=== PATIENT | female | born 1985 | race Caucasian/White ===

== ENCOUNTER 2016-09-22 20:07 | Emergency (ER) | payer MEDICAID ==
[2016-09-22] MEDS ORDERED: SODIUM CHLORIDE 0.9% 1,000 ML IV ONE (21:51)
[2016-09-22] MEDS ORDERED: cefTRIAXone 1 GM in SODIUM CHLORIDE 0.9% MINIBAG 100 ML IV STA (21:52)
[2016-09-22] MEDS ORDERED: KETOROLAC 60 MG/2 ML VIAL IVP STA (21:52)
[2016-09-22] MEDS ORDERED: ONDANSETRON 4 MG/2 ML VIAL IVP STA (21:52)
[2016-09-22] MEDS ORDERED: ONDANSETRON 4 MG/2 ML VIAL ONE (22:01)
[2016-09-22] MEDS ORDERED: cefTRIAXone 1 GM VIAL ONE (22:01)
[2016-09-22] MEDS ORDERED: KETOROLAC 30 MG/ML VIAL ONE (22:01)
[2016-09-22] MEDS ORDERED: HYDROcod/ACET 5/325 Prepack 6 PO STA (23:14)
[2016-09-22] MEDS ORDERED: HYDROcod/ACET 5/325 Prepack 6 PO ONE (23:30)
== END 2016-09-22 23:40 | disposition home or self-care (01) ==
DX: N30.01 Acute cystitis with hematuria (principal); R11.2 Nausea with vomiting, unspecified

== ENCOUNTER 2017-10-02 11:35 | Emergency (ER) | payer MEDICAID ==
[2017-10-02 12:06] LABS: BILIRUBIN,URINE MODERATE (NEGATIVE); GLUCOSE, URINE (UA) NEGATIVE (NEGATIVE); KETONES,URINE (UA) 15 mg/dL (NEGATIVE); LEUKOCYTE ESTERASE, URINE MODERATE (NEGATIVE); NITRITE,URINE NEGATIVE (NEGATIVE); OCCULT BLOOD,URINE LARGE (NEGATIVE); PH,URINE 5.5 PH (5.0-7.5); PROTEIN,URINE >=300 mg/dL (NEGATIVE); UROBILINOGEN,URINE 0.2 (NORMAL) E.U./dL (NORMAL)
[2017-10-02 12:13] LABS: CLARITY,URINE CLOUDY (CLEAR)
[2017-10-02 12:21] LABS: BACTERIA,URINE Moderate /HPF (None Seen); SQUAMOUS EPITHELIAL CELL,UR FEW Squamous (<= Few)
--- NOTE | 2017-10-02 12:31 | ED Physician Documentation ---
PD HPI ABD PAIN - Stated complaint Stated Complaint: R SIDE PX - Chief complaint Chief Complaint: Abd Pain - History obtained from History obtained from: Patient - History of Present Illness Timing - onset: Last night, Yesterday Timing - details: Gradual onset, Still present, Waxing and waning Quality: Cramping, Aching, Pain Location: RLQ, Suprapubic Radiation: Right flank Improved by: No: Eating Worsened by: Palpation. No: Eating Associated symptoms: Dysuria, Vaginal dc. No: Diarrhea, Constipation, Hematuria , Chest pain Similar symptoms before: Has not had sx before (she thought it was a UTI initially and drinking cranberry juice, but has gotten worse with pain to flank as well.) Recently seen: Not recently seen Review of Systems Constitutional: reports: Myalgias. denies: Fever, Chills Nose: denies: Rhinorrhea / runny nose, Congestion Throat: denies: Sore throat Cardiac: denies: Chest pain / pressure, Palpitations Respiratory: denies: Dyspnea, Cough GI: reports: Abdominal Pain, Nausea. denies: Vomiting, Constipation, Diarrhea : reports: Dysuria, Frequency, Discharge. denies: Vaginal bleeding Skin: denies: Rash Neurologic: reports: Generalized weakness. denies: Focal weakness, Numbness, Altered mental status, Headache PD PAST MEDICAL HISTORY - Past Medical History Cardiovascular: None Respiratory: None Neuro: None Endocrine/Autoimmune: None GI: None : Kidney stones - Past Surgical History Past Surgical History: Yes HEENT: Tonsil/Adenoidectomy - Present Medications Home Medications: Ambulatory Orders Medication Instructions Recorded Confirmed HYDROcod/ACETAM 5/325 [[place] 5/325] 1 - 2 ea PO Q6H PRN #10 tablet 09/22/16 Promethazine [Phenergan] 25 - 50 mg PO Q6H PRN #10 tab 09/22/16 cephALEXin [Cephalexin] 500 mg PO TID #15 tablet 09/22/16 Cephalexin [Keflex] 500 mg PO TID #21 capsule 10/02/17 HYDROcod/ACETAM 5/325 [[place] 5/325] 1 tab PO Q6H PRN #15 tablet 10/02/17 Metronidazole [Flagyl] 500 mg PO BID #14 tablet 10/02/17 Ondansetron HCl [Zofran] 4 mg PO Q6H PRN #20 tablet 10/02/17 - Allergies Allergies/Adverse Reactions: Allergies Allergy/AdvReac Type Severity Reaction Status Date / Time No Known Drug Allergies Allergy Verified 09/22/16 20:16 - Social History Does the pt smoke?: No Smoking Status: Never smoker Does the pt drink ETOH?: No Does the pt have substance abuse?: No - Immunizations Immunizations are current?: Yes - POLST Patient has POLST: No PD ED PE NORMAL - Vitals Vital signs reviewed: Yes - General General: Alert and oriented X 3, Well developed/nourished, Other (appears in pain. ) - HEENT HEENT: Pharynx benign - Neck Neck: Supple, no meningeal sign, No adenopathy - Cardiac Cardiac: RRR, No murmur - Respiratory Respiratory: Clear bilaterally - Abdomen Abdomen: Normal bowel sounds, Soft, Non distended, No organomegaly, Other ( tender lower abd and RLQ area with guarding but no percussion tenderness. Mild left lower tender as well. No referred tenderness from upper abd. ) - Female Female : Other (odorous milky white discharge, without cervicitis nor endocervical discharge. ) - Rectal Rectal: Deferred - Back Back: No CVA TTP - Derm Derm: Normal color, Warm and dry Results - Vitals Vitals: Vital Signs - 24 hr 10/02/17 10/02/17 10/02/17 11:39 14:18 15:56 Temperature 36.6 C 35.6 C L Heart Rate 103 H 72 91 Respiratory 18 12 17 Rate Blood Pressure 121/70 112/76 132/82 H O2 Saturation 97 98 96 Oxygen O2 Source Room air - Labs Labs: Microbiology 10/02/17 15:15 Wet Prep - Final Genital - Cervix Laboratory Tests 10/02/17 10/02/17 10/02/17 11:59 11:59 12:00 WBC 8.5 RBC 4.32 Hgb 14.7 Hct 42.5 MCV 98.2 MCH 33.9 H MCHC 34.5 RDW 13.9 Plt Count 177 MPV 10.5 Neut # 5.8 Lymph # 1.9 [place] # 0.7 Eos # 0.1 Baso # 0.0 Absolute Nucleated RBC 0.00 Nucleated RBC % 0.0 Manual Slide Review Indicated Platelet Estimate NORMAL (130-450,000) Platelet Morphology 1+ GIANT PLATELETS RBC Morph Micro Appear 1+ STOMATOCYTES Sodium Potassium Chloride Carbon Dioxide Anion Gap BUN Creatinine Estimated GFR (MDRD) Glucose Calcium Total Bilirubin AST ALT Alkaline Phosphatase Total Protein Albumin Globulin Albumin/Globulin Ratio Lipase Urine Color DARK YELLOW Urine Clarity CLOUDY Urine pH 5.5 Ur Specific [place] >=1.030 H >=1.030 H Urine Protein >=300 H Urine Glucose (UA) NEGATIVE Urine Ketones 15 H Urine Occult Blood LARGE H Urine Nitrite NEGATIVE Urine Bilirubin MODERATE H Urine Urobilinogen 0.2 (NORMAL) Ur Leukocyte Esterase MODERATE H Urine RBC 11-25 H Urine WBC >25 H Ur Squamous Epith Cells FEW Squamous Urine Bacteria Moderate H Ur Microscopic Review INDICATED Urine HCG, Qual NEGATIVE 10/02/17 12:00 WBC RBC Hgb Hct MCV MCH MCHC RDW Plt Count MPV Neut # Lymph # [place] # Eos # Baso # Absolute Nucleated RBC Nucleated RBC % Manual Slide Review Platelet Estimate Platelet Morphology RBC Morph Micro Appear Sodium 135 Potassium 2.8 L Chloride 101 Carbon Dioxide 26 Anion Gap 8.0 BUN 12 Creatinine 0.7 Estimated GFR (MDRD) 98 Glucose 111 H Calcium 9.0 Total Bilirubin 0.9 AST 37 ALT 33 Alkaline Phosphatase 85 Total Protein 7.3 Albumin 4.0 Globulin 3.3 Albumin/Globulin Ratio 1.2 Lipase 20 L Urine Color Urine Clarity Urine pH Ur Specific [place] Urine Protein Urine Glucose (UA) Urine Ketones Urine Occult Blood Urine Nitrite Urine Bilirubin Urine Urobilinogen Ur Leukocyte Esterase Urine RBC Urine WBC Ur Squamous Epith Cells Urine Bacteria Ur Microscopic Review Urine HCG, Qual - Rads (name of study) abd CT Radiology: Prelim report reviewed (similar/stable appearance right staghorn calculus without hydronephrosis. No acute findings. ) PD MEDICAL DECISION MAKING - ED course Complexity details: reviewed results, considered differential (does have UTI but with history of stones and pain is more to right, so concern for infected stone. Got CT. Also with vaginal discharge by ROS, so will check that as well. ) , d/w patient Departure - Departure Disposition: 01 Home, Self Care Clinical Impression: Abdominal pain Qualifiers: Abdominal location: right lower quadrant Qualified Code(s): R10.31 - Right lower quadrant pain UTI (urinary tract infection) Qualifiers: Urinary tract infection type: acute pyelonephritis Qualified Code(s): N10 - Acute pyelonephritis Vaginitis Qualifiers: Chronicity: acute Qualified Code(s): N76.0 - Acute vaginitis Condition: Stable Record reviewed to determine appropriate education?: Yes Instructions: Abdominal Pain, ED Kidney Infec Female Follow-Up: Celine Munguia ARNP [Primary Care Provider] - Prescriptions: Cephalexin [Keflex] 500 mg PO TID #21 capsule HYDROcod/ACETAM 5/325 [[place] 5/325] 1 tab PO Q6H PRN #15 tablet PRN Reason: Pain Metronidazole [Flagyl] 500 mg PO BID #14 tablet Ondansetron HCl [Zofran] 4 mg PO Q6H PRN #20 tablet PRN Reason: Nausea / Vomiting Comments: The CT scan did not show an obvious cause of the pain. Your urine does show signs of infection significantly enough that it is likely the bladder and kidney and that is what is causing the pain. He has some mild vaginitis but I do not think that is enough to be causing your discomfort. Drink lots of fluids. Use Tylenol or ibuprofen if needed for pains. Add ondansetron if needed for nausea and hydrocodone if needed for worse pain. Use the Keflex for the bladder and kidney infection. We will also start you on metronidazole for the vaginitis. Recheck if not improving over the next couple of days. Cultures for the UTI and vaginal swabs will result in 2-3 days. Discharge Date/Time: 10/02/17 16:01
[2017-10-02] MEDS ORDERED: ONDANSETRON 4 MG/2 ML VIAL IVP STA (12:45)
[2017-10-02] MEDS ORDERED: SODIUM CHLORIDE 0.9% 1,000 ML IV ONE (12:45)
[2017-10-02] MEDS ORDERED: HYDROmorphone 1 MG/ML CARPUJECT IVP STA ×3 (12:46→15:23)
[2017-10-02] MEDS ORDERED: ACETAMINOPHEN 1,000 MG/100 ML 100 ML IV STA (12:49)
[2017-10-02 12:56] LABS: BASOPHILS % (AUTO) 0.4 %; EOSINOPHILS # (AUTO) 0.1 10^3/uL (0.0-0.7); EOSINOPHILS % (AUTO) 0.6 %; HGB - HEMOGLOBIN 14.7 g/dL (12.0-16.0); LYMPHOCYTES # (AUTO) 1.9 10^3/uL (1.5-3.5); LYMPHOCYTES % (AUTO) 22.1 %; MEAN CORPUSCULAR HEMOGLOBIN 33.9 pg (27.0-31.0); MEAN CORPUSCULAR HGB CONC 34.5 g/dL (32.0-36.0); MEAN CORPUSCULAR VOLUME 98.2 fL (81.0-99.0); MEAN PLATELET VOLUME 10.5 fL (7.9-10.8); MONOCYTES # (AUTO) 0.7 10^3/uL (0.0-1.0); MONOCYTES % (AUTO) 7.9 %; NEUTROPHILS # (AUTO) 5.8 10^3/uL (1.5-6.6); PLT - PLATELET COUNT 177 10^3/uL (130-450); RED BLOOD COUNT 4.32 10^6/uL (4.20-5.40); RED CELL DISTRIBUTION WIDTH 13.9 % (12.0-15.0); WHITE BLOOD COUNT 8.5 x10^3/uL (4.8-10.8)
[2017-10-02 13:04] LABS: ALBUMIN/GLOBULIN RATIO 1.2 (1.0-2.2); BILIRUBIN,TOTAL 0.9 mg/dL (0.2-1.0); CREATININE 0.7 mg/dL (0.4-1.0); TOTAL PROTEIN 7.3 g/dL (6.7-8.2)
[2017-10-02 13:07] LABS: HCG UR QUAL NEGATIVE
[2017-10-02 13:13] LABS: PLATELET MORPHOLOGY 1+ GIANT PLATELETS (NORMAL)
[2017-10-02 13:14] LABS: PLATELET ESTIMATE, MANUAL NORMAL (130-450,000) (NORMAL); RBC MORPHOLOGY (MULTIPLE) 1+ STOMATOCYTES (NORMAL)
[2017-10-02] MEDS ORDERED: cefTRIAXone 1 GM VIAL IVP STA (13:30)
--- NOTE | 2017-10-02 13:55 | CT Report ---
EXAM: CT ABDOMEN AND PELVIS (CT KUB) EXAM DATE: 10/02/2017 01:28 PM. CLINICAL HISTORY: Right abd/flank pain onset yesterday; has UTI on UA. COMPARISONS: 05/12/2016. TECHNIQUE: Routine axial helical CT imaging was performed through the abdomen and pelvis without IV c ontrast. Reconstructions: Coronal and sagittal. In accordance with CT protocol optimization, one or more of the following dose reduction techniques w ere utilized for this exam: automated exposure control, adjustment of mA and/or KV based on patient s ize, or use of iterative reconstructive technique. FINDINGS: Lung Bases: 6 mm nodule along the left major fissure is stable, most compatible with a lymph node. No acute abnormalities. Right Kidney/Ureter: Large central, pelvic calcification with mild staghorn configuration has increas ed, maximum coronal dimension 2.4 cm, previously 2 cm. There are 3 separate nonobstructing calculi wi thin the lower pole, mildly increased. Focal area of decreased density within the central upper kidne y measures up to approximately 2.6 cm and is without gross change and suggests parapelvic cysts versu s upper pole caliectasis. Otherwise, there is no aniya hydronephrosis. The proximal ureter is slightl y prominent with minimal periureteral and peripelvic stranding but the pattern is without significant change. Diffuse ureteral dilatation is not confirmed. Subtle 1-2 mm calcification in the region of t he distalmost right ureter and UVJ is demonstrated on the axial series, image 21, coronal image 48 an d sagittal image 69. This is not definitely present previously. This could represent a distal uretera l calculus. A right-sided calculus projecting below that level is unchanged and consistent with a phl ebolith. A calculus projecting more superiorly (axial image 113) was present previously and likely re presents a phlebolith. Left Kidney/Ureter: 1-2 mm nonobstructing mid renal calculus, not definite present previously. No hyd ronephrosis, hydroureter or perinephric stranding. Other Solid Organs: Prominent right hepatic lobe again demonstrated, length 22.5 cm. This likely repr esents a Olivia's lobe (normal variant). Otherwise, noncontrast images of the solid organs are grossl y unremarkable. Gallbladder/Bile Ducts: Subtle layering slight increased density within the gallbladder suggest hussein lithiasis, versus sludge. No surrounding inflammation, gallbladder dilatation or aniya biliary ductal dilatation. Peritoneal Cavity: No free fluid, free air or aniya adenopathy. Bowel is grossly unremarkable. Pelvic Organs: No bladder stones or wall thickening. Noncontrast images of the visualized pelvic orga ns are unremarkable apart from an IUD within the uterus. Vasculature: Unremarkable. Other: None. IMPRESSION: 1. Right nephrolithiasis including a 2.3 cm staghorn type calculus, mildly increased. 2. Central right renal upper pole hypodensity appears similar and may represent parapelvic cysts, subha jasper upper pole caliectasis. Otherwise, no definite hydronephrosis although there is a stable pattern of very mild proximal ureteral prominence and minimal periureteral and peripelvic stranding. 3. 1-2 mm calculus in the region of the distal right ureter and UVJ could represent a distal calculus although substantial diffuse right hydroureteronephrosis is not confirmed. 4. If further evaluation of these findings were indicated, CT urography could be performed. 5. Single tiny nonobstructing left intrarenal calculus. 6. IUD within the uterus. [facility] Referring Provider Line: [phone] SITE ID: [id number]
[2017-10-02] MEDS ORDERED: KETOROLAC 60 MG/2 ML VIAL IVP STA (14:26)
[2017-10-02] MEDS ORDERED: POTASSIUM BICARB 25 MEQ TABLET PO STA (14:26)
[2017-10-02] MEDS: metroNIDAZOLE 250 MG TABLET PO STA ×2 (15:32→15:34)
[2017-10-02 15:57] VITALS: BP 132/82
== END 2017-10-02 16:01 | disposition home or self-care (01) ==
LOC: ED 11:35
DX: N10 Acute pyelonephritis (principal); N76.0 Acute vaginitis; Z87.442 Personal history of urinary calculi
CPT/HCPCS: 36415; 74176; 80053; 81001; 81025; 83690; 85025; 87210; 87491; 87591; 96365; 96375; 96376; 99284; A9270; J0131; J1170; 81003

== ENCOUNTER 2017-10-18 19:36 | Emergency (ER) | payer MEDICAID ==
--- NOTE | 2017-10-18 20:31 | ED Physician Documentation ---
PD HPI ABD PAIN - Stated complaint Stated Complaint: RT SIDE PX - Chief complaint Chief Complaint: Abd Pain - History obtained from History obtained from: Patient - History of Present Illness Timing - onset: Enter time (12:00 (noon)), Today Timing - duration: Hours Timing - details: Abrupt onset, Waxing and waning Pain level now: 10 Quality: Pain Location: RUQ, RLQ Radiation: Right flank Improved by: Laying still Worsened by: Moving Associated symptoms: No: Fever, Nausea, Vomiting Similar symptoms before: Diagnosis (vaginitis, UTI/pyelonephritis) Recently seen: Emergency Dept (T+R last month for similar symptoms, although these are worse) - Additional information Additional information: c/o right-sided abd. pain radiating to right flank since noon today, worse with movement and palpation. She completed courses of flagyl and keflex after T+R last month from this ED for similar, although less intense, symptoms. Review of Systems Constitutional: denies: Fever, Chills, Sweats Cardiac: reports: Reviewed and negative Respiratory: reports: Reviewed and negative GI: reports: Abdominal Pain, Nausea. denies: Vomiting, Constipation, Diarrhea : denies: Dysuria, Frequency, Hematuria Musculoskeletal: denies: Back pain PD PAST MEDICAL HISTORY - Past Medical History Cardiovascular: None Respiratory: None Neuro: None Endocrine/Autoimmune: None GI: None : Kidney stones - Past Surgical History Past Surgical History: Yes HEENT: Tonsil/Adenoidectomy - Present Medications Home Medications: Ambulatory Orders Medication Instructions Recorded Confirmed HYDROcod/ACETAM 5/325 [[place] 5/325] 1 - 2 ea PO Q6H PRN #10 tablet 09/22/16 Promethazine [Phenergan] 25 - 50 mg PO Q6H PRN #10 tab 09/22/16 cephALEXin [Cephalexin] 500 mg PO TID #15 tablet 09/22/16 Cephalexin [Keflex] 500 mg PO TID #21 capsule 10/02/17 HYDROcod/ACETAM 5/325 [[place] 5/325] 1 tab PO Q6H PRN #15 tablet 10/02/17 Metronidazole [Flagyl] 500 mg PO BID #14 tablet 10/02/17 Ondansetron HCl [Zofran] 4 mg PO Q6H PRN #20 tablet 10/02/17 Ciprofloxacin HCl [Cipro] 500 mg PO BID #9 tablet 10/18/17 Hydrocodone/Acetaminophen 1 - 2 each PO Q6HR PRN #14 tablet 10/18/17 [Hydrocodon-Acetaminophen 5-325] - Allergies Allergies/Adverse Reactions: Allergies Allergy/AdvReac Type Severity Reaction Status Date / Time No Known Drug Allergies Allergy Verified 10/18/17 19:48 - Social History Does the pt smoke?: No Smoking Status: Never smoker Does the pt drink ETOH?: No Does the pt have substance abuse?: No - Immunizations Immunizations are current?: Yes - POLST Patient has POLST: No PD ED PE NORMAL - Vitals Vital signs reviewed: Yes - General General: Alert and oriented X 3, Well developed/nourished, Other (appears to be in mild-moderate painful distress) - HEENT HEENT: Moist mucous membranes - Neck Neck: Supple, no meningeal sign - Cardiac Cardiac: RRR, No murmur - Respiratory Respiratory: No respiratory distress, Clear bilaterally - Abdomen Abdomen: Soft, Non tender, Non distended - Back Back: Other (mild right CVA tenderness) - Derm Derm: Normal color, No rash Results - Vitals Vitals: Vital Signs - 24 hr 10/18/17 10/18/17 10/18/17 19:44 21:05 21:51 Temperature 36.3 C L 37.1 C Heart Rate 105 H 82 93 Respiratory 18 18 16 Rate Blood Pressure 128/91 H 130/97 H 122/73 O2 Saturation 100 98 100 10/18/17 10/18/17 22:30 23:31 Temperature Heart Rate 96 74 Respiratory 16 18 Rate Blood Pressure 115/81 H 120/65 O2 Saturation 99 99 Oxygen O2 Source Room air - Labs Labs: Laboratory Tests 10/18/17 10/18/17 10/18/17 20:43 20:43 20:43 WBC 12.5 H RBC 4.64 Hgb 15.0 Hct 45.2 MCV 97.4 MCH 32.3 H MCHC 33.1 RDW 13.3 Plt Count 229 MPV 10.2 Neut # 10.5 H Lymph # 1.2 L [place] # 0.7 Eos # 0.0 Baso # 0.0 Absolute Nucleated RBC 0.00 Nucleated RBC % 0.0 Manual Slide Review Indicated WBC Morphology NORMAL APPEARANCE Platelet Estimate NORMAL (130-450,000) Platelet Morphology 1+ LARGE PLATELETS RBC Morph Micro Appear NORMAL APPEARANCE Sodium 135 Potassium 3.7 Chloride 101 Carbon Dioxide 24 Anion Gap 10.0 BUN 16 Creatinine 0.9 Estimated GFR (MDRD) 74 L Glucose 114 H Calcium 9.5 Total Bilirubin 0.3 AST 22 ALT 21 Alkaline Phosphatase 85 Total Protein 8.0 Albumin 4.8 Globulin 3.2 Albumin/Globulin Ratio 1.5 Lipase 18 L Urine Color DARK YELLOW Urine Clarity HAZY Urine pH 6.0 Ur Specific [place] >=1.030 H Urine Protein 100 H Urine Glucose (UA) NEGATIVE Urine Ketones 15 H Urine Occult Blood LARGE H Urine Nitrite NEGATIVE Urine Bilirubin SMALL H Urine Urobilinogen 0.2 (NORMAL) Ur Leukocyte Esterase TRACE H Urine RBC TNTC H Urine WBC >25 H Ur Squamous Epith Cells FEW Squamous Urine Bacteria Few Urine Mucus Marked Strands Ur Microscopic Review INDICATED Urine Culture Comments INDICATED Urine HCG, Qual NEGATIVE - Rads (name of study) CT A/P Radiology: Prelim report reviewed, See rad report PD MEDICAL DECISION MAKING - ED course Complexity details: reviewed old records, reviewed results, re-evaluated patient , considered differential, d/w patient ED course: On reevaluation, patient appeared comfortable and reported good improvement of her pain, although still with some residual discomfort. Departure - Departure Disposition: 01 Home, Self Care Clinical Impression: Urinary tract infection Condition: Good Instructions: ED UTI Cystitis Female Follow-Up: Celine Munguia ARNP [Primary Care Provider] - Within 3 Days Prescriptions: Hydrocodone/Acetaminophen [Hydrocodon-Acetaminophen 5-325] 1 - 2 each PO Q6HR PRN #14 tablet PRN Reason: Pain Ciprofloxacin HCl [Cipro] 500 mg PO BID #9 tablet Discharge Date/Time: 10/18/17 23:32
[2017-10-18 20:49] LABS: BASOPHILS % (AUTO) 0.3 %; EOSINOPHILS % (AUTO) 0.2 %; LYMPHOCYTES # (AUTO) 1.2 10^3/uL (1.5-3.5); LYMPHOCYTES % (AUTO) 9.7 %; MEAN CORPUSCULAR HEMOGLOBIN 32.3 pg (27.0-31.0); MEAN CORPUSCULAR HGB CONC 33.1 g/dL (32.0-36.0); MEAN CORPUSCULAR VOLUME 97.4 fL (81.0-99.0); MEAN PLATELET VOLUME 10.2 fL (7.9-10.8); MONOCYTES # (AUTO) 0.7 10^3/uL (0.0-1.0); MONOCYTES % (AUTO) 5.4 %; NEUTROPHILS # (AUTO) 10.5 10^3/uL (1.5-6.6); NEUTROPHILS % (AUTO) 84.4 %; PLT - PLATELET COUNT 229 10^3/uL (130-450); RED BLOOD COUNT 4.64 10^6/uL (4.20-5.40); RED CELL DISTRIBUTION WIDTH 13.3 % (12.0-15.0); WHITE BLOOD COUNT 12.5 x10^3/uL (4.8-10.8)
[2017-10-18] MEDS ORDERED: SODIUM CHLORIDE 0.9% 1,000 ML IV STA (20:55)
[2017-10-18] MEDS ORDERED: KETOROLAC 60 MG/2 ML VIAL IVP STA (20:55)
[2017-10-18 20:56] LABS: GLUCOSE, URINE (UA) NEGATIVE (NEGATIVE); KETONES,URINE (UA) 15 mg/dL (NEGATIVE); LEUKOCYTE ESTERASE, URINE TRACE (NEGATIVE); NITRITE,URINE NEGATIVE (NEGATIVE); OCCULT BLOOD,URINE LARGE (NEGATIVE); PROTEIN,URINE 100 mg/dL (NEGATIVE); UROBILINOGEN,URINE 0.2 (NORMAL) E.U./dL (NORMAL)
[2017-10-18 21:00] LABS: ALBUMIN 4.8 g/dL (3.2-5.5); ALBUMIN/GLOBULIN RATIO 1.5 (1.0-2.2); BILIRUBIN,TOTAL 0.3 mg/dL (0.2-1.0); CALCIUM 9.5 mg/dL (8.5-10.3); CREATININE 0.9 mg/dL (0.4-1.0)
[2017-10-18 21:03] LABS: BILIRUBIN,URINE SMALL (NEGATIVE); CLARITY,URINE HAZY (CLEAR); HCG UR QUAL NEGATIVE; ICTOTEST,URINE POSITIVE
[2017-10-18] MEDS ORDERED: IOPAMIDOL-300 100 ML VIAL ONE (21:10)
[2017-10-18 21:15] LABS: BACTERIA,URINE Few /HPF (None Seen); MUCUS,URINE Marked Strands; RBC,URINE TNTC /HPF (0-5); SQUAMOUS EPITHELIAL CELL,UR FEW Squamous (<= Few)
[2017-10-18] MEDS ORDERED: IOPAMIDOL-300 100 ML VIAL IVP ONE (21:28)
[2017-10-18 21:29] LABS: PLATELET ESTIMATE, MANUAL NORMAL (130-450,000) (NORMAL); RBC MORPHOLOGY (MULTIPLE) NORMAL APPEARANCE (NORMAL)
--- NOTE | 2017-10-18 22:14 | CT Report ---
EXAM: CT ABDOMEN AND PELVIS EXAM DATE: 10/18/2017 09:42 PM. CLINICAL HISTORY: Right-sided abdomen pain. COMPARISONS: 10/02/2017. TECHNIQUE: Routine helical CT imaging was performed through the abdomen and pelvis. IV contrast: 100 cc of Isovue-300 . Enteric contrast: No. Reconstructions: Coronal and sagittal. In accordance with CT protocol optimization, one or more of the following dose reduction techniques w ere utilized for this exam: automated exposure control, adjustment of mA and/or KV based on patient s ize, or use of iterative reconstructive technique. FINDINGS: Lung Bases: Unremarkable. Liver: Normal. No masses. Gallbladder/Bile Ducts: Unremarkable. Spleen: Normal. Pancreas: Normal. Adrenal Glands: Normal. Kidneys: Unremarkable left kidney. Stable right staghorn calculus with prominent right renal pelvis a nd calyces and mildly dilated upper ureter. No ureteral stones on either side. Peritoneal Cavity/Bowel: Normal. No free fluid, free air or adenopathy. No masses or acute inflammato ry process. The appendix is well visualized and normal. Pelvic Organs: IUD noted, otherwise unremarkable reproductive organs and bladder. Pelvic phleboliths. Vasculature: No aneurysms or other significant abnormality. Bones: No significant abnormality. Other: Small fat-containing umbilical hernia noted. IMPRESSION: 1. No ureteral stones. 2. Stable right staghorn calculus and lower pole calyceal stones, with prominent right renal pelvis, calyces, and upper ureter. [facility] Referring Provider Line: [phone] SITE ID: [id number]
[2017-10-18] MEDS ORDERED: CIPROFLOXACIN 250 MG TABLET PO STA (23:19)
[2017-10-18] MEDS ORDERED: HYDROcod/ACET 5/325 Prepack 4 PO STA (23:19)
[2017-10-18 23:32] VITALS: BP 120/65
== END 2017-10-18 23:32 | disposition home or self-care (01) ==
LOC: ED 19:36
DX: N39.0 Urinary tract infection, site not specified (principal)
CPT/HCPCS: 36415; 74177; 80053; 81001; 81025; 83690; 85025; 87086; 96361; 96374; 99283; 99284; A9270; Q9967; 81003

== ENCOUNTER 2017-11-27 16:04 | Emergency (ER) | payer MEDICAID ==
[2017-11-27 16:38] LABS: BILIRUBIN,URINE NEGATIVE (NEGATIVE); GLUCOSE, URINE (UA) NEGATIVE (NEGATIVE); KETONES,URINE (UA) 15 mg/dL (NEGATIVE); LEUKOCYTE ESTERASE, URINE NEGATIVE (NEGATIVE); NITRITE,URINE NEGATIVE (NEGATIVE); OCCULT BLOOD,URINE LARGE (NEGATIVE); PH,URINE 5.5 PH (5.0-7.5); PROTEIN,URINE 100 mg/dL (NEGATIVE); UROBILINOGEN,URINE 0.2 (NORMAL) E.U./dL (NORMAL)
[2017-11-27 16:44] LABS: CLARITY,URINE CLOUDY (CLEAR); HCG UR QUAL NEGATIVE
[2017-11-27 16:45] LABS: ALBUMIN 4.2 g/dL (3.2-5.5); ALBUMIN/GLOBULIN RATIO 1.3 (1.0-2.2); CREATININE 0.7 mg/dL (0.4-1.0); TOTAL PROTEIN 7.4 g/dL (6.7-8.2)
[2017-11-27 16:54] LABS: BASOPHILS % (AUTO) 0.6 %; EOSINOPHILS % (AUTO) 0.2 %; HGB - HEMOGLOBIN 13.7 g/dL (12.0-16.0); LYMPHOCYTES # (AUTO) 1.2 10^3/uL (1.5-3.5); LYMPHOCYTES % (AUTO) 14.9 %; MEAN CORPUSCULAR HEMOGLOBIN 33.7 pg (27.0-31.0); MEAN CORPUSCULAR HGB CONC 33.7 g/dL (32.0-36.0); MEAN CORPUSCULAR VOLUME 99.9 fL (81.0-99.0); MEAN PLATELET VOLUME 9.7 fL (7.9-10.8); MONOCYTES # (AUTO) 0.4 10^3/uL (0.0-1.0); MONOCYTES % (AUTO) 4.5 %; NEUTROPHILS # (AUTO) 6.3 10^3/uL (1.5-6.6); NEUTROPHILS % (AUTO) 79.8 %; PLT - PLATELET COUNT 196 10^3/uL (130-450); RED BLOOD COUNT 4.08 10^6/uL (4.20-5.40); RED CELL DISTRIBUTION WIDTH 12.8 % (12.0-15.0); WHITE BLOOD COUNT 7.9 x10^3/uL (4.8-10.8)
[2017-11-27 16:57] LABS: RBC,URINE TNTC /HPF (0-5); SQUAMOUS EPITHELIAL CELL,UR FEW Squamous (<= Few)
[2017-11-27 16:58] LABS: BACTERIA,URINE Many /HPF (None Seen); YEAST,URINE PRESENT
[2017-11-27 17:01] LABS: PLATELET ESTIMATE, MANUAL NORMAL (130-450,000) (NORMAL); RBC MORPHOLOGY (MULTIPLE) NORMAL APPEARANCE (NORMAL)
[2017-11-27] MEDS ORDERED: ONDANSETRON 4 MG/2 ML VIAL IVP STA (17:27)
[2017-11-27] MEDS ORDERED: KETOROLAC 60 MG/2 ML VIAL IVP STA (17:27)
[2017-11-27] MEDS ORDERED: SODIUM CHLORIDE 0.9% 1,000 ML IV ONE (17:27)
[2017-11-27] MEDS ORDERED: HYDROmorphone 2 MG/ML VIAL IVP STA ×2 (17:27→18:30)
[2017-11-27] MEDS ORDERED: cefTRIAXone 1 GM in SODIUM CHLORIDE 0.9% MINIBAG 100 ML IV STA (17:28)
--- NOTE | 2017-11-27 17:29 | ED Physician Documentation ---
PD HPI ABD PAIN - Stated complaint Stated Complaint: R ABD PX - Chief complaint Chief Complaint: Abd Pain - History obtained from History obtained from: Patient - History of Present Illness Timing - onset: Today (31-year-old woman with history of renal colic, diagnosed with staghorn calculus about a month and a half ago. Has not seen a urologist yet. Was doing fine after last course of antibiotics until today and now she has severe sharp right-sided abdominal pain without fevers. She is nauseous.) Review of Systems Constitutional: denies: Fever, Chills GI: reports: Abdominal Pain, Nausea. denies: Vomiting, Constipation, Diarrhea, Hematemesis, Bloody / black stool : reports: Dysuria, Frequency PD PAST MEDICAL HISTORY - Past Medical History Cardiovascular: None Respiratory: None Endocrine/Autoimmune: None GI: None : Kidney stones - Past Surgical History Past Surgical History: Yes HEENT: Tonsil/Adenoidectomy - Present Medications Home Medications: Ambulatory Orders Medication Instructions Recorded Confirmed Ondansetron HCl [Zofran] 4 mg PO Q6H PRN #20 tablet 10/02/17 Ciprofloxacin HCl [Cipro] 500 mg PO BID #14 tablet 11/27/17 Ondansetron HCl [Zofran] 4 mg PO Q6H PRN #10 tablet 11/27/17 Oxycodone HCl/Acetaminophen 1 - 2 tab PO Q4H PRN #15 tablet 11/27/17 [Percocet 5-325 mg Tablet] - Allergies Allergies/Adverse Reactions: Allergies Allergy/AdvReac Type Severity Reaction Status Date / Time No Known Drug Allergies Allergy Verified 11/27/17 16:16 - Social History Does the pt smoke?: No Smoking Status: Never smoker Does the pt drink ETOH?: No Does the pt have substance abuse?: No - Immunizations Immunizations are current?: Yes - POLST Patient has POLST: No PD ED PE NORMAL - Vitals Vital signs reviewed: Yes - General General: Alert and oriented X 3, Other (Appears uncomfortable) - Abdomen Abdomen: Normal bowel sounds, Soft, Non tender - Back Back: No CVA TTP, No spinal TTP - Neuro Neuro: Alert and oriented X 3, Normal speech Results - Vitals Vitals: Vital Signs - 24 hr 11/27/17 11/27/17 16:13 18:55 Temperature 36.5 C Heart Rate 96 90 Respiratory 18 16 Rate Blood Pressure 134/83 H 118/78 O2 Saturation 100 98 Oxygen O2 Source Room air - Labs Labs: Laboratory Tests 11/27/17 11/27/17 11/27/17 16:29 16:29 16:33 WBC 7.9 RBC 4.08 L Hgb 13.7 Hct 40.7 MCV 99.9 H MCH 33.7 H MCHC 33.7 RDW 12.8 Plt Count 196 MPV 9.7 Neut # (Auto) 6.3 Lymph # (Auto) 1.2 L [place] # (Auto) 0.4 Eos # (Auto) 0.0 Baso # (Auto) 0.0 Absolute Nucleated RBC 0.00 Nucleated RBC % 0.0 Manual Slide Review Indicated Platelet Estimate NORMAL (130-450,000) Platelet Morphology RARE GIANT PLATELETS RBC Morph Micro Appear NORMAL APPEARANCE Sodium 139 Potassium 3.4 L Chloride 103 Carbon Dioxide 25 Anion Gap 11.0 BUN 15 Creatinine 0.7 Estimated GFR (MDRD) 98 Glucose 102 H Calcium 9.0 Total Bilirubin 1.0 AST 19 ALT 19 Alkaline Phosphatase 51 Total Protein 7.4 Albumin 4.2 Globulin 3.2 Albumin/Globulin Ratio 1.3 Lipase 23 Urine Color YELLOW Urine Clarity CLOUDY Urine pH 5.5 Ur Specific [place] >=1.030 H Urine Protein 100 H Urine Glucose (UA) NEGATIVE Urine Ketones 15 H Urine Occult Blood LARGE H Urine Nitrite NEGATIVE Urine Bilirubin NEGATIVE Urine Urobilinogen 0.2 (NORMAL) Ur Leukocyte Esterase NEGATIVE Urine RBC TNTC H Urine WBC >25 H Ur Squamous Epith Cells FEW Squamous Urine Bacteria Many H Urine Yeast PRESENT Ur Microscopic Review INDICATED Urine Culture Comments INDICATED Urine HCG, Qual NEGATIVE PD MEDICAL DECISION MAKING - ED course ED course: 31-year-old woman with known staghorn calculus of the right kidney with acute onset pain today. The urinalysis is positive but given the sudden onset of pain , and previous cultures have been negative, this would suggest that the results are from pyuria from the stone itself as opposed to actual pyelonephritis related to the kidney stone. This is corroborated by lack of fever and white count. She was feeling much better after IV meds she was given a copy of the prior CAT scan on CD to aid in follow-up. - Sepsis Event Vital Signs: Vital Signs - 24 hr 11/27/17 11/27/17 16:13 18:55 Temperature 36.5 C Heart Rate 96 90 Respiratory 18 16 Rate Blood Pressure 134/83 H 118/78 O2 Saturation 100 98 Oxygen O2 Source Room air Departure - Departure Disposition: 01 Home, Self Care Clinical Impression: Staghorn renal calculus Condition: Good Record reviewed to determine appropriate education?: Yes Instructions: ED Stone Renal W Colic Prescriptions: Ciprofloxacin HCl [Cipro] 500 mg PO BID #14 tablet Ondansetron HCl [Zofran] 4 mg PO Q6H PRN #10 tablet PRN Reason: Nausea / Vomiting Oxycodone HCl/Acetaminophen [Percocet 5-325 mg Tablet] 1 - 2 tab PO Q4H PRN #15 tablet PRN Reason: Pain Comments: FOLLOWUP WITH UROLOGY DISCUSSED, TAKE COPY OF PRIOR CT ON CD WITH YOU WE WILL CULTURE YOUR URINE. PREVIOUS CULTURES WERE NEGATIVE SO INFECTION IS IN QUESTION, BUT TODAY'S URINAYLSIS IS AGIN POSITIVE, BUT THAT CAN JUST BE FROM INFLAMMATION FROM THE STONE ITSELF. YOUR BLOOD WORK WAS NORMAL WITH NORMAL WHITE COUNT SO IF INFECTION IS PRESENT NOT TOO SEVERE ANYWAY. Forms: Activity restrictions
[2017-11-27 19:23] VITALS: BP 117/85
== END 2017-11-27 19:29 | disposition home or self-care (01) ==
LOC: ED 16:04
DX: N20.0 Calculus of kidney (principal); Z87.442 Personal history of urinary calculi
CPT/HCPCS: 36415; 80053; 81001; 81025; 83690; 85025; 87086; 96365; 96375; 96376; 99283; 99284; J1170; 81003

== ENCOUNTER 2017-12-17 17:42 | Emergency (ER) | payer MEDICAID ==
[2017-12-17 18:17] LABS: GLUCOSE, URINE (UA) NEGATIVE (NEGATIVE); KETONES,URINE (UA) >=80 mg/dL (NEGATIVE); LEUKOCYTE ESTERASE, URINE SMALL (NEGATIVE); NITRITE,URINE NEGATIVE (NEGATIVE); OCCULT BLOOD,URINE MODERATE (NEGATIVE); PROTEIN,URINE 100 mg/dL (NEGATIVE); UROBILINOGEN,URINE 0.2 (NORMAL) E.U./dL (NORMAL)
[2017-12-17 18:30] LABS: CLARITY,URINE CLEAR (CLEAR)
[2017-12-17 18:31] LABS: BILIRUBIN,URINE NEGATIVE (NEGATIVE); HCG UR QUAL NEGATIVE; ICTOTEST,URINE NEGATIVE
[2017-12-17 18:43] LABS: BACTERIA,URINE Few /HPF (None Seen); SQUAMOUS EPITHELIAL CELL,UR FEW Squamous (<= Few)
[2017-12-17 18:44] LABS: BASOPHILS % (AUTO) 0.6 %; EOSINOPHILS % (AUTO) 0.2 %; HGB - HEMOGLOBIN 13.6 g/dL (12.0-16.0); LYMPHOCYTES # (AUTO) 1.3 10^3/uL (1.5-3.5); LYMPHOCYTES % (AUTO) 16.4 %; MEAN CORPUSCULAR HEMOGLOBIN 33.9 pg (27.0-31.0); MEAN CORPUSCULAR HGB CONC 33.9 g/dL (32.0-36.0); MEAN CORPUSCULAR VOLUME 100.3 fL (81.0-99.0); MEAN PLATELET VOLUME 10.2 fL (7.9-10.8); MONOCYTES # (AUTO) 0.4 10^3/uL (0.0-1.0); NEUTROPHILS # (AUTO) 6.1 10^3/uL (1.5-6.6); NEUTROPHILS % (AUTO) 77.8 %; PLT - PLATELET COUNT 155 10^3/uL (130-450); RED BLOOD COUNT 4.01 10^6/uL (4.20-5.40); RED CELL DISTRIBUTION WIDTH 13.2 % (12.0-15.0); WHITE BLOOD COUNT 7.8 x10^3/uL (4.8-10.8)
[2017-12-17 18:51] LABS: CALCIUM 9.4 mg/dL (8.5-10.3); CREATININE 0.7 mg/dL (0.4-1.0)
[2017-12-17 18:52] LABS: ALBUMIN 4.5 g/dL (3.2-5.5); ALBUMIN/GLOBULIN RATIO 1.6 (1.0-2.2); TOTAL PROTEIN 7.3 g/dL (6.7-8.2)
[2017-12-17 18:59] LABS: PLATELET ESTIMATE, MANUAL NORMAL (130-450,000) (NORMAL); PLATELET MORPHOLOGY NORMAL APPEARANCE (NORMAL); RBC MORPHOLOGY (MULTIPLE) 1+ MACROCYTOSIS (NORMAL)
--- NOTE | 2017-12-17 19:04 | ED Physician Documentation ---
PD HPI ABD PAIN - Stated complaint Stated Complaint: SIDE PX - Chief complaint Chief Complaint: Abd Pain - History obtained from History obtained from: Patient - History of Present Illness Timing - onset: Today Timing - duration: Hours Timing - details: Abrupt onset, Still present Quality: Aching, Sharp, Pain Location: RLQ Radiation: Right flank Improved by: No: Eating, Laying still Worsened by: No: Eating, Position Associated symptoms: Nausea, Dysuria, Hematuria, Vaginal dc. No: Fever, Hematemesis, Vaginal bleeding Similar symptoms before: Diagnosis (staghorn calculus right kidney. Has been awaiting appt with Urology (referral then appt time has been long, but has appt next Friday, December 23).) Recently seen: Emergency Dept (similar pain and treated with pain meds and had UA showing possible UTI (but culturew was negative).) Review of Systems Constitutional: denies: Fever, Chills, Myalgias Nose: denies: Rhinorrhea / runny nose, Congestion Throat: denies: Sore throat Cardiac: denies: Chest pain / pressure, Palpitations Respiratory: denies: Dyspnea, Cough GI: reports: Abdominal Pain, Nausea. denies: Abdominal Swelling, Constipation, Diarrhea : reports: Dysuria, Discharge (watery to mucous, has had intermittently in the past.). denies: Vaginal bleeding Musculoskeletal: reports: Back pain. denies: Neck pain Neurologic: denies: Generalized weakness, Focal weakness, Numbness, Near syncope Endocrine: denies: Weight loss PD PAST MEDICAL HISTORY - Past Medical History Cardiovascular: None Respiratory: None Endocrine/Autoimmune: None GI: None : Kidney stones - Past Surgical History Past Surgical History: Yes HEENT: Tonsil/Adenoidectomy - Present Medications Home Medications: Ambulatory Orders Medication Instructions Recorded Confirmed Doxycycline Monohydrate 100 mg PO BID #14 tablet 12/17/17 Naproxen 375 mg PO BID #20 tablet 12/17/17 Oxycodone HCl/Acetaminophen 1 each PO Q6H PRN #20 tablet 12/17/17 [Percocet 5-325 mg Tablet] - Allergies Allergies/Adverse Reactions: Allergies Allergy/AdvReac Type Severity Reaction Status Date / Time No Known Drug Allergies Allergy Verified 11/27/17 16:16 - Social History Does the pt smoke?: No Smoking Status: Never smoker Does the pt drink ETOH?: No Does the pt have substance abuse?: No - Immunizations Immunizations are current?: Yes - POLST Patient has POLST: No PD ED PE NORMAL - Vitals Vital signs reviewed: Yes - General General: Alert and oriented X 3, Well developed/nourished, Other (in marked pain right low abd and flank. ) - HEENT HEENT: Pharynx benign - Neck Neck: Supple, no meningeal sign, No adenopathy - Cardiac Cardiac: RRR, No murmur - Respiratory Respiratory: Clear bilaterally - Abdomen Abdomen: Normal bowel sounds, Soft, Non distended, No organomegaly, Other ( tender right abdomen and flank, without guarding nor percussion tenderness. ) - Female Female : Deferred - Rectal Rectal: Deferred - Derm Derm: Normal color, Warm and dry, No rash - Extremities Extremities: No tenderness to palpate, Normal ROM s pain - Neuro Neuro: Alert and oriented X 3, No motor deficit, Normal speech Results - Vitals Vitals: Vital Signs - 24 hr 12/17/17 12/17/17 12/17/17 17:52 19:26 20:09 Temperature 36.5 C Heart Rate 104 H 100 99 Respiratory 18 22 18 Rate Blood Pressure 132/85 H 131/90 H 124/87 H O2 Saturation 98 98 99 12/17/17 12/17/17 20:48 21:17 Temperature 36.5 C Heart Rate 92 88 Respiratory 16 16 Rate Blood Pressure 123/81 H 126/92 H O2 Saturation 98 100 Oxygen O2 Source Room air - Labs Labs: Microbiology 12/17/17 18:03 Urine Culture - Preliminary Urine,Clean Catch CULTURE IN PROGRESS. RESULTS TO FOLLOW. Laboratory Tests 12/17/17 12/17/17 12/17/17 18:03 18:30 18:30 WBC 7.8 RBC 4.01 L Hgb 13.6 Hct 40.2 MCV 100.3 H MCH 33.9 H MCHC 33.9 RDW 13.2 Plt Count 155 MPV 10.2 Neut # (Auto) 6.1 Lymph # (Auto) 1.3 L [place] # (Auto) 0.4 Eos # (Auto) 0.0 Baso # (Auto) 0.0 Absolute Nucleated RBC 0.00 Nucleated RBC % 0.0 Manual Slide Review Indicated WBC Morphology NORMAL APPEARANCE Platelet Estimate NORMAL (130-450,000) Platelet Morphology NORMAL APPEARANCE RBC Morph Micro Appear 1+ MACROCYTOSIS Sodium 137 Potassium 3.5 Chloride 105 Carbon Dioxide 23 Anion Gap 9.0 BUN 12 Creatinine 0.7 Estimated GFR (MDRD) 98 Glucose 99 Calcium 9.4 Total Bilirubin 1.0 AST 19 ALT 14 Alkaline Phosphatase 50 Total Protein 7.3 Albumin 4.5 Globulin 2.8 Albumin/Globulin Ratio 1.6 Lipase 25 Urine Color YELLOW Urine Clarity CLEAR Urine pH 6.0 Ur Specific [place] >=1.030 H Urine Protein 100 H Urine Glucose (UA) NEGATIVE Urine Ketones >=80 H Urine Occult Blood MODERATE H Urine Nitrite NEGATIVE Urine Bilirubin NEGATIVE Urine Urobilinogen 0.2 (NORMAL) Ur Leukocyte Esterase SMALL H Urine RBC 6-10 H Urine WBC >25 H Ur Squamous Epith Cells FEW Squamous Urine Bacteria Few Ur Microscopic Review INDICATED Urine Culture Comments INDICATED Urine HCG, Qual NEGATIVE PD MEDICAL DECISION MAKING - ED course Complexity details: reviewed old records (keying off prior charts with CT showing staghorn calculus and similar pains from it, I did not do any imaging. ) , reviewed results (She does have UA showing likely UTI, though she says she has had vaginal clear discharge similar to the past, and prior records show she had clue cells/BV in September. Deferred pelvic, but would treat with Doxy and await urine culture (the past 2 recent urine cultures have been negative with similar symptoms). ), re-evaluated patient, considered differential, d/w patient - Sepsis Event Vital Signs: Vital Signs - 24 hr 12/17/17 12/17/17 12/17/17 17:52 19:26 20:09 Temperature 36.5 C Heart Rate 104 H 100 99 Respiratory 18 22 18 Rate Blood Pressure 132/85 H 131/90 H 124/87 H O2 Saturation 98 98 99 12/17/17 12/17/17 20:48 21:17 Temperature 36.5 C Heart Rate 92 88 Respiratory 16 16 Rate Blood Pressure 123/81 H 126/92 H O2 Saturation 98 100 Oxygen O2 Source Room air Departure - Departure Disposition: 01 Home, Self Care Clinical Impression: Right sided abdominal pain, Staghorn renal calculus Urinary tract infection Qualifiers: Urinary tract infection type: acute cystitis Hematuria presence: with hematuria Qualified Code(s): N30.01 - Acute cystitis with hematuria Condition: Stable Record reviewed to determine appropriate education?: Yes Instructions: ED UTI Cystitis Female, ED Stone Renal W Colic Follow-Up: Celine Munguia, ADRIAN [Primary Care Provider] - Prescriptions: Doxycycline Monohydrate 100 mg PO BID #14 tablet Naproxen 375 mg PO BID #20 tablet Oxycodone HCl/Acetaminophen [Percocet 5-325 mg Tablet] 1 each PO Q6H PRN #20 tablet PRN Reason: Pain Comments: Drink lots of fluids. Naproxen twice daily for inflammation and pain. Doxycycline twice daily for infection. Use Tylenol or Percocet if needed for pain. Follow up with urology next Friday as planned. Return sooner if worse. Discharge Date/Time: 12/17/17 21:22
[2017-12-17] MEDS ORDERED: KETOROLAC 60 MG/2 ML VIAL IVP STA (19:12)
[2017-12-17] MEDS ORDERED: ONDANSETRON 4 MG/2 ML VIAL IVP STA (19:12)
[2017-12-17] MEDS ORDERED: SODIUM CHLORIDE 0.9% 1,000 ML IV ONE ×2 (19:12→19:13)
[2017-12-17] MEDS ORDERED: DOXYCYCLINE 100 MG TABLET PO STA (19:13)
[2017-12-17] MEDS ORDERED: MORPHINE 10 MG/ML VIAL IVP STA ×2 (19:13→20:24)
[2017-12-17] MEDS ORDERED: DEXAMETHASONE 10 MG/ML VIAL IVP STA (19:13)
[2017-12-17] MEDS ORDERED: LIDOCAINE-MPF 2% 6 ML in SODIUM CHLORIDE 0.9% 50 ML IV STA (20:24)
[2017-12-17] MEDS ORDERED: oxyCODONE/ACET 5/325 Prepack 4 PO STA (20:24)
[2017-12-17 21:18] VITALS: BP 126/92
== END 2017-12-17 21:22 | disposition home or self-care (01) ==
LOC: ED 17:42
DX: N20.0 Calculus of kidney (principal); N30.01 Acute cystitis with hematuria
CPT/HCPCS: 80053; 81001; 81025; 83690; 85025; 87086; 96361; 96374; 96375; 96376; 99284; A9270; J7040; 81003

== ENCOUNTER 2017-12-26 17:58 | Emergency (ER) | payer MEDICAID ==
[2017-12-26] MEDS ORDERED: MORPHINE 10 MG/ML VIAL IVP STA ×2 (18:28→20:36)
[2017-12-26] MEDS ORDERED: SODIUM CHLORIDE 0.9% 1,000 ML IV ONE (18:28)
[2017-12-26] MEDS ORDERED: LIDOCAINE-MPF 2% 6 ML in SODIUM CHLORIDE 0.9% 50 ML IV STA ×2 (18:28→18:42)
[2017-12-26] MEDS ORDERED: DEXAMETHASONE 10 MG/ML VIAL IVP STA (18:28)
[2017-12-26 18:32] LABS: GLUCOSE, URINE (UA) NEGATIVE (NEGATIVE); KETONES,URINE (UA) 40 mg/dL (NEGATIVE); LEUKOCYTE ESTERASE, URINE TRACE (NEGATIVE); NITRITE,URINE NEGATIVE (NEGATIVE); OCCULT BLOOD,URINE LARGE (NEGATIVE); PH,URINE 5.5 PH (5.0-7.5); PROTEIN,URINE 100 mg/dL (NEGATIVE); UROBILINOGEN,URINE 0.2 (NORMAL) E.U./dL (NORMAL)
--- NOTE | 2017-12-26 18:32 | ED Physician Documentation ---
PD HPI ABD PAIN - Stated complaint Stated Complaint: SIDE PX - Chief complaint Chief Complaint: Abd Pain - History obtained from History obtained from: Patient - History of Present Illness Timing - onset: Other (She has a known staghorn calculus of the right kidney, it has been giving her intermittent pain. She is now scheduled for surgery on January 12 but the pain is really been ramping up over the last day.) Review of Systems Constitutional: reports: Reviewed and negative Cardiac: reports: Reviewed and negative Respiratory: reports: Reviewed and negative GI: reports: Reviewed and negative PD PAST MEDICAL HISTORY - Past Medical History Past Medical History: Yes Cardiovascular: None Respiratory: None Endocrine/Autoimmune: None GI: None : Kidney stones - Past Surgical History Past Surgical History: Yes HEENT: Tonsil/Adenoidectomy - Present Medications Home Medications: Ambulatory Orders Medication Instructions Recorded Confirmed Doxycycline Monohydrate 100 mg PO BID #14 tablet 12/17/17 Naproxen 375 mg PO BID #20 tablet 12/17/17 Oxycodone HCl/Acetaminophen 1 each PO Q6H PRN #20 tablet 12/17/17 [Percocet 5-325 mg Tablet] oxyCODONE [Roxicodone] 10 mg PO Q4H PRN #20 tablet 12/26/17 - Allergies Allergies/Adverse Reactions: Allergies Allergy/AdvReac Type Severity Reaction Status Date / Time No Known Drug Allergies Allergy Verified 12/26/17 18:10 - Social History Does the pt smoke?: No Smoking Status: Never smoker Does the pt drink ETOH?: No Does the pt have substance abuse?: No - Immunizations Immunizations are current?: Yes - POLST Patient has POLST: No PD ED PE NORMAL - Vitals Vital signs reviewed: Yes - General General: Alert and oriented X 3, Other (Definitely appears uncomfortable.) - Abdomen Abdomen: Normal bowel sounds, Soft, Non tender - Extremities Extremities: No edema, No calf tenderness / cord - Neuro Neuro: Alert and oriented X 3, Normal speech Results - Vitals Vitals: Vital Signs - 24 hr 12/26/17 12/26/17 12/26/17 18:05 18:54 19:09 Temperature 36.3 C L Heart Rate 102 H 80 82 Respiratory 20 14 15 Rate Blood Pressure 141/84 H 131/99 H 123/89 H O2 Saturation 100 100 100 12/26/17 20:06 Temperature Heart Rate 84 Respiratory 13 Rate Blood Pressure 116/79 O2 Saturation 99 Oxygen O2 Source Room air - Labs Labs: Laboratory Tests 12/26/17 18:25 Urine Color YELLOW Urine Clarity CLOUDY Urine pH 5.5 Ur Specific [place] >=1.030 H Urine Protein 100 H Urine Glucose (UA) NEGATIVE Urine Ketones 40 H Urine Occult Blood LARGE H Urine Nitrite NEGATIVE Urine Bilirubin NEGATIVE Urine Urobilinogen 0.2 (NORMAL) Ur Leukocyte Esterase TRACE H Urine RBC TNTC H Urine WBC >25 H Ur Squamous Epith Cells FEW Squamous Urine Bacteria Many H Urine Mucus Moderate Strands Urine Yeast PRESENT Ur Microscopic Review INDICATED Urine Culture Comments INDICATED Urine HCG, Qual NEGATIVE PD MEDICAL DECISION MAKING - ED course ED course: She has a known staghorn calculus in the right kidney that has been intermittently very painful for her. Note made of the urinalysis, but every urinalysis in this illness so far has had a negative culture, so this is probably an inflammatory reaction. She was given divided doses of medication including lidocaine, Toradol, takes methadone, and divided doses narcotics with significant improvement in her pain. - Sepsis Event Vital Signs: Vital Signs - 24 hr 12/26/17 12/26/17 12/26/17 18:05 18:54 19:09 Temperature 36.3 C L Heart Rate 102 H 80 82 Respiratory 20 14 15 Rate Blood Pressure 141/84 H 131/99 H 123/89 H O2 Saturation 100 100 100 12/26/17 20:06 Temperature Heart Rate 84 Respiratory 13 Rate Blood Pressure 116/79 O2 Saturation 99 Oxygen O2 Source Room air Departure - Departure Disposition: 01 Home, Self Care Clinical Impression: Staghorn renal calculus, Right sided abdominal pain Condition: Good Record reviewed to determine appropriate education?: Yes Instructions: ED Stone Renal W Colic Prescriptions: oxyCODONE [Roxicodone] 10 mg PO Q4H PRN #20 tablet PRN Reason: Pain Comments: FOLLOWUP WITH THE UROLOGIST SCHEDULED. RETURN IF WORSE
[2017-12-26 18:38] LABS: BILIRUBIN,URINE NEGATIVE (NEGATIVE); ICTOTEST,URINE NEGATIVE
[2017-12-26 18:39] LABS: CLARITY,URINE CLOUDY (CLEAR); HCG UR QUAL NEGATIVE
[2017-12-26 18:53] LABS: BACTERIA,URINE Many /HPF (None Seen); MUCUS,URINE Moderate Strands; RBC,URINE TNTC /HPF (0-5); SQUAMOUS EPITHELIAL CELL,UR FEW Squamous (<= Few); YEAST,URINE PRESENT
[2017-12-26] MEDS ORDERED: HYDROmorphone 2 MG/ML VIAL IVP STA (19:21)
[2017-12-26] MEDS ORDERED: KETOROLAC 60 MG/2 ML VIAL IVP STA (19:48)
[2017-12-26 21:11] VITALS: BP 125/89
== END 2017-12-26 21:16 | disposition home or self-care (01) ==
LOC: ED 17:58
DX: N20.0 Calculus of kidney (principal); R10.9 Unspecified abdominal pain
CPT/HCPCS: 81001; 81025; 87086; 96361; 96365; 96375; 96376; 99284; J1170; J7040; 81003

== ENCOUNTER 2019-10-31 14:00 | Emergency (ER) | payer MEDICAID ==
[2019-10-31] MEDS ORDERED: oxyCODONE 5 MG TABLET PO STA (14:15)
[2019-10-31] MEDS ORDERED: IBUPROFEN 800 MG TABLET PO STA (14:15)
[2019-10-31] MEDS ORDERED: PENICILLIN VK 250 MG TABLET PO STA (14:16)
--- NOTE | 2019-10-31 14:17 | ED Physician Documentation ---
PD HPI HEENT - Stated complaint Stated Complaint: MOUTH PX - Chief complaint Chief Complaint: Heent - History obtained from History obtained from: Patient (33-year-old woman has had severe right upper dental pain for the last couple of days. No fevers.) Review of Systems Constitutional: reports: Reviewed and negative Eyes: reports: Reviewed and negative Ears: reports: Reviewed and negative Nose: reports: Reviewed and negative PD PAST MEDICAL HISTORY - Past Medical History Cardiovascular: None Respiratory: None Endocrine/Autoimmune: None GI: None : Kidney stones - Past Surgical History Past Surgical History: Yes HEENT: Tonsil/Adenoidectomy - Present Medications Home Medications: Ambulatory Orders Medication Instructions Recorded Confirmed Doxycycline Monohydrate 100 mg PO BID #14 tablet 12/17/17 Naproxen 375 mg PO BID #20 tablet 12/17/17 Oxycodone HCl/Acetaminophen 1 each PO Q6H PRN #20 tablet 12/17/17 [Percocet 5-325 mg Tablet] oxyCODONE [Roxicodone] 10 mg PO Q4H PRN #20 tablet 12/26/17 Ibuprofen [Motrin] 800 mg PO Q8H PRN #30 tablet 10/31/19 Oxycodone HCl/Acetaminophen 1 - 2 each PO Q6H PRN #14 tablet 10/31/19 [Percocet 5-325 mg Tablet] Penicillin V Potassium 500 mg PO Q6HR #40 tablet 10/31/19 - Allergies Allergies/Adverse Reactions: Allergies Allergy/AdvReac Type Severity Reaction Status Date / Time No Known Drug Allergies Allergy Verified 12/26/17 18:10 - Social History Does the pt smoke?: No Smoking Status: Never smoker Does the pt drink ETOH?: No Does the pt have substance abuse?: No - Immunizations Immunizations are current?: Yes - POLST Patient has POLST: No PD ED PE NORMAL - Vitals Vital signs reviewed: Yes - General General: Alert and oriented X 3, No acute distress - HEENT HEENT: Other (Generally poor dentition with a very tender tooth to the right maxillary premolar. No drainable abscess. No trismus. No facial swelling.) - Neck Neck: Supple, no meningeal sign, No bony TTP Results - Vitals Vitals: Vital Signs - 24 hr 10/31/19 14:07 Temperature 36.7 C Heart Rate 98 Respiratory 16 Rate Blood Pressure 128/85 H O2 Saturation 99 Oxygen O2 Source Room air Departure - Departure Disposition: 01 Home, Self Care Clinical Impression: Pain due to dental caries Condition: Good Record reviewed to determine appropriate education?: Yes Instructions: ED Tooth Pain Prescriptions: Penicillin V Potassium 500 mg PO Q6HR #40 tablet Ibuprofen [Motrin] 800 mg PO Q8H PRN #30 tablet PRN Reason: PAIN &/OR FEVER Oxycodone HCl/Acetaminophen [Percocet 5-325 mg Tablet] 1 - 2 each PO Q6H PRN #14 tablet PRN Reason: pain Comments: It is very important that you follow-up with a dentist. When it comes to dental problems like yours, the emergency department can only offer a short-term solution to your long-term problem. A couple of low cost options for dental care include: [facility] in [place], calls [phone] for an appointment Or [facility] in [place], call [phone] for an appointment. Do not drink or drive while taking narcotic pain medication. Note that many narcotic pain relievers also contain Tylenol/acetaminophen. Please ensure that your total dose of acetaminophen from all sources does not exceed 3 g (3000 mg) per day. You may get constipated while on this medication. Take a stool softener such as Colace twice a day while you are on it. Also add an [id number] laxative such as senna or MiraLAX on any day that you do not have a bowel movement. If you received a narcotic pain medication or sedative while in the emergency department, do not drive for the next 24 hours.
[2019-10-31 14:37] VITALS: BP 122/78
== END 2019-10-31 14:37 | disposition home or self-care (01) ==
LOC: ED 14:00
DX: K02.9 Dental caries, unspecified (principal)
CPT/HCPCS: 99283; A9270

== ENCOUNTER 2020-07-23 18:22 | Emergency (ER) | payer MEDICAID ==
[2020-07-23 18:58] LABS: MUDS CUTOFF CONCENTRATIONS CUTOFF CONC BELOW:
[2020-07-23] MEDS ORDERED: MAG HYDROX/AL HYDROX/SIMETH 30 ML UDC PO STA (18:59)
[2020-07-23] MEDS ORDERED: LIDOCAINE VISCOUS 2% 15 ML UDC MM STA (18:59)
--- NOTE | 2020-07-23 19:00 | ED Physician Documentation ---
PD HPI ABD PAIN - Stated complaint Stated Complaint: N/V - Chief complaint Chief Complaint: Abd Pain - History obtained from History obtained from: Patient - Additional information Additional information: She developed severe central and left-sided abdominal pain today associated with vomiting and diarrhea. No fevers. She claims no possibility of . She has a history of renal colic with removal of the stone but this is not similar. No other abdominal surgeries. No sick contacts. No fevers. She does use marijuana but not more than once a week she says. Review of Systems Ten Systems: 10 systems reviewed and negative Constitutional: reports: Reviewed and negative Eyes: reports: Reviewed and negative Ears: reports: Reviewed and negative Cardiac: reports: Reviewed and negative Respiratory: reports: Reviewed and negative PD PAST MEDICAL HISTORY - Past Medical History Past Medical History: No Cardiovascular: None Respiratory: None Endocrine/Autoimmune: None GI: None : Kidney stones - Past Surgical History Past Surgical History: Yes HEENT: Tonsil/Adenoidectomy - Present Medications Home Medications: Ambulatory Orders Medication Instructions Recorded Confirmed Doxycycline Monohydrate 100 mg PO BID #14 tablet 12/17/17 Naproxen 375 mg PO BID #20 tablet 12/17/17 Oxycodone HCl/Acetaminophen 1 each PO Q6H PRN #20 tablet 12/17/17 [Percocet 5-325 mg Tablet] oxyCODONE [Roxicodone] 10 mg PO Q4H PRN #20 tablet 12/26/17 Ibuprofen [Motrin] 800 mg PO Q8H PRN #30 tablet 10/31/19 Oxycodone HCl/Acetaminophen 1 - 2 each PO Q6H PRN #14 tablet 10/31/19 [Percocet 5-325 mg Tablet] Penicillin V Potassium 500 mg PO Q6HR #40 tablet 10/31/19 HYDROcod/ACETAM 5/325 [[place] 5/325] 1 - 2 tab PO Q6H PRN #10 tab 07/23/20 Omeprazole 40 mg PO DAILY #30 cap 07/23/20 Ondansetron Odt [Zofran] 4 mg TL Q6H PRN #10 tab 07/23/20 - Allergies Allergies/Adverse Reactions: Allergies Allergy/AdvReac Type Severity Reaction Status Date / Time No Known Drug Allergies Allergy Verified 07/23/20 18:39 - Social History Does the pt smoke?: No Smoking Status: Never smoker Does the pt drink ETOH?: No Does the pt have substance abuse?: No - Immunizations Immunizations are current?: Yes - POLST Patient has POLST: No PD ED PE NORMAL - Vitals Vital signs reviewed: Yes - General General: Alert and oriented X 3, Other (She appears uncomfortable) - HEENT HEENT: PERRL, EOMI - Neck Neck: Supple, no meningeal sign, No bony TTP - Cardiac Cardiac: RRR, No murmur - Respiratory Respiratory: No respiratory distress, Clear bilaterally - Abdomen Abdomen: Other (Mild left-sided abdominal tenderness without surgical signs, normal bowel tones.) - Back Back: No CVA TTP, No spinal TTP - Derm Derm: Normal color, Warm and dry - Extremities Extremities: No edema, No calf tenderness / cord - Neuro Neuro: Alert and oriented X 3, Normal speech Results - Vitals Vitals: Vital Signs - 24 hr 07/23/20 07/23/20 07/23/20 18:39 18:43 20:06 Temperature 37.4 C 37.4 C Heart Rate 100 100 96 Respiratory 16 16 18 Rate Blood Pressure 126/88 H 126/88 H 124/105 H O2 Saturation 100 100 100 Oxygen O2 Source Room air - Labs Labs: Laboratory Tests 07/23/20 07/23/20 07/23/20 18:37 19:10 19:10 WBC 6.5 RBC 3.40 L Hgb 12.8 Hct 37.9 MCV 111.5 H MCH 37.6 H MCHC 33.8 RDW 16.3 H Plt Count 150 MPV 10.5 Sodium 133 L Potassium 3.1 L Chloride 98 L Carbon Dioxide 23 Anion Gap 12.0 BUN 7 Creatinine 0.6 Estimated GFR (MDRD) 115 Glucose 109 H Calcium 8.4 L Total Bilirubin 1.4 H AST 318 H ALT 106 H Alkaline Phosphatase 193 H Total Protein 6.7 Albumin 3.7 Globulin 3.0 Albumin/Globulin Ratio 1.2 Lipase 122 H Urine Color DARK YELLOW Urine Clarity HAZY Urine pH 6.0 Ur Specific [place] >=1.030 H Urine Protein TRACE Urine Glucose (UA) NEGATIVE Urine Ketones 15 H Urine Occult Blood NEGATIVE Urine Nitrite NEGATIVE Urine Bilirubin MODERATE H Urine Urobilinogen 1 (NORMAL) Ur Leukocyte Esterase NEGATIVE Urine RBC 0-5 Urine WBC 11-25 H Ur Squamous Epith Cells MANY Squamous H Urine Bacteria Few Urine Mucus Moderate Strands Ur Microscopic Review INDICATED Urine Culture Comments NOT INDICATED Urine HCG, Qual NEGATIVE Urine Opiates Screen NEGATIVE Ur Oxycodone Screen NEGATIVE Urine Methadone Screen NEGATIVE Ur Propoxyphene Screen NEGATIVE Ur Barbiturates Screen NEGATIVE Ur Tricyclics Screen NEGATIVE Ur Phencyclidine Scrn NEGATIVE Ur Amphetamine Screen NEGATIVE U Methamphetamines Scrn NEGATIVE U Benzodiazepines Scrn NEGATIVE Urine Cocaine Screen NEGATIVE U Cannabinoids Screen POSITIVE H Ethyl Alcohol 07/23/20 19:10 WBC RBC Hgb Hct MCV MCH MCHC RDW Plt Count MPV Sodium Potassium Chloride Carbon Dioxide Anion Gap BUN Creatinine Estimated GFR (MDRD) Glucose Calcium Total Bilirubin AST ALT Alkaline Phosphatase Total Protein Albumin Globulin Albumin/Globulin Ratio Lipase Urine Color Urine Clarity Urine pH Ur Specific [place] Urine Protein Urine Glucose (UA) Urine Ketones Urine Occult Blood Urine Nitrite Urine Bilirubin Urine Urobilinogen Ur Leukocyte Esterase Urine RBC Urine WBC Ur Squamous Epith Cells Urine Bacteria Urine Mucus Ur Microscopic Review Urine Culture Comments Urine HCG, Qual Urine Opiates Screen Ur Oxycodone Screen Urine Methadone Screen Ur Propoxyphene Screen Ur Barbiturates Screen Ur Tricyclics Screen Ur Phencyclidine Scrn Ur Amphetamine Screen U Methamphetamines Scrn U Benzodiazepines Scrn Urine Cocaine Screen U Cannabinoids Screen Ethyl Alcohol < 5.0 - Rads (name of study) CT A/P Radiology: EMP read contemporaneously (Hepatomegaly and prominent fatty infiltration throughout the liver. No splenomegaly or varices. Small amount of ascites.) PD MEDICAL DECISION MAKING - ED course ED course: 34-year-old woman with upper abdominal pain radiating down to both sides associated with vomiting and diarrhea. Differential diagnosis includes colitis, diverticulitis, gastritis, gastroenteritis. Cannabinoid hyperemesis is also considered but says she only uses about once a week. After a GI cocktail she had some relief but incomplete. 34-year-old woman presents with upper abdominal pain radiating to both sides. Fairly benign exam, it is associated with vomiting and diarrhea. She did drink heavily 2 nights ago and looking at the constellation of labs and findings I suspect she has some significant problems with alcoholism noting transaminitis with AST higher than ALT, fatty liver which looks severe on CT, mild pancreatitis. Discussed with her that she needs to immediately and completely cease using alcohol. She is understanding and prescribed medications for the symptoms for now. Departure - Departure Disposition: 01 Home, Self Care Clinical Impression: Alcoholic liver damage Alcoholic gastritis Qualifiers: Chronicity: acute Gastritis bleeding: without bleeding Qualified Code(s): K29.20 - Alcoholic gastritis without bleeding Abdominal pain Qualifiers: Abdominal location: epigastric Qualified Code(s): R10.13 - Epigastric pain Condition: Good Record reviewed to determine appropriate education?: Yes Instructions: ED Cirrhosis Liver, ED Gastritis Prescriptions: HYDROcod/ACETAM 5/325 [[place] 5/325] 1 - 2 tab PO Q6H PRN #10 tab PRN Reason: Pain Omeprazole 40 mg PO DAILY #30 cap Ondansetron Odt [Zofran] 4 mg TL Q6H PRN #10 tab PRN Reason: Nausea / Vomiting Comments: As discussed, looking at the results seems likely that your abdominal pain is a combination of gastritis, alcoholic hepatitis and pancreatitis. I think all of this is probably from alcohol use looking at the constellation of labs and findings. You need to immediately and completely cease using alcohol. Return for new or worsening symptoms. For the next day I would recommend a clear liquid diet only, then on Friday you can slowly start to eat bland foods again. Follow-up with your primary care physician, next available appointment.
[2020-07-23 19:07] LABS: BILIRUBIN,URINE MODERATE (NEGATIVE); GLUCOSE, URINE (UA) NEGATIVE (NEGATIVE); KETONES,URINE (UA) 15 mg/dL (NEGATIVE); LEUKOCYTE ESTERASE, URINE NEGATIVE (NEGATIVE); NITRITE,URINE NEGATIVE (NEGATIVE); OCCULT BLOOD,URINE NEGATIVE (NEGATIVE); PROTEIN,URINE TRACE mg/dL (NEGATIVE); UROBILINOGEN,URINE 1 (NORMAL) E.U./dL (NORMAL)
[2020-07-23 19:12] LABS: CLARITY,URINE HAZY (CLEAR)
[2020-07-23 19:13] LABS: HCG UR QUAL NEGATIVE
[2020-07-23 19:15] LABS: BASOPHILS % (AUTO) 0.3 %; HGB - HEMOGLOBIN 12.8 g/dL (12.0-16.0); LYMPHOCYTES % (AUTO) 9.6 %; MEAN CORPUSCULAR HEMOGLOBIN 37.6 pg (27.0-31.0); MEAN CORPUSCULAR HGB CONC 33.8 g/dL (32.0-36.0); MEAN CORPUSCULAR VOLUME 111.5 fL (81.0-99.0); MEAN PLATELET VOLUME 10.5 fL (7.9-10.8); MONOCYTES % (AUTO) 8.5 %; NEUTROPHILS % (AUTO) 79.3 %; PLT - PLATELET COUNT 150 10^3/uL (130-450); RED CELL DISTRIBUTION WIDTH 16.3 % (12.0-15.0); WHITE BLOOD COUNT 6.5 x10^3/uL (4.8-10.8)
[2020-07-23 19:26] LABS: ALBUMIN 3.7 g/dL (3.2-5.5); ALBUMIN/GLOBULIN RATIO 1.2 (1.0-2.2); BILIRUBIN,TOTAL 1.4 mg/dL (0.2-1.0); CALCIUM 8.4 mg/dL (8.5-10.3); CREATININE 0.6 mg/dL (0.4-1.0); TOTAL PROTEIN 6.7 g/dL (6.7-8.2)
[2020-07-23 19:27] LABS: ABNORMAL LYMPHS % (MANUAL) 0 %; BAND NEUTROPHILS % (MANUAL) 0 %
[2020-07-23 19:27] LABS: BACTERIA,URINE Few /HPF (None Seen); MUCUS,URINE Moderate Strands; RBC,URINE 0-5 /HPF (0-5); SQUAMOUS EPITHELIAL CELL,UR MANY Squamous (<= Few)
[2020-07-23 19:28] LABS: AMPHETAMINE SCREEN,URINE NEGATIVE (NEGATIVE); BENZODIAZEPINES SCREEN, URINE NEGATIVE (NEGATIVE); COCAINE SCREEN URINE NEGATIVE (NEGATIVE); METHADONE SCREEN, URINE NEGATIVE (NEGATIVE); METHAMPHETAMINES SCREEN, URINE NEGATIVE (NEGATIVE); OPIATE SCREEN, URINE NEGATIVE (NEGATIVE); OXYCODONE SCREEN, URINE NEGATIVE (NEGATIVE); PROPOXYPHENE SCREEN, URINE NEGATIVE (NEGATIVE); TRICYCLIC ANTIDEPRESSANT,URINE NEGATIVE (NEGATIVE)
[2020-07-23] MEDS ORDERED: IOVERSOL 320 100 ML VIAL IVP ONE ×2 (19:48→20:08)
[2020-07-23 20:07] VITALS: BP 124/105
[2020-07-23] MEDS ORDERED: ONDANSETRON 4 MG/2 ML VIAL IVP STA (20:08)
--- NOTE | 2020-07-23 20:25 | CT Report ---
PROCEDURE: Abdomen/Pelvis W INDICATIONS: abd pain iv only CONTRAST: IV CONTRAST: Optiray 320 ml: 100 PO CONTRAST: *NO PO CONTRAST TECHNIQUE: After the administration of contrast, 5 mm thick sections acquired from the diaphragms to the sym physis. 5 mm thick coronal and sagittal reformats were acquired. For radiation dose reduction, the following was used: automated exposure control, adjustment of mA and/or kV according to patient size . COMPARISON: None. FINDINGS: Image quality: Excellent. ABDOMEN: Lung bases: Lung bases are clear. Heart size is normal. Solid organs: Liver is enlarged in size at 25.3 cm craniocaudad, and the spleen is normal in length. There is normal enhancement of the liver and spleen, but there is superimposed severe fatty infiltra tion throughout the liver. Gallbladder contains no visualized gallstones but the bile radiodensity w ithin is elevated at 34 Hounsfield units and this may indicate presence of sludge. Biliary system is non dilated. Pancreas enhances normally. No adrenal nodules. Kidneys demonstrate normal size and enhancement, without hydronephrosis. Peritoneum and bowel: Bowel loops demonstrate normal wall thickness and caliber. No free air. Ther e is a small amount of ascites within the hepatorenal space at the right upper quadrant. No abscess i s suspected. Nodes and vessels: No retroperitoneal or mesenteric adenopathy by size criteria. Aorta and inferior vena cava are normal in size. Miscellaneous: No ventral hernias. PELVIS: Genitourinary: Bladder wall thickness is normal. Miscellaneous: No inguinal hernias or adenopathy. Scans ascites can be seen deep within the pelvis. The uterus is anteverted and contains a centrally positioned IUD. Bones: No suspicious bony lesions. No vertebral body compression fractures. IMPRESSION: Hepatomegaly and prominent fatty infiltration throughout the liver. The spleen, however, is not enlarged. Varices are not found, a hepatic mass or evidence of infection is not seen. A slight amount of ascites is present within the hepatorenal space at the right upper quadrant. No si gn of pancreatitis. Anteverted uterus with centrally positioned IUD. Slight ascites present within th e peritoneal space of the deep pelvis. Note is made of relatively high radiodensity of the bile, 34 Hounsfield units, which can indicate pre sence of sludge. No calcified gallstones found. Reviewed by: Hamilton Cobos MD on 07/23/2020 8:24 PM PST Approved by: Hamilton Cobos MD on 07/23/2020 8:24 PM PST Station ID: [id number]
[2020-07-23] MEDS ORDERED: PANTOPRAZOLE 40 MG TABLET PO STA (20:32)
[2020-07-23] MEDS ORDERED: ONDANSETRON ODT 4 MG Prepack 2 TL STA (20:32)
[2020-07-23] MEDS ORDERED: HYDROcod/ACET 5/325 Prepack 4 PO STA (20:32)
[2020-07-23] MEDS ORDERED: POTASSIUM CHLORIDE 20 MEQ TABLET PO STA (20:36)
[2020-07-23 20:50] LABS: BASOPHILS # (MANUAL) 0.1 10^3/uL (0-0.1); BASOPHILS % (MANUAL) 1 %; LYMPHOCYTES # (MANUAL) 1.1 10^3/uL (1.5-3.5); LYMPHOCYTES % (MANUAL) 17 %; MONOCYTES # (MANUAL) 0.7 10^3/uL (0.0-1.0)
[2020-07-23 20:51] LABS: PLATELET ESTIMATE, MANUAL NORMAL (130-450,000) (NORMAL); PLATELET MORPHOLOGY NORMAL APPEARANCE (NORMAL)
[2020-07-23 20:52] LABS: DIFFERENTIAL COMMENT MANUAL DIFFERENTIAL
== END 2020-07-23 20:46 | disposition home or self-care (01) ==
LOC: ED 18:22
DX: K29.20 Alcoholic gastritis without bleeding (principal); K70.0 Alcoholic fatty liver; K85.90 Acute pancreatitis without necrosis or infection, unspecified; F10.20 Alcohol dependence, uncomplicated
CPT/HCPCS: 36415; 74177; 80053; 80306; 80320; 81001; 81025; 83690; 85025; 96374; 99283; 99284; A9270; Q9967; 81003; 87086

== ENCOUNTER 2020-12-02 14:01 | Inpatient (IN) | payer MEDICAID ==
[2020-12-02] MEDS ORDERED: SODIUM CHLORIDE 0.9% 1,000 ML IV STA (14:35)
[2020-12-02] MEDS ORDERED: KETOROLAC 30 MG/ML VIAL IVP STA (14:35)
[2020-12-02] MEDS ORDERED: ONDANSETRON 4 MG/2 ML VIAL IVP STA (14:35)
[2020-12-02] MEDS ORDERED: HYDROmorphone 1 MG/ML CARPUJECT IVP STA ×3 (14:40→16:19)
[2020-12-02 14:43] LABS: BASOPHILS % (AUTO) 0.3 %; EOSINOPHILS % (AUTO) 2.1 %; HCT - HEMATOCRIT 43.9 % (37.0-47.0); LYMPHOCYTES % (AUTO) 3.6 %; MEAN CORPUSCULAR HEMOGLOBIN 36.7 pg (27.0-31.0); MEAN CORPUSCULAR HGB CONC 34.2 g/dL (32.0-36.0); MEAN CORPUSCULAR VOLUME 107.3 fL (81.0-99.0); MEAN PLATELET VOLUME 10.9 fL (7.9-10.8); MONOCYTES % (AUTO) 5.3 %; NEUTROPHILS % (AUTO) 88.5 %; PLT - PLATELET COUNT 137 10^3/uL (130-450); RED BLOOD COUNT 4.09 10^6/uL (4.20-5.40); WHITE BLOOD COUNT 13.3 x10^3/uL (4.8-10.8)
[2020-12-02 14:46] LABS: ABNORMAL LYMPHS % (MANUAL) 0 %
[2020-12-02] MEDS ORDERED: IOVERSOL 320 100 ML VIAL IVP ONE ×2 (14:47→16:02)
--- NOTE | 2020-12-02 14:48 | ED Physician Documentation ---
PD HPI ABD PAIN - Stated complaint Stated Complaint: ABD/LT SIDE PX - Chief complaint Chief Complaint: Abd Pain - History obtained from History obtained from: Patient - History of Present Illness Timing - onset: Today Timing - duration: Hours (3) Timing - details: Abrupt onset Pain level max: 10 Pain level now: 10 Quality: Aching, Pain Location: All over / everywhere Radiation: No: Chest, , Lower back, Left flank, Left shoulder, Right flank, Right shoulder, Upper back Improved by: Other (nothing) Worsened by: Other (nothing) Associated symptoms: Diarrhea (today). No: Fever, Nausea, Vomiting, Hematemesis, Constipation, Melena, Hematochezia, Dysuria, Hematuria Similar symptoms before: Has not had sx before Recently seen: Not recently seen - Additional information Additional information: Patient is a 34-year-old female who presents to the emergency department with generalized abdominal pain today. She states that it hurts everywhere. Unable to describe the pain any further. She states it feels different than her prior history of kidney stones. She does have a history of GERD as well but states this feels different as well. Nothing makes it better. Nothing makes it worse. Patient is tearful. Denies any possibility of . Has not taken anything for the pain. Patient states that she used to drink alcohol heavily, but has quit over the past several months. She states she occasionally has a drink now. Review of Systems Ten Systems: 10 systems reviewed and negative Constitutional: denies: Fever, Chills Ears: denies: Ear pain Nose: denies: Rhinorrhea / runny nose, Congestion Throat: denies: Sore throat Respiratory: denies: Dyspnea, Cough GI: reports: Abdominal Pain, Diarrhea. denies: Nausea, Vomiting, Hematemesis, Bloody / black stool : denies: Dysuria, Frequency, Hesitancy, Discharge, Now EGA Skin: denies: Rash Musculoskeletal: denies: Neck pain, Back pain Neurologic: denies: Headache PD PAST MEDICAL HISTORY - Past Medical History Past Medical History: Yes Cardiovascular: None Respiratory: None Neuro: None Endocrine/Autoimmune: None GI: Other [employer] W[employer]ER: None : Kidney stones HEENT: None Psych: None Musculoskeletal: None Derm: None - Past Surgical History Past Surgical History: Yes HEENT: Tonsil/Adenoidectomy - Present Medications Home Medications: Ambulatory Orders Medication Instructions Recorded Confirmed Omeprazole 40 mg PO DAILY #30 cap 07/23/20 12/02/20 - Allergies Allergies/Adverse Reactions: Allergies Allergy/AdvReac Type Severity Reaction Status Date / Time No Known Drug Allergies Allergy Verified 12/02/20 14:25 - Social History Does the pt smoke?: Yes Smoking Status: Current every day smoker Does the pt drink ETOH?: No Does the pt have substance abuse?: Yes - Immunizations Immunizations are current?: Yes - POLST Patient has POLST: No PD ED PE NORMAL - Vitals Vital signs reviewed: Yes - General General: Alert and oriented X 3, Well developed/nourished, Other (tearful) - HEENT HEENT: PERRL, Moist mucous membranes - Neck Neck: Supple, no meningeal sign - Cardiac Cardiac: RRR, Strong equal pulses - Respiratory Respiratory: No respiratory distress, Clear bilaterally - Abdomen Abdomen: Soft, Non distended, Other (Diffusely tender to palpation. No peritoneal signs) - Back Back: No CVA TTP, No spinal TTP - Derm Derm: Warm and dry - Extremities Extremities: No edema, No calf tenderness / cord - Neuro Neuro: Alert and oriented X 3 - Psych Psych: Normal mood, Normal affect Results - Vitals Vitals: Vital Signs - 24 hr 12/02/20 12/02/20 12/02/20 14:22 14:44 15:43 Temperature 36.9 C 36.5 C Heart Rate 91 108 H 91 Respiratory 22 22 20 Rate Blood Pressure 142/93 H 146/109 H 130/99 H O2 Saturation 97 99 98 12/02/20 17:01 Temperature 36.7 C Heart Rate 93 Respiratory 16 Rate Blood Pressure 133/88 H O2 Saturation 97 Oxygen O2 Source Room air - Labs Labs: Laboratory Tests 12/02/20 12/02/20 12/02/20 14:30 14:30 14:30 WBC 13.3 H RBC 4.09 L Hgb 15.0 Hct 43.9 MCV 107.3 H MCH 36.7 H MCHC 34.2 RDW 13.0 Plt Count 137 MPV 10.9 H Neut # (Auto) Not Reportable Lymph # (Auto) Not Reportable Early # (Auto) Not Reportable Eos # (Auto) Not Reportable Baso # (Auto) Not Reportable Absolute Nucleated RBC Not Reportable Total Counted 100 Band Neuts % (Manual) 2 Abnorm Lymph % (Manual) 0 Nucleated RBC % Not Reportable Neutrophils # (Manual) 12.0 H Lymphocytes # (Manual) 0.8 L Monocytes # (Manual) 0.5 Eosinophils # (Manual) 0.0 Basophils # (Manual) 0.0 Differential Comment MANUAL DIFFERENTIAL WBC Morphology 1+ TOXIC GRANULATION Platelet Estimate NORMAL (130-450,000) Platelet Morphology NORMAL APPEARANCE RBC Morph Micro Appear 2+ MACROCYTOSIS PT INR Sodium 137 Potassium 3.1 L Chloride 98 L Carbon Dioxide 24 Anion Gap 15.0 H BUN 9 Creatinine 0.7 Estimated GFR (MDRD) 96 Glucose 136 H Calcium 9.0 Total Bilirubin 1.2 H AST 61 H ALT 28 Alkaline Phosphatase 95 Total Protein 7.7 Albumin 4.9 Globulin 2.8 Albumin/Globulin Ratio 1.8 Triglycerides 55 Cholesterol 203 H LDL Cholesterol, Calc 93 VLDL Cholesterol 11 HDL Cholesterol 99 LDL/HDL Ratio 0.9 Cholesterol/HDL Ratio 2.1 Lipase 178 H Ethyl Alcohol 12/02/20 12/02/20 14:58 14:58 WBC RBC Hgb Hct MCV MCH MCHC RDW Plt Count MPV Neut # (Auto) Lymph # (Auto) Early # (Auto) Eos # (Auto) Baso # (Auto) Absolute Nucleated RBC Total Counted Band Neuts % (Manual) Abnorm Lymph % (Manual) Nucleated RBC % Neutrophils # (Manual) Lymphocytes # (Manual) Monocytes # (Manual) Eosinophils # (Manual) Basophils # (Manual) Differential Comment WBC Morphology Platelet Estimate Platelet Morphology RBC Morph Micro Appear PT 12.7 H INR 1.1 Sodium Potassium Chloride Carbon Dioxide Anion Gap BUN Creatinine Estimated GFR (MDRD) Glucose Calcium Total Bilirubin AST ALT Alkaline Phosphatase Total Protein Albumin Globulin Albumin/Globulin Ratio Triglycerides Cholesterol LDL Cholesterol, Calc VLDL Cholesterol HDL Cholesterol LDL/HDL Ratio Cholesterol/HDL Ratio Lipase Ethyl Alcohol < 5.0 - Rads (name of study) ct abd/pelvis Radiology: Prelim report reviewed, EMP read contemporaneously, See rad report (1. Acute pancreatitis. 2. Hepatomegaly, hepatic steatosis. ) Right upper quadrant ultrasound Radiology: Prelim report reviewed, EMP read contemporaneously, See rad report (No evidence of gallbladder disease. Hepatomegaly, hepatic steatosis) PD MEDICAL DECISION MAKING - ED course Complexity details: reviewed old records, reviewed results, re-evaluated patient, considered differential, d/w patient, d/w senior solutions consultant ED course: Patient is a 34-year-old female with acute pancreatitis. Received several doses of pain medication and nausea medication. Pain is poorly controlled and nausea is poorly controlled. Given IV fluids and a banana bag. She will need bowel rest, IV fluids and continued pain management. Discussed the case with Dr. Ortiz, hospitalist who accepts This document was made in part using voice recognition software. While efforts are made to proofread this document, sound alike and grammatical errors may occur. Departure - Departure Disposition: 67 [facility] DC/Xfer Clinical Impression: Pancreatitis Qualifiers: Chronicity: acute Pancreatitis type: unspecified pancreatitis type Acute pancreatitis complication: unspecified Qualified Code(s): K85.90 - Acute pancreatitis without necrosis or infection, unspecified Vomiting Qualifiers: Vomiting type: unspecified Vomiting Intractability: intractable Nausea presence: with nausea Qualified Code(s): R11.2 - Nausea with vomiting, unspecified Abdominal pain Qualifiers: Abdominal location: epigastric Qualified Code(s): R10.13 - Epigastric pain Condition: Stable
[2020-12-02 14:55] LABS: ALBUMIN 4.9 g/dL (3.2-5.5); ALBUMIN/GLOBULIN RATIO 1.8 (1.0-2.2); BILIRUBIN,TOTAL 1.2 mg/dL (0.2-1.0); CREATININE 0.7 mg/dL (0.4-1.0); POTASSIUM 3.1 mmol/L (3.5-5.0); TOTAL PROTEIN 7.7 g/dL (6.7-8.2)
[2020-12-02 15:10] LABS: INR 1.1 (0.8-1.2); PT - PROTHROMBIN TIME 12.7 secs (9.9-12.6)
[2020-12-02 15:22] LABS: BAND NEUTROPHILS % (MANUAL) 2 %; LYMPHOCYTES # (MANUAL) 0.8 10^3/uL (1.5-3.5); LYMPHOCYTES % (MANUAL) 6 %; MONOCYTES # (MANUAL) 0.5 10^3/uL (0.0-1.0)
[2020-12-02 15:25] LABS: DIFFERENTIAL COMMENT MANUAL DIFFERENTIAL; PLATELET ESTIMATE, MANUAL NORMAL (130-450,000) (NORMAL); PLATELET MORPHOLOGY NORMAL APPEARANCE (NORMAL); WBC MORPHOLOGY (MULTIPLE) 1+ TOXIC GRANULATION (NORMAL)
[2020-12-02] MEDS ORDERED: PANTOPRAZOLE 40 MG VIAL IVP STA (15:29)
[2020-12-02] MEDS ORDERED: FOLIC ACID INJ 1 MG, THIAMINE INJ 100 MG, MAGNESIUM SULFATE 2 GM, MULTIVITAMIN 10 ML in... IV STA ×5 (15:32)
--- NOTE | 2020-12-02 15:44 | CT Report ---
PROCEDURE: Abdomen/Pelvis W INDICATIONS: diffuse abd pain, sudden onset CONTRAST: IV CONTRAST: Optiray 320 ml: 100 PO CONTRAST: *NO PO CONTRAST TECHNIQUE: After the administration of intravenous contrast, 5 mm thick sections acquired from the diaphragms to the symphysis. 5 mm thick coronal and sagittal reformats were acquired. For radiation dose reducti on, the following was used: automated exposure control, adjustment of mA and/or kV according to angelica ent size. COMPARISON: 07/23/2020 FINDINGS: Image quality: Excellent. ABDOMEN: Lung bases: Lung bases are clear. Heart size is normal. Solid organs: Liver is again noted to be enlarged. The craniocaudal dimension is approximately 24.6 c m. Spleen is normal in size. Mild diffuse hepatic steatosis. Gallbladder is unremarkable. Biliary sy stem is non dilated. Diffuse pancreatic edema with peripancreatic inflammatory change in the adjacent fat. No free air or abscess or pancreatic necrosis identified. No adrenal nodules. Kidneys demonstr ate normal size and enhancement, without hydronephrosis. Peritoneum and bowel: Bowel loops demonstrate normal wall thickness and caliber. No free fluid or a ir. Nodes and vessels: No retroperitoneal or mesenteric adenopathy by size criteria. Aorta and inferior vena cava are normal in size. Miscellaneous: No ventral hernias. PELVIS: Genitourinary: Bladder wall thickness is normal. Miscellaneous: No inguinal hernias or adenopathy. IUD in satisfactory position. Bones: No suspicious bony lesions. No vertebral body compression fractures. IMPRESSION: 1. Acute pancreatitis. 2. Hepatomegaly, hepatic steatosis. Reviewed by: Humble Barrios MD on 12/02/2020 2:42 PM WIN Approved by: Humble Barrios MD on 12/02/2020 2:42 PM WIN Station ID: [id number]
[2020-12-02 15:46] LABS: CHOL/HDL RATIO 2.1 (<4.4); CHOLESTEROL 203 mg/dL; HDL CHOLESTEROL 99 mg/dL; LDL CHOLESTEROL,CALCULATED 93 mg/dL; LDL/HDL RATIO 0.9 (<4.4); TRIGLYCERIDES 55 mg/dL; VLDL CHOLESTEROL 11 mg/dL
[2020-12-02] MEDS ORDERED: PROCHLORPERAZINE 10 MG/2 ML VIAL IVP PRN (16:27)
[2020-12-02] MEDS ORDERED: MORPHINE 2 MG/ML CARPUJECT IVP PRN (16:27)
--- NOTE | 2020-12-02 17:00 | Ultrasound Report ---
PROCEDURE: Abdomen Limited INDICATIONS: elevated LFT, pancreatitis TECHNIQUE: Real-time focused scanning was performed of the abdomen, with image documentation. COMPARISON: CT abdomen and pelvis from the same date FINDINGS: No gallstones or gallbladder wall thickening or fluid around the gallbladder. No sonograph ic Justice sign. No dilated ducts. Common duct measures 3 mm. The liver is enlarged, with increased echogenicity consistent with hepatic steatosis. IMPRESSION: 1. No evidence of gallstone disease. 2. Hepatomegaly, hepatic steatosis. Reviewed by: Humble Barrios MD on 12/02/2020 3:58 PM WIN Approved by: Humble Barrios MD on 12/02/2020 3:58 PM WIN Station ID: [id number]
[2020-12-02 17:14] LABS: MUDS CUTOFF CONCENTRATIONS CUTOFF CONC BELOW:
[2020-12-02 17:17] LABS: BILIRUBIN,URINE NEGATIVE (NEGATIVE); GLUCOSE, URINE (UA) NEGATIVE (NEGATIVE); KETONES,URINE (UA) 40 mg/dL (NEGATIVE); LEUKOCYTE ESTERASE, URINE NEGATIVE (NEGATIVE); NITRITE,URINE NEGATIVE (NEGATIVE); OCCULT BLOOD,URINE NEGATIVE (NEGATIVE); PROTEIN,URINE NEGATIVE (NEGATIVE); UROBILINOGEN,URINE 0.2 (NORMAL) E.U./dL (NORMAL)
[2020-12-02 17:20] LABS: CLARITY,URINE CLEAR (CLEAR)
[2020-12-02 17:26] LABS: AMPHETAMINE SCREEN,URINE NEGATIVE (NEGATIVE); BARBITURATE SCREEN,UR NEGATIVE (NEGATIVE); BENZODIAZEPINES SCREEN, URINE NEGATIVE (NEGATIVE); COCAINE SCREEN URINE NEGATIVE (NEGATIVE); METHADONE SCREEN, URINE NEGATIVE (NEGATIVE); METHAMPHETAMINES SCREEN, URINE NEGATIVE (NEGATIVE); OPIATE SCREEN, URINE POSITIVE (NEGATIVE); OXYCODONE SCREEN, URINE NEGATIVE (NEGATIVE); PROPOXYPHENE SCREEN, URINE NEGATIVE (NEGATIVE); THC CANNABINOID SCREEN, URINE POSITIVE (NEGATIVE); TRICYCLIC ANTIDEPRESSANT,URINE NEGATIVE (NEGATIVE)
[2020-12-02] MEDS: HYDROmorphone 0.5 MG/0.5 ML SYRINGE IVP PRN ×2 (17:49→21:47)
[2020-12-02] MEDS: ONDANSETRON 4 MG/2 ML VIAL IVP PRN (17:50)
[2020-12-02] MEDS: SODIUM CHLORIDE FLUSH 0.9% 10 ML SYRINGE IVP SCH ×2 (17:53→23:45)
[2020-12-02] MEDS: LORazepam 2 MG/ML VIAL IVP PRN (18:19)
[2020-12-02] MEDS: NICOTINE 14 MG PATCH TOP SCH (18:20)
[2020-12-02 18:47] LABS: B. PARAPERTUSSIS- RESP PCR PAN NOT DETECTED; B. PERTUSSIS- RESP PCR PANEL NOT DETECTED; C. PNEUMONIAE- RESP PCR PANEL NOT DETECTED; CORONAVIRUS 229E-RESP PCR NOT DETECTED; CORONAVIRUS HKU1-RESP PCR NOT DETECTED; CORONAVIRUS NL63-RESP PCR NOT DETECTED; CORONAVIRUS OC43-RESP PCR NOT DETECTED; HUMAN METAPNEUMOVIRUS NOT DETECTED; INFLUENZA A- RESP PCR PANEL NOT DETECTED; INFLUENZA B - RESP PCR PANEL NOT DETECTED; M. PNEUMONIAE- RESP PCR PANEL NOT DETECTED; PARAINFLUENZA VIRUS 1 NOT DETECTED; PARAINFLUENZA VIRUS 2 NOT DETECTED; PARAINFLUENZA VIRUS 3 NOT DETECTED; PARAINFLUENZA VIRUS 4 NOT DETECTED; RHINOVIRUS/ENTEROVIRUS NOT DETECTED; RSV- RESP PCR PANEL NOT DETECTED; SARS-CoV-2 -RESP PCR PANEL NOT DETECTED
[2020-12-02] MEDS: POTASSIUM CHLOR 10 MEQ/100 ML 10 MEQ/100 ML BAG IV SCH ×4 (19:12→23:40)
--- NOTE | 2020-12-02 21:42 | HISTORY & PHYSICAL EXAMINATION ---
Chief Complaint - Chief Complaint Chief Complaint: abdominal pain, nausea and vomiting History of Present Illness - Admitted From Admitted From:: [facility] ED - History Obtained From Records Reviewed: yes History obtained from: patient - History of Present Illness HPI Comment/Other: Patient is a 34-year-old female with medical history significant for peptic ulcer, GERD, renal calculi, alcohol abuse who presented to the ED with complaint of severe epigastric, left upper quadrant abdominal pain, nausea and vomiting. Symptoms started today around 11 AM when she woke up from sleep. She last drank alcohol yesterday. She reports having about 4 drinks. In the ED work-up included a CT of the abdomen pelvis which showed diffuse pancreatic edema with peripancreatic inflammatory changes in the adjacent fat. It also showed an enlarged liver. She is being admitted for further management of pancreatitis. At bedside she is very somnolent. She falls asleep midsentence. She currently rates her abdominal pain 5 out of 10. She denies chest pain, dyspnea, fever or chills. She was nauseous and last vomited in the ED. 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 Social History Notes: She resides at home with her children and boyfriend. She drinks 2-4 drinks unspecified daily. She smokes about 1/4 pack of cigarettes daily and has been smoking for 15 years. She uses marijuana. - POLST Patient has POLST: No POLST Status: Full Code Meds/Allgy - Home Medications Home Medications: Ambulatory Orders Medication Instructions Recorded Confirmed Omeprazole 40 mg PO DAILY #30 cap 07/23/20 12/02/20 - Allergies Allergies/Adverse Reactions: Allergies Allergy/AdvReac Type Severity Reaction Status Date / Time No Known Drug Allergies Allergy Verified 12/02/20 14:25 Review of Systems - Constitutional Constitutional: reports: Fatigue. denies: Fever, Chills - Eyes Eyes: denies: Pain, Dipolpia - Ears, Nose & Throat Ears, Nose & Throat: denies: Ear pain, Sore throat - Cardiovascular Cariovascular: denies: Edema, Lightheadedness, Syncope, Exertional dyspnea - Respiratory Respiratory: denies: Cough, Wheezing, SOB at rest, SOB with exertion - Gastrointestinal Gastrointestinal: reports: Abdominal pain, Nausea, Vomiting, Reflux/heartburn. denies: Abdominal distention - Genitourinary Genitourinary: denies: Dysuria, Frequency, Urgency, Hematuria - Musculoskeletal Musculoskeletal: denies: Muscle pain, Back pain, Muscle aches - Integumentary Integumentary: denies: Rash, Pruritis, Lesions - Neurological Neurological: denies: General weakness, Focal weakness, Headache - Psychiatric Psychiatric: denies: Depression, Anxiety - Endocrine Endocrine: denies: Polyuria, Polydypsia - Hematologic/Lymphatic Hematologic/Lymphatic: denies: Anemia, Bruising, Petechiae Prior Level of Functionality: She is independent of activities of daily living Exam - Vital Signs Vital Signs: Vital Signs x48h Temp Pulse Pulse Resp BP BP Pulse Ox 12/02/20 19:37 36.5 C 95 20 126/98 H 99 12/02/20 17:21 36.6 C 94 22 134/84 H 100 12/02/20 17:01 36.7 C 93 16 133/88 H 97 12/02/20 15:43 36.5 C 91 20 130/99 H 98 12/02/20 14:44 108 H 22 146/109 H 99 12/02/20 14:22 36.9 C 91 22 142/93 H 97 - Physical Exam General Appearance: positive: Moderate distress, Other (Somnolent but readily arousable to tactile and verbal stimuli) Eyes Bilateral: positive: PERRL, EOMI ENT: positive: No signs of dehydration Neck: positive: No JVD, Trachea midline Respiratory: positive: Chest non-tender, Breath sounds nml. negative: Wheezes, Rales, Rhonchi Cardiovascular: positive: Regular rate & rhythm, No murmur Abdomen: positive: Nml bowel sounds, No distention, Tenderness. negative: Guarding, Rebound Back: positive: Nml inspection Skin: positive: Color nml, No rash, Warm, Dry Extremities: positive: Non-tender, Full ROM, Nml appearance, No pedal edema Neurologic/Psychiatric: positive: Oriented x3, Mood/affect nml Conclusion/Plan - Problem List (1) Pancreatitis Conclusion/Plan: Likely secondary to alcohol abuse. CT scan of the abdomen pelvis showed pancreatic edema and peripancreatic inflammatory changes consistent with pancreatitis. Patient made n.p.o. IV hydration with normal saline. Pain management as needed. Qualifiers: Chronicity: acute Pancreatitis type: unspecified pancreatitis type Acute pancreatitis complication: unspecified Qualified Code(s): K85.90 - Acute pancreatitis without necrosis or infection, unspecified (2) Alcohol abuse Conclusion/Plan: CIWA protocol initiated (3) GERD (gastroesophageal reflux disease) Conclusion/Plan: Protonix 40 mg p.o. daily (4) Tobacco abuse Conclusion/Plan: Nicotine patch 14 mg daily ordered. - Lab Results Fish Bones: 12/02/20 14:30 12/02/20 14:30 Core Measures - Anticipated LOS I expect patient to be DC'd or transferred within 96 hours.: Yes - DVT/VTE - Prophylaxis VTE/DVT Device ordered at admit?: Yes
[2020-12-03] MEDS: SODIUM CHLORIDE FLUSH 0.9% 10 ML SYRINGE IVP PRN ×7 (00:02→14:39)
[2020-12-03] MEDS: ONDANSETRON 4 MG/2 ML VIAL IVP PRN ×2 (00:02→08:14)
[2020-12-03] MEDS: HYDROmorphone 0.5 MG/0.5 ML SYRINGE IVP PRN ×7 (00:02→18:15)
[2020-12-03] MEDS: LORazepam 2 MG/ML VIAL IVP PRN ×2 (04:15→18:15)
[2020-12-03 05:59] LABS: BASOPHILS % (AUTO) 0.3 %; EOSINOPHILS % (AUTO) 0.3 %; HCT - HEMATOCRIT 40.7 % (37.0-47.0); HGB - HEMOGLOBIN 13.7 g/dL (12.0-16.0); LYMPHOCYTES # (AUTO) 0.7 10^3/uL (1.5-3.5); LYMPHOCYTES % (AUTO) 7.8 %; MEAN CORPUSCULAR HEMOGLOBIN 36.7 pg (27.0-31.0); MEAN CORPUSCULAR HGB CONC 33.7 g/dL (32.0-36.0); MEAN CORPUSCULAR VOLUME 109.1 fL (81.0-99.0); MONOCYTES # (AUTO) 0.8 10^3/uL (0.0-1.0); MONOCYTES % (AUTO) 8.3 %; NEUTROPHILS # (AUTO) 7.8 10^3/uL (1.5-6.6); PLT - PLATELET COUNT 105 10^3/uL (130-450); RED BLOOD COUNT 3.73 10^6/uL (4.20-5.40); WHITE BLOOD COUNT 9.4 x10^3/uL (4.8-10.8)
[2020-12-03 06:16] LABS: ALBUMIN 3.8 g/dL (3.2-5.5); ALBUMIN/GLOBULIN RATIO 1.5 (1.0-2.2); BILIRUBIN,TOTAL 1.8 mg/dL (0.2-1.0); CALCIUM 8.3 mg/dL (8.5-10.3); CREATININE 0.5 mg/dL (0.4-1.0); POTASSIUM 3.4 mmol/L (3.5-5.0); TOTAL PROTEIN 6.4 g/dL (6.7-8.2)
[2020-12-03] MEDS: SODIUM CHLORIDE FLUSH 0.9% 10 ML SYRINGE IVP SCH ×2 (08:14→17:30)
[2020-12-03] MEDS: NICOTINE 14 MG PATCH TOP SCH (08:17)
[2020-12-03] MEDS: PANTOPRAZOLE 40 MG TABLET PO SCH (08:17)
[2020-12-03] MEDS ORDERED: MULTIVITAMIN 10 ML, FOLIC ACID INJ 1 MG, THIAMINE INJ 100 MG, MAGNESIUM SULFATE 2 GM in... IV SCH ×5 (09:00)
--- NOTE | 2020-12-03 20:20 | PROVIDER PROGRESS NOTE ---
Assessment/Plan - Problem List (1) Pancreatitis Qualifiers: Chronicity: acute Pancreatitis type: unspecified pancreatitis type Acute pancreatitis complication: unspecified Qualified Code(s): K85.90 - Acute pancreatitis without necrosis or infection, unspecified Assessment/Plan: Continue IV hydration. Continue pain management. Advance diet to full liquid in the morning. (2) Alcohol abuse Assessment/Plan: On CIWA protocol (3) GERD (gastroesophageal reflux disease) Assessment/Plan: Protonix 40 mg p.o. daily (4) Tobacco abuse Assessment/Plan: Nicotine patch 14 mg daily. - Current Meds Current Meds: Current Medications Generic Name Dose Route Start Last Admin Trade Name Freq PRN Reason Stop Dose Admin Hydromorphone HCl 0.5 mg 12/02/20 16:27 12/03/20 18:15 Hydromorphone 0.5 Mg/0.5 Ml Syringe IVP 0.5 mg Q2H PRN Administration Pain 8 to 10 Multivitamins 10 ml/ Folic 1,015.2 mls @ 100 mls/hr 12/03/20 09:00 12/03/20 19:11 Acid 1 mg/ Thiamine HCl 100 mg IV Infused / Magnesium Sulfate 2 gm/ DAILY LUCY Infusion Sodium Chloride Lorazepam 2 mg 12/02/20 18:03 12/03/20 18:15 Lorazepam 2 Mg/Ml Vial IVP 2 mg Q30M PRN Administration CIWA >8 Protocol Nicotine 1 patch 12/02/20 18:05 12/03/20 08:17 Nicotine 14 Mg Patch TOP 1 patch DAILY LUCY Administration Ondansetron HCl 4 mg 12/02/20 16:27 12/03/20 08:14 Ondansetron 4 Mg/2 Ml Vial IVP 4 mg Q6HR PRN Administration Nausea / Vomiting Pantoprazole Sodium 40 mg 12/03/20 09:00 12/03/20 08:17 Pantoprazole 40 Mg Tablet PO 40 mg DAILY LUCY Administration Sodium Chloride 10 ml 12/02/20 16:27 12/03/20 14:39 Sodium Chloride Flush 0.9% 10 Ml Syringe IVP 10 ml PRN PRN Administration NEEDED PER PROVIDER ORDERS Sodium Chloride 10 ml 12/02/20 17:00 12/03/20 17:30 Sodium Chloride Flush 0.9% 10 Ml Syringe IVP Not Given 0100,0900,1700 LUCY - Lab Result Fish Bone Diagrams: 12/03/20 05:50 12/03/20 05:50 - Additional Planning My Orders: My Active Orders 12/03/20 09:00 Pantoprazole [Protonix] 40 mg PO DAILY Subjective - Subjective Patient Reports: Other (Resting comfortably in bed. Sonolent by readily arousable to verbal stimuli. Reports 6/10 abd pain. Mildly tremulous. Denies any other complains.) Objective Vital Signs: Vital Signs - 24 hr 12/02/20 12/03/20 12/03/20 23:50 04:26 08:05 Temperature 36.4 C L 36.7 C 37.1 C Heart Rate [ 99 100 107 H Brachial] Respiratory 18 20 18 Rate Blood Pressure 136/86 H 132/89 H 136/78 H [Right Brachial artery] O2 Saturation 98 97 99 12/03/20 12/03/20 14:29 15:52 Temperature 98.7 C H 37.1 C Heart Rate [ 97 98 Brachial] Respiratory 17 20 Rate Blood Pressure 139/84 H 125/87 H [Right Brachial artery] O2 Saturation 98 100 Oxygen O2 Source Room air I&O (Last 24 Hrs): Intake and Output Totals x24h 12/01/20 12/02/20 12/03/20 23:59 23:59 23:59 Intake Total 2358.533 1115.2 Output Total 550 Balance 2358.533 565.2 General: Alert, Oriented x3, Mild distress, Moderate distress HEENT: PERRLA, EOMI Neck: Supple, No JVD Neuro: Alert, Non Focal, Oriented Times 3 Cardiovascular: Regular rate, No murmurs Respiratory: Chest non-tender, No respiratory distress, Breath sounds nml Abdomen: Normal bowel sounds, Soft, Other (moderate tenderness) Extremities: No clubbing, No edema, No tenderness/swelling Skin: No rashes, No breakdown - Results Results: Laboratory Results WBC 9.4 x10^3/uL (4.8-10.8) 12/03/20 05:50 RBC 3.73 10^6/uL (4.20-5.40) L 12/03/20 05:50 Hgb 13.7 g/dL (12.0-16.0) 12/03/20 05:50 Hct 40.7 % (37.0-47.0) 12/03/20 05:50 MCV 109.1 fL (81.0-99.0) H 12/03/20 05:50 MCH 36.7 pg (27.0-31.0) H 12/03/20 05:50 MCHC 33.7 g/dL (32.0-36.0) 12/03/20 05:50 RDW 13.0 % (12.0-15.0) 12/03/20 05:50 Plt Count 105 10^3/uL (130-450) L 12/03/20 05:50 MPV 11.0 fL (7.9-10.8) H 12/03/20 05:50 Neut # (Auto) 7.8 10^3/uL (1.5-6.6) H 12/03/20 05:50 Lymph # (Auto) 0.7 10^3/uL (1.5-3.5) L 12/03/20 05:50 [place] # (Auto) 0.8 10^3/uL (0.0-1.0) 12/03/20 05:50 Eos # (Auto) 0.0 10^3/uL (0.0-0.7) 12/03/20 05:50 Baso # (Auto) 0.0 10^3/uL (0.0-0.1) 12/03/20 05:50 Absolute Nucleated RBC 0.00 x10^3/uL 12/03/20 05:50 Total Counted 100 12/02/20 14:30 Band Neuts % (Manual) 2 % (0-10) 12/02/20 14:30 Abnorm Lymph % (Manual) 0 % 12/02/20 14:30 Nucleated RBC % 0.0 /100WBC 12/03/20 05:50 Neutrophils # (Manual) 12.0 10^3/uL (1.5-6.6) H 12/02/20 14:30 Lymphocytes # (Manual) 0.8 10^3/uL (1.5-3.5) L 12/02/20 14:30 Monocytes # (Manual) 0.5 10^3/uL (0.0-1.0) 12/02/20 14:30 Eosinophils # (Manual) 0.0 10^3/uL (0-0.7) 12/02/20 14:30 Basophils # (Manual) 0.0 10^3/uL (0-0.1) 12/02/20 14:30 Differential Comment MANUAL DIFFERENTIAL 12/02/20 14:30 WBC Morphology 1+ TOXIC GRANULATION (NORMAL) 12/02/20 14:30 Platelet Estimate NORMAL (130-450,000) (NORMAL) 12/02/20 14:30 Platelet Morphology NORMAL APPEARANCE (NORMAL) 12/02/20 14:30 RBC Morph Micro Appear 1+ ANISOCYTOSIS (NORMAL) 2+ MACROCYTOSIS (NORMAL) 12/02/20 14:30 RBC Morph Micro Appear 1+ ANISOCYTOSIS (NORMAL) 2+ MACROCYTOSIS (NORMAL) 12/02/20 14:30 PT 12.7 secs (9.9-12.6) H 12/02/20 14:58 INR 1.1 (0.8-1.2) 12/02/20 14:58 Sodium 138 mmol/L (135-145) 12/03/20 05:50 Potassium 3.4 mmol/L (3.5-5.0) L 12/03/20 05:50 Chloride 105 mmol/L (101-111) 12/03/20 05:50 Carbon Dioxide 22 mmol/L (21-32) 12/03/20 05:50 Anion Gap 11.0 (6-13) 12/03/20 05:50 BUN 7 mg/dL (6-20) 12/03/20 05:50 Creatinine 0.5 mg/dL (0.4-1.0) 12/03/20 05:50 Estimated GFR (MDRD) 142 (>89) 12/03/20 05:50 Glucose 101 mg/dL (70-100) H 12/03/20 05:50 Calcium 8.3 mg/dL (8.5-10.3) L 12/03/20 05:50 Total Bilirubin 1.8 mg/dL (0.2-1.0) H 12/03/20 05:50 AST 32 IU/L (10-42) 12/03/20 05:50 ALT 18 IU/L (10-60) 12/03/20 05:50 Alkaline Phosphatase 78 IU/L (42-121) 12/03/20 05:50 Total Protein 6.4 g/dL (6.7-8.2) L 12/03/20 05:50 Albumin 3.8 g/dL (3.2-5.5) 12/03/20 05:50 Globulin 2.6 g/dL (2.1-4.2) 12/03/20 05:50 Albumin/Globulin Ratio 1.5 (1.0-2.2) 12/03/20 05:50 Triglycerides 55 mg/dL (-149) 12/02/20 14:30 Cholesterol 203 mg/dL (-199) H 12/02/20 14:30 LDL Cholesterol, Calc 93 mg/dL (-129) 12/02/20 14:30 VLDL Cholesterol 11 mg/dL 12/02/20 14:30 HDL Cholesterol 99 mg/dL (60-) 12/02/20 14:30 LDL/HDL Ratio 0.9 (<4.4) 12/02/20 14:30 Cholesterol/HDL Ratio 2.1 (<4.4) 12/02/20 14:30 Lipase 123 U/L (22-51) H 12/03/20 05:50 Urine Color YELLOW 12/02/20 17:13 Urine Clarity CLEAR (CLEAR) 12/02/20 17:13 Urine pH 7.0 PH (5.0-7.5) 12/02/20 17:13 Ur Specific [place] 1.010 (1.002-1.030) 12/02/20 17:13 Urine Protein NEGATIVE mg/dL (NEGATIVE) 12/02/20 17:13 Urine Glucose (UA) NEGATIVE mg/dL (NEGATIVE) 12/02/20 17:13 Urine Ketones 40 mg/dL (NEGATIVE) H 12/02/20 17:13 Urine Occult Blood NEGATIVE (NEGATIVE) 12/02/20 17:13 Urine Nitrite NEGATIVE (NEGATIVE) 12/02/20 17:13 Urine Bilirubin NEGATIVE (NEGATIVE) 12/02/20 17:13 Urine Urobilinogen 0.2 (NORMAL) E.U./dL (NORMAL) 12/02/20 17:13 Ur Leukocyte Esterase NEGATIVE (NEGATIVE) 12/02/20 17:13 Ur Microscopic Review NOT INDICATED 12/02/20 17:13 Urine Culture Comments NOT INDICATED 12/02/20 17:13 Nasal Adenovirus (PCR) NOT DETECTED 12/02/20 16:05 Nasal B. parapertussis DNA (PCR) NOT DETECTED 12/02/20 16:05 Nasal Coronavir 229E PCR NOT DETECTED 12/02/20 16:05 Nasal Coronavir HKU1 PCR NOT DETECTED 12/02/20 16:05 Nasal Coronavir NL63 PCR NOT DETECTED 12/02/20 16:05 Nasal Coronavir OC43 PCR NOT DETECTED 12/02/20 16:05 Nasal Enterovir/Rhinovir PCR NOT DETECTED 12/02/20 16:05 Nasal Influenza B PCR NOT DETECTED 12/02/20 16:05 Nasal Influenza A PCR NOT DETECTED 12/02/20 16:05 Nasal Parainfluen 1 PCR NOT DETECTED 12/02/20 16:05 Nasal Parainfluen 2 PCR NOT DETECTED 12/02/20 16:05 Nasal Parainfluen 3 PCR NOT DETECTED 12/02/20 16:05 Nasal Parainfluen 4 PCR NOT DETECTED 12/02/20 16:05 Nasal RSV (PCR) NOT DETECTED 12/02/20 16:05 Nasal B.pertussis DNA PCR NOT DETECTED 12/02/20 16:05 Nasal C.pneumoniae (PCR) NOT DETECTED 12/02/20 16:05 [place] Human Metapneumo PCR NOT DETECTED 12/02/20 16:05 Nasal M.pneumoniae (PCR) NOT DETECTED 12/02/20 16:05 Nasal SARS-CoV-2 (PCR) NOT DETECTED 12/02/20 16:05 Urine Opiates Screen POSITIVE (NEGATIVE) H 12/02/20 17:13 Ur Oxycodone Screen NEGATIVE (NEGATIVE) 12/02/20 17:13 Urine Methadone Screen NEGATIVE (NEGATIVE) 12/02/20 17:13 Ur Propoxyphene Screen NEGATIVE (NEGATIVE) 12/02/20 17:13 Ur Barbiturates Screen NEGATIVE (NEGATIVE) 12/02/20 17:13 Ur Tricyclics Screen NEGATIVE (NEGATIVE) 12/02/20 17:13 Ur Phencyclidine Scrn NEGATIVE (NEGATIVE) 12/02/20 17:13 Ur Amphetamine Screen NEGATIVE (NEGATIVE) 12/02/20 17:13 U Methamphetamines Scrn NEGATIVE (NEGATIVE) 12/02/20 17:13 U Benzodiazepines Scrn NEGATIVE (NEGATIVE) 12/02/20 17:13 Urine Cocaine Screen NEGATIVE (NEGATIVE) 12/02/20 17:13 U Cannabinoids Screen POSITIVE (NEGATIVE) H 12/02/20 17:13 Ethyl Alcohol < 5.0 mg/dL 06/19/21 14:58 - Procedures Procedures: Procedures MANUAL ASSIST DELIV NEC (11/14/14) ABX Reporting Has patient been on IV antibiotics over the past 48 hours?: No
[2020-12-04] MEDS: LORazepam 2 MG/ML VIAL IVP PRN ×4 (00:09→21:29)
[2020-12-04] MEDS: SODIUM CHLORIDE FLUSH 0.9% 10 ML SYRINGE IVP SCH ×3 (00:10→17:06)
[2020-12-04] MEDS: HYDROmorphone 0.5 MG/0.5 ML SYRINGE IVP PRN ×6 (00:10→22:43)
[2020-12-04 05:53] LABS: BASOPHILS % (AUTO) 0.5 %; EOSINOPHILS # (AUTO) 0.1 10^3/uL (0.0-0.7); EOSINOPHILS % (AUTO) 1.5 %; HCT - HEMATOCRIT 38.8 % (37.0-47.0); HGB - HEMOGLOBIN 13.1 g/dL (12.0-16.0); LYMPHOCYTES # (AUTO) 1.1 10^3/uL (1.5-3.5); LYMPHOCYTES % (AUTO) 16.7 %; MEAN CORPUSCULAR HEMOGLOBIN 37.1 pg (27.0-31.0); MEAN CORPUSCULAR HGB CONC 33.8 g/dL (32.0-36.0); MEAN CORPUSCULAR VOLUME 109.9 fL (81.0-99.0); MEAN PLATELET VOLUME 11.1 fL (7.9-10.8); MONOCYTES # (AUTO) 0.5 10^3/uL (0.0-1.0); MONOCYTES % (AUTO) 7.8 %; NEUTROPHILS # (AUTO) 4.8 10^3/uL (1.5-6.6); NEUTROPHILS % (AUTO) 72.9 %; PLT - PLATELET COUNT 104 10^3/uL (130-450); RED BLOOD COUNT 3.53 10^6/uL (4.20-5.40); RED CELL DISTRIBUTION WIDTH 12.6 % (12.0-15.0); WHITE BLOOD COUNT 6.6 x10^3/uL (4.8-10.8)
[2020-12-04 06:03] LABS: ALBUMIN 3.3 g/dL (3.2-5.5); ALBUMIN/GLOBULIN RATIO 1.1 (1.0-2.2); BILIRUBIN,TOTAL 1.4 mg/dL (0.2-1.0); CALCIUM 8.1 mg/dL (8.5-10.3); CREATININE 0.5 mg/dL (0.4-1.0); POTASSIUM 3.6 mmol/L (3.5-5.0); TOTAL PROTEIN 6.2 g/dL (6.7-8.2)
[2020-12-04] MEDS: ONDANSETRON 4 MG/2 ML VIAL IVP PRN ×2 (06:26→15:11)
[2020-12-04] MEDS: SODIUM CHLORIDE FLUSH 0.9% 10 ML SYRINGE IVP PRN ×3 (06:26→12:45)
[2020-12-04] MEDS: PANTOPRAZOLE 40 MG TABLET PO SCH (08:33)
[2020-12-04] MEDS: polyethylene glycoL 3350 17 GM PACKET PO SCH (08:33)
[2020-12-04] MEDS: NICOTINE 14 MG PATCH TOP SCH (08:34)
[2020-12-04] MEDS: SODIUM CHLORIDE 0.9% 1,000 ML IV SCH ×2 (10:07→21:29)
--- NOTE | 2020-12-04 19:19 | PROVIDER PROGRESS NOTE ---
Assessment/Plan - Problem List (1) Pancreatitis Qualifiers: Chronicity: acute Pancreatitis type: unspecified pancreatitis type Acute pancreatitis complication: unspecified Qualified Code(s): K85.90 - Acute pancreatitis without necrosis or infection, unspecified Assessment/Plan: Continue IV hydration. Continue pain management. Advance diet to regular diet in the morning. (2) Alcohol abuse Assessment/Plan: On CIWA protocol (3) GERD (gastroesophageal reflux disease) Assessment/Plan: Protonix 40 mg p.o. daily (4) Tobacco abuse Assessment/Plan: Nicotine patch 14 mg daily. - Current Meds Current Meds: Current Medications Generic Name Dose Route Start Last Admin Trade Name Freq PRN Reason Stop Dose Admin Hydromorphone HCl 0.5 mg 12/02/20 16:27 12/04/20 18:28 Hydromorphone 0.5 Mg/0.5 Ml Syringe IVP 0.5 mg Q2H PRN Administration Pain 8 to 10 Sodium Chloride 1,000 mls @ 83.333 mls/hr 12/04/20 09:00 12/04/20 10:07 Normal Saline 0.9% IV 83.333 mls/hr .Q12H LUCY Administration Lorazepam 2 mg 12/02/20 18:03 12/04/20 15:10 Lorazepam 2 Mg/Ml Vial IVP 2 mg Q30M PRN Administration CIWA >8 Protocol Nicotine 1 patch 12/02/20 18:05 12/04/20 08:34 Nicotine 14 Mg Patch TOP 1 patch DAILY LUCY Administration Ondansetron HCl 4 mg 12/02/20 16:27 12/04/20 15:11 Ondansetron 4 Mg/2 Ml Vial IVP 4 mg Q6HR PRN Administration Nausea / Vomiting Pantoprazole Sodium 40 mg 12/03/20 09:00 12/04/20 08:33 Pantoprazole 40 Mg Tablet PO 40 mg DAILY LUCY Administration Polyethylene Glycol 17 gm 12/04/20 09:00 12/04/20 08:33 Polyethylene Glycol 3350 17 Gm Packet PO 17 gm DAILY LUCY Administration Sodium Chloride 10 ml 12/02/20 16:27 12/04/20 12:45 Sodium Chloride Flush 0.9% 10 Ml Syringe IVP 10 ml PRN PRN Administration NEEDED PER PROVIDER ORDERS Sodium Chloride 10 ml 12/02/20 17:00 12/04/20 17:06 Sodium Chloride Flush 0.9% 10 Ml Syringe IVP Not Given 0100,0900,1700 LUCY - Lab Result Fish Bone Diagrams: 12/04/20 05:30 12/04/20 05:30 Subjective - Subjective Patient Reports: Other (Patient reported worsening pain this afternoon to the point of tear. However it seems to have currently subsided. She was sleepy at time of exam. Tolerated full liquid diet well.) Objective Vital Signs: Vital Signs - 24 hr 12/03/20 12/04/20 12/04/20 20:28 00:55 05:40 Temperature 37.3 C 36.8 C 37.1 C Heart Rate [ 97 98 96 Brachial] Respiratory 20 18 16 Rate Blood Pressure 123/88 H 138/90 H 132/89 H [Right Brachial artery] O2 Saturation 100 98 97 12/04/20 12/04/20 12/04/20 07:53 15:03 16:21 Temperature 37.1 C 37 C 36.8 C Heart Rate [ 102 H 104 H 101 H Brachial] Respiratory 17 20 20 Rate Blood Pressure 128/83 H 131/81 H 123/80 [Right Brachial artery] O2 Saturation 97 96 97 Oxygen O2 Source Room air I&O (Last 24 Hrs): Intake and Output Totals x24h 12/02/20 12/03/20 12/04/20 23:59 23:59 23:59 Intake Total 2358.533 1115.2 620 Output Total 850 1000 Balance 2358.533 265.2 -380 General: Alert, Oriented x3, Moderate distress HEENT: PERRLA, EOMI Neck: Supple, No JVD Cardiovascular: Regular rate, No murmurs Respiratory: Chest non-tender, No respiratory distress, Breath sounds nml Abdomen: Normal bowel sounds, Soft, Other (moderate tenderness) Extremities: No clubbing, No edema Skin: No rashes, No breakdown - Results Results: Laboratory Results WBC 6.6 x10^3/uL (4.8-10.8) 12/04/20 05:30 RBC 3.53 10^6/uL (4.20-5.40) L 12/04/20 05:30 Hgb 13.1 g/dL (12.0-16.0) 12/04/20 05:30 Hct 38.8 % (37.0-47.0) 12/04/20 05:30 MCV 109.9 fL (81.0-99.0) H 12/04/20 05:30 MCH 37.1 pg (27.0-31.0) H 12/04/20 05:30 MCHC 33.8 g/dL (32.0-36.0) 12/04/20 05:30 RDW 12.6 % (12.0-15.0) 12/04/20 05:30 Plt Count 104 10^3/uL (130-450) L 12/04/20 05:30 MPV 11.1 fL (7.9-10.8) H 12/04/20 05:30 Neut # (Auto) 4.8 10^3/uL (1.5-6.6) 12/04/20 05:30 Lymph # (Auto) 1.1 10^3/uL (1.5-3.5) L 12/04/20 05:30 [place] # (Auto) 0.5 10^3/uL (0.0-1.0) 12/04/20 05:30 Eos # (Auto) 0.1 10^3/uL (0.0-0.7) 12/04/20 05:30 Baso # (Auto) 0.0 10^3/uL (0.0-0.1) 12/04/20 05:30 Absolute Nucleated RBC 0.00 x10^3/uL 12/04/20 05:30 Total Counted 100 12/02/20 14:30 Band Neuts % (Manual) 2 % (0-10) 12/02/20 14:30 Abnorm Lymph % (Manual) 0 % 12/02/20 14:30 Nucleated RBC % 0.0 /100WBC 12/04/20 05:30 Neutrophils # (Manual) 12.0 10^3/uL (1.5-6.6) H 12/02/20 14:30 Lymphocytes # (Manual) 0.8 10^3/uL (1.5-3.5) L 12/02/20 14:30 Monocytes # (Manual) 0.5 10^3/uL (0.0-1.0) 12/02/20 14:30 Eosinophils # (Manual) 0.0 10^3/uL (0-0.7) 12/02/20 14:30 Basophils # (Manual) 0.0 10^3/uL (0-0.1) 12/02/20 14:30 Differential Comment MANUAL DIFFERENTIAL 12/02/20 14:30 WBC Morphology 1+ TOXIC GRANULATION (NORMAL) 12/02/20 14:30 Platelet Estimate NORMAL (130-450,000) (NORMAL) 12/02/20 14:30 Platelet Morphology NORMAL APPEARANCE (NORMAL) 12/02/20 14:30 RBC Morph Micro Appear 1+ ANISOCYTOSIS (NORMAL) 2+ MACROCYTOSIS (NORMAL) 12/02/20 14:30 RBC Morph Micro Appear 1+ ANISOCYTOSIS (NORMAL) 2+ MACROCYTOSIS (NORMAL) 12/02/20 14:30 PT 12.7 secs (9.9-12.6) H 12/02/20 14:58 INR 1.1 (0.8-1.2) 12/02/20 14:58 Sodium 131 mmol/L (135-145) L 12/04/20 05:30 Potassium 3.6 mmol/L (3.5-5.0) 12/04/20 05:30 Chloride 99 mmol/L (101-111) L 12/04/20 05:30 Carbon Dioxide 24 mmol/L (21-32) 12/04/20 05:30 Anion Gap 8.0 (6-13) 12/04/20 05:30 BUN 7 mg/dL (6-20) 12/04/20 05:30 Creatinine 0.5 mg/dL (0.4-1.0) 12/04/20 05:30 Estimated GFR (MDRD) 142 (>89) 12/04/20 05:30 Glucose 87 mg/dL (70-100) 12/04/20 05:30 Calcium 8.1 mg/dL (8.5-10.3) L 12/04/20 05:30 Total Bilirubin 1.4 mg/dL (0.2-1.0) H 12/04/20 05:30 AST 18 IU/L (10-42) 12/04/20 05:30 ALT 14 IU/L (10-60) 12/04/20 05:30 Alkaline Phosphatase 82 IU/L (42-121) 12/04/20 05:30 Total Protein 6.2 g/dL (6.7-8.2) L 12/04/20 05:30 Albumin 3.3 g/dL (3.2-5.5) 12/04/20 05:30 Globulin 2.9 g/dL (2.1-4.2) 12/04/20 05:30 Albumin/Globulin Ratio 1.1 (1.0-2.2) 12/04/20 05:30 Triglycerides 55 mg/dL (-149) 12/02/20 14:30 Cholesterol 203 mg/dL (-199) H 12/02/20 14:30 LDL Cholesterol, Calc 93 mg/dL (-129) 12/02/20 14:30 VLDL Cholesterol 11 mg/dL 12/02/20 14:30 HDL Cholesterol 99 mg/dL (60-) 12/02/20 14:30 LDL/HDL Ratio 0.9 (<4.4) 12/02/20 14:30 Cholesterol/HDL Ratio 2.1 (<4.4) 12/02/20 14:30 Lipase 70 U/L (22-51) H 12/04/20 05:30 Urine Color YELLOW 12/02/20 17:13 Urine Clarity CLEAR (CLEAR) 12/02/20 17:13 Urine pH 7.0 PH (5.0-7.5) 12/02/20 17:13 Ur Specific [place] 1.010 (1.002-1.030) 12/02/20 17:13 Urine Protein NEGATIVE mg/dL (NEGATIVE) 12/02/20 17:13 Urine Glucose (UA) NEGATIVE mg/dL (NEGATIVE) 12/02/20 17:13 Urine Ketones 40 mg/dL (NEGATIVE) H 12/02/20 17:13 Urine Occult Blood NEGATIVE (NEGATIVE) 12/02/20 17:13 Urine Nitrite NEGATIVE (NEGATIVE) 12/02/20 17:13 Urine Bilirubin NEGATIVE (NEGATIVE) 12/02/20 17:13 Urine Urobilinogen 0.2 (NORMAL) E.U./dL (NORMAL) 12/02/20 17:13 Ur Leukocyte Esterase NEGATIVE (NEGATIVE) 12/02/20 17:13 Ur Microscopic Review NOT INDICATED 12/02/20 17:13 Urine Culture Comments NOT INDICATED 12/02/20 17:13 Nasal Adenovirus (PCR) NOT DETECTED 12/02/20 16:05 Nasal B. parapertussis DNA (PCR) NOT DETECTED 12/02/20 16:05 Nasal Coronavir 229E PCR NOT DETECTED 12/02/20 16:05 Nasal Coronavir HKU1 PCR NOT DETECTED 12/02/20 16:05 Nasal Coronavir NL63 PCR NOT DETECTED 12/02/20 16:05 Nasal Coronavir OC43 PCR NOT DETECTED 12/02/20 16:05 Nasal Enterovir/Rhinovir PCR NOT DETECTED 12/02/20 16:05 Nasal Influenza B PCR NOT DETECTED 12/02/20 16:05 Nasal Influenza A PCR NOT DETECTED 12/02/20 16:05 Nasal Parainfluen 1 PCR NOT DETECTED 12/02/20 16:05 Nasal Parainfluen 2 PCR NOT DETECTED 12/02/20 16:05 Nasal Parainfluen 3 PCR NOT DETECTED 12/02/20 16:05 Nasal Parainfluen 4 PCR NOT DETECTED 12/02/20 16:05 Nasal RSV (PCR) NOT DETECTED 12/02/20 16:05 Nasal B.pertussis DNA PCR NOT DETECTED 12/02/20 16:05 Nasal C.pneumoniae (PCR) NOT DETECTED 12/02/20 16:05 [place] Human Metapneumo PCR NOT DETECTED 12/02/20 16:05 Nasal M.pneumoniae (PCR) NOT DETECTED 12/02/20 16:05 Nasal SARS-CoV-2 (PCR) NOT DETECTED 12/02/20 16:05 Urine Opiates Screen POSITIVE (NEGATIVE) H 12/02/20 17:13 Ur Oxycodone Screen NEGATIVE (NEGATIVE) 12/02/20 17:13 Urine Methadone Screen NEGATIVE (NEGATIVE) 12/02/20 17:13 Ur Propoxyphene Screen NEGATIVE (NEGATIVE) 12/02/20 17:13 Ur Barbiturates Screen NEGATIVE (NEGATIVE) 12/02/20 17:13 Ur Tricyclics Screen NEGATIVE (NEGATIVE) 12/02/20 17:13 Ur Phencyclidine Scrn NEGATIVE (NEGATIVE) 12/02/20 17:13 Ur Amphetamine Screen NEGATIVE (NEGATIVE) 12/02/20 17:13 U Methamphetamines Scrn NEGATIVE (NEGATIVE) 12/02/20 17:13 U Benzodiazepines Scrn NEGATIVE (NEGATIVE) 12/02/20 17:13 Urine Cocaine Screen NEGATIVE (NEGATIVE) 12/02/20 17:13 U Cannabinoids Screen POSITIVE (NEGATIVE) H 12/02/20 17:13 Ethyl Alcohol < 5.0 mg/dL 12/02/20 14:58 - Procedures Procedures: Procedures MANUAL ASSIST DELIV NEC (11/14/14) ABX Reporting Has patient been on IV antibiotics over the past 48 hours?: No
[2020-12-05] MEDS: SODIUM CHLORIDE FLUSH 0.9% 10 ML SYRINGE IVP SCH ×2 (00:35→06:15)
[2020-12-05 05:39] LABS: BASOPHILS % (AUTO) 0.4 %; EOSINOPHILS # (AUTO) 0.2 10^3/uL (0.0-0.7); EOSINOPHILS % (AUTO) 3.7 %; HCT - HEMATOCRIT 37.1 % (37.0-47.0); HGB - HEMOGLOBIN 12.5 g/dL (12.0-16.0); LYMPHOCYTES # (AUTO) 1.2 10^3/uL (1.5-3.5); LYMPHOCYTES % (AUTO) 25.9 %; MEAN CORPUSCULAR HEMOGLOBIN 37.1 pg (27.0-31.0); MEAN CORPUSCULAR HGB CONC 33.7 g/dL (32.0-36.0); MEAN CORPUSCULAR VOLUME 110.1 fL (81.0-99.0); MEAN PLATELET VOLUME 11.3 fL (7.9-10.8); MONOCYTES # (AUTO) 0.5 10^3/uL (0.0-1.0); NEUTROPHILS # (AUTO) 2.7 10^3/uL (1.5-6.6); NEUTROPHILS % (AUTO) 59.6 %; PLT - PLATELET COUNT 115 10^3/uL (130-450); RED BLOOD COUNT 3.37 10^6/uL (4.20-5.40); RED CELL DISTRIBUTION WIDTH 12.3 % (12.0-15.0); WHITE BLOOD COUNT 4.6 x10^3/uL (4.8-10.8)
[2020-12-05 05:45] LABS: SLIDE REVIEW? Indicated
[2020-12-05 05:53] LABS: ALBUMIN/GLOBULIN RATIO 1.3 (1.0-2.2); CALCIUM 8.1 mg/dL (8.5-10.3); CREATININE 0.5 mg/dL (0.4-1.0); POTASSIUM 3.2 mmol/L (3.5-5.0); TOTAL PROTEIN 5.3 g/dL (6.7-8.2)
[2020-12-05 06:10] LABS: PLATELET ESTIMATE, MANUAL DECREASED (<130,000) (NORMAL); PLATELET MORPHOLOGY NORMAL APPEARANCE (NORMAL); RBC MORPHOLOGY (MULTIPLE) 1+ MACROCYTOSIS (NORMAL); WBC MORPHOLOGY (MULTIPLE) NORMAL APPEARANCE (NORMAL)
[2020-12-05] MEDS: HYDROmorphone 0.5 MG/0.5 ML SYRINGE IVP PRN (06:15)
[2020-12-05] MEDS: LORazepam 2 MG/ML VIAL IVP PRN (07:39)
[2020-12-05] MEDS ORDERED: POTASSIUM CHLORIDE 20 MEQ TABLET PO ONE (07:47)
[2020-12-05] MEDS ORDERED: MULTIVITAMIN W/MINERALS TABLET PO SCH (08:00)
[2020-12-05] MEDS: NICOTINE 14 MG PATCH TOP SCH (08:25)
[2020-12-05] MEDS: polyethylene glycoL 3350 17 GM PACKET PO SCH (08:26)
[2020-12-05] MEDS: PANTOPRAZOLE 40 MG TABLET PO SCH (08:26)
[2020-12-05] MEDS: SODIUM CHLORIDE 0.9% 1,000 ML IV SCH (08:32)
[2020-12-05] MEDS ORDERED: THIAMINE 100 MG TABLET PO SCH (09:00)
[2020-12-05 10:10] VITALS: BP 139/97
--- NOTE | 2020-12-05 10:55 | Discharge Plan ---
Discharge Plan Problem Reviewed?: Yes Disposition: Home, Self Care Condition: Stable Prescriptions: oxyCODONE [Roxicodone] 5 mg PO Q4-6H PRN #20 tablet PRN Reason: Pain Multivitamin W/Minerals [Theragran M] 1 tab PO DAILYWM #30 tablet Thiamine [Vitamin B-1] 100 mg PO DAILY #30 tablet Diet: Regular Activity Restrictions: Activity as Tolerated Shower Restrictions: No (fall precaution) Instruction Topics: Pancreatitis, Alcoholism Get Help, Addiction Alcohol Health Concerns: alcoholic pancreatitis Plan of Treatment: You tolerate regular diet. we strongly advise pt quit alcohol as you agree to do, also advise you quit cigarette smoking as well. Care Goals: stabilization of your medical conditions, quit of alcohol and cigarette smoking. Assessment: discussed the care plan with you, answered your questions, you agreed. Additional Instructions or Follow Up instructions: You may followup with your PCP in 1-2 weeks. Should your symptoms return or worsen, you may present ER or call 911 for help. No Smoking: If you smoke, Please STOP! Call for help.
--- NOTE | 2020-12-05 11:02 | DISCHARGE SUMMARY ---
Discharge Summary Admit Date: 12/03/20 Discharge Date: 12/05/20 Discharging Provider: Daljit Smith Condition at Discharge: Stable Discharge Disposition: 01 Home, Self Care Discharge Facility Name: home - DIAGNOSES Discharge Diagnoses with Status of Each Condition: (1) Pancreatitis resolved. Patient tolerated regular diet without nausea or vomiting or abdominal pain. Lipase is down to 69. (2) Alcohol abuse Strongly advised patient quitted alcohol, social work also help patient for quitted alcohol. Patient verbally stated she will quit alcohol drinking (3) GERD (gastroesophageal reflux disease) stable (4) Tobacco abuse Advised patient quit cigarette smoking as well. (5)chronic pain pt is prescribed oxycodone PRN for short term and advise pt followup with her PCP for management. - HPI History of Present Illness: [facility] Patient is a 34-year-old female with medical history significant for peptic ulcer, GERD, renal calculi, alcohol abuse who presented to the ED with complaint of severe epigastric, left upper quadrant abdominal pain, nausea and vomiting. Symptoms started today around 11 AM when she woke up from sleep. She last drank alcohol yesterday. She reports having about 4 drinks. In the ED work-up included a CT of the abdomen pelvis which showed diffuse pancreatic edema with peripancreatic inflammatory changes in the adjacent fat. It also showed an enlarged liver. She is being admitted for further management of pancreatitis. At bedside she is very somnolent. She falls asleep midsentence. She currently rates her abdominal pain 5 out of 10. She denies chest pain, dyspnea, fever or chills. She was nauseous and last vomited in the ED. - HOSPITAL COURSE Hospital Course: Patient was admitted for nausea, vomiting, abdominal pain. Patient had elevated lipase, CT of the abdomen show patient had acute pancreatitis. After the patient had bowel rest, intravenous IV fluids, pain control, Patient's lipase is down to 69, patient's nausea, vomiting and abdominal pain was controlled. patient tolerated regular diet without nausea, vomiting, abdominal pain. - ALLERGIES Allergies/Adverse Reactions: Allergies Allergy/AdvReac Type Severity Reaction Status Date / Time No Known Drug Allergies Allergy Verified 12/02/20 14:25 - MEDICATIONS Home Medications: Ambulatory Orders Medication Instructions Recorded Confirmed Omeprazole 40 mg PO DAILY #30 cap 07/23/20 12/02/20 Multivitamin W/Minerals [Theragran 1 tab PO DAILYWM #30 tablet 12/05/20 M] Thiamine [Vitamin B-1] 100 mg PO DAILY #30 tablet 12/05/20 oxyCODONE [Roxicodone] 5 mg PO Q4-6H PRN #20 tablet 12/05/20 - PHYSICAL EXAM AT DISCHARGE General Appearance: positive: No acute distress, Alert. negative: Lethargic Eyes Bilateral: positive: Normal inspection, PERRL, No lid inflammation ENT: positive: ENT inspection nml, No signs of dehydration. negative: Purulent nasal drainage Neck: positive: Nml inspection, Trachea midline. negative: Thyromegaly, Tracheal deviation Respiratory: positive: Chest non-tender, No respiratory distress. negative: Wheezes Cardiovascular: positive: Regular rate & rhythm, No murmur. negative: Tachycardia, Bradycardia, Systolic murmur, Diastolic murmur Peripheral Pulses: positive: 2+ Abdomen: positive: Non-tender, Nml bowel sounds, No distention. negative: Tenderness Back: positive: Nml inspection Skin: positive: Color nml, Warm, Dry. negative: Cyanosis, Diaphoresis Extremities: positive: Non-tender, Full ROM, Nml appearance. negative: No pedal edema, Calf tenderness Neurologic/Psychiatric: positive: Oriented x3, Motor nml, Sensation nml, Mood/affect nml. negative: Weakness, Sensory loss, Facial droop, Slurred/abnml speech, Depressed mood/affect - LABS Result Diagrams: 12/05/20 05:10 12/05/20 05:10 - FOLLOW UP Follow Up: You tolerate regular diet. we strongly advise pt quit alcohol as you agree to do , also advise you quit cigarette smoking as well. You may followup with your PCP in 1-2 weeks. Should your symptoms return or worsen, you may present ER or call 911 for help. - TIME SPENT Time Spent in Discharge (Minutes): 30
== END 2020-12-05 11:50 | disposition home or self-care (01) | DRG 440 ==
LOC: ED 14:01 → MS2 16:27
PROVIDERS: ADMIT Internal Medicine; ATTEND Nurse Practitioner Gerontology
DX: K85.90 Acute pancreatitis without necrosis or infection, unspecified (principal); K21.9 Gastro-esophageal reflux disease without esophagitis; F10.10 Alcohol abuse, uncomplicated; F17.210 Nicotine dependence, cigarettes, uncomplicated; G89.29 Other chronic pain; Z79.899 Other long term (current) drug therapy; Z20.822 Contact with and (suspected) exposure to COVID-19
CPT/HCPCS: 0202U; 36415; 74177; 76705; 80053; 80061; 80306; 80320; 81003; 83690; 85025; 85610; 96365; 96375; 96376; 99285; A9270; J1170; J2060; J3411; Q9967; 81001; 83721; 87086

== ENCOUNTER 2020-12-26 08:18 | Outpatient (CLI) | payer MEDICAID ==
--- NOTE | 2020-12-26 09:10 | XRAY Report ---
PROCEDURE: Tib/Fib LT INDICATIONS: LEG PAIN LEFT TECHNIQUE: 2 views of the tibia and fibula were acquired. COMPARISON: Concurrent study of the left ankle. FINDINGS: Bones: No fractures or dislocations. No suspicious bony lesions. Soft tissues: No suspicious soft tissue calcifications or masses. IMPRESSION: 1. No fracture or dislocation. Reviewed by: Gordo Wills MD on 12/26/2020 9:09 AM PDT Approved by: Gordo Wills MD on 12/26/2020 9:09 AM PDT Station ID: [id number]
--- NOTE | 2020-12-26 09:26 | XRAY Report ---
PROCEDURE: Ankle 3 View LT INDICATIONS: PAIN IN LEFT ANKLE TECHNIQUE: 3 views of the ankle were acquired. COMPARISON: Concurrent study of the left foot and left tibia and fibula. FINDINGS: Bones: No fractures or dislocations. Ankle mortise is normally aligned. No suspicious bony lesions . Soft tissues: No tibiotalar joint effusion. Achilles tendon appears normal. IMPRESSION: 1. No fracture or dislocation. Reviewed by: Gordo Wills MD on 12/26/2020 9:25 AM PDT Approved by: Gordo Wills MD on 12/26/2020 9:25 AM PDT Station ID: [id number]
--- NOTE | 2020-12-26 10:05 | XRAY Report ---
PROCEDURE: Foot 3 View LT INDICATIONS: PAIN IN LEFT FOOT AND ANKLE TECHNIQUE: 3 views of the foot were acquired. COMPARISON: None FINDINGS: Bones: No fractures or dislocations. No suspicious bony lesions. Soft tissues: No tibiotalar joint effusion. Achilles tendon appears normal. IMPRESSION: Unremarkable radiographic examination of left foot. Reviewed by: Flo Olsen MD on 12/26/2020 10:04 AM PDT Approved by: Flo Olsen MD on 12/26/2020 10:04 AM PDT Station ID: [id number]
== END 2020-12-26 08:19 | disposition home or self-care (01) ==
LOC: DI.S 08:18
PROVIDERS: ATTEND Physician Assistant
DX: M79.605 Pain in left leg (principal); M79.672 Pain in left foot

== ENCOUNTER 2021-01-25 17:34 | Outpatient (CLI) | payer MEDICAID, OTHER | END 2021-01-25 17:35 | disposition critical access hospital (66) | LOC: EMS 17:34 | DX: M54.2 Cervicalgia (principal) | CPT/HCPCS: A0425; A0429; A0999 ==

== ENCOUNTER 2021-01-25 17:56 | Emergency (ER) | payer OTHER, MEDICAID ==
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
[2021-01-25] MEDS ORDERED: KETOROLAC 60 MG/2 ML VIAL IM STA (18:28)
[2021-01-25] MEDS ORDERED: HYDROmorphone 1 MG/ML CARPUJECT IM STA (18:28)
--- NOTE | 2021-01-25 19:17 | CT Report ---
PROCEDURE: CERVICAL SPINE WO INDICATIONS: neck/back inj TECHNIQUE: Noncontrast 3 mm thick sections acquired from the skull base to the T4 level. Sagittal and coronal r eformats were then constructed. For radiation dose reduction, the following was used: automated exp osure control, adjustment of mA and/or kV according to patient size. COMPARISON: None. FINDINGS: Image quality: Excellent. Bones: No fractures or dislocations. Visualized superior ribs are intact. Soft tissues: Right maxillary sinus mucosal thickening or mucous retention cyst. Minimal mucosal thi ckening in the left maxillary sinus. Prevertebral soft tissues are normal in thickness. No paraverte bral hematomas. No apical pneumothoraces. IMPRESSION: No acute osseous abnormality. Reviewed by: Sami Dee MD on 01/25/2021 7:15 PM PDT Approved by: Sami Dee MD on 01/25/2021 7:15 PM PDT Station ID: [id number]
--- NOTE | 2021-01-25 19:28 | XRAY Report ---
PROCEDURE: Ribs w/PA Chest LT INDICATIONS: neck/back inj TECHNIQUE: 4 views of the left ribs were acquired, along with a single view chest. COMPARISON: Lung bases on CT abdomen and pelvis 12/02/2020. FINDINGS: Surgical changes and devices: None. Bones and chest wall: No fractures or dislocations. No suspicious bony lesions. Overlying soft tis sues appear unremarkable. Lungs and pleura: No pleural effusions or pneumothorax. Lungs appear clear. Mediastinum: Mediastinal contours appear normal. Heart size is normal. IMPRESSION: No displaced left-sided rib fracture. Reviewed by: Sami Dee MD on 01/25/2021 7:27 PM PDT Approved by: Sami Dee MD on 01/25/2021 7:27 PM PDT Station ID: [id number]
[2021-01-25 19:49] VITALS: BP 143/87
== END 2021-01-25 20:00 | disposition home or self-care (01) ==
LOC: EDUNIT# → ED 17:56 → SUPCPDRO 17:56 → ED 20:00
DX: S20.212A Contusion of left front wall of thorax, initial encounter (principal); S19.9XXA Unspecified injury of neck, initial encounter; Z79.899 Other long term (current) drug therapy; S20.219A Contusion of unspecified front wall of thorax, initial encounter; Y04.8XXA Assault by other bodily force, initial encounter
CPT/HCPCS: 71101; 72125; 96372; 99283; 99284; J1170

== ENCOUNTER 2021-08-06 05:46 | Inpatient (IN) | payer MEDICAID, OTHER ==
[2021-08-06 06:07] LABS: BASOPHILS % (AUTO) 0.3 %; EOSINOPHILS % (AUTO) 0.7 %; HGB - HEMOGLOBIN 13.8 g/dL (12.0-16.0); LYMPHOCYTES % (AUTO) 15.3 %; MEAN CORPUSCULAR HEMOGLOBIN 35.2 pg (27.0-31.0); MEAN CORPUSCULAR HGB CONC 33.7 g/dL (32.0-36.0); MEAN CORPUSCULAR VOLUME 104.6 fL (81.0-99.0); MEAN PLATELET VOLUME 10.7 fL (7.9-10.8); MONOCYTES % (AUTO) 7.6 %; NEUTROPHILS % (AUTO) 75.8 %; PLT - PLATELET COUNT 234 10^3/uL (130-450); RED BLOOD COUNT 3.92 10^6/uL (4.20-5.40); RED CELL DISTRIBUTION WIDTH 13.1 % (12.0-15.0); WHITE BLOOD COUNT 9.2 x10^3/uL (4.8-10.8)
[2021-08-06 06:09] LABS: ABNORMAL LYMPHS % (MANUAL) 0 %; BAND NEUTROPHILS % (MANUAL) 0 %; HCG UR QUAL NEGATIVE
[2021-08-06 06:10] LABS: BILIRUBIN,URINE NEGATIVE (NEGATIVE); CLARITY,URINE CLEAR (CLEAR); GLUCOSE, URINE (UA) 500 mg/dL (NEGATIVE); KETONES,URINE (UA) 15 mg/dL (NEGATIVE); LEUKOCYTE ESTERASE, URINE TRACE (NEGATIVE); NITRITE,URINE NEGATIVE (NEGATIVE); OCCULT BLOOD,URINE NEGATIVE (NEGATIVE); PH,URINE 5.5 PH (5.0-7.5); PROTEIN,URINE NEGATIVE (NEGATIVE); UROBILINOGEN,URINE 0.2 (NORMAL) E.U./dL (NORMAL)
[2021-08-06] MEDS ORDERED: SODIUM CHLORIDE 0.9% 1,000 ML IV STA (06:10)
[2021-08-06] MEDS ORDERED: ONDANSETRON 4 MG/2 ML VIAL IVP STA (06:10)
[2021-08-06] MEDS ORDERED: FAMOTIDINE 20 MG/2 ML VIAL IVP STA (06:10)
[2021-08-06] MEDS ORDERED: MORPHINE 2 MG/ML CARPUJECT IVP STA (06:10)
[2021-08-06 06:14] LABS: BACTERIA,URINE Rare /HPF (None Seen); RBC,URINE None Seen /HPF (0-5); SQUAMOUS EPITHELIAL CELL,UR MOD Squamous (<= Few); WBC,URINE 0-3 /HPF (0-5)
[2021-08-06 06:28] LABS: DIFFERENTIAL COMMENT MANUAL DIFFERENTIAL; LYMPHOCYTES # (MANUAL) 1.2 10^3/uL (1.5-3.5); LYMPHOCYTES % (MANUAL) 13 %; MONOCYTES # (MANUAL) 0.5 10^3/uL (0.0-1.0); NEUTROPHILS # (MANUAL) 7.5 10^3/uL (1.5-6.6); PLATELET ESTIMATE, MANUAL NORMAL (130-450,000) (NORMAL); PLATELET MORPHOLOGY NORMAL APPEARANCE (NORMAL); RBC MORPHOLOGY (MULTIPLE) NORMAL APPEARANCE (NORMAL); WBC MORPHOLOGY (MULTIPLE) NORMAL APPEARANCE (NORMAL)
[2021-08-06] MEDS ORDERED: KETOROLAC 15 MG/ML VIAL IVP STA (06:36)
[2021-08-06 06:39] LABS: ALBUMIN 3.6 g/dL (3.2-5.5); ALBUMIN/GLOBULIN RATIO 1.2 (1.0-2.2); BILIRUBIN,TOTAL 1.3 mg/dL (0.2-1.0); CALCIUM 8.3 mg/dL (8.5-10.3); CREATININE 0.7 mg/dL (0.4-1.0); TOTAL PROTEIN 6.6 g/dL (6.7-8.2)
[2021-08-06] MEDS ORDERED: POTASSIUM CHLOR 10 MEQ/100 ML 10 MEQ/100 ML BAG IV ONE (06:39)
--- NOTE | 2021-08-06 06:40 | ED Physician Documentation ---
History of Present Illness - Stated complaint Stated Complaint: BACK/ABD PX - Chief complaint Chief Complaint: Abd Pain - History obtained from History obtained from: Patient - Additonal information Additional information: 35yF with pmh etoh pancreatitis and kidney stones p/w epigastric pain sudden onset waking her from sleep at 2am radiating to the back a/w 6 episodes nbnb n/v and 2 loose dark brown stools. severe 10/10 pain, aching, constant, worse with pressing on the area. denies fever or urinary sx. No history of abdominal surgeries. 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 : Kidney stones HEENT: None Psych: None Musculoskeletal: None Derm: None - Past Surgical History Past Surgical History: Yes /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: Other HEENT: Tonsil/Adenoidectomy - Present Medications Home Medications: Ambulatory Orders Medication Instructions Recorded Confirmed Omeprazole 40 mg PO DAILY #30 cap 07/23/20 12/02/20 Multivitamin W/Minerals [Theragran 1 tab PO DAILYWM #30 tablet 12/05/20 M] Thiamine [Vitamin B-1] 100 mg PO DAILY #30 tablet 12/05/20 oxyCODONE [Roxicodone] 5 mg PO Q4-6H PRN #20 tablet 12/05/20 HYDROcod/ACETAM 5/325 [[place] 5/325] 1 - 2 tab PO Q6H PRN #15 tablet 01/25/21 - Allergies Allergies/Adverse Reactions: Allergies Allergy/AdvReac Type Severity Reaction Status Date / Time No Known Drug Allergies Allergy Verified 08/06/21 05:59 - Social History Does the pt smoke?: Yes Smoking Status: Current every day smoker Does the pt drink ETOH?: No Does the pt have substance abuse?: Yes - Immunizations Immunizations are current?: Yes - POLST Patient has POLST: No POLST Status: Full Code PD ED PE NORMAL - Vitals Vital signs reviewed: Yes - General General: Alert and oriented X 3, Well developed/nourished, Other (moderate distress) - HEENT HEENT: Atraumatic, PERRL, EOMI, Moist mucous membranes, Pharynx benign - Neck Neck: Supple, no meningeal sign - Cardiac Cardiac: RRR - Respiratory Respiratory: No respiratory distress, Clear bilaterally - Abdomen Abdomen: Other (epigastrium ttp) - Back Back: No CVA TTP - Derm Derm: Normal color, Warm and dry - Extremities Extremities: No deformity - Neuro Neuro: Alert and oriented X 3, No motor deficit, No sensory deficit - Psych Psych: Normal mood, Normal affect Results - Vitals Vitals: Vital Signs - 24 hr 08/06/21 05:50 Temperature 36.0 C L Heart Rate 85 Respiratory 20 Rate Blood Pressure 129/83 H O2 Saturation 100 Oxygen O2 Source Room air - Labs Labs: Laboratory Tests 08/06/21 08/06/21 08/06/21 06:00 06:00 06:00 WBC 9.2 RBC 3.92 L Hgb 13.8 Hct 41.0 MCV 104.6 H MCH 35.2 H MCHC 33.7 RDW 13.1 Plt Count 234 MPV 10.7 Neut # (Auto) Not Reportable Lymph # (Auto) Not Reportable Lane # (Auto) Not Reportable Eos # (Auto) Not Reportable Baso # (Auto) Not Reportable Absolute Nucleated RBC Not Reportable Total Counted 100 Band Neuts % (Manual) 0 Abnorm Lymph % (Manual) 0 Nucleated RBC % Not Reportable Neutrophils # (Manual) 7.5 H Lymphocytes # (Manual) 1.2 L Monocytes # (Manual) 0.5 Eosinophils # (Manual) 0.0 Basophils # (Manual) 0.0 Differential Comment MANUAL DIFFERENTIAL WBC Morphology NORMAL APPEARANCE Platelet Estimate NORMAL (130-450,000) Platelet Morphology NORMAL APPEARANCE RBC Morph Micro Appear NORMAL APPEARANCE Sodium 133 L Potassium 2.4 L* Chloride 99 L Carbon Dioxide 20 L Anion Gap 14.0 H BUN 8 Creatinine 0.7 Estimated GFR (MDRD) 96 Glucose 264 H Calcium 8.3 L Total Bilirubin 1.3 H AST 113 H ALT 34 Alkaline Phosphatase 90 Total Protein 6.6 L Albumin 3.6 Globulin 3.0 Albumin/Globulin Ratio 1.2 Lipase 1490 H Urine Color YELLOW Urine Clarity CLEAR Urine pH 5.5 Ur Specific [place] 1.025 Urine Protein NEGATIVE Urine Glucose (UA) 500 H Urine Ketones 15 H Urine Occult Blood NEGATIVE Urine Nitrite NEGATIVE Urine Bilirubin NEGATIVE Urine Urobilinogen 0.2 (NORMAL) Ur Leukocyte Esterase TRACE H Urine RBC None Seen Urine WBC 0-3 Ur Squamous Epith Cells MOD Squamous H Urine Bacteria Rare Ur Microscopic Review INDICATED Urine Culture Comments NOT INDICATED Urine HCG, Qual 08/06/21 06:00 WBC RBC Hgb Hct MCV MCH MCHC RDW Plt Count MPV Neut # (Auto) Lymph # (Auto) Lane # (Auto) Eos # (Auto) Baso # (Auto) Absolute Nucleated RBC Total Counted Band Neuts % (Manual) Abnorm Lymph % (Manual) Nucleated RBC % Neutrophils # (Manual) Lymphocytes # (Manual) Monocytes # (Manual) Eosinophils # (Manual) Basophils # (Manual) Differential Comment WBC Morphology Platelet Estimate Platelet Morphology RBC Morph Micro Appear Sodium Potassium Chloride Carbon Dioxide Anion Gap BUN Creatinine Estimated GFR (MDRD) Glucose Calcium Total Bilirubin AST ALT Alkaline Phosphatase Total Protein Albumin Globulin Albumin/Globulin Ratio Lipase Urine Color Urine Clarity Urine pH Ur Specific [place] Urine Protein Urine Glucose (UA) Urine Ketones Urine Occult Blood Urine Nitrite Urine Bilirubin Urine Urobilinogen Ur Leukocyte Esterase Urine RBC Urine WBC Ur Squamous Epith Cells Urine Bacteria Ur Microscopic Review Urine Culture Comments Urine HCG, Qual NEGATIVE PD MEDICAL DECISION MAKING - ED course ED course: 35yF p/w pancreatitis flare. symptomatic treatment provided. d/w Dr. Castañeda for admission Departure - Departure Disposition: 66 [facility] DC/Xfer Clinical Impression: Hypokalemia, Abdominal pain, Nausea and vomiting, Diarrhea, Pancreatitis Condition: Stable
[2021-08-06 06:43] LABS: POTASSIUM 2.4 mmol/L (3.5-5.0)
[2021-08-06] MEDS ORDERED: IOVERSOL 320 100 ML VIAL IVP ONE ×2 (06:55→08:01)
[2021-08-06] MEDS ORDERED: HYDROmorphone 1 MG/ML CARPUJECT IVP STA ×2 (07:19→08:10)
[2021-08-06] MEDS ORDERED: LACTATED RINGERS 1,000 ML IV ONE (07:26)
--- NOTE | 2021-08-06 07:34 | HISTORY & PHYSICAL EXAMINATION ---
Chief Complaint - Chief Complaint Chief Complaint: Abdominal pain. History of Present Illness - Admitted From Admitted From:: Home - History Obtained From Records Reviewed: [facility] History obtained from: Patient, ER Physician, EMR - History of Present Illness HPI Comment/Other: This is a 35-year-old female with a history of depression and pancreatitis last year who presents complaining of abdominal pain that began early this morning. She states she woke up at 2 AM complaining of severe epigastric pain that was a 10 out of 10. It radiated her whole abdomen. She had multiple episodes of emesis associated with nausea. She had 2 episodes of loose stools overnight. She reports no fever but has had chills. She states her last alcoholic beverage was 3 days ago and that she no longer drinks consistently due to the episode of pancreatitis last year. She states she will have an occasional beverage once or twice a week now. She states she was diagnosed with Covid last month. She reports occasional dyspnea but this began after her abdominal pain. No cough or chest pain. 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 Living arrangement: At home Living Situation: With family Social History Notes: She previously drank alcohol on a consistent basis but now reports 1-2 beverages a week. She smokes a couple cigarettes a day and has been doing so for the past 16 years. - POLST Patient has POLST: No POLST Status: Full Code Meds/Allgy - Home Medications Home Medications: Ambulatory Orders Medication Instructions Recorded Confirmed Omeprazole 40 mg PO DAILY #30 cap 07/23/20 12/02/20 Multivitamin W/Minerals [Theragran 1 tab PO DAILYWM #30 tablet 12/05/20 M] Thiamine [Vitamin B-1] 100 mg PO DAILY #30 tablet 12/05/20 oxyCODONE [Roxicodone] 5 mg PO Q4-6H PRN #20 tablet 12/05/20 HYDROcod/ACETAM 5/325 [[place] 5/325] 1 - 2 tab PO Q6H PRN #15 tablet 01/25/21 - Allergies Allergies/Adverse Reactions: Allergies Allergy/AdvReac Type Severity Reaction Status Date / Time No Known Drug Allergies Allergy Verified 08/06/21 05:59 Review of Systems - Constitutional Constitutional: reports: Chills, Poor appetite. denies: Fever - Cardiovascular Cariovascular: denies: Chest pain, Lightheadedness, Exertional dyspnea, Decr. exercise tolerance - Respiratory Respiratory: reports: SOB at rest. denies: Cough, Sputum production - Gastrointestinal Gastrointestinal: reports: Abdominal pain, Diarrhea, Nausea, Vomiting, Poor appetite - Integumentary Integumentary: denies: Rash - Neurological Neurological: denies: General weakness, Focal weakness, Dizziness - Psychiatric Psychiatric: reports: Depression - Hematologic/Lymphatic Hematologic/Lymphatic: denies: Bleeding tendencies - All Other Systems All Other Systems: reports: Reviewed and negative Prior Level of Functionality: She is independent with her ADL's. Exam - Vital Signs Reviewed Vital Signs: Yes Vital Signs: Vital Signs x48h Temp Pulse Resp BP Pulse Ox 08/06/21 05:50 36.0 C L 85 20 129/83 H 100 - Physical Exam General Appearance: positive: Alert, Moderate distress Eyes Bilateral: positive: Normal inspection, Conjunctivae nml ENT: positive: ENT inspection nml Neck: positive: Nml inspection Respiratory: positive: No respiratory distress. negative: Wheezes, Rales Cardiovascular: positive: Regular rate & rhythm, No murmur. negative: Tachycardia Abdomen: positive: No distention, Tenderness (Epigastric and diffuse.). negative: Guarding, Rebound Skin: positive: Warm, Dry Extremities: positive: No pedal edema Neurologic/Psychiatric: negative: Disoriented to person, Disoriented to place Conclusion/Plan - Problem List (1) Pancreatitis Conclusion/Plan: It is unclear this is related to alcohol use although she is adamant that her last drink was a few days ago and she does not drink consistently anymore. She had a prior admission last year and there was no evidence of gallstones or elevated triglycerides. Her LFTs were only mildly elevated today. Given her significant hypokalemia, we will admit her to the ICU today. We will make her n.p.o. and start her on 200 mL of lactated Ringer's an hour. We will give another bolus of lactated Ringer's. Pain control with Dilaudid as needed. Zofran and Compazine for nausea. I ordered for the right upper quadrant ultrasound to ensure there is no evidence of gallstones. We will also check triglycerides again. Trend lipase. Check amylase in the morning. Qualifiers: Chronicity: acute Pancreatitis type: unspecified pancreatitis type (2) Hypokalemia Conclusion/Plan: This is secondary to GI losses. Her potassium is significantly decreased at 2.4. She received 10 equivalents of IV potassium in the ER. We will give another 40 mEq and check a magnesium as well to ensure there is no concomitant hypomagnesemia. (3) Alcohol abuse Conclusion/Plan: She reports rare alcohol use now but we will place her on thiamine IV and monitor her for evidence of alcohol withdrawal. (4) Hyperglycemia Conclusion/Plan: Her blood glucose is greater than 200 which is likely related to her pancreatitis. We will make her n.p.o. and place her on sliding scale. We will check an A1c. (5) COVID-19 Conclusion/Plan: She tested positive for COVID-19 on the admission PCR but she reports infection last month. She not appear to be symptomatic. CT the abdomen pelvis showed no lung pathology. We will discuss with infection control but I suspect she does not need to be on contact precautions. - Lab Results Lab results reviewed: Yes Fish Bones: 08/06/21 06:00 08/06/21 14:33 - Diagnostic Imaging Results Diagnostic Imaging Results: positive: Final report reviewed Core Measures - Anticipated LOS I expect patient to be DC'd or transferred within 96 hours.: Yes - Issues Hospital Issues and Management Plan: 35-year-old female with history of alcohol abuse presents with pancreatitis. She permitted for IV fluids, pain control and further work-up. - DVT/VTE - Prophylaxis VTE/DVT Device ordered at admit?: Yes VTE/DVT Prophylaxis med ordered at admit?: Yes
[2021-08-06 07:50] LABS: CHOL/HDL RATIO 1.8 (<4.4); CHOLESTEROL 207 mg/dL; HDL CHOLESTEROL 118 mg/dL; LDL CHOLESTEROL,CALCULATED 76 mg/dL; LDL/HDL RATIO 0.6 (<4.4); TRIGLYCERIDES 67 mg/dL; VLDL CHOLESTEROL 13 mg/dL
[2021-08-06 08:37] LABS: B. PARAPERTUSSIS- RESP PCR PAN NOT DETECTED; B. PERTUSSIS- RESP PCR PANEL NOT DETECTED; C. PNEUMONIAE- RESP PCR PANEL NOT DETECTED; CORONAVIRUS 229E-RESP PCR NOT DETECTED; CORONAVIRUS HKU1-RESP PCR NOT DETECTED; CORONAVIRUS NL63-RESP PCR NOT DETECTED; CORONAVIRUS OC43-RESP PCR NOT DETECTED; HUMAN METAPNEUMOVIRUS NOT DETECTED; INFLUENZA A- RESP PCR PANEL NOT DETECTED; INFLUENZA B - RESP PCR PANEL NOT DETECTED; M. PNEUMONIAE- RESP PCR PANEL NOT DETECTED; PARAINFLUENZA VIRUS 1 NOT DETECTED; PARAINFLUENZA VIRUS 2 NOT DETECTED; PARAINFLUENZA VIRUS 3 NOT DETECTED; PARAINFLUENZA VIRUS 4 NOT DETECTED; RHINOVIRUS/ENTEROVIRUS NOT DETECTED; RSV- RESP PCR PANEL NOT DETECTED
[2021-08-06 08:40] LABS: SARS-CoV-2 -RESP PCR PANEL DETECTED
--- NOTE | 2021-08-06 08:41 | CT Report ---
PROCEDURE: ABDOMEN/PELVIS W INDICATIONS: epigastric pain radiating to midabdomen and back Priors: 12-02-20 TECHNIQUE: After the administration of intravenous contrast, 5 mm thick sections acquired from the diaphragms to the symphysis. 5 mm thick coronal and sagittal reformats were acquired. For radiation dose reducti on, the following was used: automated exposure control, adjustment of mA and/or kV according to angelica ent size. COMPARISON: CT abdomen and pelvis with contrast, 12/02/2020. FINDINGS: Image quality: Excellent. ABDOMEN: Lung bases: Lung bases are clear. Heart size is normal. There is a small hiatal hernia. Solid organs: Liver is moderately enlarged. There is mild hepatic steatosis. Spleen is normal in siz e and enhancement. Gallbladder is normal Biliary system is non dilated. Stranding around the pancreatic head and body consistent with pancreatitis. There are a couple of hyp oenhancing areas in the pancreatic head measuring 1.1 cm and 1.5 cm. No pancreatic duct dilation panc reatic calcification. There is a small amount of peripancreatic fluid. No adrenal nodules. Kidneys demonstrate normal size and enhancement, without hydronephrosis. Peritoneum and bowel: Bowel loops demonstrate normal wall thickness and caliber. No free air. There is a small amount of fluid collection in the lesser sac and in the gravity dependent peritoneal cavi ty. Nodes and vessels: No retroperitoneal or mesenteric adenopathy by size criteria. Aorta and inferior vena cava are normal in size. Miscellaneous: No ventral hernias. PELVIS: Genitourinary: There is an IUD. Ovaries are grossly normal. A small amount of free fluid in the cul- de-sac. Bladder wall thickness is normal. Miscellaneous: No inguinal hernias or adenopathy. Bones: No suspicious bony lesions. No vertebral body compression fractures. IMPRESSION: 1. Acute pancreatitis. Two small hypoenhancing areas in the pancreatic head could represent early linares creatic necrosis or small pseudocysts. 2. Hepatomegaly and hepatic steatosis. 3. A small amount of peritoneal fluid in the lesser sac and dependent peritoneal cavity. Reviewed by: Quique Otoole MD on 08/06/2021 8:40 AM PST Approved by: Quique Otoole MD on 08/06/2021 8:40 AM PST Station ID: [id number]
[2021-08-06] MEDS: ONDANSETRON 4 MG/2 ML VIAL IVP PRN ×2 (09:15→19:29)
[2021-08-06] MEDS: THIAMINE INJ 100 MG in SODIUM CHLORIDE 0.9% 50 ML IV SCH (09:15)
[2021-08-06] MEDS: POTASSIUM CHLOR 10 MEQ/100 ML 10 MEQ/100 ML BAG IV SCH ×4 (09:16→12:10)
[2021-08-06] MEDS: ENOXAPARIN 40 MG/0.4 ML SYRINGE SUBQ SCH (09:16)
[2021-08-06] MEDS: SODIUM CHLORIDE FLUSH 0.9% 10 ML SYRINGE IVP SCH ×2 (09:17→17:41)
[2021-08-06] MEDS: LACTATED RINGERS 1,000 ML IV SCH ×3 (09:18→18:32)
[2021-08-06 09:55] LABS: ESTIMATED AVERAGE GLUCOSE 103 mg/dL (70-100); HEMOGLOBIN A1c% 5.2 % (4.27-6.07)
[2021-08-06] MEDS ORDERED: MAGNESIUM SULFATE 2 GRAM 2 GM/50 ML BAG IV ONE (10:17)
[2021-08-06] MEDS: HYDROmorphone 1 MG/ML CARPUJECT IVP PRN ×7 (10:22→22:35)
[2021-08-06] MEDS: INSULIN REGULAR HUMAN 300 UNIT/3 ML VIAL SUBQ SCH ×2 (12:12→18:01)
[2021-08-06 14:49] LABS: CALCIUM 7.6 mg/dL (8.5-10.3); CREATININE 0.5 mg/dL (0.4-1.0); POTASSIUM 3.8 mmol/L (3.5-5.0)
--- NOTE | 2021-08-06 15:14 | Ultrasound Report ---
PROCEDURE: Abdomen Limited INDICATIONS: Pancreaitits. Elevated LFT's. TECHNIQUE: Real-time scanning was performed of the abdominal and retroperitoneal organs, with image documentatio n. COMPARISON: None. FINDINGS: Liver: Liver is enlarged measuring 21 cm and increased in echotexture. Gallbladder: No stones. Gallbladder wall thickness is within normal measuring 1.7mm. Biliary ducts: Intrahepatic bile ducts are non-dilated. Extrahepatic bile duct caliber measures 1.7 mm. Normal is 6-7 mm or less in diameter, or 10 mm or less post-cholecystectomy. Pancreas: Visualized portions of the pancreas are sonographically normal. However, it is incomplete ly visualized. Kidneys: Right kidney measures 11.2 cm long. No nephrolithiasis. Minimal prominence of the renal pe lvis. No solid masses. Miscellaneous: No free abdominal fluid. IMPRESSION: Minimal prominence of the right renal pelvis. Hepatomegaly with steatosis. Pancreas is normal, although incompletely visualized. Reviewed by: Rocio Perry MD on 08/06/2021 3:13 PM PST Approved by: Rocio Perry MD on 08/06/2021 3:13 PM PST Station ID: [id number]
[2021-08-06] MEDS: KETOROLAC 30 MG/ML VIAL IVP PRN (19:23)
[2021-08-06] MEDS: SODIUM CHLORIDE FLUSH 0.9% 10 ML SYRINGE IVP PRN (19:29)
[2021-08-06] MEDS: NICOTINE 7 MG PATCH TOP SCH (22:35)
[2021-08-07] MEDS: INSULIN REGULAR HUMAN 300 UNIT/3 ML VIAL SUBQ SCH ×3 (00:06→11:25)
[2021-08-07] MEDS: LACTATED RINGERS 1,000 ML IV SCH ×5 (00:08→19:45)
[2021-08-07] MEDS: SODIUM CHLORIDE FLUSH 0.9% 10 ML SYRINGE IVP SCH ×4 (01:49→23:23)
[2021-08-07] MEDS: HYDROmorphone 1 MG/ML CARPUJECT IVP PRN ×7 (03:00→23:40)
[2021-08-07] MEDS: KETOROLAC 30 MG/ML VIAL IVP PRN ×4 (03:00→19:45)
[2021-08-07 05:03] LABS: BASOPHILS % (AUTO) 0.1 %; EOSINOPHILS % (AUTO) 0.1 %; HCT - HEMATOCRIT 37.8 % (37.0-47.0); HGB - HEMOGLOBIN 12.7 g/dL (12.0-16.0); LYMPHOCYTES % (AUTO) 6.8 %; MEAN CORPUSCULAR HGB CONC 33.6 g/dL (32.0-36.0); MEAN CORPUSCULAR VOLUME 104.1 fL (81.0-99.0); MEAN PLATELET VOLUME 11.1 fL (7.9-10.8); MONOCYTES % (AUTO) 6.7 %; NEUTROPHILS % (AUTO) 85.9 %; PLT - PLATELET COUNT 149 10^3/uL (130-450); RED BLOOD COUNT 3.63 10^6/uL (4.20-5.40); RED CELL DISTRIBUTION WIDTH 13.2 % (12.0-15.0); WHITE BLOOD COUNT 9.1 x10^3/uL (4.8-10.8)
[2021-08-07 05:11] LABS: ABNORMAL LYMPHS % (MANUAL) 0 %
[2021-08-07 05:25] LABS: ALBUMIN 2.8 g/dL (3.2-5.5); BAND NEUTROPHILS % (MANUAL) 1 %; BILIRUBIN,DIRECT 0.3 mg/dL (0.1-0.5); BILIRUBIN,TOTAL 1.2 mg/dL (0.2-1.0); CALCIUM 7.4 mg/dL (8.5-10.3); CREATININE 0.5 mg/dL (0.4-1.0); DIFFERENTIAL COMMENT MANUAL DIFFERENTIAL; LYMPHOCYTES # (MANUAL) 0.6 10^3/uL (1.5-3.5); LYMPHOCYTES % (MANUAL) 7 %; MAGNESIUM 1.8 mg/dL (1.7-2.8); MONOCYTES # (MANUAL) 0.5 10^3/uL (0.0-1.0); NEUTROPHILS # (MANUAL) 7.9 10^3/uL (1.5-6.6); PLATELET ESTIMATE, MANUAL NORMAL (130-450,000) (NORMAL); PLATELET MORPHOLOGY NORMAL APPEARANCE (NORMAL); POTASSIUM 3.4 mmol/L (3.5-5.0); RBC MORPHOLOGY (MULTIPLE) NORMAL APPEARANCE (NORMAL); WBC MORPHOLOGY (MULTIPLE) NORMAL APPEARANCE (NORMAL)
[2021-08-07 05:48] LABS: FOLATE 8.31 ng/mL (5.90 - >24.8)
[2021-08-07] MEDS ORDERED: POTASSIUM CHLORIDE 20 MEQ TABLET PO ONE (07:47)
[2021-08-07] MEDS: ONDANSETRON 4 MG/2 ML VIAL IVP PRN (07:54)
[2021-08-07] MEDS: ENOXAPARIN 40 MG/0.4 ML SYRINGE SUBQ SCH (08:23)
[2021-08-07] MEDS: NEUTRA-PHOS 250 MG TABLET PO SCH ×3 (08:23→17:08)
[2021-08-07] MEDS: PRENATAL VITAMIN TABLET PO SCH (08:23)
[2021-08-07] MEDS: NICOTINE 7 MG PATCH TOP SCH (08:29)
[2021-08-07] MEDS: THIAMINE INJ 100 MG in SODIUM CHLORIDE 0.9% 50 ML IV SCH (09:21)
--- NOTE | 2021-08-07 10:16 | PHARMACY PROGRESS NOTE ---
- Best Possible Medication History Admit Date and Time: 08/06/21722 Processed by: Pharmacy Medication History completed: Yes Secondary Source(s): Written medication list As the person ultimately responsible for medication therapy, providers are able to order a medication from an existing home medication list in [facility] via the "Reconcile Routine" prior to Confirmation of that medication by medical support specialist. Such practice is discouraged except when the physician, in their clinical judgment, deems that a medical need exists for a medication without regard to previous use.
--- NOTE | 2021-08-07 11:28 | PROVIDER PROGRESS NOTE ---
Assessment/Plan - Problem List (1) Pancreatitis Qualifiers: Chronicity: acute Pancreatitis type: unspecified pancreatitis type Assessment/Plan: pt recognize it is her alcohol caused her acute pancreatitis as her hx. Also pt had elevated AST comparing ALT. CT of abdomen reveal acute pancreatitis. his lipase is reduced after treated overnight. but pt still report she had significant abdominal pain. right upper quadrant ultrasound reveals there is no evidence of gallstones. triglycerides is normal arrange. we will continue bowel rest, IVF, continue lab monitor, pain control, Antiemesis as needed. Up-to-date of pt's medical conditions to patient's mother, answered her questions and concerns. (2) Hypokalemia resolved (3) Alcohol abuse Conclusion/Plan: pt do not present alcohol withdrawal symptoms now. It is likely the cause to have her acute pancreatitis. we will continue vitamin B1, add . pt clearly state she will quit alcohol (4) Hyperglycemia resolved. A1C is 5.2 (5) COVID-19 Conclusion/Plan: stable, pt is asymptomatic. She tested positive for COVID-19 on the admission PCR but she reports infection last month. CT the abdomen pelvis showed no lung pathology. - Current Meds Current Meds: Current Medications Generic Name Dose Route Start Last Admin Trade Name Freq PRN Reason Stop Dose Admin Enoxaparin Sodium 40 mg 08/06/21 09:00 08/07/21 08:23 Enoxaparin 40 Mg/0.4 Ml Syringe SUBQ 40 mg DAILY LUCY Administration Hydromorphone HCl 1 mg 08/06/21 07:52 08/07/21 11:25 Hydromorphone 1 Mg/Ml Carpuject IVP 1 mg Q2H PRN Administration Pain 8 to 10 Lactated Ringer's 1,000 mls @ 200 mls/hr 08/06/21 08:00 08/07/21 09:26 Lr IV 200 mls/hr .Q5H LUCY Administration Insulin Human Regular 1 - 9 unit 08/06/21 12:00 08/07/21 11:25 Insulin Regular Human 300 Unit/3 Ml Vial SUBQ Not Given Q6HR LUCY Protocol Ketorolac Tromethamine 30 mg 08/06/21 19:02 08/07/21 09:20 Ketorolac 30 Mg/Ml Vial IVP 08/11/21 19:01 30 mg Q6HR PRN Administration PAIN Nicotine 1 patch 08/06/21 22:12 08/07/21 08:29 Nicotine 7 Mg Patch TOP 1 patch DAILY LUCY Administration Ondansetron HCl 4 mg 08/06/21 07:23 08/07/21 07:54 Ondansetron 4 Mg/2 Ml Vial IVP 4 mg Q6HR PRN Administration Nausea / Vomiting Multivit/Folic Acid/Iron 1 tab 08/07/21 08:00 08/07/21 08:23 Vitamin Tablet PO 1 tab DAILYWM LUCY Administration Sodium Chloride 10 ml 08/06/21 09:00 08/07/21 07:54 Sodium Chloride Flush 0.9% 10 Ml Syringe IVP 10 ml 0100,0900,1700 LUCY Administration Sodium Chloride 10 ml 08/06/21 07:23 08/06/21 19:29 Sodium Chloride Flush 0.9% 10 Ml Syringe IVP 10 ml PRN PRN Administration NEEDED PER PROVIDER ORDERS Sodium Phosphate 250 mg 08/07/21 08:00 08/07/21 11:24 Neutra-Phos 250 Mg Tablet PO 250 mg TIDWM LUCY Administration - Lab Result Fish Bone Diagrams: 08/07/21 04:48 08/07/21 04:48 - Additional Planning My Orders: My Active Orders 08/07/21 08:00 Neutra-Phos [K-Phos Neutral] 250 mg PO TIDWM Vitamin [Trinatal Rx 1] 1 tab PO DAILYWM 08/08/21 09:00 Thiamine [Vitamin B-1] 100 mg PO DAILY Subjective - Subjective Patient Reports: Resting Comfortably Objective Vital Signs: Vital Signs - 24 hr 08/06/21 08/06/21 08/06/21 11:29 11:30 11:31 Temperature Heart Rate 87 79 86 Heart Rate [ Brachial] Heart Rate [ Monitoring electrodes] Respiratory 20 13 17 Rate Blood Pressure 124/95 H Blood Pressure [Left Brachial artery] O2 Saturation 08/06/21 08/06/21 08/06/21 11:35 11:40 11:45 Temperature Heart Rate 78 79 77 Heart Rate [ Brachial] Heart Rate [ Monitoring electrodes] Respiratory 12 20 17 Rate Blood Pressure Blood Pressure [Left Brachial artery] O2 Saturation 08/06/21 08/06/21 08/06/21 11:50 11:55 11:59 Temperature Heart Rate 85 78 80 Heart Rate [ Brachial] Heart Rate [ Monitoring electrodes] Respiratory 17 21 19 Rate Blood Pressure Blood Pressure [Left Brachial artery] O2 Saturation 08/06/21 08/06/21 08/06/21 12:00 12:01 12:07 Temperature 36.4 C L Heart Rate 79 79 84 Heart Rate [ Brachial] Heart Rate [ 80 Monitoring electrodes] Respiratory 18 18 18 Rate Blood Pressure 136/98 H Blood Pressure 124/94 H [Left Brachial artery] O2 Saturation 100 08/06/21 08/06/21 08/06/21 12:10 12:15 12:20 Temperature Heart Rate 81 88 82 Heart Rate [ Brachial] Heart Rate [ Monitoring electrodes] Respiratory 18 13 14 Rate Blood Pressure Blood Pressure [Left Brachial artery] O2 Saturation 08/06/21 08/06/21 08/06/21 12:25 12:29 12:30 Temperature Heart Rate 77 80 81 Heart Rate [ Brachial] Heart Rate [ Monitoring electrodes] Respiratory 16 14 17 Rate Blood Pressure 142/106 H Blood Pressure [Left Brachial artery] O2 Saturation 08/06/21 08/06/21 08/06/21 12:31 12:35 12:40 Temperature Heart Rate 82 82 80 Heart Rate [ Brachial] Heart Rate [ Monitoring electrodes] Respiratory 18 16 18 Rate Blood Pressure Blood Pressure [Left Brachial artery] O2 Saturation 08/06/21 08/06/21 08/06/21 12:45 12:50 12:55 Temperature Heart Rate 81 82 82 Heart Rate [ Brachial] Heart Rate [ Monitoring electrodes] Respiratory 18 18 16 Rate Blood Pressure Blood Pressure [Left Brachial artery] O2 Saturation 08/06/21 08/06/21 08/06/21 12:59 13:00 13:01 Temperature Heart Rate 82 79 84 Heart Rate [ Brachial] Heart Rate [ Monitoring electrodes] Respiratory 16 15 17 Rate Blood Pressure 144/99 H Blood Pressure [Left Brachial artery] O2 Saturation 08/06/21 08/06/21 08/06/21 13:05 13:10 13:15 Temperature Heart Rate 82 82 80 Heart Rate [ Brachial] Heart Rate [ Monitoring electrodes] Respiratory 15 18 16 Rate Blood Pressure Blood Pressure [Left Brachial artery] O2 Saturation 08/06/21 08/06/21 08/06/21 15:00 16:04 16:19 Temperature 36.2 C L Heart Rate Heart Rate [ Brachial] Heart Rate [ 89 84 Monitoring electrodes] Respiratory 22 19 Rate Blood Pressure Blood Pressure 145/103 H 133/96 H [Left Brachial artery] O2 Saturation 100 99 08/06/21 08/07/21 23:47 08:22 Temperature 36.5 C 36.6 C Heart Rate Heart Rate [ 99 103 H Brachial] Heart Rate [ Monitoring electrodes] Respiratory 18 16 Rate Blood Pressure Blood Pressure 122/86 H 120/84 H [Left Brachial artery] O2 Saturation 97 100 Oxygen O2 Source Room air I&O (Last 24 Hrs): Intake and Output Totals x24h 08/05/21 08/06/21 08/07/21 23:59 23:59 23:59 Intake Total 5272.667 1871 Output Total 1550 175 Balance 3722.667 1696 General: Alert, Oriented x3, Cooperative, Mild distress HEENT: Atraumatic Neck: Supple Lymphatic: no adenopathy Neuro: Alert, Non Focal, Oriented Times 3 Cardiovascular: Regular rate, Normal S1, Normal S2 Respiratory: Chest non-tender, No respiratory distress Abdomen: Normal bowel sounds, Soft Extremities: Normal pulses - Results Results: Laboratory Results WBC 9.1 x10^3/uL (4.8-10.8) 08/07/21 04:48 RBC 3.63 10^6/uL (4.20-5.40) L 08/07/21 04:48 Hgb 12.7 g/dL (12.0-16.0) 08/07/21 04:48 Hct 37.8 % (37.0-47.0) 08/07/21 04:48 MCV 104.1 fL (81.0-99.0) H 08/07/21 04:48 MCH 35.0 pg (27.0-31.0) H 08/07/21 04:48 MCHC 33.6 g/dL (32.0-36.0) 08/07/21 04:48 RDW 13.2 % (12.0-15.0) 08/07/21 04:48 Plt Count 149 10^3/uL (130-450) 08/07/21 04:48 MPV 11.1 fL (7.9-10.8) H 08/07/21 04:48 Neut # (Auto) Not Reportable 08/07/21 04:48 Lymph # (Auto) Not Reportable 08/07/21 04:48 [place] # (Auto) Not Reportable 08/07/21 04:48 Eos # (Auto) Not Reportable 08/07/21 04:48 Baso # (Auto) Not Reportable 08/07/21 04:48 Absolute Nucleated RBC Not Reportable 08/07/21 04:48 Total Counted 100 08/07/21 04:48 Band Neuts % (Manual) 1 % (0-10) 08/07/21 04:48 Abnorm Lymph % (Manual) 0 % 08/07/21 04:48 Nucleated RBC % Not Reportable 08/07/21 04:48 Neutrophils # (Manual) 7.9 10^3/uL (1.5-6.6) H 08/07/21 04:48 Lymphocytes # (Manual) 0.6 10^3/uL (1.5-3.5) L 08/07/21 04:48 Monocytes # (Manual) 0.5 10^3/uL (0.0-1.0) 08/07/21 04:48 Eosinophils # (Manual) 0.0 10^3/uL (0-0.7) 08/07/21 04:48 Basophils # (Manual) 0.0 10^3/uL (0-0.1) 08/07/21 04:48 Differential Comment MANUAL DIFFERENTIAL 08/07/21 04:48 WBC Morphology NORMAL APPEARANCE (NORMAL) 08/07/21 04:48 Platelet Estimate NORMAL (130-450,000) (NORMAL) 08/07/21 04:48 Platelet Morphology NORMAL APPEARANCE (NORMAL) 08/07/21 04:48 RBC Morph Micro Appear NORMAL APPEARANCE (NORMAL) 08/07/21 04:48 Sodium 132 mmol/L (135-145) L 08/07/21 04:48 Potassium 3.4 mmol/L (3.5-5.0) L 08/07/21 04:48 Chloride 99 mmol/L (101-111) L 08/07/21 04:48 Carbon Dioxide 23 mmol/L (21-32) 08/07/21 04:48 Anion Gap 10.0 (6-13) 08/07/21 04:48 BUN 5 mg/dL (6-20) L 08/07/21 04:48 Creatinine 0.5 mg/dL (0.4-1.0) 08/07/21 04:48 Estimated GFR (MDRD) 141 (>89) 08/07/21 04:48 Glucose 101 mg/dL (70-100) H 08/07/21 04:48 POC Whole Bld Glucose 105 mg/dL (70 - 100) H 08/07/21 11:22 Estimat Average Glucose 103 mg/dL (70-100) H 08/06/21 06:00 Hemoglobin A1c % 5.2 % (4.27-6.07) 08/06/21 06:00 Calcium 7.4 mg/dL (8.5-10.3) L 08/07/21 04:48 Phosphorus 2.0 mg/dL (2.5-4.6) L 08/07/21 04:48 Magnesium 1.8 mg/dL (1.7-2.8) 08/07/21 04:48 Total Bilirubin 1.2 mg/dL (0.2-1.0) H 08/07/21 04:48 Direct Bilirubin 0.3 mg/dL (0.1-0.5) 08/07/21 04:48 AST 33 IU/L (10-42) 08/07/21 04:48 ALT 21 IU/L (10-60) 08/07/21 04:48 Alkaline Phosphatase 60 IU/L (42-121) 08/07/21 04:48 Total Protein 5.0 g/dL (6.7-8.2) L 08/07/21 04:48 Albumin 2.8 g/dL (3.2-5.5) L 08/07/21 04:48 Globulin 2.2 g/dL (2.1-4.2) 08/07/21 04:48 Albumin/Globulin Ratio 1.2 (1.0-2.2) 08/06/21 06:00 Triglycerides 67 mg/dL (-149) 08/06/21 06:00 Cholesterol 207 mg/dL (-199) H 08/06/21 06:00 LDL Cholesterol, Calc 76 mg/dL (-129) 08/06/21 06:00 VLDL Cholesterol 13 mg/dL 08/06/21 06:00 HDL Cholesterol 118 mg/dL (60-) 08/06/21 06:00 LDL/HDL Ratio 0.6 (<4.4) 08/06/21 06:00 Cholesterol/HDL Ratio 1.8 (<4.4) 08/06/21 06:00 Amylase 455 U/L (28-100) H* 08/07/21 04:48 Lipase 770 U/L (22-51) H 08/07/21 04:48 Vitamin B12 391 pg/mL (180-914) 08/07/21 04:48 Folate 8.31 ng/mL (5.90 - >24.8) 08/07/21 04:48 Urine Color YELLOW 08/06/21 06:00 Urine Clarity CLEAR (CLEAR) 08/06/21 06:00 Urine pH 5.5 PH (5.0-7.5) 08/06/21 06:00 Ur Specific [place] 1.025 (1.002-1.030) 08/06/21 06:00 Urine Protein NEGATIVE mg/dL (NEGATIVE) 08/06/21 06:00 Urine Glucose (UA) 500 mg/dL (NEGATIVE) H 08/06/21 06:00 Urine Ketones 15 mg/dL (NEGATIVE) H 08/06/21 06:00 Urine Occult Blood NEGATIVE (NEGATIVE) 08/06/21 06:00 Urine Nitrite NEGATIVE (NEGATIVE) 08/06/21 06:00 Urine Bilirubin NEGATIVE (NEGATIVE) 08/06/21 06:00 Urine Urobilinogen 0.2 (NORMAL) E.U./dL (NORMAL) 08/06/21 06:00 Ur Leukocyte Esterase TRACE (NEGATIVE) H 08/06/21 06:00 Urine RBC None Seen /HPF (0-5) 08/06/21 06:00 Urine WBC 0-3 /HPF (0-5) 08/06/21 06:00 Ur Squamous Epith Cells MOD Squamous (<= Few) H 08/06/21 06:00 Urine Bacteria Rare /HPF (None Seen) 08/06/21 06:00 Ur Microscopic Review INDICATED 08/06/21 06:00 Urine Culture Comments NOT INDICATED 08/06/21 06:00 Urine HCG, Qual NEGATIVE 08/06/21 06:00 Nasal Adenovirus (PCR) NOT DETECTED 08/06/21 07:30 Nasal B. parapertussis DNA (PCR) NOT DETECTED 08/06/21 07:30 Nasal Coronavir 229E PCR NOT DETECTED 08/06/21 07:30 Nasal Coronavir HKU1 PCR NOT DETECTED 08/06/21 07:30 Nasal Coronavir NL63 PCR NOT DETECTED 08/06/21 07:30 Nasal Coronavir OC43 PCR NOT DETECTED 08/06/21 07:30 Nasal Enterovir/Rhinovir PCR NOT DETECTED 08/06/21 07:30 Nasal Influenza B PCR NOT DETECTED 08/06/21 07:30 Nasal Influenza A PCR NOT DETECTED 08/06/21 07:30 Nasal Parainfluen 1 PCR NOT DETECTED 08/06/21 07:30 Nasal Parainfluen 2 PCR NOT DETECTED 08/06/21 07:30 Nasal Parainfluen 3 PCR NOT DETECTED 08/06/21 07:30 Nasal Parainfluen 4 PCR NOT DETECTED 08/06/21 07:30 Nasal RSV (PCR) NOT DETECTED 08/06/21 07:30 Nasal Screen MRSA (PCR) NEGATIVE (NEGATIVE) 08/06/21 09:00 Nasal B.pertussis DNA PCR NOT DETECTED 08/06/21 07:30 Nasal C.pneumoniae (PCR) NOT DETECTED 08/06/21 07:30 [place] Human Metapneumo PCR NOT DETECTED 08/06/21 07:30 Nasal M.pneumoniae (PCR) NOT DETECTED 08/06/21 07:30 Nasal SARS-CoV-2 (PCR) DETECTED A 08/06/21 07:30 - Procedures Procedures: Procedures MANUAL ASSIST DELIV NEC (11/14/14) ABX Reporting Has patient been on IV antibiotics over the past 48 hours?: No Current Medications - Current Medications Current Medications: Active Medications Acetaminophen (Acetaminophen 325 Mg Tablet) 650 mg PO Q4HR PRN PRN Reason: Pain 1 to 4 Enoxaparin Sodium (Enoxaparin 40 Mg/0.4 Ml Syringe) 40 mg SUBQ DAILY [facility] Last Admin: 08/07/21 08:23 Dose: 40 mg Hydromorphone HCl (Hydromorphone 1 Mg/Ml Carpuject) 1 mg IVP Q2H PRN PRN Reason: Pain 8 to 10 Last Admin: 08/07/21 11:25 Dose: 1 mg Lactated Ringer's (Lr) 1,000 mls @ 200 mls/hr IV .Q5H LUCY Last Admin: 08/07/21 09:26 Dose: 200 mls/hr Insulin Human Regular (Insulin Regular Human 300 Unit/3 Ml Vial) 1 - 9 unit SUBQ Q6HR LUCY; Protocol Last Admin: 08/07/21 11:25 Dose: Not Given Ketorolac Tromethamine (Ketorolac 30 Mg/Ml Vial) 30 mg IVP Q6HR PRN PRN Reason: PAIN Stop: 08/11/21 19:01 Last Admin: 08/07/21 09:20 Dose: 30 mg Nicotine (Nicotine 7 Mg Patch) 1 patch TOP DAILY [facility] Last Admin: 08/07/21 08:29 Dose: 1 patch Ondansetron HCl (Ondansetron 4 Mg/2 Ml Vial) 4 mg IVP Q6HR PRN PRN Reason: Nausea / Vomiting Last Admin: 08/07/21 07:54 Dose: 4 mg Multivit/Folic Acid/Iron ( Vitamin Tablet) 1 tab PO DAILYWM [facility] Last Admin: 08/07/21 08:23 Dose: 1 tab Prochlorperazine Edisylate (Prochlorperazine 10 Mg/2 Ml Vial) 10 mg IVP Q6HR PRN PRN Reason: Nausea / Vomiting Sodium Chloride (Sodium Chloride Flush 0.9% 10 Ml Syringe) 10 ml IVP 0100,0900,1700 [facility] Last Admin: 08/07/21 07:54 Dose: 10 ml Sodium Chloride (Sodium Chloride Flush 0.9% 10 Ml Syringe) 10 ml IVP PRN PRN PRN Reason: NEEDED PER PROVIDER ORDERS Last Admin: 08/06/21 19:29 Dose: 10 ml Sodium Phosphate (Neutra-Phos 250 Mg Tablet) 250 mg PO TIDWM [facility] Last Admin: 08/07/21 11:24 Dose: 250 mg Thiamine HCl (Thiamine 100 Mg Tablet) 100 mg PO DAILY [facility] Acetaminophen [Tylenol] 650 mg PO Q6H PRN 08/07/21
[2021-08-07] MEDS: PROCHLORPERAZINE 10 MG/2 ML VIAL IVP PRN (16:28)
[2021-08-07] MEDS: INSULIN ASPART 300 UNIT/3 ML PEN SUBQ SCH (20:49)
[2021-08-08] MEDS: LACTATED RINGERS 1,000 ML IV SCH ×4 (00:54→15:54)
[2021-08-08] MEDS: KETOROLAC 30 MG/ML VIAL IVP PRN ×3 (02:01→18:23)
[2021-08-08] MEDS: HYDROmorphone 1 MG/ML CARPUJECT IVP PRN ×8 (04:22→22:32)
[2021-08-08] MEDS: PROCHLORPERAZINE 10 MG/2 ML VIAL IVP PRN ×2 (04:54→21:50)
[2021-08-08 05:15] LABS: BASOPHILS % (AUTO) 0.2 %; EOSINOPHILS # (AUTO) 0.1 10^3/uL (0.0-0.7); EOSINOPHILS % (AUTO) 0.5 %; HCT - HEMATOCRIT 36.3 % (37.0-47.0); HGB - HEMOGLOBIN 12.1 g/dL (12.0-16.0); LYMPHOCYTES # (AUTO) 0.9 10^3/uL (1.5-3.5); LYMPHOCYTES % (AUTO) 8.3 %; MEAN CORPUSCULAR HEMOGLOBIN 34.9 pg (27.0-31.0); MEAN CORPUSCULAR HGB CONC 33.3 g/dL (32.0-36.0); MEAN CORPUSCULAR VOLUME 104.6 fL (81.0-99.0); MONOCYTES # (AUTO) 0.8 10^3/uL (0.0-1.0); MONOCYTES % (AUTO) 7.6 %; NEUTROPHILS % (AUTO) 82.9 %; RED BLOOD COUNT 3.47 10^6/uL (4.20-5.40); RED CELL DISTRIBUTION WIDTH 13.9 % (12.0-15.0); WHITE BLOOD COUNT 10.8 x10^3/uL (4.8-10.8)
[2021-08-08 05:28] LABS: ALBUMIN 2.3 g/dL (3.2-5.5); BILIRUBIN,DIRECT 0.2 mg/dL (0.1-0.5); BILIRUBIN,TOTAL 0.9 mg/dL (0.2-1.0); CALCIUM 7.4 mg/dL (8.5-10.3); CREATININE 0.5 mg/dL (0.4-1.0); MAGNESIUM 1.5 mg/dL (1.7-2.8); MEAN PLATELET VOLUME 11.6 fL (7.9-10.8); PHOSPHORUS 1.8 mg/dL (2.5-4.6); PLT - PLATELET COUNT 147 10^3/uL (130-450); POTASSIUM 3.1 mmol/L (3.5-5.0); TOTAL PROTEIN 4.7 g/dL (6.7-8.2)
[2021-08-08] MEDS ORDERED: POTASSIUM CHLORIDE 20 MEQ TABLET PO ONE (07:27)
[2021-08-08] MEDS ORDERED: MAGNESIUM SULFATE 2 GRAM 2 GM/50 ML BAG IV ONE (07:27)
[2021-08-08] MEDS ORDERED: LACTATED RINGERS 1,000 ML IV SCH ×3 (07:28→18:13)
[2021-08-08] MEDS: INSULIN ASPART 300 UNIT/3 ML PEN SUBQ SCH ×4 (07:33→20:57)
[2021-08-08] MEDS: NICOTINE 7 MG PATCH TOP SCH (07:42)
[2021-08-08] MEDS: ENOXAPARIN 40 MG/0.4 ML SYRINGE SUBQ SCH (07:43)
[2021-08-08] MEDS: NEUTRA-PHOS 250 MG TABLET PO SCH ×3 (08:04→17:33)
[2021-08-08] MEDS: THIAMINE 100 MG TABLET PO SCH (08:04)
[2021-08-08] MEDS: PRENATAL VITAMIN TABLET PO SCH (08:04)
[2021-08-08] MEDS: SODIUM CHLORIDE FLUSH 0.9% 10 ML SYRINGE IVP SCH ×2 (08:05→17:38)
[2021-08-08] MEDS ORDERED: IOPAMIDOL-300 50 ML VIAL ONE (10:35)
[2021-08-08] MEDS ORDERED: IOVERSOL 320 100 ML VIAL IVP ONE ×2 (10:35→11:01)
--- NOTE | 2021-08-08 11:06 | CT Report ---
PROCEDURE: Abdomen/Pelvis W INDICATIONS: worsening abdominal pain, pancreatic necrosis? CONTRAST: IV CONTRAST: Optiray 320 ml: 100 PO CONTRAST: *NO PO CONTRAST TECHNIQUE: After the administration of intravenous contrast, 5 mm thick sections acquired from the diaphragms to the symphysis. 5 mm thick coronal and sagittal reformats were acquired. For radiation dose reducti on, the following was used: automated exposure control, adjustment of mA and/or kV according to angelica ent size. COMPARISON: August 06, 2021. FINDINGS: Inferior chest: Small to moderate bilateral pleural effusions with adjacent atelectasis. No cardiome landon or pericardial effusion. Gallbladder: The gallbladder is distended with a smooth thin wall. Biliary tree: No intra-or extrahepatic biliary ductal dilatation. Liver: Normal enhancement and contour. Enlarged, measuring 23 cm in length. Spleen: Normal enhancement, size and morphology is seen. Pancreas: No contour deforming mass. Edematous appearance of the pancreas with surrounding infiltrati ve change and fluid, compatible with acute pancreatitis. Persistent 2 subcentimeter, hypoattenuating areas are seen in the uncinate process, which may reflect developing pseudocysts or necrosis. Adrenals: Normal size without masses. Kidneys/ureters: Normal size and morphology. No solid masses or hydronephrosis. Vasculature: No evidence of aneurysm or other significant vascular pathology. Lymphatic system: No pathologic enlargement by size criteria. GI/mesentery: No evidence of intestinal obstruction. Mild wall thickening of the duodenum, compatible with reactive duodenitis. Normal appearance of the appendix. Peritoneum/Retroperitoneum: Small to moderate volume ascites. No free intraperitoneal gas. Urinary bladder: Not well distended but grossly unremarkable. Pelvic organs: An intrauterine device is seen in situ. Bones/soft tissues: Small fat-containing periumbilical hernia. Anasarca. No significant osseous abnormality. IMPRESSION: 1.Interval development of small to moderate bilateral pleural effusions with adjacent atelectasis. 2.Hepatomegaly. 3.Increased intra-abdominal ascites. 4.Persistent hypoenhancing areas in the uncinate process, which may reflect developing pseudocysts or necrosis. 5.Mild reactive duodenitis. 6.Anasarca. Reviewed by: Lanre Retana MD on 08/08/2021 11:05 AM PST Approved by: Lanre Retana MD on 08/08/2021 11:05 AM PST Station ID: [id number]
--- NOTE | 2021-08-08 11:41 | PROVIDER PROGRESS NOTE ---
Subjective - Prog Note Date Prog Note Date: 08/08/21 - Subjective Pt reports feeling: No change Subjective: pt report she feel her abdominal pain sometime is controlled but sometime her abdominal pain still keep severe. she report her pain is diffused at upper bilateral quadrant and radiate to left back as well. She denies chest pain and fever. pt also report she has dark urine. Current Medications - Current Medications Current Medications: Active Medications Acetaminophen (Acetaminophen 325 Mg Tablet) 650 mg PO Q4HR PRN PRN Reason: Pain 1 to 4 Enoxaparin Sodium (Enoxaparin 40 Mg/0.4 Ml Syringe) 40 mg SUBQ DAILY [facility] Last Admin: 08/08/21 07:43 Dose: 40 mg Hydromorphone HCl (Hydromorphone 1 Mg/Ml Carpuject) 1 mg IVP Q2H PRN PRN Reason: Pain 8 to 10 Last Admin: 08/08/21 10:39 Dose: 1 mg Lactated Ringer's (Lr) 1,000 mls @ 100 mls/hr IV .Q10H [facility] Last Infusion: 08/08/21 11:42 Dose: 100 mls/hr Cefepime HCl 1 gm/ Sodium (Chloride) 100 mls @ 200 mls/hr IV TID LUCY Metronidazole (Flagyl 500 Mg/100 Ml) 500 mg in 100 mls @ 100 mls/hr IV Q8H [facility] Insulin Aspart (Insulin Aspart 300 Unit/3 Ml Pen) 1 - 9 unit SUBQ 0800,1200,1700,2100 [facility]; Protocol Last Admin: 08/08/21 11:41 Dose: Not Given Ketorolac Tromethamine (Ketorolac 30 Mg/Ml Vial) 30 mg IVP Q6HR PRN PRN Reason: PAIN Stop: 08/11/21 19:01 Last Admin: 08/08/21 02:01 Dose: 30 mg Nicotine (Nicotine 7 Mg Patch) 1 patch TOP DAILY [facility] Last Admin: 08/08/21 07:42 Dose: 1 patch Ondansetron HCl (Ondansetron 4 Mg/2 Ml Vial) 4 mg IVP Q6HR PRN PRN Reason: Nausea / Vomiting Last Admin: 08/07/21 07:54 Dose: 4 mg Multivit/Folic Acid/Iron ( Vitamin Tablet) 1 tab PO DAILYWM [facility] Last Admin: 08/08/21 08:04 Dose: 1 tab Prochlorperazine Edisylate (Prochlorperazine 10 Mg/2 Ml Vial) 10 mg IVP Q6HR PRN PRN Reason: Nausea / Vomiting Last Admin: 08/08/21 04:54 Dose: 10 mg Sodium Chloride (Sodium Chloride Flush 0.9% 10 Ml Syringe) 10 ml IVP 0100 ,0900,1700 [facility] Last Admin: 08/08/21 08:05 Dose: 10 ml Sodium Chloride (Sodium Chloride Flush 0.9% 10 Ml Syringe) 10 ml IVP PRN PRN PRN Reason: NEEDED PER PROVIDER ORDERS Last Admin: 08/06/21 19:29 Dose: 10 ml Sodium Phosphate (Neutra-Phos 250 Mg Tablet) 250 mg PO TIDWM [facility] Last Admin: 08/08/21 08:04 Dose: 250 mg Thiamine HCl (Thiamine 100 Mg Tablet) 100 mg PO DAILY [facility] Last Admin: 08/08/21 08:04 Dose: 100 mg Acetaminophen [Tylenol] 650 mg PO Q6H PRN 08/07/21 Objective - Vital Signs/Intake & Output Vital Signs: Vital Signs x48h Temp Pulse Resp BP Pulse Ox 08/08/21 07:29 36.8 C 107 H 18 110/66 95 08/08/21 04:50 36.6 C 100 16 105/67 94 Intake & Output: Intake & Output 08/05/21 08/06/21 08/07/21 08/08/21 23:59 23:59 23:59 23:59 Intake Total 5272.667 5041 3482.000 Output Total 1550 375 Balance 3722.667 4666 3482.000 - Objective General Appearance: positive: Alert, Mild distress. negative: Lethargic Eyes Bilateral: positive: Normal inspection, No lid inflammation ENT: positive: ENT inspection nml, No signs of dehydration. negative: Purulent nasal drainage Neck: positive: Nml inspection, Trachea midline. negative: Tracheal deviation Respiratory: positive: Chest non-tender, No respiratory distress. negative: Wheezes Cardiovascular: positive: Regular rate & rhythm, Tachycardia. negative: Bradycardia, Systolic murmur Peripheral Pulses: 2+ Radial (R), 2+ Radial (L) Abdomen: positive: Non-tender, Nml bowel sounds, No distention, Other (abdomen is soft and have good bowel sound). negative: Tenderness Back: positive: Nml inspection Skin: positive: Color nml, Warm, Dry. negative: Cyanosis Extremities: positive: Non-tender, Full ROM, Nml appearance Neurologic/Psychiatric: positive: Oriented x3, Motor nml, Sensation nml. negative: Weakness, Sensory loss, Facial droop, Slurred/abnml speech, Depressed mood/affect - Lab Results Fish Bones: 08/08/21 04:53 08/08/21 04:53 Other Labs: Lab Results x24hrs 08/08/21 08/08/21 08/08/21 Range/Units 11:29 08:28 08:28 WBC (4.8-10.8) x10^3/uL RBC (4.20-5.40) 10^6/uL Hgb (12.0-16.0) g/dL Hct (37.0-47.0) % MCV (81.0-99.0) fL MCH (27.0-31.0) pg MCHC (32.0-36.0) g/dL RDW (12.0-15.0) % Plt Count (130-450) 10^3/uL MPV (7.9-10.8) fL Neut # (Auto) (1.5-6.6) 10^3/uL Lymph # (Auto) (1.5-3.5) 10^3/uL [place] # (Auto) (0.0-1.0) 10^3/uL Eos # (Auto) (0.0-0.7) 10^3/uL Baso # (Auto) (0.0-0.1) 10^3/uL Absolute Nucleated RBC x10^3/uL Nucleated RBC % /100WBC ESR 8 (0-20) mm/Hr Sodium (135-145) mmol/L Potassium (3.5-5.0) mmol/L Chloride (101-111) mmol/L Carbon Dioxide (21-32) mmol/L Anion Gap (6-13) BUN (6-20) mg/dL Creatinine (0.4-1.0) mg/dL Estimated GFR (MDRD) (>89) Glucose (70-100) mg/dL POC Whole Bld Glucose 109 H (70 - 100) mg/dL Calcium (8.5-10.3) mg/dL Phosphorus (2.5-4.6) mg/dL Magnesium (1.7-2.8) mg/dL Total Bilirubin (0.2-1.0) mg/dL Direct Bilirubin (0.1-0.5) mg/dL AST (10-42) IU/L ALT (10-60) IU/L Alkaline Phosphatase (42-121) IU/L C-Reactive Protein 20.8 H (0-1.0) mg/dL Total Protein (6.7-8.2) g/dL Albumin (3.2-5.5) g/dL Globulin (2.1-4.2) g/dL Amylase (28-100) U/L Lipase (22-51) U/L 08/08/21 08/08/21 08/08/21 Range/Units 07:23 04:53 04:53 WBC 10.8 (4.8-10.8) x10^3/uL RBC 3.47 L (4.20-5.40) 10^6/uL Hgb 12.1 (12.0-16.0) g/dL Hct 36.3 L (37.0-47.0) % MCV 104.6 H (81.0-99.0) fL MCH 34.9 H (27.0-31.0) pg MCHC 33.3 (32.0-36.0) g/dL RDW 13.9 (12.0-15.0) % Plt Count 147 (130-450) 10^3/uL MPV 11.6 H (7.9-10.8) fL Neut # (Auto) 9.0 H (1.5-6.6) 10^3/uL Lymph # (Auto) 0.9 L (1.5-3.5) 10^3/uL Montgomery # (Auto) 0.8 (0.0-1.0) 10^3/uL Eos # (Auto) 0.1 (0.0-0.7) 10^3/uL Baso # (Auto) 0.0 (0.0-0.1) 10^3/uL Absolute Nucleated RBC 0.00 x10^3/uL Nucleated RBC % 0.0 /100WBC ESR (0-20) mm/Hr Sodium 130 L (135-145) mmol/L Potassium 3.1 L (3.5-5.0) mmol/L Chloride 96 L (101-111) mmol/L Carbon Dioxide 27 (21-32) mmol/L Anion Gap 7.0 (6-13) BUN 6 (6-20) mg/dL Creatinine 0.5 (0.4-1.0) mg/dL Estimated GFR (MDRD) 141 (>89) Glucose 102 H (70-100) mg/dL POC Whole Bld Glucose 94 (70 - 100) mg/dL Calcium 7.4 L (8.5-10.3) mg/dL Phosphorus 1.8 L (2.5-4.6) mg/dL Magnesium 1.5 L (1.7-2.8) mg/dL Total Bilirubin 0.9 (0.2-1.0) mg/dL Direct Bilirubin 0.2 (0.1-0.5) mg/dL AST 20 (10-42) IU/L ALT 16 (10-60) IU/L Alkaline Phosphatase 69 (42-121) IU/L C-Reactive Protein (0-1.0) mg/dL Total Protein 4.7 L (6.7-8.2) g/dL Albumin 2.3 L (3.2-5.5) g/dL Globulin 2.4 (2.1-4.2) g/dL Amylase 205 H (28-100) U/L Lipase 264 H (22-51) U/L 08/07/21 08/07/21 Range/Units 20:42 16:52 WBC (4.8-10.8) x10^3/uL RBC (4.20-5.40) 10^6/uL Hgb (12.0-16.0) g/dL Hct (37.0-47.0) % MCV (81.0-99.0) fL MCH (27.0-31.0) pg MCHC (32.0-36.0) g/dL RDW (12.0-15.0) % Plt Count (130-450) 10^3/uL MPV (7.9-10.8) fL Neut # (Auto) (1.5-6.6) 10^3/uL Lymph # (Auto) (1.5-3.5) 10^3/uL Montgomery # (Auto) (0.0-1.0) 10^3/uL Eos # (Auto) (0.0-0.7) 10^3/uL Baso # (Auto) (0.0-0.1) 10^3/uL Absolute Nucleated RBC x10^3/uL Nucleated RBC % /100WBC ESR (0-20) mm/Hr Sodium (135-145) mmol/L Potassium (3.5-5.0) mmol/L Chloride (101-111) mmol/L Carbon Dioxide (21-32) mmol/L Anion Gap (6-13) BUN (6-20) mg/dL Creatinine (0.4-1.0) mg/dL Estimated GFR (MDRD) (>89) Glucose (70-100) mg/dL POC Whole Bld Glucose 108 H 110 H (70 - 100) mg/dL Calcium (8.5-10.3) mg/dL Phosphorus (2.5-4.6) mg/dL Magnesium (1.7-2.8) mg/dL Total Bilirubin (0.2-1.0) mg/dL Direct Bilirubin (0.1-0.5) mg/dL AST (10-42) IU/L ALT (10-60) IU/L Alkaline Phosphatase (42-121) IU/L C-Reactive Protein (0-1.0) mg/dL Total Protein (6.7-8.2) g/dL Albumin (3.2-5.5) g/dL Globulin (2.1-4.2) g/dL Amylase (28-100) U/L Lipase (22-51) U/L ABX Reporting Has patient been on IV antibiotics over the past 48 hours?: Yes Assessment/Plan - Problem List (1) Pancreatitis Impression: 08/08 pt report she persistent abdominal pain, and she has dark urine, Although pt's lipase is down to 200 range from 1400 at admission. order CRP and it elevated to 21. Repeat CT show persistent hypoenhancing areas in the uncinate process which reflect developing pseudocysts or necrosis. consult with surgeon, she recommend we start with antibiotics because pt's WBC left shift to prevention of infection of pancreatic necrosis. we will continue closely vital monitor to Q4H, lab monitor, pain control, slight reduce IVF dosage because pt develop pleural effusion, continue with clear diet 08/07 pt recognize it is her alcohol caused her acute pancreatitis as her hx. Also pt had elevated AST comparing ALT. CT of abdomen reveal acute pancreatitis. his lipase is reduced after treated overnight. but pt still report she had si gnificant abdominal pain. right upper quadrant ultrasound reveals there is no evidence of gallstones. triglycerides is normal arrange. we will continue bowel rest, IVF, continue lab monitor, pain control, Antiemesis as needed. Up-to-date of pt's medical conditions to patient's mother, answered her questions and concerns. (2) Hypokalemia 08/08 K is 3.1, replace and lab monitor resolved (3) Alcohol abuse Conclusion/Plan: pt do not present alcohol withdrawal symptoms now. It is likely the cause to have her acute pancreatitis. we will continue vitamin B1, add . pt clearly state she will quit alcohol (4) Hyperglycemia resolved. A1C is 5.2 (5) COVID-19 Conclusion/Plan: stable, pt is asymptomatic. She tested positive for COVID-19 on the admission PCR but she reports infection last month. CT the abdomen pelvis showed no lung pathology. (6)pleural effusion CT show pt develop small to moderate bilateral Pleural effusion. Patient has no respiratory distress, Patient had 95% on room air. We will reduce IV fluids, advise pt out of bed, vital monitor closely Qualifiers: Chronicity: acute Pancreatitis type: unspecified pancreatitis type
[2021-08-08] MEDS: metroNIDAZOLE 500 MG/100 ML 500 MG/100 ML BAG IV SCH ×2 (12:26→20:24)
[2021-08-08] MEDS: ACETAMINOPHEN 325 MG TABLET PO PRN (12:49)
[2021-08-08] MEDS: CEFEPIME 1 GM in SODIUM CHLORIDE 0.9% MINIBAG 100 ML IV SCH ×2 (14:26→21:22)
--- NOTE | 2021-08-08 19:10 | CONSULTATION NOTE ---
Referring Provider Name of Referring Provider:: Obed Smith Consult Date: 08/08/21 Chief Complaint - Chief Complaint Chief Complaint: Abdominal pain History of Present Illness - Admitted From Admitted From:: ED - History Obtained From Records Reviewed: Other providers notes and prior admissions History obtained from: Patient Exam Limitations: Patient discomfort - History of Present Illness HPI Comment/Other: Tyron is a very pleasant 35-year-old lady who was admitted to the medicine service on 06 August complaining of abdominal pain. She says that she woke up at 2 AM and had severe epigastric pain, worse than she is ever experienced in her life. She says it radiated over her entire abdomen. She had no fever or chills but she had 2 loose stools and then presented to the emergency room. She has had a prior admission for pancreatitis. She tells me that life has been stressful and for a while she was using alcohol to cope. She is no longer drinking regularly but she did have about 3 beers last week.Additionally, she was diagnosed with Covid last month. She said she is feeling much better from that and she did not really think that it was related.She was seen and evaluated in the emergency room and diagnosed with acute pancreatitis both by lab studies as well as CT findings. She was admitted to the hospitalist service. I have been consulted today by ADRIAN Smith because her pain is not really improving. She tells me that it is actually worse today than it was yesterday. Hospitalist Service repeated the CT scan which showed worsening ascites and low-density areas in the head of the pancreas that were concerning for either necrosis or pseudocyst formation. The pancreas itself is essentially unchanged from appearance at admissions. Tyron has been afebrile since her admission here. History - Past Medical History Cardiovascular: reports: None Respiratory: reports: None Neuro: reports: None Endocrine/Autoimmune: reports: None GI: reports: GERD, Ulcers, Pancreatitis SURFACE ROOM [employer]: reports: None : reports: Kidney stones HEENT: reports: None Psych: reports: Depression Musculoskeletal: reports: None Derm: reports: None MRSA Hx?: No - Past Surgical History /SUR[employer]: reports: Other (Intervention for staghorn calculi) HEENT: reports: Tonsil/Adenoidectomy - Family & Social History Family History Comment/Other: Her mother has history of thyroid disease. Living arrangement: At home Living Situation: With family Social History Notes: She previously ank alcohol on a consistent basis but now reports 1-2 beverages a week. She smokes a couple cigarettes a day and has been doing so for the past 16 years. - POLST Patient has POLST: No POLST Status: Full Code Meds/Allgy - Home Medications Home Medications: Ambulatory Orders Medication Instructions Recorded Confirmed Acetaminophen [Tylenol] 650 mg PO Q6H PRN 08/07/21 08/07/21 - Allergies Allergies/Adverse Reactions: Allergies Allergy/AdvReac Type Severity Reaction Status Date / Time No Known Drug Allergies Allergy Verified 08/06/21 05:59 Review of Systems - Constitutional Constitutional: reports: Fatigue - Gastrointestinal Gastrointestinal: reports: Abdominal pain, Diarrhea, Nausea - Integumentary Integumentary: denies: Rash, Pigment changes - Psychiatric Psychiatric: reports: Depression - All Other Systems All Other Systems: reports: Reviewed and negative Exam - Vital Signs Reviewed Vital Signs: Yes Vital Signs: Vital Signs x48h Temp Pulse Pulse Resp BP Pulse Ox 08/08/21 16:12 36.4 C L 112 H 20 124/79 96 08/08/21 13:00 37 C 109 H 17 106/70 - Physical Exam General Appearance: positive: No acute distress, Alert Eyes Bilateral: positive: Normal inspection, PERRL, EOMI ENT: positive: ENT inspection nml Neck: positive: Nml inspection, Thyroid nml, No JVD Respiratory: positive: Chest non-tender, No respiratory distress Cardiovascular: positive: Regular rate & rhythm Peripheral Pulses: positive: 1+ Abdomen: positive: Tenderness, Guarding, Other (Hypoactive bowel tones but present) Skin: positive: Color nml Neurologic/Psychiatric: positive: Oriented x3 Conclusion and Plan - Lab Results Laboratory Results 08/08/21 16:32: POC Whole Bld Glucose 91 08/08/21 11:29: POC Whole Bld Glucose 109 H 08/08/21 08:28: ESR 8 08/08/21 08:28: C-Reactive Protein 20.8 H 08/08/21 07:23: POC Whole Bld Glucose 94 08/08/21 04:53: Sodium 130 L, Potassium 3.1 L, Chloride 96 L, Carbon Dioxide 27, Anion Gap 7.0, BUN 6, Creatinine 0.5, Estimated GFR (MDRD) 141, Glucose 102 H, Calcium 7.4 L, Phosphorus 1.8 L, Magnesium 1.5 L, Total Bilirubin 0.9, Direct Bilirubin 0.2, AST 20, ALT 16, Alkaline Phosphatase 69, Total Protein 4.7 L, Albumin 2.3 L, Globulin 2.4, Amylase 205 H, Lipase 264 H 08/08/21 04:53: WBC 10.8, RBC 3.47 L, Hgb 12.1, Hct 36.3 L, MCV 104.6 H, MCH 34.9 H, MCHC 33.3, RDW 13.9, Plt Count 147, MPV 11.6 H, Neut # (Auto) 9.0 H, Lymph # (Auto) 0.9 L, [place] # (Auto) 0.8, Eos # (Auto) 0.1, Baso # (Auto) 0.0, Absolute Nucleated RBC 0.00, Nucleated RBC % 0.0 08/07/21 20:42: POC Whole Bld Glucose 108 H 08/07/21 16:52: POC Whole Bld Glucose 110 H 08/07/21 11:22: POC Whole Bld Glucose 105 H 08/07/21 05:48: POC Whole Bld Glucose 103 H 08/07/21 04:48: Vitamin B12 391, Folate 8.31 08/07/21 04:48: Sodium 132 L, Potassium 3.4 L, Chloride 99 L, Carbon Dioxide 23, Anion Gap 10.0, BUN 5 L, Creatinine 0.5, Estimated GFR (MDRD) 141, Glucose 101 H, Calcium 7.4 L, Phosphorus 2.0 L, Magnesium 1.8, Total Bilirubin 1.2 H, Direct Bilirubin 0.3, AST 33, ALT 21, Alkaline Phosphatase 60, Total Protein 5.0 L, Albumin 2.8 L, Globulin 2.2, Amylase 455 H*, Lipase 770 H 08/07/21 04:48: WBC 9.1, RBC 3.63 L, Hgb 12.7, Hct 37.8, MCV 104.1 H, MCH 35.0 H, MCHC 33.6, RDW 13.2, Plt Count 149, MPV 11.1 H, Neut # (Auto) Not Reportable, Lymph # (Auto) Not Reportable, [place] # (Auto) Not Reportable, Eos # (Auto) Not Reportable, Baso # (Auto) Not Reportable, Absolute Nucleated RBC Not Reportable, Total Counted 100, Band Neuts % (Manual) 1, Abnorm Lymph % (Manual) 0, Nucleated RBC % Not Reportable, Neutrophils # (Manual) 7.9 H, Lymphocytes # (Manual) 0.6 L, Monocytes # (Manual) 0.5, Eosinophils # (Manual) 0.0, Basophils # (Manual) 0.0, Differential Comment MANUAL DIFFERENTIAL, WBC Morphology NORMAL APPEARANCE, Platelet Estimate NORMAL (130-450,000), Platelet Morphology NORMAL APPEARANCE, RBC Morph Micro Appear NORMAL APPEARANCE 08/06/21 23:23: POC Whole Bld Glucose 114 H - Diagnostic Imaging Results Diagnostic Imaging Results: positive: Final report reviewed Diagnostic Imaging Results Comments: Final Report PT NAME: TYRON WESTBROOK MR#: [id number] ADM IN/MS2 AGE: 35 CI DT/TM: 08/08/21 PCP: : 1985 ATT: Edward Castañeda MD SEX: F ORD: Pretty EXAM: [id number] CT/ABPEW ([id number]) PROCEDURE: Abdomen/Pelvis W INDICATIONS: worsening abdominal pain, pancreatic necrosis? CONTRAST: IV CONTRAST: Optiray 320 ml: 100 PO CONTRAST: *NO PO CONTRAST TECHNIQUE: After the administration of intravenous contrast, 5 mm thick sections acquired from the diaphragms to the symphysis. 5 mm thick coronal and sagittal reformats were acquired. For radiation dose re duction, the following was used: automated exposure control, adjustment of mA and/or kV according to patient size. COMPARISON: August 06, 2021. FINDINGS: Inferior chest: Small to moderate bilateral pleural effusions with adjacent atelectasis. No cardiomegaly or pericardial effusion. Gallbladder: The gallbladder is distended with a smooth thin wall. Biliary tree: No intra-or extrahepatic biliary ductal dilatation. Liver: Normal enhancement and contour. Enlarged, measuring 23 cm in length. Spleen: Normal enhancement, size and morphology is seen. Pancreas: No contour deforming mass. Edematous appearance of the pancreas with surrounding infiltrative change and fluid, compatible with acute pancreatitis. Persistent 2 subcentimeter, hypoattenuating areas are seen in the uncinate process, which may reflect developing pseudocysts or necrosis. Adrenals: Normal size without masses. Kidneys/ureters: Normal size and morphology. No solid masses or hydronephrosis. Vasculature: No evidence of aneurysm or other significant vascular pathology. Lymphatic system: No pathologic enlargement by size criteria. GI/mesentery: No evidence of intestinal obstruction. Mild wall thickening of the duodenum, compatible with reactive duodenitis. Normal appearance of the appendix. Peritoneum/Retroperitoneum: Small to moderate volume ascites. No free intraperitoneal gas. Urinary bladder: Not well distended but grossly unremarkable. Pelvic organs: An intrauterine device is seen in situ. Bones/soft tissues: Small fat-containing periumbilical hernia. Anasarca. No significant osseous abnormality. IMPRESSION: 1.Interval development of small to moderate bilateral pleural effusions with adjacent atelectasis. 2.Hepatomegaly. 3.Increased intra-abdominal ascites. 4.Persistent hypoenhancing areas in the uncinate process, which may reflect developing pseudocysts or necrosis. 5.Mild reactive duodenitis. 6.Anasarca. Reviewed by: Lanre Retana MD on 08/08/2021 11:05 AM PST Approved by: Lanre Retana MD on 08/08/2021 11:05 AM PST - EKG Results EKG Interpreted Independently: No - Diagnosis Diagnosis: Acute on chronic pancreatitis with likely pseudocyst formation and ascites. - Consultation Note Consultation Note: Very stressed out 35-year-old single mom with a second episode of pancreatitis more severe than her first by report. I am concerned that she may have an element of spontaneous bacterial peritonitis as her white count is essentially stable but she does have a bandemia on today's differential. As her pain is not improving, I would start empiric antibiotic therapy. There is no intervention to proceed with at this time. She is getting adequate hydration, pain control, and with IV antibiotic therapy as well as close monitoring, we can hope to see her improve over the next several days.If she does not improve, we may need to consider MRCP or ERCP or referral to a pancreaticobiliary center. At this point, That is necessary or in her best interest.If she does not begin to improve, that opinion could change. - Plan Plan: Agree with empiric antibiotic therapy. We will continue pain control and close monitoring. N.p.o. with nutritional support. We will follow along with you.
[2021-08-09] MEDS: KETOROLAC 30 MG/ML VIAL IVP PRN ×4 (00:10→19:24)
[2021-08-09] MEDS: SODIUM CHLORIDE FLUSH 0.9% 10 ML SYRINGE IVP SCH ×3 (00:11→16:44)
[2021-08-09] MEDS: HYDROmorphone 1 MG/ML CARPUJECT IVP PRN ×9 (03:10→22:30)
[2021-08-09] MEDS: metroNIDAZOLE 500 MG/100 ML 500 MG/100 ML BAG IV SCH ×3 (03:47→20:34)
[2021-08-09] MEDS: SODIUM CHLORIDE FLUSH 0.9% 10 ML SYRINGE IVP PRN ×2 (03:47→19:24)
[2021-08-09 05:14] LABS: BASOPHILS % (AUTO) 0.2 %; EOSINOPHILS % (AUTO) 0.4 %; HCT - HEMATOCRIT 36.9 % (37.0-47.0); HGB - HEMOGLOBIN 12.3 g/dL (12.0-16.0); LYMPHOCYTES # (AUTO) 0.6 10^3/uL (1.5-3.5); LYMPHOCYTES % (AUTO) 5.3 %; MEAN CORPUSCULAR HEMOGLOBIN 35.4 pg (27.0-31.0); MEAN CORPUSCULAR HGB CONC 33.3 g/dL (32.0-36.0); MEAN CORPUSCULAR VOLUME 106.3 fL (81.0-99.0); MEAN PLATELET VOLUME 11.1 fL (7.9-10.8); MONOCYTES # (AUTO) 1.2 10^3/uL (0.0-1.0); PLT - PLATELET COUNT 147 10^3/uL (130-450); RED BLOOD COUNT 3.47 10^6/uL (4.20-5.40); WHITE BLOOD COUNT 10.9 x10^3/uL (4.8-10.8)
[2021-08-09 05:40] LABS: ALBUMIN 2.2 g/dL (3.2-5.5); BILIRUBIN,DIRECT 0.3 mg/dL (0.1-0.5); BILIRUBIN,TOTAL 0.8 mg/dL (0.2-1.0); CALCIUM 7.5 mg/dL (8.5-10.3); CREATININE 0.6 mg/dL (0.4-1.0); CRP - C-REACTIVE PROTEIN 28.3 mg/dL (0-1.0); MAGNESIUM 1.9 mg/dL (1.7-2.8); PHOSPHORUS 2.4 mg/dL (2.5-4.6); TOTAL PROTEIN 5.1 g/dL (6.7-8.2)
[2021-08-09] MEDS: CEFEPIME 1 GM in SODIUM CHLORIDE 0.9% MINIBAG 100 ML IV SCH ×3 (06:03→22:34)
[2021-08-09] MEDS ORDERED: POTASSIUM CHLORIDE 20 MEQ TABLET PO ONE (06:53)
[2021-08-09] MEDS ORDERED: POTASSIUM CHLOR 10 MEQ/100 ML 10 MEQ/100 ML BAG IV SCH (08:00)
[2021-08-09] MEDS: INSULIN ASPART 300 UNIT/3 ML PEN SUBQ SCH ×2 (09:04→11:44)
[2021-08-09] MEDS: ONDANSETRON 4 MG/2 ML VIAL IVP PRN ×3 (09:05→22:30)
[2021-08-09] MEDS: NEUTRA-PHOS 250 MG TABLET PO SCH ×3 (09:25→16:45)
[2021-08-09] MEDS: PRENATAL VITAMIN TABLET PO SCH (09:25)
[2021-08-09] MEDS: THIAMINE 100 MG TABLET PO SCH (09:25)
[2021-08-09] MEDS: ENOXAPARIN 40 MG/0.4 ML SYRINGE SUBQ SCH (09:26)
[2021-08-09] MEDS: polyethylene glycoL 3350 17 GM PACKET PO SCH (09:26)
[2021-08-09] MEDS: NICOTINE 7 MG PATCH TOP SCH (09:26)
[2021-08-09] MEDS: POTASSIUM CHLOR 10 MEQ/100 ML 10 MEQ/100 ML BAG IV SCH ×2 (09:39→10:40)
[2021-08-09] MEDS: SODIUM CHLORIDE 0.9% 1,000 ML IV SCH ×2 (10:01→22:33)
--- NOTE | 2021-08-09 11:28 | PROVIDER PROGRESS NOTE ---
Assessment/Plan - Problem List (1) Pancreatitis Qualifiers: Chronicity: acute Pancreatitis type: unspecified pancreatitis type Assessment/Plan: 08/09 pt report her abdominal pain is slight reduced and better controlled. she feel better. pt had slight elevated WBC, still elevated CRP but she had no fever. Lipase is down to 97 close to normal on today. we will continue antibiotics, continue pain control, gently IVF, antiemesis PRN surgeon was consulted for pt, Thank surgeon. 08/08 pt report she persistent abdominal pain, and she has dark urine, Although pt's lipase is down to 200 range from 1400 at admission. order CRP and it elevated to 21. Repeat CT show persistent hypoenhancing areas in the uncinate process which reflect developing pseudocysts or necrosis. consult with surgeon, she recommend we start with antibiotics because pt's WBC left shift to prevention of infection of pancreatic necrosis. we will continue closely vital monitor to Q4H, lab monitor, pain control, slight reduce IVF dosage because pt develop pleural effusion, continue with clear diet 08/07 pt recognize it is her alcohol caused her acute pancreatitis as her hx. Also pt had elevated AST comparing ALT. CT of abdomen reveal acute pancreatitis. his lipase is reduced after treated overnight. but pt still report she had significant abdominal pain. right upper quadrant ultrasound reveals there is no evidence of gallstones. triglycerides is normal arrange. we will continue bowel rest, IVF, continue lab monitor, pain control, Antiemesis as needed. Up-to-date of pt's medical conditions to patient's mother, answered her questions and concerns. (2) Hypokalemia 08/09 potassium is still low, will replace. pt has hx of hypokalemia, continue lab monitor 08/08 K is 3.1, replace and lab monitor resolved (3) Alcohol abuse Conclusion/Plan: pt do not present alcohol withdrawal symptoms now. It is likely the cause to have her acute pancreatitis. we will continue vitamin B1, add . pt clearly state she will quit alcohol (4) Hyperglycemia resolved. A1C is 5.2 (5) COVID-19 Conclusion/Plan: stable, pt is asymptomatic. She tested positive for COVID-19 on the admission PCR but she reports infection last month. CT the abdomen pelvis showed no lung pathology. (6)pleural effusion CT show pt develop small to moderate bilateral Pleural effusion. Patient has no respiratory distress, Patient had 95% on room air. We will reduce IV fluids, advise pt out of bed, vital monitor closely - Current Meds Current Meds: Current Medications Generic Name Dose Route Start Last Admin Trade Name Freq PRN Reason Stop Dose Admin Acetaminophen 650 mg 08/06/21 07:23 08/08/21 12:49 Acetaminophen 325 Mg Tablet PO 650 mg Q4HR PRN Administration Pain 1 to 4 Enoxaparin Sodium 40 mg 08/06/21 09:00 08/09/21 09:26 Enoxaparin 40 Mg/0.4 Ml Syringe SUBQ 40 mg DAILY LUC[facility] Administration Hydromorphone HCl 1 mg 08/06/21 07:52 08/09/21 09:05 Hydromorphone 1 Mg/Ml Carpuject IVP 1 mg Q2H PRN Administration Pain 8 to 10 Cefepime HCl 1 gm/ Sodium 100 mls @ 200 mls/hr 08/08/21 14:00 08/09/21 06:39 Chloride IV Infused TID LUCY Infusion Metronidazole 500 mg in 100 mls @ 100 mls/hr 08/08/21 12:00 08/09/21 05:18 Flagyl 500 Mg/100 Ml IV Infused Q8H LUCY Infusion Sodium Chloride 1,000 mls @ 83.333 mls/hr 08/09/21 10:00 08/09/21 10:01 Normal Saline 0.9% IV 83.333 mls/hr .Q12H L[facility] Administration Insulin Aspart 1 - 9 unit 08/07/21 21:00 08/09/21 09:04 Insulin Aspart 300 Unit/3 Ml Pen SUBQ Not Given 0800,1200,1700,2100 [facility] Protocol Ketorolac Tromethamine 30 mg 08/06/21 19:02 08/09/21 06:03 Ketorolac 30 Mg/Ml Vial IVP 08/11/21 19:01 30 mg Q6HR PRN Administration PAIN Nicotine 1 patch 08/06/21 22:12 08/09/21 09:26 Nicotine 7 Mg Patch TOP 1 patch DAILY [facility] Administration Ondansetron HCl 4 mg 08/06/21 07:23 08/09/21 09:05 Ondansetron 4 Mg/2 Ml Vial IVP 4 mg Q6HR PRN Administration Nausea / Vomiting Polyethylene Glycol 17 gm 08/09/21 09:00 08/09/21 09:26 Polyethylene Glycol 3350 17 Gm Packet PO 17 gm DAILY LUC[facility] Administration Multivit/Folic Acid/Iron 1 tab 08/07/21 08:00 08/09/21 09:25 Vitamin Tablet PO 1 tab DAILYWM [facility] Administration Prochlorperazine Edisylate 10 mg 08/06/21 07:23 08/08/21 21:50 Prochlorperazine 10 Mg/2 Ml Vial IVP 10 mg Q6HR PRN Administration Nausea / Vomiting Sodium Chloride 10 ml 08/06/21 09:00 08/09/21 09:26 Sodium Chloride Flush 0.9% 10 Ml Syringe IVP 10 ml 0100,0900,1700 [facility] Administration Sodium Chloride 10 ml 08/06/21 07:23 08/09/21 03:47 Sodium Chloride Flush 0.9% 10 Ml Syringe IVP 10 ml PRN PRN Administration NEEDED PER PROVIDER ORDERS Sodium Phosphate 250 mg 08/07/21 08:00 08/09/21 09:25 Neutra-Phos 250 Mg Tablet PO 250 mg TIDWM [facility] Administration Thiamine HCl 100 mg 08/08/21 09:00 08/09/21 09:25 Thiamine 100 Mg Tablet PO 100 mg DAILY LUCY Administration - Lab Result Fish Bone Diagrams: 08/09/21 04:50 08/09/21 04:50 - Additional Planning My Orders: My Active Orders 08/08/21 11:13 Out of bed 3+ hours today [RC] TID 08/08/21 12:00 metroNIDAZOLE 500 MG/100 ML [Flagyl 500 mg/100 ml] 500 mg in 100 ml IV Q8H 08/08/21 14:00 Cefepime [Maxipime] 1 gm Sodium Chloride 0.9% Minibag [Normal Saline 0.9% Minibag] 100 ml IV TID 08/08/21 18:14 Telemetry- [RC] Q4HR 08/09/21 10:00 Sodium Chloride 0.9% [Normal Saline 0.9%] 1,000 ml IV 83.333 mls/hr 08/10/21 05:00 CRP - C-REACTIVE PROTEIN [CHEM] DAILYLAB 08/11/21 05:00 CRP - C-REACTIVE PROTEIN [CHEM] DAILYLAB 08/12/21 05:00 CRP - C-REACTIVE PROTEIN [CHEM] DAILYLAB 08/13/21 05:00 CRP - C-REACTIVE PROTEIN [CHEM] DAILYLAB Subjective - Subjective Patient Reports: Feeling Better, Resting Comfortably Objective Vital Signs: Vital Signs - 24 hr 08/08/21 08/08/21 08/08/21 13:00 16:12 21:00 Temperature 37 C 36.4 C L 36.5 C Heart Rate [ 109 H Brachial] Heart Rate [ 112 H 108 H Monitoring electrodes] Respiratory 17 20 20 Rate Blood Pressure 106/70 124/79 117/69 [Left Brachial artery] O2 Saturation 96 96 08/08/21 08/09/21 08/09/21 23:34 05:27 08:10 Temperature 37.1 C 37.1 C 37.1 C Heart Rate [ 109 H 94 110 H Brachial] Heart Rate [ Monitoring electrodes] Respiratory 16 18 16 Rate Blood Pressure 113/68 152/81 H 119/69 [Left Brachial artery] O2 Saturation 94 100 96 Oxygen O2 Source Room air I&O (Last 24 Hrs): Intake and Output Totals x24h 08/07/21 08/08/21 08/09/21 23:59 23:59 23:59 Intake Total 5041 5985.333 550 Output Total 375 550 Balance 4666 5435.333 550 General: Alert, Oriented x3, Cooperative, No acute distress HEENT: Atraumatic Neck: Supple Lymphatic: no adenopathy Neuro: Alert, Non Focal, Oriented Times 3 Cardiovascular: Regular rate, Normal S1, Normal S2 Respiratory: Chest non-tender, No respiratory distress Abdomen: Normal bowel sounds, Soft Extremities: Normal pulses - Results Results: Laboratory Results WBC 10.9 x10^3/uL (4.8-10.8) H 08/09/21 04:50 RBC 3.47 10^6/uL (4.20-5.40) L 08/09/21 04:50 Hgb 12.3 g/dL (12.0-16.0) 08/09/21 04:50 Hct 36.9 % (37.0-47.0) L 08/09/21 04:50 MCV 106.3 fL (81.0-99.0) H 08/09/21 04:50 MCH 35.4 pg (27.0-31.0) H 08/09/21 04:50 MCHC 33.3 g/dL (32.0-36.0) 08/09/21 04:50 RDW 14.0 % (12.0-15.0) 08/09/21 04:50 Plt Count 147 10^3/uL (130-450) 08/09/21 04:50 MPV 11.1 fL (7.9-10.8) H 08/09/21 04:50 Neut # (Auto) 9.0 10^3/uL (1.5-6.6) H 08/09/21 04:50 Lymph # (Auto) 0.6 10^3/uL (1.5-3.5) L 08/09/21 04:50 [place] # (Auto) 1.2 10^3/uL (0.0-1.0) H 08/09/21 04:50 Eos # (Auto) 0.0 10^3/uL (0.0-0.7) 08/09/21 04:50 Baso # (Auto) 0.0 10^3/uL (0.0-0.1) 08/09/21 04:50 Absolute Nucleated RBC 0.00 x10^3/uL 08/09/21 04:50 Total Counted 100 08/07/21 04:48 Band Neuts % (Manual) 1 % (0-10) 08/07/21 04:48 Abnorm Lymph % (Manual) 0 % 08/07/21 04:48 Nucleated RBC % 0.0 /100WBC 08/09/21 04:50 Neutrophils # (Manual) 7.9 10^3/uL (1.5-6.6) H 08/07/21 04:48 Lymphocytes # (Manual) 0.6 10^3/uL (1.5-3.5) L 08/07/21 04:48 Monocytes # (Manual) 0.5 10^3/uL (0.0-1.0) 08/07/21 04:48 Eosinophils # (Manual) 0.0 10^3/uL (0-0.7) 08/07/21 04:48 Basophils # (Manual) 0.0 10^3/uL (0-0.1) 08/07/21 04:48 Differential Comment MANUAL DIFFERENTIAL 08/07/21 04:48 WBC Morphology NORMAL APPEARANCE (NORMAL) 08/07/21 04:48 Platelet Estimate NORMAL (130-450,000) (NORMAL) 08/07/21 04:48 Platelet Morphology NORMAL APPEARANCE (NORMAL) 08/07/21 04:48 RBC Morph Micro Appear NORMAL APPEARANCE (NORMAL) 08/07/21 04:48 ESR 8 mm/Hr (0-20) 08/08/21 08:28 Sodium 130 mmol/L (135-145) L 08/09/21 04:50 Potassium 3.0 mmol/L (3.5-5.0) L 08/09/21 04:50 Chloride 96 mmol/L (101-111) L 08/09/21 04:50 Carbon Dioxide 27 mmol/L (21-32) 08/09/21 04:50 Anion Gap 7.0 (6-13) 08/09/21 04:50 BUN 8 mg/dL (6-20) 08/09/21 04:50 Creatinine 0.6 mg/dL (0.4-1.0) 08/09/21 04:50 Estimated GFR (MDRD) 114 (>89) 08/09/21 04:50 Glucose 116 mg/dL (70-100) H 08/09/21 04:50 POC Whole Bld Glucose 103 mg/dL (70 - 100) H 08/09/21 07:41 Estimat Average Glucose 103 mg/dL (70-100) H 08/06/21 06:00 Hemoglobin A1c % 5.2 % (4.27-6.07) 08/06/21 06:00 Calcium 7.5 mg/dL (8.5-10.3) L 08/09/21 04:50 Phosphorus 2.4 mg/dL (2.5-4.6) L 08/09/21 04:50 Magnesium 1.9 mg/dL (1.7-2.8) 08/09/21 04:50 Total Bilirubin 0.8 mg/dL (0.2-1.0) 08/09/21 04:50 Direct Bilirubin 0.3 mg/dL (0.1-0.5) 08/09/21 04:50 AST 20 IU/L (10-42) 08/09/21 04:50 ALT 14 IU/L (10-60) 08/09/21 04:50 Alkaline Phosphatase 86 IU/L (42-121) 08/09/21 04:50 C-Reactive Protein 28.3 mg/dL (0-1.0) H 08/09/21 04:50 Total Protein 5.1 g/dL (6.7-8.2) L 08/09/21 04:50 Albumin 2.2 g/dL (3.2-5.5) L 08/09/21 04:50 Globulin 2.9 g/dL (2.1-4.2) 08/09/21 04:50 Albumin/Globulin Ratio 1.2 (1.0-2.2) 08/06/21 06:00 Triglycerides 67 mg/dL (-149) 08/06/21 06:00 Cholesterol 207 mg/dL (-199) H 08/06/21 06:00 LDL Cholesterol, Calc 76 mg/dL (-129) 08/06/21 06:00 VLDL Cholesterol 13 mg/dL 08/06/21 06:00 HDL Cholesterol 118 mg/dL (60-) 08/06/21 06:00 LDL/HDL Ratio 0.6 (<4.4) 08/06/21 06:00 Cholesterol/HDL Ratio 1.8 (<4.4) 08/06/21 06:00 Amylase 99 U/L (28-100) 08/09/21 04:50 Lipase 97 U/L (22-51) H 08/09/21 04:50 Vitamin B12 391 pg/mL (180-914) 08/07/21 04:48 Folate 8.31 ng/mL (5.90 - >24.8) 08/07/21 04:48 Urine Color YELLOW 08/06/21 06:00 Urine Clarity CLEAR (CLEAR) 08/06/21 06:00 Urine pH 5.5 PH (5.0-7.5) 08/06/21 06:00 Ur Specific [place] 1.025 (1.002-1.030) 08/06/21 06:00 Urine Protein NEGATIVE mg/dL (NEGATIVE) 08/06/21 06:00 Urine Glucose (UA) 500 mg/dL (NEGATIVE) H 08/06/21 06:00 Urine Ketones 15 mg/dL (NEGATIVE) H 08/06/21 06:00 Urine Occult Blood NEGATIVE (NEGATIVE) 08/06/21 06:00 Urine Nitrite NEGATIVE (NEGATIVE) 08/06/21 06:00 Urine Bilirubin NEGATIVE (NEGATIVE) 08/06/21 06:00 Urine Urobilinogen 0.2 (NORMAL) E.U./dL (NORMAL) 08/06/21 06:00 Ur Leukocyte Esterase TRACE (NEGATIVE) H 08/06/21 06:00 Urine RBC None Seen /HPF (0-5) 08/06/21 06:00 Urine WBC 0-3 /HPF (0-5) 08/06/21 06:00 Ur Squamous Epith Cells MOD Squamous (<= Few) H 08/06/21 06:00 Urine Bacteria Rare /HPF (None Seen) 08/06/21 06:00 Ur Microscopic Review INDICATED 08/06/21 06:00 Urine Culture Comments NOT INDICATED 08/06/21 06:00 Urine HCG, Qual NEGATIVE 08/06/21 06:00 Nasal Adenovirus (PCR) NOT DETECTED 08/06/21 07:30 Nasal B. parapertussis DNA (PCR) NOT DETECTED 08/06/21 07:30 Nasal Coronavir 229E PCR NOT DETECTED 08/06/21 07:30 Nasal Coronavir HKU1 PCR NOT DETECTED 08/06/21 07:30 Nasal Coronavir NL63 PCR NOT DETECTED 08/06/21 07:30 Nasal Coronavir OC43 PCR NOT DETECTED 08/06/21 07:30 Nasal Enterovir/Rhinovir PCR NOT DETECTED 08/06/21 07:30 Nasal Influenza B PCR NOT DETECTED 08/06/21 07:30 Nasal Influenza A PCR NOT DETECTED 08/06/21 07:30 Nasal Parainfluen 1 PCR NOT DETECTED 08/06/21 07:30 Nasal Parainfluen 2 PCR NOT DETECTED 08/06/21 07:30 Nasal Parainfluen 3 PCR NOT DETECTED 08/06/21 07:30 Nasal Parainfluen 4 PCR NOT DETECTED 08/06/21 07:30 Nasal RSV (PCR) NOT DETECTED 08/06/21 07:30 Nasal Screen MRSA (PCR) NEGATIVE (NEGATIVE) 08/06/21 09:00 Nasal B.pertussis DNA PCR NOT DETECTED 08/06/21 07:30 Nasal C.pneumoniae (PCR) NOT DETECTED 08/06/21 07:30 [place] Human Metapneumo PCR NOT DETECTED 08/06/21 07:30 Nasal M.pneumoniae (PCR) NOT DETECTED 08/06/21 07:30 Nasal SARS-CoV-2 (PCR) DETECTED A 08/06/21 07:30 - Procedures Procedures: Procedures MANUAL ASSIST DELIV NEC (11/14/14) ABX Reporting Has patient been on IV antibiotics over the past 48 hours?: Yes Current Medications - Current Medications Current Medications: Active Medications Acetaminophen (Acetaminophen 325 Mg Tablet) 650 mg PO Q4HR PRN PRN Reason: Pain 1 to 4 Last Admin: 08/08/21 12:49 Dose: 650 mg Enoxaparin Sodium (Enoxaparin 40 Mg/0.4 Ml Syringe) 40 mg SUBQ DAILY [facility] Last Admin: 08/09/21 09:26 Dose: 40 mg Hydromorphone HCl (Hydromorphone 1 Mg/Ml Carpuject) 1 mg IVP Q2H PRN PRN Reason: Pain 8 to 10 Last Admin: 08/09/21 09:05 Dose: 1 mg Cefepime HCl 1 gm/ Sodium (Chloride) 100 mls @ 200 mls/hr IV TID [facility] Last Infusion: 08/09/21 06:39 Dose: Infused Metronidazole (Flagyl 500 Mg/100 Ml) 500 mg in 100 mls @ 100 mls/hr IV Q8H [facility] Last Infusion: 08/09/21 05:18 Dose: Infused Sodium Chloride (Normal Saline 0.9%) 1,000 mls @ 83.333 mls/hr IV .Q12H [facility] Last Admin: 08/09/21 10:01 Dose: 83.333 mls/hr Insulin Aspart (Insulin Aspart 300 Unit/3 Ml Pen) 1 - 9 unit SUBQ 0800,1200,1700,2100 [facility]; Protocol Last Admin: 08/09/21 09:04 Dose: Not Given Ketorolac Tromethamine (Ketorolac 30 Mg/Ml Vial) 30 mg IVP Q6HR PRN PRN Reason: PAIN Stop: 08/11/21 19:01 Last Admin: 08/09/21 06:03 Dose: 30 mg Nicotine (Nicotine 7 Mg Patch) 1 patch TOP DAILY [facility] Last Admin: 08/09/21 09:26 Dose: 1 patch Ondansetron HCl (Ondansetron 4 Mg/2 Ml Vial) 4 mg IVP Q6HR PRN PRN Reason: Nausea / Vomiting Last Admin: 08/09/21 09:05 Dose: 4 mg Polyethylene Glycol (Polyethylene Glycol 3350 17 Gm Packet) 17 gm PO DAILY [facility] Last Admin: 08/09/21 09:26 Dose: 17 gm Multivit/Folic Acid/Iron ( Vitamin Tablet) 1 tab PO DAILYWM [facility] Last Admin: 08/09/21 09:25 Dose: 1 tab Prochlorperazine Edisylate (Prochlorperazine 10 Mg/2 Ml Vial) 10 mg IVP Q6HR PRN PRN Reason: Nausea / Vomiting Last Admin: 08/08/21 21:50 Dose: 10 mg Sodium Chloride (Sodium Chloride Flush 0.9% 10 Ml Syringe) 10 ml IVP 0100,0900,1700 [facility] Last Admin: 08/09/21 09:26 Dose: 10 ml Sodium Chloride (Sodium Chloride Flush 0.9% 10 Ml Syringe) 10 ml IVP PRN PRN PRN Reason: NEEDED PER PROVIDER ORDERS Last Admin: 08/09/21 03:47 Dose: 10 ml Sodium Phosphate (Neutra-Phos 250 Mg Tablet) 250 mg PO TIDWM [facility] Last Admin: 08/09/21 09:25 Dose: 250 mg Thiamine HCl (Thiamine 100 Mg Tablet) 100 mg PO DAILY [facility] Last Admin: 08/09/21 09:25 Dose: 100 mg Acetaminophen [Tylenol] 650 mg PO Q6H PRN 08/07/21
--- NOTE | 2021-08-09 13:12 | PROVIDER PROGRESS NOTE ---
Subjective - General Admit Date: 08/06/21 - Review of Systems All Other Systems: positive: Reviewed and negative - Other Other Information/Narrative: Nancy reports she is feeling a little better today. "I am getting there". She is talking with her mom on the phone and is much brighter in her affect. She reports her abdomen is label fuser tender but significantly improved.She denies any nausea. Objective - Patient Data Reviewed Vital Signs: Yes Vital Signs: Vital Signs x48h Temp Pulse Resp BP Pulse Ox 08/09/21 08:10 37.1 C 110 H 16 119/69 96 08/09/21 05:27 37.1 C 94 18 152/81 H 100 Weight: Weight 08/07/21 08/08/21 08/09/21 23:59 23:59 23:59 Weight (kg) 77.5 kg 79 kg 79 kg Intake & Output: Intake and Output Totals x24h 08/07/21 08/08/21 08/09/21 23:59 23:59 23:59 Intake Total 5041 5985.333 841.666 Output Total 375 550 Balance 4666 5435.333 841.666 - Lab Results Lab Results: 08/09/21 04:50 08/09/21 04:50 Other Lab Results: Lab Results x24hrs 08/09/21 08/09/21 08/09/21 Range/Units 11:34 07:41 04:50 WBC (4.8-10.8) x10^3/uL RBC (4.20-5.40) 10^6/uL Hgb (12.0-16.0) g/dL Hct (37.0-47.0) % MCV (81.0-99.0) fL MCH (27.0-31.0) pg MCHC (32.0-36.0) g/dL RDW (12.0-15.0) % Plt Count (130-450) 10^3/uL MPV (7.9-10.8) fL Neut # (Auto) (1.5-6.6) 10^3/uL Lymph # (Auto) (1.5-3.5) 10^3/uL [place] # (Auto) (0.0-1.0) 10^3/uL Eos # (Auto) (0.0-0.7) 10^3/uL Baso # (Auto) (0.0-0.1) 10^3/uL Absolute Nucleated RBC x10^3/uL Nucleated RBC % /100WBC Sodium 130 L (135-145) mmol/L Potassium 3.0 L (3.5-5.0) mmol/L Chloride 96 L (101-111) mmol/L Carbon Dioxide 27 (21-32) mmol/L Anion Gap 7.0 (6-13) BUN 8 (6-20) mg/dL Creatinine 0.6 (0.4-1.0) mg/dL Estimated GFR (MDRD) 114 (>89) Glucose 116 H (70-100) mg/dL POC Whole Bld Glucose 101 H 103 H (70 - 100) mg/dL Calcium 7.5 L (8.5-10.3) mg/dL Phosphorus 2.4 L (2.5-4.6) mg/dL Magnesium 1.9 (1.7-2.8) mg/dL Total Bilirubin 0.8 (0.2-1.0) mg/dL Direct Bilirubin 0.3 (0.1-0.5) mg/dL AST 20 (10-42) IU/L ALT 14 (10-60) IU/L Alkaline Phosphatase 86 (42-121) IU/L C-Reactive Protein 28.3 H (0-1.0) mg/dL Total Protein 5.1 L (6.7-8.2) g/dL Albumin 2.2 L (3.2-5.5) g/dL Globulin 2.9 (2.1-4.2) g/dL Amylase 99 (28-100) U/L Lipase 97 H (22-51) U/L 08/09/21 08/08/21 08/08/21 Range/Units 04:50 20:29 16:32 WBC 10.9 H (4.8-10.8) x10^3/uL RBC 3.47 L (4.20-5.40) 10^6/uL Hgb 12.3 (12.0-16.0) g/dL Hct 36.9 L (37.0-47.0) % MCV 106.3 H (81.0-99.0) fL MCH 35.4 H (27.0-31.0) pg MCHC 33.3 (32.0-36.0) g/dL RDW 14.0 (12.0-15.0) % Plt Count 147 (130-450) 10^3/uL MPV 11.1 H (7.9-10.8) fL Neut # (Auto) 9.0 H (1.5-6.6) 10^3/uL Lymph # (Auto) 0.6 L (1.5-3.5) 10^3/uL [place] # (Auto) 1.2 H (0.0-1.0) 10^3/uL Eos # (Auto) 0.0 (0.0-0.7) 10^3/uL Baso # (Auto) 0.0 (0.0-0.1) 10^3/uL Absolute Nucleated RBC 0.00 x10^3/uL Nucleated RBC % 0.0 /100WBC Sodium (135-145) mmol/L Potassium (3.5-5.0) mmol/L Chloride (101-111) mmol/L Carbon Dioxide (21-32) mmol/L Anion Gap (6-13) BUN (6-20) mg/dL Creatinine (0.4-1.0) mg/dL Estimated GFR (MDRD) (>89) Glucose (70-100) mg/dL POC Whole Bld Glucose 106 H 91 (70 - 100) mg/dL Calcium (8.5-10.3) mg/dL Phosphorus (2.5-4.6) mg/dL Magnesium (1.7-2.8) mg/dL Total Bilirubin (0.2-1.0) mg/dL Direct Bilirubin (0.1-0.5) mg/dL AST (10-42) IU/L ALT (10-60) IU/L Alkaline Phosphatase (42-121) IU/L C-Reactive Protein (0-1.0) mg/dL Total Protein (6.7-8.2) g/dL Albumin (3.2-5.5) g/dL Globulin (2.1-4.2) g/dL Amylase (28-100) U/L Lipase (22-51) U/L - Current Medications Current Medications: Current Medications Generic Name Dose Route Start Last Admin Trade Name Freq PRN Reason Stop Dose Admin Acetaminophen 650 mg 08/06/21 07:23 08/08/21 12:49 Acetaminophen 325 Mg Tablet PO 650 mg Q4HR PRN Administration Pain 1 to 4 Enoxaparin Sodium 40 mg 08/06/21 09:00 08/09/21 09:26 Enoxaparin 40 Mg/0.4 Ml Syringe SUBQ 40 mg DAILY [facility] Administration Hydromorphone HCl 1 mg 08/06/21 07:52 08/09/21 11:37 Hydromorphone 1 Mg/Ml Carpuject IVP 1 mg Q2H PRN Administration Pain 8 to 10 Cefepime HCl 1 gm/ Sodium 100 mls @ 200 mls/hr 08/08/21 14:00 08/09/21 06:39 Chloride IV Infused TID [facility] Infusion Metronidazole 500 mg in 100 mls @ 100 mls/hr 08/08/21 12:00 08/09/21 12:19 Flagyl 500 Mg/100 Ml IV 100 mls/hr Q8H [facility] Administration Sodium Chloride 1,000 mls @ 83.333 mls/hr 08/09/21 10:00 08/09/21 12:19 Normal Saline 0.9% IV 0 mls/hr .Q12H [facility] Infusion Ketorolac Tromethamine 30 mg 08/06/21 19:02 08/09/21 12:26 Ketorolac 30 Mg/Ml Vial IVP 08/11/21 19:01 30 mg Q6HR PRN Administration PAIN Nicotine 1 patch 08/06/21 22:12 08/09/21 09:26 Nicotine 7 Mg Patch TOP 1 patch DAILY [facility] Administration Ondansetron HCl 4 mg 08/06/21 07:23 08/09/21 09:05 Ondansetron 4 Mg/2 Ml Vial IVP 4 mg Q6HR PRN Administration Nausea / Vomiting Polyethylene Glycol 17 gm 08/09/21 09:00 08/09/21 09:26 Polyethylene Glycol 3350 17 Gm Packet PO 17 gm DAILY [facility] Administration Multivit/Folic Acid/Iron 1 tab 08/07/21 08:00 08/09/21 09:25 Vitamin Tablet PO 1 tab DAILYWM [facility] Administration Prochlorperazine Edisylate 10 mg 08/06/21 07:23 08/08/21 21:50 Prochlorperazine 10 Mg/2 Ml Vial IVP 10 mg Q6HR PRN Administration Nausea / Vomiting Sodium Chloride 10 ml 08/06/21 09:00 08/09/21 09:26 Sodium Chloride Flush 0.9% 10 Ml Syringe IVP 10 ml 0100,0900,1700 [facility] Administration Sodium Chloride 10 ml 08/06/21 07:23 08/09/21 03:47 Sodium Chloride Flush 0.9% 10 Ml Syringe IVP 10 ml PRN PRN Administration NEEDED PER PROVIDER ORDERS Sodium Phosphate 250 mg 08/07/21 08:00 08/09/21 12:19 Neutra-Phos 250 Mg Tablet PO 250 mg TIDWM [facility] Administration Thiamine HCl 100 mg 08/08/21 09:00 08/09/21 09:25 Thiamine 100 Mg Tablet PO 100 mg DAILY [facility] Administration - Physical Exam General Appearance: positive: No acute distress, Alert Neck: positive: Nml inspection Respiratory: positive: No respiratory distress Abdomen: positive: Nml bowel sounds, Tenderness Neurologic/Psychiatric: positive: Oriented x3 ABX Reporting Has patient been on IV antibiotics over the past 48 hours?: Yes Impression/Plan - Problem List Problem List: Significantly improved at least clinically from yesterday. Review of her labs shows that her white count is essentially stable and there is been no increase in the bandemia it is holding at 9. I agree with all excellent care by the ospitalist service. Continue pain control, n.p.o., antibiotics, and watchful waiting.
[2021-08-10] MEDS: SODIUM CHLORIDE FLUSH 0.9% 10 ML SYRINGE IVP SCH ×4 (00:53→23:55)
[2021-08-10] MEDS: HYDROmorphone 1 MG/ML CARPUJECT IVP PRN ×8 (00:53→22:16)
[2021-08-10] MEDS: SODIUM CHLORIDE FLUSH 0.9% 10 ML SYRINGE IVP PRN ×6 (03:18→22:15)
[2021-08-10] MEDS: KETOROLAC 30 MG/ML VIAL IVP PRN ×4 (03:18→22:15)
[2021-08-10] MEDS: metroNIDAZOLE 500 MG/100 ML 500 MG/100 ML BAG IV SCH ×3 (03:23→21:07)
[2021-08-10 05:25] LABS: BASOPHILS % (AUTO) 0.4 %; EOSINOPHILS # (AUTO) 0.1 10^3/uL (0.0-0.7); EOSINOPHILS % (AUTO) 1.4 %; HCT - HEMATOCRIT 33.2 % (37.0-47.0); HGB - HEMOGLOBIN 10.9 g/dL (12.0-16.0); LYMPHOCYTES # (AUTO) 0.7 10^3/uL (1.5-3.5); LYMPHOCYTES % (AUTO) 9.1 %; MEAN CORPUSCULAR HEMOGLOBIN 34.6 pg (27.0-31.0); MEAN CORPUSCULAR HGB CONC 32.8 g/dL (32.0-36.0); MEAN CORPUSCULAR VOLUME 105.4 fL (81.0-99.0); MEAN PLATELET VOLUME 10.6 fL (7.9-10.8); MONOCYTES # (AUTO) 1.3 10^3/uL (0.0-1.0); MONOCYTES % (AUTO) 16.5 %; NEUTROPHILS # (AUTO) 5.7 10^3/uL (1.5-6.6); NEUTROPHILS % (AUTO) 72.1 %; PLT - PLATELET COUNT 170 10^3/uL (130-450); RED BLOOD COUNT 3.15 10^6/uL (4.20-5.40); RED CELL DISTRIBUTION WIDTH 14.1 % (12.0-15.0); WHITE BLOOD COUNT 7.9 x10^3/uL (4.8-10.8)
[2021-08-10] MEDS: CEFEPIME 1 GM in SODIUM CHLORIDE 0.9% MINIBAG 100 ML IV SCH ×3 (05:36→22:15)
[2021-08-10 05:52] LABS: BILIRUBIN,DIRECT 0.3 mg/dL (0.1-0.5); BILIRUBIN,TOTAL 0.8 mg/dL (0.2-1.0); CALCIUM 7.4 mg/dL (8.5-10.3); CREATININE 0.6 mg/dL (0.4-1.0); CRP - C-REACTIVE PROTEIN 28.9 mg/dL (0-1.0); MAGNESIUM 1.8 mg/dL (1.7-2.8); PHOSPHORUS 2.6 mg/dL (2.5-4.6); POTASSIUM 3.4 mmol/L (3.5-5.0); TOTAL PROTEIN 4.8 g/dL (6.7-8.2)
[2021-08-10] MEDS ORDERED: POTASSIUM CHLORIDE 20 MEQ TABLET PO ONE (07:13)
[2021-08-10] MEDS ORDERED: ALBUMIN 25% 12.5 GM/50 ML VIAL IV STA (07:20)
[2021-08-10 07:41] LABS: ABSOLUTE RETICS # AUTO 0.08 10^6/uL (0.020-0.110); RED BLOOD COUNT 3.15 10^6/uL (4.20-5.40); RETICULOCYTE COUNT % (AUTO) 2.55 % (0.5-2.3)
[2021-08-10] MEDS: PANTOPRAZOLE 40 MG TABLET PO SCH (07:50)
[2021-08-10] MEDS: PRENATAL VITAMIN TABLET PO SCH (07:50)
[2021-08-10] MEDS: THIAMINE 100 MG TABLET PO SCH (07:50)
[2021-08-10] MEDS: ENOXAPARIN 40 MG/0.4 ML SYRINGE SUBQ SCH (07:50)
[2021-08-10] MEDS: NEUTRA-PHOS 250 MG TABLET PO SCH ×3 (07:50→16:36)
[2021-08-10] MEDS: polyethylene glycoL 3350 17 GM PACKET PO SCH (07:51)
[2021-08-10] MEDS: NICOTINE 7 MG PATCH TOP SCH (07:51)
[2021-08-10] MEDS: ONDANSETRON 4 MG/2 ML VIAL IVP PRN ×3 (07:57→21:06)
[2021-08-10 08:19] LABS: % IRON SATURATION 8 % (20-50); IRON 9 ug/dL (28-170); TOTAL IRON BINDING CAPACITY 112 ug/dL (250-450); TRANSFERRIN 80 mg/dL (192-382)
--- NOTE | 2021-08-10 08:22 | PROVIDER PROGRESS NOTE ---
Subjective - General Admit Date: 08/06/21 - Review of Systems All Other Systems: positive: Reviewed and negative - Other Other Information/Narrative: 35F with acute pancreatitis Feeling slowly improved. Pain is now a 9-10 compared to a 15 before. Tolerating jello and juices. Had a BM this AM, incontinent in bed. Ambulating. Objective - Patient Data Reviewed Vital Signs: Yes Vital Signs: Vital Signs x48h Temp Pulse Resp BP Pulse Ox 08/10/21 07:45 36.7 C 100 18 115/76 98 08/10/21 03:41 37.1 C 110 H 16 107/71 98 08/10/21 01:00 36.8 C 110 H 20 112/83 H 96 Weight: Weight 08/08/21 08/09/21 08/10/21 23:59 23:59 23:59 Weight (kg) 79 kg 79 kg 87.7 kg Intake & Output: Intake and Output Totals x24h 08/08/21 08/09/21 08/10/21 23:59 23:59 23:59 Intake Total 5985.333 3506.052 925 Output Total 550 475 150 Balance 5435.333 3031.052 775 - Lab Results Lab Results: 08/10/21 05:06 08/10/21 05:06 Other Lab Results: Lab Results x24hrs 08/10/21 08/10/21 08/10/21 Range/Units 05:08 05:08 05:06 WBC (4.8-10.8) x10^3/uL RBC 3.15 L (4.20-5.40) 10^6/uL Hgb (12.0-16.0) g/dL Hct (37.0-47.0) % MCV (81.0-99.0) fL MCH (27.0-31.0) pg MCHC (32.0-36.0) g/dL RDW (12.0-15.0) % Plt Count (130-450) 10^3/uL MPV (7.9-10.8) fL Reticulocyte % (Auto) 2.55 H (0.5-2.3) % Neut # (Auto) (1.5-6.6) 10^3/uL Lymph # (Auto) (1.5-3.5) 10^3/uL [place] # (Auto) (0.0-1.0) 10^3/uL Eos # (Auto) (0.0-0.7) 10^3/uL Baso # (Auto) (0.0-0.1) 10^3/uL Absolute Nucleated RBC x10^3/uL Nucleated RBC % /100WBC Absolute Retic 0.080 (0.020-0.110) 10^6/uL Sodium (135-145) mmol/L Potassium (3.5-5.0) mmol/L Chloride (101-111) mmol/L Carbon Dioxide (21-32) mmol/L Anion Gap (6-13) BUN (6-20) mg/dL Creatinine (0.4-1.0) mg/dL Estimated GFR (MDRD) (>89) Glucose (70-100) mg/dL POC Whole Bld Glucose (70 - 100) mg/dL Calcium (8.5-10.3) mg/dL Phosphorus (2.5-4.6) mg/dL Magnesium (1.7-2.8) mg/dL Iron 9 L (28-170) ug/dL TIBC 112 L (250-450) ug/dL % Saturation 8 L (20-50) % Transferrin 80 L (192-382) mg/dL Total Bilirubin (0.2-1.0) mg/dL Direct Bilirubin (0.1-0.5) mg/dL AST (10-42) IU/L ALT (10-60) IU/L Alkaline Phosphatase (42-121) IU/L C-Reactive Protein (0-1.0) mg/dL Total Protein (6.7-8.2) g/dL Albumin (3.2-5.5) g/dL Globulin (2.1-4.2) g/dL Lipase 54 H (22-51) U/L 08/10/21 08/10/21 08/09/21 Range/Units 05:06 05:06 11:34 WBC 7.9 (4.8-10.8) x10^3/uL RBC 3.15 L (4.20-5.40) 10^6/uL Hgb 10.9 L (12.0-16.0) g/dL Hct 33.2 L (37.0-47.0) % MCV 105.4 H (81.0-99.0) fL MCH 34.6 H (27.0-31.0) pg MCHC 32.8 (32.0-36.0) g/dL RDW 14.1 (12.0-15.0) % Plt Count 170 (130-450) 10^3/uL MPV 10.6 (7.9-10.8) fL Reticulocyte % (Auto) (0.5-2.3) % Neut # (Auto) 5.7 (1.5-6.6) 10^3/uL Lymph # (Auto) 0.7 L (1.5-3.5) 10^3/uL [place] # (Auto) 1.3 H (0.0-1.0) 10^3/uL Eos # (Auto) 0.1 (0.0-0.7) 10^3/uL Baso # (Auto) 0.0 (0.0-0.1) 10^3/uL Absolute Nucleated RBC 0.00 x10^3/uL Nucleated RBC % 0.0 /100WBC Absolute Retic (0.020-0.110) 10^6/uL Sodium 130 L (135-145) mmol/L Potassium 3.4 L (3.5-5.0) mmol/L Chloride 98 L (101-111) mmol/L Carbon Dioxide 26 (21-32) mmol/L Anion Gap 6.0 (6-13) BUN 8 (6-20) mg/dL Creatinine 0.6 (0.4-1.0) mg/dL Estimated GFR (MDRD) 114 (>89) Glucose 100 (70-100) mg/dL POC Whole Bld Glucose 101 H (70 - 100) mg/dL Calcium 7.4 L (8.5-10.3) mg/dL Phosphorus 2.6 (2.5-4.6) mg/dL Magnesium 1.8 (1.7-2.8) mg/dL Iron (28-170) ug/dL TIBC (250-450) ug/dL % Saturation (20-50) % Transferrin (192-382) mg/dL Total Bilirubin 0.8 (0.2-1.0) mg/dL Direct Bilirubin 0.3 (0.1-0.5) mg/dL AST 16 (10-42) IU/L ALT 12 (10-60) IU/L Alkaline Phosphatase 99 (42-121) IU/L C-Reactive Protein 28.9 H (0-1.0) mg/dL Total Protein 4.8 L (6.7-8.2) g/dL Albumin 2.0 L (3.2-5.5) g/dL Globulin 2.9 (2.1-4.2) g/dL Lipase (22-51) U/L - Current Medications Current Medications: Current Medications Generic Name Dose Route Start Last Admin Trade Name Freq PRN Reason Stop Dose Admin Acetaminophen 650 mg 08/06/21 07:23 08/08/21 12:49 Acetaminophen 325 Mg Tablet PO 650 mg Q4HR PRN Administration Pain 1 to 4 Enoxaparin Sodium 40 mg 08/06/21 09:00 08/10/21 07:50 Enoxaparin 40 Mg/0.4 Ml Syringe SUBQ 40 mg DAILY LUCY Administration Hydromorphone HCl 1 mg 08/06/21 07:52 08/10/21 07:47 Hydromorphone 1 Mg/Ml Carpuject IVP 1 mg Q2H PRN Administration Pain 8 to 10 Cefepime HCl 1 gm/ Sodium 100 mls @ 200 mls/hr 08/08/21 14:00 08/10/21 06:06 Chloride IV Infused TID LUCY Infusion Metronidazole 500 mg in 100 mls @ 100 mls/hr 08/08/21 12:00 08/10/21 05:37 Flagyl 500 Mg/100 Ml IV Infused Q8H LUCY Infusion Ketorolac Tromethamine 30 mg 08/06/21 19:02 08/10/21 03:18 Ketorolac 30 Mg/Ml Vial IVP 08/11/21 19:01 30 mg Q6HR PRN Administration PAIN Nicotine 1 patch 08/06/21 22:12 08/10/21 07:51 Nicotine 7 Mg Patch TOP 1 patch DAILY LUCY Administration Ondansetron HCl 4 mg 08/06/21 07:23 08/10/21 07:57 Ondansetron 4 Mg/2 Ml Vial IVP 4 mg Q6HR PRN Administration Nausea / Vomiting Pantoprazole Sodium 40 mg 08/10/21 08:00 08/10/21 07:50 Pantoprazole 40 Mg Tablet PO 40 mg QDAC LUCY Administration Polyethylene Glycol 17 gm 08/09/21 09:00 08/10/21 07:51 Polyethylene Glycol 3350 17 Gm Packet PO Not Given DAILY LUCY Multivit/Folic Acid/Iron 1 tab 08/07/21 08:00 08/10/21 07:50 Vitamin Tablet PO 1 tab DAILYWM LUCY Administration Prochlorperazine Edisylate 10 mg 08/06/21 07:23 08/08/21 21:50 Prochlorperazine 10 Mg/2 Ml Vial IVP 10 mg Q6HR PRN Administration Nausea / Vomiting Sodium Chloride 10 ml 08/06/21 09:00 08/10/21 05:36 Sodium Chloride Flush 0.9% 10 Ml Syringe IVP 10 ml 0100,0900,1700 LUCY Administration Sodium Chloride 10 ml 08/06/21 07:23 08/10/21 03:18 Sodium Chloride Flush 0.9% 10 Ml Syringe IVP 10 ml PRN PRN Administration NEEDED PER PROVIDER ORDERS Sodium Phosphate 250 mg 08/07/21 08:00 08/10/21 07:50 Neutra-Phos 250 Mg Tablet PO 250 mg TIDWM LUCY Administration Thiamine HCl 100 mg 08/08/21 09:00 08/10/21 07:50 Thiamine 100 Mg Tablet PO 100 mg DAILY LUCY Administration - Physical Exam General Appearance: positive: No acute distress ENT: positive: ENT inspection nml Respiratory: positive: No respiratory distress Cardiovascular: positive: Regular rate & rhythm Abdomen: positive: Other (Soft, distended, moderate tenderness to palpation on left greater than right, no rebound or guarding, no scars) Extremities: positive: Other (Anasarca) Impression/Plan - Problem List Problem List: Acute pancreatitis: Pain slowly improving. Continue pain control, and needs i mproved nutrition. Since tolerating jello and liquids would add protein shakes and advance slowly as tolerated. Encourage ambulation, add IS. Please check coag labs. Course of antibiotics for empiric tx of SBP (can switch to PO prior to DC). Consider a dose of lasix for anasarca and pleural effusions. Patient will need referral to GI as outpatient for her recurrent pancreatitis. Franko Collazo MD
[2021-08-10 08:44] LABS: FERRITIN 476.8 ng/mL (11.0-306.8)
[2021-08-10] MEDS: FERROUS GLUCONATE 324 MG TABLET PO SCH (09:14)
--- NOTE | 2021-08-10 10:48 | PROVIDER PROGRESS NOTE ---
Assessment/Plan - Problem List (1) Pancreatitis Qualifiers: Chronicity: acute Pancreatitis type: unspecified pancreatitis type Assessment/Plan: 08/09 improved. Lipase is down to 54. WBS is down to normal arrange. CRP is stable but still elevated. pt report her abdominal pain is slight reduced but still has significant pain. pt feel hungry. will advance her diet as tolerated, consult with pedigree researcher, continue pain control, encourage pt ambulation safely. continue antibiotics prevention of SBP, continue lab monitor Thank Surgeon's consult 08/09 pt report her abdominal pain is slight reduced and better controlled. she feel better. pt had slight elevated WBC, still elevated CRP but she had no fever. Lipase is down to 97 close to normal on today. we will continue antibiotics, continue pain control, gently IVF, antiemesis PRN surgeon was consulted for pt, Thank surgeon. 08/08 pt report she persistent abdominal pain, and she has dark urine, Although pt's lipase is down to 200 range from 1400 at admission. order CRP and it elevated to 21. Repeat CT show persistent hypoenhancing areas in the uncinate process which reflect developing pseudocysts or necrosis. consult with surgeon, she recommend we start with antibiotics because pt's WBC left shift to prevention of infection of pancreatic necrosis. we will continue closely vital monitor to Q4H, lab monitor, pain control, slight reduce IVF dosage because pt develop pleural effusion, continue with clear diet 08/07 pt recognize it is her alcohol caused her acute pancreatitis as her hx. Also pt had elevated AST comparing ALT. CT of abdomen reveal acute pancreatitis. his lipase is reduced after treated overnight. but pt still report she had significant abdominal pain. right upper quadrant ultrasound reveals there is no evidence of gallstones. triglycerides is normal arrange. we will continue bowel rest, IVF, continue lab monitor, pain control, Antiemesis as needed. Up-to-date of pt's medical conditions to patient's mother, answered her questions and concerns. (2) Hypokalemia 08/09 potassium is still low, will replace. pt has hx of hypokalemia, continue lab monitor 08/08 K is 3.1, replace and lab monitor resolved (3) Alcohol abuse Conclusion/Plan: 08/10 we will check PT/INR. pt clearly state she will quit alcohol. clinic pt still does not show alcohol withdrawal symptoms as far. pt do not present alcohol withdrawal symptoms now. It is likely the cause to have her acute pancreatitis. we will continue vitamin B1, add . pt clearly state she will quit alcohol (4) Hyperglycemia resolved. A1C is 5.2 (5) COVID-19 Conclusion/Plan: stable, pt is asymptomatic. She tested positive for COVID-19 on the admission PCR but she reports infection last month. CT the abdomen pelvis showed no lung pathology. (6)pleural effusion 08/10 pt does not present clinically respiratory distress, she had 98% O2 sat on room air. CT show pt develop small to moderate bilateral Pleural effusion. Patient has no respiratory distress, Patient had 95% on room air. We will reduce IV fluids, advise pt out of bed, vital monitor closely (7)ascites pt present mild abdominal distension, CT of abdomen show increased intro- abdominal ascites. pt feel fullness of her abdomen. pt has hx of Alcoholic abuse . Albumin is 2.0. We will check coagulation study with PT and INR, We will give dosage of albumin, once Lasix. - Current Meds Current Meds: Current Medications Generic Name Dose Route Start Last Admin Trade Name Freq PRN Reason Stop Dose Admin Acetaminophen 650 mg 08/06/21 07:23 08/08/21 12:49 Acetaminophen 325 Mg Tablet PO 650 mg Q4HR PRN Administration Pain 1 to 4 Enoxaparin Sodium 40 mg 08/06/21 09:00 08/10/21 07:50 Enoxaparin 40 Mg/0.4 Ml Syringe SUBQ 40 mg DAILY LUCY Administration Ferrous Gluconate 324 mg 08/10/21 09:00 08/10/21 09:14 Ferrous Gluconate 324 Mg Tablet PO 324 mg DAILYWM LUCY Administration Hydromorphone HCl 1 mg 08/06/21 07:52 08/10/21 07:47 Hydromorphone 1 Mg/Ml Carpuject IVP 1 mg Q2H PRN Administration Pain 8 to 10 Cefepime HCl 1 gm/ Sodium 100 mls @ 200 mls/hr 08/08/21 14:00 08/10/21 06:06 Chloride IV Infused TID LUCY Infusion Metronidazole 500 mg in 100 mls @ 100 mls/hr 08/08/21 12:00 08/10/21 05:37 Flagyl 500 Mg/100 Ml IV Infused Q8H LUCY Infusion Ketorolac Tromethamine 30 mg 08/06/21 19:02 08/10/21 10:05 Ketorolac 30 Mg/Ml Vial IVP 08/11/21 19:01 30 mg Q6HR PRN Administration PAIN Nicotine 1 patch 08/06/21 22:12 08/10/21 07:51 Nicotine 7 Mg Patch TOP 1 patch DAILY LUCY Administration Ondansetron HCl 4 mg 08/06/21 07:23 08/10/21 07:57 Ondansetron 4 Mg/2 Ml Vial IVP 4 mg Q6HR PRN Administration Nausea / Vomiting Pantoprazole Sodium 40 mg 08/10/21 08:00 08/10/21 07:50 Pantoprazole 40 Mg Tablet PO 40 mg QDAC LUCY Administration Polyethylene Glycol 17 gm 08/09/21 09:00 08/10/21 07:51 Polyethylene Glycol 3350 17 Gm Packet PO Not Given DAILY LUCY Multivit/Folic Acid/Iron 1 tab 08/07/21 08:00 08/10/21 07:50 Vitamin Tablet PO 1 tab DAILYWM LUCY Administration Prochlorperazine Edisylate 10 mg 08/06/21 07:23 08/08/21 21:50 Prochlorperazine 10 Mg/2 Ml Vial IVP 10 mg Q6HR PRN Administration Nausea / Vomiting Sodium Chloride 10 ml 08/06/21 09:00 08/10/21 05:36 Sodium Chloride Flush 0.9% 10 Ml Syringe IVP 10 ml 0100,0900,1700 LUCY Administration Sodium Chloride 10 ml 08/06/21 07:23 08/10/21 10:05 Sodium Chloride Flush 0.9% 10 Ml Syringe IVP 10 ml PRN PRN Administration NEEDED PER PROVIDER ORDERS Sodium Phosphate 250 mg 08/07/21 08:00 08/10/21 07:50 Neutra-Phos 250 Mg Tablet PO 250 mg TIDWM LUCY Administration Thiamine HCl 100 mg 08/08/21 09:00 08/10/21 07:50 Thiamine 100 Mg Tablet PO 100 mg DAILY LUCY Administration - Lab Result Fish Bone Diagrams: 08/10/21 05:06 08/10/21 05:06 - Additional Planning My Orders: My Active Orders 08/09/21 17:50 Blood Culture [CULTURE, BLOOD #1] [RM] Urgent 08/09/21 18:03 Blood Culture [CULTURE, BLOOD #2] [RM] Urgent 08/10/21 FECAL OCCULT BLOOD (FIT) Urgent 08/10/21 08:00 Pantoprazole [Protonix] 40 mg PO QDAC 08/10/21 09:00 Ferrous Gluconate [Fergon] 324 mg PO DAILYWM 08/10/21 09:57 Incentive Spirometry - RT [RC] TID 08/10/21 10:41 PT WITH INR [COAG] Urgent 08/10/21 10:46 Nutrition Consult [CONS] Routine 08/10/21 11:00 FUROSEMIDE INJ 20mg VIAL [LASIX INJ 20mg VIAL] 20 mg IVP ONCE 08/10/21 Lunch Full Liquid Diet [DIET] 08/11/21 05:00 CRP - C-REACTIVE PROTEIN [CHEM] DAILYLAB LIPASE [CHEM] DAILYLAB 08/12/21 05:00 CRP - C-REACTIVE PROTEIN [CHEM] DAILYLAB 08/13/21 05:00 CRP - C-REACTIVE PROTEIN [CHEM] DAILYLAB Subjective - Subjective Patient Reports: Resting Comfortably Objective Vital Signs: Vital Signs - 24 hr 08/09/21 08/09/21 08/09/21 13:00 13:20 15:32 Temperature 38.2 C H 37.5 C 36.8 C Heart Rate [ 114 H 102 H Brachial] Respiratory 18 20 Rate Blood Pressure 112/65 113/69 [Left Brachial artery] O2 Saturation 95 96 08/09/21 08/10/21 08/10/21 20:19 01:00 03:41 Temperature 37.8 C 36.8 C 37.1 C Heart Rate [ 111 H 110 H 110 H Brachial] Respiratory 20 20 16 Rate Blood Pressure 108/54 L 112/83 H 107/71 [Left Brachial artery] O2 Saturation 93 96 98 08/10/21 07:45 Temperature 36.7 C Heart Rate [ 100 Brachial] Respiratory 18 Rate Blood Pressure 115/76 [Left Brachial artery] O2 Saturation 98 Oxygen O2 Source Room air I&O (Last 24 Hrs): Intake and Output Totals x24h 08/08/21 08/09/21 08/10/21 23:59 23:59 23:59 Intake Total 5985.333 3506.052 1215 Output Total 550 475 225 Balance 5435.333 3031.052 990 General: Alert, Oriented x3, Cooperative, No acute distress HEENT: Atraumatic Neck: Supple Lymphatic: no adenopathy Neuro: Alert, Non Focal, Oriented Times 3 Cardiovascular: Regular rate, Normal S1, Normal S2 Respiratory: Chest non-tender, No respiratory distress Abdomen: Normal bowel sounds, Soft, No tenderness Extremities: Normal pulses - Results Results: Laboratory Results WBC 7.9 x10^3/uL (4.8-10.8) 08/10/21 05:06 RBC 3.15 10^6/uL (4.20-5.40) L 08/10/21 05:08 Hgb 10.9 g/dL (12.0-16.0) L 08/10/21 05:06 Hct 33.2 % (37.0-47.0) L 08/10/21 05:06 MCV 105.4 fL (81.0-99.0) H 08/10/21 05:06 MCH 34.6 pg (27.0-31.0) H 08/10/21 05:06 MCHC 32.8 g/dL (32.0-36.0) 08/10/21 05:06 RDW 14.1 % (12.0-15.0) 08/10/21 05:06 Plt Count 170 10^3/uL (130-450) 08/10/21 05:06 MPV 10.6 fL (7.9-10.8) 08/10/21 05:06 Reticulocyte % (Auto) 2.55 % (0.5-2.3) H 08/10/21 05:08 Neut # (Auto) 5.7 10^3/uL (1.5-6.6) 08/10/21 05:06 Lymph # (Auto) 0.7 10^3/uL (1.5-3.5) L 08/10/21 05:06 [place] # (Auto) 1.3 10^3/uL (0.0-1.0) H 08/10/21 05:06 Eos # (Auto) 0.1 10^3/uL (0.0-0.7) 08/10/21 05:06 Baso # (Auto) 0.0 10^3/uL (0.0-0.1) 08/10/21 05:06 Absolute Nucleated RBC 0.00 x10^3/uL 08/10/21 05:06 Total Counted 100 08/07/21 04:48 Band Neuts % (Manual) 1 % (0-10) 08/07/21 04:48 Abnorm Lymph % (Manual) 0 % 08/07/21 04:48 Nucleated RBC % 0.0 /100WBC 08/10/21 05:06 Neutrophils # (Manual) 7.9 10^3/uL (1.5-6.6) H 08/07/21 04:48 Lymphocytes # (Manual) 0.6 10^3/uL (1.5-3.5) L 08/07/21 04:48 Monocytes # (Manual) 0.5 10^3/uL (0.0-1.0) 08/07/21 04:48 Eosinophils # (Manual) 0.0 10^3/uL (0-0.7) 08/07/21 04:48 Basophils # (Manual) 0.0 10^3/uL (0-0.1) 08/07/21 04:48 Differential Comment MANUAL DIFFERENTIAL 08/07/21 04:48 WBC Morphology NORMAL APPEARANCE (NORMAL) 08/07/21 04:48 Platelet Estimate NORMAL (130-450,000) (NORMAL) 08/07/21 04:48 Platelet Morphology NORMAL APPEARANCE (NORMAL) 08/07/21 04:48 RBC Morph Micro Appear NORMAL APPEARANCE (NORMAL) 08/07/21 04:48 ESR 8 mm/Hr (0-20) 08/08/21 08:28 Absolute Retic 0.080 10^6/uL (0.020-0.110) 08/10/21 05:08 Sodium 130 mmol/L (135-145) L 08/10/21 05:06 Potassium 3.4 mmol/L (3.5-5.0) L 08/10/21 05:06 Chloride 98 mmol/L (101-111) L 08/10/21 05:06 Carbon Dioxide 26 mmol/L (21-32) 08/10/21 05:06 Anion Gap 6.0 (6-13) 08/10/21 05:06 BUN 8 mg/dL (6-20) 08/10/21 05:06 Creatinine 0.6 mg/dL (0.4-1.0) 08/10/21 05:06 Estimated GFR (MDRD) 114 (>89) 08/10/21 05:06 Glucose 100 mg/dL (70-100) 08/10/21 05:06 POC Whole Bld Glucose 101 mg/dL (70 - 100) H 08/09/21 11:34 Estimat Average Glucose 103 mg/dL (70-100) H 08/06/21 06:00 Hemoglobin A1c % 5.2 % (4.27-6.07) 08/06/21 06:00 Calcium 7.4 mg/dL (8.5-10.3) L 08/10/21 05:06 Phosphorus 2.6 mg/dL (2.5-4.6) 08/10/21 05:06 Magnesium 1.8 mg/dL (1.7-2.8) 08/10/21 05:06 Iron 9 ug/dL (28-170) L 08/10/21 05:08 TIBC 112 ug/dL (250-450) L 08/10/21 05:08 % Saturation 8 % (20-50) L 08/10/21 05:08 Transferrin 80 mg/dL (192-382) L 08/10/21 05:08 Ferritin 476.8 ng/mL (11.0-306.8) H 08/10/21 05:08 Total Bilirubin 0.8 mg/dL (0.2-1.0) 08/10/21 05:06 Direct Bilirubin 0.3 mg/dL (0.1-0.5) 08/10/21 05:06 AST 16 IU/L (10-42) 08/10/21 05:06 ALT 12 IU/L (10-60) 08/10/21 05:06 Alkaline Phosphatase 99 IU/L (42-121) 08/10/21 05:06 Lactate Dehydrogenase 159 IU/L (91-225) 08/10/21 05:08 C-Reactive Protein 28.9 mg/dL (0-1.0) H 08/10/21 05:06 Total Protein 4.8 g/dL (6.7-8.2) L 08/10/21 05:06 Albumin 2.0 g/dL (3.2-5.5) L 08/10/21 05:06 Globulin 2.9 g/dL (2.1-4.2) 08/10/21 05:06 Albumin/Globulin Ratio 1.2 (1.0-2.2) 08/06/21 06:00 Triglycerides 67 mg/dL (-149) 08/06/21 06:00 Cholesterol 207 mg/dL (-199) H 08/06/21 06:00 LDL Cholesterol, Calc 76 mg/dL (-129) 08/06/21 06:00 VLDL Cholesterol 13 mg/dL 08/06/21 06:00 HDL Cholesterol 118 mg/dL (60-) 08/06/21 06:00 LDL/HDL Ratio 0.6 (<4.4) 08/06/21 06:00 Cholesterol/HDL Ratio 1.8 (<4.4) 08/06/21 06:00 Amylase 99 U/L (28-100) 08/09/21 04:50 Lipase 54 U/L (22-51) H 08/10/21 05:06 Vitamin B12 1149 pg/mL (180-914) H 08/10/21 05:08 Folate 8.31 ng/mL (5.90 - >24.8) 08/07/21 04:48 Urine Color YELLOW 08/06/21 06:00 Urine Clarity CLEAR (CLEAR) 08/06/21 06:00 Urine pH 5.5 PH (5.0-7.5) 08/06/21 06:00 Ur Specific [place] 1.025 (1.002-1.030) 08/06/21 06:00 Urine Protein NEGATIVE mg/dL (NEGATIVE) 08/06/21 06:00 Urine Glucose (UA) 500 mg/dL (NEGATIVE) H 08/06/21 06:00 Urine Ketones 15 mg/dL (NEGATIVE) H 08/06/21 06:00 Urine Occult Blood NEGATIVE (NEGATIVE) 08/06/21 06:00 Urine Nitrite NEGATIVE (NEGATIVE) 08/06/21 06:00 Urine Bilirubin NEGATIVE (NEGATIVE) 08/06/21 06:00 Urine Urobilinogen 0.2 (NORMAL) E.U./dL (NORMAL) 08/06/21 06:00 Ur Leukocyte Esterase TRACE (NEGATIVE) H 08/06/21 06:00 Urine RBC None Seen /HPF (0-5) 08/06/21 06:00 Urine WBC 0-3 /HPF (0-5) 08/06/21 06:00 Ur Squamous Epith Cells MOD Squamous (<= Few) H 08/06/21 06:00 Urine Bacteria Rare /HPF (None Seen) 08/06/21 06:00 Ur Microscopic Review INDICATED 08/06/21 06:00 Urine Culture Comments NOT INDICATED 08/06/21 06:00 Urine HCG, Qual NEGATIVE 08/06/21 06:00 Nasal Adenovirus (PCR) NOT DETECTED 08/06/21 07:30 Nasal B. parapertussis DNA (PCR) NOT DETECTED 08/06/21 07:30 Nasal Coronavir 229E PCR NOT DETECTED 08/06/21 07:30 Nasal Coronavir HKU1 PCR NOT DETECTED 08/06/21 07:30 Nasal Coronavir NL63 PCR NOT DETECTED 08/06/21 07:30 Nasal Coronavir OC43 PCR NOT DETECTED 08/06/21 07:30 Nasal Enterovir/Rhinovir PCR NOT DETECTED 08/06/21 07:30 Nasal Influenza B PCR NOT DETECTED 08/06/21 07:30 Nasal Influenza A PCR NOT DETECTED 08/06/21 07:30 Nasal Parainfluen 1 PCR NOT DETECTED 08/06/21 07:30 Nasal Parainfluen 2 PCR NOT DETECTED 08/06/21 07:30 Nasal Parainfluen 3 PCR NOT DETECTED 08/06/21 07:30 Nasal Parainfluen 4 PCR NOT DETECTED 08/06/21 07:30 Nasal RSV (PCR) NOT DETECTED 08/06/21 07:30 Nasal Screen MRSA (PCR) NEGATIVE (NEGATIVE) 08/06/21 09:00 Nasal B.pertussis DNA PCR NOT DETECTED 08/06/21 07:30 Nasal C.pneumoniae (PCR) NOT DETECTED 08/06/21 07:30 [place] Human Metapneumo PCR NOT DETECTED 08/06/21 07:30 Nasal M.pneumoniae (PCR) NOT DETECTED 08/06/21 07:30 Nasal SARS-CoV-2 (PCR) DETECTED A 08/06/21 07:30 - Procedures Procedures: Procedures MANUAL ASSIST DELIV NEC (11/14/14) ABX Reporting Has patient been on IV antibiotics over the past 48 hours?: Yes Current Medications - Current Medications Current Medications: Active Medications Acetaminophen (Acetaminophen 325 Mg Tablet) 650 mg PO Q4HR PRN PRN Reason: Pain 1 to 4 Last Admin: 08/08/21 12:49 Dose: 650 mg Enoxaparin Sodium (Enoxaparin 40 Mg/0.4 Ml Syringe) 40 mg SUBQ DAILY LUCY Last Admin: 08/10/21 07:50 Dose: 40 mg Ferrous Gluconate (Ferrous Gluconate 324 Mg Tablet) 324 mg PO DAILYWM [facility] Last Admin: 08/10/21 09:14 Dose: 324 mg Hydromorphone HCl (Hydromorphone 1 Mg/Ml Carpuject) 1 mg IVP Q2H PRN PRN Reason: Pain 8 to 10 Last Admin: 08/10/21 07:47 Dose: 1 mg Cefepime HCl 1 gm/ Sodium (Chloride) 100 mls @ 200 mls/hr IV TID [facility] Last Infusion: 08/10/21 06:06 Dose: Infused Metronidazole (Flagyl 500 Mg/100 Ml) 500 mg in 100 mls @ 100 mls/hr IV Q8H [facility] Last Infusion: 08/10/21 05:37 Dose: Infused Ketorolac Tromethamine (Ketorolac 30 Mg/Ml Vial) 30 mg IVP Q6HR PRN PRN Reason: PAIN Stop: 08/11/21 19:01 Last Admin: 08/10/21 10:05 Dose: 30 mg Nicotine (Nicotine 7 Mg Patch) 1 patch TOP DAILY [facility] Last Admin: 08/10/21 07:51 Dose: 1 patch Ondansetron HCl (Ondansetron 4 Mg/2 Ml Vial) 4 mg IVP Q6HR PRN PRN Reason: Nausea / Vomiting Last Admin: 08/10/21 07:57 Dose: 4 mg Pantoprazole Sodium (Pantoprazole 40 Mg Tablet) 40 mg PO QDAC [facility] Last Admin: 08/10/21 07:50 Dose: 40 mg Polyethylene Glycol (Polyethylene Glycol 3350 17 Gm Packet) 17 gm PO DAILY [facility] Last Admin: 08/10/21 07:51 Dose: Not Given Multivit/Folic Acid/Iron ( Vitamin Tablet) 1 tab PO DAILYWM [facility] Last Admin: 08/10/21 07:50 Dose: 1 tab Prochlorperazine Edisylate (Prochlorperazine 10 Mg/2 Ml Vial) 10 mg IVP Q6HR PRN PRN Reason: Nausea / Vomiting Last Admin: 08/08/21 21:50 Dose: 10 mg Sodium Chloride (Sodium Chloride Flush 0.9% 10 Ml Syringe) 10 ml IVP 0100,0900,1700 [facility] Last Admin: 08/10/21 05:36 Dose: 10 ml Sodium Chloride (Sodium Chloride Flush 0.9% 10 Ml Syringe) 10 ml IVP PRN PRN PRN Reason: NEEDED PER PROVIDER ORDERS Last Admin: 08/10/21 10:05 Dose: 10 ml Sodium Phosphate (Neutra-Phos 250 Mg Tablet) 250 mg PO TIDWM [facility] Last Admin: 08/10/21 07:50 Dose: 250 mg Thiamine HCl (Thiamine 100 Mg Tablet) 100 mg PO DAILY [facility] Last Admin: 08/10/21 07:50 Dose: 100 mg Acetaminophen [Tylenol] 650 mg PO Q6H PRN 08/07/21
[2021-08-10] MEDS ORDERED: FUROSEMIDE 20 MG/2 ML VIAL IVP ONE (11:00)
[2021-08-10 11:17] LABS: INR 1.3 (0.8-1.2); PT - PROTHROMBIN TIME 14.5 secs (9.9-12.6)
[2021-08-10 11:19] LABS: FECAL OCCULT BLOOD (FIT) NEGATIVE (NEGATIVE)
[2021-08-11] MEDS: HYDROmorphone 1 MG/ML CARPUJECT IVP PRN ×4 (01:16→23:38)
[2021-08-11] MEDS: metroNIDAZOLE 500 MG/100 ML 500 MG/100 ML BAG IV SCH ×3 (04:29→19:25)
[2021-08-11] MEDS: KETOROLAC 30 MG/ML VIAL IVP PRN ×3 (05:45→17:52)
[2021-08-11] MEDS: CEFEPIME 1 GM in SODIUM CHLORIDE 0.9% MINIBAG 100 ML IV SCH ×3 (05:48→20:23)
[2021-08-11] MEDS: PANTOPRAZOLE 40 MG TABLET PO SCH (06:10)
[2021-08-11 06:20] LABS: BASOPHILS % (AUTO) 0.4 %; EOSINOPHILS # (AUTO) 0.2 10^3/uL (0.0-0.7); EOSINOPHILS % (AUTO) 3.1 %; HCT - HEMATOCRIT 32.5 % (37.0-47.0); HGB - HEMOGLOBIN 10.8 g/dL (12.0-16.0); LYMPHOCYTES # (AUTO) 0.9 10^3/uL (1.5-3.5); LYMPHOCYTES % (AUTO) 13.1 %; MEAN CORPUSCULAR HEMOGLOBIN 34.5 pg (27.0-31.0); MEAN CORPUSCULAR HGB CONC 33.2 g/dL (32.0-36.0); MEAN CORPUSCULAR VOLUME 103.8 fL (81.0-99.0); MEAN PLATELET VOLUME 9.7 fL (7.9-10.8); MONOCYTES # (AUTO) 1.3 10^3/uL (0.0-1.0); MONOCYTES % (AUTO) 19.4 %; NEUTROPHILS # (AUTO) 4.3 10^3/uL (1.5-6.6); NEUTROPHILS % (AUTO) 63.7 %; PLT - PLATELET COUNT 233 10^3/uL (130-450); RED BLOOD COUNT 3.13 10^6/uL (4.20-5.40); WHITE BLOOD COUNT 6.8 x10^3/uL (4.8-10.8)
[2021-08-11 06:52] LABS: ALBUMIN 2.1 g/dL (3.2-5.5); BILIRUBIN,DIRECT 0.2 mg/dL (0.1-0.5); BILIRUBIN,TOTAL 0.8 mg/dL (0.2-1.0); CALCIUM 7.9 mg/dL (8.5-10.3); CREATININE 0.6 mg/dL (0.4-1.0); CRP - C-REACTIVE PROTEIN 18.9 mg/dL (0-1.0); MAGNESIUM 1.8 mg/dL (1.7-2.8); PHOSPHORUS 3.2 mg/dL (2.5-4.6); POTASSIUM 3.4 mmol/L (3.5-5.0)
[2021-08-11] MEDS: PRENATAL VITAMIN TABLET PO SCH (08:35)
[2021-08-11] MEDS: NEUTRA-PHOS 250 MG TABLET PO SCH ×2 (08:35→16:47)
[2021-08-11] MEDS: FERROUS GLUCONATE 324 MG TABLET PO SCH (08:35)
[2021-08-11] MEDS: THIAMINE 100 MG TABLET PO SCH (08:35)
[2021-08-11] MEDS: ENOXAPARIN 40 MG/0.4 ML SYRINGE SUBQ SCH (08:36)
[2021-08-11] MEDS: NICOTINE 7 MG PATCH TOP SCH (08:36)
[2021-08-11] MEDS: polyethylene glycoL 3350 17 GM PACKET PO SCH (08:36)
[2021-08-11] MEDS: SODIUM CHLORIDE FLUSH 0.9% 10 ML SYRINGE IVP SCH ×3 (08:36→23:39)
--- NOTE | 2021-08-11 09:12 | PROVIDER PROGRESS NOTE ---
Subjective - General Admit Date: 08/06/21 - Review of Systems All Other Systems: positive: Reviewed and negative - Other Other Information/Narrative: No acute events, pain continues at 02/23. Tolerating protein shakes without increase in pain. Ambulating. Received lasix and feels swelling improving. Objective - Patient Data Reviewed Vital Signs: Yes Vital Signs: Vital Signs x48h Temp Pulse Resp BP Pulse Ox 08/11/21 07:29 36.4 C L 97 18 130/93 H 92 08/11/21 04:27 36.8 C 94 18 125/81 H 94 Weight: Weight 08/09/21 08/10/21 08/11/21 23:59 23:59 23:59 Weight (kg) 79 kg 87.7 kg 85 kg Intake & Output: Intake and Output Totals x24h 08/09/21 08/10/21 08/11/21 23:59 23:59 23:59 Intake Total 3506.052 2175 300 Output Total 475 1225 400 Balance 3031.052 950 -100 - Lab Results Lab Results: 08/11/21 05:58 08/11/21 05:58 Other Lab Results: Lab Results x24hrs 08/11/21 08/11/21 08/10/21 Range/Units 05:58 05:58 10:58 WBC 6.8 (4.8-10.8) x10^3/uL RBC 3.13 L (4.20-5.40) 10^6/uL Hgb 10.8 L (12.0-16.0) g/dL Hct 32.5 L (37.0-47.0) % MCV 103.8 H (81.0-99.0) fL MCH 34.5 H (27.0-31.0) pg MCHC 33.2 (32.0-36.0) g/dL RDW 14.0 (12.0-15.0) % Plt Count 233 (130-450) 10^3/uL MPV 9.7 (7.9-10.8) fL Neut # (Auto) 4.3 (1.5-6.6) 10^3/uL Lymph # (Auto) 0.9 L (1.5-3.5) 10^3/uL [place]ender # (Auto) 1.3 H (0.0-1.0) 10^3/uL Eos # (Auto) 0.2 (0.0-0.7) 10^3/uL Baso # (Auto) 0.0 (0.0-0.1) 10^3/uL Absolute Nucleated RBC 0.00 x10^3/uL Nucleated RBC % 0.0 /100WBC PT 14.5 H (9.9-12.6) secs INR 1.3 H (0.8-1.2) Sodium 133 L (135-145) mmol/L Potassium 3.4 L (3.5-5.0) mmol/L Chloride 99 L (101-111) mmol/L Carbon Dioxide 26 (21-32) mmol/L Anion Gap 8.0 (6-13) BUN 8 (6-20) mg/dL Creatinine 0.6 (0.4-1.0) mg/dL Estimated GFR (MDRD) 114 (>89) Glucose 106 H (70-100) mg/dL Calcium 7.9 L (8.5-10.3) mg/dL Phosphorus 3.2 (2.5-4.6) mg/dL Magnesium 1.8 (1.7-2.8) mg/dL Total Bilirubin 0.8 (0.2-1.0) mg/dL Direct Bilirubin 0.2 (0.1-0.5) mg/dL AST 14 (10-42) IU/L ALT 10 (10-60) IU/L Alkaline Phosphatase 96 (42-121) IU/L C-Reactive Protein 18.9 H (0-1.0) mg/dL Total Protein 5.0 L (6.7-8.2) g/dL Albumin 2.1 L (3.2-5.5) g/dL Globulin 2.9 (2.1-4.2) g/dL Lipase 49 (22-51) U/L Stl Occult Blood (IFOB) (NEGATIVE) 08/10/21 Range/Units 10:43 WBC (4.8-10.8) x10^3/uL RBC (4.20-5.40) 10^6/uL Hgb (12.0-16.0) g/dL Hct (37.0-47.0) % MCV (81.0-99.0) fL MCH (27.0-31.0) pg MCHC (32.0-36.0) g/dL RDW (12.0-15.0) % Plt Count (130-450) 10^3/uL MPV (7.9-10.8) fL Neut # (Auto) (1.5-6.6) 10^3/uL Lymph # (Auto) (1.5-3.5) 10^3/uL [place] # (Auto) (0.0-1.0) 10^3/uL Eos # (Auto) (0.0-0.7) 10^3/uL Baso # (Auto) (0.0-0.1) 10^3/uL Absolute Nucleated RBC x10^3/uL Nucleated RBC % /100WBC PT (9.9-12.6) secs INR (0.8-1.2) Sodium (135-145) mmol/L Potassium (3.5-5.0) mmol/L Chloride (101-111) mmol/L Carbon Dioxide (21-32) mmol/L Anion Gap (6-13) BUN (6-20) mg/dL Creatinine (0.4-1.0) mg/dL Estimated GFR (MDRD) (>89) Glucose (70-100) mg/dL Calcium (8.5-10.3) mg/dL Phosphorus (2.5-4.6) mg/dL Magnesium (1.7-2.8) mg/dL Total Bilirubin (0.2-1.0) mg/dL Direct Bilirubin (0.1-0.5) mg/dL AST (10-42) IU/L ALT (10-60) IU/L Alkaline Phosphatase (42-121) IU/L C-Reactive Protein (0-1.0) mg/dL Total Protein (6.7-8.2) g/dL Albumin (3.2-5.5) g/dL Globulin (2.1-4.2) g/dL Lipase (22-51) U/L Stl Occult Blood (IFOB) NEGATIVE (NEGATIVE) - Current Medications Current Medications: Current Medications Generic Name Dose Route Start Last Admin Trade Name Freq PRN Reason Stop Dose Admin Acetaminophen 650 mg 08/06/21 07:23 08/08/21 12:49 Acetaminophen 325 Mg Tablet PO 650 mg Q4HR PRN Administration Pain 1 to 4 Enoxaparin Sodium 40 mg 08/06/21 09:00 08/11/21 08:36 Enoxaparin 40 Mg/0.4 Ml Syringe SUBQ 40 mg DAILY LUCY Administration Ferrous Gluconate 324 mg 08/10/21 09:00 08/11/21 08:35 Ferrous Gluconate 324 Mg Tablet PO 324 mg DAILYWM LUCY Administration Hydromorphone HCl 1 mg 08/10/21 18:48 08/11/21 08:42 Hydromorphone 1 Mg/Ml Carpuject IVP 1 mg Q3H PRN Administration Pain 8 to 10 Cefepime HCl 1 gm/ Sodium 100 mls @ 200 mls/hr 08/08/21 14:00 08/11/21 06:26 Chloride IV Infused TID LUCY Infusion Metronidazole 500 mg in 100 mls @ 100 mls/hr 08/08/21 12:00 08/11/21 05:44 Flagyl 500 Mg/100 Ml IV Infused Q8H LUCY Infusion Ketorolac Tromethamine 30 mg 08/06/21 19:02 08/11/21 05:45 Ketorolac 30 Mg/Ml Vial IVP 08/11/21 19:01 30 mg Q6HR PRN Administration PAIN Nicotine 1 patch 08/06/21 22:12 08/11/21 08:36 Nicotine 7 Mg Patch TOP 1 patch DAILY LUCY Administration Ondansetron HCl 4 mg 08/06/21 07:23 08/10/21 21:06 Ondansetron 4 Mg/2 Ml Vial IVP 4 mg Q6HR PRN Administration Nausea / Vomiting Pantoprazole Sodium 40 mg 08/10/21 08:00 08/11/21 06:10 Pantoprazole 40 Mg Tablet PO 40 mg QDAC LUCY Administration Polyethylene Glycol 17 gm 08/09/21 09:00 08/11/21 08:36 Polyethylene Glycol 3350 17 Gm Packet PO Not Given DAILY [facility] Multivit/Folic Acid/Iron 1 tab 08/07/21 08:00 08/11/21 08:35 Vitamin Tablet PO 1 tab DAILYWM LUCY Administration Prochlorperazine Edisylate 10 mg 08/06/21 07:23 08/08/21 21:50 Prochlorperazine 10 Mg/2 Ml Vial IVP 10 mg Q6HR PRN Administration Nausea / Vomiting Sodium Chloride 10 ml 08/06/21 09:00 08/11/21 08:36 Sodium Chloride Flush 0.9% 10 Ml Syringe IVP 10 ml 0100,0900,1700 LUCY Administration Sodium Chloride 10 ml 08/06/21 07:23 08/10/21 22:15 Sodium Chloride Flush 0.9% 10 Ml Syringe IVP 10 ml PRN PRN Administration NEEDED PER PROVIDER ORDERS Sodium Phosphate 250 mg 08/07/21 08:00 08/11/21 08:35 Neutra-Phos 250 Mg Tablet PO 250 mg TIDWM LUCY Administration Thiamine HCl 100 mg 08/08/21 09:00 08/11/21 08:35 Thiamine 100 Mg Tablet PO 100 mg DAILY LUCY Administration - Physical Exam General Appearance: positive: No acute distress Respiratory: positive: No respiratory distress Cardiovascular: positive: Regular rate & rhythm Abdomen: positive: Other (Soft, edematous, milder tender in left and througout.) Extremities: positive: Nml appearance Neurologic/Psychiatric: positive: Oriented x3 Impression/Plan - Problem List Problem List: Acute pancreatitis: Advance diet as tolerated, recommend trying high protein foods and checking nutrition labs 2x weekly Pain control and lasix per primary Pain is better indicator of whether pancreatitis is improving (no need to trend lipase). If worsening symptoms, could re-scan. However seems to be improving at this time. Outpatient GI referral on discharge Franko Collazo MD
[2021-08-11] MEDS: POTASSIUM CHLORIDE 20 MEQ TABLET PO SCH (09:16)
[2021-08-11] MEDS ORDERED: FERROUS SULFATE 300 MG/5 ML UDC PO SCH (10:00)
[2021-08-11] MEDS: SODIUM CHLORIDE FLUSH 0.9% 10 ML SYRINGE IVP PRN ×4 (11:14→14:45)
[2021-08-11] MEDS: ONDANSETRON 4 MG/2 ML VIAL IVP PRN (11:14)
--- NOTE | 2021-08-11 12:35 | PROVIDER PROGRESS NOTE ---
Assessment/Plan - Problem List (1) Pancreatitis Qualifiers: Chronicity: acute Pancreatitis type: unspecified pancreatitis type Assessment/Plan: Patient was admitted on 08/06/21 with abdominal pain. Her admission Lipase was 1490, AST 43, and ALT 34. 08/06/[address] showed "stranding around the pancreatic head and body consitent with pancreatitis. Hypoenhancing areas in the pancreatic head measuring 1.1cm and 1.5cm that could represent early necrosis or psuedocysts. Hepatomegaly and hepatic steatosis". She was started on Cefapime and Flagly on 08/08/21 due to persistent abdominal pain and persistent hypoenchanicng areas on pancreatic head on repeat abdominal CT along with left shift of WBCs. Today she reports feeling better and denies abdominal pain but reports abdominal pressure secondary to edema. She denies nausea, vomiting, and reports improved appetite. Her WBCs are 6.9, Lipase 49, AST 14, and ALT is 10. The surgeon, Dr. Collazo recommends advancing diet as tolerated with high protein foods. Lipase treading is no longer needed and pain should be used for evaluation. If symptoms worsen, consider rescanning. An outpatient GI referral is also recommended. Plan: Continue antibiotics Cefapime and Flagyl and change to PO upon discharge. Continue to provide pain relief with prn Toradol and Dilaudid. Will decrease frequency of Dilaudid. Advance diet to soft as tolerated. Encourage ambulation to aid in edema/ pressure feeling in abdomen. (2) Anasarca Assessment/Plan: Patient presented to the hospital on with severe abdominal pain and found to have acute pancreatitis most likely secondary to alcohol abuse. On 08/08/21 she continued to have severe pain and repeat abdominal CT showed "interval development of small to moderate bilateral pleural effusions with adjacent atelectasis. Increased intra-abdominal ascites. and soft tissue anasarca". IV fluids were stopped on 08/08/21. She received Lasix 20mg IVP x1 and Albumin 12.5g x1 on 08/10/21. Today she reports slight improvement in swelling but reports persistent abdominal pressure that is a 2/10 in pain. Abdomen appears distended. No edema to extremities. No signs of respiratory distress with clear breath sounds bilaterally and bedside oxygen saturation 96% on room air. Patient denies dyspnea. Plan: Give lasix 20mg IVP x1 today. Continue to encourage use of SCDs and ambulation. (3) Hypokalemia Assessment/Plan: Patient was hypokalemic on admission at 2.4. She has received replacement daily. Today her serum potassium is 3.4. Plan: Start Potassium chloride 20mEQ PO daily. Continue to monitor with BMP daily. (4) Alcohol abuse Assessment/Plan: Patient has a history of alcohol abuse and is likely the cause of her pancreatitis. No alcohol withdraw symptoms during admission with CIWA scores 0- 2. Patient verbalized to previous provider desire to stop alcohol use. Ct of abdomen on 08/08/21 showed "hepatomegaly", most likely secondary to alcohol abuse versus high fat diet. PT is 14.5 and INR is 1.3 today which is mostly secondary to poor liver synthesis from alcohol abuse. The B12 is 1149 today. Plan: Continue with Thiamine daily. Encourage alcohol cessation to continue upon discharge (5) COVID-19 Assessment/Plan: Patient had COVID-19 one month prior. Upon admission her PCR was positive for COVID-19. She is asymptomatic and stable. Her Breath sounds are clear bilaterally, no cough, chest pain, or dyspnea reported. Plan: Resolved COVID-19 infection Monitor for possible post COVID-19 complications as needed. (6) Hyperglycemia Assessment/Plan: Patient does NOT have a history of diabetes. Upon admission to the hospital her glucose was elevated at 264. She was on insulin sliding scale for 2 days. Her A1c was 5.2. Today her glucose is 106. Plan: Resolved Hyperglycemia. Monitor glucose with BMP. - Current Meds Current Meds: Current Medications Generic Name Dose Route Start Last Admin Trade Name Adrian PRN Reason Stop Dose Admin Acetaminophen 650 mg 08/06/21 07:23 08/08/21 12:49 Acetaminophen 325 Mg Tablet PO 650 mg Q4HR PRN Administration Pain 1 to 4 Ferrous Gluconate 324 mg 08/10/21 09:00 08/11/21 08:35 Ferrous Gluconate 324 Mg Tablet PO 324 mg DAILYWM LUCY Administration Cefepime HCl 1 gm/ Sodium 100 mls @ 200 mls/hr 08/08/21 14:00 08/11/21 06:26 Chloride IV Infused TID LUCY Infusion Metronidazole 500 mg in 100 mls @ 100 mls/hr 08/08/21 12:00 08/11/21 11:43 Flagyl 500 Mg/100 Ml IV 100 mls/hr Q8H LUCY Administration Ketorolac Tromethamine 30 mg 08/06/21 19:02 08/11/21 11:43 Ketorolac 30 Mg/Ml Vial IVP 08/11/21 19:01 30 mg Q6HR PRN Administration PAIN Nicotine 1 patch 08/06/21 22:12 08/11/21 08:36 Nicotine 7 Mg Patch TOP 1 patch DAILY LUCY Administration Ondansetron HCl 4 mg 08/06/21 07:23 08/11/21 11:14 Ondansetron 4 Mg/2 Ml Vial IVP 4 mg Q6HR PRN Administration Nausea / Vomiting Pantoprazole Sodium 40 mg 08/10/21 08:00 08/11/21 06:10 Pantoprazole 40 Mg Tablet PO 40 mg QDAC LUCY Administration Polyethylene Glycol 17 gm 08/09/21 09:00 08/11/21 08:36 Polyethylene Glycol 3350 17 Gm Packet PO Not Given DAILY LUCY Potassium Chloride 20 meq 08/11/21 10:00 08/11/21 09:16 Potassium Chloride 20 Meq Tablet PO 20 meq DAILYWM LUCY Administration Multivit/Folic Acid/Iron 1 tab 08/07/21 08:00 08/11/21 08:35 Vitamin Tablet PO 1 tab DAILYWM LUCY Administration Prochlorperazine Edisylate 10 mg 08/06/21 07:23 08/08/21 21:50 Prochlorperazine 10 Mg/2 Ml Vial IVP 10 mg Q6HR PRN Administration Nausea / Vomiting Sodium Chloride 10 ml 08/06/21 09:00 08/11/21 08:36 Sodium Chloride Flush 0.9% 10 Ml Syringe IVP 10 ml 0100,0900,1700 LUCY Administration Sodium Chloride 10 ml 08/06/21 07:23 08/11/21 11:39 Sodium Chloride Flush 0.9% 10 Ml Syringe IVP 10 ml PRN PRN Administration NEEDED PER PROVIDER ORDERS Thiamine HCl 100 mg 08/08/21 09:00 08/11/21 08:35 Thiamine 100 Mg Tablet PO 100 mg DAILY LUCY Administration - Lab Result Fish Bone Diagrams: 08/11/21 05:58 08/11/21 05:58 - Additional Planning Condition/Complexity: Stable Consult/Specialty: Surgery (Dr. Collazo rounded and recommends advancing diet as tolerated) Plan Discussed with:: Patient Subjective - Subjective Patient Reports: Feeling Better, Resting Comfortably, Other (Patient is sitting in bed eating breakfast. Denies abdominal pain, nausea, or vomiting. Reports persistant abdominal "pressure" that is associated with "swelling".) Nursing Reports: No Complaints Objective Vital Signs: Vital Signs - 24 hr 08/10/21 08/10/21 08/10/21 16:10 21:00 23:49 Temperature 37.7 C 36.7 C 36.5 C Heart Rate [ 108 H 108 H Brachial] Heart Rate [ 97 Monitoring electrodes] Respiratory 18 20 20 Rate Blood Pressure 123/81 H 127/81 H 116/82 H [Left Brachial artery] Blood Pressure [Right Brachial artery] O2 Saturation 96 96 96 08/11/21 08/11/21 08/11/21 04:27 07:29 11:12 Temperature 36.8 C 36.4 C L 36.4 C L Heart Rate [ Brachial] Heart Rate [ 94 97 112 H Monitoring electrodes] Respiratory 18 18 18 Rate Blood Pressure 125/81 H 130/93 H [Left Brachial artery] Blood Pressure 119/75 [Right Brachial artery] O2 Saturation 94 92 96 Oxygen O2 Source Room air I&O (Last 24 Hrs): Intake and Output Totals x24h 08/09/21 08/10/21 08/11/21 23:59 23:59 23:59 Intake Total 3506.052 2175 660 Output Total 475 1225 400 Balance 3031.052 950 260 General: Alert, Oriented x3, Cooperative, No acute distress Neuro: Alert, Oriented Times 3 Cardiovascular: Regular rate, No murmurs Respiratory: Chest non-tender, No respiratory distress, Breath sounds nml Abdomen: Normal bowel sounds, Soft, No tenderness, Other (Distended) Extremities: No clubbing, No edema, Normal pulses, No tenderness/swelling Skin: No rashes - Results Results: Laboratory Results WBC 6.8 x10^3/uL (4.8-10.8) 08/11/21 05:58 RBC 3.13 10^6/uL (4.20-5.40) L 08/11/21 05:58 Hgb 10.8 g/dL (12.0-16.0) L 08/11/21 05:58 Hct 32.5 % (37.0-47.0) L 08/11/21 05:58 MCV 103.8 fL (81.0-99.0) H 08/11/21 05:58 MCH 34.5 pg (27.0-31.0) H 08/11/21 05:58 MCHC 33.2 g/dL (32.0-36.0) 08/11/21 05:58 RDW 14.0 % (12.0-15.0) 08/11/21 05:58 Plt Count 233 10^3/uL (130-450) 08/11/21 05:58 MPV 9.7 fL (7.9-10.8) 08/11/21 05:58 Reticulocyte % (Auto) 2.55 % (0.5-2.3) H 08/10/21 05:08 Neut # (Auto) 4.3 10^3/uL (1.5-6.6) 08/11/21 05:58 Lymph # (Auto) 0.9 10^3/uL (1.5-3.5) L 08/11/21 05:58 [place] # (Auto) 1.3 10^3/uL (0.0-1.0) H 08/11/21 05:58 Eos # (Auto) 0.2 10^3/uL (0.0-0.7) 08/11/21 05:58 Baso # (Auto) 0.0 10^3/uL (0.0-0.1) 08/11/21 05:58 Absolute Nucleated RBC 0.00 x10^3/uL 08/11/21 05:58 Total Counted 100 08/07/21 04:48 Band Neuts % (Manual) 1 % (0-10) 08/07/21 04:48 Abnorm Lymph % (Manual) 0 % 08/07/21 04:48 Nucleated RBC % 0.0 /100WBC 08/11/21 05:58 Neutrophils # (Manual) 7.9 10^3/uL (1.5-6.6) H 08/07/21 04:48 Lymphocytes # (Manual) 0.6 10^3/uL (1.5-3.5) L 08/07/21 04:48 Monocytes # (Manual) 0.5 10^3/uL (0.0-1.0) 08/07/21 04:48 Eosinophils # (Manual) 0.0 10^3/uL (0-0.7) 08/07/21 04:48 Basophils # (Manual) 0.0 10^3/uL (0-0.1) 08/07/21 04:48 Differential Comment MANUAL DIFFERENTIAL 08/07/21 04:48 WBC Morphology NORMAL APPEARANCE (NORMAL) 08/07/21 04:48 Platelet Estimate NORMAL (130-450,000) (NORMAL) 08/07/21 04:48 Platelet Morphology NORMAL APPEARANCE (NORMAL) 08/07/21 04:48 RBC Morph Micro Appear NORMAL APPEARANCE (NORMAL) 08/07/21 04:48 ESR 8 mm/Hr (0-20) 08/08/21 08:28 Absolute Retic 0.080 10^6/uL (0.020-0.110) 08/10/21 05:08 PT 14.5 secs (9.9-12.6) H 08/10/21 10:58 INR 1.3 (0.8-1.2) H 08/10/21 10:58 Sodium 133 mmol/L (135-145) L 08/11/21 05:58 Potassium 3.4 mmol/L (3.5-5.0) L 08/11/21 05:58 Chloride 99 mmol/L (101-111) L 08/11/21 05:58 Carbon Dioxide 26 mmol/L (21-32) 08/11/21 05:58 Anion Gap 8.0 (6-13) 08/11/21 05:58 BUN 8 mg/dL (6-20) 08/11/21 05:58 Creatinine 0.6 mg/dL (0.4-1.0) 08/11/21 05:58 Estimated GFR (MDRD) 114 (>89) 08/11/21 05:58 Glucose 106 mg/dL (70-100) H 08/11/21 05:58 POC Whole Bld Glucose 101 mg/dL (70 - 100) H 08/09/21 11:34 Estimat Average Glucose 103 mg/dL (70-100) H 08/06/21 06:00 Hemoglobin A1c % 5.2 % (4.27-6.07) 08/06/21 06:00 Calcium 7.9 mg/dL (8.5-10.3) L 08/11/21 05:58 Phosphorus 3.2 mg/dL (2.5-4.6) 08/11/21 05:58 Magnesium 1.8 mg/dL (1.7-2.8) 08/11/21 05:58 Iron 9 ug/dL (28-170) L 08/10/21 05:08 TIBC 112 ug/dL (250-450) L 08/10/21 05:08 % Saturation 8 % (20-50) L 08/10/21 05:08 Transferrin 80 mg/dL (192-382) L 08/10/21 05:08 Ferritin 476.8 ng/mL (11.0-306.8) H 08/10/21 05:08 Total Bilirubin 0.8 mg/dL (0.2-1.0) 08/11/21 05:58 Direct Bilirubin 0.2 mg/dL (0.1-0.5) 08/11/21 05:58 AST 14 IU/L (10-42) 08/11/21 05:58 ALT 10 IU/L (10-60) 08/11/21 05:58 Alkaline Phosphatase 96 IU/L (42-121) 08/11/21 05:58 Lactate Dehydrogenase 159 IU/L (91-225) 08/10/21 05:08 C-Reactive Protein 18.9 mg/dL (0-1.0) H 08/11/21 05:58 Total Protein 5.0 g/dL (6.7-8.2) L 08/11/21 05:58 Albumin 2.1 g/dL (3.2-5.5) L 08/11/21 05:58 Globulin 2.9 g/dL (2.1-4.2) 08/11/21 05:58 Albumin/Globulin Ratio 1.2 (1.0-2.2) 08/06/21 06:00 Triglycerides 67 mg/dL (-149) 08/06/21 06:00 Cholesterol 207 mg/dL (-199) H 08/06/21 06:00 LDL Cholesterol, Calc 76 mg/dL (-129) 08/06/21 06:00 VLDL Cholesterol 13 mg/dL 08/06/21 06:00 HDL Cholesterol 118 mg/dL (60-) 08/06/21 06:00 LDL/HDL Ratio 0.6 (<4.4) 08/06/21 06:00 Cholesterol/HDL Ratio 1.8 (<4.4) 08/06/21 06:00 Amylase 99 U/L (28-100) 08/09/21 04:50 Lipase 49 U/L (22-51) 08/11/21 05:58 Vitamin B12 1149 pg/mL (180-914) H 08/10/21 05:08 Folate 8.31 ng/mL (5.90 - >24.8) 08/07/21 04:48 Urine Color YELLOW 08/06/21 06:00 Urine Clarity CLEAR (CLEAR) 08/06/21 06:00 Urine pH 5.5 PH (5.0-7.5) 08/06/21 06:00 Ur Specific [place] 1.025 (1.002-1.030) 08/06/21 06:00 Urine Protein NEGATIVE mg/dL (NEGATIVE) 08/06/21 06:00 Urine Glucose (UA) 500 mg/dL (NEGATIVE) H 08/06/21 06:00 Urine Ketones 15 mg/dL (NEGATIVE) H 08/06/21 06:00 Urine Occult Blood NEGATIVE (NEGATIVE) 08/06/21 06:00 Urine Nitrite NEGATIVE (NEGATIVE) 08/06/21 06:00 Urine Bilirubin NEGATIVE (NEGATIVE) 08/06/21 06:00 Urine Urobilinogen 0.2 (NORMAL) E.U./dL (NORMAL) 08/06/21 06:00 Ur Leukocyte Esterase TRACE (NEGATIVE) H 08/06/21 06:00 Urine RBC None Seen /HPF (0-5) 08/06/21 06:00 Urine WBC 0-3 /HPF (0-5) 08/06/21 06:00 Ur Squamous Epith Cells MOD Squamous (<= Few) H 08/06/21 06:00 Urine Bacteria Rare /HPF (None Seen) 08/06/21 06:00 Ur Microscopic Review INDICATED 08/06/21 06:00 Urine Culture Comments NOT INDICATED 08/06/21 06:00 Urine HCG, Qual NEGATIVE 08/06/21 06:00 Nasal Adenovirus (PCR) NOT DETECTED 08/06/21 07:30 Nasal B. parapertussis DNA (PCR) NOT DETECTED 08/06/21 07:30 Nasal Coronavir 229E PCR NOT DETECTED 08/06/21 07:30 Nasal Coronavir HKU1 PCR NOT DETECTED 08/06/21 07:30 Nasal Coronavir NL63 PCR NOT DETECTED 08/06/21 07:30 Nasal Coronavir OC43 PCR NOT DETECTED 08/06/21 07:30 Nasal Enterovir/Rhinovir PCR NOT DETECTED 08/06/21 07:30 Nasal Influenza B PCR NOT DETECTED 08/06/21 07:30 Nasal Influenza A PCR NOT DETECTED 08/06/21 07:30 Nasal Parainfluen 1 PCR NOT DETECTED 08/06/21 07:30 Nasal Parainfluen 2 PCR NOT DETECTED 08/06/21 07:30 Nasal Parainfluen 3 PCR NOT DETECTED 08/06/21 07:30 Nasal Parainfluen 4 PCR NOT DETECTED 08/06/21 07:30 Nasal RSV (PCR) NOT DETECTED 08/06/21 07:30 Nasal Screen MRSA (PCR) NEGATIVE (NEGATIVE) 08/06/21 09:00 Nasal B.pertussis DNA PCR NOT DETECTED 08/06/21 07:30 Nasal C.pneumoniae (PCR) NOT DETECTED 08/06/21 07:30 [place] Human Metapneumo PCR NOT DETECTED 08/06/21 07:30 Nasal M.pneumoniae (PCR) NOT DETECTED 08/06/21 07:30 Nasal SARS-CoV-2 (PCR) DETECTED A 08/06/21 07:30 Stl Occult Blood (IFOB) NEGATIVE (NEGATIVE) 08/10/21 10:43 - Procedures Procedures: Procedures MANUAL ASSIST DELIV NEC (11/14/14) ABX Reporting Has patient been on IV antibiotics over the past 48 hours?: Yes
[2021-08-11] MEDS ORDERED: FUROSEMIDE 20 MG/2 ML VIAL IVP STA (13:49)
[2021-08-11] MEDS: ACETAMINOPHEN 325 MG TABLET PO PRN (15:58)
[2021-08-11] MEDS: PROCHLORPERAZINE 10 MG/2 ML VIAL IVP PRN (19:25)
[2021-08-12] MEDS: metroNIDAZOLE 500 MG/100 ML 500 MG/100 ML BAG IV SCH ×2 (04:21→11:54)
[2021-08-12] MEDS: ACETAMINOPHEN 325 MG TABLET PO PRN ×2 (04:54→11:49)
[2021-08-12] MEDS: CEFEPIME 1 GM in SODIUM CHLORIDE 0.9% MINIBAG 100 ML IV SCH ×2 (05:58→14:17)
[2021-08-12] MEDS: PANTOPRAZOLE 40 MG TABLET PO SCH (06:03)
[2021-08-12 06:08] LABS: BASOPHILS % (AUTO) 0.5 %; HCT - HEMATOCRIT 30.6 % (37.0-47.0); HGB - HEMOGLOBIN 10.6 g/dL (12.0-16.0); LYMPHOCYTES % (AUTO) 12.5 %; MEAN CORPUSCULAR HGB CONC 34.6 g/dL (32.0-36.0); MEAN PLATELET VOLUME 9.5 fL (7.9-10.8); MONOCYTES % (AUTO) 16.9 %; NEUTROPHILS % (AUTO) 67.6 %; PLT - PLATELET COUNT 332 10^3/uL (130-450); RED BLOOD COUNT 3.03 10^6/uL (4.20-5.40); RED CELL DISTRIBUTION WIDTH 14.1 % (12.0-15.0); WHITE BLOOD COUNT 9.4 x10^3/uL (4.8-10.8)
[2021-08-12 06:11] LABS: ABNORMAL LYMPHS % (MANUAL) 0 %; BAND NEUTROPHILS % (MANUAL) 0 %
[2021-08-12 06:31] LABS: ALBUMIN 2.1 g/dL (3.2-5.5); BILIRUBIN,DIRECT 0.2 mg/dL (0.1-0.5); BILIRUBIN,TOTAL 0.6 mg/dL (0.2-1.0); CALCIUM 7.8 mg/dL (8.5-10.3); CREATININE 0.6 mg/dL (0.4-1.0); CRP - C-REACTIVE PROTEIN 9.4 mg/dL (0-1.0); DIFFERENTIAL COMMENT MANUAL DIFFERENTIAL; EOSINOPHILS # (MANUAL) 0.3 10^3/uL (0-0.7); LYMPHOCYTES # (MANUAL) 1.3 10^3/uL (1.5-3.5); LYMPHOCYTES % (MANUAL) 14 %; MAGNESIUM 1.6 mg/dL (1.7-2.8); MONOCYTES # (MANUAL) 1.6 10^3/uL (0.0-1.0); NEUTROPHILS # (MANUAL) 6.2 10^3/uL (1.5-6.6); PHOSPHORUS 3.5 mg/dL (2.5-4.6); PLATELET ESTIMATE, MANUAL NORMAL (130-450,000) (NORMAL); PLATELET MORPHOLOGY NORMAL APPEARANCE (NORMAL); POTASSIUM 3.2 mmol/L (3.5-5.0); RBC MORPHOLOGY (MULTIPLE) NORMAL APPEARANCE (NORMAL); TOTAL PROTEIN 5.2 g/dL (6.7-8.2); WBC MORPHOLOGY (MULTIPLE) NORMAL APPEARANCE (NORMAL)
--- NOTE | 2021-08-12 08:15 | Discharge Plan ---
Discharge Plan Problem Reviewed?: Yes Diet: Soft (Soft low fiber diet high in protein. No Alcohol) Activity Restrictions: No Restrictions Shower Restrictions: No Driving Restrictions: No No Smoking: If you smoke, Please STOP! Call for help. Disposition: 01 Home, Self Care Condition: Stable Prescriptions: Escitalopram Oxalate 20 mg PO DAILY #30 tablet Potassium Chloride [K-Dur] 20 meq PO DAILY #3 tablet Furosemide [Lasix] 20 mg PO DAILY #3 tablet levoFLOXacin [Levaquin] 750 mg PO ONCE #3 tablet Thiamine [Vitamin B-1] 100 mg PO DAILY #30 tablet Instruction Topics: Depression Help Tips, Alcoholism Get Help, Pancreatitis Acute Dc Health Concerns: You were hospitalized to manage pancreatitis with bowel rest, IV fluids, and pain medications. During your stay your pain and blood levels showed a possible infection so you were started on antibiotics to keep it form getting worse. The surgeon who consulted on you recommends 5 days of antibiotics to prevent an infection with your abdominal fluids. You will need to take ONE more day of antibiotics at home. The CT scan of your abdomen showed that you have an enlarged and fatty liver with a possible cyst. You will need to follow up with your provider in the future to evaluate the possible pancreas cyst. To help your liver to heal you need to stop drinking alcohol and limit fatty foods. Please remain on a soft, low fiber diet until your abdominal pain has resolved. You may then resume a regular diet low in fat. For breakthrough pain, take an over the counter NSAID like Motrin/ Ibuprofen as directed on the bottle instruction. Also, take the water pill for 3 days more to help eliminate the retained fluid in the abdomen. Information was provided to you on local Alcoholics Anonymous meetings to help you to be successful in stopping alcohol use. Please resume your antidepressant medication. It has been refilled for you. Seek care form a Psychiatrist or Psychologist if you need. All new prescriptions were electronically sent to your [facility] in [place]. If you experience the severe abdominal pain, nausea, vomiting, and/or fever, return to the emergency room. Plan of Treatment: As above Care Goals: Improvement in symptoms and stabilization are the goals Assessment: The patient understands and is agreeable with the goals. Additional Instructions or Follow Up instructions: Please see your primary care provider in 1- 2 weeks for a hospital follow-up visit. Follow-up with: Sylwia Leblanc ARNP [Credentialed Staff Provider] -
[2021-08-12] MEDS: PRENATAL VITAMIN TABLET PO SCH (09:10)
[2021-08-12] MEDS: FERROUS GLUCONATE 324 MG TABLET PO SCH (09:10)
[2021-08-12] MEDS: THIAMINE 100 MG TABLET PO SCH (09:10)
[2021-08-12] MEDS: POTASSIUM CHLORIDE 20 MEQ TABLET PO SCH (09:10)
[2021-08-12] MEDS: polyethylene glycoL 3350 17 GM PACKET PO SCH (09:11)
[2021-08-12] MEDS: NICOTINE 7 MG PATCH TOP SCH (09:11)
[2021-08-12] MEDS: NEUTRA-PHOS 250 MG TABLET PO SCH (09:11)
[2021-08-12] MEDS: SODIUM CHLORIDE FLUSH 0.9% 10 ML SYRINGE IVP SCH (09:11)
[2021-08-12] MEDS: ONDANSETRON 4 MG/2 ML VIAL IVP PRN (09:16)
[2021-08-12] MEDS: HYDROmorphone 1 MG/ML CARPUJECT IVP PRN (09:16)
--- NOTE | 2021-08-12 09:43 | PROVIDER PROGRESS NOTE ---
Subjective - General Admit Date: 08/06/21 - Review of Systems All Other Systems: positive: Reviewed and negative - Other Other Information/Narrative: NAEO. Pain 10/10 per pt. Ambulating. Tolerating PO. Objective - Patient Data Reviewed Vital Signs: Yes Weight: Weight 08/10/21 08/11/21 08/12/21 23:59 23:59 23:59 Weight (kg) 87.7 kg 85 kg 85 kg Intake & Output: Intake and Output Totals x24h 08/10/21 08/11/21 08/12/21 23:59 23:59 23:59 Intake Total 2175 1500.000 500 Output Total 1225 1700 900 Balance 950 -200.000 -400 - Lab Results Lab Results: 08/12/21 05:56 08/12/21 05:56 Other Lab Results: Lab Results x24hrs 08/12/21 08/12/21 Range/Units 05:56 05:56 WBC 9.4 (4.8-10.8) x10^3/uL RBC 3.03 L (4.20-5.40) 10^6/uL Hgb 10.6 L (12.0-16.0) g/dL Hct 30.6 L (37.0-47.0) % MCV 101.0 H (81.0-99.0) fL MCH 35.0 H (27.0-31.0) pg MCHC 34.6 (32.0-36.0) g/dL RDW 14.1 (12.0-15.0) % Plt Count 332 (130-450) 10^3/uL MPV 9.5 (7.9-10.8) fL Neut # (Auto) Not Reportable Lymph # (Auto) Not Reportable [place] # (Auto) Not Reportable Eos # (Auto) Not Reportable Baso # (Auto) Not Reportable Absolute Nucleated RBC Not Reportable Total Counted 100 Band Neuts % (Manual) 0 (0 - 10) % Abnorm Lymph % (Manual) 0 % Nucleated RBC % Not Reportable Neutrophils # (Manual) 6.2 (1.5-6.6) 10^3/uL Lymphocytes # (Manual) 1.3 L (1.5-3.5) 10^3/uL Monocytes # (Manual) 1.6 H (0.0-1.0) 10^3/uL Eosinophils # (Manual) 0.3 (0-0.7) 10^3/uL Basophils # (Manual) 0.0 (0-0.1) 10^3/uL Differential Comment MANUAL DIFFERENTIAL WBC Morphology NORMAL APPEARANCE (NORMAL) Platelet Estimate NORMAL (130-450,000) (NORMAL) Platelet Morphology NORMAL APPEARANCE (NORMAL) RBC Morph Micro Appear NORMAL APPEARANCE (NORMAL) Sodium 131 L (135-145) mmol/L Potassium 3.2 L (3.5-5.0) mmol/L Chloride 97 L (101-111) mmol/L Carbon Dioxide 25 (21-32) mmol/L Anion Gap 9.0 (6-13) BUN 7 (6-20) mg/dL Creatinine 0.6 (0.4-1.0) mg/dL Estimated GFR (MDRD) 114 (>89) Glucose 115 H (70-100) mg/dL Calcium 7.8 L (8.5-10.3) mg/dL Phosphorus 3.5 (2.5-4.6) mg/dL Magnesium 1.6 L (1.7-2.8) mg/dL Total Bilirubin 0.6 (0.2-1.0) mg/dL Direct Bilirubin 0.2 (0.1-0.5) mg/dL AST 18 (10-42) IU/L ALT 11 (10-60) IU/L Alkaline Phosphatase 97 (42-121) IU/L C-Reactive Protein 9.4 H (0-1.0) mg/dL Total Protein 5.2 L (6.7-8.2) g/dL Albumin 2.1 L (3.2-5.5) g/dL Globulin 3.1 (2.1-4.2) g/dL - Current Medications Current Medications: Current Medications Generic Name Dose Route Start Last Admin Trade Name Freq PRN Reason Stop Dose Admin Acetaminophen 650 mg 08/06/21 07:23 08/12/21 04:54 Acetaminophen 325 Mg Tablet PO 650 mg Q4HR PRN Administration Pain 1 to 4 Ferrous Gluconate 324 mg 08/10/21 09:00 08/12/21 09:10 Ferrous Gluconate 324 Mg Tablet PO 324 mg DAILYWM LUCY Administration Hydromorphone HCl 1 mg 08/11/21 09:08 08/12/21 09:16 Hydromorphone 1 Mg/Ml Carpuject IVP 1 mg Q6H PRN Administration Pain 8 to 10 Cefepime HCl 1 gm/ Sodium 100 mls @ 200 mls/hr 08/08/21 14:00 08/12/21 06:50 Chloride IV Infused TID LUCY Infusion Metronidazole 500 mg in 100 mls @ 100 mls/hr 08/08/21 12:00 08/12/21 05:26 Flagyl 500 Mg/100 Ml IV Infused Q8H LUCY Infusion Nicotine 1 patch 08/06/21 22:12 08/12/21 09:11 Nicotine 7 Mg Patch TOP 1 patch DAILY LUCY Administration Ondansetron HCl 4 mg 08/06/21 07:23 08/12/21 09:16 Ondansetron 4 Mg/2 Ml Vial IVP 4 mg Q6HR PRN Administration Nausea / Vomiting Pantoprazole Sodium 40 mg 08/10/21 08:00 08/12/21 06:03 Pantoprazole 40 Mg Tablet PO 40 mg QDAC LUCY Administration Polyethylene Glycol 17 gm 08/09/21 09:00 08/12/21 09:11 Polyethylene Glycol 3350 17 Gm Packet PO Not Given DAILY LUCY Potassium Chloride 20 meq 08/11/21 10:00 08/12/21 09:10 Potassium Chloride 20 Meq Tablet PO 20 meq DAILYWM LUCY Administration Multivit/Folic Acid/Iron 1 tab 08/07/21 08:00 08/12/21 09:10 Vitamin Tablet PO 1 tab DAILYWM LUCY Administration Prochlorperazine Edisylate 10 mg 08/06/21 07:23 08/11/21 19:25 Prochlorperazine 10 Mg/2 Ml Vial IVP 10 mg Q6HR PRN Administration Nausea / Vomiting Sodium Chloride 10 ml 08/06/21 09:00 08/12/21 09:11 Sodium Chloride Flush 0.9% 10 Ml Syringe IVP 10 ml 0100,0900,1700 LUCY Administration Sodium Chloride 10 ml 08/06/21 07:23 08/11/21 14:45 Sodium Chloride Flush 0.9% 10 Ml Syringe IVP 10 ml PRN PRN Administration NEEDED PER PROVIDER ORDERS Sodium Phosphate 250 mg 08/11/21 17:00 08/12/21 09:11 Neutra-Phos 250 Mg Tablet PO 250 mg BIDWM LUCY Administration Thiamine HCl 100 mg 08/08/21 09:00 08/12/21 09:10 Thiamine 100 Mg Tablet PO 100 mg DAILY LUCY Administration - Physical Exam General Appearance: positive: No acute distress Abdomen: positive: Non-tender, No distention. negative: Guarding, Rebound Skin: positive: Warm, Dry Neurologic/Psychiatric: positive: Oriented x3, Mood/affect nml Impression/Plan - Problem List Problem List: Acute pancreatitis: Advance diet as tolerated, recommend trying high protein foods and checking nutrition labs 2x weekly while inpatient Pain control and lasix per primary Pain is better indicator of whether pancreatitis is improving (no need to trend lipase). If worsening symptoms, could re-scan. However seems to be improving at this time. Outpatient GI referral on discharge No further needs from gen surg perspective; please call with any questions Jacob Ace MD General Surgery
[2021-08-12] MEDS: SODIUM CHLORIDE FLUSH 0.9% 10 ML SYRINGE IVP PRN ×2 (11:49→14:15)
--- NOTE | 2021-08-12 11:51 | DISCHARGE SUMMARY ---
<Marivel Gastelum - Last Filed: 08/13/21 13:50> Discharge Summary Admit Date: 08/06/21 Discharge Date: 08/12/21 Discharging Provider: Dr. Ortiz Code Status: Attempt Resuscitation Condition at Discharge: Stable Discharge Disposition: 01 Home, Self Care - DIAGNOSES Admission Diagnoses: 1. Pancreatitis 2. Hypokalemia 3. Alcohol abuse 4. Hyperglycemia 5. Covid-19 - HPI History of Present Illness: Per Dr. Castañeda admitting note: This is a 35-year-old female with a history of depression and pancreatitis last year who presents complaining of abdominal pain that began early this morning. She states she woke up at 2 AM complaining of severe epigastric pain that was a 10 out of 10. It radiated her whole abdomen. She had multiple episodes of emesis associated with nausea. She had 2 episodes of loose stools overnight. She reports no fever but has had chills. She states her last alcoholic beverage was 3 days ago and that she no longer drinks consistently due to the episode of pancreatitis last year. She states she will have an occasional beverage once or twice a week now. She states she was diagnosed with Covid last month. She reports occasional dyspnea but this began after her abdominal pain. No cough or chest pain. - CONSULTS | PROCEDURES Consultations: Dr. Ace with General Surgery - HOSPITAL COURSE Hospital Course: (1) Pancreatitis Patient was admitted with Pancreatitis with an admission Lipase 1490, AST 43, and ALT 34. She was put on bowel rest with NPO status, then advanced to clear liquids. Abd Ct showed " Hypoenhancing areas in the pancreatic head measuring 1.1cm and 1.5cm that could represent early necrosis or psuedocysts along with hepatomegaly and hepatic steatosis". She was started on Cefapime and Flagly for 5 days due to persistent abdominal pain and a new left shift of WBCs. She was treated with IV fluids, pain medication, and antibiotics. her lipase slowly improved and her diet was advanced. She complained of 9/10 abdominal pian and requested IV narcotics. These were then weaned down. Her WBCs are 9.4, Lipase 49, AST 18, and ALT is 11 on the day of discharge. She will have one day of levofloxacin at home. She was advised to establish care with a primary care provider and get referral to a hearing therapy teacher for possible pancreatic psuedocysts. (2) Anasarca Patient was treated for pancreatitis with IV fluids. On day 2 she had continued severe abdominal pain and abd CT showed " Increased intra-abdominal ascites. and soft tissue anasarca". IV fluids were stopped and she received Lasix 20mg IVP for two days and Albumin 12.5g x1. Her anasarca improved and no edema was observed to extremities. Her albumin is 2.1 and protein is 5.2 on day of discharge. She was discharged to take 3 more days of oral Lasix with Potassium. (3) Alcohol abuse Patient has a history of alcohol abuse and is likely the cause of her pancreatitis. No alcohol withdrawal symptoms were noted during admission with CIWA scores 0-2. She was seen by social sciences research scientist who also noted she was depressed. Patient verbalized desire to stop alcohol use and information on Alcoholics Anonymous was given. She has a plan for a close friend who has been sober for 10 year to be her sponsor. She was discharged with daily thiamine prescribed and her Lexapro 20mg daily was restarted. (4) Hypokalemia Patient was hypokalemic on admission at 2.4. She has received replacement with potassium chloride 20mEq daily. On the day of discharge her serum potassium is 3.2. She was discharged with Potassium daily while on Lasix. (5) COVID-19 Patient had COVID-19 one month prior. Upon admission her PCR was positive for COVID-19. She was asymptomatic and stable. Her Breath sounds are clear bilaterally, no cough, chest pain, or dyspnea reported. (6) Hyperglycemia Patient does NOT have a history of diabetes. Upon admission to the hospital her glucose was elevated at 264. It was felt to be related to her acute pancreatitis and possibly the infection. She was on insulin sliding scale for 2 days. Her A1c was 5.2. Her glucose on discharge was 115. - ALLERGIES Allergies/Adverse Reactions: Allergies Allergy/AdvReac Type Severity Reaction Status Date / Time No Known Drug Allergies Allergy Verified 08/06/21 05:59 - MEDICATIONS Home Medications: Ambulatory Orders Medication Instructions Recorded Confirmed Escitalopram Oxalate 20 mg PO DAILY #30 tablet 08/12/21 Furosemide [Lasix] 20 mg PO DAILY #3 tablet 08/12/21 Potassium Chloride [K-Dur] 20 meq PO DAILY #3 tablet 08/12/21 Thiamine [Vitamin B-1] 100 mg PO DAILY #30 tablet 08/12/21 levoFLOXacin [Levaquin] 750 mg PO ONCE #3 tablet 08/12/21 - PHYSICAL EXAM AT DISCHARGE General Appearance: positive: No acute distress, Alert Eyes Bilateral: positive: Normal inspection, EOMI Respiratory: positive: Chest non-tender, No respiratory distress, Breath sounds nml Cardiovascular: positive: Regular rate & rhythm, No murmur Peripheral Pulses: positive: 2+ Abdomen: positive: Non-tender, Nml bowel sounds, Other (Distention) Skin: positive: Color nml, No rash, Warm, Dry Extremities: positive: Non-tender, Full ROM, Nml appearance Neurologic/Psychiatric: positive: Oriented x3 - LABS Result Diagrams: 08/12/21 05:56 08/12/21 05:56 - DIAGNOSTIC IMAGING Diagnostic Imaging Results: Final report reviewed <Deborah Ortiz - Last Filed: 08/13/21 13:56> Discharge Summary Primary Care Provider: None - LABS Result Diagrams: 08/12/21 05:56 08/12/21 05:56
[2021-08-12 15:23] VITALS: BP 134/95
== END 2021-08-12 16:00 | disposition home or self-care (01) | DRG 438 ==
LOC: ED 05:46 → ICU 07:23 → MS2 19:01
PROVIDERS: ADMIT Internal Medicine; ATTEND Internal Medicine
DX: K85.20 Alcohol induced acute pancreatitis without necrosis or infection (principal); U07.1 COVID-19; R18.8 Other ascites; J90 Pleural effusion, not elsewhere classified; K86.0 Alcohol-induced chronic pancreatitis; E87.6 Hypokalemia; F10.10 Alcohol abuse, uncomplicated; K21.9 Gastro-esophageal reflux disease without esophagitis; F32.A Depression, unspecified; F17.210 Nicotine dependence, cigarettes, uncomplicated; R32 Unspecified urinary incontinence; R73.9 Hyperglycemia, unspecified; Z87.442 Personal history of urinary calculi
CPT/HCPCS: 0202U; 36415; 74177; 76705; 80048; 80053; 80061; 80076; 81001; 81025; 82150; 82274; 82607; 82728; 82746; 83036; 83540; 83615; 83690; 83735; 84100; 84466; 85025; 85045; 85610; 85651; 86140; 87040; 87150; 93005; 96361; 96365; 96375; 99285; A9270; J1170; J1650; J3411; J7040; J7120; P9047; Q9967; 81003; 83721; 87086

== ENCOUNTER 2021-08-18 03:42 | Outpatient (CLI) | payer MEDICAID | END 2021-08-18 03:43 | disposition critical access hospital (66) | LOC: EMS 03:42 | DX: R10.84 Generalized abdominal pain (principal) | CPT/HCPCS: A0425; A0429; A0999 ==

== ENCOUNTER 2021-08-18 04:05 | Inpatient (IN) | payer MEDICAID ==
--- NOTE | 2021-08-18 04:09 | ED Physician Documentation ---
PD HPI ABD PAIN - Stated complaint Stated Complaint: ABD PX - History obtained from History obtained from: Patient, EMS - History of Present Illness Timing - onset: Enter time (01:00), Today Timing - details: Abrupt onset Pain level max: 10 Pain level now: 10 Quality: Pain Location: All over / everywhere (predominantly right-sided) Radiation: Right flank Improved by: Laying still Worsened by: Moving, Breathing, Palpation Associated symptoms: Nausea, Vomiting. No: Fever, Diarrhea, Constipation Recently seen: Admitted (admitted 08/06/21 for pancreatitis, discharged 08/12) - Additional information Additional information: BIBA. Patient c/o sudden onset abdominal pain,predominantly right-sided, waking her from sleep at approximately 1 AM this morning. She has had nausea and emesis x 1. Denies fever but has chills and diaphoresis. She was recently admitted for pancreatitis. She says she has not had any alcohol for approximately 2 weeks (has not drank any alcohol since d/c from the hospital). Review of Systems Constitutional: reports: Chills, Sweats. denies: Fever Eyes: reports: Reviewed and negative Ears: reports: Reviewed and negative Nose: reports: Reviewed and negative Throat: reports: Reviewed and negative Cardiac: reports: Reviewed and negative Respiratory: reports: Reviewed and negative GI: reports: Abdominal Pain, Nausea, Vomiting. 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 : Kidney stones HEENT: None Psych: Depression Musculoskeletal: None Derm: None - Past Surgical History Past Surgical History: Yes /FORGE OPERATOR HELPER: Other (Intervention for staghorn calculi) HEENT: Tonsil/Adenoidectomy - Present Medications Home Medications: Ambulatory Orders Medication Instructions Recorded Confirmed Escitalopram Oxalate 20 mg PO DAILY #30 tablet 08/12/21 08/18/21 Thiamine [Vitamin B-1] 100 mg PO DAILY #30 tablet 08/12/21 08/18/21 - Allergies Allergies/Adverse Reactions: Allergies Allergy/AdvReac Type Severity Reaction Status Date / Time No Known Drug Allergies Allergy Verified 08/18/21 04:18 - Social History Does the pt smoke?: Yes Smoking Status: Current every day smoker Does the pt drink ETOH?: No Does the pt have substance abuse?: Yes - Immunizations Immunizations are current?: Yes - POLST Patient has POLST: No POLST Status: Full Code PD ED PE NORMAL - Vitals Vital signs reviewed: Yes - General General: Alert and oriented X 3, Well developed/nourished, Other (appears to be in moderate painful distress) - HEENT HEENT: Moist mucous membranes - Neck Neck: Supple, no meningeal sign - Cardiac Cardiac: No murmur - Respiratory Respiratory: No respiratory distress, Clear bilaterally - Abdomen Abdomen: Normal bowel sounds, Soft, Non distended PD ED PE EXPANDED - Cardiac Cardiac: Tachy, Regular Rhythm - Abdomen Abdomen: Tender to palpation (diffuse TTP, most pronounced right side (RUQ about the same as RLQ), as well as periumbilical). No: Rebound Results - Vitals Vitals: Oxygen O2 Source Room air - Labs Labs: Laboratory Tests 08/18/21 08/18/21 08/18/21 04:10 04:10 04:10 WBC 18.7 H RBC 3.51 L Hgb 12.0 Hct 37.1 MCV 105.7 H MCH 34.2 H MCHC 32.3 RDW 14.4 Plt Count 1059 H* MPV 9.1 Neut # (Auto) 15.9 H Lymph # (Auto) 1.5 [place] # (Auto) 0.8 Eos # (Auto) 0.2 Baso # (Auto) 0.1 Absolute Nucleated RBC 0.00 Nucleated RBC % 0.0 Manual Slide Review Indicated WBC Morphology NORMAL APPEARANCE Platelet Estimate INCREASED (>450,000) Platelet Morphology NORMAL APPEARANCE RBC Morph Micro Appear NORMAL APPEARANCE Sodium 137 Potassium 3.6 Chloride 102 Carbon Dioxide 25 Anion Gap 10.0 BUN 5 L Creatinine 0.7 Estimated GFR (MDRD) 96 Glucose 150 H Lactic Acid Calcium 8.8 Total Bilirubin 0.4 AST 20 ALT 10 Alkaline Phosphatase 100 Total Protein 6.8 Albumin 3.0 L Globulin 3.8 Albumin/Globulin Ratio 0.8 L Lipase 169 H Urine Color Urine Clarity Urine pH Ur Specific [place] Urine Protein Urine Glucose (UA) Urine Ketones Urine Occult Blood Urine Nitrite Urine Bilirubin Urine Urobilinogen Ur Leukocyte Esterase Ur Microscopic Review Urine Culture Comments Urine HCG, Qual Ethyl Alcohol < 5.0 SARS-CoV-2 (PCR) 08/18/21 08/18/21 08/18/21 05:37 06:45 06:45 WBC RBC Hgb Hct MCV MCH MCHC RDW Plt Count MPV Neut # (Auto) Lymph # (Auto) [place] # (Auto) Eos # (Auto) Baso # (Auto) Absolute Nucleated RBC Nucleated RBC % Manual Slide Review WBC Morphology Platelet Estimate Platelet Morphology RBC Morph Micro Appear Sodium Potassium Chloride Carbon Dioxide Anion Gap BUN Creatinine Estimated GFR (MDRD) Glucose Lactic Acid 0.7 Calcium Total Bilirubin AST ALT Alkaline Phosphatase Total Protein Albumin Globulin Albumin/Globulin Ratio Lipase Urine Color YELLOW Urine Clarity CLEAR Urine pH 6.0 Ur Specific [place] <=1.005 Urine Protein NEGATIVE Urine Glucose (UA) NEGATIVE Urine Ketones NEGATIVE Urine Occult Blood NEGATIVE Urine Nitrite NEGATIVE Urine Bilirubin NEGATIVE Urine Urobilinogen 0.2 (NORMAL) Ur Leukocyte Esterase NEGATIVE Ur Microscopic Review NOT INDICATED Urine Culture Comments NOT INDICATED Urine HCG, Qual NEGATIVE Ethyl Alcohol SARS-CoV-2 (PCR) 08/18/21 07:25 WBC RBC Hgb Hct MCV MCH MCHC RDW Plt Count MPV Neut # (Auto) Lymph # (Auto) [place] # (Auto) Eos # (Auto) Baso # (Auto) Absolute Nucleated RBC Nucleated RBC % Manual Slide Review WBC Morphology Platelet Estimate Platelet Morphology RBC Morph Micro Appear Sodium Potassium Chloride Carbon Dioxide Anion Gap BUN Creatinine Estimated GFR (MDRD) Glucose Lactic Acid Calcium Total Bilirubin AST ALT Alkaline Phosphatase Total Protein Albumin Globulin Albumin/Globulin Ratio Lipase Urine Color Urine Clarity Urine pH Ur Specific [place] Urine Protein Urine Glucose (UA) Urine Ketones Urine Occult Blood Urine Nitrite Urine Bilirubin Urine Urobilinogen Ur Leukocyte Esterase Ur Microscopic Review Urine Culture Comments Urine HCG, Qual Ethyl Alcohol SARS-CoV-2 (PCR) NOT DETECTED - Rads (name of study) CT A/P with IV contrast Radiology: Prelim report reviewed, See rad report PD MEDICAL DECISION MAKING - ED course Complexity details: reviewed old records, reviewed results, re-evaluated patient, considered differential, d/w patient ED course: presents with severe acute abdominal pain, mildly elevated lipase but significant leukocytosis and thrombocytosis. requires repeated doses of dilaudid and zofran for symptom control in ED. CT suspicious for pseudocyst. D/W Dr. Castañeda, asks for GI consult to ascertain whether patient would be appropriate for transfer to higher level of care than [facility]. Call placed to GI at [facility], but call return pending at end of my shift and thus care of patient turned over to Dr. Durán Departure - Departure Disposition: 66 [facility] DC/Xfer Clinical Impression: Pancreatitis, Nausea and vomiting, Intractable abdominal pain, Pancreatic pseudocyst Condition: Stable Discharge Date/Time: 08/18/21 11:53
[2021-08-18] MEDS ORDERED: SODIUM CHLORIDE 0.9% 1,000 ML IV STA (04:26)
[2021-08-18] MEDS ORDERED: HYDROmorphone 1 MG/ML CARPUJECT IVP STA ×4 (04:26→09:52)
[2021-08-18] MEDS ORDERED: ONDANSETRON 4 MG/2 ML VIAL IVP STA (04:26)
[2021-08-18 04:32] LABS: BASOPHILS # (AUTO) 0.1 10^3/uL (0.0-0.1); BASOPHILS % (AUTO) 0.6 %; EOSINOPHILS # (AUTO) 0.2 10^3/uL (0.0-0.7); EOSINOPHILS % (AUTO) 0.8 %; HCT - HEMATOCRIT 37.1 % (37.0-47.0); LYMPHOCYTES # (AUTO) 1.5 10^3/uL (1.5-3.5); LYMPHOCYTES % (AUTO) 8.2 %; MEAN CORPUSCULAR HEMOGLOBIN 34.2 pg (27.0-31.0); MEAN CORPUSCULAR HGB CONC 32.3 g/dL (32.0-36.0); MEAN CORPUSCULAR VOLUME 105.7 fL (81.0-99.0); MEAN PLATELET VOLUME 9.1 fL (7.9-10.8); MONOCYTES # (AUTO) 0.8 10^3/uL (0.0-1.0); MONOCYTES % (AUTO) 4.3 %; NEUTROPHILS # (AUTO) 15.9 10^3/uL (1.5-6.6); RED BLOOD COUNT 3.51 10^6/uL (4.20-5.40); RED CELL DISTRIBUTION WIDTH 14.4 % (12.0-15.0); WHITE BLOOD COUNT 18.7 x10^3/uL (4.8-10.8)
[2021-08-18 04:45] LABS: ALBUMIN/GLOBULIN RATIO 0.8 (1.0-2.2); BILIRUBIN,TOTAL 0.4 mg/dL (0.2-1.0); CALCIUM 8.8 mg/dL (8.5-10.3); CREATININE 0.7 mg/dL (0.4-1.0); POTASSIUM 3.6 mmol/L (3.5-5.0); TOTAL PROTEIN 6.8 g/dL (6.7-8.2)
[2021-08-18 04:48] LABS: PLT - PLATELET COUNT 1059 10^3/uL (130-450); SLIDE REVIEW? Indicated
[2021-08-18 04:49] LABS: PLATELET ESTIMATE, MANUAL INCREASED (>450,000) (NORMAL); PLATELET MORPHOLOGY NORMAL APPEARANCE (NORMAL); RBC MORPHOLOGY (MULTIPLE) NORMAL APPEARANCE (NORMAL); WBC MORPHOLOGY (MULTIPLE) NORMAL APPEARANCE (NORMAL)
[2021-08-18] MEDS ORDERED: IOVERSOL 320 100 ML VIAL IVP ONE ×2 (05:05→05:34)
[2021-08-18 06:51] LABS: BILIRUBIN,URINE NEGATIVE (NEGATIVE); CLARITY,URINE CLEAR (CLEAR); GLUCOSE, URINE (UA) NEGATIVE (NEGATIVE); KETONES,URINE (UA) NEGATIVE (NEGATIVE); LEUKOCYTE ESTERASE, URINE NEGATIVE (NEGATIVE); NITRITE,URINE NEGATIVE (NEGATIVE); OCCULT BLOOD,URINE NEGATIVE (NEGATIVE); PROTEIN,URINE NEGATIVE (NEGATIVE); UROBILINOGEN,URINE 0.2 (NORMAL) E.U./dL (NORMAL)
[2021-08-18 06:53] LABS: HCG UR QUAL NEGATIVE
[2021-08-18] MEDS ORDERED: LACTATED RINGERS 1,000 ML IV STA (07:32)
--- NOTE | 2021-08-18 08:02 | CT Report ---
PROCEDURE: Abdomen/Pelvis W INDICATIONS: abdominal pain CONTRAST: IV CONTRAST: Optiray 320 ml: 100 PO CONTRAST: *NO PO CONTRAST TECHNIQUE: After the administration of intravenous contrast, 5 mm thick sections acquired from the diaphragms to the symphysis. 5 mm thick coronal and sagittal reformats were acquired. For radiation dose reducti on, the following was used: automated exposure control, adjustment of mA and/or kV according to angelica ent size. COMPARISON: 08/08/2021. FINDINGS: Image quality: Excellent. ABDOMEN: Lung bases: Trace pleural effusions, left greater than right, improved compared to the previous ashly dy. Minimal bibasilar atelectasis. Heart size is normal. Solid organs: Liver and spleen are normal in size and enhancement. Gallbladder is unremarkable Romeo iary system is non dilated. Pancreatic edema. No pancreatic necrosis. Small probable pseudocyst, head of pancreas. Previous fluid posterior to the gastric body is now loculated, forming a more mature ps eudocyst, measuring approximately 8.0 x 4.8 cm. There is also fluid tracking along the left paracolic gutter with formation of a probable pseudocyst in the left paracolic gutter measuring approximately 4.9 x 4.2 cm. This collection appears to communicate with the peripancreatic tail fluid. It extends a pproximately 11.6 cm in craniocaudal dimension.. No adrenal nodules. Kidneys demonstrate normal siz e and enhancement, without hydronephrosis. Peritoneum and bowel: Bowel loops demonstrate normal wall thickness and caliber. Improved ascites. N o free air. Nodes and vessels: No retroperitoneal or mesenteric adenopathy by size criteria. Aorta and inferior vena cava are normal in size. Miscellaneous: No ventral hernias. PELVIS: Genitourinary: Bladder wall thickness is normal. Miscellaneous: No inguinal hernias or adenopathy. IUD Bones: No suspicious bony lesions. No vertebral body compression fractures. IMPRESSION: 1. Interval development of a loculated pseudocysts along the posterior gastric body and extending fro m the region of the pancreatic tail inferiorly along the left paracolic gutter. The pseudocyst conditioning coach ior to the gastric body measures 8.0 x 4.8 cm. A pseudocyst in the left paracolic gutter communicates with the fluid extending from the tail of the pancreas. It measures 4.9 x 4.2 cm. 2. Trace pleural effusions, improved. Improved basilar atelectasis. 3. Improved ascites. Findings are concordant with preliminary interpretation provided by [facility]. Reviewed by: Humble Barrios MD on 08/18/2021 7:00 AM [facility] Approved by: Humble Barrios MD on 08/18/2021 7:00 AM [facility] Station ID: [id number]
[2021-08-18] MEDS ORDERED: MAG HYDROX/AL HYDROX/SIMETH 30 ML UDC PO STA (08:56)
[2021-08-18] MEDS ORDERED: LIDOCAINE VISCOUS 2% 15 ML UDC MM STA (08:56)
[2021-08-18] MEDS ORDERED: FAMOTIDINE 20 MG/2 ML VIAL IVP STA (09:52)
[2021-08-18] MEDS ORDERED: DROPERIDOL 5 MG/2 ML VIAL IVP STA (09:52)
--- NOTE | 2021-08-18 09:59 | ED Physician Documentation ---
ED Addendum - Addendum Addendum: 08/18/21 09:56I talked with Dr. Luu on-call gastroenterology at [facility] who did have the images in front of him for review and I discussed the patient's labs and recent course. He states he would not do any drainage of the pseudocyst acutely. He did not feel they were infected as the patient would be extremely sicker if that were the case. He felt the white count and platelets were acute phase reactants from inflammation response. Subsequently the cyst can be evaluated in the next few months if they maintain their size and wall off, than they might be indicated for interventional radiology drainage. At this point they are not drained at all. Dr. Luu said if he had the patient there that he would just be treating for pain medicine hydration and calorie intake as typical pancreatitis and he did not see the need for transfer per se. I reevaluated the patient and she is still having nausea with occasional dry heaving and pain level is increasing again. I will give some more antiemetic and pain medicine and recontact our hospitalist.
[2021-08-18] MEDS ORDERED: ONDANSETRON ODT 4 MG TABLET TL PRN (10:57)
[2021-08-18] MEDS: SODIUM CHLORIDE FLUSH 0.9% 10 ML SYRINGE IVP PRN ×2 (12:25→20:44)
[2021-08-18] MEDS: LACTATED RINGERS 1,000 ML IV SCH ×2 (12:25→22:32)
[2021-08-18] MEDS: PANTOPRAZOLE 40 MG VIAL IVP SCH (12:25)
--- NOTE | 2021-08-18 14:28 | PROVIDER PROGRESS NOTE ---
Subjective - Prog Note Date Prog Note Date: 08/18/21 Prog Note Time: 14:26 - Subjective Pt reports feeling: Improved Subjective: HPI: Ms. Arauz is a 35-year-old with a history of pancreatitis who presented early this morning to the ED via ambulance for extreme, stabbing pain, nausea, and chills, that awoke her from sleep. She vomited once. She notes that this episode is similar to her last admission on 08/06/21 except the pain is currently radiating to the R side, when it was previously focused on the left. She denies drinking alcohol since her discharge on 08/12 and she has not begun taking new medications other than those prescribed, nor has she done any recreational drugs. Her last bowel movement was at 5pm yesterday, it was runny and yellow, which is consistent with her twice daily bowel movements since her discharge. She is currently feeling "groggy", which is common for her after taking zofran. Her pain is currently 4/10 and she describes it as "stabbing". Moving and deep inspiration make it worse. She is also feeling weak. She has had nothing to eat today, but her appetite and intake were normal yesterday and over the last week. Objective - Vital Signs/Intake & Output Vital Signs: Vital Signs x48h Temp Pulse Pulse Resp BP BP Pulse Ox 08/18/21 11:52 36.5 C 79 20 104/79 96 08/18/21 10:00 36.7 C 82 16 112/81 H 95 08/18/21 08:00 81 18 103/68 95 Intake & Output: Intake & Output 08/15/21 08/16/21 08/17/21 08/18/21 23:59 23:59 23:59 23:59 Intake Total 1999 Balance 1999 - Objective General Appearance: positive: No acute distress, Other (Somnolent) Eyes Bilateral: positive: Normal inspection, PERRL, Conjunctivae nml, No scleral icterus ENT: positive: Dry mucous membranes. negative: Purulent nasal drainage, Pharyngeal erythema, Oral lesions Neck: positive: Nml inspection. negative: Lymphadenopathy (R), Lymphadenopathy (L), Stiff neck Respiratory: positive: No respiratory distress, Breath sounds nml. negative: Wheezes, Rales, Rhonchi Cardiovascular: positive: Regular rate & rhythm, No murmur, No gallop Peripheral Pulses: 2+ Radial (R), 2+ Radial (L), 2+ Dorsalis pedis (R), 2+ Dorsalis pedis (L) Abdomen: positive: Nml bowel sounds, Tenderness (Tender to light palpation throughout. Mildly distended and firm, without guarding.). negative: Guarding, Mass Back: positive: Nml inspection Skin: positive: Color nml, Warm, Dry, Other (Bruising on L distal dorsolateral forearm and L AC consistent with failed IV start.) Extremities: positive: Full ROM, No pedal edema Neurologic/Psychiatric: positive: Oriented x3 (Alert to voice. Occasionally nodding off.), CN's nml (2-12). negative: Facial droop, Slurred/abnml speech - Lab Results Fish Bones: 08/18/21 04:10 08/18/21 04:10 Other Labs: Lab Results x24hrs 08/18/21 08/18/21 08/18/21 Range/Units 11:30 07:25 06:45 WBC (4.8-10.8) x10^3/uL RBC (4.20-5.40) 10^6/uL Hgb (12.0-16.0) g/dL Hct (37.0-47.0) % MCV (81.0-99.0) fL MCH (27.0-31.0) pg MCHC (32.0-36.0) g/dL RDW (12.0-15.0) % Plt Count (130-450) 10^3/uL MPV (7.9-10.8) fL Neut # (Auto) (1.5-6.6) 10^3/uL Lymph # (Auto) (1.5-3.5) 10^3/uL Floyd # (Auto) (0.0-1.0) 10^3/uL Eos # (Auto) (0.0-0.7) 10^3/uL Baso # (Auto) (0.0-0.1) 10^3/uL Absolute Nucleated RBC x10^3/uL Nucleated RBC % /100WBC Manual Slide Review WBC Morphology (NORMAL) Platelet Estimate (NORMAL) Platelet Morphology (NORMAL) RBC Morph Micro Appear (NORMAL) Sodium (135-145) mmol/L Potassium (3.5-5.0) mmol/L Chloride (101-111) mmol/L Carbon Dioxide (21-32) mmol/L Anion Gap (6-13) BUN (6-20) mg/dL Creatinine (0.4-1.0) mg/dL Estimated GFR (MDRD) (>89) Glucose (70-100) mg/dL Lactic Acid (0.5-2.2) mmol/L Calcium (8.5-10.3) mg/dL Total Bilirubin (0.2-1.0) mg/dL AST (10-42) IU/L ALT (10-60) IU/L Alkaline Phosphatase (42-121) IU/L Troponin I High Sens 2.6 (2.3-14.8) ng/L Total Protein (6.7-8.2) g/dL Albumin (3.2-5.5) g/dL Globulin (2.1-4.2) g/dL Albumin/Globulin Ratio (1.0-2.2) Lipase (22-51) U/L Urine Color Urine Clarity (CLEAR) Urine pH (5.0-7.5) PH Ur Specific Ethel (1.002-1.030) Urine Protein (NEGATIVE) mg/dL Urine Glucose (UA) (NEGATIVE) mg/dL Urine Ketones (NEGATIVE) mg/dL Urine Occult Blood (NEGATIVE) Urine Nitrite (NEGATIVE) Urine Bilirubin (NEGATIVE) Urine Urobilinogen (NORMAL) E.U./dL Ur Leukocyte Esterase (NEGATIVE) Ur Microscopic Review Urine Culture Comments Urine HCG, Qual NEGATIVE Ethyl Alcohol mg/dL SARS-CoV-2 (PCR) NOT DETECTED 08/18/21 08/18/21 08/18/21 Range/Units 06:45 05:37 04:10 WBC (4.8-10.8) x10^3/uL RBC (4.20-5.40) 10^6/uL Hgb (12.0-16.0) g/dL Hct (37.0-47.0) % MCV (81.0-99.0) fL MCH (27.0-31.0) pg MCHC (32.0-36.0) g/dL RDW (12.0-15.0) % Plt Count (130-450) 10^3/uL MPV (7.9-10.8) fL Neut # (Auto) (1.5-6.6) 10^3/uL Lymph # (Auto) (1.5-3.5) 10^3/uL Floyd # (Auto) (0.0-1.0) 10^3/uL Eos # (Auto) (0.0-0.7) 10^3/uL Baso # (Auto) (0.0-0.1) 10^3/uL Absolute Nucleated RBC x10^3/uL Nucleated RBC % /100WBC Manual Slide Review WBC Morphology (NORMAL) Platelet Estimate (NORMAL) Platelet Morphology (NORMAL) RBC Morph Micro Appear (NORMAL) Sodium (135-145) mmol/L Potassium (3.5-5.0) mmol/L Chloride (101-111) mmol/L Carbon Dioxide (21-32) mmol/L Anion Gap (6-13) BUN (6-20) mg/dL Creatinine (0.4-1.0) mg/dL Estimated GFR (MDRD) (>89) Glucose (70-100) mg/dL Lactic Acid 0.7 (0.5-2.2) mmol/L Calcium (8.5-10.3) mg/dL Total Bilirubin (0.2-1.0) mg/dL AST (10-42) IU/L ALT (10-60) IU/L Alkaline Phosphatase (42-121) IU/L Troponin I High Sens (2.3-14.8) ng/L Total Protein (6.7-8.2) g/dL Albumin (3.2-5.5) g/dL Globulin (2.1-4.2) g/dL Albumin/Globulin Ratio (1.0-2.2) Lipase (22-51) U/L Urine Color YELLOW Urine Clarity CLEAR (CLEAR) Urine pH 6.0 (5.0-7.5) PH Ur Specific E[place] <=1.005 (1.002-1.030) Urine Protein NEGATIVE (NEGATIVE) mg/dL Urine Glucose (UA) NEGATIVE (NEGATIVE) mg/dL Urine Ketones NEGATIVE (NEGATIVE) mg/dL Urine Occult Blood NEGATIVE (NEGATIVE) Urine Nitrite NEGATIVE (NEGATIVE) Urine Bilirubin NEGATIVE (NEGATIVE) Urine Urobilinogen 0.2 (NORMAL) (NORMAL) E.U./dL Ur Leukocyte Esterase NEGATIVE (NEGATIVE) Ur Microscopic Review NOT INDICATED Urine Culture Comments NOT INDICATED Urine HCG, Qual Ethyl Alcohol < 5.0 mg/dL SARS-CoV-2 (PCR) 08/18/21 08/18/21 Range/Units 04:10 04:10 WBC 18.7 H (4.8-10.8) x10^3/uL RBC 3.51 L (4.20-5.40) 10^6/uL Hgb 12.0 (12.0-16.0) g/dL Hct 37.1 (37.0-47.0) % MCV 105.7 H (81.0-99.0) fL MCH 34.2 H (27.0-31.0) pg MCHC 32.3 (32.0-36.0) g/dL RDW 14.4 (12.0-15.0) % Plt Count 1059 H* (130-450) 10^3/uL MPV 9.1 (7.9-10.8) fL Neut # (Auto) 15.9 H (1.5-6.6) 10^3/uL Lymph # (Auto) 1.5 (1.5-3.5) 10^3/uL Floyd # (Auto) 0.8 (0.0-1.0) 10^3/uL Eos # (Auto) 0.2 (0.0-0.7) 10^3/uL Baso # (Auto) 0.1 (0.0-0.1) 10^3/uL Absolute Nucleated RBC 0.00 x10^3/uL Nucleated RBC % 0.0 /100WBC Manual Slide Review Indicated WBC Morphology NORMAL APPEARANCE (NORMAL) Platelet Estimate INCREASED (>450,000) (NORMAL) Platelet Morphology NORMAL APPEARANCE (NORMAL) RBC Morph Micro Appear NORMAL APPEARANCE (NORMAL) Sodium 137 (135-145) mmol/L Potassium 3.6 (3.5-5.0) mmol/L Chloride 102 (101-111) mmol/L Carbon Dioxide 25 (21-32) mmol/L Anion Gap 10.0 (6-13) BUN 5 L (6-20) mg/dL Creatinine 0.7 (0.4-1.0) mg/dL Estimated GFR (MDRD) 96 (>89) Glucose 150 H (70-100) mg/dL Lactic Acid (0.5-2.2) mmol/L Calcium 8.8 (8.5-10.3) mg/dL Total Bilirubin 0.4 (0.2-1.0) mg/dL AST 20 (10-42) IU/L ALT 10 (10-60) IU/L Alkaline Phosphatase 100 (42-121) IU/L Troponin I High Sens (2.3-14.8) ng/L Total Protein 6.8 (6.7-8.2) g/dL Albumin 3.0 L (3.2-5.5) g/dL Globulin 3.8 (2.1-4.2) g/dL Albumin/Globulin Ratio 0.8 L (1.0-2.2) Lipase 169 H (22-51) U/L Urine Color Urine Clarity (CLEAR) Urine pH (5.0-7.5) PH Ur Specific Ethel (1.002-1.030) Urine Protein (NEGATIVE) mg/dL Urine Glucose (UA) (NEGATIVE) mg/dL Urine Ketones (NEGATIVE) mg/dL Urine Occult Blood (NEGATIVE) Urine Nitrite (NEGATIVE) Urine Bilirubin (NEGATIVE) Urine Urobilinogen (NORMAL) E.U./dL Ur Leukocyte Esterase (NEGATIVE) Ur Microscopic Review Urine Culture Comments Urine HCG, Qual Ethyl Alcohol mg/dL SARS-CoV-2 (PCR) Assessment/Plan - Problem List (1) Intractable abdominal pain Impression: Due to pancreatitis and pseudocysts. Presented with 10/10, stabbing pain limiting movement and deep inspiration. Pain well controlled (now 4/10) with 1mg hydromorphone IVP q2 hr and acetaminophen 650 mg q 4 hr. Will continue to monitor. (2) Pancreatitis Impression: This is her 3rd hospitalization for pancreatitis flare. Initial lipase 169. CT read notes 3 pseudocysts. Per GI consult, leukocytosis and thrombocytosis are consistent with non-infectious, necrotic pathology. Started bowel rest and 100 mL LR per hr maintenance fluids. Will continue to monitor for signs of infection. Qualifiers: Chronicity: acute Pancreatitis type: unspecified pancreatitis type Acute pancreatitis complication: uninfected necrosis Qualified Code(s): K85.91 - Acute pancreatitis with uninfected necrosis, unspecified (3) Pancreatic pseudocyst Impression: As above. Per surgical consult, pseudocyst non-operable at this time. (5) Nausea and vomiting Impression: Vomited once prior to arrival in ED. Bilious, per pt. Nausea well controlled on Zofran. Qualifiers: Vomiting type: bilious vomiting Qualified Code(s): R11.14 - Bilious vomiting
--- NOTE | 2021-08-18 16:10 | HISTORY & PHYSICAL EXAMINATION ---
Chief Complaint - Chief Complaint Chief Complaint: RUQ abd pain History of Present Illness - Admitted From Admitted From:: home - History Obtained From Records Reviewed: [facility] History obtained from: Dr. Durán and patient Exam Limitations: none - History of Present Illness HPI Comment/Other: Ms. Arauz is a 35-year-old with a history of pancreatitis who presented early this morning to the ED via ambulance for extreme, stabbing pain, nausea, and chills, that awoke her from sleep at 1 am. She vomited once. She notes that this episode is similar to her last admission on 08/06/21 for pancreatitis except the pain is currently radiating to the R side, when it was previously focused on the left. She denies drinking alcohol since her discharge on 08/12 and she has not begun taking new medications other than those prescribed, nor has she done any recreational drugs. Her last bowel movement was at 5pm yesterday, it was runny and yellow, which is consistent with her twice daily bowel movements since her discharge. She is currently feeling "groggy", which is common for her after taking zofran. Her pain is currently 4/10 and she describes it as "stabbing". Moving and deep inspiration make it worse. She is also feeling weak. She has had nothing to eat today, but her appetite and intake were normal yesterday and over the last week. No fever, cp, sob, cough. 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 father is ~58 and she doesn't know him. 2 sisters healthy without thyroid, cancer, CAD, HTN, mental illness. 2 children healthy Living arrangement: At home Living Situation: With family Social History Notes: She previously drank alcohol on a consistent basis but now reports 1-2 beverages a week. Her last drink was 08/06/21. She smokes a couple cigarettes a day and has been doing so for the past 16 years. 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 No hx of cocaine, heroin, LSD, speed. She has a new SO for the last year. - Substance History Use: Uses substance without health or social issues: Tobacco Abuse: Recurrent use of substance despite neg consequences: Alcohol Dependence: Experiences withdrawal or developed tolerances: NONE - POLST Patient has POLST: No POLST Status: Full Code Meds/Allgy - Home Medications Home Medications: Ambulatory Orders Medication Instructions Recorded Confirmed Escitalopram Oxalate 20 mg PO DAILY #30 tablet 08/12/21 08/18/21 Thiamine [Vitamin B-1] 100 mg PO DAILY #30 tablet 08/12/21 08/18/21 - Allergies Allergies/Adverse Reactions: Allergies Allergy/AdvReac Type Severity Reaction Status Date / Time No Known Drug Allergies Allergy Verified 08/18/21 04:18 Review of Systems - Constitutional Constitutional: reports: Fatigue, Chills (At onset of pain. Not current.), Weakness. denies: Fever - Eyes Eyes: denies: Vision loss - Ears, Nose & Throat Ears, Nose & Throat: denies: Vertigo, Nasal discharge, Nasal congestion, Postnasal drainage, Sore throat - Cardiovascular Cariovascular: denies: Chest pain, Lightheadedness, Syncope - Respiratory Respiratory: denies: Cough, SOB at rest - Gastrointestinal Gastrointestinal: reports: Abdominal pain, Abdominal distention, Nausea, Vomiting. denies: Constipation, Change in bowel habits, Black stools, Bloody stools - Genitourinary Genitourinary: denies: Dysuria, Frequency, Urgency, Flank pain - Integumentary Integumentary: denies: Rash - Neurological Neurological: reports: General weakness. denies: Headache, Dizziness, Numbness - Hematologic/Lymphatic Hematologic/Lymphatic: reports: Bruising (On left arm due to IV start attempts) Prior Level of Functionality: She works full-time. Has a 9 and 7-year-old at home. She and daughters live with mom/stepdad. No durable medical equipment. Pays her own bills, cleans, cooks, drives Exam - Vital Signs Reviewed Vital Signs: Yes Vital Signs: Vital Signs x48h Temp Pulse Pulse Pulse Resp BP BP 08/18/21 15:45 37.1 C 91 16 128/85 H 08/18/21 11:52 36.5 C 79 20 104/79 08/18/21 10:00 36.7 C 82 16 112/81 H Pulse Ox 08/18/21 15:45 96 08/18/21 11:52 96 08/18/21 10:00 95 - Physical Exam General Appearance: positive: No acute distress, Other (Somnolent. Alert to voice but occasionally nodding off.) Eyes Bilateral: positive: Normal inspection, PERRL, EOMI, Conjunctivae nml, No scleral icterus ENT: positive: ENT inspection nml Neck: positive: No JVD, Trachea midline. negative: Lymphadenopathy (R), Lymphadenopathy (L), Stiff neck Respiratory: positive: Chest non-tender, Breath sounds nml. negative: Wheezes, Rales, Rhonchi Cardiovascular: positive: Regular rate & rhythm, No murmur, No gallop Peripheral Pulses: positive: 2+ Abdomen: positive: Nml bowel sounds, Tenderness (Throughout.), Other (Slightly distended. Firm but not rigid.). negative: Guarding, Mass Back: positive: Nml inspection Skin: positive: Color nml, Warm, Dry, Other (Healing bruises on L wrist and AC. Striae on abdomen. Vertical scar on R mid/low back.) Extremities: positive: Full ROM, No pedal edema Neurologic/Psychiatric: positive: Oriented x3, CN's nml (2-12) (Grossly). negative: Facial droop, Slurred/abnml speech Conclusion/Plan - Problem List (1) Intractable abdominal pain Conclusion/Plan: Due to pancreatitis and pseudocysts. Presented with 10/10, stabbing pain limiting movement and deep inspiration. Pain well controlled (now 4/10) with 1mg hydromorphone IVP q2 hr and acetaminophen 650 mg q 4 hr. Will continue to monitor. (2) Pancreatitis Conclusion/Plan: This is her 3rd hospitalization for pancreatitis flare. Initial lipase 169. CT read notes 3 pseudocysts. Per GI consult, leukocytosis and thrombocytosis are consistent with non-infectious, necrotic pathology. Started bowel rest and 100 mL LR per hr maintenance fluids. Will continue to monitor for signs of infection. At this time we are not instituting antibiotics. Qualifiers: Chronicity: acute Pancreatitis type: unspecified pancreatitis type Acute pancreatitis complication: uninfected necrosis Qualified Code(s): K85.91 - Acute pancreatitis with uninfected necrosis, unspecified (3) Pancreatic pseudocyst Conclusion/Plan: As above. Per surgical consult, pseudocyst non-operable at this time. The waiting period is up to 6 weeks as we wait for the pseudocyst to "develop a shell". Interventional radiology should then be consulted. (4) Leukocytosis Conclusion/Plan: Per GI consult, etiology is likely non-infectious. Will continue to monitor for signs of infection. (5) Nausea and vomiting Conclusion/Plan: Due to pancreatitis and pseudocysts. Presented with 10/10, stabbing pain limiting movement and deep inspiration. Pain well controlled (now 4/10) with 1mg hy Vomited once prior to arrival in ED. Bilious, per pt. Nausea well controlled on Zofran. Qualifiers: Vomiting type: bilious vomiting Qualified Code(s): R11.14 - Bilious vomiting - Lab Results Lab results reviewed: Yes Reynaldo Bones: 08/18/21 04:10 08/18/21 04:10 - Diagnostic Imaging Results Diagnostic Imaging Results: positive: Final report reviewed Core Measures - Anticipated LOS I expect patient to be DC'd or transferred within 96 hours.: Yes - DVT/VTE - Prophylaxis VTE/DVT Device ordered at admit?: Yes
[2021-08-18] MEDS: SODIUM CHLORIDE FLUSH 0.9% 10 ML SYRINGE IVP SCH (16:31)
[2021-08-18] MEDS: HYDROmorphone 1 MG/ML CARPUJECT IVP PRN ×3 (16:31→20:43)
--- NOTE | 2021-08-18 18:12 | CONSULTATION NOTE ---
Referring Provider Name of Referring Provider:: Mamie Reese MD Consult Date: 08/18/21 Chief Complaint - Chief Complaint Chief Complaint: abdominal pain, n/v History of Present Illness - History of Present Illness HPI Comment/Other: Pt is a 35 yo F with recent hx acute pancreatitis who presents with worsening abdominal pain and n/v. Pain was 10/10 on presentation, now well-controlled a round 410. N/V also subsided. CT scan obtained showing multiple new peripancreatic fluid collections c/w pseudocysts for which general surgery was consulted. No necrosis on CT, no free air, no gas in fluid collections. Currently HDS, afebrile. Labs notable for WBC 18.7, Plts 1059; lactate 0.7, Cr 0.7. 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 Living Situation: With family Social History Notes: She previously drank alcohol on a consistent basis but now reports 1-2 beverages a week. She smokes a couple cigarettes a day and has been doing so for the past 16 years. - POLST Patient has POLST: No POLST Status: Full Code Meds/Allgy - Home Medications Home Medications: Ambulatory Orders Medication Instructions Recorded Confirmed Escitalopram Oxalate 20 mg PO DAILY #30 tablet 08/12/21 08/18/21 Thiamine [Vitamin B-1] 100 mg PO DAILY #30 tablet 08/12/21 08/18/21 - Allergies Allergies/Adverse Reactions: Allergies Allergy/AdvReac Type Severity Reaction Status Date / Time No Known Drug Allergies Allergy Verified 08/18/21 04:18 Review of Systems - Constitutional Constitutional: reports: Malaise - Gastrointestinal Gastrointestinal: reports: Abdominal pain, Nausea, Vomiting - All Other Systems All Other Systems: reports: Reviewed and negative Exam - Vital Signs Reviewed Vital Signs: Yes Vital Signs: Vital Signs x48h Temp Pulse Pulse Resp BP Pulse Ox 08/18/21 15:45 37.1 C 91 16 128/85 H 96 08/18/21 11:52 36.5 C 79 20 104/79 96 - Physical Exam General Appearance: positive: No acute distress, Other (sleeping comfortably) Eyes Bilateral: positive: EOMI Respiratory: positive: No respiratory distress Cardiovascular: positive: Regular rate & rhythm Abdomen: positive: Other (soft, non-distended, mildly TTP in epigastrium and RUQ; rest of abdomen non-tender, no rebound or guarding) Skin: positive: Warm, Dry Extremities: positive: No pedal edema Neurologic/Psychiatric: positive: Oriented x3, Mood/affect nml Conclusion and Plan - Lab Results Laboratory Results 08/18/21 12:34: Nasal Screen MRSA (PCR) NEGATIVE 08/18/21 11:30: Troponin I High Sens 2.6 08/18/21 07:25: SARS-CoV-2 (PCR) NOT DETECTED 08/18/21 06:45: Urine HCG, Qual NEGATIVE 08/18/21 06:45: Urine Color YELLOW, Urine Clarity CLEAR, Urine pH 6.0, Ur Specific [place] <=1.005, Urine Protein NEGATIVE, Urine Glucose (UA) NEGATIVE, Urine Ketones NEGATIVE, Urine Occult Blood NEGATIVE, Urine Nitrite NEGATIVE, Urine Bilirubin NEGATIVE, Urine Urobilinogen 0.2 (NORMAL), Ur Leukocyte Esterase NEGATIVE, Ur Microscopic Review NOT INDICATED, Urine Culture Comments NOT INDICATED 08/18/21 05:37: Lactic Acid 0.7 08/18/21 04:10: Ethyl Alcohol < 5.0 08/18/21 04:10: Sodium 137, Potassium 3.6, Chloride 102, Carbon Dioxide 25, Anion Gap 10.0, BUN 5 L, Creatinine 0.7, Estimated GFR (MDRD) 96, Glucose 150 H, Calcium 8.8, Total Bilirubin 0.4, AST 20, ALT 10, Alkaline Phosphatase 100, Total Protein 6.8, Albumin 3.0 L, Globulin 3.8, Albumin/Globulin Ratio 0.8 L, Lipase 169 H 08/18/21 04:10: WBC 18.7 H, RBC 3.51 L, Hgb 12.0, Hct 37.1, MCV 105.7 H, MCH 34.2 H, MCHC 32.3, RDW 14.4, Plt Count 1059 H*, MPV 9.1, Neut # (Auto) 15.9 H, Lymph # (Auto) 1.5, [place] # (Auto) 0.8, Eos # (Auto) 0.2, Baso # (Auto) 0.1, Absolute Nucleated RBC 0.00, Nucleated RBC % 0.0, Manual Slide Review Indicated, WBC Morphology NORMAL APPEARANCE, Platelet Estimate INCREASED (>450,000), Platelet Morphology NORMAL APPEARANCE, RBC Morph Micro Appear NORMAL APPEARANCE - Diagnostic Imaging Results Diagnostic Imaging Results: positive: See rad report (fluid sondra'ns in head of panc, posterior to stomach, and in L paracolic gutter c/w early panc pseudocysts; no gas in collections, no panc necrosis) - Plan Plan: 35 yo F with recent acute pancreatitis, now found to have pancreatic pseudocysts ; p/w n/v and abd pain. - agree with GI, elevated WBC and plts likely acute phase reactants as pt is not clinically septic in appearance and no gas in collections on CT - if pt becomes septic, please notify surgeon contact center representative immediately as this may warrant IR drainage of collections - possible that fluid collections are contributing to n/v, especially the collection posterior to the stomach - would wait 6 wks prior to considering any surgical/endoscopic intervention to allow the pseudocyst wall to mature; also many collections resolve without intervention as well - if symptoms persist would re-image at that point prior to intervention (likely endoscopic or surgical cyst-gastrostomy) Jacob Ace MD General Surgery
[2021-08-18] MEDS: ONDANSETRON 4 MG/2 ML VIAL IVP PRN (18:35)
[2021-08-18 18:59] LABS: MUDS CUTOFF CONCENTRATIONS CUTOFF CONC BELOW:
[2021-08-18 19:17] LABS: AMPHETAMINE SCREEN,URINE NEGATIVE (NEGATIVE); BARBITURATE SCREEN,UR NEGATIVE (NEGATIVE); BENZODIAZEPINES SCREEN, URINE NEGATIVE (NEGATIVE); COCAINE SCREEN URINE NEGATIVE (NEGATIVE); METHADONE SCREEN, URINE NEGATIVE (NEGATIVE); METHAMPHETAMINES SCREEN, URINE NEGATIVE (NEGATIVE); OPIATE SCREEN, URINE POSITIVE (NEGATIVE); OXYCODONE SCREEN, URINE NEGATIVE (NEGATIVE); PROPOXYPHENE SCREEN, URINE NEGATIVE (NEGATIVE); THC CANNABINOID SCREEN, URINE POSITIVE (NEGATIVE); TRICYCLIC ANTIDEPRESSANT,URINE NN (NEGATIVE)
[2021-08-18] MEDS: oxyCODONE 5 MG TABLET PO PRN (22:32)
[2021-08-18] MEDS: ACETAMINOPHEN 325 MG TABLET PO PRN (22:33)
[2021-08-19] MEDS: HYDROmorphone 1 MG/ML CARPUJECT IVP PRN ×3 (00:13→10:43)
[2021-08-19] MEDS: SODIUM CHLORIDE FLUSH 0.9% 10 ML SYRINGE IVP SCH ×3 (01:38→20:06)
[2021-08-19] MEDS: ACETAMINOPHEN 325 MG TABLET PO PRN ×3 (05:05→20:05)
[2021-08-19] MEDS: oxyCODONE 5 MG TABLET PO PRN (05:05)
[2021-08-19 05:14] LABS: BASOPHILS # (AUTO) 0.1 10^3/uL (0.0-0.1); BASOPHILS % (AUTO) 1.2 %; EOSINOPHILS # (AUTO) 0.3 10^3/uL (0.0-0.7); EOSINOPHILS % (AUTO) 3.5 %; HCT - HEMATOCRIT 34.3 % (37.0-47.0); HGB - HEMOGLOBIN 10.8 g/dL (12.0-16.0); LYMPHOCYTES # (AUTO) 2.2 10^3/uL (1.5-3.5); LYMPHOCYTES % (AUTO) 29.1 %; MEAN CORPUSCULAR HEMOGLOBIN 33.2 pg (27.0-31.0); MEAN CORPUSCULAR HGB CONC 31.5 g/dL (32.0-36.0); MEAN CORPUSCULAR VOLUME 105.5 fL (81.0-99.0); MEAN PLATELET VOLUME 9.4 fL (7.9-10.8); MONOCYTES # (AUTO) 0.7 10^3/uL (0.0-1.0); MONOCYTES % (AUTO) 9.1 %; NEUTROPHILS # (AUTO) 4.1 10^3/uL (1.5-6.6); NEUTROPHILS % (AUTO) 55.9 %; PLT - PLATELET COUNT 759 10^3/uL (130-450); RED BLOOD COUNT 3.25 10^6/uL (4.20-5.40); RED CELL DISTRIBUTION WIDTH 14.6 % (12.0-15.0); WHITE BLOOD COUNT 7.4 x10^3/uL (4.8-10.8)
[2021-08-19] MEDS: ONDANSETRON 4 MG/2 ML VIAL IVP PRN ×2 (05:20→15:12)
[2021-08-19 05:29] LABS: ALBUMIN 2.5 g/dL (3.2-5.5); ALBUMIN/GLOBULIN RATIO 0.8 (1.0-2.2); BILIRUBIN,TOTAL 0.4 mg/dL (0.2-1.0); CALCIUM 8.4 mg/dL (8.5-10.3); CREATININE 0.6 mg/dL (0.4-1.0); POTASSIUM 3.8 mmol/L (3.5-5.0); TOTAL PROTEIN 5.5 g/dL (6.7-8.2)
[2021-08-19] MEDS: SODIUM CHLORIDE FLUSH 0.9% 10 ML SYRINGE IVP PRN (07:07)
[2021-08-19] MEDS: LACTATED RINGERS 1,000 ML IV SCH ×2 (07:07→18:50)
[2021-08-19] MEDS: PANTOPRAZOLE 40 MG VIAL IVP SCH (07:07)
--- NOTE | 2021-08-19 08:16 | PHARMACY PROGRESS NOTE ---
- Best Possible Medication History Admit Date and Time: 08/18/21 1036 Processed by: Pharmacy Medication History completed: Yes Secondary Source(s): Previous admit records As the person ultimately responsible for medication therapy, providers are able to order a medication from an existing home medication list in [facility] via the "Reconcile Routine" prior to Confirmation of that medication by technical support internship. Such practice is discouraged except when the physician, in their clinical judgment, deems that a medical need exists for a medication without regard to previous use.
--- NOTE | 2021-08-19 13:02 | PROVIDER PROGRESS NOTE ---
Subjective - Prog Note Date Prog Note Date: 08/19/21 Prog Note Time: 12:58 - Subjective Pt reports feeling: Improved Subjective: Ms. rAauz is a 35-year-old with a history of pancreatitis who presented early yesterday morning to the ED via ambulance for extreme, stabbing pain, nausea, and chills, that awoke her from sleep at 1 am. She was admitted for intractable pain secondary to pancreatitis/pancreatic pseudocysts. She is currently feeling "much better". Her pain is focused on the right side of her abdomen and she describes it as crampy with an intensity of 4/10. Deep inspiration and palpation make it worse. She has been able to get out of bed and walk through the halls without assistance. She was nauseated around 5 am, received zofran and felt better. Since then, she drank coffee and juice and has been regularly sipping water without any nausea. She is urinating regularly, and describes the urine as clear and light yellow. She denies urinary urgency, and dysuria. She has not had a bowel movement since arriving at the hospital. She denies fever, cp, sob, cough. Current Medications - Current Medications Current Medications: Active Medications Acetaminophen (Acetaminophen 325 Mg Tablet) 650 mg PO Q4HR PRN PRN Reason: Pain 1 to 4 Last Admin: 08/19/21 05:05 Dose: 650 mg Hydromorphone HCl (Hydromorphone 2 Mg Tablet) 2 mg PO Q6HR PRN PRN Reason: Severe Pain Lactated Ringer's (Lr) 1,000 mls @ 100 mls/hr IV .Q10H LUCY Last Admin: 08/19/21 07:07 Dose: 100 mls/hr Ondansetron HCl (Ondansetron Odt 4 Mg Tablet) 4 mg TL Q6HR PRN PRN Reason: Nausea / Vomiting Ondansetron HCl (Ondansetron 4 Mg/2 Ml Vial) 4 mg IVP Q6HR PRN PRN Reason: Nausea / Vomiting Last Admin: 08/19/21 05:20 Dose: 4 mg Pantoprazole Sodium (Pantoprazole 40 Mg Tablet) 40 mg PO QDAC LUCY Sodium Chloride (Sodium Chloride Flush 0.9% 10 Ml Syringe) 10 ml IVP 0100,0900,1700 [facility] Last Admin: 08/19/21 09:33 Dose: Not Given Sodium Chloride (Sodium Chloride Flush 0.9% 10 Ml Syringe) 10 ml IVP PRN PRN PRN Reason: NEEDED PER PROVIDER ORDERS Last Admin: 08/19/21 07:07 Dose: 10 ml Objective - Vital Signs/Intake & Output Reviewed Vital Signs: Yes Vital Signs: Vital Signs x48h Temp Pulse Resp BP Pulse Ox 08/19/21 10:00 36.8 C 99 18 131/87 H 95 Intake & Output: Intake & Output 08/16/21 08/17/21 08/18/21 08/19/21 23:59 23:59 23:59 23:59 Intake Total 3100 908.333 Output Total 350 250 Balance 2750 658.333 - Objective General Appearance: positive: No acute distress, Alert Eyes Bilateral: positive: Normal inspection, PERRL, EOMI ENT: positive: ENT inspection nml, No signs of dehydration Neck: positive: Nml inspection Respiratory: positive: No respiratory distress, Breath sounds nml. negative: Wheezes, Rales, Rhonchi Cardiovascular: positive: Regular rate & rhythm, No murmur, No gallop Abdomen: positive: Nml bowel sounds, Tenderness. negative: Guarding, Mass Back: positive: Nml inspection Skin: positive: Color nml, No rash, Warm, Dry Extremities: positive: Full ROM, No pedal edema Neurologic/Psychiatric: positive: Oriented x3, Motor nml, Mood/affect nml - Lab Results Fish Bones: 08/19/21 04:52 08/19/21 04:52 Other Labs: Lab Results x24hrs 08/19/21 08/19/21 08/19/21 Range/Units 04:52 04:52 04:52 WBC 7.4 (4.8-10.8) x10^3/uL RBC 3.25 L (4.20-5.40) 10^6/uL Hgb 10.8 L (12.0-16.0) g/dL Hct 34.3 L (37.0-47.0) % MCV 105.5 H (81.0-99.0) fL MCH 33.2 H (27.0-31.0) pg MCHC 31.5 L (32.0-36.0) g/dL RDW 14.6 (12.0-15.0) % Plt Count 759 H (130-450) 10^3/uL MPV 9.4 (7.9-10.8) fL Neut # (Auto) 4.1 (1.5-6.6) 10^3/uL Lymph # (Auto) 2.2 (1.5-3.5) 10^3/uL [place] # (Auto) 0.7 (0.0-1.0) 10^3/uL Eos # (Auto) 0.3 (0.0-0.7) 10^3/uL Baso # (Auto) 0.1 (0.0-0.1) 10^3/uL Absolute Nucleated RBC 0.00 x10^3/uL Nucleated RBC % 0.0 /100WBC D-Dimer > 1050.0 H (200.0-255.0) ng/mL Sodium 137 (135-145) mmol/L Potassium 3.8 (3.5-5.0) mmol/L Chloride 102 (101-111) mmol/L Carbon Dioxide 27 (21-32) mmol/L Anion Gap 8.0 (6-13) BUN 6 (6-20) mg/dL Creatinine 0.6 (0.4-1.0) mg/dL Estimated GFR (MDRD) 114 (>89) Glucose 100 (70-100) mg/dL Calcium 8.4 L (8.5-10.3) mg/dL Magnesium 2.0 (1.7-2.8) mg/dL Total Bilirubin 0.4 (0.2-1.0) mg/dL AST 18 (10-42) IU/L ALT 10 (10-60) IU/L Alkaline Phosphatase 83 (42-121) IU/L Total Protein 5.5 L (6.7-8.2) g/dL Albumin 2.5 L (3.2-5.5) g/dL Globulin 3.0 (2.1-4.2) g/dL Albumin/Globulin Ratio 0.8 L (1.0-2.2) Nasal Screen MRSA (PCR) (NEGATIVE) Urine Opiates Screen (NEGATIVE) Ur Oxycodone Screen (NEGATIVE) Urine Methadone Screen (NEGATIVE) Ur Propoxyphene Screen (NEGATIVE) Ur Barbiturates Screen (NEGATIVE) Ur Tricyclics Screen (NEGATIVE) Ur Phencyclidine Scrn (NEGATIVE) Ur Amphetamine Screen (NEGATIVE) U Methamphetamines Scrn (NEGATIVE) U Benzodiazepines Scrn (NEGATIVE) Urine Cocaine Screen (NEGATIVE) U Cannabinoids Screen (NEGATIVE) 08/18/21 08/18/21 Range/Units 18:45 12:34 WBC (4.8-10.8) x10^3/uL RBC (4.20-5.40) 10^6/uL Hgb (12.0-16.0) g/dL Hct (37.0-47.0) % MCV (81.0-99.0) fL MCH (27.0-31.0) pg MCHC (32.0-36.0) g/dL RDW (12.0-15.0) % Plt Count (130-450) 10^3/uL MPV (7.9-10.8) fL Neut # (Auto) (1.5-6.6) 10^3/uL Lymph # (Auto) (1.5-3.5) 10^3/uL [place] # (Auto) (0.0-1.0) 10^3/uL Eos # (Auto) (0.0-0.7) 10^3/uL Baso # (Auto) (0.0-0.1) 10^3/uL Absolute Nucleated RBC x10^3/uL Nucleated RBC % /100WBC D-Dimer (200.0-255.0) ng/mL Sodium (135-145) mmol/L Potassium (3.5-5.0) mmol/L Chloride (101-111) mmol/L Carbon Dioxide (21-32) mmol/L Anion Gap (6-13) BUN (6-20) mg/dL Creatinine (0.4-1.0) mg/dL Estimated GFR (MDRD) (>89) Glucose (70-100) mg/dL Calcium (8.5-10.3) mg/dL Magnesium (1.7-2.8) mg/dL Total Bilirubin (0.2-1.0) mg/dL AST (10-42) IU/L ALT (10-60) IU/L Alkaline Phosphatase (42-121) IU/L Total Protein (6.7-8.2) g/dL Albumin (3.2-5.5) g/dL Globulin (2.1-4.2) g/dL Albumin/Globulin Ratio (1.0-2.2) Nasal Screen MRSA (PCR) NEGATIVE (NEGATIVE) Urine Opiates Screen POSITIVE H (NEGATIVE) Ur Oxycodone Screen NEGATIVE (NEGATIVE) Urine Methadone Screen NEGATIVE (NEGATIVE) Ur Propoxyphene Screen NEGATIVE (NEGATIVE) Ur Barbiturates Screen NEGATIVE (NEGATIVE) Ur Tricyclics Screen NN (NEGATIVE) Ur Phencyclidine Scrn NEGATIVE (NEGATIVE) Ur Amphetamine Screen NEGATIVE (NEGATIVE) U Methamphetamines Scrn NEGATIVE (NEGATIVE) U Benzodiazepines Scrn NEGATIVE (NEGATIVE) Urine Cocaine Screen NEGATIVE (NEGATIVE) U Cannabinoids Screen POSITIVE H (NEGATIVE) Assessment/Plan - Problem List (1) Intractable abdominal pain Impression: Pain much improved. Has been no higher than 6/10 today. As low as 4/10. Discontinued IV pain medication and put on oral hydromorphone and acetaminophen. Able to get up unassisted and walk upright, while yesterday had to hunch over due to pain. SOB and nausea improved. Discharge tomorrow if pain still well managed and diet advancement tolerated. (2) Pancreatitis Impression: Pain improving. Tolerating oral hydromorphone. Advancing diet to low-fat, well tolerated on full liquids so far. Ambulating unassisted. Likely discharging in the morning if pain still well controlled on orals. Qualifiers: Chronicity: acute Pancreatitis type: unspecified pancreatitis type Acute pancreatitis complication: uninfected necrosis Qualified Code(s): K85.91 - Acute pancreatitis with uninfected necrosis, unspecified (3) Pancreatic pseudocyst Impression: With nausea controlled and WBC normalizing, infection unlikely. Will continue to monitor. Otherwise, continue plan to follow-up with GI in 6 weeks. (4) Nausea and vomiting Impression: Last dose of zofran 5 am this morning. No nausea since. Full liquids well tolerated. Advanced diet to low-fat. Will continue to monitor. Qualifiers: Vomiting type: bilious vomiting Qualified Code(s): R11.14 - Bilious vomiting (5) Leukocytosis Impression: Resolved. WBC 7.4, down from 18+
[2021-08-19] MEDS: HYDROmorphone 2 MG TABLET PO PRN ×2 (14:24→20:32)
[2021-08-19] MEDS ORDERED: CALAMINE/ZINC OXIDE 177 ML BOTTLE TOP PRN (16:08)
[2021-08-20] MEDS: SODIUM CHLORIDE FLUSH 0.9% 10 ML SYRINGE IVP SCH ×2 (03:16→09:01)
[2021-08-20] MEDS: LACTATED RINGERS 1,000 ML IV SCH (03:16)
[2021-08-20] MEDS: HYDROmorphone 2 MG TABLET PO PRN ×2 (03:16→09:24)
[2021-08-20 05:15] LABS: BASOPHILS % (AUTO) 1.2 %; EOSINOPHILS % (AUTO) 3.5 %; HCT - HEMATOCRIT 34.7 % (37.0-47.0); HGB - HEMOGLOBIN 11.3 g/dL (12.0-16.0); LYMPHOCYTES % (AUTO) 25.9 %; MEAN CORPUSCULAR HEMOGLOBIN 33.5 pg (27.0-31.0); MEAN CORPUSCULAR HGB CONC 32.6 g/dL (32.0-36.0); MEAN PLATELET VOLUME 9.5 fL (7.9-10.8); MONOCYTES % (AUTO) 8.1 %; PLT - PLATELET COUNT 762 10^3/uL (130-450); RED BLOOD COUNT 3.37 10^6/uL (4.20-5.40); RED CELL DISTRIBUTION WIDTH 14.1 % (12.0-15.0); WHITE BLOOD COUNT 6.9 x10^3/uL (4.8-10.8)
[2021-08-20 05:19] LABS: ABNORMAL LYMPHS % (MANUAL) 0 %; BAND NEUTROPHILS % (MANUAL) 0 %
[2021-08-20 05:33] LABS: ALBUMIN 2.7 g/dL (3.2-5.5); ALBUMIN/GLOBULIN RATIO 0.9 (1.0-2.2); ALKALINE PHOSPHATASE 89 IU/L (42-121); ALT ALANINE AMINOTRANSFERASE 12 IU/L (10-60); AST ASPARTATE AMINOTRANSFERASE 19 IU/L (10-42); BILIRUBIN,TOTAL 0.4 mg/dL (0.2-1.0); BUN - BLOOD UREA NITROGEN < 5 mg/dL (6-20); CALCIUM 8.5 mg/dL (8.5-10.3); CARBON DIOXIDE - CO2 27 mmol/L (21-32); CHLORIDE 99 mmol/L (101-111); CREATININE 0.7 mg/dL (0.4-1.0); GFR - MDRD 96 (>89); GLUCOSE 105 mg/dL (70-100); MAGNESIUM 1.9 mg/dL (1.7-2.8); POTASSIUM 3.8 mmol/L (3.5-5.0); SODIUM 135 mmol/L (135-145); TOTAL PROTEIN 5.8 g/dL (6.7-8.2)
[2021-08-20 05:47] LABS: BASOPHILS # (MANUAL) 0.1 10^3/uL (0-0.1); BASOPHILS % (MANUAL) 2 %; DIFFERENTIAL COMMENT MANUAL DIFFERENTIAL; EOSINOPHILS # (MANUAL) 0.3 10^3/uL (0-0.7); LYMPHOCYTES # (MANUAL) 1.7 10^3/uL (1.5-3.5); LYMPHOCYTES % (MANUAL) 25 %; MONOCYTES # (MANUAL) 0.6 10^3/uL (0.0-1.0); NEUTROPHILS # (MANUAL) 4.1 10^3/uL (1.5-6.6); PLATELET ESTIMATE, MANUAL INCREASED (>450,000) (NORMAL); PLATELET MORPHOLOGY NORMAL APPEARANCE (NORMAL); RBC MORPHOLOGY (MULTIPLE) NORMAL APPEARANCE (NORMAL); WBC MORPHOLOGY (MULTIPLE) NORMAL APPEARANCE (NORMAL)
[2021-08-20] MEDS ORDERED: PANTOPRAZOLE 40 MG TABLET PO SCH (07:00)
--- NOTE | 2021-08-20 10:27 | Discharge Plan ---
Discharge Plan Problem Reviewed?: Yes Disposition: Home, Self Care Condition: Fair Prescriptions: HYDROmorphone [Dilaudid] 2 mg PO Q6HR PRN #20 tablet PRN Reason: Severe Pain Prochlorperazine [Compazine] 5 mg PO Q6H #30 tablet Pantoprazole [Protonix] 40 mg PO QDAC #30 tablet Diet: Regular (small low fat 4x/day) Activity Restrictions: Activity as Tolerated (avoid heavy lifting >10 lbs) Shower Restrictions: No Driving Restrictions: No Health Concerns: You had been admitted to the hospital before for pancreatitis due to alcohol abuse. You recovered and had gone home but abdominal pain returned. It was getting worse on your right side. In the emergency room we found you to have cyst that had developed from the inflammation of your previous pancreatitis. You needed to have pain control achieved. We took away any solid food for a day and then gradually reintroduced it. Your pain is adequately controlled right now. Is not completely gone but it is okay. You are able to tolerate regular food and are now ready for discharge. Plan of Treatment: 1. Please see your primary care provider office which is the [facility] in the next 1 to 2 weeks. 2. Your primary care provider needs to refer you for interventional radiology in about 5 to 6 weeks to get the pancreatic cyst range. 3. Make sure that you eat a low-fat diet. Diet needs to be small frequent meals. 4. We are sending you home with Dilaudid, 1 tablet every 6 hours as needed. About 5 days worth. If you need more than that you will need to ask your primary care provider for that. Make sure you do not get constipated and take a stool softener every day or eat plenty of fruits and vegetables or things like prunes. Drink plenty of water every day. 5. We are sending you home temporarily on a stomach acid restorer paper and prints medicine. Again this is strictly to try and reduce the amount of work your stomach and your pancreas have to do when a digest food. Care Goals: To be able to return to normal work duties. To recover completely from the pancreatic pseudocyst and the pancreatitis. Assessment: Patient understands care goals, and promises to follow through. No Smoking: If you smoke, Please STOP! Call for help. Follow-up with: Sylwia Leblanc ARNP [Credentialed Staff Provider] -
--- NOTE | 2021-08-20 10:36 | DISCHARGE SUMMARY ---
Discharge Summary Admit Date: 08/18/21 Discharge Date: 08/20/21 Discharging Provider: Mamie Reese MD Primary Care Provider: DINAH Vidales ([facility]) Code Status: Attempt Resuscitation Condition at Discharge: Fair Discharge Disposition: 01 Home, Self Care - DIAGNOSES Discharge Diagnoses with Status of Each Condition: 1. Intractable abdominal pain 2. Pancreatitis 3. Pancreatic pseudocyst, multiple 4. Nausea and vomiting 5. Leukocytosis, resolved - HPI History of Present Illness: Ms. Arauz is a 35-year-old with a history of pancreatitis who presented early this morning to the ED via ambulance for extreme, stabbing pain, nausea, and chills, that awoke her from sleep at 1 am. She vomited once. She notes that this episode is similar to her last admission on 08/06/21 for pancreatitis except the pain is currently radiating to the R side, when it was previously focused on the left. She denies drinking alcohol since her discharge on 08/12 and she has not begun taking new medications other than those prescribed, nor has she done any recreational drugs. Her last bowel movement was at 5pm yesterday, it was runny and yellow, which is consistent with her twice daily bowel movements since her discharge. She is currently feeling "groggy", which is common for her after taking zofran. Her pain is currently 4/10 and she describes it as "stabbing". Moving and deep inspiration make it worse. She is also feeling weak. She has had nothing to eat today, but her appetite and intake were normal yesterday and over the last week. No fever, cp, sob, cough. 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 The pseudocyst posterior to the gastric body measures 8 x 4.8 cm. A pseudocyst in the left paracolic gutter communicates with the fluid extending from the tail of the pancreas and it measures 4.9 x 4.2 cm. There are trace pleural effusions that have improved from the last time she was in the hospital. Improved ascites. - HOSPITAL COURSE Hospital Course: The patient's main reason for admission was that he intractable nausea and abdominal pain. She received IV fluids for hydration. Antiemetics. Was initially on intravenous opiates and she was gradually transition to p.o. opiates. She was initially n.p.o. and then advance to clear liquids, full liquids and then a regular low-fat diet. By the time of discharge she is tolerating it well. Pain is still approximately a 4 out of 10 but much more controllable. No episodes of nausea or vomiting. Every once while she has sharp stabbing pain in her left upper quadrant. What is been interesting is that her pain is in the right upper quadrant and right mid axillary line not where her pseudocyst are. We are postulated that she may have some enzymatic leakage to the right paracolic gutter causing her pain. There is no evidence of gallstones or sludge in the gallbladder. At discharge she is an awake, alert oriented white female who looks her stated age. Anxious to leave the hospital and is actually asking if she can go back to work. Temperature is 36.8. Pulse is 78. Blood pressure 126/82. Respirations 18. 96% on room air. She is 5 foot 7 inches tall and weighs 74 kg. Neck is supple no JVD. Lungs are clear to auscultation and percussion and she has no increased respiratory effort with speaking, laughing, or walking in the room. She has a regular rate and rhythm. Abdomen is soft. She had some firmness and slight bloating and distention yesterday and that is resolved. Left upper quadrant is mildly achy. Most of her pain in her right upper quadrant and right midabdomen has resolved. Slightly hypoactive bowel sounds. Last bowel movement was August 17. I have asked her to make sure she follows up with her primary care provider [facility] [place] James is to be sent home with her for pain management. She will be picking it up at the [facility]. I have asked her to make sure she watches her diet with regards to low-fat and to avoid constipation from the Dilaudid. In approximately 6 weeks she will need interventional radiology appointment for drainage of the pseudocyst. She should follow up with either general surgery or gastroenterology in the next 2 to 3 weeks to follow-up on the interventional ra diology. - ALLERGIES Allergies/Adverse Reactions: Allergies Allergy/AdvReac Type Severity Reaction Status Date / Time No Known Drug Allergies Allergy Verified 08/18/21 04:18 - MEDICATIONS Home Medications: Ambulatory Orders Medication Instructions Recorded Confirmed Escitalopram Oxalate 20 mg PO DAILY #30 tablet 08/12/21 08/18/21 Thiamine [Vitamin B-1] 100 mg PO DAILY #30 tablet 08/12/21 08/18/21 HYDROmorphone [Dilaudid] 2 mg PO Q6HR PRN #20 tablet 08/20/21 Pantoprazole [Protonix] 40 mg PO QDAC #30 tablet 08/20/21 Prochlorperazine [Compazine] 5 mg PO Q6H #30 tablet 08/20/21 - LABS Result Diagrams: 08/20/21 04:57 08/20/21 04:57
[2021-08-20 11:19] VITALS: BP 128/87
[2021-08-22 12:06] LABS: PATHOLOGIST SLIDE COMMENTS SEE SEPARATE REPORT
== END 2021-08-20 12:05 | disposition home or self-care (01) | DRG 439 ==
LOC: ED 04:05 → MS2 10:36
PROVIDERS: ADMIT Specialist; ATTEND Specialist
DX: K85.91 Acute pancreatitis with uninfected necrosis, unspecified (principal); K86.3 Pseudocyst of pancreas; D72.829 Elevated white blood cell count, unspecified; Z20.822 Contact with and (suspected) exposure to COVID-19; K21.9 Gastro-esophageal reflux disease without esophagitis; F32.A Depression, unspecified; F17.210 Nicotine dependence, cigarettes, uncomplicated
CPT/HCPCS: 36415; 74177; 80053; 80306; 80320; 81003; 81025; 83605; 83690; 83735; 84484; 85025; 85379; 87150; 87635; 96361; 96374; 96375; 96376; 99284; 99285; A9270; J1170; J7120; Q9967; 81001; 87086

== ENCOUNTER 2021-10-05 20:57 | Emergency (ER) | payer MEDICAID ==
--- NOTE | 2021-10-05 21:17 | ED Physician Documentation ---
History of Present Illness - Stated complaint Stated Complaint: ETOH - Chief complaint Chief Complaint: General - Additonal information Additional information: Patient is 35-year-old female presenting to the emergency department with chief complaint of alcohol use. Comes to the emergency department accompanied by her sponsor from [employer]. Reports that she fell off the wagon and had 1 drink earlier this evening. Also states that immediately after arrival to the emergency department she began to experience severe abdominal pain. Reports a history of chronic pancreatitis and pancreatic pseudocyst. Review of Systems Ten Systems: 10 systems reviewed and negative Constitutional: denies: Fever Eyes: denies: Loss of vision Ears: denies: Loss of hearing Nose: denies: Rhinorrhea / runny nose Throat: denies: Dental pain / toothache Cardiac: denies: Chest pain / pressure Respiratory: denies: Dyspnea GI: reports: Abdominal Pain : denies: Dysuria PD PAST MEDICAL HISTORY - Past Medical History Cardiovascular: None Respiratory: None Neuro: None Endocrine/Autoimmune: None GI: GERD, Ulcers, Pancreatitis EPIC APPLICATION COORDINATOR: None : Kidney stones HEENT: None Psych: Depression Musculoskeletal: None Derm: None - Past Surgical History Past Surgical History: Yes /EPIC APPLICATION COORDINATOR: Other (Intervention for staghorn calculi) HEENT: Tonsil/Adenoidectomy - Present Medications Home Medications: Ambulatory Orders Medication Instructions Recorded Confirmed Escitalopram Oxalate 20 mg PO DAILY #30 tablet 08/12/21 08/18/21 Thiamine [Vitamin B-1] 100 mg PO DAILY #30 tablet 08/12/21 08/18/21 HYDROmorphone [Dilaudid] 2 mg PO Q6HR PRN #20 tablet 08/20/21 Pantoprazole [Protonix] 40 mg PO QDAC #30 tablet 08/20/21 Prochlorperazine [Compazine] 5 mg PO Q6H #30 tablet 08/20/21 - Allergies Allergies/Adverse Reactions: Allergies Allergy/AdvReac Type Severity Reaction Status Date / Time No Known Drug Allergies Allergy Verified 10/05/21 21:09 - Social History Does the pt smoke?: Yes Smoking Status: Current every day smoker Does the pt drink ETOH?: No Does the pt have substance abuse?: Yes - Immunizations Immunizations are current?: Yes - POLST Patient has POLST: No POLST Status: Full Code PD ED PE NORMAL - Vitals Vital signs reviewed: Yes - General General: Alert and oriented X 3, Other (Patient smells strongly of alcohol) - HEENT HEENT: Atraumatic - Neck Neck: Supple, no meningeal sign, No bony TTP, No JVD, No bruit - Cardiac Cardiac: RRR, No murmur, No gallop, No rub, Strong equal pulses - Respiratory Respiratory: No respiratory distress, Clear bilaterally - Abdomen Abdomen: Normal bowel sounds, Non tender - Female Female : Deferred - Rectal Rectal: Deferred - Back Back: No CVA TTP, No spinal TTP - Derm Derm: Normal color - Extremities Extremities: No deformity, No edema - Neuro Neuro: Alert and oriented X 3, rn resource nurse 2-12 intact, No motor deficit, No sensory deficit, Normal speech, Other - Psych Psych: Normal mood Results - Vitals Vitals: Vital Signs - 24 hr 10/05/21 10/06/21 10/06/21 21:06 01:00 05:46 Temperature 36.8 C Heart Rate 112 H 88 91 Respiratory 18 16 17 Rate Blood Pressure 119/81 H 121/56 L 100/70 O2 Saturation 98 99 97 Oxygen O2 Source Room air - EKG (time done) 2235 Rate: Rate (enter#) (93) Rhythm: NSR [place]: Normal Intervals: Normal HI, Prolonged QT, QRS normal QRS: Normal Ischemia: Normal ST segments, Non specific changes. No: Hyperacute T waves, T wave inversion Other comments: Other comments (Significant motion artifact) - Labs Labs: Laboratory Tests 10/05/21 10/05/21 10/05/21 21:55 21:55 21:55 WBC 7.2 RBC 4.11 L Hgb 13.8 Hct 40.6 MCV 98.8 MCH 33.6 H MCHC 34.0 RDW 14.0 Plt Count 277 MPV 9.7 Neut # (Auto) 3.5 Lymph # (Auto) 3.3 [place] # (Auto) 0.2 Eos # (Auto) 0.2 Baso # (Auto) 0.0 Absolute Nucleated RBC 0.00 Nucleated RBC % 0.0 Sodium 140 Potassium 4.4 Chloride 105 Carbon Dioxide 22 Anion Gap 13.0 BUN 13 Creatinine 0.7 Estimated GFR (MDRD) 96 Glucose 92 Lactic Acid 2.0 Calcium 9.0 Total Bilirubin 0.5 AST 28 ALT 16 Alkaline Phosphatase 92 Total Protein 7.7 Albumin 4.1 Globulin 3.6 Albumin/Globulin Ratio 1.1 Lipase 66 H Urine HCG, Qual Urine Opiates Screen Ur Oxycodone Screen Urine Methadone Screen Ur Propoxyphene Screen Ur Barbiturates Screen Ur Tricyclics Screen Ur Phencyclidine Scrn Ur Amphetamine Screen U Methamphetamines Scrn U Benzodiazepines Scrn Urine Cocaine Screen U Cannabinoids Screen Ethyl Alcohol 344.6 SARS-CoV-2 (PCR) 10/05/21 10/06/21 22:59 01:24 WBC RBC Hgb Hct MCV MCH MCHC RDW Plt Count MPV Neut # (Auto) Lymph # (Auto) [place] # (Auto) Eos # (Auto) Baso # (Auto) Absolute Nucleated RBC Nucleated RBC % Sodium Potassium Chloride Carbon Dioxide Anion Gap BUN Creatinine Estimated GFR (MDRD) Glucose Lactic Acid Calcium Total Bilirubin AST ALT Alkaline Phosphatase Total Protein Albumin Globulin Albumin/Globulin Ratio Lipase Urine HCG, Qual NEGATIVE Urine Opiates Screen POSITIVE H Ur Oxycodone Screen NEGATIVE Urine Methadone Screen NEGATIVE Ur Propoxyphene Screen NEGATIVE Ur Barbiturates Screen NEGATIVE Ur Tricyclics Screen NEGATIVE Ur Phencyclidine Scrn NEGATIVE Ur Amphetamine Screen NEGATIVE U Methamphetamines Scrn NEGATIVE U Benzodiazepines Scrn NEGATIVE Urine Cocaine Screen NEGATIVE U Cannabinoids Screen POSITIVE H Ethyl Alcohol SARS-CoV-2 (PCR) NOT DETECTED PD MEDICAL DECISION MAKING - ED course Complexity details: reviewed results, d/w patient ED course: Patient is 35-year-old female presenting to the emergency department today initially with chief complaint of alcohol use who subsequently developed abdominal pain upon arrival. She endorsed for past medical history significant for chronic pancreatitis and pancreatic pseudocysts. Initially reported that she "fell off the wagon" and h ad 1 drink earlier today. She smelled strongly of alcohol and demonstrated slurred speech and other findings consistent with acute alcohol intoxication. I did order for comprehensive labs which are within normal limits are nonactionable. Of note her blood ethanol of 344 is inconsistent with her reported history of "[address] drink[address] of the abdomen and pelvis was obtained which demonstrated multiple pancreatic pseudocysts consistent with her history without any other acute surgical or life-threatening intra-abdominal emergency.On reevaluationShe requested evaluation for detox. She denied suicidal or homicidal ideation. She also informed me that she had no ride and no one would be available to bring her home from the emergency department. She was monitored throughout the entirety of my shift and was noted to be resting comfortably. I have placed social work consult on her behalf. At this time I will be signing her out to the oncoming physician, please see their documentation for further detail. Clinical impression, acute alcohol intoxication, alcohol abuse, chronic pancreatitis, pancreatic pseudocyst. Departure - Departure Clinical Impression: Alcohol abuse, Pancreatic pseudocyst, Chronic pancreatitis Instructions: ED Drug Abuse General
[2021-10-05 22:05] LABS: BASOPHILS % (AUTO) 0.6 %; EOSINOPHILS # (AUTO) 0.2 10^3/uL (0.0-0.7); EOSINOPHILS % (AUTO) 2.2 %; HCT - HEMATOCRIT 40.6 % (37.0-47.0); HGB - HEMOGLOBIN 13.8 g/dL (12.0-16.0); LYMPHOCYTES # (AUTO) 3.3 10^3/uL (1.5-3.5); LYMPHOCYTES % (AUTO) 45.6 %; MEAN CORPUSCULAR HEMOGLOBIN 33.6 pg (27.0-31.0); MEAN CORPUSCULAR VOLUME 98.8 fL (81.0-99.0); MEAN PLATELET VOLUME 9.7 fL (7.9-10.8); MONOCYTES # (AUTO) 0.2 10^3/uL (0.0-1.0); MONOCYTES % (AUTO) 2.9 %; NEUTROPHILS # (AUTO) 3.5 10^3/uL (1.5-6.6); NEUTROPHILS % (AUTO) 48.4 %; PLT - PLATELET COUNT 277 10^3/uL (130-450); RED BLOOD COUNT 4.11 10^6/uL (4.20-5.40); WHITE BLOOD COUNT 7.2 x10^3/uL (4.8-10.8)
[2021-10-05] MEDS: HYDROmorphone 1 MG/ML CARPUJECT IVP STA (22:05)
[2021-10-05] MEDS: ONDANSETRON 4 MG/2 ML VIAL IVP STA (22:05)
[2021-10-05] MEDS: SODIUM CHLORIDE 0.9% 1,000 ML IV STA (22:05)
[2021-10-05 22:25] LABS: ALBUMIN 4.1 g/dL (3.2-5.5); ALBUMIN/GLOBULIN RATIO 1.1 (1.0-2.2); BILIRUBIN,TOTAL 0.5 mg/dL (0.2-1.0); CREATININE 0.7 mg/dL (0.4-1.0); ETOH - ETHANOL 344.6 mg/dL; POTASSIUM 4.4 mmol/L (3.5-5.0); TOTAL PROTEIN 7.7 g/dL (6.7-8.2)
[2021-10-05] MEDS ORDERED: IOVERSOL 320 50 ML VIAL ONE (22:55)
[2021-10-05 23:05] LABS: MUDS CUTOFF CONCENTRATIONS CUTOFF CONC BELOW:
[2021-10-05 23:09] LABS: HCG UR QUAL NEGATIVE
[2021-10-05 23:16] LABS: THC CANNABINOID SCREEN, URINE POSITIVE (NEGATIVE)
[2021-10-05 23:17] LABS: AMPHETAMINE SCREEN,URINE NEGATIVE (NEGATIVE); BARBITURATE SCREEN,UR NEGATIVE (NEGATIVE); BENZODIAZEPINES SCREEN, URINE NEGATIVE (NEGATIVE); COCAINE SCREEN URINE NEGATIVE (NEGATIVE); METHADONE SCREEN, URINE NEGATIVE (NEGATIVE); METHAMPHETAMINES SCREEN, URINE NEGATIVE (NEGATIVE); OPIATE SCREEN, URINE POSITIVE (NEGATIVE); OXYCODONE SCREEN, URINE NEGATIVE (NEGATIVE); PROPOXYPHENE SCREEN, URINE NEGATIVE (NEGATIVE); TRICYCLIC ANTIDEPRESSANT,URINE NEGATIVE (NEGATIVE)
[2021-10-05] MEDS: IOVERSOL 320 50 ML VIAL IVP ONE (23:26)
--- NOTE | 2021-10-05 23:54 | CT Report ---
PROCEDURE: Abdomen/Pelvis W INDICATIONS: abd pain, h/o chr pancreatitis, w/ pseudocyst CONTRAST: IV CONTRAST: Optiray 320 ml: 100 PO CONTRAST: *NO PO CONTRAST TECHNIQUE: After the administration of intravenous contrast, 5 mm thick sections acquired from the diaphragms to the symphysis. 5 mm thick coronal and sagittal reformats were acquired. For radiation dose reducti on, the following was used: automated exposure control, adjustment of mA and/or kV according to angelica ent size. COMPARISON: CT abdomen and pelvis 08/18/2021 FINDINGS: Image quality: Excellent. ABDOMEN: Lung bases: Lung bases are clear. Heart size is normal. Solid organs: There is prominent in size. No focal lesion. Gallbladder is unremarkable. Biliary syst em is non dilated. No pancreatic necrosis identified. No pancreatic calcifications. No definite pancreatic ductal dilata tion. Multiple pancreatic fluid collections. -Pancreatic head 2.4 x 2.4 cm, (3/33), previously 1.3 x 1 cm. -Pancreatic neck 2 cm, (3/30), previously 1.4 cm. -Pancreatic body 1.9 cm, (3/29), previously 7.4 x 3.9 cm. -Pancreatic tail 2.3 cm, (3/24), previously 3.6 cm. -Left paracolic gutter 3.5 cm, (3/49), previously 4 cm. No splenomegaly. No adrenal nodules. Kidneys demonstrate normal size and enhancement, without hydron ephrosis. Peritoneum and bowel: Bowel loops demonstrate normal wall thickness and caliber. No free fluid or a ir. Nodes and vessels: No retroperitoneal or mesenteric adenopathy by size criteria. Aorta and inferior vena cava are normal in size. Portal vein and SMV are patent. Miscellaneous: Tiny fat-containing umbilical hernia. PELVIS: Genitourinary: Bladder wall thickness is normal. IUD centered in the uterus. Probable small left cor pus luteum. Miscellaneous: No inguinal hernias or adenopathy. Bones: No suspicious bony lesions. No vertebral body compression fractures. IMPRESSION: 1. Multiple (5) pancreatic pseudocysts. Some increasing and some decreasing in size. 2. No pancreatic necrosis is identified. Reviewed by: Sami Dee MD on 10/05/2021 11:56 PM PDT Approved by: Sami Dee MD on 10/05/2021 11:56 PM PDT Station ID: [id number]
[2021-10-06] MEDS: MAG HYDROX/AL HYDROX/SIMETH 30 ML UDC PO STA (08:15)
[2021-10-06] MEDS: HYDROmorphone 1 MG/ML CARPUJECT IVP STA ×2 (08:17→09:34)
[2021-10-06 08:18] LABS: CALCIUM 8.3 mg/dL (8.5-10.3); CREATININE 0.7 mg/dL (0.4-1.0); ETOH - ETHANOL 100.5 mg/dL; POTASSIUM 3.9 mmol/L (3.5-5.0)
[2021-10-06] MEDS: FAMOTIDINE 20 MG/2 ML VIAL IVP STA (08:22)
--- NOTE | 2021-10-06 09:08 | ED Physician Documentation ---
ED Addendum - Addendum Addendum: I am prescribing a short course of short acting opioid pain medicine for this patient. I reviewed the patient's CAPACITY MANAGER and no concerning findings were noted. I have discussed that the opioids are for short-term therapy only, and will not be refilled from the ED. 10/06/21 09:04 Social work talked with the patient who prefers going home with medication rather than directly to [facility] at this time due to having to make arrangements taking care of her kids at home and some other aspects at home. She was given the phone numbers to call for [facility] as well as a [address] and [place] to have intake interviews when she or if she feels ready for a detox. The patient is complaining of the upper abdominal pain that she feels is pancreatic. She states history of chronic pancreatitis. This certainly could be flaring up right now and I told her we could prescribe some pain medicine for her as well as antiemetics. She does get withdrawal symptoms in the past but no DTs or seizures. I offered medication to help with the withdrawal and she was accepting of that. I discussed with her different options and I opted on phenobarbital regimen over the next 6 days. These medications will get prescribed to [facility] in [place] at the patient's request. She is given doses of pain medicine and initial dose of phenobarb here in the ER to help with symptoms prior to discharge. Disposition: The patient is discharged in stable condition from the ER. Diagnoses: 1. Chronic alcoholism 2. Acute alcohol intoxication 3. Chronic pancreatitis with acute flare exacerbation 4. upper abdominal pain 10/06/21 09:16
[2021-10-06] MEDS: ONDANSETRON 4 MG/2 ML VIAL IVP STA (09:34)
[2021-10-06] MEDS: PHENobarbital 65 MG/ML VIAL IV STA (09:34)
[2021-10-06 09:57] VITALS: BP 124/82
== END 2021-10-06 09:55 | disposition home or self-care (01) ==
LOC: ED 20:57
DX: K86.0 Alcohol-induced chronic pancreatitis (principal); F10.129 Alcohol abuse with intoxication, unspecified; Y90.8 Blood alcohol level of 240 mg/100 ml or more; F17.200 Nicotine dependence, unspecified, uncomplicated
CPT/HCPCS: 36415; 74177; 80048; 80053; 80306; 80320; 81025; 83605; 83690; 85025; 87635; 93005; 96374; 96375; 96376; 99283; 99284; A9270; J1170

== ENCOUNTER 2021-12-03 08:31 | Outpatient (CLI) | payer MEDICAID | END 2021-12-03 08:32 | disposition critical access hospital (66) | LOC: EMS 08:31 | DX: R10.84 Generalized abdominal pain (principal); R07.9 Chest pain, unspecified; R11.2 Nausea with vomiting, unspecified | CPT/HCPCS: A0425; A0427; A0999 ==

== ENCOUNTER 2021-12-03 09:11 | Inpatient (IN) | payer MEDICAID ==
--- NOTE | 2021-12-03 09:34 | ED Physician Documentation ---
PD HPI ABD PAIN - Stated complaint Stated Complaint: ABD PX - Chief complaint Chief Complaint: Abd Pain - History obtained from History obtained from: Patient - History of Present Illness Timing - onset: Yesterday - Additional information Additional information: 35-year-old female with history of alcoholic pancreatitis with pseudocyst formation presents by EMS from home for 1 day of severe generalized, sharp abdominal pain with nausea and vomiting. Symptoms began abruptly yesterday and have been constant since onset. Patient states she try to take her home Phenergan however she continued to vomit, she then tried to take a sublingual tablet of 8 mg Zofran, however she continued to vomit. EMS administered 4 of Zofran and 6 mg of IV morphine in route. Arrival patient states this feels similar to her previous episodes of pancreatitis. She states that she is trying to follow with a composition weatherboard applier for management of her pseudocyst, however she states that her composition weatherboard applier recently left and she does not have a GI doctor at this time. Last alcohol use 2 weeks ago (glass of champagne per pt) Review of Systems Constitutional: denies: Fever, Chills, Myalgias, Fatigue, Weight Loss, Sweats, Reviewed and negative, Other Eyes: denies: Loss of vision, Decreased vision, Photophobia, Discharge, Irritation, Reviewed and negative, Other Ears: denies: Loss of hearing, Ear pain, Drainage/discharge, Tinnitus/ringing, Foreign body, Reviewed and negative, Other Nose: denies: Rhinorrhea / runny nose, Congestion, Epistaxis, Sinus pressure / pain, Foreign Body, Reviewed and negative, Other Throat: denies: Dental pain / toothache, Oral lesions / sores, Sore throat, Swollen tonsils, Swallowed foreign body, Reviewed and negative, Other Cardiac: denies: Chest pain / pressure, Palpitations, Pedal edema, Calf pain, Reviewed and negative, Other Respiratory: denies: Dyspnea, Cough, Hemoptysis, Wheezing, Reviewed and negative, Other GI: reports: Abdominal Pain, Nausea, Vomiting. denies: Constipation, Diarrhea, Hematemesis : denies: Dysuria, Frequency, Hesitancy, Unable to Void, Incontinent, Hematuria, Discharge, LMP, Vaginal bleeding, Irregular menses, Missed period, Now EGA, Control, Hysterectomy, Testicular pain, Testicular mass, Mark Problem, Reviewed and negative, Other Skin: denies: Rash, Lesions, Abrasion (s), Laceration (s), Bite / sting, Reviewed and negative, Other Musculoskeletal: denies: Neck pain, Back pain, Extremity pain, Joint pain, Extremity swelling, Joint swelling, Pain with weight bearing, Reviewed and negative, Other Neurologic: denies: Generalized weakness, Focal weakness, Numbness, Difficulty speaking, Near syncope, Syncope, Seizure, Confused, Altered mental status, Unresponsive, Headache, Head injury, LOC, Reviewed and negative, Other Psychiatric: denies: Depressed, Suicidal, Homicidal, Hallucinations, Delusions, Anxiety, Insomnia, Reviewed and negative, Other PD PAST MEDICAL HISTORY - Past Medical History Past Medical History: Yes Cardiovascular: None Respiratory: None Neuro: None Endocrine/Autoimmune: None GI: GERD, Ulcers, Pancreatitis 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 : Kidney stones HEENT: None Psych: Depression Musculoskeletal: None Derm: None - Past Surgical History Past Surgical History: Yes /INDUSTRIAL TRUCK OPERATOR: Other HEENT: Tonsil/Adenoidectomy - Present Medications Home Medications: Ambulatory Orders Medication Instructions Recorded Confirmed Pantoprazole [Protonix] 40 mg PO QDAC #30 tablet 08/20/21 12/03/21 Prochlorperazine [Compazine] 5 mg PO Q6H #30 tablet 08/20/21 12/03/21 Ondansetron Odt [Zofran] 4 mg TL Q6H PRN #10 tablet 10/06/21 12/03/21 PHENobarbitaL [Phenobarbital] 30 mg PO BID 6 Days #9 tablet 10/06/21 12/03/21 - Allergies Allergies/Adverse Reactions: Allergies Allergy/AdvReac Type Severity Reaction Status Date / Time No Known Drug Allergies Allergy Verified 12/03/21 09:20 - Social History Does the pt smoke?: Yes Smoking Status: Current every day smoker Does the pt drink ETOH?: No Does the pt have substance abuse?: Yes - Immunizations Immunizations are current?: Yes - POLST Patient has POLST: No POLST Status: Full Code PD ED PE NORMAL - Vitals Vital signs reviewed: Yes - General General: Alert and oriented X 3, Well developed/nourished, Other (IN PAIN) - HEENT HEENT: Atraumatic, PERRL, Pharynx benign, Other (DRY MUCOUS MEMBRANES) - Cardiac Cardiac: No murmur, No gallop, No rub, Other (TACHYCARDIA) - Respiratory Respiratory: No respiratory distress, Clear bilaterally - Abdomen Abdomen: Normal bowel sounds, Soft, Non distended, No organomegaly, Other (DIFFUSELY TENDER TO PALPATION WITHOUT REBOUND OR GUARDING) - Female Female : Deferred - Rectal Rectal: Deferred - Back Back: No CVA TTP, No spinal TTP - Derm Derm: Normal color, No rash - Extremities Extremities: No deformity, No tenderness to palpate, Normal ROM s pain - Neuro Neuro: Alert and oriented X 3, fiscal analyst 2-12 intact, No motor deficit, No sensory deficit, Normal speech - Psych Psych: Normal mood, Normal affect Results - Vitals Vitals: Vital Signs - 24 hr 12/03/21 09:17 Temperature 36.5 C Heart Rate 104 H Respiratory 24 Rate Blood Pressure 115/98 H O2 Saturation 99 Oxygen O2 Source Room air - Labs Labs: Laboratory Tests 12/03/21 12/03/21 12/03/21 10:05 10:12 10:12 WBC 6.4 RBC 4.05 L Hgb 13.9 Hct 41.9 MCV 103.5 H MCH 34.3 H MCHC 33.2 RDW 14.8 Plt Count 143 MPV 10.6 Neut # (Auto) 4.7 Lymph # (Auto) 1.2 L [place] # (Auto) 0.5 Eos # (Auto) 0.0 Baso # (Auto) 0.0 Absolute Nucleated RBC 0.00 Nucleated RBC % 0.0 Sodium 136 Potassium 3.5 Chloride 104 Carbon Dioxide 23 Anion Gap 9.0 BUN 7 Creatinine 0.6 Estimated GFR (MDRD) 114 Glucose 118 H Calcium 9.0 Total Bilirubin 1.1 H AST 17 ALT 12 Alkaline Phosphatase 72 Total Protein 7.1 Albumin 3.9 Globulin 3.2 Albumin/Globulin Ratio 1.2 Lipase 33 Urine Color LIGHT YELLOW Urine Clarity CLEAR Urine pH 6.0 Ur Specific [place] <=1.005 Urine Protein NEGATIVE Urine Glucose (UA) NEGATIVE Urine Ketones NEGATIVE Urine Occult Blood NEGATIVE Urine Nitrite NEGATIVE Urine Bilirubin NEGATIVE Urine Urobilinogen 0.2 (NORMAL) Ur Leukocyte Esterase NEGATIVE Urine RBC 0-5 Urine WBC 0-3 Ur Squamous Epith Cells FEW Squamous Urine Bacteria Rare Urine Culture Comments NOT INDICATED PD MEDICAL DECISION MAKING - ED course Complexity details: reviewed old records, re-evaluated patient ED course: Abdominal pain with known history of pancreatitis and pseudocyst. Denies any recent alcohol use. Abdomen is soft, however diffusely tender to palpation. Given the patient's complex abdominal history will repeat CT at this time. CT shows enlarging of the patient's previously seen pseudocyst. Other laboratory work is within normal limits. Patient states that her pain is poorly controlled and she does not feel like she would be able to eat or drink anything. Patient has had to be admitted for intractable nausea and vomiting in the past. Patient requiring additional pain medications. Will admit for further treatment. Departure - Departure Disposition: [address] [facility] DC/Xfer Clinical Impression: Pancreatic pseudocyst/cyst, Intractable abdominal pain Abdominal pain Qualifiers: Abdominal location: generalized Qualified Code(s): R10.84 - Generalized abdominal pain Vomiting Qualifiers: Vomiting type: unspecified Nausea presence: with nausea Qualified Code(s): R11.2 - Nausea with vomiting, unspecified Pancreatitis Qualifiers: Chronicity: acute Pancreatitis type: alcohol induced Acute pancreatitis complication: no infection or necrosis Qualified Code(s): K85.20 - Alcohol induced acute pancreatitis without necrosis or infection Condition: Stable Discharge Date/Time: 12/03/21 12:59
[2021-12-03 10:10] LABS: BILIRUBIN,URINE NEGATIVE (NEGATIVE); GLUCOSE, URINE (UA) NEGATIVE (NEGATIVE); KETONES,URINE (UA) NEGATIVE (NEGATIVE); LEUKOCYTE ESTERASE, URINE NEGATIVE (NEGATIVE); NITRITE,URINE NEGATIVE (NEGATIVE); OCCULT BLOOD,URINE NEGATIVE (NEGATIVE); PROTEIN,URINE NEGATIVE (NEGATIVE); UROBILINOGEN,URINE 0.2 (NORMAL) E.U./dL (NORMAL)
[2021-12-03 10:17] LABS: BASOPHILS % (AUTO) 0.5 %; EOSINOPHILS % (AUTO) 0.6 %; HCT - HEMATOCRIT 41.9 % (37.0-47.0); HGB - HEMOGLOBIN 13.9 g/dL (12.0-16.0); LYMPHOCYTES # (AUTO) 1.2 10^3/uL (1.5-3.5); LYMPHOCYTES % (AUTO) 18.1 %; MEAN CORPUSCULAR HEMOGLOBIN 34.3 pg (27.0-31.0); MEAN CORPUSCULAR HGB CONC 33.2 g/dL (32.0-36.0); MEAN CORPUSCULAR VOLUME 103.5 fL (81.0-99.0); MEAN PLATELET VOLUME 10.6 fL (7.9-10.8); MONOCYTES # (AUTO) 0.5 10^3/uL (0.0-1.0); MONOCYTES % (AUTO) 7.7 %; NEUTROPHILS # (AUTO) 4.7 10^3/uL (1.5-6.6); NEUTROPHILS % (AUTO) 72.9 %; PLT - PLATELET COUNT 143 10^3/uL (130-450); RED BLOOD COUNT 4.05 10^6/uL (4.20-5.40); RED CELL DISTRIBUTION WIDTH 14.8 % (12.0-15.0); WHITE BLOOD COUNT 6.4 x10^3/uL (4.8-10.8)
[2021-12-03 10:20] LABS: CLARITY,URINE CLEAR (CLEAR)
[2021-12-03 10:21] LABS: BACTERIA,URINE Rare /HPF (None Seen); RBC,URINE 0-5 /HPF (0-5); SQUAMOUS EPITHELIAL CELL,UR FEW Squamous (<= Few); WBC,URINE 0-3 /HPF (0-5)
[2021-12-03] MEDS ORDERED: MORPHINE 2 MG/ML CARPUJECT IVP STA ×2 (10:30→12:07)
[2021-12-03 10:34] LABS: ALBUMIN 3.9 g/dL (3.2-5.5); ALBUMIN/GLOBULIN RATIO 1.2 (1.0-2.2); BILIRUBIN,TOTAL 1.1 mg/dL (0.2-1.0); CREATININE 0.6 mg/dL (0.4-1.0); POTASSIUM 3.5 mmol/L (3.5-5.0); TOTAL PROTEIN 7.1 g/dL (6.7-8.2)
--- NOTE | 2021-12-03 10:35 | CT Report ---
PROCEDURE: Abdomen/Pelvis WO INDICATIONS: MIDEPIGASTRIC ABD PAIN, HX PANCREATITIS TECHNIQUE: Noncontrast 5 mm thick sections acquired from the diaphragms to the symphysis. 5 mm coronal and sagi ttal reformats were then performed. For radiation dose reduction, the following was used: automated exposure control, adjustment of mA and/or kV according to patient size. COMPARISON: CT abdomen pelvis 12/13/2021 FINDINGS: Image quality: Excellent. ABDOMEN: Lung bases: Lung bases are clear. Heart size is normal. Solid organs: Liver and spleen are normal in size. Gallbladder is unremarkable there is a focus of low attenuation within the uncinate process measuring 5.6 x 4.7 cm compared to 4.2 x 4.2 cm. There is no ductal dilation. Previous low-attenuation foci within the pancreas are not as well seen on curren t exam and felt left resolved No adrenal nodules. Kidneys are normal in size, without hydronephrosis or nephrolithiasis. Peritoneum and bowel: Unenhanced bowel loops demonstrate normal wall thickness and caliber. No free fluid or air. Nodes and vessels: No retroperitoneal or mesenteric adenopathy by size criteria. Aorta and inferior vena cava are normal in caliber. Miscellaneous: Fat-containing ventral hernia is present. PELVIS: Genitourinary: Bladder wall thickness is normal. IUD is present. Miscellaneous: No inguinal hernias or adenopathy. Bones: No suspicious bony lesions. No vertebral body compression fractures. IMPRESSION: 1. Low-attenuation focus within the uncinate process which has increased compared to prior exam there is persistent appearance of mild surrounding inflammatory change. Overall appearance is suggestive o f pseudocyst. 2. Previous areas of low-attenuation, suggestive of additional pseudocysts, within the pancreas are n ot visualized on current exam. Reviewed by: Rocio Perry MD on 12/03/2021 10:34 AM PDT Approved by: Rocio Perry MD on 12/03/2021 10:34 AM PDT Station ID: [id number]
[2021-12-03] MEDS: LACTATED RINGERS 1,000 ML IV SCH ×2 (11:56→13:27)
[2021-12-03] MEDS: SODIUM CHLORIDE FLUSH 0.9% 10 ML SYRINGE IVP PRN ×2 (13:22→20:52)
[2021-12-03] MEDS: HYDROmorphone 0.5 MG/0.5 ML SYRINGE IVP PRN ×4 (13:22→20:51)
--- NOTE | 2021-12-03 14:54 | PHARMACY PROGRESS NOTE ---
- Best Possible Medication History Admit Date and Time: 12/03/21 1143 Processed by: Nursing Medication History completed: Yes As the person ultimately responsible for medication therapy, providers are able to order a medication from an existing home medication list in [facility] via the "Reconcile Routine" prior to Confirmation of that medication by pharmacy retail support specialist. Such practice is discouraged except when the physician, in their clinical judgment, deems that a medical need exists for a medication without regard to previous use.
[2021-12-03] MEDS: ONDANSETRON 4 MG/2 ML VIAL IVP PRN (15:14)
[2021-12-03] MEDS: NICOTINE 14 MG PATCH TOP SCH (16:05)
[2021-12-03] MEDS: SODIUM CHLORIDE FLUSH 0.9% 10 ML SYRINGE IVP SCH (16:06)
[2021-12-03] MEDS: PROCHLORPERAZINE 10 MG/2 ML VIAL IVP PRN (18:30)
--- NOTE | 2021-12-03 19:05 | HISTORY & PHYSICAL EXAMINATION ---
Chief Complaint - Chief Complaint Chief Complaint: Abd pain, back pain and N/V History of Present Illness - Admitted From Admitted From:: ED - History Obtained From History obtained from: ED provider and the patient - History of Present Illness HPI Comment/Other: This is a 35-year-old white female who is well-known to our service with prior admissions for ankle alcoholic pancreatitis. Patient was last here about 3 months ago, before that 2 months previous. She states that since her last visit she has seen a human resources project coordinator and the plan for managing her pseudocyst is to drain them percutaneously with stents. She has stopped taking in alcohol entirely except she had 1 drink of campaign 2 weeks ago. She got a letter from the human resources project coordinator that he is leaving and handing over his care and she needs to find a new specialist. The patient developed mid back pain yesterday and thought it was muscular. Then after having a light dinner, she started having nausea and vomiting. She tried taking just liquids and crackers and she would vomit everything up. Also her abdominal pain got worse and with these sx she came to the emergency room. She was given antiemetics, iv pain medications and IV fluids. A diet was re- attempted and she vomited it up. A CT of the abdomen and pelvis was done that shows a larger pancreatic pseudocyst than she had 2 months ago. Her lipase level is normal. The ED provider reached out to the Hospitalist team to further manage her intractable nausea and vomiting and abdominal pain related to her pancreatic psedocyst and pancreatitis. History - Past Medical History Cardiovascular: reports: None Respiratory: reports: None Neuro: reports: None Endocrine/Autoimmune: reports: None GI: reports: GERD, Ulcers, Pancreatitis PIPE STRAIGHTENER: reports: None : reports: Kidney stones HEENT: reports: None Psych: reports: Depression Musculoskeletal: reports: None Derm: reports: None MRSA Hx?: No - Past Surgical History /PIPE STRAIGHTENER: reports: Other HEENT: reports: Tonsil/Adenoidectomy - Family & Social History Family History: Mother: Alive and Well Family History Comment/Other: Her mother has history of thyroid disease. Living arrangement: At home Living Situation: With family Social History Notes: She previously drank alcohol on a consistent basis but now barely has any. She smokes a couple cigarettes a day and has been doing so for the past 16 years. She lives with her daughter and with her mother. She works full-time. - Substance History Use: Uses substance without health or social issues: Tobacco - POLST Patient has POLST: No POLST Status: Full Code Meds/Allgy - Home Medications Home Medications: Ambulatory Orders Medication Instructions Recorded Confirmed Pantoprazole [Protonix] 40 mg PO QDAC #30 tablet 08/20/21 12/03/21 Prochlorperazine [Compazine] 5 mg PO Q6H #30 tablet 08/20/21 12/03/21 Ondansetron Odt [Zofran] 4 mg TL Q6H PRN #10 tablet 10/06/21 12/03/21 PHENobarbitaL [Phenobarbital] 30 mg PO BID 6 Days #9 tablet 10/06/21 12/03/21 - Allergies Allergies/Adverse Reactions: Allergies Allergy/AdvReac Type Severity Reaction Status Date / Time No Known Drug Allergies Allergy Verified 12/03/21 09:20 Review of Systems - Gastrointestinal Gastrointestinal: reports: Abdominal pain, Nausea, Vomiting - Musculoskeletal Musculoskeletal: reports: Back pain (She got this with prior pancreatitis attacks also) - All Other Systems All Other Systems: reports: Reviewed and negative Exam - Vital Signs Vital Signs: Vital Signs x48h Temp Pulse Pulse Resp BP BP Pulse Ox 12/03/21 15:20 36.6 C 76 18 118/63 97 12/03/21 13:00 36.7 C 73 16 121/82 H 97 12/03/21 11:45 37.2 C 85 15 109/81 H 97 - Physical Exam General Appearance: positive: Mild distress (From pain and nausea) Eyes Bilateral: positive: Normal inspection, EOMI ENT: positive: ENT inspection nml, No signs of dehydration Neck: positive: Nml inspection, No JVD Respiratory: positive: No respiratory distress, Breath sounds nml Cardiovascular: positive: Regular rate & rhythm, No murmur Abdomen: positive: Nml bowel sounds, No distention, Other (She is mildly tender to mild palpation in all 4 quadrants, there is no guarding or rebound) Skin: positive: Warm, Dry Extremities: positive: Non-tender, No pedal edema Neurologic/Psychiatric: positive: Oriented x3 (Non-focal) Conclusion/Plan - Problem List (1) Intractable nausea and vomiting Conclusion/Plan: Related to her larger pseudocyst and possible pancreatitis. The severity of her pancreatitis may not be correlating with her serum lipase level. Will start bowel rest by ordering only sips and chips to take orally, swallowing medicines will also be allowed. Begin IV hydration with LR. Give antiemetics as needed. If the patient's symptoms do not improve in 24 hours, she will need to be changed from observation status to full inpatient status for further management (2) Abdominal pain Conclusion/Plan: Related to her pancreatitis and larger pseudocyst. Will treat with IV narcotics and bowel rest Qualifiers: Abdominal location: generalized Qualified Code(s): R10.84 - Generalized abdominal pain (3) Pancreatic pseudocyst/cyst Conclusion/Plan: The pseudocyst is larger by CT imaging. It is likely causing compression, may be causing an ileus. No intervention is usually done during an acute pancreatitis attack and she knows that she needs a new human resources project coordinator and interventional radiologist after discharge. Will treat with IV pain meds, bowel rest, IV hydration and antiemetics. Watch for fevers, elevation of white count or evidence of sepsis like elevated lactic acid, which may indicate that she is getting intra-abdominal hypertension and then would need drainage more urgently. (4) History of alcohol abuse Conclusion/Plan: She has quit approx 2 mos ago. - Lab Results Fish Bones: 12/03/21 10:12 12/03/21 10:12 - Diagnostic Imaging Results Diagnostic Imaging Results: positive: Final report reviewed
[2021-12-04] MEDS: LACTATED RINGERS 1,000 ML IV SCH ×2 (00:21→12:08)
[2021-12-04] MEDS: HYDROmorphone 0.5 MG/0.5 ML SYRINGE IVP PRN ×4 (00:21→15:48)
[2021-12-04] MEDS: SODIUM CHLORIDE FLUSH 0.9% 10 ML SYRINGE IVP SCH ×3 (00:21→15:48)
[2021-12-04] MEDS: SODIUM CHLORIDE FLUSH 0.9% 10 ML SYRINGE IVP PRN (05:02)
[2021-12-04 05:15] LABS: BASOPHILS % (AUTO) 0.8 %; EOSINOPHILS # (AUTO) 0.2 10^3/uL (0.0-0.7); EOSINOPHILS % (AUTO) 4.3 %; HCT - HEMATOCRIT 37.6 % (37.0-47.0); HGB - HEMOGLOBIN 12.3 g/dL (12.0-16.0); LYMPHOCYTES # (AUTO) 1.5 10^3/uL (1.5-3.5); LYMPHOCYTES % (AUTO) 37.8 %; MEAN CORPUSCULAR HEMOGLOBIN 35.1 pg (27.0-31.0); MEAN CORPUSCULAR HGB CONC 32.7 g/dL (32.0-36.0); MEAN CORPUSCULAR VOLUME 107.4 fL (81.0-99.0); MEAN PLATELET VOLUME 11.1 fL (7.9-10.8); MONOCYTES # (AUTO) 0.3 10^3/uL (0.0-1.0); MONOCYTES % (AUTO) 7.5 %; NEUTROPHILS % (AUTO) 49.6 %; PLT - PLATELET COUNT 129 10^3/uL (130-450)
[2021-12-04 05:22] LABS: CALCIUM 8.5 mg/dL (8.5-10.3); CREATININE 0.7 mg/dL (0.4-1.0); POTASSIUM 3.7 mmol/L (3.5-5.0)
[2021-12-04] MEDS: PROCHLORPERAZINE 10 MG/2 ML VIAL IVP PRN (08:23)
[2021-12-04] MEDS: NICOTINE 14 MG PATCH TOP SCH (08:24)
[2021-12-04 09:44] LABS: BILIRUBIN,DIRECT 0.1 mg/dL (0.1-0.5); BILIRUBIN,INDIRECT 0.6 mg/dL; BILIRUBIN,TOTAL 0.7 mg/dL (0.2-1.0)
[2021-12-04] MEDS: PROCHLORPERAZINE 5 MG TABLET PO SCH ×2 (12:05→17:48)
[2021-12-04] MEDS: oxyCODONE 5 MG TABLET PO PRN ×3 (12:07→21:53)
[2021-12-04] MEDS: PANTOPRAZOLE 40 MG TABLET PO SCH (12:07)
[2021-12-04] MEDS: ACETAMINOPHEN 325 MG TABLET PO PRN ×3 (12:08→21:53)
--- NOTE | 2021-12-04 15:58 | PROVIDER PROGRESS NOTE ---
Progress Note HPI: This is a 35-year-old white female who is well-known to our service with prior admissions for alcoholic pancreatitis. Patient was last here about 3 months ago, before that 2 months previous. She states that since her last visit she has seen a field representatives director and the plan for managing her pseudocyst is to drain them percutaneously with stents. She has stopped taking in alcohol entirely except she had 1 drink of campaign 2 weeks ago. She got a letter from the field representatives director that he is leaving and handing over his care and she needs to find a new specialist. The patient developed mid back pain yesterday and thought it was muscular. Then after having a light dinner, she started having nausea and vomiting. She tried taking just liquids and crackers and she would vomit everything up. Also her abdominal pain got worse and with these sx she came to the emergency room. She was given antiemetics, iv pain medications and IV fluids. A diet was re- attempted and she vomited it up. A CT of the abdomen and pelvis was done that shows a larger pancreatic pseudocyst than she had 2 months ago. Her lipase level is normal. The ED provider reached out to the Hospitalist team to further manage her intractable nausea and vomiting and abdominal pain related to her pancreatic psedocyst and pancreatitis. Seen at bedside today with improvement to her abdominal pain and with resolution to her nausea and vomiting. Patient denies fevers, chest pain, shortness of breath, SODA TESTER rash, GI or symptoms, joint tenderness or other symptomatology. She is tolerating sips of broth and her pain has been controlled with IV Dilaudid. O/E: VSS, afebrile General: cooperative and pleasant and in no acute respiratory distress x-ray of HEENT: Moist mucous membranes no buccal lesions Neck: No JVD CV/lungs: RRR. CTA BL Abdomen: Soft tender to the epigastrium with no rebound tenderness, positive bowel sounds all quadrants, no HSM. Extremity/skin: 2+ pulses dorsalis pedis bilaterally, no edema, clubbing or cyanosis. Neuro: Grossly intact Labs: Reviewed Imaging studies: Reviewed Assessment/plan: (1) Complex pancreatic pseudocyst/cyst Conclusion/Plan: The pseudocyst is larger by CT imaging. Unlikely causing an ileus or biliary obstruction as T bilirubin was initially slightly elevated but now has normalized with no elevation of LFTs and gallbladder does not appear to have stones. She will need evaluation by field representatives director and or interventional radiologist after discharge. No evidence of infection, fevers, sepsis physiology or elevated lactic acid however in the setting of enlarging pseudocyst risk of rupture will need [facility] radiologist to weigh in. This was a 5.6 cmx 4.7 cm. with re-comparison 5 x 4.[address] [facility] radiologist. pushing up on the duodenum. Usually transgastric EUS but complex access to this pseudocyst likely. Due to the chronicity and the enlargement of her pseudocyst with risk of possible rupture and/or further compression or infection may need higher level of care at [facility] as recommended by radiologist. (2) Intractable nausea and vomiting---Improved Conclusion/Plan: Related to her larger pseudocyst and possible pancreatitis. The severity of her pancreatitis may not be correlating with her serum lipase level. Initially started with sips and chips, tolerating broth, currently on bowel rest but with good bowel tones and with no underlying ileus, patient with no biliary ductal dilatation, with gallbladder showing no evidence of infection or stones on CT abdomen pelvis. Patient does have a large pseudocyst with other pseudocyst present on CT abdomen/pelvis. We will have radiologist estimate the size of pseudocyst as above 3 cm would indicate high risk for possible endoscopic intervention with drainage plus or minus stent placement if obstruction is seen however T bilirubin has gone back to normal and no elevation of LFTs noted. (2) Abdominal pain--Improved Conclusion/Plan: Related to her pancreatitis and larger pseudocyst. She is tolerating sips of broth and chips and sips and will advance to a clear liquid diet. No evidence of ileus as she has flatus and positive bowel sounds on exam. Continues with IV narcotics Dilaudid will be spaced out to every 6, will place on oxycodone 5-10 mg p.o. every 4 as needed. IV fluids, bowel rest and medical management as per above. Qualifiers: Abdominal location: generalized Qualified Code(s): R10.84 - Generalized abdominal pain (3) Leukopenia/thrombocytopenia This is related likely to patient's ongoing alcohol abuse with chronic consumption and likely bone marrow suppression without underlying infection, bleeding or viral illnesses. CBC monitoring. (4) History of alcohol abuse Conclusion/Plan: She has quit approx 2 mos ago. She should be encouraged to stop drinking alcohol.
[2021-12-04] MEDS: DOCUSATE SODIUM 250 MG CAPSULE PO SCH (21:53)
[2021-12-04] MEDS: SENNA 8.6 MG TABLET PO SCH (21:54)
[2021-12-05] MEDS: PROCHLORPERAZINE 5 MG TABLET PO SCH ×5 (00:32→23:47)
[2021-12-05] MEDS: LACTATED RINGERS 1,000 ML IV SCH ×3 (00:33→23:47)
[2021-12-05] MEDS: HYDROmorphone 0.5 MG/0.5 ML SYRINGE IVP PRN ×2 (00:35→15:39)
[2021-12-05] MEDS: SODIUM CHLORIDE FLUSH 0.9% 10 ML SYRINGE IVP SCH ×4 (00:36→23:47)
[2021-12-05] MEDS: oxyCODONE 5 MG TABLET PO PRN ×4 (05:00→23:48)
[2021-12-05 05:20] LABS: BASOPHILS % (AUTO) 0.6 %; EOSINOPHILS # (AUTO) 0.3 10^3/uL (0.0-0.7); EOSINOPHILS % (AUTO) 5.2 %; HCT - HEMATOCRIT 36.3 % (37.0-47.0); HGB - HEMOGLOBIN 12.1 g/dL (12.0-16.0); LYMPHOCYTES # (AUTO) 1.4 10^3/uL (1.5-3.5); LYMPHOCYTES % (AUTO) 28.7 %; MEAN CORPUSCULAR HEMOGLOBIN 35.4 pg (27.0-31.0); MEAN CORPUSCULAR HGB CONC 33.3 g/dL (32.0-36.0); MEAN CORPUSCULAR VOLUME 106.1 fL (81.0-99.0); MEAN PLATELET VOLUME 10.3 fL (7.9-10.8); MONOCYTES # (AUTO) 0.4 10^3/uL (0.0-1.0); MONOCYTES % (AUTO) 9.1 %; NEUTROPHILS # (AUTO) 2.7 10^3/uL (1.5-6.6); NEUTROPHILS % (AUTO) 56.4 %; PLT - PLATELET COUNT 133 10^3/uL (130-450); RED BLOOD COUNT 3.42 10^6/uL (4.20-5.40); RED CELL DISTRIBUTION WIDTH 14.9 % (12.0-15.0); WHITE BLOOD COUNT 4.9 x10^3/uL (4.8-10.8)
[2021-12-05 05:32] LABS: ALBUMIN 2.7 g/dL (3.2-5.5); ALBUMIN/GLOBULIN RATIO 1.1 (1.0-2.2); BILIRUBIN,TOTAL 0.7 mg/dL (0.2-1.0); CALCIUM 8.2 mg/dL (8.5-10.3); CREATININE 0.6 mg/dL (0.4-1.0); POTASSIUM 3.4 mmol/L (3.5-5.0); TOTAL PROTEIN 5.2 g/dL (6.7-8.2)
[2021-12-05] MEDS: PANTOPRAZOLE 40 MG TABLET PO SCH (05:57)
[2021-12-05] MEDS ORDERED: HYDROmorphone 1 MG/ML CARPUJECT IVP SCH (09:00)
[2021-12-05] MEDS: ESCITALOPRAM 10 MG TABLET PO SCH (09:09)
[2021-12-05] MEDS: POTASSIUM CHLORIDE 20 MEQ/15 ML UDC PO SCH ×2 (09:09→16:58)
[2021-12-05] MEDS: DOCUSATE SODIUM 250 MG CAPSULE PO SCH (09:09)
[2021-12-05] MEDS: SENNA 8.6 MG TABLET PO SCH (09:10)
[2021-12-05] MEDS: NICOTINE 14 MG PATCH TOP SCH (09:10)
--- NOTE | 2021-12-05 10:33 | PROVIDER PROGRESS NOTE ---
Progress Note HPI: This is a 35-year-old white female who is well-known to our service with prior admissions for alcoholic pancreatitis. Patient was last here about 3 months ago, before that 2 months previous. She states that since her last visit she has seen a special officer automat and the plan for managing her pseudocyst is to drain them percutaneously with stents. She has stopped taking in alcohol entirely except she had 1 drink of campaign 2 weeks ago. She got a letter from the special officer automat that he is leaving and handing over his care and she needs to find a new specialist. The patient developed mid back pain and thought it was muscular. Then after having a light dinner, she started having nausea and vomiting. She tried taking just liquids and crackers and she would vomit everything up. Also her abdominal pain got worse and with these sx she came to the emergency room. She was given antiemetics, iv pain medications and IV fluids. A diet was re-attempted and she vomited it up. A CT of the abdomen and pelvis was done that shows a larger pancreatic pseudocyst than she had 2 months ago. Her lipase level is normal. The ED provider reached out to the Hospitalist team to further manage her intractable nausea and vomiting and abdominal pain related to her pancreatic psedocyst and pancreatitis. Patient seen at bedside today. Relates 8 out of 10 epigastric pain which seems to have been exacerbated today although she did tolerate clears yesterday. She denies fevers, some mild nausea with no emesis, denying flank pain, diarrhea although she had a loose bowel movement yesterday without blood or black-colored stools.Patient is requiring 1 mg of IV Dilaudid due to her increased abdominal pain. She is passing flatus.General surgery did request patient be transferred to high-level care. O/E: VSS, afebrile General: cooperative and pleasant and in no acute respiratory distress x-ray of HEENT: Moist mucous membranes no buccal lesions Neck: No JVD CV/lungs: RRR. CTA BL Abdomen: Soft increased tenderness to the epigastrium with no rebound tenderness, positive bowel sounds all quadrants, no HSM. Extremity/skin: 2+ pulses dorsalis pedis bilaterally, no edema, clubbing or cyanosis. Neuro: Grossly intact Labs: Reviewed Imaging studies: Reviewed Assessment/plan: (1) Complex pancreatic pseudocyst/cyst Conclusion/Plan: The pseudocyst is larger by CT imaging. Unlikely causing an ileus or biliary obstruction as T bilirubin was initially slightly elevated but now has normalized with no elevation of LFTs and gallbladder does not appear to have stones. No evidence of infection, fevers, sepsis physiology or elevated lactic acid however in the setting of enlarging pseudocyst risk of rupture will need [facility] radiologist to weigh in. This was a 5.6 cmx 4.7 cm. with re-comparison 5 x 4.5 cm as per [facility] radiologist pushing up on the duodenum. As per general surgery, higher level care requested and she will need evaluation by special officer automat and or interventional radiologist. Usually transgastric EUS but complex access to this pseudocyst likely. Due to the chronicity and the enlargement of her pseudocyst with risk of possible rupture and/or further compression or infection may need higher level of care at [facility] or [facility]. (2) Intractable nausea and vomiting---Improved Conclusion/Plan: Related to her larger pseudocyst and possible pancreatitis. The severity of her pancreatitis may not be correlating with her serum lipase level. Initially started with sips and chips, tolerating broth, currently on bowel rest but with good bowel tones and with no underlying ileus, patient with no biliary ductal dilatation, with gallbladder showing no evidence of infection or stones on CT abdomen pelvis. Patient does have a large pseudocyst with other pseudocyst present on CT abdomen/pelvis. We will have radiologist estimate the size of pseudocyst as above 3 cm would indicate high risk for possible endoscopic intervention with drainage plus or minus stent placement if obstruction is seen however T bilirubin has gone back to normal and no elevation of LFTs noted. (3) Hypokalemia Conclusion/Plan: Likely due to insensible GI losses in the setting of her prior emesis. She is not on diuretics. Will replace with p.o. KCl and I have unable to tolerate IV KCl repletion therapy. (4) Abdominal pain Conclusion/Plan: Related to her pancreatitis and larger pseudocyst w/ duodenum compression. Patient is currently tolerating clear liquids and was advanced to a full liquid diet. No evidence of ileus as she has flatus and positive bowel sounds on exam. General surgery was concerned on compression of the duodenum and may be at risk for gastric outlet obstruction. We will give 1 dose of Dilaudid at 1 mg IV x1 and on oxycodone 5-10 mg p.o. every 4 as needed. IV fluids, bowel rest and medical management as per above. Qualifiers: Abdominal location: generalized Qualified Code(s): R10.84 - Generalized abdominal pain (5) Leukopenia/thrombocytopenia---resolved This is related likely to patient's ongoing alcohol abuse with chronic consumption and likely bone marrow suppression without underlying infection, bleeding or viral illnesses. CBC monitoring. (6) History of alcohol abuse Conclusion/Plan: She has quit approx 2 mos ago. She should be encouraged to stop drinking alcohol.
[2021-12-05 11:49] LABS: INFLUENZA A- RESP PCR PANEL NOT DETECTED; INFLUENZA B - RESP PCR PANEL NOT DETECTED; RSV- RESP PCR PANEL NOT DETECTED; SARS-CoV-2 -RESP PCR PANEL NOT DETECTED
[2021-12-05] MEDS: ACETAMINOPHEN 325 MG TABLET PO PRN ×2 (18:50→23:47)
[2021-12-06] MEDS: PROCHLORPERAZINE 5 MG TABLET PO SCH ×4 (04:07→23:30)
[2021-12-06] MEDS: oxyCODONE 5 MG TABLET PO PRN (04:08)
[2021-12-06] MEDS: ACETAMINOPHEN 325 MG TABLET PO PRN ×3 (04:08→23:28)
[2021-12-06] MEDS: PANTOPRAZOLE 40 MG TABLET PO SCH (05:32)
[2021-12-06 05:43] LABS: BASOPHILS % (AUTO) 0.7 %; EOSINOPHILS # (AUTO) 0.2 10^3/uL (0.0-0.7); HCT - HEMATOCRIT 37.1 % (37.0-47.0); HGB - HEMOGLOBIN 12.2 g/dL (12.0-16.0); LYMPHOCYTES # (AUTO) 1.5 10^3/uL (1.5-3.5); LYMPHOCYTES % (AUTO) 35.6 %; MEAN CORPUSCULAR HEMOGLOBIN 34.6 pg (27.0-31.0); MEAN CORPUSCULAR HGB CONC 32.9 g/dL (32.0-36.0); MEAN CORPUSCULAR VOLUME 105.1 fL (81.0-99.0); MEAN PLATELET VOLUME 11.2 fL (7.9-10.8); MONOCYTES # (AUTO) 0.5 10^3/uL (0.0-1.0); MONOCYTES % (AUTO) 11.5 %; PLT - PLATELET COUNT 132 10^3/uL (130-450); RED BLOOD COUNT 3.53 10^6/uL (4.20-5.40); RED CELL DISTRIBUTION WIDTH 14.9 % (12.0-15.0); WHITE BLOOD COUNT 4.2 x10^3/uL (4.8-10.8)
[2021-12-06 05:56] LABS: ALBUMIN 2.8 g/dL (3.2-5.5); ALKALINE PHOSPHATASE 68 IU/L (42-121); ALT ALANINE AMINOTRANSFERASE 11 IU/L (10-60); AST ASPARTATE AMINOTRANSFERASE 20 IU/L (10-42); BILIRUBIN,TOTAL 0.6 mg/dL (0.2-1.0); BUN - BLOOD UREA NITROGEN < 5 mg/dL (6-20); CALCIUM 8.7 mg/dL (8.5-10.3); CARBON DIOXIDE - CO2 26 mmol/L (21-32); CHLORIDE 105 mmol/L (101-111); CREATININE 0.6 mg/dL (0.4-1.0); GFR - MDRD 114 (>89); GLUCOSE 105 mg/dL (70-100); LIPASE 27 U/L (22-51); POTASSIUM 3.9 mmol/L (3.5-5.0); SODIUM 137 mmol/L (135-145); TOTAL PROTEIN 5.5 g/dL (6.7-8.2)
[2021-12-06] MEDS ORDERED: HYDROmorphone 1 MG/ML CARPUJECT IVP ONE (08:41)
[2021-12-06] MEDS ORDERED: HYDROmorphone 1 MG/ML CARPUJECT IVP PRN (08:45)
[2021-12-06] MEDS ORDERED: oxyCODONE ER 10 MG TABLET PO SCH (09:00)
[2021-12-06] MEDS: POTASSIUM CHLORIDE 20 MEQ/15 ML UDC PO SCH ×2 (09:24→16:01)
[2021-12-06] MEDS: DOCUSATE SODIUM 250 MG CAPSULE PO SCH (09:24)
[2021-12-06] MEDS: ESCITALOPRAM 10 MG TABLET PO SCH (09:24)
[2021-12-06] MEDS: NICOTINE 14 MG PATCH TOP SCH (09:24)
[2021-12-06] MEDS: SENNA 8.6 MG TABLET PO SCH (09:25)
[2021-12-06] MEDS: SODIUM CHLORIDE FLUSH 0.9% 10 ML SYRINGE IVP SCH ×2 (09:25→16:02)
--- NOTE | 2021-12-06 10:39 | PROVIDER PROGRESS NOTE ---
Progress Note HPI: This is a 35-year-old white female who is well-known to our service with prior admissions for alcoholic pancreatitis. Patient was last here about 3 months ago, before that 2 months previous. She states that since her last visit she has seen a turning lathe tender and the plan for managing her pseudocyst is to drain them percutaneously with stents. She has stopped taking in alcohol entirely except she had 1 drink of campaign 2 weeks ago. She got a letter from the turning lathe tender that he is leaving and handing over his care and she needs to find a new specialist. The patient developed mid back pain and thought it was muscular. Then after having a light dinner, she started having nausea and vomiting. She tried taking just liquids and crackers and she would vomit everything up. Also her abdominal pain got worse and with these sx she came to the emergency room. She was given antiemetics, iv pain medications and IV fluids. A diet was re-attempted and she vomited it up. A CT of the abdomen and pelvis was done that shows a larger pancreatic pseudocyst than she had 2 months ago. Her lipase level is normal. The ED provider reached out to the Hospitalist team to further manage her intractable nausea and vomiting and abdominal pain related to her pancreatic psedocyst and pancreatitis. Patient still have significant abdominal pain rating 8/10 epigastric and lower quadrants and unclear if this is exacerbated by her full liquid diet however she did have a loose bowel movement on 12/04 with no bloody consistencies or mucoid appearance. Patient is requiring increased doses of Dilaudid and states that the oxycodone does not work well for her. She is passing flatus. General surgery has made recommendations on transferring to higher level of care. She denies fevers, nausea, emesis, flank pain, MP rash or joint tenderness. O/E: VSS, afebrile General: cooperative and pleasant and in no acute respiratory distress x-ray of HEENT: Moist mucous membranes no buccal lesions Neck: No JVD CV/lungs: RRR. CTA BL Abdomen: Soft increased tenderness to the epigastrium with no rebound tenderness, positive bowel sounds all quadrants, no HSM. Extremity/skin: 2+ pulses dorsalis pedis bilaterally, no edema, clubbing or cyanosis. Neuro: Grossly intact Labs: Reviewed Imaging studies: Reviewed Assessment/plan: (1) Complex pancreatic pseudocyst/cyst Conclusion/Plan: The pseudocyst is larger by CT imaging. Unlikely causing an ileus or biliary obstruction as T bilirubin was initially slightly elevated but now has normalized with no elevation of LFTs and gallbladder does not appear to have stones. No evidence of infection, fevers, sepsis physiology or elevated lactic acid iqbal subha in the setting of enlarging pseudocyst risk of rupture will need [facility] radiologist to weigh in. This was a 5.6 cmx 4.7 cm. with re-comparison 5 x 4.5 cm as per [facility] radiologist pushing up on the duodenum. As per general surgery, higher level care requested and she will need evaluation by turning lathe tender and or interventional radiologist. Usually transgastric EUS but complex access to this pseudocyst likely. Due to the chronicity and the enlargement of her pseudocyst with risk of possible rupture and/or further compression or infection and recommendation to transfer to [facility]. Transfer center was contacted for [facility] with turning lathe tender Dr. Blevins recommended reviewing CT abdomen pelvis and forming a plan of care either as an outpatient or as an inpatient service to address patient's pseudocyst. (2) Intractable nausea and vomiting---Resolved Conclusion/Plan: Related to her larger pseudocyst and possible pancreatitis. The severity of her pancreatitis may not be correlating with her serum lipase level. Initially started with sips and chips, tolerating broth, currently on bowel rest but with good bowel tones and with no underlying ileus, patient with no biliary ductal dilatation, with gallbladder showing no evidence of infection or stones on CT abdomen pelvis. Patient does have a large pseudocyst with other pseudocyst present on CT abdomen/pelvis. We will have radiologist estimate the size of pseudocyst as above 3 cm would indicate high risk for possible endoscopic intervention with drainage plus or minus stent placement if obstruction is seen however T bilirubin has gone back to normal and no elevation of LFTs noted. (3) Hypokalemia---Resolved Conclusion/Plan: Likely due to insensible GI losses in the setting of her prior emesis. She is not on diuretics. Potassium seems to be normal now after KCl repletion treatment. (4) Abdominal pain Conclusion/Plan: Related to her pancreatitis and larger pseudocyst w/ duodenum compression. Patient is currently tolerating clear liquids and was advanced to a full liquid diet. No evidence of ileus as she has flatus and positive bowel sounds on exam. General surgery was concerned on compression of the duodenum and may be at risk for gastric outlet obstruction. Due to patient's increased abdominal pain we will place on Dilaudid at 1 mg every 4 hours as needed and oxycodone ER 10 mg scheduled twice daily with holding parameters. IV fluids, bowel rest and medical management as per above. (5) Leukopenia/thrombocytopenia---Mild Unclear of etiology however it appears that this is related likely to patient's ongoing alcohol abuse with chronic consumption and likely bone marrow suppression without underlying infection, bleeding or viral illnesses. CBC monitoring. (6) History of alcohol abuse Conclusion/Plan: She has quit approx 2 mos ago. She should be encouraged to stop drinking alcohol.
[2021-12-06] MEDS: LACTATED RINGERS 1,000 ML IV SCH ×2 (11:22→23:28)
[2021-12-06] MEDS ORDERED: DIPHENOX/ATROPINE 2.5/0.025 MG TABLET PO PRN (11:22)
[2021-12-06] MEDS: LACTOBACILLUS RHAMNOSUS GG CAPSULE PO SCH (11:55)
[2021-12-06] MEDS ORDERED: fentaNYL 100 MCG/2 ML VIAL IVP PRN (16:40)
--- NOTE | 2021-12-06 18:25 | Discharge Plan ---
Discharge Plan Problem Reviewed?: Yes Disposition: Home, Self Care Condition: Good Prescriptions: Prochlorperazine [Compazine] 10 mg PO Q6H #60 tablet HYDROmorphone [Dilaudid] 4 mg PO Q4H PRN #42 tablet PRN Reason: severe abdominal pain Nicotine 14 mg Patch [Nicoderm] 1 patch TOP DAILY #14 patch Diet: Soft (Continue with pureed diet as outpatient, low-fat, low residual) Shower Restrictions: No Driving Restrictions: No Instruction Topics: Abdominal Pain, Pancreatitis Chronic Dc Plan of Treatment: We will continue with a pured diet meanwhile being controlled on Dilaudid for your acute on chronic pancreatitis with associated large pseudocyst that is obstructing your duodenum. This condition will be addressed by Dr. Jose who is a collection systems administrator that we will see you as an outpatient and he will call for you to get an appointment. In addition you will also be provided his information so you may confirm your appointment. I would strongly advise you to not touch alcohol at all costs as this would exacerbate your abdominal pain, pseudocyst as well as possible liver damage. Care Goals: Your goals of care will be centered around conservative pain control with narcotics, bowel rest with ongoing pured diet and to maintain your hydration status during the time you wait for your appointment to see collection systems administrator Dr. Jose. No Smoking: If you smoke, Please STOP! Call for help. Follow-up with: RUBEN JOSE MD [Physician No Access] - (Patient to have appointment set up by collection systems administrator Dr. Jose as outpatient. Will provide contact information.)
[2021-12-06] MEDS: HYDROmorphone 2 MG TABLET PO PRN ×2 (19:00→22:24)
[2021-12-07] MEDS: SODIUM CHLORIDE FLUSH 0.9% 10 ML SYRINGE IVP SCH ×2 (00:17→08:58)
[2021-12-07] MEDS: HYDROmorphone 2 MG TABLET PO PRN ×4 (03:08→14:50)
[2021-12-07 05:27] LABS: BASOPHILS % (AUTO) 0.5 %; EOSINOPHILS # (AUTO) 0.2 10^3/uL (0.0-0.7); EOSINOPHILS % (AUTO) 5.5 %; HCT - HEMATOCRIT 35.4 % (37.0-47.0); HGB - HEMOGLOBIN 11.6 g/dL (12.0-16.0); LYMPHOCYTES # (AUTO) 1.4 10^3/uL (1.5-3.5); LYMPHOCYTES % (AUTO) 36.2 %; MEAN CORPUSCULAR HEMOGLOBIN 34.6 pg (27.0-31.0); MEAN CORPUSCULAR HGB CONC 32.8 g/dL (32.0-36.0); MEAN CORPUSCULAR VOLUME 105.7 fL (81.0-99.0); MEAN PLATELET VOLUME 10.5 fL (7.9-10.8); MONOCYTES # (AUTO) 0.5 10^3/uL (0.0-1.0); MONOCYTES % (AUTO) 12.6 %; NEUTROPHILS # (AUTO) 1.7 10^3/uL (1.5-6.6); NEUTROPHILS % (AUTO) 44.9 %; PLT - PLATELET COUNT 147 10^3/uL (130-450); RED BLOOD COUNT 3.35 10^6/uL (4.20-5.40); RED CELL DISTRIBUTION WIDTH 14.8 % (12.0-15.0); WHITE BLOOD COUNT 3.8 x10^3/uL (4.8-10.8)
--- NOTE | 2021-12-07 06:24 | DISCHARGE SUMMARY ---
"Discharge Summary Admit Date: 12/03/21 Discharge Date: 12/07/21 Discharging Provider: Dr. Driver Primary Care Provider: No PCP Code Status: Attempt Resuscitation Condition at Discharge: Good Discharge Disposition: 01 Home, Self Care Discharge Facility Name: [facility] - DIAGNOSES Admission Diagnoses: (1) Intractable nausea and vomiting (2) Abdominal pain (3) Pancreatic pseudocyst/cyst (4) History of alcohol abuse Discharge Diagnoses with Status of Each Condition: (1) Large pancreatic pseudocyst---Stable (2) Acute on chronic pancreatitis---Resolving (3) Intractable nausea and vomiting---Resolved (4) Hypokalemia---Resolved (5) Abdominal pain (6) Leukopenia/thrombocytopenia (Mild)---Stable (7) History of alcohol abuse - HPI History of Present Illness: This is a 35-year-old white female who is well-known to our service with prior admissions for ankle alcoholic pancreatitis. Patient was last here about 3 months ago, before that 2 months previous. She states that since her last visit she has seen a rabble furnace tender and the plan for managing her pseudocyst is to drain them percutaneously with stents. She has stopped taking in alcohol entirely except she had 1 drink of campaign 2 weeks ago. She got a letter from the rabble furnace tender that he is leaving and handing over his care and she needs to find a new specialist. The patient developed mid back pain yesterday and thought it was muscular. Then after having a light dinner, she started having nausea and vomiting. She tried taking just liquids and crackers and she would vomit everything up. Also her abdominal pain got worse and with these sx she came to the emergency room. She was given antiemetics, iv pain medications and IV fluids. A diet was re- attempted and she vomited it up. A CT of the abdomen and pelvis was done that shows a larger pancreatic pseudocyst than she had 2 months ago. Her lipase level is normal. The ED provider reached out to the Hospitalist team to further manage her intractable nausea and vomiting and abdominal pain related to her pa ncreatic psedocyst and pancreatitis. - CONSULTS | PROCEDURES Consultations: General Surgery-Dr. Hernan Mcdaniel Procedures: None - HOSPITAL COURSE Hospital Course: Patient was admitted for enlarged symptomatic pancreatic pseudocyst seen on CT imaging causing duodenal obstruction and likely precipitating intractable nausea and vomiting which was managed with bowel rest, IV fluids and aggressive antiemetics and narcotic use. Patient had underlying electrolyte disturbances/hypokalemia which was addressed with KCl repletion. Patient did not have evidence of ileus and was not provided antibiotics however did have loose stools controlled with Lomotil, without fevers or other signs and symptoms or infection. Her LFTs were unremarkable and initially had elevated T bilirubin 1.1 but then down trended to 0.6 and lipase was essentially normal throughout hospitalization. However, patient had a CT abdomen and pelvis on this admission that showed peripancreatic inflammation to suggest an acute on chronic pancreatitis. Her abdominal pain waxed and waned in conjunction with slow advancement of her diet for which she tolerated initially sips of water and chips and graduated to a pured diet upon discharge with pain control achieved. Patient developed leukopenia and mild thrombocytopenia which was attributable to ongoing alcohol consumption without evidence of bleeding, infection or viral i llness. Due to her ongoing alcohol abuse and tobacco use disorder patient was given education and counseling on cessation. Patient was managed conservatively and consultation to gastroenterology from [facility] was requested with Dr. Blevins who in evaluating patient's prior CT imaging with CT abdomen pelvis on this admission recommended pain control with conservative management and no acute or urgent intervention. Review of the CT imaging from August [address] abdomen pelvis on this admission and said that the large pseudocyst essentially has not enlarged to the point of requiring urgent intervention. However, he did recommend that she may warrant a EUS with possible drainage of pseudocyst and stent placement given that the pseudocyst is compressing the duodenum. Patient will be referred to [facility] for which Dr. Blevins will call and make an appointment however will provide information for patient to have on hand. - ALLERGIES Allergies/Adverse Reactions: Allergies Allergy/AdvReac Type Severity Reaction Status Date / Time No Known Drug Allergies Allergy Verified 12/03/21 09:20 - MEDICATIONS Home Medications: Ambulatory Orders Medication Instructions Recorded Confirmed Pantoprazole [Protonix] 40 mg PO QDAC #30 tablet 08/20/21 12/03/21 Ondansetron Odt [Zofran Odt] 4 mg TL Q6H PRN #10 tablet 10/06/21 12/03/21 Diphenoxylate/Atropine [Lomotil] 1 tab PO QID PRN #42 tablet 06/23/22 Escitalopram [Lexapro] 10 mg PO DAILY #30 tablet 12/06/21 Nicotine 14 mg Patch [Nicoderm] 1 patch TOP DAILY #14 patch 12/06/21 Prochlorperazine [Compazine] 10 mg PO Q6H #60 tablet 12/06/21 - PHYSICAL EXAM AT DISCHARGE General Appearance: positive: No acute distress, Alert, Mild distress Eyes Bilateral: positive: Normal inspection, PERRL, EOMI ENT: positive: Pharynx nml, No signs of dehydration Neck: positive: Thyroid nml, No JVD, Trachea midline Respiratory: positive: Chest non-tender, No respiratory distress, Breath sounds nml Cardiovascular: positive: Regular rate & rhythm, No murmur, No gallop Peripheral Pulses: positive: 2+ Abdomen: positive: Nml bowel sounds, No distention, Tenderness (mild to moderate tenderness to epigastrium). negative: Guarding, Rebound Back: positive: Nml inspection Skin: positive: Color nml, No rash Extremities: positive: Non-tender, Full ROM, Nml appearance Neurologic/Psychiatric: positive: Oriented x3, CN's nml (2-12) - LABS Result Diagrams: 12/07/21 04:33 12/06/21 04:25 - DIAGNOSTIC IMAGING Diagnostic Imaging Results: Final report reviewed - FOLLOW UP Follow Up: Patient to follow-up with Dr. Caleb Blevins from gastroenterology, [facility] for evaluation of EUS with drainage of pseudocyst and stent placement and may contact them at [phone]. In addition she needs to follow-up with a new PCP in 1 or 2 weeks to reevaluate the need for her ongoing Dilaudid use. - TIME SPENT Time Spent in Discharge (Minutes): 40"
[2021-12-07] MEDS: PANTOPRAZOLE 40 MG TABLET PO SCH (06:29)
[2021-12-07] MEDS: PROCHLORPERAZINE 5 MG TABLET PO SCH ×2 (06:29→11:29)
[2021-12-07] MEDS: POTASSIUM CHLORIDE 20 MEQ/15 ML UDC PO SCH (08:47)
[2021-12-07] MEDS: NICOTINE 14 MG PATCH TOP SCH (08:47)
[2021-12-07] MEDS: ESCITALOPRAM 10 MG TABLET PO SCH (08:48)
[2021-12-07] MEDS: LACTOBACILLUS RHAMNOSUS GG CAPSULE PO SCH (08:48)
[2021-12-07] MEDS: DOCUSATE SODIUM 250 MG CAPSULE PO SCH (08:48)
[2021-12-07] MEDS: ONDANSETRON 4 MG/2 ML VIAL IVP PRN (08:53)
[2021-12-07] MEDS: LACTATED RINGERS 1,000 ML IV SCH (12:24)
[2021-12-07 13:38] VITALS: BP 129/89
== END 2021-12-07 15:34 | disposition home or self-care (01) | DRG 438 ==
LOC: EDUNIT# → ED 09:11 → MS2 11:43 → OBSVTOIN 12-06 10:33
PROVIDERS: ADMIT Internal Medicine; ATTEND Family Medicine
DX: K86.3 Pseudocyst of pancreas (principal); K85.20 Alcohol induced acute pancreatitis without necrosis or infection; K31.5 Obstruction of duodenum; E87.6 Hypokalemia; D72.819 Decreased white blood cell count, unspecified; D69.6 Thrombocytopenia, unspecified; F10.10 Alcohol abuse, uncomplicated; F17.210 Nicotine dependence, cigarettes, uncomplicated; Z20.822 Contact with and (suspected) exposure to COVID-19; F32.A Depression, unspecified
CPT/HCPCS: 36415; 74176; 80048; 80053; 81001; 82247; 82248; 83690; 85025; 87637; 96374; 96375; 96376; 99285; 99406; A9270; G0378; J1170; J7120; 87086

== ENCOUNTER 2022-01-08 14:36 | Outpatient (CLI) | payer MEDICAID | END 2022-01-08 14:37 | disposition critical access hospital (66) | LOC: EMS 14:36 | DX: R10.13 Epigastric pain (principal); R11.2 Nausea with vomiting, unspecified | CPT/HCPCS: A0425; A0427; A0999 ==

== ENCOUNTER 2022-01-08 15:00 | Emergency (ER) | payer MEDICAID ==
--- NOTE | 2022-01-08 15:15 | ED Physician Documentation ---
PD HPI ABD PAIN - Stated complaint Stated Complaint: ABD PX - Chief complaint Chief Complaint: Abd Pain - Additional information Additional information: Patient is 36-year-old female presenting to the emergency department with epigastric abdominal pain. History of chronic pancreatitis. Reports had a few alcoholic beverages 2 days ago. Also stated that she may have accidentally consumed alcohol today when she drank her mother's grape juice. Denies fever, chills, chest pain, shortness of breath, diarrhea, constipation, new rash. 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 HEENT: Tonsil/Adenoidectomy - Present Medications Home Medications: Ambulatory Orders Medication Instructions Recorded Confirmed Pantoprazole [Protonix] 40 mg PO QDAC #30 tablet 08/20/21 12/03/21 Ondansetron Odt [Zofran Odt] 4 mg TL Q6H PRN #10 tablet 10/06/21 01/08/22 Escitalopram [Lexapro] 10 mg PO DAILY #30 tablet 12/06/21 01/08/22 Nicotine 14 mg Patch [Nicoderm] 1 patch TOP DAILY #14 patch 12/06/21 Prochlorperazine [Compazine] 10 mg PO Q6H #60 tablet 12/06/21 01/08/22 HYDROmorphone [Dilaudid] 4 mg PO Q4H PRN #42 tablet 12/07/21 HYDROcod/ACETAM 5/325 [[place] 5/325] 1 - 2 ea PO Q6H PRN #14 tablet 01/08/22 Lipase/Protease/Amylase [Creon Dr 1 each PO TIDWM 01/08/22 01/08/22 24,000 Unit Capsule] - Allergies Allergies/Adverse Reactions: Allergies Allergy/AdvReac Type Severity Reaction Status Date / Time No Known Drug Allergies Allergy Verified 01/08/22 15:08 - Social History Does the pt smoke?: Yes Smoking Status: Current every day smoker Does the pt drink ETOH?: No Does the pt have substance abuse?: Yes - Immunizations Immunizations are current?: Yes - POLST Patient has POLST: No POLST Status: Full Code PD ED PE NORMAL - General General: Alert and oriented X 3 - HEENT HEENT: Atraumatic - Neck Neck: Supple, no meningeal sign - Cardiac Cardiac: RRR - Abdomen Abdomen: Normal bowel sounds, Other (Epigastric abdominal tenderness). No: Non tender Results - Vitals Vitals: Vital Signs - 24 hr 01/08/22 01/08/22 01/08/22 15:08 15:11 17:11 Temperature 37.3 C 37.3 C Heart Rate 103 H 103 H 90 Respiratory 24 24 17 Rate Blood Pressure 131/95 H 131/95 H 134/92 H O2 Saturation 97 97 94 Oxygen O2 Source Room air - EKG (time done) 1536 Rate: Rate (enter#) (101) Rhythm: NSR [place]: Normal Intervals: Normal ND, Prolonged QT QRS: Normal Ischemia: Normal ST segments Computer interpretation: Agree with computer - Labs Labs: Laboratory Tests 01/08/22 01/08/22 01/08/22 15:17 15:17 15:30 WBC 8.3 RBC 3.46 L Hgb 12.2 Hct 35.4 L MCV 102.3 H MCH 35.3 H MCHC 34.5 RDW 14.8 Plt Count 179 MPV 9.6 Neut # (Auto) 6.2 Lymph # (Auto) 1.6 [place] # (Auto) 0.4 Eos # (Auto) 0.1 Baso # (Auto) 0.0 Absolute Nucleated RBC 0.00 Nucleated RBC % 0.0 Sodium 138 Potassium 3.1 L Chloride 108 Carbon Dioxide 19 L Anion Gap 11.0 BUN 10 Creatinine 0.6 Estimated GFR (MDRD) 114 Glucose 106 H Calcium 8.6 Total Bilirubin 0.4 AST 30 ALT 18 Alkaline Phosphatase 79 Total Protein 6.5 L Albumin 3.7 Globulin 2.8 Albumin/Globulin Ratio 1.3 Lipase 39 Urine Color YELLOW Urine Clarity CLEAR Urine pH 6.0 Ur Specific [place] >=1.030 H Urine Protein NEGATIVE Urine Glucose (UA) NEGATIVE Urine Ketones TRACE Urine Occult Blood NEGATIVE Urine Nitrite NEGATIVE Urine Bilirubin NEGATIVE Urine Urobilinogen 0.2 (NORMAL) Ur Leukocyte Esterase NEGATIVE Ur Microscopic Review NOT INDICATED Urine Culture Comments NOT INDICATED Urine HCG, Qual NEGATIVE Urine Opiates Screen NEGATIVE Ur Oxycodone Screen NEGATIVE Urine Methadone Screen NEGATIVE Ur Propoxyphene Screen NEGATIVE Ur Barbiturates Screen NEGATIVE Ur Tricyclics Screen NEGATIVE Ur Phencyclidine Scrn NEGATIVE Ur Amphetamine Screen NEGATIVE U Methamphetamines Scrn NEGATIVE U Benzodiazepines Scrn NEGATIVE Urine Cocaine Screen NEGATIVE U Cannabinoids Screen POSITIVE H Ethyl Alcohol 140.9 PD MEDICAL DECISION MAKING - ED course Complexity details: reviewed results, d/w patient ED course: Patient is 36-year-old female with chronic pancreatitis presenting with epigastric abdominal pain. Afebrile, hemodynamic stable arrival to the emergency department. Given IV hydration, medication for pain control and nausea. Did have a mild prolongation of QTC however was subsequently found to be mildly hypokalemic and presumably hypomagnesemic. Electrolyte repletion has been ordered. Although she denied active drinking and told me that she had had 1-2 beverages 2 days ago she also reported a potential "accidental" consumption of alcohol today. Her blood ethanol greater than 130 however is more consistent with active drinking. She does appear to be tolerating p.o. intake at this time. Will discharge with medication for symptomatic management. Encouraged to discontinuation with alcohol consumption and careful follow-up with primary care. Departure - Departure Clinical Impression: Chronic pancreatitis, Alcohol abuse with alcohol-induced disorder, Pancreatitis, Alcohol abuse Instructions: Pancreatitis Chronic Dc Prescriptions: HYDROcod/ACETAM 5/325 [[place] 5/325] 1 - 2 ea PO Q6H PRN #14 tablet PRN Reason: Pain Comments: Thank you for allowing us to care for you today at [facility]. Nancy, it is extremely important that you stop drinking. Your chronic abdominal pain will get nothing but worse for as long as you continue to consume alcohol. Overall your labs here in the emergency department however are very reassuring. Have sent some medication for pain control to [facility], your preferred pharmacy.
[2022-01-08 15:23] LABS: BASOPHILS % (AUTO) 0.5 %; EOSINOPHILS # (AUTO) 0.1 10^3/uL (0.0-0.7); EOSINOPHILS % (AUTO) 0.7 %; HCT - HEMATOCRIT 35.4 % (37.0-47.0); HGB - HEMOGLOBIN 12.2 g/dL (12.0-16.0); LYMPHOCYTES # (AUTO) 1.6 10^3/uL (1.5-3.5); LYMPHOCYTES % (AUTO) 19.1 %; MEAN CORPUSCULAR HEMOGLOBIN 35.3 pg (27.0-31.0); MEAN CORPUSCULAR HGB CONC 34.5 g/dL (32.0-36.0); MEAN CORPUSCULAR VOLUME 102.3 fL (81.0-99.0); MEAN PLATELET VOLUME 9.6 fL (7.9-10.8); MONOCYTES # (AUTO) 0.4 10^3/uL (0.0-1.0); MONOCYTES % (AUTO) 4.8 %; NEUTROPHILS # (AUTO) 6.2 10^3/uL (1.5-6.6); NEUTROPHILS % (AUTO) 74.7 %; PLT - PLATELET COUNT 179 10^3/uL (130-450); RED BLOOD COUNT 3.46 10^6/uL (4.20-5.40); RED CELL DISTRIBUTION WIDTH 14.8 % (12.0-15.0); WHITE BLOOD COUNT 8.3 x10^3/uL (4.8-10.8)
[2022-01-08 15:35] LABS: ALBUMIN 3.7 g/dL (3.2-5.5); ALBUMIN/GLOBULIN RATIO 1.3 (1.0-2.2); BILIRUBIN,TOTAL 0.4 mg/dL (0.2-1.0); CALCIUM 8.6 mg/dL (8.5-10.3); CREATININE 0.6 mg/dL (0.4-1.0); ETOH - ETHANOL 140.9 mg/dL; POTASSIUM 3.1 mmol/L (3.5-5.0); TOTAL PROTEIN 6.5 g/dL (6.7-8.2)
[2022-01-08 15:35] LABS: MUDS CUTOFF CONCENTRATIONS CUTOFF CONC BELOW:
[2022-01-08 15:39] LABS: BILIRUBIN,URINE NEGATIVE (NEGATIVE); GLUCOSE, URINE (UA) NEGATIVE (NEGATIVE); KETONES,URINE (UA) TRACE mg/dL (NEGATIVE); LEUKOCYTE ESTERASE, URINE NEGATIVE (NEGATIVE); NITRITE,URINE NEGATIVE (NEGATIVE); OCCULT BLOOD,URINE NEGATIVE (NEGATIVE); PROTEIN,URINE NEGATIVE (NEGATIVE); UROBILINOGEN,URINE 0.2 (NORMAL) E.U./dL (NORMAL)
[2022-01-08 15:44] LABS: CLARITY,URINE CLEAR (CLEAR); HCG UR QUAL NEGATIVE
[2022-01-08] MEDS ORDERED: SODIUM CHLORIDE 0.9% 1,000 ML IV STA (15:45)
[2022-01-08] MEDS ORDERED: LORazepam 2 MG/ML VIAL IVP STA (15:46)
[2022-01-08] MEDS ORDERED: HYDROmorphone 1 MG/ML CARPUJECT IVP STA ×2 (15:47→16:56)
[2022-01-08 15:54] LABS: AMPHETAMINE SCREEN,URINE NEGATIVE (NEGATIVE); BARBITURATE SCREEN,UR NEGATIVE (NEGATIVE); BENZODIAZEPINES SCREEN, URINE NEGATIVE (NEGATIVE); COCAINE SCREEN URINE NEGATIVE (NEGATIVE); METHADONE SCREEN, URINE NEGATIVE (NEGATIVE); METHAMPHETAMINES SCREEN, URINE NEGATIVE (NEGATIVE); OPIATE SCREEN, URINE NEGATIVE (NEGATIVE); OXYCODONE SCREEN, URINE NEGATIVE (NEGATIVE); PROPOXYPHENE SCREEN, URINE NEGATIVE (NEGATIVE); THC CANNABINOID SCREEN, URINE POSITIVE (NEGATIVE); TRICYCLIC ANTIDEPRESSANT,URINE NEGATIVE (NEGATIVE)
[2022-01-08] MEDS ORDERED: MAGNESIUM SULFATE 2 GRAM 2 GM/50 ML BAG IV ONE (16:44)
[2022-01-08] MEDS ORDERED: POTASSIUM CHLOR 10 MEQ/100 ML 10 MEQ/100 ML BAG IV ONE (16:45)
[2022-01-08] MEDS ORDERED: oxyCODONE 5 MG TABLET PO STA (18:25)
[2022-01-08 19:34] VITALS: BP 130/90
[2022-01-08] MEDS ORDERED: oxyCODONE/ACET 5/325 Prepack 4 PO STA (19:49)
[2022-01-08] MEDS ORDERED: ONDANSETRON ODT 4 MG Prepack 2 TL PRN (19:49)
== END 2022-01-08 20:04 | disposition home or self-care (01) ==
LOC: EDUNIT# → ED 15:00
DX: F10.188 Alcohol abuse with other alcohol-induced disorder (principal); Y90.6 Blood alcohol level of 120-199 mg/100 ml; K86.0 Alcohol-induced chronic pancreatitis; E87.6 Hypokalemia; F17.200 Nicotine dependence, unspecified, uncomplicated
CPT/HCPCS: 36415; 80053; 80306; 80320; 81003; 81025; 83690; 85025; 93005; 96365; 96367; 96375; 96376; 99283; 99285; A9270; J1170; J2060; 81001; 87086

== ENCOUNTER 2022-03-04 10:51 | Emergency (ER) | payer MEDICAID ==
[2022-03-04 11:03] VITALS: BP 124/91
[2022-03-04 11:13] LABS: BASOPHILS % (AUTO) 0.3 %; EOSINOPHILS # (AUTO) 0.1 10^3/uL (0.0-0.7); EOSINOPHILS % (AUTO) 1.1 %; HCT - HEMATOCRIT 39.4 % (37.0-47.0); HGB - HEMOGLOBIN 13.6 g/dL (12.0-16.0); LYMPHOCYTES # (AUTO) 1.3 10^3/uL (1.5-3.5); MEAN CORPUSCULAR HEMOGLOBIN 36.3 pg (27.0-31.0); MEAN CORPUSCULAR HGB CONC 34.5 g/dL (32.0-36.0); MEAN CORPUSCULAR VOLUME 105.1 fL (81.0-99.0); MEAN PLATELET VOLUME 9.8 fL (7.9-10.8); MONOCYTES # (AUTO) 0.4 10^3/uL (0.0-1.0); MONOCYTES % (AUTO) 6.4 %; NEUTROPHILS # (AUTO) 4.5 10^3/uL (1.5-6.6); NEUTROPHILS % (AUTO) 70.9 %; PLT - PLATELET COUNT 235 10^3/uL (130-450); RED BLOOD COUNT 3.75 10^6/uL (4.20-5.40); RED CELL DISTRIBUTION WIDTH 15.6 % (12.0-15.0); WHITE BLOOD COUNT 6.4 x10^3/uL (4.8-10.8)
[2022-03-04 11:27] LABS: ALBUMIN 4.1 g/dL (3.2-5.5); ALBUMIN/GLOBULIN RATIO 1.2 (1.0-2.2); BILIRUBIN,TOTAL 0.8 mg/dL (0.2-1.0); CALCIUM 9.2 mg/dL (8.5-10.3); CREATININE 0.6 mg/dL (0.4-1.0); POTASSIUM 3.7 mmol/L (3.5-5.0); TOTAL PROTEIN 7.4 g/dL (6.7-8.2)
== END 2022-03-04 12:55 | disposition left against medical advice (07) ==
LOC: ED 10:51
DX: Z53.21 Procedure and treatment not carried out due to patient leaving prior to being seen by health care provider (principal)
CPT/HCPCS: 36415; 80053; 83690; 85025

== ENCOUNTER 2022-03-13 09:01 | Emergency (ER) | payer MEDICAID ==
[2022-03-13 09:23] LABS: BILIRUBIN,URINE NEGATIVE (NEGATIVE); GLUCOSE, URINE (UA) NEGATIVE (NEGATIVE); KETONES,URINE (UA) NEGATIVE (NEGATIVE); LEUKOCYTE ESTERASE, URINE NEGATIVE (NEGATIVE); NITRITE,URINE NEGATIVE (NEGATIVE); OCCULT BLOOD,URINE NEGATIVE (NEGATIVE); PROTEIN,URINE NEGATIVE (NEGATIVE); UROBILINOGEN,URINE 0.2 (NORMAL) E.U./dL (NORMAL)
[2022-03-13 09:25] LABS: CLARITY,URINE CLEAR (CLEAR); HCG UR QUAL NEGATIVE
[2022-03-13 09:32] LABS: BASOPHILS # (AUTO) 0.1 10^3/uL (0.0-0.1); BASOPHILS % (AUTO) 0.6 %; EOSINOPHILS # (AUTO) 0.1 10^3/uL (0.0-0.7); HGB - HEMOGLOBIN 13.1 g/dL (12.0-16.0); LYMPHOCYTES # (AUTO) 1.7 10^3/uL (1.5-3.5); LYMPHOCYTES % (AUTO) 15.2 %; MEAN CORPUSCULAR HEMOGLOBIN 36.4 pg (27.0-31.0); MEAN CORPUSCULAR HGB CONC 34.5 g/dL (32.0-36.0); MEAN CORPUSCULAR VOLUME 105.6 fL (81.0-99.0); MEAN PLATELET VOLUME 10.3 fL (7.9-10.8); MONOCYTES # (AUTO) 0.6 10^3/uL (0.0-1.0); MONOCYTES % (AUTO) 5.5 %; NEUTROPHILS # (AUTO) 8.8 10^3/uL (1.5-6.6); NEUTROPHILS % (AUTO) 77.4 %; PLT - PLATELET COUNT 231 10^3/uL (130-450); RED CELL DISTRIBUTION WIDTH 15.1 % (12.0-15.0); WHITE BLOOD COUNT 11.3 x10^3/uL (4.8-10.8)
[2022-03-13 09:48] LABS: ALBUMIN 3.9 g/dL (3.2-5.5); ALBUMIN/GLOBULIN RATIO 1.3 (1.0-2.2); BILIRUBIN,TOTAL 0.7 mg/dL (0.2-1.0); CREATININE 0.6 mg/dL (0.4-1.0); POTASSIUM 3.3 mmol/L (3.5-5.0); TOTAL PROTEIN 6.8 g/dL (6.7-8.2)
[2022-03-13] MEDS ORDERED: HYDROmorphone 1 MG/ML CARPUJECT IVP STA ×2 (09:51→10:56)
[2022-03-13] MEDS ORDERED: FAMOTIDINE 20 MG/2 ML VIAL IVP STA (09:51)
[2022-03-13] MEDS ORDERED: DROPERIDOL 5 MG/2 ML VIAL IVP STA (09:51)
[2022-03-13] MEDS ORDERED: SODIUM CHLORIDE 0.9% 1,000 ML IV STA (09:51)
[2022-03-13 10:15] LABS: ETOH - ETHANOL 100.3 mg/dL
[2022-03-13] MEDS ORDERED: LIDOCAINE VISCOUS 2% 15 ML UDC MM STA (10:56)
[2022-03-13] MEDS ORDERED: MAG HYDROX/AL HYDROX/SIMETH 30 ML UDC PO STA (10:56)
--- NOTE | 2022-03-13 11:00 | ED Physician Documentation ---
PD HPI ABD PAIN - Stated complaint Stated Complaint: ABD PX - Chief complaint Chief Complaint: Abd Pain - History obtained from History obtained from: Patient - History of Present Illness Timing - onset: How many days ago (1-2) Timing - duration: Days (1-2) Timing - details: Abrupt onset, Still present (increased overnight into today.), Waxing and waning Quality: Cramping, Aching, Pain Location: RUQ, Epigastric Improved by: No: Eating, Vomiting Worsened by: Eating, Palpation. No: Breathing Associated symptoms: Nausea, Vomiting, Diarrhea (frequent loose stools). No: Fever, Hematemesis, Constipation, Melena Similar symptoms before: Diagnosis (gastritis/ulcer presumed. Has had pancreatitis in the past, but recent lipase testing in ER visits have been normal (one elevated to just 75). She states had not had any alcohol for about 3 weeks.) Recently seen: Emergency Dept (few weeks ago for similar episode.) Review of Systems Constitutional: denies: Fever, Chills Nose: denies: Rhinorrhea / runny nose, Congestion Throat: denies: Sore throat Respiratory: denies: Cough GI: reports: Abdominal Pain, Nausea, Vomiting, Diarrhea. denies: Constipation, Hematemesis, Bloody / black stool : denies: Dysuria, Frequency Skin: denies: Rash Musculoskeletal: denies: Neck pain, Back pain Neurologic: reports: Generalized weakness. 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 HEENT: Tonsil/Adenoidectomy - Present Medications Home Medications: Ambulatory Orders Medication Instructions Recorded Confirmed Ondansetron Odt [Zofran Odt] 4 mg TL Q6H PRN #10 tablet 10/06/21 03/13/22 Lipase/Protease/Amylase [Creon Dr 1 each PO TIDWM 01/08/22 03/13/22 24,000 Unit Capsule] HYDROcod/ACETAM 5/325 [[place] 5/325] 1 ea PO Q6H PRN #15 tablet 03/13/22 Lidocaine Viscous 2% [Xylocaine 5 ml PO Q4H PRN #100 ml 03/13/22 Viscous 2%] Pantoprazole [Protonix] 40 mg PO DAILY 30 Days #30 tablet 03/13/22 Sucralfate [Carafate] 1 gm PO ACHS #20 tablet 03/13/22 - Allergies Allergies/Adverse Reactions: Allergies Allergy/AdvReac Type Severity Reaction Status Date / Time No Known Drug Allergies Allergy Verified 03/13/22 09:12 - Social History Does the pt smoke?: Yes Smoking Status: Current every day smoker Does the pt drink ETOH?: No Does the pt have substance abuse?: Yes Substance Use and Type: Marijuana - Immunizations Immunizations are current?: Yes - POLST Patient has POLST: No POLST Status: Full Code PD ED PE NORMAL - Vitals Vital signs reviewed: Yes - General General: Alert and oriented X 3, Well developed/nourished, Other (appears in pain) - HEENT HEENT: Moist mucous membranes, Pharynx benign - Neck Neck: Supple, no meningeal sign, No adenopathy - Cardiac Cardiac: No murmur. No: RRR (regular but tachycardic. ) - Respiratory Respiratory: No respiratory distress, Clear bilaterally - Abdomen Abdomen: Soft, Non distended, No organomegaly, Other (tender with guarding epigastric area. No percussion tenderness. Lower abd not tender. ). No: Normal bowel sounds (diminished) - Female Female : Deferred - Rectal Rectal: Deferred - Back Back: No CVA TTP - Derm Derm: Normal color, Warm and dry - Extremities Extremities: Normal ROM s pain, No edema, No calf tenderness / cord - Neuro Neuro: Alert and oriented X 3, No motor deficit, Normal speech Results - Vitals Vitals: Vital Signs - 24 hr 03/13/22 03/13/22 03/13/22 09:09 09:42 11:04 Temperature 36.3 C L Heart Rate 110 H 101 H 93 Respiratory 18 12 15 Rate Blood Pressure 121/87 H 121/92 H 117/79 O2 Saturation 98 100 100 03/13/22 13:00 Temperature 36.5 C Heart Rate 88 Respiratory 16 Rate Blood Pressure 117/86 H O2 Saturation 100 Oxygen O2 Source Room air - Labs Labs: Laboratory Tests 03/13/22 03/13/22 03/13/22 09:14 09:28 09:28 WBC 11.3 H RBC 3.60 L Hgb 13.1 Hct 38.0 MCV 105.6 H MCH 36.4 H MCHC 34.5 RDW 15.1 H Plt Count 231 MPV 10.3 Neut # (Auto) 8.8 H Lymph # (Auto) 1.7 [place] # (Auto) 0.6 Eos # (Auto) 0.1 Baso # (Auto) 0.1 Absolute Nucleated RBC 0.00 Nucleated RBC % 0.0 Sodium 136 Potassium 3.3 L Chloride 103 Carbon Dioxide 22 Anion Gap 11.0 BUN 12 Creatinine 0.6 Estimated GFR (MDRD) 114 Glucose 102 H Calcium 9.0 Magnesium Total Bilirubin 0.7 AST 21 ALT 19 Alkaline Phosphatase 96 Total Protein 6.8 Albumin 3.9 Globulin 2.9 Albumin/Globulin Ratio 1.3 Lipase 31 Urine Color LIGHT YELLOW Urine Clarity CLEAR Urine pH 6.0 Ur Specific [place] <=1.005 Urine Protein NEGATIVE Urine Glucose (UA) NEGATIVE Urine Ketones NEGATIVE Urine Occult Blood NEGATIVE Urine Nitrite NEGATIVE Urine Bilirubin NEGATIVE Urine Urobilinogen 0.2 (NORMAL) Ur Leukocyte Esterase NEGATIVE Ur Microscopic Review NOT INDICATED Urine Culture Comments NOT INDICATED Urine HCG, Qual NEGATIVE Ethyl Alcohol 03/13/22 09:28 WBC RBC Hgb Hct MCV MCH MCHC RDW Plt Count MPV Neut # (Auto) Lymph # (Auto) [place] # (Auto) Eos # (Auto) Baso # (Auto) Absolute Nucleated RBC Nucleated RBC % Sodium Potassium Chloride Carbon Dioxide Anion Gap BUN Creatinine Estimated GFR (MDRD) Glucose Calcium Magnesium 2.0 Total Bilirubin AST ALT Alkaline Phosphatase Total Protein Albumin Globulin Albumin/Globulin Ratio Lipase Urine Color Urine Clarity Urine pH Ur Specific [place] Urine Protein Urine Glucose (UA) Urine Ketones Urine Occult Blood Urine Nitrite Urine Bilirubin Urine Urobilinogen Ur Leukocyte Esterase Ur Microscopic Review Urine Culture Comments Urine HCG, Qual Ethyl Alcohol 100.3 PD MEDICAL DECISION MAKING - ED course Complexity details: reviewed results, re-evaluated patient (stepwise improvement with IV meds. Also got notable improvement in pain with GI cocktail. ), considered differential, d/w patient Departure - Departure Disposition: 01 Home, Self Care Clinical Impression: Epigastric pain, Alcoholism Condition: Stable Record reviewed to determine appropriate education?: Yes Instructions: ED PUD Vs Gastritis Follow-Up: [facility] [place] [Provider Group] Prescriptions: Sucralfate [Carafate] 1 gm PO ACHS #20 tablet HYDROcod/ACETAM 5/325 [[place] 5/325] 1 ea PO Q6H PRN #15 tablet PRN Reason: Pain Pantoprazole [Protonix] 40 mg PO DAILY 30 Days #30 tablet Lidocaine Viscous 2% [Xylocaine Viscous 2%] 5 ml PO Q4H PRN #100 ml PRN Reason: Pain Comments: Avoid irritants of the stomach such as caffeine, spicy foods, alcohol. You did have some alcohol in your system so be careful about ingestions. Your symptoms sound likely to be a gastritis/ulcer. We should treat with acid reducing medicine. I wrote a prescription for pantoprazole to take daily for a month. Also coat the stomach with Carafate 3-4 times daily in particular before bedtime. Add antacid such as Maalox or Mylanta and you can combine the lidocaine with it as prescribed. Add Tylenol every 4-6 hours if needed for pain or hydrocodone/acetaminophen if needed for worse pain. Given the consistency of your upper abdominal pain, it would be prudent to check for the presence of an infection in the stomach lining that may be prolonging the gastritis symptoms. Obtain a stool sample at home and bring it to the lab to be tested for Helicobacter pylori through your primary care clinic. Recheck if not improving well over the next several days. I sent your prescriptions to [facility] pharmacy in [place]. I am prescribing a short course of narcotic pain medication for you. These are potentially dangerous and addictive medications that should be used carefully. These medications may constipate you. Take an [id number] stool softener such as docusate twice daily with plenty of water while taking these medications. If you go 24 hours without a bowel movement, take [id number] MiraLAX, per package instructions. Do not drink or drive while taking these medications. If you received narcotic or sedating medications while in the emergency department do not drive for 24 hours. Store this medication in a safe, secure place and out of reach of children. It is a violation of federal law to give or sell this medication to another person or to use in a manner other than prescribed. The ED will not refill narcotic prescriptions, including prescriptions lost or stolen. You can dispose of unwanted medications at the [facility]'s office or at several pharmacies such as [facility]. Discharge Date/Time: 03/13/22 13:36
[2022-03-13] MEDS ORDERED: HYDROmorphone 0.5 MG/0.5 ML SYRINGE IVP STA (12:52)
[2022-03-13 13:17] VITALS: BP 117/86
== END 2022-03-13 13:36 | disposition home or self-care (01) ==
LOC: ED 09:01
DX: R10.13 Epigastric pain (principal); F10.20 Alcohol dependence, uncomplicated; Y90.5 Blood alcohol level of 100-119 mg/100 ml; F17.200 Nicotine dependence, unspecified, uncomplicated
CPT/HCPCS: 36415; 80053; 80320; 81003; 81025; 83690; 83735; 85025; 96374; 96375; 96376; 99284; A9270; J1170; 81001; 87086; 87338

== ENCOUNTER 2022-03-26 08:58 | Emergency (ER) | payer MEDICAID ==
[2022-03-26] MEDS ORDERED: DROPERIDOL 5 MG/2 ML VIAL IVP STA (09:23)
[2022-03-26] MEDS ORDERED: LIDOCAINE VISCOUS 2% 15 ML UDC MM STA (09:23)
[2022-03-26] MEDS ORDERED: HYDROmorphone 1 MG/ML CARPUJECT IVP STA (09:23)
[2022-03-26] MEDS ORDERED: SODIUM CHLORIDE 0.9% 1,000 ML IV STA (09:23)
[2022-03-26] MEDS ORDERED: MAG HYDROX/AL HYDROX/SIMETH 30 ML UDC PO STA (09:23)
--- NOTE | 2022-03-26 09:25 | ED Physician Documentation ---
PD HPI ABD PAIN - Stated complaint Stated Complaint: ABD PX/BACK PX - Chief complaint Chief Complaint: Abd Pain - History obtained from History obtained from: Patient - Additional information Additional information: 36-year-old woman with recurrent abdominal pain. Previously has had pancreatitis in the past related to alcohol but the last time she had true pancreatitis with significantly elevated lipase was about 8 months ago. She says her last drink was a couple of days ago, she had been doing well with regard to alcohol but her dog . She also uses marijuana several times a day. She developed pain central abdominal pain 2 days ago which got worse overnight last night associated with blood flecked emesis. She is also had watery diarrhea. No sick contacts. No fevers. Review of Systems Ten Systems: 10 systems reviewed and negative Cardiac: denies: Chest pain / pressure, Palpitations Respiratory: denies: Dyspnea, Cough GI: reports: Abdominal Pain, Nausea, Vomiting, Diarrhea, Hematemesis. 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 HEENT: Tonsil/Adenoidectomy - Present Medications Home Medications: Ambulatory Orders Medication Instructions Recorded Confirmed Lipase/Protease/Amylase [Frank Dr 1 each PO TIDWM 01/08/22 03/26/22 24,000 Unit Capsule] Pantoprazole [Protonix] 40 mg PO DAILY 30 Days #30 tablet 03/13/22 03/26/22 Sucralfate [Carafate] 1 gm PO ACHS #20 tablet 03/13/22 03/26/22 HYDROcod/ACETAM 5/325 [Levels 5/325] 1 - 2 tab PO Q6H PRN #7 tablet 03/26/22 Ondansetron Odt [Zofran] 4 mg TL Q6H PRN #10 tablet 03/26/22 - Allergies Allergies/Adverse Reactions: Allergies Allergy/AdvReac Type Severity Reaction Status Date / Time No Known Drug Allergies Allergy Verified 03/13/22 09:12 - Social History Does the pt smoke?: Yes Smoking Status: Current every day smoker Does the pt drink ETOH?: No Does the pt have substance abuse?: Yes - Immunizations Immunizations are current?: Yes - POLST Patient has POLST: No POLST Status: Full Code PD ED PE NORMAL - Vitals Vital signs reviewed: Yes - General General: Alert and oriented X 3, No acute distress - Cardiac Cardiac: RRR, No murmur - Respiratory Respiratory: No respiratory distress, Clear bilaterally - Abdomen Abdomen: Normal bowel sounds, Soft, Non tender - Back Back: No CVA TTP, No spinal TTP - Derm Derm: Normal color, Warm and dry - Extremities Extremities: No edema, No calf tenderness / cord - Neuro Neuro: Alert and oriented X 3, Normal speech Results - Vitals Vitals: Vital Signs - 24 hr 03/26/22 03/26/22 09:14 10:50 Temperature 36.9 C Heart Rate 111 H 90 Respiratory 18 18 Rate Blood Pressure 131/107 H 137/47 H O2 Saturation 99 98 Oxygen O2 Source Room air - Labs Labs: Laboratory Tests 03/26/22 03/26/22 03/26/22 09:22 09:22 09:40 WBC 5.8 RBC 3.67 L Hgb 13.4 Hct 39.2 MCV 106.8 H MCH 36.5 H MCHC 34.2 RDW 14.6 Plt Count 159 MPV 9.9 Neut # (Auto) 4.1 Lymph # (Auto) 1.3 L [place] # (Auto) 0.4 Eos # (Auto) 0.1 Baso # (Auto) 0.0 Absolute Nucleated RBC 0.00 Nucleated RBC % 0.0 Sodium Potassium Chloride Carbon Dioxide Anion Gap BUN Creatinine Estimated GFR (MDRD) Glucose Calcium Magnesium Total Bilirubin AST ALT Alkaline Phosphatase Total Protein Albumin Globulin Albumin/Globulin Ratio Lipase Urine Color YELLOW Urine Clarity CLEAR Urine pH 6.0 Ur Specific [place] 1.020 Urine Protein NEGATIVE Urine Glucose (UA) NEGATIVE Urine Ketones NEGATIVE Urine Occult Blood NEGATIVE Urine Nitrite POSITIVE H Urine Bilirubin NEGATIVE Urine Urobilinogen 0.2 (NORMAL) Ur Leukocyte Esterase NEGATIVE Urine RBC 0-5 Urine WBC 0-3 Ur Squamous Epith Cells MOD Squamous H Urine Bacteria Moderate H Ur Microscopic Review INDICATED Urine Culture Comments NOT INDICATED Urine HCG, Qual NEGATIVE Stool H. pylori Ag NEGATIVE Ethyl Alcohol 03/26/22 09:40 WBC RBC Hgb Hct MCV MCH MCHC RDW Plt Count MPV Neut # (Auto) Lymph # (Auto) [place] # (Auto) Eos # (Auto) Baso # (Auto) Absolute Nucleated RBC Nucleated RBC % Sodium 139 Potassium 3.9 Chloride 107 Carbon Dioxide 22 Anion Gap 10.0 BUN 11 Creatinine 0.7 Estimated GFR (MDRD) 95 Glucose 114 H Calcium 9.4 Magnesium 2.0 Total Bilirubin 0.5 AST 34 ALT 25 Alkaline Phosphatase 126 H Total Protein 7.0 Albumin 3.8 Globulin 3.2 Albumin/Globulin Ratio 1.2 Lipase 55 H Urine Color Urine Clarity Urine pH Ur Specific [place] Urine Protein Urine Glucose (UA) Urine Ketones Urine Occult Blood Urine Nitrite Urine Bilirubin Urine Urobilinogen Ur Leukocyte Esterase Urine RBC Urine WBC Ur Squamous Epith Cells Urine Bacteria Ur Microscopic Review Urine Culture Comments Urine HCG, Qual Stool H. pylori Ag Ethyl Alcohol 50.2 PD MEDICAL DECISION MAKING - ED course ED course: 36-year-old woman presents with an exacerbation of chronic abdominal pain with benign exam. Differential diagnosis includes gastritis/ulcer, recurrent alcoholic pancreatitis, and/or cannabinoid hyperemesis. She is treated initially with IV fluids, 1 mg of Dilaudid, 2.5 mg of droperidol, and a GI cocktail. After the above interventions she was feeling much better. Passed a p.o. challenge and remained nontender on repeat evaluation. Counseled to quit both a lcohol and marijuana. Departure - Departure Disposition: 01 Home, Self Care Clinical Impression: Alcohol abuse with alcohol-induced disorder, Nausea and vomiting, Epigastric pain Condition: Good Record reviewed to determine appropriate education?: Yes Instructions: Abdominal Pain Prescriptions: HYDROcod/ACETAM 5/325 [Levels 5/325] 1 - 2 tab PO Q6H PRN #7 tablet PRN Reason: Pain Ondansetron Odt [Zofran] 4 mg TL Q6H PRN #10 tablet PRN Reason: Nausea / Vomiting Comments: You were seen today for recurrence of upper abdominal pain. Your lipase is only minimally elevated, not consistent with pancreatitis. This could be alcoholic gastritis versus cannabinoid hyperemesis syndrome. I recommend that you abstain from alcohol and all cannabis. I sent your prescriptions electronically to [facility] in [place]. Call your doctor to arrange a follow-up appointment, make the next available appointment. In the interim, return anytime if worse or if new symptoms develop. I am prescribing a short course of narcotic pain medication for you. These are potentially dangerous and addictive medications that should be used carefully. These medications may constipate you. Take an zypx-upa-fkrmqyj stool softener (docusate) twice daily with plenty of water while taking these medications. If you go 24 hours without a bowel movement, take [id number] miralax, per package instructions. Do not drink or drive while taking these medications. If you received narcotic or sedating medications while in the emergency department, do not drive for 24 hours. Store this medication in a safe, secure place and out of reach of children. It is a violation of federal law to give or sell this medication to another person or to use in a manner other than prescribed. The ED will not refill narcotic prescriptions, including prescriptions lost or stolen. To dispose of unwanted medications: 1. [facility] at [address] in [place] has a medication drop box. They accept prescription medications (in pill form) Friday through Friday 9:00 a.m. to 5:00 p.m. 2. [facility] accepts prescription medications (in pill form only) for disposal year round. Call for more information. 3. Contact the [facility] for the next [facility] sponsored prescription drug collection event. , [phone], or [phone]; Note that many narcotic pain relievers also contain Tylenol/acetaminophen. Please ensure that your total dose of acetaminophen from all sources does not exceed 3 g (3000 mg) per day. Discharge Date/Time: 03/26/22 11:01
[2022-03-26 09:30] LABS: BILIRUBIN,URINE NEGATIVE (NEGATIVE); GLUCOSE, URINE (UA) NEGATIVE (NEGATIVE); KETONES,URINE (UA) NEGATIVE (NEGATIVE); LEUKOCYTE ESTERASE, URINE NEGATIVE (NEGATIVE); NITRITE,URINE POSITIVE (NEGATIVE); OCCULT BLOOD,URINE NEGATIVE (NEGATIVE); PROTEIN,URINE NEGATIVE (NEGATIVE); UROBILINOGEN,URINE 0.2 (NORMAL) E.U./dL (NORMAL)
[2022-03-26 09:34] LABS: CLARITY,URINE CLEAR (CLEAR); HCG UR QUAL NEGATIVE
[2022-03-26 09:45] LABS: BASOPHILS % (AUTO) 0.3 %; EOSINOPHILS # (AUTO) 0.1 10^3/uL (0.0-0.7); EOSINOPHILS % (AUTO) 1.2 %; HCT - HEMATOCRIT 39.2 % (37.0-47.0); HGB - HEMOGLOBIN 13.4 g/dL (12.0-16.0); LYMPHOCYTES # (AUTO) 1.3 10^3/uL (1.5-3.5); LYMPHOCYTES % (AUTO) 22.1 %; MEAN CORPUSCULAR HEMOGLOBIN 36.5 pg (27.0-31.0); MEAN CORPUSCULAR HGB CONC 34.2 g/dL (32.0-36.0); MEAN CORPUSCULAR VOLUME 106.8 fL (81.0-99.0); MEAN PLATELET VOLUME 9.9 fL (7.9-10.8); MONOCYTES # (AUTO) 0.4 10^3/uL (0.0-1.0); MONOCYTES % (AUTO) 6.3 %; NEUTROPHILS # (AUTO) 4.1 10^3/uL (1.5-6.6); NEUTROPHILS % (AUTO) 69.9 %; PLT - PLATELET COUNT 159 10^3/uL (130-450); RED BLOOD COUNT 3.67 10^6/uL (4.20-5.40); RED CELL DISTRIBUTION WIDTH 14.6 % (12.0-15.0); WHITE BLOOD COUNT 5.8 x10^3/uL (4.8-10.8)
[2022-03-26 09:56] LABS: H. PYLORIS ANTIGEN STL NEGATIVE (Negative)
[2022-03-26 09:57] LABS: BACTERIA,URINE Moderate /HPF (None Seen); RBC,URINE 0-5 /HPF (0-5); SQUAMOUS EPITHELIAL CELL,UR MOD Squamous (<= Few); WBC,URINE 0-3 /HPF (0-5)
[2022-03-26 10:01] LABS: ALBUMIN 3.8 g/dL (3.2-5.5); ALBUMIN/GLOBULIN RATIO 1.2 (1.0-2.2); BILIRUBIN,TOTAL 0.5 mg/dL (0.2-1.0); CALCIUM 9.4 mg/dL (8.5-10.3); CREATININE 0.7 mg/dL (0.4-1.0); ETOH - ETHANOL 50.2 mg/dL; POTASSIUM 3.9 mmol/L (3.5-5.0)
[2022-03-26 10:51] VITALS: BP 137/47
== END 2022-03-26 11:01 | disposition home or self-care (01) ==
LOC: ED 08:58
DX: R10.13 Epigastric pain (principal); R11.2 Nausea with vomiting, unspecified; R19.7 Diarrhea, unspecified; F10.10 Alcohol abuse, uncomplicated; Z87.19 Personal history of other diseases of the digestive system; K21.9 Gastro-esophageal reflux disease without esophagitis; Z79.899 Other long term (current) drug therapy; F17.200 Nicotine dependence, unspecified, uncomplicated
CPT/HCPCS: 36415; 80053; 80320; 81001; 81025; 83690; 83735; 85025; 87338; 96374; 96375; 99283; 99284; A9270; J1170; 81003; 87086

== ENCOUNTER 2022-04-08 08:07 | Outpatient (CLI) | payer MEDICAID | END 2022-04-08 08:08 | disposition critical access hospital (66) | LOC: EMS 08:07 | DX: R10.12 Left upper quadrant pain (principal); R10.32 Left lower quadrant pain; R10.817 Generalized abdominal tenderness; R11.2 Nausea with vomiting, unspecified | CPT/HCPCS: A0425; A0427; A0999 ==

== ENCOUNTER 2022-04-08 08:31 | Emergency (ER) | payer MEDICAID ==
[2022-04-08] MEDS ORDERED: DROPERIDOL 5 MG/2 ML VIAL IVP STA ×2 (08:38→09:32)
[2022-04-08] MEDS ORDERED: PANTOPRAZOLE 40 MG VIAL IVP STA (08:38)
[2022-04-08] MEDS ORDERED: SODIUM CHLORIDE 0.9% 1,000 ML IV STA (08:39)
[2022-04-08] MEDS ORDERED: PHENobarbital 65 MG/ML VIAL IV STA (08:39)
--- NOTE | 2022-04-08 08:40 | ED Physician Documentation ---
PD HPI NVD - Stated complaint Stated Complaint: L SIDE ABD PX - History obtained from History obtained from: Patient, EMS - History of Present Illness Timing - onset: Today, Last night Timing - duration: Hours (12) Timing - details: Abrupt onset, Still present Associated symptoms: Abdominal pain (epigastric to LUQ. mild in RUQ.). No: Fever Contributing factors: Sick contact (her daughter had some nausea and vomiting this morning. Mild diarrhea x 2.), Alcohol use. No: Bad food Improved by: No: Vomiting Worsened by: Eating Similar symptoms before: Diagnosis (alcoholic gastritis/ulcer and also pancreatitis.) Recently seen: Emergency Dept (several weeks ago and had gastritis. She said she was going to contact for alcohol treatment. 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 denies: Abdominal Swelling, Diarrhea, Hematemesis, Bloody / black stool : denies: Dysuria, Frequency Skin: denies: Abrasion (s), Laceration (s) Neurologic: reports: Generalized weakness. 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: Other HEENT: Tonsil/Adenoidectomy - Present Medications Home Medications: Ambulatory Orders Medication Instructions Recorded Confirmed Pantoprazole [Protonix] 40 mg PO DAILY 30 Days #30 tablet 03/13/22 04/08/22 Sucralfate [Carafate] 1 gm PO ACHS #20 tablet 03/13/22 04/08/22 HYDROmorphone [Dilaudid] 2 mg PO Q6H PRN #20 tablet 04/08/22 LORazepam [Ativan] 1 mg PO Q6H PRN #15 tablet 04/08/22 Lipase/Protease/Amylase [Creon Dr 24,000 unit PO TIDWM 04/08/22 04/08/22 24,000 Unit Capsule] Ondansetron Odt [Zofran] 4 mg TL Q6H PRN #15 tablet 04/08/22 Promethazine Supp [Phenergan Supp] 25 mg ID Q6H PRN #10 supp 04/08/22 Promethazine [Phenergan] 25 mg PO Q6H PRN #10 tab 04/08/22 Sucralfate [Carafate] 1 gm PO ACHS #20 tablet 04/08/22 - Allergies Allergies/Adverse Reactions: Allergies Allergy/AdvReac Type Severity Reaction Status Date / Time No Known Drug Allergies Allergy Verified 03/13/22 09:12 - Living Situation Living Situation: reports: With family Living Arrangement: reports: At home - Social History Does the pt smoke?: Yes Smoking Status: Current every day smoker Does the pt drink ETOH?: Yes 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 Was going to call for detox ([facility]) on last visit to ER. patient says she did not.) Does the pt have substance abuse?: Yes - Family History Family history: reports: Non contributory - Immunizations Immunizations are current?: Yes - POLST Patient has POLST: No POLST Status: Full Code PD ED PE NORMAL - Vitals Vital signs reviewed: Yes - General General: Alert and oriented X 3, No acute distress, Well developed/nourished - HEENT HEENT: Pharynx benign. No: Moist mucous membranes - Neck Neck: Supple, no meningeal sign, No adenopathy - Cardiac Cardiac: No murmur. No: RRR (regular but tachycardic) - Respiratory Respiratory: No respiratory distress, Clear bilaterally - Abdomen Abdomen: Soft, Non distended, No organomegaly, Other (decreased bowel sounds. Abd tender at epidastritic and LUQ area. Some guarding and percussion tenderness. Lower abd not tender. ) - Female Female : Deferred - Rectal Rectal: Deferred - Back Back: No CVA TTP - Derm Derm: Normal color, Warm and dry - Extremities Extremities: Normal ROM s pain, No edema, No calf tenderness / cord - Neuro Neuro: Alert and oriented X 3, No motor deficit, Normal speech Results - Vitals Vitals: Vital Signs - 24 hr 04/08/22 04/08/22 04/08/22 08:39 11:18 12:00 Temperature 98.2 C H 36.4 C L Heart Rate 122 H 106 H 113 H Respiratory 17 17 16 Rate Blood Pressure 118/67 123/75 129/86 H O2 Saturation 100 98 98 Oxygen O2 Source Room air - Labs Labs: Laboratory Tests 04/08/22 04/08/22 04/08/22 08:47 08:47 10:32 WBC 6.3 RBC 3.74 L Hgb 13.4 Hct 39.7 MCV 106.1 H MCH 35.8 H MCHC 33.8 RDW 14.2 Plt Count 192 MPV 10.1 Neut # (Auto) 4.6 Lymph # (Auto) 1.0 L [place] # (Auto) 0.6 Eos # (Auto) 0.1 Baso # (Auto) 0.0 Absolute Nucleated RBC 0.00 Nucleated RBC % 0.0 Sodium 135 Potassium 3.5 Chloride 102 Carbon Dioxide 20 L Anion Gap 13.0 BUN 7 Creatinine 0.8 Estimated GFR (MDRD) 82 L Glucose 151 H Calcium 8.9 Magnesium 1.5 L Total Bilirubin 0.8 AST 116 H ALT 185 H Alkaline Phosphatase 140 H Total Protein 7.2 Albumin 4.0 Globulin 3.2 Albumin/Globulin Ratio 1.3 Lipase 570 H Nasal Adenovirus (PCR) NOT DETECTED Nasal B. parapertussis DNA (PCR) NOT DETECTED Nasal Coronavir 229E PCR NOT DETECTED Nasal Coronavir HKU1 PCR NOT DETECTED Nasal Coronavir NL63 PCR NOT DETECTED Nasal Coronavir OC43 PCR NOT DETECTED Nasal Enterovir/Rhinovir PCR NOT DETECTED Nasal Influenza B PCR NOT DETECTED Nasal Influenza A PCR NOT DETECTED Nasal Parainfluen 1 PCR NOT DETECTED Nasal Parainfluen 2 PCR NOT DETECTED Nasal Parainfluen 3 PCR NOT DETECTED Nasal Parainfluen 4 PCR NOT DETECTED Nasal RSV (PCR) NOT DETECTED Nasal B.pertussis DNA PCR NOT DETECTED Nasal C.pneumoniae (PCR) NOT DETECTED Donta Human Metapneumo PCR NOT DETECTED Nasal M.pneumoniae (PCR) NOT DETECTED Nasal SARS-CoV-2 (PCR) NOT DETECTED Ethyl Alcohol < 5.0 PD MEDICAL DECISION MAKING - ED course Complexity details: reviewed results (elevated lipase c/w pancreatitis flare up. ), re-evaluated patient (The patient has decrease in her pain in a stepwise pattern with repeat doses of medicines. She is not nauseous or vomiting now. She does have elevated lipase so recurrent pancreatitis. She opts for trying to go home as she has her daughters to take care of.), considered differential (alcoholism with prior pancreatitis and ulcers. Could be either or both among other things as well. ), d/w patient Departure - Departure Disposition: 01 Home, Self Care Clinical Impression: Alcohol withdrawal, Pancreatitis, acute, Nausea and vomiting, Upper abdominal pain Condition: Stable Record reviewed to determine appropriate education?: Yes Instructions: ED Pancreatitis, ED Nausea Vomiting Prescriptions: LORazepam [Ativan] 1 mg PO Q6H PRN #15 tablet PRN Reason: Alcohol Withdrawal Sucralfate [Carafate] 1 gm PO ACHS #20 tablet HYDROmorphone [Dilaudid] 2 mg PO Q6H PRN #20 tablet PRN Reason: Pain Promethazine [Phenergan] 25 mg PO Q6H PRN #10 tab PRN Reason: Nausea / Vomiting Promethazine Supp [Phenergan Supp] 25 mg ID Q6H PRN #10 supp PRN Reason: Nausea / Vomiting Ondansetron Odt [Zofran] 4 mg TL Q6H PRN #15 tablet PRN Reason: Nausea / Vomiting Comments: It does sound likely that you have some irritation of the stomach such as gastritis given some of the location of your pain. Your lipase however is elevated consistent with recurrent pancreatitis as well. Of course avoid alcohol. Seek treatment to and support groups to help with this. Clear liquid diet over the the next few days. Continue with your pancreatic enzymes and pantoprazole. For nausea and vomiting, you can use the ondansetron as previous. If its not sufficiently helping the symptoms, you can also add promethazine either tablet orally or suppository. I prescribed both. For the pain I am prescribing a small amount of hydromorphone as you said that works best for you in the past. You will also likely have some continued alcohol withdrawal symptoms and I prescribed lorazepam 1 tablet 3 times daily to help with symptoms of that. Also I would suggest coating your stomach with antacid type medicines. I prescribed Carafate 4 times daily for the next 5 days. I understand that you are opting to try going home and seeing how your symptoms do with that. It may work just fine. However if you are having persisting pain or worse symptoms uncontrolled by the medication, and return to the ER. I sent your prescriptions to [facility] in [place]. I am prescribing a short course of narcotic pain medication for you. These are potentially dangerous and addictive medications that should be used carefully. These medications may constipate you. Take an qbmt-wlb-yfjprgc stool softener such as docusate twice daily with plenty of water while taking these medications. If you go 24 hours without a bowel movement, take arvt-yjk-fxjqebl MiraLAX, per package instructions. Do not drink or drive while taking these medications. If you received narcotic or sedating medications while in the emergency department do not drive for 24 hours. Store this medication in a safe, secure place and out of reach of children. It is a violation of federal law to give or sell this medication to another p erson or to use in a manner other than prescribed. The ED will not refill narcotic prescriptions, including prescriptions lost or stolen. You can dispose of unwanted medications at [facility] office or at several pharmacies such as [facility]. Discharge Date/Time: 04/08/22 12:06
[2022-04-08 08:52] LABS: BASOPHILS % (AUTO) 0.5 %; EOSINOPHILS # (AUTO) 0.1 10^3/uL (0.0-0.7); EOSINOPHILS % (AUTO) 1.7 %; HCT - HEMATOCRIT 39.7 % (37.0-47.0); HGB - HEMOGLOBIN 13.4 g/dL (12.0-16.0); LYMPHOCYTES % (AUTO) 16.3 %; MEAN CORPUSCULAR HEMOGLOBIN 35.8 pg (27.0-31.0); MEAN CORPUSCULAR HGB CONC 33.8 g/dL (32.0-36.0); MEAN CORPUSCULAR VOLUME 106.1 fL (81.0-99.0); MEAN PLATELET VOLUME 10.1 fL (7.9-10.8); MONOCYTES # (AUTO) 0.6 10^3/uL (0.0-1.0); MONOCYTES % (AUTO) 8.8 %; NEUTROPHILS # (AUTO) 4.6 10^3/uL (1.5-6.6); NEUTROPHILS % (AUTO) 72.5 %; PLT - PLATELET COUNT 192 10^3/uL (130-450); RED BLOOD COUNT 3.74 10^6/uL (4.20-5.40); RED CELL DISTRIBUTION WIDTH 14.2 % (12.0-15.0); WHITE BLOOD COUNT 6.3 x10^3/uL (4.8-10.8)
[2022-04-08 09:17] LABS: ALBUMIN/GLOBULIN RATIO 1.3 (1.0-2.2); ETOH - ETHANOL < 5.0 mg/dL; MAGNESIUM 1.5 mg/dL (1.7-2.8); TOTAL PROTEIN 7.2 g/dL (6.7-8.2)
[2022-04-08] MEDS ORDERED: HYDROmorphone 1 MG/ML CARPUJECT IVP STA ×3 (09:32→10:42)
[2022-04-08] MEDS ORDERED: MAGNESIUM SULFATE 2 GRAM 2 GM/50 ML BAG IV ONE (09:32)
[2022-04-08] MEDS ORDERED: diphenhydrAMINE INJ 50 MG/ML VIAL IVP STA (09:33)
[2022-04-08 09:37] LABS: ALKALINE PHOSPHATASE 140 IU/L (42-121); ALT ALANINE AMINOTRANSFERASE 185 IU/L (10-60); AST ASPARTATE AMINOTRANSFERASE 116 IU/L (10-42); BILIRUBIN,TOTAL 0.8 mg/dL (0.2-1.0); BUN - BLOOD UREA NITROGEN 7 mg/dL (6-20); CALCIUM 8.9 mg/dL (8.5-10.3); CARBON DIOXIDE - CO2 20 mmol/L (21-32); CHLORIDE 102 mmol/L (101-111); CREATININE 0.8 mg/dL (0.4-1.0); GFR - MDRD 82 (>89); GLUCOSE 151 mg/dL (70-100); LIPASE 570 U/L (22-51); POTASSIUM 3.5 mmol/L (3.5-5.0); SODIUM 135 mmol/L (135-145)
[2022-04-08 11:34] LABS: B. PARAPERTUSSIS- RESP PCR PAN NOT DETECTED; B. PERTUSSIS- RESP PCR PANEL NOT DETECTED; C. PNEUMONIAE- RESP PCR PANEL NOT DETECTED; CORONAVIRUS 229E-RESP PCR NOT DETECTED; CORONAVIRUS HKU1-RESP PCR NOT DETECTED; CORONAVIRUS NL63-RESP PCR NOT DETECTED; CORONAVIRUS OC43-RESP PCR NOT DETECTED; HUMAN METAPNEUMOVIRUS NOT DETECTED; INFLUENZA A- RESP PCR PANEL NOT DETECTED; INFLUENZA B - RESP PCR PANEL NOT DETECTED; M. PNEUMONIAE- RESP PCR PANEL NOT DETECTED; PARAINFLUENZA VIRUS 1 NOT DETECTED; PARAINFLUENZA VIRUS 2 NOT DETECTED; PARAINFLUENZA VIRUS 3 NOT DETECTED; PARAINFLUENZA VIRUS 4 NOT DETECTED; RHINOVIRUS/ENTEROVIRUS NOT DETECTED; RSV- RESP PCR PANEL NOT DETECTED; SARS-CoV-2 -RESP PCR PANEL NOT DETECTED
[2022-04-08] MEDS ORDERED: KETAMINE 500 MG/10 ML VIAL IVP STA (11:35)
[2022-04-08 12:02] VITALS: BP 129/86
== END 2022-04-08 12:06 | disposition home or self-care (01) ==
LOC: EDUNIT# → ED 08:31
DX: K85.90 Acute pancreatitis without necrosis or infection, unspecified (principal); F10.239 Alcohol dependence with withdrawal, unspecified; K21.9 Gastro-esophageal reflux disease without esophagitis; Z87.11 Personal history of peptic ulcer disease; Z79.899 Other long term (current) drug therapy; F17.200 Nicotine dependence, unspecified, uncomplicated
CPT/HCPCS: 36415; 80053; 80320; 83690; 83735; 85025; 87633; 96365; 96375; 96376; 99283; 99285; J1170; J1200

== ENCOUNTER 2022-04-09 09:34 | Outpatient (CLI) | payer MEDICAID | END 2022-04-09 23:59 | disposition critical access hospital (66) | LOC: EMS 09:34 | DX: R10.10 Upper abdominal pain, unspecified (principal) | CPT/HCPCS: A0425; A0429; A0999 ==

== ENCOUNTER 2022-04-09 09:57 | Inpatient (IN) | payer MEDICAID ==
--- NOTE | 2022-04-09 10:16 | ED Physician Documentation ---
PD HPI ABD PAIN - Stated complaint Stated Complaint: ABD PX - Chief complaint Chief Complaint: Abd Pain - History obtained from History obtained from: Patient - History of Present Illness Timing - onset: How many days ago (few) Timing - duration: Days (few days of upper abd pain, increased and associated with repetitive vomiting. Seen yesterday in ER with same and had multiple meds for moderate improvement of symptoms. Wanted to try outpt. Pt states repetitive vomiting at home overnight and severe pain. Denies alcohol in the interim.) Timing - details: Gradual onset, Still present Quality: Sharp, Stabbing, Pain Location: RUQ, Epigastric Radiation: Upper back Improved by: No: Vomiting Worsened by: Eating, Moving, Palpation. No: Breathing Associated symptoms: Nausea, Vomiting. No: Fever, Hematemesis, Diarrhea, Constipation, Melena Similar symptoms before: Diagnosis (Pancreatitis and gastritis episodes in the past related to alcohol.) Recently seen: Emergency Dept (yesterday) Review of Systems Constitutional: denies: Fever Nose: denies: Rhinorrhea / runny nose, Congestion Throat: denies: Sore throat Respiratory: denies: Cough GI: reports: Abdominal Pain, Nausea, Vomiting. denies: Abdominal Swelling, Constipation, Diarrhea, Bloody / black stool : denies: Dysuria Skin: denies: Rash Musculoskeletal: denies: Neck pain Neurologic: reports: Generalized weakness. 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 HEENT: Tonsil/Adenoidectomy - Present Medications Home Medications: Ambulatory Orders Medication Instructions Recorded Confirmed Pantoprazole [Protonix] 40 mg PO DAILY 30 Days #30 tablet 03/13/22 04/08/22 HYDROmorphone [Dilaudid] 2 mg PO Q6H PRN #20 tablet 04/08/22 04/09/22 LORazepam [Ativan] 1 mg PO Q6H PRN #15 tablet 04/08/22 04/09/22 Lipase/Protease/Amylase [Creon Dr 24,000 unit PO TIDWM 10/24/22 10/25/22 24,000 Unit Capsule] Ondansetron Odt [Zofran] 4 mg TL Q6H PRN #15 tablet 04/08/22 04/09/22 Promethazine Supp [Phenergan Supp] 25 mg [place] Q6H PRN #10 supp 04/08/22 04/09/22 Promethazine [Phenergan] 25 mg PO Q6H PRN #10 tab 04/08/22 04/09/22 Sucralfate [Carafate] 1 gm PO ACHS #20 tablet 04/08/22 04/09/22 - Allergies Allergies/Adverse Reactions: Allergies Allergy/AdvReac Type Severity Reaction Status Date / Time No Known Drug Allergies Allergy Verified 04/09/22 10:09 - Living Situation Living Situation: reports: With family (2 daughters. Her mother lives in the area. ) Living Arrangement: reports: At home - Social History Does the pt smoke?: Yes Smoking Status: Current every day smoker Does the pt drink ETOH?: Yes ETOH Use: Other (long history of alcoholism. ) Does the pt have substance abuse?: Yes Substance Use and Type: Marijuana - Immunizations Immunizations are current?: Yes - POLST Patient has POLST: No POLST Status: Full Code PD ED PE NORMAL - Vitals Vital signs reviewed: Yes - General General: Alert and oriented X 3, Well developed/nourished, Other (sitting up with emesis bag in hand, with bilious small emesis and dry heaving. ) - HEENT HEENT: PERRL (nonicteric). No: Moist mucous membranes - Neck Neck: Supple, no meningeal sign, No adenopathy - Cardiac Cardiac: No murmur. No: RRR (tachycardic but regular) - Respiratory Respiratory: Clear bilaterally - Abdomen Abdomen: Non distended, Other (Markedly tender in the epigastric to right upper quadrant area with local guarding and percussion tenderness. Lower abdomen nontender. No referred or rebound tenderness.). No: Normal bowel sounds (diminished) - Female Female : Deferred - Rectal Rectal: Deferred - Back Back: No CVA TTP - Derm Derm: Normal color, Warm and dry Results - Vitals Vitals: Vital Signs - 24 hr 04/09/22 04/09/22 10:09 12:23 Temperature 37 C Heart Rate 111 H 101 H Respiratory 18 16 Rate Blood Pressure 119/86 H 146/96 H O2 Saturation 100 98 Oxygen O2 Source Room air - Labs Labs: Laboratory Tests 04/09/22 04/09/22 04/09/22 10:22 10:22 10:22 WBC 8.3 RBC 3.70 L Hgb 13.3 Hct 40.2 MCV 108.6 H MCH 35.9 H MCHC 33.1 RDW 14.7 Plt Count 152 MPV 10.4 Neut # (Auto) 6.7 H Lymph # (Auto) 0.7 L Hendricks # (Auto) 0.9 Eos # (Auto) 0.0 Baso # (Auto) 0.0 Absolute Nucleated RBC 0.00 Nucleated RBC % 0.0 Sodium 132 L Potassium 3.1 L Chloride 102 Carbon Dioxide 21 Anion Gap 9.0 BUN 7 Creatinine 0.6 Estimated GFR (MDRD) 114 Glucose 138 H Calcium 8.6 Total Bilirubin 0.8 AST 39 ALT 104 H Alkaline Phosphatase 121 Total Protein 6.2 L Albumin 3.4 Globulin 2.8 Albumin/Globulin Ratio 1.2 Lipase 414 H Urine Color Urine Clarity Urine pH Ur Specific [place] Urine Protein Urine Glucose (UA) Urine Ketones Urine Occult Blood Urine Nitrite Urine Bilirubin Urine Urobilinogen Ur Leukocyte Esterase Urine RBC Urine WBC Ur Squamous Epith Cells Urine Bacteria Ur Microscopic Review Urine Culture Comments Urine HCG, Qual Ethyl Alcohol < 5.0 04/09/22 10:30 WBC RBC Hgb Hct MCV MCH MCHC RDW Plt Count MPV Neut # (Auto) Lymph # (Auto) Hendricks # (Auto) Eos # (Auto) Baso # (Auto) Absolute Nucleated RBC Nucleated RBC % Sodium Potassium Chloride Carbon Dioxide Anion Gap BUN Creatinine Estimated GFR (MDRD) Glucose Calcium Total Bilirubin AST ALT Alkaline Phosphatase Total Protein Albumin Globulin Albumin/Globulin Ratio Lipase Urine Color DARK YELLOW Urine Clarity CLEAR Urine pH 5.5 Ur Specific [place] >=1.030 H Urine Protein 30 H Urine Glucose (UA) NEGATIVE Urine Ketones TRACE Urine Occult Blood NEGATIVE Urine Nitrite POSITIVE H Urine Bilirubin NEGATIVE Urine Urobilinogen 1 (NORMAL) Ur Leukocyte Esterase NEGATIVE Urine RBC 0-5 Urine WBC 0-3 Ur Squamous Epith Cells MOD Squamous H Urine Bacteria Moderate H Ur Microscopic Review INDICATED Urine Culture Comments NOT INDICATED Urine HCG, Qual NEGATIVE Ethyl Alcohol PD MEDICAL DECISION MAKING - ED course Complexity details: reviewed results, re-evaluated patient (pain no better. Emesis/nausea minimally improved. nonproductive dry heaving on recheck. Will give further meds. ), considered differential, d/w patient ED course: Reexam after repeat medications, the patient is still complaining of nausea but no active vomiting after immediately after the antiemetic. However still intractable pain. We will repeat pain medications. She feels unable to take oral intake. Multiple doses of pain medicine and repeated doses of antiemetic. She is still symptomatic and has remained symptomatic from yesterday where she was seen in the ER with multiple medications as well. Consideration for admission yesterday but she had to be home because of her daughters and subsequently requested discharge. She states continued pain and repetitive vomiting overnight. Departure - Departure Disposition: ED Place in Observation Clinical Impression: Intractable abdominal pain, Alcohol abuse Acute pancreatitis Qualifiers: Pancreatitis type: alcohol induced Acute pancreatitis complication: unspecified Qualified Code(s): K85.20 - Alcohol induced acute pancreatitis without necrosis or infection Nausea and vomiting Qualifiers: Vomiting type: bilious vomiting Qualified Code(s): R11.14 - Bilious vomiting Condition: Stable Record reviewed to determine appropriate education?: Yes
[2022-04-09 10:27] LABS: BASOPHILS % (AUTO) 0.1 %; EOSINOPHILS % (AUTO) 0.5 %; HCT - HEMATOCRIT 40.2 % (37.0-47.0); HGB - HEMOGLOBIN 13.3 g/dL (12.0-16.0); LYMPHOCYTES # (AUTO) 0.7 10^3/uL (1.5-3.5); LYMPHOCYTES % (AUTO) 8.9 %; MEAN CORPUSCULAR HEMOGLOBIN 35.9 pg (27.0-31.0); MEAN CORPUSCULAR HGB CONC 33.1 g/dL (32.0-36.0); MEAN CORPUSCULAR VOLUME 108.6 fL (81.0-99.0); MEAN PLATELET VOLUME 10.4 fL (7.9-10.8); MONOCYTES # (AUTO) 0.9 10^3/uL (0.0-1.0); MONOCYTES % (AUTO) 10.2 %; NEUTROPHILS # (AUTO) 6.7 10^3/uL (1.5-6.6); NEUTROPHILS % (AUTO) 80.1 %; PLT - PLATELET COUNT 152 10^3/uL (130-450); RED CELL DISTRIBUTION WIDTH 14.7 % (12.0-15.0); WHITE BLOOD COUNT 8.3 x10^3/uL (4.8-10.8)
[2022-04-09] MEDS ORDERED: HYDROmorphone 2 MG/ML VIAL IVP STA (10:39)
[2022-04-09] MEDS ORDERED: SODIUM CHLORIDE 0.9% 1,000 ML IV STA (10:39)
[2022-04-09] MEDS ORDERED: DROPERIDOL 5 MG/2 ML VIAL IVP STA (10:39)
[2022-04-09] MEDS ORDERED: PANTOPRAZOLE 40 MG VIAL IVP STA (10:41)
[2022-04-09 10:46] LABS: GLUCOSE, URINE (UA) NEGATIVE (NEGATIVE); KETONES,URINE (UA) TRACE mg/dL (NEGATIVE); LEUKOCYTE ESTERASE, URINE NEGATIVE (NEGATIVE); NITRITE,URINE POSITIVE (NEGATIVE); OCCULT BLOOD,URINE NEGATIVE (NEGATIVE); PH,URINE 5.5 PH (5.0-7.5); PROTEIN,URINE 30 mg/dL (NEGATIVE); UROBILINOGEN,URINE 1 (NORMAL) E.U./dL (NORMAL)
[2022-04-09 10:50] LABS: CLARITY,URINE CLEAR (CLEAR)
[2022-04-09 10:52] LABS: BILIRUBIN,URINE NEGATIVE (NEGATIVE); ICTOTEST,URINE NEGATIVE
[2022-04-09 10:56] LABS: HCG UR QUAL NEGATIVE
[2022-04-09 11:01] LABS: WBC,URINE 0-3 /HPF (0-5)
[2022-04-09 11:02] LABS: BACTERIA,URINE Moderate /HPF (None Seen); RBC,URINE 0-5 /HPF (0-5); SQUAMOUS EPITHELIAL CELL,UR MOD Squamous (<= Few)
[2022-04-09 11:28] LABS: ALBUMIN 3.4 g/dL (3.2-5.5); ALBUMIN/GLOBULIN RATIO 1.2 (1.0-2.2); BILIRUBIN,TOTAL 0.8 mg/dL (0.2-1.0); CALCIUM 8.6 mg/dL (8.5-10.3); CREATININE 0.6 mg/dL (0.4-1.0); POTASSIUM 3.1 mmol/L (3.5-5.0); TOTAL PROTEIN 6.2 g/dL (6.7-8.2)
[2022-04-09] MEDS ORDERED: HYDROmorphone 1 MG/ML CARPUJECT IVP STA (12:16)
[2022-04-09] MEDS ORDERED: KETOROLAC 15 MG/ML VIAL IVP STA (13:20)
[2022-04-09] MEDS ORDERED: ONDANSETRON 4 MG/2 ML VIAL IVP STA (13:20)
--- NOTE | 2022-04-09 13:24 | HISTORY & PHYSICAL EXAMINATION ---
Chief Complaint - Chief Complaint Chief Complaint: abd pain History of Present Illness - Admitted From Admitted From:: home - History Obtained From Records Reviewed: [facility] History obtained from: patient and Dr. Durán Exam Limitations: none - History of Present Illness HPI Comment/Other: The patient is presenting to the emergency room again because of abdominal pain. She was seen in the emergency room for the same abdominal pain yesterday, treated for pancreatitis and alcohol withdrawal, and now returns because she says the medications are not working. She has nonstop nausea and vomiting. The vomiting is not producing anything and she just has dry heaving. This will be her fourth or fifth admission this year for alcoholic pancreatitis. She denies drinking alcohol on some of her admissions but with this admission does admit that she was drinking in between discharge and now. She drank 2 small drinks on April 07. But since discharge from the last time to now visit the only alcoholic drink she had. She said that her diet was stable, she was taking her Creon. No high fat. Small meals. No alcohol until April 07. On April 05 she had urgency, frequency, dysuria. That started abdominal pain, nausea. By the she had dry heaves and could not keep anything down. She seemed to improve on the and that is when she had 2 small drinks when she was out with family. But then the abdominal pain started, and the dry heaves. Pain is epigastric, left upper quadrant and described as a constant burning ache occasionally accompanied by severe sharp stabbing that is fleeting. If she take s a deep breath or coughs it is worse. She is still having flatus, but is not producing much stool because she is not eating very much. She has had nothing to eat for about 2 days and had decreased p.o. intake over the last few days. In addition to the abdominal pain she has bilateral flank pain. All of this is caused her to have hiccups. And she is tearful when she states that the hiccups are sheer agony because every time it happens, the abdominal pain and flank pain is agonizing. She denies fever, chills, cough. There is no bloody emesis, no bloody stool. No dark tarry stools. In the emergency room temperature is 37. Heart rate is tachycardic at 101 and 111. Blood pressure is stable at 119 systolic or 146 systolic. Respirations are 18. Unlabored. She is 98 to 100% on room air. The emergency room provider described seeing her several times over the course of her ED visit. Each time she was sitting up in bed with dry heaves in the emesis bag held up to her face. No intervention on his part which included antiemetics and pain medicines or IV fluids resulted in improvement. Mucous membranes are moist. She is tachycardic. Lungs are clear. She is markedly tender in the epigastric to right upper quadrant area with local guarding and percussion and tenderness. Lower abdomen is nontender. She has diminished bowel sounds but they are present. White cell count is 8.3. Hemoglobin 13.3. MCV 108. Platelets 152. Sodium 132. Potassium 3.1. BUN and creatinine normal. Random glucose 138. ALT is 104. Lipase 414. Urine is dark yellow with positive nitrites, negative leukocyte Estrace. She has squamous cells and bacteria. Culture will not be done. She had a CT of abdomen and pelvis in September, and 2 in November of this year. 1 was not done with this stay. Her gallbladder has a focus of low-attenuation within the uncinate process. I believe this is a typo error and they may be talking about her pancreas. A fat-containing ventral hernia. She is now admitted to the hospital for intractable nausea vomiting due to abdominal pain which is due to probable chronic low-grade pancreatitis. She has done this before so she knows she is can be put on n.p.o. except for ice chips. Again she is just tearful. She is still miserable with having to live through this all over again. She asked if we could please let her have popsicles in addition to the ice chips. History - Past Medical History Cardiovascular: reports: None Respiratory: reports: None Neuro: reports: Headaches Endocrine/Autoimmune: reports: None GI: reports: GERD, Ulcers, Pancreatitis, Cholelithiasis ACCOUNT MANAGER B2B: reports: None : reports: Kidney stones HEENT: reports: None Psych: reports: Depression, Anxiety, Panic attacks Musculoskeletal: reports: None Derm: reports: None MRSA Hx?: No - Past Surgical History /ACCOUNT MANAGER B2B: reports: Other HEENT: reports: Tonsil/Adenoidectomy - Family & Social History Family History: Mother: Alive and Well Family History Comment/Other: Her mother has history of thyroid disease. Living arrangement: At home Living Situation: With family Social History Notes: She previously drank alcohol on a consistent basis but now barely has any. She smokes a couple cigarettes a day and has been doing so for the past 16 years. She lives with her daughter and with her mother. She works full-time. - Substance History Use: Uses substance without health or social issues: Tobacco - POLST Patient has POLST: No POLST Status: Full Code Meds/Allgy - Home Medications Home Medications: Ambulatory Orders Medication Instructions Recorded Confirmed Pantoprazole [Protonix] 40 mg PO DAILY 30 Days #30 tablet 03/13/22 04/09/22 HYDROmorphone [Dilaudid] 2 mg PO Q6H PRN #20 tablet 04/08/22 04/09/22 LORazepam [Ativan] 1 mg PO Q6H PRN #15 tablet 04/08/22 04/09/22 Lipase/Protease/Amylase [Creon Dr 24,000 unit PO TIDWM 04/08/22 04/09/22 24,000 Unit Capsule] Ondansetron Odt [Zofran] 4 mg TL Q6H PRN #15 tablet 04/08/22 04/09/22 Acetaminophen [Tylenol] 650 mg PO Q6H PRN 04/09/22 04/09/22 Loratadine [Claritin] 10 mg PO DAILY PRN 04/09/22 04/09/22 Sucralfate [Carafate] 1 gm PO QPM 04/09/22 04/09/22 - Allergies Allergies/Adverse Reactions: Allergies Allergy/AdvReac Type Severity Reaction Status Date / Time No Known Drug Allergies Allergy Verified 04/09/22 10:09 Review of Systems - Constitutional Constitutional: reports: Fatigue, Malaise, Weakness, Poor appetite. denies: Fever, Chills, Night sweats - Eyes Eyes: denies: Pain, Irritation, Amaurosis, Blurred vision - Ears, Nose & Throat Ears, Nose & Throat: denies: Ear pain, Hearing loss, Hearing aids, Nasal pain, Nasal discharge, Sore throat, Hoarseness - Cardiovascular Cariovascular: denies: Irregular heart rate, Palpitations, Chest pain, Edema, Syncope - Respiratory Respiratory: denies: Cough, Sputum production, Wheezing - Gastrointestinal Gastrointestinal: reports: Abdominal pain, Abdominal distention, Nausea, Vomiting, Reflux/heartburn, Bloating, Poor appetite. denies: Diarrhea, Change in bowel habits, Black stools, Bloody stools, Coffee grounds emesis - Genitourinary Genitourinary: reports: Dysuria, Frequency, Urgency, Flank pain. denies: Hematuria - Musculoskeletal Musculoskeletal: reports: Back pain (Over her flank area.). denies: Muscle pain, Muscle aches, Stiffness - Integumentary Integumentary: denies: Rash, Pruritis, Lesions, Dryness - Neurological Neurological: reports: Headache. denies: General weakness, Focal weakness, Dizziness, Pre-existing deficit, Abnormal gait - Psychiatric Psychiatric: reports: Depression. denies: Anxiety, Suicidal - Endocrine Endocrine: denies: Polyuria, Polydypsia, Polyphagia - Hematologic/Lymphatic Hematologic/Lymphatic: denies: Anemia, Bruising Prior Level of Functionality: Independent with feeding herself, dressing herself. Driving. Exam - Vital Signs Reviewed Vital Signs: Yes Vital Signs: Vital Signs x48h Temp Pulse Resp BP Pulse Ox 04/09/22 12:23 101 H 16 146/96 H 98 04/09/22 10:09 37 C 111 H 18 119/86 H 100 - Physical Exam General Appearance: positive: Moderate distress, Other (Tearful, very sad. She said she is emotionally exhausted from having to live through this again. The hiccups caused terrible 10 out of 10 pain. When they are not present its a 7 out of 10 pain Dilaudid half a milligram is not helping) Eyes Bilateral: positive: PERRL, EOMI ENT: positive: Pharynx nml Neck: positive: No JVD. negative: Stiff neck Respiratory: positive: No respiratory distress. negative: Wheezes, Rales, Rhonchi Cardiovascular: positive: Regular rate & rhythm Peripheral Pulses: positive: 1+ Abdomen: positive: Tenderness (With diffuse distention, pain in the epigastrium and left upper quadrant with near guarding) Back: positive: CVA tenderness (R), CVA tenderness (L) Skin: positive: Color nml, No rash, Warm Extremities: positive: Full ROM, No pedal edema Neurologic/Psychiatric: positive: Oriented x3, CN's nml (2-12), Motor nml. negative: Mood/affect nml (Tearful, depressed) Conclusion/Plan - Problem List (1) Recurrent pancreatitis Conclusion/Plan: In a patient who has a previous history of alcoholic pancreatitis is her first presentation. Since that time she feels like her pancreatitis is not from alcohol abuse but she does admit to intermittent drinking. This time symptoms started 2 days before her alcohol use, but I do not think 2 small drinks helped. I have reiterated to the patient yet again that she really should not drink at all, ever. Not even mouthwash. Plan: Inpatient status IV fluids N.p.o. except for ice chips and popsicles Antiemetics, increase Dilaudid from 0.5 to 1 mg every 2 hours as needed (2) Intractable abdominal pain Conclusion/Plan: Due to presumed pancreatitis. No CT was done with this admission in the ER. However the patient is also presenting with flank pain. She says this is new. She does not have flank pain before. And she gives symptoms of a UTI. Plan: CT of abdomen and pelvis to assess pancreatitis, pain, and possible pyelonephritis (3) Nausea and vomiting Conclusion/Plan: Due to recurrent pancreatitis and pain. Again she will receive antiemetics, IV fluids During my exam she had 2 episodes of dry heaves. But no outright productive emesis. I am asking the nurses to please document if nausea is with or without vomiting Qualifiers: Vomiting type: bilious vomiting Qualified Code(s): R11.14 - Bilious vomiting (4) Flank pain Conclusion/Plan: Urinalysis has a lot of squamous cells. It is considered a contaminated urine specimen. As such no culture will be submitted. Since her history suggest possible UTI before Friday, will do CT chest abdomen pelvis. (5) Hypokalemia Conclusion/Plan: IV supplementation. Recheck tomorrow morning. Also check calcium magnesium and phosphorus in the morning - Lab Results Lab results reviewed: Yes Fish Bones: 04/09/22 10:22 04/09/22 10:22 Core Measures - Anticipated LOS I expect patient to be DC'd or transferred within 96 hours.: Yes - DVT/VTE - Prophylaxis VTE/DVT Prophylaxis med ordered at admit?: Yes
[2022-04-09] MEDS: SODIUM CHLORIDE FLUSH 0.9% 10 ML SYRINGE IVP PRN (14:59)
[2022-04-09] MEDS: SODIUM CHLORIDE 0.9% 1,000 ML IV SCH ×2 (14:59→19:10)
[2022-04-09] MEDS: HYDROmorphone 0.5 MG/0.5 ML SYRINGE IVP PRN ×2 (14:59→17:43)
--- NOTE | 2022-04-09 15:13 | PHARMACY PROGRESS NOTE ---
- Best Possible Medication History Admit Date and Time: 04/09/22 1318 Processed by: Pharmacy Medication History completed: Yes Patient Interview: Completed Secondary Source(s): Insurance records, Previous admit records As the person ultimately responsible for medication therapy, providers are able to order a medication from an existing home medication list in [facility] via the "Reconcile Routine" prior to Confirmation of that medication by operations support analyst. Such practice is discouraged except when the physician, in their clinical judgment, deems that a medical need exists for a medication without regard to previous use.
[2022-04-09 15:30] LABS: MUDS CUTOFF CONCENTRATIONS CUTOFF CONC BELOW:
[2022-04-09 15:47] LABS: COCAINE SCREEN URINE NEGATIVE (NEGATIVE); METHAMPHETAMINES SCREEN, URINE NEGATIVE (NEGATIVE); OPIATE SCREEN, URINE POSITIVE (NEGATIVE); THC CANNABINOID SCREEN, URINE POSITIVE (NEGATIVE)
[2022-04-09 15:48] LABS: AMPHETAMINE SCREEN,URINE NEGATIVE (NEGATIVE); BARBITURATE SCREEN,UR POSITIVE (NEGATIVE); BENZODIAZEPINES SCREEN, URINE POSITIVE (NEGATIVE); METHADONE SCREEN, URINE NEGATIVE (NEGATIVE); OXYCODONE SCREEN, URINE POSITIVE (NEGATIVE); PROPOXYPHENE SCREEN, URINE NEGATIVE (NEGATIVE); TRICYCLIC ANTIDEPRESSANT,URINE NEGATIVE (NEGATIVE)
[2022-04-09 15:53] LABS: B. PARAPERTUSSIS- RESP PCR PAN NOT DETECTED; B. PERTUSSIS- RESP PCR PANEL NOT DETECTED; C. PNEUMONIAE- RESP PCR PANEL NOT DETECTED; CORONAVIRUS 229E-RESP PCR NOT DETECTED; CORONAVIRUS HKU1-RESP PCR NOT DETECTED; CORONAVIRUS NL63-RESP PCR NOT DETECTED; CORONAVIRUS OC43-RESP PCR NOT DETECTED; HUMAN METAPNEUMOVIRUS NOT DETECTED; INFLUENZA A- RESP PCR PANEL NOT DETECTED; INFLUENZA B - RESP PCR PANEL NOT DETECTED; M. PNEUMONIAE- RESP PCR PANEL NOT DETECTED; PARAINFLUENZA VIRUS 1 NOT DETECTED; PARAINFLUENZA VIRUS 2 NOT DETECTED; PARAINFLUENZA VIRUS 3 NOT DETECTED; PARAINFLUENZA VIRUS 4 NOT DETECTED; RHINOVIRUS/ENTEROVIRUS NOT DETECTED; RSV- RESP PCR PANEL NOT DETECTED; SARS-CoV-2 -RESP PCR PANEL NOT DETECTED
[2022-04-09] MEDS: SODIUM CHLORIDE FLUSH 0.9% 10 ML SYRINGE IVP SCH ×2 (16:09→23:59)
[2022-04-09] MEDS: oxyCODONE 5 MG TABLET PO PRN ×2 (16:23→21:03)
[2022-04-09] MEDS ORDERED: HYDROmorphone 0.5 MG/0.5 ML SYRINGE IVP PRN (19:02)
[2022-04-09] MEDS: POTASSIUM CHLOR 10 MEQ/100 ML 10 MEQ/100 ML BAG IV SCH ×5 (19:10→23:42)
[2022-04-09] MEDS: ONDANSETRON ODT 4 MG TABLET TL PRN (19:12)
[2022-04-09] MEDS: HYDROmorphone 1 MG/ML CARPUJECT IVP PRN ×3 (19:54→23:59)
[2022-04-09] MEDS ORDERED: iohexoL-300 100 ML VIAL ONE (20:23)
[2022-04-09] MEDS: ACETAMINOPHEN 325 MG TABLET PO PRN (21:03)
--- NOTE | 2022-04-09 21:47 | CT Report ---
PROCEDURE: ABDOMEN/PELVIS W INDICATIONS: c/o flank pain and dysuria on top of pancreatitis CONTRAST: Omni 300 100ml TECHNIQUE: After the administration of intravenous contrast, 5 mm thick sections acquired from the diaphragms to the symphysis. 5 mm thick coronal and sagittal reformats were acquired. For radiation dose reducti on, the following was used: automated exposure control, adjustment of mA and/or kV according to angelica ent size. COMPARISON: CT abdomen pelvis 12/03/2021, 11/16/2021, 10/05/2021. FINDINGS: Image quality: Excellent. Lung bases:There is dependent atelectasis bilaterally. Heart: Heart is normal in size. ABDOMEN: Liver: No mass lesion. Gallbladder: Within normal limits without calcified gallstones. Biliary ducts: No biliary ductal dilatation. Pancreas:There is a persistent thick-walled peripherally enhancing collection within the pancreatic head and uncinate process measuring up to 5.4 x 4.7 cm in transverse dimension, increased from 4.9 x 4.5 cm previously. Findings are consistent with walled off necrosis. Peripancreatic fat stranding or fluid are demonstrated consistent with acute pancreatitis. No pancreatic duct dilatation. Spleen: Normal in size. Adrenal Glands: No adrenal nodules. Kidneys and Ureters: No hydronephrosis.The kidneys demonstrate symmetric enhancement bilaterally. N o striated nephrogram or perinephric stranding to suggest polynephritis. Stomach and Bowel: Stomach, small bowel loops, and colon are normal in caliber and wall thickness. Peritoneum:There is a small to moderate amount of intraperitoneal free fluid. There is a loculated f luid collection in the left paracolic gutter measuring up to 2.4 x 1.9 cm on series 4 image 59 which is decreased in size compared to the prior study on which it measured 3.0 x 2.4 cm. No free air. Ventral Wall: No hernia. Abdominal Nodes: No retroperitoneal or mesenteric adenopathy by size criteria. Vessels: Aorta and inferior vena cava are normal in size. PELVIS: Pelvic Organs:An IUD is present within the uterus. Bladder: Unremarkable. Pelvic Nodes: No enlarged lymph nodes. Miscellaneous: No inguinal hernias are seen. Bones: Visualized osseous structures demonstrate no suspicious focal lesions. IMPRESSION: 1. Increased peripancreatic fat stranding or fluid consistent with acute pancreatitis. No new acute p ancreatic fluid collections. 2. Slight interval increase in size of a loculated fluid collection within the pancreatic head and un cinate process consistent with walled off necrosis. 3. No definite CT evidence of pyelonephritis or hydronephrosis. Reviewed by: Gordo Wills MD on 04/09/2022 9:46 PM PDT Approved by: Gordo Wills MD on 04/09/2022 9:46 PM PDT Station ID: [id number]
[2022-04-09] MEDS: NICOTINE 21 MG PATCH TOP SCH (22:02)
[2022-04-09] MEDS ORDERED: iohexoL-300 100 ML VIAL IVP ONE (23:07)
[2022-04-10] MEDS: POTASSIUM CHLOR 10 MEQ/100 ML 10 MEQ/100 ML BAG IV SCH (00:43)
[2022-04-10] MEDS: oxyCODONE 5 MG TABLET PO PRN ×2 (02:49→16:00)
[2022-04-10] MEDS: ACETAMINOPHEN 325 MG TABLET PO PRN (02:49)
[2022-04-10 04:56] LABS: BASOPHILS % (AUTO) 0.4 %; EOSINOPHILS # (AUTO) 0.2 10^3/uL (0.0-0.7); EOSINOPHILS % (AUTO) 3.1 %; HCT - HEMATOCRIT 36.1 % (37.0-47.0); HGB - HEMOGLOBIN 11.8 g/dL (12.0-16.0); LYMPHOCYTES # (AUTO) 0.8 10^3/uL (1.5-3.5); LYMPHOCYTES % (AUTO) 10.3 %; MEAN CORPUSCULAR HEMOGLOBIN 36.5 pg (27.0-31.0); MEAN CORPUSCULAR HGB CONC 32.7 g/dL (32.0-36.0); MEAN CORPUSCULAR VOLUME 111.8 fL (81.0-99.0); MEAN PLATELET VOLUME 10.7 fL (7.9-10.8); MONOCYTES # (AUTO) 0.9 10^3/uL (0.0-1.0); MONOCYTES % (AUTO) 11.8 %; NEUTROPHILS # (AUTO) 5.7 10^3/uL (1.5-6.6); PLT - PLATELET COUNT 154 10^3/uL (130-450); RED BLOOD COUNT 3.23 10^6/uL (4.20-5.40); RED CELL DISTRIBUTION WIDTH 14.8 % (12.0-15.0); WHITE BLOOD COUNT 7.7 x10^3/uL (4.8-10.8)
[2022-04-10 05:00] LABS: SLIDE REVIEW? Indicated
[2022-04-10 05:11] LABS: ALBUMIN 2.6 g/dL (3.2-5.5); BILIRUBIN,TOTAL 0.8 mg/dL (0.2-1.0); CREATININE 0.5 mg/dL (0.4-1.0); MAGNESIUM 1.6 mg/dL (1.7-2.8); PHOSPHORUS 2.5 mg/dL (2.5-4.6); POTASSIUM 3.8 mmol/L (3.5-5.0); TOTAL PROTEIN 5.2 g/dL (6.7-8.2)
[2022-04-10 05:14] LABS: PLATELET ESTIMATE, MANUAL NORMAL (130-450,000) (NORMAL); PLATELET MORPHOLOGY NORMAL APPEARANCE (NORMAL); RBC MORPHOLOGY (MULTIPLE) 1+ MACROCYTOSIS (NORMAL); WBC MORPHOLOGY (MULTIPLE) NORMAL APPEARANCE (NORMAL)
[2022-04-10] MEDS: HYDROmorphone 1 MG/ML CARPUJECT IVP PRN ×7 (05:30→22:32)
[2022-04-10] MEDS: ONDANSETRON 4 MG/2 ML VIAL IVP PRN ×2 (05:30→21:26)
[2022-04-10] MEDS: SODIUM CHLORIDE FLUSH 0.9% 10 ML SYRINGE IVP SCH ×2 (06:33→16:01)
[2022-04-10] MEDS: PANTOPRAZOLE 40 MG VIAL IVP SCH (06:34)
[2022-04-10] MEDS ORDERED: NICOTINE 21 MG PATCH TOP SCH (09:00)
[2022-04-10] MEDS: ENOXAPARIN 40 MG/0.4 ML SYRINGE SUBQ SCH (09:06)
[2022-04-10] MEDS: NICOTINE 21 MG PATCH TOP SCH (09:07)
[2022-04-10] MEDS: ONDANSETRON ODT 4 MG TABLET TL PRN (11:25)
--- NOTE | 2022-04-10 14:52 | PROVIDER PROGRESS NOTE ---
Subjective - Prog Note Date Prog Note Date: 04/10/22 Prog Note Time: 14:52 - Subjective Pt reports feeling: Worse Subjective: She is miserable. Tearful. I had increased her Dilaudid last night and went from 0.5 to 1 mg. She is nauseated. Does not want to eat. Does not have a fever, does not have chills. She is continues to have flank pain but no urgency, frequency, dysuria. CT scan of the abdomen and pelvis was done and that will be discussed below Current Medications - Current Medications Current Medications: Active Medications Acetaminophen (Acetaminophen 325 Mg Tablet) 650 mg PO Q4HR PRN PRN Reason: Pain 1 to 4, or Fever Last Admin: 04/10/22 02:49 Dose: 650 mg Enoxaparin Sodium (Enoxaparin 40 Mg/0.4 Ml Syringe) 40 mg SUBQ DAILY [facility] Last Admin: 04/10/22 09:06 Dose: 40 mg Hydromorphone HCl (Hydromorphone 1 Mg/Ml Carpuject) 1 mg IVP Q2H PRN PRN Reason: Pain 8 to 10 Last Admin: 04/10/22 14:40 Dose: 1 mg Nicotine (Nicotine 21 Mg Patch) 1 patch TOP DAILY [facility] Last Admin: 04/10/22 09:07 Dose: 1 patch Ondansetron HCl (Ondansetron Odt 4 Mg Tablet) 4 mg TL Q6HR PRN PRN Reason: Nausea / Vomiting Last Admin: 04/10/22 11:25 Dose: 4 mg Ondansetron HCl (Ondansetron 4 Mg/2 Ml Vial) 4 mg IVP Q6HR PRN PRN Reason: Nausea / Vomiting Last Admin: 04/10/22 05:30 Dose: 4 mg Oxycodone HCl (Oxycodone 5 Mg Tablet) 5 mg PO Q4HR PRN PRN Reason: Pain 5 to 7 Last Admin: 04/10/22 02:49 Dose: 5 mg Pantoprazole Sodium (Pantoprazole 40 Mg Vial) 40 mg IVP QDAC [facility] Last Admin: 04/10/22 06:34 Dose: 40 mg Sodium Chloride (Sodium Chloride Flush 0.9% 10 Ml Syringe) 10 ml IVP PRN PRN PRN Reason: NEEDED PER PROVIDER ORDERS Last Admin: 04/09/22 14:59 Dose: 10 ml Sodium Chloride (Sodium Chloride Flush 0.9% 10 Ml Syringe) 10 ml IVP 0100,0900,1700 [facility] Last Admin: 04/10/22 06:33 Dose: 10 ml Lipase/Protease/Amylase [Creon Dr 24,000 Unit Capsule] 24,000 unit PO TIDWM 04/08/22 Acetaminophen [Tylenol] 650 mg PO Q6H PRN 04/09/22 Loratadine [Claritin] 10 mg PO DAILY PRN 04/09/22 Sucralfate [Carafate] 1 gm PO QPM 04/09/22 Objective - Vital Signs/Intake & Output Reviewed Vital Signs: Yes Vital Signs: Vital Signs x48h Temp Pulse Resp BP Pulse Ox 04/10/22 08:00 36.7 C 98 18 117/73 97 Intake & Output: Intake & Output 04/07/22 04/08/22 04/09/22 04/10/22 23:59 23:59 23:59 23:59 Intake Total 2736.667 850 Output Total 175 500 Balance 2561.667 350 - Objective General Appearance: positive: Alert, Moderate distress (Tearful, epigastrium, left upper quadrant, bilateral flanks all hurt. Sometimes a low dull pain and many times a 10/10) Eyes Bilateral: positive: PERRL, EOMI ENT: positive: No signs of dehydration Neck: positive: No JVD. negative: Stiff neck Respiratory: positive: No respiratory distress. negative: Wheezes, Rales, Rhonchi Cardiovascular: positive: Regular rate & rhythm (Occasionally tachycardic when she is anxious and tearful) Abdomen: positive: Tenderness (Epigastrium, left upper quadrant. When I percuss flanks there is much less pain but still present. Left worse than right flank), Abnml bowel sounds (Hypoactive). negative: Hepatomegaly, Splenomegaly Skin: positive: Warm, Dry Extremities: positive: Full ROM, No pedal edema Neurologic/Psychiatric: positive: Oriented x3, CN's nml (2-12), Motor nml - Lab Results Fish Bones: 04/10/22 04:28 04/10/22 04:28 Other Labs: Lab Results x24hrs 04/10/22 04/10/22 04/09/22 Range/Units 04:28 04:28 15:20 WBC 7.7 (4.8-10.8) x10^3/uL RBC 3.23 L (4.20-5.40) 10^6/uL Hgb 11.8 L (12.0-16.0) g/dL Hct 36.1 L (37.0-47.0) % MCV 111.8 H (81.0-99.0) fL MCH 36.5 H (27.0-31.0) pg MCHC 32.7 (32.0-36.0) g/dL RDW 14.8 (12.0-15.0) % Plt Count 154 (130-450) 10^3/uL MPV 10.7 (7.9-10.8) fL Neut # (Auto) 5.7 (1.5-6.6) 10^3/uL Lymph # (Auto) 0.8 L (1.5-3.5) 10^3/uL [place] # (Auto) 0.9 (0.0-1.0) 10^3/uL Eos # (Auto) 0.2 (0.0-0.7) 10^3/uL Baso # (Auto) 0.0 (0.0-0.1) 10^3/uL Absolute Nucleated RBC 0.00 x10^3/uL Nucleated RBC % 0.0 /100WBC Manual Slide Review Indicated WBC Morphology NORMAL APPEARANCE (NORMAL) Platelet Estimate NORMAL (130-450,000) (NORMAL) Platelet Morphology NORMAL APPEARANCE (NORMAL) RBC Morph Micro Appear 1+ MACROCYTOSIS (NORMAL) Sodium 132 L (135-145) mmol/L Potassium 3.8 (3.5-5.0) mmol/L Chloride 104 (101-111) mmol/L Carbon Dioxide 21 (21-32) mmol/L Anion Gap 7.0 (6-13) BUN 6 (6-20) mg/dL Creatinine 0.5 (0.4-1.0) mg/dL Estimated GFR (MDRD) 140 (>89) Glucose 111 H (70-100) mg/dL Calcium 8.0 L (8.5-10.3) mg/dL Phosphorus 2.5 (2.5-4.6) mg/dL Magnesium 1.6 L (1.7-2.8) mg/dL Total Bilirubin 0.8 (0.2-1.0) mg/dL AST 18 (10-42) IU/L ALT 60 (10-60) IU/L Alkaline Phosphatase 93 (42-121) IU/L Total Protein 5.2 L (6.7-8.2) g/dL Albumin 2.6 L (3.2-5.5) g/dL Globulin 2.6 (2.1-4.2) g/dL Albumin/Globulin Ratio 1.0 (1.0-2.2) Lipase 210 H (22-51) U/L Nasal Adenovirus (PCR) Nasal B. parapertussis DNA (PCR) Nasal Coronavir 229E PCR Nasal Coronavir HKU1 PCR Nasal Coronavir NL63 PCR Nasal Coronavir OC43 PCR Nasal Enterovir/Rhinovir PCR Nasal Influenza B PCR Nasal Influenza A PCR Nasal Parainfluen 1 PCR Nasal Parainfluen 2 PCR Nasal Parainfluen 3 PCR Nasal Parainfluen 4 PCR Nasal RSV (PCR) Nasal B.pertussis DNA PCR Nasal C.pneumoniae (PCR) Donta Human Metapneumo PCR Nasal M.pneumoniae (PCR) Nasal SARS-CoV-2 (PCR) Urine Opiates Screen POSITIVE H (NEGATIVE) Ur Oxycodone Screen POSITIVE H (NEGATIVE) Urine Methadone Screen NEGATIVE (NEGATIVE) Ur Propoxyphene Screen NEGATIVE (NEGATIVE) Ur Barbiturates Screen POSITIVE H (NEGATIVE) Ur Tricyclics Screen NEGATIVE (NEGATIVE) Ur Phencyclidine Scrn NEGATIVE (NEGATIVE) Ur Amphetamine Screen NEGATIVE (NEGATIVE) U Methamphetamines Scrn NEGATIVE (NEGATIVE) U Benzodiazepines Scrn POSITIVE H (NEGATIVE) Urine Cocaine Screen NEGATIVE (NEGATIVE) U Cannabinoids Screen POSITIVE H (NEGATIVE) SARS-CoV-2 (PCR) 04/09/22 04/09/22 Range/Units 13:58 13:58 WBC (4.8-10.8) x10^3/uL RBC (4.20-5.40) 10^6/uL Hgb (12.0-16.0) g/dL Hct (37.0-47.0) % MCV (81.0-99.0) fL MCH (27.0-31.0) pg MCHC (32.0-36.0) g/dL RDW (12.0-15.0) % Plt Count (130-450) 10^3/uL MPV (7.9-10.8) fL Neut # (Auto) (1.5-6.6) 10^3/uL Lymph # (Auto) (1.5-3.5) 10^3/uL [place] # (Auto) (0.0-1.0) 10^3/uL Eos # (Auto) (0.0-0.7) 10^3/uL Baso # (Auto) (0.0-0.1) 10^3/uL Absolute Nucleated RBC x10^3/uL Nucleated RBC % /100WBC Manual Slide Review WBC Morphology (NORMAL) Platelet Estimate (NORMAL) Platelet Morphology (NORMAL) RBC Morph Micro Appear (NORMAL) Sodium (135-145) mmol/L Potassium (3.5-5.0) mmol/L Chloride (101-111) mmol/L Carbon Dioxide (21-32) mmol/L Anion Gap (6-13) BUN (6-20) mg/dL Creatinine (0.4-1.0) mg/dL Estimated GFR (MDRD) (>89) Glucose (70-100) mg/dL Calcium (8.5-10.3) mg/dL Phosphorus (2.5-4.6) mg/dL Magnesium (1.7-2.8) mg/dL Total Bilirubin (0.2-1.0) mg/dL AST (10-42) IU/L ALT (10-60) IU/L Alkaline Phosphatase (42-121) IU/L Total Protein (6.7-8.2) g/dL Albumin (3.2-5.5) g/dL Globulin (2.1-4.2) g/dL Albumin/Globulin Ratio (1.0-2.2) Lipase (22-51) U/L Nasal Adenovirus (PCR) NOT DETECTED Nasal B. parapertussis DNA (PCR) NOT DETECTED Nasal Coronavir 229E PCR NOT DETECTED Nasal Coronavir HKU1 PCR NOT DETECTED Nasal Coronavir NL63 PCR NOT DETECTED Nasal Coronavir OC43 PCR NOT DETECTED Nasal Enterovir/Rhinovir PCR NOT DETECTED Nasal Influenza B PCR NOT DETECTED Nasal Influenza A PCR NOT DETECTED Nasal Parainfluen 1 PCR NOT DETECTED Nasal Parainfluen 2 PCR NOT DETECTED Nasal Parainfluen 3 PCR NOT DETECTED Nasal Parainfluen 4 PCR NOT DETECTED Nasal RSV (PCR) NOT DETECTED Nasal B.pertussis DNA PCR NOT DETECTED Nasal C.pneumoniae (PCR) NOT DETECTED Donta Human Metapneumo PCR NOT DETECTED Nasal M.pneumoniae (PCR) NOT DETECTED Nasal SARS-CoV-2 (PCR) NOT DETECTED Urine Opiates Screen (NEGATIVE) Ur Oxycodone Screen (NEGATIVE) Urine Methadone Screen (NEGATIVE) Ur Propoxyphene Screen (NEGATIVE) Ur Barbiturates Screen (NEGATIVE) Ur Tricyclics Screen (NEGATIVE) Ur Phencyclidine Scrn (NEGATIVE) Ur Amphetamine Screen (NEGATIVE) U Methamphetamines Scrn (NEGATIVE) U Benzodiazepines Scrn (NEGATIVE) Urine Cocaine Screen (NEGATIVE) U Cannabinoids Screen (NEGATIVE) SARS-CoV-2 (PCR) NOT DETECTED Assessment/Plan - Problem List (1) Recurrent pancreatitis Impression: In a patient who has a previous history of alcoholic pancreatitis is her first presentation. Since that time she feels like her pancreatitis is not from alcohol abuse but she does admit to intermittent drinking. This time symptoms started 2 days before her alcohol use, but I do not think 2 small drinks helped. I have reiterated to the patient yet again that she really should not drink at all, ever. Not even mouthwash. Today she reluctantly states that she has probably been drinking more than she has shared with us. She recognizes that she has a problem and will be trying to seek help in the outpatient setting. Plan: Continue IV fluids N.p.o. except for ice chips and popsicles Antiemetics, Increase Dilaudid from 1 mg every 2 hours to 2 mg every 2 hours (2) Intractable abdominal pain Conclusion/Plan: Due to presumed pancreatitis. No CT was done with this admission in the ER. On admission, after evaluation, she shared with me that she was having flank pain. This was a new symptom. And she did describe urgency and frequency last week. I wanted to make sure she did not have pyelonephritis and obtained a CT of abdomen and pelvis last night on April 09. The CT shows a persistent thick-walled peripherally enhancing collection within the pancreatic head and uncinate process measuring 5.4 x 4.7 in transverse dimension. It is increased in size from 4.9 by 4.5 previously. Findings are consistent with walled off necrosis. Peripancreatic fat stranding and fluid are demonstrated and are consistent with acute pancreatitis. No hydronephrosis, kidneys demonstrate symmetric enhancement bilaterally. No striated nephrogram or perinephric stranding to suggest polynephritis. In the peritoneum there is a small to moderate amount of intraperitoneal free fluid. It is a loculated fluid collection in the left paracolic gutter measuring up to 2.4 x 1.9 which is decreased in size compared to the prior study where it measured 3.0 x 2.4. No free air. I discussed the case with general surgery on-call today. I wanted to run the case by them but not necessarily get a consult. 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 Our facility is a critical access hospital and surgery feels that this patient would be better served by interventional radiology or gastroenterology that could possibly drain this cyst (due to its chronicity over the last 4 months) via endoscopic approach. If there is percutaneous drainage, there would be increased risk of fistulization. As such I have called [facility]. I spoken to the transfer center and did not ask for transfer but I am asking for a GI consult. I have pushed the films from this admission CT and last admission CT. Dr. Raffy Luu from [facility] graciously called me back. He reviewed the CT from November and this admission. Right now he does not recommend endoscopic drainage since there is quite a bit of space between the stomach and the pancreatic pseudocyst. He would recommend interventional radiology drainage. But he does not feel that there is a need for drainage at all right now. She does not have a fever, she does not have an elevated white cell count. As such we do not presume that it is infected. He would strongly recommend she stop drinking, small frequent low-fat meals with Creon, controlled pain, and wait. Once the pseudocyst is hardened enough and has not resolved on its own, then he would recommend intervention. (3) Nausea and vomiting Conclusion/Plan: Due to recurrent pancreatitis and pain. Again she will receive antiemetics, IV fluids During my admit exam she had 2 episodes of dry heaves. But no outright productive emesis. Today she is continued nausea. The most she wants to eat is ice and popsicles. She is wondering if she can have some broth. Qualifiers: Vomiting type: bilious vomiting Qualified Code(s): R11.14 - Bilious vomiting (4) Flank pain Conclusion/Plan: Urinalysis has a lot of squamous cells. It is considered a contaminated urine specimen. As such no culture will be submitted. Since her history suggest possible UTI before Friday, And she was complaining of flank pain, I did a CT of abdomen and pelvis. There is no evidence of cystitis or pyelonephritis (5) Hypokalemia Resolved Conclusion/Plan: Supplemented IV and responded to that. We will continue to monitor. A total of 40 minutes was spent with the patient, speaking to the surgeon, speaking to the transfer center, and then speaking to Dr. Luu
[2022-04-10] MEDS: SODIUM CHLORIDE FLUSH 0.9% 10 ML SYRINGE IVP PRN ×3 (17:08→22:33)
[2022-04-10] MEDS: LORazepam 1 MG TABLET PO PRN (21:26)
[2022-04-11] MEDS: HYDROmorphone 1 MG/ML CARPUJECT IVP PRN ×6 (00:40→14:19)
[2022-04-11] MEDS: SODIUM CHLORIDE FLUSH 0.9% 10 ML SYRINGE IVP SCH ×3 (00:41→15:54)
[2022-04-11] MEDS: ONDANSETRON ODT 4 MG TABLET TL PRN (03:10)
[2022-04-11] MEDS: LORazepam 1 MG TABLET PO PRN ×2 (03:17→16:42)
[2022-04-11 05:18] LABS: BASOPHILS % (AUTO) 0.4 %; EOSINOPHILS # (AUTO) 0.1 10^3/uL (0.0-0.7); EOSINOPHILS % (AUTO) 1.3 %; HCT - HEMATOCRIT 37.9 % (37.0-47.0); HGB - HEMOGLOBIN 12.6 g/dL (12.0-16.0); LYMPHOCYTES % (AUTO) 9.3 %; MEAN CORPUSCULAR HEMOGLOBIN 36.3 pg (27.0-31.0); MEAN CORPUSCULAR HGB CONC 33.2 g/dL (32.0-36.0); MEAN CORPUSCULAR VOLUME 109.2 fL (81.0-99.0); MEAN PLATELET VOLUME 10.7 fL (7.9-10.8); MONOCYTES # (AUTO) 1.4 10^3/uL (0.0-1.0); MONOCYTES % (AUTO) 12.8 %; NEUTROPHILS # (AUTO) 8.4 10^3/uL (1.5-6.6); NEUTROPHILS % (AUTO) 75.7 %; PLT - PLATELET COUNT 209 10^3/uL (130-450); RED BLOOD COUNT 3.47 10^6/uL (4.20-5.40); RED CELL DISTRIBUTION WIDTH 14.5 % (12.0-15.0); WHITE BLOOD COUNT 11.1 x10^3/uL (4.8-10.8)
[2022-04-11 05:32] LABS: ALBUMIN 2.6 g/dL (3.2-5.5); ALBUMIN/GLOBULIN RATIO 0.9 (1.0-2.2); CALCIUM 8.2 mg/dL (8.5-10.3); CREATININE 0.5 mg/dL (0.4-1.0); MAGNESIUM 1.6 mg/dL (1.7-2.8); PHOSPHORUS 3.7 mg/dL (2.5-4.6); POTASSIUM 3.8 mmol/L (3.5-5.0); TOTAL PROTEIN 5.6 g/dL (6.7-8.2)
[2022-04-11] MEDS: PANTOPRAZOLE 40 MG VIAL IVP SCH (06:06)
[2022-04-11] MEDS: oxyCODONE 5 MG TABLET PO PRN ×2 (07:31→15:54)
[2022-04-11] MEDS: SODIUM CHLORIDE FLUSH 0.9% 10 ML SYRINGE IVP PRN ×4 (08:53→22:00)
[2022-04-11] MEDS: ENOXAPARIN 40 MG/0.4 ML SYRINGE SUBQ SCH (09:40)
[2022-04-11] MEDS: NICOTINE 21 MG PATCH TOP SCH (09:40)
[2022-04-11] MEDS: ONDANSETRON 4 MG/2 ML VIAL IVP PRN (15:54)
[2022-04-11] MEDS: ACETAMINOPHEN 325 MG TABLET PO PRN (15:54)
[2022-04-11] MEDS: HYDROmorphone 2 MG/ML VIAL IVP PRN ×3 (17:57→22:00)
--- NOTE | 2022-04-11 18:55 | PROVIDER PROGRESS NOTE ---
Subjective - Prog Note Date Prog Note Date: 04/11/22 Prog Note Time: 18:53 - Subjective Subjective: Continues to be tearful. She says that the pain is always there. But it is controlled. Then out of nowhere she will have sharp stabbing pain in the epiga strium and left upper quadrant that takes her breath away and then causes her to feel dispirited. But she would like to try some clear liquids. She is so hungry. She asked me to speak to her mom today to make sure that we updated her mom on her condition. So I did speak to Melinda Wilson at [phone]. I went over the alcoholic pancreatitis issue. Mom states that the patient has been less than truthful with her and the doctors. She drinks fairly regularly and has been caught drinking on the job. We went over the treatment plan as stated yesterday and my assessment and plan. I will be updating mom on a daily basis if anything changes. Current Medications - Current Medications Current Medications: Active Medications Acetaminophen (Acetaminophen 325 Mg Tablet) 650 mg PO Q4HR PRN PRN Reason: Pain 1 to 4, or Fever Last Admin: 04/11/22 15:54 Dose: 650 mg Docusate Sodium (Docusate Sodium 250 Mg Capsule) 250 - 500 mg PO DAILY [facility] Enoxaparin Sodium (Enoxaparin 40 Mg/0.4 Ml Syringe) 40 mg SUBQ DAILY [facility] Last Admin: 04/11/22 09:40 Dose: 40 mg Hydromorphone HCl (Hydromorphone 2 Mg/Ml Vial) 2 mg IVP Q2H PRN PRN Reason: Pain 8 to 10 Last Admin: 04/11/22 17:57 Dose: 2 mg Lorazepam (Lorazepam 1 Mg Tablet) 1 mg PO Q6H PRN PRN Reason: Anxiety Last Admin: 04/11/22 16:42 Dose: 1 mg Nicotine (Nicotine 21 Mg Patch) 1 patch TOP DAILY [facility] Last Admin: 04/11/22 09:40 Dose: 1 patch Ondansetron HCl (Ondansetron Odt 4 Mg Tablet) 4 mg TL Q6HR PRN PRN Reason: Nausea / Vomiting Last Admin: 04/11/22 03:10 Dose: 4 mg Ondansetron HCl (Ondansetron 4 Mg/2 Ml Vial) 4 mg IVP Q6HR PRN PRN Reason: Nausea / Vomiting Last Admin: 04/11/22 15:54 Dose: 4 mg Oxycodone HCl (Oxycodone 5 Mg Tablet) 5 mg PO Q4HR PRN PRN Reason: Pain 5 to 7 Last Admin: 04/11/22 15:54 Dose: 5 mg Pantoprazole Sodium (Pantoprazole 40 Mg Vial) 40 mg IVP QDAC [facility] Last Admin: 04/11/22 06:06 Dose: 40 mg Senna (Senna 8.6 Mg Tablet) 8.6 - 17.2 mg PO DAILY [facility] Sodium Chloride (Sodium Chloride Flush 0.9% 10 Ml Syringe) 10 ml IVP PRN PRN PRN Reason: NEEDED PER PROVIDER ORDERS Last Admin: 04/11/22 17:57 Dose: 10 ml Sodium Chloride (Sodium Chloride Flush 0.9% 10 Ml Syringe) 10 ml IVP 0100,0900,1700 [facility] Last Admin: 04/11/22 15:54 Dose: 10 ml Lipase/Protease/Amylase [Creon Dr 24,000 Unit Capsule] 24,000 unit PO TIDWM 04/08/22 Acetaminophen [Tylenol] 650 mg PO Q6H PRN 04/09/22 Loratadine [Claritin] 10 mg PO DAILY PRN 04/09/22 Sucralfate [Carafate] 1 gm PO QPM 04/09/22 Objective - Vital Signs/Intake & Output Reviewed Vital Signs: Yes Vital Signs: Vital Signs x48h Temp Pulse Resp BP Pulse Ox 04/11/22 16:00 37.2 C 119 H 16 119/74 96 Intake & Output: Intake & Output 04/08/22 04/09/22 04/10/22 04/11/22 23:59 23:59 23:59 23:59 Intake Total 2736.667 850 980 Output Total 175 700 525 Balance 2561.667 150 455 - Objective General Appearance: positive: Alert, Moderate distress (Is laying quietly in bed. She is able to speak to me for a few moments before a sharp stabbing pain overcomes her and she starts to cry.) Eyes Bilateral: positive: PERRL, EOMI ENT: positive: No signs of dehydration Neck: positive: No JVD Respiratory: positive: No respiratory distress. negative: Wheezes, Rales, Rhonchi Cardiovascular: positive: Regular rate & rhythm Abdomen: positive: No distention, Tenderness, Guarding, Abnml bowel sounds (Hypoactive). negative: Rebound Skin: positive: Warm, Dry Extremities: positive: Full ROM, No pedal edema Neurologic/Psychiatric: positive: Oriented x3, CN's nml (2-12), Motor nml - Lab Results Fish Bones: 04/11/22 04:30 04/11/22 04:30 Other Labs: Lab Results x24hrs 04/11/22 04/11/22 04/11/22 Range/Units 04:30 04:30 04:30 WBC 11.1 H (4.8-10.8) x10^3/uL RBC 3.47 L (4.20-5.40) 10^6/uL Hgb 12.6 (12.0-16.0) g/dL Hct 37.9 (37.0-47.0) % MCV 109.2 H (81.0-99.0) fL MCH 36.3 H (27.0-31.0) pg MCHC 33.2 (32.0-36.0) g/dL RDW 14.5 (12.0-15.0) % Plt Count 209 (130-450) 10^3/uL MPV 10.7 (7.9-10.8) fL Neut # (Auto) 8.4 H (1.5-6.6) 10^3/uL Lymph # (Auto) 1.0 L (1.5-3.5) 10^3/uL [place] # (Auto) 1.4 H (0.0-1.0) 10^3/uL Eos # (Auto) 0.1 (0.0-0.7) 10^3/uL Baso # (Auto) 0.0 (0.0-0.1) 10^3/uL Absolute Nucleated RBC 0.00 x10^3/uL Nucleated RBC % 0.0 /100WBC Sodium 132 L (135-145) mmol/L Potassium 3.8 (3.5-5.0) mmol/L Chloride 100 L (101-111) mmol/L Carbon Dioxide 24 (21-32) mmol/L Anion Gap 8.0 (6-13) BUN 10 (6-20) mg/dL Creatinine 0.5 (0.4-1.0) mg/dL Estimated GFR (MDRD) 140 (>89) Glucose 102 H (70-100) mg/dL Calcium 8.2 L (8.5-10.3) mg/dL Phosphorus 3.7 (2.5-4.6) mg/dL Magnesium 1.6 L (1.7-2.8) mg/dL Total Bilirubin 1.0 (0.2-1.0) mg/dL AST 14 (10-42) IU/L ALT 41 (10-60) IU/L Alkaline Phosphatase 158 H (42-121) IU/L Total Protein 5.6 L (6.7-8.2) g/dL Albumin 2.6 L (3.2-5.5) g/dL Globulin 3.0 (2.1-4.2) g/dL Albumin/Globulin Ratio 0.9 L (1.0-2.2) Lipase 147 H (22-51) U/L Folate 7.81 (5.90 - >24.8) ng/mL Assessment/Plan - Problem List (1) Recurrent pancreatitis Impression: In a patient who has a previous history of alcoholic pancreatitis is her first presentation. During her last to stay she denied that she was having problems with alcohol. This time she said she had a couple of drinks few days before admission. And now in speaking to her mom it is unfortunately confirmed that th e patient does have an ongoing problem with alcohol. Patient is asking for opportunities to see if she can get help to stop drinking. I spoke to her and her mom about [place] options in [place]. Plan: Continue IV fluids Advance diet to clear liquids from ice chips and popsicles. Continue Antiemetics, and the increased Dilaudid of 2 mg every 2 hours (2) Intractable abdominal pain due to pancreatic pseudocyst Conclusion/Plan: Due to presumed pancreatitis. No CT was done with this admission in the ER. On admission, after evaluation, she shared with me that she was having flank pain. This was a new symptom. And she did describe urgency and frequency last week. I wanted to make sure she did not have pyelonephritis and obtained a CT of abdomen and pelvis on April 09. The CT shows a persistent thick-walled peripherally enhancing collection within the pancreatic head and uncinate process measuring 5.4 x 4.7 in transverse dimension. It is increased in size from 4.9 by 4.5 previously. Findings are consistent with walled off necrosis. Peripancreatic fat stranding and fluid are demonstrated and are consistent with acute pancreatitis. No hydronephrosis, kidneys demonstrate symmetric enhancement bilaterally. No striated nephrogram or perinephric stranding to suggest polynephritis. In the peritoneum there is a small to moderate amount of intraperitoneal free fluid. It is a loculated fluid collection in the left paracolic gutter m easuring up to 2.4 x 1.9 which is decreased in size compared to the prior study where it measured 3.0 x 2.4. No free air. I discussed the case with general surgery on-call 04/10. I wanted to run the case by them but not necessarily get a consult. 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 Our facility is a critical access hospital and surgery feels that this patient would be better served by interventional radiology or gastroenterology that could possibly drain this cyst (due to its chronicity over the last 4 months) via endoscopic approach. If there is percutaneous drainage, there would be increased risk of fistulization. As such I called [facility] Carreon on 04/10. I spoke to the transfer center and did not ask for transfer but I asked for a GI consult. I pushed the films from this admission CT and last admission CT. Dr. Raffy Luu from [facility] graciously called me back. He reviewed the CT from November and this admission. Right now he does not recommend endoscopic drainage since there is quite a bit of space between the stomach and the pancreatic pseudocyst. He would recommend interventional radiology drainage. But he does not feel that there is a need for drainage at all right now. She does not have a fever, she does not have an elevated white cell count. As such we do not presume that it is infected. He would strongly recommend she stop drinking, small frequent low-fat meals with Creon, controlled pain, and wait. Once the pseudocyst is hardened enough and has not resolved on its own, then he would recommend intervention. I updated the patient and her mom on this treatment plan. I reiterated to her on a daily basis that she cannot drink alcohol ever again. I am hoping that with advancing her diet I can slowly increase her intake. If stable she can again go home with pain management. (3) Nausea and vomiting Conclusion/Plan: Due to recurrent pancreatitis and pain. Again she will receive antiemetics, IV fluids and she is improving from this perspective. It's just the pain that won't rodriguez Today I will advance her to clear liquids. Tomorrow, if tolerated, will advance to low fiber, soft diet Qualifiers: Vomiting type: bilious vomiting Qualified Code(s): R11.14 - Bilious vomiting (4) Flank pain Conclusion/Plan: Urinalysis has a lot of squamous cells. It is considered a contaminated urine specimen. As such no culture will be submitted. Since her history suggest possible UTI before Friday, And she was complaining of flank pain, I did a CT of abdomen and pelvis. There is no evidence of cystitis or pyelonephritis (5) Hypokalemia Resolved Conclusion/Plan: Supplemented IV and responded to that. We will continue to monitor.
[2022-04-11] MEDS: DOCUSATE SODIUM 250 MG CAPSULE PO SCH (21:59)
[2022-04-11] MEDS: SENNA 8.6 MG TABLET PO SCH (21:59)
[2022-04-12] MEDS: LORazepam 1 MG TABLET PO PRN ×2 (00:08→16:13)
[2022-04-12] MEDS: ONDANSETRON ODT 4 MG TABLET TL PRN ×2 (00:27→23:56)
[2022-04-12] MEDS: HYDROmorphone 2 MG/ML VIAL IVP PRN ×8 (00:45→23:55)
[2022-04-12] MEDS: SODIUM CHLORIDE FLUSH 0.9% 10 ML SYRINGE IVP SCH ×4 (00:45→23:56)
[2022-04-12] MEDS: SODIUM CHLORIDE FLUSH 0.9% 10 ML SYRINGE IVP PRN ×2 (03:56→06:41)
[2022-04-12 04:42] LABS: BASOPHILS % (AUTO) 0.2 %; EOSINOPHILS % (AUTO) 0.5 %; HCT - HEMATOCRIT 37.9 % (37.0-47.0); HGB - HEMOGLOBIN 12.5 g/dL (12.0-16.0); LYMPHOCYTES % (AUTO) 8.7 %; MEAN CORPUSCULAR HEMOGLOBIN 35.2 pg (27.0-31.0); MEAN CORPUSCULAR VOLUME 106.8 fL (81.0-99.0); MONOCYTES % (AUTO) 13.9 %; NEUTROPHILS % (AUTO) 76.3 %; PLT - PLATELET COUNT 293 10^3/uL (130-450); RED BLOOD COUNT 3.55 10^6/uL (4.20-5.40); RED CELL DISTRIBUTION WIDTH 14.6 % (12.0-15.0); WHITE BLOOD COUNT 13.8 x10^3/uL (4.8-10.8)
[2022-04-12 04:59] LABS: ALBUMIN 2.5 g/dL (3.2-5.5); ALBUMIN/GLOBULIN RATIO 0.7 (1.0-2.2); BILIRUBIN,TOTAL 1.1 mg/dL (0.2-1.0); CALCIUM 8.5 mg/dL (8.5-10.3); CREATININE 0.5 mg/dL (0.4-1.0); MAGNESIUM 1.8 mg/dL (1.7-2.8); PHOSPHORUS 3.2 mg/dL (2.5-4.6); POTASSIUM 3.7 mmol/L (3.5-5.0); TOTAL PROTEIN 5.9 g/dL (6.7-8.2)
[2022-04-12 05:02] LABS: ABNORMAL LYMPHS % (MANUAL) 0 %
[2022-04-12 05:26] LABS: BAND NEUTROPHILS % (MANUAL) 2 %; DIFFERENTIAL COMMENT MANUAL DIFFERENTIAL; EOSINOPHILS # (MANUAL) 0.1 10^3/uL (0-0.7); LYMPHOCYTES # (MANUAL) 0.8 10^3/uL (1.5-3.5); LYMPHOCYTES % (MANUAL) 6 %; MONOCYTES # (MANUAL) 0.6 10^3/uL (0.0-1.0); NEUTROPHILS # (MANUAL) 12.3 10^3/uL (1.5-6.6); PLATELET ESTIMATE, MANUAL NORMAL (130-450,000) (NORMAL); RBC MORPHOLOGY (MULTIPLE) 2+ MACROCYTOSIS (NORMAL)
[2022-04-12] MEDS: ONDANSETRON 4 MG/2 ML VIAL IVP PRN ×2 (06:41→15:49)
[2022-04-12] MEDS: PANTOPRAZOLE 40 MG VIAL IVP SCH (06:41)
[2022-04-12] MEDS: SENNA 8.6 MG TABLET PO SCH ×2 (08:49→09:05)
[2022-04-12] MEDS: DOCUSATE SODIUM 250 MG CAPSULE PO SCH (09:04)
[2022-04-12] MEDS: ENOXAPARIN 40 MG/0.4 ML SYRINGE SUBQ SCH (09:05)
[2022-04-12] MEDS: NICOTINE 21 MG PATCH TOP SCH (09:06)
[2022-04-12] MEDS ORDERED: MULTIVITAMIN 10 ML, THIAMINE INJ 100 MG, POTASSIUM CHLORIDE INJ 20 MEQ, FOLIC ACID INJ ... IV SCH ×10 (13:00→15:45)
[2022-04-12] MEDS: oxyCODONE 5 MG TABLET PO PRN ×2 (14:12→20:41)
--- NOTE | 2022-04-12 15:33 | PROVIDER PROGRESS NOTE ---
Subjective - Prog Note Date Prog Note Date: 04/12/22 Prog Note Time: 15:17 - Subjective Subjective: Continues to be tearful. Intermittent stabbing pain. She says she is so tired of this. "I have made a mistake, I should have stopped drinking.". Complains of epigastric and left upper quadrant pain. Sometimes left flank pain. Sometimes right flank pain. Just wants to sleep without pain. Current Medications - Current Medications Current Medications: Active Medications Acetaminophen (Acetaminophen 325 Mg Tablet) 650 mg PO Q4HR PRN PRN Reason: Pain 1 to 4, or Fever Last Admin: 04/11/22 15:54 Dose: 650 mg Docusate Sodium (Docusate Sodium 250 Mg Capsule) 250 - 500 mg PO DAILY [facility] Last Admin: 04/12/22 09:04 Dose: 250 mg Enoxaparin Sodium (Enoxaparin 40 Mg/0.4 Ml Syringe) 40 mg SUBQ DAILY [facility] Last Admin: 04/12/22 09:05 Dose: 40 mg Hydromorphone HCl (Hydromorphone 2 Mg/Ml Vial) 2 mg IVP Q2H PRN PRN Reason: Pain 8 to 10 Last Admin: 04/12/22 12:28 Dose: 2 mg Multivitamins 10 ml/ TRACE ELEMENTS 1 ml/ Amino Acids/Electrolytes/Dextrose 2,011 mls @ 83 mls/hr IV 1900 LUCY; Protocol Fat Emulsion Intravenous (Intralipid 20%) 250 mls @ 21 mls/hr IV 1900 [facility] Multivitamins 10 ml/ Thiamine HCl 100 mg/ Potassium Chloride 20 meq/ Folic Acid 1 mg/Dextrose/Sodium Chloride 1,021.2 mls @ 100 mls/hr IV ONCE LUCY Stop: 04/12/22 18:59 Last Infusion: 04/12/22 15:30 Dose: 100 mls/hr Lorazepam (Lorazepam 1 Mg Tablet) 1 mg PO Q6H PRN PRN Reason: Anxiety Last Admin: 04/12/22 00:08 Dose: 1 mg Nicotine (Nicotine 21 Mg Patch) 1 patch TOP DAILY [facility] Last Admin: 04/12/22 09:06 Dose: 1 patch Ondansetron HCl (Ondansetron Odt 4 Mg Tablet) 4 mg TL Q6HR PRN PRN Reason: Nausea / Vomiting Last Admin: 04/12/22 00:27 Dose: 4 mg Ondansetron HCl (Ondansetron 4 Mg/2 Ml Vial) 4 mg IVP Q6HR PRN PRN Reason: Nausea / Vomiting Last Admin: 04/12/22 06:41 Dose: 4 mg Oxycodone HCl (Oxycodone 5 Mg Tablet) 5 mg PO Q4HR PRN PRN Reason: Pain 5 to 7 Last Admin: 04/12/22 14:12 Dose: 5 mg Pantoprazole Sodium (Pantoprazole 40 Mg Vial) 40 mg IVP QDAC [facility] Last Admin: 04/12/22 06:41 Dose: 40 mg Senna (Senna 8.6 Mg Tablet) 8.6 - 17.2 mg PO DAILY [facility] Last Admin: 04/12/22 09:05 Dose: 8.6 mg Sodium Chloride (Sodium Chloride Flush 0.9% 10 Ml Syringe) 10 ml IVP PRN PRN PRN Reason: NEEDED PER PROVIDER ORDERS Last Admin: 04/12/22 06:41 Dose: 20 ml Sodium Chloride (Sodium Chloride Flush 0.9% 10 Ml Syringe) 10 ml IVP 0100,0900,1700 [facility] Last Admin: 04/12/22 09:08 Dose: 10 ml Lipase/Protease/Amylase [Creon Dr 24,000 Unit Capsule] 24,000 unit PO TIDWM 04/08/22 Acetaminophen [Tylenol] 650 mg PO Q6H PRN 04/09/22 Loratadine [Claritin] 10 mg PO DAILY PRN 04/09/22 Sucralfate [Carafate] 1 gm PO QPM 04/09/22 Objective - Vital Signs/Intake & Output Reviewed Vital Signs: Yes Vital Signs: Vital Signs x48h Temp Pulse Resp BP Pulse Ox 04/12/22 08:40 36.8 C 114 H 20 112/76 96 Intake & Output: Intake & Output 04/09/22 04/10/22 04/11/22 04/12/22 23:59 23:59 23:59 23:59 Intake Total 2736.872 826 3886 1240 Output Total 175 671 630 0351 Balance 2561.308 145 4895 115 - Objective General Appearance: positive: Alert, Moderate distress Eyes Bilateral: positive: PERRL, EOMI ENT: positive: No signs of dehydration Neck: positive: No JVD Respiratory: positive: No respiratory distress. negative: Wheezes, Rales, Rhonchi Cardiovascular: positive: Regular rate & rhythm Abdomen: positive: Tenderness (Epigastrium, left upper quadrant, left flank.), Guarding, Rebound, Abnml bowel sounds (Hypoactive), Other (Stool and flatus today. Stool was liquid.) Skin: positive: Warm, Dry Extremities: positive: Full ROM, No pedal edema Neurologic/Psychiatric: positive: Oriented x3, CN's nml (2-12), Motor nml - Lab Results Fish Bones: 04/12/22 04:13 04/12/22 04:13 Other Labs: Lab Results x24hrs 04/12/22 04/12/22 Range/Units 04:13 04:13 WBC 13.8 H (4.8-10.8) x10^3/uL RBC 3.55 L (4.20-5.40) 10^6/uL Hgb 12.5 (12.0-16.0) g/dL Hct 37.9 (37.0-47.0) % MCV 106.8 H (81.0-99.0) fL MCH 35.2 H (27.0-31.0) pg MCHC 33.0 (32.0-36.0) g/dL RDW 14.6 (12.0-15.0) % Plt Count 293 (130-450) 10^3/uL MPV 10.0 (7.9-10.8) fL Neut # (Auto) Not Reportable Lymph # (Auto) Not Reportable [place] # (Auto) Not Reportable Eos # (Auto) Not Reportable Baso # (Auto) Not Reportable Absolute Nucleated RBC Not Reportable Total Counted 100 Band Neuts % (Manual) 2 (0 - 10) % Abnorm Lymph % (Manual) 0 % Nucleated RBC % Not Reportable Neutrophils # (Manual) 12.3 H (1.5-6.6) 10^3/uL Lymphocytes # (Manual) 0.8 L (1.5-3.5) 10^3/uL Monocytes # (Manual) 0.6 (0.0-1.0) 10^3/uL Eosinophils # (Manual) 0.1 (0-0.7) 10^3/uL Basophils # (Manual) 0.0 (0-0.1) 10^3/uL Differential Comment MANUAL DIFFERENTIAL Platelet Estimate NORMAL (130-450,000) (NORMAL) RBC Morph Micro Appear 2+ MACROCYTOSIS (NORMAL) Sodium 127 L (135-145) mmol/L Potassium 3.7 (3.5-5.0) mmol/L Chloride 92 L (101-111) mmol/L Carbon Dioxide 26 (21-32) mmol/L Anion Gap 9.0 (6-13) BUN 11 (6-20) mg/dL Creatinine 0.5 (0.4-1.0) mg/dL Estimated GFR (MDRD) 140 (>89) Glucose 120 H (70-100) mg/dL Calcium 8.5 (8.5-10.3) mg/dL Phosphorus 3.2 (2.5-4.6) mg/dL Magnesium 1.8 (1.7-2.8) mg/dL Total Bilirubin 1.1 H (0.2-1.0) mg/dL AST 11 (10-42) IU/L ALT 32 (10-60) IU/L Alkaline Phosphatase 210 H (42-121) IU/L Total Protein 5.9 L (6.7-8.2) g/dL Albumin 2.5 L (3.2-5.5) g/dL Globulin 3.4 (2.1-4.2) g/dL Albumin/Globulin Ratio 0.7 L (1.0-2.2) Lipase 51 (22-51) U/L ABX Reporting Has patient been on IV antibiotics over the past 48 hours?: No Assessment/Plan - Problem List (1) Recurrent pancreatitis Impression: In a patient who has a previous history of alcoholic pancreatitis as her first presentation. This is her 4th admit for this. During her last to stay she denied that she was having problems with alcohol. This time she said she had a couple of drinks few days before admission. And in speaking to her mom 04/11 it is unfortunately confirmed that the patient does have an ongoing problem with alcohol. Patient is asking for opportunities to see if she can get help to stop drinking. I spoke to her and her mom about [facility] options in [place]. In reviewing her November admission, that hospitalist was able to make contact with Dr. Caleb Blevins who is GI at [facility]. When she was discharged in November she was supposed to see him and start setting up for possible drainage. I have call ed his office at [phone]. She was called in December and message was left. She needed an ultrasound and possible ERCP as the evaluation. She never returned their phone call and never made the follow-up appointment. Their office is asking to try and call her again. They would rather deal with her directly. As such I left on the hospital main number and her room number for them to call her and make an appointment for her to be seen in the outpatient setting. She is still tearful, in pain. Needing 2 mg of Dilaudid every 2 hours. She is taking clear liquids, but having intermittent episodes of emesis. 300 cc on 1 and 400 cc on a second overnight. Plan: Continue IV fluids clear liquids Continue Antiemetics, and the increased Dilaudid of 2 mg every 2 hours Folic acid is low so I will give her a banana bag due to her history of alcoholism Unable to do good caloric intake so I am going to start PPN (2) Intractable abdominal pain due to pancreatic pseudocyst Conclusion/Plan: Due to Recurrent pancreatitis. No CT was done with this admission in the ER. On admission, after evaluation, she shared with me that she was having flank pain. This was a new symptom. And she did describe urgency and frequency last week. I wanted to make sure she did not have pyelonephritis and obtained a CT of abdomen and pelvis on April 09. The CT shows a persistent thick-walled peripherally enhancing collection within the pancreatic head and uncinate process measuring 5.4 x 4.7 in transverse dimension. It is increased in size from 4.9 by 4.5 previously. Findings are consistent with walled off necrosis. Peripancreatic fat stranding and fluid are demonstrated and are consistent with acute pancreatitis. No hydronephrosis, kidneys demonstrate symmetric enhancement bilaterally. No striated nephrogram or perinephric stranding to suggest polynephritis. In the peritoneum there is a small to moderate amount of intraperitoneal free fluid. It is a loculated fluid collection in the left paracolic gutter measuring up to 2.4 x 1.9 which is decreased in size compared to the prior study where it measured 3.0 x 2.4. No free air. I discussed the case with general surgery on-call 04/10. I wanted to run the case by them but not necessarily get a consult. 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 Our facility is a critical access hospital and surgery feels that this patient would be better served by interventional radiology or gastroenterology that could possibly drain this cyst (due to its chronicity over the last 4 months) via endoscopic approach. If there is percutaneous drainage, there would be increased risk of fistulization. As such I called [facility] on 04/10. I spoke to the transfer center and did not ask for transfer but I asked for a GI consult. I pushed the films from this admission CT and last admission CT. Dr. Raffy Luu from [facility] graciously called me back. He reviewed the CT from November and this admission. Right now he does not recommend endoscopic drainage since there is quite a bit of space between the stomach and the pancreatic pseudocyst. He would recommend interventional radiology drainage. But he does not feel that there is a need for drainage at all right now. She does not have a fever, she does not have an elevated white cell count. As such we do not presume that it is infected. He would strongly recommend she stop drinking, small frequent low-fat meals with Creon, controlled pain, and wait. Once the pseudocyst is hardened enough and has not resolved on its own, then he would recommend intervention. I updated the patient and her mom on this treatment plan. I reiterated to her on a daily basis that she cannot drink alcohol ever again. I am hoping that with advancing her diet I can slowly increase her intake. If stable she can again go home with pain management. Today I left a message with the pigment making supervisor that was supposed to have seen her this summer. That office will be calling her. I let her know that she should ask for an appointment anytime after April 23. She is tachycardic. Normotensive. White cell count was 11.1 yesterday and is 13.8 today. If she spikes a temperature will need to be started on antibiotics (carbapenem) After blood cultures obtained and I will need to transfer. (3) Nausea and vomiting Conclusion/Plan: Due to recurrent pancreatitis and pain. Again she will receive antiemetics, IV fluids. 04/11 she seemed to be improving and was hungry. Today seems to have regressed with nausea. So I am not moving forward on advancing diet. It's just the pain that won't rodriguez Vomiting type: bilious vomiting Qualified Code(s): R11.14 - Bilious vomiting (4) Flank pain Conclusion/Plan: Urinalysis has a lot of squamous cells. It is considered a contaminated urine specimen. As such no culture will be submitted. Since her history suggest possible UTI before Friday, And she was complaining of flank pain, I did a CT of abdomen and pelvis. There is no evidence of cystitis or pyelonephritis (5) Hypokalemia Resolved Conclusion/Plan: Supplemented IV and responded to that. We will continue to monitor.
[2022-04-12] MEDS: FAT EMULSION 20% 250 ML IV SCH (18:57)
[2022-04-12] MEDS ORDERED: PPN (CLINIMIX E 4.25/5) 2,000 ML with MULTIVITAMIN 10 ML, TRACE ELEMENTS 1 ML IV SCH ×3 (19:00)
[2022-04-13] MEDS: LORazepam 1 MG TABLET PO PRN ×2 (00:14→06:31)
[2022-04-13] MEDS: oxyCODONE 5 MG TABLET PO PRN ×3 (02:10→15:50)
[2022-04-13] MEDS: ONDANSETRON ODT 4 MG TABLET TL PRN (05:49)
[2022-04-13 06:19] LABS: ALBUMIN 2.2 g/dL (3.2-5.5); ALBUMIN/GLOBULIN RATIO 0.7 (1.0-2.2); BILIRUBIN,TOTAL 0.6 mg/dL (0.2-1.0); CALCIUM 8.2 mg/dL (8.5-10.3); CREATININE 0.5 mg/dL (0.4-1.0); MAGNESIUM 1.8 mg/dL (1.7-2.8); PHOSPHORUS 2.4 mg/dL (2.5-4.6); POTASSIUM 3.3 mmol/L (3.5-5.0); TOTAL PROTEIN 5.4 g/dL (6.7-8.2)
[2022-04-13] MEDS: SODIUM CHLORIDE FLUSH 0.9% 10 ML SYRINGE IVP PRN ×3 (06:31→14:23)
[2022-04-13] MEDS: PANTOPRAZOLE 40 MG VIAL IVP SCH (06:31)
[2022-04-13] MEDS ORDERED: iohexoL-300 100 ML VIAL ONE (07:36)
[2022-04-13 07:52] LABS: BASOPHILS % (AUTO) 0.3 %; EOSINOPHILS # (AUTO) 0.3 10^3/uL (0.0-0.7); EOSINOPHILS % (AUTO) 2.8 %; HCT - HEMATOCRIT 32.7 % (37.0-47.0); HGB - HEMOGLOBIN 11.1 g/dL (12.0-16.0); LYMPHOCYTES # (AUTO) 1.4 10^3/uL (1.5-3.5); LYMPHOCYTES % (AUTO) 12.2 %; MEAN CORPUSCULAR HEMOGLOBIN 36.4 pg (27.0-31.0); MEAN CORPUSCULAR HGB CONC 33.9 g/dL (32.0-36.0); MEAN CORPUSCULAR VOLUME 107.2 fL (81.0-99.0); MEAN PLATELET VOLUME 10.3 fL (7.9-10.8); MONOCYTES # (AUTO) 1.3 10^3/uL (0.0-1.0); MONOCYTES % (AUTO) 11.9 %; NEUTROPHILS % (AUTO) 71.9 %; PLT - PLATELET COUNT 316 10^3/uL (130-450); RED BLOOD COUNT 3.05 10^6/uL (4.20-5.40); RED CELL DISTRIBUTION WIDTH 14.7 % (12.0-15.0); WHITE BLOOD COUNT 11.1 x10^3/uL (4.8-10.8)
[2022-04-13] MEDS: DOCUSATE SODIUM 250 MG CAPSULE PO SCH (08:08)
[2022-04-13] MEDS: ENOXAPARIN 40 MG/0.4 ML SYRINGE SUBQ SCH (08:08)
[2022-04-13] MEDS: NICOTINE 21 MG PATCH TOP SCH (08:08)
[2022-04-13] MEDS: SODIUM CHLORIDE FLUSH 0.9% 10 ML SYRINGE IVP SCH ×2 (08:09→18:17)
[2022-04-13] MEDS: HYDROmorphone 2 MG/ML VIAL IVP PRN ×5 (08:09→20:51)
--- NOTE | 2022-04-13 08:29 | CT Report ---
PROCEDURE: ABDOMEN/PELVIS W INDICATIONS: inc pain, tachycardia w pancreatic pseudocyst CONTRAST: 100ml omni 300 TECHNIQUE: After the administration of intravenous contrast, 5 mm thick sections acquired from the diaphragms to the symphysis. 5 mm thick coronal and sagittal reformats were acquired. For radiation dose reducti on, the following was used: automated exposure control, adjustment of mA and/or kV according to angelica ent size. COMPARISON: CT abdomen and pelvis 04/09/2022. CT KUB 12/03/2021. FINDINGS: Image quality: Excellent. ABDOMEN: Lung bases: Small bilateral pleural effusions, new. Bibasilar atelectasis. Solid organs: Liver and spleen are normal in size and enhancement. Gallbladder is not significantly distended. Possible sludge or noncalcified gallstones. Biliary system is non dilated. Hypodense collection at the head of the pancreas measuring 4.7 x 4.4 cm, (40), previously measured 5.4 x 4.7 cm, and more remotely 4.9 x 4.5 cm on 12/03/2021, and more remotely 2.4 x 2.4 cm on 2.. In the craniocaudal dimension this measures 4.6 cm, (12/09), previously 4.7 cm. No additional sondra ections seen in the pancreas. The other portions of the pancreas appear homogeneous. There is moderat e peripancreatic free fluid which is mildly increased compared to 04/09/2022, most pronounced at the infra pancreatic mid mesentery, (3/50) and tracking in the right paracolic gutter. No pancreatic duct al dilatation is seen. Main portal vein is patent. SMV is attenuated likely due to mass effect but appears patent. No pseudo aneurysm is seen. No adrenal nodules. Kidneys demonstrate normal size and enhancement, without hydronephrosis. Minimal right pelviectasis is unchanged. Peritoneum and bowel: There is liquid stool contents in the distal colon and rectum suggesting diarrh ea. The dave ascending colon and transverse colon are prominent. No dilated loops of small bowel. The appendix is not dilated. The stomach is not distended. Mild ascites. No pneumoperitoneum. Nodes and vessels: No retroperitoneal or mesenteric adenopathy by size criteria. Aorta and inferior vena cava are normal in size. Miscellaneous: Small local hernia. Subcutaneous gas in the right abdominal wall likely due to subcuta neous injection. PELVIS: Genitourinary: Bladder wall thickness is normal. No bladder stone. Small left ovarian cyst is suspec heriberto. Anteverted uterus. IUD centered in the uterus. Miscellaneous: No inguinal hernias or adenopathy. Bones: No suspicious bony lesions. No vertebral body compression fractures. IMPRESSION: 1. Collection at the head of the pancreas measuring 4.7 cm is stable to slightly decreased in size. F avor walled off necrosis over pseudocyst. 2. No new loculated pancreatic collection. 3. Increased edema in the mid abdominal mesentery and fluid tracking in the right paracolic gutter. 4. Proximal colon is prominent in size which could be due to adynamic ileus or gaseous distention. No dilated loops of small bowel. Liquid stool contents in the distal colon suggesting diarrhea. Reviewed by: Sami Dee MD on 04/13/2022 7:27 AM WIN Approved by: Sami Dee MD on 04/13/2022 7:27 AM WIN Station ID: [id number]
--- NOTE | 2022-04-13 16:10 | PROVIDER PROGRESS NOTE ---
Subjective - Prog Note Date Prog Note Date: 04/13/22 Prog Note Time: 16:03 - Subjective Pt reports feeling: Worse Subjective: From yesterday today she says that she actually has more pain, more bloating. Nursing does not document any increased emesis. Patient is on the same amount of pain meds. She has consistent tachycardia, is afebrile. Blood pressure stable. She is now been in the hospital for 5 days. Her last drink would have been the day before she was admitted. Current Medications - Current Medications Current Medications: Active Medications Acetaminophen (Acetaminophen 325 Mg Tablet) 650 mg PO Q4HR PRN PRN Reason: Pain 1 to 4, or Fever Last Admin: 04/11/22 15:54 Dose: 650 mg Docusate Sodium (Docusate Sodium 250 Mg Capsule) 250 - 500 mg PO DAILY [facility] Last Admin: 04/13/22 08:08 Dose: 250 mg Enoxaparin Sodium (Enoxaparin 40 Mg/0.4 Ml Syringe) 40 mg SUBQ DAILY [facility] Last Admin: 04/13/22 08:08 Dose: 40 mg Hydromorphone HCl (Hydromorphone 2 Mg/Ml Vial) 2 mg IVP Q2H PRN PRN Reason: Pain 8 to 10 Last Admin: 04/13/22 14:22 Dose: 2 mg Multivitamins 10 ml/ TRACE ELEMENTS 1 ml/ Amino Acids/Electrolytes/Dextrose 2,011 mls @ 83 mls/hr IV 1900 [facility]; Protocol Stop: 04/13/22 18:59 Last Admin: 04/12/22 18:51 Dose: 83 mls/hr Fat Emulsion Intravenous (Intralipid 20%) 250 mls @ 21 mls/hr IV 1900 [facility] Last Infusion: 04/13/22 07:14 Dose: Infused Multivitamins 10 ml/ TRACE ELEMENTS 1 ml/ Potassium Chloride 40 meq/ Amino Acids/Electrolytes/Dextrose 2,031 mls @ 83.826 mls/hr IV 1900 [facility]; Protocol Lorazepam (Lorazepam 1 Mg Tablet) 1 mg PO Q6H PRN PRN Reason: Anxiety Last Admin: 04/13/22 06:31 Dose: 1 mg Nicotine (Nicotine 21 Mg Patch) 1 patch TOP DAILY [facility] Last Admin: 04/13/22 08:08 Dose: 1 patch Ondansetron HCl (Ondansetron Odt 4 Mg Tablet) 4 mg TL Q6HR PRN PRN Reason: Nausea / Vomiting Last Admin: 04/13/22 05:49 Dose: 4 mg Ondansetron HCl (Ondansetron 4 Mg/2 Ml Vial) 4 mg IVP Q6HR PRN PRN Reason: Nausea / Vomiting Last Admin: 04/12/22 15:49 Dose: 4 mg Oxycodone HCl (Oxycodone 5 Mg Tablet) 5 mg PO Q4HR PRN PRN Reason: Pain 5 to 7 Last Admin: 04/13/22 15:50 Dose: 5 mg Pantoprazole Sodium (Pantoprazole 40 Mg Vial) 40 mg IVP QDAC [facility] Last Admin: 04/13/22 06:31 Dose: 40 mg Senna (Senna 8.6 Mg Tablet) 8.6 - 17.2 mg PO DAILY [facility] Last Admin: 04/12/22 09:05 Dose: 8.6 mg Sodium Chloride (Sodium Chloride Flush 0.9% 10 Ml Syringe) 10 ml IVP PRN PRN PRN Reason: NEEDED PER PROVIDER ORDERS Last Admin: 04/13/22 14:23 Dose: 20 ml Sodium Chloride (Sodium Chloride Flush 0.9% 10 Ml Syringe) 10 ml IVP 0100,0900,1700 [facility] Last Admin: 04/13/22 08:09 Dose: 20 ml Lipase/Protease/Amylase [Creon Dr 24,000 Unit Capsule] 24,000 unit PO TIDWM Acetaminophen [Tylenol] 650 mg PO Q6H PRN 04/09/22 Loratadine [Claritin] 10 mg PO DAILY PRN 04/09/22 Sucralfate [Carafate] 1 gm PO QPM 04/09/22 Objective - Vital Signs/Intake & Output Reviewed Vital Signs: Yes Vital Signs: Vital Signs x48h Temp Pulse Resp BP Pulse Ox 04/13/22 15:45 37.9 C 108 H 20 108/69 95 Intake & Output: Intake & Output 04/10/22 04/11/22 04/12/22 04/13/22 23:59 23:59 23:59 23:59 Intake Total 850 1620 2461.200 760 Output Total 638 484 1929 320 Balance 150 1045 761.200 440 - Objective General Appearance: positive: Alert, Mild distress (She tells me she is in pain, and while she is talking to me she is playing games on her phone or texting. What is noticeable is that she appears comfortable, no longer crying even though she says that she feels worse today), Other (from an emotional stability perspective this is calmest and most composed she's been since admit) Eyes Bilateral: positive: PERRL, EOMI ENT: positive: No signs of dehydration Neck: positive: No JVD. negative: Stiff neck Respiratory: positive: No respiratory distress. negative: Wheezes, Rales, Rhonchi Cardiovascular: positive: Regular rate & rhythm, Tachycardia Abdomen: positive: Other (Bloated and distended. Still firm. Has more right upper quadrant pain today. Hypoactive bowel sounds. Bowel movement yesterday and a bowel movement today. Today she has had 3 small stools) Back: positive: CVA tenderness (R) Skin: positive: Color nml, Warm, Dry Extremities: positive: Full ROM, No pedal edema Neurologic/Psychiatric: positive: Oriented x3, CN's nml (2-12), Motor nml - Lab Results Fish Bones: 04/13/22 06:00 04/13/22 06:00 Other Labs: Lab Results x24hrs 04/13/22 04/13/22 Range/Units 06:00 06:00 WBC 11.1 H (4.8-10.8) x10^3/uL RBC 3.05 L (4.20-5.40) 10^6/uL Hgb 11.1 L (12.0-16.0) g/dL Hct 32.7 L (37.0-47.0) % MCV 107.2 H (81.0-99.0) fL MCH 36.4 H (27.0-31.0) pg MCHC 33.9 (32.0-36.0) g/dL RDW 14.7 (12.0-15.0) % Plt Count 316 (130-450) 10^3/uL MPV 10.3 (7.9-10.8) fL Neut # (Auto) 8.0 H (1.5-6.6) 10^3/uL Lymph # (Auto) 1.4 L (1.5-3.5) 10^3/uL [place] # (Auto) 1.3 H (0.0-1.0) 10^3/uL Eos # (Auto) 0.3 (0.0-0.7) 10^3/uL Baso # (Auto) 0.0 (0.0-0.1) 10^3/uL Absolute Nucleated RBC 0.00 x10^3/uL Nucleated RBC % 0.0 /100WBC Sodium 127 L (135-145) mmol/L Potassium 3.3 L (3.5-5.0) mmol/L Chloride 92 L (101-111) mmol/L Carbon Dioxide 26 (21-32) mmol/L Anion Gap 9.0 (6-13) BUN 9 (6-20) mg/dL Creatinine 0.5 (0.4-1.0) mg/dL Estimated GFR (MDRD) 140 (>89) Glucose 122 H (70-100) mg/dL Calcium 8.2 L (8.5-10.3) mg/dL Phosphorus 2.4 L (2.5-4.6) mg/dL Magnesium 1.8 (1.7-2.8) mg/dL Total Bilirubin 0.6 (0.2-1.0) mg/dL AST 14 (10-42) IU/L ALT 21 (10-60) IU/L Alkaline Phosphatase 175 H (42-121) IU/L Total Protein 5.4 L (6.7-8.2) g/dL Albumin 2.2 L (3.2-5.5) g/dL Globulin 3.2 (2.1-4.2) g/dL Albumin/Globulin Ratio 0.7 L (1.0-2.2) Prealbumin 7 L (18-45) mg/dL Triglycerides 134 ( - 149) mg/dL ABX Reporting Has patient been on IV antibiotics over the past 48 hours?: No Assessment/Plan - Problem List (1) Recurrent pancreatitis Impression: In a patient who has a previous history of alcoholic pancreatitis as her first presentation. This is her 4th admit for this. During her last to stay she denied that she was having problems with alcohol. This time she said she had a couple of drinks few days before admission. And in speaking to her mom 04/11 it is unfortunately confirmed that the patient does have an ongoing problem with alcohol. Patient is asking for opportunities to see if she can get help to stop drinking. I spoke to her and her mom about [facility] in [place]. In reviewing her November admission, that hospitalist was able to make contact with Dr. Caleb Blevins who is GI at [facility]. When she was discharged in November she was supposed to see him and start setting up for possible drainage. I have called his office at [phone]. She was called in December and message was left. She needed an ultrasound and possible ERCP as the evaluation. She never returned their phone call and never made the follow-up appointment. Their office is asking to try and call her again. They would rather deal with her directly. As such I left on the hospital main number and her room number for them to call her and make an appointment for her to be seen in the outpatient setting. She is still tearful, in pain. Needing 2 mg of Dilaudid every 2 hours. She is taking clear liquids, but having intermittent episodes of emesis. 300 cc on 1 and 400 cc on a second overnight. Plan: Continue IV fluids clear liquids Continue Antiemetics, and the increased Dilaudid of 2 mg every 2 hours Folic acid is low so I will give her a banana bag due to her history of alcoholism Unable to do good caloric intake so I am going to start PPN (2) Intractable abdominal pain due to pancreatic pseudocyst Conclusion/Plan: Due to Recurrent pancreatitis. No CT was done with this admission in the ER. On admission, after evaluation, she shared with me that she was having flank pain. This was a new symptom. And she did describe urgency and frequency last week. I wanted to make sure she did not have pyelonephritis and obtained a CT of abdomen and pelvis on April 09. The CT shows a persistent thick-walled peripherally enhancing collection within the pancreatic head and uncinate process measuring 5.4 x 4.7 in transverse dimension. It is increased in size from 4.9 by 4.5 previously. Findings are consistent with walled off necrosis. Peripancreatic fat stranding and fluid are demonstrated and are consistent with acute pancreatitis. No hydronephrosis, kidneys demonstrate symmetric enhancement bilaterally. No striated nephrogram or perinephric stranding to suggest polynephritis. In the peritoneum there is a small to moderate amount of intraperitoneal free fl uid. It is a loculated fluid collection in the left paracolic gutter measuring up to 2.4 x 1.9 which is decreased in size compared to the prior study where it measured 3.0 x 2.4. No free air. I discussed the case with general surgery on-call 04/10. I wanted to run the case by them but not necessarily get a consult. 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 Our facility is a critical access hospital and surgery feels that this patient would be better served by interventional radiology or gastroenterology that could possibly drain this cyst (due to its chronicity over the last 4 months) via endoscopic approach. If there is percutaneous drainage, there would be increased risk of fistulization. As such I called [facility] on 04/10. I spoke to the transfer center and did not ask for transfer but I asked for a GI consult. I pushed the films from this admission CT and last admission CT. Dr. Raffy Luu from [facility] group graciously called me back. He reviewed the CT from November and this admission. Right now he does not recommend endoscopic drainage since there is quite a bit of space between the stomach and the pancreatic pseudocyst. He would recommend interventional radiology drainage. But he does not feel th at there is a need for drainage at all right now. She does not have a fever, she does not have an elevated white cell count. As such we do not presume that it is infected. He would strongly recommend she stop drinking, small frequent low-fat meals with Creon, controlled pain, and wait. Once the pseudocyst is hardened enough and has not resolved on its own, then he would recommend intervention. I updated the patient and her mom on this treatment plan. I reiterated to her on a daily basis that she cannot drink alcohol ever again. I am hoping that with advancing her diet I can slowly increase her intake. If stable she can again go home with pain management. Today I left a message with the chemical plant manager that was supposed to have seen her this summer. That office will be calling her. I let her know that she should ask for an appointment anytime after April 23. She is tachycardic. Normotensive. White cell count was 11.1 yesterday and is 13.8 today. If she spikes a temperature will need to be started on antibiotics (carbapenem) After blood cultures obtained and I will need to transfer. (3) Nausea and vomiting Conclusion/Plan: Due to recurrent pancreatitis and pain. Again she will receive antiemetics, IV fluids. 04/11 she seemed to be improving and was hungry. Today seems to have regressed with nausea. So I am not moving forward on advancing diet. It's just the pain that won't rodriguez Vomiting type: bilious vomiting Qualified Code(s): R11.14 - Bilious vomiting (4) Flank pain Conclusion/Plan: Urinalysis has a lot of squamous cells. It is considered a contaminated urine specimen. As such no culture will be submitted. Since her history suggest possible UTI before Friday, And she was complaining of flank pain, I did a CT of abdomen and pelvis. There is no evidence of cystitis or pyelonephritis (5) Hypokalemia Resolved Conclusion/Plan: Supplemented IV and responded to that. We will continue to monitor.
[2022-04-13] MEDS ORDERED: PPN IV SCH ×4 (19:00)
[2022-04-13] MEDS ORDERED: [UNRECOGNIZED DRUG - OTHER] IV SCH ×4 (19:00)
[2022-04-13] MEDS ORDERED: MULTIVITAMIN IV SCH ×4 (19:00)
[2022-04-13] MEDS ORDERED: TRACE ELEMENTS IV SCH ×4 (19:00)
[2022-04-13] MEDS: FAT EMULSION 20% 250 ML IV SCH (19:17)
[2022-04-13] MEDS: ZOLPIDEM 5 MG TABLET PO PRN (20:51)
[2022-04-14] MEDS: HYDROmorphone 2 MG/ML VIAL IVP PRN ×6 (00:04→22:37)
[2022-04-14] MEDS: SODIUM CHLORIDE FLUSH 0.9% 10 ML SYRINGE IVP PRN ×5 (00:05→12:31)
[2022-04-14] MEDS: SODIUM CHLORIDE FLUSH 0.9% 10 ML SYRINGE IVP SCH ×3 (00:21→18:52)
[2022-04-14] MEDS: oxyCODONE 5 MG TABLET PO PRN ×3 (03:07→15:44)
[2022-04-14] MEDS: ACETAMINOPHEN 325 MG TABLET PO PRN ×2 (04:03→17:19)
[2022-04-14 04:51] LABS: BASOPHILS % (AUTO) 0.3 %; EOSINOPHILS # (AUTO) 0.2 10^3/uL (0.0-0.7); HGB - HEMOGLOBIN 10.5 g/dL (12.0-16.0); LYMPHOCYTES # (AUTO) 1.3 10^3/uL (1.5-3.5); LYMPHOCYTES % (AUTO) 10.8 %; MEAN CORPUSCULAR HEMOGLOBIN 36.5 pg (27.0-31.0); MEAN CORPUSCULAR HGB CONC 33.9 g/dL (32.0-36.0); MEAN CORPUSCULAR VOLUME 107.6 fL (81.0-99.0); MEAN PLATELET VOLUME 9.6 fL (7.9-10.8); MONOCYTES # (AUTO) 1.3 10^3/uL (0.0-1.0); MONOCYTES % (AUTO) 10.5 %; NEUTROPHILS % (AUTO) 75.9 %; PLT - PLATELET COUNT 350 10^3/uL (130-450); RED BLOOD COUNT 2.88 10^6/uL (4.20-5.40); WHITE BLOOD COUNT 11.9 x10^3/uL (4.8-10.8)
[2022-04-14] MEDS: PANTOPRAZOLE 40 MG VIAL IVP SCH ×2 (06:14→07:34)
[2022-04-14] MEDS: SENNA 8.6 MG TABLET PO SCH (08:04)
[2022-04-14] MEDS: DOCUSATE SODIUM 250 MG CAPSULE PO SCH (08:04)
[2022-04-14] MEDS: NICOTINE 21 MG PATCH TOP SCH (08:05)
[2022-04-14] MEDS: ENOXAPARIN 40 MG/0.4 ML SYRINGE SUBQ SCH (08:08)
[2022-04-14] MEDS: ONDANSETRON ODT 4 MG TABLET TL PRN ×2 (10:20→22:36)
[2022-04-14] MEDS ORDERED: HYDROmorphone 2 MG/ML VIAL IVP STA (12:52)
[2022-04-14 15:10] LABS: ALBUMIN 2.2 g/dL (3.2-5.5); ALBUMIN/GLOBULIN RATIO 0.7 (1.0-2.2); BILIRUBIN,TOTAL 0.3 mg/dL (0.2-1.0); CALCIUM 8.2 mg/dL (8.5-10.3); CREATININE 0.5 mg/dL (0.4-1.0); POTASSIUM 3.3 mmol/L (3.5-5.0); TOTAL PROTEIN 5.5 g/dL (6.7-8.2)
--- NOTE | 2022-04-14 17:43 | PROVIDER PROGRESS NOTE ---
Subjective - Prog Note Date Prog Note Date: 04/14/22 Prog Note Time: 17:41 - Subjective Pt reports feeling: Worse Subjective: Yesterday she was relatively pain-free. At least her examination showed a comfortable patient who was playing video games, and not tearful. However this morning she feels like she had a miserable night. Pain continues to be in both flanks. Also left upper quadrant. Not so much vomiting for several days now but the waves of nausea are frequent. She is tolerating the PPN. No fevers. On labs her alk phos is continuing to rise. It was 93 on admission and has been steadily rising and is 287 today. Bilirubin is not elevated. Liver enzymes are stable. Lipase has come down to normal by April 12. Current Medications - Current Medications Current Medications: Active Medications Acetaminophen (Acetaminophen 325 Mg Tablet) 650 mg PO Q4HR PRN PRN Reason: Pain 1 to 4, or Fever Last Admin: 04/14/22 17:19 Dose: 650 mg Docusate Sodium (Docusate Sodium 250 Mg Capsule) 250 - 500 mg PO DAILY [facility] Last Admin: 04/14/22 08:04 Dose: 250 mg Enoxaparin Sodium (Enoxaparin 40 Mg/0.4 Ml Syringe) 40 mg SUBQ DAILY [facility] Last Admin: 04/14/22 08:08 Dose: 40 mg Hydromorphone HCl (Hydromorphone 2 Mg/Ml Vial) 2 mg IVP Q2H PRN PRN Reason: Pain 8 to 10 Last Admin: 04/14/22 12:29 Dose: 2 mg Fat Emulsion Intravenous (Intralipid 20%) 250 mls @ 21 mls/hr IV 1900 [facility] Last Infusion: 04/14/22 07:14 Dose: Infused Multivitamins 10 ml/ TRACE ELEMENTS 1 ml/ Potassium Chloride 40 meq/ Amino Acids/Electrolytes/Dextrose 2,031 mls @ 83.826 mls/hr IV 1900 [facility]; Protocol Stop: 04/14/22 18:59 Last Admin: 04/13/22 19:15 Dose: 83.826 mls/hr Multivitamins 10 ml/ TRACE ELEMENTS 1 ml/ Potassium Chloride 60 meq/ Amino Acids/Electrolytes/Dextrose 2,041 mls @ 84.238 mls/hr IV 1900 [facility]; Protocol Lorazepam (Lorazepam 1 Mg Tablet) 1 mg PO Q6H PRN PRN Reason: Anxiety Last Admin: 04/13/22 06:31 Dose: 1 mg Nicotine (Nicotine 21 Mg Patch) 1 patch TOP DAILY [facility] Last Admin: 04/14/22 08:05 Dose: 1 patch Ondansetron HCl (Ondansetron Odt 4 Mg Tablet) 4 mg TL Q6HR PRN PRN Reason: Nausea / Vomiting Last Admin: 04/14/22 10:20 Dose: 4 mg Ondansetron HCl (Ondansetron 4 Mg/2 Ml Vial) 4 mg IVP Q6HR PRN PRN Reason: Nausea / Vomiting Last Admin: 04/12/22 15:49 Dose: 4 mg Oxycodone HCl (Oxycodone 5 Mg Tablet) 5 mg PO Q4HR PRN PRN Reason: Pain 5 to 7 Last Admin: 04/14/22 15:44 Dose: 5 mg Pantoprazole Sodium (Pantoprazole 40 Mg Vial) 40 mg IVP QDAC [facility] Last Admin: 04/14/22 07:34 Dose: Not Given Senna (Senna 8.6 Mg Tablet) 8.6 - 17.2 mg PO DAILY [facility] Last Admin: 04/14/22 08:04 Dose: 8.6 mg Sodium Chloride (Sodium Chloride Flush 0.9% 10 Ml Syringe) 10 ml IVP PRN PRN PRN Reason: NEEDED PER PROVIDER ORDERS Last Admin: 04/14/22 12:31 Dose: 10 ml Sodium Chloride (Sodium Chloride Flush 0.9% 10 Ml Syringe) 10 ml IVP 0100,0900,1700 [facility] Last Admin: 04/14/22 06:15 Dose: 10 ml Zolpidem Tartrate (Zolpidem 5 Mg Tablet) 5 mg PO QPM PRN PRN Reason: Insomnia Last Admin: 04/13/22 20:51 Dose: 5 mg Lipase/Protease/Amylase [Creon Dr 24,000 Unit Capsule] 24,000 unit PO TIDWM 04/08/22 Acetaminophen [Tylenol] 650 mg PO Q6H PRN 04/09/22 Loratadine [Claritin] 10 mg PO DAILY PRN 04/09/22 Sucralfate [Carafate] 1 gm PO QPM 04/09/22 Objective - Vital Signs/Intake & Output Reviewed Vital Signs: Yes Vital Signs: Vital Signs x48h Temp Pulse Resp BP Pulse Ox 04/14/22 15:39 37.0 C 94 18 124/78 98 Intake & Output: Intake & Output 04/11/22 04/12/22 04/13/22 04/14/22 23:59 23:59 23:59 23:59 Intake Total 1620 2461.200 1060 3221 Output Total 575 1700 620 700 Balance 1045 761.012 110 4824 - Objective General Appearance: positive: Alert, Other (Tearful white female who looks stated age. Distress as manifested by crying. No yelling, no writhing in pain. Wants to be is perfectly still if she can in bed) Eyes Bilateral: positive: PERRL, EOMI, No scleral icterus ENT: positive: No signs of dehydration Neck: positive: No JVD Respiratory: positive: No respiratory distress. negative: Wheezes, Rales, Rhonchi Cardiovascular: positive: Regular rate & rhythm, Other (She had tachycardia the 27th through the 29th. Today she Has Dropped below 100 consistently) Abdomen: positive: Tenderness (Diffusely. But most of her pain is in the left upper quadrant, right flank, hypoactive bowel sounds, distended belly. No rebound or guarding) Skin: positive: Warm, Dry, Pallor Extremities: positive: Full ROM, No pedal edema Neurologic/Psychiatric: positive: Oriented x3, CN's nml (2-12), Motor nml - Lab Results Fish Bones: 04/14/22 04:22 04/14/22 14:52 Other Labs: Lab Results x24hrs 04/14/22 04/14/22 Range/Units 14:52 04:22 WBC 11.9 H (4.8-10.8) x10^3/uL RBC 2.88 L (4.20-5.40) 10^6/uL Hgb 10.5 L (12.0-16.0) g/dL Hct 31.0 L (37.0-47.0) % MCV 107.6 H (81.0-99.0) fL MCH 36.5 H (27.0-31.0) pg MCHC 33.9 (32.0-36.0) g/dL RDW 15.0 (12.0-15.0) % Plt Count 350 (130-450) 10^3/uL MPV 9.6 (7.9-10.8) fL Neut # (Auto) 9.0 H (1.5-6.6) 10^3/uL Lymph # (Auto) 1.3 L (1.5-3.5) 10^3/uL [place] # (Auto) 1.3 H (0.0-1.0) 10^3/uL Eos # (Auto) 0.2 (0.0-0.7) 10^3/uL Baso # (Auto) 0.0 (0.0-0.1) 10^3/uL Absolute Nucleated RBC 0.00 x10^3/uL Nucleated RBC % 0.0 /100WBC Sodium 130 L (135-145) mmol/L Potassium 3.3 L (3.5-5.0) mmol/L Chloride 95 L (101-111) mmol/L Carbon Dioxide 25 (21-32) mmol/L Anion Gap 10.0 (6-13) BUN 9 (6-20) mg/dL Creatinine 0.5 (0.4-1.0) mg/dL Estimated GFR (MDRD) 140 (>89) Glucose 127 H (70-100) mg/dL Calcium 8.2 L (8.5-10.3) mg/dL Total Bilirubin 0.3 (0.2-1.0) mg/dL AST 26 (10-42) IU/L ALT 21 (10-60) IU/L Alkaline Phosphatase 287 H (42-121) IU/L Total Protein 5.5 L (6.7-8.2) g/dL Albumin 2.2 L (3.2-5.5) g/dL Globulin 3.3 (2.1-4.2) g/dL Albumin/Globulin Ratio 0.7 L (1.0-2.2) Assessment/Plan - Problem List (1) Recurrent pancreatitis Impression: This is her fourth admission in approximately a year and a half. She initially denied alcohol abuse but unfortunately has confessed that that is a definitely a problem. Mom validates that and says that the patient is getting worse and has even been drinking on the job. We have made referrals to [facility] in [place] for when the patient leaves the hospital. In reviewing her November admission, that hospitalist was able to make contact with Dr. Caleb Blevins who is GI at [facility]. When she was discharged in November she was supposed to see him and start setting up for possible drainage. I have called his office on 04/13 at [phone]. She was called in December and message was left. She needed an ultrasound and possible ERCP as the evaluation. She never returned their phone call and never made the follow-up appointment. Their office is asking to try and call her again. They would rather deal with her directly. As such I left on the hospital main number and her room number for them to call her and make an appointment for her to be seen in the outpatient setting. She has a waxing and waning pain pattern. Yesterday I thought we were turning the corner. Tachycardia is an indirect sign has definitely improved. No fever, no white cell count. Lipase is normal. Yet significant pain.She received a b anana bag. Has been started on PPN as of April 13. Plan: Continue IV fluids clear liquids Continue Antiemetics, and the increased Dilaudid of 2 mg every 2 hours PICC line tomorrow. Possibly consider TPN (2) Intractable abdominal pain due to pancreatic pseudocyst Conclusion/Plan: Due to Recurrent pancreatitis. No CT was done with this admission in the ER. On admission, after evaluation, she shared with me that she was having flank pain. This was a new symptom. And she did describe urgency and frequency last week. I wanted to make sure she did not have pyelonephritis and obtained a CT of abdomen and pelvis on April 09. The CT shows a persistent thick-walled peripherally enhancing collection within the pancreatic head and uncinate process measuring 5.4 x 4.7 in transverse dimension. It is increased in size from 4.9 by 4.5 previously. Findings are consistent with walled off necrosis. Peripancreatic fat stranding and fluid are demonstrated and are consistent with acute pancreatitis. No hydronephrosis, kidneys demonstrate symmetric enhancement bilaterally. No striated nephrogram or perinephric stranding to suggest polynephritis. In the peritoneum there is a small to moderate amount of intraperitoneal free fluid. It is a loculated fluid collection in the left paracolic gutter measuring up to 2.4 x 1.9 which is decreased in size compared to the prior study where it measured 3.0 x 2.4. No free air. I discussed the case with general surgery on-call 04/10. I wanted to run the case by them but not necessarily get a consult. 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 Our facility is a critical access hospital and surgery feels that this patient would be better served by interventional radiology or gastroenterology that could possibly drain this cyst (due to its chronicity over the last 4 months) via endoscopic approach. If there is percutaneous drainage, there would be increased risk of fistulization. As such I called [facility] on 04/10. I spoke to the transfer center and did not ask for transfer but I asked for a GI consult. I pushed the films from this admission CT and last admission CT. Dr. Raffy Luu from [facility] group graciously called me back. He reviewed the CT from November and this admission. Right now he does not recommend endoscopic drainage since there is quite a bit of space between the stomach and the pancreatic pseudocyst. He would recommend interventional radiology drainage. But he does not feel that there is a need for drainage at all right now. She does not have a fever, she does not have an elevated white cell count. As such we do not presume that it is infected. He would strongly recommend she stop drinking, small frequent low-fat meals with Creon, controlled pain, and wait. Once the pseudocyst is h ardened enough and has not resolved on its own, then he would recommend intervention. 04/13 I left a message with the snubber that was supposed to have seen her this summer. That office will be calling her. I let her know that she should ask for an appointment anytime after April 23. On the basis of 3 days of tachycardia, a white cell count that was not coming down, I considered starting her on meropenem. Today tachycardia has resolved. White cell count still elevated but not rising any further. Holding off on antibiotics. (3) Nausea and vomiting Conclusion/Plan: Due to recurrent pancreatitis and pain. Again she will receive antiemetics, IV fluids. 04/11 she seemed to be improving and was hungry. Clear liquid started then. She really has not progressed from there since pain waxes and wanes. Nausea continues to be severe. On PPN Vomiting type: bilious vomiting Qualified Code(s): R11.14 - Bilious vomiting (4) Flank pain Conclusion/Plan: Urinalysis has a lot of squamous cells. It is considered a contaminated urine specimen. As such no culture will be submitted. Since her history suggest possible UTI before Friday, And she was complaining of flank pain, I did a CT of abdomen and pelvis. There is no evidence of cystit is or pyelonephritis (5) Hypokalemia Resolved Conclusion/Plan: Supplemented IV and responded to that. We will continue to monitor. Today the pharmacist is adding potassium to her bag on the basis of the K riders we had been supplementing with
[2022-04-14] MEDS: FAT EMULSION 20% 250 ML IV SCH (18:59)
[2022-04-14] MEDS ORDERED: PPN IV SCH ×4 (19:00)
[2022-04-14] MEDS ORDERED: MULTIVITAMIN IV SCH ×4 (19:00)
[2022-04-14] MEDS ORDERED: TRACE ELEMENTS IV SCH ×4 (19:00)
[2022-04-14] MEDS ORDERED: [UNRECOGNIZED DRUG - OTHER] IV SCH ×4 (19:00)
[2022-04-14] MEDS: ZOLPIDEM 5 MG TABLET PO PRN (20:13)
[2022-04-15] MEDS: HYDROmorphone 2 MG/ML VIAL IVP PRN ×4 (01:25→21:13)
[2022-04-15] MEDS: SODIUM CHLORIDE FLUSH 0.9% 10 ML SYRINGE IVP SCH ×4 (01:25→23:28)
[2022-04-15] MEDS: ACETAMINOPHEN 325 MG TABLET PO PRN ×2 (04:38→23:28)
[2022-04-15 05:52] LABS: BASOPHILS # (AUTO) 0.1 10^3/uL (0.0-0.1); BASOPHILS % (AUTO) 0.5 %; EOSINOPHILS # (AUTO) 0.3 10^3/uL (0.0-0.7); HCT - HEMATOCRIT 30.4 % (37.0-47.0); HGB - HEMOGLOBIN 10.2 g/dL (12.0-16.0); LYMPHOCYTES # (AUTO) 1.2 10^3/uL (1.5-3.5); LYMPHOCYTES % (AUTO) 9.6 %; MEAN CORPUSCULAR HEMOGLOBIN 35.4 pg (27.0-31.0); MEAN CORPUSCULAR HGB CONC 33.6 g/dL (32.0-36.0); MEAN CORPUSCULAR VOLUME 105.6 fL (81.0-99.0); MEAN PLATELET VOLUME 9.5 fL (7.9-10.8); MONOCYTES # (AUTO) 1.1 10^3/uL (0.0-1.0); MONOCYTES % (AUTO) 8.8 %; NEUTROPHILS # (AUTO) 10.1 10^3/uL (1.5-6.6); NEUTROPHILS % (AUTO) 78.6 %; PLT - PLATELET COUNT 391 10^3/uL (130-450); RED BLOOD COUNT 2.88 10^6/uL (4.20-5.40); WHITE BLOOD COUNT 12.8 x10^3/uL (4.8-10.8)
[2022-04-15 06:07] LABS: ALBUMIN 2.2 g/dL (3.2-5.5); ALBUMIN/GLOBULIN RATIO 0.7 (1.0-2.2); BILIRUBIN,TOTAL 0.3 mg/dL (0.2-1.0); CALCIUM 8.2 mg/dL (8.5-10.3); CREATININE 0.5 mg/dL (0.4-1.0); PHOSPHORUS 4.3 mg/dL (2.5-4.6); POTASSIUM 3.5 mmol/L (3.5-5.0); TOTAL PROTEIN 5.5 g/dL (6.7-8.2)
[2022-04-15] MEDS: oxyCODONE 5 MG TABLET PO PRN ×2 (06:56→13:50)
--- NOTE | 2022-04-15 07:50 | PROVIDER PROGRESS NOTE ---
Subjective - Prog Note Date Prog Note Date: 04/15/22 Prog Note Time: 07:50 - Subjective Pt reports feeling: No change Subjective: She is not much improved. Tearful. Constant pain. Unable to tolerate clear liquids. She is missing her living with her children for the first time and she is depressed. Because of lack of for progress, I asked general surgery to review her case again. I truly appreciate his concise note. Current Medications - Current Medications Current Medications: Active Medications Acetaminophen (Acetaminophen 325 Mg Tablet) 650 mg PO Q4HR PRN PRN Reason: Pain 1 to 4, or Fever Last Admin: 04/15/22 04:38 Dose: 650 mg Docusate Sodium (Docusate Sodium 250 Mg Capsule) 250 - 500 mg PO DAILY LUCY Last Admin: 04/14/22 08:04 Dose: 250 mg Enoxaparin Sodium (Enoxaparin 40 Mg/0.4 Ml Syringe) 40 mg SUBQ DAILY LUCY Last Admin: 04/14/22 08:08 Dose: 40 mg Hydromorphone HCl (Hydromorphone 2 Mg/Ml Vial) 2 mg IVP Q2H PRN PRN Reason: Pain 8 to 10 Last Admin: 04/15/22 01:25 Dose: 2 mg Fat Emulsion Intravenous (Intralipid 20%) 250 mls @ 21 mls/hr IV 1900 LUCY Last Infusion: 04/15/22 06:56 Dose: Infused Multivitamins 10 ml/ TRACE ELEMENTS 1 ml/ Potassium Chloride 60 meq/ Amino Acids/Electrolytes/Dextrose 2,041 mls @ 84.238 mls/hr IV 1900 LUCY; Protocol Last Admin: 04/14/22 18:53 Dose: 84.238 mls/hr Lorazepam (Lorazepam 1 Mg Tablet) 1 mg PO Q6H PRN PRN Reason: Anxiety Last Admin: 04/13/22 06:31 Dose: 1 mg Nicotine (Nicotine 21 Mg Patch) 1 patch TOP DAILY LUCY Last Admin: 04/14/22 08:05 Dose: 1 patch Ondansetron HCl (Ondansetron Odt 4 Mg Tablet) 4 mg TL Q6HR PRN PRN Reason: Nausea / Vomiting Last Admin: 04/14/22 22:36 Dose: 4 mg Ondansetron HCl (Ondansetron 4 Mg/2 Ml Vial) 4 mg IVP Q6HR PRN PRN Reason: Nausea / Vomiting Last Admin: 04/12/22 15:49 Dose: 4 mg Oxycodone HCl (Oxycodone 5 Mg Tablet) 5 mg PO Q4HR PRN PRN Reason: Pain 5 to 7 Last Admin: 04/15/22 06:56 Dose: 5 mg Pantoprazole Sodium (Pantoprazole 40 Mg Vial) 40 mg IVP QDAC [facility] Last Admin: 04/14/22 07:34 Dose: Not Given Senna (Senna 8.6 Mg Tablet) 8.6 - 17.2 mg PO DAILY [facility] Last Admin: 04/14/22 08:04 Dose: 8.6 mg Sodium Chloride (Sodium Chloride Flush 0.9% 10 Ml Syringe) 10 ml IVP PRN PRN PRN Reason: NEEDED PER PROVIDER ORDERS Last Admin: 04/14/22 12:31 Dose: 10 ml Sodium Chloride (Sodium Chloride Flush 0.9% 10 Ml Syringe) 10 ml IVP 0100,0900,1700 [facility] Last Admin: 04/15/22 01:25 Dose: 10 ml Zolpidem Tartrate (Zolpidem 5 Mg Tablet) 5 mg PO QPM PRN PRN Reason: Insomnia Last Admin: 04/14/22 20:13 Dose: 5 mg Lipase/Protease/Amylase [Creon Dr 24,000 Unit Capsule] 24,000 unit PO TIDWM 04/08/22 Acetaminophen [Tylenol] 650 mg PO Q6H PRN 04/09/22 Loratadine [Claritin] 10 mg PO DAILY PRN 04/09/22 Sucralfate [Carafate] 1 gm PO QPM 04/09/22 Objective - Vital Signs/Intake & Output Reviewed Vital Signs: Yes Intake & Output: Intake & Output 04/12/22 04/13/22 04/14/22 04/15/22 23:59 23:59 23:59 23:59 Intake Total 2461.200 1060 5802 650 Output Total 3776 779 7259 500 Balance 761.231 268 4229 150 - Objective General Appearance: positive: Alert, Moderate distress (7 out of 10 abdominal pain), Other (Tearful, depressed) Eyes Bilateral: positive: PERRL, EOMI ENT: positive: No signs of dehydration Neck: positive: No JVD Respiratory: positive: No respiratory distress. negative: Wheezes, Rales, Rhonchi Cardiovascular: positive: Regular rate & rhythm. negative: Tachycardia (She has not had tachycardia since April 13.) Abdomen: positive: Other (Tenderness over right flank and right upper quadrant. Epigastrium. Also generalized. But worse over the epigastrium. Abdomen diffusely bloated. Hypoactive bowel sounds. No rebound or guarding.) Skin: positive: Warm, Dry Extremities: positive: Full ROM, No pedal edema Neurologic/Psychiatric: positive: Oriented x3, CN's nml (2-12), Motor nml, Depressed mood/affect - Lab Results Fish Bones: 04/15/22 05:33 04/15/22 05:33 Other Labs: Lab Results x24hrs 04/15/22 04/15/22 04/14/22 Range/Units 05:33 05:33 14:52 WBC 12.8 H (4.8-10.8) x10^3/uL RBC 2.88 L (4.20-5.40) 10^6/uL Hgb 10.2 L (12.0-16.0) g/dL Hct 30.4 L (37.0-47.0) % MCV 105.6 H (81.0-99.0) fL MCH 35.4 H (27.0-31.0) pg MCHC 33.6 (32.0-36.0) g/dL RDW 15.0 (12.0-15.0) % Plt Count 391 (130-450) 10^3/uL MPV 9.5 (7.9-10.8) fL Neut # (Auto) 10.1 H (1.5-6.6) 10^3/uL Lymph # (Auto) 1.2 L (1.5-3.5) 10^3/uL Gonzales # (Auto) 1.1 H (0.0-1.0) 10^3/uL Eos # (Auto) 0.3 (0.0-0.7) 10^3/uL Baso # (Auto) 0.1 (0.0-0.1) 10^3/uL Absolute Nucleated RBC 0.00 x10^3/uL Nucleated RBC % 0.0 /100WBC Sodium 129 L 130 L (135-145) mmol/L Potassium 3.5 3.3 L (3.5-5.0) mmol/L Chloride 96 L 95 L (101-111) mmol/L Carbon Dioxide 25 25 (21-32) mmol/L Anion Gap 8.0 10.0 (6-13) BUN 8 9 (6-20) mg/dL Creatinine 0.5 0.5 (0.4-1.0) mg/dL Estimated GFR (MDRD) 140 140 (>89) Glucose 129 H 127 H (70-100) mg/dL Calcium 8.2 L 8.2 L (8.5-10.3) mg/dL Phosphorus 4.3 (2.5-4.6) mg/dL Magnesium 2.0 (1.7-2.8) mg/dL Total Bilirubin 0.3 0.3 (0.2-1.0) mg/dL AST 33 26 (10-42) IU/L ALT 27 21 (10-60) IU/L Alkaline Phosphatase 306 H 287 H (42-121) IU/L Total Protein 5.5 L 5.5 L (6.7-8.2) g/dL Albumin 2.2 L 2.2 L (3.2-5.5) g/dL Globulin 3.3 3.3 (2.1-4.2) g/dL Albumin/Globulin Ratio 0.7 L 0.7 L (1.0-2.2) Prealbumin 7 L (18-45) mg/dL Triglycerides 169 H ( - 149) mg/dL ABX Reporting Has patient been on IV antibiotics over the past 48 hours?: No Assessment/Plan - Problem List (1) Recurrent pancreatitis Impression: This is her fourth admission in approximately a year and a half. She initially denied alcohol abuse but unfortunately has confessed that that is a definitely a problem. Mom validates that and says that the patient is getting worse and has even been drinking on the job. We have made referrals to [facility] in [place] for when the patient leaves the hospital. In reviewing her November admission, that hospitalist was able to make contact with Dr. Caleb Blevins who is GI at [facility]. When she was discharged in November she was supposed to see him and start setting up for possible drainage. I have called his office on 04/13 at [phone]. She was called in December and message was left. She needed an ultrasound and possible ERCP as the evaluation. She never returned their phone call and never made the follow-up appointment. Their office is asking to try and call her again. They would rather deal with her directly. As such I left on the hospital main number and her room number for them to call her and make an appointment for her to be seen in the outpatient setting. The patient has now been here 7 days. While we have better control of her pain and that it is no longer a roller coaster phenomena, she has been unable to keep any food down. Today is day 3 of PPN. I asked general surgery to give me an opinion and they really feel that unless that pseudocyst is drained, it will continue to give her gastric outlet obstruction at the level of the duodenum. He recommends transfer to higher level of care. [facility] is at capacity and states that may be a call in 12 hours. [facility] has no beds and they are boarding in the ER [facility] has no beds and they are boarding in the ER [facility] says that discharges are occurring. They have taken the patient's name, facesheet, and I have pushed CT to them. They would like a COVID test. They are not promising me a bed but at least they will start the process. Plan: PICC line today change PPN to TPN continue to ask for bed for higher level of care. clear liquids as tolerated Continue Antiemetics, and the increased Dilaudid of 2 mg every 2 hours (2) Intractable abdominal pain due to pancreatic pseudocyst Conclusion/Plan: Due to Recurrent pancreatitis. No CT was done with this admission in the ER. On admission, after evaluation, she shared with me that she was having flank pain. This was a new symptom. And she did describe urgency and frequency last week. I wanted to make sure she did not have pyelonephritis and obtained a CT of abdomen and pelvis on April 09. The CT shows a persistent thick-walled peripherally enhancing collection within the pancreatic head and uncinate process measuring 5.4 x 4.7 in transverse dimension. It is increased in size from 4.9 by 4.5 previously. Findings are consistent with walled off necrosis. Peripancreatic fat stranding and fluid are demonstrated and are consistent with acute pancreatitis. No hydronephrosis, kidneys demonstrate symmetric enhancement bilaterally. No striated nephrogram or perinephric stranding to suggest polynephritis. In the peritoneum there is a small to moderate amount of intraperitoneal free fluid. It is a loculated fluid collection in the left paracolic gutter measuring up to 2.4 x 1.9 which is decreased in size compared to the prior study where it measured 3.0 x 2.4. No free air. I discussed the case with general surgery on-call 04/10. I wanted to run the case by them but not necessarily get a consult. 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 Our facility is a critical access hospital and surgery feels that this patient would be better served by interventional radiology or gastroenterology that could possibly drain this cyst (due to its chronicity over the last 4 months) via endoscopic approach. If there is percutaneous drainage, there would be increased risk of fistulization. As such I called [facility] on 04/10. I spoke to the transfer center and did not ask for transfer but I asked for a GI consult. I pushed the films from this admission CT and last admission CT. Dr. Raffy Luu from [facility] graciously called me back. He reviewed the CT from November and this admission. Right now he does not recommend endoscopic drainage since there is quite a bit of space between the stomach and the pancreatic pseudocyst. He would recommend interventional radiology drainage. But he does not feel that there is a need for drainage at all right now. She does not have a fever, she does not have an elevated white cell count. As such we do not presume that it is infected. He would strongly recommend she stop drinking, small frequent low-fat meals with Creon, controlled pain, and wait. Once the pseudocyst is hardened enough and has not resolved on its own, then he would recommend intervention. 04/13 I left a message with the talent acquisition specialist that was supposed to have seen her this summer. That office will be calling her. I let her know that she should ask for an appointment anytime after April 23. On the basis of 3 days of tachycardia, a white cell count that was not coming down, I considered starting her on meropenem. Tachycardia has resolved by 04/14. White cell count still elevated but not rising any further. Holding off on antibiotics. But I am worried about infected necrosis and deterioration to septic shock. I appreciate general surgery's opinion. And I am trying to transfer the patient to higher level of care. (3) Nausea and vomiting Conclusion/Plan: Due to recurrent pancreatitis, Pain, and pseudocyst that is giving her a gastric outlet obstruction as it sits on her duodenum. Again she will receive antiemetics, IV fluids. 04/11 she seemed to be improving and was hungry. Clear liquid started then. She really has not progressed from there since pain waxes and wanes. Nausea continues to be severe. On PPN and that will be changed to TPN today. Vomiting type: bilious vomiting Qualified Code(s): R11.14 - Bilious vomiting (4) Flank pain Conclusion/Plan: Urinalysis has a lot of squamous cells. It is considered a contaminated urine specimen. As such no culture will be submitted. Since her history suggest possible UTI before Friday, And she was complaining of flank pain, I did a CT of abdomen and pelvis. There is no evidence of cystitis or pyelonephritis (5) Hypokalemia Resolved Conclusion/Plan: Supplemented IV and responded to that. We will continue to monitor. In her PPN, we have 60 mill equivalents potassium. So potassium is holding stable today. The only thing I am noticing is hyponatremia and we will have to watch that with her TPN.
--- NOTE | 2022-04-15 08:35 | CONSULTATION NOTE ---
Referring Provider Consult Date: 04/15/22 History of Present Illness - Admitted From Admitted From:: ed - History Obtained From Records Reviewed: yes History obtained from: chart review Exam Limitations: not examined - History of Present Illness HPI Comment/Other: chart and imaging and history reviewed. I am not insurance verification clerk today and not nearby at this time. I can see her tomorrow. she has had waxing and waning pancreatitis for many months. history etoh use. no gallstones. admitted for recurrent nausea, vomiting with little emesis, and increased pain review of many ct scans show she has developed a chronic well defined pancreatic head pseudocyst at the duodenum over the last 4 months. she has partial gastric outlet obstruction from this clinically. History - Past Medical History Cardiovascular: reports: None Respiratory: reports: None Neuro: reports: Headaches Endocrine/Autoimmune: reports: None GI: reports: GERD, Ulcers, Pancreatitis, Cholelithiasis ORTHODONTIC ASSISTANT: reports: None : reports: Kidney stones HEENT: reports: None Psych: reports: Depression, Anxiety, Panic attacks Musculoskeletal: reports: None Derm: reports: None MRSA Hx?: No - Past Surgical History /ORTHODONTIC ASSISTANT: reports: Other HEENT: reports: Tonsil/Adenoidectomy - Family & Social History Family History: Mother: Alive and Well Family History Comment/Other: Her mother has history of thyroid disease. Living arrangement: At home Living Situation: With family Social History Notes: She previously drank alcohol on a consistent basis but now barely has any. She smokes a couple cigarettes a day and has been doing so for the past 16 years. She lives with her daughter and with her mother. She works full-time. - Substance History Use: Uses substance without health or social issues: Tobacco - POLST Patient has POLST: No POLST Status: Full Code Meds/Allgy - Home Medications Home Medications: Ambulatory Orders Medication Instructions Recorded Confirmed Pantoprazole [Protonix] 40 mg PO DAILY 30 Days #30 tablet 03/13/22 04/09/22 HYDROmorphone [Dilaudid] 2 mg PO Q6H PRN #20 tablet 04/08/22 04/09/22 LORazepam [Ativan] 1 mg PO Q6H PRN #15 tablet 04/08/22 04/09/22 Lipase/Protease/Amylase [Creon Dr 24,000 unit PO TIDWM 04/08/22 04/09/22 24,000 Unit Capsule] Ondansetron Odt [Zofran] 4 mg TL Q6H PRN #15 tablet 04/08/22 04/09/22 Acetaminophen [Tylenol] 650 mg PO Q6H PRN 04/09/22 04/09/22 Loratadine [Claritin] 10 mg PO DAILY PRN 04/09/22 04/09/22 Sucralfate [Carafate] 1 gm PO QPM 04/09/22 04/09/22 - Allergies Allergies/Adverse Reactions: Allergies Allergy/AdvReac Type Severity Reaction Status Date / Time No Known Drug Allergies Allergy Verified 04/09/22 10:09 Conclusion/Plan - Problem List (1) Nausea and vomiting Conclusion/Plan: she has had waxing and waning pancreatitis for many months. over the last 4 months she has developed a well defined pancreatic head pseudocyst at the duodenum. in addition to waxing and waning pancreatitis she has partial gastric outlet obstruction from the chronic pseudocyst. agree with current care. clears and tpn I believe she needs to have the pancreatic pseudocyst addressed by a facility that has advanced gi capability ie endoscopic drainage capability given her history and imaging she is unlikely to improve significantly and should be transferred to a facility that can address her well defined chronic pseudocyst that is causing partial gastric outlet obstruction - Lab Results Lab results reviewed: Yes Fish Bones: 04/15/22 05:33 04/15/22 05:33 - Diagnostic Imaging Results Diagnostic Imaging Results: positive: Final report reviewed, Read independently
[2022-04-15] MEDS: NICOTINE 21 MG PATCH TOP SCH (08:36)
[2022-04-15] MEDS: ENOXAPARIN 40 MG/0.4 ML SYRINGE SUBQ SCH (08:36)
[2022-04-15] MEDS: SENNA 8.6 MG TABLET PO SCH (08:37)
[2022-04-15] MEDS: DOCUSATE SODIUM 250 MG CAPSULE PO SCH (08:37)
[2022-04-15] MEDS: ONDANSETRON ODT 4 MG TABLET TL PRN ×2 (09:32→16:38)
[2022-04-15] MEDS ORDERED: MIDAZOLAM 2 MG/2 ML VIAL ONE (10:23)
[2022-04-15] MEDS ORDERED: KETAMINE 500 MG/10 ML VIAL ONE (10:23)
[2022-04-15] MEDS ORDERED: fentaNYL 100 MCG/2 ML VIAL ONE (10:23)
[2022-04-15] MEDS ORDERED: SODIUM CHLORIDE 0.9% 10 ML VIAL IVP ONE (10:24)
[2022-04-15] MEDS: SODIUM CHLORIDE FLUSH 0.9% 10 ML SYRINGE IVP PRN (12:05)
--- NOTE | 2022-04-15 12:05 | ANESTHESIA PROCEDURE NOTE ---
Anesth Central Line Template - Central Line Central Line Preparation: Consent Obtained, Time out completed, Ultrasound used, Sterile prep and drape Central line location: Right Basilic Central line type: PICC Double Lumen (5Fr) Central line catheter tip site resides: Superior vena cava (SVC) Central line aftercare: Secured, Placement confirmed, No complications, Pt tolerated well Other Info/Details: While consenting patient,she was tearful and anxious about placement of PICC line. Discussed with Dr. Reese. It was deemed reasonable to provide some anxiolysis during procedure. See anesthesia record for medications given. Right arm prepped with chlorohexadine. Full sterile gown, gloves, mask and drape utilized. The right arm was localized with 4ml of 1% lidocaine and the right basilic vein was accessed using ultrasound to guide needle. Wire advanced with ease. A 5FR dual lumen catheter, trimmed to 43 cm was inserted. P-wave analysis indicated tip was in good position in the SVC (see anesthesia record). 4cm of catheter exposed. Both ports aspirate blood and flush with ease. Line secured. Patient tolerated well.
[2022-04-15] MEDS: ESCITALOPRAM 10 MG TABLET PO SCH (12:06)
[2022-04-15 14:55] LABS: B. PARAPERTUSSIS- RESP PCR PAN NOT DETECTED; B. PERTUSSIS- RESP PCR PANEL NOT DETECTED; C. PNEUMONIAE- RESP PCR PANEL NOT DETECTED; CORONAVIRUS 229E-RESP PCR NOT DETECTED; CORONAVIRUS HKU1-RESP PCR NOT DETECTED; CORONAVIRUS NL63-RESP PCR NOT DETECTED; CORONAVIRUS OC43-RESP PCR NOT DETECTED; HUMAN METAPNEUMOVIRUS NOT DETECTED; INFLUENZA A- RESP PCR PANEL NOT DETECTED; M. PNEUMONIAE- RESP PCR PANEL NOT DETECTED; PARAINFLUENZA VIRUS 3 NOT DETECTED; PARAINFLUENZA VIRUS 4 NOT DETECTED; RHINOVIRUS/ENTEROVIRUS NOT DETECTED; RSV- RESP PCR PANEL NOT DETECTED; SARS-CoV-2 -RESP PCR PANEL NOT DETECTED
[2022-04-15 14:56] LABS: INFLUENZA B - RESP PCR PANEL NOT DETECTED; PARAINFLUENZA VIRUS 1 NOT DETECTED; PARAINFLUENZA VIRUS 2 NOT DETECTED
[2022-04-15] MEDS ORDERED: TPN (CLINIMIX E 5/15) 2,000 ML with MULTIVITAMIN 10 ML, TRACE ELEMENTS 1 ML, SODIUM CHL... IV SCH ×5 (19:00)
[2022-04-15] MEDS: FAT EMULSION 20% 250 ML IV SCH (19:05)
[2022-04-15] MEDS: ZOLPIDEM 5 MG TABLET PO PRN (23:28)
[2022-04-16] MEDS: HYDROmorphone 2 MG/ML VIAL IVP PRN ×5 (05:04→16:28)
[2022-04-16 05:10] LABS: BASOPHILS # (AUTO) 0.1 10^3/uL (0.0-0.1); BASOPHILS % (AUTO) 0.5 %; EOSINOPHILS # (AUTO) 0.3 10^3/uL (0.0-0.7); EOSINOPHILS % (AUTO) 2.7 %; HCT - HEMATOCRIT 34.6 % (37.0-47.0); HGB - HEMOGLOBIN 11.3 g/dL (12.0-16.0); LYMPHOCYTES # (AUTO) 1.4 10^3/uL (1.5-3.5); LYMPHOCYTES % (AUTO) 11.7 %; MEAN CORPUSCULAR HEMOGLOBIN 36.1 pg (27.0-31.0); MEAN CORPUSCULAR HGB CONC 32.7 g/dL (32.0-36.0); MEAN CORPUSCULAR VOLUME 110.5 fL (81.0-99.0); MEAN PLATELET VOLUME 9.8 fL (7.9-10.8); MONOCYTES % (AUTO) 8.3 %; NEUTROPHILS # (AUTO) 8.9 10^3/uL (1.5-6.6); NEUTROPHILS % (AUTO) 75.7 %; PLT - PLATELET COUNT 424 10^3/uL (130-450); RED BLOOD COUNT 3.13 10^6/uL (4.20-5.40); RED CELL DISTRIBUTION WIDTH 15.2 % (12.0-15.0); WHITE BLOOD COUNT 11.8 x10^3/uL (4.8-10.8)
[2022-04-16 05:13] LABS: SLIDE REVIEW? Indicated
[2022-04-16 05:25] LABS: PLATELET ESTIMATE, MANUAL NORMAL (130-450,000) (NORMAL); PLATELET MORPHOLOGY NORMAL APPEARANCE (NORMAL); RBC MORPHOLOGY (MULTIPLE) 1+ MACROCYTOSIS (NORMAL); WBC MORPHOLOGY (MULTIPLE) NORMAL APPEARANCE (NORMAL)
[2022-04-16 05:37] LABS: ALBUMIN 2.4 g/dL (3.2-5.5); ALBUMIN/GLOBULIN RATIO 0.6 (1.0-2.2); BILIRUBIN,TOTAL 0.3 mg/dL (0.2-1.0); CALCIUM 8.9 mg/dL (8.5-10.3); CREATININE 0.6 mg/dL (0.4-1.0); CRP - C-REACTIVE PROTEIN 7.1 mg/dL (0-1.0); MAGNESIUM 2.1 mg/dL (1.7-2.8); PHOSPHORUS 4.8 mg/dL (2.5-4.6); POTASSIUM 4.3 mmol/L (3.5-5.0); TOTAL PROTEIN 6.2 g/dL (6.7-8.2)
[2022-04-16] MEDS: SODIUM CHLORIDE FLUSH 0.9% 10 ML SYRINGE IVP PRN ×3 (06:16→14:26)
[2022-04-16] MEDS: PANTOPRAZOLE 40 MG VIAL IVP SCH (06:16)
[2022-04-16] MEDS: ONDANSETRON ODT 4 MG TABLET TL PRN (08:03)
[2022-04-16] MEDS: oxyCODONE 5 MG TABLET PO PRN (08:03)
[2022-04-16] MEDS: DOCUSATE SODIUM 250 MG CAPSULE PO SCH (08:03)
[2022-04-16] MEDS: ESCITALOPRAM 10 MG TABLET PO SCH (08:03)
[2022-04-16] MEDS: SODIUM CHLORIDE FLUSH 0.9% 10 ML SYRINGE IVP SCH ×2 (08:04→16:30)
[2022-04-16] MEDS: SENNA 8.6 MG TABLET PO SCH (08:04)
[2022-04-16] MEDS: NICOTINE 21 MG PATCH TOP SCH (08:04)
[2022-04-16] MEDS: ENOXAPARIN 40 MG/0.4 ML SYRINGE SUBQ SCH (08:04)
[2022-04-16] MEDS ORDERED: iohexoL-300 100 ML VIAL ONE (08:36)
[2022-04-16] MEDS ORDERED: iohexoL-300 100 ML VIAL IVP ONE (09:14)
--- NOTE | 2022-04-16 09:41 | CT Report ---
PROCEDURE: ABDOMEN/PELVIS W INDICATIONS: Pseudocyst vs pancreatic necrosis CONTRAST: 100ml omni 300 TECHNIQUE: After the administration of IV contrast, 5 mm thick sections acquired from the diaphragms to the symp hysis. 5 mm thick coronal and sagittal reformats were acquired. For radiation dose reduction, the f ollowing was used: automated exposure control, adjustment of mA and/or kV according to patient size. COMPARISON: CT abdomen pelvis 04/13/2022, 04/09/2022 FINDINGS: Image quality: Excellent. ABDOMEN: Lung bases: There is a minimal left effusion unchanged. Previous right effusion has resolved. Heart s ize is normal. Solid organs: Liver and spleen are normal in size and enhancement. Gallbladder demonstrates potenti al sludge without wall thickening. Biliary system is non dilated. No adrenal nodules. Kidneys demon strate normal size and enhancement, without hydronephrosis. As identified on prior exams, there is a low-attenuation focus within the pancreatic head currently m easuring 4.9 x 4.4 cm compared to 4.7 x 4.4 cm. There is diminished peripancreatic fat stranding. No gross ductal dilation. Remaining portions of the pancreas demonstrate normal contrast enhancement. Ov erall previously identified peripancreatic fluid remains less prominent. However, adjacent to the sup erior aspect of the distal pancreatic body, there is a focus of low-attenuation measuring approximate ly 2.1 cm seen on series 3 image 27. This is been present on prior exams although appears slightly mo re focal on current study. Peritoneum and bowel: Bowel loops demonstrate normal wall thickness and caliber. No free fluid or a ir. Nodes and vessels: No retroperitoneal or mesenteric adenopathy by size criteria. Aorta and inferior vena cava are normal in size. Miscellaneous: Fat-containing ventral hernia. PELVIS: Genitourinary: Bladder wall thickness is normal. Miscellaneous: No inguinal hernias or adenopathy. Bones: No suspicious bony lesions. No vertebral body compression fractures. IMPRESSION: Similar versus minimal interval increase in size of low-attenuation mass within the pancreatic head a ccounting for differences in manual measuring technique. As previously identified, this is suggestive of a focal area of necrosis or pseudocyst. Remaining portions of the pancreas demonstrate normal enh ancement without evidence of necrosis. Interval decrease of peripancreatic inflammatory change. Slight more focal appearance of low attenuation suggestive of fluid along the superior margin of the pancreatic body. This could represent a developing pseudocyst. Interval resolution of right pleural effusion with persistent minimal left effusion. Reviewed by: Rocio Perry MD on 04/16/2022 9:40 AM PDT Approved by: Rocio Perry MD on 04/16/2022 9:40 AM PDT Station ID: [id number]
[2022-04-16 11:25] LABS: INR 1.1 (0.8-1.2); PT - PROTHROMBIN TIME 12.8 secs (9.9-12.6)
--- NOTE | 2022-04-16 13:47 | Discharge Plan ---
Discharge Plan Problem Reviewed?: Yes Disposition: 02 Transfer Acute Care Hosp Condition: Stable No Smoking: If you smoke, Please STOP! Call for help.
--- NOTE | 2022-04-16 13:53 | DISCHARGE SUMMARY ---
Discharge Summary Admit Date: 04/09/22 Discharge Date: 04/16/22 Discharging Provider: Dr Deborah Ortiz Primary Care Provider: LEIA Leblanc Code Status: Attempt Resuscitation Condition at Discharge: Serious Discharge Disposition: 02 Transfer Acute Care Hosp Discharge Facility Name: [facility] Admission Diagnoses: (1) Recurrent pancreatitis (2) Intractable abdominal pain (3) Nausea and vomiting (4) Flank pain (5) Hypokalemia - HPI History of Present Illness: From the admission H&P of Dr Mamie Reese: The patient is presenting to the emergency room again because of abdominal pain. She was seen in the emergency room for the same abdominal pain yesterday, treated for pancreatitis and alcohol withdrawal, and now returns because she says the medications are not working. She has nonstop nausea and vomiting. The vomiting is not producing anything and she just has dry heaving. This will be her fourth or fifth admission this year for alcoholic pancreatitis. She denies drinking alcohol on some of her admissions but with this admission does admit that she was drinking in between discharge and now. She drank 2 small drinks on April 07. But since discharge from the last time to now visit the only alcoholic drink she had. She said that her diet was stable, she was taking her Creon. No high fat. Small meals. No alcohol until April 07. On April 05 she had urgency, frequency, dysuria. That started abdominal pain, nausea. By the she had dry heaves and could not keep anything down. She seemed to improve on the and that is when she had 2 small drinks when she was out with family. But then the abdominal pain started, and the dry heaves. Pain is epigastric, left upper quadrant and described as a constant burning ache occasionally accompanied by severe sharp stabbing that is fleeting. If she takes a deep breath or coughs it is worse. She is still having flatus, but is not producing much stool because she is not eating very much. She has had nothing to eat for about 2 days and had decreased p.o. intake over the last few days. In addition to the abdominal pain she has bilateral flank pain. All of this is caused her to have hiccups. And she is tearful when she states that the hiccups are sheer agony because every time it happens, the abdominal pain and flank pain is agonizing. She denies fever, chills, cough. There is no bloody emesis, no bloody stool. No dark tarry stools. In the emergency room temperature is 37. Heart rate is tachycardic at 101 and 111. Blood pressure is stable at 119 systolic or 146 systolic. Respirations are 18. Unlabored. She is 98 to 100% on room air. The emergency room provider described seeing her several times over the course of her ED visit. Each time she was sitting up in bed with dry heaves in the emesis bag held up to her face. No intervention on his part which included antiemetics and pain medicines or IV fluids resulted in improvement. Mucous membranes are moist. She is tachycardic. Lungs are clear. She is markedly tender in the epigastric to ri ght upper quadrant area with local guarding and percussion and tenderness. Lower abdomen is nontender. She has diminished bowel sounds but they are present. White cell count is 8.3. Hemoglobin 13.3. MCV 108. Platelets 152. Sodium 132. Potassium 3.1. BUN and creatinine normal. Random glucose 138. ALT is 104. Lipase 414. Urine is dark yellow with positive nitrites, negative leukocyte Estrace. She has squamous cells and bacteria. Culture will not be done. She had a CT of abdomen and pelvis in September, and 2 in November of this year. 1 was not done with this stay. Her gallbladder has a focus of low-attenuation within the uncinate process. I believe this is a typo error and they may be talking about her pancreas. A fat-containing ventral hernia. She is now admitted to the hospital for intractable nausea vomiting due to abdominal pain which is due to probable chronic low-grade pancreatitis. She has done this before so she knows she is can be put on n.p.o. except for ice chips. Again she is just tearful. She is still miserable with having to live through this all over again. She asked if we could please let her have popsicles in addition to the ice chips. She previously drank alcohol on a consistent basis but now barely has any. She smokes a couple cigarettes a day and has been doing so for the past 16 years. She lives with her daughter and with her mother. She works full-time. - HOSPITAL COURSE Hospital Course: (1) Chronic recurrent pancreatitis This is her fourth admission in approximately a year and a half. She initially denied alcohol abuse but unfortunately has confessed that that is a definitely a problem. Mom validates that and says that the patient is getting worse and has even been drinking on the job. We have made referrals to [facility] in [place] for when the patient leaves the hospital. The patient was here 7 days with better control of her pain on Dilaudid, but she was unable to keep any food down. She had a PICC line placed and PPN then TPN was ordered. CT was done (see #2),. General surgery felt that unless that pseudocyst is drained, it will continue to give her gastric outlet obstruction at the level of the duodenum. Gen surg recommended transfer to higher level of care. Many larger facilities were contacted, and all were at full capacity. She was eventually accepted by and was transferred there by ambulance in stable condition. (2) Intractable abdominal pain due to pancreatic pseudocyst Due to recurrent pancreatitis. She was also having flank pain. This was a new symptom. We obtained a CT of abdomen and pelvis which showed persistent thick- walled peripherally enhancing collection within the pancreatic head and uncinate process measuring 5.4 x 4.7 in transverse dimension. It is increased in size from 4.9 by 4.5 previously. Findings were consistent with walled off necrosis. Peripancreatic fat stranding and fluid are demonstrated and are consistent with acute pancreatitis. No hydronephrosis, kidneys demonstrate symmetric enhancement bilaterally. No striated nephrogram or perinephric stranding to suggest polynephritis. In the peritoneum there is a small to moderate amount of intraperitoneal free fluid. It is a loculated fluid collection in the left paracolic gutter measuring up to 2.4 x 1.9 which is decreased in size compared to the prior study where it measured 3.0 x 2.4. No free air. General surgery felt that this patient would be better served by interventional radiology or gastroenterology that could possibly drain this cyst (due to its chronicity over the last 4 months) via endoscopic approach. If there is percutaneous drainage, there would be increased risk of fistulization. (3) Alcohol abuse As per Hx. She did admit to restarting alcohol use. (4) Nausea and vomiting Due to recurrent pancreatitis, and a pseudocyst that was giving her a gastric outlet obstruction since it sits on her duodenum. She got antiemetics, IV fluids, PPN changed to TPN. (5) Flank pain Urinalysis has a lot of squamous cells, no culture will be submitted. The CT of abdomen and pelvis showed no evidence of cystitis or pyelonephritis (6) Hypokalemia Supplemented with IV KCl. - ALLERGIES Allergies/Adverse Reactions: Allergies Allergy/AdvReac Type Severity Reaction Status Date / Time No Known Drug Allergies Allergy Verified 04/09/22 10:09 - MEDICATIONS Home Medications: Ambulatory Orders Medication Instructions Recorded Confirmed Pantoprazole [Protonix] 40 mg PO DAILY 30 Days #30 tablet 03/13/22 04/09/22 HYDROmorphone [Dilaudid] 2 mg PO Q6H PRN #20 tablet 04/08/22 04/09/22 LORazepam [Ativan] 1 mg PO Q6H PRN #15 tablet 04/08/22 04/09/22 Lipase/Protease/Amylase [Creon Dr 24,000 unit PO TIDWM 04/08/22 04/09/22 24,000 Unit Capsule] Ondansetron Odt [Zofran] 4 mg TL Q6H PRN #15 tablet 04/08/22 04/09/22 Acetaminophen [Tylenol] 650 mg PO Q6H PRN 04/09/22 04/09/22 Loratadine [Claritin] 10 mg PO DAILY PRN 04/09/22 04/09/22 Sucralfate [Carafate] 1 gm PO QPM 04/09/22 04/09/22 - PHYSICAL EXAM AT DISCHARGE General Appearance: positive: No acute distress, Alert Eyes Bilateral: positive: Normal inspection, EOMI ENT: positive: ENT inspection nml, No signs of dehydration Neck: positive: Nml inspection, No JVD Respiratory: positive: No respiratory distress, Breath sounds nml Cardiovascular: positive: Regular rate & rhythm, No murmur Abdomen: positive: Other (Soft, mildly distended, non-tender to light touch, normal bowel sounds.) Skin: positive: Warm, Dry Extremities: positive: Non-tender, No pedal edema Neurologic/Psychiatric: positive: Oriented x3, Motor nml (No tremor) - LABS Result Diagrams: 04/16/22 04:50 04/16/22 04:50 - DIAGNOSTIC IMAGING Diagnostic Imaging Results: Final report reviewed - FOLLOW UP Follow Up: This will be determined after her hospitalization at [facility]. - TIME SPENT Time Spent in Discharge (Minutes): 45
--- NOTE | 2022-04-16 14:53 | PROVIDER PROGRESS NOTE ---
Subjective - Subjective Pt reports feeling: Improved (waxing and waning pain) Objective - Vital Signs/Intake & Output Reviewed Vital Signs: Yes Vital Signs: Vital Signs x48h Temp Pulse Resp BP Pulse Ox 04/16/22 07:47 36.6 C 85 18 129/90 H 97 Intake & Output: Intake & Output 04/13/22 04/14/22 04/15/22 04/16/22 23:59 23:59 23:59 23:59 Intake Total 1060 5802 3821 800.833 Output Total 620 1000 2000 800 Balance 440 4802 1821 0.833 - Objective General Appearance: positive: No acute distress, Alert Eyes Bilateral: positive: PERRL, EOMI, No scleral icterus Respiratory: positive: No respiratory distress Abdomen: positive: Other (mild tenderness, benign abdomen, non distended) - Lab Results Fish Bones: 04/16/22 04:50 04/16/22 04:50 Other Labs: Lab Results x24hrs 04/16/22 04/16/22 04/16/22 Range/Units 11:10 04:50 04:50 WBC 11.8 H (4.8-10.8) x10^3/uL RBC 3.13 L (4.20-5.40) 10^6/uL Hgb 11.3 L (12.0-16.0) g/dL Hct 34.6 L (37.0-47.0) % MCV 110.5 H (81.0-99.0) fL MCH 36.1 H (27.0-31.0) pg MCHC 32.7 (32.0-36.0) g/dL RDW 15.2 H (12.0-15.0) % Plt Count 424 (130-450) 10^3/uL MPV 9.8 (7.9-10.8) fL Neut # (Auto) 8.9 H (1.5-6.6) 10^3/uL Lymph # (Auto) 1.4 L (1.5-3.5) 10^3/uL [place] # (Auto) 1.0 (0.0-1.0) 10^3/uL Eos # (Auto) 0.3 (0.0-0.7) 10^3/uL Baso # (Auto) 0.1 (0.0-0.1) 10^3/uL Absolute Nucleated RBC 0.00 x10^3/uL Nucleated RBC % 0.0 /100WBC Manual Slide Review Indicated WBC Morphology NORMAL APPEARANCE (NORMAL) Platelet Estimate NORMAL (130-450,000) (NORMAL) Platelet Morphology NORMAL APPEARANCE (NORMAL) RBC Morph Micro Appear 1+ MACROCYTOSIS (NORMAL) PT 12.8 H (9.9-12.6) secs INR 1.1 (0.8-1.2) Sodium 134 L (135-145) mmol/L Potassium 4.3 (3.5-5.0) mmol/L Chloride 100 L (101-111) mmol/L Carbon Dioxide 26 (21-32) mmol/L Anion Gap 8.0 (6-13) BUN 7 (6-20) mg/dL Creatinine 0.6 (0.4-1.0) mg/dL Estimated GFR (MDRD) 114 (>89) Glucose 131 H (70-100) mg/dL Calcium 8.9 (8.5-10.3) mg/dL Phosphorus 4.8 H (2.5-4.6) mg/dL Magnesium 2.1 (1.7-2.8) mg/dL Total Bilirubin 0.3 (0.2-1.0) mg/dL AST 41 (10-42) IU/L ALT 39 (10-60) IU/L Alkaline Phosphatase 343 H (42-121) IU/L C-Reactive Protein 7.1 H (0-1.0) mg/dL Total Protein 6.2 L (6.7-8.2) g/dL Albumin 2.4 L (3.2-5.5) g/dL Globulin 3.8 (2.1-4.2) g/dL Albumin/Globulin Ratio 0.6 L (1.0-2.2) Prealbumin 9 L (18-45) mg/dL Triglycerides 180 H ( - 149) mg/dL Nasal Adenovirus (PCR) Nasal B. parapertussis DNA (PCR) Nasal Coronavir 229E PCR Nasal Coronavir HKU1 PCR Nasal Coronavir NL63 PCR Nasal Coronavir OC43 PCR Nasal Enterovir/Rhinovir PCR Nasal Influenza B PCR Nasal Influenza A PCR Nasal Parainfluen 1 PCR Nasal Parainfluen 2 PCR Nasal Parainfluen 3 PCR Nasal Parainfluen 4 PCR Nasal RSV (PCR) Nasal B.pertussis DNA PCR Nasal C.pneumoniae (PCR) Donta Human Metapneumo PCR Nasal M.pneumoniae (PCR) Nasal SARS-CoV-2 (PCR) 04/15/22 Range/Units 13:40 WBC (4.8-10.8) x10^3/uL RBC (4.20-5.40) 10^6/uL Hgb (12.0-16.0) g/dL Hct (37.0-47.0) % MCV (81.0-99.0) fL MCH (27.0-31.0) pg MCHC (32.0-36.0) g/dL RDW (12.0-15.0) % Plt Count (130-450) 10^3/uL MPV (7.9-10.8) fL Neut # (Auto) (1.5-6.6) 10^3/uL Lymph # (Auto) (1.5-3.5) 10^3/uL [place] # (Auto) (0.0-1.0) 10^3/uL Eos # (Auto) (0.0-0.7) 10^3/uL Baso # (Auto) (0.0-0.1) 10^3/uL Absolute Nucleated RBC x10^3/uL Nucleated RBC % /100WBC Manual Slide Review WBC Morphology (NORMAL) Platelet Estimate (NORMAL) Platelet Morphology (NORMAL) RBC Morph Micro Appear (NORMAL) PT (9.9-12.6) secs INR (0.8-1.2) Sodium (135-145) mmol/L Potassium (3.5-5.0) mmol/L Chloride (101-111) mmol/L Carbon Dioxide (21-32) mmol/L Anion Gap (6-13) BUN (6-20) mg/dL Creatinine (0.4-1.0) mg/dL Estimated GFR (MDRD) (>89) Glucose (70-100) mg/dL Calcium (8.5-10.3) mg/dL Phosphorus (2.5-4.6) mg/dL Magnesium (1.7-2.8) mg/dL Total Bilirubin (0.2-1.0) mg/dL AST (10-42) IU/L ALT (10-60) IU/L Alkaline Phosphatase (42-121) IU/L C-Reactive Protein (0-1.0) mg/dL Total Protein (6.7-8.2) g/dL Albumin (3.2-5.5) g/dL Globulin (2.1-4.2) g/dL Albumin/Globulin Ratio (1.0-2.2) Prealbumin (18-45) mg/dL Triglycerides ( - 149) mg/dL Nasal Adenovirus (PCR) NOT DETECTED Nasal B. parapertussis DNA (PCR) NOT DETECTED Nasal Coronavir 229E PCR NOT DETECTED Nasal Coronavir HKU1 PCR NOT DETECTED Nasal Coronavir NL63 PCR NOT DETECTED Nasal Coronavir OC43 PCR NOT DETECTED Nasal Enterovir/Rhinovir PCR NOT DETECTED Nasal Influenza B PCR NOT DETECTED Nasal Influenza A PCR NOT DETECTED Nasal Parainfluen 1 PCR NOT DETECTED Nasal Parainfluen 2 PCR NOT DETECTED Nasal Parainfluen 3 PCR NOT DETECTED Nasal Parainfluen 4 PCR NOT DETECTED Nasal RSV (PCR) NOT DETECTED Nasal B.pertussis DNA PCR NOT DETECTED Nasal C.pneumoniae (PCR) NOT DETECTED Donta Human Metapneumo PCR NOT DETECTED Nasal M.pneumoniae (PCR) NOT DETECTED Nasal SARS-CoV-2 (PCR) NOT DETECTED Assessment/Plan - Problem List (1) Nausea and vomiting Impression: well defined and now chronic pancreatic pseudocyst causing partial gastric outlet obstruction. waxing and waning pancreatitis agree with care and plan [facility] transfer
[2022-04-16 15:46] VITALS: BP 118/77
[2022-04-16] MEDS: LORazepam 1 MG TABLET PO PRN (16:08)
[2022-04-16] MEDS ORDERED: TPN (CLINIMIX E 5/15) 2,000 ML with MULTIVITAMIN 10 ML, TRACE ELEMENTS 1 ML, SODIUM CHL... IV SCH ×5 (19:00)
== END 2022-04-16 16:34 | disposition short-term general hospital (02) | DRG 439 ==
LOC: EDUNIT# → ED 09:57 → MS2 13:18
PROVIDERS: ADMIT Specialist; ATTEND Internal Medicine
PROC: 3E0336Z Introduction of Nutritional Substance into Peripheral Vein, Percutaneous Approach (ICD-10-PCS; 2022-04-12)
PROC: 02HV33Z Insertion of Infusion Device into Superior Vena Cava, Percutaneous Approach (ICD-10-PCS; principal; 2022-04-15)
DX: K85.21 Alcohol induced acute pancreatitis with uninfected necrosis (principal); K31.1 Adult hypertrophic pyloric stenosis; K86.3 Pseudocyst of pancreas; F10.10 Alcohol abuse, uncomplicated; E87.6 Hypokalemia; F17.210 Nicotine dependence, cigarettes, uncomplicated; R06.6 Hiccough; R00.0 Tachycardia, unspecified; F32.A Depression, unspecified; F41.9 Anxiety disorder, unspecified; K21.9 Gastro-esophageal reflux disease without esophagitis; Z20.822 Contact with and (suspected) exposure to COVID-19; R11.14 Bilious vomiting
CPT/HCPCS: 36415; 74177; 80053; 80306; 80320; 81001; 81025; 82746; 83690; 83735; 84100; 84134; 84478; 85025; 85610; 86140; 87633; 96374; 96375; 99282; 99285; A9270; C1751; J1170; J1650; J3411; J3490; J8499; Q0162; Q9967; 81003; 87086

== ENCOUNTER 2022-04-16 16:36 | Outpatient (CLI) | payer MEDICAID | END 2022-04-16 16:37 | disposition short-term general hospital (02) | LOC: EMS 16:36 | PROVIDERS: ATTEND Internal Medicine | DX: K86.2 Cyst of pancreas (principal); K85.90 Acute pancreatitis without necrosis or infection, unspecified | CPT/HCPCS: A0425; A0426; A0999 ==

== ENCOUNTER 2022-05-02 07:45 | Outpatient (CLI) | payer MEDICAID | END 2022-05-02 23:59 | disposition critical access hospital (66) | LOC: EMS 07:45 | DX: R10.811 Right upper quadrant abdominal tenderness (principal); R10.812 Left upper quadrant abdominal tenderness; R10.13 Epigastric pain; R11.0 Nausea; R19.7 Diarrhea, unspecified | CPT/HCPCS: A0425; A0427; A0999 ==

== ENCOUNTER 2022-05-02 08:07 | Emergency (ER) | payer MEDICAID ==
[2022-05-02] MEDS ORDERED: ONDANSETRON 4 MG/2 ML VIAL IVP STA (08:18)
[2022-05-02] MEDS ORDERED: SODIUM CHLORIDE 0.9% 1,000 ML IV STA ×3 (08:18→15:54)
[2022-05-02] MEDS ORDERED: MORPHINE 2 MG/ML CARPUJECT IVP STA (08:18)
[2022-05-02 08:34] LABS: BASOPHILS # (AUTO) 0.1 10^3/uL (0.0-0.1); BASOPHILS % (AUTO) 0.4 %; EOSINOPHILS # (AUTO) 0.1 10^3/uL (0.0-0.7); EOSINOPHILS % (AUTO) 1.2 %; LYMPHOCYTES # (AUTO) 1.5 10^3/uL (1.5-3.5); LYMPHOCYTES % (AUTO) 13.2 %; MEAN CORPUSCULAR HEMOGLOBIN 34.3 pg (27.0-31.0); MEAN CORPUSCULAR HGB CONC 32.5 g/dL (32.0-36.0); MEAN CORPUSCULAR VOLUME 105.5 fL (81.0-99.0); MEAN PLATELET VOLUME 10.8 fL (7.9-10.8); MONOCYTES # (AUTO) 0.5 10^3/uL (0.0-1.0); MONOCYTES % (AUTO) 4.7 %; NEUTROPHILS # (AUTO) 9.3 10^3/uL (1.5-6.6); NEUTROPHILS % (AUTO) 80.2 %; PLT - PLATELET COUNT 365 10^3/uL (130-450); RED BLOOD COUNT 3.79 10^6/uL (4.20-5.40); RED CELL DISTRIBUTION WIDTH 13.8 % (12.0-15.0); WHITE BLOOD COUNT 11.6 x10^3/uL (4.8-10.8)
--- NOTE | 2022-05-02 08:38 | ED Physician Documentation ---
PD HPI ABD PAIN - Stated complaint Stated Complaint: UPPER ABD PX/NVD - Chief complaint Chief Complaint: Abd Pain - History obtained from History obtained from: Patient, Other (Prior records) - Additional information Additional information: Patient is a 36-year-old female with a history of alcohol use disorder and recurrent pancreatitis presenting for evaluation of upper abdominal pain that worsened this morning with nausea and vomiting. Patient was recently hospitalized at [facility] at the end of March and transferred to the [facility] on April 16 for pancreatitis with pseudocyst. She was discharged from the [facility] on April 25. They did not drain at this pseudocyst and they felt the fluid collection was stable from prior imaging over the summer.They advised that the fluid collections can take months to resolve and do not require intervention nor cause patient significant symptoms.They felt there was increased evidence of acute pancreatitis which was most likely the cause of her abdominal pain as well as excess gas noted and constipation which also could be contributing to her symptoms. Her diet was advanced And she was treated for pain control with the bowel regiment. She reports still taking the oxycodone which was helping her up until this morning as well as ODT Zofran.She had a small bowel movement this morning. Her last alcohol intake was 1 month ago. Review of Systems Constitutional: denies: Fever Nose: denies: Congestion Throat: denies: Sore throat Cardiac: denies: Chest pain / pressure Respiratory: denies: Dyspnea GI: reports: Abdominal Pain, Nausea, Vomiting. 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 HEENT: Tonsil/Adenoidectomy - Present Medications Home Medications: Ambulatory Orders Medication Instructions Recorded Confirmed Pantoprazole [Protonix] 40 mg PO DAILY 30 Days #30 tablet 03/13/22 04/09/22 HYDROmorphone [Dilaudid] 2 mg PO Q6H PRN #20 tablet 04/08/22 04/09/22 LORazepam [Ativan] 1 mg PO Q6H PRN #15 tablet 04/08/22 04/09/22 Lipase/Protease/Amylase [Creon Dr 24,000 unit PO TIDWM 04/08/22 04/09/22 24,000 Unit Capsule] Ondansetron Odt [Zofran] 4 mg TL Q6H PRN #15 tablet 04/08/22 04/09/22 Acetaminophen [Tylenol] 650 mg PO Q6H PRN 04/09/22 04/09/22 Loratadine [Claritin] 10 mg PO DAILY PRN 04/09/22 04/09/22 Sucralfate [Carafate] 1 gm PO QPM 04/09/22 04/09/22 - Allergies Allergies/Adverse Reactions: Allergies Allergy/AdvReac Type Severity Reaction Status Date / Time No Known Drug Allergies Allergy Verified 04/09/22 10:09 - Social History Does the pt smoke?: Yes Smoking Status: Current every day smoker Does the pt drink ETOH?: Yes Does the pt have substance abuse?: Yes - Immunizations Immunizations are current?: Yes - POLST Patient has POLST: No POLST Status: Full Code PD ED PE NORMAL - General General: Alert and oriented X 3, Well developed/nourished, Other (Mild distress, dry heaving) - HEENT HEENT: Atraumatic - Neck Neck: Supple, no meningeal sign - Cardiac Cardiac: RRR, Strong equal pulses - Respiratory Respiratory: No respiratory distress, Clear bilaterally - Abdomen Abdomen: Normal bowel sounds, Soft, Non distended, Other (Epigastric And left upper quadrant tenderness to palpation; No rebound, no guarding) - Derm Derm: Warm and dry - Extremities Extremities: No edema - Neuro Neuro: Normal speech Results - Vitals Vitals: Vital Signs - 24 hr 05/02/22 05/02/22 05/02/22 08:16 08:57 09:32 Temperature 36.8 C Heart Rate 102 H 98 93 Respiratory 18 18 14 Rate Blood Pressure 132/103 H 130/91 H 167/137 H O2 Saturation 100 100 100 05/02/22 05/02/22 05/02/22 10:05 10:27 11:00 Temperature Heart Rate 81 89 93 Respiratory 13 17 21 Rate Blood Pressure 118/84 H 118/84 H 118/84 H O2 Saturation 97 100 97 05/02/22 05/02/22 05/02/22 13:00 13:54 15:00 Temperature Heart Rate 88 90 93 Respiratory 15 16 16 Rate Blood Pressure 129/86 H 128/85 H 113/78 O2 Saturation 99 100 97 05/02/22 05/02/22 15:51 16:00 Temperature Heart Rate 87 85 Respiratory 14 14 Rate Blood Pressure 124/81 H 124/80 O2 Saturation 96 95 Oxygen O2 Source Room air - EKG (time done) 0852 Rate: Rate (enter#) (98) Rhythm: NSR Intervals: Prolonged QT (QTC 492) Ischemia: No: ST elevation c/w ischemia - Labs Labs: Laboratory Tests 05/02/22 05/02/22 05/02/22 08:27 08:27 11:00 WBC 11.6 H RBC 3.79 L Hgb 13.0 Hct 40.0 MCV 105.5 H MCH 34.3 H MCHC 32.5 RDW 13.8 Plt Count 365 MPV 10.8 Neut # (Auto) 9.3 H Lymph # (Auto) 1.5 [place] # (Auto) 0.5 Eos # (Auto) 0.1 Baso # (Auto) 0.1 Absolute Nucleated RBC 0.00 Nucleated RBC % 0.0 Sodium 140 Potassium 4.0 Chloride 108 Carbon Dioxide 21 Anion Gap 11.0 BUN 7 Creatinine 0.6 Estimated GFR (MDRD) 114 Glucose 136 H Calcium 9.3 Magnesium 1.3 L Total Bilirubin 0.2 AST 29 ALT 27 Alkaline Phosphatase 104 Total Protein 7.2 Albumin 3.8 Globulin 3.4 Albumin/Globulin Ratio 1.1 Lipase 840 H Urine Color Urine Clarity Urine pH Ur Specific [place] Urine Protein Urine Glucose (UA) Urine Ketones Urine Occult Blood Urine Nitrite Urine Bilirubin Urine Urobilinogen Ur Leukocyte Esterase Urine RBC Urine WBC Ur Squamous Epith Cells Urine Bacteria Ur Microscopic Review Urine Culture Comments Urine HCG, Qual Urine Opiates Screen Ur Oxycodone Screen Urine Methadone Screen Ur Propoxyphene Screen Ur Barbiturates Screen Ur Tricyclics Screen Ur Phencyclidine Scrn Ur Amphetamine Screen U Methamphetamines Scrn U Benzodiazepines Scrn Urine Cocaine Screen U Cannabinoids Screen SARS-CoV-2 (PCR) NOT DETECTED 05/02/22 05/02/22 11:55 14:55 WBC RBC Hgb 11.5 L Hct 36.2 L MCV MCH MCHC RDW Plt Count MPV Neut # (Auto) Lymph # (Auto) [place] # (Auto) Eos # (Auto) Baso # (Auto) Absolute Nucleated RBC Nucleated RBC % Sodium Potassium Chloride Carbon Dioxide Anion Gap BUN Creatinine Estimated GFR (MDRD) Glucose Calcium Magnesium Total Bilirubin AST ALT Alkaline Phosphatase Total Protein Albumin Globulin Albumin/Globulin Ratio Lipase Urine Color YELLOW Urine Clarity SL. CLOUDY Urine pH 6.0 Ur Specific [place] 1.025 Urine Protein NEGATIVE Urine Glucose (UA) NEGATIVE Urine Ketones NEGATIVE Urine Occult Blood NEGATIVE Urine Nitrite POSITIVE H Urine Bilirubin NEGATIVE Urine Urobilinogen 0.2 (NORMAL) Ur Leukocyte Esterase NEGATIVE Urine RBC 0-5 Urine WBC 0-3 Ur Squamous Epith Cells MANY Squamous H Urine Bacteria Moderate H Ur Microscopic Review INDICATED Urine Culture Comments NOT INDICATED Urine HCG, Qual NEGATIVE Urine Opiates Screen POSITIVE H Ur Oxycodone Screen POSITIVE H Urine Methadone Screen NEGATIVE Ur Propoxyphene Screen NEGATIVE Ur Barbiturates Screen NEGATIVE Ur Tricyclics Screen NEGATIVE Ur Phencyclidine Scrn NEGATIVE Ur Amphetamine Screen NEGATIVE U Methamphetamines Scrn NEGATIVE U Benzodiazepines Scrn NEGATIVE Urine Cocaine Screen NEGATIVE U Cannabinoids Screen POSITIVE H SARS-CoV-2 (PCR) PD MEDICAL DECISION MAKING - ED course Complexity details: reviewed results, re-evaluated patient, d/w patient ED course: Notified by hydro plant technician that we are out of IV contrast Unexpectedly and that they are expecting more doses to show up later this morning but currently there is no IV contrast available. Patient will not tolerate p.o. contrast. CT scan therefore will be without contrast. 1021 - D/W Dr. Fernandez (I was speaking to Dr. Fernandez regarding another patient and also requested to speak about this patient although her CT Is not yet read by radiology). Dr. Fernandez did review her images through PACS. Reviewed patient's history and including recent transfer to the [facility] where her pseudocyst was not drained and she did not have intervention done. States that if her pseudocyst has not significantly increased and there are no signs that it is compressing her pancreatic duct then she could potentially stay here at [facility]. 1131 - Reviewed CT results with Dr. Fernandez. Due to increased size in Pancreatic mass, she is recommending consultation with [facility] as this is the reason she was transferred there previously and we are not able to offer any interventions or treatment. IMPRESSION: Interval increase in size of low-attenuation mass within the pancreatic head with overall appearance demonstrating more isodensity suggestive of thickened, complex phlegmonous material rather than serous fluid. 1329 - D/W Dr. Tovar (Triage hospitalist At [facility]). He will speak to gastroenterology. 1450 - D/W Dr. Tovar. He had spoken to the GI service. They are concerned that she could possibly have a bleeding pseudoaneurysm and request a CT angio of her abdomen and pelvis. They also recommend repeating her H&H. She has been accepted To Located within [facility] but They do have a severe bed shortage and it is unclear when a bed will become available. Patient is updated. 1639 - I have updated the [facility] transfer center with patient's CT angio results and have requested the images to be pushed to them. I have also updated regarding her most recent H&H. A transfer station operator will pass this on to the hospitalist And they will reach back out to us if this changes the current plan. 1710 - I discussed the case with the current triage hospitalist (Dr. King) And updated regards the new CT scan. He will reach back out to the GI team to see if there are any new recommendations or changes to the treatment plan. 1724 - D/W Dr. King who has spoken to Dr. Tabor (Interventional GI). Although there is no Active extravasation he does feel that patient has likely bleed into her pseudocyst and still recommends patient be transferred for further evaluation. Patient remains on their waiting list pending an available bed. 1800 - Pt to be boarding in the ED pending bed availability at [facility]. She will be signed out at shift change. Departure - Departure Disposition: 02 Transfer Acute Care Hosp Clinical Impression: Recurrent pancreatitis, Pancreatic pseudocyst/cyst
[2022-05-02 09:07] LABS: ALBUMIN 3.8 g/dL (3.2-5.5); ALBUMIN/GLOBULIN RATIO 1.1 (1.0-2.2); BILIRUBIN,TOTAL 0.2 mg/dL (0.2-1.0); CALCIUM 9.3 mg/dL (8.5-10.3); CREATININE 0.6 mg/dL (0.4-1.0); MAGNESIUM 1.3 mg/dL (1.7-2.8); TOTAL PROTEIN 7.2 g/dL (6.7-8.2)
[2022-05-02] MEDS ORDERED: HYDROmorphone 1 MG/ML CARPUJECT IVP STA ×4 (09:23→17:52)
[2022-05-02] MEDS ORDERED: DROPERIDOL 5 MG/2 ML VIAL IVP STA (10:03)
[2022-05-02] MEDS ORDERED: MAGNESIUM SULFATE 2 GRAM 2 GM/50 ML BAG IV ONE (10:24)
--- NOTE | 2022-05-02 11:05 | CT Report ---
PROCEDURE: ABDOMEN/PELVIS WO INDICATIONS: pancreatitis; TECHNIQUE: Noncontrast 5 mm thick sections acquired from the diaphragms to the symphysis. 5 mm coronal and sagi ttal reformats were then performed. For radiation dose reduction, the following was used: automated exposure control, adjustment of mA and/or kV according to patient size. COMPARISON: CT abdomen and pelvis 04/16/2022 FINDINGS: Image quality: Excellent. ABDOMEN: Lung bases: Lung bases are clear. Heart size is normal. Solid organs: Liver and spleen are normal in size. It is noted that the hepatic dome is not include d within the [id number] and cannot be evaluated. Gallbladder is unremarkable the previously identi fied low-attenuation mass within the pancreatic head has increased in size measuring approximately 6. 0 x 6.4 cm compared to 4.7 x 5.1 cm. It has become more isodense compared to prior exam at which time it was predominantly hypodense. There is slight appearance of increased peripancreatic stranding. Pr evious areas of peripancreatic fluid otherwise have decreased in size. No adrenal nodules. Kidneys a re normal in size, without hydronephrosis or nephrolithiasis. Peritoneum and bowel: Unenhanced bowel loops demonstrate normal wall thickness and caliber. No free fluid or air. Nodes and vessels: No retroperitoneal or mesenteric adenopathy by size criteria. Aorta and inferior vena cava are normal in caliber. Miscellaneous: Fat-containing ventral hernia is present. PELVIS: Genitourinary: Bladder wall thickness is normal. IUD is present. Miscellaneous: No inguinal hernias or adenopathy. Bones: No suspicious bony lesions. No vertebral body compression fractures. IMPRESSION: Interval increase in size of low-attenuation mass within the pancreatic head with overall appearance demonstrating more isodensity suggestive of thickened, complex phlegmonous material rather than serou s fluid. Reviewed by: Rocio Perry MD on 05/02/2022 11:04 AM PST Approved by: Rocio Perry MD on 05/02/2022 11:04 AM PST Station ID: [id number]
[2022-05-02 12:32] LABS: MUDS CUTOFF CONCENTRATIONS CUTOFF CONC BELOW:
[2022-05-02 12:38] LABS: BILIRUBIN,URINE NEGATIVE (NEGATIVE); GLUCOSE, URINE (UA) NEGATIVE (NEGATIVE); KETONES,URINE (UA) NEGATIVE (NEGATIVE); LEUKOCYTE ESTERASE, URINE NEGATIVE (NEGATIVE); NITRITE,URINE POSITIVE (NEGATIVE); OCCULT BLOOD,URINE NEGATIVE (NEGATIVE); PROTEIN,URINE NEGATIVE (NEGATIVE); UROBILINOGEN,URINE 0.2 (NORMAL) E.U./dL (NORMAL)
[2022-05-02 12:47] LABS: CLARITY,URINE SL. CLOUDY (CLEAR); HCG UR QUAL NEGATIVE
[2022-05-02 13:01] LABS: AMPHETAMINE SCREEN,URINE NEGATIVE (NEGATIVE); BACTERIA,URINE Moderate /HPF (None Seen); BENZODIAZEPINES SCREEN, URINE NEGATIVE (NEGATIVE); COCAINE SCREEN URINE NEGATIVE (NEGATIVE); METHAMPHETAMINES SCREEN, URINE NEGATIVE (NEGATIVE); OPIATE SCREEN, URINE POSITIVE (NEGATIVE); RBC,URINE 0-5 /HPF (0-5); SQUAMOUS EPITHELIAL CELL,UR MANY Squamous (<= Few); THC CANNABINOID SCREEN, URINE POSITIVE (NEGATIVE); TRICYCLIC ANTIDEPRESSANT,URINE NEGATIVE (NEGATIVE); WBC,URINE 0-3 /HPF (0-5)
[2022-05-02 13:02] LABS: BARBITURATE SCREEN,UR NEGATIVE (NEGATIVE); METHADONE SCREEN, URINE NEGATIVE (NEGATIVE); OXYCODONE SCREEN, URINE POSITIVE (NEGATIVE); PROPOXYPHENE SCREEN, URINE NEGATIVE (NEGATIVE)
[2022-05-02] MEDS ORDERED: iohexoL-300 100 ML VIAL ONE (14:51)
[2022-05-02 15:04] LABS: HCT - HEMATOCRIT 36.2 % (37.0-47.0); HGB - HEMOGLOBIN 11.5 g/dL (12.0-16.0)
--- NOTE | 2022-05-02 16:04 | CT Report ---
PROCEDURE: ANGIO ABDOMEN/PELVIS W INDICATIONS: pancreatitis CONTRAST: 100ml Omnipaque 300 TECHNIQUE: After the administration of intravenous contrast, 2.5 mm thick sections acquired from the diaphragm t o the symphysis. 10 mm maximum-intensity projection (MIP) reformats were then acquired. For radiati on dose reduction, the following was used: automated exposure control, adjustment of mA and/or kV ac cording to patient size. COMPARISON: CT abdomen pelvis 05/02/2022 FINDINGS: Image quality: Excellent. Aorta: Aorta is normal in size without evidence of aneurysmal dilation, hemodynamically significant stenosis, vascular occlusion or dissection. Mesenteric arteries: Celiac trunk, superior and inferior mesenteric arteries appear patent. Branch vessels extending from the celiac axis as well as superior mesenteric artery course surrounding the e nlarging pancreatic head mass described below. There is no definitive areas of arterial contrast extr avasation or vascular aneurysm identified. Small foci of internal venous hemorrhage within the mass c ausing appearance of heterogeneous attenuation cannot be definitively excluded. Right pelvic arteries: No areas of hemodynamically significant stenosis, vascular occlusion, aneurys mal dilation or dissection is identified. Left pelvic arteries: No areas of hemodynamically significant stenosis, vascular occlusion, aneurysm al dilation or dissection is identified. Extravascular soft tissues: Lung bases are clear. Heart size is normal. Liver and spleen are holly l in size and enhancement. Gallbladder is unremarkable. Biliary system is non dilated. As identifie d on prior exam, there is an enlarging focus of heterogeneous attenuation within the pancreatic head, at the region of the previously identified more simple cystic focus. It has not changed in size sinc e prior exam of same day . No adrenal nodules. Kidneys are normal in size and enhancement, without hydronephrosis. Non opacified bowel loops are normal in wall thickness and caliber. There is an unchanged soft tissue density adjacent to the left lateral psoas muscle on series 4 image 86. Thi s corresponds to a focus of paracolic gutter pseudocyst identified in 2020. It has been stable in siz e and appearance since 11/16/2021. No retroperitoneal or mesenteric adenopathy. No ventral hernias. I UD is present. No suspicious bony lesions. No vertebral body compression fractures. IMPRESSION: Pancreatic head mass which has shown mild increase in size and heterogeneous appearance compared to 1 06/16/2021. No evidence of arterial vascular hemorrhage, pseudoaneurysm or aneurysm. Areas of venous he morrhage, infection or superimposed inflammation compared to the prior exam on 04/16/2022 cannot be ex cluded. Reviewed by: Rocio Perry MD on 05/02/2022 4:03 PM PST Approved by: Rocio Perry MD on 05/02/2022 4:03 PM PST Station ID: [id number]
[2022-05-02] MEDS ORDERED: HYDROmorphone 1 MG/ML CARPUJECT IVP PRN ×2 (17:33→17:53)
[2022-05-02] MEDS ORDERED: iohexoL-300 100 ML VIAL IVP ONE (18:11)
[2022-05-02] MEDS: HYDROmorphone 1 MG/ML CARPUJECT IVP PRN ×2 (20:54→23:41)
[2022-05-03] MEDS ORDERED: SODIUM CHLORIDE 0.9% 1,000 ML IV STA (00:15)
[2022-05-03] MEDS: ONDANSETRON 4 MG/2 ML VIAL IVP PRN ×3 (01:48→20:57)
[2022-05-03] MEDS: HYDROmorphone 1 MG/ML CARPUJECT IVP PRN ×10 (01:48→23:25)
[2022-05-03 06:12] LABS: BASOPHILS % (AUTO) 0.5 %; HGB - HEMOGLOBIN 10.4 g/dL (12.0-16.0); NEUTROPHILS # (AUTO) 4.5 10^3/uL (1.5-6.6)
[2022-05-03 06:15] LABS: EOSINOPHILS # (AUTO) 0.2 10^3/uL (0.0-0.7); EOSINOPHILS % (AUTO) 2.9 %; HCT - HEMATOCRIT 32.1 % (37.0-47.0); LYMPHOCYTES % (AUTO) 26.9 %; MEAN CORPUSCULAR HGB CONC 32.4 g/dL (32.0-36.0); MEAN CORPUSCULAR VOLUME 108.1 fL (81.0-99.0); MEAN PLATELET VOLUME 10.9 fL (7.9-10.8); MONOCYTES # (AUTO) 0.6 10^3/uL (0.0-1.0); MONOCYTES % (AUTO) 8.3 %; NEUTROPHILS % (AUTO) 61.3 %; PLT - PLATELET COUNT 280 10^3/uL (130-450); RED BLOOD COUNT 2.97 10^6/uL (4.20-5.40); RED CELL DISTRIBUTION WIDTH 14.1 % (12.0-15.0); WHITE BLOOD COUNT 7.3 x10^3/uL (4.8-10.8)
[2022-05-03 06:20] LABS: PT - PROTHROMBIN TIME 11.7 secs (9.9-12.6)
[2022-05-03 06:24] LABS: ALBUMIN 2.9 g/dL (3.2-5.5); ALBUMIN/GLOBULIN RATIO 1.1 (1.0-2.2); BILIRUBIN,TOTAL 0.5 mg/dL (0.2-1.0); CALCIUM 8.2 mg/dL (8.5-10.3); CREATININE 0.5 mg/dL (0.4-1.0); POTASSIUM 3.8 mmol/L (3.5-5.0); TOTAL PROTEIN 5.6 g/dL (6.7-8.2)
[2022-05-03] MEDS ORDERED: LACTATED RINGERS 1,000 ML IV STA (07:58)
--- NOTE | 2022-05-03 13:53 | ED Physician Documentation ---
ED Addendum - Addendum Addendum: 05/03/22 13:51 I talked briefly with the patient. She seems comfortable this morning. She states the pain level is staying at a low level. We can continue with the current pain medication regimen. She is She is feeling less nauseous and feeling that she would be able to tolerate clear liquids. I allowed for sips of water and we can progress to clear liquids as tolerated. The patient's blood tests are showing a considerable decrease in her lipase from 800s to 80. White count remains normal. I believe we can continue the current medication regimen. Advance diet to clear liquids. Repeat labs tomorrow.
[2022-05-03] MEDS ORDERED: NICOTINE 21 MG PATCH TOP STA (21:07)
[2022-05-04] MEDS: HYDROmorphone 1 MG/ML CARPUJECT IVP PRN ×5 (01:26→18:51)
[2022-05-04] MEDS ORDERED: oxyCODONE 5 MG TABLET PO STA (03:42)
[2022-05-04 05:41] LABS: BASOPHILS # (AUTO) 0.1 10^3/uL (0.0-0.1); EOSINOPHILS # (AUTO) 0.3 10^3/uL (0.0-0.7); HCT - HEMATOCRIT 33.8 % (37.0-47.0); HGB - HEMOGLOBIN 10.8 g/dL (12.0-16.0); LYMPHOCYTES # (AUTO) 1.8 10^3/uL (1.5-3.5); LYMPHOCYTES % (AUTO) 28.9 %; MEAN CORPUSCULAR HEMOGLOBIN 34.3 pg (27.0-31.0); MEAN CORPUSCULAR VOLUME 107.3 fL (81.0-99.0); MEAN PLATELET VOLUME 11.1 fL (7.9-10.8); MONOCYTES # (AUTO) 0.6 10^3/uL (0.0-1.0); MONOCYTES % (AUTO) 8.8 %; NEUTROPHILS # (AUTO) 3.5 10^3/uL (1.5-6.6); NEUTROPHILS % (AUTO) 56.1 %; PLT - PLATELET COUNT 270 10^3/uL (130-450); RED BLOOD COUNT 3.15 10^6/uL (4.20-5.40); RED CELL DISTRIBUTION WIDTH 13.7 % (12.0-15.0); WHITE BLOOD COUNT 6.2 x10^3/uL (4.8-10.8)
[2022-05-04 05:55] LABS: ALBUMIN 2.8 g/dL (3.2-5.5); ALKALINE PHOSPHATASE 91 IU/L (42-121); ALT ALANINE AMINOTRANSFERASE 14 IU/L (10-60); AST ASPARTATE AMINOTRANSFERASE 16 IU/L (10-42); BILIRUBIN,TOTAL 0.6 mg/dL (0.2-1.0); BUN - BLOOD UREA NITROGEN < 5 mg/dL (6-20); CALCIUM 8.6 mg/dL (8.5-10.3); CARBON DIOXIDE - CO2 25 mmol/L (21-32); CHLORIDE 103 mmol/L (101-111); CREATININE 0.6 mg/dL (0.4-1.0); GFR - MDRD 114 (>89); GLUCOSE 104 mg/dL (70-100); LIPASE 44 U/L (22-51); POTASSIUM 3.7 mmol/L (3.5-5.0); SODIUM 136 mmol/L (135-145); TOTAL PROTEIN 5.7 g/dL (6.7-8.2)
--- NOTE | 2022-05-04 18:18 | ED Physician Documentation ---
ED Addendum - Addendum Addendum: 05/04/22 18:17 The patient is doing well on current medication. She has had stable controlled pain. Her lipase is improved and she was tolerating clear liquids so advanced to fat-free diet low-fat diet. We are still waiting for transfer.
[2022-05-05] MEDS: HYDROmorphone 1 MG/ML CARPUJECT IVP PRN ×3 (00:19→10:33)
[2022-05-05 05:23] LABS: BASOPHILS % (AUTO) 0.4 %; EOSINOPHILS # (AUTO) 0.3 10^3/uL (0.0-0.7); EOSINOPHILS % (AUTO) 5.7 %; HCT - HEMATOCRIT 33.8 % (37.0-47.0); HGB - HEMOGLOBIN 10.9 g/dL (12.0-16.0); LYMPHOCYTES # (AUTO) 1.8 10^3/uL (1.5-3.5); LYMPHOCYTES % (AUTO) 36.2 %; MEAN CORPUSCULAR HEMOGLOBIN 33.7 pg (27.0-31.0); MEAN CORPUSCULAR HGB CONC 32.2 g/dL (32.0-36.0); MEAN CORPUSCULAR VOLUME 104.6 fL (81.0-99.0); MEAN PLATELET VOLUME 10.8 fL (7.9-10.8); MONOCYTES # (AUTO) 0.5 10^3/uL (0.0-1.0); MONOCYTES % (AUTO) 9.1 %; NEUTROPHILS # (AUTO) 2.5 10^3/uL (1.5-6.6); NEUTROPHILS % (AUTO) 48.4 %; PLT - PLATELET COUNT 280 10^3/uL (130-450); RED BLOOD COUNT 3.23 10^6/uL (4.20-5.40); RED CELL DISTRIBUTION WIDTH 13.5 % (12.0-15.0); WHITE BLOOD COUNT 5.1 x10^3/uL (4.8-10.8)
[2022-05-05 05:35] LABS: ALBUMIN 2.9 g/dL (3.2-5.5); BILIRUBIN,TOTAL 0.6 mg/dL (0.2-1.0); CALCIUM 8.7 mg/dL (8.5-10.3); CREATININE 0.6 mg/dL (0.4-1.0); POTASSIUM 3.5 mmol/L (3.5-5.0); TOTAL PROTEIN 5.8 g/dL (6.7-8.2)
[2022-05-05 10:08] VITALS: BP 129/85
--- NOTE | 2022-05-05 12:09 | ED Physician Documentation ---
ED Addendum - Addendum Addendum: 05/05/22 12:04 The patient is awake alert and conversant. She does not appear uncomfortable. She complains of pain at baseline that she has been having in her upper abdomen and back. She is had a low-fat diet last evening and this morning without any problems. Abdomen is soft with mild tenderness in the epigastric area. No percussion or rebound tenderness. Blood tests are showing a normal white count and a normal lipase in the 40s. I had our community representative contact the transfer center at for a reconsultation with gastroenterology. I updated the on-call field manager with the patient's labs, symptom level and vital signs. The field manager stated the improvement in symptoms and numbers would indicate that there is not any ongoing persistent bleeding or inflammation of concern. No reimaging necessarily at this time. They did not feel the patient still needed to be transferred but instead could be discharged home at this point with pain medication and low-fat to clear liquid diet. The patient has a follow-up in [place] with a field manager on Friday which is in 3 days. She should keep that appointment. She states she does not have pain medicines at home currently or only has 2 or 3 left. I can prescribe her some famotidine twice daily for the next 7 to 10 days. She had been advised not to take her pantoprazole. By the . I will prescribe a short course of oxycodone for her through her follow-up on Friday. She is to return to the ER if worsening again. She states she has not had any alcohol for the last month and intends not to drink. Disposition: The patient is discharged home in stable condition. Diagnoses: 1. Upper abdominal pain, improving 2. Acute pancreatitis, improving 3. History of alcoholism, currently sober x1 month
[2022-05-05] MEDS ORDERED: KETOROLAC 15 MG/ML VIAL IVP STA (12:16)
[2022-05-05] MEDS ORDERED: oxyCODONE 5 MG TABLET PO STA (12:17)
== END 2022-05-05 13:47 | disposition home or self-care (01) ==
LOC: EDUNIT# → ED 08:07
DX: K86.2 Cyst of pancreas (principal); K85.90 Acute pancreatitis without necrosis or infection, unspecified; F10.21 Alcohol dependence, in remission; F17.200 Nicotine dependence, unspecified, uncomplicated; Z20.822 Contact with and (suspected) exposure to COVID-19
CPT/HCPCS: 36415; 74174; 74176; 80053; 80306; 81001; 81025; 83690; 83735; 85014; 85018; 85025; 85610; 87635; 93005; 96365; 96375; 96376; 99284; 99285; A9270; J1170; J7120; Q9967; 81003; 87086

== ENCOUNTER 2022-05-10 20:25 | Outpatient (CLI) | payer MEDICAID | END 2022-05-10 20:26 | disposition critical access hospital (66) | LOC: EMS 20:25 | DX: R10.12 Left upper quadrant pain (principal); M54.50 Low back pain, unspecified; R42 Dizziness and giddiness | CPT/HCPCS: A0425; A0429; A0999 ==

== ENCOUNTER 2022-05-10 20:48 | Observation (INO) | payer MEDICAID ==
[2022-05-10] MEDS ORDERED: HYDROmorphone 1 MG/ML CARPUJECT IVP STA ×2 (21:04→23:01)
[2022-05-10] MEDS ORDERED: ONDANSETRON 4 MG/2 ML VIAL IVP STA (21:04)
[2022-05-10] MEDS ORDERED: SODIUM CHLORIDE 0.9% 1,000 ML IV STA ×2 (21:04→22:21)
[2022-05-10 21:28] LABS: BASOPHILS % (AUTO) 0.4 %; EOSINOPHILS % (AUTO) 0.1 %; HCT - HEMATOCRIT 43.1 % (37.0-47.0); HGB - HEMOGLOBIN 14.6 g/dL (12.0-16.0); LYMPHOCYTES % (AUTO) 17.2 %; MEAN CORPUSCULAR HEMOGLOBIN 33.2 pg (27.0-31.0); MEAN CORPUSCULAR HGB CONC 33.9 g/dL (32.0-36.0); MONOCYTES % (AUTO) 10.1 %; NEUTROPHILS % (AUTO) 71.8 %; PLT - PLATELET COUNT 509 10^3/uL (130-450); RED CELL DISTRIBUTION WIDTH 13.4 % (12.0-15.0); WHITE BLOOD COUNT 15.7 x10^3/uL (4.8-10.8)
[2022-05-10 21:36] LABS: ABNORMAL LYMPHS % (MANUAL) 0 %; BAND NEUTROPHILS % (MANUAL) 0 %
[2022-05-10 21:40] LABS: ALBUMIN 4.4 g/dL (3.2-5.5); ALBUMIN/GLOBULIN RATIO 0.9 (1.0-2.2); ALKALINE PHOSPHATASE 125 IU/L (42-121); ALT ALANINE AMINOTRANSFERASE < 10 IU/L (10-60); AST ASPARTATE AMINOTRANSFERASE 12 IU/L (10-42); BILIRUBIN,TOTAL 0.7 mg/dL (0.2-1.0); BUN - BLOOD UREA NITROGEN 26 mg/dL (6-20); CALCIUM 10.4 mg/dL (8.5-10.3); CARBON DIOXIDE - CO2 26 mmol/L (21-32); CHLORIDE 85 mmol/L (101-111); CREATININE 2.7 mg/dL (0.4-1.0); GFR - MDRD 20 (>89); GLUCOSE 173 mg/dL (70-100); LIPASE 63 U/L (22-51); POTASSIUM 3.2 mmol/L (3.5-5.0); SODIUM 133 mmol/L (135-145); TOTAL PROTEIN 9.3 g/dL (6.7-8.2)
[2022-05-10 21:50] LABS: LYMPHOCYTES # (MANUAL) 2.5 10^3/uL (1.5-3.5); LYMPHOCYTES % (MANUAL) 15 %; MONOCYTES # (MANUAL) 0.8 10^3/uL (0.0-1.0); NEUTROPHILS # (MANUAL) 12.4 10^3/uL (1.5-6.6); REACTIVE LYMPHS % (MANUAL) 1 %
[2022-05-10 21:51] LABS: DIFFERENTIAL COMMENT MANUAL DIFFERENTIAL; PLATELET ESTIMATE, MANUAL INCREASED (>450,000) (NORMAL); PLATELET MORPHOLOGY NORMAL APPEARANCE (NORMAL); RBC MORPHOLOGY (MULTIPLE) NORMAL APPEARANCE (NORMAL)
--- NOTE | 2022-05-10 22:25 | ED Physician Documentation ---
PD HPI ABD PAIN - Stated complaint Stated Complaint: ABD PX - Chief complaint Chief Complaint: Abd Pain - History obtained from History obtained from: Patient - Additional information Additional information: Patient is a 36-year-old female with a history of chronic pancreatitis related to alcohol abuse and known pseudocyst presenting for evaluation of abdominal pain with nausea and vomiting that is been present for 4 days. She has recently been seen in our emergency department a few weeks ago For pancreatitis with concerns for enlarging pseudocyst and plans at that time were to transfer to the [facility]. Due to bed shortage she was in the ER for several days and her symptoms improved and she was able to be discharged.She saw her GI doctor at [facility] 2 days ago who sent her to the [facility] emergency department for evaluation due to epigastric pain. As she had labs and a CT scan done which were normal and was discharged home.Her symptoms have been worsening over the past 2 days. While she was waiting for EMS to arrive she did receive a phone call from the [facility] stating that she had E. coli in her urine. She had not yet been started on any antibiotics. She denies dysuria, hematuria or flank pain.She has not used alcohol in over a month.She reports sticking to a liquid and Jell-O diet at home. Review of Systems Constitutional: denies: Fever Nose: denies: Congestion Cardiac: denies: Chest pain / pressure Respiratory: denies: Dyspnea GI: reports: Abdominal Pain, Nausea, Vomiting. 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: Other HEENT: Tonsil/Adenoidectomy - Present Medications Home Medications: Ambulatory Orders Medication Instructions Recorded Confirmed Pantoprazole [Protonix] 40 mg PO DAILY 30 Days #30 tablet 03/13/22 05/10/22 HYDROmorphone [Dilaudid] 2 mg PO Q6H PRN #20 tablet 04/08/22 05/10/22 LORazepam [Ativan] 1 mg PO Q6H PRN #15 tablet 04/08/22 05/10/22 Lipase/Protease/Amylase [Creon Dr 24,000 unit PO TIDWM 04/08/22 05/10/22 24,000 Unit Capsule] Ondansetron Odt [Zofran] 4 mg TL Q6H PRN #15 tablet 04/08/22 05/10/22 Acetaminophen [Tylenol] 650 mg PO Q6H PRN 04/09/22 05/10/22 Loratadine [Claritin] 10 mg PO DAILY PRN 04/09/22 05/10/22 Sucralfate [Carafate] 1 gm PO QPM 04/09/22 05/10/22 Acamprosate Calcium 1 tab PO DAILY 05/04/22 05/10/22 Famotidine [Pepcid] 20 mg PO DAILY 05/04/22 05/10/22 Promethazine [Phenergan] 25 mg PO Q6HR PRN 05/04/22 05/10/22 Sennosides/Docusate Sodium 1 tab PO DAILY PRN 05/04/22 05/10/22 [Senna-S 8.6-50 mg Tablet] oxyCODONE [Roxicodone] 15 mg PO Q6HR PRN 05/04/22 05/10/22 polyethylene glycoL 3350 [Miralax] 17 gm PO DAILY PRN 05/04/22 05/10/22 Famotidine [Pepcid] 20 mg PO BID #20 tablet 05/05/22 05/10/22 oxyCODONE [Roxicodone] 5 mg PO Q6H PRN #15 tablet 05/05/22 05/10/22 - Allergies Allergies/Adverse Reactions: Allergies Allergy/AdvReac Type Severity Reaction Status Date / Time No Known Drug Allergies Allergy Verified 05/10/22 20:55 - Social History Does the pt smoke?: Yes Smoking Status: Current every day smoker Does the pt drink ETOH?: Yes Does the pt have substance abuse?: Yes - Immunizations Immunizations are current?: Yes - POLST Patient has POLST: No POLST Status: Full Code PD ED PE NORMAL - General General: Alert and oriented X 3, Well developed/nourished, Other (Mild distress, retching into emesis bag) - HEENT HEENT: Atraumatic. No: Moist mucous membranes - Neck Neck: Supple, no meningeal sign - Cardiac Cardiac: No murmur (Tachycardic, regular rhythm) - Respiratory Respiratory: No respiratory distress, Clear bilaterally - Abdomen Abdomen: Normal bowel sounds, Soft, Non distended, Other (Generalized abdominal tenderness, worse in the left upper quadrant) - Derm Derm: Warm and dry - Extremities Extremities: No edema - Neuro Neuro: Normal speech Results - Vitals Vitals: Vital Signs - 24 hr 05/10/22 05/10/22 05/10/22 20:52 22:00 22:34 Temperature 36.4 C L Heart Rate 146 H 124 H 114 H Respiratory 20 18 24 Rate Blood Pressure 91/63 99/71 115/85 H O2 Saturation 99 95 100 05/11/22 05/11/22 05/11/22 00:00 02:00 04:08 Temperature Heart Rate 100 78 94 Respiratory 19 19 16 Rate Blood Pressure 113/86 H 128/82 H 108/69 O2 Saturation 100 98 98 05/11/22 04:42 Temperature Heart Rate 91 Respiratory 17 Rate Blood Pressure 111/76 O2 Saturation 100 Oxygen O2 Source Room air - Labs Labs: Laboratory Tests 05/10/22 05/10/22 05/10/22 21:23 21:23 21:58 WBC 15.7 H RBC 4.40 Hgb 14.6 Hct 43.1 MCV 98.0 MCH 33.2 H MCHC 33.9 RDW 13.4 Plt Count 509 H MPV 11.0 H Neut # (Auto) Not Reportable Lymph # (Auto) Not Reportable [place] # (Auto) Not Reportable Eos # (Auto) Not Reportable Baso # (Auto) Not Reportable Absolute Nucleated RBC Not Reportable Total Counted 100 Band Neuts % (Manual) 0 Reactive Lymphs % (Man) 1 Abnorm Lymph % (Manual) 0 Nucleated RBC % Not Reportable Neutrophils # (Manual) 12.4 H Lymphocytes # (Manual) 2.5 Monocytes # (Manual) 0.8 Eosinophils # (Manual) 0.0 Basophils # (Manual) 0.0 Differential Comment MANUAL DIFFERENTIAL Platelet Estimate INCREASED (>450,000) Platelet Morphology NORMAL APPEARANCE RBC Morph Micro Appear NORMAL APPEARANCE Sodium 133 L Potassium 3.2 L Chloride 85 L Carbon Dioxide 26 Anion Gap 22.0 H BUN 26 H Creatinine 2.7 H Estimated GFR (MDRD) 20 L Glucose 173 H Lactic Acid Calcium 10.4 H Total Bilirubin 0.7 AST 12 ALT < 10 L Alkaline Phosphatase 125 H Total Protein 9.3 H Albumin 4.4 Globulin 4.9 H Albumin/Globulin Ratio 0.9 L Lipase 63 H Urine Color Urine Clarity Urine pH Ur Specific [place] Urine Protein Urine Glucose (UA) Urine Ketones Urine Occult Blood Urine Nitrite Urine Bilirubin Urine Urobilinogen Ur Leukocyte Esterase Urine RBC Urine WBC Ur Squamous Epith Cells Urine Bacteria Urine Casts Urine Mucus Ur Microscopic Review Urine Culture Comments Urine HCG, Qual SARS-CoV-2 (PCR) NOT DETECTED 05/10/22 05/11/22 05/11/22 23:11 00:29 01:15 WBC RBC Hgb Hct MCV MCH MCHC RDW Plt Count MPV Neut # (Auto) Lymph # (Auto) [place] # (Auto) Eos # (Auto) Baso # (Auto) Absolute Nucleated RBC Total Counted Band Neuts % (Manual) Reactive Lymphs % (Man) Abnorm Lymph % (Manual) Nucleated RBC % Neutrophils # (Manual) Lymphocytes # (Manual) Monocytes # (Manual) Eosinophils # (Manual) Basophils # (Manual) Differential Comment Platelet Estimate Platelet Morphology RBC Morph Micro Appear Sodium Potassium Chloride Carbon Dioxide Anion Gap BUN Creatinine Estimated GFR (MDRD) Glucose Lactic Acid 1.1 Calcium Total Bilirubin AST ALT Alkaline Phosphatase Total Protein Albumin Globulin Albumin/Globulin Ratio Lipase Urine Color DARK YELLOW DARK YELLOW Urine Clarity HAZY HAZY Urine pH 5.0 5.5 Ur Specific [place] >=1.030 H >=1.030 H Urine Protein 100 H 30 H Urine Glucose (UA) NEGATIVE NEGATIVE Urine Ketones TRACE TRACE Urine Occult Blood NEGATIVE NEGATIVE Urine Nitrite NEGATIVE NEGATIVE Urine Bilirubin NEGATIVE NEGATIVE Urine Urobilinogen 0.2 (NORMAL) 0.2 (NORMAL) Ur Leukocyte Esterase SMALL H NEGATIVE Urine RBC 0-5 0-5 Urine WBC 4-5 0-3 Ur Squamous Epith Cells MANY Squamous H FEW Squamous Urine Bacteria Moderate H Few Urine Casts 3-5 Hyaline Casts Urine Mucus Moderate Strands Ur Microscopic Review INDICATED Urine Culture Comments NOT INDICATED NOT INDICATED Urine HCG, Qual NEGATIVE SARS-CoV-2 (PCR) PD MEDICAL DECISION MAKING - ED course Complexity details: reviewed results, re-evaluated patient, d/w patient ED course: Patient presenting for evaluation of abdominal pain with vomiting. Vital signs are stable and labs are unremarkable. The patient did receive Zofran prior to arrival. She additionally received IV morphine. After receiving morphine she reported feeling increasingly anxious and having more nausea and vomiting. Therefore I did give her a dose of droperidol which helped calm her down. We were able to obtain a CT scan. Her repeat abdominal exam was benign with no reproducible tenderness. Given that she came in during the overnight, radiology reports are provided from [facility] can take several hours. Patient did not want to wait further in the ER for her CT report. She is aware that I have not yet ruled out a surgical Or potentially life altering diagnosis. She states that she is feeling anxious being in the emergency department and just wants to go home and sleep. I offered to give her additional medication, turned on the lights make her more comfortable in the room. She declined these interventions and is feeling better and would like to go home. She appears to have decision- making capacity.She does not appear altered or Intoxicated. She is ambulatory.She has clear speech. Patient aware that we will notify her of any significant results but otherwise that she should follow-up with her PCP and may need a GI referral. Departure - Departure Disposition: ED Place in Observation Clinical Impression: RAY (acute kidney injury), Pancreatic pseudocyst, Nausea and vomiting, Intractable abdominal pain Condition: Fair
--- NOTE | 2022-05-10 23:14 | CT Report ---
PROCEDURE: ABDOMEN/PELVIS WO INDICATIONS: pancreatitis with pseudocyst; elevated creatinine TECHNIQUE: Noncontrast 5 mm thick sections acquired from the diaphragms to the symphysis. 5 mm coronal and sagi ttal reformats were then performed. For radiation dose reduction, the following was used: automated exposure control, adjustment of mA and/or kV according to patient size. COMPARISON: [facility] CT abdomen pelvis 05/08/2022 [facility] CT anterior abdomen pelvis 05/02/2022, CT abdomen pelvis 05/02/2022, 04/16/2022, 04/09/2022, 12/13/2021.. FINDINGS: Image quality: Excellent. Lung bases:There is minimal dependent atelectasis. Heart: Heart is normal in size. ABDOMEN: Liver:Noncontrast evaluation of the liver redemonstrates a small focal hypodensity within the left h epatic lobe which is too small to characterize but likely represents a cyst. Gallbladder: Within normal limits without calcified gallstones. Biliary ducts: No biliary ductal dilatation. Pancreas: There is a thick-walled loculated collection redemonstrated within the pancreatic head and uncinate process, measuring up to 7.0 x 6.6 cm on series 3 image 35.The findings similar in size co mpared to the recent study of 05/08/2022 but progressively increased over time compared to prior stud ies dating back to 11/16/2021. There is interval decreased internal high density compared to the 2021 study which likely reflected internal hemorrhage. Mild associated fat stranding is redemonstrate d along the collection. There is no pancreatic duct dilatation. A smaller collection posterior to the pancreatic body measuring 2.7 x 1.2 cm on series 3 image 27 slightly decreased in size compared to [facility] recent prior study on which it measured approximately 2.1 x 2.1 cm. Spleen: Normal in size. Adrenal Glands: No adrenal nodules. Kidneys and Ureters: No hydronephrosis. Stomach and Bowel: Stomach, small bowel loops, and colon are normal in caliber and wall thickness. T appendix is normal in appearance. Peritoneum: No abnormal intraperitoneal fluid. No free air. Ventral Wall: No hernia. Abdominal Nodes: No retroperitoneal or mesenteric adenopathy by size criteria. Vessels: Aorta and inferior vena cava are normal in size. PELVIS: Pelvic Organs:An IUD appears in appropriate position within the uterus. Bladder: Unremarkable. Pelvic Nodes: No enlarged lymph nodes. Miscellaneous: No inguinal hernias are seen. Bones: Visualized osseous structures demonstrate no suspicious focal lesions. IMPRESSION: 1. Thick-walled fluid collection within the ectatic head and uncinate process appears similar in size compared to the recent study of 05/08/2022 but progressive increase in size over time compared to pr ior exams dating back to 11/16/2021. Given that the finding is a chronic collection secondary to necrot izing pancreatitis, this is consistent with walled off necrosis. 2. There has been resolution of internal heterogeneous high density previously seen on 05/02/2022 [facility] which likely represented internal hemorrhage. 3. Interval decrease in size of a peripancreatic collection posterior to the pancreatic body consiste nt with a pseudocyst. Reviewed by: Gordo Wills MD on 05/10/2022 11:13 PM PST Approved by: Gordo Wills MD on 05/10/2022 11:13 PM PST Station ID: [id number]
[2022-05-10 23:22] LABS: GLUCOSE, URINE (UA) NEGATIVE (NEGATIVE); KETONES,URINE (UA) TRACE mg/dL (NEGATIVE); LEUKOCYTE ESTERASE, URINE SMALL (NEGATIVE); NITRITE,URINE NEGATIVE (NEGATIVE); OCCULT BLOOD,URINE NEGATIVE (NEGATIVE); PROTEIN,URINE 100 mg/dL (NEGATIVE); UROBILINOGEN,URINE 0.2 (NORMAL) E.U./dL (NORMAL)
[2022-05-10 23:37] LABS: BILIRUBIN,URINE NEGATIVE (NEGATIVE); CLARITY,URINE HAZY (CLEAR); HCG UR QUAL NEGATIVE; ICTOTEST,URINE NEGATIVE; RBC,URINE 0-5 /HPF (0-5); SQUAMOUS EPITHELIAL CELL,UR MANY Squamous (<= Few)
[2022-05-10 23:38] LABS: BACTERIA,URINE Moderate /HPF (None Seen)
[2022-05-10] MEDS ORDERED: FAMOTIDINE 20 MG/2 ML VIAL IVP STA (23:40)
[2022-05-11] MEDS ORDERED: cefTRIAXone 1 GM in SODIUM CHLORIDE 0.9% MINIBAG 100 ML IV STA (00:11)
[2022-05-11] MEDS: POTASSIUM CHLOR 10 MEQ/100 ML 10 MEQ/100 ML BAG IV SCH ×2 (00:13→01:58)
--- NOTE | 2022-05-11 00:19 | HISTORY & PHYSICAL EXAMINATION ---
Chief Complaint - Chief Complaint Chief Complaint: abdominal pain / nausea / vomiting History of Present Illness - History of Present Illness HPI Comment/Other: pt presents with worsening abd pain x 2 days, with nausea and vomiting, with h/o same, when she was diagnosed with pancreatitis. pt has h/o frequent episodes and was recently hospitalized for same, without any interventions. h/o etoh abuse, which has contributed to her pancreatitis, but she stopped drinking more than a month ago. she still smokes cannabis occasionally and is trying to cut back on smoking cigarettes (smokes 3-4 cigarettes daily), with last use more than 1 wk ago. she had a UA done at another facility a few days ago, but while she waiting for come to ER this evening, she was called by the other facility and told that E.coli was growing in her urine. she denies diarrhea and states feeling constipated. denies dysuria or hematuria. no fevers but feels chills. no chest pain or sob. she has not eaten much over last few days d/t nausea / vomiting. 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 Living Situation: With family Social History Notes: She previously drank alcohol on a consistent basis but now barely has any. She smokes a couple cigarettes a day and has been doing so for the past 16 years. She lives with her daughter and with her mother. She works full-time. - Substance History Use: Uses substance without health or social issues: Tobacco - POLST Patient has POLST: No POLST Status: Full Code Meds/Allgy - Home Medications Home Medications: Ambulatory Orders Medication Instructions Recorded Confirmed Pantoprazole [Protonix] 40 mg PO DAILY 30 Days #30 tablet 03/13/22 05/10/22 HYDROmorphone [Dilaudid] 2 mg PO Q6H PRN #20 tablet 10/24/22 11/25/22 LORazepam [Ativan] 1 mg PO Q6H PRN #15 tablet 04/08/22 05/10/22 Lipase/Protease/Amylase [Frank Ledbetter 24,000 unit PO TIDWM 04/08/22 05/10/22 24,000 Unit Capsule] Ondansetron Odt [Zofran] 4 mg TL Q6H PRN #15 tablet 04/08/22 05/10/22 Acetaminophen [Tylenol] 650 mg PO Q6H PRN 04/09/22 05/10/22 Loratadine [Claritin] 10 mg PO DAILY PRN 04/09/22 05/10/22 Sucralfate [Carafate] 1 gm PO QPM 04/09/22 05/10/22 Acamprosate Calcium 1 tab PO DAILY 05/04/22 05/10/22 Famotidine [Pepcid] 20 mg PO DAILY 05/04/22 05/10/22 Promethazine [Phenergan] 25 mg PO Q6HR PRN 05/04/22 05/10/22 Sennosides/Docusate Sodium 1 tab PO DAILY PRN 05/04/22 05/10/22 [Senna-S 8.6-50 mg Tablet] oxyCODONE [Roxicodone] 15 mg PO Q6HR PRN 05/04/22 05/10/22 polyethylene glycoL 3350 [Miralax] 17 gm PO DAILY PRN 05/04/22 05/10/22 Famotidine [Pepcid] 20 mg PO BID #20 tablet 05/05/22 05/10/22 oxyCODONE [Roxicodone] 5 mg PO Q6H PRN #15 tablet 05/05/22 05/10/22 - Allergies Allergies/Adverse Reactions: Allergies Allergy/AdvReac Type Severity Reaction Status Date / Time No Known Drug Allergies Allergy Verified 05/10/22 20:55 Review of Systems - Other Findings Other Findings: 14 pt review done with positives per hpi; all others reviewed as negative Exam - Vital Signs Vital Signs: Vital Signs x48h Temp Pulse Resp BP Pulse Ox 05/11/22 00:00 100 19 113/86 H 100 05/10/22 22:34 114 H 24 115/85 H 100 05/10/22 22:00 124 H 18 99/71 95 05/10/22 20:52 36.4 C L 146 H 20 91/63 99 - Physical Exam Comments/Other: gen - aaox3, uncomfortable but cooperative with questions heent - eomi, nc/at, dry mouth heart - tachy lungs - ctab abd - soft, bsx4, diffuse tenderness msk - no acute trauma noted Conclusion/Plan - Lab Results Fish Bones: 05/10/22 21:23 05/10/22 21:23 - Other Other Results/Comments: pt with - - acute abdominal pain in setting of acute on chronic pancreatitis (below) with nausea and vomiting no trauma reported mgmt detailed below - acute on chronic pancreatitis with frequent episodes of same walled-off necrosis noted on imaging pain control, IVF, supportive care - cannabis hyperemesis syndrome contributory to frequent episodes of nausea and vomiting pt counseled to stop, and states she has stopped drinking and will also stop tobacco usage (below) contributory pancreatitis and abd pain IVF, supportive care - RAY likely d/t pre-renal azotemia and UTI also with possible concern from diabetic nephropathy with undiagnosed / untreated t2dm no obstruction or hydronephrosis reported on CT imaging check renal sono, continue IVF --> if no improvement, pt may need renal evaluation - UTI with urine culture POS for E.coli from other facility start rocephin for now and await sensitivities contributory to RAY (above) - hyperglycemia likely d/t current presentation and concern for t2dm prior glucose in 200s frequent pancreatitis episodes increases risk for insulin deficiency and reduced insulin sensitivity state check a1c, start ssi - leukocytosis acute stress related reaction also concern for possible infection continue rocephin, and add flagyl f/u cultures check lactate - thrombocytosis acute phase reaction heparin BID, SCD's, ambulate as tolerated - etoh abuse contributory to prior episodes of pancreatitis pt reports not have etoh in over a month - tobacco abuse smokes 3-4 cigarettes daily, last use more than a week ago - nausea / vomiting multi-factorial, in setting of above supportive meds, IVF f/u labs, cultures, replete electrolytes further orders per clinical course
[2022-05-11 00:32] LABS: GLUCOSE, URINE (UA) NEGATIVE (NEGATIVE); KETONES,URINE (UA) TRACE mg/dL (NEGATIVE); LEUKOCYTE ESTERASE, URINE NEGATIVE (NEGATIVE); NITRITE,URINE NEGATIVE (NEGATIVE); OCCULT BLOOD,URINE NEGATIVE (NEGATIVE); PH,URINE 5.5 PH (5.0-7.5); PROTEIN,URINE 30 mg/dL (NEGATIVE); UROBILINOGEN,URINE 0.2 (NORMAL) E.U./dL (NORMAL)
[2022-05-11 00:43] LABS: BILIRUBIN,URINE NEGATIVE (NEGATIVE); CLARITY,URINE HAZY (CLEAR); ICTOTEST,URINE NEGATIVE; RBC,URINE 0-5 /HPF (0-5); SQUAMOUS EPITHELIAL CELL,UR FEW Squamous (<= Few); WBC,URINE 0-3 /HPF (0-5)
[2022-05-11 00:44] LABS: BACTERIA,URINE Few /HPF (None Seen); CASTS, URINE 3-5 Hyaline Casts /LPF; MUCUS,URINE Moderate Strands
[2022-05-11] MEDS ORDERED: polyethylene glycoL 3350 17 GM PACKET PO PRN (00:51)
[2022-05-11] MEDS ORDERED: SODIUM CHLORIDE FLUSH 0.9% 10 ML SYRINGE IVP PRN (01:01)
[2022-05-11] MEDS ORDERED: HEPARIN 5,000 UNIT/ML VIAL SUBQ SCH (02:00)
[2022-05-11] MEDS: HYDROmorphone 2 MG TABLET PO PRN ×4 (02:28→23:03)
[2022-05-11] MEDS: metroNIDAZOLE 500 MG/100 ML 500 MG/100 ML BAG IV SCH ×3 (03:15→17:27)
[2022-05-11] MEDS: LACTATED RINGERS 1,000 ML IV SCH ×2 (04:39→09:34)
[2022-05-11 07:24] LABS: BASOPHILS # (AUTO) 0.1 10^3/uL (0.0-0.1); BASOPHILS % (AUTO) 0.6 %; EOSINOPHILS # (AUTO) 0.2 10^3/uL (0.0-0.7); EOSINOPHILS % (AUTO) 2.1 %; HCT - HEMATOCRIT 33.8 % (37.0-47.0); HGB - HEMOGLOBIN 11.1 g/dL (12.0-16.0); LYMPHOCYTES # (AUTO) 2.7 10^3/uL (1.5-3.5); LYMPHOCYTES % (AUTO) 28.8 %; MEAN CORPUSCULAR HEMOGLOBIN 33.8 pg (27.0-31.0); MEAN CORPUSCULAR HGB CONC 32.8 g/dL (32.0-36.0); MONOCYTES # (AUTO) 1.1 10^3/uL (0.0-1.0); MONOCYTES % (AUTO) 11.3 %; NEUTROPHILS # (AUTO) 5.4 10^3/uL (1.5-6.6); NEUTROPHILS % (AUTO) 56.8 %; PLT - PLATELET COUNT 276 10^3/uL (130-450); RED BLOOD COUNT 3.28 10^6/uL (4.20-5.40); RED CELL DISTRIBUTION WIDTH 13.9 % (12.0-15.0); WHITE BLOOD COUNT 9.5 x10^3/uL (4.8-10.8)
[2022-05-11] MEDS ORDERED: SENNA 8.6 MG TABLET PO PRN (07:24)
[2022-05-11 07:47] LABS: ALBUMIN 3.1 g/dL (3.2-5.5); ALBUMIN/GLOBULIN RATIO 0.9 (1.0-2.2); ALKALINE PHOSPHATASE 83 IU/L (42-121); ALT ALANINE AMINOTRANSFERASE < 10 IU/L (10-60); AST ASPARTATE AMINOTRANSFERASE 10 IU/L (10-42); BILIRUBIN,TOTAL 0.7 mg/dL (0.2-1.0); BUN - BLOOD UREA NITROGEN 20 mg/dL (6-20); CALCIUM 8.6 mg/dL (8.5-10.3); CARBON DIOXIDE - CO2 27 mmol/L (21-32); CHLORIDE 97 mmol/L (101-111); GFR - MDRD 63 (>89); GLUCOSE 111 mg/dL (70-100); LIPASE 42 U/L (22-51); POTASSIUM 3.5 mmol/L (3.5-5.0); SODIUM 135 mmol/L (135-145); TOTAL PROTEIN 6.4 g/dL (6.7-8.2)
[2022-05-11] MEDS: INSULIN REGULAR HUMAN 300 UNIT/3 ML VIAL SUBQ SCH ×4 (07:47→18:47)
[2022-05-11] MEDS ORDERED: LIPASE/PROTEASE/AMYLASE CAPSULE PO SCH (08:00)
[2022-05-11] MEDS ORDERED: LACTOBACILLUS RHAMNOSUS GG CAPSULE PO SCH (09:00)
[2022-05-11] MEDS: SODIUM CHLORIDE FLUSH 0.9% 10 ML SYRINGE IVP SCH ×2 (09:34→16:39)
[2022-05-11] MEDS: MULTIVITAMIN TABLET PO SCH (09:37)
[2022-05-11] MEDS: HEPARIN 5,000 UNIT/ML VIAL SUBQ SCH ×2 (09:37→20:42)
[2022-05-11] MEDS: ONDANSETRON ODT 4 MG TABLET TL PRN (09:39)
[2022-05-11] MEDS: cefTRIAXone 1 GM in SODIUM CHLORIDE 0.9% MINIBAG 100 ML IV SCH (09:56)
--- NOTE | 2022-05-11 11:17 | Ultrasound Report ---
PROCEDURE: Arterial Visceral Complete INDICATIONS: RAY - RENAL US TECHNIQUE: Real time scanning was performed of both kidneys, followed by Color and pulsed Doppler in terrogation of the renal vessels. COMPARISON: Prior abdominal ultrasound, 08/06/2021 Correlation is made with abdomen pelvis CT, 2021. FINDINGS: Aortic peak systolic velocity: 121 cm/s. Right side: Cespedes-scale imaging: Kidney is 10.4 cm long; renal cortical thickness is 1.6 cm. No hydronephrosis. Mild fullness is again seen involving the right renal pelvis, without aniya hydronephrosis nephrolith iasis. Renal cortex is normal in echogenicity. No suspicious solid renal masses. Proximal renal artery peak systolic velocity: 118 cm/s. Mid renal artery peak systolic velocity: 184 cm/s. Distal renal artery peak systolic velocity: 190 cm/s. Renal vein: Patent, without thrombus. Peak renal/aortic ratio (RAR): 1.6 Left side: Cespedes-scale imaging: Kidney is 11.4 cm long; renal cortical thickness is 1.9 cm. No hydronephrosis. No nephrolithiasis. Renal cortex is normal in echogenicity. No suspicious solid renal masses. Proximal renal artery peak systolic velocity: 162 cm/s. Mid-renal artery peak systolic velocity: 82 cm/s. Distal renal artery peak systolic velocity: 143 cm/s. Renal vein: Patent, without thrombus. Peak renal/aortic ratio (RAR): 1.3 This study is limited by body habitus. IMPRESSION: No hemodynamically significant stenosis is detected. Note: Concordant preliminary findings given by the financial assistance specialist upon the completion of the examination to Dr. Durán. Reviewed by: Nael Dodd MD on 05/11/2022 10:16 AM [facility] Approved by: Nael Dodd MD on 05/11/2022 10:16 AM [facility] Station ID: [id number]
[2022-05-11] MEDS: PANTOPRAZOLE 40 MG TABLET PO SCH (12:43)
--- NOTE | 2022-05-11 13:20 | PHARMACY PROGRESS NOTE ---
- Best Possible Medication History Admit Date and Time: 05/11/22 0101 Processed by: Nursing Medication History completed: Yes As the person ultimately responsible for medication therapy, providers are able to order a medication from an existing home medication list in [facility] via the "Reconcile Routine" prior to Confirmation of that medication by physician support coordinator. Such practice is discouraged except when the physician, in their clinical judgment, deems that a medical need exists for a medication without regard to previous use.
[2022-05-11] MEDS: LIPASE/PROTEASE/AMYLASE CAPSULE PO SCH (16:08)
[2022-05-11] MEDS: SODIUM CHLORIDE 0.9% 1,000 ML IV SCH (16:38)
[2022-05-11] MEDS: oxyCODONE 5 MG TABLET PO PRN (17:35)
[2022-05-11] MEDS: NICOTINE 14 MG PATCH TOP SCH (19:02)
[2022-05-11 20:27] LABS: ESTIMATED AVERAGE GLUCOSE 111 mg/dL (70-100); HEMOGLOBIN A1c% 5.5 % (4.27-6.07)
[2022-05-11] MEDS: PROMETHAZINE 25 MG TABLET PO PRN (20:30)
[2022-05-11] MEDS: SUCRALFATE 1 GM/10 ML UDC PO SCH (20:41)
[2022-05-12] MEDS: oxyCODONE 5 MG TABLET PO PRN ×4 (00:44→20:25)
[2022-05-12] MEDS: PROMETHAZINE 25 MG TABLET PO PRN ×2 (01:45→12:58)
[2022-05-12] MEDS: SODIUM CHLORIDE 0.9% 1,000 ML IV SCH ×3 (03:47→23:04)
[2022-05-12] MEDS: INSULIN REGULAR HUMAN 300 UNIT/3 ML VIAL SUBQ SCH ×3 (03:48→11:53)
[2022-05-12] MEDS: metroNIDAZOLE 500 MG/100 ML 500 MG/100 ML BAG IV SCH ×3 (03:50→17:09)
[2022-05-12] MEDS: SODIUM CHLORIDE FLUSH 0.9% 10 ML SYRINGE IVP SCH ×3 (03:52→16:15)
[2022-05-12] MEDS: HYDROmorphone 2 MG TABLET PO PRN ×2 (05:20→17:13)
[2022-05-12 05:23] LABS: BASOPHILS % (AUTO) 0.6 %; EOSINOPHILS # (AUTO) 0.3 10^3/uL (0.0-0.7); EOSINOPHILS % (AUTO) 4.6 %; HCT - HEMATOCRIT 32.7 % (37.0-47.0); HGB - HEMOGLOBIN 10.6 g/dL (12.0-16.0); LYMPHOCYTES # (AUTO) 2.1 10^3/uL (1.5-3.5); LYMPHOCYTES % (AUTO) 33.5 %; MEAN CORPUSCULAR HEMOGLOBIN 33.7 pg (27.0-31.0); MEAN CORPUSCULAR HGB CONC 32.4 g/dL (32.0-36.0); MEAN CORPUSCULAR VOLUME 103.8 fL (81.0-99.0); MEAN PLATELET VOLUME 10.6 fL (7.9-10.8); MONOCYTES # (AUTO) 0.5 10^3/uL (0.0-1.0); MONOCYTES % (AUTO) 8.1 %; NEUTROPHILS # (AUTO) 3.3 10^3/uL (1.5-6.6); NEUTROPHILS % (AUTO) 52.9 %; PLT - PLATELET COUNT 289 10^3/uL (130-450); RED BLOOD COUNT 3.15 10^6/uL (4.20-5.40); RED CELL DISTRIBUTION WIDTH 13.6 % (12.0-15.0); WHITE BLOOD COUNT 6.3 x10^3/uL (4.8-10.8)
[2022-05-12 05:39] LABS: ALBUMIN 2.4 g/dL (3.2-5.5); ALBUMIN/GLOBULIN RATIO 0.8 (1.0-2.2); ALKALINE PHOSPHATASE 79 IU/L (42-121); ALT ALANINE AMINOTRANSFERASE < 10 IU/L (10-60); AST ASPARTATE AMINOTRANSFERASE 13 IU/L (10-42); BILIRUBIN,TOTAL 0.4 mg/dL (0.2-1.0); BUN - BLOOD UREA NITROGEN 10 mg/dL (6-20); CALCIUM 8.1 mg/dL (8.5-10.3); CARBON DIOXIDE - CO2 25 mmol/L (21-32); CHLORIDE 100 mmol/L (101-111); CREATININE 0.6 mg/dL (0.4-1.0); CRP - C-REACTIVE PROTEIN 3.2 mg/dL (0-1.0); GFR - MDRD 114 (>89); GLUCOSE 99 mg/dL (70-100); POTASSIUM 3.2 mmol/L (3.5-5.0); SODIUM 132 mmol/L (135-145); TOTAL PROTEIN 5.5 g/dL (6.7-8.2)
[2022-05-12] MEDS: PANTOPRAZOLE 40 MG TABLET PO SCH (06:29)
[2022-05-12] MEDS: MULTIVITAMIN TABLET PO SCH (08:19)
[2022-05-12] MEDS: cefTRIAXone 1 GM in SODIUM CHLORIDE 0.9% MINIBAG 100 ML IV SCH (08:19)
[2022-05-12] MEDS: LIPASE/PROTEASE/AMYLASE CAPSULE PO SCH ×3 (08:19→17:09)
[2022-05-12] MEDS: NICOTINE 14 MG PATCH TOP SCH (08:21)
[2022-05-12] MEDS: HEPARIN 5,000 UNIT/ML VIAL SUBQ SCH ×2 (08:22→20:26)
[2022-05-12] MEDS: POTASSIUM CHLOR 10 MEQ/100 ML 10 MEQ/100 ML BAG IV SCH ×6 (09:11→15:45)
--- NOTE | 2022-05-12 10:55 | PROVIDER PROGRESS NOTE ---
Subjective - Prog Note Date Prog Note Date: 05/12/22 Prog Note Time: 10:51 - Subjective Pt reports feeling: Improved Subjective: Nancy is still in pain, but she is no longer nauseous or vomiting. She let me know that when she was in the ED they gave her pain medication by mouth but it took too long to work and she was in excruciating pain. She asked if she can have dilaudid IV in case of emergencies for pain. We had a aniya discussion about opioid use, and that she is looking at a long road for recovery from this. She needs to be vigilant for trading one addiction for another, alcohol for opioids, and that continuing pain medication long-term will not be in her best interest. She has been in contact with an psych sales specialist at for her alcohol use and she may want to discuss her pain management with them as well. She gets teary while we talk about this and says she understands and she does not want to be addicted to anything, she has been sober for 5 weeks and would like to stay that way. Current Medications - Current Medications Current Medications: Active Medications Lipase/Protease/Amylase (Lipase/Protease/Amylase Capsule) 5 cap PO TIDWM [facility] Last Admin: 05/12/22 08:19 Dose: 5 cap Heparin Sodium (Porcine) (Heparin 5,000 Unit/Ml Vial) 5,000 unit SUBQ BID [facility] Last Admin: 05/12/22 08:22 Dose: 5,000 unit Hydromorphone HCl (Hydromorphone 2 Mg Tablet) 2 mg PO Q6H PRN PRN Reason: PAIN Last Admin: 05/12/22 05:20 Dose: 2 mg Ceftriaxone Sodium 1 gm/ (Sodium Chloride) 100 mls @ 200 mls/hr IV DAILY [facility] Last Infusion: 05/12/22 08:50 Dose: Infused Metronidazole (Flagyl 500 Mg/100 Ml) 500 mg in 100 mls @ 100 mls/hr IV Q8H [facility] Last Admin: 05/12/22 08:32 Dose: 100 mls/hr Sodium Chloride (Normal Saline 0.9%) 1,000 mls @ 100 mls/hr IV .Q10H [facility] Last Infusion: 05/12/22 06:29 Dose: 100 mls/hr Potassium Chloride (Potassium Chloride) 10 meq in 100 mls @ 100 mls/hr IV Q1H [facility] Stop: 05/12/22 14:59 Last Admin: 05/12/22 10:12 Dose: 100 mls/hr Insulin Human Regular (Insulin Regular Human 300 Unit/3 Ml Vial) 1 - 5 unit SUBQ Q6HR [facility]; Protocol Last Admin: 05/12/22 06:20 Dose: Not Given Multivitamins (Multivitamin Tablet) 1 tab PO DAILYWM [facility] Last Admin: 05/12/22 08:19 Dose: 1 tab Nicotine (Nicotine 14 Mg Patch) 1 patch TOP DAILY [facility] Last Admin: 05/12/22 08:21 Dose: 1 patch Ondansetron HCl (Ondansetron Odt 4 Mg Tablet) 4 mg TL Q6H PRN PRN Reason: Nausea / Vomiting Last Admin: 05/11/22 09:39 Dose: 4 mg Oxycodone HCl (Oxycodone 5 Mg Tablet) 5 mg PO Q6H PRN PRN Reason: PAIN Last Admin: 05/12/22 06:29 Dose: 5 mg Pantoprazole Sodium (Pantoprazole 40 Mg Tablet) 40 mg PO QDAC [facility] Last Admin: 05/12/22 06:29 Dose: 40 mg Acamprosate Calcium (333 Mg Tablet.) 1 each PO DAILY [facility] Last Admin: 05/12/22 09:20 Dose: Not Given Polyethylene Glycol (Polyethylene Glycol 3350 17 Gm Packet) 17 gm PO DAILY PRN PRN Reason: Constipation Promethazine HCl (Promethazine 25 Mg Tablet) 25 mg PO Q6HR PRN PRN Reason: Nausea / Vomiting Last Admin: 05/12/22 01:45 Dose: 25 mg Senna (Senna 8.6 Mg Tablet) 8.6 mg PO DAILY PRN PRN Reason: Constipation Sodium Chloride (Sodium Chloride Flush 0.9% 10 Ml Syringe) 10 ml IVP PRN PRN PRN Reason: NEEDED PER PROVIDER ORDERS Sodium Chloride (Sodium Chloride Flush 0.9% 10 Ml Syringe) 10 ml IVP 0100,0900 ,1700 [facility] Last Admin: 05/12/22 08:22 Dose: 10 ml Sucralfate (Sucralfate 1 Gm/10 Ml Udc) 1 gm PO QPM [facility] Last Admin: 05/11/22 20:41 Dose: 1 gm Lipase/Protease/Amylase [Frank Ledbetter 24,000 Unit Capsule] 24,000 unit PO TIDWM 04/08/22 Acetaminophen [Tylenol] 650 mg PO Q6H PRN 04/09/22 Loratadine [Claritin] 10 mg PO DAILY PRN 04/09/22 Sucralfate [Carafate] 1 gm PO QPM 04/09/22 Acamprosate Calcium 1 tab PO DAILY 05/04/22 Promethazine [Phenergan] 25 mg PO Q6HR PRN 05/04/22 Sennosides/Docusate Sodium [Senna-S 8.6-50 mg Tablet] 1 tab PO DAILY PRN 05/04/22 polyethylene glycoL 3350 [Miralax] 17 gm PO DAILY PRN 05/04/22 Objective - Vital Signs/Intake & Output Vital Signs: Vital Signs x48h Temp Pulse Resp BP Pulse Ox 05/12/22 07:47 36.7 C 93 16 127/84 H 97 05/12/22 05:00 36.6 C 90 18 123/81 H 98 Intake & Output: Intake & Output 05/09/22 05/10/22 05/11/22 05/12/22 23:59 23:59 23:59 23:59 Intake Total 1000 3457.500 1820 Output Total 1 Balance 1000 3456.500 1820 - Objective General Appearance: positive: No acute distress, Alert Eyes Bilateral: positive: PERRL, EOMI ENT: positive: No signs of dehydration Neck: positive: No JVD. negative: Lymphadenopathy (R), Lymphadenopathy (L), Stiff neck Respiratory: positive: No respiratory distress, Breath sounds nml. negative: Wheezes, Rales, Rhonchi Cardiovascular: positive: Regular rate & rhythm Abdomen: positive: No distention, Tenderness Skin: positive: Warm, Dry Extremities: positive: Full ROM, No pedal edema Neurologic/Psychiatric: positive: Oriented x3, CN's nml (2-12), Motor nml - Lab Results Fish Bones: 05/12/22 04:54 05/12/22 04:54 Other Labs: Lab Results x24hrs 05/12/22 05/12/22 05/10/22 Range/Units 04:54 04:54 21:23 WBC 6.3 (4.8-10.8) x10^3/uL RBC 3.15 L (4.20-5.40) 10^6/uL Hgb 10.6 L (12.0-16.0) g/dL Hct 32.7 L (37.0-47.0) % MCV 103.8 H (81.0-99.0) fL MCH 33.7 H (27.0-31.0) pg MCHC 32.4 (32.0-36.0) g/dL RDW 13.6 (12.0-15.0) % Plt Count 289 (130-450) 10^3/uL MPV 10.6 (7.9-10.8) fL Neut # (Auto) 3.3 (1.5-6.6) 10^3/uL Lymph # (Auto) 2.1 (1.5-3.5) 10^3/uL [place] # (Auto) 0.5 (0.0-1.0) 10^3/uL Eos # (Auto) 0.3 (0.0-0.7) 10^3/uL Baso # (Auto) 0.0 (0.0-0.1) 10^3/uL Absolute Nucleated RBC 0.00 x10^3/uL Nucleated RBC % 0.0 /100WBC Sodium 132 L (135-145) mmol/L Potassium 3.2 L (3.5-5.0) mmol/L Chloride 100 L (101-111) mmol/L Carbon Dioxide 25 (21-32) mmol/L Anion Gap 7.0 (6-13) BUN 10 (6-20) mg/dL Creatinine 0.6 (0.4-1.0) mg/dL Estimated GFR (MDRD) 114 (>89) Glucose 99 (70-100) mg/dL Estimat Average Glucose 111 H (70-100) mg/dL Hemoglobin A1c % 5.5 (4.27-6.07) % Calcium 8.1 L (8.5-10.3) mg/dL Total Bilirubin 0.4 (0.2-1.0) mg/dL AST 13 (10-42) IU/L ALT < 10 L (10-60) IU/L Alkaline Phosphatase 79 (42-121) IU/L C-Reactive Protein 3.2 H (0-1.0) mg/dL Total Protein 5.5 L (6.7-8.2) g/dL Albumin 2.4 L (3.2-5.5) g/dL Globulin 3.1 (2.1-4.2) g/dL Albumin/Globulin Ratio 0.8 L (1.0-2.2) Sepsis Event Note (H) - Evaluation Current Stage of Sepsis: Ruled out Assessment/Plan - Problem List (1) Intractable abdominal pain Impression: Nancy presented to the ED with intractable abdominal pain with associated nausea and vomiting. She had been vomiting for four days at home, unable to eat anything. Of note, she has a pancreatic pseudocyst on the the head of her pancreas. When her pancreatitis flares, the pseudocyst has caused her gastric outlet obstruction. She has frequent episodes of pancreatitis with her history of alcohol abuse. In the ED she received a phone call from another facility that her urine was pos itive for E. coli. Urinalysis on 05/10 showed elevated specific gravity, proteinuria of 100, small amounts of leukocyte esterase, moderate bacteria, many squamous cells. on 05/11 her urinalysis was negative with elevated specific gravity and proteinuria at 30. She was started on Rocephin and metronidazole. She was given Oxycodone 5mg PO prn q6h and Dilaudid 2mg PO prn q6h in the ED to manage her pain. It seems to be under control now. Plan - continue rocephin and metronidazole for UTI - continue Oxycodone and dilaudid prn - continue IV fluids (2) Pancreatic pseudocyst Impression: She has a chronic pancreatic pseudocyst that is difficult to get to. She was transferred from here on April 16, discharged from on April 25. Her pseudocyst is at the head of the pancreas and intermittently sits on her duodenum causing gastric outlet obstruction. does not feel it is increasing in size and relatively stable over several CTs. Her pain was managed by IV opioids and gradually decreased and she was switched to PO opioids at discharge. She was discharged to follow up with Dr. Jacob Bautista at [facility] gastroenterology. I spoke with him on 05/11 and he said she is in a difficult positoin. Her pseudocyst is difficult to get to and complicated by her alcohol use. His hope is that she will stop drinking, the psuedocyst will harden, and she may have to be surgically opened to remove it. Her appointment with him was on 05/08, he had her evaluated at the ER because her pain was so bad. She was given morphine in the ER and sent home. She was home 05/09, 05/10 before coming to our ER 05/11. Plan - continue oxycodone and dilauded PO prn for pain management (3) Recurrent pancreatitis Impression: She has been seen several times in the ED for recurrent pancreatitis and upper abdominal pain with associated nausea, vomiting and history of alcohol abuse. Her lipase on 05/10 was 63, 05/11 was 42. Plan - see above for pain management - IV fluids (4) UTI (urinary tract infection) Impression: In the ED she received a phone call from another facility that her urine was positive for E. coli. Urinalysis on 05/10 showed elevated specific gravity, proteinuria of 100, small amounts of leukocyte esterase, moderate bacteria, many squamous cells. on 05/11 her urinalysis was negative with elevated specific gravity and proteinuria at 30. She was started on Rocephin and metronidazole 05/11 in the ED. Plan - continue rocephin and metronidazole Qualifiers: Urinary tract infection type: acute cystitis Hematuria presence: without hematuria Qualified Code(s): N30.00 - Acute cystitis without hematuria (5) Nausea and vomiting Impression: Nausea and vomiting is controlled at this time with pain management and phenergan. Plan - contiue phenergan 25mg PO q6hr prn (6) GERD (gastroesophageal reflux disease) Impression: History of GERD managed by famotidine 20mg BID. (7) Alcoholism in recovery Impression: She has recurrent pancreatitis likely from her alcohol abuse. She tells me that she has not had a drink in 5 weeks, and she has been in contact with an investigation specialist at for her alcohol use. She intends to stay sober. (8) Tobacco abuse Impression: She has a history of tobacco use, she tells me her last cigarette was around the first week of April.
[2022-05-12] MEDS: HYDROmorphone 1 MG/ML CARPUJECT IVP PRN ×2 (14:23→22:42)
[2022-05-12] MEDS ORDERED: INSULIN LISPRO 300 UNIT/3 ML PEN SUBQ SCH (17:00)
[2022-05-12] MEDS: ONDANSETRON ODT 4 MG TABLET TL PRN (18:57)
[2022-05-12] MEDS: SUCRALFATE 1 GM/10 ML UDC PO SCH (20:26)
[2022-05-13] MEDS: metroNIDAZOLE 500 MG/100 ML 500 MG/100 ML BAG IV SCH ×2 (01:13→08:10)
[2022-05-13] MEDS: SODIUM CHLORIDE FLUSH 0.9% 10 ML SYRINGE IVP SCH ×3 (01:14→17:43)
[2022-05-13] MEDS: SODIUM CHLORIDE 0.9% 1,000 ML IV SCH (03:15)
[2022-05-13] MEDS: PANTOPRAZOLE 40 MG TABLET PO SCH (06:51)
[2022-05-13 07:09] LABS: BASOPHILS % (AUTO) 0.6 %; EOSINOPHILS # (AUTO) 0.4 10^3/uL (0.0-0.7); EOSINOPHILS % (AUTO) 7.1 %; HCT - HEMATOCRIT 33.8 % (37.0-47.0); HGB - HEMOGLOBIN 10.8 g/dL (12.0-16.0); LYMPHOCYTES # (AUTO) 1.8 10^3/uL (1.5-3.5); LYMPHOCYTES % (AUTO) 34.7 %; MEAN CORPUSCULAR HEMOGLOBIN 32.7 pg (27.0-31.0); MEAN CORPUSCULAR VOLUME 102.4 fL (81.0-99.0); MEAN PLATELET VOLUME 10.3 fL (7.9-10.8); MONOCYTES # (AUTO) 0.5 10^3/uL (0.0-1.0); MONOCYTES % (AUTO) 9.2 %; NEUTROPHILS # (AUTO) 2.5 10^3/uL (1.5-6.6); NEUTROPHILS % (AUTO) 48.2 %; PLT - PLATELET COUNT 312 10^3/uL (130-450); RED CELL DISTRIBUTION WIDTH 13.4 % (12.0-15.0); WHITE BLOOD COUNT 5.1 x10^3/uL (4.8-10.8)
[2022-05-13 07:36] LABS: ALBUMIN 2.8 g/dL (3.2-5.5); ALKALINE PHOSPHATASE 71 IU/L (42-121); ALT ALANINE AMINOTRANSFERASE < 10 IU/L (10-60); AST ASPARTATE AMINOTRANSFERASE 17 IU/L (10-42); BILIRUBIN,TOTAL 0.3 mg/dL (0.2-1.0); BUN - BLOOD UREA NITROGEN < 5 mg/dL (6-20); CALCIUM 8.7 mg/dL (8.5-10.3); CARBON DIOXIDE - CO2 25 mmol/L (21-32); CHLORIDE 105 mmol/L (101-111); CREATININE 0.6 mg/dL (0.4-1.0); CRP - C-REACTIVE PROTEIN 2.1 mg/dL (0-1.0); GFR - MDRD 114 (>89); GLUCOSE 108 mg/dL (70-100); POTASSIUM 3.8 mmol/L (3.5-5.0); SODIUM 136 mmol/L (135-145); TOTAL PROTEIN 5.6 g/dL (6.7-8.2)
[2022-05-13] MEDS: NICOTINE 14 MG PATCH TOP SCH (07:59)
[2022-05-13] MEDS: LIPASE/PROTEASE/AMYLASE CAPSULE PO SCH ×3 (08:00→17:42)
[2022-05-13] MEDS: MULTIVITAMIN TABLET PO SCH (08:01)
[2022-05-13] MEDS: HEPARIN 5,000 UNIT/ML VIAL SUBQ SCH ×2 (08:05→20:34)
[2022-05-13] MEDS: cefTRIAXone 1 GM in SODIUM CHLORIDE 0.9% MINIBAG 100 ML IV SCH (09:10)
[2022-05-13] MEDS: HYDROmorphone 2 MG TABLET PO PRN ×2 (10:29→17:42)
[2022-05-13] MEDS: oxyCODONE 5 MG TABLET PO PRN ×2 (13:21→20:35)
--- NOTE | 2022-05-13 14:15 | PROVIDER PROGRESS NOTE ---
Subjective - Prog Note Date Prog Note Date: 05/13/22 Prog Note Time: 14:12 - Subjective Pt reports feeling: Improved Subjective: She says her pain is more more under controlled with the Dilaudid we are giving her. Yesterday she was asking for IV Dilaudid to control her pain. Today she is asking that the IV Dilaudid be discontinued and she will resort to just using oral. She is able to keep food down. She is not vomiting. She really does not like solid food and prefers liquid food. She denies chest pain, palpitations. No shortness of breath. No fever has been present. Labs of been steadily improving. Current Medications - Current Medications Current Medications: Active Medications Lipase/Protease/Amylase (Lipase/Protease/Amylase Capsule) 5 cap PO TIDWM [facility] Last Admin: 05/13/22 11:49 Dose: 5 cap Heparin Sodium (Porcine) (Heparin 5,000 Unit/Ml Vial) 5,000 unit SUBQ BID [facility] Last Admin: 05/13/22 08:05 Dose: 5,000 unit Hydromorphone HCl (Hydromorphone 2 Mg Tablet) 2 mg PO Q6H PRN PRN Reason: PAIN Last Admin: 05/13/22 10:29 Dose: 2 mg Ceftriaxone Sodium 1 gm/ (Sodium Chloride) 100 mls @ 200 mls/hr IV DAILY [facility] Last Infusion: 05/13/22 09:40 Dose: Infused Metronidazole (Flagyl 500 Mg/100 Ml) 500 mg in 100 mls @ 100 mls/hr IV Q8H [facility] Last Infusion: 05/13/22 09:10 Dose: Infused Sodium Chloride (Normal Saline 0.9%) 1,000 mls @ 100 mls/hr IV .Q10H [facility] Last Admin: 05/13/22 03:15 Dose: 100 mls/hr Multivitamins (Multivitamin Tablet) 1 tab PO DAILYWM [facility] Last Admin: 05/13/22 08:01 Dose: 1 tab Nicotine (Nicotine 14 Mg Patch) 1 patch TOP DAILY [facility] Last Admin: 05/13/22 07:59 Dose: 1 patch Ondansetron HCl (Ondansetron Odt 4 Mg Tablet) 4 mg TL Q6H PRN PRN Reason: Nausea / Vomiting Last Admin: 05/12/22 18:57 Dose: 4 mg Oxycodone HCl (Oxycodone 5 Mg Tablet) 5 mg PO Q6H PRN PRN Reason: PAIN Last Admin: 05/13/22 13:21 Dose: 5 mg Pantoprazole Sodium (Pantoprazole 40 Mg Tablet) 40 mg PO QDAC [facility] Last Admin: 05/13/22 06:51 Dose: 40 mg Acamprosate Calcium (333 Mg Tablet.) 1 each PO DAILY [facility] Last Admin: 05/13/22 09:08 Dose: Not Given Polyethylene Glycol (Polyethylene Glycol 3350 17 Gm Packet) 17 gm PO DAILY PRN PRN Reason: Constipation Promethazine HCl (Promethazine 25 Mg Tablet) 25 mg PO Q6HR PRN PRN Reason: Nausea / Vomiting Last Admin: 05/12/22 12:58 Dose: 25 mg Senna (Senna 8.6 Mg Tablet) 8.6 mg PO DAILY PRN PRN Reason: Constipation Sodium Chloride (Sodium Chloride Flush 0.9% 10 Ml Syringe) 10 ml IVP PRN PRN PRN Reason: NEEDED PER PROVIDER ORDERS Sodium Chloride (Sodium Chloride Flush 0.9% 10 Ml Syringe) 10 ml IVP 0100,0900,1700 [facility] Last Admin: 05/13/22 09:08 Dose: Not Given Sucralfate (Sucralfate 1 Gm/10 Ml Udc) 1 gm PO QPM [facility] Last Admin: 05/12/22 20:26 Dose: 1 gm Lipase/Protease/Amylase [Frank Dr 24,000 Unit Capsule] 24,000 unit PO TIDWM 04/08/22 Acetaminophen [Tylenol] 650 mg PO Q6H PRN 04/09/22 Loratadine [Claritin] 10 mg PO DAILY PRN 04/09/22 Sucralfate [Carafate] 1 gm PO QPM 04/09/22 Acamprosate Calcium 1 tab PO DAILY 05/04/22 Promethazine [Phenergan] 25 mg PO Q6HR PRN 05/04/22 Sennosides/Docusate Sodium [Senna-S 8.6-50 mg Tablet] 1 tab PO DAILY PRN 05/04/22 polyethylene glycoL 3350 [Miralax] 17 gm PO DAILY PRN 05/04/22 Objective - Vital Signs/Intake & Output Reviewed Vital Signs: Yes Vital Signs: Vital Signs x48h Temp Pulse Resp BP BP Pulse Ox 05/13/22 13:00 102 H 16 120/80 99 05/13/22 07:28 37.0 C 87 16 130/81 H 99 05/13/22 06:18 36.8 C 78 16 120/89 H 98 Intake & Output: Intake & Output 05/10/22 05/11/22 05/12/22 05/13/22 23:59 23:59 23:59 23:59 Intake Total 1000 3457.500 5090 1300.000 Output Total 1 Balance 1000 3456.500 5090 1300.000 - Objective General Appearance: positive: No acute distress, Alert, Other (I saw her 2 times this morning. Once around 7:30 in the morning and the other around 10:30 in the morning. Both times she was fast asleep. Comfortable. Saw her again around noon time. She was up, had eaten clear liquids. Nauseated and achy and still has some mild abdominal pain but she felt th) Eyes Bilateral: positive: PERRL, EOMI ENT: positive: No signs of dehydration Neck: positive: Stiff neck Respiratory: positive: No respiratory distress. negative: Wheezes, Rales, Rhonchi Cardiovascular: positive: Regular rate & rhythm. negative: Gallop/S4 Abdomen: positive: No organomegaly, Nml bowel sounds, Tenderness Skin: positive: Warm, Dry Extremities: positive: Full ROM, No pedal edema Neurologic/Psychiatric: positive: Oriented x3, CN's nml (2-12), Motor nml - Lab Results Fish Bones: 05/13/22 06:25 05/13/22 06:25 Other Labs: Lab Results x24hrs 05/13/22 05/13/22 Range/Units 06:25 06:25 WBC 5.1 (4.8-10.8) x10^3/uL RBC 3.30 L (4.20-5.40) 10^6/uL Hgb 10.8 L (12.0-16.0) g/dL Hct 33.8 L (37.0-47.0) % MCV 102.4 H (81.0-99.0) fL MCH 32.7 H (27.0-31.0) pg MCHC 32.0 (32.0-36.0) g/dL RDW 13.4 (12.0-15.0) % Plt Count 312 (130-450) 10^3/uL MPV 10.3 (7.9-10.8) fL Neut # (Auto) 2.5 (1.5-6.6) 10^3/uL Lymph # (Auto) 1.8 (1.5-3.5) 10^3/uL [place] # (Auto) 0.5 (0.0-1.0) 10^3/uL Eos # (Auto) 0.4 (0.0-0.7) 10^3/uL Baso # (Auto) 0.0 (0.0-0.1) 10^3/uL Absolute Nucleated RBC 0.00 x10^3/uL Nucleated RBC % 0.0 /100WBC Sodium 136 (135-145) mmol/L Potassium 3.8 (3.5-5.0) mmol/L Chloride 105 (101-111) mmol/L Carbon Dioxide 25 (21-32) mmol/L Anion Gap 6.0 (6-13) BUN < 5 L (6-20) mg/dL Creatinine 0.6 (0.4-1.0) mg/dL Estimated GFR (MDRD) 114 (>89) Glucose 108 H (70-100) mg/dL Calcium 8.7 (8.5-10.3) mg/dL Total Bilirubin 0.3 (0.2-1.0) mg/dL AST 17 (10-42) IU/L ALT < 10 L (10-60) IU/L Alkaline Phosphatase 71 (42-121) IU/L C-Reactive Protein 2.1 H (0-1.0) mg/dL Total Protein 5.6 L (6.7-8.2) g/dL Albumin 2.8 L (3.2-5.5) g/dL Globulin 2.8 (2.1-4.2) g/dL Albumin/Globulin Ratio 1.0 (1.0-2.2) ABX Reporting Has patient been on IV antibiotics over the past 48 hours?: Yes Sepsis Event Note (H) - Evaluation Current Stage of Sepsis: Ruled out Assessment/Plan - Problem List (1) Intractable abdominal pain Impression: Nancy presented to the ED with intractable abdominal pain with associated nausea and vomiting. She had been vomiting for four days at home, unable to eat anything. Of note, she has a pancreatic pseudocyst on the the head of her pancreas. When her pancreatitis flares, the pseudocyst has caused her gastric outlet obstruction. She has frequent episodes of pancreatitis with her history of alcohol abuse. In the ED she received a phone call from another facility that her urine was positive for E. coli. Urinalysis on 05/10 showed elevated specific gravity, proteinuria of 100, small amounts of leukocyte esterase, moderate bacteria, many squamous cells. on 05/11 her urinalysis was negative with elevated specific gravity and proteinuria at 30. She was started on Rocephin and metronidazole. She was given Oxycodone 5mg PO prn q6h and Dilaudid 2mg PO prn q6h in the ED to manage her pain. It seems to be under control now. On May 12 she was asking for IV Dilaudid. She received a few doses and she feels like her pain is now under control that she is asking IV Dilaudid be discontinued. In view of the fact that her lipase is now normal. Vitals are normal. White cell count is normal, I do believe she can go home tomorrow morning. Expectation must be set that she will have pain present for the next few months as her pancreatitis slowly resolves and her pseudocyst stabilizes. Emphasis on clear liquids, avoiding fats, small meals to prevent recurrent pancreatitis. Plan Continue oxycodone p.o. and Dilaudid p.o. depending on moderate or severe pain (2) Pancreatic pseudocyst Impression: She has a chronic pancreatic pseudocyst that is difficult to get to. She was transferred from here on April 16, discharged from on April 25. Her pseudocyst is at the head of the pancreas and intermittently sits on her duodenum causing gastric outlet obstruction. does not feel it is increasing in size and relatively stable over several CTs. Her pain was managed by IV opioids and gradually decreased and she was switched to PO opioids at discharge. She was discharged to follow up with Dr. Edson Bautista at [facility] gastroenterology. I spoke with him on 05/11 and he said she is in a difficult position. Her pseudocyst is difficult to get to and complicated by her alcohol use. His hope is that she will stop drinking, the psuedocyst will harden, and she may have to be surgically opened to remove it. Her appointment with him was on 05/08, he had her evaluated at the ER because her pain was so bad. She was given morphine in the ER and sent home. She was home 05/09, 05/10 before coming to our ER 05/11. Plan - continue oxycodone and dilauded PO prn for pain management . She will follow- up with the business supervisor at her regularly scheduled appointment. He will continue to follow her for the pseudocyst and determine when it can be drained by either IR or general surgery. (3) Recurrent pancreatitis Impression: She has been seen several times in the ED for recurrent pancreatitis and upper abdominal pain with associated nausea, vomiting and history of alcohol abuse. Her lipase on 05/10 was 63, 05/11 was 42. From a pancreatitis flare, her labs indicate that she is resolved right now. It is still difficult to distinguish whether her pain is from pancreatitis or the pseudocyst. Nevertheless I think she has been stabilized is much as we can. Regular see how she does off IV Dilaudid and discharge home tomorrow. She is on rocephin and flagyl for the pancreatitis. (4) UTI (urinary tract infection) Impression: In the ED she received a phone call from another facility that her urine was positive for E. coli. Urinalysis on 05/10 showed elevated specific gravity, proteinuria of 100, small amounts of leukocyte esterase, moderate bacteria, many squamous cells. on 05/11 her urinalysis was negative with elevated specific gravity and proteinuria at 30. She was started on Rocephin 05/11 in the ED. Flagyl was added for the pancreatitis. Plan Stop IV medication and switch to Levaquin. She is day #3 antibiotics. 4 more days of Levaquin for total of 7 days Qualifiers: Urinary tract infection type: acute cystitis Hematuria presence: without hematuria Qualified Code(s): N30.00 - Acute cystitis without hematuria (5) Nausea and vomiting Impression: Nausea and vomiting is controlled at this time with pain management and phenergan. Plan - contiue phenergan 25mg PO q6hr prn (6) GERD (gastroesophageal reflux disease) Impression: History of GERD managed by famotidine 20mg BID. (7) Alcoholism in recovery Impression: She has recurrent pancreatitis likely from her alcohol abuse. She tells me that she has not had a drink in 5 weeks, and she has been in contact with an floor specialist at for her alcohol use. She intends to stay sober. (8) Tobacco abuse Impression: She has a history of tobacco use, she tells me her last cigarette was around the first week of April.
--- NOTE | 2022-05-13 19:55 | Discharge Plan ---
Discharge Plan Problem Reviewed?: Yes Diet: Soft (Try doing clear liquid diet with protein boost. If you are going to eat solid food, be very low-fat, easily digestible and in very small amounts.) Activity Restrictions: Activity as Tolerated Shower Restrictions: No Driving Restrictions: No No Smoking: If you smoke, Please STOP! Call for help. <ReeseMamie zafar - Last Filed: 05/13/22 19:35> Problem Reviewed?: Yes Diet: Soft Activity Restrictions: Activity as Tolerated Shower Restrictions: No Driving Restrictions: No No Smoking: If you smoke, Please STOP! Call for help. <Deborah Ortiz - Last Filed: 05/14/22 08:12> Disposition: 01 Home, Self Care Condition: Fair Prescriptions: levoFLOXacin [Levaquin] 500 mg PO DAILY #3 tab Health Concerns: You returned to the hospital with yet another episode of intractable abdominal pain with relation to chronic recurrent pancreatitis. With your last admission we did transfer you to [facility] because we thought your pancreatic cyst was getting infected and that it was causing gastric outlet obstruction. In other words, you were eating but food could not get past your stomach into your small bowel because the cyst was pressing on your stomach from the outside inward, and blocking food from going down. [facility] feels that you do not need an intervention at this time. But you continue to have abdominal pain that waxes and wanes. You were seen by your Youth Program Director the day before . He sent you to the ER, and then you went home. But you continue to be miserable with pain and then decided to come to our ER. We have been feeding you clear liquids, and very small amounts of food. Since eating solid food is very difficult for you, we think that is going to be an issue for the next few months. We also are worried that you are developing an opioid (narcotic) tolerance and addiction, because you are requiring so many doses of Dilaudid or Oxycodone to control your pain. After a few days of clear liquids, IV hydration, medicines to stop your nausea, and intravenous opioid pain medication, you feel stable enough to go home. Plan of Treatment: 1. Please follow through with seeing your research quality assurance specialist at [facility], for alcohol abuse. Please also discuss that we are worried about opioid tolerance leading down the road to addiction. See if you can get any techniques from them about how to avoid this. 2. Please follow-up with the primary care provider in the next 1 to 2 weeks. You have identified Agnes Leblanc as your new provider. You will be getting refills of your opioids from her. 3. Since eating solid food seems to bring on the pain, consider going on a liquid diet. That would mean taking things like Boost, Pro-Stat Sugar Free protein, Ensure clear, Ensure diabetic, etc. If you do a liquid diet, make sure that you are eating enough calories. Look at the side of the can to figure out how many calories it contains, and you need to be eating at least 1200 tonny a day. 4. If you are going to be eating solid food, make sure you take Creon with food. 5. Several more days of Levaquin antibiotic have been ordered for you. Care Goals: Right now your care goals center around getting through alcohol addiction and chronic alcohol abuse that is causing pancreatitis. Your second goal is to get through pancreatitis and the pseudocyst. Eventually the pseudocyst of your pancreatic head will need to be drained. Make sure you follow through with what Gastroenterology recommends for you. Assessment: Patient is alert, oriented, not vomiting, able to tolerate clear liquids. Follow-up with: Sylwia Leblanc ARNP [Credentialed Staff Provider] -
[2022-05-13] MEDS: SUCRALFATE 1 GM/10 ML UDC PO SCH (20:35)
[2022-05-14] MEDS: HYDROmorphone 2 MG TABLET PO PRN (00:22)
[2022-05-14] MEDS: SODIUM CHLORIDE FLUSH 0.9% 10 ML SYRINGE IVP SCH ×2 (00:25→09:41)
[2022-05-14 05:10] LABS: BASOPHILS % (AUTO) 0.6 %; EOSINOPHILS # (AUTO) 0.3 10^3/uL (0.0-0.7); EOSINOPHILS % (AUTO) 6.1 %; HCT - HEMATOCRIT 35.3 % (37.0-47.0); HGB - HEMOGLOBIN 11.5 g/dL (12.0-16.0); LYMPHOCYTES # (AUTO) 1.9 10^3/uL (1.5-3.5); LYMPHOCYTES % (AUTO) 39.2 %; MEAN CORPUSCULAR HEMOGLOBIN 33.8 pg (27.0-31.0); MEAN CORPUSCULAR HGB CONC 32.6 g/dL (32.0-36.0); MEAN CORPUSCULAR VOLUME 103.8 fL (81.0-99.0); MEAN PLATELET VOLUME 10.3 fL (7.9-10.8); MONOCYTES # (AUTO) 0.5 10^3/uL (0.0-1.0); MONOCYTES % (AUTO) 9.5 %; NEUTROPHILS # (AUTO) 2.2 10^3/uL (1.5-6.6); NEUTROPHILS % (AUTO) 44.6 %; PLT - PLATELET COUNT 298 10^3/uL (130-450); RED CELL DISTRIBUTION WIDTH 13.7 % (12.0-15.0)
[2022-05-14 05:33] LABS: ALBUMIN 2.7 g/dL (3.2-5.5); ALBUMIN/GLOBULIN RATIO 0.8 (1.0-2.2); ALKALINE PHOSPHATASE 85 IU/L (42-121); ALT ALANINE AMINOTRANSFERASE 11 IU/L (10-60); AST ASPARTATE AMINOTRANSFERASE 18 IU/L (10-42); BILIRUBIN,TOTAL 0.4 mg/dL (0.2-1.0); BUN - BLOOD UREA NITROGEN < 5 mg/dL (6-20); CALCIUM 8.8 mg/dL (8.5-10.3); CARBON DIOXIDE - CO2 23 mmol/L (21-32); CHLORIDE 104 mmol/L (101-111); CREATININE 0.6 mg/dL (0.4-1.0); CRP - C-REACTIVE PROTEIN 1.4 mg/dL (0-1.0); GFR - MDRD 114 (>89); GLUCOSE 111 mg/dL (70-100); POTASSIUM 3.5 mmol/L (3.5-5.0); SODIUM 136 mmol/L (135-145); TOTAL PROTEIN 5.9 g/dL (6.7-8.2)
[2022-05-14] MEDS: oxyCODONE 5 MG TABLET PO PRN (06:07)
[2022-05-14] MEDS: PANTOPRAZOLE 40 MG TABLET PO SCH (06:07)
[2022-05-14] MEDS: LIPASE/PROTEASE/AMYLASE CAPSULE PO SCH (07:54)
[2022-05-14] MEDS: NICOTINE 14 MG PATCH TOP SCH (07:56)
[2022-05-14] MEDS: MULTIVITAMIN TABLET PO SCH (07:56)
[2022-05-14 08:40] VITALS: BP 131/85
[2022-05-14] MEDS ORDERED: levoFLOXacin 250 MG TABLET PO SCH (09:00)
[2022-05-14] MEDS: HEPARIN 5,000 UNIT/ML VIAL SUBQ SCH (09:38)
--- NOTE | 2022-05-14 12:35 | DISCHARGE SUMMARY ---
Discharge Summary Admit Date: 05/11/22 Discharge Date: 05/14/22 Discharging Provider: Dr Deborah Ortiz Primary Care Provider: LEIA Munguia Condition at Discharge: Fair Discharge Disposition: 01 Home, Self Care - HPI History of Present Illness: This pt presents with worsening abd pain x 2 days, with nausea and vomiting, with h/o same, when she was diagnosed with pancreatitis. pt has h/o frequent episodes and was recently hospitalized for same, without any interventions. h/o etoh abuse, which has contributed to her pancreatitis, but she stopped drinking more than a month ago. she still smokes cannabis occasionally and is trying to cut back on smoking cigarettes (smokes 3-4 cigarettes daily), with last use more than 1 wk ago. she had a UA done at another facility a few days ago, but while she waiting for come to ER this evening, she was called by the other facility and told that E.coli was growing in her urine. she denies diarrhea and states feeling constipated. denies dysuria or hematuria. no fevers but feels chills. no chest pain or sob. she has not eaten much over last few days d/t nausea / vomiting. Patient stayed in the emergency room since we had no beds. She is now able to be transferred to [facility] floor. I was able to review her documents from [facility]. She was transferred from here on April 16, discharged from April 25. She has a chronic pancreatic pseudocyst that is going to be difficult to get to. It is at the head of the pancreas and intermittently sits on her duodenum causing gastric outlet obstruction. does not feel it is increasing in size and relatively stable over several CTs. Her pain was managed with IV opioids and gradually decreased and she was switched to po opiods at discharge. She was discharged to follow-up with Dr. Edson Bautista at [facility] gastroenterology. She did keep her appointment with him on May 08. I spoke to him tonight. He is actually on-call for [facility] gastroenterology. He said that she is in a very difficult position. Her pseudocyst is very difficult to get to by interventional radiology. If she cannot stop drinking, and continues to have really inflamed pancreatitis it would be catastrophic. His hope that is that she will stop drinking, harden off that pseudocyst and she may have to be surgically opened to get to that pseudocyst. He actually had her evaluated in the emergency room the same day as his clinic visit because she was in so much pain. She received morphine in the emergency room, felt better, and then went home. So she was able to be at home May 09, May 10 before she came to our ER May 11. In addition to Dr. Bautista, she is supposed to follow-up with Crista Powell-ELIANE, addiction medicine @ [facility] for her alcoholism. And to follow-up with a PCP, Celine Munguia at [facility]. - HOSPITAL COURSE Hospital Course: (1) Intractable abdominal pain Nancy presented to the ED with intractable abdominal pain with associated nausea and vomiting. She had been vomiting for four days at home, unable to eat anything. Of note, she has a pancreatic pseudocyst on the the head of her pancreas. When her pancreatitis flares, the pseudocyst has caused her gastric outlet obstruction. She has frequent episodes of pancreatitis with her history of alcohol abuse. In the ED she received a phone call from another facility that her urine was positive for E. coli. Urinalysis on 05/10 showed elevated specific gravity, proteinuria of 100, small amounts of leukocyte esterase, moderate bacteria, many squamous cells. on 05/11 her urinalysis was negative with elevated specific gravity and proteinuria at 30. She was started on Rocephin and Metronidazole. She was given Oxycodone PO and Dilaudid PO to manage her pain and hospitalized until she had pain control, which was with staying on a liquid diet.. Expectation must be set that she will have pain present for the next few months as her pancreatitis slowly resolves and her pseudocyst stabilizes. Emphasis should be on taking in clear liquids, avoiding fats, and having small meals to prevent recurrent pancreatitis. (2) Pancreatic pseudocyst She has a chronic pancreatic pseudocyst that is difficult to get to. She was transferred from here to on April 16, discharged from on April 25. Her pseudocyst is at the head of the pancreas and intermittently sits on her duodenum causing gastric outlet obstruction. [facility] does not feel it is increasing in size and relatively stable over several CTs. Her pain was managed by IV opioids and gradually decreased and she was switched to PO opioids at discharge. She was discharged to follow up with Dr. Edson Bautista at [facility] gastroenterology. Hospitalist spoke with Dr Bautista on 05/11 and he said she is in a difficult position. Her pseudocyst is difficult to get to and complicated by her alcohol use. His hope is that she will stop drinking, the psuedocyst will harden, and she may have to be surgically opened to remove it. Her appointment with him was on 05/08, but he had her evaluated at the ER because her pain was so bad. She was given morphine in the ER and sent home. She was home 05/09, 05/10 before coming to our ER 05/11. (3) Chronic recurrent pancreatitis She has been seen several times in the ED for recurrent pancreatitis and upper abdominal pain with associated nausea, vomiting and history of alcohol abuse. Her lipase on 05/10 was 63, 05/11 was 42; her labs indicate that it is resolved right now. It is still difficult to distinguish whether her pain is from pancreatitis or the pseudocyst. (4) UTI (urinary tract infection) In the ED she received a phone call from another facility that her urine was positive for E. coli. Urinalysis on 05/10 showed elevated specific gravity, proteinuria of 100, small amounts of leukocyte esterase, moderate bacteria, many squamous cells. on 05/11 her urinalysis was negative with elevated specific gravity and proteinuria at 30. She was started on Rocephin 05/11 in the ED. Flagyl was added for the pancreatitis. We then stopped IV medication and switched her to Levaquin. She is to have 4 more days of Levaquin for total of 7 days (5) Nausea and vomiting Nausea and vomiting was controlled with pain management and IV Phenergan. (6) GERD (gastroesophageal reflux disease) History of GERD, was managed with famotidine 20mg BID. (7) RAY At admission, her BUN/creat were 29/2.7. After iv hydration, at discharge, her BUN/creat were <5/0.6. (8) Alcoholism in recovery She has recurrent pancreatitis likely from her alcohol abuse. She stated that she has not had a drink in 5 weeks, and she has been in contact with an clinical services specialist at for her alcohol use. She intends to stay sober. (9) Tobacco abuse She has a history of tobacco use, she said her last cigarette was around the first week of April (2.5 weeks ago). - ALLERGIES Allergies/Adverse Reactions: Allergies Allergy/AdvReac Type Severity Reaction Status Date / Time No Known Drug Allergies Allergy Verified 05/10/22 20:55 - MEDICATIONS Home Medications: Ambulatory Orders Medication Instructions Recorded Confirmed Pantoprazole [Protonix] 40 mg PO DAILY 30 Days #30 tablet 03/13/22 05/10/22 HYDROmorphone [Dilaudid] 2 mg PO Q6H PRN #20 tablet 04/08/22 05/10/22 LORazepam [Ativan] 1 mg PO Q6H PRN #15 tablet 04/08/22 05/10/22 Lipase/Protease/Amylase [Creon Dr 24,000 unit PO TIDWM 04/08/22 05/10/22 24,000 Unit Capsule] Ondansetron Odt [Zofran Odt] 4 mg TL Q6H PRN #15 tablet 04/08/22 05/10/22 Acetaminophen [Tylenol] 650 mg PO Q6H PRN 04/09/22 05/10/22 Loratadine [Claritin] 10 mg PO DAILY PRN 04/09/22 05/10/22 Sucralfate [Carafate] 1 gm PO QPM 04/09/22 05/10/22 Acamprosate Calcium 1 tab PO DAILY 05/04/22 05/10/22 Promethazine [Phenergan] 25 mg PO Q6HR PRN 05/04/22 05/10/22 Sennosides/Docusate Sodium 1 tab PO DAILY PRN 05/04/22 05/10/22 [Senna-S 8.6-50 mg Tablet] polyethylene glycoL 3350 [Miralax] 17 gm PO DAILY PRN 05/04/22 05/10/22 Famotidine [Pepcid] 20 mg PO BID #20 tablet 05/05/22 05/10/22 Multivitamin [Theragran] 1 tab PO DAILYWM tab 05/13/22 Nicotine 14 mg Patch [Nicoderm] 1 patch TOP DAILY patch 05/13/22 levoFLOXacin [Levaquin] 500 mg PO DAILY #3 tab 05/13/22 - PHYSICAL EXAM AT DISCHARGE General Appearance: positive: No acute distress, Alert Eyes Bilateral: positive: Normal inspection, EOMI ENT: positive: ENT inspection nml, No signs of dehydration Neck: positive: Nml inspection, No JVD Respiratory: positive: No respiratory distress Cardiovascular: positive: Regular rate & rhythm Abdomen: positive: Non-tender, Nml bowel sounds, Other (Obese) Skin: positive: Warm, Dry Extremities: positive: Non-tender, No pedal edema Neurologic/Psychiatric: positive: Oriented x3, Motor nml - LABS Result Diagrams: 05/14/22 04:53 05/14/22 04:53 - SEPSIS Current Stage of Sepsis: Ruled out - FOLLOW UP Follow Up: Keep appointments as described in Hospital Course above. - TIME SPENT Time Spent in Discharge (Minutes): 30
== END 2022-05-14 12:15 | disposition home or self-care (01) ==
LOC: EDUNIT# → ED 20:48 → MS2 05-11 01:01
PROVIDERS: ADMIT Student in an Organized Health Care Education/Training Program; ATTEND Internal Medicine
DX: K86.3 Pseudocyst of pancreas (principal); K85.20 Alcohol induced acute pancreatitis without necrosis or infection; K86.0 Alcohol-induced chronic pancreatitis; F10.20 Alcohol dependence, uncomplicated; N30.00 Acute cystitis without hematuria; B96.20 Unspecified Escherichia coli [E. coli] as the cause of diseases classified elsewhere; K21.9 Gastro-esophageal reflux disease without esophagitis; N17.9 Acute kidney failure, unspecified; K31.1 Adult hypertrophic pyloric stenosis; F17.210 Nicotine dependence, cigarettes, uncomplicated; Z20.822 Contact with and (suspected) exposure to COVID-19; R11.2 Nausea with vomiting, unspecified; R73.9 Hyperglycemia, unspecified; D75.839 Thrombocytosis, unspecified; F41.9 Anxiety disorder, unspecified; F32.A Depression, unspecified
CPT/HCPCS: 36415; 51701; 74176; 80053; 81001; 81025; 83036; 83605; 83690; 85025; 86140; 87635; 93975; 96361; 96365; 96366; 96367; 96368; 96372; 96375; 96376; 99284; 99285; A9270; G0378; J1170; J7120; Q0162; Q0169; 81003; 87086

== ENCOUNTER 2022-06-28 11:21 | Outpatient (CLI) | payer MEDICAID | END 2022-06-28 23:59 | disposition critical access hospital (66) | LOC: EMS 11:21 | DX: S09.90XA Unspecified injury of head, initial encounter (principal); M54.2 Cervicalgia; M54.9 Dorsalgia, unspecified; W10.9XXA Fall (on) (from) unspecified stairs and steps, initial encounter; Y92.009 Unspecified place in unspecified non-institutional (private) residence as the place of occurrence of the external cause | CPT/HCPCS: A0425; A0427; A0999 ==

== ENCOUNTER 2022-06-28 11:45 | Emergency (ER) | payer MEDICAID ==
[2022-06-28 11:55] VITALS: BP 126/105
[2022-06-28] MEDS ORDERED: HYDROmorphone 1 MG/ML CARPUJECT IVP STA (12:01)
--- NOTE | 2022-06-28 12:07 | ED Physician Documentation ---
PD HPI MAJOR TRAUMA - Stated complaint Stated Complaint: FALL / BACK/NECK PX - Chief complaint Chief Complaint: Trauma Hd/Nk - History obtained from History obtained from: Patient - Additional information Additional information: 36-year-old woman with history of alcoholic pancreatitis but says she has been sober lately was going down the stairs at home and slipped and fell down several stairs hitting her head and back. She has a severe headache, significant neck pain and back pain. No arm or leg injury. No chest or belly injury. No possibility of . She has not been drinking lately, but notes that her sister keep nu [employer] in her fridge. And drank 1 this morning noting that it might of been a white claw. Review of Systems Eyes: denies: Loss of vision Nose: denies: Epistaxis Cardiac: denies: Chest pain / pressure Respiratory: denies: Dyspnea GI: denies: Abdominal Pain : denies: Now EGA Neurologic: reports: Headache, Head injury. denies: Generalized weakness, Focal weakness, Syncope, LOC PD PAST MEDICAL HISTORY - Past Medical History Cardiovascular: None Respiratory: None Neuro: Headaches Endocrine/Autoimmune: None GI: GERD, Ulcers, Pancreatitis, Cholelithiasis LIQUOR COMMISSIONER: None : Kidney stones HEENT: None Psych: Depression, Anxiety, Panic attacks Musculoskeletal: None Derm: None - Past Surgical History Past Surgical History: Yes /LIQUOR COMMISSIONER: Other HEENT: Tonsil/Adenoidectomy - Present Medications Home Medications: Ambulatory Orders Medication Instructions Recorded Confirmed Pantoprazole [Protonix] 40 mg PO DAILY 30 Days #30 tablet 03/13/22 05/10/22 HYDROmorphone [Dilaudid] 2 mg PO Q6H PRN #20 tablet 04/08/22 05/10/22 LORazepam [Ativan] 1 mg PO Q6H PRN #15 tablet 04/08/22 05/10/22 Lipase/Protease/Amylase [Creon Dr 24,000 unit PO TIDWM 04/08/22 05/10/22 24,000 Unit Capsule] Ondansetron Odt [Zofran Odt] 4 mg TL Q6H PRN #15 tablet 04/08/22 05/10/22 Acetaminophen [Tylenol] 650 mg PO Q6H PRN 04/09/22 05/10/22 Loratadine [Claritin] 10 mg PO DAILY PRN 04/09/22 05/10/22 Sucralfate [Carafate] 1 gm PO QPM 04/09/22 05/10/22 Acamprosate Calcium 1 tab PO DAILY 05/04/22 05/10/22 Promethazine [Phenergan] 25 mg PO Q6HR PRN 05/04/22 05/10/22 Sennosides/Docusate Sodium 1 tab PO DAILY PRN 05/04/22 05/10/22 [Senna-S 8.6-50 mg Tablet] polyethylene glycoL 3350 [Miralax] 17 gm PO DAILY PRN 05/04/22 05/10/22 Famotidine [Pepcid] 20 mg PO BID #20 tablet 05/05/22 05/10/22 Multivitamin [Theragran] 1 tab PO DAILYWM tab 05/13/22 Nicotine 14 mg Patch [Nicoderm] 1 patch TOP DAILY patch 05/13/22 levoFLOXacin [Levaquin] 500 mg PO DAILY #3 tab 05/13/22 - Allergies Allergies/Adverse Reactions: Allergies Allergy/AdvReac Type Severity Reaction Status Date / Time No Known Drug Allergies Allergy Verified 06/28/22 11:54 - Social History Does the pt smoke?: Yes Smoking Status: Current some day smoker Does the pt drink ETOH?: Yes Does the pt have substance abuse?: Yes - Immunizations Immunizations are current?: Yes - POLST Patient has POLST: No POLST Status: Full Code PD ED PE NORMAL - Vitals Vital signs reviewed: Yes - General General: Alert and oriented X 3, No acute distress, Other (Initially in a c-col lar and on a backboard, logrolled off backboard during exam but C-spine precautions maintained pending imaging.) - HEENT HEENT: PERRL, EOMI (With mild nystagmus horizontally) - Neck Neck: Other (Diffuse C-spine tenderness without focal tenderness. Seems worse higher up. C-collar maintained pending imaging.) - Cardiac Cardiac: RRR, No murmur - Respiratory Respiratory: No respiratory distress, Clear bilaterally - Abdomen Abdomen: Normal bowel sounds, Soft, Non tender - Back Back: No CVA TTP, Other (There is some low T and high L-spine tenderness. 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, No motor deficit, No sensory deficit Eye Opening: Spontaneous Motor: Obeys Commands Verbal: Oriented GCS Score: 15 - Psych Psych: Normal mood, Normal affect Results - Vitals Vitals: Vital Signs - 24 hr 06/28/22 11:51 Temperature 36.8 C Heart Rate 110 H Respiratory 14 Rate Blood Pressure 126/105 H O2 Saturation 98 Oxygen O2 Source Room air - Labs Labs: Laboratory Tests 06/28/22 06/28/22 06/28/22 12:10 12:10 12:10 WBC 6.8 RBC 3.94 L Hgb 12.9 Hct 38.3 MCV 97.2 MCH 32.7 H MCHC 33.7 RDW 14.6 Plt Count 235 MPV 10.4 Neut # (Auto) 4.2 Lymph # (Auto) 2.1 [place] # (Auto) 0.5 Eos # (Auto) 0.0 Baso # (Auto) 0.1 Absolute Nucleated RBC 0.00 Nucleated RBC % 0.0 PT 10.6 INR 0.9 Sodium 131 L Potassium 3.2 L Chloride 94 L Carbon Dioxide 22 Anion Gap 15.0 H BUN 8 Creatinine 0.8 Estimated GFR (MDRD) 82 L Glucose 126 H Calcium 9.4 Total Bilirubin 1.0 AST 22 ALT 17 Alkaline Phosphatase 104 Total Protein 7.9 Albumin 4.6 Globulin 3.3 Albumin/Globulin Ratio 1.4 Lipase 130 H Ethyl Alcohol 102.4 PD Medical Decision Making - ED course ED course: CT of the head, cervical spine, thoracic spine, and lumbar spine are interpreted independently by me and also the final reads are reviewed without evidence of acute trauma. CBC is reviewed and unremarkable. INR is reviewed and unremarkable. Chemistry panel is reviewed and notable for mild hyponatremia and hypokalemia with modest elevation of her lipase level. Blood alcohol level was reviewed and notable for a blood alcohol of 102. C-collar was removed at 12:58 PM. Departure - Departure Disposition: 01 Home, Self Care Clinical Impression: Fall down stairs Qualifiers: Encounter type: initial encounter Qualified Code(s): W10.8XXA - Fall (on) (fr om) other stairs and steps, initial encounter Alcohol intoxication Qualifiers: Complication of substance-induced condition: uncomplicated Qualified Code(s): F10.920 - Alcohol use, unspecified with intoxication, uncomplicated Low back pain Qualifiers: Chronicity: acute Back pain laterality: midline Sciatica presence: without sciatica Qualified Code(s): M54.50 - Low back pain, unspecified Injury of head and neck Qualifiers: Encounter type: initial encounter Qualified Code(s): S09.90XA - Unspecified injury of head, initial encounter; S19.9XXA - Unspecified injury of neck, initial encounter Condition: Stable Record reviewed to determine appropriate education?: Yes Instructions: ED Contusion Back, ED Alcohol Intoxication, ED Head Injury Closed Comments: You are seen today for a fall down the stairs, we did note that your blood alcohol level was 102. This is consistent with approximately 4 drinks. Were negative for any evidence of serious trauma. CAT scans of the head, cervical, thoracic, and lumbar spines abstain from alcohol. Take it easy the rest of the day. You can use ibuprofen and ice and heat as needed for the pain. Return for new or worsening symptoms. Follow-up with your doctor on Friday for recheck.
[2022-06-28 12:16] LABS: BASOPHILS # (AUTO) 0.1 10^3/uL (0.0-0.1); BASOPHILS % (AUTO) 0.7 %; EOSINOPHILS % (AUTO) 0.3 %; HCT - HEMATOCRIT 38.3 % (37.0-47.0); HGB - HEMOGLOBIN 12.9 g/dL (12.0-16.0); LYMPHOCYTES # (AUTO) 2.1 10^3/uL (1.5-3.5); LYMPHOCYTES % (AUTO) 30.7 %; MEAN CORPUSCULAR HEMOGLOBIN 32.7 pg (27.0-31.0); MEAN CORPUSCULAR HGB CONC 33.7 g/dL (32.0-36.0); MEAN CORPUSCULAR VOLUME 97.2 fL (81.0-99.0); MEAN PLATELET VOLUME 10.4 fL (7.9-10.8); MONOCYTES # (AUTO) 0.5 10^3/uL (0.0-1.0); MONOCYTES % (AUTO) 6.9 %; NEUTROPHILS # (AUTO) 4.2 10^3/uL (1.5-6.6); NEUTROPHILS % (AUTO) 61.3 %; PLT - PLATELET COUNT 235 10^3/uL (130-450); RED BLOOD COUNT 3.94 10^6/uL (4.20-5.40); RED CELL DISTRIBUTION WIDTH 14.6 % (12.0-15.0); WHITE BLOOD COUNT 6.8 x10^3/uL (4.8-10.8)
[2022-06-28 12:24] LABS: INR 0.9 (0.8-1.2); PT - PROTHROMBIN TIME 10.6 secs (9.9-12.6)
[2022-06-28 12:36] LABS: ALBUMIN 4.6 g/dL (3.2-5.5); ALBUMIN/GLOBULIN RATIO 1.4 (1.0-2.2); CALCIUM 9.4 mg/dL (8.5-10.3); CREATININE 0.8 mg/dL (0.4-1.0); ETOH - ETHANOL 102.4 mg/dL; POTASSIUM 3.2 mmol/L (3.5-5.0); TOTAL PROTEIN 7.9 g/dL (6.7-8.2)
--- NOTE | 2022-06-28 12:49 | CT Report ---
PROCEDURE: HEAD WO INDICATIONS: Head trauma, mod-severe TECHNIQUE: Noncontrast 4.5 mm thick angled axial sections acquired from the foramen magnum to the vertex. For r adiation dose reduction, the following was used: automated exposure control, adjustment of mA and/or kV according to patient size. COMPARISON: None. FINDINGS: Image quality: Excellent. CSF spaces: Basal cisterns are patent. No extra-axial fluid collections. Ventricles are normal in size and shape. Brain: No midline shift. No intracranial masses or hemorrhage. Cespedes-white matter interface is norm al. Skull and face: Calvarium and visualized facial bones are intact, without suspicious lesions. Sinuses: Visualized mastoids are clear. IMPRESSION: 1. No acute intracranial process. Reviewed by: Rocio Perry MD on 06/28/2022 12:47 PM PST Approved by: Rocio Perry MD on 06/28/2022 12:47 PM [facility] Station ID: [id number]
--- NOTE | 2022-06-28 12:50 | CT Report ---
PROCEDURE: CERVICAL SPINE WO INDICATIONS: Neck trauma, midline tenderness TECHNIQUE: Noncontrast 3 mm thick sections acquired from the skull base to the T4 level. Sagittal and coronal r eformats were then constructed. For radiation dose reduction, the following was used: automated exp osure control, adjustment of mA and/or kV according to patient size. COMPARISON: CT cervical spine 01/25/2021 FINDINGS: Image quality: Excellent. Bones: No fractures or dislocations. Visualized superior ribs are intact. Soft tissues: Prevertebral soft tissues are normal in thickness. No paravertebral hematomas. No ap ical pneumothoraces. IMPRESSION: No visualized fracture. Reviewed by: Rocio Perry MD on 06/28/2022 12:49 PM PST Approved by: Rocio Perry MD on 06/28/2022 12:49 PM PST Station ID: [id number]
--- NOTE | 2022-06-28 12:55 | CT Report ---
PROCEDURE: THORACIC SPINE WO INDICATIONS: Back injury, fall from height TECHNIQUE: Noncontrast 3 mm thick sections acquired through the region of interest in the thoracic spine. Sagit ken and coronal reformats were then constructed. For radiation dose reduction, the following was used : automated exposure control, adjustment of mA and/or kV according to patient size. COMPARISON: CT abdomen and pelvis 05/10/2022 FINDINGS: Image quality: Excellent. Bones: There is normal overall bony alignment. No acute vertebral body compression fractures. No s uspicious sclerotic or lytic bony lesions. Central spinal canal is of normal overall caliber. Soft tissues: No paravertebral masses or hematomas. Visualized posteromedial lungs appear clear. T here is a partially visualized low-attenuation focus seen partial U within the anterior abdomen on se rosio 2 image 165. It is seen more although still incompletely on CT lumbar spine. This appears to cor respond to large low-attenuation mass within the pancreatic head identified on 05/10/2022. IMPRESSION: No visualized fracture. Apparent persistence of previous pancreatic low-attenuation mass likely pseudocyst based on prior bianca ging. Reviewed by: Rocio Perry MD on 06/28/2022 12:53 PM PST Approved by: Rocio Perry MD on 06/28/2022 12:53 PM PST Station ID: [id number]
--- NOTE | 2022-06-28 12:57 | CT Report ---
PROCEDURE: LUMBAR SPINE WO INDICATIONS: Back injury, fall from height TECHNIQUE: Noncontrast 3 mm thick sections acquired from the T12 level to the sacrum. Sagittal and coronal refo rmats were constructed. For radiation dose reduction, the following was used: automated exposure co ntrol, adjustment of mA and/or kV according to patient size. COMPARISON: CT lumbar spine 06/28/2022, CT abdomen and pelvis 05/10/2022 FINDINGS: Image quality: Excellent. Bones: There is normal bony alignment. No acute vertebral body compression fractures. No suspiciou s lytic or blastic bony lesions. Central spinal caliber is of normal overall caliber. No pars defec ts. Soft tissues: No retroperitoneal masses or hematomas. Visualized aorta is normal in caliber. Incom pletely visualized low-attenuation mass within the region of the pancreatic head. This corresponds to previously present pseudocyst. IMPRESSION: No visualized fracture. Incompletely visualized low-attenuation mass within the pancreatic head corresponding to previously i dentified pseudocyst. Reviewed by: Rocio Perry MD on 06/28/2022 12:55 PM PST Approved by: Rocio Perry MD on 06/28/2022 12:55 PM PST Station ID: [id number]
== END 2022-06-28 13:15 | disposition home or self-care (01) ==
LOC: EDUNIT# → ED 11:45
DX: F10.920 Alcohol use, unspecified with intoxication, uncomplicated (principal); S09.90XA Unspecified injury of head, initial encounter; S19.9XXA Unspecified injury of neck, initial encounter; W10.9XXA Fall (on) (from) unspecified stairs and steps, initial encounter; M54.50 Low back pain, unspecified; F17.200 Nicotine dependence, unspecified, uncomplicated
CPT/HCPCS: 36415; 70450; 72125; 72128; 72131; 80053; 80320; 83690; 85025; 85610; 96374; 99284; J1170

== ENCOUNTER 2022-06-30 13:50 | Outpatient (CLI) | payer MEDICAID | END 2022-06-30 13:51 | disposition critical access hospital (66) | LOC: EMS 13:50 | DX: R10.12 Left upper quadrant pain (principal); R11.2 Nausea with vomiting, unspecified | CPT/HCPCS: A0425; A0429 ==

== ENCOUNTER 2022-06-30 14:13 | Inpatient (IN) | payer MEDICAID ==
--- NOTE | 2022-06-30 14:25 | ED Physician Documentation ---
History of Present Illness - Stated complaint Stated Complaint: ABD PX - Chief complaint Chief Complaint: Abd Pain - History obtained from History obtained from: Patient - History of Present Illness Timing: How many hours ago (1) Pain level max: 7 Pain level now: 7 - Additonal information Additional information: Patient is a 36-year-old female who presents to the emergency department with abdominal pain that started about 1 hour prior to arrival. She states the pain is in the left lower quadrant, came on suddenly. Described as sharp. She states that she has not been drinking any alcohol for several months but did have 2 white claws seltzers by accident 2 days ago. She denies any vomiting. Has had nausea. Has had diarrhea for the past 2 days. She has a history of chronic pancreatitis, is on pancrease at home. No fevers. No chills. Denies any possibility . No vaginal bleeding or discharge. She took Zofran prior to arrival. No meds were given with EMS. She was seen here 2 days ago after a fall. 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 : Kidney stones HEENT: None Psych: Depression, Anxiety, Panic attacks Musculoskeletal: None Derm: None - Past Surgical History Past Surgical History: Yes /FOOD BEVERAGE SERVER: Other HEENT: Tonsil/Adenoidectomy - Present Medications Home Medications: Ambulatory Orders Medication Instructions Recorded Confirmed Pantoprazole [Protonix] 40 mg PO DAILY 30 Days #30 tablet 03/13/22 05/10/22 HYDROmorphone [Dilaudid] 2 mg PO Q6H PRN #20 tablet 04/08/22 05/10/22 LORazepam [Ativan] 1 mg PO Q6H PRN #15 tablet 04/08/22 05/10/22 Lipase/Protease/Amylase [Creon Dr 24,000 unit PO TIDWM 04/08/22 05/10/22 24,000 Unit Capsule] Ondansetron Odt [Zofran Odt] 4 mg TL Q6H PRN #15 tablet 04/08/22 05/10/22 Acetaminophen [Tylenol] 650 mg PO Q6H PRN 04/09/22 05/10/22 Loratadine [Claritin] 10 mg PO DAILY PRN 04/09/22 05/10/22 Sucralfate [Carafate] 1 gm PO QPM 04/09/22 05/10/22 Acamprosate Calcium 1 tab PO DAILY 05/04/22 05/10/22 Promethazine [Phenergan] 25 mg PO Q6HR PRN 05/04/22 05/10/22 Sennosides/Docusate Sodium 1 tab PO DAILY PRN 05/04/22 05/10/22 [Senna-S 8.6-50 mg Tablet] polyethylene glycoL 3350 [Miralax] 17 gm PO DAILY PRN 05/04/22 05/10/22 Famotidine [Pepcid] 20 mg PO BID #20 tablet 05/05/22 05/10/22 Multivitamin [Theragran] 1 tab PO DAILYWM tab 05/13/22 Nicotine 14 mg Patch [Nicoderm] 1 patch TOP DAILY patch 05/13/22 levoFLOXacin [Levaquin] 500 mg PO DAILY #3 tab 05/13/22 - Allergies Allergies/Adverse Reactions: Allergies Allergy/AdvReac Type Severity Reaction Status Date / Time No Known Drug Allergies Allergy Verified 06/30/22 14:17 - Social History Does the pt smoke?: Yes Smoking Status: Current every day smoker Does the pt drink ETOH?: Yes Does the pt have substance abuse?: Yes - Immunizations Immunizations are current?: Yes - POLST Patient has POLST: No POLST Status: Full Code PD ED PE NORMAL - Vitals Vital signs reviewed: Yes - General General: Alert and oriented X 3, No acute distress - HEENT HEENT: Moist mucous membranes - Neck Neck: Supple, no meningeal sign - Cardiac Cardiac: RRR, Strong equal pulses - Respiratory Respiratory: No respiratory distress, Clear bilaterally - Abdomen Abdomen: Soft, Non distended, Other (TTP LLQ, no peritoneal signs) - Back Back: No CVA TTP, No spinal TTP - Derm Derm: Warm and dry - Neuro Neuro: Alert and oriented X 3 - Psych Psych: Normal mood, Normal affect Results - Vitals Vitals: Vital Signs - 24 hr 06/30/22 06/30/22 06/30/22 14:17 14:20 16:00 Temperature 37.0 C 37.0 C Heart Rate 100 100 91 Respiratory 20 20 18 Rate Blood Pressure 120/100 H 122/100 H 109/85 H O2 Saturation 100 100 98 Oxygen O2 Source Room air - Labs Labs: Laboratory Tests 06/30/22 06/30/22 06/30/22 14:20 14:20 15:22 WBC 4.7 L RBC 3.86 L Hgb 12.7 Hct 38.0 MCV 98.4 MCH 32.9 H MCHC 33.4 RDW 15.0 Plt Count 199 MPV 11.2 H Neut # (Auto) 2.9 Lymph # (Auto) 1.4 L Johnston # (Auto) 0.3 Eos # (Auto) 0.1 Baso # (Auto) 0.0 Absolute Nucleated RBC 0.00 Band Neuts % (Manual) Not Reportable Abnorm Lymph % (Manual) Not Reportable Nucleated RBC % 0.0 Neutrophils # (Manual) Not Reportable Lymphocytes # (Manual) Not Reportable Monocytes # (Manual) Not Reportable Eosinophils # (Manual) Not Reportable Basophils # (Manual) Not Reportable Differential Comment MANUAL=AUTO DIFF Manual Slide Review Indicated WBC Morphology NORMAL APPEARANCE Platelet Estimate NORMAL (130-450,000) Platelet Morphology NORMAL APPEARANCE RBC Morph Micro Appear NORMAL APPEARANCE Sodium 129 L Potassium 2.8 L Chloride 91 L Carbon Dioxide 26 Anion Gap 12.0 BUN 11 Creatinine 0.9 Estimated GFR (MDRD) 71 L Glucose 123 H Calcium 9.1 Magnesium 1.6 L Total Bilirubin 0.9 AST 44 H ALT 24 Alkaline Phosphatase 98 Total Protein 7.3 Albumin 4.3 Globulin 3.0 Albumin/Globulin Ratio 1.4 Lipase 35 Urine Color DARK YELLOW Urine Clarity CLOUDY Urine pH 5.0 Ur Specific Hardy >=1.030 H Urine Protein 30 H Urine Glucose (UA) NEGATIVE Urine Ketones TRACE Urine Occult Blood NEGATIVE Urine Nitrite POSITIVE H Urine Bilirubin MODERATE H Urine Urobilinogen 1 (NORMAL) Ur Leukocyte Esterase NEGATIVE Urine RBC 0-5 Urine WBC 6-10 H Ur Squamous Epith Cells FEW Squamous Urine Bacteria Moderate H Urine Mucus Moderate Strands Ur Microscopic Review INDICATED Urine Culture Comments INDICATED Urine HCG, Qual NEGATIVE Ethyl Alcohol < 5.0 PD Medical Decision Making - ED course Complexity details: reviewed results, re-evaluated patient, considered differential, d/w patient, d/w family ED course: 36-year-old female with a history of chronic pancreatitis presents to the emergency department with ongoing abdominal pain. Has peripancreatic edema on CT scan consistent with recurrent pancreatitis. White blood cell count is normal. Sodium is mildly decreased as is her potassium. Given IV fluids. She appears to have a UTI as well, will place on antibiotics for this. Her alcohol level is negative. The patient is still requiring IV pain medications for pain control. Unable to tolerate p.o. The patient would be admitted to the hospital but there are no beds available at this time. When a bed is available, hospitalist will be consulted for admission. Patient will be boarded in the emergency department awaiting admission. This document was made in part using voice recognition software. While efforts are made to proofread this document, sound alike and grammatical errors may occur. Departure - Departure Disposition: [facility] DC/Xfer Clinical Impression: Pancreatic pseudocyst/cyst Pancreatitis Qualifiers: Chronicity: acute Pancreatitis type: unspecified pancreatitis type Acute pancreatitis complication: unspecified Qualified Code(s): K85.90 - Acute pancreatitis without necrosis or infection, unspecified UTI (urinary tract infection) Qualifiers: Urinary tract infection type: acute cystitis Hematuria presence: without hematuria Qualified Code(s): N30.00 - Acute cystitis without hematuria Condition: Stable
[2022-06-30 14:28] LABS: BASOPHILS % (AUTO) 0.6 %; EOSINOPHILS # (AUTO) 0.1 10^3/uL (0.0-0.7); EOSINOPHILS % (AUTO) 1.5 %; HGB - HEMOGLOBIN 12.7 g/dL (12.0-16.0); LYMPHOCYTES # (AUTO) 1.4 10^3/uL (1.5-3.5); LYMPHOCYTES % (AUTO) 29.8 %; MEAN CORPUSCULAR HEMOGLOBIN 32.9 pg (27.0-31.0); MEAN CORPUSCULAR HGB CONC 33.4 g/dL (32.0-36.0); MEAN CORPUSCULAR VOLUME 98.4 fL (81.0-99.0); MEAN PLATELET VOLUME 11.2 fL (7.9-10.8); MONOCYTES # (AUTO) 0.3 10^3/uL (0.0-1.0); NEUTROPHILS # (AUTO) 2.9 10^3/uL (1.5-6.6); NEUTROPHILS % (AUTO) 60.9 %; PLT - PLATELET COUNT 199 10^3/uL (130-450); RED BLOOD COUNT 3.86 10^6/uL (4.20-5.40); WHITE BLOOD COUNT 4.7 x10^3/uL (4.8-10.8)
[2022-06-30] MEDS ORDERED: iohexoL-300 100 ML VIAL ONE (14:30)
[2022-06-30] MEDS ORDERED: KETOROLAC 30 MG/ML VIAL IVP STA (14:35)
[2022-06-30] MEDS ORDERED: HYDROmorphone 1 MG/ML CARPUJECT IVP STA ×2 (14:35→16:06)
[2022-06-30 14:38] LABS: ALBUMIN 4.3 g/dL (3.2-5.5); ALBUMIN/GLOBULIN RATIO 1.4 (1.0-2.2); ALKALINE PHOSPHATASE 98 IU/L (42-121); ALT ALANINE AMINOTRANSFERASE 24 IU/L (10-60); AST ASPARTATE AMINOTRANSFERASE 44 IU/L (10-42); BILIRUBIN,TOTAL 0.9 mg/dL (0.2-1.0); BUN - BLOOD UREA NITROGEN 11 mg/dL (6-20); CALCIUM 9.1 mg/dL (8.5-10.3); CARBON DIOXIDE - CO2 26 mmol/L (21-32); CHLORIDE 91 mmol/L (101-111); CREATININE 0.9 mg/dL (0.4-1.0); ETOH - ETHANOL < 5.0 mg/dL; GFR - MDRD 71 (>89); GLUCOSE 123 mg/dL (70-100); LIPASE 35 U/L (22-51); MAGNESIUM 1.6 mg/dL (1.7-2.8); POTASSIUM 2.8 mmol/L (3.5-5.0); SODIUM 129 mmol/L (135-145); TOTAL PROTEIN 7.3 g/dL (6.7-8.2)
[2022-06-30 14:44] LABS: SLIDE REVIEW? Indicated
[2022-06-30] MEDS ORDERED: SODIUM CHLORIDE 0.9% 1,000 ML IV STA ×2 (14:49)
[2022-06-30 14:51] LABS: PLATELET ESTIMATE, MANUAL NORMAL (130-450,000) (NORMAL); PLATELET MORPHOLOGY NORMAL APPEARANCE (NORMAL); RBC MORPHOLOGY (MULTIPLE) NORMAL APPEARANCE (NORMAL); WBC MORPHOLOGY (MULTIPLE) NORMAL APPEARANCE (NORMAL)
[2022-06-30 14:52] LABS: DIFFERENTIAL COMMENT MANUAL=AUTO DIFF
[2022-06-30] MEDS ORDERED: iohexoL-300 100 ML VIAL IVP ONE (15:21)
[2022-06-30 15:34] LABS: GLUCOSE, URINE (UA) NEGATIVE (NEGATIVE); KETONES,URINE (UA) TRACE mg/dL (NEGATIVE); LEUKOCYTE ESTERASE, URINE NEGATIVE (NEGATIVE); NITRITE,URINE POSITIVE (NEGATIVE); OCCULT BLOOD,URINE NEGATIVE (NEGATIVE); PROTEIN,URINE 30 mg/dL (NEGATIVE); UROBILINOGEN,URINE 1 (NORMAL) E.U./dL (NORMAL)
[2022-06-30 15:39] LABS: BILIRUBIN,URINE MODERATE (NEGATIVE); ICTOTEST,URINE POSITIVE
[2022-06-30 15:40] LABS: CLARITY,URINE CLOUDY (CLEAR); HCG UR QUAL NEGATIVE
--- NOTE | 2022-06-30 15:45 | CT Report ---
PROCEDURE: ABDOMEN/PELVIS W INDICATIONS: LLQ abd pain CONTRAST: 100ml omni 300 TECHNIQUE: After the administration of IV contrast, 5 mm thick sections acquired from the diaphragms to the symp hysis. 5 mm thick coronal and sagittal reformats were acquired. For radiation dose reduction, the f ollowing was used: automated exposure control, adjustment of mA and/or kV according to patient size. COMPARISON: 05/10/2022. Correlation is also made with lumbar spine CT, 04/28/2023 FINDINGS: Image quality: Excellent. ABDOMEN: Lung bases: Lung bases are clear. Heart size is normal. Solid organs: Liver and spleen are normal in size and enhancement. Gallbladder wall does not appear thickened. Biliary system is non dilated. There is a 4.6 cm cystic lesion again seen involving the head of the pancreas, which appears improved compared to the prior CT dated 05/10/2022. Moderate surrounding inflammatory change can be seen surr ounding the pancreas. No adrenal nodules. Kidneys demonstrate normal size and enhancement, without hydronephrosis. Peritoneum and bowel: Bowel loops demonstrate normal wall thickness and caliber. No free fluid or a ir. A normal appendix is incidentally noted. Nodes and vessels: No retroperitoneal or mesenteric adenopathy by size criteria. Aorta and inferior vena cava are normal in size. Miscellaneous: No ventral hernias. PELVIS: Genitourinary: Bladder wall thickness is normal. An IUD is seen at the expected location. The uteru s demonstrates an unremarkable appearance for age. No adnexal masses are seen. Miscellaneous: No inguinal hernias or adenopathy. Bones: No suspicious bony lesions. No vertebral body compression fractures. IMPRESSION: Improving pancreatic pseudocyst. Moderate inflammatory change can be seen surrounding the pancreas. Please correlate with potential fi ndings of continued pancreatitis. Additional findings: Normal appendix IUD Reviewed by: Nael Dodd MD on 06/30/2022 2:43 PM AKST Approved by: Nael Dodd MD on 06/30/2022 2:43 PM AKST Station ID: [id number]
[2022-06-30 15:51] LABS: BACTERIA,URINE Moderate /HPF (None Seen); RBC,URINE 0-5 /HPF (0-5); SQUAMOUS EPITHELIAL CELL,UR FEW Squamous (<= Few)
[2022-06-30 15:52] LABS: MUCUS,URINE Moderate Strands
[2022-06-30] MEDS: HYDROmorphone 1 MG/ML CARPUJECT IVP PRN ×3 (16:59→22:58)
[2022-06-30] MEDS ORDERED: cefTRIAXone 1 GM VIAL IVP STA (18:06)
[2022-06-30] MEDS: ONDANSETRON 4 MG/2 ML VIAL IVP PRN (18:19)
[2022-06-30 19:02] LABS: B. PARAPERTUSSIS- RESP PCR PAN NOT DETECTED; B. PERTUSSIS- RESP PCR PANEL NOT DETECTED; C. PNEUMONIAE- RESP PCR PANEL NOT DETECTED; CORONAVIRUS 229E-RESP PCR NOT DETECTED; CORONAVIRUS HKU1-RESP PCR NOT DETECTED; CORONAVIRUS NL63-RESP PCR NOT DETECTED; CORONAVIRUS OC43-RESP PCR NOT DETECTED; HUMAN METAPNEUMOVIRUS NOT DETECTED; INFLUENZA A- RESP PCR PANEL NOT DETECTED; INFLUENZA B - RESP PCR PANEL NOT DETECTED; M. PNEUMONIAE- RESP PCR PANEL NOT DETECTED; PARAINFLUENZA VIRUS 1 NOT DETECTED; PARAINFLUENZA VIRUS 2 NOT DETECTED; PARAINFLUENZA VIRUS 3 NOT DETECTED; PARAINFLUENZA VIRUS 4 NOT DETECTED; RHINOVIRUS/ENTEROVIRUS NOT DETECTED; RSV- RESP PCR PANEL NOT DETECTED; SARS-CoV-2 -RESP PCR PANEL NOT DETECTED
[2022-07-01] MEDS: ONDANSETRON 4 MG/2 ML VIAL IVP PRN ×3 (00:25→13:10)
[2022-07-01] MEDS ORDERED: KETOROLAC 30 MG/ML VIAL IVP STA (01:57)
[2022-07-01] MEDS ORDERED: ACETAMINOPHEN 325 MG TABLET PO STA (04:58)
[2022-07-01] MEDS: HYDROmorphone 1 MG/ML CARPUJECT IVP PRN ×7 (07:20→23:53)
[2022-07-01] MEDS ORDERED: cefTRIAXone 1 GM VIAL IVP STA (14:27)
[2022-07-01 14:38] LABS: BASOPHILS % (AUTO) 0.5 %; EOSINOPHILS # (AUTO) 0.1 10^3/uL (0.0-0.7); EOSINOPHILS % (AUTO) 3.4 %; HCT - HEMATOCRIT 34.6 % (37.0-47.0); HGB - HEMOGLOBIN 11.5 g/dL (12.0-16.0); LYMPHOCYTES # (AUTO) 1.1 10^3/uL (1.5-3.5); LYMPHOCYTES % (AUTO) 27.7 %; MEAN CORPUSCULAR HEMOGLOBIN 33.4 pg (27.0-31.0); MEAN CORPUSCULAR HGB CONC 33.2 g/dL (32.0-36.0); MEAN CORPUSCULAR VOLUME 100.6 fL (81.0-99.0); MEAN PLATELET VOLUME 10.3 fL (7.9-10.8); MONOCYTES # (AUTO) 0.3 10^3/uL (0.0-1.0); NEUTROPHILS # (AUTO) 2.4 10^3/uL (1.5-6.6); NEUTROPHILS % (AUTO) 61.4 %; PLT - PLATELET COUNT 159 10^3/uL (130-450); RED BLOOD COUNT 3.44 10^6/uL (4.20-5.40); RED CELL DISTRIBUTION WIDTH 15.3 % (12.0-15.0); WHITE BLOOD COUNT 3.8 x10^3/uL (4.8-10.8)
[2022-07-01 14:59] LABS: ALBUMIN 3.4 g/dL (3.2-5.5); ALBUMIN/GLOBULIN RATIO 1.4 (1.0-2.2); BILIRUBIN,TOTAL 0.8 mg/dL (0.2-1.0); CALCIUM 8.3 mg/dL (8.5-10.3); CREATININE 0.7 mg/dL (0.4-1.0); POTASSIUM 2.9 mmol/L (3.5-5.0); TOTAL PROTEIN 5.9 g/dL (6.7-8.2)
[2022-07-01] MEDS ORDERED: HYDROmorphone 1 MG/ML CARPUJECT IVP STA (17:00)
--- NOTE | 2022-07-01 18:26 | HISTORY & PHYSICAL EXAMINATION ---
Chief Complaint - Chief Complaint Chief Complaint: Abd pain, N/V/D History of Present Illness - Admitted From Admitted From:: ED - History Obtained From History obtained from: ED provider and the patient - History of Present Illness HPI Comment/Other: This is a 36-year-old white female with a history of alcohol abuse, recurrent alcoholic pancreatitis, she has a pancreatic pseudocyst that has caused obstruction of the distal stomach in the past. She has tried to decrease her alcohol intake and goes to an addiction provider. She is followed by appraiser timber, Dr. Bautista at [facility] gastroenterology. The plan from him is to have her remain off of alcohol to have the pseudocyst harden and shrink and then it can be removed. The patient was here approximately 2 months ago with abdominal pain, nausea and vomiting after some alcohol intake. She needed IV narcotics, bowel rest and IV fluids. Patient said that she did not drink alcohol in those 2 months except recently a few days ago "without realizing it" she had some alcohol intake that she thought was carbonated water. Following that she started to get abdominal pain 2 days ago and then diarrhea and shortly thereafter developed nausea and vomiting. She also uses cannabis and has been told to stop doing this. She came to our ER yesterdayand was found to have normal lipase levels but has needed narcotics for pain control and has needed IV antiemetics. She was given a saline bolus. CT scan of the abdomen was done that showed a smaller pancreatic pseudocyst and inflammation of the pancreas. Patient was housed in the ER while waiting for an inpatient bed to open in the hospital. The ED provider has reached out to the Hospitalist team today to continue to manage her abdominal pain still needing narcotics and her nausea and vomiting still needing IV fluids and IV antiemetics. 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 Living Situation: With family Social History Notes: She previously drank alcohol on a consistent basis but now barely has any. She smokes a couple cigarettes a day and has been doing so for the past 16 years. She lives with her daughter and with her mother. She works full-time. - Substance History Use: Uses substance without health or social issues: Tobacco - POLST Patient has POLST: No POLST Status: Full Code Meds/Allgy - Home Medications Home Medications: Ambulatory Orders Medication Instructions Recorded Confirmed LORazepam [Ativan] 1 mg PO Q6H PRN #15 tablet 04/08/22 06/30/22 Lipase/Protease/Amylase [Creon Dr 24,000 unit PO TIDWM 04/08/22 06/30/22 24,000 Unit Capsule] Acetaminophen [Tylenol] 650 mg PO Q6H PRN 04/09/22 06/30/22 Acamprosate Calcium 2 tab PO TID 07/01/22 07/01/22 Ondansetron HCl 1 tab PO QID PRN 07/01/22 07/01/22 polyethylene glycoL 3350 17 g PO DAILY PRN 07/01/22 07/01/22 [Polyethylene Glycol 3350] - Allergies Allergies/Adverse Reactions: Allergies Allergy/AdvReac Type Severity Reaction Status Date / Time No Known Drug Allergies Allergy Verified 06/30/22 14:17 Review of Systems - Gastrointestinal Gastrointestinal: reports: Abdominal pain, Diarrhea, Nausea, Vomiting - All Other Systems All Other Systems: reports: Reviewed and negative Exam - Vital Signs Vital Signs: Vital Signs x48h Pulse Resp BP Pulse Ox 07/01/22 16:56 77 16 121/84 H 95 07/01/22 13:55 76 17 134/84 H 95 07/01/22 12:42 81 20 106/75 97 - Physical Exam General Appearance: positive: Mild distress (after narcotics) Eyes Bilateral: positive: Normal inspection, EOMI ENT: positive: ENT inspection nml, No signs of dehydration Neck: positive: Nml inspection, No JVD Respiratory: positive: No respiratory distress, Breath sounds nml Cardiovascular: positive: Regular rate & rhythm, No murmur Abdomen: positive: No distention, Guarding, Other (Diminished bowel sound. Mildly tender in all 4 quadrants with guarding, no rebound.) Skin: positive: Warm, Dry Extremities: positive: Non-tender, No pedal edema Neurologic/Psychiatric: positive: Oriented x3, Motor nml Conclusion/Plan - Problem List (1) Nausea and vomiting Conclusion/Plan: She did slip and had some alcohol which may have caused some mild pancreatic inflammation, seen on CT scan. Another cause could be her use of marijuana Plan: Will continue IV fluids IV antiemetics as needed Bowel rest to include only ice chips and popsicles today then eventually advancing her diet (2) Pancreatic pseudocyst/cyst Conclusion/Plan: We think this is the cause of her abdominal pain. Plan: Continue with bowel rest with only ice chips and popsicles. Will try clear liquid diet tomorrow. She will eventually need to be put back on her Pancrease Continue with IV narcotics for pain control Continue with the long-range plan to abstain from alcohol, to have this cyst solidify and shrink so that it can be removed (3) Hyponatremia Conclusion/Plan: This is likely from fluid losses therefore hypovolemic hyponatremia Plan: Will continue with NS in her fluids Follow BMP daily - Lab Results Fish Bones: 07/01/22 14:32 07/01/22 14:32
[2022-07-01] MEDS: D5NS W/20 MEQ KCL 1,000 ML IV SCH (19:03)
[2022-07-01] MEDS: SODIUM CHLORIDE FLUSH 0.9% 10 ML SYRINGE IVP PRN (19:03)
[2022-07-01] MEDS: ACETAMINOPHEN 1,000 MG/100 ML 1,000 MG/100 ML BAG IV PRN (19:47)
[2022-07-02] MEDS: PROCHLORPERAZINE 10 MG/2 ML VIAL IVP PRN ×2 (00:44→13:26)
[2022-07-02] MEDS: KETOROLAC 15 MG/ML VIAL IVP PRN ×4 (00:44→21:08)
[2022-07-02] MEDS: SODIUM CHLORIDE FLUSH 0.9% 10 ML SYRINGE IVP SCH ×4 (00:45→23:27)
[2022-07-02] MEDS: HYDROmorphone 1 MG/ML CARPUJECT IVP PRN ×8 (05:04→22:27)
[2022-07-02] MEDS: ONDANSETRON 4 MG/2 ML VIAL IVP PRN ×2 (05:04→22:47)
[2022-07-02] MEDS: D5NS W/20 MEQ KCL 1,000 ML IV SCH ×2 (05:04→14:52)
[2022-07-02 05:19] LABS: BASOPHILS % (AUTO) 0.5 %; EOSINOPHILS # (AUTO) 0.2 10^3/uL (0.0-0.7); EOSINOPHILS % (AUTO) 3.9 %; HCT - HEMATOCRIT 33.3 % (37.0-47.0); HGB - HEMOGLOBIN 10.7 g/dL (12.0-16.0); LYMPHOCYTES # (AUTO) 1.2 10^3/uL (1.5-3.5); MEAN CORPUSCULAR HEMOGLOBIN 33.1 pg (27.0-31.0); MEAN CORPUSCULAR HGB CONC 32.1 g/dL (32.0-36.0); MEAN CORPUSCULAR VOLUME 103.1 fL (81.0-99.0); MEAN PLATELET VOLUME 10.4 fL (7.9-10.8); MONOCYTES # (AUTO) 0.4 10^3/uL (0.0-1.0); MONOCYTES % (AUTO) 9.4 %; NEUTROPHILS # (AUTO) 2.5 10^3/uL (1.5-6.6); PLT - PLATELET COUNT 156 10^3/uL (130-450); RED BLOOD COUNT 3.23 10^6/uL (4.20-5.40); RED CELL DISTRIBUTION WIDTH 15.6 % (12.0-15.0); WHITE BLOOD COUNT 4.4 x10^3/uL (4.8-10.8)
[2022-07-02 05:33] LABS: ALBUMIN 2.8 g/dL (3.2-5.5); ALBUMIN/GLOBULIN RATIO 1.1 (1.0-2.2); BILIRUBIN,TOTAL 0.6 mg/dL (0.2-1.0); CALCIUM 8.4 mg/dL (8.5-10.3); CREATININE 0.7 mg/dL (0.4-1.0); MAGNESIUM 1.7 mg/dL (1.7-2.8); POTASSIUM 3.1 mmol/L (3.5-5.0); TOTAL PROTEIN 5.4 g/dL (6.7-8.2)
[2022-07-02] MEDS: ACETAMINOPHEN 1,000 MG/100 ML 1,000 MG/100 ML BAG IV PRN (10:22)
--- NOTE | 2022-07-02 10:22 | PROVIDER PROGRESS NOTE ---
Subjective - Prog Note Date Prog Note Date: 07/02/22 Prog Note Time: 10:07 - Subjective Pt reports feeling: Improved Subjective: 36 year old white female with history of alcohol abuse, recurrent pancreatitis, and a pancreatic pseudocyst that has caused past obstruction of duodenum. She is followed by cash office worker Dr. Barnard. She was here approximately 2 months ago with abdominal pain, nausea and vomiting after alcohol intake. She has tried to decrease her alcohol intake. She indicates that she drinks a lot of seltzer w ater and juice in order to abstain from alcohol. She says that it is hard for her to not drink since she has a history of alcoholism in her family and the family she lives with drinks alcohol in her presence. She fell down some stairs over the weekend, and on Friday night she started having abdominal pain, diarrhea, nausea and vomiting. She indicates that she did not have any alcohol. She came to the ER 2 days ago. She had normal lipase levels, but needed narcotics for pain control and IV antiemetics. She indicates that she can normally relieve her pain with tylenol. At the ER she was given a saline bolus. Her CT scan of her abdomen showed smaller pancreatic pseudocyst and inflammation of the pancreas. She reports that her abdominal pain is currently 5/10 and is being managed with narcotics. She does not like taking these because she is affraid of becoming addicted. She reports that her abdominal pain is sharp in LUQ with radiation to her back and constant diffuse crampy in umbilicus, LLQ and RLQ. She does indicate mild nausea, but no emesis. This is being managed with IV antiemetics, IV fluids, bowel rest, ice chips, clear liquids including cranberry juice and coffee, and slow bites of Jell-O. She indicates she has had diarrhea lately. She indicates that a couple days ago she had chest pain just below both clavicles that she described as sharp and pressure with radiation to her shoulders. She denies pain now. She denies SOB. Objective - Vital Signs/Intake & Output Vital Signs: Vital Signs x48h Temp Pulse Resp BP Pulse Ox 07/02/22 07:59 36.6 C 88 16 104/62 97 07/02/22 05:02 36.7 C 81 16 95/63 99 Intake & Output: Intake & Output 01/1406/30/22 07/01/22 07/02/22 23:59 23:59 23:59 23:59 Intake Total 1999 261 916.667 Output Total 1 Balance 1999 168 915.667 - Objective General Appearance: positive: Alert, Mild distress, Other (She is talkative and alert. She is seated in bed at 30 degrees. She shows occasional signs of abdominal pain by slowing in her speech, touching her abdomen and grimacing.) Eyes Bilateral: positive: Normal inspection, PERRL, EOMI, No lid inflammation, Conjunctivae nml, No scleral icterus ENT: positive: ENT inspection nml, Pharynx nml, No signs of dehydration Neck: positive: Nml inspection, Thyroid nml, No JVD, Trachea midline Respiratory: positive: Chest non-tender, No respiratory distress, Breath sounds nml Cardiovascular: positive: Regular rate & rhythm, No murmur, No gallop Abdomen: positive: Other (Decreased bowel sounds. No bruit in mid-epigastric, RUQ, LUQ, LLQ, or RLQ of abdomen. Tenderness to light palpation of entire abdomen, worse in LUQ.) Skin: positive: Color nml, No rash, Warm Extremities: positive: Non-tender, Full ROM, Nml appearance Neurologic/Psychiatric: positive: Oriented x3, Motor nml, Sensation nml, Mood/a ffect nml - Lab Results Fish Bones: 07/02/22 05:05 07/02/22 05:05 Other Labs: Lab Results x24hrs 07/02/22 07/02/22 07/01/22 Range/Units 05:05 05:05 14:32 WBC 4.4 L (4.8-10.8) x10^3/uL RBC 3.23 L (4.20-5.40) 10^6/uL Hgb 10.7 L (12.0-16.0) g/dL Hct 33.3 L (37.0-47.0) % MCV 103.1 H (81.0-99.0) fL MCH 33.1 H (27.0-31.0) pg MCHC 32.1 (32.0-36.0) g/dL RDW 15.6 H (12.0-15.0) % Plt Count 156 (130-450) 10^3/uL MPV 10.4 (7.9-10.8) fL Neut # (Auto) 2.5 (1.5-6.6) 10^3/uL Lymph # (Auto) 1.2 L (1.5-3.5) 10^3/uL [place] # (Auto) 0.4 (0.0-1.0) 10^3/uL Eos # (Auto) 0.2 (0.0-0.7) 10^3/uL Baso # (Auto) 0.0 (0.0-0.1) 10^3/uL Absolute Nucleated RBC 0.00 x10^3/uL Nucleated RBC % 0.0 /100WBC Sodium 137 131 L (135-145) mmol/L Potassium 3.1 L 2.9 L (3.5-5.0) mmol/L Chloride 104 98 L (101-111) mmol/L Carbon Dioxide 26 26 (21-32) mmol/L Anion Gap 7.0 7.0 (6-13) BUN 12 14 (6-20) mg/dL Creatinine 0.7 0.7 (0.4-1.0) mg/dL Estimated GFR (MDRD) 95 95 (>89) Glucose 115 H 108 H (70-100) mg/dL Calcium 8.4 L 8.3 L (8.5-10.3) mg/dL Magnesium 1.7 (1.7-2.8) mg/dL Total Bilirubin 0.6 0.8 (0.2-1.0) mg/dL AST 20 44 H (10-42) IU/L ALT 19 23 (10-60) IU/L Alkaline Phosphatase 88 98 (42-121) IU/L Total Protein 5.4 L 5.9 L (6.7-8.2) g/dL Albumin 2.8 L 3.4 (3.2-5.5) g/dL Globulin 2.6 2.5 (2.1-4.2) g/dL Albumin/Globulin Ratio 1.1 1.4 (1.0-2.2) Lipase 40 (22-51) U/L / Range/Units 14:32 WBC 3.8 L (4.8-10.8) x10^3/uL RBC 3.44 L (4.20-5.40) 10^6/uL Hgb 11.5 L (12.0-16.0) g/dL Hct 34.6 L (37.0-47.0) % MCV 100.6 H (81.0-99.0) fL MCH 33.4 H (27.0-31.0) pg MCHC 33.2 (32.0-36.0) g/dL RDW 15.3 H (12.0-15.0) % Plt Count 159 (130-450) 10^3/uL MPV 10.3 (7.9-10.8) fL Neut # (Auto) 2.4 (1.5-6.6) 10^3/uL Lymph # (Auto) 1.1 L (1.5-3.5) 10^3/uL [place] # (Auto) 0.3 (0.0-1.0) 10^3/uL Eos # (Auto) 0.1 (0.0-0.7) 10^3/uL Baso # (Auto) 0.0 (0.0-0.1) 10^3/uL Absolute Nucleated RBC 0.00 x10^3/uL Nucleated RBC % 0.0 /100WBC Sodium (135-145) mmol/L Potassium (3.5-5.0) mmol/L Chloride (101-111) mmol/L Carbon Dioxide (21-32) mmol/L Anion Gap (6-13) BUN (6-20) mg/dL Creatinine (0.4-1.0) mg/dL Estimated GFR (MDRD) (>89) Glucose (70-100) mg/dL Calcium (8.5-10.3) mg/dL Magnesium (1.7-2.8) mg/dL Total Bilirubin (0.2-1.0) mg/dL AST (10-42) IU/L ALT (10-60) IU/L Alkaline Phosphatase (42-121) IU/L Total Protein (6.7-8.2) g/dL Albumin (3.2-5.5) g/dL Globulin (2.1-4.2) g/dL Albumin/Globulin Ratio (1.0-2.2) Lipase (22-51) U/L - Diagnostic Imaging Diagnostic Imaging Results: positive: Final report reviewed Diagnostic Imaging Comments: 4.6 cm cystic lesion of head of pancreas, which appears improved from prior CT on 05/10/22. Moderate inflammation surrounding the pancreas indicative of pancreatitis. Sepsis Event Note (H) - Evaluation Current Stage of Sepsis: Ruled out (No fever, tachycardia, tachypnea, or leukocytosis) Assessment/Plan - Problem List (1) Nausea and vomiting Impression: Improved from yesterday. She continues to have some nausea but no vomiting. Plan: Will continue to manage with IV antiemetics, bowel rest, clear liquids and Jell-O Qualifiers: Vomiting type: unspecified Qualified Code(s): R11.2 - Nausea with vomiting, unspecified (2) Pancreatic pseudocyst Impression: Most likely cause of abdominal pain. Her diet may be a contributing factor, since she eats a lot of processed food, candy and red meat. Patient indicated that she wants to start eating healthier, more vegetables and lean meats. Plan: will continue bowel rest, clear liquid diet. Will plan on putting patient back on pancreatic enzyme replacement therapy once she is eating solid foods due to chronic pancreatitis. Will Continue IV narcotics due to patient report of 5/10 pain. Continue with long-term plan to abstain from alcohol. Waiting on cyst to solidify and shrink so that it can be drained. (3) Hyponatremia Impression: Resolved hypovolemic hyponatremia. Fluid loss was restored with saline. 07/01/22: 131 hyponatremic 07/02/22: 137 within normal range
[2022-07-03] MEDS: SODIUM CHLORIDE FLUSH 0.9% 10 ML SYRINGE IVP SCH ×2 (00:21→15:44)
[2022-07-03] MEDS: D5NS W/20 MEQ KCL 1,000 ML IV SCH ×2 (00:27→10:29)
[2022-07-03] MEDS: HYDROmorphone 1 MG/ML CARPUJECT IVP PRN ×9 (00:28→22:00)
[2022-07-03] MEDS: SODIUM CHLORIDE FLUSH 0.9% 10 ML SYRINGE IVP PRN ×2 (04:43→13:00)
[2022-07-03] MEDS: KETOROLAC 15 MG/ML VIAL IVP PRN ×4 (04:43→22:54)
[2022-07-03 05:07] LABS: BASOPHILS % (AUTO) 0.5 %; EOSINOPHILS # (AUTO) 0.1 10^3/uL (0.0-0.7); EOSINOPHILS % (AUTO) 3.6 %; HCT - HEMATOCRIT 30.2 % (37.0-47.0); HGB - HEMOGLOBIN 9.7 g/dL (12.0-16.0); LYMPHOCYTES # (AUTO) 1.5 10^3/uL (1.5-3.5); LYMPHOCYTES % (AUTO) 40.1 %; MEAN CORPUSCULAR HEMOGLOBIN 33.2 pg (27.0-31.0); MEAN CORPUSCULAR HGB CONC 32.1 g/dL (32.0-36.0); MEAN CORPUSCULAR VOLUME 103.4 fL (81.0-99.0); MEAN PLATELET VOLUME 10.8 fL (7.9-10.8); MONOCYTES # (AUTO) 0.4 10^3/uL (0.0-1.0); MONOCYTES % (AUTO) 10.7 %; NEUTROPHILS # (AUTO) 1.6 10^3/uL (1.5-6.6); NEUTROPHILS % (AUTO) 45.1 %; PLT - PLATELET COUNT 143 10^3/uL (130-450); RED BLOOD COUNT 2.92 10^6/uL (4.20-5.40); RED CELL DISTRIBUTION WIDTH 15.6 % (12.0-15.0); WHITE BLOOD COUNT 3.6 x10^3/uL (4.8-10.8)
[2022-07-03 05:13] LABS: ALBUMIN 2.5 g/dL (3.2-5.5); ALBUMIN/GLOBULIN RATIO 1.1 (1.0-2.2); BILIRUBIN,TOTAL 0.7 mg/dL (0.2-1.0); CALCIUM 7.7 mg/dL (8.5-10.3); CREATININE 0.6 mg/dL (0.4-1.0); MAGNESIUM 1.6 mg/dL (1.7-2.8); POTASSIUM 3.4 mmol/L (3.5-5.0); TOTAL PROTEIN 4.8 g/dL (6.7-8.2)
--- NOTE | 2022-07-03 08:32 | PROVIDER PROGRESS NOTE ---
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 Her CT scan of her abdomen showed smaller pancreatic pseudocyst and inflammation of pancreas. Her abdominal pain is being managed with narcotics, and her nausea and vomiting are managed with IV fluids, IV antiemetics, bowel rest, ice chips, and slow bites of Jell-O. She reports that she is currently having 8/10 pain mostly in the RUQ. She also has moderate pain in her umbilicus area, RLQ and LLQ. She indicates that her pain increases if she lays on her right side. Her most comfortable position is on her back at 30 degrees elevation, but this does not resolve her pain. She has moderate pain in her right mid back. She indicates that yesterday her pain was 5/10 mostly in her LUQ. She says she has been able to walk the hallway slowly with moderate pain. She says that she wants to be off the narcotic medication because she is afraid of being called an addict. She says she is already labeled as an alcoholic and she doesn't like that but she says she did it to herself. She indicates that her stool this morning was very watery and she almost did not make it to the toilet. She has been passing gas. She has been urinating regularly. She indicates she has fluctuated between feeling hot and cold, with sweating on her forehead and back of her neck. She says she has needed a cold washcloth. She denies chest pain or shortness of breath. She endorses mild nausea but no vomiting. Objective - Vital Signs/Intake & Output Vital Signs: Vital Signs x48h Temp Pulse Resp BP Pulse Ox 07/03/22 04:29 36.5 C 73 16 107/75 98 07/03/22 00:32 36.7 C 76 16 111/67 98 Intake & Output: Intake & Output 06/30/22 07/01/22 07/02/22 07/03/22 23:59 23:59 23:59 23:59 Intake Total 1999 595 4418.334 196.666 Output Total 1 Balance 1999 595 4417.334 196.666 - Objective General Appearance: positive: Mild distress (Her cheeks look flushed and she has sweat on her forehead. She has her hand on her abdomen and she is talking slower than yesterday.), Other (She started crying and her eyes look puffy.) Eyes Bilateral: positive: Normal inspection, PERRL, EOMI, No lid inflammation, Conjunctivae nml, No scleral icterus ENT: positive: ENT inspection nml, Pharynx nml, No signs of dehydration Neck: positive: Nml inspection, Thyroid nml, No JVD, Trachea midline Respiratory: positive: Chest non-tender, No respiratory distress, Breath sounds nml Cardiovascular: positive: Regular rate & rhythm, No murmur, No gallop Peripheral Pulses: 2+ Radial (R), 2+ Radial (L) Abdomen: positive: Nml bowel sounds, No distention, Tenderness (Mostly in RUQ and umbilicus), Guarding (Mild guarding and some grimacing with light palpation of RUQ) Skin: positive: Color nml, Warm Extremities: positive: Non-tender, Full ROM, Nml appearance, No pedal edema Neurologic/Psychiatric: positive: Oriented x3, Motor nml, Sensation nml, Mood/affect nml - Lab Results Fish Bones: 07/03/22 04:27 07/03/22 04:27 Other Labs: Lab Results x24hrs 07/03/22 07/03/22 Range/Units 04:27 04:27 WBC 3.6 L (4.8-10.8) x10^3/uL RBC 2.92 L (4.20-5.40) 10^6/uL Hgb 9.7 L (12.0-16.0) g/dL Hct 30.2 L (37.0-47.0) % MCV 103.4 H (81.0-99.0) fL MCH 33.2 H (27.0-31.0) pg MCHC 32.1 (32.0-36.0) g/dL RDW 15.6 H (12.0-15.0) % Plt Count 143 (130-450) 10^3/uL MPV 10.8 (7.9-10.8) fL Neut # (Auto) 1.6 (1.5-6.6) 10^3/uL Lymph # (Auto) 1.5 (1.5-3.5) 10^3/uL [place] # (Auto) 0.4 (0.0-1.0) 10^3/uL Eos # (Auto) 0.1 (0.0-0.7) 10^3/uL Baso # (Auto) 0.0 (0.0-0.1) 10^3/uL Absolute Nucleated RBC 0.00 x10^3/uL Nucleated RBC % 0.0 /100WBC Sodium 137 (135-145) mmol/L Potassium 3.4 L (3.5-5.0) mmol/L Chloride 107 (101-111) mmol/L Carbon Dioxide 26 (21-32) mmol/L Anion Gap 4.0 L (6-13) BUN 6 (6-20) mg/dL Creatinine 0.6 (0.4-1.0) mg/dL Estimated GFR (MDRD) 114 (>89) Glucose 103 H (70-100) mg/dL Calcium 7.7 L (8.5-10.3) mg/dL Magnesium 1.6 L (1.7-2.8) mg/dL Total Bilirubin 0.7 (0.2-1.0) mg/dL AST 67 H (10-42) IU/L ALT 34 (10-60) IU/L Alkaline Phosphatase 237 H (42-121) IU/L Total Protein 4.8 L (6.7-8.2) g/dL Albumin 2.5 L (3.2-5.5) g/dL Globulin 2.3 (2.1-4.2) g/dL Albumin/Globulin Ratio 1.1 (1.0-2.2) - Diagnostic Imaging Diagnostic Imaging Results: positive: Final report reviewed Diagnostic Imaging Comments: CT scan: 4.6 cm cystic lesion of head of pancreas, which appears improved from prior CT on 05/10/22. Moderate inflammation surrounding the pancreas indicative of pancreatitis. Sepsis Event Note (H) - Evaluation Current Stage of Sepsis: Ruled out (No fever, tachycardia, tachypnea, or leukocytosis) Assessment/Plan - Problem List (1) Elevated liver enzymes Impression: AST level elevated: 20 on 07/02/22 67 on 07/03/22 Alkaline phosphatase elevated: 88 on 07/02/22 237 on 07/03/22 Biliary or duodenal obstruction most likely due to pseudocyst from chronic pancreatitis. Per her CT scan she has a 4.6 cm cystic lesion of the head of the pancreas with moderate inflammation surrounding the pancreas. This is most likely causing a mass effect producing a biliary duct stricture. She has 8/10 pain in RUQ, which has worsened since yesterday. Plan: Will order Magnetic Resonance Cholangiopancreatography (MRCP) to determine if surgical intervention is needed at this time. (2) Pancreatic pseudocyst Impression: Cause of abdominal pain. Her pain has worsened to 8/10 today and mostly in RUQ and umbilicus. Yesterday pain was 5/10 in mostly LUQ and umbilicus. Plan: will continue bowel rest, clear liquid diet, and small bites of Jell-O as tolerated. Continue IV narcotics for pain control. Will put back on Pancrease once on solid food diet. Continue with long-term plan to abstain from alcohol. Will order a MRCP to evaluate for biliary or duodenal obstruction as cause of pain and need for surgical intervention. (3) Nausea and vomiting Impression: Due to pancreatic inflammation. Plan: will continue IV fluids, IV antiemetics, bowel rest, ice chips, jell-O. Qualifiers: Vomiting type: unspecified Qualified Code(s): R11.2 - Nausea with vomiting, unspecified (4) Diarrhea due to malabsorption Impression: Due to pancreatic inflammation. Plan: will continue IV fluids, IV antiemetics, bowel rest, ice chips, jell-O.
[2022-07-03] MEDS: PROCHLORPERAZINE 10 MG/2 ML VIAL IVP PRN (09:09)
[2022-07-03] MEDS: ACETAMINOPHEN 1,000 MG/100 ML 1,000 MG/100 ML BAG IV PRN ×3 (09:09→18:45)
[2022-07-03] MEDS ORDERED: GADOBUTROL 7.5 MMOL/7.5 ML VIAL ONE (14:01)
[2022-07-03] MEDS: ONDANSETRON 4 MG/2 ML VIAL IVP PRN ×2 (16:55→22:54)
[2022-07-03] MEDS ORDERED: GADOBUTROL 7.5 MMOL/7.5 ML VIAL IVP ONE (16:57)
--- NOTE | 2022-07-03 18:24 | MRI Report ---
PROCEDURE: MRCP W/WO INDICATIONS: head of pancreas cyst causing obstruc CONTRAST: gadavist 7.2ml TECHNIQUE: Coronal ultra fast SE through the abdomen, axial 2-D spoiled GE in- and [id number], and breath-hold T2 FSE with fat saturation through the biliary system and pancreas. Oblique coronal and axial thin- slice ultra fast SE, radial thick-slab ultra fast SE centered on the extrahepatic bile ducts. COMPARISON: CT abdomen pelvis 06/30/2022, 05/10/2022 FINDINGS: Image quality: Excellent. Pancreas and biliary system: There is a unilocular, T1 and T2 hyperintense cyst involving the proxim al pancreas measuring 5.1 x 5.4 x 6.0 cm. The pancreatic duct is nondilated. There is no visible conn ection of this cyst to the main pancreatic duct. Intra and extrahepatic biliary ducts are nondilated. The common duct is slightly displaced by the pancreatic cyst. There are no distal pancreatic lesions. Moderate peripancreatic edema involving the tail. The gland e nhances uniformly. There is no internal enhancement in the head cyst. The gallbladder is distended bu t demonstrates a normal wall thickness and no stone. Other solid organs: Liver and spleen are normal in size. No adrenal nodules. Both kidneys are norm al in size, without hydronephrosis. Nodes and vessels: No retroperitoneal or mesenteric adenopathy by size criteria. Aorta and inferior vena cava are normal in size. Bowel and peritoneum: Mild edema at the base of the small bowel mesentery. Stomach and visible bowel loops are nonobstructed. Trace free fluid in the retroperitoneum and perihepatic space. Trace fluid dependently along the lateral paracolic gutters. Lung bases: Trace bilateral pleural effusions and minor bibasilar atelectasis.. Heart size is normal . Bones and soft tissues: No ventral hernias. Bone marrow is of normal overall signal. IMPRESSION: 1. Slight decrease in size of a proteinaceous/hemorrhagic fluid collection involving the proximal linares creas. Given history of necrotizing pancreatitis, this is considered walled off necrosis. 2. No pancreatic, biliary, or intestinal obstruction. 3. Peripancreatic edema involving the tail and small amount of fluid in the mesentery, peritoneum, re troperitoneum consistent with acute on chronic pancreatitis. Correlate with lab values. Reviewed by: Emelyn Devi MD on 07/03/2022 6:22 PM PST Approved by: Emelyn Devi MD on 07/03/2022 6:22 PM PST Station ID: [id number]
[2022-07-03] MEDS: MAG HYDROX/AL HYDROX/SIMETH 30 ML UDC PO PRN (18:45)
[2022-07-04] MEDS: HYDROmorphone 1 MG/ML CARPUJECT IVP PRN ×9 (00:17→22:30)
[2022-07-04] MEDS: PROCHLORPERAZINE 10 MG/2 ML VIAL IVP PRN ×3 (00:18→23:52)
[2022-07-04] MEDS: D5NS W/20 MEQ KCL 1,000 ML IV SCH ×3 (00:18→22:30)
[2022-07-04] MEDS: SODIUM CHLORIDE FLUSH 0.9% 10 ML SYRINGE IVP SCH ×3 (01:08→17:14)
[2022-07-04 05:18] LABS: BASOPHILS % (AUTO) 0.6 %; EOSINOPHILS # (AUTO) 0.1 10^3/uL (0.0-0.7); EOSINOPHILS % (AUTO) 3.8 %; HCT - HEMATOCRIT 30.8 % (37.0-47.0); HGB - HEMOGLOBIN 9.8 g/dL (12.0-16.0); LYMPHOCYTES # (AUTO) 1.7 10^3/uL (1.5-3.5); LYMPHOCYTES % (AUTO) 49.7 %; MEAN CORPUSCULAR HEMOGLOBIN 33.2 pg (27.0-31.0); MEAN CORPUSCULAR HGB CONC 31.8 g/dL (32.0-36.0); MEAN CORPUSCULAR VOLUME 104.4 fL (81.0-99.0); MEAN PLATELET VOLUME 10.4 fL (7.9-10.8); MONOCYTES # (AUTO) 0.4 10^3/uL (0.0-1.0); MONOCYTES % (AUTO) 10.2 %; NEUTROPHILS # (AUTO) 1.2 10^3/uL (1.5-6.6); NEUTROPHILS % (AUTO) 35.7 %; PLT - PLATELET COUNT 158 10^3/uL (130-450); RED BLOOD COUNT 2.95 10^6/uL (4.20-5.40); RED CELL DISTRIBUTION WIDTH 15.6 % (12.0-15.0); WHITE BLOOD COUNT 3.4 x10^3/uL (4.8-10.8)
[2022-07-04 05:38] LABS: ALBUMIN 2.5 g/dL (3.2-5.5); ALBUMIN/GLOBULIN RATIO 1.1 (1.0-2.2); ALKALINE PHOSPHATASE 208 IU/L (42-121); ALT ALANINE AMINOTRANSFERASE 25 IU/L (10-60); AST ASPARTATE AMINOTRANSFERASE 22 IU/L (10-42); BILIRUBIN,TOTAL 0.2 mg/dL (0.2-1.0); BUN - BLOOD UREA NITROGEN < 5 mg/dL (6-20); CALCIUM 7.9 mg/dL (8.5-10.3); CARBON DIOXIDE - CO2 23 mmol/L (21-32); CHLORIDE 109 mmol/L (101-111); CREATININE 0.5 mg/dL (0.4-1.0); GFR - MDRD 140 (>89); GLUCOSE 106 mg/dL (70-100); MAGNESIUM 1.6 mg/dL (1.7-2.8); POTASSIUM 3.5 mmol/L (3.5-5.0); SODIUM 138 mmol/L (135-145); TOTAL PROTEIN 4.8 g/dL (6.7-8.2)
[2022-07-04] MEDS: ACETAMINOPHEN 1,000 MG/100 ML 1,000 MG/100 ML BAG IV PRN ×2 (09:21→17:13)
[2022-07-04] MEDS ORDERED: LORazepam 1 MG TABLET PO PRN (10:46)
[2022-07-04] MEDS ORDERED: MAGNESIUM SULFATE 2 GRAM 2 GM/50 ML BAG IV ONE (10:53)
[2022-07-04] MEDS: KETOROLAC 15 MG/ML VIAL IVP PRN ×3 (11:08→23:52)
[2022-07-04] MEDS: LIPASE/PROTEASE/AMYLASE CAPSULE PO SCH ×2 (11:29→17:15)
[2022-07-04] MEDS: ONDANSETRON 4 MG/2 ML VIAL IVP PRN ×2 (12:07→17:13)
--- NOTE | 2022-07-04 12:20 | PROVIDER PROGRESS NOTE ---
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 Her CT scan of her abdomen shows smaller pancreatic pseudocyst and inflammation of pancreas. Her MRCP indicates peripancreatic edema in tail of the pancreas, mesentery, peritoneum, and retroperitoneum consistent with acute on chronic pancreatitis. She reports that her baseline abdominal pain is 3-4/10 without pain medication. Yesterday she was having 8/10 pain mostly in her RUQ with moderate pain in her umbilicus, RLQ and LLQ. Per the nurse, her pain score has not improved from 5/10 on pain medication. Today, she is currently having 6-7/10 pain mostly in her LLQ and LUQ, with perioidic sharp radiating pain to the her left lower back. She indicates that her pain increases if she walks, sits up, bends over, or puts pressure on her abdomen. Her pain is being managed with narcotics. She felt nauseous this morning, but she feels better after taking zofran and taking small bites of saltine crackers. She denies emesis. She denies chest pain or shortness of breath. She has been drinking lots of clear liquids including water and juice and she has been urinating regularly. She is passing gas. She has diarrhea, no change from baseline. We have advanced her diet and she will try eating some noodles slowly. Objective - Vital Signs/Intake & Output Vital Signs: Vital Signs x48h Temp Pulse Resp BP Pulse Ox 07/04/22 08:00 36.8 C 84 18 118/80 99 Intake & Output: Intake & Output 07/01/22 07/02/22 07/03/22 07/04/22 23:59 23:59 23:59 23:59 Intake Total 595 4418.334 3536.666 1340 Output Total 1 Balance 595 4417.334 3536.666 1340 - Objective General Appearance: positive: Mild distress (Grimaces in pain when she tries sit ting up in bed or readjusting her position.) Eyes Bilateral: positive: Normal inspection, PERRL, EOMI, No lid inflammation, Conjunctivae nml, No scleral icterus ENT: positive: ENT inspection nml, Pharynx nml, No signs of dehydration Neck: positive: Nml inspection, Thyroid nml, No JVD, Trachea midline Respiratory: positive: Chest non-tender, No respiratory distress, Breath sounds nml Cardiovascular: positive: Regular rate & rhythm, No murmur, No gallop Abdomen: positive: Tenderness (Tenderness in umbilicus, LUQ and LLQ with light palpation) Skin: positive: Color nml, No rash, Warm Extremities: positive: Non-tender, Full ROM, Nml appearance, No pedal edema Neurologic/Psychiatric: positive: Oriented x3, CN's nml (2-12), Motor nml, Sensation nml, Mood/affect nml - Lab Results Fish Bones: 07/04/22 04:59 07/04/22 04:59 Other Labs: Lab Results x24hrs 07/04/22 07/04/22 Range/Units 04:59 04:59 WBC 3.4 L (4.8-10.8) x10^3/uL RBC 2.95 L (4.20-5.40) 10^6/uL Hgb 9.8 L (12.0-16.0) g/dL Hct 30.8 L (37.0-47.0) % MCV 104.4 H (81.0-99.0) fL MCH 33.2 H (27.0-31.0) pg MCHC 31.8 L (32.0-36.0) g/dL RDW 15.6 H (12.0-15.0) % Plt Count 158 (130-450) 10^3/uL MPV 10.4 (7.9-10.8) fL Neut # (Auto) 1.2 L (1.5-6.6) 10^3/uL Lymph # (Auto) 1.7 (1.5-3.5) 10^3/uL [place] # (Auto) 0.4 (0.0-1.0) 10^3/uL Eos # (Auto) 0.1 (0.0-0.7) 10^3/uL Baso # (Auto) 0.0 (0.0-0.1) 10^3/uL Absolute Nucleated RBC 0.00 x10^3/uL Nucleated RBC % 0.0 /100WBC Sodium 138 (135-145) mmol/L Potassium 3.5 (3.5-5.0) mmol/L Chloride 109 (101-111) mmol/L Carbon Dioxide 23 (21-32) mmol/L Anion Gap 6.0 (6-13) BUN < 5 L (6-20) mg/dL Creatinine 0.5 (0.4-1.0) mg/dL Estimated GFR (MDRD) 140 (>89) Glucose 106 H (70-100) mg/dL Calcium 7.9 L (8.5-10.3) mg/dL Magnesium 1.6 L (1.7-2.8) mg/dL Total Bilirubin 0.2 (0.2-1.0) mg/dL AST 22 (10-42) IU/L ALT 25 (10-60) IU/L Alkaline Phosphatase 208 H (42-121) IU/L Total Protein 4.8 L (6.7-8.2) g/dL Albumin 2.5 L (3.2-5.5) g/dL Globulin 2.3 (2.1-4.2) g/dL Albumin/Globulin Ratio 1.1 (1.0-2.2) - Diagnostic Imaging Diagnostic Imaging Results: positive: Final report reviewed Diagnostic Imaging Comments: CT: 4.6 cm cystic lesion of head of pancreas, which appears improved from prior CT on 05/10/22. Moderate inflammation surrounding the pancreas indicative of pancreatitis MRCP: 1. Slight decrease in size of proteinaceous/hemorrhagic fluid collection involving the proximal pancreas consistent with walled off necrosis from necrotizing pancreatitis 2. No pancreatic, biliary, or intestinal obstruction 3. Peripancreatic edema in tail of pancreas, mesentery, peritoneum, and retroperitoneum consistent with acute on chronic pancreatitis Sepsis Event Note (H) - Evaluation Current Stage of Sepsis: Ruled out (No fever, tachycardia, tachypnea, or leuk ocytosis) Assessment/Plan - Problem List (1) Acute on chronic pancreatitis Impression: Most likely cause of her abdominal pain. Her MRCP results were consistent necrosis of the proximal pancreas and peripancreatic edema in the pancreas tail, mesentery, peritoneum, and retroperitoneum indicative of acute on chronic panc reatitis. Plan:Will advance to soft diet today. She was previously on clear liquids and jell-O. Will continue narcotics for pain management. If her pain improves to baseline and she can tolerate food well, she may be discharged tomorrow. (2) Pancreatic pseudocyst Impression: Most likely not the cause of abdominal pain since smaller than previously measured on CT. Plan: Advanced to soft diet. Will put back on Pancrease if tolerating food well. Waiting on cyst to continue decreasing in size for drainage. Continue with long- term plan to abstain from alcohol. (3) Nausea and vomiting Impression: She has nausea but no vomiting. Most likely due to pancreatic inflammation. Her MRCP indicated necrotizing pancreatitis and peripancreatic edema in tail of pancreas, mesentery, peritoneum, and retroperitoneum consistent with acute on chronic pancreatitis. Plan: Will continue zofran, clear liquids, and saltine crackers. She can eat soft foods as tolerated. Qualifiers: Vomiting type: unspecified Qualified Code(s): R11.2 - Nausea with vomiting, unspecified Qualifiers: Vomiting type: unspecified Qualified Code(s): R11.2 - Nausea with vomiting, unspecified (4) Diarrhea due to malabsorption Impression: Due to pancreatic inflammation and malnutrition. Her BUN, calcium and magnesium are low, consistent with poor diet and malnutrition. Plan: Will advance her diet. Will restart Pancrease if PO food tolerated. Recommend alcohol cessation and increased lean protein, fruits and vegetables in her diet. (5) Elevated liver enzymes Impression: AST 22 now normal, was elevated: 20 on 07/02/22 67 on 07/03/22 Alkaline phosphatase elevated: 88 on 07/02/22 237 on 07/03/22 208 on 07/04/22 Her laboratory values are improving. Her MRCP indicated no pancreatic, biliary, or intestinal obstruction. Plan: Will continue to monitor. Surgical intervention is not needed at this time.
[2022-07-04] MEDS: MAG HYDROX/AL HYDROX/SIMETH 30 ML UDC PO PRN (18:29)
[2022-07-05] MEDS: ACETAMINOPHEN 1,000 MG/100 ML 1,000 MG/100 ML BAG IV PRN ×3 (00:19→17:09)
[2022-07-05] MEDS: HYDROmorphone 1 MG/ML CARPUJECT IVP PRN ×5 (00:38→14:49)
[2022-07-05] MEDS: SODIUM CHLORIDE FLUSH 0.9% 10 ML SYRINGE IVP SCH ×3 (00:38→17:22)
[2022-07-05 06:00] LABS: FERRITIN 172.5 ng/mL (11.0-306.8)
[2022-07-05] MEDS: ONDANSETRON 4 MG/2 ML VIAL IVP PRN ×3 (08:05→19:47)
[2022-07-05] MEDS: D5NS W/20 MEQ KCL 1,000 ML IV SCH ×2 (08:07→19:49)
[2022-07-05] MEDS: LIPASE/PROTEASE/AMYLASE CAPSULE PO SCH ×3 (08:36→17:08)
[2022-07-05] MEDS: KETOROLAC 15 MG/ML VIAL IVP PRN ×3 (08:43→21:02)
[2022-07-05 08:57] LABS: ABSOLUTE RETICS # AUTO 0.045 10^6/uL (0.020-0.110); RED BLOOD COUNT 3.37 10^6/uL (4.20-5.40); RETICULOCYTE COUNT % (AUTO) 1.33 % (0.5-2.3)
[2022-07-05 09:19] LABS: % IRON SATURATION 31 % (20-50); IRON 58 ug/dL (28-170); TOTAL IRON BINDING CAPACITY 189 ug/dL (250-450); TRANSFERRIN 135 mg/dL (192-382)
[2022-07-05] MEDS: SODIUM CHLORIDE FLUSH 0.9% 10 ML SYRINGE IVP PRN ×2 (11:32→19:48)
--- NOTE | 2022-07-05 12:41 | PROVIDER PROGRESS NOTE ---
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 Her CT scan of her abdomen shows smaller pancreatic pseudocyst and inflammation of pancreas. Her MRCP indicates peripancreatic edema in tail of the pancreas, mesentery, peritoneum, and retroperitoneum consistent with acute on chronic pancreatitis. She reports that her baseline abdominal pain is 3-4/10 without pain medication. She was pretty emotional when I fist came into the room today. She was very teary eyed and was saying that she didn't feel like herself and she was having anxiety. She was saying that she kept thinking about what it will be like when she goes home and the mean things that her mom is going to say to her. She said that her chest has felt tight this morning because she feels so anxious. When she held out her hands she is a little shaky. She says that her abdominal pain was 8/10 before she took dilaudid this morning. She says her pain is now 7/10. She indicates that yesterday her pain was in her LUQ and her left lower back, but today she is having sharp pain in the RUQ and crampy pain in her RLQ and LLQ. She says that she has low level pain lying in bed at 30 degrees, and that it gets worse when she sits up or walks. After we talked for a few minutes she became less tearful and did not seem to be in as much pain. She says she doesn't want to be in the hospital but she is afraid to go home. She says that her friends and family don't believe that she has a medical problem, they just think she wants pain meds. She said that she likes talking with us in the hospital because we can see her test results and imaging and we know that she has a medical problem that isn't her fault. She realizes that once her pain is managed and she is off the dilaudid that she can be discharged. She said that she just needs today to mentally prepare and that she thinks she will feel better tomorrow and could go home. When I was leaving the room she got out of bed to use the bathroom and did not have any additional pain. She says she felt nauseous this morning, but that cleared up once she took zofran. She denied vomiting. She indicates that her stool is still loose. She is passing gas. She is urinating regularly. She denies shortness of breath. She denies weakness, numbness, or tingling in extremities. She is able to eat solid foods and drink liquids without further abdominal discomfort. Objective - Vital Signs/Intake & Output Vital Signs: Vital Signs x48h Temp Pulse Resp BP Pulse Ox 07/05/22 08:24 36.7 C 77 16 117/78 98 Intake & Output: Intake & Output 07/02/22 07/03/22 07/04/22 07/05/22 23:59 23:59 23:59 23:59 Intake Total 4418.334 3536.666 3550 1641.667 Output Total 1 Balance 4417.334 3536.666 3550 1641.667 - Objective General Appearance: positive: Alert, Mild distress, Anxious (She is very emotional and crying. Her hands tremble when she holds them out.) Eyes Bilateral: positive: Normal inspection, PERRL, EOMI, No lid inflammation, Conjunctivae nml, No scleral icterus, Other (Her eyes look puffy from her crying) ENT: positive: ENT inspection nml, Pharynx nml, No signs of dehydration Neck: positive: Nml inspection, Thyroid nml, No JVD, Trachea midline Respiratory: positive: No respiratory distress, Breath sounds nml Cardiovascular: positive: Regular rate & rhythm, No murmur, No gallop Peripheral Pulses: 2+ Radial (R), 2+ Radial (L), 2+ Dorsalis pedis (R), 2+ Dorsalis pedis (L) Abdomen: positive: Nml bowel sounds, No distention, Tenderness (RUQ, RLQ, LLQ with and without light palpation) Skin: positive: Color nml, No rash, Warm Extremities: positive: Non-tender, Full ROM, Nml appearance, No pedal edema Neurologic/Psychiatric: positive: Oriented x3, CN's nml (2-12), Motor nml, Sensation nml, Depressed mood/affect - Lab Results Fish Bones: 07/04/22 04:59 07/04/22 04:59 Other Labs: Lab Results x24hrs 07/05/22 07/05/22 07/05/22 Range/Units 08:45 08:45 08:45 RBC 3.37 L (4.20-5.40) 10^6/uL Reticulocyte % (Auto) 1.33 (0.5-2.3) % Absolute Retic 0.045 (0.020-0.110) 10^6/uL Iron 58 (28-170) ug/dL TIBC 189 L (250-450) ug/dL % Saturation 31 (20-50) % Transferrin 135 L (192-382) mg/dL Ferritin (11.0-306.8) ng/mL Lactate Dehydrogenase (91-225) IU/L Vitamin B12 (180-914) pg/mL Folate 5.70 L (5.90 - >24.8) ng/mL 07/05/22 07/05/22 Range/Units 04:21 04:21 RBC (4.20-5.40) 10^6/uL Reticulocyte % (Auto) (0.5-2.3) % Absolute Retic (0.020-0.110) 10^6/uL Iron (28-170) ug/dL TIBC (250-450) ug/dL % Saturation (20-50) % Transferrin (192-382) mg/dL Ferritin 172.5 (11.0-306.8) ng/mL Lactate Dehydrogenase 115 (91-225) IU/L Vitamin B12 364 (180-914) pg/mL Folate (5.90 - >24.8) ng/mL - Diagnostic Imaging Diagnostic Imaging Results: positive: Final report reviewed Diagnostic Imaging Comments: CT: 4.6 cm cystic lesion of head of pancreas, which appears improved from prior CT on 05/10/22. Moderate inflammation surrounding the pancreas indicative of pancreatitis MRCP: 1. Slight decrease in size of proteinaceous/hemorrhagic fluid collection involving the proximal pancreas consistent with walled off necrosis from necroti zing pancreatitis 2. No pancreatic, biliary, or intestinal obstruction 3. Peripancreatic edema in tail of pancreas, mesentery, peritoneum, and retroperitoneum consistent with acute Sepsis Event Note (H) - Evaluation Current Stage of Sepsis: Ruled out (No fever, tachycardia, tachypnea, or leukocytosis) Assessment/Plan - Problem List (1) Acute on chronic pancreatitis Impression: Most likely cause of her abdominal pain. Her MRCP results were consistent necrosis of the proximal pancreas and peripancreatic edema in the pancreas tail, mesentery, peritoneum, and retroperitoneum indicative of acute on chronic pancreatitis. Plan:Continue normal diet as tolerated. May taper off narcotic pain medication. If her pain improves to baseline and she continues to tolerate food well, she may be discharged home tomorrow. (2) Anxiety about health Impression: This may be contributing to her abdominal pain. She has been emotional and crying everyday about her health. She is concerned about the disapproval from her family and friends and fearful of returning home. She is aware that if her pain is controlled to her baseline that she can be discharged and she says she is not prepared for that emotionally. Plan: Will taper off her narcotic pain medication and monitor her symptoms. (3) Pancreatic pseudocyst Impression: Most likely not the cause of abdominal pain since smaller than previously measured on CT. Plan: Continue normal diet. She was put back on Pancrease yesterday, will continue since seems to be tolerating food well. Waiting on cyst to continue decreasing in size for drainage. Continue with long-term plan to abstain from alcohol. (4) Nausea and vomiting Impression: She has nausea but no vomiting. Most likely due to pancreatic inflammation, and possibly from anxiety about her health and returning home to family disapproval. Her MRCP indicated necrotizing pancreatitis and peripancreatic edema in tail of pancreas, mesentery, peritoneum, and retroperitoneum consistent with acute on chronic pancreatitis. Plan: Will continue zofran, clear liquids, and saltine crackers. She can eat normal food as tolerated. Qualifiers: Vomiting type: unspecified Qualified Code(s): R11.2 - Nausea with vomiting, unspecified Qualifiers: Vomiting type: unspecified Qualified Code(s): R11.2 - Nausea with vomiting, unspecified Qualifiers: Vomiting type: unspecified Qualified Code(s): R11.2 - Nausea with vomiting, unspecified (5) Diarrhea due to malabsorption Impression: Due to pancreatic inflammation and malnutrition. Her BUN, calcium, magnesium, and folate are low, consistent with poor diet and malnutrition. Plan: Continue normal diet. Continue Pancrease. Give multivitamin, B12, and folate supplementation. Recommend alcohol cessation and increased lean protein, fruits and vegetables in her diet.
[2022-07-05] MEDS: PRENATAL VITAMIN TABLET PO SCH (17:22)
[2022-07-05] MEDS: CYANOCOBALAMIN 500 MCG TABLET PO SCH (17:24)
[2022-07-05] MEDS: MAG HYDROX/AL HYDROX/SIMETH 30 ML UDC PO PRN (19:48)
[2022-07-05] MEDS: PROCHLORPERAZINE 10 MG/2 ML VIAL IVP PRN (21:04)
[2022-07-06] MEDS: SODIUM CHLORIDE FLUSH 0.9% 10 ML SYRINGE IVP SCH ×3 (01:00→16:48)
[2022-07-06] MEDS: KETOROLAC 15 MG/ML VIAL IVP PRN ×2 (04:42→10:52)
[2022-07-06] MEDS: ONDANSETRON 4 MG/2 ML VIAL IVP PRN ×2 (04:42→16:48)
[2022-07-06] MEDS: SODIUM CHLORIDE FLUSH 0.9% 10 ML SYRINGE IVP PRN (04:42)
[2022-07-06 05:01] LABS: BASOPHILS % (AUTO) 0.4 %; EOSINOPHILS # (AUTO) 0.2 10^3/uL (0.0-0.7); EOSINOPHILS % (AUTO) 3.8 %; HCT - HEMATOCRIT 34.9 % (37.0-47.0); HGB - HEMOGLOBIN 11.4 g/dL (12.0-16.0); LYMPHOCYTES # (AUTO) 1.2 10^3/uL (1.5-3.5); LYMPHOCYTES % (AUTO) 24.4 %; MEAN CORPUSCULAR HEMOGLOBIN 33.2 pg (27.0-31.0); MEAN CORPUSCULAR HGB CONC 32.7 g/dL (32.0-36.0); MEAN CORPUSCULAR VOLUME 101.7 fL (81.0-99.0); MEAN PLATELET VOLUME 10.5 fL (7.9-10.8); MONOCYTES # (AUTO) 0.5 10^3/uL (0.0-1.0); MONOCYTES % (AUTO) 8.9 %; NEUTROPHILS # (AUTO) 3.1 10^3/uL (1.5-6.6); NEUTROPHILS % (AUTO) 62.1 %; PLT - PLATELET COUNT 235 10^3/uL (130-450); RED BLOOD COUNT 3.43 10^6/uL (4.20-5.40); RED CELL DISTRIBUTION WIDTH 15.3 % (12.0-15.0)
[2022-07-06 05:22] LABS: ALBUMIN 2.9 g/dL (3.2-5.5); ALKALINE PHOSPHATASE 222 IU/L (42-121); ALT ALANINE AMINOTRANSFERASE 24 IU/L (10-60); AST ASPARTATE AMINOTRANSFERASE 24 IU/L (10-42); BILIRUBIN,TOTAL 0.8 mg/dL (0.2-1.0); BUN - BLOOD UREA NITROGEN < 5 mg/dL (6-20); CALCIUM 8.4 mg/dL (8.5-10.3); CARBON DIOXIDE - CO2 23 mmol/L (21-32); CHLORIDE 108 mmol/L (101-111); CREATININE 0.6 mg/dL (0.4-1.0); GFR - MDRD 114 (>89); GLUCOSE 124 mg/dL (70-100); POTASSIUM 4.1 mmol/L (3.5-5.0); SODIUM 137 mmol/L (135-145); TOTAL PROTEIN 5.8 g/dL (6.7-8.2)
[2022-07-06] MEDS: D5NS W/20 MEQ KCL 1,000 ML IV SCH ×2 (06:10→18:45)
[2022-07-06] MEDS: oxyCODONE 5 MG TABLET PO PRN ×5 (08:01→21:46)
[2022-07-06] MEDS: LIPASE/PROTEASE/AMYLASE CAPSULE PO SCH ×3 (08:03→16:47)
[2022-07-06] MEDS: PRENATAL VITAMIN TABLET PO SCH (08:03)
[2022-07-06] MEDS: CYANOCOBALAMIN 500 MCG TABLET PO SCH (08:03)
[2022-07-06] MEDS: PROCHLORPERAZINE 10 MG/2 ML VIAL IVP PRN ×2 (08:08→20:33)
--- NOTE | 2022-07-06 10:55 | PROVIDER PROGRESS NOTE ---
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 She indicated to me today that she accidently drank her sisters Viji Sanchez, thinking that it was a seltzer water. She previously told me that she had not consumed any alcohol and that the cause of her acute pancreatitis was from eating a steak. Her CT scan of her abdomen shows smaller pancreatic pseudocyst and inflammation of pancreas. Her MRCP indicates peripancreatic edema in tail of the pancreas, mesentery, peritoneum, and retroperitoneum consistent with acute on chronic pancreatitis. She reports that her baseline abdominal pain is 3-4/10 without pain medication. She indicates that she is having 7/10 pain today in her LUQ that radiates to the umbilicus on toradol and morphine. She does not appear to be in pain. She is talking briskly, smiling, taking normal and deep breathes, and sitting upright. She was unconsciously bringing her knees into flexion toward her abdomen with no signs of distress. Her abdomen is soft. She has normal bowel sounds. She indicates pain on light palpation in the LUQ, however she does not grimace or guard. She is asking for dilaudid again for "emergency" pain relief. She says that last night her pain went to 8/10 and her current pain medications did not improve her symptoms. She says that she is afraid to ask Dr. Reese or the nurses for this because they scare her and make her feel like she is a drug addict. She immediately started crying when I asked her about going home. She says that she is still having anxiety and is afraid to go home. She says that she wants to see her kids but she knows that her mom will have attitude with her. She indicates that her mom has told her that she can move out but she cannot take the kids with her and she is afraid to lose her children. She says her chest hurts because of anxiety. She acknowledged that her abdominal pain is worse because she feels so anxious. She thinks that her diarrhea is worse because of stress too. We talked about her seeing a mental health counselor outpatient. Since she is still having steatorrhea, I recommended a low-fat, high protein diet including lean meat and yogurt, and drinking a protein-supplement such as BOOST. She denies nausea and vomiting. When I asked if she feels ready to be discharged, she said that she knows she was supposed to leave today but she needs to stay until tomorrow. Objective - Vital Signs/Intake & Output Vital Signs: Vital Signs x48h Temp Pulse Resp BP Pulse Ox 07/06/22 08:05 36.9 C 86 18 126/78 98 Intake & Output: Intake & Output 07/03/22 07/04/22 07/05/22 07/06/22 23:59 23:59 23:59 23:59 Intake Total 3536.666 3550 3301.667 1120 Output Total 2 Balance 3536.666 3550 3301.667 1118 - Objective General Appearance: positive: No acute distress, Anxious Eyes Bilateral: positive: Normal inspection, PERRL, EOMI, No lid inflammation, Conjunctivae nml, No scleral icterus, Other (Crying) ENT: positive: ENT inspection nml, Pharynx nml, No signs of dehydration Neck: positive: Nml inspection, Thyroid nml, No JVD Respiratory: positive: No respiratory distress, Breath sounds nml Cardiovascular: positive: Regular rate & rhythm, No murmur, No gallop Peripheral Pulses: 2+ Radial (R), 2+ Radial (L), 2+ Dorsalis pedis (R), 2+ Dorsalis pedis (L) Abdomen: positive: Nml bowel sounds, No distention, Tenderness (RUQ and umbilicus) Back: positive: Nml inspection Skin: positive: Color nml, No rash, Warm Extremities: positive: Non-tender, Full ROM, No pedal edema, Other (local irritation on left arm from IV placement) Neurologic/Psychiatric: positive: Oriented x3, CN's nml (2-12), Motor nml, Sens ation nml, Depressed mood/affect - Lab Results Fish Bones: 07/06/22 04:20 07/06/22 04:20 Other Labs: Lab Results x24hrs 07/06/22 07/06/22 Range/Units 04:20 04:20 WBC 5.0 (4.8-10.8) x10^3/uL RBC 3.43 L (4.20-5.40) 10^6/uL Hgb 11.4 L (12.0-16.0) g/dL Hct 34.9 L (37.0-47.0) % MCV 101.7 H (81.0-99.0) fL MCH 33.2 H (27.0-31.0) pg MCHC 32.7 (32.0-36.0) g/dL RDW 15.3 H (12.0-15.0) % Plt Count 235 (130-450) 10^3/uL MPV 10.5 (7.9-10.8) fL Neut # (Auto) 3.1 (1.5-6.6) 10^3/uL Lymph # (Auto) 1.2 L (1.5-3.5) 10^3/uL Dougherty # (Auto) 0.5 (0.0-1.0) 10^3/uL Eos # (Auto) 0.2 (0.0-0.7) 10^3/uL Baso # (Auto) 0.0 (0.0-0.1) 10^3/uL Absolute Nucleated RBC 0.00 x10^3/uL Nucleated RBC % 0.0 /100WBC Sodium 137 (135-145) mmol/L Potassium 4.1 (3.5-5.0) mmol/L Chloride 108 (101-111) mmol/L Carbon Dioxide 23 (21-32) mmol/L Anion Gap 6.0 (6-13) BUN < 5 L (6-20) mg/dL Creatinine 0.6 (0.4-1.0) mg/dL Estimated GFR (MDRD) 114 (>89) Glucose 124 H (70-100) mg/dL Calcium 8.4 L (8.5-10.3) mg/dL Total Bilirubin 0.8 (0.2-1.0) mg/dL AST 24 (10-42) IU/L ALT 24 (10-60) IU/L Alkaline Phosphatase 222 H (42-121) IU/L Total Protein 5.8 L (6.7-8.2) g/dL Albumin 2.9 L (3.2-5.5) g/dL Globulin 2.9 (2.1-4.2) g/dL Albumin/Globulin Ratio 1.0 (1.0-2.2) - Diagnostic Imaging Diagnostic Imaging Results: positive: Final report reviewed Diagnostic Imaging Comments: CT: 4.6 cm cystic lesion of head of pancreas, which appears improved from prior CT on 05/10/22. Moderate inflammation surrounding the pancreas indicative of pancreatitis MRCP: 1. Slight decrease in size of proteinaceous/hemorrhagic fluid collection involving the proximal pancreas consistent with walled off necrosis from necrotizing pancreatitis 2. No pancreatic, biliary, or intestinal obstruction 3. Peripancreatic edema in tail of pancreas, mesentery, peritoneum, and retroperitoneum consistent with acute Sepsis Event Note (H) - Evaluation Current Stage of Sepsis: Ruled out (No fever, tachycardia, tachypnea, or leukocytosis) Assessment/Plan - Problem List (1) Acute on chronic pancreatitis Impression: Cause of her abdominal pain, which may be exacerbated by stress. Her MRCP results are consistent necrosis of the proximal pancreas and peripancreatic edema in the pancreas tail, mesentery, peritoneum, and retroperitoneum indicative of acute on chronic pancreatitis. Plan: Continue normal diet as tolerated. She was taken off dilaudid yesterday. Waiting on her to let us know if her pain improves. Once its back at baseline and she continues to tolerate food well, she may be discharged home today or tomorrow. (2) Anxiety about health Impression: This may be contributing to her abdominal pain. She has been emotional and crying everyday about mental and physical health. She is concerned about disapproval from her family when she returns home. Her family has a lot of anger toward her alcoholism and return visits to the hospital. Her mom is raising her kids, and has told her that she can move out whenever she wants but she's not taking the kids with her. She is aware that if her pain is controlled to her baseline, then she can be discharged home and this causes her distress. Plan: We are waiting for her to confirm that her pain level is tolerable. She should follow up with her PCP and a counselor once she discharges. We stopped dilaudid yesterday and we are monitoring her symptoms. (3) Pancreatic pseudocyst Impression: Most likely not the cause of abdominal pain since smaller than previously measured on CT. She is tolerating food well. Plan: Continue normal diet. Continue pancrease. Waiting on cyst to continue decreasing in size for drainage. Continue with long-term plan to abstain from alcohol. (4) Diarrhea due to malabsorption Impression: Due to pancreatic inflammation and malnutrition. Her BUN, calcium, magnesium, and folate are low, consistent with poor diet and malnutrition. Her glucose is e levated today. She eats and drinks a lot of simple sugars. The patient thinks that what caused her current acute pancreatitis was steak consumption so she is staying away from "heavy meat" right now. 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 She is positive for diarrhea, steatorrhea, and abdominal pain. Her albumin is low at 2.9, consistent with this condition. She is negative for peripheral edema or dyspnea. Plan: Dietary therapy to improve nutrition including low-fat, high-protein, medium-chain triglyceride diet. Recommended that patient drink BOOST high protein or Premier Protein drink 2-3 times per day. Showed patient that these c an be bought at local grocery stores, including [employer] and [employer]. Continue Pancrease. Give multivitamin, B12, and folate supplementation. Recommend alcohol cessation.
[2022-07-06] MEDS: ACETAMINOPHEN 1,000 MG/100 ML 1,000 MG/100 ML BAG IV PRN ×2 (13:28→20:38)
[2022-07-07] MEDS: PROCHLORPERAZINE 10 MG/2 ML VIAL IVP PRN (02:06)
[2022-07-07] MEDS: oxyCODONE 5 MG TABLET PO PRN ×2 (02:07→06:23)
[2022-07-07] MEDS: SODIUM CHLORIDE FLUSH 0.9% 10 ML SYRINGE IVP SCH ×2 (02:07→08:10)
[2022-07-07] MEDS: D5NS W/20 MEQ KCL 1,000 ML IV SCH ×2 (03:18→04:54)
--- NOTE | 2022-07-07 08:08 | Discharge Plan ---
Discharge Plan Problem Reviewed?: Yes Disposition: Home, Self Care Condition: Stable Prescriptions: oxyCODONE [Roxicodone] 5 mg PO Q4HR PRN #30 tab PRN Reason: Pain Diet: Regular (low fat small meals) Activity Restrictions: Activity as Tolerated Shower Restrictions: No Driving Restrictions: No Health Concerns: You have a history of alcohol abuse and recurrent pancreatitis. Unfortunately 1 of those episodes resulted in a large pancreatic cyst filled with fluid from inflammation. The cyst is gradually getting smaller. [facility] and that life insurance agent says that they do not need to drain at because it is getting smaller. You were also released to be followed [facility] since use of opioids for this long can lead to unintentional addiction for the patient. You have spoken to her once and stated that they have not called you back. You also stated that you accidentally drank a white claw thinking it was seltzer water. You returned with recurrence of your pain and it took us a few days with IV fluids, pain medicines and nausea medicines to get the pain under control and to allow you to be able to eat food. Plan of Treatment: Please see the [facility] life insurance agent at her regularly scheduled visit. Let them know that you were in the hospital again. Please also follow-up with the pain specialist ELIANE Wahl, [facility]. Care Goals: To stop drinking completely. To have no recurrence of abdominal pain. And have the pseudocyst resolve on its own. Assessment: Patient is alert, oriented, no episodes of emesis. Keeping food down. She is asking for oxycodone at discharge and 30 pills will be prescribed No Smoking: If you smoke, Please STOP! Call for help. Follow-up with: Celine Munguia ARNP [Physician No Access] - ROSEMARY VILLASEÑOR MD [Physician No Access] -
[2022-07-07] MEDS: LIPASE/PROTEASE/AMYLASE CAPSULE PO SCH (08:09)
[2022-07-07] MEDS: ACETAMINOPHEN 1,000 MG/100 ML 1,000 MG/100 ML BAG IV PRN (08:10)
[2022-07-07] MEDS: PRENATAL VITAMIN TABLET PO SCH (08:10)
[2022-07-07] MEDS: CYANOCOBALAMIN 500 MCG TABLET PO SCH (08:10)
[2022-07-07 08:24] LABS: ALBUMIN 2.5 g/dL (3.2-5.5); ALBUMIN/GLOBULIN RATIO 0.9 (1.0-2.2); ALKALINE PHOSPHATASE 165 IU/L (42-121); ALT ALANINE AMINOTRANSFERASE 21 IU/L (10-60); AST ASPARTATE AMINOTRANSFERASE 24 IU/L (10-42); BILIRUBIN,TOTAL 0.4 mg/dL (0.2-1.0); BUN - BLOOD UREA NITROGEN < 5 mg/dL (6-20); CALCIUM 8.2 mg/dL (8.5-10.3); CARBON DIOXIDE - CO2 24 mmol/L (21-32); CHLORIDE 108 mmol/L (101-111); CREATININE 0.7 mg/dL (0.4-1.0); GFR - MDRD 95 (>89); GLUCOSE 119 mg/dL (70-100); MAGNESIUM 1.6 mg/dL (1.7-2.8); POTASSIUM 4.3 mmol/L (3.5-5.0); SODIUM 137 mmol/L (135-145); TOTAL PROTEIN 5.2 g/dL (6.7-8.2)
[2022-07-07 08:27] VITALS: BP 115/79
--- NOTE | 2022-07-07 10:52 | DISCHARGE SUMMARY ---
Discharge Summary Admit Date: 07/01/22 Discharge Date: 07/07/22 Discharging Provider: Mamie Reese MD Primary Care Provider: DINAH So Code Status: Attempt Resuscitation Condition at Discharge: Stable Discharge Disposition: 01 Home, Self Care - DIAGNOSES Discharge Diagnoses with Status of Each Condition: 1. Acute pancreatitis without necrosis or infection 2. Alcohol abuse 3. Pseudocyst of the pancreas 4. Intestinal malabsorption with diarrhea 5. Anxiety about health 6. Nausea and vomiting 7. Abdominal pain - HPI History of Present Illness: This is a 36-year-old white female with a history of alcohol abuse, recurrent alcoholic pancreatitis, she has a pancreatic pseudocyst that has caused obstruction of the distal stomach in the past. She has tried to decrease her alcohol intake and goes to an addiction provider. She is followed by telegraphic typewriter operator, Dr. Bautista at [facility]. The plan from him is to have her remain off of alcohol to have the pseudocyst harden and shrink and then it can be removed. The patient was here approximately 2 months ago with abdominal pain, nausea and vomiting after some alcohol intake. She needed IV narcotics, bowel rest and IV fluids. Patient said that she did not drink alcohol in those 2 months except recently a few days ago "without realizing it" she had some alcohol intake that she thought was carbonated water. Following that she started to get abdominal pain 2 days ago and then diarrhea and shortly thereafter developed nausea and vomiting. She also uses cannabis and has been told to stop doing this. She came to our ER yesterdayand was found to have normal lipase levels but has needed narcotics for pain control and has needed IV antiemetics. She was given a saline bolus. CT scan of the abdomen was done that showed a smaller pancreatic pseudocyst and inflammation of the pancreas. Patient was housed in the ER while waiting for an inpatient bed to open in the hospital. The ED provider has reached out to the Hospitalist team today to continue to manage her abdominal pain still needing narcotics and her nausea and vomiting still needing IV fluids and IV antiemetics. - Past Medical History Cardiovascular: reports: None Respiratory: reports: None Neuro: reports: Headaches Endocrine/Autoimmune: reports: None GI: reports: GERD, Ulcers, Pancreatitis, Cholelithiasis TALENT PARTNER: reports: None : reports: Kidney stones HEENT: reports: None Psych: reports: Depression, Anxiety, Panic attacks Musculoskeletal: reports: None Derm: reports: None MRSA Hx?: No - Past Surgical History /TALENT PARTNER: reports: Other HEENT: reports: Tonsil/Adenoidectomy - CONSULTS | PROCEDURES Procedures: 1. Abdomen pelvis CT is with improving pancreatic pseudocyst when compared to previous CTs. Moderate inflammatory changes seen surrounding the pancreas. 2. MRCP done for rising bili and liver enzymes had slight decrease in size of the proteinaceous hemorrhagic fluid collection involving the proximal pancreas. Given history of necrotizing pancreatitis this is considered walled off necrosis. No pancreatic, biliary or intestinal obstruction. Peripancreatic edema involving the tail a small amount of the fluid in the mesentery, peritoneum and retroperitoneum consistent with acute on chronic pancreatitis. 3. Urine culture from June 30 with 10-50,000 colonies of polymicrobial growth indicating contamination. - HOSPITAL COURSE Hospital Course: The patient was placed on IV fluids for hydration, antiemetics, and IV opioids. She was made NPO. His pain gradually improved somewhat, a diet was started and she was advanced. CT scan shows that her pseudocyst is actually getting smaller. She says that her telegraphic typewriter operator that is following her says that they are waiting. They think this cyst may resolve on its own without need to have intervention. Other than 1 phone call she has not made follow-up with [facility] pain specialist. During the stay she made several references to the fact that she is worried that she is going to become addicted to opioids because she uses so much right now to control her pancreatitis pain. She is also very worried about going home because she knows that her mom is "mad at her". Mom is annoyed about the patient's drinking, and the fact that mom is having to take care of the patient's kids so much. With this current episode the patient says that she has been clean and sober except for 1 white claw that she accidentally drank. It took several days before she was able to feel like she was safe to go home from a pain perspective. I did withhold IV opioids the last 24 hours to 36 hours she was in the hospital. She did have diarrhea during her stay and we think she may be having malabsorption due to pancreatic dysfunction. She is on Creon. I have also asked her to be on a multivitamin, preferably , and take sublingual B12 and oral thiamine supplements. She is discharged in stable condition with instructions not to drink at all. Please follow-up with the telegraphic typewriter operator from [facility], and to follow-up with the pain specialist from . Temperature is 36.6. Heart rate 89. Blood pressure 115/79. Respirations 16. 99% on room air. Neck is supple. Lungs are clear. Regular rate and rhythm. The abdomen is still soft, normal bowel sounds. But there is slight tenderness in the mid epigastrium, just above the umbilicus, the left upper quadrant, and the left lower quadrant today. But no rebound or guarding. She is tolerating her food without any emesis. Greater than 30 minutes was spent coordinating discharge. She asked for refill of oxycodone and I have sent a prescription for 30 tablets. She is to continue her Creon, acamprosate, Zofran. - ALLERGIES Allergies/Adverse Reactions: Allergies Allergy/AdvReac Type Severity Reaction Status Date / Time No Known Drug Allergies Allergy Verified 06/30/22 14:17 - MEDICATIONS Home Medications: Ambulatory Orders Medication Instructions Recorded Confirmed LORazepam [Ativan] 1 mg PO Q6H PRN #15 tablet 04/08/22 06/30/22 Lipase/Protease/Amylase [Creon Dr 24,000 unit PO TIDWM 04/08/22 06/30/22 24,000 Unit Capsule] Acetaminophen [Tylenol] 650 mg PO Q6H PRN 04/09/22 06/30/22 Acamprosate Calcium 2 tab PO TID 07/01/22 07/01/22 Ondansetron HCl 1 tab PO QID PRN 07/01/22 07/01/22 polyethylene glycoL 3350 17 g PO DAILY PRN 07/01/22 07/01/22 [Polyethylene Glycol 3350] Cyanocobalamin [Vitamin B-12] 500 mcg PO DAILY tab 07/07/22 oxyCODONE [Roxicodone] 5 mg PO Q4HR PRN #30 tab 07/07/22 - LABS Result Diagrams: 07/06/22 04:20 07/07/22 07:50 - SEPSIS Current Stage of Sepsis: Ruled out (No fever, tachycardia, tachypnea, or leukocytosis)
== END 2022-07-07 09:50 | disposition home or self-care (01) | DRG 438 ==
LOC: EDUNIT# → ED 14:13 → MS2 07-01 18:04 → OBSVTOIN 07-03 14:39
PROVIDERS: ADMIT Internal Medicine; ATTEND Specialist
DX: K86.3 Pseudocyst of pancreas (principal); K85.90 Acute pancreatitis without necrosis or infection, unspecified; K90.9 Intestinal malabsorption, unspecified; E87.1 Hypo-osmolality and hyponatremia; K86.1 Other chronic pancreatitis; F41.9 Anxiety disorder, unspecified; R11.2 Nausea with vomiting, unspecified; F10.10 Alcohol abuse, uncomplicated; K21.9 Gastro-esophageal reflux disease without esophagitis; F32.A Depression, unspecified; R19.7 Diarrhea, unspecified; F17.210 Nicotine dependence, cigarettes, uncomplicated; E86.1 Hypovolemia
CPT/HCPCS: 36415; 74177; 74183; 80053; 80320; 81001; 81025; 82607; 82728; 82746; 83540; 83615; 83690; 83735; 84466; 85025; 85045; 87086; 87633; 96365; 96366; 96375; 96376; 99284; 99285; A9270; A9585; G0378; J0131; J1170; Q9967; 81003

== ENCOUNTER 2022-07-29 08:51 | Outpatient (CLI) | payer MEDICAID | END 2022-07-29 08:52 | disposition critical access hospital (66) | LOC: EMS 08:51 | DX: R10.10 Upper abdominal pain, unspecified (principal); R11.0 Nausea; R42 Dizziness and giddiness | CPT/HCPCS: A0425; A0427; A0999 ==

== ENCOUNTER 2022-07-29 09:14 | Observation (INO) | payer MEDICAID ==
[2022-07-29 09:32] LABS: BASOPHILS % (AUTO) 0.5 %; EOSINOPHILS # (AUTO) 0.1 10^3/uL (0.0-0.7); EOSINOPHILS % (AUTO) 1.2 %; HCT - HEMATOCRIT 41.6 % (37.0-47.0); HGB - HEMOGLOBIN 13.7 g/dL (12.0-16.0); LYMPHOCYTES # (AUTO) 1.3 10^3/uL (1.5-3.5); LYMPHOCYTES % (AUTO) 16.9 %; MEAN CORPUSCULAR HEMOGLOBIN 32.6 pg (27.0-31.0); MEAN CORPUSCULAR HGB CONC 32.9 g/dL (32.0-36.0); MEAN PLATELET VOLUME 10.9 fL (7.9-10.8); MONOCYTES # (AUTO) 0.4 10^3/uL (0.0-1.0); MONOCYTES % (AUTO) 5.2 %; NEUTROPHILS # (AUTO) 5.9 10^3/uL (1.5-6.6); NEUTROPHILS % (AUTO) 75.9 %; PLT - PLATELET COUNT 183 10^3/uL (130-450); RED CELL DISTRIBUTION WIDTH 14.3 % (12.0-15.0); WHITE BLOOD COUNT 7.8 x10^3/uL (4.8-10.8)
[2022-07-29 09:54] LABS: ALBUMIN 4.2 g/dL (3.2-5.5); ALBUMIN/GLOBULIN RATIO 1.4 (1.0-2.2); BILIRUBIN,TOTAL 0.4 mg/dL (0.2-1.0); CALCIUM 9.4 mg/dL (8.5-10.3); CREATININE 0.6 mg/dL (0.4-1.0); POTASSIUM 3.7 mmol/L (3.5-5.0); TOTAL PROTEIN 7.2 g/dL (6.7-8.2)
[2022-07-29] MEDS ORDERED: ONDANSETRON 4 MG/2 ML VIAL IVP STA ×2 (10:28→17:53)
[2022-07-29] MEDS ORDERED: SODIUM CHLORIDE 0.9% 1,000 ML IV STA ×3 (10:28→15:08)
[2022-07-29] MEDS ORDERED: HYDROmorphone 1 MG/ML CARPUJECT IVP STA ×5 (10:28→17:53)
[2022-07-29 11:00] LABS: BILIRUBIN,URINE NEGATIVE (NEGATIVE); GLUCOSE, URINE (UA) NEGATIVE (NEGATIVE); KETONES,URINE (UA) NEGATIVE (NEGATIVE); LEUKOCYTE ESTERASE, URINE NEGATIVE (NEGATIVE); NITRITE,URINE NEGATIVE (NEGATIVE); OCCULT BLOOD,URINE NEGATIVE (NEGATIVE); PROTEIN,URINE NEGATIVE (NEGATIVE); UROBILINOGEN,URINE 0.2 (NORMAL) E.U./dL (NORMAL)
[2022-07-29 11:03] LABS: CLARITY,URINE CLEAR (CLEAR); HCG UR QUAL NEGATIVE
--- NOTE | 2022-07-29 11:05 | ED Physician Documentation ---
PD HPI ABD PAIN - Stated complaint Stated Complaint: ABD PX - Chief complaint Chief Complaint: Abd Pain - History obtained from History obtained from: Patient - History of Present Illness Pain level max: 10 Pain level now: 10 Quality: Aching, Dull, Pain Location: Epigastric Associated symptoms: Nausea, Vomiting, Diarrhea. No: Fever, Hematemesis, Constipation, Melena, Hematochezia, Dysuria, Hematuria Similar symptoms before: Diagnosis (Chronic pancreatitis) - Additional information Additional information: Patient is a 36-year-old female with abdominal pain. She states that it is epigastric. She has chronic pancreatitis with pancreatic pseudocyst. Nothing makes it better or worse. She denies any alcohol use. She has had nausea and vomiting as well. Has chronic diarrhea as well. Review of Systems Constitutional: denies: Fever, Chills Skin: denies: Rash Musculoskeletal: denies: Neck pain, Back pain Neurologic: denies: Headache PD PAST MEDICAL HISTORY - Past Medical History Past Medical History: Yes Cardiovascular: None Respiratory: None Neuro: Headaches Endocrine/Autoimmune: None GI: GERD, Ulcers, Pancreatitis, Cholelithiasis MANNEQUIN MAKER: None : Kidney stones HEENT: None Psych: Depression, Anxiety, Panic attacks Musculoskeletal: None Derm: None - Past Surgical History Past Surgical History: Yes /MANNEQUIN MAKER: Other HEENT: Tonsil/Adenoidectomy - Present Medications Home Medications: Ambulatory Orders Medication Instructions Recorded Confirmed LORazepam [Ativan] 1 mg PO Q6H PRN #15 tablet 04/08/22 06/30/22 Lipase/Protease/Amylase [Creon Dr 24,000 unit PO TIDWM 04/08/22 06/30/22 24,000 Unit Capsule] Acetaminophen [Tylenol] 650 mg PO Q6H PRN 04/09/22 06/30/22 Acamprosate Calcium 2 tab PO TID 07/01/22 07/01/22 Ondansetron HCl 1 tab PO QID PRN 07/01/22 07/01/22 polyethylene glycoL 3350 17 g PO DAILY PRN 07/01/22 07/01/22 [Polyethylene Glycol 3350] Cyanocobalamin [Vitamin B-12] 500 mcg PO DAILY tab 07/07/22 oxyCODONE [Roxicodone] 5 mg PO Q4HR PRN #30 tab 07/07/22 - Allergies Allergies/Adverse Reactions: Allergies Allergy/AdvReac Type Severity Reaction Status Date / Time No Known Drug Allergies Allergy Verified 07/29/22 09:24 - Social History Does the pt smoke?: Yes Smoking Status: Current every day smoker Does the pt drink ETOH?: Yes Does the pt have substance abuse?: Yes - Immunizations Immunizations are current?: Yes - POLST Patient has POLST: No POLST Status: Full Code PD ED PE NORMAL - Vitals Vital signs reviewed: Yes - General General: Alert and oriented X 3, No acute distress - HEENT HEENT: Moist mucous membranes - Cardiac Cardiac: RRR, Strong equal pulses - Respiratory Respiratory: No respiratory distress, Clear bilaterally - Abdomen Abdomen: Soft, Non distended, Other (Tender to palpation epigastric. No peritoneal signs.) - Derm Derm: Warm and dry, No rash - Extremities Extremities: No edema, No calf tenderness / cord - Neuro Neuro: Alert and oriented X 3 - Psych Psych: Normal mood, Normal affect Results - Vitals Vitals: Vital Signs - 24 hr 07/29/22 07/29/22 07/29/22 09:18 11:26 14:14 Temperature 37.1 C Heart Rate 111 H 89 88 Respiratory 20 14 13 Rate Blood Pressure 136/102 H 148/108 H O2 Saturation 99 100 98 07/29/22 07/29/22 07/29/22 14:15 16:00 17:13 Temperature Heart Rate 83 83 81 Respiratory 10 L 19 14 Rate Blood Pressure 142/108 H 129/105 H 121/95 H O2 Saturation 99 100 98 07/29/22 18:11 Temperature Heart Rate 83 Respiratory 12 Rate Blood Pressure 123/97 H O2 Saturation 96 Oxygen O2 Source Room air - EKG (time done) 0916 Rate: Rate (enter#) (113) Rhythm: Sinus tachycardia [place]: Normal Intervals: Normal [place] QRS: Normal Ischemia: Normal ST segments - Labs Labs: Laboratory Tests 07/29/22 07/29/22 07/29/22 09:20 09:20 10:49 WBC 7.8 RBC 4.20 Hgb 13.7 Hct 41.6 MCV 99.0 MCH 32.6 H MCHC 32.9 RDW 14.3 Plt Count 183 MPV 10.9 H Neut # (Auto) 5.9 Lymph # (Auto) 1.3 L Gooding # (Auto) 0.4 Eos # (Auto) 0.1 Baso # (Auto) 0.0 Absolute Nucleated RBC 0.00 Nucleated RBC % 0.0 Sodium 133 L Potassium 3.7 Chloride 106 Carbon Dioxide 19 L Anion Gap 8.0 BUN 9 Creatinine 0.6 Estimated GFR (MDRD) 114 Glucose 115 H Calcium 9.4 Total Bilirubin 0.4 AST 14 ALT 14 Alkaline Phosphatase 90 Total Protein 7.2 Albumin 4.2 Globulin 3.0 Albumin/Globulin Ratio 1.4 Lipase 31 Urine Color YELLOW Urine Clarity CLEAR Urine pH 6.0 Ur Specific [place] 1.010 Urine Protein NEGATIVE Urine Glucose (UA) NEGATIVE Urine Ketones NEGATIVE Urine Occult Blood NEGATIVE Urine Nitrite NEGATIVE Urine Bilirubin NEGATIVE Urine Urobilinogen 0.2 (NORMAL) Ur Leukocyte Esterase NEGATIVE Ur Microscopic Review NOT INDICATED Urine Culture Comments NOT INDICATED Urine HCG, Qual NEGATIVE Nasal Adenovirus (PCR) Nasal B. parapertussis DNA (PCR) Nasal Coronavir 229E PCR Nasal Coronavir HKU1 PCR Nasal Coronavir NL63 PCR Nasal Coronavir OC43 PCR Nasal Enterovir/Rhinovir PCR Nasal Influenza B PCR Nasal Influenza A PCR Nasal Parainfluen 1 PCR Nasal Parainfluen 2 PCR Nasal Parainfluen 3 PCR Nasal Parainfluen 4 PCR Nasal RSV (PCR) Nasal B.pertussis DNA PCR Nasal C.pneumoniae (PCR) Donta Human Metapneumo PCR Nasal M.pneumoniae (PCR) Nasal SARS-CoV-2 (PCR) 07/29/22 13:51 WBC RBC Hgb Hct MCV MCH MCHC RDW Plt Count MPV Neut # (Auto) Lymph # (Auto) Gooding # (Auto) Eos # (Auto) Baso # (Auto) Absolute Nucleated RBC Nucleated RBC % Sodium Potassium Chloride Carbon Dioxide Anion Gap BUN Creatinine Estimated GFR (MDRD) Glucose Calcium Total Bilirubin AST ALT Alkaline Phosphatase Total Protein Albumin Globulin Albumin/Globulin Ratio Lipase Urine Color Urine Clarity Urine pH Ur Specific [place] Urine Protein Urine Glucose (UA) Urine Ketones Urine Occult Blood Urine Nitrite Urine Bilirubin Urine Urobilinogen Ur Leukocyte Esterase Ur Microscopic Review Urine Culture Comments Urine HCG, Qual Nasal Adenovirus (PCR) NOT DETECTED Nasal B. parapertussis DNA (PCR) NOT DETECTED Nasal Coronavir 229E PCR NOT DETECTED Nasal Coronavir HKU1 PCR NOT DETECTED Nasal Coronavir NL63 PCR NOT DETECTED Nasal Coronavir OC43 PCR NOT DETECTED Nasal Enterovir/Rhinovir PCR NOT DETECTED Nasal Influenza B PCR NOT DETECTED Nasal Influenza A PCR NOT DETECTED Nasal Parainfluen 1 PCR NOT DETECTED Nasal Parainfluen 2 PCR NOT DETECTED Nasal Parainfluen 3 PCR NOT DETECTED Nasal Parainfluen 4 PCR NOT DETECTED Nasal RSV (PCR) NOT DETECTED Nasal B.pertussis DNA PCR NOT DETECTED Nasal C.pneumoniae (PCR) NOT DETECTED Donta Human Metapneumo PCR NOT DETECTED Nasal M.pneumoniae (PCR) NOT DETECTED Nasal SARS-CoV-2 (PCR) NOT DETECTED - Rads (name of study) CT abdomen pelvis Radiology: Final report received, See rad report PD Medical Decision Making - ED course Complexity details: reviewed results, re-evaluated patient, considered differential, d/w patient ED course: Patient with pancreatitis on CT scan. Her pancreatic pseudocyst is larger. Discussed the case with her GI physician, Dr. Bautista. He recommends pain control, IV fluids and admission. States there would be no surgical intervention at this time. States there to be no GI intervention. Discussed the case with the hospitalist, Dr. Ortiz accepts. Patient is well-appearing, nontoxic. Afebrile. No leukocytosis. No signs of infection. No indication for antibiotics at this time. This document was made in part using voice recognition software. While efforts are made to proofread this document, sound alike and grammatical errors may occur. FINDINGS: Image quality: Good Lower chest: Basal scarring/atelectasis. No pulmonary nodule identified that requires follow-up imaging. Possible small hiatal hernia. Solid organs: Subcentimeter lesions are too small to characterize, stable. Gallbladder is unremarkable. Pancreatic head cystic lesion is larger than 06/30/2022 and 07/03/2022, now measures 6.6 x 5.5 cm. Axial image 32. Moderate surrounding peripancreatic fat stranding is persistent. Some areas, particularly around the body of the pancreas appears increased. More focal collections along the left paracolic gutter and mesenteric root also again seen. These are either stable or slightly decreased, for example axial image 46 at the mesenteric root measuring 1.8 cm. No splenomegaly. No adrenal nodules. No hydronephrosis. Vessels and lymph nodes: No abdominal aortic aneurysm. Prominent upper abdominal lymph nodes may be reactive in this clinical setting. There is high grade narrowing of the SMV and portal confluence, also seen previously. Bowel and peritoneum: No small bowel obstruction or pathologic ascites. Fluid collections as described above. Body wall: Small fat-containing buckle hernia. Pelvis: IUD in place. Pelvic organs are not well evaluated on CT, overall physiologic appearing Bones: No acute or suspicious osseous abnormality. IMPRESSION: Presumed walled off necrosis at the pancreatic head is larger than prior. Sterility is indeterminate. Increased, now high-grade narrowing of the distal SMV and portal confluence.. There is also persistent peripancreatic inflammatory changes, possibly increased around the body of the pancreas. Given persistence of inflammation and enlargement, consider GI consultation for further evaluation and management. Other small mesenteric root and left paracolic gutter fluid co llections are present, either stable or slightly decreased. These are also likely related to pancreatitis, although an underlying cystic neoplasm can have a similar appearance. Departure - Departure Disposition: [facility] DC/Xfer Clinical Impression: Acute on chronic pancreatitis, Pancreatic pseudocyst, Intractable abdominal pain Pancreatitis Qualifiers: Chronicity: chronic Pancreatitis type: unspecified pancreatitis type Qualified Code(s): K86.1 - Other chronic pancreatitis Nausea and vomiting Qualifiers: Vomiting type: unspecified Qualified Code(s): R11.2 - Nausea with vomiting, unspecified Condition: Stable
[2022-07-29] MEDS ORDERED: MAG HYDROX/AL HYDROX/SIMETH 30 ML UDC PO STA (11:58)
[2022-07-29] MEDS ORDERED: PANTOPRAZOLE 40 MG VIAL IVP STA (11:58)
[2022-07-29] MEDS ORDERED: SUCRALFATE 1 GM/10 ML UDC PO STA (11:58)
[2022-07-29] MEDS ORDERED: iohexoL-300 100 ML VIAL ONE (13:25)
--- NOTE | 2022-07-29 14:29 | CT Report ---
PROCEDURE: ABDOMEN/PELVIS W INDICATIONS: abd pain CONTRAST: 100ml Omnipaque 300 TECHNIQUE: After the administration of IV contrast, 5 mm thick sections acquired from the diaphragms to the symp hysis. 5 mm thick coronal and sagittal reformats were acquired. For radiation dose reduction, the f ollowing was used: automated exposure control, adjustment of mA and/or kV according to patient size. COMPARISON: 07/03/2022, 06/30/2022 FINDINGS: Image quality: Good Lower chest: Basal scarring/atelectasis. No pulmonary nodule identified that requires follow-up imagi ng. Possible small hiatal hernia. Solid organs: Subcentimeter lesions are too small to characterize, stable. Gallbladder is unremarkabl e. Pancreatic head cystic lesion is larger than 06/30/2022 and 07/03/2022, now measures 6.6 x 5.5 cm. A xial image 32. Moderate surrounding peripancreatic fat stranding is persistent. Some areas, particula rly around the body of the pancreas appears increased. More focal collections along the left paracolic gutter and mesenteric root also again seen. These are either stable or slightly decreased, for example axial image 46 at the mesenteric root measuring 1.8 cm. No splenomegaly. No adrenal nodules. No hydronephrosis. Vessels and lymph nodes: No abdominal aortic aneurysm. Prominent upper abdominal lymph nodes may be r eactive in this clinical setting. There is high grade narrowing of the SMV and portal confluence, als o seen previously. Bowel and peritoneum: No small bowel obstruction or pathologic ascites. Fluid collections as describe d above. Body wall: Small fat-containing buckle hernia. Pelvis: IUD in place. Pelvic organs are not well evaluated on CT, overall physiologic appearing Bones: No acute or suspicious osseous abnormality. IMPRESSION: Presumed walled off necrosis at the pancreatic head is larger than prior. Sterility is indeterminate. Increased, now high-grade narrowing of the distal SMV and portal confluence.. There is also persiste nt peripancreatic inflammatory changes, possibly increased around the body of the pancreas. Given per sistence of inflammation and enlargement, consider GI consultation for further evaluation and managem ent. Other small mesenteric root and left paracolic gutter fluid collections are present, either stab le or slightly decreased. These are also likely related to pancreatitis, although an underlying cysti c neoplasm can have a similar appearance. Reviewed by: Lito Berumen MD on 07/29/2022 2:28 PM PST Approved by: Lito Berumen MD on 07/29/2022 2:28 PM PST Station ID: [id number]
[2022-07-29] MEDS ORDERED: iohexoL-300 100 ML VIAL IVP ONE (15:28)
[2022-07-29 16:49] LABS: B. PARAPERTUSSIS- RESP PCR PAN NOT DETECTED; B. PERTUSSIS- RESP PCR PANEL NOT DETECTED; C. PNEUMONIAE- RESP PCR PANEL NOT DETECTED; CORONAVIRUS 229E-RESP PCR NOT DETECTED; CORONAVIRUS HKU1-RESP PCR NOT DETECTED; CORONAVIRUS NL63-RESP PCR NOT DETECTED; CORONAVIRUS OC43-RESP PCR NOT DETECTED; HUMAN METAPNEUMOVIRUS NOT DETECTED; INFLUENZA A- RESP PCR PANEL NOT DETECTED; INFLUENZA B - RESP PCR PANEL NOT DETECTED; M. PNEUMONIAE- RESP PCR PANEL NOT DETECTED; PARAINFLUENZA VIRUS 1 NOT DETECTED; PARAINFLUENZA VIRUS 2 NOT DETECTED; PARAINFLUENZA VIRUS 3 NOT DETECTED; PARAINFLUENZA VIRUS 4 NOT DETECTED; RHINOVIRUS/ENTEROVIRUS NOT DETECTED; RSV- RESP PCR PANEL NOT DETECTED; SARS-CoV-2 -RESP PCR PANEL NOT DETECTED
[2022-07-29] MEDS ORDERED: SODIUM CHLORIDE FLUSH 0.9% 10 ML SYRINGE IVP PRN (18:32)
--- NOTE | 2022-07-29 18:42 | HISTORY & PHYSICAL EXAMINATION ---
Chief Complaint - Chief Complaint Chief Complaint: N/V, abd pain History of Present Illness - Admitted From Admitted From:: ED - History Obtained From Records Reviewed: Yes History obtained from: ED provider and the patient - History of Present Illness HPI Comment/Other: This is a 36-year-old female with a prior history of alcohol abuse and episodes of pancreatitis. The patient has developed a pancreatic pseudocyst which has intermittently obstructed her stomach and also causes recurrent pain. She has had many admissions here for management of cyclical nausea and vomiting, a nd severe abdominal pain requiring narcotics. She is followed by china and silverware salesperson, Dr. Bautista. The plan is to wait for the pancreatic pseudocyst to solidify so that it can be surically removed. She takes Creon. She no longer drinks alcohol. The patient presented with 1 day of abdominal pain, nausea and vomiting, unable to keep anything down, symptoms that are very similar to her previous presentations. There was no recent alcohol use. In the ED, her labs show a normal Lipase level. She had abdominal imaging done that shows the pseudocyst larger in size than the previous image which was done approximately a month ago. The ED provider reached Dr. Bautista, her china and silverware salesperson, who said that it is not yet ready for surgery and she needs continued management in the hospital for pain control and managing her nausea and vomiting. The ED provider reached out to me on the Hospitalist team and we discussed her management. The patient will be placed in Observation status for pain management, as this may improve in under 2 midnights possibly. History - Past Medical History Cardiovascular: reports: None Respiratory: reports: None Neuro: reports: Headaches Endocrine/Autoimmune: reports: None GI: reports: GERD, Ulcers, Pancreatitis, Cholelithiasis FIBER DESIGNER: reports: None : reports: Kidney stones HEENT: reports: None Psych: reports: Depression, Anxiety, Panic attacks Musculoskeletal: reports: None Derm: reports: None MRSA Hx?: No - Past Surgical History /FIBER DESIGNER: reports: Other HEENT: reports: Tonsil/Adenoidectomy - Family & Social History Family History: Mother: Alive and Well Family History Comment/Other: Her mother has history of thyroid disease. Living arrangement: At home Living Situation: With family Social History Notes: She previously drank alcohol on a consistent basis but now barely has any. She smokes a couple cigarettes a day and has been doing so for the past 16 years. She lives with 2 daughters, aged 7 & 10, and with her mother. 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 - Substance History Use: Uses substance without health or social issues: Tobacco - POLST Patient has POLST: No POLST Status: Full Code Meds/Allgy - Home Medications Home Medications: Ambulatory Orders Medication Instructions Recorded Confirmed LORazepam [Ativan] 1 mg PO Q6H PRN #15 tablet 04/08/22 06/30/22 Lipase/Protease/Amylase [Creon Dr 24,000 unit PO TIDWM 04/08/22 06/30/22 24,000 Unit Capsule] Acetaminophen [Tylenol] 650 mg PO Q6H PRN 04/09/22 06/30/22 Acamprosate Calcium 2 tab PO TID 07/01/22 07/01/22 Ondansetron HCl 1 tab PO QID PRN 07/01/22 07/01/22 polyethylene glycoL 3350 17 g PO DAILY PRN 07/01/22 07/01/22 [Polyethylene Glycol 3350] Cyanocobalamin [Vitamin B-12] 500 mcg PO DAILY tab 07/07/22 oxyCODONE [Roxicodone] 5 mg PO Q4HR PRN #30 tab 07/07/22 - Allergies Allergies/Adverse Reactions: Allergies Allergy/AdvReac Type Severity Reaction Status Date / Time No Known Drug Allergies Allergy Verified 07/29/22 09:24 Review of Systems - Constitutional Constitutional: reports: Poor appetite - Gastrointestinal Gastrointestinal: reports: Abdominal pain, Nausea, Vomiting - All Other Systems All Other Systems: reports: Reviewed and negative Exam - Vital Signs Reviewed Vital Signs: Yes Vital Signs: Vital Signs x48h Pulse Resp BP Pulse Ox 07/29/22 18:11 83 12 123/97 H 96 07/29/22 17:13 81 14 121/95 H 98 07/29/22 16:00 83 19 129/105 H 100 07/29/22 14:15 83 10 L 142/108 H 99 07/29/22 14:14 88 13 148/108 H 98 07/29/22 11:26 89 14 100 - Physical Exam General Appearance: positive: Moderate distress (from pain, N/V) Eyes Bilateral: positive: Normal inspection, No lid inflammation ENT: positive: Dry mucous membranes Neck: positive: Nml inspection, No JVD Cardiovascular: positive: Regular rate & rhythm, No murmur Abdomen: positive: Guarding, Other (Tender in LUQ and RUQ, no rebound, decreased bowel sounds.) Skin: positive: Warm, Dry Extremities: positive: Non-tender, No pedal edema Neurologic/Psychiatric: positive: Oriented x3, Motor nml Conclusion/Plan - Problem List (1) Abdominal pain Conclusion/Plan: Plan: IV narcotics for pain control, will start TOOL AND GAUGE INSPECTOR pump using Dilaudid Bowel rest and slowly advance to clear liquids (2) Nausea and vomiting Conclusion/Plan: Plan: Continue with IV antiemetics as needed Give IV fluids Eventually slowly advance the diet starting with clear liquids Follow BMP daily Qualifiers: Vomiting type: unspecified Qualified Code(s): R11.2 - Nausea with vomiting, unspecified (3) Pancreatic pseudocyst Conclusion/Plan: This is the cause of her severe abdominal pain. She may have mild pancreatitis as well, by imaging but Lipase level is normal. Plan: IV narcotics for pain control, will start TOOL AND GAUGE INSPECTOR pump using Dilaudid Bowel rest and slowly advance to clear liquids When a diet is started, Creon should be resumed - Lab Results Fish Bones: 07/29/22 09:20 07/29/22 09:20 - Diagnostic Imaging Results Diagnostic Imaging Results: positive: Final report reviewed
[2022-07-29] MEDS: SODIUM CHLORIDE 0.9% 1,000 ML IV SCH ×3 (19:00→23:51)
[2022-07-29] MEDS: HYDROmorphone PCA 20MG/100ML IV PRN (19:34)
[2022-07-29] MEDS: PROCHLORPERAZINE 10 MG/2 ML VIAL IVP PRN (19:40)
[2022-07-29] MEDS: SODIUM CHLORIDE FLUSH 0.9% 10 ML SYRINGE IVP SCH (23:51)
[2022-07-30] MEDS: SODIUM CHLORIDE FLUSH 0.9% 10 ML SYRINGE IVP SCH ×2 (09:29→16:48)
[2022-07-30] MEDS: SODIUM CHLORIDE 0.9% 1,000 ML IV SCH ×2 (09:51→19:59)
[2022-07-30] MEDS: ONDANSETRON 4 MG/2 ML VIAL IVP PRN (09:51)
[2022-07-30] MEDS: PROCHLORPERAZINE 10 MG/2 ML VIAL IVP PRN ×2 (14:03→19:59)
--- NOTE | 2022-07-30 14:03 | PHARMACY PROGRESS NOTE ---
- Best Possible Medication History Admit Date and Time: 07/29/22 1832 Processed by: Pharmacy Medication History completed: Yes Patient Interview: Completed Secondary Source(s): Physician records, Pharmacy records, Insurance records, Previous admit records As the person ultimately responsible for medication therapy, providers are able to order a medication from an existing home medication list in [facility] via the "Reconcile Routine" prior to Confirmation of that medication by it support manager. Such practice is discouraged except when the physician, in their clinical judgment, deems that a medical need exists for a medication without regard to previous use.
--- NOTE | 2022-07-30 19:11 | PROVIDER PROGRESS NOTE ---
Subjective - Prog Note Date Prog Note Date: 07/30/22 Prog Note Time: 19:09 - Subjective Pt reports feeling: Improved Subjective: By late this afternoon she was asking for food because she is hungry. Abdominal pain is controlled by Dilaudid.She is on a GLASS TUBE BENDER pump of 20 mg in the bag Objective - Vital Signs/Intake & Output Vital Signs: Vital Signs x48h Temp Pulse Resp BP Pulse Ox 07/30/22 17:00 36.9 C 82 16 126/87 H 99 07/30/22 13:45 16 07/30/22 12:55 36.4 C L 86 15 121/83 H 98 07/30/22 11:23 16 Intake & Output: Intake & Output 07/27/22 07/28/22 07/29/22 07/30/22 23:59 23:59 23:59 23:59 Intake Total 3049 2094 Balance 3049 2094 - Objective General Appearance: positive: No acute distress, Alert ENT: positive: Pharynx nml, No signs of dehydration Neck: positive: No JVD Respiratory: positive: No respiratory distress Cardiovascular: positive: Regular rate & rhythm, No murmur Abdomen: positive: Nml bowel sounds, No distention, Tenderness. negative: Guarding, Rebound Skin: positive: Warm, Dry Extremities: positive: Full ROM, No pedal edema Neurologic/Psychiatric: positive: Oriented x3 - Lab Results Fish Bones: 07/29/22 09:20 07/29/22 09:20 Assessment/Plan - Problem List (1) Abdominal pain Impression: At this point, her abdominal pain is attributed to chronic pancreatitis. She is usually indiscrete with alcohol but with this current admission she is adamant that there is been no slip ups, no accidental drinking of her sisters scarlett benito. She is actually hungry. She is asking for food. Nutrition services and I discussed her enzyme supplements. Those will need to be ordered. As well as advancing her diet to a low-fat diet Plan: IV narcotics for pain control, will start GLASS TUBE BENDER pump using Dilaudid Advance to a low-fat diet Resume her outpatient Creon which is usually 24,000 with each meal. We will see what pharmacy has here If she is tolerating a diet, I will then start tapering off her GLASS TUBE BENDER pump starting tomorrow morning (2) Nausea and vomiting Conclusion/Plan: Plan: Continue with IV antiemetics as needed Give IV fluids Follow BMP daily Qualifiers: Vomiting type: unspecified Qualified Code(s): R11.2 - Nausea with vomiting, unspecified (3) Pancreatic pseudocyst Conclusion/Plan: This is the cause of her severe abdominal pain. She may have mild pancreatitis as well, by imaging but Lipase level is normal. Plan: IV narcotics for pain control,She is on a GLASS TUBE BENDER pump.
[2022-07-30] MEDS ORDERED: polyethylene glycoL 3350 17 GM PACKET PO PRN (19:12)
[2022-07-30] MEDS ORDERED: ONDANSETRON ODT 4 MG TABLET PO PRN (19:24)
[2022-07-31] MEDS: SODIUM CHLORIDE FLUSH 0.9% 10 ML SYRINGE IVP SCH ×4 (01:00→20:26)
[2022-07-31] MEDS: SODIUM CHLORIDE 0.9% 1,000 ML IV SCH ×2 (06:52→16:40)
[2022-07-31] MEDS: ONDANSETRON 4 MG/2 ML VIAL IVP PRN ×2 (08:03→17:24)
[2022-07-31] MEDS: LIPASE/PROTEASE/AMYLASE CAPSULE PO SCH ×3 (08:04→17:24)
[2022-07-31] MEDS: HYDROmorphone PCA 20MG/100ML IV PRN (18:48)
--- NOTE | 2022-07-31 18:49 | PROVIDER PROGRESS NOTE ---
Subjective - Prog Note Date Prog Note Date: 07/31/22 Prog Note Time: 18:47 - Subjective Pt reports feeling: Improved Subjective: Between 9 AM and 2 PM yesterday she asked for 24 doses and received 22 doses of Dilaudid. This is on the EMAIL ADMINISTRATOR. After 2 PM yesterday until this morning there were 44 request. Nevertheless she tells me that she is using less and less pain medicine. Feeling better. She is able to keep food down. Eating the food does not make her pain worse. Is not a lot of food. Current Medications - Current Medications Current Medications: Active Medications Lipase/Protease/Amylase (Lipase/Protease/Amylase Capsule) 5 cap PO TIDWM [facility] Last Admin: 07/31/22 17:24 Dose: 5 cap Hydromorphone HCl (Hydromorphone Theater Technician 20mg/100ml) 20 mg IV PRN PRN; Protocol PRN Reason: Severe Pain Last Admin: 07/29/22 19:34 Dose: 20 mg Sodium Chloride (Normal Saline 0.9%) 1,000 mls @ 100 mls/hr IV .Q10H [facility] Last Admin: 07/31/22 16:40 Dose: 100 mls/hr Ondansetron HCl (Ondansetron 4 Mg/2 Ml Vial) 4 mg IVP Q6HR PRN PRN Reason: Nausea / Vomiting Last Admin: 07/31/22 17:24 Dose: 4 mg Ondansetron HCl (Ondansetron Odt 4 Mg Tablet) 4 mg PO QID PRN PRN Reason: Nausea / Vomiting Polyethylene Glycol (Polyethylene Glycol 3350 17 Gm Packet) 17 gm PO DAILY PRN PRN Reason: Constipation Prochlorperazine Edisylate (Prochlorperazine 10 Mg/2 Ml Vial) 10 mg IVP Q6HR PRN PRN Reason: Nausea / Vomiting Last Admin: 07/30/22 19:59 Dose: 10 mg Sodium Chloride (Sodium Chloride Flush 0.9% 10 Ml Syringe) 10 ml IVP PRN PRN PRN Reason: NEEDED PER PROVIDER ORDERS Last Admin: 07/30/22 14:04 Dose: 10 ml Sodium Chloride (Sodium Chloride Flush 0.9% 10 Ml Syringe) 10 ml IVP 0100,0900,1700 [facility] Last Admin: 07/31/22 16:41 Dose: Not Given Acetaminophen [Tylenol] 650 mg PO Q6H PRN 04/09/22 Acamprosate Calcium 2 tab PO TID 07/01/22 Ondansetron HCl 1 tab PO QID PRN 07/01/22 polyethylene glycoL 3350 [Polyethylene Glycol 3350] 17 g PO DAILY PRN 07/01/22 Lipase/Protease/Amylase [Frank Dr 24,000 Unit Capsule] 24,000 unit PO TIDWM 07/30/22 Objective - Vital Signs/Intake & Output Reviewed Vital Signs: Yes Vital Signs: Vital Signs x48h Temp Pulse Resp BP Pulse Ox 07/31/22 17:00 14 07/31/22 16:31 36.6 C 95 14 133/93 H 97 07/31/22 14:52 14 07/31/22 11:30 36.3 C L 79 14 120/87 H 98 Intake & Output: Intake & Output 07/28/22 07/29/22 07/30/22 07/31/22 23:59 23:59 23:59 23:59 Intake Total 3050 2875 3470 Balance 3050 2875 3470 - Objective General Appearance: positive: No acute distress, Other (Dad asleep when I walked in her room. Called her name without any response, then I touched her shoulder and she woke up. She was a little sleepy, startled but appropriate.) Eyes Bilateral: positive: PERRL, EOMI ENT: positive: Pharynx nml, No signs of dehydration Neck: positive: No JVD. negative: Stiff neck Respiratory: positive: No respiratory distress. negative: Wheezes, Rales, Rhonchi Cardiovascular: positive: Regular rate & rhythm Abdomen: positive: Nml bowel sounds, Tenderness (Epigastrium and left upper quadrant.). negative: Guarding, Rebound Skin: positive: Warm, Dry Extremities: positive: Full ROM, No pedal edema Neurologic/Psychiatric: positive: Oriented x3, CN's nml (2-12), Motor nml - Lab Results Fish Bones: 07/29/22 09:20 07/29/22 09:20 Assessment/Plan - Problem List (1) Abdominal pain Impression: Due to chronic pancreatitis and the size of a pancreatic pseudocyst. I am not suspecting acute pancreatitis at this time. Treatment is supportive. Dilaudid EMAIL ADMINISTRATOR, antiemetics with Zofran every 4 hours as needed, and IV fluids. Plan: I am worried about her use of the EMAIL ADMINISTRATOR. Her understanding is that she is not using it very much but the calculations state otherwise. I will plan on 1 more night of EMAIL ADMINISTRATOR, regular food, but then I will start to change her over to oral Dilaudid tomorrow. (2) Nausea and vomiting Conclusion/Plan: Present on admission by complaint. She has had none since being admitted. We are continuing antiemetics, and IV fluids. Qualifiers: Vomiting type: unspecified Qualified Code(s): R11.2 - Nausea with vomiting, unspecified (3) Pancreatic pseudocyst Conclusion/Plan: Slightly larger on this admission than previous admission. However her coreroom foundry laborer that is following her for this issue states that it is not "walled off" enough for her to have drainage yet.
[2022-07-31] MEDS: PROCHLORPERAZINE 10 MG/2 ML VIAL IVP PRN (20:26)
[2022-08-01] MEDS: SODIUM CHLORIDE 0.9% 1,000 ML IV SCH ×2 (03:30→13:37)
[2022-08-01] MEDS: SODIUM CHLORIDE FLUSH 0.9% 10 ML SYRINGE IVP SCH ×2 (07:50→16:31)
[2022-08-01] MEDS: LIPASE/PROTEASE/AMYLASE CAPSULE PO SCH ×3 (07:50→16:31)
--- NOTE | 2022-08-01 15:01 | PROVIDER PROGRESS NOTE ---
Subjective - Prog Note Date Prog Note Date: 08/01/22 Prog Note Time: 15:00 - Subjective Subjective: She wants to go to the shower. She is thinking that her pain should be controlled enough. As such I stopped her AUTOMOBILE RENTAL CLERK pump and switch her over to oral Dilaudid. She is eating small amounts of food. There is no fever, no chills, no cough no chest pain. Current Medications - Current Medications Current Medications: Active Medications Lipase/Protease/Amylase (Lipase/Protease/Amylase Capsule) 5 cap PO TIDWM [facility] Last Admin: 08/01/22 11:59 Dose: 5 cap Hydromorphone HCl (Hydromorphone Field Enumerator 20mg/100ml) 20 mg IV PRN PRN; Protocol PRN Reason: Severe Pain Last Admin: 07/31/22 18:48 Dose: 20 mg Sodium Chloride (Normal Saline 0.9%) 1,000 mls @ 100 mls/hr IV .Q10H [facility] Last Admin: 08/01/22 13:37 Dose: 100 mls/hr Ondansetron HCl (Ondansetron 4 Mg/2 Ml Vial) 4 mg IVP Q6HR PRN PRN Reason: Nausea / Vomiting Last Admin: 07/31/22 17:24 Dose: 4 mg Ondansetron HCl (Ondansetron Odt 4 Mg Tablet) 4 mg PO QID PRN PRN Reason: Nausea / Vomiting Last Admin: 08/01/22 02:39 Dose: 4 mg Polyethylene Glycol (Polyethylene Glycol 3350 17 Gm Packet) 17 gm PO DAILY PRN PRN Reason: Constipation Prochlorperazine Edisylate (Prochlorperazine 10 Mg/2 Ml Vial) 10 mg IVP Q6HR PRN PRN Reason: Nausea / Vomiting Last Admin: 07/31/22 20:26 Dose: 10 mg Sodium Chloride (Sodium Chloride Flush 0.9% 10 Ml Syringe) 10 ml IVP PRN PRN PRN Reason: NEEDED PER PROVIDER ORDERS Last Admin: 07/30/22 14:04 Dose: 10 ml Sodium Chloride (Sodium Chloride Flush 0.9% 10 Ml Syringe) 10 ml IVP 0100,0900,1700 [facility] Last Admin: 08/01/22 07:50 Dose: Not Given Acetaminophen [Tylenol] 650 mg PO Q6H PRN 04/09/22 Acamprosate Calcium 2 tab PO TID 07/01/22 Ondansetron HCl 1 tab PO QID PRN 07/01/22 polyethylene glycoL 3350 [Polyethylene Glycol 3350] 17 g PO DAILY PRN 07/01/22 Lipase/Protease/Amylase [Frank Ledbetter 24,000 Unit Capsule] 24,000 unit PO TIDWM 07/17 10/06 Objective - Vital Signs/Intake & Output Reviewed Vital Signs: Yes Vital Signs: Vital Signs x48h Temp Pulse Resp BP Pulse Ox 08/01/22 13:00 16 08/01/22 12:08 36.8 C 89 16 124/79 98 08/01/22 09:00 14 08/01/22 07:35 36.8 C 95 14 130/88 H 97 Intake & Output: Intake & Output 07/29/22 07/30/22 07/31/22 08/01/22 23:59 23:59 23:59 23:59 Intake Total 3050 2875 3950 2360 Balance 3050 2875 3950 2360 - Objective General Appearance: positive: Alert Eyes Bilateral: positive: PERRL, EOMI ENT: positive: No signs of dehydration Neck: positive: No JVD Respiratory: positive: No respiratory distress. negative: Wheezes, Rales, Rhonchi Cardiovascular: positive: Regular rate & rhythm. negative: Tachycardia Abdomen: positive: No organomegaly, Nml bowel sounds, No distention, Tenderness Skin: positive: Warm, Dry Extremities: positive: Full ROM, No pedal edema Neurologic/Psychiatric: positive: Oriented x3, CN's nml (2-12), Motor nml - Lab Results Fish Bones: 07/29/22 09:20 07/29/22 09:20 Assessment/Plan - Problem List (1) Abdominal pain Impression: Due to chronic pancreatitis and the size of a pancreatic pseudocyst. I am not suspecting acute pancreatitis at this time. Treatment is supportive. I have stopped her Dilaudid AUTOMOBILE RENTAL CLERK and switch her to oral Dilaudid 2 mg every 6 hours as needed. Continue Zofran 4 mg every 4 hours as needed for pain. IV fluids for hydration. Plan: Continue pain and emesis support until the patient can go home (2) Nausea and vomiting Conclusion/Plan: Present on admission by complaint. She has had none since being admitted. We are continuing antiemetics, and IV fluids. Qualifiers: Vomiting type: unspecified Qualified Code(s): R11.2 - Nausea with vomiting, unspecified (3) Pancreatic pseudocyst Conclusion/Plan: Slightly larger on this admission than previous admission. However her shellfish manager that is following her for this issue states that it is not "walled off" enough for her to have drainage yet.
[2022-08-01] MEDS: HYDROmorphone 2 MG TABLET PO PRN (16:30)
[2022-08-01] MEDS: ONDANSETRON 4 MG/2 ML VIAL IVP PRN (16:53)
[2022-08-01] MEDS: PROCHLORPERAZINE 10 MG/2 ML VIAL IVP PRN (20:51)
[2022-08-02] MEDS: HYDROmorphone 2 MG TABLET PO PRN ×2 (00:44→08:03)
[2022-08-02] MEDS: SODIUM CHLORIDE 0.9% 1,000 ML IV SCH ×2 (00:49→08:06)
[2022-08-02] MEDS: SODIUM CHLORIDE FLUSH 0.9% 10 ML SYRINGE IVP SCH ×2 (00:50→08:06)
[2022-08-02] MEDS: LIPASE/PROTEASE/AMYLASE CAPSULE PO SCH ×2 (08:03→12:13)
[2022-08-02 08:46] LABS: BASOPHILS % (AUTO) 0.7 %; EOSINOPHILS # (AUTO) 0.2 10^3/uL (0.0-0.7); EOSINOPHILS % (AUTO) 4.3 %; HCT - HEMATOCRIT 37.9 % (37.0-47.0); HGB - HEMOGLOBIN 12.4 g/dL (12.0-16.0); LYMPHOCYTES % (AUTO) 23.4 %; MEAN CORPUSCULAR HEMOGLOBIN 32.4 pg (27.0-31.0); MEAN CORPUSCULAR HGB CONC 32.7 g/dL (32.0-36.0); MEAN PLATELET VOLUME 10.8 fL (7.9-10.8); MONOCYTES # (AUTO) 0.3 10^3/uL (0.0-1.0); NEUTROPHILS # (AUTO) 2.8 10^3/uL (1.5-6.6); NEUTROPHILS % (AUTO) 64.6 %; PLT - PLATELET COUNT 152 10^3/uL (130-450); RED BLOOD COUNT 3.83 10^6/uL (4.20-5.40); RED CELL DISTRIBUTION WIDTH 14.5 % (12.0-15.0); WHITE BLOOD COUNT 4.4 x10^3/uL (4.8-10.8)
[2022-08-02 09:01] LABS: ALBUMIN 3.1 g/dL (3.2-5.5); BILIRUBIN,TOTAL 0.4 mg/dL (0.2-1.0); CREATININE 0.7 mg/dL (0.4-1.0); POTASSIUM 3.4 mmol/L (3.5-5.0); TOTAL PROTEIN 6.1 g/dL (6.7-8.2)
--- NOTE | 2022-08-02 11:38 | Discharge Plan ---
Discharge Plan Problem Reviewed?: Yes Disposition: Home, Self Care Condition: Stable Prescriptions: HYDROmorphone [Dilaudid] 2 mg PO Q6HR PRN #10 tab PRN Reason: Severe Pain Pnv No.95/Ferrous Fum/Folic AC [ Caplet] 1 each PO DAILY #30 tablet Diet: Regular (small low fat meals four times a day if possible) Activity Restrictions: Activity as Tolerated Shower Restrictions: No Driving Restrictions: No (avoid if you have taken pain meds that day) Health Concerns: You have a history of chronic pancreatitis due to alcohol abuse. Unfortunately you developed a complication of a cyst which is filled with fluid from inflamed pancreas that dates back to August 2021. The cyst sometimes grows, sometimes shrinks, but it causes a lot of pain and sometimes obstructs the stomach's ability to empty. You have had many admissions to the hospital because of this pain. Around midnight of the day you were admitted, the pain started again. You called an ambulance to bring you to the hospital. You had nausea, vomiting, diarrhea. lab work did not show acute pancreatitis. So there we think your pain is just chronic pancreatitis at this time. We did the usual things of IV fluids, intravenous medications. At 1 point, in an 8-hour period, you requested 44 pain doses from the patient control analgesia pump and received 42 injections. We are worried that you may develop an addiction to opioids because of the amount of pain medicines you need. You have been transitioned to a regular low fat diet. You do not have much appetite but you are able to eat enough food to sustain you. Pain is diminished. It is still there but controllable. Plan of Treatment: Up until now, we have been waiting for the pseudocyst that is over the head of your pancreas to "harden up" to be able to be drained. You are being followed by a lithographic press operator named Edson Hayden MD. I did try and call him today but he is in the endoscopy suite at [facility] and I left a message for him to return my phone call. You have had a pancreatic cyst since August 2021. I am going to suggest to him that it might be time to go ahead and drain it since you have had it for so long and it really does cause you problems with intermittent gastric outlet obstruction. I was able to speak to his colleague research home economist for him, Dr. Lamas and he will pass along the message to Dr. Bautista. In the meantime, please see your primary care provider in follow-up. Please, please, please see the pain specialist. You will reach the point where you will no longer be able to get pain medications unless you see that pain specialist. Do not wait till the last moment will you will be without your pain medicines for an extended length of time. I would also recommend you see your primary care provider in follow-up just for routine follow-up care. Dr. Lamas also tells me Dr. Bautista will be research home economist next week at [facility] so if your pain recurrs and you need to be seen, you might want to go the ER at [facility] and Dr. Bautista may be able to consult on your case with the ER doctors. Stay on a low-fat diet. Small frequent meals. Absolutely no alcohol. Make sure you take your Creon, pancreatic enzymes, with each meal Care Goals: To be pain-free, have a more normal diet, and resume normal activities Assessment: Patient is alert, oriented, ambulating in the room without assistance. Will follow through with recommendations No Smoking: If you smoke, Please STOP! Call for help. Follow-up with: Sylwia Leblanc ARNP [Primary Care Provider] - EDSON BAUTISTA MD [Physician No Access] -
[2022-08-02 11:42] VITALS: BP 122/82
--- NOTE | 2022-08-02 11:51 | DISCHARGE SUMMARY ---
"Discharge Summary Admit Date: 07/29/22 Discharge Date: 08/02/22 Discharging Provider: Mamie Reese MD Primary Care Provider: Sylwia Leblanc MD Code Status: Attempt Resuscitation Condition at Discharge: Stable Discharge Disposition: 01 Home, Self Care - DIAGNOSES Discharge Diagnoses with Status of Each Condition: 1. Acute abdominal pain 2. Nausea vomiting 3. Chronic pancreatitis 4. Pancreatic pseudocyst 5. History of alcohol abuse - HPI History of Present Illness: This is a 36-year-old female with a prior history of alcohol abuse and episodes of pancreatitis. The patient has developed a pancreatic pseudocyst which has intermittently obstructed her stomach and also causes recurrent pain. She has had many admissions here for management of cyclical nausea and vomiting, a nd severe abdominal pain requiring narcotics. She is followed by mexican food maker, Dr. Bautista. The plan is to wait for the pancreatic pseudocyst to solidify so that it can be surically removed. She takes Creon. She no longer drinks alcohol. The patient presented with 1 day of abdominal pain, nausea and vomiting, unable to keep anything down, symptoms that are very similar to her previous presentations. There was no recent alcohol use. In the ED, her labs show a normal Lipase level. She had abdominal imaging done that shows the pseudocyst larger in size than the previous image which was done approximately a month ago. The ED provider reached Dr. Bautista, her mexican food maker, who said that it is not yet ready for surgery and she needs continued management in the hospital for pain control and managing her nausea and vomiting. The ED provider reached out to me on the Hospitalist team and we discussed her management. The patient will be placed in Observation status for pain management, as this may improve in under 2 midnights possibly. - Past Medical History Cardiovascular: reports: None Respiratory: reports: None Neuro: reports: Headaches Endocrine/Autoimmune: reports: None GI: reports: GERD, Ulcers, Pancreatitis, Cholelithiasis MACHINE PIE MAKER: reports: None : reports: Kidney stones HEENT: reports: None Psych: reports: Depression, Anxiety, Panic attacks Musculoskeletal: reports: None Derm: reports: None MRSA Hx?: No - Past Surgical History /MACHINE PIE MAKER: reports: Other HEENT: reports: Tonsil/Adenoidectomy - CONSULTS | PROCEDURES Procedures: Abdomen pelvis CT with a pancreatic head cystic lesion that is larger than June 30, 2022 in July 03, 2022. It is 6.6 x 5.5 cm. Moderate surrounding peripancreatic fat stranding is persistent. Some areas, particular around the body of the pancreas appear increased. More focal collections in the left paracolic gutter and mesenteric root are again seen. These are stable or slightly decreased. Radiologist stated that there is now high-grade narrowing of the distal SMV and portal confluence. Consider GI consultation for further evaluation and management. - HOSPITAL COURSE Hospital Course: The patient was again admitted and given IV Dilaudid, IV antiemetics, IV fluids. She was made n.p.o. and then transition to clear liquids and then diet advance slowly. This continues to be an unfortunate recurrent problem for this patient with regards to acute on chronic abdominal pain in view of her pancreatitis. I did speak to her mexican food maker office. Unfortunately he was not in the of fice but I was able to speak to the mexican food maker on-call. He has left a message for Dr. Bautista where I am emphasizing the patient really needs to have some resolution. It has been close to a year that she has had a pancreatic cyst. At discharge the patient is tearful. Saying that she feels like her pain is controlled and that she can keep down enough food. Temperature is 36.5. Heart rate 78. Blood pressure 122/82. Respirations 17. 95% on room air. She is 78 kg. Well-groomed well-nourished. Neck is supple. Lungs have diminished breath sounds at the bases. Regular rate and rhythm. Abdomen that is slightly distended, hypoactive bowel sounds, tender and protuberant over the epigastrium and left upper quadrant. She also has pain along the left lower quadrant. No rebound or guarding. Greater than 30 minutes was spent coordinating discharge and speaking to her gastroenterology office. It took me over an hour and a half to even be able to get through to the office leave a message. She is again encouraged to take the multivitamins. Again instructed not to drink any alcohol whatsoever. To follow-up with the sole painter at . And hopefully Dr. Bautista's office will give her a call - ALLERGIES Allergies/Adverse Reactions: Allergies Allergy/AdvReac Type Severity Reaction Status Date / Time No Known Drug Allergies Allergy Verified 07/29/22 09:24 - MEDICATIONS Home Medications: Ambulatory Orders Medication Instructions Recorded Confirmed Acetaminophen [Tylenol] 650 mg PO Q6H PRN 04/09/22 07/30/22 Acamprosate Calcium 2 tab PO TID 07/01/22 07/30/22 Ondansetron HCl 1 tab PO QID PRN 07/01/22 07/30/22 polyethylene glycoL 3350 17 g PO DAILY PRN 07/01/22 07/30/22 [Polyethylene Glycol 3350] Lipase/Protease/Amylase [Creon Dr 24,000 unit PO TIDWM 07/30/22 07/30/22 24,000 Unit Capsule] HYDROmorphone [Dilaudid] 2 mg PO Q6HR PRN #10 tab 08/02/22 Pnv No.95/Ferrous Fum/Folic AC 1 each PO DAILY #30 tablet 08/02/22 [ Caplet] - LABS Result Diagrams: 08/02/22 08:40 08/02/22 08:40"
== END 2022-08-02 12:05 | disposition home or self-care (01) ==
LOC: EDUNIT# → ED 09:14 → MS3 18:32
PROVIDERS: ADMIT Internal Medicine; ATTEND Specialist
DX: K86.3 Pseudocyst of pancreas (principal); K86.1 Other chronic pancreatitis; K52.9 Noninfective gastroenteritis and colitis, unspecified; F17.200 Nicotine dependence, unspecified, uncomplicated; F32.A Depression, unspecified; F41.9 Anxiety disorder, unspecified; R00.0 Tachycardia, unspecified; R10.32 Left lower quadrant pain; Z20.822 Contact with and (suspected) exposure to COVID-19; Z32.02 Encounter for pregnancy test, result negative; Z79.899 Other long term (current) drug therapy; Z87.898 Personal history of other specified conditions
CPT/HCPCS: 36415; 74177; 80053; 81003; 81025; 83690; 85025; 87633; 93005; 96374; 96375; 96376; 99284; 99285; 99406; A9270; G0378; J1170; Q0162; Q9967; 81001; 87086

== ENCOUNTER 2022-08-08 09:07 | Outpatient (CLI) | payer MEDICAID | END 2022-08-08 23:59 | disposition critical access hospital (66) | LOC: EMS 09:07 | DX: R10.11 Right upper quadrant pain (principal); R10.12 Left upper quadrant pain | CPT/HCPCS: A0425; A0429; A0999 ==

== ENCOUNTER 2022-08-08 09:30 | Emergency (ER) | payer MEDICAID ==
[2022-08-08] MEDS ORDERED: SODIUM CHLORIDE 0.9% 1,000 ML IV STA (09:46)
[2022-08-08] MEDS ORDERED: KETOROLAC 15 MG/ML VIAL IVP STA (09:46)
[2022-08-08] MEDS ORDERED: HYDROmorphone 1 MG/ML CARPUJECT IVP STA ×3 (09:46→12:53)
--- NOTE | 2022-08-08 09:46 | ED Physician Documentation ---
PD HPI ABD PAIN - Stated complaint Stated Complaint: ABD PX - Chief complaint Chief Complaint: Abd Pain - History obtained from History obtained from: Patient, EMS - History of Present Illness Timing - onset: Today, Last night Timing - details: Abrupt onset (has had chronic pain due to pancreatic cyst and pancreatitis. Much worse increase last night similar to other exacerbations. Denies alcohol (had drink of soda from fridge that tasted funny, per patient; unsure of what it was).), Still present Quality: Cramping, Aching, Pain Location: RUQ, Epigastric Radiation: Upper back. No: Chest, Lower back Improved by: No: Vomiting Worsened by: Eating, Palpation. No: Breathing Associated symptoms: Nausea, Vomiting. No: Diarrhea Similar symptoms before: Diagnosis (chronic pancreatitis with pseudocyst.) Recently seen: Emergency Dept, Admitted (Jul 29 for pain and nausea from pancreas and pseudocyst. Has had this recurrently. Admission notes state consultation with GI Dr. Bautista state that GI said the patient's cyst is not ready for surgery as yet.) Review of Systems Constitutional: reports: Myalgias. denies: Fever, Chills Nose: denies: Rhinorrhea / runny nose, Congestion Throat: denies: Sore throat Respiratory: denies: Cough GI: reports: Abdominal Pain, Nausea, Vomiting, Diarrhea. denies: Hematemesis Skin: denies: Rash Neurologic: reports: Generalized weakness. denies: Focal weakness, Numbness PD PAST MEDICAL HISTORY - Past Medical History Cardiovascular: None Respiratory: None Neuro: Headaches Endocrine/Autoimmune: None GI: GERD, Ulcers, Pancreatitis, Cholelithiasis PLYWOOD SCARFER TENDER: None : Kidney stones HEENT: None Psych: Depression, Anxiety, Panic attacks Musculoskeletal: None Derm: None - Past Surgical History Past Surgical History: Yes /PLYWOOD SCARFER TENDER: Other HEENT: Tonsil/Adenoidectomy - Present Medications Home Medications: Ambulatory Orders Medication Instructions Recorded Confirmed Acetaminophen [Tylenol] 650 mg PO Q6H PRN 04/09/22 07/30/22 Acamprosate Calcium 2 tab PO TID 07/01/22 07/30/22 Ondansetron HCl 1 tab PO QID PRN 07/01/22 07/30/22 polyethylene glycoL 3350 17 g PO DAILY PRN 07/01/22 07/30/22 [Polyethylene Glycol 3350] Lipase/Protease/Amylase [Frank Ledbetter 24,000 unit PO TIDWM 07/30/22 08/08/22 24,000 Unit Capsule] HYDROmorphone [Dilaudid] 2 mg PO Q6HR PRN #10 tab 08/02/22 08/08/22 Pnv No.95/Ferrous Fum/Folic AC 1 each PO DAILY #30 tablet 08/02/22 [ Caplet] Famotidine [Pepcid] 20 mg PO DAILY #20 tablet 08/08/22 HYDROmorphone [Dilaudid] 2 mg PO Q8H PRN #20 tablet 08/08/22 Promethazine [Phenergan] 25 mg PO Q6H PRN #20 tab 08/08/22 - Allergies Allergies/Adverse Reactions: Allergies Allergy/AdvReac Type Severity Reaction Status Date / Time No Known Drug Allergies Allergy Verified 07/29/22 09:24 - Social History Does the pt smoke?: Yes Smoking Status: Current every day smoker Does the pt drink ETOH?: Yes ETOH Use: Other (she claims to be sober the past several months.) Does the pt have substance abuse?: Yes - Immunizations Immunizations are current?: Yes - POLST Patient has POLST: No POLST Status: Full Code PD ED PE NORMAL - Vitals Vital signs reviewed: Yes - General General: Alert and oriented X 3, Well developed/nourished, Other (appears in pain. grimacing. alert and conversant. ) - HEENT HEENT: Pharynx benign - Neck Neck: Supple, no meningeal sign, No adenopathy - Cardiac Cardiac: RRR, No murmur - Respiratory Respiratory: Clear bilaterally - Abdomen Abdomen: Normal bowel sounds, Soft, Non distended, No organomegaly, Other (tender epigastric area with guarding and some percussion tenderness. ) - Back Back: No CVA TTP - Derm Derm: Normal color, Warm and dry - Extremities Extremities: Normal ROM s pain, No edema, No calf tenderness / cord - Neuro Neuro: Alert and oriented X 3, No motor deficit, Normal speech Results - Vitals Vitals: Vital Signs - 24 hr 08/08/22 08/08/22 08/08/22 09:38 10:06 12:15 Temperature 36.8 C Heart Rate 98 97 83 Respiratory 18 18 16 Rate Blood Pressure 133/98 H 125/94 H 108/77 O2 Saturation 99 97 98 08/08/22 14:48 Temperature 36.7 C Heart Rate 81 Respiratory 18 Rate Blood Pressure 120/85 H O2 Saturation 99 Oxygen O2 Source Room air - Labs Labs: Laboratory Tests 08/08/22 08/08/22 08/08/22 09:40 09:40 12:41 WBC 6.5 RBC 4.24 Hgb 14.1 Hct 41.7 MCV 98.3 MCH 33.3 H MCHC 33.8 RDW 14.6 Plt Count 304 MPV 10.4 Neut # (Auto) 4.3 Lymph # (Auto) 1.7 [place] # (Auto) 0.4 Eos # (Auto) 0.1 Baso # (Auto) 0.0 Absolute Nucleated RBC 0.00 Nucleated RBC % 0.0 Sodium 133 L Potassium 3.7 Chloride 100 L Carbon Dioxide 22 Anion Gap 11.0 BUN 14 Creatinine 0.8 Estimated GFR (MDRD) 82 L Glucose 104 H Calcium 9.1 Magnesium 2.2 Total Bilirubin 0.7 AST 21 ALT 20 Alkaline Phosphatase 83 Total Protein 7.5 Albumin 4.1 Globulin 3.4 Albumin/Globulin Ratio 1.2 Lipase 29 Urine Color YELLOW Urine Clarity CLEAR Urine pH 6.5 Ur Specific [place] <=1.005 Urine Protein NEGATIVE Urine Glucose (UA) NEGATIVE Urine Ketones NEGATIVE Urine Occult Blood NEGATIVE Urine Nitrite NEGATIVE Urine Bilirubin NEGATIVE Urine Urobilinogen 0.2 (NORMAL) Ur Leukocyte Esterase NEGATIVE Ur Microscopic Review NOT INDICATED Urine Culture Comments NOT INDICATED Ethyl Alcohol 33.1 - Rads (name of study) abd/pelvic CT Radiology: Prelim report reviewed (pancreatic cyst is same size as recent 9a week ago). No interval change. ), See rad report PD Medical Decision Making - ED course Complexity details: reviewed old records (The hospitalist notes from the recent admission July 29 through states they had consulted gastroenterology and the pseudocyst was not ready for surgical resection as yet and needed to coalesce. To treat symptomatically.), considered differential, d/w patient Reviewed Lab Results: The patient had basic blood tests of blood count and electrolytes. A alcohol level was drawn to verify no use. She states she has not had any alcohol use. She has had this pain recurrently from a pseudocyst and vomiting possibly related to outlet obstruction and pain. She had been taking orally adequately and had oral pain medicine prescribed from the last admission. She denies running out of the pain pills. Her pain increased with repetitive vomiting overnight similar to prior episodes. The patient has had improvement in her nausea and pain with medications. She still has moderate pain in is given a repeat dose of IV hydromorphone to help with that. She had been given a dose along with some Inapsine to help with nausea. At this point she is appearing more comfortable. She is tolerating sips of wate r and crackers. It does seem likely that she is improved enough to be able to do at home with continued pain medicine and antiemetics. She states she does have nausea medicines at home. She had been prescribed oral Dilaudid from her recent admission and states she has about 4 tablets left. That likely will likely will be insufficient so I can prescribe a few more for her. She has ondansetron at home for nausea. Supplementing or instead using a different antiemetic such as promethazine may be useful as well. Social Determinants of Health: The patient states she does not drink and has been sober for several months. However her alcohol level is showing 33 at this point so obviously she had some. She will be encouraged to avoid alcohol entirely. It sounds like her mother is alcoholic and so that is not a really good environment for her but the best there is at the moment. ED course: The patient has chronic pancreatitis and pseudocyst. Apparently the pseudocyst location and size has at times caused outlet obstruction for stomach with episodes of vomiting. The patient was admitted just 10 days ago for this and had a CT scan at the time that showed slight interval increase in size of the pseudocyst. However the reviewing the record from the last admission shows the hospitalist had talked with her senior quality engineer who is Dr. Bautista and apparently the patient was not ready to have surgery as yet as they are waiting for the pseudocyst to coalesce better. Apparently this is been being watched for close to a year. Unclear at what point the patient may be a surgical candidate. The patient had an increase in her symptoms similar to prior episodes. She claims that she has not had any alcohol but did have some soda that was in the fridge last night that tasted funny. She does have an alcohol level of 33 here so presuming this was last evening than her alpha level would have been reasonably higher at that point. This likely contributes to of the flareup of her pancreatic symptoms. She has had improvement with fluids and IV antiemetics and pain medicine. She is taking sips of water at this point and feeling reasonably comfortable without worsened pain on swallowing. She is willing to try discharge. She states her mother was feeling sick at home and so the patient intended to either take the bus or get a different ride. At this point the patient is deemed stable for discharge with decreased pain and no vomiting and able to take oral liquids. Departure - Departure Disposition: 01 Home, Self Care Clinical Impression: Acute upper abdominal pain, Chronic pancreatitis, Pancreatic pseudocyst, Alcohol use disorder Condition: Stable Record reviewed to determine appropriate education?: Yes Instructions: ED Pancreatitis Follow-Up: Sylwia Leblanc ARNP [Primary Care Provider] - ROSEMARY BAUTISTA MD [Physician No Access] - Prescriptions: HYDROmorphone [Dilaudid] 2 mg PO Q8H PRN #20 tablet PRN Reason: Pain Famotidine [Pepcid] 20 mg PO DAILY #20 tablet Promethazine [Phenergan] 25 mg PO Q6H PRN #20 tab PRN Reason: Nausea / Vomiting Comments: Frequent fluids and bland food. I would stay with just liquids and clear liquids today and progress to mild diet tomorrow. Continue with your pancreas enzymes. Avoid all alcohol. There was a small amount of alcohol on your blood test today. Presume there was some in the soda that you had out of the fridge last night. Use ondansetron every 6 hours if needed for nausea or instead you could try promethazine and see if that works a little better. Tylenol every 4-6 hours if needed for pains or the oral Dilaudid 3 times daily if needed for pain. I wrote a prescription for some more for you. You likely have some element of stomach irritation/gastritis. I would suggest using an acid reducing medicine such as famotidine daily for the next few weeks as well. Follow-up with your primary care and your senior quality engineer. I sent your prescriptions to your preferred pharmacy. I am prescribing a short course of narcotic pain medication for you. These are potentially dangerous and addictive medications that should be used carefully. These medications may constipate you. Take an [id number] stool softener such as docusate twice daily with plenty of water while taking these medications. If you go 24 hours without a bowel movement, take [id number] MiraLAX, per package instructions. Do not drink or drive while taking these medications. If you received narcotic or sedating medications while in the emergency department do not drive for 24 hours. Store this medication in a safe, secure place and out of reach of children. It is a violation of federal law to give or sell this medication to another person or to use in a manner other than prescribed. The ED will not refill narcotic prescriptions, including prescriptions lost or stolen. You can dispose of unwanted medications at the [facility]'s office or at several pharmacies such as [facility]. Discharge Date/Time: 08/08/22 15:08
[2022-08-08] MEDS ORDERED: DROPERIDOL 5 MG/2 ML VIAL IVP STA (09:47)
[2022-08-08 09:53] LABS: BASOPHILS % (AUTO) 0.6 %; EOSINOPHILS # (AUTO) 0.1 10^3/uL (0.0-0.7); EOSINOPHILS % (AUTO) 0.9 %; HCT - HEMATOCRIT 41.7 % (37.0-47.0); HGB - HEMOGLOBIN 14.1 g/dL (12.0-16.0); LYMPHOCYTES # (AUTO) 1.7 10^3/uL (1.5-3.5); LYMPHOCYTES % (AUTO) 25.9 %; MEAN CORPUSCULAR HEMOGLOBIN 33.3 pg (27.0-31.0); MEAN CORPUSCULAR HGB CONC 33.8 g/dL (32.0-36.0); MEAN CORPUSCULAR VOLUME 98.3 fL (81.0-99.0); MEAN PLATELET VOLUME 10.4 fL (7.9-10.8); MONOCYTES # (AUTO) 0.4 10^3/uL (0.0-1.0); MONOCYTES % (AUTO) 5.7 %; NEUTROPHILS # (AUTO) 4.3 10^3/uL (1.5-6.6); NEUTROPHILS % (AUTO) 66.7 %; PLT - PLATELET COUNT 304 10^3/uL (130-450); RED BLOOD COUNT 4.24 10^6/uL (4.20-5.40); RED CELL DISTRIBUTION WIDTH 14.6 % (12.0-15.0); WHITE BLOOD COUNT 6.5 x10^3/uL (4.8-10.8)
[2022-08-08 10:02] LABS: ALBUMIN 4.1 g/dL (3.2-5.5); ALBUMIN/GLOBULIN RATIO 1.2 (1.0-2.2); BILIRUBIN,TOTAL 0.7 mg/dL (0.2-1.0); CALCIUM 9.1 mg/dL (8.5-10.3); CREATININE 0.8 mg/dL (0.4-1.0); ETOH - ETHANOL 33.1 mg/dL; MAGNESIUM 2.2 mg/dL (1.7-2.8); POTASSIUM 3.7 mmol/L (3.5-5.0); TOTAL PROTEIN 7.5 g/dL (6.7-8.2)
[2022-08-08] MEDS ORDERED: iohexoL-300 100 ML VIAL ONE (10:44)
[2022-08-08] MEDS ORDERED: iohexoL-300 100 ML VIAL IVP ONE (11:33)
--- NOTE | 2022-08-08 11:53 | CT Report ---
PROCEDURE: ABDOMEN/PELVIS W INDICATIONS: eval for further increase cyst size/etc. CONTRAST: 100ml Omnipauqe 300 TECHNIQUE: After the administration of intravenous contrast, 5 mm thick sections acquired from the diaphragms to the symphysis. 5 mm thick coronal and sagittal reformats were acquired. For radiation dose reducti on, the following was used: automated exposure control, adjustment of mA and/or kV according to angelica ent size. COMPARISON: CT abdomen pelvis dated 08/04/2022, MRCP with and without contrast dated 07/03/2022 FINDINGS: Image quality: Excellent. ABDOMEN: Lung bases: Lung bases are clear. Heart size is normal. Solid organs: Liver and spleen are normal in size and enhancement. Gallbladder is unremarkable Romeo iary system is non dilated. A large pseudocyst in the region of the pancreatic head and uncinate proc ess is unchanged from the most recent prior study. Previously it measured 5.7 x 6.6 x 5.5 cm. Today i t measures 5.7 x 6.5 x 5.6 cm. The pancreas otherwise enhances normally. There is a small exophytic n odular area of the tail of the pancreas on image 28/3 measuring 9 mm. It enhances similar to the rest of the pancreas, and may simply represent a contour abnormality and not a real lesion. It doesn't bonner ve imaging characteristics which are typical for islet cell tumor. No adrenal nodules. Kidneys demon strate normal size and enhancement, without hydronephrosis. Peritoneum and bowel: Bowel loops demonstrate normal wall thickness and caliber. No free fluid or a ir. Nodes and vessels: No retroperitoneal or mesenteric adenopathy by size criteria. Aorta and inferior vena cava are normal in size. Miscellaneous: No ventral hernias. PELVIS: Genitourinary: Bladder wall thickness is normal. Miscellaneous: No inguinal hernias or adenopathy. IUD in the uterus. Bones: No suspicious bony lesions. No vertebral body compression fractures. IMPRESSION: 1. Unchanged size and appearance of large pseudocyst involving the pancreatic head and uncinate proce ss. 2. A somewhat nodular exophytic nodular appearance of the tail of the pancreas measuring approximatel y 9 mm likely represents a contour abnormality of normal pancreas, and a neoplastic lesion. However, attention to this area on subsequent studies is recommended. Reviewed by: Humble Barrios MD on 08/08/2022 11:52 AM PST Approved by: Humble Barrios MD on 08/08/2022 11:52 AM PST Station ID: [id number]
[2022-08-08 12:49] LABS: BILIRUBIN,URINE NEGATIVE (NEGATIVE); CLARITY,URINE CLEAR (CLEAR); GLUCOSE, URINE (UA) NEGATIVE (NEGATIVE); KETONES,URINE (UA) NEGATIVE (NEGATIVE); LEUKOCYTE ESTERASE, URINE NEGATIVE (NEGATIVE); NITRITE,URINE NEGATIVE (NEGATIVE); OCCULT BLOOD,URINE NEGATIVE (NEGATIVE); PH,URINE 6.5 PH (5.0-7.5); PROTEIN,URINE NEGATIVE (NEGATIVE); UROBILINOGEN,URINE 0.2 (NORMAL) E.U./dL (NORMAL)
[2022-08-08 14:52] VITALS: BP 120/85
== END 2022-08-08 15:08 | disposition home or self-care (01) ==
LOC: EDUNIT# → ED 09:30
DX: K86.3 Pseudocyst of pancreas (principal); R10.11 Right upper quadrant pain; K86.1 Other chronic pancreatitis; F10.10 Alcohol abuse, uncomplicated; Y90.1 Blood alcohol level of 20-39 mg/100 ml; F17.200 Nicotine dependence, unspecified, uncomplicated; Z79.899 Other long term (current) drug therapy
CPT/HCPCS: 36415; 74177; 80053; 80320; 81003; 83690; 83735; 85025; 96361; 96374; 96375; 96376; 99284; J1170; Q9967; 81001; 87086

== ENCOUNTER 2022-08-12 06:10 | Outpatient (CLI) | payer MEDICAID | END 2022-08-12 23:59 | disposition critical access hospital (66) | LOC: EMS 06:10 | DX: R10.11 Right upper quadrant pain (principal); R11.2 Nausea with vomiting, unspecified | CPT/HCPCS: A0425; A0429; A0999 ==

== ENCOUNTER 2022-08-12 09:57 | Emergency (ER) | payer MEDICAID ==
[2022-08-12] MEDS ORDERED: HYDROmorphone 1 MG/ML CARPUJECT IVP STA ×4 (10:18→16:50)
[2022-08-12] MEDS ORDERED: SODIUM CHLORIDE 0.9% 1,000 ML IV STA ×3 (10:18→13:32)
[2022-08-12] MEDS ORDERED: ONDANSETRON 4 MG/2 ML VIAL IVP STA (10:19)
--- NOTE | 2022-08-12 10:22 | ED Physician Documentation ---
PD HPI ABD PAIN - Stated complaint Stated Complaint: ABD PX/NV - Chief complaint Chief Complaint: Abd Pain - History obtained from History obtained from: Patient, Other (Prior records) - Additional information Additional information: Patient is a 36-year-old female with a history of chronic pancreatitis and known pancreatic pseudocyst presenting for evaluation of epigastric abdominal pain that has been worsening for the past several days with associated nausea and vomiting. She was recently admitted from July 29 through for symptom control. She was again seen in the emergency department on August 08. She was given additional p.o. Dilaudid prescription. She has been taking this medication without any improvement in her symptoms for the past 2 days. She has been sticking to her diet which consists of chicken broth, yogurt and Jell-O and this morning was not able to keep anything down. She does admit to drinking a glass of champagne at 3:00 this morning to celebrate her friend's birthday after caving into peer pressure. However she states that her pain was already worsening prior to drinking the glass of champagne. The pain is sharp and feels similar to prior episodes. She has a GI doctor in [facility] by the name of Dr. Morel. She has not seen him recently and reports trying to reach out to him but has not had messages returned. Per prior discharge summary they had also attempted to reach him without success.Dr. Newell did speak with him on day of admission on July 29 and was told that her pseudocyst is not ready yet for surgical intervention and that she should be admitted for symptom control. Review of Systems Constitutional: denies: Fever Cardiac: denies: Chest pain / pressure Respiratory: denies: Dyspnea GI: reports: Abdominal Pain, Nausea, Vomiting : denies: Dysuria, Hematuria, Discharge Neurologic: denies: Headache PD PAST MEDICAL HISTORY - Past Medical History Cardiovascular: None Respiratory: None Neuro: Headaches Endocrine/Autoimmune: None GI: GERD, Ulcers, Pancreatitis, Cholelithiasis CABIN CLEANER: None : Kidney stones HEENT: None Psych: Depression, Anxiety, Panic attacks Musculoskeletal: None Derm: None - Past Surgical History Past Surgical History: Yes /CABIN CLEANER: Other HEENT: Tonsil/Adenoidectomy - Present Medications Home Medications: Ambulatory Orders Medication Instructions Recorded Confirmed Acetaminophen [Tylenol] 650 mg PO Q6H PRN 04/09/22 07/30/22 Acamprosate Calcium 2 tab PO TID 07/01/22 07/30/22 Ondansetron HCl 1 tab PO QID PRN 07/01/22 07/30/22 polyethylene glycoL 3350 17 g PO DAILY PRN 07/01/22 07/30/22 [Polyethylene Glycol 3350] Lipase/Protease/Amylase [Frank Ledbetter 24,000 unit PO TIDWM 07/30/22 08/08/22 24,000 Unit Capsule] HYDROmorphone [Dilaudid] 2 mg PO Q6HR PRN #10 tab 08/02/22 08/08/22 Pnv No.95/Ferrous Fum/Folic AC 1 each PO DAILY #30 tablet 08/02/22 [ Caplet] Famotidine [Pepcid] 20 mg PO DAILY #20 tablet 08/08/22 HYDROmorphone [Dilaudid] 2 mg PO Q8H PRN #20 tablet 08/08/22 Promethazine [Phenergan] 25 mg PO Q6H PRN #20 tab 08/08/22 - Allergies Allergies/Adverse Reactions: Allergies Allergy/AdvReac Type Severity Reaction Status Date / Time No Known Drug Allergies Allergy Verified 08/12/22 10:04 - Social History Does the pt smoke?: Yes Smoking Status: Current every day smoker Does the pt drink ETOH?: Yes Does the pt have substance abuse?: Yes - Immunizations Immunizations are current?: Yes - POLST Patient has POLST: No POLST Status: Full Code PD ED PE NORMAL - General General: Alert and oriented X 3, No acute distress, Well developed/nourished, Other (Tearful) - HEENT HEENT: Atraumatic - Neck Neck: Supple, no meningeal sign - Cardiac Cardiac: Other (Tachycardic, regular rhythm) - Respiratory Respiratory: No respiratory distress, Clear bilaterally - Abdomen Abdomen: Normal bowel sounds, Soft, Non distended, Other (Epigastric tenderness to palpation) - Derm Derm: Warm and dry - Neuro Neuro: Normal speech Results - Vitals Vitals: Vital Signs - 24 hr 08/12/22 08/12/22 08/12/22 10:01 10:35 12:35 Temperature 37.0 C Heart Rate 109 H 90 70 Respiratory 20 20 13 Rate Blood Pressure 129/90 H 133/89 H 124/101 H O2 Saturation 96 100 98 02/27/23 02/27/23 14:08 16:04 Temperature Heart Rate 77 70 Respiratory 14 12 Rate Blood Pressure 110/95 H 122/96 H O2 Saturation 96 100 Oxygen O2 Source Room air - EKG (time done) 1622 Rate: Rate (enter#) (71) Rhythm: NSR Ischemia: No: ST elevation c/w ischemia - Labs Labs: Laboratory Tests 08/12/22 08/12/22 08/12/22 10:23 10:23 10:23 WBC 5.7 RBC 3.92 L Hgb 12.7 Hct 39.5 MCV 100.8 H MCH 32.4 H MCHC 32.2 RDW 14.2 Plt Count 286 MPV 10.5 Neut # (Auto) 3.7 Lymph # (Auto) 1.4 L [place] # (Auto) 0.3 Eos # (Auto) 0.2 Baso # (Auto) 0.1 Absolute Nucleated RBC 0.00 Nucleated RBC % 0.0 Sodium 134 L Potassium 3.9 Chloride 102 Carbon Dioxide 26 Anion Gap 6.0 BUN 10 Creatinine 0.7 Estimated GFR (MDRD) 95 Glucose 103 H Calcium 9.0 Total Bilirubin < 0.2 L AST 17 ALT 14 Alkaline Phosphatase 70 Total Protein 6.6 L Albumin 3.6 Globulin 3.0 Albumin/Globulin Ratio 1.2 Lipase 28 Serum HCG, Qual NEGATIVE Ethyl Alcohol < 5.0 SARS-CoV-2 (PCR) 08/12/22 16:26 WBC RBC Hgb Hct MCV MCH MCHC RDW Plt Count MPV Neut # (Auto) Lymph # (Auto) [place] # (Auto) Eos # (Auto) Baso # (Auto) Absolute Nucleated RBC Nucleated RBC % Sodium Potassium Chloride Carbon Dioxide Anion Gap BUN Creatinine Estimated GFR (MDRD) Glucose Calcium Total Bilirubin AST ALT Alkaline Phosphatase Total Protein Albumin Globulin Albumin/Globulin Ratio Lipase Serum HCG, Qual Ethyl Alcohol SARS-CoV-2 (PCR) NOT DETECTED PD Medical Decision Making - ED course Complexity details: reviewed results, re-evaluated patient, d/w patient ED course: Patient presenting for evaluation of epigastric and left upper quadrant pain. She is well-known to this department for presentations related to pancreatitis and known pseudocyst. She is slightly tachycardic but otherwise stable vital signs. Her labs were reviewed and appear stable. CT imaging was obtained given worsening pain and that there is an increase in the size of her pseudocyst. I consulted with her GI doctor at [facility] and he recommends transfer as it seems to be at a point where drainage is an option.I discussed with the hospitalist at [facility] who also graciously agrees to accept the patient in transfer. Patient was treated with 2 L of IV fluids, maintenance fluids, IV narcotics, Zofran. Patient is awaiting transfer at shift change. A bed has been assigned and we are waiting for an ambulance. 1315 - D/W Dr. Bautista (GI at [facility]) - Reviewed recent CT imaging including CT from 08/08 and from today with interval increase in size of patient's pancreatic pseudocyst. He recommends transfer to [facility] as it seems to be at a point now where he can drain it. 1605- D/W Dr. Butler ([facility], Hospitalist) - Discussed case with on-call hospitalist and he graciously accepts the patient in transfer. Departure - Departure Disposition: 02 Transfer Acute Care Hosp Clinical Impression: Pancreatic pseudocyst, Intractable abdominal pain Condition: Fair
[2022-08-12 10:35] LABS: BASOPHILS # (AUTO) 0.1 10^3/uL (0.0-0.1); BASOPHILS % (AUTO) 1.1 %; EOSINOPHILS # (AUTO) 0.2 10^3/uL (0.0-0.7); HCT - HEMATOCRIT 39.5 % (37.0-47.0); HGB - HEMOGLOBIN 12.7 g/dL (12.0-16.0); LYMPHOCYTES # (AUTO) 1.4 10^3/uL (1.5-3.5); LYMPHOCYTES % (AUTO) 24.5 %; MEAN CORPUSCULAR HEMOGLOBIN 32.4 pg (27.0-31.0); MEAN CORPUSCULAR HGB CONC 32.2 g/dL (32.0-36.0); MEAN CORPUSCULAR VOLUME 100.8 fL (81.0-99.0); MEAN PLATELET VOLUME 10.5 fL (7.9-10.8); MONOCYTES # (AUTO) 0.3 10^3/uL (0.0-1.0); NEUTROPHILS # (AUTO) 3.7 10^3/uL (1.5-6.6); NEUTROPHILS % (AUTO) 65.2 %; PLT - PLATELET COUNT 286 10^3/uL (130-450); RED BLOOD COUNT 3.92 10^6/uL (4.20-5.40); RED CELL DISTRIBUTION WIDTH 14.2 % (12.0-15.0); WHITE BLOOD COUNT 5.7 x10^3/uL (4.8-10.8)
[2022-08-12 10:45] LABS: ALBUMIN 3.6 g/dL (3.2-5.5); ALBUMIN/GLOBULIN RATIO 1.2 (1.0-2.2); ALKALINE PHOSPHATASE 70 IU/L (42-121); ALT ALANINE AMINOTRANSFERASE 14 IU/L (10-60); AST ASPARTATE AMINOTRANSFERASE 17 IU/L (10-42); BILIRUBIN,TOTAL < 0.2 mg/dL (0.2-1.0); BUN - BLOOD UREA NITROGEN 10 mg/dL (6-20); CARBON DIOXIDE - CO2 26 mmol/L (21-32); CHLORIDE 102 mmol/L (101-111); CREATININE 0.7 mg/dL (0.4-1.0); ETOH - ETHANOL < 5.0 mg/dL; GFR - MDRD 95 (>89); GLUCOSE 103 mg/dL (70-100); LIPASE 28 U/L (22-51); POTASSIUM 3.9 mmol/L (3.5-5.0); SODIUM 134 mmol/L (135-145); TOTAL PROTEIN 6.6 g/dL (6.7-8.2)
[2022-08-12 10:51] LABS: HCG,QUALITATIVE BLOOD NEGATIVE
[2022-08-12] MEDS ORDERED: iohexoL-300 100 ML VIAL ONE (10:54)
[2022-08-12] MEDS ORDERED: iohexoL-300 100 ML VIAL IVP ONE (11:17)
--- NOTE | 2022-08-12 12:01 | CT Report ---
PROCEDURE: ABDOMEN/PELVIS W INDICATIONS: worsening pain and vomiting/known pseudocyst CONTRAST: 100ml Omnipaque 300 TECHNIQUE: After the administration of intravenous contrast, 5 mm thick sections acquired from the diaphragms to the symphysis. 5 mm thick coronal and sagittal reformats were acquired. For radiation dose reducti on, the following was used: automated exposure control, adjustment of mA and/or kV according to angelica ent size. COMPARISON: 08/08/2022 FINDINGS: Image quality: Excellent. ABDOMEN: Lung bases: Lung bases are clear. Heart size is normal. Solid organs: Liver and spleen are normal in size and enhancement. Gallbladder is unremarkable with out calcified gallstones. Biliary system is non dilated. Interval increase in size of pseudocyst inv olving the pancreatic head and neck. On previous image 32/3 it measures 6.4 x 5.5 cm. On current imag e 32/3 and measures 6.8 x 6.0 cm. No adrenal nodules. Kidneys demonstrate normal size and enhancemen t, without hydronephrosis. Peritoneum and bowel: Bowel loops demonstrate normal wall thickness and caliber. No free fluid or a ir. Nodes and vessels: No retroperitoneal or mesenteric adenopathy by size criteria. Aorta and inferior vena cava are normal in size. Miscellaneous: No ventral hernias. PELVIS: Genitourinary: Bladder wall thickness is normal. Miscellaneous: No inguinal hernias or adenopathy. IUD. Bones: No suspicious bony lesions. No vertebral body compression fractures. IMPRESSION: Short interval mild increase in the size of a large pseudocyst involving the pancreatic head and uncinate process Reviewed by: Humble Barrios MD on 08/12/2022 11:59 AM PST Approved by: Humble Barrios MD on 08/12/2022 11:59 AM PST Station ID: [id number]
[2022-08-12] MEDS ORDERED: KETOROLAC 30 MG/ML VIAL IVP STA (13:31)
[2022-08-12 18:14] VITALS: BP 116/89
== END 2022-08-12 19:00 | disposition short-term general hospital (02) ==
LOC: EDUNIT# → ED 09:57
DX: K86.3 Pseudocyst of pancreas (principal); F17.200 Nicotine dependence, unspecified, uncomplicated
CPT/HCPCS: 36415; 74177; 80053; 80320; 83690; 84703; 85025; 87635; 93005; 96374; 96376; 99284; 99285; J1170; Q9967

== ENCOUNTER 2022-08-12 18:27 | Outpatient (CLI) | payer MEDICAID | END 2022-08-12 23:59 | disposition short-term general hospital (02) | LOC: EMS 18:27 | PROVIDERS: ATTEND Emergency Medicine | DX: K86.3 Pseudocyst of pancreas (principal); R10.9 Unspecified abdominal pain | CPT/HCPCS: A0425; A0426 ==

== ENCOUNTER 2022-10-04 17:00 | Outpatient (CLI) | payer MEDICAID | END 2022-10-04 23:59 | disposition critical access hospital (66) | LOC: EMS 17:00 | DX: R10.13 Epigastric pain (principal); R11.2 Nausea with vomiting, unspecified | CPT/HCPCS: A0425; A0427; A0999 ==

== ENCOUNTER 2022-10-04 18:40 | Emergency (ER) | payer MEDICAID ==
[2022-10-04 19:02] LABS: BASOPHILS % (AUTO) 0.7 %; EOSINOPHILS # (AUTO) 0.1 10^3/uL (0.0-0.7); EOSINOPHILS % (AUTO) 0.8 %; HCT - HEMATOCRIT 40.1 % (37.0-47.0); HGB - HEMOGLOBIN 13.3 g/dL (12.0-16.0); LYMPHOCYTES # (AUTO) 2.4 10^3/uL (1.5-3.5); LYMPHOCYTES % (AUTO) 39.5 %; MEAN CORPUSCULAR HEMOGLOBIN 33.2 pg (27.0-31.0); MEAN CORPUSCULAR HGB CONC 33.2 g/dL (32.0-36.0); MEAN PLATELET VOLUME 10.3 fL (7.9-10.8); MONOCYTES # (AUTO) 0.3 10^3/uL (0.0-1.0); MONOCYTES % (AUTO) 5.6 %; NEUTROPHILS # (AUTO) 3.2 10^3/uL (1.5-6.6); NEUTROPHILS % (AUTO) 53.1 %; PLT - PLATELET COUNT 258 10^3/uL (130-450); RED BLOOD COUNT 4.01 10^6/uL (4.20-5.40); RED CELL DISTRIBUTION WIDTH 15.6 % (12.0-15.0); WHITE BLOOD COUNT 6.1 x10^3/uL (4.8-10.8)
[2022-10-04] MEDS ORDERED: HYDROmorphone 1 MG/ML CARPUJECT IVP STA (19:02)
[2022-10-04] MEDS ORDERED: SODIUM CHLORIDE 0.9% 1,000 ML IV STA (19:02)
--- NOTE | 2022-10-04 19:02 | ED Physician Documentation ---
PD HPI ABD PAIN - Stated complaint Stated Complaint: ABD PX - Chief complaint Chief Complaint: Abd Pain - History obtained from History obtained from: Patient, EMS - Additional information Additional information: This is a 36-year-old woman who presents by ambulance. She has a history of recurrent alcoholic pancreatitis with pseudocyst. She has a GI specialist, Dr. Morel at [facility]. She had a stent placed about 6 weeks ago. She states she has had increasing pain for the last 2 weeks especially since yesterday. She admits to drinking, "1 glass of wine today." Somewhat in contradiction to the fact that she smells of alcohol. On the way here she received fentanyl and Zofran with relief of her nausea but not the relief of her pain. 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 : Kidney stones HEENT: None Psych: Depression, Anxiety, Panic attacks Musculoskeletal: None Derm: None - Past Surgical History Past Surgical History: Yes /MAKE UP WORKER: Other HEENT: Tonsil/Adenoidectomy - Present Medications Home Medications: Ambulatory Orders Medication Instructions Recorded Confirmed Acamprosate Calcium 2 tab PO TID 07/01/22 10/04/22 Lipase/Protease/Amylase [Frank Ledbetter 24,000 unit PO TIDWM 07/30/22 10/04/22 24,000 Unit Capsule] Pnv No.95/Ferrous Fum/Folic AC 1 each PO DAILY #30 tablet 08/02/22 10/04/22 [ Caplet] Famotidine [Pepcid] 20 mg PO DAILY #20 tablet 08/08/22 10/04/22 Promethazine [Phenergan] 25 mg PO Q6H PRN #20 tab 08/08/22 10/04/22 DULoxetine [Cymbalta] 30 mg PO DAILY 10/04/22 10/04/22 Escitalopram Oxalate 20 mg PO DAILY 10/04/22 10/04/22 ONDANSETRON ODT Prepack 2 [ZOFRAN 4 mg PO Q6HR PRN 10/04/22 10/04/22 ODT] Omeprazole 40 mg PO DAILY #30 cap 10/04/22 Pantoprazole Sodium 40 mg PO DAILY 10/04/22 10/04/22 Prochlorperazine [Compazine] 5 mg PO Q6HR PRN 10/04/22 10/04/22 - Allergies Allergies/Adverse Reactions: Allergies Allergy/AdvReac Type Severity Reaction Status Date / Time No Known Drug Allergies Allergy Verified 08/12/22 10:04 - Social History Does the pt smoke?: Yes Smoking Status: Current every day smoker Does the pt drink ETOH?: Yes Does the pt have substance abuse?: Yes - Immunizations Immunizations are current?: Yes - POLST Patient has POLST: No POLST Status: Full Code PD ED PE NORMAL - Vitals Vital signs reviewed: Yes - General General: Alert and oriented X 3, Other (Tearful, smells of alcohol, alert and oriented) - HEENT HEENT: PERRL, EOMI, Other (Anicteric) - Cardiac Cardiac: Other (Mild resting tachycardia without murmur) - Respiratory Respiratory: No respiratory distress, Clear bilaterally - Abdomen Abdomen: Other (Moderate tenderness in the upper abdomen without surgical signs) - Back Back: No CVA TTP, No spinal TTP - Neuro Neuro: Alert and oriented X 3, Normal speech Results - Vitals Vitals: Vital Signs - 24 hr 10/04/22 10/04/22 10/04/22 18:46 19:00 19:15 Temperature 36.9 C 37.1 C Heart Rate 109 H 100 105 H Respiratory 20 17 18 Rate Blood Pressure 103/79 111/80 O2 Saturation 98 93 99 10/04/22 20:07 Temperature Heart Rate 86 Respiratory 16 Rate Blood Pressure 92/68 O2 Saturation 98 Oxygen O2 Source Room air - Labs Labs: Laboratory Tests 10/04/22 10/04/22 10/04/22 18:58 18:58 18:58 WBC 6.1 RBC 4.01 L Hgb 13.3 Hct 40.1 MCV 100.0 H MCH 33.2 H MCHC 33.2 RDW 15.6 H Plt Count 258 MPV 10.3 Neut # (Auto) 3.2 Lymph # (Auto) 2.4 [place] # (Auto) 0.3 Eos # (Auto) 0.1 Baso # (Auto) 0.0 Absolute Nucleated RBC 0.00 Nucleated RBC % 0.0 PT 10.4 INR 0.9 Sodium 139 Potassium 4.0 Chloride 108 Carbon Dioxide 21 Anion Gap 10.0 BUN 11 Creatinine 0.6 Estimated GFR (MDRD) 114 Glucose 119 H Calcium 8.7 Magnesium 2.2 Total Bilirubin 0.4 AST 16 ALT 12 Alkaline Phosphatase 62 Total Protein 7.4 Albumin 4.3 Globulin 3.1 Albumin/Globulin Ratio 1.4 Lipase 51 Urine Color Urine Clarity Urine pH Ur Specific [place] Urine Protein Urine Glucose (UA) Urine Ketones Urine Occult Blood Urine Nitrite Urine Bilirubin Urine Urobilinogen Ur Leukocyte Esterase Ur Microscopic Review Urine Culture Comments Urine HCG, Qual Urine Opiates Screen Ur Oxycodone Screen Urine Methadone Screen Ur Propoxyphene Screen Ur Barbiturates Screen Ur Tricyclics Screen Ur Phencyclidine Scrn Ur Amphetamine Screen U Methamphetamines Scrn U Benzodiazepines Scrn Urine Cocaine Screen U Cannabinoids Screen Ethyl Alcohol 207.6 10/04/22 20:01 WBC RBC Hgb Hct MCV MCH MCHC RDW Plt Count MPV Neut # (Auto) Lymph # (Auto) [place] # (Auto) Eos # (Auto) Baso # (Auto) Absolute Nucleated RBC Nucleated RBC % PT INR Sodium Potassium Chloride Carbon Dioxide Anion Gap BUN Creatinine Estimated GFR (MDRD) Glucose Calcium Magnesium Total Bilirubin AST ALT Alkaline Phosphatase Total Protein Albumin Globulin Albumin/Globulin Ratio Lipase Urine Color YELLOW Urine Clarity CLEAR Urine pH 6.0 Ur Specific [place] 1.020 Urine Protein NEGATIVE Urine Glucose (UA) NEGATIVE Urine Ketones NEGATIVE Urine Occult Blood NEGATIVE Urine Nitrite NEGATIVE Urine Bilirubin NEGATIVE Urine Urobilinogen 0.2 (NORMAL) Ur Leukocyte Esterase NEGATIVE Ur Microscopic Review NOT INDICATED Urine Culture Comments NOT INDICATED Urine HCG, Qual NEGATIVE Urine Opiates Screen POSITIVE H Ur Oxycodone Screen NEGATIVE Urine Methadone Screen NEGATIVE Ur Propoxyphene Screen NEGATIVE Ur Barbiturates Screen NEGATIVE Ur Tricyclics Screen NEGATIVE Ur Phencyclidine Scrn NEGATIVE Ur Amphetamine Screen NEGATIVE U Methamphetamines Scrn NEGATIVE U Benzodiazepines Scrn NEGATIVE Urine Cocaine Screen NEGATIVE U Cannabinoids Screen POSITIVE H Ethyl Alcohol - Rads (name of study) CT of the abdomen pelvis with IV contrast Relevant Findings:: Final report received, EMP independent interpretation of test PD Medical Decision Making - ED course ED course: 36-year-old woman with history of Alcohol abuse and alcoholic pancreatitis with pseudocyst that was drained recently presents with upper abdominal pain in the setting of alcohol intoxication. Her CBC is reviewed and basically normal. CMP reviewed and normal. Lipase negative/normal. Urine normal. Urine tox screen positive for opiates and cannabinoids. Alcohol level 207. CT was done showing improved changes of the pancreatic pseudocyst which was recently drained, she probably has chronic but not acute pancreatitis based on this, with her acute pain she probably has alcoholic gastritis which is treated with pain and nausea medications as well as Protonix here. She promises to quit drinking. Departure - Departure Disposition: 01 Home, Self Care Clinical Impression: Alcohol use disorder Gastritis Qualifiers: Gastritis type: alcoholic Chronicity: acute Gastritis bleeding: without bleeding Qualified Code(s): K29.20 - Alcoholic gastritis without bleeding Condition: Good Record reviewed to determine appropriate education?: Yes Instructions: ED Gastritis, ED Alcohol Abuse Prescriptions: Omeprazole 40 mg PO DAILY #30 cap Comments: As discussed, the findings of pancreatitis on your CT have significantly improved from prior and there are no findings of pancreatitis on your labs tonight. By process of illumination the bulk of the pain tonight is actually probably alcoholic gastritis. The treatment for this is antacids which I am prescribing, but also cessation of alcohol. Your blood alcohol level tonight was 207 which for a woman of your size is approximately equivalent to 8 alcoho lic beverages. Call your doctor to arrange a follow-up appointment, make the next available appointment. In the interim, return anytime if worse or if new symptoms develop.
[2022-10-04 19:10] LABS: INR 0.9 (0.8-1.2); PT - PROTHROMBIN TIME 10.4 secs (9.9-12.6)
[2022-10-04 19:15] LABS: ALBUMIN 4.3 g/dL (3.2-5.5); ALBUMIN/GLOBULIN RATIO 1.4 (1.0-2.2); BILIRUBIN,TOTAL 0.4 mg/dL (0.2-1.0); CALCIUM 8.7 mg/dL (8.5-10.3); CREATININE 0.6 mg/dL (0.4-1.0); ETOH - ETHANOL 207.6 mg/dL; MAGNESIUM 2.2 mg/dL (1.7-2.8); TOTAL PROTEIN 7.4 g/dL (6.7-8.2)
[2022-10-04] MEDS ORDERED: iohexoL-300 100 ML VIAL ONE (19:31)
[2022-10-04] MEDS ORDERED: iohexoL-300 100 ML VIAL IVP ONE (20:04)
[2022-10-04] MEDS ORDERED: KETOROLAC 15 MG/ML VIAL IVP STA (20:06)
[2022-10-04] MEDS ORDERED: METOCLOPRAMIDE 10 MG/2 ML VIAL IVP STA (20:06)
[2022-10-04 20:12] LABS: MUDS CUTOFF CONCENTRATIONS CUTOFF CONC BELOW:
[2022-10-04 20:16] LABS: BILIRUBIN,URINE NEGATIVE (NEGATIVE); GLUCOSE, URINE (UA) NEGATIVE (NEGATIVE); KETONES,URINE (UA) NEGATIVE (NEGATIVE); LEUKOCYTE ESTERASE, URINE NEGATIVE (NEGATIVE); NITRITE,URINE NEGATIVE (NEGATIVE); OCCULT BLOOD,URINE NEGATIVE (NEGATIVE); PROTEIN,URINE NEGATIVE (NEGATIVE); UROBILINOGEN,URINE 0.2 (NORMAL) E.U./dL (NORMAL)
[2022-10-04 20:19] LABS: CLARITY,URINE CLEAR (CLEAR); HCG UR QUAL NEGATIVE
[2022-10-04 20:32] LABS: AMPHETAMINE SCREEN,URINE NEGATIVE (NEGATIVE); BARBITURATE SCREEN,UR NEGATIVE (NEGATIVE); BENZODIAZEPINES SCREEN, URINE NEGATIVE (NEGATIVE); COCAINE SCREEN URINE NEGATIVE (NEGATIVE); METHADONE SCREEN, URINE NEGATIVE (NEGATIVE); METHAMPHETAMINES SCREEN, URINE NEGATIVE (NEGATIVE); OPIATE SCREEN, URINE POSITIVE (NEGATIVE); OXYCODONE SCREEN, URINE NEGATIVE (NEGATIVE); PROPOXYPHENE SCREEN, URINE NEGATIVE (NEGATIVE); THC CANNABINOID SCREEN, URINE POSITIVE (NEGATIVE); TRICYCLIC ANTIDEPRESSANT,URINE NEGATIVE (NEGATIVE)
--- NOTE | 2022-10-04 20:51 | CT Report ---
PROCEDURE: ABDOMEN/PELVIS W INDICATIONS: IV only, reevaluate pseudocyst CONTRAST: 100 ML OMNI 300 TECHNIQUE: After the administration of IV contrast, 5 mm thick sections acquired from the diaphragms to the symp hysis. 5 mm thick coronal and sagittal reformats were acquired. For radiation dose reduction, the f ollowing was used: automated exposure control, adjustment of mA and/or kV according to patient size. COMPARISON: 08/12/2022 FINDINGS: Image quality: Good Lower chest: Left small fissural nodule is present, requiring no dedicated follow-up. No pleural effu sions. Patulous distal esophagus. Solid organs: Liver is unremarkable. Gallbladder is unremarkable. Mild pancreatic head inflammatory c hanges, and hypoattenuation. Pseudocyst is significantly decreased in size, measuring 9 mm. No pathol ogic biliary ductal dilation. No splenomegaly. No adrenal nodules. No hydronephrosis. Vessels and lymph nodes: Main portal vein is patent. There is no pathologic adenopathy by size criter ia. No abdominal aortic aneurysm. Bowel and peritoneum: Mild to moderate inflammatory changes and edema is seen around the duodenal tong ove. The proximal duodenum is mildly dilated. No small bowel obstruction. No pathologic ascites. Ther e is a loculated cystic lesion at the left paracolic gutter, similar to prior measuring 2 cm on axial image 52. Body wall: Tiny fat-containing umbilical hernia. Pelvis: IUD in place. Reproductive organs are not well evaluated on CT. There is a suspected left cor pus luteum. Bladder is unremarkable. Bones: No acute or suspicious osseous abnormality. IMPRESSION: Compared to 08/12/2022, decrease in size of pancreatic head suspected walled off necrosis. There are m ild inflammatory changes and heterogeneity of the pancreatic head, also involving the duodenal groove , with mild dilation of the proximal duodenum. There is also a stable cystic lesion at the left parac olic gutter. Correlate with lipase and consider continued follow-up to ensure resolution. Pancreas pr otocol MRI could be helpful to reduce repeat CT dose exposures. Consider also GI correlation in the s etting of pancreatitis history. Reviewed by: Lito Berumen MD on 10/04/2022 8:50 PM PDT Approved by: Lito Berumen MD on 10/04/2022 8:50 PM PDT Station ID: [id number]
[2022-10-04] MEDS ORDERED: PANTOPRAZOLE 40 MG VIAL IVP STA (20:56)
[2022-10-04] MEDS ORDERED: oxyCODONE/ACET 5/325 Prepack 4 PO STA (20:56)
[2022-10-04] MEDS ORDERED: ONDANSETRON ODT 4 MG Prepack 2 TL STA (20:56)
[2022-10-04 20:59] VITALS: BP 107/77
== END 2022-10-04 21:10 | disposition home or self-care (01) ==
LOC: EDUNIT# → ED 18:40
DX: K29.20 Alcoholic gastritis without bleeding (principal); F10.90 Alcohol use, unspecified, uncomplicated; Y90.7 Blood alcohol level of 200-239 mg/100 ml; F17.200 Nicotine dependence, unspecified, uncomplicated; Z79.899 Other long term (current) drug therapy
CPT/HCPCS: 36415; 74177; 80053; 80306; 80320; 81003; 81025; 83690; 83735; 85025; 85610; 96374; 96375; 99284; 99285; J1170; J2765; Q9967; 81001; 87086

== ENCOUNTER 2022-11-10 09:59 | Emergency (ER) | payer MEDICAID ==
[2022-11-10 10:36] LABS: BASOPHILS % (AUTO) 0.3 %; EOSINOPHILS % (AUTO) 0.2 %; HCT - HEMATOCRIT 42.3 % (37.0-47.0); LYMPHOCYTES # (AUTO) 1.5 10^3/uL (1.5-3.5); LYMPHOCYTES % (AUTO) 12.1 %; MEAN CORPUSCULAR HEMOGLOBIN 33.4 pg (27.0-31.0); MEAN CORPUSCULAR HGB CONC 33.1 g/dL (32.0-36.0); MEAN PLATELET VOLUME 11.1 fL (7.9-10.8); MONOCYTES # (AUTO) 0.4 10^3/uL (0.0-1.0); MONOCYTES % (AUTO) 3.3 %; NEUTROPHILS # (AUTO) 10.5 10^3/uL (1.5-6.6); NEUTROPHILS % (AUTO) 83.7 %; PLT - PLATELET COUNT 189 10^3/uL (130-450); RED BLOOD COUNT 4.19 10^6/uL (4.20-5.40); RED CELL DISTRIBUTION WIDTH 13.7 % (12.0-15.0); WHITE BLOOD COUNT 12.5 x10^3/uL (4.8-10.8)
[2022-11-10 10:45] LABS: PT - PROTHROMBIN TIME 11.3 secs (9.9-12.6)
[2022-11-10 10:47] LABS: ALBUMIN 4.4 g/dL (3.2-5.5); ALBUMIN/GLOBULIN RATIO 1.3 (1.0-2.2); BILIRUBIN,TOTAL 0.7 mg/dL (0.2-1.0); CALCIUM 8.8 mg/dL (8.5-10.3); CREATININE 0.7 mg/dL (0.4-1.0); ETOH - ETHANOL 41.8 mg/dL; TOTAL PROTEIN 7.7 g/dL (6.7-8.2)
--- NOTE | 2022-11-10 11:14 | ED Physician Documentation ---
PD HPI ABD PAIN - Stated complaint Stated Complaint: ABDOMINAL PX - Chief complaint Chief Complaint: Abd Pain - History obtained from History obtained from: Patient - Additional information Additional information: 36-year-old woman with history of alcoholism and recurrent pancreatitis with pseudocyst, has a stent in place developed pain at 4 AM this morning. Initially when asked her when her last drink was, she said "I had 1 beer few days ago." When confronted with her blood alcohol level, she continued to lie about when her last drink was. After conversation she said then "I had 2 beers last night." I discussed with her that this is still inconsistent with her positive blood alcohol level 40 now. PD PAST MEDICAL HISTORY - Past Medical History Cardiovascular: None Respiratory: None Neuro: Headaches Endocrine/Autoimmune: None GI: GERD, Ulcers, Pancreatitis, Cholelithiasis WAITER/WAITRESS HEAD: None : Kidney stones HEENT: None Psych: Depression, Anxiety, Panic attacks Musculoskeletal: None Derm: None - Past Surgical History Past Surgical History: Yes /WAITER/WAITRESS HEAD: Other HEENT: Tonsil/Adenoidectomy - Present Medications Home Medications: Ambulatory Orders Medication Instructions Recorded Confirmed Acamprosate Calcium 2 tab PO TID 07/01/22 10/04/22 Lipase/Protease/Amylase [Creon Dr 24,000 unit PO TIDWM 07/30/22 10/04/22 24,000 Unit Capsule] Pnv No.95/Ferrous Fum/Folic AC 1 each PO DAILY #30 tablet 08/02/22 10/04/22 [ Caplet] Famotidine [Pepcid] 20 mg PO DAILY #20 tablet 08/08/22 10/04/22 Promethazine [Phenergan] 25 mg PO Q6H PRN #20 tab 08/08/22 10/04/22 DULoxetine [Cymbalta] 30 mg PO DAILY 10/04/22 10/04/22 Escitalopram Oxalate 20 mg PO DAILY 10/04/22 10/04/22 ONDANSETRON ODT Prepack 2 [ZOFRAN 4 mg PO Q6HR PRN 10/04/22 10/04/22 ODT] Omeprazole 40 mg PO DAILY #30 cap 10/04/22 Pantoprazole Sodium 40 mg PO DAILY 10/04/22 10/04/22 Prochlorperazine [Compazine] 5 mg PO Q6HR PRN 10/04/22 10/04/22 Omeprazole 40 mg PO DAILY #30 cap 11/10/22 Ondansetron Odt [Zofran] 4 mg TL Q6H PRN #10 tablet 11/10/22 oxyCODONE [Roxicodone] 5 mg PO Q4-6H PRN #15 tablet 11/10/22 - Allergies Allergies/Adverse Reactions: Allergies Allergy/AdvReac Type Severity Reaction Status Date / Time No Known Drug Allergies Allergy Verified 08/12/22 10:04 - Social History Does the pt smoke?: Yes Smoking Status: Current every day smoker Does the pt drink ETOH?: Yes Does the pt have substance abuse?: Yes - Immunizations Immunizations are current?: Yes - POLST Patient has POLST: No POLST Status: Full Code Results - Vitals Vitals: Vital Signs - 24 hr 11/10/22 11/10/22 10:21 12:25 Temperature 37 C Heart Rate 110 H 97 Respiratory 18 18 Rate Blood Pressure 103/77 128/81 H O2 Saturation 98 99 Oxygen O2 Source Room air - Labs Labs: Laboratory Tests 11/10/22 11/10/22 11/10/22 10:30 10:30 10:30 WBC 12.5 H RBC 4.19 L Hgb 14.0 Hct 42.3 MCV 101.0 H MCH 33.4 H MCHC 33.1 RDW 13.7 Plt Count 189 MPV 11.1 H Neut # (Auto) 10.5 H Lymph # (Auto) 1.5 [place] # (Auto) 0.4 Eos # (Auto) 0.0 Baso # (Auto) 0.0 Absolute Nucleated RBC 0.00 Nucleated RBC % 0.0 PT 11.3 INR 1.0 Sodium 139 Potassium 4.0 Chloride 108 Carbon Dioxide 20 L Anion Gap 11.0 BUN 14 Creatinine 0.7 Estimated GFR (MDRD) 95 Glucose 124 H Calcium 8.8 Total Bilirubin 0.7 AST 25 ALT 16 Alkaline Phosphatase 83 Total Protein 7.7 Albumin 4.4 Globulin 3.3 Albumin/Globulin Ratio 1.3 Lipase 87 H Urine Color Urine Clarity Urine pH Ur Specific [place] Urine Protein Urine Glucose (UA) Urine Ketones Urine Occult Blood Urine Nitrite Urine Bilirubin Urine Urobilinogen Ur Leukocyte Esterase Urine RBC Urine WBC Ur Squamous Epith Cells Amorphous Sediment Urine Bacteria Ur Microscopic Review Urine Culture Comments Urine HCG, Qual Urine Opiates Screen Ur Oxycodone Screen Urine Methadone Screen Ur Propoxyphene Screen Ur Barbiturates Screen Ur Tricyclics Screen Ur Phencyclidine Scrn Ur Amphetamine Screen U Methamphetamines Scrn U Benzodiazepines Scrn Urine Cocaine Screen U Cannabinoids Screen Ethyl Alcohol 41.8 11/10/22 11:11 WBC RBC Hgb Hct MCV MCH MCHC RDW Plt Count MPV Neut # (Auto) Lymph # (Auto) [place] # (Auto) Eos # (Auto) Baso # (Auto) Absolute Nucleated RBC Nucleated RBC % PT INR Sodium Potassium Chloride Carbon Dioxide Anion Gap BUN Creatinine Estimated GFR (MDRD) Glucose Calcium Total Bilirubin AST ALT Alkaline Phosphatase Total Protein Albumin Globulin Albumin/Globulin Ratio Lipase Urine Color YELLOW Urine Clarity CLOUDY Urine pH 5.5 Ur Specific [place] >=1.030 H Urine Protein TRACE Urine Glucose (UA) NEGATIVE Urine Ketones NEGATIVE Urine Occult Blood NEGATIVE Urine Nitrite NEGATIVE Urine Bilirubin NEGATIVE Urine Urobilinogen 0.2 (NORMAL) Ur Leukocyte Esterase NEGATIVE Urine RBC 0-5 Urine WBC 0-3 Ur Squamous Epith Cells RARE Squamous Amorphous Sediment Marked Urine Bacteria Moderate H Ur Microscopic Review INDICATED Urine Culture Comments NOT INDICATED Urine HCG, Qual NEGATIVE Urine Opiates Screen NEGATIVE Ur Oxycodone Screen NEGATIVE Urine Methadone Screen NEGATIVE Ur Propoxyphene Screen NEGATIVE Ur Barbiturates Screen NEGATIVE Ur Tricyclics Screen NEGATIVE Ur Phencyclidine Scrn NEGATIVE Ur Amphetamine Screen NEGATIVE U Methamphetamines Scrn NEGATIVE U Benzodiazepines Scrn NEGATIVE Urine Cocaine Screen NEGATIVE U Cannabinoids Screen POSITIVE H Ethyl Alcohol - Rads (name of study) CT of the abdomen pelvis showing evidence of pancreatitis but no pseudocyst remaining. Relevant Findings:: Final report received, EMP independent interpretation of test PD Medical Decision Making - ED course ED course: 36-year-old woman with recurrent pancreatitis related to alcohol abuse and history of pancreatic pseudocyst with ongoing alcohol abuse presents with pain consistent with prior episodes of pancreatitis with minimally elevated lipase. Initially evasive and incorrect about her alcohol use. Eventually we settled on she had 2 tall boy high gravity beers last night which I suppose could be true. She was difficult for IV access, the nurse was unable so given her only minimal elevation in white count on CBC and lipase on abdominal panel seems reasonable to treat her with IM meds and check a noncontrast CT just to make sure the pseudocyst is not growing. Offered social work consultation for detox. She has a place in mind and declines our social science professor. Feeling better after divided doses of Toradol, Dilaudid, and Reglan IM and passed a p.o. challenge here. Nontender on reevaluation at 1:30 PM prior to discharge. Counseled at length to obtain help for her alcoholism. Departure - Departure Disposition: 01 Home, Self Care Clinical Impression: Alcohol abuse, Recurrent pancreatitis Condition: Good Record reviewed to determine appropriate education?: Yes Instructions: ED Pancreatitis, ED Alcohol Abuse Prescriptions: Omeprazole 40 mg PO DAILY #30 cap oxyCODONE [Roxicodone] 5 mg PO Q4-6H PRN #15 tablet PRN Reason: Pain Ondansetron Odt [Zofran] 4 mg TL Q6H PRN #10 tablet PRN Reason: Nausea / Vomiting Comments: Please, please, please get some help with your alcoholism. Call your doctor to arrange a follow-up appointment, make the next available appointment. In the interim, return anytime if worse or if new symptoms develop. I sent your prescriptions electronically to the [facility] in [place]. I am prescribing a short course of narcotic pain medication for you. These are potentially dangerous and addictive medications that should be used carefully. These medications may constipate you. Take an vdxq-csu-ccdirsc stool softener (docusate) twice daily with plenty of water while taking these medications. If you go 24 hours without a bowel movement, take oncc-irj-wjyncep miralax, per package instructions. Do not drink or drive while taking these medications. If you received narcotic or sedating medications while in the emergency department, do not drive for 24 hours. Store this medication in a safe, secure place and out of reach of children. It is a violation of federal law to give or sell this medication to another person or to use in a manner other than prescribed. The ED will not refill narcotic prescriptions, including prescriptions lost or stolen. To dispose of unwanted medications: 1. [facility] at [address] in [place] has a medication drop box. They accept prescription medications (in pill form) Friday through Friday 9:00 a.m. to 5:00 p.m. 2. [facility] [employer] accepts prescription medications (in pill form only) for disposal year round. Call for more information. 3. Contact the [facility] for the next [facility] sponsored prescription drug collection event. , [phone], or [phone]; Note that many narcotic pain relievers also contain Tylenol/acetaminophen. Please ensure that your total dose of acetaminophen from all sources does not exceed 3 g (3000 mg) per day.
[2022-11-10] MEDS ORDERED: METOCLOPRAMIDE 10 MG/2 ML VIAL IM STA (11:35)
[2022-11-10] MEDS ORDERED: HYDROmorphone 1 MG/ML CARPUJECT IM STA (11:35)
[2022-11-10 12:11] LABS: MUDS CUTOFF CONCENTRATIONS CUTOFF CONC BELOW:
[2022-11-10 12:21] LABS: CLARITY,URINE CLOUDY (CLEAR); HCG UR QUAL NEGATIVE
[2022-11-10 12:24] LABS: AMPHETAMINE SCREEN,URINE NEGATIVE (NEGATIVE); BARBITURATE SCREEN,UR NEGATIVE (NEGATIVE); BENZODIAZEPINES SCREEN, URINE NEGATIVE (NEGATIVE); COCAINE SCREEN URINE NEGATIVE (NEGATIVE); METHADONE SCREEN, URINE NEGATIVE (NEGATIVE); METHAMPHETAMINES SCREEN, URINE NEGATIVE (NEGATIVE); OPIATE SCREEN, URINE NEGATIVE (NEGATIVE); OXYCODONE SCREEN, URINE NEGATIVE (NEGATIVE); PROPOXYPHENE SCREEN, URINE NEGATIVE (NEGATIVE); THC CANNABINOID SCREEN, URINE POSITIVE (NEGATIVE); TRICYCLIC ANTIDEPRESSANT,URINE NEGATIVE (NEGATIVE)
[2022-11-10 12:31] LABS: BILIRUBIN,URINE NEGATIVE (NEGATIVE); GLUCOSE, URINE (UA) NEGATIVE (NEGATIVE); KETONES,URINE (UA) NEGATIVE (NEGATIVE); LEUKOCYTE ESTERASE, URINE NEGATIVE (NEGATIVE); NITRITE,URINE NEGATIVE (NEGATIVE); OCCULT BLOOD,URINE NEGATIVE (NEGATIVE); PH,URINE 5.5 PH (5.0-7.5); PROTEIN,URINE TRACE mg/dL (NEGATIVE); UROBILINOGEN,URINE 0.2 (NORMAL) E.U./dL (NORMAL)
[2022-11-10 12:33] LABS: AMORPHOUS SEDIMENT,UR Marked /LPF; BACTERIA,URINE Moderate /HPF (None Seen); RBC,URINE 0-5 /HPF (0-5); SQUAMOUS EPITHELIAL CELL,UR RARE Squamous (<= Few); WBC,URINE 0-3 /HPF (0-5)
[2022-11-10] MEDS ORDERED: KETOROLAC 60 MG/2 ML VIAL IM STA (13:06)
--- NOTE | 2022-11-10 13:18 | CT Report ---
PROCEDURE: ABDOMEN/PELVIS WO INDICATIONS: Abdominal pain, eval stent and pseudocyst, no IV TECHNIQUE: Noncontrast 5 mm thick sections acquired from the diaphragms to the symphysis. 5 mm coronal and sagi ttal reformats were then performed. For radiation dose reduction, the following was used: automated exposure control, adjustment of mA and/or kV according to patient size. COMPARISON: Several prior CTs, the most recent from 10/04/2022 FINDINGS: Image quality: Decreased due to lack of IV contrast.. Lung bases and heart: Unremarkable. Liver: Mildly enlarged. Unenhanced appearance is within normal limits. Gallbladder and biliary tree: No calcifications. No visible biliary dilatation. Spleen: Normal. Pancreas: Proximal pancreas margin is indistinct. There is generalized inflammation adjacent to the p ancreatic head and proximal duodenum. No significant pancreatic ductal dilatation. Adrenals: No adrenal nodule. Kidneys and ureters: Normal contours. No hydronephrosis or nephrolithiasis. No hydroureter. Bowel and peritoneum: The proximal stomach is fluid-filled. Mild distal perigastric inflammation Smal l bowel loops are normal caliber. Mild inflammation in the lesser sac. Normal appendix and colon. Lymph nodes: No central or retroperitoneal adenopathy. Vessels: No infrarenal aortic aneurysm. PELVIS Reproductive organs: Anteverted uterus contains an IUD. Unenhanced appearance of the ovaries is unrem arkable. Bladder: Decompressed. Pelvic lymph nodes: No pelvic adenopathy by size criteria. Bones: No aggressive osseous abnormality. Other: No significant ventral or inguinal hernia. IMPRESSION: 1. Mild generalized proximal pancreatic and periduodenal inflammation and generalized lesser sac and distal perigastric inflammation. Findings are consistent with mild acute pancreatitis. 2. No visible pseudocyst without aid of IV contrast. 3. Hepatomegaly. Reviewed by: Emelyn Devi MD on 11/10/2022 12:17 PM WIN Approved by: Emelyn Devi MD on 11/10/2022 12:17 PM WIN Station ID: [id number]
[2022-11-10 13:48] VITALS: BP 129/73
== END 2022-11-10 13:48 | disposition home or self-care (01) ==
LOC: ED 09:59
DX: K85.20 Alcohol induced acute pancreatitis without necrosis or infection (principal); F10.10 Alcohol abuse, uncomplicated; Y90.2 Blood alcohol level of 40-59 mg/100 ml; K86.3 Pseudocyst of pancreas; F17.200 Nicotine dependence, unspecified, uncomplicated
CPT/HCPCS: 36415; 74176; 80053; 80306; 80320; 81001; 81025; 83690; 85025; 85610; 96372; 99284; J1170; J2765; 81003; 87086

== ENCOUNTER 2022-11-30 09:40 | Outpatient (CLI) | payer MEDICAID | END 2022-11-30 23:59 | disposition critical access hospital (66) | LOC: EMS 09:40 | DX: R10.12 Left upper quadrant pain (principal); R10.32 Left lower quadrant pain; R11.2 Nausea with vomiting, unspecified | CPT/HCPCS: A0425; A0427; A0999 ==

== ENCOUNTER 2022-11-30 10:05 | Emergency (ER) | payer MEDICAID ==
[2022-11-30 10:31] LABS: BASOPHILS % (AUTO) 0.5 %; EOSINOPHILS % (AUTO) 0.5 %; HCT - HEMATOCRIT 39.8 % (37.0-47.0); HGB - HEMOGLOBIN 13.1 g/dL (12.0-16.0); LYMPHOCYTES # (AUTO) 1.5 10^3/uL (1.5-3.5); MEAN CORPUSCULAR HEMOGLOBIN 33.3 pg (27.0-31.0); MEAN CORPUSCULAR HGB CONC 32.9 g/dL (32.0-36.0); MEAN CORPUSCULAR VOLUME 101.3 fL (81.0-99.0); MEAN PLATELET VOLUME 10.2 fL (7.9-10.8); MONOCYTES # (AUTO) 0.4 10^3/uL (0.0-1.0); MONOCYTES % (AUTO) 5.1 %; NEUTROPHILS # (AUTO) 6.6 10^3/uL (1.5-6.6); NEUTROPHILS % (AUTO) 76.6 %; PLT - PLATELET COUNT 240 10^3/uL (130-450); RED BLOOD COUNT 3.93 10^6/uL (4.20-5.40); RED CELL DISTRIBUTION WIDTH 13.5 % (12.0-15.0); WHITE BLOOD COUNT 8.6 x10^3/uL (4.8-10.8)
[2022-11-30 10:48] LABS: ALBUMIN 3.9 g/dL (3.2-5.5); ALBUMIN/GLOBULIN RATIO 1.3 (1.0-2.2); BILIRUBIN,TOTAL 0.9 mg/dL (0.2-1.0); CALCIUM 8.4 mg/dL (8.5-10.3); CREATININE 0.8 mg/dL (0.4-1.0); POTASSIUM 3.5 mmol/L (3.5-5.0)
--- NOTE | 2022-11-30 10:48 | ED Physician Documentation ---
PD HPI ABD PAIN - Stated complaint Stated Complaint: ABD PX - Chief complaint Chief Complaint: Abd Pain - History obtained from History obtained from: Patient - History of Present Illness Timing - onset: Today, Last night Timing - duration: Hours Timing - details: Abrupt onset, Still present Quality: Cramping, Aching, Pain Location: Epigastric, LUQ Radiation: Upper back Improved by: No: Vomiting, Position Worsened by: Eating, Moving, Palpation. No: Breathing Associated symptoms: Nausea, Vomiting. No: Fever, Hematemesis, Melena Similar symptoms before: Diagnosis (pancreatitis from alcohol use. She states had had few drinks of alcohol the past couple of days.) Recently seen: Emergency Dept (for pancreatic pains episodes. Had pancreatic cyst draining via EGD about 2 months ago.) Review of Systems Constitutional: denies: Fever, Chills Nose: denies: Rhinorrhea / runny nose, Congestion Throat: denies: Sore throat Respiratory: denies: Cough GI: reports: Abdominal Pain, Nausea, Vomiting. denies: Diarrhea, Hematemesis, Bloody / black stool Neurologic: reports: Generalized weakness. denies: Near syncope PD PAST MEDICAL HISTORY - Past Medical History Cardiovascular: None Respiratory: None Neuro: Headaches Endocrine/Autoimmune: None GI: GERD, Ulcers, Pancreatitis, Cholelithiasis PAPER LATCHER: None : Kidney stones HEENT: None Psych: Depression, Anxiety, Panic attacks Musculoskeletal: None Derm: None - Past Surgical History Past Surgical History: Yes /PAPER LATCHER: Other HEENT: Tonsil/Adenoidectomy - Present Medications Home Medications: Ambulatory Orders Medication Instructions Recorded Confirmed Acamprosate Calcium 2 tab PO TID 07/01/22 10/04/22 Lipase/Protease/Amylase [Frank Ledbetter 24,000 unit PO TIDWM 07/30/22 10/04/22 24,000 Unit Capsule] Pnv No.95/Ferrous Fum/Folic AC 1 each PO DAILY #30 tablet 08/02/22 10/04/22 [ Caplet] Famotidine [Pepcid] 20 mg PO DAILY #20 tablet 08/08/22 10/04/22 Promethazine [Phenergan] 25 mg PO Q6H PRN #20 tab 08/08/22 10/04/22 DULoxetine [Cymbalta] 30 mg PO DAILY 10/04/22 10/04/22 Escitalopram Oxalate 20 mg PO DAILY 10/04/22 10/04/22 ONDANSETRON ODT Prepack 2 [ZOFRAN 4 mg PO Q6HR PRN 10/04/22 10/04/22 ODT] Omeprazole 40 mg PO DAILY #30 cap 10/04/22 Pantoprazole Sodium 40 mg PO DAILY 10/04/22 10/04/22 Prochlorperazine [Compazine] 5 mg PO Q6HR PRN 10/04/22 10/04/22 Omeprazole 40 mg PO DAILY #30 cap 11/10/22 Ondansetron Odt [Zofran] 4 mg TL Q6H PRN #10 tablet 11/10/22 oxyCODONE [Roxicodone] 5 mg PO Q4-6H PRN #15 tablet 11/10/22 Ondansetron Odt [Zofran] 4 mg TL Q6H PRN #20 tablet 11/30/22 Promethazine Supp [Phenergan Supp] 25 mg AL Q6H PRN #10 supp 11/30/22 oxyCODONE [Roxicodone] 5 mg PO Q6H PRN #20 tablet 11/30/22 - Allergies Allergies/Adverse Reactions: Allergies Allergy/AdvReac Type Severity Reaction Status Date / Time No Known Drug Allergies Allergy Verified 11/30/22 10:15 - Social History Does the pt smoke?: Yes Smoking Status: Current every day smoker Does the pt drink ETOH?: Yes Does the pt have substance abuse?: Yes - Immunizations Immunizations are current?: Yes - POLST Patient has POLST: No POLST Status: Full Code PD ED PE NORMAL - Vitals Vital signs reviewed: Yes - General General: Alert and oriented X 3, Well developed/nourished, Other (appears in pain upper abd. ) - HEENT HEENT: PERRL (nonicteric) - Neck Neck: Supple, no meningeal sign, No adenopathy - Cardiac Cardiac: RRR, No murmur - Respiratory Respiratory: No respiratory distress, Clear bilaterally - Abdomen Abdomen: Normal bowel sounds, Soft, Non distended, No organomegaly, Other (very tender upper hector epigastric area with guarding and percussion tenderness. Lower abd not tedner. ) Results - Vitals Vitals: Vital Signs - 24 hr 06/11/30/22 11/30/22 10:11 12:56 14:18 Temperature 37.0 C Heart Rate 99 106 H 108 H Respiratory 20 20 16 Rate Blood Pressure 120/84 H 118/79 144/115 H O2 Saturation 100 99 98 11/30/22 14:35 Temperature Heart Rate 122 H Respiratory 20 Rate Blood Pressure 138/87 H O2 Saturation 95 Oxygen O2 Source Room air - Labs Labs: Laboratory Tests 11/30/22 11/30/22 11/30/22 10:24 10:24 11:00 WBC 8.6 RBC 3.93 L Hgb 13.1 Hct 39.8 MCV 101.3 H MCH 33.3 H MCHC 32.9 RDW 13.5 Plt Count 240 MPV 10.2 Neut # (Auto) 6.6 Lymph # (Auto) 1.5 [place] # (Auto) 0.4 Eos # (Auto) 0.0 Baso # (Auto) 0.0 Absolute Nucleated RBC 0.00 Nucleated RBC % 0.0 Sodium 136 Potassium 3.5 Chloride 106 Carbon Dioxide 20 L Anion Gap 10.0 BUN 11 Creatinine 0.8 Estimated GFR (MDRD) 82 L Glucose 112 H Calcium 8.4 L Total Bilirubin 0.9 AST 24 ALT 13 Alkaline Phosphatase 83 Total Protein 7.0 Albumin 3.9 Globulin 3.1 Albumin/Globulin Ratio 1.3 Lipase 256 H Urine Color DARK YELLOW Urine Clarity CLEAR Urine pH 5.0 Ur Specific [place] >=1.030 H Urine Protein TRACE Urine Glucose (UA) NEGATIVE Urine Ketones TRACE Urine Occult Blood TRACE-INTA Urine Nitrite NEGATIVE Urine Bilirubin NEGATIVE Urine Urobilinogen 0.2 (NORMAL) Ur Leukocyte Esterase NEGATIVE Ur Microscopic Review NOT INDICATED Urine Culture Comments NOT INDICATED Urine HCG, Qual 11/30/22 11:06 WBC RBC Hgb Hct MCV MCH MCHC RDW Plt Count MPV Neut # (Auto) Lymph # (Auto) [place] # (Auto) Eos # (Auto) Baso # (Auto) Absolute Nucleated RBC Nucleated RBC % Sodium Potassium Chloride Carbon Dioxide Anion Gap BUN Creatinine Estimated GFR (MDRD) Glucose Calcium Total Bilirubin AST ALT Alkaline Phosphatase Total Protein Albumin Globulin Albumin/Globulin Ratio Lipase Urine Color Urine Clarity Urine pH Ur Specific [place] Urine Protein Urine Glucose (UA) Urine Ketones Urine Occult Blood Urine Nitrite Urine Bilirubin Urine Urobilinogen Ur Leukocyte Esterase Ur Microscopic Review Urine Culture Comments Urine HCG, Qual NEGATIVE PD Medical Decision Making - ED course Complexity details: reviewed old records (Review of recent CT scan November 07 here at [facility] showed no apparent pancreatic cyst (was after her drainage procedure). I do not see reason for repeat scan now if symptoms reasonably improve. ), considered differential (history of recurrent/chronic pancreatic pains/panc reatitis due to alcohol use. She states recent alcohol use in past few days. Has been in detox and treatments in the past with prompt recidivism after done. ), d/w patient Drug Therapy Requiring Monitoring for Toxicity: The patient has received several doses of Dilaudid. This had been the main treatment in the past and has worked well at times and variable others. She is moderately improved with the Dilaudid along with Inapsine for nausea and Toradol IV. I talked with the patient about other pain medication options here in the ER. 1 of which would be a low-dose ketamine infusion for pain over 40 minutes. She is amenable to trying that and see if it works differently or better than the hydromorphone. The patient is taking sips of fluid and is asking for apple juice. Hopefully will be able to decrease her pain enough to try home therapy. Her lipase is elevated in the 250s which is above her most recent lab value which was 71. A CT scan done about 3 weeks ago on a last visit had shown no obvious pseudocyst. She states it was drained about 2 months ago. I do not see a reason for repeating scan at this time and the patient is agreeable. ED course: she was moderately/modestly improved with IV fluids, toradol, Inapsine and Dilaudid with repeat dose Dilaudid. She was still quite uncomfortable. Previous visits had used dilaudid as main medication along with the antieemetics. I discussed with her the use of other meds instead/along with the Dilaudid, such as low dose ketamine, and she was agreeable to try. I ordered ketamine infusion to be given over 40 minutes at dose of 0.5 mg/kg. This was given and with just half of the infusion in already, the patient was feeling quite a bit better. She had been taking sips of water and some juice prior to that, but more readily now. She was looking to be discharged as she had to get her kids at school, but was feeling much improved to tolerate home trial. Discharged in stable condition, appearing comfortable. Departure - Departure Disposition: Home, Self Care Clinical Impression: Upper abdominal pain, Pancreatitis, alcoholic, acute Condition: Stable Record reviewed to determine appropriate education?: Yes Prescriptions: Promethazine Supp [Phenergan Supp] 25 mg AL Q6H PRN #10 supp PRN Reason: Nausea / Vomiting oxyCODONE [Roxicodone] 5 mg PO Q6H PRN #20 tablet PRN Reason: Pain Ondansetron Odt [Zofran] 4 mg TL Q6H PRN #20 tablet PRN Reason: Nausea / Vomiting Comments: No alcohol please. Avoid fatty foods as well. You do have an inflammation of the pancreas related to presumably the alcohol use. Your lipase number and blood test is mildly elevated but not too high. We can see if you are able to treat this home outpatient medicines as you have done in the past. I wrote prescriptions for ondansetron if needed for nausea and promethazine suppository if you are having vomiting despite that. Tylenol every 4-6 hours if needed for pain and add oxycodone every 4-6 hours if needed for worse pain. This would be intended short-term. I sent your prescriptions to [facility] in [place]. Return to the ER if not improved well over the next few days and sooner if worse. Follow-up with your primary care. I am prescribing a short course of narcotic pain medication for you. These are potentially dangerous and addictive medications that should be used carefully. These medications may constipate you. Take an [id number] stool softener such as docusate twice daily with plenty of water while taking these medications. If you go 24 hours without a bowel movement, take [id number] MiraLAX, per package instructions. Do not drink or drive while taking these medications. If you received narcotic or sedating medications while in the emergency department do not drive for 24 hours. Store this medication in a safe, secure place and out of reach of children. It is a violation of federal law to give or sell this medication to another pe rson or to use in a manner other than prescribed. The ED will not refill narcotic prescriptions, including prescriptions lost or stolen. You can dispose of unwanted medications at the [facility]'s office or at several pharmacies such as [facility]. Discharge Date/Time: 11/30/22 14:50
[2022-11-30] MEDS ORDERED: SODIUM CHLORIDE 0.9% 1,000 ML IV STA (11:11)
[2022-11-30 11:12] LABS: BILIRUBIN,URINE NEGATIVE (NEGATIVE); GLUCOSE, URINE (UA) NEGATIVE (NEGATIVE); KETONES,URINE (UA) TRACE mg/dL (NEGATIVE); LEUKOCYTE ESTERASE, URINE NEGATIVE (NEGATIVE); NITRITE,URINE NEGATIVE (NEGATIVE); OCCULT BLOOD,URINE TRACE-INTA (NEGATIVE); PROTEIN,URINE TRACE mg/dL (NEGATIVE); UROBILINOGEN,URINE 0.2 (NORMAL) E.U./dL (NORMAL)
[2022-11-30 11:13] LABS: CLARITY,URINE CLEAR (CLEAR)
[2022-11-30 11:15] LABS: HCG UR QUAL NEGATIVE
[2022-11-30] MEDS ORDERED: DROPERIDOL 5 MG/2 ML VIAL IVP STA (11:22)
[2022-11-30] MEDS ORDERED: FAMOTIDINE 20 MG/2 ML VIAL IVP STA (11:22)
[2022-11-30] MEDS ORDERED: HYDROmorphone 1 MG/ML CARPUJECT IVP STA ×2 (11:23→12:11)
[2022-11-30] MEDS ORDERED: METOCLOPRAMIDE 10 MG/2 ML VIAL IVP STA (12:11)
[2022-11-30] MEDS ORDERED: KETOROLAC 15 MG/ML VIAL IVP STA (12:11)
[2022-11-30] MEDS ORDERED: SODIUM CHLORIDE 0.9% IV STA (13:12)
[2022-11-30] MEDS ORDERED: KETAMINE IV STA (13:12)
[2022-11-30 14:38] VITALS: BP 138/87
== END 2022-11-30 14:50 | disposition home or self-care (01) ==
LOC: EDUNIT# → ED 10:05
DX: K85.20 Alcohol induced acute pancreatitis without necrosis or infection (principal); F17.200 Nicotine dependence, unspecified, uncomplicated
CPT/HCPCS: 36415; 80053; 81003; 81025; 83690; 85025; 96365; 96375; 99284; 99285; J1170; J2765; 81001; 87086

== ENCOUNTER 2022-12-23 17:37 | Emergency (ER) | payer MEDICAID ==
--- NOTE | 2022-12-23 17:44 | ED Physician Documentation ---
PD HPI ABD PAIN - Stated complaint Stated Complaint: ABD PX - History obtained from History obtained from: Patient - Additional information Additional information: 36-year-old woman with recurrent alcoholic pancreatitis. Has had pseudocyst with drainage and stent placement in the past couple of months. Presents today with upper abdominal pain radiating to the back with vomiting and diarrhea. No blood from either end. States it feels different than prior pancreatitis. No fevers. Per EMS she received 200 mcg of fentanyl on the way here with modest relief. States "I took a sip off my sisters beer 2 days ago" which was her last alc oholic drink. States that she really has not been drinking much since our last encounter with counseling about alcohol use by me. As ancillary complaints she fell down some stairs about a week ago and has persistent pain of the right ankle. She is able to walk and bear weight. There were no other injuries. PD PAST MEDICAL HISTORY - Past Medical History Cardiovascular: None Respiratory: None Neuro: Headaches Endocrine/Autoimmune: None GI: GERD, Ulcers, Pancreatitis, Cholelithiasis POT RUNNER: None : Kidney stones HEENT: None Psych: Depression, Anxiety, Panic attacks Musculoskeletal: None Derm: None - Past Surgical History Past Surgical History: Yes /POT RUNNER: Other HEENT: Tonsil/Adenoidectomy - Present Medications Home Medications: Ambulatory Orders Medication Instructions Recorded Confirmed Acamprosate Calcium 2 tab PO TID 07/01/22 10/04/22 Lipase/Protease/Amylase [Frank Dr 24,000 unit PO TIDWM 07/30/22 10/04/22 24,000 Unit Capsule] Pnv No.95/Ferrous Fum/Folic AC 1 each PO DAILY #30 tablet 08/02/22 10/04/22 [ Caplet] Famotidine [Pepcid] 20 mg PO DAILY #20 tablet 08/08/22 10/04/22 Promethazine [Phenergan] 25 mg PO Q6H PRN #20 tab 08/08/22 10/04/22 DULoxetine [Cymbalta] 30 mg PO DAILY 10/04/22 10/04/22 Escitalopram Oxalate 20 mg PO DAILY 10/04/22 10/04/22 ONDANSETRON ODT Prepack 2 [ZOFRAN 4 mg PO Q6HR PRN 10/04/22 10/04/22 ODT] Omeprazole 40 mg PO DAILY #30 cap 10/04/22 Pantoprazole Sodium 40 mg PO DAILY 10/04/22 10/04/22 Prochlorperazine [Compazine] 5 mg PO Q6HR PRN 10/04/22 10/04/22 Omeprazole 40 mg PO DAILY #30 cap 11/10/22 Ondansetron Odt [Zofran] 4 mg TL Q6H PRN #10 tablet 11/10/22 oxyCODONE [Roxicodone] 5 mg PO Q4-6H PRN #15 tablet 11/10/22 Ondansetron Odt [Zofran] 4 mg TL Q6H PRN #20 tablet 11/30/22 Promethazine Supp [Phenergan Supp] 25 mg UT Q6H PRN #10 supp 11/30/22 oxyCODONE [Roxicodone] 5 mg PO Q6H PRN #20 tablet 11/30/22 Ondansetron Odt [Zofran] 4 mg TL Q6H PRN #10 tablet 12/23/22 oxyCODONE [Roxicodone] 5 mg PO Q4-6H PRN #7 tablet 12/23/22 - Allergies Allergies/Adverse Reactions: Allergies Allergy/AdvReac Type Severity Reaction Status Date / Time No Known Drug Allergies Allergy Verified 11/30/22 10:15 - Social History Does the pt smoke?: Yes Smoking Status: Current every day smoker Does the pt drink ETOH?: Yes Does the pt have substance abuse?: Yes - Immunizations Immunizations are current?: Yes - POLST Patient has POLST: No POLST Status: Full Code PD ED PE NORMAL - Vitals Vital signs reviewed: Yes - General General: Alert and oriented X 3, No acute distress - Cardiac Cardiac: RRR, No murmur - Respiratory Respiratory: No respiratory distress, Clear bilaterally - Abdomen Abdomen: Other (Minimal upper abdominal tenderness without surgical signs) - Extremities Extremities: Other (Mild tenderness of both malleoli of the right ankle with bruising tracking down into the foot which itself is nontender. No tenderness of the proximal fibula.) - Neuro Neuro: Alert and oriented X 3, Normal speech Results - Vitals Vitals: Vital Signs - 24 hr 12/23/22 12/23/22 12/23/22 17:43 19:18 20:34 Temperature 36.1 C L Heart Rate 77 69 87 Respiratory 15 15 18 Rate Blood Pressure 130/97 H 137/98 H 119/80 O2 Saturation 99 99 98 If not protocol 2 : Oxygen Flow, liters/minute 12/23/22 21:15 Temperature Heart Rate 81 Respiratory 15 Rate Blood Pressure 116/93 H O2 Saturation 99 If not protocol : Oxygen Flow, liters/minute Oxygen O2 Source Room air Oxygen Flow Rate 2 - Labs Labs: Laboratory Tests 12/23/22 12/23/22 17:45 17:45 WBC 7.7 RBC 4.11 L Hgb 14.2 Hct 42.0 MCV 102.2 H MCH 34.5 H MCHC 33.8 RDW 15.1 H Plt Count 216 MPV 10.0 Neut # (Auto) 6.6 Lymph # (Auto) 0.4 L [place] # (Auto) 0.6 Eos # (Auto) 0.0 Baso # (Auto) 0.0 Absolute Nucleated RBC 0.00 Nucleated RBC % 0.0 Sodium 138 Potassium 3.1 L Chloride 107 Carbon Dioxide 22 Anion Gap 9.0 BUN 9 Creatinine 0.8 Estimated GFR (MDRD) 82 L Glucose 157 H Calcium 8.5 Magnesium 1.6 L Total Bilirubin 1.2 H AST 130 H ALT 48 Alkaline Phosphatase 123 H Total Protein 6.7 Albumin 3.4 Globulin 3.3 Albumin/Globulin Ratio 1.0 Lipase 193 H Ethyl Alcohol < 5.0 - Rads (name of study) 3v R ankle XR Relevant Findings:: Final report received, EMP independent interpretation of test PD Medical Decision Making - ED course ED course: 36-year-old woman with exacerbation of chronic pancreatitis. She is not tender in her labs demonstrate no leukocytosis. She does have mild elevation of her liver enzymes and elevated lipase. After the administration of a milligram of Dilaudid she was still in a lot of pain, and repeat dosing was done but she got much more relief with a GI cocktail. She was pain-free and nontender on reevaluation, I do not think imaging is necessary tonight. She had an ancillary complaint of the right ankle injury with negative x-rays but follow-up advised given concern for ligamentous injury. She was walking normally in the department here (No limp at all) and I did not feel like she needed immobilization. Departure - Departure Disposition: 01 Home, Self Care Clinical Impression: Chronic pancreatitis due to acute alcohol intoxication, Right ankle sprain, Hypokalemia Condition: Good Record reviewed to determine appropriate education?: Yes Instructions: Pancreatitis Chronic Dc, ED Pancreatitis Prescriptions: oxyCODONE [Roxicodone] 5 mg PO Q4-6H PRN #7 tablet PRN Reason: Pain Ondansetron Odt [Zofran] 4 mg TL Q6H PRN #10 tablet PRN Reason: Nausea / Vomiting Comments: Ankle x-ray showed no break. There was a possibility of a ligamentous injury, follow-up with your doctor for further evaluation and treatment of same. Continue to abstain from alcohol. I sent your prescription electronically to [facility] in [place]. My instructions I am prescribing a short course of narcotic pain medication for you. These are potentially dangerous and addictive medications that should be used carefully. These medications may constipate you. Take an ougb-mcj-[id number] stool softener (docusate) twice daily with plenty of water while taking these medications. If you go 24 hours without a bowel movement, take [id number] miralax, per package instructions. Do not drink or drive while taking these medications. If you received narcotic or sedating medications while in the emergency department, do not drive for 24 hours. Store this medication in a safe, secure place and out of reach of children. It is a violation of federal law to give or sell this medication to another person or to use in a manner other than prescribed. The ED will not refill narcotic prescriptions, including prescriptions lost or stolen. To dispose of unwanted medications: 1. [facility] provides a drop box for medication in pill form only (no liquids) 8:00 am to 4:30 p.m. Friday-Friday in the lobby of the [facility], [address] [place] [address]. Empty pills into ziplock bag before disposal. Call [phone] for information. 2.[facility] is a free service available to all [facility] residents. Go to [email or web address] Note that many narcotic pain relievers also contain Tylenol/acetaminophen. Please ensure that your total dose of acetaminophen from all sources does not exceed 3 g (3000 mg) per day. Discharge Date/Time: 12/23/22 21:15
[2022-12-23] MEDS: ONDANSETRON 4 MG/2 ML VIAL IVP STA (17:53)
[2022-12-23] MEDS: HYDROmorphone 1 MG/ML CARPUJECT IVP STA ×3 (17:53→20:32)
[2022-12-23 17:54] LABS: BASOPHILS % (AUTO) 0.3 %; HGB - HEMOGLOBIN 14.2 g/dL (12.0-16.0); LYMPHOCYTES # (AUTO) 0.4 10^3/uL (1.5-3.5); LYMPHOCYTES % (AUTO) 5.6 %; MEAN CORPUSCULAR HEMOGLOBIN 34.5 pg (27.0-31.0); MEAN CORPUSCULAR HGB CONC 33.8 g/dL (32.0-36.0); MEAN CORPUSCULAR VOLUME 102.2 fL (81.0-99.0); MONOCYTES # (AUTO) 0.6 10^3/uL (0.0-1.0); MONOCYTES % (AUTO) 7.7 %; NEUTROPHILS # (AUTO) 6.6 10^3/uL (1.5-6.6); NEUTROPHILS % (AUTO) 86.1 %; PLT - PLATELET COUNT 216 10^3/uL (130-450); RED BLOOD COUNT 4.11 10^6/uL (4.20-5.40); RED CELL DISTRIBUTION WIDTH 15.1 % (12.0-15.0); WHITE BLOOD COUNT 7.7 x10^3/uL (4.8-10.8)
[2022-12-23 18:06] LABS: ALBUMIN 3.4 g/dL (3.2-5.5); ALKALINE PHOSPHATASE 123 IU/L (42-121); ALT ALANINE AMINOTRANSFERASE 48 IU/L (10-60); AST ASPARTATE AMINOTRANSFERASE 130 IU/L (10-42); BILIRUBIN,TOTAL 1.2 mg/dL (0.2-1.0); BUN - BLOOD UREA NITROGEN 9 mg/dL (6-20); CALCIUM 8.5 mg/dL (8.5-10.3); CARBON DIOXIDE - CO2 22 mmol/L (21-32); CHLORIDE 107 mmol/L (101-111); CREATININE 0.8 mg/dL (0.4-1.0); ETOH - ETHANOL < 5.0 mg/dL; GFR - MDRD 82 (>89); GLUCOSE 157 mg/dL (70-100); LIPASE 193 U/L (22-51); MAGNESIUM 1.6 mg/dL (1.7-2.8); POTASSIUM 3.1 mmol/L (3.5-5.0); SODIUM 138 mmol/L (135-145); TOTAL PROTEIN 6.7 g/dL (6.7-8.2)
[2022-12-23] MEDS: MAGNESIUM SULFATE 2 GRAM 2 GM/50 ML BAG IV ONE (18:31)
[2022-12-23] MEDS: POTASSIUM CHLOR 10 MEQ/100 ML 10 MEQ/100 ML BAG IV ONE (18:31)
[2022-12-23] MEDS: KETOROLAC 15 MG/ML VIAL IVP STA (19:14)
--- NOTE | 2022-12-23 20:11 | XRAY Report ---
PROCEDURE: Ankle 3 View RT INDICATIONS: ankle inj TECHNIQUE: 3 views of the ankle were acquired. COMPARISON: None. FINDINGS: Bones: No displaced fracture or dislocation. The medial mortise is mildly prominent measuring 4 mm. Soft tissues: No suspicious calcifications. IMPRESSION: No displaced fracture. The medial ankle mortise is mildly prominent measuring 4 mm. If there is moon rn for ligamentous injury, consider MRI. Reviewed by: Lito Berumen MD on 12/23/2022 8:10 PM PDT Approved by: Lito Berumen MD on 12/23/2022 8:10 PM PDT Station ID: [id number]
[2022-12-23] MEDS: LIDOCAINE VISCOUS 2% 15 ML ORAL SYRINGE MM STA (20:32)
[2022-12-23] MEDS: MAG HYDROX/AL HYDROX/SIMETH 30 ML UDC PO STA (20:32)
[2022-12-23] MEDS: oxyCODONE/ACET 5/325 Prepack 4 PO STA (21:03)
[2022-12-23 21:19] VITALS: BP 116/93
== END 2022-12-23 21:15 | disposition home or self-care (01) ==
LOC: EDUNIT# → ED 17:37
DX: K86.0 Alcohol-induced chronic pancreatitis (principal); S93.401A Sprain of unspecified ligament of right ankle, initial encounter; W10.9XXA Fall (on) (from) unspecified stairs and steps, initial encounter; E87.6 Hypokalemia; F17.200 Nicotine dependence, unspecified, uncomplicated; Z79.899 Other long term (current) drug therapy
CPT/HCPCS: 36415; 73610; 80053; 80320; 83690; 83735; 85025; 99283; 99284; A9270; J1170

== ENCOUNTER 2022-12-25 13:52 | Emergency (ER) | payer MEDICAID ==
--- NOTE | 2022-12-25 14:21 | ED Physician Documentation ---
PD HPI ABD PAIN - Stated complaint Stated Complaint: BACK/ABD PX - Chief complaint Chief Complaint: Abd Pain - History obtained from History obtained from: Patient - History of Present Illness Timing - onset: How many days ago (several days ago with upper abd pain and vomiting. Seen ER 2 days ago with IV fluids/meds and improved enough to try home. She states continue pain and vomiting once home. Denies alcohol use.) Timing - duration: Days Timing - details: Abrupt onset, Still present Quality: Cramping, Aching, Pain Location: Epigastric, Periumbilical Radiation: Lower back. No: Chest Improved by: No: Meds (had not gotten to pharmacy for Rx meds from visit 2 days ago. Using Zofran had at home and Ibuprofen.) Worsened by: Eating Associated symptoms: Nausea, Vomiting, Diarrhea (loose). No: Constipation, Melena, Hematochezia Similar symptoms before: Diagnosis (pancreatitis from alochol use in the past. Has had gastritis symptoms previously as well.) Recently seen: Emergency Dept (2 days ago) Review of Systems Constitutional: denies: Fever, Chills Nose: denies: Rhinorrhea / runny nose, Congestion Throat: denies: Sore throat Respiratory: denies: Cough GI: reports: Abdominal Pain, Nausea, Vomiting. denies: Hematemesis Neurologic: reports: Generalized weakness. 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 : Kidney stones HEENT: None Psych: Depression, Anxiety, Panic attacks Musculoskeletal: None Derm: None - Past Surgical History Past Surgical History: Yes /JITNEY DRIVER: Other HEENT: Tonsil/Adenoidectomy - Present Medications Home Medications: Ambulatory Orders Medication Instructions Recorded Confirmed Acamprosate Calcium 2 tab PO TID 07/01/22 10/04/22 Lipase/Protease/Amylase [Frank Ledbetter 24,000 unit PO TIDWM 07/30/22 10/04/22 24,000 Unit Capsule] Pnv No.95/Ferrous Fum/Folic AC 1 each PO DAILY #30 tablet 08/02/22 10/04/22 [ Caplet] Famotidine [Pepcid] 20 mg PO DAILY #20 tablet 08/08/22 10/04/22 Promethazine [Phenergan] 25 mg PO Q6H PRN #20 tab 08/08/22 10/04/22 DULoxetine [Cymbalta] 30 mg PO DAILY 10/04/22 10/04/22 Escitalopram Oxalate 20 mg PO DAILY 10/04/22 10/04/22 ONDANSETRON ODT Prepack 2 [ZOFRAN 4 mg PO Q6HR PRN 10/04/22 10/04/22 ODT] Omeprazole 40 mg PO DAILY #30 cap 10/04/22 Pantoprazole Sodium 40 mg PO DAILY 10/04/22 10/04/22 Prochlorperazine [Compazine] 5 mg PO Q6HR PRN 10/04/22 10/04/22 Omeprazole 40 mg PO DAILY #30 cap 11/10/22 Ondansetron Odt [Zofran] 4 mg TL Q6H PRN #10 tablet 11/10/22 oxyCODONE [Roxicodone] 5 mg PO Q4-6H PRN #15 tablet 11/10/22 Ondansetron Odt [Zofran] 4 mg TL Q6H PRN #20 tablet 11/30/22 Promethazine Supp [Phenergan Supp] 25 mg HI Q6H PRN #10 supp 11/30/22 oxyCODONE [Roxicodone] 5 mg PO Q6H PRN #20 tablet 11/30/22 Ondansetron Odt [Zofran] 4 mg TL Q6H PRN #10 tablet 12/23/22 oxyCODONE [Roxicodone] 5 mg PO Q4-6H PRN #7 tablet 12/23/22 - Allergies Allergies/Adverse Reactions: Allergies Allergy/AdvReac Type Severity Reaction Status Date / Time No Known Drug Allergies Allergy Verified 12/25/22 14:00 - Social History Does the pt smoke?: Yes Smoking Status: Current every day smoker Does the pt drink ETOH?: Yes Does the pt have substance abuse?: Yes - Immunizations Immunizations are current?: Yes - POLST Patient has POLST: No POLST Status: Full Code PD ED PE NORMAL - Vitals Vital signs reviewed: Yes - General General: Alert and oriented X 3, Well developed/nourished, Other (appears in significant pain upper abd. ) - Neck Neck: Supple, no meningeal sign, No adenopathy - Cardiac Cardiac: RRR, No murmur - Respiratory Respiratory: Clear bilaterally - Abdomen Abdomen: Normal bowel sounds, Soft, Non distended, No organomegaly, Other (tender with guarding in upper abd with percussion tenderness. ) - Back Back: No CVA TTP - Derm Derm: Normal color, Warm and dry - Extremities Extremities: No edema - Neuro Neuro: Alert and oriented X 3, No motor deficit, Normal speech Results - Vitals Vitals: Vital Signs - 24 hr 12/25/22 12/25/22 13:55 16:12 Temperature 35.8 C L Heart Rate 110 H 104 H Respiratory 19 16 Rate Blood Pressure 106/71 110/74 O2 Saturation 98 99 Oxygen O2 Source Room air - Labs Labs: Laboratory Tests 12/25/22 12/25/22 12/25/22 14:29 14:29 14:29 WBC 7.3 RBC 3.79 L Hgb 13.2 Hct 38.9 MCV 102.6 H MCH 34.8 H MCHC 33.9 RDW 15.5 H Plt Count 159 MPV 10.4 Neut # (Auto) 5.9 Lymph # (Auto) 0.6 L [place] # (Auto) 0.6 Eos # (Auto) 0.1 Baso # (Auto) 0.0 Absolute Nucleated RBC 0.00 Nucleated RBC % 0.0 Sodium 133 L Potassium 2.7 L Chloride 101 Carbon Dioxide 23 Anion Gap 9.0 BUN 11 Creatinine 0.6 Estimated GFR (MDRD) 114 Glucose 144 H Calcium 8.3 L Magnesium 1.9 Total Bilirubin 1.5 H AST 546 H ALT 161 H Alkaline Phosphatase 121 Total Protein 6.2 L Albumin 3.0 L Globulin 3.2 Albumin/Globulin Ratio 0.9 L Lipase 70 H Ethyl Alcohol < 5.0 PD Medical Decision Making - ED course Complexity details: reviewed old records (ED visit, noted, labs from ER visit 2 days ago. ), reviewed results, considered differential (ongoing pain from pancreatitis flare up. Her labs today showing decreasing lipase, so presume the pain amount should be downtrending. She improved with meds here and I would anticipate outpt meds to be okay. She is okay wiht trying home with the meds available at the pharmacy. ), d/w patient Departure - Departure Disposition: 01 Home, Self Care Clinical Impression: Acute upper abdominal pain, Pancreatitis Condition: Stable Record reviewed to determine appropriate education?: Yes Instructions: ED Pancreatitis Follow-Up: Sylwia Leblanc ARNP [Primary Care Provider] - Comments: Small frequent fluids. Low-fat/nonfat diet and mostly clear liquids for the next day or 2. This will help decrease pancreatic irritation. Of course avoid alcohol. Continue usual medications. You do have nausea and pain medicines available at the pharmacy from your prior visit. Return to the ER if needed. Your lipase blood test number is decreasing reasonably so I would anticipate your degree of pain will decrease proportionally and improve over the next day or 2. Discharge Date/Time: 12/25/22 17:09
[2022-12-25 14:38] LABS: BASOPHILS % (AUTO) 0.4 %; EOSINOPHILS # (AUTO) 0.1 10^3/uL (0.0-0.7); HCT - HEMATOCRIT 38.9 % (37.0-47.0); HGB - HEMOGLOBIN 13.2 g/dL (12.0-16.0); LYMPHOCYTES # (AUTO) 0.6 10^3/uL (1.5-3.5); LYMPHOCYTES % (AUTO) 8.8 %; MEAN CORPUSCULAR HEMOGLOBIN 34.8 pg (27.0-31.0); MEAN CORPUSCULAR HGB CONC 33.9 g/dL (32.0-36.0); MEAN CORPUSCULAR VOLUME 102.6 fL (81.0-99.0); MEAN PLATELET VOLUME 10.4 fL (7.9-10.8); MONOCYTES # (AUTO) 0.6 10^3/uL (0.0-1.0); MONOCYTES % (AUTO) 7.9 %; NEUTROPHILS # (AUTO) 5.9 10^3/uL (1.5-6.6); NEUTROPHILS % (AUTO) 81.6 %; PLT - PLATELET COUNT 159 10^3/uL (130-450); RED BLOOD COUNT 3.79 10^6/uL (4.20-5.40); RED CELL DISTRIBUTION WIDTH 15.5 % (12.0-15.0); WHITE BLOOD COUNT 7.3 x10^3/uL (4.8-10.8)
[2022-12-25] MEDS ORDERED: SODIUM CHLORIDE 0.9% 1,000 ML IV STA (14:42)
[2022-12-25] MEDS ORDERED: ONDANSETRON 4 MG/2 ML VIAL IVP STA (14:42)
[2022-12-25] MEDS ORDERED: MAG HYDROX/AL HYDROX/SIMETH 30 ML UDC PO STA (14:43)
[2022-12-25] MEDS ORDERED: HYDROmorphone 1 MG/ML CARPUJECT IVP STA ×2 (14:43→15:33)
[2022-12-25 14:56] LABS: ALBUMIN/GLOBULIN RATIO 0.9 (1.0-2.2); ALKALINE PHOSPHATASE 121 IU/L (42-121); ALT ALANINE AMINOTRANSFERASE 161 IU/L (10-60); AST ASPARTATE AMINOTRANSFERASE 546 IU/L (10-42); BILIRUBIN,TOTAL 1.5 mg/dL (0.2-1.0); BUN - BLOOD UREA NITROGEN 11 mg/dL (6-20); CALCIUM 8.3 mg/dL (8.5-10.3); CARBON DIOXIDE - CO2 23 mmol/L (21-32); CHLORIDE 101 mmol/L (101-111); CREATININE 0.6 mg/dL (0.4-1.0); ETOH - ETHANOL < 5.0 mg/dL; GFR - MDRD 114 (>89); GLUCOSE 144 mg/dL (70-100); LIPASE 70 U/L (22-51); POTASSIUM 2.7 mmol/L (3.5-5.0); SODIUM 133 mmol/L (135-145); TOTAL PROTEIN 6.2 g/dL (6.7-8.2)
[2022-12-25] MEDS ORDERED: KETOROLAC 15 MG/ML VIAL IVP STA (15:37)
[2022-12-25 16:15] VITALS: BP 110/74
[2022-12-25] MEDS ORDERED: HYDROmorphone 0.5 MG/0.5 ML SYRINGE IVP STA (16:37)
== END 2022-12-25 17:09 | disposition home or self-care (01) ==
LOC: ED 13:52
DX: K85.90 Acute pancreatitis without necrosis or infection, unspecified (principal); R10.13 Epigastric pain; F17.200 Nicotine dependence, unspecified, uncomplicated; Z79.899 Other long term (current) drug therapy
CPT/HCPCS: 36415; 80053; 80320; 83690; 83735; 85025; 99281; 99283; A9270; J1170

== ENCOUNTER 2023-02-04 08:05 | Outpatient (CLI) | payer MEDICAID | END 2023-02-04 23:59 | disposition critical access hospital (66) | LOC: EMS 08:05 | DX: R10.12 Left upper quadrant pain (principal); R11.0 Nausea | CPT/HCPCS: A0425; A0427; A0999 ==

== ENCOUNTER 2023-02-04 08:32 | Observation (INO) | payer MEDICAID ==
[2023-02-04 08:52] LABS: BASOPHILS % (AUTO) 0.3 %; EOSINOPHILS % (AUTO) 0.3 %; HCT - HEMATOCRIT 40.5 % (37.0-47.0); HGB - HEMOGLOBIN 13.8 g/dL (12.0-16.0); LYMPHOCYTES % (AUTO) 13.6 %; MEAN CORPUSCULAR HEMOGLOBIN 35.1 pg (27.0-31.0); MEAN CORPUSCULAR HGB CONC 34.1 g/dL (32.0-36.0); MEAN CORPUSCULAR VOLUME 103.1 fL (81.0-99.0); MEAN PLATELET VOLUME 10.7 fL (7.9-10.8); MONOCYTES # (AUTO) 0.5 10^3/uL (0.0-1.0); MONOCYTES % (AUTO) 6.6 %; NEUTROPHILS # (AUTO) 6.1 10^3/uL (1.5-6.6); NEUTROPHILS % (AUTO) 79.1 %; PLT - PLATELET COUNT 198 10^3/uL (130-450); RED BLOOD COUNT 3.93 10^6/uL (4.20-5.40); RED CELL DISTRIBUTION WIDTH 14.4 % (12.0-15.0); WHITE BLOOD COUNT 7.7 x10^3/uL (4.8-10.8)
[2023-02-04] MEDS ORDERED: SODIUM CHLORIDE 0.9% 1,000 ML IV STA (09:01)
[2023-02-04] MEDS ORDERED: HYDROmorphone 1 MG/ML CARPUJECT IVP STA ×3 (09:01→13:53)
[2023-02-04] MEDS ORDERED: ONDANSETRON 4 MG/2 ML VIAL IVP STA (09:01)
[2023-02-04 09:06] LABS: ALBUMIN 3.9 g/dL (3.2-5.5); ALBUMIN/GLOBULIN RATIO 1.4 (1.0-2.2); ALKALINE PHOSPHATASE 133 IU/L (42-121); ALT ALANINE AMINOTRANSFERASE 22 IU/L (10-60); AST ASPARTATE AMINOTRANSFERASE 31 IU/L (10-42); BUN - BLOOD UREA NITROGEN 7 mg/dL (6-20); CALCIUM 8.6 mg/dL (8.5-10.3); CARBON DIOXIDE - CO2 23 mmol/L (21-32); CHLORIDE 104 mmol/L (101-111); CREATININE 0.9 mg/dL (0.6-1.3); ETOH - ETHANOL < 10.0 mg/dL; GFR - MDRD 71 (>89); GLUCOSE 154 mg/dL (74-104); POTASSIUM 2.8 mmol/L (3.5-4.5); SODIUM 138 mmol/L (135-145); TOTAL PROTEIN 6.6 g/dL (6.4-8.9)
[2023-02-04 09:16] LABS: LIPASE 702 U/L (11-82)
[2023-02-04] MEDS ORDERED: KETOROLAC 15 MG/ML VIAL IVP STA (11:18)
--- NOTE | 2023-02-04 12:44 | CT Report ---
PROCEDURE: ABDOMEN/PELVIS W INDICATIONS: pancreatitis/stent removed? CONTRAST: 100ml omni 300 TECHNIQUE: After the administration of IV contrast, 5 mm thick sections acquired from the diaphragms to the symp hysis. 5 mm thick coronal and sagittal reformats were acquired. For radiation dose reduction, the f ollowing was used: automated exposure control, adjustment of mA and/or kV according to patient size. COMPARISON: 11/10/2022 FINDINGS: Image quality: Good Lower chest: Similar small nodule in the lingula. Nonspecific patulous appearance of the distal esoph julio. Solid organs: Subcentimeter liver lesions are too small to characterize, again seen. The gallbladder is unremarkable. There may be sludge. No pathologic biliary or pancreatic ductal dilation. Increase, moderate peripancreatic inflammatory c hanges. No radiopaque stent is identified. No splenomegaly. No adrenal nodules. No hydronephrosis. Vessels and lymph nodes: The main portal vein is patent, however there is narrowing of the distal SMV and splenic vein near the portal confluence. No abdominal aortic aneurysm. No pathologic lymph nodes by size criteria. Bowel and peritoneum: Inflammatory changes surrounding the stomach and duodenum, may be secondary due to pancreatitis. No bowel obstruction. Upper abdominal edema without drainable fluid collection is s een. Small low attenuating lesion at the left paracolic gutter (2/57) again seen. Body wall: Tiny fat-containing umbilical hernia, likely containing some congested omentum. Pelvis: IUD is in place. Prominent adnexal structures may be physiologic. Bones: No acute or suspicious osseous finding. IMPRESSION: Moderate findings of acute interstitial edematous pancreatitis, increased in severity compared to October 2022. Edema surrounding the adjacent bowel and stomach may be secondary to pancreas inflammation. Th ere is narrowing without occlusion of the splenic vein and distal SMV. The arteries are not well eval uated on this study, no gross abnormality. Consider follow-up to evaluate for any developing necrotic parenchyma or drainable fluid collection. No radiopaque stent is identified. Other stable and incidental findings as above. Reviewed by: Lito Berumen MD on 02/04/2023 12:43 PM PDT Approved by: Lito Berumen MD on 02/04/2023 12:43 PM PDT Station ID: [id number]
[2023-02-04 12:45] LABS: BILIRUBIN,URINE NEGATIVE (NEGATIVE); GLUCOSE, URINE (UA) NEGATIVE (NEGATIVE); KETONES,URINE (UA) NEGATIVE (NEGATIVE); LEUKOCYTE ESTERASE, URINE NEGATIVE (NEGATIVE); NITRITE,URINE NEGATIVE (NEGATIVE); OCCULT BLOOD,URINE NEGATIVE (NEGATIVE); PH,URINE 5.5 PH (5.0-7.5); PROTEIN,URINE NEGATIVE (NEGATIVE); UROBILINOGEN,URINE 0.2 (NORMAL) E.U./dL (NORMAL)
[2023-02-04 12:49] LABS: CLARITY,URINE CLEAR (CLEAR); HCG UR QUAL NEGATIVE
[2023-02-04] MEDS ORDERED: METOCLOPRAMIDE 10 MG/2 ML VIAL IVP STA (13:17)
--- NOTE | 2023-02-04 13:54 | ED Physician Documentation ---
PD HPI ABD PAIN - Stated complaint Stated Complaint: ABD PX - Chief complaint Chief Complaint: Abd Pain - History obtained from History obtained from: Patient - Additional information Additional information: Patient is a 37-year-old female presenting for evaluation of upper abdominal pain. She has a history of pancreatitis, alcohol abuse with epigastric and left upper quadrant pain and nausea and vomiting since yesterday. Patient reports having mild nausea yesterday which is worsened this morning and she is not able to keep any oral intake down. She reports this feels similar to when she has h ad pancreatitis in the past. She denies any recent alcohol use. Her GI is Dr. Morel at [facility]. She had an endoscopy 1 month ago which showed gastritis. They were also going to remove her stent but were not able to locate her stent and an x-ray taken after the procedure also did not show a stent in place.Denies hemoptysis. Denies concerns for . 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 HEENT: Tonsil/Adenoidectomy - Present Medications Home Medications: Ambulatory Orders Medication Instructions Recorded Confirmed Acamprosate Calcium 2 tab PO TID 07/01/22 10/04/22 Lipase/Protease/Amylase [Frank Ledbetter 24,000 unit PO TIDWM 07/30/22 10/04/22 24,000 Unit Capsule] Pnv No.95/Ferrous Fum/Folic AC 1 each PO DAILY #30 tablet 08/02/22 10/04/22 [ Caplet] Famotidine [Pepcid] 20 mg PO DAILY #20 tablet 08/08/22 10/04/22 Promethazine [Phenergan] 25 mg PO Q6H PRN #20 tab 08/08/22 10/04/22 DULoxetine [Cymbalta] 30 mg PO DAILY 10/04/22 10/04/22 Escitalopram Oxalate 20 mg PO DAILY 10/04/22 10/04/22 ONDANSETRON ODT Prepack 2 [ZOFRAN 4 mg PO Q6HR PRN 10/04/22 10/04/22 ODT] Omeprazole 40 mg PO DAILY #30 cap 10/04/22 Pantoprazole Sodium 40 mg PO DAILY 10/04/22 10/04/22 Prochlorperazine [Compazine] 5 mg PO Q6HR PRN 10/04/22 10/04/22 Omeprazole 40 mg PO DAILY #30 cap 11/10/22 Ondansetron Odt [Zofran] 4 mg TL Q6H PRN #10 tablet 11/10/22 oxyCODONE [Roxicodone] 5 mg PO Q4-6H PRN #15 tablet 11/10/22 Ondansetron Odt [Zofran] 4 mg TL Q6H PRN #20 tablet 11/30/22 Promethazine Supp [Phenergan Supp] 25 mg MT Q6H PRN #10 supp 11/30/22 oxyCODONE [Roxicodone] 5 mg PO Q6H PRN #20 tablet 11/30/22 Ondansetron Odt [Zofran] 4 mg TL Q6H PRN #10 tablet 12/23/22 oxyCODONE [Roxicodone] 5 mg PO Q4-6H PRN #7 tablet 12/23/22 - Allergies Allergies/Adverse Reactions: Allergies Allergy/AdvReac Type Severity Reaction Status Date / Time No Known Drug Allergies Allergy Verified 02/04/23 08:43 - Social History Does the pt smoke?: Yes Smoking Status: Current every day smoker Does the pt drink ETOH?: Yes Does the pt have substance abuse?: Yes - Immunizations Immunizations are current?: Yes - POLST Patient has POLST: No POLST Status: Full Code Results - Vitals Vitals: Vital Signs - 24 hr 02/04/23 02/04/23 02/04/23 08:37 10:53 12:26 Temperature 36.0 C L Heart Rate 92 86 64 Respiratory 18 20 20 Rate Blood Pressure 119/93 H 120/81 H O2 Saturation 100 97 97 02/04/23 14:07 Temperature Heart Rate 71 Respiratory 20 Rate Blood Pressure 127/102 H O2 Saturation 97 Oxygen O2 Source Room air - Labs Labs: Laboratory Tests 02/04/23 02/04/23 02/04/23 08:46 08:46 08:46 WBC 7.7 RBC 3.93 L Hgb 13.8 Hct 40.5 MCV 103.1 H MCH 35.1 H MCHC 34.1 RDW 14.4 Plt Count 198 MPV 10.7 Neut # (Auto) 6.1 Lymph # (Auto) 1.0 L [place] # (Auto) 0.5 Eos # (Auto) 0.0 Baso # (Auto) 0.0 Absolute Nucleated RBC 0.00 Nucleated RBC % 0.0 Sodium 138 Potassium 2.8 L Chloride 104 Carbon Dioxide 23 Anion Gap 11.0 BUN 7 Creatinine 0.9 Estimated GFR (MDRD) 71 L Glucose 154 H Calcium 8.6 Total Bilirubin 1.0 AST 31 ALT 22 Alkaline Phosphatase 133 H Total Protein 6.6 Albumin 3.9 Globulin 2.7 Albumin/Globulin Ratio 1.4 Triglycerides 124 Cholesterol 131 LDL Cholesterol, Calc 38 VLDL Cholesterol 25 HDL Cholesterol 68 LDL/HDL Ratio 0.6 Cholesterol/HDL Ratio 1.9 Lipase 702 H Urine Color Urine Clarity Urine pH Ur Specific [place] Urine Protein Urine Glucose (UA) Urine Ketones Urine Occult Blood Urine Nitrite Urine Bilirubin Urine Urobilinogen Ur Leukocyte Esterase Ur Microscopic Review Urine Culture Comments Urine HCG, Qual Ethyl Alcohol < 10.0 02/04/23 12:32 WBC RBC Hgb Hct MCV MCH MCHC RDW Plt Count MPV Neut # (Auto) Lymph # (Auto) [place] # (Auto) Eos # (Auto) Baso # (Auto) Absolute Nucleated RBC Nucleated RBC % Sodium Potassium Chloride Carbon Dioxide Anion Gap BUN Creatinine Estimated GFR (MDRD) Glucose Calcium Total Bilirubin AST ALT Alkaline Phosphatase Total Protein Albumin Globulin Albumin/Globulin Ratio Triglycerides Cholesterol LDL Cholesterol, Calc VLDL Cholesterol HDL Cholesterol LDL/HDL Ratio Cholesterol/HDL Ratio Lipase Urine Color YELLOW Urine Clarity CLEAR Urine pH 5.5 Ur Specific [place] 1.015 Urine Protein NEGATIVE Urine Glucose (UA) NEGATIVE Urine Ketones NEGATIVE Urine Occult Blood NEGATIVE Urine Nitrite NEGATIVE Urine Bilirubin NEGATIVE Urine Urobilinogen 0.2 (NORMAL) Ur Leukocyte Esterase NEGATIVE Ur Microscopic Review NOT INDICATED Urine Culture Comments NOT INDICATED Urine HCG, Qual NEGATIVE Ethyl Alcohol PD Medical Decision Making - ED course Complexity details: reviewed results, re-evaluated patient, d/w patient ED course: Patient is a 37-year-old female with a history of pancreatitis presenting for evaluation of upper abdominal pain, nausea and vomiting has upper abdominal tenderness but no rebound or guarding or abdominal symptoms to suggest peritonitis. Labs reviewed with elevated lipase of 720 and potassium of 2.8. Patient reports continued nausea and dry heaving and is unable to tolerate p.o. intake. She was given IV potassium replacement. Multiple doses of antiemetics and pain medications. CT scan was obtained which does show acute inflammation. No signs of a stent. No signs of a pancreatic pseudocyst which patient has a history of it. Discussed options for treatment and patient does not feel that she is able to manage her symptoms at home at this time. Presented to admitting hospitalist who will admit the patient for further management. 13:58 0 D/W Dr. Smith. Departure - Departure Disposition: ED Place in Observation Clinical Impression: Acute on chronic pancreatitis, Hypokalemia Condition: Stable Discharge Date/Time: 02/04/23 14:52
[2023-02-04] MEDS ORDERED: POTASSIUM CHLOR 10 MEQ/100 ML 10 MEQ/100 ML BAG IV SCH (14:00)
[2023-02-04] MEDS ORDERED: SODIUM CHLORIDE FLUSH 0.9% 10 ML SYRINGE IVP PRN (14:23)
[2023-02-04] MEDS ORDERED: ACETAMINOPHEN 325 MG TABLET PO PRN (14:23)
--- NOTE | 2023-02-04 14:29 | HISTORY & PHYSICAL EXAMINATION ---
Chief Complaint - Chief Complaint Chief Complaint: Abdominal pain History of Present Illness - Admitted From Admitted From:: ER - History Obtained From Records Reviewed: [facility], Outpatient EGD History obtained from: Patient, ER Physician, EMR - History of Present Illness HPI Comment/Other: This is a 37-year-old female with a past medical history significant for pancreatitis, history of alcohol abuse, anxiety/depression, gastritis who presents today complaining of abdominal pain as well as nausea and vomiting. She states her symptoms began yesterday with a mild stomach ache and some nausea. This progressed on the day to the point where she had significant abdominal pain throughout her abdomen as well as in the epigastric region. She also had nausea and emesis and had difficulty keeping down food. This felt similar to her prior episodes of pancreatitis. She has felt hot and cold as well as dizzy and lightheaded. No chest pain or shortness of breath. No dysuria or urgency. She denies any recent alcohol use and reports being sober from alcohol. She does follow with Dr. Bautista of GI at [facility]. Underwent endoscopy last month for stent removal but it was noted that the stent was not present. The patient states she does take Creon with meals. She reports no diarrhea. She reports being under some stress over the past few days and she thinks this may be contributing to her pancreatitis. History - Past Medical History Cardiovascular: reports: None Respiratory: reports: None Neuro: reports: Headaches Endocrine/Autoimmune: reports: None GI: reports: GERD, Ulcers, Pancreatitis, Cholelithiasis PASTE MAKER: reports: None : reports: Kidney stones HEENT: reports: None Psych: reports: Depression, Anxiety, Panic attacks Musculoskeletal: reports: None Derm: reports: None MRSA Hx?: No - Past Surgical History General: reports: EGD /PASTE MAKER: reports: Other HEENT: reports: Tonsil/Adenoidectomy - Family & Social History Family History: Mother: Alive and Well Family History Comment/Other: Her mother has history of thyroid disease. Living Situation: With family Social History Notes: She previously drank alcohol on a consistent basis but now denies any use. She smokes a couple cigarettes a day and has been doing so for the past 16 years. She lives with 2 daughters, aged 7 & 10, and with her mother. 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 - Substance History Use: Uses substance without health or social issues: Tobacco - POLST Patient has POLST: No POLST Status: Full Code Meds/Allgy - Home Medications Home Medications: Ambulatory Orders Medication Instructions Recorded Confirmed Acamprosate Calcium 2 tab PO TID 07/01/22 10/04/22 Lipase/Protease/Amylase [Barbraon Dr 24,000 unit PO TIDWM 07/30/22 10/04/22 24,000 Unit Capsule] Pnv No.95/Ferrous Fum/Folic AC 1 each PO DAILY #30 tablet 08/02/22 10/04/22 [ Caplet] Famotidine [Pepcid] 20 mg PO DAILY #20 tablet 08/08/22 10/04/22 Promethazine [Phenergan] 25 mg PO Q6H PRN #20 tab 08/08/22 10/04/22 DULoxetine [Cymbalta] 30 mg PO DAILY 10/04/22 10/04/22 Escitalopram Oxalate 20 mg PO DAILY 10/04/22 10/04/22 ONDANSETRON ODT Prepack 2 [ZOFRAN 4 mg PO Q6HR PRN 10/04/22 10/04/22 ODT] Omeprazole 40 mg PO DAILY #30 cap 10/04/22 Pantoprazole Sodium 40 mg PO DAILY 10/04/22 10/04/22 Prochlorperazine [Compazine] 5 mg PO Q6HR PRN 10/04/22 10/04/22 Omeprazole 40 mg PO DAILY #30 cap 11/10/22 Ondansetron Odt [Zofran] 4 mg TL Q6H PRN #10 tablet 11/10/22 oxyCODONE [Roxicodone] 5 mg PO Q4-6H PRN #15 tablet 11/10/22 Ondansetron Odt [Zofran] 4 mg TL Q6H PRN #20 tablet 11/30/22 Promethazine Supp [Phenergan Supp] 25 mg DE Q6H PRN #10 supp 11/30/22 oxyCODONE [Roxicodone] 5 mg PO Q6H PRN #20 tablet 11/30/22 Ondansetron Odt [Zofran] 4 mg TL Q6H PRN #10 tablet 12/23/22 oxyCODONE [Roxicodone] 5 mg PO Q4-6H PRN #7 tablet 12/23/22 - Allergies Allergies/Adverse Reactions: Allergies Allergy/AdvReac Type Severity Reaction Status Date / Time No Known Drug Allergies Allergy Verified 02/04/23 08:43 Review of Systems - Constitutional Constitutional: reports: Fatigue, Chills, Malaise, Poor appetite. denies: Fever - Ears, Nose & Throat Ears, Nose & Throat: denies: Nasal discharge - Cardiovascular Cariovascular: reports: Lightheadedness. denies: Chest pain, Exertional dyspnea, Decr. exercise tolerance - Respiratory Respiratory: denies: SOB at rest, SOB with exertion - Gastrointestinal Gastrointestinal: reports: Abdominal pain, Nausea, Vomiting, Reflux/heartburn, Poor appetite. denies: Diarrhea, Change in bowel habits - Genitourinary Genitourinary: denies: Dysuria, Frequency, Urgency - Integumentary Integumentary: denies: Rash - Neurological Neurological: denies: General weakness, Focal weakness - All Other Systems All Other Systems: reports: Reviewed and negative Prior Level of Functionality: She is independent with her ADLs. Exam - Vital Signs Reviewed Vital Signs: Yes Vital Signs: Vital Signs x48h Temp Pulse Resp BP Pulse Ox 02/04/23 14:07 71 20 127/102 H 97 02/04/23 12:26 64 20 97 02/04/23 10:53 86 20 120/81 H 97 02/04/23 08:37 36.0 C L 92 18 119/93 H 100 - Physical Exam General Appearance: positive: Alert, Mild distress Eyes Bilateral: positive: Normal inspection, Conjunctivae nml ENT: positive: ENT inspection nml, Dry mucous membranes Neck: positive: Nml inspection Respiratory: positive: No respiratory distress. negative: Wheezes, Rales Cardiovascular: positive: Regular rate & rhythm, No murmur. negative: Tachycardia Abdomen: positive: No distention, Tenderness (diffuse and epigastric). negative: Guarding, Rebound Skin: positive: Warm, Dry Extremities: positive: No pedal edema Neurologic/Psychiatric: positive: Motor nml. negative: Disoriented to person, Disoriented to place Conclusion/Plan - Problem List (1) Recurrent pancreatitis Conclusion/Plan: She has history of recurrent pancreatitis. In the past this has been attributed to alcohol although she currently denies any alcohol use and her EtOH level is undetectable. CT is consistent with pancreatitis and her lipase is elevated in the 700s. She follows with GI at [facility] and underwent EGD recently for stent removal but this was not present when they went for the EGD and imaging today does not reveal any presence of a stent. The cause of her acute episode is not clear. Her LFTs were within normal limits so doubt gallstone pancreatitis. Prior lipid panel was checked and triglycerides were 180. We will continue her on IV hydration with lactated Ringer's at 150 mL an hour. Zofran and Compazine as needed for nausea. We will start clear liquid diet as tolerated. Pain control with Dilaudid IV and Toradol IV as needed. Trend lipase and amylase. Check lipid panel. I did speak with Dr. Richter of the emergency department discussed patient's presentation, lab and imaging findings, treatment received, and plan for hospitalization. I did review the EGD from [facility] back in December. (2) Hypokalemia Conclusion/Plan: Her potassium is decreased at 2.8. This is likely due to GI losses. We will supplement this and check a magnesium to ensure there is no associated hypomagnesemia. (3) Gastritis Conclusion/Plan: We will continue her home Pepcid and consider PPI. (4) Depression with anxiety Conclusion/Plan: We will continue her home escitalopram. - Lab Results Lab results reviewed: Yes Fish Bones: 02/04/23 08:46 02/04/23 08:46 - Diagnostic Imaging Results Diagnostic Imaging Results: positive: Final report reviewed Core Measures - Anticipated LOS I expect patient to be DC'd or transferred within 96 hours.: Yes - Issues Hospital Issues and Management Plan: 37-year-old female with a history of pancreatitis presents today with abdominal pain as well as nausea and vomiting found to have acute pancreatitis. She will be admitted for further management. - DVT/VTE - Prophylaxis VTE/DVT Device ordered at admit?: Yes VTE/DVT Prophylaxis med ordered at admit?: Yes
[2023-02-04 15:07] LABS: CHOL/HDL RATIO 1.9 (<4.4); CHOLESTEROL 131 mg/dL; HDL CHOLESTEROL 68 mg/dL; LDL CHOLESTEROL,CALCULATED 38 mg/dL; LDL/HDL RATIO 0.6 (<4.4); TRIGLYCERIDES 124 mg/dL (48-352); VLDL CHOLESTEROL 25 mg/dL
[2023-02-04] MEDS: SODIUM CHLORIDE FLUSH 0.9% 10 ML SYRINGE IVP SCH (15:38)
[2023-02-04] MEDS: ONDANSETRON 4 MG/2 ML VIAL IVP PRN (15:38)
[2023-02-04] MEDS: LACTATED RINGERS 1,000 ML IV SCH ×2 (15:39→21:50)
[2023-02-04] MEDS: POTASSIUM CHLOR 10 MEQ/100 ML 10 MEQ/100 ML BAG IV SCH ×5 (15:39→20:45)
[2023-02-04] MEDS: HYDROmorphone 0.5 MG/0.5 ML SYRINGE IVP PRN ×3 (15:46→20:46)
--- NOTE | 2023-02-04 16:43 | PHARMACY PROGRESS NOTE ---
- Best Possible Medication History Admit Date and Time: 02/04/23 1423 Processed by: Pharmacy Medication History completed: Yes Patient Interview: Completed Secondary Source(s): Other family member As the person ultimately responsible for medication therapy, providers are able to order a medication from an existing home medication list in [facility] via the "Reconcile Routine" prior to Confirmation of that medication by behavior support specialist. Such practice is discouraged except when the physician, in their clinical judgment, deems that a medical need exists for a medication without regard to previous use.
[2023-02-04] MEDS: LIPASE/PROTEASE/AMYLASE CAPSULE PO SCH (17:13)
[2023-02-04] MEDS: HYDROcod/ACETAM 5/325 MG TABLET PO PRN ×2 (17:13→22:18)
[2023-02-04 17:42] LABS: CALCIUM 8.2 mg/dL (8.5-10.3); CREATININE 0.7 mg/dL (0.6-1.3); MAGNESIUM 1.1 mg/dL (1.7-2.3); POTASSIUM 3.3 mmol/L (3.5-4.5)
[2023-02-04] MEDS ORDERED: MAGNESIUM SULFATE 2 GRAM 2 GM/50 ML BAG IV ONE (17:45)
[2023-02-04] MEDS: MAGNESIUM OXIDE 400 MG TABLET PO SCH (18:12)
[2023-02-04] MEDS: CALCIUM CARBONATE CHEW 500 MG TABLET PO PRN (18:58)
[2023-02-04] MEDS: PROCHLORPERAZINE 10 MG/2 ML VIAL IVP PRN (19:38)
[2023-02-04] MEDS ORDERED: iohexoL-300 100 ML VIAL IVP ONE (21:25)
[2023-02-05] MEDS: HYDROmorphone 0.5 MG/0.5 ML SYRINGE IVP PRN ×3 (00:05→08:45)
[2023-02-05] MEDS: SODIUM CHLORIDE FLUSH 0.9% 10 ML SYRINGE IVP SCH ×3 (00:06→16:55)
[2023-02-05] MEDS: ONDANSETRON 4 MG/2 ML VIAL IVP PRN ×3 (00:11→13:11)
[2023-02-05] MEDS: HYDROcod/ACETAM 5/325 MG TABLET PO PRN ×2 (03:04→08:34)
[2023-02-05] MEDS: LACTATED RINGERS 1,000 ML IV SCH ×3 (04:30→18:07)
[2023-02-05 06:01] LABS: MEAN CORPUSCULAR VOLUME 106.2 fL (81.0-99.0)
[2023-02-05 06:09] LABS: BASOPHILS % (AUTO) 0.2 %; HCT - HEMATOCRIT 40.9 % (37.0-47.0); HGB - HEMOGLOBIN 13.6 g/dL (12.0-16.0); LYMPHOCYTES # (AUTO) 0.9 10^3/uL (1.5-3.5); LYMPHOCYTES % (AUTO) 8.7 %; MEAN CORPUSCULAR HEMOGLOBIN 35.3 pg (27.0-31.0); MEAN CORPUSCULAR HGB CONC 33.3 g/dL (32.0-36.0); MEAN PLATELET VOLUME 11.4 fL (7.9-10.8); MONOCYTES % (AUTO) 8.8 %; NEUTROPHILS # (AUTO) 8.8 10^3/uL (1.5-6.6); PLT - PLATELET COUNT 145 10^3/uL (130-450); RED BLOOD COUNT 3.85 10^6/uL (4.20-5.40); RED CELL DISTRIBUTION WIDTH 14.7 % (12.0-15.0); WHITE BLOOD COUNT 10.8 x10^3/uL (4.8-10.8)
[2023-02-05 06:10] LABS: CALCIUM 8.7 mg/dL (8.5-10.3); CREATININE 0.6 mg/dL (0.6-1.3); MAGNESIUM 1.4 mg/dL (1.7-2.3); POTASSIUM 3.8 mmol/L (3.5-4.5)
[2023-02-05] MEDS: LIPASE/PROTEASE/AMYLASE CAPSULE PO SCH ×3 (08:34→16:55)
[2023-02-05] MEDS: MAGNESIUM OXIDE 400 MG TABLET PO SCH (08:34)
[2023-02-05] MEDS: FAMOTIDINE 20 MG TABLET PO SCH (08:34)
[2023-02-05] MEDS: ENOXAPARIN 40 MG/0.4 ML SYRINGE SUBQ SCH (08:34)
[2023-02-05] MEDS: ESCITALOPRAM 10 MG TABLET PO SCH (08:34)
[2023-02-05] MEDS ORDERED: ESCITALOPRAM OXALATE 20 MG PO SCH (09:00)
[2023-02-05 09:50] LABS: MUDS CUTOFF CONCENTRATIONS CUTOFF CONC BELOW:
[2023-02-05 10:05] LABS: AMPHETAMINE SCREEN,URINE NEGATIVE (NEGATIVE); BARBITURATE SCREEN,UR NEGATIVE (NEGATIVE); BENZODIAZEPINES SCREEN, URINE NEGATIVE (NEGATIVE); COCAINE SCREEN URINE NEGATIVE (NEGATIVE); METHADONE SCREEN, URINE NEGATIVE (NEGATIVE); METHAMPHETAMINES SCREEN, URINE NEGATIVE (NEGATIVE); OPIATE SCREEN, URINE POSITIVE (NEGATIVE); OXYCODONE SCREEN, URINE POSITIVE (NEGATIVE); PROPOXYPHENE SCREEN, URINE NEGATIVE (NEGATIVE); THC CANNABINOID SCREEN, URINE POSITIVE (NEGATIVE); TRICYCLIC ANTIDEPRESSANT,URINE NEGATIVE (NEGATIVE)
[2023-02-05 11:26] LABS: ESTIMATED AVERAGE GLUCOSE 111 mg/dL (70-100); HEMOGLOBIN A1c% 5.5 % (4.27-6.07)
[2023-02-05] MEDS: HYDROmorphone 2 MG/ML VIAL IVP PRN ×5 (13:12→23:07)
[2023-02-05] MEDS: PROCHLORPERAZINE 10 MG/2 ML VIAL IVP PRN (15:50)
--- NOTE | 2023-02-05 19:10 | PROVIDER PROGRESS NOTE ---
Progress Note February 05, 2023 7 PM She has had abdominal pain all day long. Has not wanted to eat. But vital signs of been stable. No fever. Slightly tachycardic at 106 and as high as 118. No emesis. She began drinking about a month and a half ago. But has not had a drink in a month. Active Medications Acetaminophen (Acetaminophen 325 Mg Tablet) 650 mg PO Q4HR PRN PRN Reason: Pain 1 to 4, or Fever Hydrocodone Bitart/Acetaminophen (Hydrocod/Acetam 5/325 Mg Tablet) 1 tab PO Q4HR PRN PRN Reason: Pain 5 to 7 Last Admin: 02/05/23 08:34 Dose: 1 tab Lipase/Protease/Amylase (Lipase/Protease/Amylase Capsule) 1 cap PO TIDWM [facility] Last Admin: 02/05/23 16:55 Dose: 1 cap Calcium Carbonate/Glycine (Calcium Carbonate Chew 500 Mg Tablet) 500 mg PO BID PRN PRN Reason: Heartburn Last Admin: 02/04/23 18:58 Dose: 500 mg Enoxaparin Sodium (Enoxaparin 40 Mg/0.4 Ml Syringe) 40 mg SUBQ DAILY [facility] Last Admin: 02/05/23 08:34 Dose: 40 mg Escitalopram Oxalate (Escitalopram 10 Mg Tablet) 20 mg PO DAILY [facility] Last Admin: 02/05/23 08:34 Dose: 20 mg Famotidine (Famotidine 20 Mg Tablet) 20 mg PO DAILY [facility] Last Admin: 02/05/23 08:34 Dose: 20 mg Hydromorphone HCl (Hydromorphone 2 Mg/Ml Vial) 2 mg IVP Q2H PRN PRN Reason: Pain 8 to 10 Last Admin: 02/05/23 18:04 Dose: 2 mg Lactated Ringer's (Lr) 1,000 mls @ 150 mls/hr IV .Q6H40M [facility] Last Admin: 02/05/23 18:07 Dose: 150 mls/hr Magnesium Oxide (Magnesium Oxide 400 Mg Tablet) 400 mg PO DAILYWM [facility] Last Admin: 02/05/23 08:34 Dose: 400 mg Ondansetron HCl (Ondansetron 4 Mg/2 Ml Vial) 4 mg IVP Q6HR PRN PRN Reason: Nausea / Vomiting Last Admin: 02/05/23 13:11 Dose: 4 mg Multivit/Folic Acid/Iron ( Vitamin Tablet) 1 tab PO DAILYWM [facility] Prochlorperazine Edisylate (Prochlorperazine 10 Mg/2 Ml Vial) 10 mg IVP Q6HR PRN PRN Reason: Nausea / Vomiting Last Admin: 02/05/23 15:50 Dose: 10 mg Sodium Chloride (Sodium Chloride Flush 0.9% 10 Ml Syringe) 10 ml IVP PRN PRN PRN Reason: NEEDED PER PROVIDER ORDERS Sodium Chloride (Sodium Chloride Flush 0.9% 10 Ml Syringe) 10 ml IVP 0100,0900,1700 [facility] Last Admin: 02/05/23 16:55 Dose: Not Given Lipase/Protease/Amylase [Frank Ledbetter 24,000 Unit Capsule] 24,000 unit PO TIDWM 07/30/22 Escitalopram Oxalate 20 mg PO DAILY 10/04/22 Prochlorperazine [Compazine] 5 mg PO Q6HR PRN 10/04/22 Acetaminophen [Tylenol] 325 mg PO Q6H PRN 02/04/23 Ibuprofen 200 mg PO Q8H PRN 02/04/23 Mecobalamin [B-12] 1 tab PO DAILY 02/04/23 Exam: Temperature 36.4, heart rate 106, blood pressure 134/92, respirations 20, 94% on room air Pleasant, alert, moderately overweight white female that looks stated age. Mild distress because of abdominal pain but not severe and able to carry on a complete conversation. When she is upset, in the past, there have been lots of tears. Today affect is controlled, cooperative, alert Lungs are clear to auscultation and percussion Regular rate and rhythm that is becoming tachycardic over the course of the day Abdomen is tender in the epigastrium and left upper quadrant but no rebound or guarding. No masses palpable. Hypoactive bowel sounds. Extremities are without edema Lab: Toxicology screen is positive for opioids, oxycodone, cannabinoids. White cell count is normal. Hemoglobin is normal at 13.6. Platelets 145 Sodium 132. She was admitted at 138 so has been slowly coming down. Potassium is normal at 3.8. For the last 2 days she has required supplementation antedates normal BUN 6, creatinine 0.6, fasting glucose 140, A1c 5.5%. Amylase is 122, lipase has come down to 368 from 702 Folate is 9.1 Repeat lipid panel shows triglycerides of 124, cholesterol 131. Conclusion/Plan - Problem List (1) Recurrent pancreatitis Conclusion/Plan: She has history of recurrent pancreatitis. In the past this has been attributed to alcohol although she currently denies any alcohol recent use (last use 1.5 months ago) and her EtOH level is undetectable. CT is consistent with pancreatitis and her lipase is elevated in the 700s. It has come down today with IVF and bowel rest. She follows with GI at [facility] and underwent EGD recently for stent removal but this was not present when they went for the EGD and imaging today does not reveal any presence of a stent. The cause of her acute episode is not clear. Her LFTs were within normal limits so doubt gallstone pancreatitis. Prior lipid panel was checked and triglycerides were 180. Repeat lipids do not show any hypertriglyceridemia so this is not the cause of her pancreatitis. She was started on a clear diet but really does not have any appetite this morning or this afternoon. I will continue to control symptoms and support her with IV hydration with lactated Ringer's at 150 mL an hour. Zofran and Compazine as needed for nausea. Pain control with Dilaudid IV and Toradol IV as needed. Trend lipase and amylase. Check lipid panel. Continue clear liquid diet. I will not advance until pain is better (2) Hypokalemia Conclusion/Plan: Her potassium is decreased at 2.8. This is likely due to GI losses. She was supplemented on admission, and I will supplement her again today since magnesium is 1.4. (3) Gastritis Conclusion/Plan: We will continue her home Pepcid and consider PPI. (4) Depression with anxiety Conclusion/Plan: We will continue her home escitalopram.
[2023-02-06] MEDS: SODIUM CHLORIDE FLUSH 0.9% 10 ML SYRINGE IVP SCH ×3 (01:04→17:19)
[2023-02-06] MEDS: LACTATED RINGERS 1,000 ML IV SCH ×4 (01:04→21:59)
[2023-02-06] MEDS: HYDROmorphone 2 MG/ML VIAL IVP PRN ×6 (02:10→17:19)
[2023-02-06] MEDS: PROCHLORPERAZINE 10 MG/2 ML VIAL IVP PRN (02:11)
[2023-02-06 05:34] LABS: BASOPHILS % (AUTO) 0.2 %; EOSINOPHILS % (AUTO) 0.3 %; HCT - HEMATOCRIT 34.8 % (37.0-47.0); HGB - HEMOGLOBIN 11.3 g/dL (12.0-16.0); LYMPHOCYTES # (AUTO) 0.8 10^3/uL (1.5-3.5); LYMPHOCYTES % (AUTO) 7.1 %; MEAN CORPUSCULAR HEMOGLOBIN 35.2 pg (27.0-31.0); MEAN CORPUSCULAR HGB CONC 32.5 g/dL (32.0-36.0); MEAN CORPUSCULAR VOLUME 108.4 fL (81.0-99.0); MEAN PLATELET VOLUME 10.6 fL (7.9-10.8); MONOCYTES # (AUTO) 1.3 10^3/uL (0.0-1.0); MONOCYTES % (AUTO) 11.4 %; NEUTROPHILS # (AUTO) 9.1 10^3/uL (1.5-6.6); NEUTROPHILS % (AUTO) 80.5 %; PLT - PLATELET COUNT 122 10^3/uL (130-450); RED BLOOD COUNT 3.21 10^6/uL (4.20-5.40); RED CELL DISTRIBUTION WIDTH 14.6 % (12.0-15.0); WHITE BLOOD COUNT 11.3 x10^3/uL (4.8-10.8)
[2023-02-06 05:52] LABS: CALCIUM 8.3 mg/dL (8.5-10.3); CREATININE 0.5 mg/dL (0.6-1.3); POTASSIUM 4.2 mmol/L (3.5-4.5)
[2023-02-06] MEDS: MAGNESIUM OXIDE 400 MG TABLET PO SCH (08:05)
[2023-02-06] MEDS: ESCITALOPRAM 10 MG TABLET PO SCH (08:05)
[2023-02-06] MEDS: LIPASE/PROTEASE/AMYLASE CAPSULE PO SCH ×3 (08:05→17:14)
[2023-02-06] MEDS: PRENATAL VITAMIN TABLET PO SCH (08:06)
[2023-02-06] MEDS: FAMOTIDINE 20 MG TABLET PO SCH (08:06)
[2023-02-06] MEDS: ONDANSETRON 4 MG/2 ML VIAL IVP PRN (08:06)
[2023-02-06] MEDS: ENOXAPARIN 40 MG/0.4 ML SYRINGE SUBQ SCH (08:07)
[2023-02-06] MEDS: HYDROcod/ACETAM 5/325 MG TABLET PO PRN ×3 (15:03→23:57)
--- NOTE | 2023-02-06 16:18 | PROVIDER PROGRESS NOTE ---
Subjective - Prog Note Date Prog Note Date: 02/06/23 Prog Note Time: 16:15 - Subjective Subjective: This morning she was so somnolent that my speaking to her and shaking her shoulder only resulted in her eyes opening and then she went right back to sleep. I then tried about an hour and a half later and she was more responsive but still asleep, snoring when I went in. This afternoon she is much more awake, alert. Pharmacy and I discussed that she had gotten 20 mg of Dilaudid between yesterday at 1:00 in the afternoon and 1:00 in the afternoon today. She had also gotten 5 tablets of hydrocodone between the and the . She tells me that her pain is a 7 out of a 10. She really does not have an appetite. I did advance her to a low-fat diet and she is just not been very hungry. Still has pain in the left upper quadrant left flank area. Worse with movement. But no nausea, vomiting. No fever, no chills. No shortness of breath no chest pain. Current Medications - Current Medications Current Medications: Active Medications Acetaminophen (Acetaminophen 325 Mg Tablet) 650 mg PO Q4HR PRN PRN Reason: Pain 1 to 4, or Fever Hydrocodone Bitart/Acetaminophen (Hydrocod/Acetam 5/325 Mg Tablet) 1 tab PO Q4HR PRN PRN Reason: Pain 5 to 7 Last Admin: 02/06/23 15:03 Dose: 1 tab Lipase/Protease/Amylase (Lipase/Protease/Amylase Capsule) 1 cap PO TIDWM [facility] Last Admin: 02/06/23 13:35 Dose: 1 cap Calcium Carbonate/Glycine (Calcium Carbonate Chew 500 Mg Tablet) 500 mg PO BID PRN PRN Reason: Heartburn Last Admin: 02/04/23 18:58 Dose: 500 mg Enoxaparin Sodium (Enoxaparin 40 Mg/0.4 Ml Syringe) 40 mg SUBQ DAILY [facility] Last Admin: 02/06/23 08:07 Dose: 40 mg Escitalopram Oxalate (Escitalopram 10 Mg Tablet) 20 mg PO DAILY [facility] Last Admin: 02/06/23 08:05 Dose: 20 mg Famotidine (Famotidine 20 Mg Tablet) 20 mg PO DAILY [facility] Last Admin: 02/06/23 08:06 Dose: 20 mg Hydromorphone HCl (Hydromorphone 2 Mg/Ml Vial) 2 mg IVP Q2H PRN PRN Reason: Pain 8 to 10 Last Admin: 02/06/23 13:35 Dose: 2 mg Lactated Ringer's (Lr) 1,000 mls @ 150 mls/hr IV .Q6H40M [facility] Last Admin: 02/06/23 15:03 Dose: 150 mls/hr Magnesium Oxide (Magnesium Oxide 400 Mg Tablet) 400 mg PO DAILYWM [facility] Last Admin: 02/06/23 08:05 Dose: 400 mg Ondansetron HCl (Ondansetron 4 Mg/2 Ml Vial) 4 mg IVP Q6HR PRN PRN Reason: Nausea / Vomiting Last Admin: 02/06/23 08:06 Dose: 4 mg Multivit/Folic Acid/Iron ( Vitamin Tablet) 1 tab PO DAILYWM [facility] Last Admin: 02/06/23 08:06 Dose: 1 tab Prochlorperazine Edisylate (Prochlorperazine 10 Mg/2 Ml Vial) 10 mg IVP Q6HR PRN PRN Reason: Nausea / Vomiting Last Admin: 02/06/23 02:11 Dose: 10 mg Sodium Chloride (Sodium Chloride Flush 0.9% 10 Ml Syringe) 10 ml IVP PRN PRN PRN Reason: NEEDED PER PROVIDER ORDERS Last Admin: 02/05/23 20:35 Dose: 10 ml Sodium Chloride (Sodium Chloride Flush 0.9% 10 Ml Syringe) 10 ml IVP 0100,0900,1700 [facility] Last Admin: 02/06/23 08:14 Dose: 10 ml Lipase/Protease/Amylase [Creon Dr 24,000 Unit Capsule] 24,000 unit PO TIDWM 07/30/22 Escitalopram Oxalate 20 mg PO DAILY 10/04/22 Prochlorperazine [Compazine] 5 mg PO Q6HR PRN 10/04/22 Acetaminophen [Tylenol] 325 mg PO Q6H PRN 02/04/23 Ibuprofen 200 mg PO Q8H PRN 02/04/23 Mecobalamin [B-12] 1 tab PO DAILY 02/04/23 Objective - Vital Signs/Intake & Output Reviewed Vital Signs: Yes Vital Signs: Vital Signs x48h Temp Pulse Resp BP Pulse Ox 02/06/23 15:41 36.5 C 103 H 20 119/83 H 93 02/06/23 12:36 111 H 14 128/91 H 90 L Intake & Output: Intake & Output 02/03/23 02/04/23 02/05/23 02/06/23 23:59 23:59 23:59 23:59 Intake Total 2777.5 4650.0 3217.5 Balance 2777.5 4650.0 3217.5 - Objective General Appearance: positive: Alert, Moderate distress (From her left flank pain. Steady and unremitting at 7 out of a 10 but no tachypnea, tachycardia, no grimacing, no agitation and is lying flat in bed, pretty still) Eyes Bilateral: positive: PERRL, EOMI ENT: positive: No signs of dehydration Neck: positive: No JVD. negative: Stiff neck Respiratory: positive: No respiratory distress. negative: Wheezes, Rales, Rhonchi Cardiovascular: positive: Regular rate & rhythm Abdomen: positive: No organomegaly, Nml bowel sounds, No distention, Tenderness (Mild in the epigastrium, worse in the left upper quadrant, and much worse in the left mid axillary line underneath her rib cage.) Skin: positive: Warm, Dry Extremities: positive: Full ROM, No pedal edema Neurologic/Psychiatric: positive: Oriented x3, CN's nml (2-12), Motor nml - Lab Results Fish Bones: 02/06/23 05:25 02/06/23 05:25 Other Labs: Lab Results x24hrs 02/06/23 02/06/23 Range/Units 05:25 05:25 WBC 11.3 H (4.8-10.8) x10^3/uL RBC 3.21 L (4.20-5.40) 10^6/uL Hgb 11.3 L (12.0-16.0) g/dL Hct 34.8 L (37.0-47.0) % MCV 108.4 H (81.0-99.0) fL MCH 35.2 H (27.0-31.0) pg MCHC 32.5 (32.0-36.0) g/dL RDW 14.6 (12.0-15.0) % Plt Count 122 L (130-450) 10^3/uL MPV 10.6 (7.9-10.8) fL Neut # (Auto) 9.1 H (1.5-6.6) 10^3/uL Lymph # (Auto) 0.8 L (1.5-3.5) 10^3/uL Dorado # (Auto) 1.3 H (0.0-1.0) 10^3/uL Eos # (Auto) 0.0 (0.0-0.7) 10^3/uL Baso # (Auto) 0.0 (0.0-0.1) 10^3/uL Absolute Nucleated RBC 0.00 x10^3/uL Nucleated RBC % 0.0 /100WBC Sodium 131 L (135-145) mmol/L Potassium 4.2 (3.5-4.5) mmol/L Chloride 101 (101-111) mmol/L Carbon Dioxide 27 (21-32) mmol/L Anion Gap 3.0 L (6-13) BUN 8 (6-20) mg/dL Creatinine 0.5 L (0.6-1.3) mg/dL Estimated GFR (MDRD) 140 (>89) Glucose 111 H (74-104) mg/dL Calcium 8.3 L (8.5-10.3) mg/dL Amylase 53 (28-100) U/L Lipase 127 H (11-82) U/L Assessment/Plan - Problem List (1) Recurrent pancreatitis Impression: She has history of recurrent pancreatitis. Or acute on chronic pancreatitis. For most of over a year she had a pancreatic pseudocyst that was obstructing and pushing along her duodenum. I am not seeing this on imaging now something that must of been what was drained. In the past Her pancreatitis has been attributed to alcohol although she currently denies any alcohol use and her EtOH level is undetectable. Social work shared with me that the patient did relapse a month and a half ago for about [address] is consistent with pancreatitis and her lipase is elevated in the 700s. She follows with GI at [facility] and underwent EGD recently for stent removal but this was not present when they went for the EGD and imaging today does not reveal any presence of a stent. The cause of her acute episode is not clear. Her LFTs were within normal limits so doubt gallstone pancreatitis. Prior lipid panel was checked and triglycerides were 180. With this admissions lipid panel they continue to be low. Our treatment has consisted of IV hydration, Zofran, Compazine. She has been on a clear liquid diet with limited intake. I warned her that she is getting way too much Dilaudid and was very somnolent this morning. Lipase and amylase are now normal. Patient states that she will try and avoid taking the Dilaudid. I will advance diet to a low-fat diet. (2) Hypokalemia/Hypomagnesemia Conclusion/Plan: Her potassium is decreased at 2.8. This is likely due to GI losses. Potassium has normalized with supplementation. Magnesium also required supplementation. Plan: Check potassium and magnesium tomorrow (3) Gastritis Conclusion/Plan: We will continue her home Pepcid and consider PPI. (4) Depression with anxiety Conclusion/Plan: We will continue her home escitalopram.
[2023-02-06] MEDS: NICOTINE 14 MG PATCH TOP SCH (19:48)
[2023-02-07] MEDS: SODIUM CHLORIDE FLUSH 0.9% 10 ML SYRINGE IVP SCH ×3 (00:01→16:19)
[2023-02-07] MEDS: HYDROmorphone 2 MG/ML VIAL IVP PRN ×3 (02:51→09:30)
[2023-02-07] MEDS: LACTATED RINGERS 1,000 ML IV SCH ×2 (04:13→12:46)
[2023-02-07] MEDS: HYDROcod/ACETAM 5/325 MG TABLET PO PRN (04:46)
[2023-02-07 05:31] LABS: BASOPHILS % (AUTO) 0.3 %; EOSINOPHILS # (AUTO) 0.1 10^3/uL (0.0-0.7); EOSINOPHILS % (AUTO) 0.8 %; HCT - HEMATOCRIT 32.7 % (37.0-47.0); HGB - HEMOGLOBIN 10.8 g/dL (12.0-16.0); LYMPHOCYTES # (AUTO) 1.1 10^3/uL (1.5-3.5); LYMPHOCYTES % (AUTO) 13.5 %; MEAN CORPUSCULAR HEMOGLOBIN 35.4 pg (27.0-31.0); MEAN CORPUSCULAR VOLUME 107.2 fL (81.0-99.0); MEAN PLATELET VOLUME 11.1 fL (7.9-10.8); MONOCYTES # (AUTO) 0.8 10^3/uL (0.0-1.0); MONOCYTES % (AUTO) 10.5 %; NEUTROPHILS # (AUTO) 5.8 10^3/uL (1.5-6.6); NEUTROPHILS % (AUTO) 74.5 %; PLT - PLATELET COUNT 121 10^3/uL (130-450); RED BLOOD COUNT 3.05 10^6/uL (4.20-5.40); RED CELL DISTRIBUTION WIDTH 14.5 % (12.0-15.0); WHITE BLOOD COUNT 7.8 x10^3/uL (4.8-10.8)
[2023-02-07 05:43] LABS: CALCIUM 8.2 mg/dL (8.5-10.3); CREATININE 0.5 mg/dL (0.6-1.3); POTASSIUM 3.3 mmol/L (3.5-4.5)
[2023-02-07] MEDS ORDERED: POTASSIUM CHLORIDE INJ 40 MEQ in SODIUM CHLORIDE 0.9% 500 ML IV ONE (07:33)
[2023-02-07] MEDS: LIPASE/PROTEASE/AMYLASE CAPSULE PO SCH ×3 (08:04→16:19)
[2023-02-07] MEDS: PRENATAL VITAMIN TABLET PO SCH (08:04)
[2023-02-07] MEDS: ESCITALOPRAM 10 MG TABLET PO SCH (08:04)
[2023-02-07] MEDS: ENOXAPARIN 40 MG/0.4 ML SYRINGE SUBQ SCH (08:04)
[2023-02-07] MEDS: FAMOTIDINE 20 MG TABLET PO SCH (08:04)
[2023-02-07] MEDS: NICOTINE 14 MG PATCH TOP SCH (08:04)
[2023-02-07] MEDS: MAGNESIUM OXIDE 400 MG TABLET PO SCH (08:04)
[2023-02-07] MEDS ORDERED: POTASSIUM CHLORIDE 20 MEQ TABLET PO ONE (08:16)
[2023-02-07] MEDS: ONDANSETRON 4 MG/2 ML VIAL IVP PRN (08:29)
[2023-02-07] MEDS: oxyCODONE 5 MG TABLET PO PRN ×2 (12:45→17:34)
[2023-02-07] MEDS: PROCHLORPERAZINE 10 MG/2 ML VIAL IVP PRN (13:55)
[2023-02-07] MEDS ORDERED: PANTOPRAZOLE 40 MG TABLET PO SCH (14:00)
--- NOTE | 2023-02-07 14:03 | PROVIDER PROGRESS NOTE ---
Assessment/Plan - Problem List (1) Acute on chronic pancreatitis Assessment/Plan: Improved Able to tolerate PO Stop IVF Transition from IV to p.o. pain meds Likely DC home tomorrow on p.o. pain meds (2) Gastritis Qualifiers: Gastritis type: alcoholic Assessment/Plan: Patient continues to have pain that is not typical of pancreatitis We will start patient on Protonix Stop Pepcid (3) Hypokalemia Assessment/Plan: Hypokalemia likely secondary to GI loss and decreased p.o. intake Patient able to tolerate p.o. today, 40 mEq ordered - Current Meds Current Meds: Current Medications Generic Name Dose Route Start Last Admin Trade Name Freq PRN Reason Stop Dose Admin Lipase/Protease/Amylase 1 cap 02/04/23 17:00 02/07/23 12:49 Lipase/Protease/Amylase Capsule PO 1 cap TIDWM LUCY Administration Calcium Carbonate/Glycine 500 mg 02/04/23 18:36 02/04/23 18:58 Calcium Carbonate Chew 500 Mg Tablet PO 500 mg BID PRN Administration Heartburn Enoxaparin Sodium 40 mg 02/05/23 09:00 02/07/23 08:04 Enoxaparin 40 Mg/0.4 Ml Syringe SUBQ 40 mg DAILY LUCY Administration Escitalopram Oxalate 20 mg 02/05/23 09:00 02/07/23 08:04 Escitalopram 10 Mg Tablet PO 20 mg DAILY LUCY Administration Lactated Ringer's 1,000 mls @ 150 mls/hr 02/04/23 15:00 02/07/23 12:46 Lr IV Not Given .Q6H40M LUCY Magnesium Oxide 400 mg 02/04/23 18:00 02/07/23 08:04 Magnesium Oxide 400 Mg Tablet PO 400 mg DAILYWM LUCY Administration Nicotine 1 patch 02/06/23 19:16 02/07/23 08:04 Nicotine 14 Mg Patch TOP 1 patch DAILY LUCY Administration Ondansetron HCl 4 mg 02/04/23 14:23 02/07/23 08:29 Ondansetron 4 Mg/2 Ml Vial IVP 4 mg Q6HR PRN Administration Nausea / Vomiting Oxycodone HCl 10 mg 02/07/23 08:16 02/07/23 12:45 Oxycodone 5 Mg Tablet PO 10 mg Q4HR PRN Administration Moderate Pain (Level 4-6) Pantoprazole Sodium 40 mg 02/07/23 14:00 02/07/23 13:55 Pantoprazole 40 Mg Tablet PO 40 mg QDAC LUCY Administration Multivit/Folic Acid/Iron 1 tab 02/06/23 08:00 02/07/23 08:04 Vitamin Tablet PO 1 tab DAILYWM LUCY Administration Prochlorperazine Edisylate 10 mg 02/04/23 14:23 02/07/23 13:55 Prochlorperazine 10 Mg/2 Ml Vial IVP 10 mg Q6HR PRN Administration Nausea / Vomiting Sodium Chloride 10 ml 02/04/23 14:23 02/05/23 20:35 Sodium Chloride Flush 0.9% 10 Ml Syringe IVP 10 ml PRN PRN Administration NEEDED PER PROVIDER ORDERS Sodium Chloride 10 ml 02/04/23 17:00 02/07/23 08:04 Sodium Chloride Flush 0.9% 10 Ml Syringe IVP Not Given 0100,0900,1700 LUCY - Lab Result Lab results reviewed: Yes Fish Bone Diagrams: 02/07/23 05:05 02/07/23 05:05 - Diagnostic Imaging Results Diagnostic Imaging Results: Final report reviewed - Additional Planning My Orders: My Active Orders 02/07/23 08:16 oxyCODONE [Roxicodone] 10 mg PO Q4HR PRN 02/07/23 14:00 Pantoprazole [Protonix] 40 mg PO QDAC Subjective - Subjective Patient Reports: Feeling Better, Abdominal Pain Objective Vital Signs: Vital Signs - 24 hr 02/06/23 02/06/23 02/07/23 15:41 20:02 00:01 Temperature 36.5 C 36.7 C 37.7 C Heart Rate [ 103 H 108 H 113 H Brachial] Respiratory 20 24 16 Rate Blood Pressure 119/83 H [Left Brachial artery] Blood Pressure 116/74 127/82 H [Right Brachial artery] O2 Saturation 93 93 92 02/07/23 02/07/23 02/07/23 04:16 07:30 12:28 Temperature 36.9 C 36.9 C 37 C Heart Rate [ 102 H 101 H 100 Brachial] Respiratory 20 18 20 Rate Blood Pressure 127/89 H 123/90 H 138/97 H [Left Brachial artery] Blood Pressure [Right Brachial artery] O2 Saturation 91 L 90 L 93 Oxygen O2 Source Room air I&O (Last 24 Hrs): Intake and Output Totals x24h 02/05/23 02/06/23 02/07/23 23:59 23:59 23:59 Intake Total 4650.0 4682.5 2150 Balance 4650.0 4682.5 2150 General: Alert, Oriented x3, Cooperative HEENT: Atraumatic, PERRLA, EOMI Neck: Supple Neuro: Alert, Non Focal, CN 2-12 Grossly Intact, Oriented Times 3 Cardiovascular: Regular rate, Normal S1, Normal S2 Respiratory: Chest non-tender, No respiratory distress, Breath sounds nml Abdomen: Normal bowel sounds Extremities: No clubbing, No cyanosis, No edema Skin: No rashes - Results Results: Laboratory Results WBC 7.8 x10^3/uL (4.8-10.8) 02/07/23 05:05 RBC 3.05 10^6/uL (4.20-5.40) L 02/07/23 05:05 Hgb 10.8 g/dL (12.0-16.0) L 02/07/23 05:05 Hct 32.7 % (37.0-47.0) L 02/07/23 05:05 MCV 107.2 fL (81.0-99.0) H 02/07/23 05:05 MCH 35.4 pg (27.0-31.0) H 02/07/23 05:05 MCHC 33.0 g/dL (32.0-36.0) 02/07/23 05:05 RDW 14.5 % (12.0-15.0) 02/07/23 05:05 Plt Count 121 10^3/uL (130-450) L 02/07/23 05:05 MPV 11.1 fL (7.9-10.8) H 02/07/23 05:05 Neut # (Auto) 5.8 10^3/uL (1.5-6.6) 02/07/23 05:05 Lymph # (Auto) 1.1 10^3/uL (1.5-3.5) L 02/07/23 05:05 [place] # (Auto) 0.8 10^3/uL (0.0-1.0) 02/07/23 05:05 Eos # (Auto) 0.1 10^3/uL (0.0-0.7) 02/07/23 05:05 Baso # (Auto) 0.0 10^3/uL (0.0-0.1) 02/07/23 05:05 Absolute Nucleated RBC 0.00 x10^3/uL 02/07/23 05:05 Nucleated RBC % 0.0 /100WBC 02/07/23 05:05 Sodium 132 mmol/L (135-145) L 02/07/23 05:05 Potassium 3.3 mmol/L (3.5-4.5) L 02/07/23 05:05 Chloride 101 mmol/L (101-111) 02/07/23 05:05 Carbon Dioxide 28 mmol/L (21-32) 02/07/23 05:05 Anion Gap 3.0 (6-13) L 02/07/23 05:05 BUN 9 mg/dL (6-20) 02/07/23 05:05 Creatinine 0.5 mg/dL (0.6-1.3) L 02/07/23 05:05 Estimated GFR (MDRD) 140 (>89) 02/07/23 05:05 Glucose 98 mg/dL (74-104) 02/07/23 05:05 Estimat Average Glucose 111 mg/dL (70-100) H 02/05/23 05:40 Hemoglobin A1c % 5.5 % (4.27-6.07) 02/05/23 05:40 Calcium 8.2 mg/dL (8.5-10.3) L 02/07/23 05:05 Magnesium 1.4 mg/dL (1.7-2.3) L 02/05/23 05:40 Total Bilirubin 1.0 mg/dL (0.2-1.0) 02/04/23 08:46 AST 31 IU/L (10-42) 02/04/23 08:46 ALT 22 IU/L (10-60) 02/04/23 08:46 Alkaline Phosphatase 133 IU/L (42-121) H 02/04/23 08:46 Total Protein 6.6 g/dL (6.4-8.9) 02/04/23 08:46 Albumin 3.9 g/dL (3.2-5.5) 02/04/23 08:46 Globulin 2.7 g/dL (2.1-4.2) 02/04/23 08:46 Albumin/Globulin Ratio 1.4 (1.0-2.2) 02/04/23 08:46 Triglycerides 124 mg/dL (48-352) 02/04/23 08:46 Cholesterol 131 mg/dL (-200) 02/04/23 08:46 LDL Cholesterol, Calc 38 mg/dL (-129) 02/04/23 08:46 VLDL Cholesterol 25 mg/dL 02/04/23 08:46 HDL Cholesterol 68 mg/dL (60-) 02/04/23 08:46 LDL/HDL Ratio 0.6 (<4.4) 02/04/23 08:46 Cholesterol/HDL Ratio 1.9 (<4.4) 02/04/23 08:46 Amylase 53 U/L (28-100) 02/06/23 05:25 Lipase 127 U/L (11-82) H 02/06/23 05:25 Folate 9.1 ng/mL (5.90 - >24.8) 02/05/23 05:40 Urine Color YELLOW 02/04/23 12:32 Urine Clarity CLEAR (CLEAR) 02/04/23 12:32 Urine pH 5.5 PH (5.0-7.5) 02/04/23 12:32 Ur Specific [place] 1.015 (1.002-1.030) 02/04/23 12:32 Urine Protein NEGATIVE mg/dL (NEGATIVE) 02/04/23 12:32 Urine Glucose (UA) NEGATIVE mg/dL (NEGATIVE) 02/04/23 12:32 Urine Ketones NEGATIVE mg/dL (NEGATIVE) 02/04/23 12:32 Urine Occult Blood NEGATIVE (NEGATIVE) 02/04/23 12:32 Urine Nitrite NEGATIVE (NEGATIVE) 02/04/23 12:32 Urine Bilirubin NEGATIVE (NEGATIVE) 02/04/23 12:32 Urine Urobilinogen 0.2 (NORMAL) E.U./dL (NORMAL) 02/04/23 12:32 Ur Leukocyte Esterase NEGATIVE (NEGATIVE) 02/04/23 12:32 Ur Microscopic Review NOT INDICATED 02/04/23 12:32 Urine Culture Comments NOT INDICATED 02/04/23 12:32 Urine HCG, Qual NEGATIVE 02/04/23 12:32 Urine Opiates Screen POSITIVE (NEGATIVE) H 02/05/23 09:07 Ur Oxycodone Screen POSITIVE (NEGATIVE) H 02/05/23 09:07 Urine Methadone Screen NEGATIVE (NEGATIVE) 02/05/23 09:07 Ur Propoxyphene Screen NEGATIVE (NEGATIVE) 02/05/23 09:07 Ur Barbiturates Screen NEGATIVE (NEGATIVE) 02/05/23 09:07 Ur Tricyclics Screen NEGATIVE (NEGATIVE) 02/05/23 09:07 Ur Phencyclidine Scrn NEGATIVE (NEGATIVE) 02/05/23 09:07 Ur Amphetamine Screen NEGATIVE (NEGATIVE) 02/05/23 09:07 U Methamphetamines Scrn NEGATIVE (NEGATIVE) 02/05/23 09:07 U Benzodiazepines Scrn NEGATIVE (NEGATIVE) 02/05/23 09:07 Urine Cocaine Screen NEGATIVE (NEGATIVE) 02/05/23 09:07 U Cannabinoids Screen POSITIVE (NEGATIVE) H 02/05/23 09:07 Ethyl Alcohol < 10.0 mg/dL 02/04/23 08:46 - Procedures Procedures: Procedures INSERTION OF INFUSION DEV INTO SUP VENA CAVA, PERC APPROACH (04/09/22) INTRODUCTION OF NUTRITIONAL INTO PERIPH VEIN, PERC APPROACH (04/09/22) MANUAL ASSIST DELIV NEC (11/14/14) ABX Reporting Has patient been on IV antibiotics over the past 48 hours?: No Current Medications - Current Medications Current Medications: Current Medications Generic Name Dose Route Start Last Admin Trade Name Freq PRN Reason Stop Dose Admin Lipase/Protease/Amylase 1 cap 02/04/23 17:00 02/07/23 12:49 Lipase/Protease/Amylase Capsule PO 1 cap TIDWM LUCY Administration Calcium Carbonate/Glycine 500 mg 02/04/23 18:36 02/04/23 18:58 Calcium Carbonate Chew 500 Mg Tablet PO 500 mg BID PRN Administration Heartburn Enoxaparin Sodium 40 mg 02/05/23 09:00 02/07/23 08:04 Enoxaparin 40 Mg/0.4 Ml Syringe SUBQ 40 mg DAILY LUCY Administration Escitalopram Oxalate 20 mg 02/05/23 09:00 02/07/23 08:04 Escitalopram 10 Mg Tablet PO 20 mg DAILY LUCY Administration Lactated Ringer's 1,000 mls @ 150 mls/hr 02/04/23 15:00 02/07/23 12:46 Lr IV Not Given .Q6H40M [facility] Magnesium Oxide 400 mg 02/04/23 18:00 02/07/23 08:04 Magnesium Oxide 400 Mg Tablet PO 400 mg DAILYWM LUCY Administration Nicotine 1 patch 02/06/23 19:16 02/07/23 08:04 Nicotine 14 Mg Patch TOP 1 patch DAILY LUCY Administration Ondansetron HCl 4 mg 02/04/23 14:23 02/07/23 08:29 Ondansetron 4 Mg/2 Ml Vial IVP 4 mg Q6HR PRN Administration Nausea / Vomiting Oxycodone HCl 10 mg 02/07/23 08:16 02/07/23 12:45 Oxycodone 5 Mg Tablet PO 10 mg Q4HR PRN Administration Moderate Pain (Level 4-6) Pantoprazole Sodium 40 mg 02/07/23 14:00 02/07/23 13:55 Pantoprazole 40 Mg Tablet PO 40 mg QDAC LUCY Administration Multivit/Folic Acid/Iron 1 tab 02/06/23 08:00 02/07/23 08:04 Vitamin Tablet PO 1 tab DAILYWM LUCY Administration Prochlorperazine Edisylate 10 mg 02/04/23 14:23 02/07/23 13:55 Prochlorperazine 10 Mg/2 Ml Vial IVP 10 mg Q6HR PRN Administration Nausea / Vomiting Sodium Chloride 10 ml 02/04/23 14:23 02/05/23 20:35 Sodium Chloride Flush 0.9% 10 Ml Syringe IVP 10 ml PRN PRN Administration NEEDED PER PROVIDER ORDERS Sodium Chloride 10 ml 02/04/23 17:00 02/07/23 08:04 Sodium Chloride Flush 0.9% 10 Ml Syringe IVP Not Given 0100,0900,1700 [facility]
[2023-02-07] MEDS: CALCIUM CARBONATE CHEW 500 MG TABLET PO PRN (16:18)
--- NOTE | 2023-02-07 18:15 | Discharge Plan ---
Discharge Plan Problem Reviewed?: Yes Disposition: Home, Self Care Condition: Good Prescriptions: oxyCODONE [Roxicodone] 10 mg PO Q4HR PRN #20 tab PRN Reason: Moderate Pain (Level 4-6) Magnesium Oxide [Mag Ox] 400 mg PO DAILYWM #30 tab Pantoprazole [Protonix] 40 mg PO QDAC 30 Days #30 tab Diet: Regular Activity Restrictions: No Restrictions Instruction Topics: Pancreatitis Chronic Dc No Smoking: If you smoke, Please STOP! Call for help.
[2023-02-07 18:23] VITALS: BP 133/94; O2SAT 94
--- NOTE | 2023-02-07 18:24 | DISCHARGE SUMMARY ---
Discharge Summary Admit Date: 02/04/23 Discharge Date: 02/07/23 Discharging Provider: Dr Hammad Beatty MD Code Status: Attempt Resuscitation Condition at Discharge: Good Discharge Disposition: 01 Home, Self Care - DIAGNOSES Admission Diagnoses: Acute on chronic pancreatitis Hypokalemia Gastritis Depression with anxiety Discharge Diagnoses with Status of Each Condition: Acute on chronic pancreatitisimproved Gastritisstable Hypokalemiaresolved Hypomagnesemiaresolved - HPI History of Present Illness: This is a 37-year-old female with a past medical history significant for pancreatitis, history of alcohol abuse, anxiety/depression, gastritis who presents today complaining of abdominal pain as well as nausea and vomiting. She states her symptoms began yesterday with a mild stomach ache and some nausea. This progressed on the day to the point where she had significant abdominal pain throughout her abdomen as well as in the epigastric region. She also had nausea and emesis and had difficulty keeping down food. This felt similar to her prior episodes of pancreatitis. She has felt hot and cold as well as dizzy and lightheaded. No chest pain or shortness of breath. No dysuria or urgency. She denies any recent alcohol use and reports being sober from alcohol. She does follow with Dr. Bautista of GI at [facility]. Underwent endoscopy last month for stent removal but it was noted that the stent was not present. The patient states she does take Creon with meals. She reports no diarrhea. She reports being under some stress over the past few days and she thinks this may be contributing to her pancreatitis. - HOSPITAL COURSE Hospital Course: Patient is a 37-year-old female with history of chronic pancreatitis admitted for acute on chronic pancreatitis. CT scan was consistent with acute pancreatitis with lipase elevated into the 700s. She was treated with IV fluids, pain medication and gradual advancement of diet. She had transient hypokalemia and hypomagnesemia which were repleted appropriately. She was able to tolerate a regular diet on the day of discharge. She was able to tolerate pain control with p.o. meds for approximately 8 hours and was offered the opportunity to spend the night to continue a 24-hour period of trial with p.o. pain meds however patient elected to discharge sooner than that due to concerns of providing care for family members at home. She is advised to follow-up with her GI doctor. - ALLERGIES Allergies/Adverse Reactions: Allergies Allergy/AdvReac Type Severity Reaction Status Date / Time No Known Drug Allergies Allergy Verified 02/04/23 08:43 - MEDICATIONS Home Medications: Ambulatory Orders Medication Instructions Recorded Confirmed Lipase/Protease/Amylase [Creon Dr 24,000 unit PO TIDWM 07/30/22 02/04/23 24,000 Unit Capsule] Escitalopram Oxalate 20 mg PO DAILY 10/04/22 02/04/23 Prochlorperazine [Compazine] 5 mg PO Q6HR PRN 10/04/22 02/04/23 Ondansetron Odt [Zofran Odt] 4 mg TL Q6H PRN #10 tablet 11/10/22 02/04/23 Acetaminophen [Tylenol] 325 mg PO Q6H PRN 02/04/23 02/04/23 Magnesium Oxide [Mag Ox] 400 mg PO DAILYWM #30 tab 02/07/23 Pantoprazole [Protonix] 40 mg PO QDAC 30 Days #30 tab 02/07/23 oxyCODONE [Roxicodone] 10 mg PO Q4HR PRN #20 tab 02/07/23 - PHYSICAL EXAM AT DISCHARGE General Appearance: positive: No acute distress Eyes Bilateral: positive: Normal inspection Neck: positive: Nml inspection Abdomen: negative: Non-tender, No distention, Guarding, Rebound, Abnml bowel sounds Skin: positive: Color nml Neurologic/Psychiatric: positive: Oriented x3, CN's nml (2-12), Motor nml - LABS Result Diagrams: 02/07/23 05:05 02/07/23 05:05 - DIAGNOSTIC IMAGING Diagnostic Imaging Results: Final report reviewed - FOLLOW UP Follow Up: PCP and GI - TIME SPENT Time Spent in Discharge (Minutes): 46
== END 2023-02-07 18:48 | disposition home or self-care (01) ==
LOC: EDUNIT# → ED 08:32 → MS2 14:23
PROVIDERS: ADMIT Internal Medicine; ATTEND Family Medicine Sports Medicine
DX: K85.90 Acute pancreatitis without necrosis or infection, unspecified (principal); K86.1 Other chronic pancreatitis; K29.70 Gastritis, unspecified, without bleeding; E87.6 Hypokalemia; E83.42 Hypomagnesemia; R00.0 Tachycardia, unspecified; R79.89 Other specified abnormal findings of blood chemistry; K21.9 Gastro-esophageal reflux disease without esophagitis; F32.A Depression, unspecified; F41.9 Anxiety disorder, unspecified; F17.210 Nicotine dependence, cigarettes, uncomplicated; Z79.899 Other long term (current) drug therapy
CPT/HCPCS: 36415; 74177; 80048; 80053; 80061; 80306; 80320; 81003; 81025; 82150; 82746; 83036; 83690; 83735; 85025; 96365; 96366; 96372; 96375; 96376; 99284; 99285; A9270; G0378; J1170; J1650; J2765; J7120; Q9967; 81001; 83721; 87086

== ENCOUNTER 2023-03-22 09:24 | Outpatient (CLI) | payer MEDICAID | END 2023-03-22 09:25 | disposition short-term general hospital (02) | LOC: EMS 09:24 | DX: K85.90 Acute pancreatitis without necrosis or infection, unspecified (principal); R19.5 Other fecal abnormalities | CPT/HCPCS: A0425; A0427; A0999 ==

== ENCOUNTER 2023-04-07 11:00 | Outpatient (CLI) | payer MEDICAID | END 2023-04-07 11:01 | disposition critical access hospital (66) | LOC: EMS 11:00 | DX: R10.12 Left upper quadrant pain (principal); R10.32 Left lower quadrant pain | CPT/HCPCS: A0425; A0429; A0999 ==

== ENCOUNTER 2023-04-07 11:14 | Emergency (ER) | payer MEDICAID ==
[2023-04-07 11:24] VITALS: BP 125/80; O2SAT 98
== END 2023-04-07 11:45 | disposition left against medical advice (07) ==
LOC: EDUNIT# → ED 11:14
DX: Z53.21 Procedure and treatment not carried out due to patient leaving prior to being seen by health care provider (principal)
CPT/HCPCS: 80053; 83690; 85025

== ENCOUNTER 2023-04-25 07:50 | Outpatient (CLI) | payer MEDICAID | END 2023-04-25 07:51 | disposition critical access hospital (66) | LOC: EMS 07:50 | DX: R10.11 Right upper quadrant pain (principal); R10.12 Left upper quadrant pain; M54.50 Low back pain, unspecified | CPT/HCPCS: A0425; A0427; A0999 ==

== ENCOUNTER 2023-04-25 08:14 | Emergency (ER) | payer MEDICAID ==
[2023-04-25 08:43] LABS: BASOPHILS % (AUTO) 0.1 %; EOSINOPHILS % (AUTO) 0.1 %; HCT - HEMATOCRIT 36.7 % (37.0-47.0); HGB - HEMOGLOBIN 12.1 g/dL (12.0-16.0); LYMPHOCYTES # (AUTO) 0.5 10^3/uL (1.5-3.5); MEAN CORPUSCULAR HEMOGLOBIN 33.9 pg (27.0-31.0); MEAN CORPUSCULAR VOLUME 102.8 fL (81.0-99.0); MEAN PLATELET VOLUME 11.2 fL (7.9-10.8); MONOCYTES # (AUTO) 0.3 10^3/uL (0.0-1.0); MONOCYTES % (AUTO) 4.2 %; NEUTROPHILS # (AUTO) 6.3 10^3/uL (1.5-6.6); NEUTROPHILS % (AUTO) 88.3 %; PLT - PLATELET COUNT 141 10^3/uL (130-450); RED BLOOD COUNT 3.57 10^6/uL (4.20-5.40); RED CELL DISTRIBUTION WIDTH 14.7 % (12.0-15.0); WHITE BLOOD COUNT 7.2 x10^3/uL (4.8-10.8)
[2023-04-25 08:56] LABS: ALBUMIN 3.2 g/dL (3.2-5.5); ALBUMIN/GLOBULIN RATIO 1.2 (1.0-2.2); BILIRUBIN,TOTAL 2.1 mg/dL (0.2-1.0); CALCIUM 8.5 mg/dL (8.5-10.3); CREATININE 0.7 mg/dL (0.6-1.3); POTASSIUM 3.1 mmol/L (3.5-4.5); TOTAL PROTEIN 5.9 g/dL (6.4-8.9)
--- NOTE | 2023-04-25 09:22 | ED Physician Documentation ---
PD HPI ABD PAIN - Stated complaint Stated Complaint: ABD PX - Chief complaint Chief Complaint: Abd Pain - History obtained from History obtained from: Patient - History of Present Illness Timing - onset: How many days ago (2) Timing - duration: Days (2) Timing - details: Gradual onset, Still present Quality: Aching, Sharp, Pain Location: Epigastric Radiation: Upper back Improved by: No: Eating, Vomiting Worsened by: Eating, Moving, Palpation. No: Breathing Associated symptoms: Nausea, Vomiting, Diarrhea (some loose stool movements the past 2 days.). No: Fever, Constipation Similar symptoms before: Diagnosis (pancreatitis frequently/chronically with exacerbations. Prior alcoholism, states no alcohol for past 2 months. No URI nor viral type symptoms currently. No prior GB problems.) Review of Systems Constitutional: denies: Fever, Chills Nose: denies: Rhinorrhea / runny nose, Congestion Throat: denies: Sore throat Respiratory: denies: Cough GI: reports: Abdominal Pain, Nausea, Vomiting, Diarrhea. 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 HEENT: Tonsil/Adenoidectomy - Present Medications Home Medications: Ambulatory Orders Medication Instructions Recorded Confirmed Lipase/Protease/Amylase [Frank Ledbetter 24,000 unit PO TIDWM 07/30/22 02/04/23 24,000 Unit Capsule] Escitalopram Oxalate 20 mg PO DAILY 10/04/22 02/04/23 Prochlorperazine [Compazine] 5 mg PO Q6HR PRN 10/04/22 02/04/23 Ondansetron Odt [Zofran Odt] 4 mg TL Q6H PRN #10 tablet 11/10/22 02/04/23 Acetaminophen [Tylenol] 325 mg PO Q6H PRN 02/04/23 02/04/23 Magnesium Oxide [Mag Ox] 400 mg PO DAILYWM #30 tab 02/07/23 Pantoprazole [Protonix] 40 mg PO QDAC 30 Days #30 tab 02/07/23 oxyCODONE [Roxicodone] 10 mg PO Q4HR PRN #20 tab 02/07/23 HYDROcod/ACETAM 5/325 [[place] 5/325] 1 ea PO Q6H PRN #14 tablet 04/25/23 Magnesium Oxide [Mag Ox] 800 mg PO DAILY #20 tablet 04/25/23 Ondansetron Odt [Zofran] 4 mg TL Q6H PRN #20 tablet 04/25/23 Promethazine Supp [Phenergan Supp] 25 mg [place] Q6H PRN #10 supp 04/25/23 Promethazine [Phenergan] 25 mg PO Q6H PRN #20 tab 04/25/23 - Allergies Allergies/Adverse Reactions: Allergies Allergy/AdvReac Type Severity Reaction Status Date / Time No Known Drug Allergies Allergy Verified 04/07/23 11:22 - Social History Does the pt smoke?: Yes Smoking Status: Current every day smoker Does the pt drink ETOH?: Yes Does the pt have substance abuse?: Yes - Immunizations Immunizations are current?: Yes - POLST Patient has POLST: No POLST Status: Full Code PD ED PE NORMAL - Vitals Vital signs reviewed: Yes - General General: Alert and oriented X 3, Well developed/nourished - Neck Neck: Supple, no meningeal sign, No adenopathy - Cardiac Cardiac: RRR, No murmur - Respiratory Respiratory: Clear bilaterally - Abdomen Abdomen: Normal bowel sounds, Soft, Non distended, No organomegaly, Other (markedly tender epigastric/upper abd with guarding and percussion tender. Lower abd not tender. ) Results - Vitals Vitals: Oxygen O2 Source Room air - Labs Labs: Laboratory Tests 04/25/23 04/25/23 04/25/23 08:38 08:38 08:38 WBC 7.2 RBC 3.57 L Hgb 12.1 Hct 36.7 L MCV 102.8 H MCH 33.9 H MCHC 33.0 RDW 14.7 Plt Count 141 MPV 11.2 H Neut # (Auto) 6.3 Lymph # (Auto) 0.5 L [place] # (Auto) 0.3 Eos # (Auto) 0.0 Baso # (Auto) 0.0 Absolute Nucleated RBC 0.00 Nucleated RBC % 0.0 Sodium 135 Potassium 3.1 L Chloride 102 Carbon Dioxide 25 Anion Gap 8.0 BUN 7 Creatinine 0.7 Estimated GFR (MDRD) 95 Glucose 133 H Calcium 8.5 Magnesium 1.3 L Total Bilirubin 2.1 H AST 471 H ALT 101 H Alkaline Phosphatase 236 H Total Protein 5.9 L Albumin 3.2 Globulin 2.7 Albumin/Globulin Ratio 1.2 Lipase 157 H Ethyl Alcohol 04/25/23 08:39 WBC RBC Hgb Hct MCV MCH MCHC RDW Plt Count MPV Neut # (Auto) Lymph # (Auto) [place] # (Auto) Eos # (Auto) Baso # (Auto) Absolute Nucleated RBC Nucleated RBC % Sodium Potassium Chloride Carbon Dioxide Anion Gap BUN Creatinine Estimated GFR (MDRD) Glucose Calcium Magnesium Total Bilirubin AST ALT Alkaline Phosphatase Total Protein Albumin Globulin Albumin/Globulin Ratio Lipase Ethyl Alcohol < 10.0 - Rads (name of study) abd US Relevant Findings:: Prelim report reviewed (no gallbladder problems. bile duct not dilated. hepatic steatosis, c/w prior studies.), EMP independent interpretation of test PD Medical Decision Making - ED course Complexity details: reviewed results (GB and CBD are okay. No biliary cause on elevated LFTs. Lipase elevated c/w her pancreatitis. ), considered differential, d/w patient Reviewed Lab Results: Moderately elevated lipase and comparison to prior levels she has had. Consistent with acute pancreatitis. She does have elevation of the LFTs as well. She has had this at times in the past but not consistently. No prior history of gallbladder problems. With concern for a ductal or gallbladder process, I did order ultrasound of the abdomen which did not show any acute biliary and or bile duct process. The patient was given IV fluids as well as antiemetics and pain medicines. With dosing of Zofran and then Inapsine along with Toradol and hydromorphone, the patient did have an improvement in her pain without any untoward effects. She was able to drink fluids and felt reasonably improved on her pain close to her baseline level. She did feel able to try treatment at home. Discharged in improved condition. Departure - Departure Disposition: 01 Home, Self Care Clinical Impression: Abdominal pain, Acute on chronic pancreatitis, Nausea and vomiting, Hypokalemia, Hypomagnesemia, Elevated liver enzymes Condition: Stable Record reviewed to determine appropriate education?: Yes Instructions: Pancreatitis Chronic Dc Prescriptions: Magnesium Oxide [Mag Ox] 800 mg PO DAILY #20 tablet HYDROcod/ACETAM 5/325 [[place] 5/325] 1 ea PO Q6H PRN #14 tablet PRN Reason: Pain Promethazine [Phenergan] 25 mg PO Q6H PRN #20 tab PRN Reason: Nausea / Vomiting Promethazine Supp [Phenergan Supp] 25 mg [place] Q6H PRN #10 supp PRN Reason: Nausea / Vomiting Ondansetron Odt [Zofran] 4 mg TL Q6H PRN #20 tablet PRN Reason: Nausea / Vomiting Comments: You have been through this before so you know the common treatment plan. Liquids only and bland food over the next few days to help with the pancreatitis. There may be some element of gastritis as well so bland food and also some antacids such as Maalox or Mylanta. Your magnesium and potassium are low. Go with potassium rich foods once your diet is improved. I did write for magnesium supplement. For the nausea, I provided options of ondansetron/Zofran but also promethazine if needed for nausea as oral tablets and promethazine suppositories if needed for vomiting that is intractable. Add Tylenol every 4-6 hours if needed for pains and also prescribed hydrocodone to use every 6-8 hours if needed for worse pain for short-term. Recheck if not improved well over the next few days back to baseline. Return if needed. I sent your prescriptions to [facility] in [place]. I am prescribing a short course of narcotic pain medication for you. These are potentially dangerous and addictive medications that should be used carefully. These medications may constipate you. Take an [id number] stool softener such as docusate twice daily with plenty of water while taking these medications. If you go 24 hours without a bowel movement, take [id number] MiraLAX, per package instructions. Do not drink or drive while taking these medications. If you received narcotic or sedating medications while in the emergency department do not drive for 24 hours. Store this medication in a safe, secure place and out of reach of children. It is a violation of federal law to give or sell this medication to another person or to use in a manner other than prescribed. The ED will not refill narcotic prescriptions, including prescriptions lost or stolen. You can dispose of unwanted medications at the [facility]'s office or at several pharmacies such as [facility]. Forms: PCP List Discharge Date/Time: 04/25/23 13:41
[2023-04-25] MEDS ORDERED: MAG HYDROX/AL HYDROX/SIMETH 30 ML UDC PO STA (09:30)
[2023-04-25] MEDS ORDERED: KETOROLAC 15 MG/ML VIAL IVP STA (09:30)
[2023-04-25] MEDS ORDERED: DROPERIDOL 5 MG/2 ML VIAL IVP STA (09:30)
[2023-04-25] MEDS ORDERED: SODIUM CHLORIDE 0.9% 1,000 ML IV STA (09:30)
[2023-04-25] MEDS ORDERED: HYDROmorphone 1 MG/ML CARPUJECT IVP STA ×2 (09:30→10:55)
[2023-04-25] MEDS ORDERED: LACTATED RINGERS 1,000 ML IV STA (10:54)
[2023-04-25] MEDS ORDERED: MAGNESIUM SULFATE 2 GRAM 2 GM/50 ML BAG IV ONE (10:54)
--- NOTE | 2023-04-25 11:36 | Ultrasound Report ---
PROCEDURE: Abdomen Limited INDICATIONS: elevated LFTs/lipase. h/o pancreatitis. eval GB. TECHNIQUE: Real-time focused scanning was performed of the abdomen, with image documentation. COMPARISONS: CT dated 02/04/2023. FINDINGS: Liver: Mildly increased echogenicity is consistent with diffuse hepatic steatosis. Hepatomegaly, bot h previously present. Gallbladder: Unremarkable. Biliary ducts: Intrahepatic bile ducts are non-dilated. Extrahepatic bile duct caliber measures 4.5 mm. Normal is 6-7 mm or less in diameter, or 10 mm or less post-cholecystectomy. Pancreas: Visualized portions of the pancreas are sonographically normal. Right kidney: Normal in size and echotexture. Right kidney measures 9.8 cm long. No hydronephrosis o r nephrolithiasis. No solid masses. No complex renal cystic lesions which require follow-up. Aorta: Visualized aorta is normal in caliber at less than 3 cm. IVC: Intrahepatic inferior vena cava is patent. Miscellaneous: No free abdominal fluid. IMPRESSION: Hepatomegaly, diffuse hepatic steatosis. Unremarkable gallbladder. Reviewed by: Humble Barrios MD on 04/25/2023 11:34 AM PST Approved by: Humble Barrios MD on 04/25/2023 11:34 AM PST Station ID: [id number]
[2023-04-25 13:49] VITALS: BP 103/73; O2SAT 98
== END 2023-04-25 13:41 | disposition home or self-care (01) ==
LOC: EDUNIT# → ED 08:14
DX: K85.90 Acute pancreatitis without necrosis or infection, unspecified (principal); K86.1 Other chronic pancreatitis; K86.81 Exocrine pancreatic insufficiency; E87.6 Hypokalemia; E83.42 Hypomagnesemia; R74.01 Elevation of levels of liver transaminase levels; F17.200 Nicotine dependence, unspecified, uncomplicated
CPT/HCPCS: 36415; 76705; 80053; 80320; 83690; 83735; 85025; 96361; 96365; 96375; 96376; 99283; 99284; A9270; J1170; J7120

== ENCOUNTER 2023-04-26 11:16 | Outpatient (CLI) | payer MEDICAID | END 2023-04-26 11:17 | disposition critical access hospital (66) | LOC: EMS 11:16 | DX: R10.12 Left upper quadrant pain (principal); R10.812 Left upper quadrant abdominal tenderness; R11.0 Nausea | CPT/HCPCS: A0425; A0427; A0999 ==

== ENCOUNTER 2023-04-26 11:19 | Inpatient (IN) | payer MEDICAID ==
[2023-04-26] MEDS ORDERED: SODIUM CHLORIDE 0.9% 1,000 ML IV STA ×2 (12:05→14:00)
[2023-04-26] MEDS ORDERED: HYDROmorphone 1 MG/ML CARPUJECT IVP STA ×3 (12:06→14:00)
[2023-04-26] MEDS ORDERED: DROPERIDOL 5 MG/2 ML VIAL IVP STA (12:06)
--- NOTE | 2023-04-26 12:15 | ED Physician Documentation ---
History of Present Illness - Stated complaint Stated Complaint: ABD LUQ PX - Chief complaint Chief Complaint: Abd Pain - History obtained from History obtained from: Patient - History of Present Illness Timing: Last night Pain level max: 8 Pain level now: 8 - Additonal information Additional information: Patient is a 37-year-old female with chronic recurrent pancreatitis. She states that she accidentally drink alcohol last night when she picked up her mother's drink. She began having epigastric abdominal pain after that. The pain has continued to worsen today. She was seen here yesterday for abdominal pain and prescriptions were sent to the pharmacy but she has not yet picked them up. No fevers. No chills. No diarrhea. No constipation. Has had nausea but no vomiting. Nothing makes the pain better or worse. Review of Systems Constitutional: denies: Fever, Chills Respiratory: denies: Dyspnea, Cough GI: denies: Vomiting, Diarrhea : denies: Dysuria, Frequency, Hesitancy, Now EGA Skin: denies: Rash Musculoskeletal: denies: Neck pain, Back pain Neurologic: denies: Headache PD PAST MEDICAL HISTORY - Past Medical History Past Medical History: Yes Cardiovascular: None Respiratory: None Neuro: Headaches Endocrine/Autoimmune: None GI: GERD, Pancreatitis, Cholelithiasis ASSISTANT AT SURGERY: None : Kidney stones HEENT: None Psych: Depression, Anxiety, Panic attacks Musculoskeletal: None Derm: None - Past Surgical History Past Surgical History: Yes General: EGD /ASSISTANT AT SURGERY: Other HEENT: Tonsil/Adenoidectomy - Present Medications Home Medications: Ambulatory Orders Medication Instructions Recorded Confirmed Lipase/Protease/Amylase [Frank Ledbetter 24,000 unit PO TIDWM 07/30/22 02/04/23 24,000 Unit Capsule] Escitalopram Oxalate 20 mg PO DAILY 10/04/22 02/04/23 Prochlorperazine [Compazine] 5 mg PO Q6HR PRN 10/04/22 02/04/23 Ondansetron Odt [Zofran Odt] 4 mg TL Q6H PRN #10 tablet 11/10/22 02/04/23 Acetaminophen [Tylenol] 325 mg PO Q6H PRN 02/04/23 02/04/23 Magnesium Oxide [Mag Ox] 400 mg PO DAILYWM #30 tab 02/07/23 Pantoprazole [Protonix] 40 mg PO QDAC 30 Days #30 tab 02/07/23 oxyCODONE [Roxicodone] 10 mg PO Q4HR PRN #20 tab 02/07/23 HYDROcod/ACETAM 5/325 [[place] 5/325] 1 ea PO Q6H PRN #14 tablet 04/25/23 Magnesium Oxide [Mag Ox] 800 mg PO DAILY #20 tablet 04/25/23 Ondansetron Odt [Zofran] 4 mg TL Q6H PRN #20 tablet 04/25/23 Promethazine Supp [Phenergan Supp] 25 mg [place] Q6H PRN #10 supp 04/25/23 Promethazine [Phenergan] 25 mg PO Q6H PRN #20 tab 04/25/23 - Allergies Allergies/Adverse Reactions: Allergies Allergy/AdvReac Type Severity Reaction Status Date / Time No Known Drug Allergies Allergy Verified 04/07/23 11:22 - Social History Does the pt smoke?: Yes Smoking Status: Current every day smoker Does the pt drink ETOH?: Yes Does the pt have substance abuse?: Yes - Immunizations Immunizations are current?: Yes - POLST Patient has POLST: No POLST Status: Full Code PD ED PE NORMAL - Vitals Vital signs reviewed: Yes - General General: Alert and oriented X 3, No acute distress - HEENT HEENT: PERRL, Moist mucous membranes - Neck Neck: Supple, no meningeal sign - Cardiac Cardiac: RRR - Respiratory Respiratory: No respiratory distress, Clear bilaterally - Abdomen Abdomen: Soft, Non distended, Other (Tender to palpation epigastric without peritoneal signs.) - Back Back: No CVA TTP, No spinal TTP - Derm Derm: Warm and dry - Extremities Extremities: No edema, No calf tenderness / cord - Neuro Neuro: Alert and oriented X 3 - Psych Psych: Normal mood, Normal affect Results - Vitals Vitals: Vital Signs - 24 hr 04/26/23 04/26/23 11:25 15:00 Temperature 36.2 C L Heart Rate 86 100 Respiratory 18 18 Rate Blood Pressure 116/84 H 125/89 H O2 Saturation 100 96 Oxygen O2 Source Room air - Labs Labs: Laboratory Tests 04/26/23 04/26/23 04/26/23 12:11 12:11 12:11 WBC 4.3 L RBC 3.43 L Hgb 11.8 L Hct 35.5 L MCV 103.5 H MCH 34.4 H MCHC 33.2 RDW 14.9 Plt Count 92 L MPV 11.7 H Neut # (Auto) 3.8 Lymph # (Auto) 0.4 L [place] # (Auto) 0.1 Eos # (Auto) 0.0 Baso # (Auto) 0.0 Absolute Nucleated RBC 0.00 Nucleated RBC % 0.0 PT INR APTT Sodium 133 L Potassium 3.3 L Chloride 101 Carbon Dioxide 27 Anion Gap 5.0 L BUN 4 L Creatinine 0.6 Estimated GFR (MDRD) 113 Glucose 119 H Calcium 8.2 L Phosphorus Magnesium Total Bilirubin 0.9 AST 5446 H ALT 698 H Alkaline Phosphatase 213 H Lactate Dehydrogenase Total Protein 5.7 L Albumin 3.2 Globulin 2.5 Albumin/Globulin Ratio 1.3 Lipase 59 Vitamin B12 Folate Urine Color Urine Clarity Urine pH Ur Specific [place] Urine Protein Urine Glucose (UA) Urine Ketones Urine Occult Blood Urine Nitrite Urine Bilirubin Urine Urobilinogen Ur Leukocyte Esterase Ur Microscopic Review Urine Culture Comments Urine HCG, Qual Acetaminophen Ethyl Alcohol < 10.0 04/26/23 04/26/23 04/26/23 12:11 12:11 12:11 WBC RBC Hgb Hct MCV MCH MCHC RDW Plt Count MPV Neut # (Auto) Lymph # (Auto) [place] # (Auto) Eos # (Auto) Baso # (Auto) Absolute Nucleated RBC Nucleated RBC % PT 14.6 H INR 1.3 H APTT 25.2 Sodium Potassium Chloride Carbon Dioxide Anion Gap BUN Creatinine Estimated GFR (MDRD) Glucose Calcium Phosphorus 1.7 L Magnesium 1.7 Total Bilirubin AST ALT Alkaline Phosphatase Lactate Dehydrogenase > 1200 H Total Protein Albumin Globulin Albumin/Globulin Ratio Lipase Vitamin B12 1300 H Folate 15.1 Urine Color Urine Clarity Urine pH Ur Specific [place] Urine Protein Urine Glucose (UA) Urine Ketones Urine Occult Blood Urine Nitrite Urine Bilirubin Urine Urobilinogen Ur Leukocyte Esterase Ur Microscopic Review Urine Culture Comments Urine HCG, Qual Acetaminophen 9.5 Ethyl Alcohol 04/26/23 12:20 WBC RBC Hgb Hct MCV MCH MCHC RDW Plt Count MPV Neut # (Auto) Lymph # (Auto) [place] # (Auto) Eos # (Auto) Baso # (Auto) Absolute Nucleated RBC Nucleated RBC % PT INR APTT Sodium Potassium Chloride Carbon Dioxide Anion Gap BUN Creatinine Estimated GFR (MDRD) Glucose Calcium Phosphorus Magnesium Total Bilirubin AST ALT Alkaline Phosphatase Lactate Dehydrogenase Total Protein Albumin Globulin Albumin/Globulin Ratio Lipase Vitamin B12 Folate Urine Color YELLOW Urine Clarity CLEAR Urine pH 6.0 Ur Specific [place] <=1.005 Urine Protein NEGATIVE Urine Glucose (UA) NEGATIVE Urine Ketones NEGATIVE Urine Occult Blood NEGATIVE Urine Nitrite NEGATIVE Urine Bilirubin NEGATIVE Urine Urobilinogen 0.2 (NORMAL) Ur Leukocyte Esterase NEGATIVE Ur Microscopic Review NOT INDICATED Urine Culture Comments NOT INDICATED Urine HCG, Qual NEGATIVE Acetaminophen Ethyl Alcohol - Rads (name of study) CT abd/pelvis Relevant Findings:: Final report received, See rad report PD Medical Decision Making - ED course Complexity details: reviewed results, re-evaluated patient, considered differential, d/w patient, d/w parts consultant ED course: Patient is a 37-year-old female with a history of cirrhosis, sees Dr. Bautista, At [facility]. I discussed the case with Dr. Caceres, on-call at at [facility]. The patient likely has liver function test elevation from ischemic hepatitis due to the wedge-shaped infarcts in her liver on CT scan. The patient also has had increased intake of acetaminophen recently, we will cover with a NAC protocol. Her INR is 1.3. She is not encephalopathic. Dr. Caceres recommends if her INR elevates, greater than 1.8 or she becomes encephalopathic that we contact a liver transplant facility such as the [facility]. Discussed the case with the hospitalist here, Dr. Ness, we will admit the patient for further care. This document was made in part using voice recognition software. While efforts are made to proofread this document, sound alike and grammatical errors may occur. Departure - Departure Disposition: 66 [facility] DC/Xfer Clinical Impression: Hepatitis, Hepatic infarction Pancreatitis Qualifiers: Chronicity: acute Pancreatitis type: unspecified pancreatitis type Acute pancreatitis complication: unspecified Qualified Code(s): K85.90 - Acute pancreatitis without necrosis or infection, unspecified Acetaminophen poisoning Qualifiers: Encounter type: initial encounter Injury intent: undetermined intent Qualified Code(s): T39.1X4A - Poisoning by 4-Aminophenol derivatives, undetermined, initial encounter Condition: Stable Discharge Date/Time: 04/26/23 17:10
[2023-04-26 12:19] LABS: BASOPHILS % (AUTO) 0.5 %; EOSINOPHILS % (AUTO) 0.5 %; HCT - HEMATOCRIT 35.5 % (37.0-47.0); HGB - HEMOGLOBIN 11.8 g/dL (12.0-16.0); LYMPHOCYTES # (AUTO) 0.4 10^3/uL (1.5-3.5); LYMPHOCYTES % (AUTO) 8.4 %; MEAN CORPUSCULAR HEMOGLOBIN 34.4 pg (27.0-31.0); MEAN CORPUSCULAR HGB CONC 33.2 g/dL (32.0-36.0); MEAN CORPUSCULAR VOLUME 103.5 fL (81.0-99.0); MEAN PLATELET VOLUME 11.7 fL (7.9-10.8); MONOCYTES # (AUTO) 0.1 10^3/uL (0.0-1.0); MONOCYTES % (AUTO) 1.6 %; NEUTROPHILS # (AUTO) 3.8 10^3/uL (1.5-6.6); NEUTROPHILS % (AUTO) 88.8 %; PLT - PLATELET COUNT 92 10^3/uL (130-450); RED BLOOD COUNT 3.43 10^6/uL (4.20-5.40); RED CELL DISTRIBUTION WIDTH 14.9 % (12.0-15.0); WHITE BLOOD COUNT 4.3 x10^3/uL (4.8-10.8)
[2023-04-26 12:28] LABS: ALBUMIN 3.2 g/dL (3.2-5.5)
[2023-04-26 12:38] LABS: ALBUMIN/GLOBULIN RATIO 1.3 (1.0-2.2); BILIRUBIN,TOTAL 0.9 mg/dL (0.2-1.0); CALCIUM 8.2 mg/dL (8.5-10.3); CREATININE 0.6 mg/dL (0.6-1.3); POTASSIUM 3.3 mmol/L (3.5-4.5); TOTAL PROTEIN 5.7 g/dL (6.4-8.9)
[2023-04-26 12:46] LABS: BILIRUBIN,URINE NEGATIVE (NEGATIVE); GLUCOSE, URINE (UA) NEGATIVE (NEGATIVE); KETONES,URINE (UA) NEGATIVE (NEGATIVE); LEUKOCYTE ESTERASE, URINE NEGATIVE (NEGATIVE); NITRITE,URINE NEGATIVE (NEGATIVE); OCCULT BLOOD,URINE NEGATIVE (NEGATIVE); PROTEIN,URINE NEGATIVE (NEGATIVE); UROBILINOGEN,URINE 0.2 (NORMAL) E.U./dL (NORMAL)
[2023-04-26 12:49] LABS: CLARITY,URINE CLEAR (CLEAR); HCG UR QUAL NEGATIVE
[2023-04-26 13:05] LABS: PARTIAL THROMBOPLASTIN TIME 25.2 secs (24.9-33.3)
[2023-04-26 13:09] LABS: INR 1.3 (0.8-1.2); PT - PROTHROMBIN TIME 14.6 secs (9.9-12.6)
[2023-04-26 13:22] LABS: ACETAMINOPHEN 9.5 ug/mL; MAGNESIUM 1.7 mg/dL (1.7-2.3); PHOSPHORUS 1.7 mg/dL (2.5-5.0)
[2023-04-26] MEDS ORDERED: MAGNESIUM SULFATE 2 GRAM 2 GM/50 ML BAG IV ONE (13:40)
[2023-04-26] MEDS ORDERED: iohexoL-300 100 ML VIAL IVP ONE (13:49)
[2023-04-26] MEDS ORDERED: ACETYLCYSTEINE IV ONE (14:30)
[2023-04-26] MEDS ORDERED: DEXTROSE 5% IV ONE (14:30)
--- NOTE | 2023-04-26 14:42 | CT Report ---
PROCEDURE: CT abdomen pelvis with contrast INDICATIONS: abd pain, elevated LFTs, cirrhosis TECHNIQUE: Helical axial CT of the abdomen and pelvis was obtained after intravenous contrast adminis tration and reformatted in multiple planes. Radiation dose reduction was achieved using automated exp osure control or adjustment of mA and/or kV according to patient size. COMPARISON: 02/04/2023 FINDINGS: Lower thorax: The lung bases are clear. Heart size normal. No hiatal hernia. Liver: Wedge-shaped hypoperfusion in the periphery of the liver probably related to phase of enhance ment. Differential would be hepatic infarcts. Liver is grossly enlarged measuring 23 cm. Multiple per isplenic collateral vessels noted. The portal vein is patent. Biliary system: No calcified cholelithiasis or pericholecystic inflammation. No evidence of bile du ct dilatation. Pancreas: Mild peripancreatic phlegmon is much improved in prior exam. There is now nodular hypodens ity within the tail the pancreas measuring 3.3 cm extending superiorly into the omental bursa with co ntact of the greater curvature of the stomach. Spleen: Appropriate in size. There is a peripheral wedge-shaped hypodensity as well near the upper p ole Adrenals: Normal morphology and density. Reproductive system: Intrauterine device in place Urinary system: Normal renal size and attenuation. No renal calculi, hydronephrosis, or solid mass p resent. Urinary bladder unremarkable. Gastrointestinal system: The bowel appears unremarkable with no evidence of bowel obstruction or inf lammation. The stomach appears unremarkable. Appendix: No findings to suggest acute appendicitis. Peritoneal spaces: No mesenteric or retroperitoneal adenopathy. No free air. No free fluid. Low- density nodule in the left pericolic gutter 1.6 cm, similar prior Vasculature: The IVC, aorta and iliac vasculature are unremarkable. Abdominal wall: Abdominal wall is intact without evidence of ventral or inguinal hernias. Musculoskeletal: Normal bone mineralization. No acute fractures. IMPRESSION: Persistent but improved peripancreatic phlegmon. Pancreatic hypodensity with enhancement extending goodman periorly into the lesser sac consistent with developing pseudocyst or less likely pancreatic necrosis . Hepatomegaly with wedge-shaped peripheral hypodensities in the liver and spleen may related to phase of enhancement or small peripheral infarcts. No change from the prior exam. Low-density nodule in the left paracolic gutter. Stable. Reviewed by: Iggy Perez MD on 04/26/2023 1:41 PM AKST Approved by: Iggy Perez MD on 04/26/2023 1:41 PM AKST Station ID: [id number]
[2023-04-26] MEDS ORDERED: PROMETHAZINE INJ 25 MG in SODIUM CHLORIDE 0.9% 50 ML IV STA (14:46)
[2023-04-26] MEDS ORDERED: PIPERACILLIN/TAZOBACTAM 4.5 GM in SODIUM CHLORIDE 0.9% MINIBAG 100 ML IV STA (16:03)
--- NOTE | 2023-04-26 16:07 | HISTORY & PHYSICAL EXAMINATION ---
Chief Complaint - Chief Complaint Chief Complaint: Abdominal pain History of Present Illness - Admitted From Admitted From:: ED - History Obtained From Records Reviewed: Yes History obtained from: Patient Exam Limitations: None - History of Present Illness HPI Comment/Other: Patient is a 37-year-old female with a past medical history of alcohol abuse, pancreatitis, MDD/anxiety, GERD who presented to the ED due to complaints of epigastric pain. She was previously evaluated a day prior where she underwent an ultrasound showing hepatomegaly, diffuse hepatic steatosis and unremarkable gallbladder and pancreas. She presented again today with similar but worsening epigastric abdominal pain. A CT abdomen/pelvis was performed showing evidence of a pancreatic phlegmon as well as a developing pancreatic pseudocyst. There was also hepatomegaly with a wedge-shaped infarct in the liver and spleen. Patient had a significant elevations in her liver enzymes. She reports she has been taking Tylenol at home but is unclear of the exact amount. The case was discussed with her steel barrel reamer at [facility] who recommended transfer if her INR elevates greater than 1.8 or she becomes encephalopathic to a liver transplant facility such as the [facility]. She was started on N-acetylcysteine and given a dose of Zosyn. During my evaluation, patient reports she has been free of alcohol for 3 months. She reports she has withdrawn in the past without seizures. Patient denies any fevers or chills. 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 Living Situation: With family Social History Notes: She previously drank alcohol on a consistent basis but now denies any use. She smokes a couple cigarettes a day and has been doing so for the past 16 years. She lives with 2 daughters, aged 7 & 10, and with her mother. 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 - Substance History Use: Uses substance without health or social issues: Tobacco - POLST Patient has POLST: No POLST Status: Full Code Meds/Allgy - Home Medications Home Medications: Ambulatory Orders Medication Instructions Recorded Confirmed Lipase/Protease/Amylase [Frank Ledbetter 24,000 unit PO TIDWM 07/30/22 02/04/23 24,000 Unit Capsule] Escitalopram Oxalate 20 mg PO DAILY 10/04/22 02/04/23 Prochlorperazine [Compazine] 5 mg PO Q6HR PRN 10/04/22 02/04/23 Ondansetron Odt [Zofran Odt] 4 mg TL Q6H PRN #10 tablet 11/10/22 02/04/23 Acetaminophen [Tylenol] 325 mg PO Q6H PRN 02/04/23 02/04/23 Magnesium Oxide [Mag Ox] 400 mg PO DAILYWM #30 tab 02/07/23 Pantoprazole [Protonix] 40 mg PO QDAC 30 Days #30 tab 02/07/23 oxyCODONE [Roxicodone] 10 mg PO Q4HR PRN #20 tab 02/07/23 HYDROcod/ACETAM 5/325 [[employer] 5/325] 1 ea PO Q6H PRN #14 tablet 04/25/23 Magnesium Oxide [Mag Ox] 800 mg PO DAILY #20 tablet 04/25/23 Ondansetron Odt [Zofran] 4 mg TL Q6H PRN #20 tablet 04/25/23 Promethazine Supp [Phenergan Supp] 25 mg [place] Q6H PRN #10 supp 04/25/23 Promethazine [Phenergan] 25 mg PO Q6H PRN #20 tab 04/25/23 - Allergies Allergies/Adverse Reactions: Allergies Allergy/AdvReac Type Severity Reaction Status Date / Time No Known Drug Allergies Allergy Verified 04/07/23 11:22 Review of Systems - Constitutional Constitutional: denies: Fatigue, Fever, Chills, Weakness, Poor appetite, Diaphoresis - Cardiovascular Cariovascular: denies: Irregular heart rate, Palpitations, Chest pain, Edema - Respiratory Respiratory: denies: Cough, Sputum production, Wheezing - Gastrointestinal Gastrointestinal: reports: Abdominal pain, Nausea. denies: Abdominal distention, Constipation, Diarrhea, Change in bowel habits, Vomiting, Poor appetite - All Other Systems All Other Systems: reports: Reviewed and negative Prior Level of Functionality: Independent Exam - Vital Signs Vital Signs: Vital Signs x48h Temp Pulse Resp BP Pulse Ox 04/26/23 15:00 100 18 125/89 H 96 04/26/23 11:25 36.2 C L 86 18 116/84 H 100 - Physical Exam General Appearance: positive: No acute distress, Alert Respiratory: positive: Chest non-tender, No respiratory distress, Breath sounds nml Cardiovascular: positive: Regular rate & rhythm, No murmur, No gallop Abdomen: positive: No organomegaly, Nml bowel sounds, No distention, Tenderness. negative: Guarding Skin: positive: Color nml, No rash, Warm, Dry Neurologic/Psychiatric: positive: Oriented x3, CN's nml (2-12) Sepsis Event Note (H) - Evaluation Current Stage of Sepsis: Ruled out Conclusion/Plan - Problem List (1) Hepatic infarction Conclusion/Plan: --Exact etiology of hepatic infarction is unclear. -- Serology pending to rule out hypercoagulability. Proteins C and S or antithrombin deficiency, factor V Leiden mutation, antiphospholipid syndrome. -- We will obtain echo to rule out infective endocarditis. Blood cultures are currently pending. --Patient denies any history of IV drug use. --She was given a dose of IV Zosyn. Continue to monitor for signs of infection and periodic abscess. -- Daily CMP and INR. If patient becomes encephalopathic or INR increases above 1.8 will transfer to a liver center. (2) Elevated liver enzymes Conclusion/Plan: --Liver enzymes elevated likely due to infarction. Tylenol overdose is also in the differential. --She is currently on N-acetylcysteine 21-hour protocol. --Continue to monitor liver enzymes and INR. -- Work-up for liver and splenic infarcts as above. -- Hepatitis panel pending. --Patient has been free ofalcohol for 3 months. I do not think this is alcoholic hepatitis. (3) Acetaminophen poisoning Conclusion/Plan: --Continue 21-hour N-acetylcysteine protocol. -- Unclear exactly how much Tylenol patient was taking but she was using it [id number] to manage her abdominal pain. --Holding all Tylenol while she is inpatient. Qualifiers: Encounter type: initial encounter Injury intent: undetermined intent Qualified Code(s): T39.1X4A - Poisoning by 4-Aminophenol derivatives, undetermined, initial encounter (4) Acute on chronic pancreatitis Conclusion/Plan: --Patient has had multiple admissions for pancreatitis in the past. She currently follows with gastroenterology at [facility]. --Continue home Creon. --CT scan does show developing pseudocyst. (5) Gastritis Conclusion/Plan: --Continue PPI. Qualifiers: Gastritis type: alcoholic (6) History of alcohol abuse Conclusion/Plan: --Patient has been alcohol free for 3 months. -- We will place on CIWA overnight. - Lab Results Fish Bones: 04/26/23 12:11 04/26/23 12:11 - Diagnostic Imaging Results Diagnostic Imaging Results: positive: Final report reviewed
[2023-04-26] MEDS ORDERED: LORazepam 2 MG/ML VIAL IVP PRN (16:46)
[2023-04-26 17:19] LABS: ALBUMIN 2.9 g/dL (3.2-5.5)
[2023-04-26 17:29] LABS: ALBUMIN/GLOBULIN RATIO 1.3 (1.0-2.2); BILIRUBIN,TOTAL 0.9 mg/dL (0.2-1.0); CALCIUM 7.5 mg/dL (8.5-10.3); CREATININE 0.5 mg/dL (0.6-1.3); TOTAL PROTEIN 5.2 g/dL (6.4-8.9)
[2023-04-26] MEDS: HYDROmorphone 0.5 MG/0.5 ML SYRINGE IVP PRN ×2 (17:44→20:51)
[2023-04-26] MEDS ORDERED: SODIUM PHOSPHATE 15 MMOL in SODIUM CHLORIDE 0.9% 250 ML IV ONE (18:14)
[2023-04-26] MEDS ORDERED: ACETYLCYSTEINE 7,200 MG in DEXTROSE 5% 1,000 ML IV ONE (18:30)
[2023-04-26] MEDS: oxyCODONE 5 MG TABLET PO PRN (19:06)
[2023-04-26] MEDS: POTASSIUM CHLORIDE 10 MEQ CAPSULE PO SCH (19:06)
[2023-04-26] MEDS: LACTATED RINGERS 1,000 ML IV SCH (19:13)
[2023-04-26] MEDS: SODIUM CHLORIDE FLUSH 0.9% 10 ML SYRINGE IVP SCH (19:14)
[2023-04-27] MEDS: HYDROmorphone 0.5 MG/0.5 ML SYRINGE IVP PRN ×7 (00:11→22:30)
[2023-04-27] MEDS: SODIUM CHLORIDE FLUSH 0.9% 10 ML SYRINGE IVP SCH ×3 (00:12→16:12)
[2023-04-27] MEDS: LACTATED RINGERS 1,000 ML IV SCH ×3 (00:16→11:10)
[2023-04-27] MEDS: ONDANSETRON ODT 4 MG TABLET TL PRN (00:21)
[2023-04-27] MEDS: POTASSIUM CHLORIDE 10 MEQ CAPSULE PO SCH (07:45)
[2023-04-27] MEDS: PANTOPRAZOLE 40 MG TABLET PO SCH (07:45)
[2023-04-27] MEDS: oxyCODONE 5 MG TABLET PO PRN ×3 (07:45→23:48)
[2023-04-27] MEDS ORDERED: SODIUM PHOSPHATE 15 MMOL in SODIUM CHLORIDE 0.9% 250 ML IV ONE (08:00)
[2023-04-27 08:50] LABS: BASOPHILS % (AUTO) 0.7 %; EOSINOPHILS # (AUTO) 0.2 10^3/uL (0.0-0.7); EOSINOPHILS % (AUTO) 5.7 %; HGB - HEMOGLOBIN 9.4 g/dL (12.0-16.0); LYMPHOCYTES # (AUTO) 0.7 10^3/uL (1.5-3.5); LYMPHOCYTES % (AUTO) 25.8 %; MEAN CORPUSCULAR HEMOGLOBIN 34.6 pg (27.0-31.0); MEAN CORPUSCULAR HGB CONC 33.6 g/dL (32.0-36.0); MEAN CORPUSCULAR VOLUME 102.9 fL (81.0-99.0); MEAN PLATELET VOLUME 11.3 fL (7.9-10.8); MONOCYTES # (AUTO) 0.1 10^3/uL (0.0-1.0); MONOCYTES % (AUTO) 4.9 %; NEUTROPHILS # (AUTO) 1.8 10^3/uL (1.5-6.6); NEUTROPHILS % (AUTO) 62.9 %; PLT - PLATELET COUNT 81 10^3/uL (130-450); RED BLOOD COUNT 2.72 10^6/uL (4.20-5.40); RED CELL DISTRIBUTION WIDTH 15.1 % (12.0-15.0); WHITE BLOOD COUNT 2.8 x10^3/uL (4.8-10.8)
[2023-04-27 08:57] LABS: INR 1.4 (0.8-1.2); PT - PROTHROMBIN TIME 15.3 secs (9.9-12.6)
[2023-04-27] MEDS ORDERED: MULTIVITAMIN 10 ML, THIAMINE INJ 100 MG, FOLIC ACID INJ 1 MG in SODIUM CHLORIDE 0.9% 1,... IV SCH (09:00)
[2023-04-27] MEDS: ENOXAPARIN 40 MG/0.4 ML SYRINGE SUBQ SCH (09:01)
[2023-04-27 09:03] LABS: ALBUMIN 2.4 g/dL (3.2-5.5)
[2023-04-27 09:07] LABS: ALBUMIN/GLOBULIN RATIO 1.3 (1.0-2.2); ALKALINE PHOSPHATASE 158 IU/L (42-121); ALT ALANINE AMINOTRANSFERASE 320 IU/L (10-60); AST ASPARTATE AMINOTRANSFERASE 726 IU/L (10-42); BILIRUBIN,TOTAL 0.8 mg/dL (0.2-1.0); BUN - BLOOD UREA NITROGEN < 2 mg/dL (6-20); CALCIUM 7.4 mg/dL (8.5-10.3); CARBON DIOXIDE - CO2 26 mmol/L (21-32); CHLORIDE 104 mmol/L (101-111); CREATININE 0.4 mg/dL (0.6-1.3); GFR - MDRD 181 (>89); GLUCOSE 130 mg/dL (74-104); POTASSIUM 3.1 mmol/L (3.5-4.5); SODIUM 133 mmol/L (135-145); TOTAL PROTEIN 4.3 g/dL (6.4-8.9)
[2023-04-27 09:09] LABS: SLIDE REVIEW? Indicated
[2023-04-27 09:11] LABS: PLATELET ESTIMATE, MANUAL DECREASED (<130,000) (NORMAL); PLATELET MORPHOLOGY NORMAL APPEARANCE (NORMAL); RBC MORPHOLOGY (MULTIPLE) 1+ ANISOCYTOSIS (NORMAL); WBC MORPHOLOGY (MULTIPLE) NORMAL APPEARANCE (NORMAL)
--- NOTE | 2023-04-27 10:45 | PHARMACY PROGRESS NOTE ---
- Best Possible Medication History Admit Date and Time: 04/26/23 1551 Processed by: Pharmacy Medication History completed: Yes Patient Interview: Completed Secondary Source(s): Pharmacy records, Insurance records, Previous admit records As the person ultimately responsible for medication therapy, providers are able to order a medication from an existing home medication list in [facility] via the "Reconcile Routine" prior to Confirmation of that medication by office support assistant. Such practice is discouraged except when the physician, in their clinical judgment, deems that a medical need exists for a medication without regard to previous use.
[2023-04-27 11:08] LABS: HBsAG SCREEN Negative (Negative); HCV AB Non Reactive (Non Reactive); HEPATITIS B CORE IGM AB Negative (Negative)
[2023-04-27] MEDS ORDERED: CITRIC ACID PO PRN (11:13)
[2023-04-27] MEDS ORDERED: SODIUM BICARBONATE PO PRN (11:13)
--- NOTE | 2023-04-27 11:14 | PROVIDER PROGRESS NOTE ---
Assessment/Plan - Problem List (1) Hepatic infarction Assessment/Plan: (1) Hepatic infarction Conclusion/Plan: --Exact etiology of hepatic infarction is unclear. -- Serology pending to rule out hypercoagulability. Proteins C and S or antithrombin deficiency, factor V Leiden mutation, antiphospholipid syndrome. -- We will obtain echo to rule out infective endocarditis. Blood cultures are currently pending. --Patient denies any history of IV drug use. --She was given a dose of IV Zosyn. Continue to monitor for signs of infection and periodic abscess. -- Daily CMP and INR. If patient becomes encephalopathic or INR increases above 1.8 will transfer to a liver center. INR today was 1.4. --Live enzymes are trending downward. --Continue prophylactic Lovenox given her infarcts despite downtrending platelet count. Would recommend holding Lovenox if platelet under 20k or if she starts bleeding. (2) Elevated liver enzymes Conclusion/Plan: --Liver enzymes elevated likely due to infarction. Tylenol overdose is also in the differential. --She is currently on N-acetylcysteine 21-hour protocol. --Continue to monitor liver enzymes and INR. -- Work-up for liver and splenic infarcts as above. -- Hepatitis panel pending. --Patient has been free of alcohol for 3 months. I do not think this is alcoholic hepatitis therefore will hold off on giving prednisolone. (3) Acetaminophen poisoning Conclusion/Plan: --Continue 21-hour N-acetylcysteine protocol. -- Unclear exactly how much Tylenol patient was taking but she was using it [id number] to manage her abdominal pain. --Holding all Tylenol while she is inpatient. Qualifiers: Encounter type: initial encounter Injury intent: undetermined intent Qualified Code(s): T39.1X4A - Poisoning by 4-Aminophenol derivatives, undetermined, initial encounter (4) Acute on chronic pancreatitis Conclusion/Plan: --Patient has had multiple admissions for pancreatitis in the past. She currently follows with gastroenterology at [facility]. --Continue home Creon. --CT scan does show developing pseudocyst. (5) Gastritis Conclusion/Plan: --Continue PPI. Qualifiers: Gastritis type: alcoholic (6) History of alcohol abuse Conclusion/Plan: --Patient has been alcohol free for 3 months. --Not scoring on CIWA, will discontinue. (3) Pancytopenia Assessment/Plan: --Pancytopenia likely secondary to bone marrow suppression from chronic alcohol use. -- We will order iron panel with ferritin, folate, B12. -- May require an outpatient hematology evaluation if no etiology is uncovered. --Transfuse if hemoglobin under 7. (4) Acetaminophen poisoning Qualifiers: Encounter type: initial encounter Injury intent: undetermined intent Qualified Code(s): T39.1X4A - Poisoning by 4-Aminophenol derivatives, undetermined, initial encounter (6) Gastritis Qualifiers: Gastritis type: alcoholic - Current Meds Current Meds: Current Medications Generic Name Dose Route Start Last Admin Trade Name Freq PRN Reason Stop Dose Admin Enoxaparin Sodium 40 mg 04/27/23 09:00 04/27/23 09:01 Enoxaparin 40 Mg/0.4 Ml Syringe SUBQ 40 mg DAILY LUCY Administration Hydromorphone HCl 0.5 mg 04/26/23 15:51 04/27/23 09:01 Hydromorphone 0.5 Mg/0.5 Ml Syringe IVP 0.5 mg Q2H PRN Administration Pain 8 to 10 Multivitamins 10 ml/ Thiamine 1,011.2 mls @ 100 mls/hr 04/27/23 09:00 04/27 08:39 HCl 100 mg/ Folic Acid 1 mg/ IV 04/27/23 19:07 100 mls/hr Sodium Chloride ONCE LUCY Administration Sodium Phosphate 15 mmol/ 255 mls @ 41 mls/hr 04/27/23 08:00 04/27/23 09:37 Sodium Chloride IV 04/27/23 14:13 41 mls/hr ONCE ONE Administration Ondansetron HCl 4 mg 04/26/23 15:51 04/27/23 00:21 Ondansetron Odt 4 Mg Tablet TL 4 mg Q6HR PRN Administration Nausea / Vomiting Oxycodone HCl 5 mg 04/26/23 15:51 04/27/23 07:45 Oxycodone 5 Mg Tablet PO 5 mg Q4HR PRN Administration Pain 5 to 7 Pantoprazole Sodium 40 mg 04/27/23 07:00 04/27/23 07:45 Pantoprazole 40 Mg Tablet PO 40 mg QDAC LUCY Administration Potassium Chloride 40 meq 04/26/23 19:00 04/27/23 07:45 Potassium Chloride 10 Meq Capsule PO 40 meq DAILYWM LUCY Administration Sodium Chloride 10 ml 04/26/23 17:00 04/27/23 09:37 Sodium Chloride Flush 0.9% 10 Ml Syringe IVP 10 ml 0100,0900,1700 LUCY Administration - Lab Result Fish Bone Diagrams: 04/27/23 08:38 04/27/23 08:38 - Additional Planning Condition/Complexity: Improved My Orders: My Active Orders 04/26/23 15:51 Activity Orders [RC] Q2HR IO [RC] IOSHIFT Incentive Spirometry - RT [RC] TID Initiate Bowel Care Protocol [RC] .protocol Initiate Line Care Protocol [RC] QSHIFT Initiate Personal Care Protoco [RC] .protocol Oxygen Therapy [RC] .PRN Telemetry (24 Hour) [RC] Q4HR Vital Signs [RC] 0800,1600,0000 HYDROmorphone 0.5MG SYRINGE [Dilaudid 0.5MG Syringe] 0.5 mg IVP Q2H PRN Ondansetron Odt [Zofran Odt] 4 mg TL Q6HR PRN Sodium Chloride Flush 0.9% [Normal Saline Flush 0.9%] 10 ml IVP PRN PRN oxyCODONE [Roxicodone] 5 mg PO Q4HR PRN Code Status [OTHERS] Routine Condition of Patient [OTHERS] Routine DVT Prophylaxis [OTHERS] Routine 04/26/23 16:46 CIWA - AR Score Card [RC] Q4HR LORazepam INJ [Ativan Inj (Vial)] 1 mg IVP Q30M PRN 04/26/23 17:00 Sodium Chloride Flush 0.9% [Normal Saline Flush 0.9%] 10 ml IVP 0100,0900,1700 04/26/23 17:32 Echo Transthoracic Complete [ECHO] Routine 04/26/23 17:54 Blood Culture [CULTURE, BLOOD #1] [RM] Routine 04/26/23 19:00 Potassium Chloride [Micro-K] 40 meq PO DAILYWM 04/26/23 19:04 oxyCODONE [Roxicodone] 5 - 10 mg PO Q4HR PRN 04/27/23 07:00 Pantoprazole [Protonix] 40 mg PO QDAC 04/27/23 08:00 Sodium Phosphate 15 mmol Sodium Chloride 0.9% [Normal Saline 0.9%] 250 ml IV ONCE 04/27/23 08:38 ANTIPHOSPHOLIPID SYNDROME PROF [REFLAB] DAILY ANTITHROMBIN ACTIVITY [REFLAB] DAILY Blood Culture [CULTURE, BLOOD #2] [] DAILY FACTOR V LEIDEN MUTATION [REFLAB] DAILY HEPATITIS PANEL ACUTE [REFLAB] DAILY PROTEIN C-FUNCTIONAL [REFLAB] DAILY PROTEIN S-FUNCTIONAL [REFLAB] DAILY 04/27/23 09:00 Enoxaparin [Lovenox] 40 mg SUBQ DAILY Multivitamin [Infuvite] 10 ml Thiamine Inj [Vitamin B-1 Inj] 100 mg Folic Acid Inj [Folic Acid] 1 mg Sodium Chloride 0.9% [Normal Saline 0.9%] 1,000 ml IV ONCE 04/27/23 11:05 Sodium Bicarbonate/Citric Acid [Merly-Danube Heartburn Tab Eff] 1 each PO BID PRN 04/27/23 Lunch Full Liquid Diet [DIET] 04/27/23 12:00 Lipase/Protease/Amylase [Frank Dr 24,000 Unit Capsule] 24,000 unit PO TIDWM 04/28/23 05:00 HEMOGLOBIN A1c% [CHEM] DAILYLAB 04/28/23 09:00 CBC - COMP BLD CT W/AUTO DIFF [HEME] DAILY COMPREHENSIVE METABOLIC PANEL [CHEM] DAILY FERRITIN [CHEM] DAILY FOLATE [CHEM] DAILY IRON TIBC PANEL [CHEM] DAILY PT WITH INR [COAG] DAILY VITAMIN B12 [CHEM] DAILY 04/29/23 09:00 CBC - COMP BLD CT W/AUTO DIFF [HEME] DAILY COMPREHENSIVE METABOLIC PANEL [CHEM] DAILY PT WITH INR [COAG] DAILY 04/30/23 09:00 CBC - COMP BLD CT W/AUTO DIFF [HEME] DAILY COMPREHENSIVE METABOLIC PANEL [CHEM] DAILY PT WITH INR [COAG] DAILY 05/01/23 09:00 CBC - COMP BLD CT W/AUTO DIFF [HEME] DAILY COMPREHENSIVE METABOLIC PANEL [CHEM] DAILY PT WITH INR [COAG] DAILY 05/02/23 09:00 CBC - COMP BLD CT W/AUTO DIFF [HEME] DAILY COMPREHENSIVE METABOLIC PANEL [CHEM] DAILY PT WITH INR [COAG] DAILY 05/03/23 09:00 CBC - COMP BLD CT W/AUTO DIFF [HEME] DAILY COMPREHENSIVE METABOLIC PANEL [CHEM] DAILY PT WITH INR [COAG] DAILY Plan Discussed with:: Patient, Mother Subjective - Subjective Patient Reports: Abdominal Pain (No fever or chills. Continues to have abdominal pain. Will advance diet. Labs improving. No encephalopathy. INR 1.4.) Objective Vital Signs: Vital Signs - 24 hr 04/26/23 04/26/23 04/26/23 11:25 15:00 17:20 Temperature 36.2 C L 37.0 C Heart Rate 86 100 Heart Rate [ 82 Brachial] Respiratory 18 18 20 Rate Blood Pressure 116/84 H 125/89 H Blood Pressure 119/70 [Right Brachial artery] O2 Saturation 100 96 100 04/26/23 04/26/23 04/27/23 20:56 23:55 05:58 Temperature 37.1 C 37.2 C 37.0 C Heart Rate Heart Rate [ 87 82 71 Brachial] Respiratory 20 20 19 Rate Blood Pressure Blood Pressure 114/74 120/69 112/73 [Right Brachial artery] O2 Saturation 96 97 96 04/27/23 07:37 Temperature 36.9 C Heart Rate Heart Rate [ 77 Brachial] Respiratory 16 Rate Blood Pressure Blood Pressure 109/74 [Right Brachial artery] O2 Saturation 96 Oxygen O2 Source Room air I&O (Last 24 Hrs): Intake and Output Totals x24h 04/25/23 04/26/23 04/27/23 23:59 23:59 23:59 Intake Total 3934.750 2763.333 Balance 3934.750 2763.333 General: Alert, Oriented x3, Cooperative, No acute distress Neuro: Alert, CN 2-12 Grossly Intact, Oriented Times 3 Cardiovascular: Regular rate, Normal S1, Normal S2, No murmurs Respiratory: Chest non-tender, No respiratory distress, Breath sounds nml Abdomen: Normal bowel sounds, Soft (UQ tenderness.), No hepatospenomegaly, No masses Extremities: No clubbing, No cyanosis, No edema, Normal pulses, No tenderness/swelling Skin: No rashes (No jaundice.), No breakdown, No significant lesion - Results Results: Laboratory Results WBC 2.8 x10^3/uL (4.8-10.8) L 04/27/23 08:38 RBC 2.72 10^6/uL (4.20-5.40) L 04/27/23 08:38 Hgb 9.4 g/dL (12.0-16.0) L 04/27/23 08:38 Hct 28.0 % (37.0-47.0) L 04/27/23 08:38 MCV 102.9 fL (81.0-99.0) H 04/27/23 08:38 MCH 34.6 pg (27.0-31.0) H 04/27/23 08:38 MCHC 33.6 g/dL (32.0-36.0) 04/27/23 08:38 RDW 15.1 % (12.0-15.0) H 04/27/23 08:38 Plt Count 81 10^3/uL (130-450) L 04/27/23 08:38 MPV 11.3 fL (7.9-10.8) H 04/27/23 08:38 Neut # (Auto) 1.8 10^3/uL (1.5-6.6) 04/27/23 08:38 Lymph # (Auto) 0.7 10^3/uL (1.5-3.5) L 04/27/23 08:38 Page # (Auto) 0.1 10^3/uL (0.0-1.0) 04/27/23 08:38 Eos # (Auto) 0.2 10^3/uL (0.0-0.7) 04/27/23 08:38 Baso # (Auto) 0.0 10^3/uL (0.0-0.1) 04/27/23 08:38 Absolute Nucleated RBC 0.00 x10^3/uL 04/27/23 08:38 Nucleated RBC % 0.0 /100WBC 04/27/23 08:38 Manual Slide Review Indicated 04/27/23 08:38 WBC Morphology NORMAL APPEARANCE (NORMAL) 04/27/23 08:38 Platelet Estimate DECREASED (<130,000) (NORMAL) 04/27/23 08:38 Platelet Morphology NORMAL APPEARANCE (NORMAL) 04/27/23 08:38 RBC Morph Micro Appear 1+ ANISOCYTOSIS (NORMAL) 04/27/23 08:38 PT 15.3 secs (9.9-12.6) H 04/27/23 08:38 INR 1.4 (0.8-1.2) H 04/27/23 08:38 APTT 25.2 secs (24.9-33.3) 04/26/23 12:11 Sodium 133 mmol/L (135-145) L 04/27/23 08:38 Potassium 3.1 mmol/L (3.5-4.5) L 04/27/23 08:38 Chloride 104 mmol/L (101-111) 04/27/23 08:38 Carbon Dioxide 26 mmol/L (21-32) 04/27/23 08:38 Anion Gap 3.0 (6-13) L 04/27/23 08:38 BUN < 2 mg/dL (6-20) L 04/27/23 08:38 Creatinine 0.4 mg/dL (0.6-1.3) L 04/27/23 08:38 Estimated GFR (MDRD) 181 (>89) 04/27/23 08:38 Glucose 130 mg/dL (74-104) H 04/27/23 08:38 Calcium 7.4 mg/dL (8.5-10.3) L 04/27/23 08:38 Phosphorus 1.7 mg/dL (2.5-5.0) L 04/26/23 12:11 Magnesium 1.7 mg/dL (1.7-2.3) 04/26/23 12:11 Total Bilirubin 0.8 mg/dL (0.2-1.0) 04/27/23 08:38 AST 726 IU/L (10-42) H 04/27/23 08:38 ALT 320 IU/L (10-60) H 04/27/23 08:38 Alkaline Phosphatase 158 IU/L (42-121) H 04/27/23 08:38 Lactate Dehydrogenase > 1200 IU/L (140-271) H 04/26/23 12:11 Total Protein 4.3 g/dL (6.4-8.9) L 04/27/23 08:38 Albumin 2.4 g/dL (3.2-5.5) L 04/27/23 08:38 Globulin 1.9 g/dL (2.1-4.2) L 04/27/23 08:38 Albumin/Globulin Ratio 1.3 (1.0-2.2) 04/27/23 08:38 Lipase 59 U/L (11-82) 04/26/23 12:11 Vitamin B12 1300 pg/mL (180-914) H 04/26/23 12:11 Folate 15.1 ng/mL (5.90 - >24.8) 04/26/23 12:11 Urine Color YELLOW 04/26/23 12:20 Urine Clarity CLEAR (CLEAR) 04/26/23 12:20 Urine pH 6.0 PH (5.0-7.5) 04/26/23 12:20 Ur Specific [place] <=1.005 (1.002-1.030) 04/26/23 12:20 Urine Protein NEGATIVE mg/dL (NEGATIVE) 04/26/23 12:20 Urine Glucose (UA) NEGATIVE mg/dL (NEGATIVE) 04/26/23 12:20 Urine Ketones NEGATIVE mg/dL (NEGATIVE) 04/26/23 12:20 Urine Occult Blood NEGATIVE (NEGATIVE) 04/26/23 12:20 Urine Nitrite NEGATIVE (NEGATIVE) 04/26/23 12:20 Urine Bilirubin NEGATIVE (NEGATIVE) 04/26/23 12:20 Urine Urobilinogen 0.2 (NORMAL) E.U./dL (NORMAL) 04/26/23 12:20 Ur Leukocyte Esterase NEGATIVE (NEGATIVE) 04/26/23 12:20 Ur Microscopic Review NOT INDICATED 04/26/23 12:20 Urine Culture Comments NOT INDICATED 04/26/23 12:20 Urine HCG, Qual NEGATIVE 04/26/23 12:20 Acetaminophen 9.5 ug/mL 04/26/23 12:11 Ethyl Alcohol < 10.0 mg/dL 04/26/23 12:11 Hepatitis A IgM Ab Negative (Negative) 04/26/23 12:11 Hep Bs Antigen Negative (Negative) 04/26/23 12:11 Hep B Core IgM Ab Negative (Negative) 04/26/23 12:11 Hepatitis C Antibody Non Reactive (Non Reactive) 04/26/23 12:11 Hepatitis C Interp Comment (.) 04/26/23 12:11 - Procedures Procedures: Procedures INSERTION OF INFUSION DEV INTO SUP VENA CAVA, PERC APPROACH (04/09/22) INTRODUCTION OF NUTRITIONAL INTO PERIPH VEIN, PERC APPROACH (04/09/22) MANUAL ASSIST DELIV NEC (11/14/14) Sepsis Event Note (H) - Evaluation Current Stage of Sepsis: Ruled out Current Medications - Current Medications Current Medications: Active Medications Generic Name Dose Route Start Last Admin Trade Name Freq PRN Reason Stop Dose Admin Lipase/Protease/Amylase 5 cap 04/27/23 12:00 Lipase/Protease/Amylase Capsule PO TIDWM LUCY Enoxaparin Sodium 40 mg 04/27/23 09:00 04/27/23 09:01 Enoxaparin 40 Mg/0.4 Ml Syringe SUBQ 40 mg DAILY LUCY Administration Hydromorphone HCl 0.5 mg 04/26/23 15:51 04/27/23 09:01 Hydromorphone 0.5 Mg/0.5 Ml Syringe IVP 0.5 mg Q2H PRN Administration Pain 8 to 10 Multivitamins 10 ml/ Thiamine 1,011.2 mls @ 100 mls/hr 04/27/23 09:00 04/27/23 08:39 HCl 100 mg/ Folic Acid 1 mg/ IV 04/27/23 19:07 100 mls/hr Sodium Chloride ONCE LUCY Administration Sodium Phosphate 15 mmol/ 255 mls @ 41 mls/hr 04/27/23 08:00 04/27/23 09:37 Sodium Chloride IV 04/27/23 14:13 41 mls/hr ONCE ONE Administration Ondansetron HCl 4 mg 04/26/23 15:51 04/27/23 00:21 Ondansetron Odt 4 Mg Tablet TL 4 mg Q6HR PRN Administration Nausea / Vomiting Oxycodone HCl 5 mg 04/26/23 15:51 04/27/23 07:45 Oxycodone 5 Mg Tablet PO 5 mg Q4HR PRN Administration Pain 5 to 7 Oxycodone HCl 5 - 10 mg 04/26/23 19:04 Oxycodone 5 Mg Tablet PO Q4HR PRN Moderate Pain (Level 4-6) Pantoprazole Sodium 40 mg 04/27/23 07:00 04/27/23 07:45 Pantoprazole 40 Mg Tablet PO 40 mg QDAC LUCY Administration Sodium Bicarbonate/ 1 each 04/27/23 11:13 Citric Acid [Merly- PO Danube Heartburn BID PRN Tab Eff Heartburn Potassium Chloride 40 meq 04/26/23 19:00 04/27/23 07:45 Potassium Chloride 10 Meq Capsule PO 40 meq DAILYWM LUCY Administration Sodium Chloride 10 ml 04/26/23 15:51 Sodium Chloride Flush 0.9% 10 Ml Syringe IVP PRN PRN NEEDED PER PROVIDER ORDERS Sodium Chloride 10 ml 04/26/23 17:00 04/27/23 09:37 Sodium Chloride Flush 0.9% 10 Ml Syringe IVP 10 ml 0100,0900,1700 LUCY Administration Lipase/Protease/Amylase [Frank [place] 24,000 Unit Capsule] 24,000 unit PO TIDWM 07/30/22 Acetaminophen [Tylenol] 2,000 mg PO BID 04/27/23 Sodium Bicarbonate/Citric Acid [Merly-Danube Heartburn Tab Eff] 1 each PO BID PRN 04/27/23
[2023-04-27] MEDS: LIPASE/PROTEASE/AMYLASE CAPSULE PO SCH ×2 (11:55→17:12)
[2023-04-27] MEDS: SODIUM CHLORIDE FLUSH 0.9% 10 ML SYRINGE IVP PRN (17:13)
[2023-04-28] MEDS: HYDROmorphone 0.5 MG/0.5 ML SYRINGE IVP PRN ×2 (01:09→07:03)
[2023-04-28] MEDS: SODIUM CHLORIDE FLUSH 0.9% 10 ML SYRINGE IVP SCH ×3 (02:22→17:09)
[2023-04-28] MEDS: oxyCODONE 5 MG TABLET PO PRN ×4 (05:22→18:41)
[2023-04-28] MEDS: SODIUM CHLORIDE FLUSH 0.9% 10 ML SYRINGE IVP PRN (07:04)
[2023-04-28] MEDS: PANTOPRAZOLE 40 MG TABLET PO SCH (07:04)
[2023-04-28 07:48] LABS: ESTIMATED AVERAGE GLUCOSE 108 mg/dL (70-100); HEMOGLOBIN A1c% 5.4 % (4.27-6.07)
[2023-04-28] MEDS: POTASSIUM CHLORIDE 10 MEQ CAPSULE PO SCH (08:04)
[2023-04-28] MEDS: LIPASE/PROTEASE/AMYLASE CAPSULE PO SCH ×3 (08:07→17:09)
[2023-04-28] MEDS: ENOXAPARIN 40 MG/0.4 ML SYRINGE SUBQ SCH (08:08)
[2023-04-28] MEDS: HYDROmorphone 1 MG/ML CARPUJECT IVP PRN ×6 (08:20→23:10)
[2023-04-28 09:05] LABS: BASOPHILS % (AUTO) 0.6 %; EOSINOPHILS # (AUTO) 0.2 10^3/uL (0.0-0.7); EOSINOPHILS % (AUTO) 6.6 %; HCT - HEMATOCRIT 29.8 % (37.0-47.0); LYMPHOCYTES # (AUTO) 1.1 10^3/uL (1.5-3.5); LYMPHOCYTES % (AUTO) 34.1 %; MEAN CORPUSCULAR HEMOGLOBIN 35.1 pg (27.0-31.0); MEAN CORPUSCULAR HGB CONC 33.6 g/dL (32.0-36.0); MEAN CORPUSCULAR VOLUME 104.6 fL (81.0-99.0); MONOCYTES # (AUTO) 0.3 10^3/uL (0.0-1.0); MONOCYTES % (AUTO) 7.6 %; NEUTROPHILS # (AUTO) 1.7 10^3/uL (1.5-6.6); NEUTROPHILS % (AUTO) 50.8 %; PLT - PLATELET COUNT 90 10^3/uL (130-450); RED BLOOD COUNT 2.85 10^6/uL (4.20-5.40); RED CELL DISTRIBUTION WIDTH 15.9 % (12.0-15.0); WHITE BLOOD COUNT 3.3 x10^3/uL (4.8-10.8)
[2023-04-28 09:12] LABS: INR 1.1 (0.8-1.2); PT - PROTHROMBIN TIME 12.3 secs (9.9-12.6)
[2023-04-28 09:19] LABS: % IRON SATURATION 18 % (20-50); ALBUMIN 2.6 g/dL (3.2-5.5); IRON 27 ug/dL (50-212); TOTAL IRON BINDING CAPACITY 147 ug/dL (250-450); TRANSFERRIN 105 mg/dL (203-362)
[2023-04-28 09:28] LABS: ALBUMIN/GLOBULIN RATIO 1.3 (1.0-2.2); ALKALINE PHOSPHATASE 222 IU/L (42-121); ALT ALANINE AMINOTRANSFERASE 234 IU/L (10-60); AST ASPARTATE AMINOTRANSFERASE 217 IU/L (10-42); BILIRUBIN,TOTAL 0.7 mg/dL (0.2-1.0); BUN - BLOOD UREA NITROGEN < 2 mg/dL (6-20); CALCIUM 7.9 mg/dL (8.5-10.3); CARBON DIOXIDE - CO2 26 mmol/L (21-32); CHLORIDE 107 mmol/L (101-111); CREATININE 0.4 mg/dL (0.6-1.3); GFR - MDRD 181 (>89); GLUCOSE 130 mg/dL (74-104); POTASSIUM 3.3 mmol/L (3.5-4.5); SODIUM 136 mmol/L (135-145); TOTAL PROTEIN 4.6 g/dL (6.4-8.9)
[2023-04-28 10:07] LABS: FERRITIN 368.6 ng/mL (11.0-306.8)
--- NOTE | 2023-04-28 11:30 | PROVIDER PROGRESS NOTE ---
Assessment/Plan - Problem List (1) Hepatic infarction Assessment/Plan: (1) Hepatic infarction Conclusion/Plan: --Exact etiology of hepatic infarction is unclear. -- Serology pending to rule out hypercoagulability. Proteins C and S or antithrombin deficiency, factor V Leiden mutation, antiphospholipid syndrome. -- We will obtain echo to rule out infective endocarditis. Blood cultures are currently pending. Showing no growth to date. --Patient denies any history of IV drug use. --She was given a dose of IV Zosyn. Continue to monitor for signs of infection and periodic abscess. -- Daily CMP and INR. If patient becomes encephalopathic or INR increases above 1.8 will transfer to a liver center per GI recommendations. INR today was 1.1. --Live enzymes are trending downward. --Continue prophylactic Lovenox given her infarcts despite downtrending platelet count. Would recommend holding Lovenox if platelet under 20k or if she starts bleeding. (2) Elevated liver enzymes Conclusion/Plan: --Liver enzymes elevated likely due to infarction. Tylenol overdose is also in the differential. --Completed N-acetylcysteine 21-hour protocol. --Continue to monitor liver enzymes and INR. -- Work-up for liver and splenic infarcts as above. -- Hepatitis panel pending. --Patient reports she has been free of alcohol for 3 months. I do not think this is alcoholic hepatitis therefore will hold off on giving prednisolone. (3) Acetaminophen poisoning Conclusion/Plan: --Completed 21-hour N-acetylcysteine protocol. -- Unclear exactly how much Tylenol patient was taking but she was using it [id number] to manage her abdominal pain. --Holding all Tylenol while she is inpatient. Qualifiers: Encounter type: initial encounter Injury intent: undetermined intent Qualified Code(s): T39.1X4A - Poisoning by 4-Aminophenol derivatives, undetermined, initial encounter (4) Acute on chronic pancreatitis Conclusion/Plan: --Patient has had multiple admissions for pancreatitis in the past. She currently follows with gastroenterology at [facility]. --Continue home Creon. --CT scan does show developing pseudocyst. (5) Gastritis Conclusion/Plan: --Continue PPI. Qualifiers: Gastritis type: alcoholic (6) History of alcohol abuse Conclusion/Plan: --Patient has been alcohol free for 3 months per her report. Level negative in ED. --Not scoring on CIWA, will discontinue. (3) Pancytopenia Assessment/Plan: --Pancytopenia likely secondary to bone marrow suppression from chronic alcohol use. -- Iron panel suggestive of iron deficiency. Ferritin is elevated but likely due to inflammation. Will start daily Fe supplement. -- May require an outpatient hematology evaluation if no etiology is uncovered. --Transfuse if hemoglobin under 7. Dispo: Continue pain control and monitoring of liver enzymes. Will have a TTE to rule out endorcarditis tomorrow. Blood cultures remain negative. (4) Acetaminophen poisoning Qualifiers: Encounter type: initial encounter Injury intent: undetermined intent Qualified Code(s): T39.1X4A - Poisoning by 4-Aminophenol derivatives, undetermined, initial encounter (6) Gastritis Qualifiers: Gastritis type: alcoholic - Current Meds Current Meds: Current Medications Generic Name Dose Route Start Last Admin Trade Name Freq PRN Reason Stop Dose Admin Lipase/Protease/Amylase 5 cap 04/27/23 12:00 04/28/23 08:07 Lipase/Protease/Amylase Capsule PO 5 cap TIDWM LUCY Administration Enoxaparin Sodium 40 mg 04/27/23 09:00 04/28/23 08:08 Enoxaparin 40 Mg/0.4 Ml Syringe SUBQ 40 mg DAILY LUCY Administration Hydromorphone HCl 1 mg 04/28/23 08:04 04/28/23 10:18 Hydromorphone 1 Mg/Ml Carpuject IVP 1 mg Q2H PRN Administration Pain 8 to 10 Ondansetron HCl 4 mg 04/26/23 15:51 04/27/23 00:21 Ondansetron Odt 4 Mg Tablet TL 4 mg Q6HR PRN Administration Nausea / Vomiting Oxycodone HCl 5 - 10 mg 04/26/23 19:04 04/28/23 10:16 Oxycodone 5 Mg Tablet PO 5 mg Q4HR PRN Administration Moderate Pain (Level 4-6) Pantoprazole Sodium 40 mg 04/27/23 07:00 04/28/23 07:04 Pantoprazole 40 Mg Tablet PO 40 mg QDAC LUCY Administration Potassium Chloride 40 meq 04/26/23 19:00 04/28/23 08:04 Potassium Chloride 10 Meq Capsule PO 40 meq DAILYWM LUCY Administration Sodium Chloride 10 ml 04/26/23 15:51 04/28/23 07:04 Sodium Chloride Flush 0.9% 10 Ml Syringe IVP 10 ml PRN PRN Administration NEEDED PER PROVIDER ORDERS Sodium Chloride 10 ml 04/26/23 17:00 04/28/23 08:08 Sodium Chloride Flush 0.9% 10 Ml Syringe IVP 10 ml 0100,0900,1700 LUCY Administration - Lab Result Fish Bone Diagrams: 04/28/23 08:56 04/28/23 08:56 - Diagnostic Imaging Results Diagnostic Imaging Results: Final report reviewed - Additional Planning Condition/Complexity: Improved My Orders: My Active Orders 04/27/23 11:13 Patient Own Med 1 each PO BID PRN 04/27/23 12:00 Lipase/Protease/Amylase [Pancrelipase Dr 5,000/17,000/24,000 Custodial] 5 cap PO TIDWM 04/27/23 Dinner Low Fat Diet [DIET] 04/28/23 08:04 HYDROmorphone 1MG CARP [Dilaudid 1Mg Carp] 1 mg IVP Q2H PRN 04/28/23 11:00 Nicotine 7 mg Patch [Nicoderm] 1 patch TOP DAILY 04/29/23 09:00 CBC - COMP BLD CT W/AUTO DIFF [HEME] DAILY COMPREHENSIVE METABOLIC PANEL [CHEM] DAILY PT WITH INR [COAG] DAILY 04/30/23 09:00 CBC - COMP BLD CT W/AUTO DIFF [HEME] DAILY COMPREHENSIVE METABOLIC PANEL [CHEM] DAILY PT WITH INR [COAG] DAILY 05/01/23 09:00 CBC - COMP BLD CT W/AUTO DIFF [HEME] DAILY COMPREHENSIVE METABOLIC PANEL [CHEM] DAILY PT WITH INR [COAG] DAILY 05/02/23 09:00 CBC - COMP BLD CT W/AUTO DIFF [HEME] DAILY COMPREHENSIVE METABOLIC PANEL [CHEM] DAILY PT WITH INR [COAG] DAILY 05/03/23 09:00 CBC - COMP BLD CT W/AUTO DIFF [HEME] DAILY COMPREHENSIVE METABOLIC PANEL [CHEM] DAILY PT WITH INR [COAG] DAILY Plan Discussed with:: Patient Subjective - Subjective Patient Reports: Abdominal Pain, Back Pain (Continues to have pain. Have increased her dilaudid. She did tolerate a regular diet. We will continue to monitor for fever and signs of infection. Low threshold for repeat CT.) Objective Vital Signs: Vital Signs - 24 hr 04/27/23 04/27/23 04/28/23 15:41 20:23 00:12 Temperature 36.9 C 37.0 C 37.0 C Heart Rate [ 73 89 70 Brachial] Respiratory 16 20 16 Rate Blood Pressure 114/72 104/60 105/65 [Right Brachial artery] O2 Saturation 96 97 94 04/28/23 04/28/23 05:10 08:00 Temperature 36.8 C 36.6 C Heart Rate [ 64 80 Brachial] Respiratory 16 18 Rate Blood Pressure 115/72 119/72 [Right Brachial artery] O2 Saturation 96 97 Oxygen O2 Source Room air I&O (Last 24 Hrs): Intake and Output Totals x24h 04/26/23 04/27/23 04/28/23 23:59 23:59 23:59 Intake Total 3934.750 6857.250 496.2 Balance 3934.750 6857.250 496.2 General: Alert, Oriented x3, Cooperative, No acute distress Neuro: Alert, CN 2-12 Grossly Intact, Oriented Times 3 Cardiovascular: Regular rate, Normal S1, Normal S2, No murmurs Respiratory: Chest non-tender, No respiratory distress, Breath sounds nml Abdomen: Normal bowel sounds, Soft, Other (Tenderness, generalized but worse in upper quadrants.) Extremities: No clubbing, No cyanosis, No edema, Normal pulses, No tenderness/swelling - Results Results: Laboratory Results WBC 3.3 x10^3/uL (4.8-10.8) L 04/28/23 08:56 RBC 2.85 10^6/uL (4.20-5.40) L 04/28/23 08:56 Hgb 10.0 g/dL (12.0-16.0) L 04/28/23 08:56 Hct 29.8 % (37.0-47.0) L 04/28/23 08:56 MCV 104.6 fL (81.0-99.0) H 04/28/23 08:56 MCH 35.1 pg (27.0-31.0) H 04/28/23 08:56 MCHC 33.6 g/dL (32.0-36.0) 04/28/23 08:56 RDW 15.9 % (12.0-15.0) H 04/28/23 08:56 Plt Count 90 10^3/uL (130-450) L 04/28/23 08:56 MPV 11.0 fL (7.9-10.8) H 04/28/23 08:56 Neut # (Auto) 1.7 10^3/uL (1.5-6.6) 04/28/23 08:56 Lymph # (Auto) 1.1 10^3/uL (1.5-3.5) L 04/28/23 08:56 [place] # (Auto) 0.3 10^3/uL (0.0-1.0) 04/28/23 08:56 Eos # (Auto) 0.2 10^3/uL (0.0-0.7) 04/28/23 08:56 Baso # (Auto) 0.0 10^3/uL (0.0-0.1) 04/28/23 08:56 Absolute Nucleated RBC 0.00 x10^3/uL 04/28/23 08:56 Nucleated RBC % 0.0 /100WBC 04/28/23 08:56 Manual Slide Review Indicated 04/27/23 08:38 WBC Morphology NORMAL APPEARANCE (NORMAL) 04/27/23 08:38 Platelet Estimate DECREASED (<130,000) (NORMAL) 04/27/23 08:38 Platelet Morphology NORMAL APPEARANCE (NORMAL) 04/27/23 08:38 RBC Morph Micro Appear 1+ ANISOCYTOSIS (NORMAL) 04/27/23 08:38 PT 12.3 secs (9.9-12.6) 04/28/23 08:56 INR 1.1 (0.8-1.2) 04/28/23 08:56 APTT 25.2 secs (24.9-33.3) 04/26/23 12:11 Sodium 136 mmol/L (135-145) 04/28/23 08:56 Potassium 3.3 mmol/L (3.5-4.5) L 04/28/23 08:56 Chloride 107 mmol/L (101-111) 04/28/23 08:56 Carbon Dioxide 26 mmol/L (21-32) 04/28/23 08:56 Anion Gap 3.0 (6-13) L 04/28/23 08:56 BUN < 2 mg/dL (6-20) L 04/28/23 08:56 Creatinine 0.4 mg/dL (0.6-1.3) L 04/28/23 08:56 Estimated GFR (MDRD) 181 (>89) 04/28/23 08:56 Glucose 130 mg/dL (74-104) H 04/28/23 08:56 Estimat Average Glucose 108 mg/dL (70-100) H 04/28/23 05:08 Hemoglobin A1c % 5.4 % (4.27-6.07) 04/28/23 05:08 Calcium 7.9 mg/dL (8.5-10.3) L 04/28/23 08:56 Phosphorus 1.7 mg/dL (2.5-5.0) L 04/26/23 12:11 Magnesium 1.7 mg/dL (1.7-2.3) 04/26/23 12:11 Iron 27 ug/dL (50-212) L 04/28/23 08:56 TIBC 147 ug/dL (250-450) L 04/28/23 08:56 % Saturation 18 % (20-50) L 04/28/23 08:56 Transferrin 105 mg/dL (203-362) L 04/28/23 08:56 Ferritin 368.6 ng/mL (11.0-306.8) H 04/28/23 08:56 Total Bilirubin 0.7 mg/dL (0.2-1.0) 04/28/23 08:56 AST 217 IU/L (10-42) H 04/28/23 08:56 ALT 234 IU/L (10-60) H 04/28/23 08:56 Alkaline Phosphatase 222 IU/L (42-121) H 04/28/23 08:56 Lactate Dehydrogenase > 1200 IU/L (140-271) H 04/26/23 12:11 Total Protein 4.6 g/dL (6.4-8.9) L 04/28/23 08:56 Albumin 2.6 g/dL (3.2-5.5) L 04/28/23 08:56 Globulin 2.0 g/dL (2.1-4.2) L 04/28/23 08:56 Albumin/Globulin Ratio 1.3 (1.0-2.2) 04/28/23 08:56 Lipase 59 U/L (11-82) 04/26/23 12:11 Vitamin B12 616 pg/mL (180-914) 04/28/23 08:56 Folate 17.5 ng/mL (5.90 - >24.8) 04/28/23 08:56 Urine Color YELLOW 04/26/23 12:20 Urine Clarity CLEAR (CLEAR) 04/26/23 12:20 Urine pH 6.0 PH (5.0-7.5) 04/26/23 12:20 Ur Specific [place] <=1.005 (1.002-1.030) 04/26/23 12:20 Urine Protein NEGATIVE mg/dL (NEGATIVE) 04/26/23 12:20 Urine Glucose (UA) NEGATIVE mg/dL (NEGATIVE) 04/26/23 12:20 Urine Ketones NEGATIVE mg/dL (NEGATIVE) 04/26/23 12:20 Urine Occult Blood NEGATIVE (NEGATIVE) 04/26/23 12:20 Urine Nitrite NEGATIVE (NEGATIVE) 04/26/23 12:20 Urine Bilirubin NEGATIVE (NEGATIVE) 04/26/23 12:20 Urine Urobilinogen 0.2 (NORMAL) E.U./dL (NORMAL) 04/26/23 12:20 Ur Leukocyte Esterase NEGATIVE (NEGATIVE) 04/26/23 12:20 Ur Microscopic Review NOT INDICATED 04/26/23 12:20 Urine Culture Comments NOT INDICATED 04/26/23 12:20 Urine HCG, Qual NEGATIVE 04/26/23 12:20 Acetaminophen 9.5 ug/mL 04/26/23 12:11 Ethyl Alcohol < 10.0 mg/dL 04/26/23 12:11 Hepatitis A IgM Ab Negative (Negative) 04/26/23 12:11 Hep Bs Antigen Negative (Negative) 04/26/23 12:11 Hep B Core IgM Ab Negative (Negative) 04/26/23 12:11 Hepatitis C Antibody Non Reactive (Non Reactive) 04/26/23 12:11 Hepatitis C Interp Comment (.) 04/26/23 12:11 - Procedures Procedures: Procedures INSERTION OF INFUSION DEV INTO SUP VENA CAVA, PERC APPROACH (04/09/22) INTRODUCTION OF NUTRITIONAL INTO PERIPH VEIN, PERC APPROACH (04/09/22) MANUAL ASSIST DELIV NEC (11/14/14) Sepsis Event Note (H) - Evaluation Current Stage of Sepsis: Ruled out Current Medications - Current Medications Current Medications: Active Medications Generic Name Dose Route Start Last Admin Trade Name Freq PRN Reason Stop Dose Admin Lipase/Protease/Amylase 5 cap 04/27/23 12:00 04/28/23 08:07 Lipase/Protease/Amylase Capsule PO 5 cap TIDWM LUCY Administration Enoxaparin Sodium 40 mg 04/27/23 09:00 04/28/23 08:08 Enoxaparin 40 Mg/0.4 Ml Syringe SUBQ 40 mg DAILY LUCY Administration Ferrous Sulfate 325 mg 04/29/23 08:00 Ferrous Sulfate 325 Mg Tablet PO DAILYWM [facility] Hydromorphone HCl 1 mg 04/28/23 08:04 04/28/23 10:18 Hydromorphone 1 Mg/Ml Carpuject IVP 1 mg Q2H PRN Administration Pain 8 to 10 Potassium Chloride 10 meq in 100 mls @ 100 mls/hr 04/28/23 11:35 Potassium Chloride IV 04/28/23 12:34 ONCE ONE Nicotine 1 patch 04/28/23 11:00 Nicotine 7 Mg Patch TOP DAILY [facility] Ondansetron HCl 4 mg 04/26/23 15:51 04/27/23 00:21 Ondansetron Odt 4 Mg Tablet TL 4 mg Q6HR PRN Administration Nausea / Vomiting Oxycodone HCl 5 - 10 mg 04/26/23 19:04 04/28/23 10:16 Oxycodone 5 Mg Tablet PO 5 mg Q4HR PRN Administration Moderate Pain (Level 4-6) Pantoprazole Sodium 40 mg 04/27/23 07:00 04/28/23 07:04 Pantoprazole 40 Mg Tablet PO 40 mg QDAC LUCY Administration Sodium Bicarbonate/ 1 each 04/27/23 11:13 Citric Acid [Merly- PO [place] Heartburn BID PRN Tab Eff Heartburn Potassium Chloride 40 meq 04/26/23 19:00 04/28/23 08:04 Potassium Chloride 10 Meq Capsule PO 40 meq DAILYWM LUCY Administration Sodium Chloride 10 ml 04/26/23 15:51 04/28/23 07:04 Sodium Chloride Flush 0.9% 10 Ml Syringe IVP 10 ml PRN PRN Administration NEEDED PER PROVIDER ORDERS Sodium Chloride 10 ml 04/26/23 17:00 04/28/23 08:08 Sodium Chloride Flush 0.9% 10 Ml Syringe IVP 10 ml 0100,0900,1700 LUCY Administration Lipase/Protease/Amylase [Creon Dr 24,000 Unit Capsule] 24,000 unit PO TIDWM 07/30/22 Acetaminophen [Tylenol] 2,000 mg PO BID 04/27/23 Sodium Bicarbonate/Citric Acid [Merly-[place] Heartburn Tab Eff] 1 each PO BID PRN 04/27/23
[2023-04-28] MEDS ORDERED: POTASSIUM CHLOR 10 MEQ/100 ML 10 MEQ/100 ML BAG IV ONE (11:35)
[2023-04-28] MEDS: NICOTINE 7 MG PATCH TOP SCH (12:00)
[2023-04-28 12:08] LABS: HBsAG SCREEN Negative (Negative); HCV AB Non Reactive (Non Reactive); HEPATITIS B CORE IGM AB Negative (Negative)
[2023-04-29] MEDS: oxyCODONE 5 MG TABLET PO PRN ×5 (00:43→17:34)
[2023-04-29] MEDS: ONDANSETRON ODT 4 MG TABLET TL PRN ×2 (00:43→09:51)
[2023-04-29] MEDS: PANTOPRAZOLE 40 MG TABLET PO SCH (06:00)
[2023-04-29] MEDS: SODIUM CHLORIDE FLUSH 0.9% 10 ML SYRINGE IVP SCH ×3 (06:00→17:37)
[2023-04-29] MEDS: HYDROmorphone 1 MG/ML CARPUJECT IVP PRN ×5 (06:01→21:35)
[2023-04-29] MEDS: FERROUS SULFATE 325 MG TABLET PO SCH (08:07)
[2023-04-29] MEDS: POTASSIUM CHLORIDE 10 MEQ CAPSULE PO SCH (08:08)
[2023-04-29] MEDS: LIPASE/PROTEASE/AMYLASE CAPSULE PO SCH ×3 (08:08→17:04)
[2023-04-29] MEDS: ENOXAPARIN 40 MG/0.4 ML SYRINGE SUBQ SCH (08:10)
[2023-04-29] MEDS: NICOTINE 7 MG PATCH TOP SCH (08:10)
--- NOTE | 2023-04-29 08:29 | PROVIDER PROGRESS NOTE ---
Assessment/Plan - Problem List (1) Hepatic infarction Assessment/Plan: --Exact etiology of hepatic infarction is unclear. -- Serology pending to rule out hypercoagulability. Proteins C and S or antithrombin deficiency, factor V Leiden mutation, antiphospholipid syndrome. -- Echo scheduled today to rule out infective endocarditis. Blood cultures shows no growth since 04/26 --Patient denies any history of IV drug use. --Liver enzymes are trending downward. AST 217>84. ALT 234>168. Plan: --She was given a dose of IV Zosyn on 04/26. Continue to monitor for signs of infection and periodic abscess. -- Daily CMP and INR. If patient becomes encephalopathic or INR increases above 1.8 will transfer to a liver center per GI recommendations. INR today was 1.1. (2) Elevated liver enzymes Conclusion/Plan: --Liver enzymes elevated likely due to infarction. Tylenol overdose is also in the differential. --Completed N-acetylcysteine 21-hour protocol. --Hepatitis panel resulted showing normal values. --Patient reports she has been free of alcohol for 2 months. Plan: --Continue to monitor liver enzymes and INR. --Work-up for liver and splenic infarcts as above. -- Alcoholic hepatitis unlikely therefore prednisolone will be held. (3) Pancytopenia Assessment/Plan: --Pancytopenia likely secondary to bone marrow suppression from chronic alcohol use. -- Labs on 04/28 show normal Vit B12 and Folate levels. -- Iron panel suggestive of iron deficiency. Ferritin is elevated but likely due to inflammation. Plan: --Will start daily Fe oral supplement. -- May require an outpatient hematology evaluation if no etiology is uncovered. --Transfuse if hemoglobin under 7. --Continue prophylactic Lovenox given her infarcts despite downtrending platelet count. Would recommend holding Lovenox if platelet under 20k or if she starts bleeding. (4) Acetaminophen poisoning Conclusion/Plan: --Completed 21-hour N-acetylcysteine protocol. --Unclear exactly how much Tylenol patient was taking but she was using it [id number] to manage her abdominal pain. Plan: --Educate patient on future liver injury with prolong Tylenol use. --Holding all Tylenol while she is inpatient. Qualifiers: Encounter type: initial encounter Injury intent: undetermined intent Qualified Code(s): T39.1X4A - Poisoning by 4-Aminophenol derivatives, undetermined, initial encounter (5) Acute on chronic pancreatitis Conclusion/Plan: --Patient has had multiple admissions for pancreatitis in the past. She currently follows with gastroenterology at [facility]. Plan: --Continue home Creon. --CT scan does show developing pseudocyst. (6) Gastritis Conclusion/Plan: --Continue PPI. Qualifiers: Gastritis type: alcoholic (7) History of alcohol abuse Conclusion/Plan: --Patient has been alcohol free for 2 months per her report. Level negative in ED. Plan: --Not scoring on CIWA, will discontinue. (8) History of tobacco usage Assessment/Plan: -- PT voiced eagerness to quit smoking Plan: -- During discharge, patient will be offered nicotine patches or nicotine gum. (9) History hypothyroidism Assessment/Plan: -- TSH on 04/29 show normal levels. - Current Meds Current Meds: Current Medications Generic Name Dose Route Start Last Admin Trade Name Freq PRN Reason Stop Dose Admin Lipase/Protease/Amylase 5 cap 04/27/23 12:00 04/29/23 08:08 Lipase/Protease/Amylase Capsule PO 5 cap TIDWM LUCY Administration Enoxaparin Sodium 40 mg 04/27/23 09:00 04/29/23 08:10 Enoxaparin 40 Mg/0.4 Ml Syringe SUBQ 40 mg DAILY LUCY Administration Ferrous Sulfate 325 mg 04/29/23 08:00 04/29/23 08:07 Ferrous Sulfate 325 Mg Tablet PO 325 mg DAILYWM LUCY Administration Hydromorphone HCl 1 mg 04/28/23 08:04 04/29/23 06:01 Hydromorphone 1 Mg/Ml Carpuject IVP 1 mg Q2H PRN Administration Pain 8 to 10 Nicotine 1 patch 04/28/23 11:00 04/29/23 08:10 Nicotine 7 Mg Patch TOP 1 patch DAILY LUCY Administration Ondansetron HCl 4 mg 04/26/23 15:51 04/29/23 00:43 Ondansetron Odt 4 Mg Tablet TL 4 mg Q6HR PRN Administration Nausea / Vomiting Oxycodone HCl 5 - 10 mg 04/26/23 19:04 04/29/23 08:06 Oxycodone 5 Mg Tablet PO 10 mg Q4HR PRN Administration Moderate Pain (Level 4-6) Pantoprazole Sodium 40 mg 04/27/23 07:00 04/29/23 06:00 Pantoprazole 40 Mg Tablet PO 40 mg QDAC LUCY Administration Potassium Chloride 40 meq 04/26/23 19:00 04/29/23 08:08 Potassium Chloride 10 Meq Capsule PO 05/01/23 08:01 40 meq DAILYWM LUCY Administration Sodium Chloride 10 ml 04/26/23 15:51 04/28/23 07:04 Sodium Chloride Flush 0.9% 10 Ml Syringe IVP 10 ml PRN PRN Administration NEEDED PER PROVIDER ORDERS Sodium Chloride 10 ml 04/26/23 17:00 04/29/23 08:12 Sodium Chloride Flush 0.9% 10 Ml Syringe IVP 10 ml 0100,0900,1700 LUCY Administration - Lab Result Lab results reviewed: Yes Fish Bone Diagrams: 04/29/23 08:57 04/29/23 08:57 - Additional Planning Time Spent: 15-30 minutes Subjective - Subjective Patient Reports: Abdominal Pain (epigastric gastric region, UL, and UR. pain radiates both sides to the back. 6/10 pain wakes her up from sleep.), Chest Pain (With deep breaths), Dizzines (When getting up from bed), Nausea, Other (Diaphoretic, hot flashes) Nursing Reports: Nausea, Pain Objective Vital Signs: Vital Signs - 24 hr 04/28/23 04/29/23 15:34 00:00 Temperature 36.8 C 36.7 C Heart Rate [ 75 74 Brachial] Respiratory 16 18 Rate Blood Pressure 116/86 H 115/87 H [Right Brachial artery] O2 Saturation 97 96 Oxygen O2 Source Room air I&O (Last 24 Hrs): Intake and Output Totals x24h 04/27/23 04/28/23 04/29/23 23:59 23:59 23:59 Intake Total 6857.250 1952.2 500 Balance 6857.250 1952.2 500 General: Alert, Oriented x3, Cooperative, Moderate distress HEENT: Atraumatic, PERRLA, EOMI, Other (No icterus) Neuro: Alert, Oriented Times 3, Other (No tremor) Cardiovascular: Regular rate, Normal S1, Normal S2, No murmurs Respiratory: No respiratory distress, Breath sounds nml Abdomen: Normal bowel sounds, Soft, No masses, Other (pain on upper abdomen with light pressure) Extremities: No edema - Results Results: Laboratory Results WBC 3.3 x10^3/uL (4.8-10.8) L 04/28/23 08:56 RBC 2.85 10^6/uL (4.20-5.40) L 04/28/23 08:56 Hgb 10.0 g/dL (12.0-16.0) L 04/28/23 08:56 Hct 29.8 % (37.0-47.0) L 04/28/23 08:56 MCV 104.6 fL (81.0-99.0) H 04/28/23 08:56 MCH 35.1 pg (27.0-31.0) H 04/28/23 08:56 MCHC 33.6 g/dL (32.0-36.0) 04/28/23 08:56 RDW 15.9 % (12.0-15.0) H 04/28/23 08:56 Plt Count 90 10^3/uL (130-450) L 04/28/23 08:56 MPV 11.0 fL (7.9-10.8) H 04/28/23 08:56 Neut # (Auto) 1.7 10^3/uL (1.5-6.6) 04/28/23 08:56 Lymph # (Auto) 1.1 10^3/uL (1.5-3.5) L 04/28/23 08:56 [place] # (Auto) 0.3 10^3/uL (0.0-1.0) 04/28/23 08:56 Eos # (Auto) 0.2 10^3/uL (0.0-0.7) 04/28/23 08:56 Baso # (Auto) 0.0 10^3/uL (0.0-0.1) 04/28/23 08:56 Absolute Nucleated RBC 0.00 x10^3/uL 04/28/23 08:56 Nucleated RBC % 0.0 /100WBC 04/28/23 08:56 Manual Slide Review Indicated 04/27/23 08:38 WBC Morphology NORMAL APPEARANCE (NORMAL) 04/27/23 08:38 Platelet Estimate DECREASED (<130,000) (NORMAL) 04/27/23 08:38 Platelet Morphology NORMAL APPEARANCE (NORMAL) 04/27/23 08:38 RBC Morph Micro Appear 1+ ANISOCYTOSIS (NORMAL) 04/27/23 08:38 PT 12.3 secs (9.9-12.6) 04/28/23 08:56 INR 1.1 (0.8-1.2) 04/28/23 08:56 APTT 25.2 secs (24.9-33.3) 04/26/23 12:11 Sodium 136 mmol/L (135-145) 04/28/23 08:56 Potassium 3.3 mmol/L (3.5-4.5) L 04/28/23 08:56 Chloride 107 mmol/L (101-111) 04/28/23 08:56 Carbon Dioxide 26 mmol/L (21-32) 04/28/23 08:56 Anion Gap 3.0 (6-13) L 04/28/23 08:56 BUN < 2 mg/dL (6-20) L 04/28/23 08:56 Creatinine 0.4 mg/dL (0.6-1.3) L 04/28/23 08:56 Estimated GFR (MDRD) 181 (>89) 04/28/23 08:56 Glucose 130 mg/dL (74-104) H 04/28/23 08:56 Estimat Average Glucose 108 mg/dL (70-100) H 04/28/23 05:08 Hemoglobin A1c % 5.4 % (4.27-6.07) 04/28/23 05:08 Calcium 7.9 mg/dL (8.5-10.3) L 04/28/23 08:56 Phosphorus 1.7 mg/dL (2.5-5.0) L 04/26/23 12:11 Magnesium 1.7 mg/dL (1.7-2.3) 04/26/23 12:11 Iron 27 ug/dL (50-212) L 04/28/23 08:56 TIBC 147 ug/dL (250-450) L 04/28/23 08:56 % Saturation 18 % (20-50) L 04/28/23 08:56 Transferrin 105 mg/dL (203-362) L 04/28/23 08:56 Ferritin 368.6 ng/mL (11.0-306.8) H 04/28/23 08:56 Total Bilirubin 0.7 mg/dL (0.2-1.0) 04/28/23 08:56 AST 217 IU/L (10-42) H 04/28/23 08:56 ALT 234 IU/L (10-60) H 04/28/23 08:56 Alkaline Phosphatase 222 IU/L (42-121) H 04/28/23 08:56 Lactate Dehydrogenase > 1200 IU/L (140-271) H 04/26/23 12:11 Total Protein 4.6 g/dL (6.4-8.9) L 04/28/23 08:56 Albumin 2.6 g/dL (3.2-5.5) L 04/28/23 08:56 Globulin 2.0 g/dL (2.1-4.2) L 04/28/23 08:56 Albumin/Globulin Ratio 1.3 (1.0-2.2) 04/28/23 08:56 Lipase 59 U/L (11-82) 04/26/23 12:11 Vitamin B12 616 pg/mL (180-914) 04/28/23 08:56 Folate 17.5 ng/mL (5.90 - >24.8) 04/28/23 08:56 Urine Color YELLOW 04/26/23 12:20 Urine Clarity CLEAR (CLEAR) 04/26/23 12:20 Urine pH 6.0 PH (5.0-7.5) 04/26/23 12:20 Ur Specific [place] <=1.005 (1.002-1.030) 04/26/23 12:20 Urine Protein NEGATIVE mg/dL (NEGATIVE) 04/26/23 12:20 Urine Glucose (UA) NEGATIVE mg/dL (NEGATIVE) 04/26/23 12:20 Urine Ketones NEGATIVE mg/dL (NEGATIVE) 04/26/23 12:20 Urine Occult Blood NEGATIVE (NEGATIVE) 04/26/23 12:20 Urine Nitrite NEGATIVE (NEGATIVE) 04/26/23 12:20 Urine Bilirubin NEGATIVE (NEGATIVE) 04/26/23 12:20 Urine Urobilinogen 0.2 (NORMAL) E.U./dL (NORMAL) 04/26/23 12:20 Ur Leukocyte Esterase NEGATIVE (NEGATIVE) 04/26/23 12:20 Ur Microscopic Review NOT INDICATED 04/26/23 12:20 Urine Culture Comments NOT INDICATED 04/26/23 12:20 Urine HCG, Qual NEGATIVE 04/26/23 12:20 Acetaminophen 9.5 ug/mL 04/26/23 12:11 Ethyl Alcohol < 10.0 mg/dL 04/26/23 12:11 Hepatitis A IgM Ab Negative (Negative) 04/27/23 08:38 Hep Bs Antigen Negative (Negative) 04/27/23 08:38 Hep B Core IgM Ab Negative (Negative) 04/27/23 08:38 Hepatitis C Antibody Non Reactive (Non Reactive) 04/27/23 08:38 Hepatitis C Interp Comment (.) 04/27/23 08:38 - Procedures Procedures: Procedures INSERTION OF INFUSION DEV INTO SUP VENA CAVA, PERC APPROACH (04/09/22) INTRODUCTION OF NUTRITIONAL INTO PERIPH VEIN, PERC APPROACH (04/09/22) MANUAL ASSIST DELIV NEC (11/14/14) Sepsis Event Note (H) - Evaluation Current Stage of Sepsis: Ruled out ABX Reporting Has patient been on IV antibiotics over the past 48 hours?: No
[2023-04-29 09:05] LABS: BASOPHILS % (AUTO) 0.5 %; EOSINOPHILS # (AUTO) 0.2 10^3/uL (0.0-0.7); EOSINOPHILS % (AUTO) 5.8 %; HCT - HEMATOCRIT 30.6 % (37.0-47.0); HGB - HEMOGLOBIN 10.2 g/dL (12.0-16.0); LYMPHOCYTES # (AUTO) 1.3 10^3/uL (1.5-3.5); LYMPHOCYTES % (AUTO) 31.5 %; MEAN CORPUSCULAR HEMOGLOBIN 34.8 pg (27.0-31.0); MEAN CORPUSCULAR HGB CONC 33.3 g/dL (32.0-36.0); MEAN CORPUSCULAR VOLUME 104.4 fL (81.0-99.0); MONOCYTES # (AUTO) 0.3 10^3/uL (0.0-1.0); MONOCYTES % (AUTO) 8.6 %; NEUTROPHILS # (AUTO) 2.1 10^3/uL (1.5-6.6); NEUTROPHILS % (AUTO) 53.6 %; PLT - PLATELET COUNT 104 10^3/uL (130-450); RED BLOOD COUNT 2.93 10^6/uL (4.20-5.40); RED CELL DISTRIBUTION WIDTH 15.6 % (12.0-15.0)
[2023-04-29 09:15] LABS: INR 1.1 (0.8-1.2); PT - PROTHROMBIN TIME 11.8 secs (9.9-12.6)
[2023-04-29 09:17] LABS: ALBUMIN 2.8 g/dL (3.2-5.5)
[2023-04-29 09:32] LABS: ALBUMIN/GLOBULIN RATIO 1.2 (1.0-2.2); ALKALINE PHOSPHATASE 212 IU/L (42-121); ALT ALANINE AMINOTRANSFERASE 168 IU/L (10-60); AST ASPARTATE AMINOTRANSFERASE 84 IU/L (10-42); BILIRUBIN,TOTAL 0.6 mg/dL (0.2-1.0); BUN - BLOOD UREA NITROGEN < 2 mg/dL (6-20); CALCIUM 8.4 mg/dL (8.5-10.3); CARBON DIOXIDE - CO2 27 mmol/L (21-32); CHLORIDE 105 mmol/L (101-111); CREATININE 0.4 mg/dL (0.6-1.3); GFR - MDRD 181 (>89); GLUCOSE 119 mg/dL (74-104); POTASSIUM 3.6 mmol/L (3.5-4.5); SODIUM 136 mmol/L (135-145); TOTAL PROTEIN 5.2 g/dL (6.4-8.9)
[2023-04-29] MEDS: SODIUM CHLORIDE FLUSH 0.9% 10 ML SYRINGE IVP PRN ×2 (19:01→21:35)
[2023-04-30] MEDS: SODIUM CHLORIDE FLUSH 0.9% 10 ML SYRINGE IVP SCH ×3 (00:36→16:02)
[2023-04-30] MEDS: ONDANSETRON ODT 4 MG TABLET TL PRN ×2 (00:36→07:25)
[2023-04-30] MEDS: HYDROmorphone 1 MG/ML CARPUJECT IVP PRN ×5 (00:36→21:15)
[2023-04-30] MEDS: oxyCODONE 5 MG TABLET PO PRN ×5 (02:19→16:08)
[2023-04-30] MEDS: PANTOPRAZOLE 40 MG TABLET PO SCH (06:30)
[2023-04-30] MEDS: FERROUS SULFATE 325 MG TABLET PO SCH (08:17)
[2023-04-30] MEDS: LIPASE/PROTEASE/AMYLASE CAPSULE PO SCH ×4 (08:18→17:17)
[2023-04-30] MEDS: POTASSIUM CHLORIDE 10 MEQ CAPSULE PO SCH (08:19)
[2023-04-30] MEDS: ENOXAPARIN 40 MG/0.4 ML SYRINGE SUBQ SCH (08:19)
[2023-04-30] MEDS: NICOTINE 7 MG PATCH TOP SCH (08:20)
[2023-04-30 09:11] LABS: BASOPHILS % (AUTO) 0.5 %; EOSINOPHILS # (AUTO) 0.2 10^3/uL (0.0-0.7); EOSINOPHILS % (AUTO) 5.2 %; HCT - HEMATOCRIT 34.5 % (37.0-47.0); HGB - HEMOGLOBIN 11.2 g/dL (12.0-16.0); LYMPHOCYTES # (AUTO) 1.5 10^3/uL (1.5-3.5); LYMPHOCYTES % (AUTO) 39.4 %; MEAN CORPUSCULAR HEMOGLOBIN 34.3 pg (27.0-31.0); MEAN CORPUSCULAR HGB CONC 32.5 g/dL (32.0-36.0); MEAN CORPUSCULAR VOLUME 105.5 fL (81.0-99.0); MEAN PLATELET VOLUME 11.2 fL (7.9-10.8); MONOCYTES # (AUTO) 0.5 10^3/uL (0.0-1.0); MONOCYTES % (AUTO) 12.4 %; NEUTROPHILS # (AUTO) 1.6 10^3/uL (1.5-6.6); NEUTROPHILS % (AUTO) 42.2 %; PLT - PLATELET COUNT 118 10^3/uL (130-450); RED BLOOD COUNT 3.27 10^6/uL (4.20-5.40); RED CELL DISTRIBUTION WIDTH 15.9 % (12.0-15.0); WHITE BLOOD COUNT 3.9 x10^3/uL (4.8-10.8)
[2023-04-30 09:18] LABS: INR 1.1 (0.8-1.2); PT - PROTHROMBIN TIME 12.3 secs (9.9-12.6)
[2023-04-30 09:34] LABS: ALBUMIN 3.1 g/dL (3.2-5.5)
[2023-04-30 09:40] LABS: BUN - BLOOD UREA NITROGEN < 2 mg/dL (6-20)
[2023-04-30 09:41] LABS: ALBUMIN/GLOBULIN RATIO 1.2 (1.0-2.2); ALKALINE PHOSPHATASE 241 IU/L (42-121); ALT ALANINE AMINOTRANSFERASE 128 IU/L (10-60); AST ASPARTATE AMINOTRANSFERASE 49 IU/L (10-42); BILIRUBIN,TOTAL 0.7 mg/dL (0.2-1.0); CALCIUM 8.9 mg/dL (8.5-10.3); CARBON DIOXIDE - CO2 29 mmol/L (21-32); CHLORIDE 102 mmol/L (101-111); CREATININE 0.5 mg/dL (0.6-1.3); GFR - MDRD 140 (>89); GLUCOSE 124 mg/dL (74-104); POTASSIUM 3.9 mmol/L (3.5-4.5); SODIUM 135 mmol/L (135-145); TOTAL PROTEIN 5.7 g/dL (6.4-8.9)
[2023-04-30] MEDS: polyethylene glycoL 3350 17 GM PACKET PO SCH (11:13)
--- NOTE | 2023-04-30 11:44 | PROVIDER PROGRESS NOTE ---
Assessment/Plan - Problem List (1) Hepatic infarction Assessment/Plan: --Exact etiology of hepatic infarction is unclear. -- Serology pending to rule out hypercoagulability. Proteins C and S or antithrombin deficiency, factor V Leiden mutation, antiphospholipid syndrome. -- Echo pending to rule out infective endocarditis. Blood cultures shows no growth since for 2 days --Patient denies any history of IV drug use. --Liver enzymes are trending downward. AST 217>84>49. ALT 234>168>128. ALK phos worsening 212>241. Plan: --She was given a dose of IV Zosyn on 04/26. Continue to monitor for signs of infection and periodic abscess. -- Daily CMP and INR. If patient becomes encephalopathic or INR increases above 1.8 will transfer to a liver center per GI recommendations. INR today was 1.1. --Start IV Toradol q6h LUCY and Dilaudid IV q6h for pain management (2) Elevated liver enzymes Assessment/Plan: --Liver enzymes elevated likely due to infarction. Tylenol overdose is also in the differential. --Completed N-acetylcysteine 21-hour protocol. --Hepatitis panel resulted showing normal values. --Patient reports she has been free of alcohol for 2 months. Plan: --Continue to monitor liver enzymes and INR. --Work-up for liver and splenic infarcts as above. -- Alcoholic hepatitis unlikely therefore prednisolone will be held. (3) Pancytopenia Assessment/Plan: --Pancytopenia likely secondary to bone marrow suppression from chronic alcohol use. --Labs show steady improvements in WBC, RBC, Hgb, Hct, Plt count. --Labs on 04/28 show normal Vit B12 and Folate levels. --Iron panel suggestive of iron deficiency. Ferritin is elevated but likely due to inflammation. Plan: --Will continue daily Fe oral supplement. --May require an outpatient hematology evaluation if no etiology is uncovered. --Transfuse if hemoglobin under 7. --Continue prophylactic Lovenox given her infarcts despite downtrending platelet count. Would recommend holding Lovenox if platelet under 20k or if she starts bleeding. (4) Acetaminophen poisoning Assessment/Plan: --Completed 21-hour N-acetylcysteine protocol. --Unclear exactly how much Tylenol patient was taking but she was using it [id number] to manage her abdominal pain. Plan: --Educate patient on future liver injury with prolong Tylenol use. --Holding all Tylenol while she is inpatient. Qualifiers: Encounter type: initial encounter Injury intent: undetermined intent Qualified Code(s): T39.1X4A - Poisoning by 4-Aminophenol derivatives, undetermined, initial encounter (5) Acute on chronic pancreatitis Assessment/Plan: --Patient has had multiple admissions for pancreatitis in the past. She currently follows with gastroenterology at [facility]. --Steady improvement in total protein, albumin, and globulin lab values. Plan: --Continue home Creon. --CT scan does show developing pseudocyst. --Start IV Toradol q6h LUCY and Dilaudid IV q6h for pain management (6) Gastritis and Nausea Assessment/Plan: --Continue PPI. --Modify diet to minced and moist. --Start zofran sublingual film TID AC --Start IV Toradol q6h LUCY and Dilaudid IV q6h for pain management Qualifiers: Gastritis type: alcoholic (7) Heart Palpitations Conclusion/Plan: --Will monitor with EKG and vitals (8) History of alcohol abuse Assessment/Plan: --Patient has been alcohol free for 2 months per her report. Level negative in ED. Plan: --Not scoring on CIWA, will discontinue. --When discharging offer Acamprosate 666 mg oral tablet TID to support abstaining from alcohol withdrawal. This medication is prefered over naltrexone due to low risk of hepatic failure. (9) History of tobacco usage Assessment/Plan: -- PT voiced eagerness to quit smoking. Plan: -- During discharge, patient will be offered nicotine patches or nicotine gum. (10) History hypothyroidism Assessment/Plan: -- TSH on 04/29 show normal levels. - Current Meds Current Meds: Current Medications Generic Name Dose Route Start Last Admin Trade Name Freq PRN Reason Stop Dose Admin Lipase/Protease/Amylase 5 cap 04/27/23 12:00 04/30/23 08:18 Lipase/Protease/Amylase Capsule PO 5 cap TIDWM LUCY Administration Lipase/Protease/Amylase 3 cap 04/30/23 10:22 04/30/23 10:57 Lipase/Protease/Amylase Capsule PO Not Given UD LUCY Enoxaparin Sodium 40 mg 04/27/23 09:00 04/30/23 08:19 Enoxaparin 40 Mg/0.4 Ml Syringe SUBQ 40 mg DAILY LUCY Administration Ferrous Sulfate 325 mg 04/29/23 08:00 04/30/23 08:17 Ferrous Sulfate 325 Mg Tablet PO 325 mg DAILYWM LUCY Administration Hydromorphone HCl 1 mg 04/28/23 08:04 04/30/23 07:25 Hydromorphone 1 Mg/Ml Carpuject IVP 1 mg Q2H PRN Administration Pain 8 to 10 Nicotine 1 patch 04/28/23 11:00 04/30/23 08:20 Nicotine 7 Mg Patch TOP 1 patch DAILY LUCY Administration Ondansetron HCl 4 mg 04/26/23 15:51 04/30/23 07:25 Ondansetron Odt 4 Mg Tablet TL 4 mg Q6HR PRN Administration Nausea / Vomiting Oxycodone HCl 5 - 10 mg 04/26/23 19:04 04/30/23 10:56 Oxycodone 5 Mg Tablet PO 10 mg Q4HR PRN Administration Moderate Pain (Level 4-6) Pantoprazole Sodium 40 mg 04/27/23 07:00 04/30/23 06:30 Pantoprazole 40 Mg Tablet PO 40 mg QDAC LUCY Administration Polyethylene Glycol 17 gm 04/30/23 10:00 04/30/23 11:13 Polyethylene Glycol 3350 17 Gm Packet PO 17 gm DAILY LUCY Administration Potassium Chloride 40 meq 04/26/23 19:00 04/30/23 08:19 Potassium Chloride 10 Meq Capsule PO 05/01/23 08:01 40 meq DAILYWM LUCY Administration Sodium Chloride 10 ml 04/26/23 15:51 04/29/23 21:35 Sodium Chloride Flush 0.9% 10 Ml Syringe IVP 10 ml PRN PRN Administration NEEDED PER PROVIDER ORDERS Sodium Chloride 10 ml 04/26/23 17:00 04/30/23 08:22 Sodium Chloride Flush 0.9% 10 Ml Syringe IVP 10 ml 0100,[id number],1700 LUCY Administration - Lab Result Fish Bone Diagrams: 04/30/23 09:00 04/30/23 09:00 Subjective - Subjective Patient Reports: Abdominal Pain (7-9/10 on all upper quadrants radiating to the back. Pain wakes her up from sleep. She desribes the pain medication is not lasting long enough and she is exhausted from continously waking up to pain.), Chest Pain (with feelings of racing, fluttering, and palpitations. Pain in upper middle chest radiating to the left breast.), Dizzines, Fatigue, Itching (on lower back), Nausea (vomiting x2. took 3 hours to keep a fruit bowl. able to drink fluids regularly.), Other Objective Vital Signs: Vital Signs - 24 hr 04/29/23 04/30/23 04/30/23 15:26 00:00 07:19 Temperature 36.5 C 36.8 C 36.8 C Heart Rate [ 70 75 75 Brachial] Respiratory 18 20 16 Rate Blood Pressure 117/90 H 134/86 H 120/85 H [Right Brachial artery] O2 Saturation 97 98 97 Oxygen O2 Source Room air I&O (Last 24 Hrs): Intake and Output Totals x24h 04/28/23 04/29/23 04/30/23 23:59 23:59 23:59 Intake Total 1951.2 1700 540 Output Total 100 2049 Balance 195.2 1600 -1510 General: Alert, Oriented x3, Cooperative, Moderate distress HEENT: Atraumatic, PERRLA, EOMI, Other (no signs of ictuerus) Neuro: Alert, CN 2-12 Grossly Intact, Oriented Times 3, Other (no tremors) Cardiovascular: Regular rate, Normal S1, Normal S2, No murmurs Respiratory: Chest non-tender, No respiratory distress, Breath sounds nml Abdomen: Normal bowel sounds (increased pain with light pressure on right and middle upper quadrant.), Soft, No tenderness, No hepatospenomegaly, No masses Extremities: No clubbing, No cyanosis, No edema, Normal pulses, No tenderness/swelling Skin: No rashes (erythema in lower back) - Results Results: Laboratory Results WBC 3.9 x10^3/uL (4.8-10.8) L 04/30/23 09:00 RBC 3.27 10^6/uL (4.20-5.40) L 04/30/23 09:00 Hgb 11.2 g/dL (12.0-16.0) L 04/30/23 09:00 Hct 34.5 % (37.0-47.0) L 04/30/23 09:00 MCV 105.5 fL (81.0-99.0) H 04/30/23 09:00 MCH 34.3 pg (27.0-31.0) H 04/30/23 09:00 MCHC 32.5 g/dL (32.0-36.0) 04/30/23 09:00 RDW 15.9 % (12.0-15.0) H 04/30/23 09:00 Plt Count 118 10^3/uL (130-450) L 04/30/23 09:00 MPV 11.2 fL (7.9-10.8) H 04/30/23 09:00 Neut # (Auto) 1.6 10^3/uL (1.5-6.6) 04/30/23 09:00 Lymph # (Auto) 1.5 10^3/uL (1.5-3.5) 04/30/23 09:00 [place] # (Auto) 0.5 10^3/uL (0.0-1.0) 04/30/23 09:00 Eos # (Auto) 0.2 10^3/uL (0.0-0.7) 04/30/23 09:00 Baso # (Auto) 0.0 10^3/uL (0.0-0.1) 04/30/23 09:00 Absolute Nucleated RBC 0.00 x10^3/uL 04/30/23 09:00 Nucleated RBC % 0.0 /100WBC 04/30/23 09:00 Manual Slide Review Indicated 04/27/23 08:38 WBC Morphology NORMAL APPEARANCE (NORMAL) 04/27/23 08:38 Platelet Estimate DECREASED (<130,000) (NORMAL) 04/27/23 08:38 Platelet Morphology NORMAL APPEARANCE (NORMAL) 04/27/23 08:38 RBC Morph Micro Appear 1+ ANISOCYTOSIS (NORMAL) 04/27/23 08:38 PT 12.3 secs (9.9-12.6) 04/30/23 09:00 INR 1.1 (0.8-1.2) 04/30/23 09:00 APTT 25.2 secs (24.9-33.3) 04/26/23 12:11 Sodium 135 mmol/L (135-145) 04/30/23 09:00 Potassium 3.9 mmol/L (3.5-4.5) 04/30/23 09:00 Chloride 102 mmol/L (101-111) 04/30/23 09:00 Carbon Dioxide 29 mmol/L (21-32) 04/30/23 09:00 Anion Gap 4.0 (6-13) L 04/30/23 09:00 BUN < 2 mg/dL (6-20) L 04/30/23 09:00 Creatinine 0.5 mg/dL (0.6-1.3) L 04/30/23 09:00 Estimated GFR (MDRD) 140 (>89) 04/30/23 09:00 Glucose 124 mg/dL (74-104) H 04/30/23 09:00 Estimat Average Glucose 108 mg/dL (70-100) H 04/28/23 05:08 Hemoglobin A1c % 5.4 % (4.27-6.07) 04/28/23 05:08 Calcium 8.9 mg/dL (8.5-10.3) 04/30/23 09:00 Phosphorus 1.7 mg/dL (2.5-5.0) L 04/26/23 12:11 Magnesium 1.7 mg/dL (1.7-2.3) 04/26/23 12:11 Iron 27 ug/dL (50-212) L 04/28/23 08:56 TIBC 147 ug/dL (250-450) L 04/28/23 08:56 % Saturation 18 % (20-50) L 04/28/23 08:56 Transferrin 105 mg/dL (203-362) L 04/28/23 08:56 Ferritin 368.6 ng/mL (11.0-306.8) H 04/28/23 08:56 Total Bilirubin 0.7 mg/dL (0.2-1.0) 04/30/23 09:00 AST 49 IU/L (10-42) H 04/30/23 09:00 ALT 128 IU/L (10-60) H 04/30/23 09:00 Alkaline Phosphatase 241 IU/L (42-121) H 04/30/23 09:00 Lactate Dehydrogenase > 1200 IU/L (140-271) H 04/26/23 12:11 Total Protein 5.7 g/dL (6.4-8.9) L 04/30/23 09:00 Albumin 3.1 g/dL (3.2-5.5) L 04/30/23 09:00 Globulin 2.6 g/dL (2.1-4.2) 04/30/23 09:00 Albumin/Globulin Ratio 1.2 (1.0-2.2) 04/30/23 09:00 Lipase 59 U/L (11-82) 04/26/23 12:11 Vitamin B12 616 pg/mL (180-914) 04/28/23 08:56 Folate 17.5 ng/mL (5.90 - >24.8) 04/28/23 08:56 TSH 3.80 uIU/mL (0.34-5.60) 04/29/23 08:57 Urine Color YELLOW 04/26/23 12:20 Urine Clarity CLEAR (CLEAR) 04/26/23 12:20 Urine pH 6.0 PH (5.0-7.5) 04/26/23 12:20 Ur Specific [place] <=1.005 (1.002-1.030) 04/26/23 12:20 Urine Protein NEGATIVE mg/dL (NEGATIVE) 04/26/23 12:20 Urine Glucose (UA) NEGATIVE mg/dL (NEGATIVE) 04/26/23 12:20 Urine Ketones NEGATIVE mg/dL (NEGATIVE) 04/26/23 12:20 Urine Occult Blood NEGATIVE (NEGATIVE) 04/26/23 12:20 Urine Nitrite NEGATIVE (NEGATIVE) 04/26/23 12:20 Urine Bilirubin NEGATIVE (NEGATIVE) 04/26/23 12:20 Urine Urobilinogen 0.2 (NORMAL) E.U./dL (NORMAL) 04/26/23 12:20 Ur Leukocyte Esterase NEGATIVE (NEGATIVE) 04/26/23 12:20 Ur Microscopic Review NOT INDICATED 04/26/23 12:20 Urine Culture Comments NOT INDICATED 04/26/23 12:20 Urine HCG, Qual NEGATIVE 04/26/23 12:20 Acetaminophen 9.5 ug/mL 04/26/23 12:11 Ethyl Alcohol < 10.0 mg/dL 04/26/23 12:11 Hepatitis A IgM Ab Negative (Negative) 04/27/23 08:38 Hep Bs Antigen Negative (Negative) 04/27/23 08:38 Hep B Core IgM Ab Negative (Negative) 04/27/23 08:38 Hepatitis C Antibody Non Reactive (Non Reactive) 04/27/23 08:38 Hepatitis C Interp Comment (.) 04/27/23 08:38 - Procedures Procedures: Procedures INSERTION OF INFUSION DEV INTO SUP VENA CAVA, PERC APPROACH (04/09/22) INTRODUCTION OF NUTRITIONAL INTO PERIPH VEIN, PERC APPROACH (04/09/22) MANUAL ASSIST DELIV NEC (11/14/14) Sepsis Event Note (H) - Evaluation Current Stage of Sepsis: Ruled out
[2023-04-30] MEDS ORDERED: KETOROLAC 30 MG/ML VIAL IVP PRN (12:33)
[2023-04-30] MEDS: KETOROLAC 30 MG/ML VIAL IVP SCH ×2 (13:09→23:41)
[2023-04-30] MEDS: HYDROmorphone 0.5 MG/0.5 ML SYRINGE IVP SCH ×2 (13:09→18:53)
[2023-04-30] MEDS: ONDANSETRON ODT 4 MG TABLET TL SCH (16:02)
[2023-04-30] MEDS: SODIUM CHLORIDE FLUSH 0.9% 10 ML SYRINGE IVP PRN (23:42)
[2023-05-01] MEDS: SODIUM CHLORIDE FLUSH 0.9% 10 ML SYRINGE IVP SCH ×3 (01:22→15:55)
[2023-05-01] MEDS: HYDROmorphone 0.5 MG/0.5 ML SYRINGE IVP SCH ×4 (01:22→19:09)
[2023-05-01] MEDS: HYDROmorphone 1 MG/ML CARPUJECT IVP PRN ×5 (03:57→21:18)
[2023-05-01] MEDS: KETOROLAC 30 MG/ML VIAL IVP SCH ×3 (06:35→17:39)
[2023-05-01] MEDS: ONDANSETRON ODT 4 MG TABLET TL SCH ×3 (06:58→15:55)
[2023-05-01] MEDS: PANTOPRAZOLE 40 MG TABLET PO SCH (06:59)
[2023-05-01] MEDS: polyethylene glycoL 3350 17 GM PACKET PO SCH (08:37)
[2023-05-01] MEDS: LIPASE/PROTEASE/AMYLASE CAPSULE PO SCH ×4 (08:38→17:16)
[2023-05-01] MEDS: FERROUS SULFATE 325 MG TABLET PO SCH (08:39)
[2023-05-01] MEDS: NICOTINE 7 MG PATCH TOP SCH (08:40)
[2023-05-01] MEDS: POTASSIUM CHLORIDE 10 MEQ CAPSULE PO SCH (08:41)
[2023-05-01] MEDS: ENOXAPARIN 40 MG/0.4 ML SYRINGE SUBQ SCH (08:48)
[2023-05-01 09:33] LABS: BASOPHILS % (AUTO) 0.5 %; EOSINOPHILS # (AUTO) 0.2 10^3/uL (0.0-0.7); EOSINOPHILS % (AUTO) 4.9 %; HCT - HEMATOCRIT 36.9 % (37.0-47.0); LYMPHOCYTES % (AUTO) 48.3 %; MEAN CORPUSCULAR HEMOGLOBIN 34.4 pg (27.0-31.0); MEAN CORPUSCULAR HGB CONC 32.5 g/dL (32.0-36.0); MEAN CORPUSCULAR VOLUME 105.7 fL (81.0-99.0); MONOCYTES # (AUTO) 0.4 10^3/uL (0.0-1.0); MONOCYTES % (AUTO) 10.7 %; NEUTROPHILS # (AUTO) 1.5 10^3/uL (1.5-6.6); NEUTROPHILS % (AUTO) 35.6 %; PLT - PLATELET COUNT 164 10^3/uL (130-450); RED BLOOD COUNT 3.49 10^6/uL (4.20-5.40); RED CELL DISTRIBUTION WIDTH 16.4 % (12.0-15.0); WHITE BLOOD COUNT 4.1 x10^3/uL (4.8-10.8)
[2023-05-01 09:38] LABS: INR 1.1 (0.8-1.2); PT - PROTHROMBIN TIME 12.1 secs (9.9-12.6)
[2023-05-01 09:44] LABS: ALBUMIN 3.4 g/dL (3.2-5.5); ALBUMIN/GLOBULIN RATIO 1.2 (1.0-2.2); BILIRUBIN,TOTAL 0.6 mg/dL (0.2-1.0); CALCIUM 9.2 mg/dL (8.5-10.3); CREATININE 0.6 mg/dL (0.6-1.3); POTASSIUM 4.5 mmol/L (3.5-4.5); TOTAL PROTEIN 6.2 g/dL (6.4-8.9)
--- NOTE | 2023-05-01 09:46 | PROVIDER PROGRESS NOTE ---
Assessment/Plan - Problem List (1) Hepatic infarction Assessment/Plan: --Exact etiology of hepatic infarction is unclear. 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 Thrombophilia disorders increase risk for VTE, DVT, and PE. -- Echo pending to rule out infective endocarditis. Blood cultures shows no growth since for 2 days --Patient denies any history of IV drug use. --Liver enzymes are trending downward. AST 217> 84> 49> 40. ALT 234> 168> 128> 95. ALK phos 212> 241> 240. Plan: --She was given a dose of IV Zosyn on 04/26. Continue to monitor for signs of infection and periodic abscess. -- Daily CMP and INR. If patient becomes encephalopathic or INR increases above 1.8 will transfer to a liver center per GI recommendations. INR today was 1.1. --Continue IV Toradol q6h LUCY and Dilaudid IV q6h for pain management (2) Elevated liver enzymes Assessment/Plan: --Liver enzymes elevated likely due to infarction. Tylenol overdose is also in the differential. --Completed N-acetylcysteine 21-hour protocol. --Hepatitis panel resulted showing normal values. --Patient reports she has been free of alcohol for 2 months. Plan: --Continue to monitor liver enzymes and INR. --Work-up for liver and splenic infarcts as above. -- Alcoholic hepatitis unlikely therefore prednisolone will be held. (3) Pancytopenia Assessment/Plan: --Pancytopenia likely secondary to bone marrow suppression from chronic alcohol use. --Labs show steady improvements in WBC, RBC, Hgb, Hct, Plt count. --Labs on 04/28 show normal Vit B12 and Folate levels. --Iron panel suggestive of iron deficiency. Ferritin is elevated but likely due to inflammation. Plan: --Will continue daily Fe oral supplement. --May require an outpatient hematology evaluation if no etiology is uncovered. --Transfuse if hemoglobin under 7. --Continue prophylactic Lovenox given her infarcts despite downtrending platelet count. Would recommend holding Lovenox if platelet under 20k or if she starts bleeding. (4) Acetaminophen poisoning Assessment/Plan: --Completed 21-hour N-acetylcysteine protocol. --Unclear exactly how much Tylenol patient was taking but she was using it [id number] to manage her abdominal pain. Plan: --Educate patient on future liver injury with prolong Tylenol use. --Holding all Tylenol while she is inpatient. Qualifiers: Encounter type: initial encounter Injury intent: undetermined intent Qualified Code(s): T39.1X4A - Poisoning by 4-Aminophenol derivatives, undetermined, initial encounter (5) Acute on chronic pancreatitis Assessment/Plan: --Patient has had multiple admissions for pancreatitis in the past. She currently follows with gastroenterology at [facility]. --Steady improvement in total protein, albumin, and globulin lab values. Plan: --Continue home Creon. --CT scan does show developing pseudocyst. --Continue IV Toradol q6h LUCY and Dilaudid IV q6h for pain management (6) Gastritis and Nausea Assessment/Plan: --Continue PPI. --Continue minced and moist diet. --Continue zofran sublingual film TID AC --Continue IV Toradol q6h LUCY and Dilaudid IV q6h for pain management Qualifiers: Gastritis type: alcoholic (7) Heart Palpitations Conclusion/Plan: --Will monitor with telemetry and vitals --04/26 TTE show "no cardiac valve disease / vegetation" (8) History of alcohol abuse Assessment/Plan: --Patient has been alcohol free for 2 months per her report. Level negative in ED. Plan: --Not scoring on CIWA, will discontinue. --When discharging offer Acamprosate 666 mg oral tablet TID to support abstaining from alcohol withdrawal. This medication is prefered over naltrexone due to low risk of hepatic failure. (9) Tobacco usage Assessment/Plan: -- PT voiced eagerness to quit smoking. Plan: -- During discharge, patient will be offered nicotine patches or nicotine gum. (10) Hypothyroidism Assessment/Plan: -- TSH on 04/29 show normal levels. - Current Meds Current Meds: Current Medications Generic Name Dose Route Start Last Admin Trade Name Freq PRN Reason Stop Dose Admin Lipase/Protease/Amylase 5 cap 04/27/23 12:00 05/01/23 08:38 Lipase/Protease/Amylase Capsule PO 5 cap TIDWM LUCY Administration Lipase/Protease/Amylase 3 cap 04/30/23 10:22 04/30/23 10:57 Lipase/Protease/Amylase Capsule PO Not Given UD LUCY Enoxaparin Sodium 40 mg 04/27/23 09:00 05/01/23 08:48 Enoxaparin 40 Mg/0.4 Ml Syringe SUBQ 40 mg DAILY LUCY Administration Ferrous Sulfate 325 mg 04/29/23 08:00 05/01/23 08:39 Ferrous Sulfate 325 Mg Tablet PO 325 mg DAILYWM LUCY Administration Hydromorphone HCl 1 mg 04/28/23 08:04 05/01/23 08:49 Hydromorphone 1 Mg/Ml Carpuject IVP 1 mg Q2H PRN Administration Pain 8 to 10 Hydromorphone HCl 0.5 mg 04/30/23 13:00 05/01/23 06:56 Hydromorphone 0.5 Mg/0.5 Ml Syringe IVP 0.5 mg Q6H LUCY Administration Ketorolac Tromethamine 30 mg 04/30/23 13:00 05/01/23 06:35 Ketorolac 30 Mg/Ml Vial IVP 05/05/23 12:59 30 mg Q6HR LUCY Administration Nicotine 1 patch 04/28/23 11:00 05/01/23 08:40 Nicotine 7 Mg Patch TOP 1 patch DAILY LUCY Administration Ondansetron HCl 4 mg 04/30/23 16:00 05/01/23 06:58 Ondansetron Odt 4 Mg Tablet TL 4 mg AC LUCY Administration Oxycodone HCl 5 - 10 mg 04/26/23 19:04 04/30/23 16:08 Oxycodone 5 Mg Tablet PO 5 mg Q4HR PRN Administration Moderate Pain (Level 4-6) Pantoprazole Sodium 40 mg 04/27/23 07:00 05/01/23 06:59 Pantoprazole 40 Mg Tablet PO 40 mg QDAC LUCY Administration Polyethylene Glycol 17 gm 04/30/23 10:00 05/01/23 08:37 Polyethylene Glycol 3350 17 Gm Packet PO 17 gm DAILY LUCY Administration Sodium Chloride 10 ml 04/26/23 15:51 04/30/23 23:42 Sodium Chloride Flush 0.9% 10 Ml Syringe IVP 10 ml PRN PRN Administration NEEDED PER PROVIDER ORDERS Sodium Chloride 10 ml 04/26/23 17:00 05/01/23 08:42 Sodium Chloride Flush 0.9% 10 Ml Syringe IVP 10 ml 0100,0900,1700 LUCY Administration - Lab Result Fish Bone Diagrams: 11/16/23 09:15 05/01/23 09:15 Subjective - Subjective Patient Reports: Abdominal Pain (on upper quadrants which radiates to back), Chest Pain, Fatigue, Nausea, Pain, Other (numbness on right hand fingers) Objective Vital Signs: Vital Signs - 24 hr 04/30/23 04/30/23 05/01/23 15:31 20:08 00:00 Temperature 36.8 C 36.5 C 36.8 C Heart Rate [ 72 81 73 Brachial] Respiratory 16 16 24 Rate Blood Pressure 106/79 122/84 H 119/75 [Right Brachial artery] O2 Saturation 98 99 100 05/01/23 05/01/23 03:51 08:54 Temperature 36.7 C 36.8 C Heart Rate [ 83 78 Brachial] Respiratory 18 18 Rate Blood Pressure 111/68 108/66 [Right Brachial artery] O2 Saturation 96 97 Oxygen O2 Source Room air I&O (Last 24 Hrs): Intake and Output Totals x24h 04/29/23 04/30/23 05/01/23 23:59 23:59 23:59 Intake Total 1700 2456 Output Total 100 2050 Balance 1600 406 General: Alert, Oriented x3, Cooperative, Mild distress HEENT: Atraumatic, PERRLA, EOMI, Other (no icteru) Neuro: Alert, Oriented Times 3, Other (no tremor) Cardiovascular: Regular rate, Normal S1, Normal S2, No murmurs Respiratory: Chest non-tender, No respiratory distress, Breath sounds nml Abdomen: Normal bowel sounds, Soft, No hepatospenomegaly, No masses, Other (pain with light pressure on all upper abdomen) Extremities: No clubbing, No cyanosis, No edema, Normal pulses, No tenderness/swelling Skin: No rashes, No breakdown, No significant lesion - Results Results: Laboratory Results WBC 3.9 x10^3/uL (4.8-10.8) L 04/30/23 09:00 RBC 3.27 10^6/uL (4.20-5.40) L 04/30/23 09:00 Hgb 11.2 g/dL (12.0-16.0) L 04/30/23 09:00 Hct 34.5 % (37.0-47.0) L 04/30/23 09:00 MCV 105.5 fL (81.0-99.0) H 04/30/23 09:00 MCH 34.3 pg (27.0-31.0) H 04/30/23 09:00 MCHC 32.5 g/dL (32.0-36.0) 04/30/23 09:00 RDW 15.9 % (12.0-15.0) H 04/30/23 09:00 Plt Count 118 10^3/uL (130-450) L 04/30/23 09:00 MPV 11.2 fL (7.9-10.8) H 04/30/23 09:00 Neut # (Auto) 1.6 10^3/uL (1.5-6.6) 04/30/23 09:00 Lymph # (Auto) 1.5 10^3/uL (1.5-3.5) 04/30/23 09:00 [place] # (Auto) 0.5 10^3/uL (0.0-1.0) 04/30/23 09:00 Eos # (Auto) 0.2 10^3/uL (0.0-0.7) 04/30/23 09:00 Baso # (Auto) 0.0 10^3/uL (0.0-0.1) 04/30/23 09:00 Absolute Nucleated RBC 0.00 x10^3/uL 04/30/23 09:00 Nucleated RBC % 0.0 /100WBC 04/30/23 09:00 Manual Slide Review Indicated 04/27/23 08:38 WBC Morphology NORMAL APPEARANCE (NORMAL) 04/27/23 08:38 Platelet Estimate DECREASED (<130,000) (NORMAL) 04/27/23 08:38 Platelet Morphology NORMAL APPEARANCE (NORMAL) 04/27/23 08:38 RBC Morph Micro Appear 1+ ANISOCYTOSIS (NORMAL) 04/27/23 08:38 PT 12.3 secs (9.9-12.6) 04/30/23 09:00 INR 1.1 (0.8-1.2) 04/30/23 09:00 APTT 25.2 secs (24.9-33.3) 04/26/23 12:11 Lupus Anticoag aPTT 34.7 sec (0.0-43.5) 04/27/23 08:38 Dil Goran Viper Venom 32.2 sec (0.0-47.0) 04/27/23 08:38 Lupus Anticoag Interp Comment: (.) 04/27/23 08:38 Protein C Activity 96 % (73-180) 04/27/23 08:38 Protein S Activity 40 % (63-140) L 04/27/23 08:38 Antithrombin III Activ 60 % (75-135) L 04/27/23 08:38 Sodium 135 mmol/L (135-145) 04/30/23 09:00 Potassium 3.9 mmol/L (3.5-4.5) 04/30/23 09:00 Chloride 102 mmol/L (101-111) 04/30/23 09:00 Carbon Dioxide 29 mmol/L (21-32) 04/30/23 09:00 Anion Gap 4.0 (6-13) L 04/30/23 09:00 BUN < 2 mg/dL (6-20) L 04/30/23 09:00 Creatinine 0.5 mg/dL (0.6-1.3) L 04/30/23 09:00 Estimated GFR (MDRD) 140 (>89) 04/30/23 09:00 Glucose 124 mg/dL (74-104) H 04/30/23 09:00 POC Whole Bld Glucose 108 mg/dL (70 - 100) H 04/30/23 14:47 Estimat Average Glucose 108 mg/dL (70-100) H 04/28/23 05:08 Hemoglobin A1c % 5.4 % (4.27-6.07) 04/28/23 05:08 Calcium 8.9 mg/dL (8.5-10.3) 04/30/23 09:00 Phosphorus 1.7 mg/dL (2.5-5.0) L 04/26/23 12:11 Magnesium 1.7 mg/dL (1.7-2.3) 04/26/23 12:11 Iron 27 ug/dL (50-212) L 04/28/23 08:56 TIBC 147 ug/dL (250-450) L 04/28/23 08:56 % Saturation 18 % (20-50) L 04/28/23 08:56 Transferrin 105 mg/dL (203-362) L 04/28/23 08:56 Ferritin 368.6 ng/mL (11.0-306.8) H 04/28/23 08:56 Total Bilirubin 0.7 mg/dL (0.2-1.0) 04/30/23 09:00 AST 49 IU/L (10-42) H 04/30/23 09:00 ALT 128 IU/L (10-60) H 04/30/23 09:00 Alkaline Phosphatase 241 IU/L (42-121) H 04/30/23 09:00 Lactate Dehydrogenase > 1200 IU/L (140-271) H 04/26/23 12:11 Total Protein 5.7 g/dL (6.4-8.9) L 04/30/23 09:00 Albumin 3.1 g/dL (3.2-5.5) L 04/30/23 09:00 Globulin 2.6 g/dL (2.1-4.2) 04/30/23 09:00 Albumin/Globulin Ratio 1.2 (1.0-2.2) 04/30/23 09:00 Lipase 59 U/L (11-82) 04/26/23 12:11 Vitamin B12 616 pg/mL (180-914) 04/28/23 08:56 Folate 17.5 ng/mL (5.90 - >24.8) 04/28/23 08:56 TSH 3.80 uIU/mL (0.34-5.60) 04/29/23 08:57 Urine Color YELLOW 04/26/23 12:20 Urine Clarity CLEAR (CLEAR) 04/26/23 12:20 Urine pH 6.0 PH (5.0-7.5) 04/26/23 12:20 Ur Specific [place] <=1.005 (1.002-1.030) 04/26/23 12:20 Urine Protein NEGATIVE mg/dL (NEGATIVE) 04/26/23 12:20 Urine Glucose (UA) NEGATIVE mg/dL (NEGATIVE) 04/26/23 12:20 Urine Ketones NEGATIVE mg/dL (NEGATIVE) 04/26/23 12:20 Urine Occult Blood NEGATIVE (NEGATIVE) 04/26/23 12:20 Urine Nitrite NEGATIVE (NEGATIVE) 04/26/23 12:20 Urine Bilirubin NEGATIVE (NEGATIVE) 04/26/23 12:20 Urine Urobilinogen 0.2 (NORMAL) E.U./dL (NORMAL) 04/26/23 12:20 Ur Leukocyte Esterase NEGATIVE (NEGATIVE) 04/26/23 12:20 Ur Microscopic Review NOT INDICATED 04/26/23 12:20 Urine Culture Comments NOT INDICATED 04/26/23 12:20 Urine HCG, Qual NEGATIVE 04/26/23 12:20 Acetaminophen 9.5 ug/mL 04/26/23 12:11 Ethyl Alcohol < 10.0 mg/dL 04/26/23 12:11 Anti-Cardiolipin IgG Ab <9 GPL U/mL (0-14) 04/27/23 08:38 Anti-Cardiolipin IgM Ab <9 MPL U/mL (0-12) 04/27/23 08:38 Hepatitis A IgM Ab Negative (Negative) 04/27/23 08:38 Hep Bs Antigen Negative (Negative) 04/27/23 08:38 Hep B Core IgM Ab Negative (Negative) 04/27/23 08:38 Hepatitis C Antibody Non Reactive (Non Reactive) 04/27/23 08:38 Hepatitis C Interp Comment (.) 04/27/23 08:38 - Procedures Procedures: Procedures INSERTION OF INFUSION DEV INTO SUP VENA CAVA, PERC APPROACH (04/09/22) INTRODUCTION OF NUTRITIONAL INTO PERIPH VEIN, PERC APPROACH (04/09/22) MANUAL ASSIST DELIV NEC (11/14/14) Sepsis Event Note (H) - Evaluation Current Stage of Sepsis: Ruled out
[2023-05-01] MEDS: oxyCODONE 5 MG TABLET PO PRN (10:16)
[2023-05-02] MEDS: SODIUM CHLORIDE FLUSH 0.9% 10 ML SYRINGE IVP SCH ×3 (00:02→16:09)
[2023-05-02] MEDS: KETOROLAC 30 MG/ML VIAL IVP SCH ×3 (00:02→11:56)
[2023-05-02] MEDS: HYDROmorphone 0.5 MG/0.5 ML SYRINGE IVP SCH ×2 (01:00→06:45)
[2023-05-02] MEDS: ONDANSETRON ODT 4 MG TABLET TL SCH ×3 (05:59→16:08)
[2023-05-02] MEDS: PANTOPRAZOLE 40 MG TABLET PO SCH (05:59)
[2023-05-02] MEDS: LIPASE/PROTEASE/AMYLASE CAPSULE PO SCH ×4 (08:50→16:08)
[2023-05-02] MEDS: FERROUS SULFATE 325 MG TABLET PO SCH (08:50)
[2023-05-02] MEDS: polyethylene glycoL 3350 17 GM PACKET PO SCH (08:51)
[2023-05-02] MEDS: ENOXAPARIN 40 MG/0.4 ML SYRINGE SUBQ SCH (08:51)
[2023-05-02] MEDS: NICOTINE 7 MG PATCH TOP SCH (08:51)
[2023-05-02] MEDS ORDERED: HYDROmorphone 1 MG/ML CARPUJECT IVP PRN ×2 (09:09→10:49)
[2023-05-02 09:55] LABS: BASOPHILS % (AUTO) 0.3 %; EOSINOPHILS # (AUTO) 0.2 10^3/uL (0.0-0.7); EOSINOPHILS % (AUTO) 2.9 %; HCT - HEMATOCRIT 38.4 % (37.0-47.0); HGB - HEMOGLOBIN 12.8 g/dL (12.0-16.0); LYMPHOCYTES % (AUTO) 13.9 %; MEAN CORPUSCULAR HEMOGLOBIN 34.5 pg (27.0-31.0); MEAN CORPUSCULAR HGB CONC 33.3 g/dL (32.0-36.0); MEAN CORPUSCULAR VOLUME 103.5 fL (81.0-99.0); MEAN PLATELET VOLUME 10.6 fL (7.9-10.8); MONOCYTES % (AUTO) 13.6 %; NEUTROPHILS # (AUTO) 4.8 10^3/uL (1.5-6.6); PLT - PLATELET COUNT 232 10^3/uL (130-450); RED BLOOD COUNT 3.71 10^6/uL (4.20-5.40); RED CELL DISTRIBUTION WIDTH 16.3 % (12.0-15.0)
[2023-05-02 10:08] LABS: INR 1.1 (0.8-1.2); PT - PROTHROMBIN TIME 11.9 secs (9.9-12.6)
[2023-05-02 10:19] LABS: ALBUMIN 3.6 g/dL (3.2-5.5); ALBUMIN/GLOBULIN RATIO 1.2 (1.0-2.2); BILIRUBIN,TOTAL 0.8 mg/dL (0.2-1.0); CALCIUM 9.3 mg/dL (8.5-10.3); CREATININE 0.8 mg/dL (0.6-1.3); POTASSIUM 5.2 mmol/L (3.5-4.5); TOTAL PROTEIN 6.5 g/dL (6.4-8.9)
[2023-05-02] MEDS: oxyCODONE 5 MG TABLET PO PRN ×3 (10:28→21:21)
[2023-05-02] MEDS ORDERED: MAGNESIUM HYDROXIDE 2,400 MG/30 ML UDC PO ONE (10:41)
--- NOTE | 2023-05-02 15:43 | PROVIDER PROGRESS NOTE ---
Assessment/Plan - Problem List (1) Hepatic infarction Assessment/Plan: Exact etiology of hepatic infarction is unclear. 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 Thrombophilia disorders increase risk for VTE, DVT, and PE. Patient denies any history of IV drug use. She was given a dose of IV Zosyn x1 on 04/26. Liver enzymes are trending downward. AST 217> 84> 49> 40. ALT 234> 168> 128> 95. ALK phos 212> 241> 240. Plan: Continue to monitor for signs of infection and periodic abscess. Daily CMP and INR. If patient becomes encephalopathic or INR increases above 1.8, she would need transfer to a liver center, per GI recommendations. INR today was 1.1. 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 Thrombophilia disorders increase risk for VTE, DVT, and PE Plan: before [facility], I will call Heme/Onc to get recommendations of what to discharge her on She will need an outpatient Hematology evaluation and mgm (3) Acute on chronic pancreatitis Assessment/Plan: Patient has had multiple admissions for pancreatitis in the past. She currently follows with gastroenterology at [facility]. CT scan does show her chronic pseudocyst. Steady improvement in total protein, albumin, and globulin lab values. Plan: Continue home Creon. Will wean down doses of pain meds. She is willing to try just oral narcotics (4) Gastritis Assessment/Plan: Continue PPI. Continue minced and moist diet. Continue zofran sublingual film TID scheduled AC Will wean meds used for pain management (5) Elevated liver enzymes Assessment/Plan: Liver enzymes elevated likely due to infarction. Tylenol overdose is also in the differential. Completed N-acetylcysteine 21-hour protocol. Viral Hepatitis panel resulted showing normal values. Patient reports she has been free of alcohol for 2 months. Plan: Continue to monitor liver enzymes and INR. Alcoholic hepatitis unlikely therefore prednisolone will be held. (6) Pancytopenia Assessment/Plan: Pancytopenia likely secondary to bone marrow suppression from chronic alcohol use. Labs show steady improvements in WBC, RBC, Hgb, and Plt count (all labs reviewed) Labs on 04/28 show normal Vit B12 and Folate levels. Iron panel shows iron deficiency. Ferritin is elevated but likely due to inflammation. Plan: Continue daily Fe oral supplement. Will recommend an outpatient Hematology evaluation Transfuse if hemoglobin under 7. Continue prophylactic Lovenox given her infarcts, watching the platelet count. Would recommend holding Lovenox if platelet under 20k or if she starts bleeding. (7) History of alcohol abuse Assessment/Plan: Patient has been alcohol free for 2 months per her report. EtOhH level negative in ED. Plan: Supportive care (8) Tobacco usage Assessment/Plan: PT voiced eagerness to quit smoking. Plan: During discharge, patient will be offered nicotine patches or nicotine gum. (9) Hypothyroidism Assessment/Plan: TSH on 04/29 show normal levels. Plan: Cont replacement (10) Acetaminophen poisoning Assessment/Plan: Completed 21-hour N-acetylcysteine protocol. Unclear exactly how much Tylenol patient was taking but she was using it [id number] to manage her abdominal pain. Plan: Educate patient on future liver injury with prolong Tylenol use. Holding all Tylenol while she is inpatient. Qualifiers: Encounter type: initial encounter Injury intent: undetermined intent Qualified Code(s): T39.1X4A - Poisoning by 4-Aminophenol derivatives, undetermined, initial encounter (11) Heart Palpitations Conclusion/Plan: She had complaint of palpitations approximately 3 days ago and telemetry was started, no significant findings on telemetry. Echo done this adm and showed "no cardiac valve disease / vegetation" Plan: Will stop telem - Current Meds Current Meds: Current Medications Generic Name Dose Route Start Last Admin Trade Name Freq PRN Reason Stop Dose Admin Lipase/Protease/Amylase 5 cap 04/27/23 12:00 05/02/23 11:51 Lipase/Protease/Amylase Capsule PO 5 cap TIDWM LUCY Administration Lipase/Protease/Amylase 3 cap 04/30/23 10:22 05/02/23 09:11 Lipase/Protease/Amylase Capsule PO Not Given UD LUCY Enoxaparin Sodium 40 mg 04/27/23 09:00 05/02/23 08:51 Enoxaparin 40 Mg/0.4 Ml Syringe SUBQ 40 mg DAILY LUCY Administration Ferrous Sulfate 325 mg 04/29/23 08:00 05/02/23 08:50 Ferrous Sulfate 325 Mg Tablet PO 325 mg DAILYWM LUCY Administration Ketorolac Tromethamine 30 mg 04/30/23 13:00 05/02/23 11:56 Ketorolac 30 Mg/Ml Vial IVP 05/05/23 12:59 30 mg Q6HR LUCY Administration Nicotine 1 patch 04/28/23 11:00 05/02/23 08:51 Nicotine 7 Mg Patch TOP 1 patch DAILY LUCY Administration Ondansetron HCl 4 mg 04/30/23 16:00 05/02/23 11:06 Ondansetron Odt 4 Mg Tablet TL 4 mg AC LUCY Administration Oxycodone HCl 5 mg 05/02/23 09:10 05/02/23 10:28 Oxycodone 5 Mg Tablet PO 5 mg Q4HR PRN Administration Moderate Pain (Level 4-6) Pantoprazole Sodium 40 mg 04/27/23 07:00 05/02/23 05:59 Pantoprazole 40 Mg Tablet PO 40 mg QDAC LUCY Administration Polyethylene Glycol 17 gm 04/30/23 10:00 05/02/23 08:51 Polyethylene Glycol 3350 17 Gm Packet PO 17 gm DAILY LUCY Administration Sodium Chloride 10 ml 04/26/23 15:51 04/30/23 23:42 Sodium Chloride Flush 0.9% 10 Ml Syringe IVP 10 ml PRN PRN Administration NEEDED PER PROVIDER ORDERS Sodium Chloride 10 ml 04/26/23 17:00 05/02/23 08:52 Sodium Chloride Flush 0.9% 10 Ml Syringe IVP 10 ml 0100,0900,1700 LUCY Administration - Lab Result Fish Bone Diagrams: 05/02/23 09:37 05/02/23 09:37 - Additional Planning My Orders: My Active Orders 05/02/23 09:10 Out of bed 4+ hours [RC] QID oxyCODONE [Roxicodone] 5 mg PO Q4HR PRN 05/02/23 10:49 HYDROmorphone 1MG CARP [Dilaudid 1Mg Carp] 1 mg IVP Q4H PRN Subjective - Subjective Patient Reports: Resting Comfortably, Pain (Had pain this a.m. She has been requesting the narcotics exactly when due) Objective Vital Signs: Vital Signs - 24 hr 05/01/23 05/01/23 05/02/23 20:17 23:59 05:00 Temperature 36.8 C 37.2 C 37.0 C Heart Rate [ 75 72 74 Brachial] Respiratory 16 16 16 Rate Blood Pressure 112/77 115/68 110/65 [Right Brachial artery] O2 Saturation 95 95 97 05/02/23 05/02/23 09:00 13:00 Temperature 37.5 C 36.8 C Heart Rate [ 108 H 98 Brachial] Respiratory 18 18 Rate Blood Pressure 112/67 110/67 [Right Brachial artery] O2 Saturation 93 97 Oxygen O2 Source Room air I&O (Last 24 Hrs): Intake and Output Totals x24h 04/30/23 05/01/23 05/02/23 23:59 23:59 23:59 Intake Total 2456 800 360 Output Total 2050 Balance 406 800 360 General: Alert, Oriented x3 HEENT: Mucous membr. moist/pink Neck: Supple, No JVD Neuro: Alert, Non Focal Cardiovascular: Regular rate, No murmurs Respiratory: No respiratory distress, Breath sounds nml Abdomen: Normal bowel sounds, Soft, No tenderness Extremities: No clubbing, No edema, No tenderness/swelling - Results Results: Laboratory Results WBC 7.0 x10^3/uL (4.8-10.8) 05/02/23 09:37 RBC 3.71 10^6/uL (4.20-5.40) L 05/02/23 09:37 Hgb 12.8 g/dL (12.0-16.0) 05/02/23 09:37 Hct 38.4 % (37.0-47.0) 05/02/23 09:37 MCV 103.5 fL (81.0-99.0) H 05/02/23 09:37 MCH 34.5 pg (27.0-31.0) H 05/02/23 09:37 MCHC 33.3 g/dL (32.0-36.0) 05/02/23 09:37 RDW 16.3 % (12.0-15.0) H 05/02/23 09:37 Plt Count 232 10^3/uL (130-450) 05/02/23 09:37 MPV 10.6 fL (7.9-10.8) 05/02/23 09:37 Neut # (Auto) 4.8 10^3/uL (1.5-6.6) 05/02/23 09:37 Lymph # (Auto) 1.0 10^3/uL (1.5-3.5) L 05/02/23 09:37 [place] # (Auto) 1.0 10^3/uL (0.0-1.0) 05/02/23 09:37 Eos # (Auto) 0.2 10^3/uL (0.0-0.7) 05/02/23 09:37 Baso # (Auto) 0.0 10^3/uL (0.0-0.1) 05/02/23 09:37 Absolute Nucleated RBC 0.00 x10^3/uL 05/02/23 09:37 Nucleated RBC % 0.0 /100WBC 05/02/23 09:37 Manual Slide Review Indicated 04/27/23 08:38 WBC Morphology NORMAL APPEARANCE (NORMAL) 04/27/23 08:38 Platelet Estimate DECREASED (<130,000) (NORMAL) 04/27/23 08:38 Platelet Morphology NORMAL APPEARANCE (NORMAL) 04/27/23 08:38 RBC Morph Micro Appear 1+ ANISOCYTOSIS (NORMAL) 04/27/23 08:38 PT 11.9 secs (9.9-12.6) 05/02/23 09:37 INR 1.1 (0.8-1.2) 05/02/23 09:37 APTT 25.2 secs (24.9-33.3) 04/26/23 12:11 Lupus Anticoag aPTT 34.7 sec (0.0-43.5) 04/27/23 08:38 Dil Goran Viper Venom 32.2 sec (0.0-47.0) 04/27/23 08:38 Lupus Anticoag Interp Comment: (.) 04/27/23 08:38 Protein C Activity 96 % (73-180) 04/27/23 08:38 Protein S Activity 40 % (63-140) L 04/27/23 08:38 Antithrombin III Activ 60 % (75-135) L 04/27/23 08:38 Factor V Leiden Mutat Comment (.) 04/27/23 08:38 Sodium 131 mmol/L (135-145) L 05/02/23 09:37 Potassium 5.2 mmol/L (3.5-4.5) H 05/02/23 09:37 Chloride 100 mmol/L (101-111) L 05/02/23 09:37 Carbon Dioxide 25 mmol/L (21-32) 05/02/23 09:37 Anion Gap 6.0 (6-13) 05/02/23 09:37 BUN 6 mg/dL (6-20) 05/02/23 09:37 Creatinine 0.8 mg/dL (0.6-1.3) 05/02/23 09:37 Estimated GFR (MDRD) 81 (>89) L 05/02/23 09:37 Glucose 94 mg/dL (74-104) 05/02/23 09:37 POC Whole Bld Glucose 108 mg/dL (70 - 100) H 04/30/23 14:47 Estimat Average Glucose 108 mg/dL (70-100) H 04/28/23 05:08 Hemoglobin A1c % 5.4 % (4.27-6.07) 04/28/23 05:08 Calcium 9.3 mg/dL (8.5-10.3) 05/02/23 09:37 Phosphorus 1.7 mg/dL (2.5-5.0) L 04/26/23 12:11 Magnesium 1.7 mg/dL (1.7-2.3) 04/26/23 12:11 Iron 27 ug/dL (50-212) L 04/28/23 08:56 TIBC 147 ug/dL (250-450) L 04/28/23 08:56 % Saturation 18 % (20-50) L 04/28/23 08:56 Transferrin 105 mg/dL (203-362) L 04/28/23 08:56 Ferritin 368.6 ng/mL (11.0-306.8) H 04/28/23 08:56 Total Bilirubin 0.8 mg/dL (0.2-1.0) 05/02/23 09:37 AST 25 IU/L (10-42) 05/02/23 09:37 ALT 64 IU/L (10-60) H 05/02/23 09:37 Alkaline Phosphatase 230 IU/L (42-121) H 05/02/23 09:37 Lactate Dehydrogenase > 1200 IU/L (140-271) H 04/26/23 12:11 Total Protein 6.5 g/dL (6.4-8.9) 05/02/23 09:37 Albumin 3.6 g/dL (3.2-5.5) 05/02/23 09:37 Globulin 2.9 g/dL (2.1-4.2) 05/02/23 09:37 Albumin/Globulin Ratio 1.2 (1.0-2.2) 05/02/23 09:37 Lipase 59 U/L (11-82) 04/26/23 12:11 Vitamin B12 616 pg/mL (180-914) 04/28/23 08:56 Folate 17.5 ng/mL (5.90 - >24.8) 04/28/23 08:56 TSH 3.80 uIU/mL (0.34-5.60) 04/29/23 08:57 Urine Color YELLOW 04/26/23 12:20 Urine Clarity CLEAR (CLEAR) 04/26/23 12:20 Urine pH 6.0 PH (5.0-7.5) 04/26/23 12:20 Ur Specific [place] <=1.005 (1.002-1.030) 04/26/23 12:20 Urine Protein NEGATIVE mg/dL (NEGATIVE) 04/26/23 12:20 Urine Glucose (UA) NEGATIVE mg/dL (NEGATIVE) 04/26/23 12:20 Urine Ketones NEGATIVE mg/dL (NEGATIVE) 04/26/23 12:20 Urine Occult Blood NEGATIVE (NEGATIVE) 04/26/23 12:20 Urine Nitrite NEGATIVE (NEGATIVE) 04/26/23 12:20 Urine Bilirubin NEGATIVE (NEGATIVE) 04/26/23 12:20 Urine Urobilinogen 0.2 (NORMAL) E.U./dL (NORMAL) 04/26/23 12:20 Ur Leukocyte Esterase NEGATIVE (NEGATIVE) 04/26/23 12:20 Ur Microscopic Review NOT INDICATED 04/26/23 12:20 Urine Culture Comments NOT INDICATED 04/26/23 12:20 Urine HCG, Qual NEGATIVE 04/26/23 12:20 Acetaminophen 9.5 ug/mL 04/26/23 12:11 Ethyl Alcohol < 10.0 mg/dL 04/26/23 12:11 Anti-Cardiolipin IgG Ab <9 GPL U/mL (0-14) 04/27/23 08:38 Anti-Cardiolipin IgM Ab <9 MPL U/mL (0-12) 04/27/23 08:38 Hepatitis A IgM Ab Negative (Negative) 04/27/23 08:38 Hep Bs Antigen Negative (Negative) 04/27/23 08:38 Hep B Core IgM Ab Negative (Negative) 04/27/23 08:38 Hepatitis C Antibody Non Reactive (Non Reactive) 04/27/23 08:38 Hepatitis C Interp Comment (.) 04/27/23 08:38 - Procedures Procedures: Procedures INSERTION OF INFUSION DEV INTO SUP VENA CAVA, PERC APPROACH (04/09/22) INTRODUCTION OF NUTRITIONAL INTO PERIPH VEIN, PERC APPROACH (04/09/22) MANUAL ASSIST DELIV NEC (11/14/14) Sepsis Event Note (H) - Evaluation Current Stage of Sepsis: Ruled out
[2023-05-03] MEDS: PANTOPRAZOLE 40 MG TABLET PO SCH (06:29)
[2023-05-03] MEDS: ONDANSETRON ODT 4 MG TABLET TL SCH ×2 (06:29→11:36)
[2023-05-03 07:49] VITALS: BP 110/67; O2SAT 96
[2023-05-03] MEDS: NICOTINE 7 MG PATCH TOP SCH (08:30)
[2023-05-03] MEDS: ENOXAPARIN 40 MG/0.4 ML SYRINGE SUBQ SCH (08:31)
[2023-05-03] MEDS: FERROUS SULFATE 325 MG TABLET PO SCH (08:31)
[2023-05-03] MEDS: LIPASE/PROTEASE/AMYLASE CAPSULE PO SCH ×3 (08:36→12:09)
[2023-05-03] MEDS: polyethylene glycoL 3350 17 GM PACKET PO SCH (08:37)
[2023-05-03] MEDS ORDERED: LIPASE/PROTEASE/AMYLASE CAPSULE PO PRN (08:56)
[2023-05-03 09:14] LABS: BASOPHILS % (AUTO) 0.5 %; EOSINOPHILS % (AUTO) 0.2 %; HCT - HEMATOCRIT 38.4 % (37.0-47.0); HGB - HEMOGLOBIN 12.9 g/dL (12.0-16.0); LYMPHOCYTES % (AUTO) 15.6 %; MEAN CORPUSCULAR HEMOGLOBIN 34.3 pg (27.0-31.0); MEAN CORPUSCULAR HGB CONC 33.6 g/dL (32.0-36.0); MEAN CORPUSCULAR VOLUME 102.1 fL (81.0-99.0); MEAN PLATELET VOLUME 10.2 fL (7.9-10.8); NEUTROPHILS % (AUTO) 67.5 %; PLT - PLATELET COUNT 221 10^3/uL (130-450); RED BLOOD COUNT 3.76 10^6/uL (4.20-5.40); WHITE BLOOD COUNT 4.3 x10^3/uL (4.8-10.8)
[2023-05-03 09:16] LABS: ABNORMAL LYMPHS % (MANUAL) 0 %; BAND NEUTROPHILS % (MANUAL) 0 %
[2023-05-03 09:20] LABS: INR 1.2 (0.8-1.2); PT - PROTHROMBIN TIME 12.9 secs (9.9-12.6)
[2023-05-03 09:39] LABS: ALBUMIN 3.5 g/dL (3.2-5.5); ALBUMIN/GLOBULIN RATIO 1.2 (1.0-2.2); BILIRUBIN,TOTAL 0.7 mg/dL (0.2-1.0); CREATININE 0.8 mg/dL (0.6-1.3); POTASSIUM 4.2 mmol/L (3.5-4.5); TOTAL PROTEIN 6.5 g/dL (6.4-8.9)
[2023-05-03 09:45] LABS: DIFFERENTIAL COMMENT MANUAL DIFFERENTIAL; EOSINOPHILS # (MANUAL) 0.1 10^3/uL (0-0.7); LYMPHOCYTES # (MANUAL) 0.6 10^3/uL (1.5-3.5); LYMPHOCYTES % (MANUAL) 15 %; MONOCYTES # (MANUAL) 0.6 10^3/uL (0.0-1.0); PLATELET ESTIMATE, MANUAL NORMAL (130-450,000) (NORMAL); PLATELET MORPHOLOGY NORMAL APPEARANCE (NORMAL); RBC MORPHOLOGY (MULTIPLE) NORMAL APPEARANCE (NORMAL)
--- NOTE | 2023-05-03 13:41 | Discharge Plan ---
Discharge Plan Problem Reviewed?: Yes Disposition: Home, Self Care Condition: Fair Prescriptions: oxyCODONE [Roxicodone] 5 mg PO Q8HR PRN #10 tab PRN Reason: Moderate Pain (Level 4-6) Diet: Soft Activity Restrictions: Activity as Tolerated Shower Restrictions: No Driving Restrictions: No Health Concerns: You were hospitalized to treat abdominal pain and we found you to have infarction of the liver and spleen, caused by blood clots. We also saw the pancreatic cyst that has been seen before. We did testing to see why you may have blood clots going to the liver (that have infarction), and we found that you have a blood disorder called Protein S deficiency and Antithrombin III deficiency. Both of these deficiencies are probably due to having alcoholic liver disease. This means you have a higher risk of getting blood clots which can travel to any organ and cause damage. You were on a blood clot preventative, blood thinner medicine called Lovenox while you were here. You needed many days of narcotic medications, IV fluids and slow diet adjustments. You are being discharged home today. You are advised to TOTALLY AVOID ANY ALCOHOL INTAKE. Please resume all your usual pre-hospital medications. Several tablets of oxycodone have prescribed for you to use for severe pain. The prescription was electronically sent to your [facility] pharmacy in [place]. Today I reached out to (with 5 phone calls) and spoke to the Liver specialist (Pump Installation And Servicer) at [facility] and the Blood specialist (Duct Maker) at , who recommended that you be seen at a Hematology Clinic either at [facility] (or at ), for people that have Protein S deficiency and Antithrombin III deficiency. You should also have a follow-up soon with your usual Environmental Conflict Manager. I will be sending a summary to your Environmental Conflict Manager with all the above information aand this recommendation. Plan of Treatment: As above. Care Goals: Improvement in symptoms and stabilization are the goals. Assessment: Patient understands and is agreeable with the plan. Additional Instructions or Follow Up instructions: If you have new or worsening symptoms, call your Environmental Conflict Manager for advice, or come to the ER. No Smoking: If you smoke, Please STOP! Call for help.
--- NOTE | 2023-05-03 14:44 | DISCHARGE SUMMARY ---
Discharge Summary Admit Date: 04/26/23 Discharge Date: 05/03/23 Discharging Provider: Dr Deborah Ortiz Primary Care Provider: LEIA Leblanc, Dr Barton (GI at [facility]) Condition at Discharge: Fair Discharge Disposition: 01 Home, Self Care - HPI History of Present Illness: Patient is a 37-year-old female with a past medical history of alcohol abuse, multiple episodes of alcoholic pancreatitis, has chronic pancreatic pseudocyst, depression/anxiety, GERD who presented to the ED due to complaints of epigastric pain. She was previously evaluated a day prior where she underwent an ultrasound showing hepatomegaly, diffuse hepatic steatosis and unremarkable gallbladder and pancreas. She presented again today with similar but worsening epigastric abdominal pain. A CT abdomen/pelvis was performed showing evidence of a pancreatic phlegmon as well as her pancreatic pseudocyst. There was also hepatomegaly with a wedge-shaped infarct in the liver and spleen, consistent with infraction. Patient had a significant elevations in her liver enzymes. She reports she has been taking Tylenol at home but is unclear of the exact amount. She denied any alcohol intake for 2.5 mos. The case was discussed with her Water Plant Maintenance Mechanic at [facility] who recommendedmanagement here for her pain, but to transfer her if her INR elevates greater than 1.8 or she becomes encephalopathic, to a liver transplant facility such as the [facility]. During my evaluation, patient reports she has been free of alcohol for several months. She reports she has had alcohol withdrawn in the past without seizures. Patient denies any fevers or chills. She was started on empiric N-acetylcysteine and given a dose of Zosyn empiric, also started on iv fluids, pain meds and antiemetics. - HOSPITAL COURSE Hospital Course: (1) Hepatic infarction Etiology of hepatic infarction W/U with serology showed she has Proteins S and antithrombin III deficiency. Thrombophilia disorders increase risk for VTE, DVT, and PE. Patient denied any history of IV drug use. She was given an empiric dose of IV Zosyn x1, and we monitored her LFTs and her clinical status for worsening with signs of infection or abscess, but she and her LFTs slowly improved. Her INR remained normal and she had no encephalopathy. (2) Protein S deficiency W/U showed Proteins S and antithrombin III deficiency, probably caused by her liver synthesis problems. Since thrombophilia disorders increase risk for VTE, DVT, and PE, she was put on Lovenox 40 mg subcu daily prophylaxis while here. She has never had VTE before and no FH of VTE. I reached out to and spoke to the Pig Machine Operator Helper and the Economic Analysis Director, who did not recommend starting anticogalation, but did recommend that she be seen KIRSTEN at a Hematology Clinic either at [facility] or at . (3) Elevated liver enzymes Liver enzymes were very elevated (initial AST 5446, ALT 698) likely due to liver infarction and Tylenol overuse. She completed N-acetylcysteine 21-hour protocol. Viral Hepatitis panel resulted showing normal values. Patient reported being free of alcohol for 2.5 months. Alcoholic hepatitis was unlikely, therefore prednisolone was not used. Her INR remained normal, and her LFTs slwly declined. (4) Acute on chronic pancreatitis Patient has had multiple admissions for pancreatitis in the past. CT scan does showed her chronic pseudocyst. Her diet was liquids>> bland, and we gave narco tics then weaned down doses of pain meds (5) Gastritis Continued PPI and gave pain meds and Zofran sublingual film TID scheduled before meals (6) Pancytopenia Pancytopenia likely secondary to bone marrow suppression from chronic alcohol use. Labs showed steady improvements in WBC, Hgb, and Plts. Labs showed normal Vit B12 and Folate levels, but Iron panel showed iron deficiency. We continued daily Iron oral supplement. (7) History of alcohol abuse Patient has been alcohol free for 2.5 months, per her report. EtOH level was negative in ED. (8) Tobacco usage She voiced eagerness to quit smoking. (9) Hypothyroidism TSH showed normal levels. She was kept on her med. (10) Acetaminophen poisoning Unclear exactly how much Tylenol patient was taking but she was using it [id number] to manage her abdominal pain. Completed 21-hour N- acetylcysteine protocol. She was educated to not use Tylenol for pain management, given her liver disease. (11) Heart Palpitations She had complaints of palpitations and telemetry was started, no significant findings on telemetry. Echo done this adm and showed "no cardiac valve disease / vegetation" - ALLERGIES Allergies/Adverse Reactions: Allergies Allergy/AdvReac Type Severity Reaction Status Date / Time No Known Drug Allergies Allergy Verified 04/07/23 11:22 - MEDICATIONS Home Medications: Ambulatory Orders Medication Instructions Recorded Confirmed Lipase/Protease/Amylase [Creon Dr 24,000 unit PO TIDWM 07/30/22 04/27/23 24,000 Unit Capsule] Ondansetron Odt [Zofran Odt] 4 mg TL Q6H PRN #10 tablet 11/10/22 04/27/23 Acetaminophen [Tylenol] 2,000 mg PO BID 04/27/23 04/27/23 Sodium Bicarbonate/Citric Acid 1 each PO BID PRN 04/27/23 04/27/23 [[place] Heartburn Tab Eff] Pantoprazole [Protonix] 40 mg PO QDAC tab 05/03/23 oxyCODONE [Roxicodone] 5 mg PO Q8HR PRN #10 tab 05/03/23 - PHYSICAL EXAM AT DISCHARGE General Appearance: positive: No acute distress, Alert Eyes Bilateral: positive: Normal inspection, EOMI ENT: positive: ENT inspection nml, No signs of dehydration Neck: positive: Nml inspection, No JVD Respiratory: positive: No respiratory distress, Breath sounds nml Cardiovascular: positive: Regular rate & rhythm, No murmur Abdomen: positive: Non-tender, Nml bowel sounds, No distention Skin: positive: Warm, Dry Extremities: positive: Non-tender, No pedal edema Neurologic/Psychiatric: positive: Oriented x3, Motor nml, Other (No tremor) - LABS Result Diagrams: 05/03/23 09:07 05/03/23 09:07 - DIAGNOSTIC IMAGING Diagnostic Imaging Results: Final report reviewed - FOLLOW UP Follow Up: See PCP and Water Plant Maintenance Mechanic after discharge. - TIME SPENT Time Spent in Discharge (Minutes): 55
== END 2023-05-03 15:04 | disposition home or self-care (01) | DRG 441 ==
LOC: EDUNIT# → ED 11:19 → MS2 15:51
PROVIDERS: ADMIT Family Medicine; ATTEND Internal Medicine
DX: K76.3 Infarction of liver (principal); K85.90 Acute pancreatitis without necrosis or infection, unspecified; D68.59 Other primary thrombophilia; K86.1 Other chronic pancreatitis; K86.3 Pseudocyst of pancreas; D61.818 Other pancytopenia; R74.8 Abnormal levels of other serum enzymes; F10.11 Alcohol abuse, in remission; E03.9 Hypothyroidism, unspecified; T39.1X1A Poisoning by 4-Aminophenol derivatives, accidental (unintentional), initial encounter; Y92.009 Unspecified place in unspecified non-institutional (private) residence as the place of occurrence of the external cause; R00.2 Palpitations; F32.9 Major depressive disorder, single episode, unspecified; F41.9 Anxiety disorder, unspecified; F17.210 Nicotine dependence, cigarettes, uncomplicated; K29.20 Alcoholic gastritis without bleeding
CPT/HCPCS: 36415; 74177; 80053; 80074; 80307; 80320; 81003; 81025; 81241; 82607; 82728; 82746; 83036; 83540; 83615; 83690; 83735; 84100; 84443; 84466; 85025; 85300; 85303; 85306; 85598; 85610; 85613; 85730; 85732; 86147; 87040; 93306; 96365; 96366; 96368; 96375; 99285; A9270; J0132; J1170; J1650; J3411; J3490; J7040; J7120; Q0162; Q9967; 81001; 87086

== ENCOUNTER 2023-07-07 16:59 | Emergency (ER) | payer MEDICAID ==
--- NOTE | 2023-07-07 17:23 | ED Physician Documentation ---
PD HPI MHE - Stated complaint Stated Complaint: DETOX - Chief complaint Chief Complaint: Abd Pain - History obtained from History obtained from: Patient, Family - Additional information Additional information: 37-year-old woman presents with her mother requesting detox from alcohol. She has been drinking heavily lately and also used meth once a few days ago. Sounds like they have already been advised to contact [facility] by Dewey Tristan and are here for medical clearance. Only major complaint is she fell and hurt her knees a few days ago. No ongoing abdominal pain or withdrawal symptoms. PD PAST MEDICAL HISTORY - Past Medical History Past Medical History: Yes Cardiovascular: None Respiratory: None Neuro: Headaches Endocrine/Autoimmune: None GI: GERD, Pancreatitis, Cholelithiasis LIMITED RADIOLOGY TECHNICIAN: None : Kidney stones HEENT: None Psych: Depression, Anxiety, Panic attacks Musculoskeletal: None Derm: None - Past Surgical History Past Surgical History: Yes General: EGD /LIMITED RADIOLOGY TECHNICIAN: Other HEENT: Tonsil/Adenoidectomy - Present Medications Home Medications: Ambulatory Orders Medication Instructions Recorded Confirmed Lipase/Protease/Amylase [Creon Dr 24,000 unit PO TIDWM 07/30/22 07/07/23 24,000 Unit Capsule] Ondansetron Odt [Zofran Odt] 4 mg TL Q6H PRN #10 tablet 11/10/22 07/07/23 oxyCODONE [Roxicodone] 5 mg PO Q8HR PRN #10 tab 05/03/23 07/07/23 Escitalopram Oxalate 20 mg PO DAILY 07/07/23 07/07/23 - Allergies Allergies/Adverse Reactions: Allergies Allergy/AdvReac Type Severity Reaction Status Date / Time No Known Drug Allergies Allergy Verified 07/07/23 17:19 - Social History Does the pt smoke?: Yes Smoking Status: Current every day smoker Does the pt drink ETOH?: Yes Does the pt have substance abuse?: Yes - Immunizations Immunizations are current?: Yes - POLST Patient has POLST: No POLST Status: Full Code PD ED PE NORMAL - Vitals Vital signs reviewed: Yes - General General: Alert and oriented X 3, No acute distress - HEENT HEENT: PERRL, EOMI - Neck Neck: Supple, no meningeal sign, No bony TTP - Cardiac Cardiac: RRR, No murmur - Respiratory Respiratory: No respiratory distress, Clear bilaterally - Abdomen Abdomen: Non tender - Back Back: No CVA TTP, No spinal TTP - Derm Derm: Normal color, Warm and dry - Extremities Extremities: Other (Bilateral knee bruises with some TTP L anterior knee) - Neuro Neuro: Alert and oriented X 3, Normal speech Results - Vitals Vitals: Vital Signs - 24 hr 07/07/23 17:07 Temperature 36 C L Heart Rate 108 H Respiratory 16 Rate Blood Pressure 117/81 H O2 Saturation 96 Oxygen O2 Source Room air - Labs Labs: Laboratory Tests 07/07/23 07/07/23 07/07/23 17:25 17:25 17:36 WBC 7.5 RBC 4.21 Hgb 14.2 Hct 43.3 MCV 102.9 H MCH 33.7 H MCHC 32.8 RDW 15.0 Plt Count 192 MPV 9.8 Neut # (Auto) 4.0 Lymph # (Auto) 3.0 Hubbard # (Auto) 0.3 Eos # (Auto) 0.0 Baso # (Auto) 0.1 Absolute Nucleated RBC 0.00 Nucleated RBC % 0.0 Sodium Potassium Chloride Carbon Dioxide Anion Gap BUN Creatinine Estimated GFR (MDRD) Glucose Calcium Magnesium Total Bilirubin AST ALT Alkaline Phosphatase Total Creatine Kinase Total Protein Albumin Globulin Albumin/Globulin Ratio Lipase TSH Urine Color YELLOW Urine Clarity CLEAR Urine pH 6.0 Ur Specific [place] <=1.005 Urine Protein NEGATIVE Urine Glucose (UA) NEGATIVE Urine Ketones NEGATIVE Urine Occult Blood NEGATIVE Urine Nitrite NEGATIVE Urine Bilirubin NEGATIVE Urine Urobilinogen 0.2 (NORMAL) Ur Leukocyte Esterase NEGATIVE Ur Microscopic Review NOT INDICATED Urine Culture Comments NOT INDICATED Urine HCG, Qual NEGATIVE Salicylates Urine Opiates Screen NEGATIVE Ur Buprenorphine Scrn NEGATIVE Ur Oxycodone Screen NEGATIVE Urine Methadone Screen NEGATIVE Acetaminophen Ur Barbiturates Screen NEGATIVE Ur Tricyclics Screen NEGATIVE Ur Phencyclidine Scrn NEGATIVE Ur Amphetamine Screen NEGATIVE U Methamphetamines Scrn NEGATIVE U Benzodiazepines Scrn NEGATIVE Urine Cocaine Screen NEGATIVE U Cannabinoids Screen POSITIVE H Ur Drug Screen Comment CUTOFF CONC BELOW: Ethyl Alcohol SARS-CoV-2 (PCR) NOT DETECTED 07/07/23 17:36 WBC RBC Hgb Hct MCV MCH MCHC RDW Plt Count MPV Neut # (Auto) Lymph # (Auto) Hubbard # (Auto) Eos # (Auto) Baso # (Auto) Absolute Nucleated RBC Nucleated RBC % Sodium 138 Potassium 3.6 Chloride 104 Carbon Dioxide 18 L Anion Gap 16.0 H BUN 6 Creatinine 0.4 L Estimated GFR (MDRD) 181 Glucose 88 Calcium 8.7 Magnesium 1.6 L Total Bilirubin 0.7 AST 44 H ALT 32 Alkaline Phosphatase 118 Total Creatine Kinase 44 Total Protein 7.3 Albumin 4.0 Globulin 3.3 Albumin/Globulin Ratio 1.2 Lipase 12 TSH 1.36 Urine Color Urine Clarity Urine pH Ur Specific [place] Urine Protein Urine Glucose (UA) Urine Ketones Urine Occult Blood Urine Nitrite Urine Bilirubin Urine Urobilinogen Ur Leukocyte Esterase Ur Microscopic Review Urine Culture Comments Urine HCG, Qual Salicylates < 1.5 Urine Opiates Screen Ur Buprenorphine Scrn Ur Oxycodone Screen Urine Methadone Screen Acetaminophen < 0.1 Ur Barbiturates Screen Ur Tricyclics Screen Ur Phencyclidine Scrn Ur Amphetamine Screen U Methamphetamines Scrn U Benzodiazepines Scrn Urine Cocaine Screen U Cannabinoids Screen Ur Drug Screen Comment Ethyl Alcohol 340.9 SARS-CoV-2 (PCR) - Rads (name of study) X-rays of both knees were negative for fracture or acute trauma. Relevant Findings:: Final report received, EMP independent interpretation of test PD Medical Decision Making - ED course ED course: She presents with her mother for alcohol detox. She is still apparently intoxicated corroborated with a blood alcohol of 340. Otherwise CBC showing macrocytosis, CMP with mild hypomagnesemia repleted orally, urine drug screen positive for cannabis, no methamphetamine although she says she used a few days ago. She was encouraged to go to detox. Departure - Departure Disposition: 01 Home, Self Care Clinical Impression: Alcohol abuse, Contusion of right knee, Contusion of left knee Condition: Good Record reviewed to determine appropriate education?: Yes Instructions: ED Drug Abuse General, ED Alcohol Intoxication Comments: You were seen today for alcohol intoxication. Your blood alcohol was 340 which is not consistent with your reported history of not having drank since yesterday. The x-rays of both knees were negative. Otherwise your labs were generally unremarkable except for mild liver inflammation and cannabis and a drug screen, the year is no methamphetamine on your drug screen today. We think you would benefit from admission for detoxification and/or rehabilitation from alcohol and/or drugs. The closest facility that does this is in [place]. It is: [facility] [address] [place] [address] Call them at [phone] to arrange an intake appointment. Forms: PCP List
[2023-07-07 17:35] LABS: BILIRUBIN,URINE NEGATIVE (NEGATIVE); GLUCOSE, URINE (UA) NEGATIVE (NEGATIVE); KETONES,URINE (UA) NEGATIVE (NEGATIVE); LEUKOCYTE ESTERASE, URINE NEGATIVE (NEGATIVE); NITRITE,URINE NEGATIVE (NEGATIVE); OCCULT BLOOD,URINE NEGATIVE (NEGATIVE); PROTEIN,URINE NEGATIVE (NEGATIVE); UROBILINOGEN,URINE 0.2 (NORMAL) E.U./dL (NORMAL)
[2023-07-07 17:45] LABS: BASOPHILS # (AUTO) 0.1 10^3/uL (0.0-0.1); BASOPHILS % (AUTO) 1.2 %; EOSINOPHILS % (AUTO) 0.1 %; HCT - HEMATOCRIT 43.3 % (37.0-47.0); HGB - HEMOGLOBIN 14.2 g/dL (12.0-16.0); LYMPHOCYTES % (AUTO) 40.2 %; MEAN CORPUSCULAR HEMOGLOBIN 33.7 pg (27.0-31.0); MEAN CORPUSCULAR HGB CONC 32.8 g/dL (32.0-36.0); MEAN CORPUSCULAR VOLUME 102.9 fL (81.0-99.0); MEAN PLATELET VOLUME 9.8 fL (7.9-10.8); MONOCYTES # (AUTO) 0.3 10^3/uL (0.0-1.0); MONOCYTES % (AUTO) 4.5 %; NEUTROPHILS % (AUTO) 53.7 %; PLT - PLATELET COUNT 192 10^3/uL (130-450); RED BLOOD COUNT 4.21 10^6/uL (4.20-5.40); WHITE BLOOD COUNT 7.5 x10^3/uL (4.8-10.8)
[2023-07-07 17:46] LABS: AMPHETAMINE SCREEN,URINE NEGATIVE (NEGATIVE); BARBITURATE SCREEN,UR NEGATIVE (NEGATIVE); BENZODIAZEPINES SCREEN, URINE NEGATIVE (NEGATIVE); BUPRENORPHINE SCREEN, URINE NEGATIVE (NEGATIVE); CLARITY,URINE CLEAR (CLEAR); COCAINE SCREEN URINE NEGATIVE (NEGATIVE); HCG UR QUAL NEGATIVE; METHADONE SCREEN, URINE NEGATIVE (NEGATIVE); METHAMPHETAMINES SCREEN, URINE NEGATIVE (NEGATIVE); OPIATE SCREEN, URINE NEGATIVE (NEGATIVE); OXYCODONE SCREEN, URINE NEGATIVE (NEGATIVE); THC CANNABINOID SCREEN, URINE POSITIVE (NEGATIVE); TRICYCLIC ANTIDEPRESSANT,URINE NEGATIVE (NEGATIVE)
[2023-07-07] MEDS ORDERED: KETOROLAC 15 MG/ML VIAL IVP STA (17:51)
[2023-07-07] MEDS ORDERED: PANTOPRAZOLE 40 MG VIAL IVP STA (17:52)
[2023-07-07 18:14] LABS: CK- CREATINE KINASE 44 IU/L (30-223); ETOH - ETHANOL 340.9 mg/dL; LIPASE 12 U/L (11-82); MAGNESIUM 1.6 mg/dL (1.7-2.3)
[2023-07-07 18:17] LABS: ALKALINE PHOSPHATASE 118 IU/L (42-121); ALT ALANINE AMINOTRANSFERASE 32 IU/L (10-60); AST ASPARTATE AMINOTRANSFERASE 44 IU/L (10-42); BILIRUBIN,TOTAL 0.7 mg/dL (0.2-1.0); SALICYLATE < 1.5 mg/dL
[2023-07-07 18:18] LABS: ACETAMINOPHEN < 0.1 ug/mL; ALBUMIN/GLOBULIN RATIO 1.2 (1.0-2.2); BUN - BLOOD UREA NITROGEN 6 mg/dL (6-20); CALCIUM 8.7 mg/dL (8.5-10.3); CARBON DIOXIDE - CO2 18 mmol/L (21-32); CHLORIDE 104 mmol/L (101-111); CREATININE 0.4 mg/dL (0.6-1.3); GFR - MDRD 181 (>89); GLUCOSE 88 mg/dL (74-104); POTASSIUM 3.6 mmol/L (3.5-4.5); SODIUM 138 mmol/L (135-145); TOTAL PROTEIN 7.3 g/dL (6.4-8.9)
[2023-07-07 18:23] LABS: THYROID STIMULATING HORMONE 1.36 uIU/mL (0.34-5.60)
--- NOTE | 2023-07-07 18:26 | XRAY Report ---
PROCEDURE: Knee 4+V BL INDICATIONS: knee injuries TECHNIQUE: 4 views of the knee(s) were acquired. COMPARISON: None. FINDINGS: Bones: No fractures or dislocations. No suspicious bony lesions. Soft tissues: No knee joint effusion. No suspicious soft tissue calcifications or masses. IMPRESSION: No acute bony abnormality. Reviewed by: Emelyn Devi MD on 07/07/2023 6:25 PM PST Approved by: Emelyn Devi MD on 07/07/2023 6:25 PM [facility] Station ID: [id number]
[2023-07-07] MEDS ORDERED: MAGNESIUM OXIDE 400 MG TABLET PO STA (18:55)
[2023-07-07 19:20] VITALS: BP 115/78; O2SAT 98
== END 2023-07-07 19:15 | disposition home or self-care (01) ==
LOC: ED 16:59
DX: Z02.2 Encounter for examination for admission to residential institution (principal); F10.129 Alcohol abuse with intoxication, unspecified; Y90.8 Blood alcohol level of 240 mg/100 ml or more; S80.02XA Contusion of left knee, initial encounter; S80.01XA Contusion of right knee, initial encounter; X58.XXXA Exposure to other specified factors, initial encounter; F17.200 Nicotine dependence, unspecified, uncomplicated
CPT/HCPCS: 36415; 73564; 80053; 80306; 80307; 80320; 80329; 81003; 81025; 82550; 83690; 83735; 84443; 85025; 87635; 96374; 96375; 99283; 99284; A9270; 81001; 87086

== ENCOUNTER 2023-10-06 18:48 | Outpatient (CLI) | payer MEDICAID | END 2023-10-06 23:59 | disposition critical access hospital (66) | LOC: EMS 18:48 | DX: R10.9 Unspecified abdominal pain (principal); R11.2 Nausea with vomiting, unspecified | CPT/HCPCS: A0425; A0427; A0999 ==

== ENCOUNTER 2023-10-06 19:10 | Inpatient (IN) | payer MEDICAID ==
--- NOTE | 2023-10-06 19:29 | ED Physician Documentation ---
PD HPI ABD PAIN - Stated complaint Stated Complaint: ABD PAIN - Chief complaint Chief Complaint: Abd Pain - History obtained from History obtained from: Patient - Additional information Additional information: 37-year-old woman with history of alcohol abuse, pancreatitis and GERD. She also has a history of pancreatic pseudocyst. She tells me "I had been doing really well" with regard to her alcohol abuse, and developed epigastric pain radiating to the back about a week ago. She has been drinking in the interim with her last drink "a few days ago. She has not been vomiting but has had diarrhea. PD PAST MEDICAL HISTORY - Past Medical History Past Medical History: Yes Cardiovascular: None Respiratory: None Neuro: Headaches Endocrine/Autoimmune: None GI: GERD, Pancreatitis, Hepatitis, Cholelithiasis [facility]HB[facility] DIRECTOR: None : Kidney stones HEENT: None Psych: Depression, Anxiety, Panic attacks Musculoskeletal: None Derm: None - Past Surgical History Past Surgical History: Yes General: EGD /NE[facility]HB[facility]HOOD [facility] C[facility] DIRECTOR: Other HEENT: Tonsil/Adenoidectomy - Present Medications Home Medications: Ambulatory Orders Medication Instructions Recorded Confirmed Lipase/Protease/Amylase [Creon Dr 24,000 unit PO TIDWM 07/30/22 07/07/23 24,000 Unit Capsule] Ondansetron Odt [Zofran Odt] 4 mg TL Q6H PRN #10 tablet 11/10/22 07/07/23 oxyCODONE [Roxicodone] 5 mg PO Q8HR PRN #10 tab 05/03/23 07/07/23 Escitalopram Oxalate 20 mg PO DAILY 07/07/23 07/07/23 - Allergies Allergies/Adverse Reactions: Allergies Allergy/AdvReac Type Severity Reaction Status Date / Time No Known Drug Allergies Allergy Verified 10/06/23 19:20 - Social History Does the pt smoke?: Yes Smoking Status: Current every day smoker Does the pt drink ETOH?: Yes Does the pt have substance abuse?: Yes - Immunizations Immunizations are current?: Yes - POLST Patient has POLST: No POLST Status: Full Code PD ED PE NORMAL - Vitals Vital signs reviewed: Yes - General General: Alert and oriented X 3, Other (Appears uncomfortable) - Cardiac Cardiac: RRR, No murmur - Respiratory Respiratory: No respiratory distress, Clear bilaterally - Abdomen Abdomen: Other (Quite tender in the upper abdomen but no surgical signs.) - Neuro Neuro: Alert and oriented X 3 Results - Vitals Vitals: Vital Signs - 24 hr 10/06/23 10/06/23 10/06/23 19:15 19:21 21:05 Temperature 36.2 C L Heart Rate 96 86 86 Respiratory 20 20 18 Rate Blood Pressure 116/83 H 113/78 O2 Saturation 98 98 98 Oxygen O2 Source Room air - Labs Labs: Laboratory Tests 10/06/23 10/06/23 19:25 19:25 WBC 10.8 RBC 4.01 L Hgb 12.8 Hct 39.1 MCV 97.5 MCH 31.9 H MCHC 32.7 RDW 14.3 Plt Count 209 MPV 10.4 Neut # (Auto) 9.3 H Lymph # (Auto) 1.1 L Brown # (Auto) 0.3 Eos # (Auto) 0.0 Baso # (Auto) 0.1 Absolute Nucleated RBC 0.00 Nucleated RBC % 0.0 Sodium 137 Potassium 3.9 Chloride 104 Carbon Dioxide 18 L Anion Gap 15.0 H BUN 16 Creatinine 0.6 Estimated GFR (MDRD) 113 Glucose 129 H Calcium 8.9 Magnesium 1.5 L Total Bilirubin 0.5 AST 15 ALT 8 L Alkaline Phosphatase 57 Total Protein 7.2 Albumin 4.3 Globulin 2.9 Albumin/Globulin Ratio 1.5 Lipase 1232 H Ethyl Alcohol 84.9 - Rads (name of study) Ct A/P Relevant Findings:: Final report received, EMP independent interpretation of test PD Medical Decision Making - ED course ED course: 37-year-old woman with alcoholism and recurrent pancreatitis. Says she has not been drinking in 2 days, which is in contrast to her blood alcohol level of 85. Her CMP is notable for hypomagnesemia which was repleted IV with acidosis and a lipase of 1232. CBC relatively unremarkable. CT of the abdomen and pelvis without signs of recurrent pseudocyst which she has had in the past. Telehealth consult placed at 2216. Care to Dr. Richter pending callback from hospitalist. She did require several divided doses of pain medications here. Departure - Departure Disposition: 66 [facility] DC/Xfer Clinical Impression: Alcohol abuse Pancreatitis Qualifiers: Chronicity: acute Pancreatitis type: alcohol induced Acute pancreatitis complication: no infection or necrosis Qualified Code(s): K85.20 - Alcohol induced acute pancreatitis without necrosis or infection Condition: Stable Forms: PCP List
[2023-10-06 19:30] LABS: BASOPHILS # (AUTO) 0.1 10^3/uL (0.0-0.1); BASOPHILS % (AUTO) 0.5 %; EOSINOPHILS % (AUTO) 0.1 %; HCT - HEMATOCRIT 39.1 % (37.0-47.0); HGB - HEMOGLOBIN 12.8 g/dL (12.0-16.0); LYMPHOCYTES # (AUTO) 1.1 10^3/uL (1.5-3.5); LYMPHOCYTES % (AUTO) 10.5 %; MEAN CORPUSCULAR HEMOGLOBIN 31.9 pg (27.0-31.0); MEAN CORPUSCULAR HGB CONC 32.7 g/dL (32.0-36.0); MEAN CORPUSCULAR VOLUME 97.5 fL (81.0-99.0); MEAN PLATELET VOLUME 10.4 fL (7.9-10.8); MONOCYTES # (AUTO) 0.3 10^3/uL (0.0-1.0); MONOCYTES % (AUTO) 3.1 %; NEUTROPHILS # (AUTO) 9.3 10^3/uL (1.5-6.6); NEUTROPHILS % (AUTO) 85.5 %; PLT - PLATELET COUNT 209 10^3/uL (130-450); RED BLOOD COUNT 4.01 10^6/uL (4.20-5.40); RED CELL DISTRIBUTION WIDTH 14.3 % (12.0-15.0); WHITE BLOOD COUNT 10.8 x10^3/uL (4.8-10.8)
[2023-10-06 19:39] LABS: MAGNESIUM 1.5 mg/dL (1.7-2.3)
[2023-10-06 19:45] LABS: ALBUMIN 4.3 g/dL (3.2-5.5); ALBUMIN/GLOBULIN RATIO 1.5 (1.0-2.2); BILIRUBIN,TOTAL 0.5 mg/dL (0.2-1.0); CALCIUM 8.9 mg/dL (8.5-10.3); CREATININE 0.6 mg/dL (0.6-1.3); ETOH - ETHANOL 84.9 mg/dL; POTASSIUM 3.9 mmol/L (3.5-4.5); TOTAL PROTEIN 7.2 g/dL (6.4-8.9)
[2023-10-06] MEDS: ONDANSETRON 4 MG/2 ML VIAL IVP STA ×2 (19:45→21:12)
[2023-10-06] MEDS: HYDROmorphone 1 MG/ML CARPUJECT IVP STA ×4 (19:46→22:33)
[2023-10-06] MEDS: KETOROLAC 15 MG/ML VIAL IVP STA (20:15)
[2023-10-06] MEDS: PANTOPRAZOLE 40 MG VIAL IVP STA (20:15)
[2023-10-06] MEDS: METOCLOPRAMIDE 10 MG/2 ML VIAL IVP STA (20:16)
[2023-10-06] MEDS: MAGNESIUM SULFATE 2 GRAM 2 GM/50 ML BAG IV ONE (20:22)
[2023-10-06] MEDS: SODIUM CHLORIDE 0.9% 1,000 ML IV STA (20:22)
[2023-10-06] MEDS ORDERED: iohexoL-300 100 ML VIAL ONE (20:42)
[2023-10-06] MEDS: iohexoL-300 100 ML VIAL IVP ONE (21:13)
--- NOTE | 2023-10-06 22:12 | CT Report ---
PROCEDURE: Abdomen/Pelvis W INDICATIONS: IV only, abd pain hx pancreatic pseudocyst etc. CONTRAST: [id number] TECHNIQUE: After the administration of intravenous contrast, a CT scan of the abdomen and pelvis was performed. Images were recorded and evaluated at appropriate window settings. Reformats: coronal and sagittal. F or radiation dose reduction, the following was used: automated exposure control, adjustment of mA and /or kV according to patient size. COMPARISON: 04/26/2023. FINDINGS: Image quality: Diagnostic. Lower chest: Unremarkable. Liver: Hepatic steatosis. Gallbladder and biliary tree: No radiopaque stones or wall thickening. No biliary dilation. Spleen: No splenomegaly. Pancreas: There is homogeneous pancreatic enhancement. Coarse calcifications near the pancreatic head likely from history of pancreatitis. Moderate peripancreatic inflammatory stranding most pronounced over the pancreatic neck and head. No organized fluid collection seen. There is definite pancreatic m ass lesion identified. Surrounding vasculature appear patent without thrombosis. Multiple reactive pe riportal/peripancreatic lymph nodes. Adrenals: No adrenal nodule. Kidneys and ureters: No hydronephrosis. No renal cystic lesion which requires follow up. No solid mas s. Stomach, bowel and peritoneum: No bowel distension. No pathologic free fluid. Lymph nodes: No central or retroperitoneal adenopathy. Vessels: No infrarenal aortic aneurysm. PELVIS Reproductive organs: Unremarkable. IUD visualized within the endometrium. Bladder: No abnormal wall thickening, accounting for underdistention. Pelvic lymph nodes: No pelvic adenopathy by size criteria. Bones: No aggressive osseous abnormality. Other: No significant ventral or inguinal hernia. IMPRESSION: Findings compatible with acute pancreatitis without evidence for necrotizing pancreatitis. No evidenc e for organized fluid collection identified. Multiple surrounding peripancreatic/periportal reactive lymph nodes. Hepatic steatosis. Reviewed by: Natan Lee MD on 10/06/2023 10:10 PM PDT Approved by: Natan Lee MD on 10/06/2023 10:10 PM PDT Station ID: [id number]
[2023-10-06] MEDS ORDERED: SODIUM CHLORIDE FLUSH 0.9% 10 ML SYRINGE IVP PRN (22:23)
[2023-10-06] MEDS ORDERED: ACETAMINOPHEN 325 MG TABLET PO PRN (22:23)
--- NOTE | 2023-10-06 22:25 | ED Physician Documentation ---
ED Addendum - Addendum Addendum: Patient care assumed at shift change as patient is awaiting admission to hospitalist service for treatment of alcohol use and pancreatitis.Please see Dr. Mcgrath's note for full history and physical. 10/06/23 22:25 - D/W Tele hospitalist, Dr. Lee, who will admit for further management of pancreatitis. Departure - Departure Disposition: 66 [facility] DC/Xfer Clinical Impression: Alcohol abuse Pancreatitis Qualifiers: Chronicity: acute Pancreatitis type: alcohol induced Acute pancreatitis complication: no infection or necrosis Qualified Code(s): K85.20 - Alcohol induced acute pancreatitis without necrosis or infection Condition: Stable Discharge Date/Time: 10/06/23 23:05
--- NOTE | 2023-10-06 22:35 | HISTORY & PHYSICAL EXAMINATION ---
Chief Complaint - Chief Complaint Chief Complaint: Abdominal pain History of Present Illness - Admitted From Admitted From:: Home - History Obtained From Records Reviewed: Yes History obtained from: Patient, eMR and ER team Exam Limitations: None - History of Present Illness HPI Comment/Other: 37-year-old woman with history of alcohol abuse, pancreatitis and GERD. She also has a history of pancreatic pseudocyst. She tells me "I had been doing really well" with regard to her alcohol abuse, and developed epigastric pain radiating to the back about a week ago. She has been drinking in the interim with her last drink "a few days ago. She has not been vomiting but has had diarrhea. 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, states she relapsed with ETOH, no allergies has 2 kids 8 and 11 yrs lives with mom and dad, is in lots of pain at this time, hemodynamics are stable History - Past Medical History Cardiovascular: reports: None Respiratory: reports: None Neuro: reports: Headaches Endocrine/Autoimmune: reports: None GI: reports: GERD, Pancreatitis, Hepatitis, Cholelithiasis STAFFING AND SCHEDULING COORDINATOR: reports: None : reports: Kidney stones HEENT: reports: None Psych: reports: Depression, Anxiety, Panic attacks Musculoskeletal: reports: None Derm: reports: None MRSA Hx?: No - Past Surgical History General: reports: EGD /STAFFING AND SCHEDULING COORDINATOR: reports: Other HEENT: reports: Tonsil/Adenoidectomy - Family & Social History Family History: Mother: Alive and Well Family History Comment/Other: Her mother has history of thyroid disease. Living Situation: With family Social History Notes: She previously drank alcohol on a consistent basis but now denies any use. She smokes a couple cigarettes a day and has been doing so for the past 16 years. She lives with 2 daughters, aged 7 & 10, and with her mother. 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 - Substance History Use: Uses substance without health or social issues: Tobacco - POLST Patient has POLST: No POLST Status: Full Code Meds/Allgy - Home Medications Home Medications: Ambulatory Orders Medication Instructions Recorded Confirmed Lipase/Protease/Amylase [Frank Ledbetter 24,000 unit PO TIDWM 07/30/22 07/07/23 24,000 Unit Capsule] Ondansetron Odt [Zofran Odt] 4 mg TL Q6H PRN #10 tablet 11/10/22 07/07/23 oxyCODONE [Roxicodone] 5 mg PO Q8HR PRN #10 tab 05/03/23 07/07/23 Escitalopram Oxalate 20 mg PO DAILY 07/07/23 07/07/23 - Allergies Allergies/Adverse Reactions: Allergies Allergy/AdvReac Type Severity Reaction Status Date / Time No Known Drug Allergies Allergy Verified 10/06/23 19:20 Review of Systems - Gastrointestinal Gastrointestinal: reports: Abdominal pain, Diarrhea, Nausea Prior Level of Functionality: Indpendent with ADL Exam - Vital Signs Vital Signs: Vital Signs x48h Temp Pulse Resp BP Pulse Ox 10/06/23 21:05 86 18 113/78 98 10/06/23 19:21 86 20 98 10/06/23 19:15 36.2 C L 96 20 116/83 H 98 - Physical Exam General Appearance: positive: Alert, Mild distress Eyes Bilateral: positive: Normal inspection, PERRL Neck: positive: No JVD, Trachea midline Respiratory: positive: No respiratory distress Cardiovascular: positive: Regular rate & rhythm, JVD present Abdomen: positive: Tenderness Back: positive: Nml inspection Neurologic/Psychiatric: positive: Oriented x3, CN's nml (2-12) Sepsis Event Note (H) - Evaluation Current Stage of Sepsis: Ruled out Conclusion/Plan - Problem List (1) Pancreatitis Conclusion/Plan: Acute alcohol induced pancreatitis Admit for observation NPO except ice chips and meds IV pain meds Bowel rest Repeat labs in am CT scan shows no concerning findings. Po intake to be resumed once nausea resolved ETOH abstinence counseling Fatty liver- LIfe style modification and risk factor reduction Daily exercise and weight loss Hypomagnesemia Total of 4 gm of Mg replaced, repeat in am DVT prophylaxis Full code Qualifiers: Chronicity: acute Pancreatitis type: alcohol induced Acute pancreatitis complication: no infection or necrosis Qualified Code(s): K85.20 - Alcohol induced acute pancreatitis without necrosis or infection - Lab Results Fish Bones: 10/06/23 19:25 10/06/23 19:25 - Diagnostic Imaging Results Diagnostic Imaging Results: positive: Final report reviewed - EKG Results EKG Interpreted Independently: Yes
[2023-10-06] MEDS ORDERED: THIAMINE 100 MG/1 ML 2 ML MDV ONE (22:52)
[2023-10-06] MEDS: THIAMINE INJ 100 MG in SODIUM CHLORIDE 0.9% 50 ML IV STA (22:55)
[2023-10-07 01:14] LABS: BILIRUBIN,URINE NEGATIVE (NEGATIVE); GLUCOSE, URINE (UA) NEGATIVE (NEGATIVE); KETONES,URINE (UA) 15 mg/dL (NEGATIVE); LEUKOCYTE ESTERASE, URINE NEGATIVE (NEGATIVE); NITRITE,URINE NEGATIVE (NEGATIVE); OCCULT BLOOD,URINE NEGATIVE (NEGATIVE); PROTEIN,URINE NEGATIVE (NEGATIVE); UROBILINOGEN,URINE 0.2 (NORMAL) E.U./dL (NORMAL)
[2023-10-07 01:16] LABS: CLARITY,URINE CLEAR (CLEAR)
[2023-10-07 01:17] LABS: HCG UR QUAL NEGATIVE
[2023-10-07] MEDS: HYDROmorphone 0.5 MG/0.5 ML SYRINGE IVP PRN (01:17)
[2023-10-07] MEDS: SODIUM CHLORIDE FLUSH 0.9% 10 ML SYRINGE IVP SCH (01:22)
[2023-10-07] MEDS: SODIUM CHLORIDE 0.9% 1,000 ML IV SCH (01:22)
[2023-10-07] MEDS: MAGNESIUM SULFATE 2 GM in SODIUM CHLORIDE 0.9% 50 ML IV ONE (01:32)
[2023-10-07] MEDS: PROMETHAZINE 25 MG/1 ML VIAL IM PRN (05:49)
[2023-10-07 06:10] LABS: ALBUMIN 4.1 g/dL (3.2-5.5); ALBUMIN/GLOBULIN RATIO 1.5 (1.0-2.2); CALCIUM 8.7 mg/dL (8.5-10.3); CREATININE 0.6 mg/dL (0.6-1.3); POTASSIUM 3.7 mmol/L (3.5-4.5); TOTAL PROTEIN 6.8 g/dL (6.4-8.9)
[2023-10-07] MEDS ORDERED: PROTEASE PO SCH (08:00)
[2023-10-07] MEDS ORDERED: LIPASE PO SCH (08:00)
[2023-10-07] MEDS ORDERED: AMYLASE PO SCH (08:00)
[2023-10-07] MEDS ORDERED: [UNRECOGNIZED DRUG - OTHER] PO SCH (08:00)
[2023-10-07] MEDS: ESCITALOPRAM 10 MG TABLET PO SCH (08:15)
[2023-10-07] MEDS: oxyCODONE 5 MG TABLET PO PRN (10:04)
[2023-10-07] MEDS ORDERED: HYDROmorphone 0.5 MG/0.5 ML SYRINGE IVP PRN (12:18)
[2023-10-07] MEDS: HYDROmorphone 1 MG/ML CARPUJECT IVP PRN (12:31)
--- NOTE | 2023-10-07 15:39 | PROVIDER PROGRESS NOTE ---
Subjective - Prog Note Date Prog Note Date: 10/07/23 Prog Note Time: 15:37 - Subjective Pt reports feeling: Worse Subjective: her pain is severe. She feels like a sharp hot sort is being stabbed into her abdomen radiating through her left flank. Currently she is on Dilaudid half a milligram every 2 hours as needed and is not helping. No emesis but has severe nausea. She had been sober for several months. Has had an interval pseudocyst drainage. Was eating well doing well physically. However the stress of fighting with her mom all the time as they discussed custody of her children with her mom led to her having a decompensation emotionally. So she returned to drinking. Current Medications - Current Medications Current Medications: Active Medications Acetaminophen (Acetaminophen 325 Mg Tablet) 650 mg PO Q4HR PRN PRN Reason: Pain 1 to 4, or Fever Escitalopram Oxalate (Escitalopram 10 Mg Tablet) 20 mg PO DAILY [facility] Last Admin: 10/07/23 08:15 Dose: 20 mg Hydromorphone HCl (Hydromorphone 1 Mg/Ml Carpuject) 1 mg IVP Q2H PRN PRN Reason: Pain 8 to 10 Last Admin: 10/07/23 14:27 Dose: 1 mg Sodium Chloride (Normal Saline 0.9%) 1,000 mls @ 100 mls/hr IV .Q10H [facility] Last Admin: 10/07/23 12:35 Dose: 100 mls/hr Oxycodone HCl (Oxycodone 5 Mg Tablet) 5 mg PO Q8HR PRN PRN Reason: Moderate Pain (Level 4-6) Last Admin: 10/07/23 10:04 Dose: 5 mg Promethazine HCl (Promethazine 25 Mg/1 Ml Vial) 25 mg IM Q6HR PRN PRN Reason: Nausea / Vomiting Last Admin: 10/07/23 05:49 Dose: 25 mg Sodium Chloride (Sodium Chloride Flush 0.9% 10 Ml Syringe) 10 ml IVP PRN PRN PRN Reason: NEEDED PER PROVIDER ORDERS Sodium Chloride (Sodium Chloride Flush 0.9% 10 Ml Syringe) 10 ml IVP 0100,0900,1700 [facility] Last Admin: 10/07/23 10:06 Dose: 10 ml Escitalopram Oxalate 20 mg PO DAILY 07/07/23 Famotidine [Pepcid] 20 mg PO DAILY 10/07/23 Lipase/Protease/Amylase [Pancrelipase Dr 5,000/17,000/24,000 [facility]] 1 cap PO TIDWM 10/07/23 Objective - Vital Signs/Intake & Output Reviewed Vital Signs: Yes Vital Signs: Vital Signs x48h Temp Pulse Resp BP Pulse Ox 10/07/23 11:58 36.6 C 84 18 133/91 H 97 10/07/23 08:18 37.1 C 88 18 127/89 H Intake & Output: Intake & Output 10/04/23 10/05/23 10/06/23 10/07/23 23:59 23:59 23:59 23:59 Intake Total 1101 1054.000 Output Total 500 Balance 1101 554.000 - Objective General Appearance: positive: Alert, Other ( Tearful middle-aged white female looks stated age. Well-nourished well-developed.) Eyes Bilateral: positive: PERRL, EOMI, No scleral icterus ENT: positive: No signs of dehydration Neck: positive: No JVD. negative: Stiff neck Respiratory: positive: No respiratory distress. negative: Wheezes, Rales, Rhonchi Cardiovascular: positive: Regular rate & rhythm Abdomen: positive: No organomegaly, Nml bowel sounds, No distention, Tenderness (epigastrium and LUQ). negative: Guarding, Rebound Skin: positive: Warm, Dry. negative: Skin rash Extremities: positive: Full ROM, No pedal edema Neurologic/Psychiatric: positive: Oriented x3, CN's nml (2-12), Motor nml - Lab Results Fish Bones: 10/06/23 19:25 10/07/23 05:31 Other Labs: Lab Results x24hrs 10/07/23 10/07/23 10/07/23 Range/Units 05:31 05:31 01:10 WBC (4.8-10.8) x10^3/uL RBC (4.20-5.40) 10^6/uL Hgb (12.0-16.0) g/dL Hct (37.0-47.0) % MCV (81.0-99.0) fL MCH (27.0-31.0) pg MCHC (32.0-36.0) g/dL RDW (12.0-15.0) % Plt Count (130-450) 10^3/uL MPV (7.9-10.8) fL Neut # (Auto) (1.5-6.6) 10^3/uL Lymph # (Auto) (1.5-3.5) 10^3/uL [place] # (Auto) (0.0-1.0) 10^3/uL Eos # (Auto) (0.0-0.7) 10^3/uL Baso # (Auto) (0.0-0.1) 10^3/uL Absolute Nucleated RBC x10^3/uL Nucleated RBC % /100WBC Sodium 133 L (135-145) mmol/L Potassium 3.7 (3.5-4.5) mmol/L Chloride 103 (101-111) mmol/L Carbon Dioxide 24 (21-32) mmol/L Anion Gap 6.0 (6-13) BUN 15 (6-20) mg/dL Creatinine 0.6 (0.6-1.3) mg/dL Estimated GFR (MDRD) 113 (>89) Glucose 103 (74-104) mg/dL Calcium 8.7 (8.5-10.3) mg/dL Magnesium 2.6 H (1.7-2.3) mg/dL Total Bilirubin 1.0 (0.2-1.0) mg/dL AST 13 (10-42) IU/L ALT 7 L (10-60) IU/L Alkaline Phosphatase 56 (42-121) IU/L Total Protein 6.8 (6.4-8.9) g/dL Albumin 4.1 (3.2-5.5) g/dL Globulin 2.7 (2.1-4.2) g/dL Albumin/Globulin Ratio 1.5 (1.0-2.2) Lipase 434 H (11-82) U/L Urine Color YELLOW Urine Clarity CLEAR (CLEAR) Urine pH 5.0 (5.0-7.5) PH Ur Specific [place] 1.020 (1.002-1.030) Urine Protein NEGATIVE (NEGATIVE) mg/dL Urine Glucose (UA) NEGATIVE (NEGATIVE) mg/dL Urine Ketones 15 H (NEGATIVE) mg/dL Urine Occult Blood NEGATIVE (NEGATIVE) Urine Nitrite NEGATIVE (NEGATIVE) Urine Bilirubin NEGATIVE (NEGATIVE) Urine Urobilinogen 0.2 (NORMAL) (NORMAL) E.U./dL Ur Leukocyte Esterase NEGATIVE (NEGATIVE) Ur Microscopic Review NOT INDICATED Urine Culture Comments NOT INDICATED Urine HCG, Qual NEGATIVE Ethyl Alcohol mg/dL 10/06/23 10/06/23 Range/Units 19:25 19:25 WBC 10.8 (4.8-10.8) x10^3/uL RBC 4.01 L (4.20-5.40) 10^6/uL Hgb 12.8 (12.0-16.0) g/dL Hct 39.1 (37.0-47.0) % MCV 97.5 (81.0-99.0) fL MCH 31.9 H (27.0-31.0) pg MCHC 32.7 (32.0-36.0) g/dL RDW 14.3 (12.0-15.0) % Plt Count 209 (130-450) 10^3/uL MPV 10.4 (7.9-10.8) fL Neut # (Auto) 9.3 H (1.5-6.6) 10^3/uL Lymph # (Auto) 1.1 L (1.5-3.5) 10^3/uL [place] # (Auto) 0.3 (0.0-1.0) 10^3/uL Eos # (Auto) 0.0 (0.0-0.7) 10^3/uL Baso # (Auto) 0.1 (0.0-0.1) 10^3/uL Absolute Nucleated RBC 0.00 x10^3/uL Nucleated RBC % 0.0 /100WBC Sodium 137 (135-145) mmol/L Potassium 3.9 (3.5-4.5) mmol/L Chloride 104 (101-111) mmol/L Carbon Dioxide 18 L (21-32) mmol/L Anion Gap 15.0 H (6-13) BUN 16 (6-20) mg/dL Creatinine 0.6 (0.6-1.3) mg/dL Estimated GFR (MDRD) 113 (>89) Glucose 129 H (74-104) mg/dL Calcium 8.9 (8.5-10.3) mg/dL Magnesium 1.5 L (1.7-2.3) mg/dL Total Bilirubin 0.5 (0.2-1.0) mg/dL AST 15 (10-42) IU/L ALT 8 L (10-60) IU/L Alkaline Phosphatase 57 (42-121) IU/L Total Protein 7.2 (6.4-8.9) g/dL Albumin 4.3 (3.2-5.5) g/dL Globulin 2.9 (2.1-4.2) g/dL Albumin/Globulin Ratio 1.5 (1.0-2.2) Lipase 1232 H (11-82) U/L Urine Color Urine Clarity (CLEAR) Urine pH (5.0-7.5) PH Ur Specific [place] (1.002-1.030) Urine Protein (NEGATIVE) mg/dL Urine Glucose (UA) (NEGATIVE) mg/dL Urine Ketones (NEGATIVE) mg/dL Urine Occult Blood (NEGATIVE) Urine Nitrite (NEGATIVE) Urine Bilirubin (NEGATIVE) Urine Urobilinogen (NORMAL) E.U./dL Ur Leukocyte Esterase (NEGATIVE) Ur Microscopic Review Urine Culture Comments Urine HCG, Qual Ethyl Alcohol 84.9 mg/dL Sepsis Event Note (H) - Evaluation Current Stage of Sepsis: Ruled out Assessment/Plan - Problem List (1) Pancreatitis Impression: patient is still in severe pain. However lipase is gone from 12 100-400. No fever. White cell count normal. Plan: Continue supportive care with IV fluids, antiemetics, IV pain medicines. pharmacy informs me there is to IV fluid orders ongoing. 1 from the ER and 1 for me. I have asked pharmacy to stop the ER order. Continue n.p.o. except for ice chips When she does go back to eating, I will resume her home Creon On assessing her Kemper's criteria, she is not older than 55, white cell count is not greater than 16, glucose not greater than 200. AST is not greater than 250. LDH was not checked. Today is 24 hours and tomorrow will be 48 hours. I will review her calcium, hematocrit, blood gas, BUN and how much IV fluid she has had for hydration. Qualifiers: Chronicity: acute Pancreatitis type: alcohol induced Acute pancreatitis complication: no infection or necrosis Qualified Code(s): K85.20 - Alcohol i nduced acute pancreatitis without necrosis or infection (2) Abdominal pain Impression: due to pancreatitis and not responding to half a milligram every 2 hours of Dilaudid. Will increase to 1 mg every 2 hours as needed. If she spikes a fever or develops an elevated white cell count, will do CT of the abdomen. Qualifiers: Abdominal location: left upper quadrant Qualified Code(s): R10.12 - Left u pper quadrant pain (3) Alcohol abuse Impression: No previous history of withdrawal. alcohol level 84.9 yesterday. Plan: Unable to take p.o. at this time. She has received 1 banana bag. Will start thiamine 100 mg a day and a vitamin once a day when she is able to take p.o. Hopefully that will be tomorrow. At this time, no need for benzodiaz epines for alcohol withdrawal (4) Hypomagnesemia Impression: Yesterday she was 1.5. Received 2 g of mag sulfate and now 2.4. Plan: Check mag level on a daily basis and supplement as needed
--- NOTE | 2023-10-07 16:01 | PHARMACY PROGRESS NOTE ---
- Best Possible Medication History Admit Date and Time: 10/06/230 Processed by: Pharmacy Medications reviewed in ED?: No Medication History completed: Yes Patient Interview: Pt unable to participate Secondary Source(s): Insurance records (X4 ATTEMPTS TO INTERVIEW. PATIENT ASLEEP. MED REC COMPLETED BASED OFF OF INSURANCE FILLS.) As the person ultimately responsible for medication therapy, providers are able to order a medication from an existing home medication list in [facility] via the "Reconcile Routine" prior to Confirmation of that medication by business support associate. Such practice is discouraged except when the physician, in their clinical judgment, deems that a medical need exists for a medication without regard to previous use.
[2023-10-07] MEDS ORDERED: ONDANSETRON ODT 4 MG TABLET TL PRN (17:18)
[2023-10-07] MEDS: D5NS W/20 MEQ KCL 1,000 ML IV STA (17:27)
[2023-10-07] MEDS: KETOROLAC 30 MG/ML VIAL IVP PRN (21:26)
[2023-10-08 05:41] LABS: BASOPHILS % (AUTO) 0.3 %; EOSINOPHILS # (AUTO) 0.1 10^3/uL (0.0-0.7); EOSINOPHILS % (AUTO) 1.4 %; HCT - HEMATOCRIT 35.1 % (37.0-47.0); HGB - HEMOGLOBIN 11.2 g/dL (12.0-16.0); LYMPHOCYTES # (AUTO) 1.3 10^3/uL (1.5-3.5); LYMPHOCYTES % (AUTO) 21.9 %; MEAN CORPUSCULAR HEMOGLOBIN 32.5 pg (27.0-31.0); MEAN CORPUSCULAR HGB CONC 31.9 g/dL (32.0-36.0); MEAN CORPUSCULAR VOLUME 101.7 fL (81.0-99.0); MEAN PLATELET VOLUME 10.8 fL (7.9-10.8); MONOCYTES # (AUTO) 0.5 10^3/uL (0.0-1.0); MONOCYTES % (AUTO) 7.8 %; NEUTROPHILS # (AUTO) 3.9 10^3/uL (1.5-6.6); NEUTROPHILS % (AUTO) 68.4 %; PLT - PLATELET COUNT 137 10^3/uL (130-450); RED BLOOD COUNT 3.45 10^6/uL (4.20-5.40); RED CELL DISTRIBUTION WIDTH 14.7 % (12.0-15.0); WHITE BLOOD COUNT 5.8 x10^3/uL (4.8-10.8)
[2023-10-08 05:51] LABS: ALBUMIN 3.3 g/dL (3.2-5.5); ALBUMIN/GLOBULIN RATIO 1.4 (1.0-2.2); CALCIUM 8.4 mg/dL (8.5-10.3); CREATININE 0.6 mg/dL (0.6-1.3); POTASSIUM 3.7 mmol/L (3.5-4.5); TOTAL PROTEIN 5.6 g/dL (6.4-8.9)
[2023-10-08 07:08] LABS: ABG PCO2 35 mmHg (34-45)
[2023-10-08 07:09] LABS: ABG BASE EXCESS -3.2 mmol/L (-2.0-3.0); ABG OXYGEN SATURATION 96 % (94-98); ABG PO2 85 mmHg (80-100); ABG TCO2 22.1 MMOL/L (21.0-29.0); ALLEN TEST POSITIVE
[2023-10-08] MEDS: PRENATAL VITAMIN TABLET PO SCH (12:04)
[2023-10-08] MEDS: THIAMINE 100 MG TABLET PO SCH (12:04)
[2023-10-08] MEDS: LIPASE/PROTEASE/AMYLASE CAPSULE PO SCH (12:04)
--- NOTE | 2023-10-08 17:10 | PROVIDER PROGRESS NOTE ---
Subjective - Prog Note Date Prog Note Date: 10/08/23 Prog Note Time: 17:08 - Subjective Pt reports feeling: Improved Subjective: Morning she says that she was actually starting to feel hungry so I started her on a clear liquid diet. Labs are almost normal. Still has abdominal pain in the left upper quadrant and epigastrium that radiates straight through to the back. But no fever, chills. She tolerated the clear liquid diet for 3 meals today. She is still hungry. Current Medications - Current Medications Current Medications: Active Medications Acetaminophen (Acetaminophen 325 Mg Tablet) 650 mg PO Q4HR PRN PRN Reason: Pain 1 to 4, or Fever Lipase/Protease/Amylase (Lipase/Protease/Amylase Capsule) 1 cap PO TIDWM [facility] Last Admin: 10/08/23 17:05 Dose: 1 cap Escitalopram Oxalate (Escitalopram 10 Mg Tablet) 20 mg PO DAILY [facility] Last Admin: 10/08/23 07:59 Dose: 20 mg Famotidine (Famotidine 20 Mg Tablet) 20 mg PO DAILY [facility] Hydromorphone HCl (Hydromorphone 1 Mg/Ml Carpuject) 1 mg IVP Q2H PRN PRN Reason: Pain 8 to 10 Last Admin: 10/08/23 17:05 Dose: 1 mg Sodium Chloride (Normal Saline 0.9%) 1,000 mls @ 100 mls/hr IV .Q10H [facility] Last Admin: 10/08/23 07:59 Dose: 100 mls/hr Ketorolac Tromethamine (Ketorolac 30 Mg/Ml Vial) 30 mg IVP Q6HR PRN PRN Reason: Severe Pain (Level 7-10) Last Admin: 10/08/23 12:29 Dose: 30 mg Ondansetron HCl (Ondansetron Odt 4 Mg Tablet) 4 mg TL Q4HR PRN PRN Reason: Nausea / Vomiting Oxycodone HCl (Oxycodone 5 Mg Tablet) 5 mg PO Q8HR PRN PRN Reason: Moderate Pain (Level 4-6) Last Admin: 10/08/23 15:53 Dose: 5 mg Multivit/Folic Acid/Iron ( Vitamin Tablet) 1 tab PO DAILYWM [facility] Last Admin: 10/08/23 12:04 Dose: 1 tab Sodium Chloride (Sodium Chloride Flush 0.9% 10 Ml Syringe) 10 ml IVP PRN PRN PRN Reason: NEEDED PER PROVIDER ORDERS Sodium Chloride (Sodium Chloride Flush 0.9% 10 Ml Syringe) 10 ml IVP 0100,0900,1700 [facility] Last Admin: 10/08/23 07:59 Dose: 10 ml Thiamine HCl (Thiamine 100 Mg Tablet) 100 mg PO DAILY [facility] Last Admin: 10/08/23 12:04 Dose: 100 mg Escitalopram Oxalate 20 mg PO DAILY 07/07/23 Famotidine [Pepcid] 20 mg PO DAILY 10/07/23 Lipase/Protease/Amylase [Pancrelipase Dr 5,000/17,000/24,000 Correction] 1 cap PO TIDWM 10/07/23 Objective - Vital Signs/Intake & Output Reviewed Vital Signs: Yes Vital Signs: Vital Signs x48h Temp Pulse Resp BP Pulse Ox 10/08/23 13:00 36.8 C 93 18 105/73 94 Intake & Output: Intake & Output 10/05/23 10/06/23 10/07/23 10/08/23 23:59 23:59 23:59 23:59 Intake Total 1101 7503.203 0742 Output Total 725 840 Balance 1101 2741.719 6070 - Objective General Appearance: positive: No acute distress ( Morning still a little bit tearful but by this afternoon in good spirits and is thinking the nurses for their excellent care), Alert Eyes Bilateral: positive: PERRL ENT: positive: Pharynx nml Neck: positive: Thyroid nml Respiratory: positive: No respiratory distress. negative: Wheezes, Rales, Rhonchi Cardiovascular: positive: Regular rate & rhythm Abdomen: positive: No organomegaly, Nml bowel sounds, No distention, Tenderness ( she is anywhere between a 3 and is high as an 8. Currently at a 3) Back: negative: CVA tenderness (R) Skin: positive: No rash, Warm, Dry Extremities: positive: Full ROM, No pedal edema ( her IV site and right forearm infiltrated and slightly edematous skin there but no redness or thrombophlebitis) Neurologic/Psychiatric: positive: Oriented x3, CN's nml (2-12), Motor nml - Lab Results Fish Bones: 10/08/23 05:29 10/08/23 05:29 Other Labs: Lab Results x24hrs 10/08/23 10/08/23 10/08/23 Range/Units 07:00 05:29 05:29 WBC 5.8 (4.8-10.8) x10^3/uL RBC 3.45 L (4.20-5.40) 10^6/uL Hgb 11.2 L (12.0-16.0) g/dL Hct 35.1 L (37.0-47.0) % MCV 101.7 H (81.0-99.0) fL MCH 32.5 H (27.0-31.0) pg MCHC 31.9 L (32.0-36.0) g/dL RDW 14.7 (12.0-15.0) % Plt Count 137 (130-450) 10^3/uL MPV 10.8 (7.9-10.8) fL Neut # (Auto) 3.9 (1.5-6.6) 10^3/uL Lymph # (Auto) 1.3 L (1.5-3.5) 10^3/uL [place] # (Auto) 0.5 (0.0-1.0) 10^3/uL Eos # (Auto) 0.1 (0.0-0.7) 10^3/uL Baso # (Auto) 0.0 (0.0-0.1) 10^3/uL Absolute Nucleated RBC 0.00 x10^3/uL Nucleated RBC % 0.0 /100WBC Bld Gas Analysis Time 0706 Sample Site RIGHT RADIAL ABG pH 7.40 (7.35-7.45) ABG pCO2 35 (34-45) mmHg ABG pO2 85 (80-100) mmHg ABG HCO3 21.0 L (22.0-26.0) mmol/L ABG Total CO2 22.1 (21.0-29.0) MMOL/L ABG O2 Saturation 96 (94-98) % ABG Base Excess -3.2 L (-2.0-3.0) mmol/L Ernie Test POSITIVE Room Air YES Sodium 135 (135-145) mmol/L Potassium 3.7 (3.5-4.5) mmol/L Chloride 106 (101-111) mmol/L Carbon Dioxide 25 (21-32) mmol/L Anion Gap 4.0 L (6-13) BUN 10 (6-20) mg/dL Creatinine 0.6 (0.6-1.3) mg/dL Estimated GFR (MDRD) 113 (>89) Glucose 105 H (74-104) mg/dL Calcium 8.4 L (8.5-10.3) mg/dL Total Bilirubin 1.0 (0.2-1.0) mg/dL AST 15 (10-42) IU/L ALT 6 L (10-60) IU/L Alkaline Phosphatase 53 (42-121) IU/L Total Protein 5.6 L (6.4-8.9) g/dL Albumin 3.3 (3.2-5.5) g/dL Globulin 2.3 (2.1-4.2) g/dL Albumin/Globulin Ratio 1.4 (1.0-2.2) Lipase 309 H (11-82) U/L ABX Reporting Has patient been on IV antibiotics over the past 48 hours?: No Sepsis Event Note (H) - Evaluation Current Stage of Sepsis: Ruled out Assessment/Plan - Problem List (1) Pancreatitis Impression: Lipase started at 1232, 434 yesterday, and 309 today. White cell count came down to 5.8 from 10.8 yesterday. No fever. She is now at 48 hours, and while calcium is low at 8.4 it is not less than 8. Hematocrit has not fallen greater than 10%. Her pCO2 on blood gas is 85 on room air. BUN has dropped by 5 not risen by 5. Base deficit is -3.2. And her fluid resuscitation has been about 3700 cc. So her score is 0 points. Plan: Continue supportive care with IV fluids, antiemetics, IV pain medicines. I advanced her to clear liquids this morning. Since she has done well with 3 meals I will advance her to a low-fat diet tomorrow morning. I will resume her home Creon Hopefully she can be discharged tomorrow afternoon or the morning of the if she does well with diet. If she is keeping food down with adequate fluid intake by tomorrow morning I will start maintenance IV fluids Qualifiers: Chronicity: acute Pancreatitis type: alcohol induced Acute pancreatitis complication: no infection or necrosis Qualified Code(s): K85.20 - Alcohol induced acute pancreatitis without necrosis or infection (2) Abdominal pain Impression: due to pancreatitis and pain was not responding to half a milligram every 2 hours of Dilaudid. I increased to 1 mg every 2 hours as needed. she still feels like pain will suddenly surge to a higher level of 8 out of a 10 but then go back down to a 3 and a waxing and waning pattern. I will not be changing her Dilaudid today. If she spikes a fever or develops an elevated white cell count, will do CT of the abdomen. Qualifiers: Abdominal location: left upper quadrant Qualified Code(s): R10.12 - Left upper quadrant pain (3) Alcohol abuse Impression: No previous history of withdrawal. No withdrawal with this admit. alcohol level 84.9 on admit. Plan: Able to take p.o. now. So she has received 1 banana bag IV. Now on oral thiamine and vitamin. No need for benzodiazepines since she has not had any withdrawal. (4) Hypomagnesemia Impression: Received supplementation in the emergency room. Received 2 g and magnesium went from 1.5->>2.4. Plan: Check mag level on a daily basis and supplement as needed Qualifiers: Qualified Code(s): K85.20 - Alcohol induced acute pancreatitis without necrosis or infection
[2023-10-09 05:46] LABS: BASOPHILS % (AUTO) 0.7 %; EOSINOPHILS # (AUTO) 0.2 10^3/uL (0.0-0.7); EOSINOPHILS % (AUTO) 4.4 %; HCT - HEMATOCRIT 32.4 % (37.0-47.0); HGB - HEMOGLOBIN 10.2 g/dL (12.0-16.0); LYMPHOCYTES # (AUTO) 1.4 10^3/uL (1.5-3.5); LYMPHOCYTES % (AUTO) 30.9 %; MEAN CORPUSCULAR HEMOGLOBIN 32.5 pg (27.0-31.0); MEAN CORPUSCULAR HGB CONC 31.5 g/dL (32.0-36.0); MEAN CORPUSCULAR VOLUME 103.2 fL (81.0-99.0); MEAN PLATELET VOLUME 11.3 fL (7.9-10.8); MONOCYTES # (AUTO) 0.5 10^3/uL (0.0-1.0); MONOCYTES % (AUTO) 10.5 %; NEUTROPHILS # (AUTO) 2.5 10^3/uL (1.5-6.6); NEUTROPHILS % (AUTO) 53.3 %; PLT - PLATELET COUNT 143 10^3/uL (130-450); RED BLOOD COUNT 3.14 10^6/uL (4.20-5.40); RED CELL DISTRIBUTION WIDTH 14.7 % (12.0-15.0); WHITE BLOOD COUNT 4.6 x10^3/uL (4.8-10.8)
[2023-10-09 06:00] LABS: ALBUMIN 2.9 g/dL (3.2-5.5); ALBUMIN/GLOBULIN RATIO 1.5 (1.0-2.2); BILIRUBIN,TOTAL 0.4 mg/dL (0.2-1.0); CALCIUM 7.9 mg/dL (8.5-10.3); CREATININE 0.5 mg/dL (0.6-1.3); MAGNESIUM 1.7 mg/dL (1.7-2.3); POTASSIUM 3.9 mmol/L (3.5-4.5); TOTAL PROTEIN 4.9 g/dL (6.4-8.9)
[2023-10-09] MEDS: FAMOTIDINE 20 MG TABLET PO SCH (08:10)
[2023-10-09] MEDS: CALCIUM GLUCONATE IN NS 0.9% 2,000 MG/100 ML BAG IV ONE (08:16)
[2023-10-09] MEDS: HYDROmorphone 2 MG TABLET PO PRN (11:05)
--- NOTE | 2023-10-09 17:20 | PROVIDER PROGRESS NOTE ---
Subjective - Prog Note Date Prog Note Date: 10/09/23 Prog Note Time: 17:12 - Subjective Pt reports feeling: No change Subjective: Tears running silently down her face is a checked on her again this afternoon. I saw her this morning and she was very hungry and wanted to eat. I started her on a low-fat diet. She has eaten breakfast and lunch. She is now eating dinner. It is satisfying her hunger but she feels that she still has an 8 out of a 10 or a 10 out of a 10 abdominal pain. I have already switched her to p.o. Dilaudid. She is able to get up and ambulate. No nausea or vomiting. Current Medications - Current Medications Current Medications: Active Medications Acetaminophen (Acetaminophen 325 Mg Tablet) 650 mg PO Q4HR PRN PRN Reason: Pain 1 to 4, or Fever Lipase/Protease/Amylase (Lipase/Protease/Amylase Capsule) 1 cap PO TIDWM [facility] Last Admin: 10/09/23 17:07 Dose: 1 cap Escitalopram Oxalate (Escitalopram 10 Mg Tablet) 20 mg PO DAILY [facility] Last Admin: 10/09/23 08:11 Dose: 20 mg Famotidine (Famotidine 20 Mg Tablet) 20 mg PO DAILY [facility] Last Admin: 10/09/23 08:10 Dose: 20 mg Hydromorphone HCl (Hydromorphone 2 Mg Tablet) 2 mg PO Q4H PRN PRN Reason: Severe Pain (Level 7-10) Last Admin: 10/09/23 16:05 Dose: 2 mg Ondansetron HCl (Ondansetron Odt 4 Mg Tablet) 4 mg TL Q4HR PRN PRN Reason: Nausea / Vomiting Multivit/Folic Acid/Iron ( Vitamin Tablet) 1 tab PO DAILYWM [facility] Last Admin: 10/09/23 08:10 Dose: 1 tab Sodium Chloride (Sodium Chloride Flush 0.9% 10 Ml Syringe) 10 ml IVP PRN PRN PRN Reason: NEEDED PER PROVIDER ORDERS Sodium Chloride (Sodium Chloride Flush 0.9% 10 Ml Syringe) 10 ml IVP 0100,0900,1700 [facility] Last Admin: 10/09/23 16:02 Dose: 10 ml Thiamine HCl (Thiamine 100 Mg Tablet) 100 mg PO DAILY [facility] Last Admin: 10/09/23 08:11 Dose: 100 mg Escitalopram Oxalate 20 mg PO DAILY 01/22/24 Famotidine [Pepcid] 20 mg PO DAILY 10/07/23 Lipase/Protease/Amylase [Pancrelipase Dr 5,000/17,000/24,000 [facility]] 1 cap PO TIDWM 10/07/23 Objective - Vital Signs/Intake & Output Reviewed Vital Signs: Yes Vital Signs: Vital Signs x48h Temp Pulse Resp BP Pulse Ox 10/09/23 16:02 36.7 C 74 20 126/82 H 93 10/09/23 13:17 36.6 C 86 20 116/80 97 Intake & Output: Intake & Output 10/06/23 10/07/23 10/08/23 10/09/23 23:59 23:59 23:59 23:59 Intake Total 1101 5038.684 5699 1693 Output Total 725 1040 200 Balance 1101 9021.796 9860 1493 - Objective General Appearance: positive: Alert, Moderate distress Eyes Bilateral: positive: PERRL, EOMI ENT: positive: No signs of dehydration Neck: positive: No JVD. negative: Stiff neck Respiratory: positive: No respiratory distress. negative: Wheezes, Rales, Rhonchi Cardiovascular: positive: Regular rate & rhythm Abdomen: positive: No organomegaly, Nml bowel sounds, No distention, Tenderness ( Left upper quadrant, left mid abdomen, left lower quadrant and over her bladder). negative: Guarding, Rebound Skin: positive: Warm, Dry Extremities: positive: Full ROM, No pedal edema Neurologic/Psychiatric: positive: Oriented x3, CN's nml (2-12), Motor nml, Mood/affect nml ( cheerful, regretful saying "I will never do this again") - Lab Results Fish Bones: 10/09/23 05:41 10/09/23 05:41 Other Labs: Lab Results x24hrs 10/09/23 10/09/23 Range/Units 05:41 05:41 WBC 4.6 L (4.8-10.8) x10^3/uL RBC 3.14 L (4.20-5.40) 10^6/uL Hgb 10.2 L (12.0-16.0) g/dL Hct 32.4 L (37.0-47.0) % MCV 103.2 H (81.0-99.0) fL MCH 32.5 H (27.0-31.0) pg MCHC 31.5 L (32.0-36.0) g/dL RDW 14.7 (12.0-15.0) % Plt Count 143 (130-450) 10^3/uL MPV 11.3 H (7.9-10.8) fL Neut # (Auto) 2.5 (1.5-6.6) 10^3/uL Lymph # (Auto) 1.4 L (1.5-3.5) 10^3/uL [place] # (Auto) 0.5 (0.0-1.0) 10^3/uL Eos # (Auto) 0.2 (0.0-0.7) 10^3/uL Baso # (Auto) 0.0 (0.0-0.1) 10^3/uL Absolute Nucleated RBC 0.00 x10^3/uL Nucleated RBC % 0.0 /100WBC Sodium 136 (135-145) mmol/L Potassium 3.9 (3.5-4.5) mmol/L Chloride 110 (101-111) mmol/L Carbon Dioxide 24 (21-32) mmol/L Anion Gap 2.0 L (6-13) BUN 7 (6-20) mg/dL Creatinine 0.5 L (0.6-1.3) mg/dL Estimated GFR (MDRD) 140 (>89) Glucose 114 H (74-104) mg/dL Calcium 7.9 L (8.5-10.3) mg/dL Magnesium 1.7 (1.7-2.3) mg/dL Total Bilirubin 0.4 (0.2-1.0) mg/dL AST 14 (10-42) IU/L ALT 5 L (10-60) IU/L Alkaline Phosphatase 43 (42-121) IU/L Total Protein 4.9 L (6.4-8.9) g/dL Albumin 2.9 L (3.2-5.5) g/dL Globulin 2.0 L (2.1-4.2) g/dL Albumin/Globulin Ratio 1.5 (1.0-2.2) Lipase 46 (11-82) U/L Sepsis Event Note (H) - Evaluation Current Stage of Sepsis: Ruled out Assessment/Plan - Problem List (1) Pancreatitis Impression: Lipase started at 1232, 434>> 309 yesterday and 46 today. White cell count 10.8>>5.8>>4.6 today. No fever. At 48 hours, and while calcium is low at 8.4 it is not less than 8. Hematocrit has not fallen greater than 10%. Her pCO2 on blood gas is 85 on room air. BUN has dropped by 5 not risen by 5. Base deficit is -3.2. And her fluid resuscitation has been about 3700 cc. So her score is 0 points for [place]'s criteria yesterday. Today she is still in pain but really hungry. wanted to eat so on low fat meals and no change in pain. It is LUQ, along L side of abd and goes down to LLQ and somewhat over bladder. After eating 3 meals today, no change in pain. Crying with frustration of pain not going away. It's a 10/10. But no N/V, no rebound, no guarding. Plan: I stopped IV dilaudid and change to po . Maintenance fluids have been stopped. Still on IV zofran or phenergan. Continue low fat diet. On her Creon with meals. She doesn't want to leave due to the pain and wants to go home tomorrow am. Qualifiers: Chronicity: acute Pancreatitis type: alcohol induced Acute pancreatitis complication: no infection or necrosis Qualified Code(s): K85.20 - Alcohol induced acute pancreatitis without necrosis or infection (2) Abdominal pain Impression: due to pancreatitis and pain was not responding to half a milligram every 2 hours of Dilaudid. I increased to 1 mg IVP every 2 hours as needed. she still feels like pain will suddenly surge to a higher level of 8 out of a 10 but then go back down to a 3 and a waxing and waning pattern. I did not change her Dilaudid 10/09 and today I did change to po. If she spikes a fever or develops an elevated white cell count, will do CT of the abdomen. Qualifiers: Abdominal location: left upper quadrant Qualified Code(s): R10.12 - Left upper quadrant pain (3) Alcohol abuse Impression: No previous history of withdrawal. No withdrawal with this admit. alcohol level 84.9 on admit. Plan: Able to take p.o. now. So she has received 1 banana bag IV. Now on oral thiamine and vitamin. No need for benzodiazepines since she has not had any withdrawal. (4) Hypomagnesemia/Hypocalcemia Impression: Received supplementation in the emergency room. Received 2 g in ER and magnesium went from 1.5->>2.4. Today she is 1.7. So no rider needed. HOwever, Calcium is below 8 and I calculated corrected calcium using her albumin, and she did need calcium gluconate which I ordered as a rider. Plan: Check mag level on a daily basis and supplement as needed Qualifiers: Qualified Code(s): K85.20 - Alcohol induced acute pancreatitis without necrosis or infection
--- NOTE | 2023-10-09 18:16 | Discharge Plan ---
Discharge Plan Problem Reviewed?: Yes Disposition: Home, Self Care Condition: Fair Prescriptions: Ondansetron Odt [Zofran Odt] 4 mg TL Q4HR PRN #10 tab PRN Reason: Nausea / Vomiting HYDROmorphone [Dilaudid] 2 mg PO Q4H PRN #10 tab PRN Reason: Severe Pain (Level 7-10) Thiamine [Vitamin B-1] 100 mg PO DAILY #30 tab Diet: Regular (low fat) Activity Restrictions: Activity as Tolerated Shower Restrictions: No Driving Restrictions: Yes (no driving while taking dilaudid) Health Concerns: You are well-known to us because you have frequent episodes of pancreatitis due to alcohol abuse and a previous history of a pseudocyst of the pancreas. Unfortunately you had a low ab emotionally due to confrontation with your mom about your kids. It was very stressful and you had an episode of binge drinking. Pancreatitis has returned. While this episode was associated with elevated pancreas enzymes, there is no evidence of severe infection. Your blood pressure stayed stable. Your oxygen stayed stable. You just had a lot of abdominal pain. You were initially with ice chips, then clear liquid diet, and you were very hungry on the day that your labs were normal and you were started on a low-fat diet. You had no vomiting. You were able to tolerate the diet but your abdominal pain was really bothering you at a 10/10 along your left side of the abdomen. You asked to stay another day. We changed your status in the computer to stay another day. You change your mind and have decided to go home after all. Plan of Treatment: Please do not drink again. This is very dangerous for you. I was glad to see that you are able to recover from the pancreas with regards to your lab levels but the next time you may not be so leroy. We have warned you many times that this type of pancreatitis could cause to your life. I am sending you home with Zofran for nausea. I am also giving you 10 tablets of Dilaudid 2 mg every 6 hours as needed. Please see your primary care provider in follow-up. Please go back to counseling to stop drinking. I would like you to take thiamine which helps your bone marrow recover after drinking. And I would also like you to take a vitamin for B12. Care Goals: To Stop drinking forever Assessment: patient is alert, oriented to person, place, time and situation. No Smoking: If you smoke, Please STOP! Call for help.
--- NOTE | 2023-10-09 18:27 | DISCHARGE SUMMARY ---
Discharge Summary Admit Date: 10/07/23 Discharge Date: 10/09/23 Discharging Provider: Mamie Reese MD Primary Care Provider: DINAH Vidales Code Status: Do Not Attempt Resuscitation Condition at Discharge: Fair Discharge Disposition: 01 Home, Self Care - HPI History of Present Illness: 37-year-old woman with history of alcohol abuse, pancreatitis and GERD. She also has a history of pancreatic pseudocyst. She tells me "I had been doing really well" with regard to her alcohol abuse, and developed epigastric pain radiating to the back about a week ago. She has been drinking in the interim with her last drink "a few days ago. She has not been vomiting but has had diarrhea. 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, states she relapsed with ETOH, no allergies has 2 kids 8 and 11 yrs lives with mom and dad, is in lots of pain at this time, hemodynamics are stable - Past Medical History Cardiovascular: reports: None Respiratory: reports: None Neuro: reports: Headaches Endocrine/Autoimmune: reports: None GI: reports: GERD, Pancreatitis, Hepatitis, Cholelithiasis FLEET MANAGER: reports: None : reports: Kidney stones HEENT: reports: None Psych: reports: Depression, Anxiety, Panic attacks Musculoskeletal: reports: None Derm: reports: None MRSA Hx?: No - Past Surgical History General: reports: EGD /FLEET MANAGER: reports: Other HEENT: reports: Tonsil/Adenoidectomy - HOSPITAL COURSE Hospital Course: This unfortunate female has recurrent pancreatitis. At least with this admission her pseudocyst has resolved. It has been drained. No more functional outlet obstruction. But pain was severe and at times a 10 out of a 10. Giovana's criteria was collected after 48 hours and she had 0 points and as such a low risk of complications. Treatment consisted of n.p.o. except for ice chips. As labs normalized she wanted to eat something so she was transition to clear liquid diet. On the day of discharge she was very hungry and wanted to eat a normal meal and as such she was put on a low-fat diet because amylase was normal. White cell count was normal. No fever. Normal bowel sounds. However pain continued to be a 10 out of a 10 which caused her to be tearful. Pain medicines were transition from IV Dilaudid to p.o. Dilaudid on the day of discharge. Pain was still significant and she wanted to stay another day even though she was tolerating her diet, labs were normal, and vitals were stable. As such I changed her status from observation to inpatient since she was to remain another 24 hours for pain control. On the evening of discharge, she changed her mind. She felt like she wanted to go home after all. As such of I discharged her in stable condition. Temperature was 36.7. Heart rate 74. Blood pressure 126/82. Respirations 20. 93% on room air. Pain was a 7 out of a 10. She is 5 foot 7 inches tall, 80 kg. Lungs are clear to auscultation and percussion. There is no respiratory di stress. Regular rate and rhythm. No tachycardia. Abdomen is tender in the left upper quadrant, left mid abdomen, left lower quadrant and over the bladder. But no rebound or guarding. Normal bowel sounds. She had a bowel movement this morning. Extremities are without edema. She does have right forearm edema where an IV infiltrated. But no thrombophlebitis. I have asked her to refrain from drinking. Her risk getting complications from pancreatitis is high. This current episode was not too severe according to Giovana's criteria. I have asked her to follow-up with a counselor to help her stop drinking. I would like her to be on thiamine for the next 30 days, as well as a vitamin. Resume her Creon with meals. And for pain she was given 10 tablets of 2 mg of Dilaudid. That is her preferred medication for pain control. - ALLERGIES Allergies/Adverse Reactions: Allergies Allergy/AdvReac Type Severity Reaction Status Date / Time No Known Drug Allergies Allergy Verified 10/06/23 19:20 - MEDICATIONS Home Medications: Ambulatory Orders Medication Instructions Recorded Confirmed Escitalopram Oxalate 20 mg PO DAILY 07/07/23 10/07/23 Famotidine [Pepcid] 20 mg PO DAILY 10/07/23 10/07/23 Lipase/Protease/Amylase 1 cap PO TIDWM 10/07/23 10/07/23 [Pancrelipase Dr 5,000/17,000/24,000 Assisted] HYDROmorphone [Dilaudid] 2 mg PO Q4H PRN #10 tab 04/25/24 Ondansetron Odt [Zofran Odt] 4 mg TL Q4HR PRN #10 tab 10/09/23 Thiamine [Vitamin B-1] 100 mg PO DAILY #30 tab 10/09/23 - LABS Result Diagrams: 10/09/23 05:41 10/09/23 05:41 - SEPSIS Current Stage of Sepsis: Ruled out
[2023-10-09 19:05] VITALS: BP 137/99; O2SAT 97
== END 2023-10-09 19:04 | disposition home or self-care (01) | DRG 440 ==
LOC: EDUNIT# → ED 19:10 → MS2 22:23 → OBSVTOIN 10-08 10:41
PROVIDERS: ADMIT Internal Medicine; ATTEND Specialist
DX: K85.20 Alcohol induced acute pancreatitis without necrosis or infection (principal); F10.10 Alcohol abuse, uncomplicated; K21.9 Gastro-esophageal reflux disease without esophagitis; F32.A Depression, unspecified; F41.9 Anxiety disorder, unspecified; F17.210 Nicotine dependence, cigarettes, uncomplicated; E83.42 Hypomagnesemia; E83.51 Hypocalcemia; Z32.02 Encounter for pregnancy test, result negative; Z56.0 Unemployment, unspecified; Z79.899 Other long term (current) drug therapy
CPT/HCPCS: 36415; 36600; 74177; 80053; 81003; 81025; 82077; 82803; 83690; 83735; 85025; 96365; 96366; 96367; 96372; 96375; 96376; 99285; A9270; G0378; J1170; J2765; J3411; J7040; Q9967; 81001; 87086

== ENCOUNTER 2023-10-27 09:31 | Outpatient (CLI) | payer MEDICAID | END 2023-10-27 22:54 | disposition critical access hospital (66) | LOC: EMS 09:31 | DX: R06.00 Dyspnea, unspecified (principal); R11.0 Nausea; F10.11 Alcohol abuse, in remission; R45.89 Other symptoms and signs involving emotional state; Z59.00 Homelessness unspecified | CPT/HCPCS: A0425; A0429; A0999 ==

== ENCOUNTER 2023-10-27 09:57 | Emergency (ER) | payer MEDICAID ==
--- NOTE | 2023-10-27 10:07 | ED Physician Documentation ---
PD HPI ABD PAIN - Stated complaint Stated Complaint: SOA - Chief complaint Chief Complaint: Abd Pain - History obtained from History obtained from: Patient - Additional information Additional information: Patient is a 37-year-old female with a history of pancreatitis, alcohol abuse presenting for evaluation of epigastric abdominal pain with associated nausea that started this morning. EMS reported that patient felt short of air but patient states that she felt like she was panicking because of her symptoms. She states that she has been doing well and not had any alcohol in the past 3 weeks and trying to help herself but she took some sips of her friends soda this morning and reports it tasted "wonky" and then started having pain which concerned her. EMS reported they were able to cheerleading coach her breathing and her shortness of air resolved.Patient denies fever, cough, congestion, chest pain, difficulty breathing. Denies dysuria or hematuria. Does report pain is on the right side of her abdomen. Has had prior surgeries for kidney stones as well as tonsils but denies cholecystectomy or prior appendectomy. She was recently hospitalized at the end of September for a bout of pancreatitis. She has not followed back up with her GI in [facility]. Review of Systems Constitutional: denies: Fever Cardiac: denies: Chest pain / pressure Respiratory: denies: Cough GI: reports: Abdominal Pain, Nausea : denies: Dysuria PD PAST MEDICAL HISTORY - Past Medical History Cardiovascular: None Respiratory: None Neuro: Headaches Endocrine/Autoimmune: None GI: GERD, Pancreatitis, Cholelithiasis CIGAR INSPECTOR: None : Kidney stones HEENT: None Psych: Depression, Anxiety, Panic attacks, Post traumatic stress disorder Musculoskeletal: None Derm: None - Past Surgical History Past Surgical History: Yes General: EGD /CIGAR INSPECTOR: Other HEENT: Tonsil/Adenoidectomy - Present Medications Home Medications: Ambulatory Orders Medication Instructions Recorded Confirmed Escitalopram Oxalate 20 mg PO DAILY 07/07/23 10/27/23 Famotidine [Pepcid] 20 mg PO DAILY 10/07/23 10/27/23 Lipase/Protease/Amylase 1 cap PO TIDWM 10/07/23 10/27/23 [[address]lip[address] Dr 5,000/17,000/24,000 [facility]] Ondansetron Odt [Zofran Odt] 4 mg TL Q4HR PRN #10 tab 10/09/23 10/27/23 Thiamine [Vitamin B-1] 100 mg PO DAILY #30 tab 10/09/23 10/27/23 Ondansetron Odt [Zofran] 4 mg TL Q6H PRN #15 tablet 10/27/23 oxyCODONE [Roxicodone] 5 mg PO Q6H PRN #15 tablet 10/27/23 - Allergies Allergies/Adverse Reactions: Allergies Allergy/AdvReac Type Severity Reaction Status Date / Time No Known Drug Allergies Allergy Verified 10/06/23 19:20 - Social History Does the pt smoke?: Yes Smoking Status: Current every day smoker Does the pt drink ETOH?: Yes Does the pt have substance abuse?: Yes - Immunizations Immunizations are current?: Yes - POLST Patient has POLST: No POLST Status: Full Code PD ED PE NORMAL - General General: Alert and oriented X 3, No acute distress, Well developed/nourished - HEENT HEENT: Atraumatic - Neck Neck: Supple, no meningeal sign - Cardiac Cardiac: RRR, Strong equal pulses - Respiratory Respiratory: No respiratory distress, Clear bilaterally - Abdomen Abdomen: Normal bowel sounds, Soft, Non distended, Other (Epigastric and right- sided abdominal tenderness) - Derm Derm: Warm and dry - Neuro Neuro: Normal speech Results - Vitals Vitals: Vital Signs - 24 hr 10/27/23 10/27/23 10/27/23 09:59 12:04 13:02 Temperature 36.3 C L Heart Rate 104 H 94 90 Respiratory 18 18 16 Rate Blood Pressure 122/97 H 132/84 H 130/82 H O2 Saturation 97 96 98 Oxygen O2 Source Room air - EKG (time done) 1013 EKG releavant findings:: EKG personally interpreted by author of this note. Relevant findings are: Rate 101, sinus tachycardia, no STEMI, QTc 473 - Labs Labs: Laboratory Tests 10/27/23 10/27/23 10/27/23 10:08 10:30 10:30 WBC 5.5 RBC 4.34 Hgb 13.9 Hct 41.9 MCV 96.5 MCH 32.0 H MCHC 33.2 RDW 14.0 Plt Count 145 MPV 10.5 Neut # (Auto) 3.7 Lymph # (Auto) 1.3 L [place] # (Auto) 0.4 Eos # (Auto) 0.0 Baso # (Auto) 0.0 Absolute Nucleated RBC 0.00 Nucleated RBC % 0.0 Sodium 135 Potassium 3.5 Chloride 101 Carbon Dioxide 21 Anion Gap 13.0 BUN 16 Creatinine 0.9 Estimated GFR (MDRD) 71 L Glucose 110 H Calcium 9.0 Total Bilirubin 0.8 AST 25 ALT 11 Alkaline Phosphatase 85 Total Protein 7.4 Albumin 4.1 Globulin 3.3 Albumin/Globulin Ratio 1.2 Lipase 39 Urine Color DARK YELLOW Urine Clarity CLEAR Urine pH 5.5 Ur Specific [place] >=1.030 H Urine Protein TRACE Urine Glucose (UA) NEGATIVE Urine Ketones NEGATIVE Urine Occult Blood NEGATIVE Urine Nitrite NEGATIVE Urine Bilirubin SMALL H Urine Urobilinogen 0.2 (NORMAL) Ur Leukocyte Esterase NEGATIVE Ur Microscopic Review NOT INDICATED Urine Culture Comments NOT INDICATED Urine HCG, Qual NEGATIVE Ethyl Alcohol 75.6 PD Medical Decision Making - ED course Complexity details: reviewed results, re-evaluated patient, d/w patient ED course: Patient is a 37-year-old female with a history of recurrent pancreatitis and alcohol abuse presenting with upper abdominal pain starting this morning after drinking some soda of her friends. She has mild epigastric and right-sided abdominal tenderness. An EKG is reviewed and without acute ischemia. CBC, chemistry, urinalysis were reviewed without significant findings. Given reports of right-sided abdominal pain a CT scan was also obtained. She does have findings of acute on chronic pancreatitis. Her pain is significantly improved after IV fluids, Zofran and 2 doses of IV Dilaudid. She is tolerating p.o. intake with liquids here and her pain appears adequately controlled. She has been able to manage episodes as an outpatient in the past and feels comfortable in trying to do so today. Patient understands importance of close follow-up with her PCP as well as GI and understands concerning symptoms to return for. Departure - Departure Disposition: 01 Home, Self Care Clinical Impression: Acute on chronic pancreatitis Condition: Stable Instructions: ED Pancreatitis Prescriptions: oxyCODONE [Roxicodone] 5 mg PO Q6H PRN #15 tablet PRN Reason: Pain Ondansetron Odt [Zofran] 4 mg TL Q6H PRN #15 tablet PRN Reason: Nausea / Vomiting Comments: Your testing today shows that you are having a bout of pancreatitis. Fortunately your labs are reassuring with no elevation in your lipase or liver markers. As you are tolerating liquids I feel we can manage her symptoms as an outpatient. Please make sure you are abstaining from any alcohol. You did have some alcohol in your system today with an EtOH level of 0.07.I have sent pre scriptions to help you with pain and nausea to [facility] in [place]. Please have close follow-up with your director customer and primary care provider. Return to the ER with any worsening symptoms. I am prescribing a short course of narcotic pain medication for you. These are potentially dangerous and addictive medications that should be used carefully. These medications may constipate you. Take an [id number] stool softener (docusate) twice daily with plenty of water while taking these medications. If you go 24 hours without a bowel movement, take [id number] miralax, per package instructions. Do not drink or drive while taking these medications. If you received narcotic or sedating medications while in the emergency department, do not drive for 24 hours. Store this medication in a safe, secure place and out of reach of children. It is a violation of federal law to give or sell this medication to another person or to use in a manner other than prescribed. The ED will not refill narcotic prescriptions, including prescriptions lost or stolen. To dispose of unwanted medications: 1. [facility] [address] [facility] in [place] has a medication drop box. They accept prescription medications (in pill form) Friday through Friday 9:00 a.m. to 5:00 p.m. 2. [facility] accepts prescription medications (in pill form only) for disposal year round. Call for more information. 3. Contact the [facility] for the next [facility] sponsored prescription drug collection event. , [phone], or [phone]; Note that many narcotic pain relievers also contain Tylenol/acetaminophen. Please ensure that your total dose of acetaminophen from all sources does not e xceed 3 g (3000 mg) per day. Forms: PCP List Discharge Date/Time: 10/27/23 13:02
[2023-10-27 10:20] LABS: BILIRUBIN,URINE SMALL (NEGATIVE); GLUCOSE, URINE (UA) NEGATIVE (NEGATIVE); KETONES,URINE (UA) NEGATIVE (NEGATIVE); LEUKOCYTE ESTERASE, URINE NEGATIVE (NEGATIVE); NITRITE,URINE NEGATIVE (NEGATIVE); OCCULT BLOOD,URINE NEGATIVE (NEGATIVE); PH,URINE 5.5 PH (5.0-7.5); PROTEIN,URINE TRACE mg/dL (NEGATIVE); UROBILINOGEN,URINE 0.2 (NORMAL) E.U./dL (NORMAL)
[2023-10-27 10:23] LABS: CLARITY,URINE CLEAR (CLEAR); HCG UR QUAL NEGATIVE
[2023-10-27 10:38] LABS: BASOPHILS % (AUTO) 0.5 %; EOSINOPHILS % (AUTO) 0.4 %; HCT - HEMATOCRIT 41.9 % (37.0-47.0); HGB - HEMOGLOBIN 13.9 g/dL (12.0-16.0); LYMPHOCYTES # (AUTO) 1.3 10^3/uL (1.5-3.5); LYMPHOCYTES % (AUTO) 23.6 %; MEAN CORPUSCULAR HGB CONC 33.2 g/dL (32.0-36.0); MEAN CORPUSCULAR VOLUME 96.5 fL (81.0-99.0); MEAN PLATELET VOLUME 10.5 fL (7.9-10.8); MONOCYTES # (AUTO) 0.4 10^3/uL (0.0-1.0); MONOCYTES % (AUTO) 7.5 %; NEUTROPHILS # (AUTO) 3.7 10^3/uL (1.5-6.6); NEUTROPHILS % (AUTO) 67.8 %; PLT - PLATELET COUNT 145 10^3/uL (130-450); RED BLOOD COUNT 4.34 10^6/uL (4.20-5.40); WHITE BLOOD COUNT 5.5 x10^3/uL (4.8-10.8)
[2023-10-27] MEDS: ONDANSETRON 4 MG/2 ML VIAL IVP STA (10:38)
[2023-10-27] MEDS: HYDROmorphone 1 MG/ML CARPUJECT IVP STA ×2 (10:39→11:50)
[2023-10-27] MEDS ORDERED: iohexoL-300 100 ML VIAL ONE (10:39)
[2023-10-27 10:53] LABS: ALBUMIN 4.1 g/dL (3.2-5.5); ALBUMIN/GLOBULIN RATIO 1.2 (1.0-2.2); BILIRUBIN,TOTAL 0.8 mg/dL (0.2-1.0); CREATININE 0.9 mg/dL (0.6-1.3); ETOH - ETHANOL 75.6 mg/dL; POTASSIUM 3.5 mmol/L (3.5-4.5); TOTAL PROTEIN 7.4 g/dL (6.4-8.9)
[2023-10-27] MEDS: PANTOPRAZOLE 40 MG VIAL IVP STA (11:50)
--- NOTE | 2023-10-27 11:58 | CT Report ---
PROCEDURE: Abdomen/Pelvis W INDICATIONS: R lower abdominal pain CONTRAST: 80 mL Omni 300 100ml TECHNIQUE: After the administration of intravenous contrast, a CT scan of the abdomen and pelvis was performed. Images were recorded and evaluated at appropriate window settings. Reformats: coronal and sagittal. F or radiation dose reduction, the following was used: automated exposure control, adjustment of mA and /or kV according to patient size. COMPARISON: CT abdomen and pelvis, 10/06/2023, 04/26/2023, 02/04/2023. FINDINGS: Image quality: Diagnostic. Lower chest: Unremarkable. Liver: Moderately enlarged measuring 23.1 mm in length. No solid mass. Mild hepatic steatosis. Gallbladder: No radiopaque gallstones. Biliary tree: No intrahepatic or extrahepatic dilation, accounting for age. Spleen: No splenomegaly. Pancreas: Mild stranding in pancreatic head and small amount of peripancreatic fluid, compatible with acute pancreatitis. Compared to last exam dated 10/06/2023, there is decreased peripancreatic edema. No findings to suggest pancreatic necrosis. No pancreatic ductal dilation. No pancreatic pseudocysts. There are foci of calcifications in pancreatic head, consistent with superimposed chronic pancreatit is. Adrenals: No adrenal nodule. Kidneys and ureters: No hydronephrosis. No renal cystic lesion which requires follow up. No solid mas s. Stomach, bowel and peritoneum: Normal appendix. A cause for right lower quadrant pain is not identifi ed. No gastric or small bowel dilation. No abnormal wall thickening. No pathologic free fluid. Lymph nodes: No central or retroperitoneal adenopathy. Vessels: No infrarenal aortic aneurysm. Patent portal vein. PELVIS Reproductive organs: There is an IUD in uterus. Ovaries are grossly normal. No pathological free flui d in cul-de-sac or adnexa.. Bladder: No abnormal wall thickening, accounting for underdistention. Pelvic lymph nodes: No pelvic adenopathy by size criteria. Bones: No aggressive osseous abnormality. Other: No significant ventral or inguinal hernia. IMPRESSION: 1. Acute pancreatitis superimposed on chronic pancreatitis. There is decreased inflammatory change se condary to acute pancreatitis compared to last exam. 2. Hepatomegaly and hepatic steatosis. 3. Normal appendix. Reviewed by: Quique Otoole MD on 10/27/2023 11:56 AM PDT Approved by: Quique Otoole MD on 10/27/2023 11:56 AM PDT Station ID: [id number]
[2023-10-27] MEDS: oxyCODONE 5 MG TABLET PO STA (12:22)
[2023-10-27 13:07] VITALS: BP 130/82; O2SAT 98
[2023-10-27] MEDS: iohexoL-300 100 ML VIAL IVP ONE (15:58)
== END 2023-10-27 13:02 | disposition home or self-care (01) ==
LOC: EDUNIT# → ED 09:57 → SUPCPDRO 09:57 → ED 13:02
DX: K85.90 Acute pancreatitis without necrosis or infection, unspecified (principal); K86.1 Other chronic pancreatitis; F10.10 Alcohol abuse, uncomplicated; Y90.3 Blood alcohol level of 60-79 mg/100 ml; F17.200 Nicotine dependence, unspecified, uncomplicated; Z79.899 Other long term (current) drug therapy
CPT/HCPCS: 36415; 74177; 80053; 81003; 81025; 82077; 83690; 85025; 93005; 96374; 96375; 99284; 99285; A9270; J1170; Q9967; 81001; 87086

== ENCOUNTER 2023-10-28 08:16 | Outpatient (CLI) | payer MEDICAID | END 2023-10-28 08:17 | disposition critical access hospital (66) | LOC: EMS 08:16 | DX: R10.10 Upper abdominal pain, unspecified (principal); R11.10 Vomiting, unspecified | CPT/HCPCS: A0425; A0427; A0999 ==

== ENCOUNTER 2023-10-28 08:34 | Inpatient (IN) | payer MEDICAID ==
[2023-10-28] MEDS: HYDROmorphone 1 MG/ML CARPUJECT IVP STA ×4 (08:54→12:00)
[2023-10-28] MEDS: SODIUM CHLORIDE 0.9% 1,000 ML IV STA (08:55)
[2023-10-28 08:58] LABS: BASOPHILS % (AUTO) 0.2 %; EOSINOPHILS % (AUTO) 0.2 %; HCT - HEMATOCRIT 40.2 % (37.0-47.0); HGB - HEMOGLOBIN 13.3 g/dL (12.0-16.0); MEAN CORPUSCULAR HEMOGLOBIN 32.2 pg (27.0-31.0); MEAN CORPUSCULAR HGB CONC 33.1 g/dL (32.0-36.0); MEAN CORPUSCULAR VOLUME 97.3 fL (81.0-99.0); MEAN PLATELET VOLUME 11.3 fL (7.9-10.8); MONOCYTES # (AUTO) 0.6 10^3/uL (0.0-1.0); MONOCYTES % (AUTO) 7.5 %; NEUTROPHILS # (AUTO) 6.8 10^3/uL (1.5-6.6); NEUTROPHILS % (AUTO) 79.9 %; PLT - PLATELET COUNT 129 10^3/uL (130-450); RED BLOOD COUNT 4.13 10^6/uL (4.20-5.40); RED CELL DISTRIBUTION WIDTH 14.1 % (12.0-15.0); WHITE BLOOD COUNT 8.5 x10^3/uL (4.8-10.8)
[2023-10-28 09:15] LABS: ALBUMIN 3.9 g/dL (3.2-5.5); ALBUMIN/GLOBULIN RATIO 1.3 (1.0-2.2); BILIRUBIN,TOTAL 1.5 mg/dL (0.2-1.0); CALCIUM 9.2 mg/dL (8.5-10.3); CREATININE 0.8 mg/dL (0.6-1.3); POTASSIUM 3.5 mmol/L (3.5-4.5); TOTAL PROTEIN 6.9 g/dL (6.4-8.9)
[2023-10-28] MEDS: PANTOPRAZOLE 40 MG VIAL IVP STA (10:29)
[2023-10-28] MEDS ORDERED: ACETAMINOPHEN 325 MG TABLET PO PRN (11:57)
[2023-10-28] MEDS ORDERED: ONDANSETRON ODT 4 MG TABLET TL PRN (11:57)
[2023-10-28] MEDS ORDERED: LORazepam 1 MG TABLET PO PRN (12:00)
[2023-10-28] MEDS ORDERED: LORazepam 2 MG/ML VIAL IVP PRN (12:00)
--- NOTE | 2023-10-28 12:14 | HISTORY & PHYSICAL EXAMINATION ---
Chief Complaint - Chief Complaint Chief Complaint: abdominal pain History of Present Illness - Admitted From Admitted From:: ED, came from home - History Obtained From Records Reviewed: Yes History obtained from: Patient and ED provider Exam Limitations: No - History of Present Illness HPI Comment/Other: A 37yo F, with hx of alcohol dependence, recurrent alcohol pancreatitis, previous hx of alcohol withdrawal, GERD Recent hospitalization in 09/2023 for acute on chronic pancreatitis. Came to ED on 10/27/2023 with significant abdominal pain along with nausea and vomiting. Patient reports she tried "soda" drink from her friend, it tasted weird. she started having abdominal pain, nausea with vomiting later. Abdominal pain is diffused, peak at 7-8/10 dull pain, she had two bowel movement, not loose, no blood or darkness. Vomitus was food content, no blood noted. No fever or chills, no other discomforts. Patient reports she would like to have alcohol cessation rehab, she is motivated to quite drinking. In the ED, vss, alcohol level 0.7, lipase 342. CT abdomen on 10/27/2023 appears acute on chronic pancreatitis. Patient needs iv Dilaudid for pain control in the ED. Admitted for pancreattitis and high risk for alcohol withdrawal. History - Past Medical History Cardiovascular: reports: None Respiratory: reports: None Neuro: reports: Headaches Endocrine/Autoimmune: reports: None GI: reports: GERD, Pancreatitis, Cholelithiasis MIXER DIAMOND POWDER: reports: None : reports: Kidney stones HEENT: reports: None Psych: reports: Depression, Anxiety, Panic attacks, Post traumatic stress disorder Musculoskeletal: reports: None Derm: reports: None MRSA Hx?: No - Past Surgical History General: reports: EGD /MIXER DIAMOND POWDER: reports: Other HEENT: reports: Tonsil/Adenoidectomy - Family & Social History Family History: Mother: Alive and Well Family History Comment/Other: Her mother has history of thyroid disease. Living Situation: With family Social History Notes: She previously drank alcohol on a consistent basis but now denies any use. She smokes a couple cigarettes a day and has been doing so for the past 16 years. She lives with 2 daughters, aged 7 & 10, and with her mother. 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 - Substance History Use: Uses substance without health or social issues: Tobacco - POLST Patient has POLST: No POLST Status: Full Code Meds/Allgy - Home Medications Home Medications: Ambulatory Orders Medication Instructions Recorded Confirmed Escitalopram Oxalate 20 mg PO DAILY 07/07/23 10/28/23 Famotidine [Pepcid] 20 mg PO DAILY 10/07/23 10/28/23 Lipase/Protease/Amylase 1 cap PO TIDWM 10/07/23 10/28/[address] [Pan[address]lipase Dr 5,000/17,000/24,000 [facility]] Ondansetron Odt [Zofran Odt] 4 mg TL Q4HR PRN #10 tab 10/09/23 10/28/23 Thiamine [Vitamin B-1] 100 mg PO DAILY #30 tab 10/09/23 10/28/23 Ondansetron Odt [Zofran] 4 mg TL Q6H PRN #15 tablet 10/27/23 10/28/23 oxyCODONE [Roxicodone] 5 mg PO Q6H PRN #15 tablet 10/27/23 10/28/23 - Allergies Allergies/Adverse Reactions: Allergies Allergy/AdvReac Type Severity Reaction Status Date / Time No Known Drug Allergies Allergy Verified 10/28/23 08:40 Review of Systems - Constitutional Constitutional: reports: Fatigue, Malaise, Poor appetite - Cardiovascular Cariovascular: denies: Chest pain, Lightheadedness, Syncope - Respiratory Respiratory: denies: Cough, Wheezing, Orthopnea - Gastrointestinal Gastrointestinal: reports: Abdominal pain, Nausea, Vomiting. denies: Change in bowel habits, Rectal bleeding, Black stools - Genitourinary Genitourinary: denies: Dysuria, Frequency, Urgency - Musculoskeletal Musculoskeletal: denies: Muscle weakness - Integumentary Integumentary: denies: Rash - Neurological Neurological: reports: General weakness, Other (occassional leg jerky movement). denies: Focal weakness - Endocrine Endocrine: denies: Polyuria, Polydypsia - Hematologic/Lymphatic Hematologic/Lymphatic: denies: Bruising, Blood clots Prior Level of Functionality: lives with boyfriend, independent ADLs Exam - Vital Signs Reviewed Vital Signs: Yes Vital Signs: Vital Signs x48h Temp Pulse Resp BP Pulse Ox 10/28/23 10:40 93 18 123/97 H 97 10/28/23 08:37 36.6 C 128 H 16 127/109 H 98 - Physical Exam General Appearance: positive: No acute distress, Alert, Anxious Eyes Bilateral: positive: PERRL, EOMI Neck: positive: Nml inspection, No JVD Respiratory: positive: Chest non-tender, No respiratory distress Cardiovascular: positive: Regular rate & rhythm, No murmur, No gallop Peripheral Pulses: positive: 2+ Abdomen: positive: Nml bowel sounds, Tenderness. negative: Rebound Skin: positive: Color nml. negative: Diaphoresis, Pallor, Skin rash Extremities: positive: Full ROM. negative: Non-tender Neurologic/Psychiatric: positive: Oriented x3 Sepsis Event Note (H) - Evaluation Current Stage of Sepsis: Ruled out Conclusion/Plan - Problem List (1) Acute on chronic pancreatitis Conclusion/Plan: related to alcohol use iv fluid clear liquid diet antiemisis, analgesia, supportive care Alcohol cessation education (2) Bilirubinemia Conclusion/Plan: Bilirubin 1.5, elevated likely secondary to alcohol hepatitis -monitoring CMP, if worsening, may need treatment (3) Hyponatremia Conclusion/Plan: mild, Na 133 may due to N/V, poor oral intake -iv fluid -monitoring electrolytes (4) Alcohol withdrawal Conclusion/Plan: Alcohol dependent Alcohol level 0.7 on admission, hx of alcohol withdrawal -[facility] protocol, monitoring, give ativan as needed - Lab Results Lab results reviewed: Yes Fish Bones: 10/28/23 08:51 10/28/23 08:51 - Diagnostic Imaging Results Diagnostic Imaging Results: positive: Final report reviewed
[2023-10-28] MEDS ORDERED: oxyCODONE 5 MG TABLET PO PRN (12:29)
[2023-10-28 12:32] LABS: BASOPHILS % (AUTO) 0.3 %; EOSINOPHILS % (AUTO) 0.3 %; HCT - HEMATOCRIT 38.1 % (37.0-47.0); HGB - HEMOGLOBIN 12.6 g/dL (12.0-16.0); LYMPHOCYTES # (AUTO) 1.3 10^3/uL (1.5-3.5); LYMPHOCYTES % (AUTO) 17.2 %; MEAN CORPUSCULAR HEMOGLOBIN 32.5 pg (27.0-31.0); MEAN CORPUSCULAR HGB CONC 33.1 g/dL (32.0-36.0); MEAN CORPUSCULAR VOLUME 98.2 fL (81.0-99.0); MEAN PLATELET VOLUME 11.2 fL (7.9-10.8); MONOCYTES # (AUTO) 0.6 10^3/uL (0.0-1.0); MONOCYTES % (AUTO) 7.8 %; NEUTROPHILS # (AUTO) 5.6 10^3/uL (1.5-6.6); NEUTROPHILS % (AUTO) 74.1 %; PLT - PLATELET COUNT 111 10^3/uL (130-450); RED BLOOD COUNT 3.88 10^6/uL (4.20-5.40); RED CELL DISTRIBUTION WIDTH 14.1 % (12.0-15.0); WHITE BLOOD COUNT 7.5 x10^3/uL (4.8-10.8)
[2023-10-28 12:35] LABS: PT - PROTHROMBIN TIME 10.8 secs (9.9-12.6)
[2023-10-28 12:49] LABS: ALBUMIN 3.6 g/dL (3.2-5.5); ALBUMIN/GLOBULIN RATIO 1.4 (1.0-2.2); BILIRUBIN,TOTAL 1.2 mg/dL (0.2-1.0); CALCIUM 8.6 mg/dL (8.5-10.3); CREATININE 0.6 mg/dL (0.6-1.3); POTASSIUM 3.7 mmol/L (3.5-4.5); TOTAL PROTEIN 6.2 g/dL (6.4-8.9)
[2023-10-28] MEDS: SODIUM CHLORIDE 0.9% 1,000 ML IV SCH (12:56)
[2023-10-28] MEDS: HYDROcod/ACETAM 5/325 MG TABLET PO PRN (13:04)
[2023-10-28] MEDS: HYDROmorphone 0.5 MG/0.5 ML SYRINGE IVP PRN ×2 (13:05→16:26)
[2023-10-28 13:12] LABS: HCG UR QUAL NEGATIVE
[2023-10-28 13:21] LABS: AMPHETAMINE SCREEN,URINE NEGATIVE (NEGATIVE); BARBITURATE SCREEN,UR NEGATIVE (NEGATIVE); BENZODIAZEPINES SCREEN, URINE NEGATIVE (NEGATIVE); BUPRENORPHINE SCREEN, URINE NEGATIVE (NEGATIVE); COCAINE SCREEN URINE NEGATIVE (NEGATIVE); METHADONE SCREEN, URINE NEGATIVE (NEGATIVE); METHAMPHETAMINES SCREEN, URINE NEGATIVE (NEGATIVE); OPIATE SCREEN, URINE POSITIVE (NEGATIVE); OXYCODONE SCREEN, URINE POSITIVE (NEGATIVE); THC CANNABINOID SCREEN, URINE NEGATIVE (NEGATIVE); TRICYCLIC ANTIDEPRESSANT,URINE NEGATIVE (NEGATIVE)
[2023-10-28] MEDS: ONDANSETRON 4 MG/2 ML VIAL IVP PRN (13:44)
--- NOTE | 2023-10-28 15:46 | PHARMACY PROGRESS NOTE ---
- Best Possible Medication History Admit Date and Time: 10/28/23 1153 Processed by: Nursing Medications reviewed in ED?: Yes Medication History completed: Yes Patient Interview: Completed Secondary Source(s): Insurance records As the person ultimately responsible for medication therapy, providers are able to order a medication from an existing home medication list in [facility] via the "Reconcile Routine" prior to Confirmation of that medication by operations support specialist. Such practice is discouraged except when the physician, in their clinical judgment, deems that a medical need exists for a medication without regard to previous use.
[2023-10-28] MEDS: SODIUM CHLORIDE FLUSH 0.9% 10 ML SYRINGE IVP SCH (16:27)
[2023-10-28] MEDS ORDERED: HYDROmorphone 0.5 MG/0.5 ML SYRINGE IVP PRN ×2 (18:28→18:33)
[2023-10-28] MEDS: HYDROmorphone 1 MG/ML CARPUJECT IVP PRN (18:41)
[2023-10-28] MEDS ORDERED: HYDROmorphone 2 MG/ML VIAL IVP PRN (18:59)
[2023-10-28] MEDS: SODIUM CHLORIDE FLUSH 0.9% 10 ML SYRINGE IVP PRN (20:54)
[2023-10-29 05:46] LABS: BASOPHILS % (AUTO) 0.3 %; EOSINOPHILS % (AUTO) 0.5 %; HCT - HEMATOCRIT 36.4 % (37.0-47.0); HGB - HEMOGLOBIN 11.9 g/dL (12.0-16.0); LYMPHOCYTES # (AUTO) 0.9 10^3/uL (1.5-3.5); LYMPHOCYTES % (AUTO) 10.8 %; MEAN CORPUSCULAR HEMOGLOBIN 32.6 pg (27.0-31.0); MEAN CORPUSCULAR HGB CONC 32.7 g/dL (32.0-36.0); MEAN CORPUSCULAR VOLUME 99.7 fL (81.0-99.0); MEAN PLATELET VOLUME 11.6 fL (7.9-10.8); MONOCYTES # (AUTO) 0.7 10^3/uL (0.0-1.0); MONOCYTES % (AUTO) 8.8 %; NEUTROPHILS # (AUTO) 6.2 10^3/uL (1.5-6.6); NEUTROPHILS % (AUTO) 79.3 %; PLT - PLATELET COUNT 96 10^3/uL (130-450); RED BLOOD COUNT 3.65 10^6/uL (4.20-5.40); WHITE BLOOD COUNT 7.9 x10^3/uL (4.8-10.8)
[2023-10-29 05:54] LABS: ALBUMIN 3.3 g/dL (3.2-5.5); ALBUMIN/GLOBULIN RATIO 1.3 (1.0-2.2); BILIRUBIN,TOTAL 0.9 mg/dL (0.2-1.0); CALCIUM 8.4 mg/dL (8.5-10.3); CREATININE 0.6 mg/dL (0.6-1.3); MAGNESIUM 1.3 mg/dL (1.7-2.3); PHOSPHORUS 2.1 mg/dL (2.5-5.0); POTASSIUM 3.5 mmol/L (3.5-4.5); TOTAL PROTEIN 5.8 g/dL (6.4-8.9)
[2023-10-29] MEDS: ENOXAPARIN 40 MG/0.4 ML SYRINGE SUBQ SCH (07:26)
[2023-10-29] MEDS: PRENATAL VITAMIN TABLET PO SCH (08:34)
[2023-10-29] MEDS: THIAMINE 100 MG TABLET PO SCH (08:34)
--- NOTE | 2023-10-29 10:20 | PROVIDER PROGRESS NOTE ---
Assessment/Plan - Problem List (1) Acute on chronic pancreatitis Assessment/Plan: About the same patient still requires frequent pain meds, would cry for help with complaining of pain, also wants to start trying food -iv fluid -pain meds -clear liquid diet (2) Bilirubinemia Assessment/Plan: improved Bilrubin down to 0.9 continue monitoring CMP (3) Hyponatremia Assessment/Plan: about the same 132 today continue iv fluid follow up on electrolytes (4) Alcohol withdrawal Assessment/Plan: appears stable Low CIWA score continue monitoring last drink 10/26/2023 (5) Disorder of electrolytes Assessment/Plan: low Mg, low phos, low normal K related to alcohol buttermaker continuous churn use, poor absorption and profound depletion Mg 1.2, Phos 2.1, K 3.5 give replenishment, continue monitoring - Current Meds Current Meds: Current Medications Generic Name Dose Route Start Last Admin Trade Name Freq PRN Reason Stop Dose Admin Hydrocodone Bitart/Acetaminophen 1 tab 10/28/23 11:57 10/29/23 06:21 Hydrocod/Acetam 5/325 Mg Tablet PO 1 tab Q4HR PRN Administration Pain 5 to 7 Enoxaparin Sodium 40 mg 10/29/23 09:00 10/29/23 07:26 Enoxaparin 40 Mg/0.4 Ml Syringe SUBQ Not Given DAILY LUCY Sodium Chloride 1,000 mls @ 83.333 mls/hr 10/28/23 13:00 10/29/23 00:56 Normal Saline 0.9% IV 10/29/23 13:00 83.333 mls/hr .Q12H LUCY Administration Ondansetron HCl 4 mg 10/28/23 11:57 10/29/23 06:21 Ondansetron 4 Mg/2 Ml Vial IVP 4 mg Q6HR PRN Administration Nausea / Vomiting Multivit/Folic Acid/Iron 1 tab 10/29/23 08:00 10/29/23 08:34 Vitamin Tablet PO 1 tab DAILYWM LUCY Administration Sodium Chloride 10 ml 10/28/23 17:00 10/29/23 08:35 Sodium Chloride Flush 0.9% 10 Ml Syringe IVP 10 ml 0100,0900,1700 LUCY Administration Sodium Chloride 10 ml 10/28/23 11:57 10/28/23 20:54 Sodium Chloride Flush 0.9% 10 Ml Syringe IVP 10 ml PRN PRN Administration NEEDED PER PROVIDER ORDERS Thiamine HCl 100 mg 10/29/23 09:00 10/29/23 08:34 Thiamine 100 Mg Tablet PO 100 mg DAILY LUCY Administration - Lab Result Lab results reviewed: Yes Fish Bone Diagrams: 10/29/23 05:20 10/29/23 05:20 - Additional Planning Condition/Complexity: Stable My Orders: My Active Orders 10/28/23 11:57 Activity Orders [RC] Q2HR IO [RC] IOSHIFT Initiate Bowel Care Protocol [RC] .protocol Initiate Line Care Protocol [RC] QSHIFT Initiate Personal Care Protoco [RC] .protocol Vital Signs [RC] 0800,1600,0000 Acetaminophen [Tylenol] 650 mg PO Q4HR PRN HYDROcod/ACETAM 5/325 [Humphrey 5/325] 1 tab PO Q4HR PRN Ondansetron Inj [Zofran Inj] 4 mg IVP Q6HR PRN Ondansetron Odt [Zofran Odt] 4 mg TL Q6HR PRN Sodium Chloride Flush 0.9% [Normal Saline Flush 0.9%] 10 ml IVP PRN PRN Code Status [OTHERS] Routine Condition of Patient [OTHERS] Routine DVT Prophylaxis [OTHERS] Routine 10/28/23 12:00 ELENO QUEZADA Score Card [RC] Q4HR Social Work Consult [CONS] Routine LORazepam INJ [Ativan Inj (Vial)] 1 mg IVP Q30M PRN LORazepam [Ativan] 1 mg PO Q1H PRN 10/28/23 13:00 Sodium Chloride 0.9% [Normal Saline 0.9%] 1,000 ml IV 83.333 mls/hr 10/28/23 17:00 Sodium Chloride Flush 0.9% [Normal Saline Flush 0.9%] 10 ml IVP 0100,0900,1700 10/29/23 08:00 Vitamin [Trinatal Rx 1] 1 tab PO DAILYWM 10/29/23 09:00 Enoxaparin [Lovenox] 40 mg SUBQ DAILY Thiamine [Vitamin B-1] 100 mg PO DAILY 10/29/23 10:15 Ketorolac Inj (15Mg) [Toradol Inj (15Mg)] 15 mg IVP Q6HR PRN 10/29/23 10:16 HYDROmorphone 1MG CARP [Dilaudid 1Mg Carp] 2 mg IVP Q2H PRN 10/29/23 11:00 Magnesium Oxide [Mag Ox] 400 mg PO BID 10/29/23 Lunch Clear Liquid Diet [DIET] 10/29/23 12:00 Neutra-Phos [K-Phos Neutral] 250 mg PO TIDWM 10/29/23 21:00 Magnesium Sulfate 2 Gram [Magnesium Sulfate] 2 gm in 50 ml IV BID 10/30/23 05:00 CBC [CBC - COMP BLD CT W/AUTO DIFF] [HEME] DAILYLAB CMP [COMPREHENSIVE METABOLIC PANEL] [CHEM] DAILYLAB LIPASE [CHEM] DAILYLAB MAGNESIUM [CHEM] DAILYLAB 10/31/23 05:00 CBC [CBC - COMP BLD CT W/AUTO DIFF] [HEME] DAILYLAB CMP [COMPREHENSIVE METABOLIC PANEL] [CHEM] DAILYLAB 11/01/23 05:00 CBC [CBC - COMP BLD CT W/AUTO DIFF] [HEME] DAILYLAB CMP [COMPREHENSIVE METABOLIC PANEL] [CHEM] DAILYLAB 11/02/23 05:00 CBC [CBC - COMP BLD CT W/AUTO DIFF] [HEME] DAILYLAB CMP [COMPREHENSIVE METABOLIC PANEL] [CHEM] DAILYLAB Plan Discussed with:: Patient Time Spent: 15-30 minutes Subjective - Subjective Patient Reports: Other (abdominal pain, severe, but would like to have water and something to eat) Objective Vital Signs: Vital Signs - 24 hr 10/28/23 10/28/23 10/28/23 10:40 12:38 16:23 Temperature 36.6 C 37.0 C Heart Rate 93 Heart Rate [ 92 82 Brachial] Respiratory 18 18 18 Rate Blood Pressure 123/97 H Blood Pressure 121/95 H 123/90 H [Right Brachial artery] O2 Saturation 97 95 99 10/28/23 10/29/23 23:40 08:00 Temperature 37.0 C 36.4 C L Heart Rate Heart Rate [ 91 100 Brachial] Respiratory 20 20 Rate Blood Pressure Blood Pressure 134/89 H 130/94 H [Right Brachial artery] O2 Saturation 97 98 Oxygen O2 Source Room air I&O (Last 24 Hrs): Intake and Output Totals x24h 10/27/23 10/28/23 10/29/23 23:59 23:59 23:59 Intake Total 2200 1497.218 Output Total 200 300 Balance 2000 1197.218 General: Oriented x3, Mild distress (due to pain, cry) HEENT: PERRLA, EOMI Neck: Supple, No JVD Neuro: Alert, Non Focal Cardiovascular: Regular rate Respiratory: Chest non-tender, No respiratory distress Abdomen: Soft, Other (tender) Extremities: No clubbing, No edema Skin: No rashes - Results Results: Laboratory Results WBC 7.9 x10^3/uL (4.8-10.8) 10/29/23 05:20 RBC 3.65 10^6/uL (4.20-5.40) L 10/29/23 05:20 Hgb 11.9 g/dL (12.0-16.0) L 10/29/23 05:20 Hct 36.4 % (37.0-47.0) L 10/29/23 05:20 MCV 99.7 fL (81.0-99.0) H 10/29/23 05:20 MCH 32.6 pg (27.0-31.0) H 10/29/23 05:20 MCHC 32.7 g/dL (32.0-36.0) 10/29/23 05:20 RDW 14.0 % (12.0-15.0) 10/29/23 05:20 Plt Count 96 10^3/uL (130-450) L 10/29/23 05:20 MPV 11.6 fL (7.9-10.8) H 10/29/23 05:20 Neut # (Auto) 6.2 10^3/uL (1.5-6.6) 10/29/23 05:20 Lymph # (Auto) 0.9 10^3/uL (1.5-3.5) L 10/29/23 05:20 [place] # (Auto) 0.7 10^3/uL (0.0-1.0) 10/29/23 05:20 Eos # (Auto) 0.0 10^3/uL (0.0-0.7) 10/29/23 05:20 Baso # (Auto) 0.0 10^3/uL (0.0-0.1) 10/29/23 05:20 Absolute Nucleated RBC 0.00 x10^3/uL 10/29/23 05:20 Nucleated RBC % 0.0 /100WBC 10/29/23 05:20 PT 10.8 secs (9.9-12.6) 10/28/23 12:21 INR 1.0 (0.8-1.2) 10/28/23 12:21 Sodium 132 mmol/L (135-145) L 10/29/23 05:20 Potassium 3.5 mmol/L (3.5-4.5) 10/29/23 05:20 Chloride 103 mmol/L (101-111) 10/29/23 05:20 Carbon Dioxide 25 mmol/L (21-32) 10/29/23 05:20 Anion Gap 4.0 (6-13) L 10/29/23 05:20 BUN 5 mg/dL (6-20) L 10/29/23 05:20 Creatinine 0.6 mg/dL (0.6-1.3) 10/29/23 05:20 Estimated GFR (MDRD) 113 (>89) 10/29/23 05:20 Glucose 130 mg/dL (74-104) H 10/29/23 05:20 Calcium 8.4 mg/dL (8.5-10.3) L 10/29/23 05:20 Phosphorus 2.1 mg/dL (2.5-5.0) L 10/29/23 05:20 Magnesium 1.3 mg/dL (1.7-2.3) L 10/29/23 05:20 Total Bilirubin 0.9 mg/dL (0.2-1.0) 10/29/23 05:20 AST 14 IU/L (10-42) 10/29/23 05:20 ALT 7 IU/L (10-60) L 10/29/23 05:20 Alkaline Phosphatase 70 IU/L (42-121) 10/29/23 05:20 Total Protein 5.8 g/dL (6.4-8.9) L 10/29/23 05:20 Albumin 3.3 g/dL (3.2-5.5) 10/29/23 05:20 Globulin 2.5 g/dL (2.1-4.2) 10/29/23 05:20 Albumin/Globulin Ratio 1.3 (1.0-2.2) 10/29/23 05:20 Lipase 342 U/L (11-82) H 10/28/23 08:51 Urine HCG, Qual NEGATIVE 10/28/23 12:45 Urine Opiates Screen POSITIVE (NEGATIVE) H 10/28/23 12:45 Ur Buprenorphine Scrn NEGATIVE (NEGATIVE) 10/28/23 12:45 Ur Oxycodone Screen POSITIVE (NEGATIVE) H 10/28/23 12:45 Urine Methadone Screen NEGATIVE (NEGATIVE) 10/28/23 12:45 Ur Barbiturates Screen NEGATIVE (NEGATIVE) 10/28/23 12:45 Ur Tricyclics Screen NEGATIVE (NEGATIVE) 10/28/23 12:45 Ur Phencyclidine Scrn NEGATIVE (NEGATIVE) 10/28/23 12:45 Ur Amphetamine Screen NEGATIVE (NEGATIVE) 10/28/23 12:45 U Methamphetamines Scrn NEGATIVE (NEGATIVE) 10/28/23 12:45 U Benzodiazepines Scrn NEGATIVE (NEGATIVE) 10/28/23 12:45 Urine Cocaine Screen NEGATIVE (NEGATIVE) 10/28/23 12:45 U Cannabinoids Screen NEGATIVE (NEGATIVE) 10/28/23 12:45 Ur Drug Screen Comment CUTOFF CONC BELOW: 10/28/23 12:45 Ethyl Alcohol < 10.0 mg/dL 10/28/23 08:51 - Procedures Procedures: Procedures INSERTION OF INFUSION DEV INTO SUP VENA CAVA, PERC APPROACH (04/09/22) INTRODUCTION OF NUTRITIONAL INTO PERIPH VEIN, PERC APPROACH (04/09/22) MANUAL ASSIST DELIV NEC (11/14/14) Sepsis Event Note (H) - Evaluation Current Stage of Sepsis: Ruled out ABX Reporting Has patient been on IV antibiotics over the past 48 hours?: No Current Medications - Current Medications Current Medications: Active Medications Acetaminophen (Acetaminophen 325 Mg Tablet) 650 mg PO Q4HR PRN PRN Reason: Pain 1 to 4, or Fever Hydrocodone Bitart/Acetaminophen (Hydrocod/Acetam 5/325 Mg Tablet) 1 tab PO Q4HR PRN PRN Reason: Pain 5 to 7 Last Admin: 10/29/23 06:21 Dose: 1 tab Enoxaparin Sodium (Enoxaparin 40 Mg/0.4 Ml Syringe) 40 mg SUBQ DAILY LUCY Last Admin: 10/29/23 07:26 Dose: Not Given Hydromorphone HCl (Hydromorphone 2 Mg/Ml Vial) 2 mg IVP Q2H PRN PRN Reason: Severe Pain (Level 7-10) Sodium Chloride (Normal Saline 0.9%) 1,000 mls @ 83.333 mls/hr IV .Q12H [facility] Stop: 10/30/23 13:00 Last Admin: 10/29/23 00:56 Dose: 83.333 mls/hr Magnesium Sulfate (Magnesium Sulfate) 2 gm in 50 mls @ 50 mls/hr IV BID [facility] Stop: 11/01/23 21:59 Ketorolac Tromethamine (Ketorolac 15 Mg/Ml Vial) 15 mg IVP Q6HR PRN PRN Reason: Severe Pain (Level 7-10) Stop: 11/02/23 10:14 Lorazepam (Lorazepam 1 Mg Tablet) 1 mg PO Q1H PRN; Protocol PRN Reason: CIWA > 8 Lorazepam (Lorazepam 2 Mg/Ml Vial) 1 mg IVP Q30M PRN; Protocol PRN Reason: CIWA >8 Magnesium Oxide (Magnesium Oxide 400 Mg Tablet) 400 mg PO BID [facility] Ondansetron HCl (Ondansetron Odt 4 Mg Tablet) 4 mg TL Q6HR PRN PRN Reason: Nausea / Vomiting Ondansetron HCl (Ondansetron 4 Mg/2 Ml Vial) 4 mg IVP Q6HR PRN PRN Reason: Nausea / Vomiting Last Admin: 10/29/23 06:21 Dose: 4 mg Multivit/Folic Acid/Iron ( Vitamin Tablet) 1 tab PO DAILYWM [facility] Last Admin: 10/29/23 08:34 Dose: 1 tab Sodium Chloride (Sodium Chloride Flush 0.9% 10 Ml Syringe) 10 ml IVP 0100,0900,1700 [facility] Last Admin: 10/29/23 08:35 Dose: 10 ml Sodium Chloride (Sodium Chloride Flush 0.9% 10 Ml Syringe) 10 ml IVP PRN PRN PRN Reason: NEEDED PER PROVIDER ORDERS Last Admin: 10/28/23 20:54 Dose: 10 ml Sodium Phosphate (Neutra-Phos 250 Mg Tablet) 250 mg PO TIDWM [facility] Stop: 11/03/23 23:59 Thiamine HCl (Thiamine 100 Mg Tablet) 100 mg PO DAILY [facility] Last Admin: 10/29/23 08:34 Dose: 100 mg Escitalopram Oxalate 20 mg PO DAILY 07/07/23 Famotidine [Pepcid] 20 mg PO DAILY 04/23/24 Lipase/Protease/Amylase [Pancrelipase Dr 5,000/17,000/24,000 Correction] 1 cap PO TIDWM 10/07/23
[2023-10-29] MEDS: MAGNESIUM OXIDE 400 MG TABLET PO SCH (10:25)
[2023-10-29] MEDS: HYDROmorphone 2 MG/ML VIAL IVP PRN (11:25)
[2023-10-29] MEDS: MAGNESIUM SULFATE 2 GRAM 2 GM/50 ML BAG IV SCH (11:25)
[2023-10-29] MEDS: KETOROLAC 15 MG/ML VIAL IVP PRN (13:48)
[2023-10-29] MEDS: NEUTRA-PHOS 250 MG TABLET PO SCH (14:45)
[2023-10-30 04:53] LABS: EOSINOPHILS # (AUTO) 0.1 10^3/uL (0.0-0.7); HCT - HEMATOCRIT 34.3 % (37.0-47.0); HGB - HEMOGLOBIN 11.1 g/dL (12.0-16.0); MEAN CORPUSCULAR HEMOGLOBIN 32.6 pg (27.0-31.0); MEAN CORPUSCULAR HGB CONC 32.4 g/dL (32.0-36.0); MEAN CORPUSCULAR VOLUME 100.6 fL (81.0-99.0); PLT - PLATELET COUNT 77 10^3/uL (130-450); RED BLOOD COUNT 3.41 10^6/uL (4.20-5.40); RED CELL DISTRIBUTION WIDTH 14.2 % (12.0-15.0)
[2023-10-30 05:10] LABS: ALBUMIN/GLOBULIN RATIO 1.2 (1.0-2.2); BILIRUBIN,TOTAL 0.5 mg/dL (0.2-1.0); CREATININE 0.5 mg/dL (0.6-1.3); MAGNESIUM 1.8 mg/dL (1.7-2.3); TOTAL PROTEIN 5.6 g/dL (6.4-8.9)
[2023-10-30 05:12] LABS: WHITE BLOOD COUNT 4.3 x10^3/uL (4.8-10.8)
[2023-10-30 05:13] LABS: BASOPHILS % (AUTO) 0.5 %; EOSINOPHILS % (AUTO) 2.3 %; LYMPHOCYTES # (AUTO) 0.9 10^3/uL (1.5-3.5); LYMPHOCYTES % (AUTO) 20.7 %; MONOCYTES # (AUTO) 0.3 10^3/uL (0.0-1.0); NEUTROPHILS # (AUTO) 2.9 10^3/uL (1.5-6.6); NEUTROPHILS % (AUTO) 68.3 %
--- NOTE | 2023-10-30 09:06 | PROVIDER PROGRESS NOTE ---
Assessment/Plan - Problem List (1) Acute on chronic pancreatitis Assessment/Plan: improved patient's abdominal pain is better, able to tolerate diet lipase down to 35 if continue improving, may be discharged to home tomorrow (2) Bilirubinemia Assessment/Plan: Resolved, 0.5 today (3) Hyponatremia Assessment/Plan: Na 131 today appears to be a chronic issue, lowest 125 in the past may be from excessive water intake? vs SIADH -start on free water restriction (4) Alcohol withdrawal Assessment/Plan: No sign of withdrawal discontinue CIWA (5) Disorder of electrolytes Assessment/Plan: Improved Phosphate, Mg are improved to 2.6, 1.8 K down to 3.0 -replenished - Current Meds Current Meds: Current Medications Generic Name Dose Route Start Last Admin Trade Name Freq PRN Reason Stop Dose Admin Hydrocodone Bitart/Acetaminophen 1 tab 10/28/23 11:57 10/29/23 23:59 Hydrocod/Acetam 5/325 Mg Tablet PO 1 tab Q4HR PRN Administration Pain 5 to 7 Enoxaparin Sodium 40 mg 10/29/23 09:00 10/30/23 08:23 Enoxaparin 40 Mg/0.4 Ml Syringe SUBQ Not Given DAILY LUCY Sodium Chloride 1,000 mls @ 83.333 mls/hr 10/28/23 13:00 10/30/23 01:07 Normal Saline 0.9% IV 10/30/23 13:00 83.3 mls/hr .Q12H LUCY Administration Magnesium Sulfate 2 gm in 50 mls @ 50 mls/hr 10/29/23 12:00 10/30/23 08:22 Magnesium Sulfate IV 11/01/23 21:59 50 mls/hr BID LUCY Administration Ketorolac Tromethamine 15 mg 10/29/23 10:15 10/29/23 21:51 Ketorolac 15 Mg/Ml Vial IVP 11/02/23 10:14 15 mg Q6HR PRN Administration Severe Pain (Level 7-10) Magnesium Oxide 400 mg 10/29/23 11:00 10/30/23 08:23 Magnesium Oxide 400 Mg Tablet PO 400 mg BID LUCY Administration Ondansetron HCl 4 mg 10/28/23 11:57 10/29/23 06:21 Ondansetron 4 Mg/2 Ml Vial IVP 4 mg Q6HR PRN Administration Nausea / Vomiting Multivit/Folic Acid/Iron 1 tab 10/29/23 08:00 10/30/23 08:22 Vitamin Tablet PO 1 tab DAILYWM LUCY Administration Sodium Chloride 10 ml 10/28/23 17:00 10/30/23 08:23 Sodium Chloride Flush 0.9% 10 Ml Syringe IVP 10 ml 0100,0900,1700 LUCY Administration Sodium Chloride 10 ml 10/28/23 11:57 10/28/23 20:54 Sodium Chloride Flush 0.9% 10 Ml Syringe IVP 10 ml PRN PRN Administration NEEDED PER PROVIDER ORDERS Sodium Phosphate 250 mg 10/29/23 12:00 10/30/23 08:23 Neutra-Phos 250 Mg Tablet PO 11/03/23 23:59 250 mg TIDWM LUCY Administration Thiamine HCl 100 mg 10/29/23 09:00 10/30/23 08:22 Thiamine 100 Mg Tablet PO 100 mg DAILY LUCY Administration - Lab Result Lab results reviewed: Yes Fish Bone Diagrams: 10/30/23 04:40 10/30/23 04:40 - Additional Planning Condition/Complexity: Improved My Orders: My Active Orders 10/29/23 09:00 Enoxaparin [Lovenox] 40 mg SUBQ DAILY Thiamine [Vitamin B-1] 100 mg PO DAILY 10/29/23 10:15 Ketorolac Inj (15Mg) [Toradol Inj (15Mg)] 15 mg IVP Q6HR PRN 10/29/23 11:00 Magnesium Oxide [Mag Ox] 400 mg PO BID 10/29/23 12:00 Magnesium Sulfate 2 Gram [Magnesium Sulfate] 2 gm in 50 ml IV BID Neutra-Phos [K-Phos Neutral] 250 mg PO TIDWM 10/30/23 05:00 PHOSPHORUS [CHEM] Routine 10/30/23 09:00 Potassium Chloride [Micro-K] 20 meq PO BID 10/30/23 09:05 HYDROmorphone 2MG VIAL [Dilaudid 2Mg Vial] 2 mg IVP Q4H PRN 10/30/23 Lunch DIET [Low Fat Diet] [DIET] 10/31/23 05:00 CBC [CBC - COMP BLD CT W/AUTO DIFF] [HEME] DAILYLAB CMP [COMPREHENSIVE METABOLIC PANEL] [CHEM] DAILYLAB MAGNESIUM [CHEM] DAILYLAB PHOSPHORUS [CHEM] DAILYLAB 11/01/23 05:00 CBC [CBC - COMP BLD CT W/AUTO DIFF] [HEME] DAILYLAB CMP [COMPREHENSIVE METABOLIC PANEL] [CHEM] DAILYLAB 11/02/23 05:00 CBC [CBC - COMP BLD CT W/AUTO DIFF] [HEME] DAILYLAB CMP [COMPREHENSIVE METABOLIC PANEL] [CHEM] DAILYLAB Plan Discussed with:: Patient Time Spent: 15-30 minutes Subjective - Subjective Patient Reports: Abdominal Pain (better, feels hungry) Objective Vital Signs: Vital Signs - 24 hr 10/29/23 10/30/23 10/30/23 16:00 00:00 08:00 Temperature 37.0 C 37.3 C 37.1 C Heart Rate [ 95 93 93 Brachial] Respiratory 18 16 18 Rate Blood Pressure 123/90 H 114/92 H 128/82 H [Right Brachial artery] O2 Saturation 98 98 92 Oxygen O2 Source Room air I&O (Last 24 Hrs): Intake and Output Totals x24h 10/28/23 10/29/23 10/30/23 23:59 23:59 23:59 Intake Total 2200 3819.159 1240 Output Total 200 600 500 Balance 2000 3219.159 740 General: Alert, Oriented x3, No acute distress HEENT: PERRLA, EOMI Neck: No JVD Neuro: Alert, Non Focal Cardiovascular: Regular rate Respiratory: Chest non-tender, No respiratory distress Abdomen: Soft, Other (mild tender) Extremities: No edema Skin: No rashes, No breakdown - Results Results: Laboratory Results WBC 4.3 x10^3/uL (4.8-10.8) L 10/30/23 04:40 RBC 3.41 10^6/uL (4.20-5.40) L 10/30/23 04:40 Hgb 11.1 g/dL (12.0-16.0) L 10/30/23 04:40 Hct 34.3 % (37.0-47.0) L 10/30/23 04:40 MCV 100.6 fL (81.0-99.0) H 10/30/23 04:40 MCH 32.6 pg (27.0-31.0) H 10/30/23 04:40 MCHC 32.4 g/dL (32.0-36.0) 10/30/23 04:40 RDW 14.2 % (12.0-15.0) 10/30/23 04:40 Plt Count 77 10^3/uL (130-450) L 10/30/23 04:40 MPV 12.0 fL (7.9-10.8) H 10/30/23 04:40 Neut # (Auto) 2.9 10^3/uL (1.5-6.6) 10/30/23 04:40 Lymph # (Auto) 0.9 10^3/uL (1.5-3.5) L 10/30/23 04:40 [place] # (Auto) 0.3 10^3/uL (0.0-1.0) 10/30/23 04:40 Eos # (Auto) 0.1 10^3/uL (0.0-0.7) 10/30/23 04:40 Baso # (Auto) 0.0 10^3/uL (0.0-0.1) 10/30/23 04:40 Absolute Nucleated RBC 0.00 x10^3/uL 10/30/23 04:40 Nucleated RBC % 0.0 /100WBC 10/30/23 04:40 PT 10.8 secs (9.9-12.6) 10/28/23 12:21 INR 1.0 (0.8-1.2) 10/28/23 12:21 Sodium 131 mmol/L (135-145) L 10/30/23 04:40 Potassium 3.0 mmol/L (3.5-4.5) L 10/30/23 04:40 Chloride 101 mmol/L (101-111) 10/30/23 04:40 Carbon Dioxide 26 mmol/L (21-32) 10/30/23 04:40 Anion Gap 4.0 (6-13) L 10/30/23 04:40 BUN 5 mg/dL (6-20) L 10/30/23 04:40 Creatinine 0.5 mg/dL (0.6-1.3) L 10/30/23 04:40 Estimated GFR (MDRD) 140 (>89) 10/30/23 04:40 Glucose 122 mg/dL (74-104) H 10/30/23 04:40 Calcium 8.0 mg/dL (8.5-10.3) L 10/30/23 04:40 Phosphorus 2.1 mg/dL (2.5-5.0) L 10/29/23 05:20 Magnesium 1.8 mg/dL (1.7-2.3) 10/30/23 04:40 Total Bilirubin 0.5 mg/dL (0.2-1.0) 10/30/23 04:40 AST 11 IU/L (10-42) 10/30/23 04:40 ALT 6 IU/L (10-60) L 10/30/23 04:40 Alkaline Phosphatase 75 IU/L (42-121) 10/30/23 04:40 Total Protein 5.6 g/dL (6.4-8.9) L 10/30/23 04:40 Albumin 3.0 g/dL (3.2-5.5) L 10/30/23 04:40 Globulin 2.6 g/dL (2.1-4.2) 10/30/23 04:40 Albumin/Globulin Ratio 1.2 (1.0-2.2) 10/30/23 04:40 Lipase 35 U/L (11-82) 10/30/23 04:40 Urine HCG, Qual NEGATIVE 10/28/23 12:45 Urine Opiates Screen POSITIVE (NEGATIVE) H 10/28/23 12:45 Ur Buprenorphine Scrn NEGATIVE (NEGATIVE) 10/28/23 12:45 Ur Oxycodone Screen POSITIVE (NEGATIVE) H 10/28/23 12:45 Urine Methadone Screen NEGATIVE (NEGATIVE) 10/28/23 12:45 Ur Barbiturates Screen NEGATIVE (NEGATIVE) 10/28/23 12:45 Ur Tricyclics Screen NEGATIVE (NEGATIVE) 10/28/23 12:45 Ur Phencyclidine Scrn NEGATIVE (NEGATIVE) 10/28/23 12:45 Ur Amphetamine Screen NEGATIVE (NEGATIVE) 10/28/23 12:45 U Methamphetamines Scrn NEGATIVE (NEGATIVE) 10/28/23 12:45 U Benzodiazepines Scrn NEGATIVE (NEGATIVE) 10/28/23 12:45 Urine Cocaine Screen NEGATIVE (NEGATIVE) 10/28/23 12:45 U Cannabinoids Screen NEGATIVE (NEGATIVE) 10/28/23 12:45 Ur Drug Screen Comment CUTOFF CONC BELOW: 10/28/23 12:45 Ethyl Alcohol < 10.0 mg/dL 10/28/23 08:51 - Procedures Procedures: Procedures INSERTION OF INFUSION DEV INTO SUP VENA CAVA, PERC APPROACH (04/09/22) INTRODUCTION OF NUTRITIONAL INTO PERIPH VEIN, PERC APPROACH (04/09/22) MANUAL ASSIST DELIV NEC (11/14/14) Sepsis Event Note (H) - Evaluation Current Stage of Sepsis: Ruled out ABX Reporting Has patient been on IV antibiotics over the past 48 hours?: No
[2023-10-30] MEDS: POTASSIUM CHLORIDE 10 MEQ CAPSULE PO SCH (10:17)
[2023-10-30] MEDS: HYDROmorphone 2 MG/ML VIAL IVP PRN ×2 (13:32→18:37)
[2023-10-30] MEDS ORDERED: polyethylene glycoL 3350 17 GM PACKET PO PRN (16:10)
[2023-10-30] MEDS: LIPASE/PROTEASE/AMYLASE CAPSULE PO SCH (17:10)
[2023-10-30] MEDS ORDERED: FAMOTIDINE 20 MG TABLET PO SCH (21:00)
[2023-10-30] MEDS: FAMOTIDINE 20 MG TABLET PO SCH (22:36)
[2023-10-31 05:18] LABS: BASOPHILS % (AUTO) 0.6 %; EOSINOPHILS # (AUTO) 0.1 10^3/uL (0.0-0.7); HCT - HEMATOCRIT 35.6 % (37.0-47.0); HGB - HEMOGLOBIN 11.3 g/dL (12.0-16.0); LYMPHOCYTES # (AUTO) 1.2 10^3/uL (1.5-3.5); LYMPHOCYTES % (AUTO) 36.9 %; MEAN CORPUSCULAR HEMOGLOBIN 32.2 pg (27.0-31.0); MEAN CORPUSCULAR HGB CONC 31.7 g/dL (32.0-36.0); MEAN CORPUSCULAR VOLUME 101.4 fL (81.0-99.0); MEAN PLATELET VOLUME 12.1 fL (7.9-10.8); MONOCYTES # (AUTO) 0.3 10^3/uL (0.0-1.0); MONOCYTES % (AUTO) 8.5 %; NEUTROPHILS # (AUTO) 1.7 10^3/uL (1.5-6.6); PLT - PLATELET COUNT 77 10^3/uL (130-450); RED BLOOD COUNT 3.51 10^6/uL (4.20-5.40); RED CELL DISTRIBUTION WIDTH 14.2 % (12.0-15.0); WHITE BLOOD COUNT 3.3 x10^3/uL (4.8-10.8)
[2023-10-31 05:48] LABS: ALBUMIN 3.1 g/dL (3.2-5.5); ALBUMIN/GLOBULIN RATIO 1.1 (1.0-2.2); BILIRUBIN,TOTAL 0.3 mg/dL (0.2-1.0); CALCIUM 8.7 mg/dL (8.5-10.3); CREATININE 0.6 mg/dL (0.6-1.3); MAGNESIUM 2.1 mg/dL (1.7-2.3); PHOSPHORUS 3.1 mg/dL (2.5-5.0); POTASSIUM 3.5 mmol/L (3.5-4.5); TOTAL PROTEIN 5.9 g/dL (6.4-8.9)
[2023-10-31] MEDS: ESCITALOPRAM 10 MG TABLET PO SCH (08:42)
[2023-10-31] MEDS: DOCUSATE SODIUM 100 MG CAPSULE PO SCH (08:44)
--- NOTE | 2023-10-31 12:48 | Discharge Plan ---
Discharge Plan Problem Reviewed?: Yes Disposition: Home, Self Care Condition: Good Prescriptions: Magnesium Citrate and Oxide [Magnesium] 250 mg PO DAILY 14 Days #14 cap oxyCODONE [Roxicodone] 5 mg PO Q6H PRN #15 tablet PRN Reason: Pain Thiamine [Vitamin B-1] 100 mg PO DAILY 30 Days #30 tab Diet: Soft Activity Restrictions: Activity as Tolerated Shower Restrictions: No Driving Restrictions: No Weight Bearing: Full Weight Instruction Topics: Addiction Recovery Counseling, Pancreatitis Health Concerns: Pancreatitis, acute on chronic Alcohol usually is the trigger of the acute pancreatitis in your case, please avoid alcohol intake Plan of Treatment: continue avoid alcohol use eat soft foot Care Goals: avoid another episode Assessment: medically stable for discharge No Smoking: If you smoke, Please STOP! Call for help. Follow-up with: Sylwia Leblanc ARNP [Credentialed Staff Provider] -
--- NOTE | 2023-10-31 12:53 | DISCHARGE SUMMARY ---
Discharge Summary Admit Date: 10/28/23 Discharge Date: 10/31/23 Discharging Provider: Everardo Smith Primary Care Provider: Sylwia Juan Code Status: Attempt Resuscitation Condition at Discharge: Good Discharge Disposition: 01 Home, Self Care - DIAGNOSES Admission Diagnoses: acute on chronic pancreatitis Discharge Diagnoses with Status of Each Condition: Acute on chronic pancreatitis, improved - HPI History of Present Illness: A 37yo F, with hx of alcohol dependence, recurrent alcohol pancreatitis, previous hx of alcohol withdrawal, GERD Recent hospitalization in 09/2023 for acute on chronic pancreatitis. Came to ED on 10/27/2023 with significant abdominal pain along with nausea and vomiting. Patient reports she tried "soda" drink from her friend, it tasted weird. she started having abdominal pain, nausea with vomiting later. Abdominal pain is diffused, peak at 7-8/10 dull pain, she had two bowel movement, not loose, no blood or darkness. Vomitus was food content, no blood noted. No fever or chills, no other discomforts. Patient reports she would like to have alcohol cessation rehab, she is motivated to quite drinking. In the ED, vss, alcohol level 0.7, lipase 342. CT abdomen on 10/27/2023 appears acute on chronic pancreatitis. Patient needs iv Dilaudid for pain control in the ED. Admitted for pancreattitis and high risk for alcohol withdrawal. - HOSPITAL COURSE Hospital Course: After admission, patient was on bowel rest, give iv fluid, pain management. Patient abdominal pain gets better overtime. Tolerated advanced diet. Patient has no sign of alcohol withdrawal during hospital stay. Electrolytes abnormality has been corrected. Patient is discharged to home in stable condition. Recommends patient to avoid alcohol intake. - ALLERGIES Allergies/Adverse Reactions: Allergies Allergy/AdvReac Type Severity Reaction Status Date / Time No Known Drug Allergies Allergy Verified 10/28/23 08:40 - MEDICATIONS Home Medications: Ambulatory Orders Medication Instructions Recorded Confirmed Escitalopram Oxalate 20 mg PO DAILY 07/07/23 10/28/23 Famotidine [Pepcid] 20 mg PO DAILY 10/07/23 10/28/23 Lipase/Protease/Amylase 1 cap PO TIDWM 10/07/23 10/28/23 [Pancrelipase Dr 5,000/17,000/24,000 Detention] Ondansetron Odt [Zofran Odt] 4 mg TL Q4HR PRN #10 tab 10/09/23 10/28/23 Thiamine [Vitamin B-1] 100 mg PO DAILY #30 tab 10/09/23 10/28/23 Ondansetron Odt [Zofran Odt] 4 mg TL Q6H PRN #15 tablet 10/27/23 10/28/23 Magnesium Citrate and Oxide 250 mg PO DAILY 14 Days #14 cap 10/31/23 [Magnesium] Thiamine [Vitamin B-1] 100 mg PO DAILY 30 Days #30 tab 10/31/23 oxyCODONE [Roxicodone] 5 mg PO Q6H PRN #15 tablet 10/31/23 - PHYSICAL EXAM AT DISCHARGE General Appearance: positive: No acute distress, Alert Eyes Bilateral: positive: PERRL, EOMI ENT: positive: ENT inspection nml Neck: positive: Nml inspection, No JVD Respiratory: positive: No respiratory distress Cardiovascular: positive: Regular rate & rhythm, No murmur, No gallop Peripheral Pulses: positive: 2+ Abdomen: positive: Non-tender, No distention Skin: positive: Warm, Dry Extremities: positive: Non-tender, No pedal edema - LABS Result Diagrams: 10/31/23 04:50 10/31/23 04:50 - SEPSIS Current Stage of Sepsis: Ruled out - FOLLOW UP Follow Up: Sylwia Leblanc - TIME SPENT Time Spent in Discharge (Minutes): 35
[2023-10-31 13:55] VITALS: BP 144/64; O2SAT 98
== END 2023-10-31 13:10 | disposition home or self-care (01) | DRG 439 ==
LOC: EDUNIT# → ED 08:34 → MS3 11:57
PROVIDERS: ADMIT Internal Medicine; ATTEND Internal Medicine
DX: K85.20 Alcohol induced acute pancreatitis without necrosis or infection (principal); E87.1 Hypo-osmolality and hyponatremia; F10.239 Alcohol dependence with withdrawal, unspecified; K86.0 Alcohol-induced chronic pancreatitis; K21.9 Gastro-esophageal reflux disease without esophagitis; F17.210 Nicotine dependence, cigarettes, uncomplicated; E80.6 Other disorders of bilirubin metabolism; E83.42 Hypomagnesemia; E83.39 Other disorders of phosphorus metabolism; E87.6 Hypokalemia; Y90.0 Blood alcohol level of less than 20 mg/100 ml; Z32.02 Encounter for pregnancy test, result negative; Z79.899 Other long term (current) drug therapy
CPT/HCPCS: 36415; 80053; 80306; 81025; 82077; 83690; 83735; 84100; 85025; 85610; A9270; J1170

== ENCOUNTER 2023-11-20 09:13 | Outpatient (CLI) | payer MEDICAID | END 2023-11-20 23:59 | disposition critical access hospital (66) | LOC: EMS 09:13 | DX: R10.84 Generalized abdominal pain (principal); R10.817 Generalized abdominal tenderness; R11.2 Nausea with vomiting, unspecified | CPT/HCPCS: A0425; A0427; A0999 ==

== ENCOUNTER 2023-11-20 09:33 | Emergency (ER) | payer MEDICAID ==
--- NOTE | 2023-11-20 09:57 | ED Physician Documentation ---
History of Present Illness - Stated complaint Stated Complaint: ABD PX/N/V - Chief complaint Chief Complaint: Abd Pain - History obtained from History obtained from: Patient - Additonal information Additional information: Patient comes to the emergency department chief complaint of recurrence of her chronic upper abdominal pain and nausea. The patient has been seen many times for this before and has a history of alcoholism, as well as alcoholic pancreatitis. She states she has not had a drink in 3 weeks. She denies any fevers or chills. There is nothing different about this episode from her many previous ones. It appears she was admitted about 3 weeks ago for her pancreatitis as well. PD PAST MEDICAL HISTORY - Past Medical History Cardiovascular: None Respiratory: None Neuro: Headaches Endocrine/Autoimmune: None GI: GERD, Pancreatitis, Cholelithiasis DIRECTOR PUBLIC POLICY: None : Kidney stones HEENT: None Psych: Depression, Anxiety, Panic attacks, Post traumatic stress disorder Musculoskeletal: None Derm: None - Past Surgical History Past Surgical History: Yes General: EGD /DIRECTOR PUBLIC POLICY: Other HEENT: Tonsil/Adenoidectomy - Present Medications Home Medications: Ambulatory Orders Medication Instructions Recorded Confirmed Escitalopram Oxalate 20 mg PO DAILY 07/07/23 11/20/23 Famotidine [Pepcid] 20 mg PO DAILY 10/07/23 11/20/23 Lipase/Protease/Amylase 1 cap PO TIDWM 10/07/23 11/20/23 [Pancrelipase Dr 5,000/17,000/24,000 Fpc] - Allergies Allergies/Adverse Reactions: Allergies Allergy/AdvReac Type Severity Reaction Status Date / Time No Known Drug Allergies Allergy Verified 11/20/23 09:44 - Social History Does the pt smoke?: Yes Smoking Status: Current every day smoker Does the pt drink ETOH?: Yes Does the pt have substance abuse?: Yes - Immunizations Immunizations are current?: Yes - POLST Patient has POLST: No POLST Status: Full Code PD ED PE NORMAL - Vitals Vital signs reviewed: Yes - General General: Alert and oriented X 3, No acute distress, Well developed/nourished - HEENT HEENT: Atraumatic, EOMI, Moist mucous membranes - Neck Neck: Supple, no meningeal sign - Cardiac Cardiac: RRR, No murmur - Respiratory Respiratory: No respiratory distress, Clear bilaterally - Abdomen Abdomen: Soft, Non distended, Other (Diffuse moderate tenderness, no rebound or guarding) - Derm Derm: Normal color (.), Warm and dry, No rash - Extremities Extremities: No deformity, No edema - Neuro Neuro: metal reclamation kettle tender 2-12 intact, Normal speech, Other (Alert, grossly oriented. Not clinically intoxicated.) - Psych Psych: Normal mood, Normal affect Results - Vitals Vitals: Vital Signs - 24 hr 11/20/23 11/20/23 11/20/23 09:35 11:41 12:25 Temperature 36.6 C Heart Rate 106 H 94 97 Respiratory 22 20 18 Rate Blood Pressure 132/93 H 124/91 H 111/84 H O2 Saturation 100 98 98 Oxygen O2 Source Room air - Labs Labs: Laboratory Tests 11/20/23 11/20/23 10:08 10:08 WBC 10.0 RBC 4.25 Hgb 14.0 Hct 41.0 MCV 96.5 MCH 32.9 H MCHC 34.1 RDW 14.0 Plt Count 136 MPV 11.9 H Neut # (Auto) 7.7 H Lymph # (Auto) 1.7 [place] # (Auto) 0.5 Eos # (Auto) 0.0 Baso # (Auto) 0.0 Absolute Nucleated RBC 0.00 Nucleated RBC % 0.0 Sodium 135 Potassium 3.9 Chloride 105 Carbon Dioxide 23 Anion Gap 7.0 BUN 20 Creatinine 1.2 Estimated GFR (MDRD) 51 L Glucose 126 H Calcium 8.7 Total Bilirubin 0.4 AST 37 ALT 20 Alkaline Phosphatase 102 Total Protein 6.1 L Albumin 3.5 Globulin 2.6 Albumin/Globulin Ratio 1.3 Lipase 68 PD Medical Decision Making - ED course Complexity details: reviewed old records, reviewed results, re-evaluated patient, considered differential, d/w patient ED course: The patient was worked up with laboratory studies and treated symptomatically with Dilaudid in the emergency department. Her labs actually look quite good today and did not show any evidence of pancreatitis. Her white blood cell count was normal. Upon reevaluation the patient was smiling and appeared much more comfortable than upon arrival and I felt she was stable for discharge home. Departure - Departure Disposition: 01 Home, Self Care Clinical Impression: Abdominal pain Qualifiers: Abdominal location: upper abdomen, unspecified Qualified Code(s): R10.10 - Upper abdominal pain, unspecified Nausea and vomiting Qualifiers: Vomiting type: bilious vomiting Qualified Code(s): R11.14 - Bilious vomiting Condition: Stable Instructions: ED Abdominal Pain Female Non-Specific Abdominal Pain, ED Nausea Vomiting Comments: Your labs actually look very good today and you do not have pancreatitis. Additionally, your white blood cell count is normal. You were given IV narcotics in the emergency department today and should not drive for the next 6 hours. Please follow-up with your primary doctor for further concerns. Forms: PCP List Discharge Date/Time: 11/20/23 12:30
[2023-11-20] MEDS: HYDROmorphone 1 MG/ML CARPUJECT IVP STA ×2 (09:59→12:24)
[2023-11-20 10:14] LABS: BASOPHILS % (AUTO) 0.3 %; EOSINOPHILS % (AUTO) 0.1 %; LYMPHOCYTES # (AUTO) 1.7 10^3/uL (1.5-3.5); LYMPHOCYTES % (AUTO) 17.3 %; MEAN CORPUSCULAR HEMOGLOBIN 32.9 pg (27.0-31.0); MEAN CORPUSCULAR HGB CONC 34.1 g/dL (32.0-36.0); MEAN CORPUSCULAR VOLUME 96.5 fL (81.0-99.0); MEAN PLATELET VOLUME 11.9 fL (7.9-10.8); MONOCYTES # (AUTO) 0.5 10^3/uL (0.0-1.0); MONOCYTES % (AUTO) 5.3 %; NEUTROPHILS # (AUTO) 7.7 10^3/uL (1.5-6.6); NEUTROPHILS % (AUTO) 76.7 %; PLT - PLATELET COUNT 136 10^3/uL (130-450); RED BLOOD COUNT 4.25 10^6/uL (4.20-5.40)
[2023-11-20 10:26] LABS: ALBUMIN 3.5 g/dL (3.2-5.5); ALBUMIN/GLOBULIN RATIO 1.3 (1.0-2.2); BILIRUBIN,TOTAL 0.4 mg/dL (0.2-1.0); CALCIUM 8.7 mg/dL (8.5-10.3); CREATININE 1.2 mg/dL (0.6-1.3); POTASSIUM 3.9 mmol/L (3.5-4.5); TOTAL PROTEIN 6.1 g/dL (6.4-8.9)
[2023-11-20 11:48] VITALS: O2SAT 98
[2023-11-20 12:28] VITALS: BP 111/84
== END 2023-11-20 12:30 | disposition home or self-care (01) ==
LOC: EDBD → EDUNIT# → ED 09:33
DX: R10.10 Upper abdominal pain, unspecified (principal); R11.14 Bilious vomiting; F17.200 Nicotine dependence, unspecified, uncomplicated
CPT/HCPCS: 36415; 80053; 83690; 85025; 96374; 99283; J1170

== ENCOUNTER 2024-01-01 03:17 | Outpatient (CLI) | payer MEDICAID | END 2024-01-01 23:59 | disposition critical access hospital (66) | LOC: EMS 03:17 | DX: R10.84 Generalized abdominal pain (principal); R10.817 Generalized abdominal tenderness | CPT/HCPCS: A0425; A0427; A0999 ==

== ENCOUNTER 2024-01-01 03:37 | Observation (INO) | payer MEDICAID ==
[2024-01-01 04:03] LABS: BASOPHILS % (AUTO) 0.4 %; EOSINOPHILS # (AUTO) 0.1 10^3/uL (0.0-0.7); EOSINOPHILS % (AUTO) 1.1 %; HCT - HEMATOCRIT 36.2 % (37.0-47.0); HGB - HEMOGLOBIN 11.7 g/dL (12.0-16.0); LYMPHOCYTES # (AUTO) 1.3 10^3/uL (1.5-3.5); LYMPHOCYTES % (AUTO) 15.6 %; MEAN CORPUSCULAR HEMOGLOBIN 33.2 pg (27.0-31.0); MEAN CORPUSCULAR HGB CONC 32.3 g/dL (32.0-36.0); MEAN CORPUSCULAR VOLUME 102.8 fL (81.0-99.0); MEAN PLATELET VOLUME 9.8 fL (7.9-10.8); MONOCYTES # (AUTO) 0.6 10^3/uL (0.0-1.0); MONOCYTES % (AUTO) 7.3 %; NEUTROPHILS % (AUTO) 75.3 %; PLT - PLATELET COUNT 248 10^3/uL (130-450); RED BLOOD COUNT 3.52 10^6/uL (4.20-5.40); RED CELL DISTRIBUTION WIDTH 14.6 % (12.0-15.0)
--- NOTE | 2024-01-01 04:04 | ED Physician Documentation ---
History of Present Illness - Stated complaint Stated Complaint: ABD PX - Chief complaint Chief Complaint: Abd Pain - History obtained from History obtained from: Patient - Additonal information Additional information: 38-year-old woman with history of pancreatitis, gallstones, GERD, presents with midepigastric abdominal pain radiating diffusely to the entire abdomen into the back starting around 2100 tonight/this past evening while eating chicken noodle soup. She has had 4 episodes of nonbloody nonbilious nausea and vomiting. Denies diarrhea, fever, urinary symptoms. Denies surgeries on the belly. PD PAST MEDICAL HISTORY - Past Medical History Past Medical History: Yes Cardiovascular: None Respiratory: None Neuro: Headaches Endocrine/Autoimmune: None GI: GERD, Pancreatitis, Cholelithiasis, Other [employer] WORK[employer]: None : Kidney stones HEENT: None Psych: Depression, Anxiety, Panic attacks, Post traumatic stress disorder Musculoskeletal: None Derm: None Other Past Medical History: Liver Failure - Past Surgical History Past Surgical History: Yes General: EGD, Other /[employer] WORKER: Other HEENT: Tonsil/Adenoidectomy - Present Medications Home Medications: Ambulatory Orders Medication Instructions Recorded Confirmed Escitalopram Oxalate 20 mg PO DAILY 07/07/23 01/01/24 Famotidine [Pepcid] 20 mg PO DAILY 10/07/23 01/01/24 Lipase/Protease/Amylase 1 cap PO TIDWM 10/07/23 01/01/24 [Pancrelipase Dr 5,000/17,000/24,000 Fdc] Lipase/Protease/Amylase [Zenpep Dr 1 cap PO DAILY 01/01/24 01/01/24 10,000 Unit Capsule] - Allergies Allergies/Adverse Reactions: Allergies Allergy/AdvReac Type Severity Reaction Status Date / Time No Known Drug Allergies Allergy Verified 01/01/24 03:49 - Social History Does the pt smoke?: Yes Smoking Status: Current every day smoker Does the pt drink ETOH?: Yes Does the pt have substance abuse?: Yes - Immunizations Immunizations are current?: Yes - POLST Patient has POLST: No POLST Status: Full Code PD ED PE NORMAL - Vitals Vital signs reviewed: Yes - General General: Alert and oriented X 3, Other (Uncomfortable appearing) - HEENT HEENT: Atraumatic, PERRL, EOMI, Moist mucous membranes, Pharynx benign - Neck Neck: Supple, no meningeal sign - Cardiac Cardiac: RRR - Respiratory Respiratory: No respiratory distress, Clear bilaterally - Abdomen Abdomen: Non tender, Non distended, Other (Discomfort epigastric palpation) - Extremities Extremities: No deformity Results - Vitals Vitals: Vital Signs - 24 hr 01/01/24 03:35 Temperature 36.9 C Heart Rate 89 Respiratory 18 Rate Blood Pressure 145/113 H O2 Saturation 100 Oxygen O2 Source Room air - Labs Labs: Laboratory Tests 01/01/24 01/01/24 03:59 03:59 WBC 8.0 RBC 3.52 L Hgb 11.7 L Hct 36.2 L MCV 102.8 H MCH 33.2 H MCHC 32.3 RDW 14.6 Plt Count 248 MPV 9.8 Neut # (Auto) 6.0 Lymph # (Auto) 1.3 L [place] # (Auto) 0.6 Eos # (Auto) 0.1 Baso # (Auto) 0.0 Absolute Nucleated RBC 0.00 Nucleated RBC % 0.0 Sodium 136 Potassium 3.5 Chloride 105 Carbon Dioxide 24 Anion Gap 7.0 BUN 8 Creatinine 0.7 Estimated GFR (MDRD) 94 Glucose 158 H Calcium 8.9 Total Bilirubin 0.6 AST 10 ALT 5 L Alkaline Phosphatase 93 Total Protein 6.4 Albumin 3.2 Globulin 3.2 Albumin/Globulin Ratio 1.0 Lipase 1728 H PD Medical Decision Making - ED course ED course: 38-year-old woman presents with diffuse abdominal discomfort worst in the epigastrium, consistent with possible gallstones, pancreatitis, GERD, or other etiology. Plan to obtain lab work, CT. Provided IV fluids and antinausea and pain meds with improvement in symptoms. CT results show pancreatitis and L kidney subcapsular fluid collection. d/w Dr. Marrero regarding possible subcapsular hematoma to L kidney and he states likely no acute intervention. plan to admit for pancreatitis. d/w Dr. Clancy, telehealth admitting doctor. Departure - Departure Disposition: ED Place in Observation Clinical Impression: Nausea and vomiting, Abdominal pain, Pancreatitis Condition: Stable Instructions: Abdominal Pain Comments: You were seen in the emergency department for medical evaluation. Please follow-up with your primary care provider and return to the emergency department if you have any new or worsening symptoms or other concerns. Forms: PCP List
[2024-01-01] MEDS: HYDROmorphone 1 MG/ML CARPUJECT IVP STA ×2 (04:09→06:05)
[2024-01-01] MEDS: SODIUM CHLORIDE 0.9% 1,000 ML IV STA ×2 (04:09→06:05)
[2024-01-01] MEDS: METOCLOPRAMIDE 10 MG/2 ML VIAL IVP STA (04:09)
[2024-01-01 04:21] LABS: ALBUMIN 3.2 g/dL (3.2-5.5); BILIRUBIN,TOTAL 0.6 mg/dL (0.2-1.0); CALCIUM 8.9 mg/dL (8.5-10.3); CREATININE 0.7 mg/dL (0.6-1.3); POTASSIUM 3.5 mmol/L (3.5-4.5); TOTAL PROTEIN 6.4 g/dL (6.4-8.9)
[2024-01-01] MEDS ORDERED: iohexoL-300 100 ML VIAL ONE (04:26)
[2024-01-01] MEDS: DROPERIDOL 5 MG/2 ML VIAL IVP STA (04:49)
[2024-01-01] MEDS: diphenhydrAMINE INJ 50 MG/ML VIAL IVP STA (04:49)
[2024-01-01] MEDS: iohexoL-300 100 ML VIAL IVP ONE (04:53)
[2024-01-01] MEDS ORDERED: ACETAMINOPHEN 325 MG TABLET PO PRN (06:08)
[2024-01-01 07:00] LABS: BASOPHILS % (AUTO) 0.4 %; EOSINOPHILS % (AUTO) 0.1 %; HCT - HEMATOCRIT 33.1 % (37.0-47.0); HGB - HEMOGLOBIN 10.6 g/dL (12.0-16.0); LYMPHOCYTES # (AUTO) 1.1 10^3/uL (1.5-3.5); LYMPHOCYTES % (AUTO) 13.3 %; MEAN CORPUSCULAR HEMOGLOBIN 33.1 pg (27.0-31.0); MEAN CORPUSCULAR VOLUME 103.4 fL (81.0-99.0); MONOCYTES # (AUTO) 0.6 10^3/uL (0.0-1.0); MONOCYTES % (AUTO) 7.3 %; NEUTROPHILS # (AUTO) 6.4 10^3/uL (1.5-6.6); NEUTROPHILS % (AUTO) 78.7 %; PLT - PLATELET COUNT 207 10^3/uL (130-450); RED CELL DISTRIBUTION WIDTH 14.6 % (12.0-15.0); WHITE BLOOD COUNT 8.1 x10^3/uL (4.8-10.8)
[2024-01-01 07:11] LABS: ALBUMIN/GLOBULIN RATIO 1.1 (1.0-2.2); BILIRUBIN,TOTAL 0.5 mg/dL (0.2-1.0); CALCIUM 7.9 mg/dL (8.5-10.3); CREATININE 0.7 mg/dL (0.6-1.3); MAGNESIUM 1.4 mg/dL (1.7-2.3); TOTAL PROTEIN 5.8 g/dL (6.4-8.9)
[2024-01-01 07:12] LABS: CHOLESTEROL 148 mg/dL; HDL CHOLESTEROL 49 mg/dL; LDL CHOLESTEROL,CALCULATED 80 mg/dL; LDL/HDL RATIO 1.6 (<4.4); TRIGLYCERIDES 94 mg/dL; VLDL CHOLESTEROL 19 mg/dL
[2024-01-01] MEDS: SODIUM CHLORIDE FLUSH 0.9% 10 ML SYRINGE IVP SCH (07:16)
[2024-01-01] MEDS: LACTATED RINGERS 1,000 ML IV SCH (07:16)
[2024-01-01 07:30] LABS: BILIRUBIN,URINE NEGATIVE (NEGATIVE); GLUCOSE, URINE (UA) NEGATIVE (NEGATIVE); HCG UR QUAL NEGATIVE; KETONES,URINE (UA) NEGATIVE (NEGATIVE); LEUKOCYTE ESTERASE, URINE NEGATIVE (NEGATIVE); NITRITE,URINE NEGATIVE (NEGATIVE); OCCULT BLOOD,URINE NEGATIVE (NEGATIVE); PROTEIN,URINE NEGATIVE (NEGATIVE); UROBILINOGEN,URINE 0.2 (NORMAL) E.U./dL (NORMAL)
[2024-01-01 07:32] LABS: CLARITY,URINE CLEAR (CLEAR)
[2024-01-01] MEDS: ONDANSETRON 4 MG/2 ML VIAL IVP PRN (07:54)
[2024-01-01] MEDS: MORPHINE 2 MG/ML CARPUJECT IVP PRN (08:17)
[2024-01-01] MEDS: LIPASE/PROTEASE/AMYLASE CAPSULE PO SCH (08:18)
[2024-01-01] MEDS: PRENATAL VITAMIN TABLET PO SCH (08:19)
[2024-01-01] MEDS: MAGNESIUM SULFATE 2 GRAM 2 GM/50 ML BAG IV ONE (08:19)
--- NOTE | 2024-01-01 08:26 | CONSULTATION NOTE ---
Referring Provider Name of Referring Provider:: Dr Morales Consult Date: 01/01/24 Chief Complaint - Chief Complaint Chief Complaint: left subcapsular fluid collection History of Present Illness - Admitted From Admitted From:: ER - History Obtained From Records Reviewed: ER, [facility] History obtained from: patient Exam Limitations: none - History of Present Illness HPI Comment/Other: Nancy is a 38-year-old woman with history of pancreatitis, gallstones and G ERD along with alcoholic pancreatitis who presented to the hospital last night with nausea and vomiting. Her lab work showed a severely elevated lipase consistent with pancreatitis. She had a CT scan which showed incidentally a left subcapsular fluid collection of her kidney. She states that she has had pain here for a few weeks and it predates her pancreatitis significantly. No significant trauma though she thinks she fell down perhaps a few months ago. No hematuria. I reviewed her CT scan from a few months ago which showed no evidence of angiomyolipoma, vascular abnormality, renal mass that could explain her current issue. She denies any family history of kidney pathologies History - Past Medical History Cardiovascular: reports: None, Other Respiratory: reports: None Neuro: reports: Headaches Endocrine/Autoimmune: reports: None GI: reports: GERD, Pancreatitis, Cholelithiasis, Other SIGNAL PERSON: reports: None : reports: Kidney stones HEENT: reports: None Psych: reports: Depression, Anxiety, Panic attacks, Post traumatic stress disorder Musculoskeletal: reports: None Derm: reports: None MRSA Hx?: No Other Past Medical History: Liver Failure, 2 normal vaginal deliveries, hepatitis but doesnt know the type - Past Surgical History General: reports: EGD, Other /SIGNAL PERSON: reports: Other HEENT: reports: Tonsil/Adenoidectomy - Family & Social History Family History: Mother: Alive and Well Family History Comment/Other: Her mother has history of thyroid disease. Living Situation: With family Social History Notes: She previously drank alcohol on a consistent basis but now denies any use. She smokes a couple cigarettes a day and has been doing so for the past 16 years. She lives with 2 daughters, aged 7 & 10, and with her mother. 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 - Substance History Use: Uses substance without health or social issues: Tobacco - POLST Patient has POLST: No POLST Status: Full Code Meds/Allgy - Home Medications Home Medications: Ambulatory Orders Medication Instructions Recorded Confirmed Escitalopram Oxalate 20 mg PO DAILY 07/07/23 01/01/24 Famotidine [Pepcid] 20 mg PO DAILY 10/07/23 01/01/24 Lipase/Protease/Amylase 1 cap PO TIDWM 10/07/23 01/01/24 [Pan[address]lip[address] Dr 5,000/17,000/24,000 Prison] Lipase/Protease/Amylase [Zenpep Dr 1 cap PO DAILY 01/01/24 01/01/24 10,000 Unit Capsule] - Allergies Allergies/Adverse Reactions: Allergies Allergy/AdvReac Type Severity Reaction Status Date / Time No Known Drug Allergies Allergy Verified 01/01/24 03:49 Exam - Vital Signs Reviewed Vital Signs: Yes Vital Signs: Vital Signs x48h Temp Pulse Pulse Resp BP BP Pulse Ox 01/01/24 07:04 36.6 C 79 16 138/95 H 97 01/01/24 06:37 79 16 129/91 H 99 01/01/24 03:35 36.9 C 89 18 145/113 H 100 - Physical Exam General Appearance: positive: No acute distress (She appears nontoxic at bedside. Occasional pains which she states is abdominal. She does have mild left-sided flank pain.) Abdomen: positive: Other (+CVAT on left) Conclusion and Plan - Lab Results Laboratory Results 01/01/24 07:15: Urine Color YELLOW, Urine Clarity CLEAR, Urine pH 7.0, Ur Specific [place] 1.010, Urine Protein NEGATIVE, Urine Glucose (UA) NEGATIVE, Urine Ketones NEGATIVE, Urine Occult Blood NEGATIVE, Urine Nitrite NEGATIVE, Urine Bilirubin NEGATIVE, Urine Urobilinogen 0.2 (NORMAL), Ur Leukocyte Esterase NEGATIVE, Ur Microscopic Review NOT INDICATED, Urine Culture Comments NOT INDICATED 01/01/24 07:15: Urine HCG, Qual NEGATIVE 01/01/24 06:49: Sodium 135, Potassium 4.0, Chloride 107, Carbon Dioxide 25, Anion Gap 3.0 L, BUN 7, Creatinine 0.7, Estimated GFR (MDRD) 94, Glucose 137 H, Calcium 7.9 L, Magnesium 1.4 L, Total Bilirubin 0.5, AST 8 L, ALT 4 L, Alkaline Phosphatase 92, Total Protein 5.8 L, Albumin 3.0 L, Globulin 2.8, Albumin/Globulin Ratio 1.1, Lipase 1016 H 01/01/24 06:49: WBC 8.1, RBC 3.20 L, Hgb 10.6 L, Hct 33.1 L, MCV 103.4 H, MCH 33.1 H, MCHC 32.0, RDW 14.6, Plt Count 207, MPV 10.0, Neut # (Auto) 6.4, Lymph # (Auto) 1.1 L, [place] # (Auto) 0.6, Eos # (Auto) 0.0, Baso # (Auto) 0.0, Absolute Nucleated RBC 0.00, Nucleated RBC % 0.0 01/01/24 06:49: Triglycerides 94, Cholesterol 148, LDL Cholesterol, Calc 80, VLDL Cholesterol 19, HDL Cholesterol 49 L, LDL/HDL Ratio 1.6, Cholesterol/HDL Ratio 3.0, TSH 3.70 01/01/24 06:15: Ethyl Alcohol < 10.0 01/01/24 03:59: Sodium 136, Potassium 3.5, Chloride 105, Carbon Dioxide 24, Anion Gap 7.0, BUN 8, Creatinine 0.7, Estimated GFR (MDRD) 94, Glucose 158 H, Calcium 8.9, Total Bilirubin 0.6, AST 10, ALT 5 L, Alkaline Phosphatase 93, Total Protein 6.4, Albumin 3.2, Globulin 3.2, Albumin/Globulin Ratio 1.0, Lipase 1728 H 01/01/24 03:59: WBC 8.0, RBC 3.52 L, Hgb 11.7 L, Hct 36.2 L, MCV 102.8 H, MCH 33.2 H, MCHC 32.3, RDW 14.6, Plt Count 248, MPV 9.8, Neut # (Auto) 6.0, Lymph # (Auto) 1.3 L, [place] # (Auto) 0.6, Eos # (Auto) 0.1, Baso # (Auto) 0.0, Absolute Nucleated RBC 0.00, Nucleated RBC % 0.0 - Diagnostic Imaging Results Diagnostic Imaging Results: positive: Read independently - Diagnosis Diagnosis: Left subcapsular fluid collection vs hematoma. Left flank pain - Consultation Note Consultation Note: 38-year-old woman here with pancreatitis and incidentally found left subcapsular fluid collection of her kidney with no inciting trauma. I suspect reflection is at least partially blood. It could be inflammatory in nature. Urinalysis not concerning. I do not suspect infection. Her left flank pain predating her pancreatitis significantly speaks to this may be being a secondary process - Plan Plan: No acute intervention Recommend repeat blood work serially at least once a day. I expect her hemoglobin to drop a little bit over time but will monitor. We do not have an answer as to why this occurred. She should hold blood thinners It is possible she may have a paged kidney in the future and cause hypertension and so she should follow-up with urology in the future. I will follow along
[2024-01-01] MEDS: FAMOTIDINE 20 MG TABLET PO SCH (08:38)
--- NOTE | 2024-01-01 08:38 | HISTORY & PHYSICAL EXAMINATION ---
Chief Complaint - Chief Complaint Chief Complaint: abdominal pain History of Present Illness - Admitted From Admitted From:: patient - History of Present Illness HPI Comment/Other: 38 year old female with PMH of pancreatitis, cholelithiasis, prior alcohol abuse, anxiety presents to the ED with a cc: severe diffuse abdominal pains with associated NBNB emesis that woke her from sleep. She rates the pain as a best re, constant and with some radiation into her back. Denies fevers, chills. States the pain had improved with pain medications given in the ED. Pains similar to prior episodes of pancreatitis in the past. Denies RUQ pains or tenderness. States she does have a history of alcohol abuse in the past but has been abstinent from alcohol for the past month. + tobacco, + occasional marijuana use, denies illicit drug use. Denies chest pains, palpitations, SOB, JIMÉNEZ, cough. Denies headaches, visual changes, hearing loss. + anxiety. 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 Living Situation: With family Social History Notes: She previously drank alcohol on a consistent basis but now denies any use. She smokes a couple cigarettes a day and has been doing so for the past 16 years. She lives with 2 daughters, aged 7 & 10, and with her mother. 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 - Substance History Use: Uses substance without health or social issues: Tobacco - POLST Patient has POLST: No POLST Status: Full Code Meds/Allgy - Home Medications Home Medications: Ambulatory Orders Medication Instructions Recorded Confirmed Escitalopram Oxalate 20 mg PO DAILY 07/07/23 01/01/24 Famotidine [Pepcid] 20 mg PO DAILY 10/07/23 01/01/24 Lipase/Protease/Amylase 1 cap PO TIDWM 10/07/23 01/01/24 [Pancrelipase Dr 5,000/17,000/24,000 Detention] Lipase/Protease/Amylase [Zenpep Dr 1 cap PO DAILY 01/01/24 01/01/24 10,000 Unit Capsule] - Allergies Allergies/Adverse Reactions: Allergies Allergy/AdvReac Type Severity Reaction Status Date / Time No Known Drug Allergies Allergy Verified 01/01/24 03:49 Review of Systems - Eyes Eyes: denies: Blurred vision, Vision loss - Ears, Nose & Throat Ears, Nose & Throat: denies: Hearing loss, Tinnitus - Cardiovascular Cariovascular: denies: Irregular heart rate, Palpitations, Chest pain - Respiratory Respiratory: denies: Cough, Sputum production, Wheezing - Gastrointestinal Gastrointestinal: reports: Abdominal pain, Nausea, Vomiting - Genitourinary Genitourinary: denies: Dysuria - Musculoskeletal Musculoskeletal: reports: Other (L CVA tenderness) - Neurological Neurological: denies: General weakness - Psychiatric Psychiatric: reports: Depression, Anxiety - Endocrine Endocrine: denies: Polyuria - Hematologic/Lymphatic Hematologic/Lymphatic: denies: Anemia, Bruising Exam - Vital Signs Vital Signs: Vital Signs x48h Temp Pulse Pulse Resp BP BP Pulse Ox 01/01/24 07:04 36.6 C 79 16 138/95 H 97 01/01/24 06:37 79 16 129/91 H 99 01/01/24 03:35 36.9 C 89 18 145/113 H 100 - Physical Exam General Appearance: positive: No acute distress, Alert Eyes Bilateral: positive: Normal inspection ENT: positive: ENT inspection nml Neck: positive: Nml inspection Respiratory: positive: Chest non-tender Cardiovascular: positive: Regular rate & rhythm Peripheral Pulses: positive: 2+ Abdomen: positive: Tenderness Back: positive: CVA tenderness (L) Skin: positive: Color nml Extremities: positive: Non-tender Neurologic/Psychiatric: positive: Oriented x3 Conclusion/Plan - Problem List (1) Pancreatitis Conclusion/Plan: Unclear of etiology but most likely related to past history of alcohol abuse. CT consistent with pancreatitis with pseudocyst formation tail of the pancreas and inflammatory changes involving the left Gertoa's fascia. LFT's and bilirubin wnl's, however will obtain abdominal US for better evaluation of possible cholelithiasis and possible CBD dilatation. Continue CLD, increase pains medications and continue antiemetics. On discharge can f/u with GI for possible autoimmune causes, check IgG4. (2) Hematoma of kidney Conclusion/Plan: CT consistent with L subcapsular fluid collection of L kidney. Appreciate input from Urology and most likely due to trauma. No intervention at this time, continue to monitor with daily labs, pain control and f/u with Urology as outpatient. DC lovenox (3) Depression with anxiety Conclusion/Plan: Continue Escitalopram, fu with PCP as outpatient - Lab Results Fish Bones: 01/01/24 06:49 01/01/24 06:49
[2024-01-01] MEDS: THIAMINE 100 MG TABLET PO SCH (08:39)
--- NOTE | 2024-01-01 08:48 | CT Report ---
PROCEDURE: Abdomen/Pelvis W INDICATIONS: abdominal pain CONTRAST: Omni 300, 100mls TECHNIQUE: After the administration of intravenous contrast, a CT scan of the abdomen and pelvis was performed. Images were recorded and evaluated at appropriate window settings. Reformats: coronal and sagittal. F or radiation dose reduction, the following was used: automated exposure control, adjustment of mA and /or kV according to patient size. COMPARISON: 10/27/2023, 10/06/2023 FINDINGS: Image quality: Diagnostic. Lower chest: Unremarkable. Liver: No solid mass. Diffuse fatty liver infiltration can be seen. There is mild hepatomegaly. Gallbladder: Within normal limits. Biliary tree: No intrahepatic or extrahepatic dilation, accounting for age. Spleen: No splenomegaly. Pancreas: There is a pancreatic cyst seen at the tail the pancreas, as on series 2 image 39, measurin g 2.2 cm. An additional 1 cm cyst can be seen, as on series 2 image 33. Generalized inflammatory broderick ge can be seen surrounding the pancreas. These findings are clearly worse compared to the recent CT d ated 10/27/2023. Adrenals: No adrenal nodule. Kidneys and ureters: There is a significant intracapsular fluid collection along the posterior aspect of the left kidney, with mass effect upon the kidney itself. The fluid measures 18 Hounsfield units. Perinephric fat stranding can be seen. There is a minimal delayed nephrogram seen on the left. No le ft-sided hydronephrosis is seen. The right kidney is within normal limits. Stomach, bowel and peritoneum: No gastric or small bowel dilation. No abnormal wall thickening. No pa thologic free fluid. Lymph nodes: No central or retroperitoneal adenopathy. Vessels: No infrarenal aortic aneurysm. Patent portal vein. The splenic vein is narrowed, as seen on series 2 image 39. Hypertrophied splenic veins can be seen. PELVIS Reproductive organs: The uterus demonstrates an unremarkable appearance for age. An IUD is seen at th e expected location. No adnexal masses are seen. Bladder: No abnormal wall thickening, accounting for underdistention. Pelvic lymph nodes: No pelvic adenopathy by size criteria. Bones: No aggressive osseous abnormality. Other: No significant ventral or inguinal hernia. IMPRESSION: Acute pancreatitis, which is worse than on the prior examination. This can be seen involving the tail of the pancreas, which are new compared to the prior. In 4-6 weeks, a fold dedicated pancreas protoc ol CT or MRI would be recommended. There is a significant intracapsular fluid collection along the posterior aspect of the left kidney, with mass effect upon the kidney itself. Perinephric fat stranding is seen. Given the density of this fluid, please consider a subacute hematoma. Thinning of the splenic vein can be seen, with hypertrophied splenic veins. Additional findings: Enlarged, fatty liver IUD Note: No significant discrepancy from the preliminary report. Reviewed by: Nael Dodd MD on 01/01/2024 7:47 AM WIN Approved by: Nael Dodd MD on 01/01/2024 7:47 AM WIN Station ID: [id number]
[2024-01-01] MEDS: HYDROmorphone 0.5 MG/0.5 ML SYRINGE IVP PRN (08:57)
[2024-01-01] MEDS ORDERED: LIPASE PO SCH (09:00)
[2024-01-01] MEDS ORDERED: [UNRECOGNIZED DRUG - OTHER] PO SCH (09:00)
[2024-01-01] MEDS ORDERED: ENOXAPARIN 40 MG/0.4 ML SYRINGE SUBQ SCH (09:00)
[2024-01-01] MEDS ORDERED: PROTEASE PO SCH (09:00)
[2024-01-01] MEDS ORDERED: AMYLASE PO SCH (09:00)
[2024-01-01] MEDS: ESCITALOPRAM 10 MG TABLET PO SCH (10:02)
[2024-01-01 11:12] LABS: ESTIMATED AVERAGE GLUCOSE 114 mg/dL (70-100); HEMOGLOBIN A1c% 5.6 % (4.27-6.07)
--- NOTE | 2024-01-01 11:12 | PHARMACY PROGRESS NOTE ---
- Best Possible Medication History Admit Date and Time: 01/01/24 0608 Processed by: Pharmacy Medication History completed: Yes Patient Interview: Completed Secondary Source(s): Pharmacy records, Insurance records As the person ultimately responsible for medication therapy, providers are able to order a medication from an existing home medication list in [facility] via the "Reconcile Routine" prior to Confirmation of that medication by medical support assistant. Such practice is discouraged except when the physician, in their clinical judgment, deems that a medical need exists for a medication without regard to previous use.
[2024-01-01] MEDS: LORazepam 1 MG TABLET PO PRN (22:34)
[2024-01-02 05:34] LABS: BASOPHILS % (AUTO) 0.6 %; EOSINOPHILS # (AUTO) 0.2 10^3/uL (0.0-0.7); EOSINOPHILS % (AUTO) 4.2 %; HCT - HEMATOCRIT 32.6 % (37.0-47.0); HGB - HEMOGLOBIN 10.9 g/dL (12.0-16.0); LYMPHOCYTES # (AUTO) 1.3 10^3/uL (1.5-3.5); LYMPHOCYTES % (AUTO) 25.8 %; MEAN CORPUSCULAR HEMOGLOBIN 34.8 pg (27.0-31.0); MEAN CORPUSCULAR HGB CONC 33.4 g/dL (32.0-36.0); MEAN CORPUSCULAR VOLUME 104.2 fL (81.0-99.0); MEAN PLATELET VOLUME 10.1 fL (7.9-10.8); MONOCYTES # (AUTO) 0.5 10^3/uL (0.0-1.0); MONOCYTES % (AUTO) 9.3 %; NEUTROPHILS % (AUTO) 59.7 %; PLT - PLATELET COUNT 210 10^3/uL (130-450); RED BLOOD COUNT 3.13 10^6/uL (4.20-5.40)
[2024-01-02 06:12] LABS: ALBUMIN 2.9 g/dL (3.2-5.5); ALBUMIN/GLOBULIN RATIO 1.1 (1.0-2.2); BILIRUBIN,TOTAL 0.7 mg/dL (0.2-1.0); CALCIUM 8.5 mg/dL (8.5-10.3); CREATININE 0.6 mg/dL (0.6-1.3); MAGNESIUM 1.5 mg/dL (1.7-2.3); POTASSIUM 3.8 mmol/L (3.5-4.5); TOTAL PROTEIN 5.5 g/dL (6.4-8.9)
[2024-01-02] MEDS: oxyCODONE 5 MG TABLET PO PRN (09:17)
--- NOTE | 2024-01-02 11:15 | PROVIDER PROGRESS NOTE ---
Subjective - Prog Note Date Prog Note Date: 01/02/24 Prog Note Time: 11:13 - Subjective Pt reports feeling: Improved Subjective: The pt reports that her Abd is getting better but it is still 7/10. she is on clear liquid diet but her PO intake is not that good. Morphine doesn't work but dilaudid works for her pain. No acute overnight events. No other related symptoms. No other modifying factors. Objective - Vital Signs/Intake & Output Reviewed Vital Signs: Yes Vital Signs: Vital Signs x48h Temp Pulse Resp BP Pulse Ox 01/02/24 07:45 36.7 C 89 16 120/85 H 97 01/02/24 04:51 36.8 C 76 18 113/85 H 96 Intake & Output: Intake & Output 12/30/23 12/31/23 01/01/24 01/02/24 23:59 23:59 23:59 23:59 Intake Total 4335 1368.333 Output Total 1325 1150 Balance 3010 218.333 - Objective General Appearance: positive: No acute distress, Alert Eyes Bilateral: positive: Normal inspection, PERRL, EOMI Neck: positive: Nml inspection, No JVD, Trachea midline Respiratory: positive: Chest non-tender, No respiratory distress, Breath sounds nml Cardiovascular: positive: Regular rate & rhythm, No murmur Abdomen: positive: Nml bowel sounds, No distention, Tenderness (Tedner to palpation at epigastric area.) Skin: positive: Color nml, No rash, Warm, Dry Extremities: positive: Non-tender, Full ROM, Nml appearance Neurologic/Psychiatric: positive: Oriented x3 - Lab Results Fish Bones: 01/02/24 05:12 01/02/24 05:12 Other Labs: Lab Results x24hrs 01/02/24 01/02/24 01/01/24 Range/Units 05:12 05:12 06:49 WBC 5.0 (4.8-10.8) x10^3/uL RBC 3.13 L (4.20-5.40) 10^6/uL Hgb 10.9 L (12.0-16.0) g/dL Hct 32.6 L (37.0-47.0) % MCV 104.2 H (81.0-99.0) fL MCH 34.8 H (27.0-31.0) pg MCHC 33.4 (32.0-36.0) g/dL RDW 15.0 (12.0-15.0) % Plt Count 210 (130-450) 10^3/uL MPV 10.1 (7.9-10.8) fL Neut # (Auto) 3.0 (1.5-6.6) 10^3/uL Lymph # (Auto) 1.3 L (1.5-3.5) 10^3/uL [place] # (Auto) 0.5 (0.0-1.0) 10^3/uL Eos # (Auto) 0.2 (0.0-0.7) 10^3/uL Baso # (Auto) 0.0 (0.0-0.1) 10^3/uL Absolute Nucleated RBC 0.00 x10^3/uL Nucleated RBC % 0.0 /100WBC Sodium 134 L (135-145) mmol/L Potassium 3.8 (3.5-4.5) mmol/L Chloride 103 (101-111) mmol/L Carbon Dioxide 28 (21-32) mmol/L Anion Gap 3.0 L (6-13) BUN 4 L (6-20) mg/dL Creatinine 0.6 (0.6-1.3) mg/dL Estimated GFR (MDRD) 112 (>89) Glucose 123 H (74-104) mg/dL Estimat Average Glucose 114 H (70-100) mg/dL Hemoglobin A1c % 5.6 (4.27-6.07) % Calcium 8.5 (8.5-10.3) mg/dL Magnesium 1.5 L (1.7-2.3) mg/dL Total Bilirubin 0.7 (0.2-1.0) mg/dL AST 9 L (10-42) IU/L ALT 4 L (10-60) IU/L Alkaline Phosphatase 85 (42-121) IU/L Total Protein 5.5 L (6.4-8.9) g/dL Albumin 2.9 L (3.2-5.5) g/dL Globulin 2.6 (2.1-4.2) g/dL Albumin/Globulin Ratio 1.1 (1.0-2.2) Lipase 259 H (11-82) U/L ABX Reporting Has patient been on IV antibiotics over the past 48 hours?: No Assessment/Plan - Problem List (1) Acute on chronic pancreatitis Impression: Improving but pain is till high. Added toradol and discontinued morphine since the pt says toradol works better. Lipase is down to 250's. Will check lipase in am. (2) Hyponatremia Impression: Mild. Repeat BMP in am since she is receiving IVF. (3) Hematoma of kidney Impression: Repeat CBC in am. Pain control and f/u with Urology as outpatient.
[2024-01-02] MEDS: HYDROmorphone 1 MG/ML CARPUJECT IVP PRN (11:39)
[2024-01-02] MEDS: KETOROLAC 15 MG/ML VIAL IVP PRN (12:18)
[2024-01-02] MEDS: SODIUM CHLORIDE FLUSH 0.9% 10 ML SYRINGE IVP PRN (22:42)
[2024-01-03 05:30] LABS: HCT - HEMATOCRIT 32.9 % (37.0-47.0); HGB - HEMOGLOBIN 10.3 g/dL (12.0-16.0); MEAN CORPUSCULAR HEMOGLOBIN 33.4 pg (27.0-31.0); MEAN CORPUSCULAR HGB CONC 31.3 g/dL (32.0-36.0); MEAN CORPUSCULAR VOLUME 106.8 fL (81.0-99.0); MEAN PLATELET VOLUME 10.3 fL (7.9-10.8); RED BLOOD COUNT 3.08 10^6/uL (4.20-5.40); RED CELL DISTRIBUTION WIDTH 14.8 % (12.0-15.0); WHITE BLOOD COUNT 4.5 x10^3/uL (4.8-10.8)
[2024-01-03 06:14] LABS: CALCIUM 8.5 mg/dL (8.5-10.3); CREATININE 0.6 mg/dL (0.6-1.3); POTASSIUM 3.8 mmol/L (3.5-4.5)
--- NOTE | 2024-01-03 08:11 | Discharge Plan ---
Discharge Plan Problem Reviewed?: Yes Disposition: Home, Self Care Condition: Stable Prescriptions: oxyCODONE [Roxicodone] 10 mg PO BID #20 tab Diet: Regular Activity Restrictions: No Restrictions Instruction Topics: Abdominal Pain Additional Instructions or Follow Up instructions: Stay on full liquid diet for the next 2-3 days and then advance diet as tolerated. Follow up with PCP as scheduled. No Smoking: If you smoke, Please STOP! Call for help. Follow-up with: Sylwia Leblanc ARNP [Credentialed Staff Provider] -
--- NOTE | 2024-01-03 08:18 | DISCHARGE SUMMARY ---
Discharge Summary Admit Date: 01/01/24 Discharge Date: 01/03/24 Discharging Provider: Rojelio Preciado Primary Care Provider: Agnes Leblanc ARNP Code Status: Attempt Resuscitation Condition at Discharge: Good Discharge Disposition: 01 Home, Self Care - DIAGNOSES Admission Diagnoses: Acute on chronic pancreatitis Discharge Diagnoses with Status of Each Condition: Acute on chronic pancreatitis: Improved. - HPI History of Present Illness: Per Dr. Morales, "38 year old female with PMH of pancreatitis, cholelithiasis, prior alcohol abuse, anxiety presents to the ED with a cc: severe diffuse abdominal pains with associated NBNB emesis that woke her from sleep. She rates the pain as a severe, constant and with some radiation into her back. Denies fevers, chills. States the pain had improved with pain medications given in the ED. Pains similar to prior episodes of pancreatitis in the past. Denies RUQ pains or tenderness. States she does have a history of alcohol abuse in the past but has been abstinent from alcohol for the past month. + tobacco, + occasional marijuana use, denies illicit drug use. Denies chest pains, palpitations, SOB, JIMÉNEZ, cough. Denies headaches, visual changes, hearing loss. + anxiety." - CONSULTS | PROCEDURES Consultations: None - HOSPITAL COURSE Hospital Course: Upon admission she was placed on clears and she received IV pain meds. Her lipase came down to normal this morning and she has been tolerating her full liquid diet. Upon discharge she will continue with full liquid diet for the next 2-3 days and then advance her diet as tolerated. She has an appointment with her PCP on 01/12 so I am sending her out with oxycodone 10mg BID PRN 20 tabs. - ALLERGIES Allergies/Adverse Reactions: Allergies Allergy/AdvReac Type Severity Reaction Status Date / Time No Known Drug Allergies Allergy Verified 01/01/24 03:49 - MEDICATIONS Home Medications: Ambulatory Orders Medication Instructions Recorded Confirmed Escitalopram Oxalate 20 mg PO DAILY 07/07/23 01/01/24 Famotidine [Pepcid] 20 mg PO DAILY 10/07/23 01/01/24 Lipase/Protease/Amylase 1 cap PO TIDWM 10/07/23 01/01/24 [Pancrelipase Dr 5,000/17,000/24,000 Prison] oxyCODONE [Roxicodone] 10 mg PO BID #20 tab 01/03/24 - PHYSICAL EXAM AT DISCHARGE General Appearance: positive: No acute distress, Alert Eyes Bilateral: positive: Normal inspection, EOMI Respiratory: positive: Chest non-tender, No respiratory distress, Breath sounds nml Cardiovascular: positive: Regular rate & rhythm Abdomen: positive: Other (Mildly tender to palpation at epigastric area) - LABS Result Diagrams: 01/03/24 04:49 01/03/24 04:49 - DIAGNOSTIC IMAGING Diagnostic Imaging Results: Final report reviewed - FOLLOW UP Follow Up: PCP as scheduled on 01/12 - TIME SPENT Time Spent in Discharge (Minutes): 40
[2024-01-03 08:53] VITALS: O2SAT 95
[2024-01-03 10:44] VITALS: BP 140/103
--- NOTE | 2024-01-06 09:30 | Ultrasound Report ---
PROCEDURE: Abdomen Complete INDICATIONS: pancreatitis, evalution of kidneys TECHNIQUE: Real-time scanning was performed of the abdominal and retroperitoneal organs, with image documentatio n. COMPARISON: CT abdomen pelvis dated 01/01/2024. FINDINGS: Liver: The liver is slightly enlarged at 22.3 cm. Increased diffuse echogenicity may represent a fat ty liver. Small amount of free fluid seen around the right lobe of the liver. Gallbladder: No gallstones, sludge, wall thickening or pericholecystic edema. Biliary ducts: Intrahepatic bile ducts are non-dilated. Extrahepatic bile duct caliber measures 2.3 mm. Normal is 6-7 mm or less in diameter, or 10 mm or less post-cholecystectomy. Pancreas: The pancreas is not well visualized as expected on ultrasound Spleen: Spleen is normal in size and homogeneous in echotexture. Spleen measures 12.5 cm in length. Estimated splenic volume: 253 cc. Kidneys: Kidneys are normal in size and echotexture. Right kidney measures 10.4 cm long; left kidne y measures 12.1 cm long. No hydronephrosis or nephrolithiasis. No solid masses. No complex renal cy stic lesions which require follow-up. A small amount of fluid is again seen around the left kidney. Aorta: Visualized aorta is normal in caliber at less than 3 cm. Nonvisualized mid, distal aorta due to bowel gas Iliacs: Not visualized due to bowel gas IVC: Intrahepatic inferior vena cava is patent. Miscellaneous: Small amount of ascites as noted above IMPRESSION: 1. Enlarged fatty liver 2. Small amount of fluid around the liver and left kidney 3. Pancreas not well visualized Reviewed by: Denis Aparicio MD on 01/06/2024 9:29 AM PDT Approved by: Denis Aparicio MD on 01/06/2024 9:29 AM PDT Station ID: [id number]
== END 2024-01-03 11:33 | disposition home or self-care (01) ==
LOC: EDUNIT# → ED 03:37 → MS2 06:08
PROVIDERS: ADMIT Internal Medicine; ATTEND Internal Medicine
DX: K85.90 Acute pancreatitis without necrosis or infection, unspecified (principal); K86.1 Other chronic pancreatitis; S37.012A Minor contusion of left kidney, initial encounter; X58.XXXA Exposure to other specified factors, initial encounter; F41.8 Other specified anxiety disorders; D53.9 Nutritional anemia, unspecified; F17.210 Nicotine dependence, cigarettes, uncomplicated; K21.9 Gastro-esophageal reflux disease without esophagitis; F43.10 Post-traumatic stress disorder, unspecified; E87.1 Hypo-osmolality and hyponatremia
CPT/HCPCS: 36415; 74177; 76700; 80048; 80053; 80061; 81003; 81025; 82077; 82607; 82746; 83036; 83690; 83735; 84443; 85025; 85027; 96365; 96375; 96376; 99284; 99285; A9270; G0378; J1170; J1200; J2765; J7120; J8499; Q9967; 81001; 83721; 87086

== ENCOUNTER 2024-02-13 09:33 | Outpatient (CLI) | payer MEDICAID | END 2024-02-13 09:34 | disposition critical access hospital (66) | LOC: EMS 09:33 | DX: R10.13 Epigastric pain (principal); R11.2 Nausea with vomiting, unspecified; R20.2 Paresthesia of skin | CPT/HCPCS: A0425; A0427; A0999 ==

== ENCOUNTER 2024-02-13 09:58 | Emergency (ER) | payer MEDICAID ==
[2024-02-13 10:32] LABS: BASOPHILS % (AUTO) 0.2 %; HCT - HEMATOCRIT 39.3 % (37.0-47.0); LYMPHOCYTES # (AUTO) 0.7 10^3/uL (1.5-3.5); LYMPHOCYTES % (AUTO) 8.7 %; MEAN CORPUSCULAR HEMOGLOBIN 32.8 pg (27.0-31.0); MEAN CORPUSCULAR HGB CONC 33.1 g/dL (32.0-36.0); MEAN CORPUSCULAR VOLUME 99.2 fL (81.0-99.0); MEAN PLATELET VOLUME 10.4 fL (7.9-10.8); MONOCYTES # (AUTO) 0.5 10^3/uL (0.0-1.0); MONOCYTES % (AUTO) 5.9 %; PLT - PLATELET COUNT 211 10^3/uL (130-450); RED BLOOD COUNT 3.96 10^6/uL (4.20-5.40); RED CELL DISTRIBUTION WIDTH 12.8 % (12.0-15.0); WHITE BLOOD COUNT 8.3 x10^3/uL (4.8-10.8)
--- NOTE | 2024-02-13 10:39 | ED Physician Documentation ---
PD HPI ABD PAIN - Stated complaint Stated Complaint: ABD PX - Chief complaint Chief Complaint: Abd Pain - History obtained from History obtained from: Patient - History of Present Illness Timing - onset: Last night Timing - duration: Days (1) Timing - details: Abrupt onset Pain level max: 9 Pain level now: 7 Quality: Aching, Pain Location: Other (Patient has generalized abdominal pain but worse in the epigastric region) Improved by: Vomiting Worsened by: Eating Associated symptoms: Nausea, Vomiting. No: Fever, Hematemesis, Diarrhea, Constipation, Melena, Hematochezia, Dysuria, Hematuria, Chest pain, Dizzy Similar symptoms before: Diagnosis (Recurrent pancreatitis) - Additional information Additional information: Patient is a 38-year-old female who presents to the emergency department generalized abdominal pain and vomiting. States started last night and has continued this morning. 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 States that she has not drink any alcohol. She states that she did drink "punch" last night that someone gave her. She states that her pain is not as sharp as her usual pancreatitis pain. Nothing seems to make it better or worse. Was given fentanyl by EMS. 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: Other HEENT: Tonsil/Adenoidectomy - Present Medications Home Medications: Ambulatory Orders Medication Instructions Recorded Confirmed Escitalopram Oxalate 20 mg PO DAILY 07/07/23 01/01/24 Famotidine [Pepcid] 20 mg PO DAILY 10/07/23 01/01/24 Lipase/Protease/Amylase 1 cap PO TIDWM 10/07/23 01/01/24 [[address] Dr 5,000/17,000/24,000 Fdc] oxyCODONE [Roxicodone] 10 mg PO BID #20 tab 01/03/24 Ondansetron Odt [Zofran] 4 mg TL Q6H PRN #10 tablet 02/13/24 Promethazine [Phenergan] 25 mg PO Q6H PRN #10 tab 02/13/24 oxyCODONE [Roxicodone] 5 - 10 mg PO Q6H PRN #14 tablet 02/13/24 MDD 6 - Allergies Allergies/Adverse Reactions: Allergies Allergy/AdvReac Type Severity Reaction Status Date / Time No Known Drug Allergies Allergy Verified 02/13/24 10:02 - Social History Does the pt smoke?: Yes Smoking Status: Current every day smoker Does the pt drink ETOH?: Yes Does the pt have substance abuse?: Yes - Immunizations Immunizations are current?: Yes - POLST Patient has POLST: No POLST Status: Full Code PD ED PE NORMAL - Vitals Vital signs reviewed: Yes - General General: Alert and oriented X 3, No acute distress - HEENT HEENT: PERRL, Moist mucous membranes - Neck Neck: Supple, no meningeal sign - Cardiac Cardiac: RRR, Strong equal pulses - Respiratory Respiratory: No respiratory distress, Clear bilaterally - Abdomen Abdomen: Soft, Non distended, Other (Mild diffuse tenderness palpation. No per itoneal signs) - Back Back: No CVA TTP, No spinal TTP - Derm Derm: Warm and dry - Extremities Extremities: No edema, No calf tenderness / cord - Neuro Neuro: Alert and oriented X 3 - Psych Psych: Normal mood, Normal affect Results - Vitals Vitals: Vital Signs - 24 hr 02/13/24 02/13/24 02/13/24 10:02 12:20 14:00 Temperature 36.5 C Heart Rate 122 H 107 H 100 Respiratory 22 18 Rate Blood Pressure 131/91 H 144/102 H 135/118 H O2 Saturation 98 99 98 02/13/24 02/13/24 14:59 15:49 Temperature 36.5 C Heart Rate 83 77 Respiratory 15 16 Rate Blood Pressure 119/74 129/88 H O2 Saturation 96 99 Oxygen O2 Source Room air - Labs Labs: Laboratory Tests 02/13/24 02/13/24 02/13/24 10:27 10:27 11:33 WBC 8.3 RBC 3.96 L Hgb 13.0 Hct 39.3 MCV 99.2 H MCH 32.8 H MCHC 33.1 RDW 12.8 Plt Count 211 MPV 10.4 Neut # (Auto) 7.0 H Lymph # (Auto) 0.7 L [place] # (Auto) 0.5 Eos # (Auto) 0.0 Baso # (Auto) 0.0 Absolute Nucleated RBC 0.00 Nucleated RBC % 0.0 Sodium 135 Potassium 3.4 L Chloride 99 L Carbon Dioxide 18 L Anion Gap 18.0 H BUN 8 Creatinine 0.9 Estimated GFR (MDRD) 70 L Glucose 112 H Calcium 8.8 Total Bilirubin 1.2 H AST 29 ALT 13 Alkaline Phosphatase 107 Total Protein 6.8 Albumin 3.7 Globulin 3.1 Albumin/Globulin Ratio 1.2 Lipase 14 Urine Color DARK YELLOW Urine Clarity CLEAR Urine pH 6.5 Ur Specific [place] >=1.030 H Urine Protein 30 H Urine Glucose (UA) NEGATIVE Urine Ketones 40 H Urine Occult Blood NEGATIVE Urine Nitrite POSITIVE H Urine Bilirubin MODERATE H Urine Urobilinogen 1 (NORMAL) Ur Leukocyte Esterase NEGATIVE Urine RBC 0-5 Urine WBC 4-5 Ur Squamous Epith Cells MANY Squamous H Urine Bacteria Many H Urine Mucus Marked Strands Ur Microscopic Review INDICATED Urine Culture Comments NOT INDICATED Urine HCG, Qual NEGATIVE - Rads (name of study) CT abdomen pelvis Relevant Findings:: Final report received, See rad report PD Medical Decision Making - ED course Complexity details: reviewed results, re-evaluated patient, considered differential, d/w patient ED course: No acute findings on CT abdomen pelvis, her prior episode of pancreatitis appears to be improving. She does have what appears to be a cyst around the left kidney, likely pseudocyst secondary to her pancreatitis. She has a follow- up already scheduled with urology for this. She is not having significant pain at this site. No acute kidney failure. No fevers. No chills. Not having urinary symptoms. Pain is well-controlled after IV Dilaudid, Toradol, droperidol. Tolerating p.o. without difficulty. She also fell 2 days ago injuring the left knee when she tripped over her dog. She did have some mild tenderness over the tibial plateau so an x-ray was performed. This does not show any acute abnormalities. Ambulating without difficulty. Will prescribe pain medication nausea medication for home. Will have her follow-up with urology for the cyst. Patient counseled regarding signs and symptoms for which I believe and urgent re-evaluation would be necessary. Patient with good understanding of and agreement to plan and is comfortable going home at this time This document was made in part using voice recognition software. While efforts are made to proofread this document, sound alike and grammatical errors may occur. Departure - Departure Disposition: 01 Home, Self Care Clinical Impression: Abdominal pain Qualifiers: Abdominal location: unspecified location Qualified Code(s): R10.9 - Unspecified abdominal pain Nausea and vomiting Qualifiers: Vomiting type: unspecified Qualified Code(s): R11.2 - Nausea with vomiting, unspecified Condition: Good Instructions: ED Abdominal Pain Female Non-Specific Abdominal Pain Follow-Up: Sylwia Leblanc ARNP [Primary Care Provider] - Dimas Marrero MD [Provider Admit Priv/Credential] - Prescriptions: Promethazine [Phenergan] 25 mg PO Q6H PRN #10 tab PRN Reason: Nausea / Vomiting oxyCODONE [Roxicodone] 5 - 10 mg PO Q6H PRN #14 tablet MDD 6 PRN Reason: pain Ondansetron Odt [Zofran] 4 mg TL Q6H PRN #10 tablet PRN Reason: Nausea / Vomiting Comments: Your prescriptions were sent to [facility] in [place]. Please the medications as needed for pain, nausea and vomiting. Please follow-up with your doctor for further care. You still have the cyst around your left kidney, this is important to follow-up closely with Dr. Marrero for this. Please return if you worsen. I am prescribing a short course of narcotic pain medication for you. These are potentially dangerous and addictive medications that should be used carefully. These medications may constipate you. Take an dfsy-kew-femymnw stool softener (docusate) twice daily with plenty of water while taking these medications. If you go 24 hours without a bowel movement, take [id number]-[id number] miralax, per package instructions. Do not drink or drive while taking these medications. If you received narcotic or sedating medications while in the emergency department, do not drive for 24 hours. Store this medication in a safe, secure place and out of reach of children. It is a violation of federal law to give or sell this medication to another person or to use in a manner other than prescribed. The ED will not refill narcotic prescriptions, including prescriptions lost or stolen. To dispose of unwanted medications: 1. [facility] at [address] in [place] has a medication drop box. They accept prescription medications (in pill form) Friday through Friday 9:00 a.m. to 5:00 p.m. 2. The [facility] accepts prescription medications (in pill form only) for disposal year round. Call for more information. 3. Contact the [facility] for the next [facility] sponsored prescription drug collection event. , [phone], or x [phone]; Forms: PCP List Discharge Date/Time: 02/13/24 15:49
[2024-02-13 10:52] LABS: ALBUMIN 3.7 g/dL (3.2-5.5); ALBUMIN/GLOBULIN RATIO 1.2 (1.0-2.2); BILIRUBIN,TOTAL 1.2 mg/dL (0.2-1.0); CALCIUM 8.8 mg/dL (8.5-10.3); CREATININE 0.9 mg/dL (0.6-1.3); POTASSIUM 3.4 mmol/L (3.5-4.5); TOTAL PROTEIN 6.8 g/dL (6.4-8.9)
[2024-02-13] MEDS ORDERED: iohexoL-300 100 ML VIAL ONE (11:22)
[2024-02-13 11:41] LABS: BILIRUBIN,URINE MODERATE (NEGATIVE); CLARITY,URINE CLEAR (CLEAR); GLUCOSE, URINE (UA) NEGATIVE (NEGATIVE); HCG UR QUAL NEGATIVE; KETONES,URINE (UA) 40 mg/dL (NEGATIVE); LEUKOCYTE ESTERASE, URINE NEGATIVE (NEGATIVE); NITRITE,URINE POSITIVE (NEGATIVE); OCCULT BLOOD,URINE NEGATIVE (NEGATIVE); PH,URINE 6.5 PH (5.0-7.5); PROTEIN,URINE 30 mg/dL (NEGATIVE); UROBILINOGEN,URINE 1 (NORMAL) E.U./dL (NORMAL)
[2024-02-13 12:06] LABS: BACTERIA,URINE Many /HPF (None Seen); MUCUS,URINE Marked Strands; RBC,URINE 0-5 /HPF (0-5); SQUAMOUS EPITHELIAL CELL,UR MANY Squamous (<= Few)
[2024-02-13] MEDS: HYDROmorphone 1 MG/ML CARPUJECT IVP STA ×2 (12:15→13:21)
--- NOTE | 2024-02-13 12:17 | CT Report ---
PROCEDURE: Abdomen/Pelvis W INDICATIONS: Abdominal pain, acute, nonlocalized CONTRAST: See chart TECHNIQUE: After the administration of intravenous contrast, a CT scan of the abdomen and pelvis was performed. Images were recorded and evaluated at appropriate window settings. Reformats: coronal and sagittal. F or radiation dose reduction, the following was used: automated exposure control, adjustment of mA and /or kV according to patient size. COMPARISON: 01/01/2024. FINDINGS: Image quality: Diagnostic. Lower chest: Unremarkable. Liver: No solid mass. Mild to moderate diffuse hepatic steatosis, progressed compared to the previous study. No splenomegaly.. Gallbladder: No radiopaque stones or wall thickening. Biliary tree: No intrahepatic or extrahepatic dilation, accounting for age. Spleen: No splenomegaly. Pancreas: The extensive edematous change in the pancreas and peripancreatic inflammation has largely resolved. However, a pancreatic tail pseudocyst has developed measuring 3.3 x 1.6 cm. There is mild p rominence in the uncinate process which may represent mild changes of acute pancreatitis. There are s mall calcifications there indicating that chronic changes of pancreatitis are also noted.. Adrenals: No adrenal nodule. Kidneys and ureters: Marked abnormal appearance of left kidney again noted, with subcapsular fluid bonner ving increased since the previous study of 01/01/2024. On previous coronal image 101 of series 4 the s ubcapsular fluid measuring approximately 10.4 x 4.3 cm. It now measures approximately 13.4 x 5.5 cm o n current coronal image 85. Additionally, subcapsular fluid has now developed anterior to the kidney parenchyma. Reference current axial image 44 of series 2. This is adjacent to a pancreatic tail pseud ocyst which, on image 48, measures 3.3 x 1.6 cm. Left renal parenchyma continues to enhance without a noticeable delayed nephrogram. Stomach, bowel and peritoneum: No gastric or small bowel dilation. No abnormal wall thickening. No pa thologic free fluid. Normal appendix. Lymph nodes: No central or retroperitoneal adenopathy. Vessels: No infrarenal aortic aneurysm. Patent portal vein. PELVIS Reproductive organs: IUD. Cystic adnexa.. Bladder: No abnormal wall thickening, accounting for underdistention. Pelvic lymph nodes: No pelvic adenopathy by size criteria. Bones: No aggressive osseous abnormality. Other: No significant ventral or inguinal hernia. IMPRESSION: 1. Most of the acute inflammatory change involving the pancreas has resolved. There may still be some acute changes in the uncinate process, where there is also evidence of chronic pancreatitis. 2. Development of a pancreatic tail pseudocyst. 3. Continued marked abnormal appearance of the left kidney, with increasing subcapsular collections. Consider pseudocyst formation involving the kidney secondary to pancreatitis. 4. Interval progression of diffuse hepatic steatosis. Reviewed by: Humble Barrios MD on 02/13/2024 12:15 PM PDT Approved by: Humble Barrios MD on 02/13/2024 12:15 PM PDT Station ID: [id number]
[2024-02-13] MEDS: ONDANSETRON 4 MG/2 ML VIAL IVP STA (12:42)
[2024-02-13] MEDS: DROPERIDOL 5 MG/2 ML VIAL IVP STA (14:14)
[2024-02-13] MEDS: KETOROLAC 30 MG/ML VIAL IVP STA (14:14)
--- NOTE | 2024-02-13 14:31 | XRAY Report ---
PROCEDURE: Knee 3V LT INDICATIONS: fall, knee pain TECHNIQUE: 3 views of the knee(s) were acquired. COMPARISON: 07/07/2023 FINDINGS: Bones: No acute displaced fracture. Small bone fragment adjacent to the proximal tibia on lateral vie w is stable. No dislocation. Soft tissues: No suspicious calcifications elsewhere. No significant effusion. IMPRESSION: No acute radiographic abnormality. If there is high concern for further derangement, consider MRI sangita luation. Reviewed by: Lito Berumen MD on 02/13/2024 2:29 PM PDT Approved by: Lito Berumen MD on 02/13/2024 2:29 PM PDT Station ID: [id number]
[2024-02-13] MEDS: iohexoL-300 100 ML VIAL IVP ONE (14:51)
[2024-02-13 15:51] VITALS: BP 129/88; O2SAT 99
== END 2024-02-13 15:49 | disposition home or self-care (01) ==
LOC: EDUNIT# → ED 09:58
DX: R10.9 Unspecified abdominal pain (principal); R11.2 Nausea with vomiting, unspecified; M25.562 Pain in left knee; W18.09XA Striking against other object with subsequent fall, initial encounter; N28.1 Cyst of kidney, acquired; F17.200 Nicotine dependence, unspecified, uncomplicated
CPT/HCPCS: 36415; 73562; 74177; 80053; 81001; 81025; 83690; 85025; 96374; 96375; 96376; 99283; 99284; J1170; Q9967; 81003; 87086

== ENCOUNTER 2024-08-30 14:52 | Inpatient (IN) ==
--- NOTE | 2024-08-30 17:57 | ED Physician Documentation ---
History of Present Illness Stated complaint Stated Complaint: BACK,ABD PX,CALF PX Chief complaint Chief Complaint: Abd Pain History obtained from History obtained from: Patient and Family Additonal information Additional information: Patient is a 38-year-old female who presents to the emergency room with epigastric abdominal pain. History of recurrent pancreatitis. States her last drink of alcohol was a couple of weeks ago when she accidentally had some of her friends drink. She has been seen here several times recently for flank pain. She states her flank is not hurting today that it is epigastric and it radiates down into her abdomen. Worse with eating and drinking. Has had nausea and vomiting. She states that she had oxycodone, tried to take this at home but it did not help with pain. Review of Systems Constitutional Denies: Fever or Chills Cardiovascular Denies: chest pain Respiratory Denies: Cough Meds/Allgy Home Medications Ambulatory Orders Medication Instructions Recorded Confirmed escitalopram oxalate 20 mg tablet 20 mg PO DAILY 07/07/23 01/01/24 famotidine 20 mg tablet 20 mg PO DAILY 10/07/23 01/01/24 usczcv-sozxkojm-irmumzo 1 cap PO TIDWM 10/07/23 01/01/24 5,000-17,000-24,000 unit capsule, delayed rel (Zenpep) oxycodone 5 mg tablet 10 mg (2 x 5 mg) PO BID #20 tabs 01/03/24 ondansetron 4 mg disintegrating 4 mg translingual Q6H PRN Nausea / 02/13/24 tablet Vomiting #10 tabs oxycodone 5 mg tablet 5 - 10 mg (1 - 2 x 5 mg) PO Q6H 02/13/24 PRN pain #14 tabs promethazine 25 mg tablet 25 mg PO Q6H PRN Nausea / Vomiting 02/13/24 #10 tabs docusate sodium 100 mg capsule 100 mg PO BID #14 caps 07/28/24 hydrocodone 5 mg-acetaminophen 325 1 tab PO Q6H PRN pain #14 tabs 07/28/24 mg tablet meloxicam 7.5 mg tablet 7.5 mg PO BID #14 tabs 07/28/24 ondansetron HCl 4 mg tablet 4 mg PO Q8H PRN nausea and 07/28/24 vomiting #10 tabs hydrocodone 7.5 mg-acetaminophen 1 tab PO QID PRN pain #14 tabs 08/14/24 325 mg tablet hyoscyamine sulfate 0.125 mg 0.125 mg PO QID PRN abd pain #20 08/14/24 tablet (Levsin) tabs ondansetron HCl 4 mg tablet 4 mg PO Q8H PRN nausea and 08/14/24 vomiting #14 tabs oxycodone 5 mg tablet 5 mg PO QID PRN pain #14 tabs 08/22/24 promethazine 25 mg tablet 25 mg PO TID PRN nausea and 08/22/24 vomiting #14 tabs Allergies Allergies Allergy/AdvReac Type Severity Reaction Status Date / Time No Known Drug Allergies Allergy Verified 08/30/24 14:56 PFSH Active Problems All Active Problems (Updated 08/30/24 @ 19:17 by Al Kinney MD) Left lower quadrant abdominal pain (Acute) Nausea (Acute) Kidney cysts (Acute) Acute left flank pain (Acute) Abdominal pain (Acute) Right lateral abdominal pain (Acute) Right lateral abdominal pain (Acute) Renal cyst (Acute) Abdominal pain, acute, left lower quadrant (Acute) Hematoma of kidney (Acute) Disorder of electrolytes (Acute) Alcohol withdrawal (Acute) Bilirubinemia (Acute) Hypomagnesemia (Acute) RAY (acute kidney injury) (Acute) UTI (urinary tract infection) (Acute) Pancreatitis (Acute) Hyponatremia (Acute) Elevated liver enzymes (Acute) Diarrhea due to malabsorption (Acute) Chronic pancreatitis due to acute alcohol intoxication (Acute) Acute on chronic pancreatitis (Acute) Anxiety about health (Acute) Abdominal pain (Acute) Gastritis (Acute) Depression with anxiety (Acute) Hepatitis (Acute) Hepatic infarction (Acute) Acetaminophen poisoning (Acute) Pancytopenia (Acute) Protein S deficiency (Acute) Intractable abdominal pain (Acute) Vomiting (Acute) Pancreatic pseudocyst/cyst (Chronic) Intractable nausea and vomiting (Acute) History of alcohol abuse (Acute) Recurrent pancreatitis (Acute) Flank pain (Acute) Hypokalemia (Acute) Nausea and vomiting (Acute) Pancreatic pseudocyst (Chronic) Alcohol abuse (Chronic) GERD (gastroesophageal reflux disease) (Chronic) Tobacco abuse (Chronic) Social History Social History (Updated 07/28/24 @ 09:02 by Roland Cooper RN) Smoking Status: Current every day smoker If you are a former smoker, when did you quit? (Date/Year): 04/14/2022 Number of Years Smoked: 19 How many cigarettes a day do you smoke? (20 cigarettes=1 Pk): 3 Do you dip or chew tobacco?: No Do you vape?: No Patient requests smoking cessation consult: No Initiate information on smoking cessation: No Living arrangement: At home Living Condition: With family Relationship: Level: Independent Do you feel safe in your home environment?: Yes Suffered physical, verbal, emotional, or financial abuse?: No History of Abuse: No ETOH Use: Other (she claims to be sober the past several months.) Substance Use: denies use Are you sexually active?: Yes POLST Patient has POLST: No POLST Status: Full Code Exam Constitutional normal general appearance and no apparent distress HENMT oropharynx normal Eyes PERRL Respiratory breath sounds equal bilaterally and normal respiratory effort Cardiovascular normal heart rate noted and regular rhythm noted Gastrointestinal Tender to palpation epigastric without peritoneal signs Genitourinary no CVA tenderness Neurology GCS 15 Psychiatry mental status grossly normal and oriented x3 Skin skin color normal Results Vitals Vitals: Vital Signs - 24 hr 08/30/24 14:56 08/30/24 17:23 08/30/24 18:13 Temperature 37.1 C 37.2 C Temperature Source Temporal Artery Scan Temporal Artery Scan Pulse Rate 91 95 Respiratory Rate 18 22 Blood Pressure 141/117 H O2 Saturation 98 98 O2 Source Room air Room air Pain Intensity 10 8 9 08/30/24 19:00 Temperature 37.0 C Temperature Source Tympanic Pulse Rate 90 Respiratory Rate 22 Blood Pressure 138/100 H O2 Saturation 100 O2 Source Room air Pain Intensity 6 Oxygen O2 Source Room air Labs Labs: Laboratory Tests 08/30/24 18:08 WBC 7.1 RBC 3.97 L Hgb 13.7 Hct 41.6 MCV 104.8 H MCH 34.5 H MCHC 32.9 RDW 13.8 Plt Count 205 MPV 11.0 H Neut # (Auto) 4.3 Lymph # (Auto) 1.8 [place] # (Auto) 0.6 Eos # (Auto) 0.3 Baso # (Auto) 0.1 Absolute Nucleated RBC 0.00 Nucleated RBC % 0.0 Sodium 135 Potassium 3.9 Chloride 103 Carbon Dioxide 27 Anion Gap 5.0 L BUN 6 Creatinine 0.9 Estimated GFR (MDRD) 70 L Glucose 108 H Calcium 8.5 Total Bilirubin 0.4 AST 21 ALT 14 Alkaline Phosphatase 102 Total Protein 6.6 Albumin 3.7 Globulin 2.9 Albumin/Globulin Ratio 1.3 Lipase 827 H Urine Color YELLOW Urine Clarity CLEAR Urine pH 6.0 Ur Specific [place] 1.020 Urine Protein NEGATIVE Urine Glucose (UA) NEGATIVE Urine Ketones NEGATIVE Urine Occult Blood NEGATIVE Urine Nitrite NEGATIVE Urine Bilirubin NEGATIVE Urine Urobilinogen 0.2 (NORMAL) Ur Leukocyte Esterase NEGATIVE Ur Microscopic Review NOT INDICATED Urine Culture Comments NOT INDICATED Urine HCG, Qual NEGATIVE PD Medical Decision Making ED course Complexity details: reviewed old records, reviewed results, re-evaluated patient, considered differential and d/w patient ED course: 38-year-old female with recurrent pancreatitis. Had a recent CT scan 2 days ago , will not repeat today. Pain not controlled with oral medications at home. Vomiting at home. Received IV morphine here, IV fluids, IV Zofran. Continues to have pain and nausea, will admit for further care. Discussed the case with the hospitalist who accepts. This document was made in part using voice recognition software. While efforts are made to proofread this document, sound alike and grammatical errors may occur. Discharge Plan Discharge Patient Disposition: ED Place in Observation Condition: Stable Clinical Impression: Recurrent pancreatitis, Intractable nausea and vomiting Prescriptions: No Action escitalopram oxalate 20 MG tablet 20 mg PO DAILY famotidine 20 MG tablet 20 mg PO DAILY [id number] [Zenpep] 1 CAP capsule,delayed release(DR/EC) 1 cap PO TIDWM oxycodone 5 MG tablet 10 mg PO BID Qty: 20 0RF promethazine 25 MG tablet 25 mg PO Q6H PRN (Reason: Nausea / Vomiting) Qty: 10 0RF ondansetron 4 MG tablet,disintegrating 4 mg translingual Q6H PRN (Reason: Nausea / Vomiting) Qty: 10 0RF oxycodone 5 MG tablet 5 - 10 mg PO Q6H MDD 6 PRN (Reason: pain) Qty: 14 0RF hydrocodone-acetaminophen 5-325 mg tablet 1 tab PO Q6H PRN (Reason: pain) Qty: 14 0RF meloxicam 7.5 mg tablet 7.5 mg PO BID Qty: 14 0RF docusate sodium 100 mg capsule 100 mg PO BID Qty: 14 0RF ondansetron HCl 4 mg tablet 4 mg PO Q8H PRN (Reason: nausea and vomiting) Qty: 10 0RF hydrocodone-acetaminophen 7.5-325 mg tablet 1 tab PO QID PRN (Reason: pain) Qty: 14 0RF hyoscyamine sulfate [Levsin] 0.125 mg tablet 0.125 mg PO QID PRN (Reason: abd pain) Qty: 20 0RF ondansetron HCl 4 mg tablet 4 mg PO Q8H PRN (Reason: nausea and vomiting) Qty: 14 0RF oxycodone 5 mg tablet 5 mg PO QID PRN (Reason: pain) Qty: 14 0RF promethazine 25 mg tablet 25 mg PO TID PRN (Reason: nausea and vomiting) Qty: 14 0RF Print Language: Lebanese Stand Alone Forms: PCP List
[2024-08-30] MEDS: MORPHINE 10 MG/ML VIAL IVP STA ×2 (18:13→19:25)
[2024-08-30] MEDS: droPERidol 2.5 MG/ML VIAL IVP STA (18:22)
[2024-08-30 18:23] LABS: BASOPHILS # (AUTO) 0.1 10^3/uL (0.0-0.1); BASOPHILS % (AUTO) 0.7 %; EOSINOPHILS # (AUTO) 0.3 10^3/uL (0.0-0.7); EOSINOPHILS % (AUTO) 4.4 %; HCT - HEMATOCRIT 41.6 % (37.0-47.0); HGB - HEMOGLOBIN 13.7 g/dL (12.0-16.0); LYMPHOCYTES # (AUTO) 1.8 10^3/uL (1.5-3.5); LYMPHOCYTES % (AUTO) 25.6 %; MEAN CORPUSCULAR HEMOGLOBIN 34.5 pg (27.0-31.0); MEAN CORPUSCULAR HGB CONC 32.9 g/dL (32.0-36.0); MEAN CORPUSCULAR VOLUME 104.8 fL (81.0-99.0); MONOCYTES # (AUTO) 0.6 10^3/uL (0.0-1.0); MONOCYTES % (AUTO) 8.5 %; NEUTROPHILS # (AUTO) 4.3 10^3/uL (1.5-6.6); NEUTROPHILS % (AUTO) 60.5 %; PLT - PLATELET COUNT 205 10^3/uL (130-450); RED BLOOD COUNT 3.97 10^6/uL (4.20-5.40); RED CELL DISTRIBUTION WIDTH 13.8 % (12.0-15.0); WHITE BLOOD COUNT 7.1 x10^3/uL (4.8-10.8)
[2024-08-30 18:25] LABS: BILIRUBIN,URINE NEGATIVE (NEGATIVE); GLUCOSE, URINE (UA) NEGATIVE (NEGATIVE); KETONES,URINE (UA) NEGATIVE (NEGATIVE); LEUKOCYTE ESTERASE, URINE NEGATIVE (NEGATIVE); NITRITE,URINE NEGATIVE (NEGATIVE); OCCULT BLOOD,URINE NEGATIVE (NEGATIVE); PROTEIN,URINE NEGATIVE (NEGATIVE); UROBILINOGEN,URINE 0.2 (NORMAL) E.U./dL (NORMAL)
[2024-08-30 18:26] LABS: CLARITY,URINE CLEAR (CLEAR); HCG UR QUAL NEGATIVE
[2024-08-30 18:33] LABS: ALBUMIN 3.7 g/dL (3.2-5.5); ALBUMIN/GLOBULIN RATIO 1.3 (1.0-2.2); BILIRUBIN,TOTAL 0.4 mg/dL (0.2-1.0); CALCIUM 8.5 mg/dL (8.5-10.3); CREATININE 0.9 mg/dL (0.6-1.3); POTASSIUM 3.9 mmol/L (3.5-4.5); TOTAL PROTEIN 6.6 g/dL (6.4-8.9)
[2024-08-30] MEDS: SODIUM CHLORIDE 0.9% 1,000 ML IV STA (19:24)
[2024-08-30] MEDS: ONDANSETRON 4 MG/2 ML VIAL IVP STA (19:25)
[2024-08-30] MEDS ORDERED: THIAMINE 100 MG/1 ML 2 ML MDV ONE (19:32)
[2024-08-30] MEDS: THIAMINE 100 MG/1 ML 2 ML MDV IVP STA (19:33)
[2024-08-30] MEDS: LACTATED RINGERS 1,000 ML IV SCH (20:21)
[2024-08-30] MEDS: HYDROmorphone 0.5 MG/0.5 ML SYRINGE IVP PRN (20:34)
--- NOTE | 2024-08-30 21:05 | HISTORY & PHYSICAL EXAMINATION ---
Chief Complaint Chief Complaint Chief Complaint: Abdominal pain History of Present Illness Admitted From Admitted From:: Home History Obtained From History obtained from: Patient interview History of Present Illness HPI Comment/Other: 38-year-old female PMH significant for renal cysts, alcohol abuse in remission with frequent pancreatitis who has not had a drink in several months until last month, when she accidentally got somebody else's drink at a [employer] which started her on a downhill spiral. She has been seen 6 times since July in the ER, with progressively worsening symptoms. She reports an unhealthy diet, stating she eats a lot of fast foods. In the ER, her lipase was noted to be 827. CT abdomen/pelvis from 08/28/2024 shows no pancreatic ductal dilation, unremarkable gallbladder. Hospitalist was contacted for observation for acute pancreatitis Meds/Allgy Home Medications Ambulatory Orders Medication Instructions Recorded Confirmed escitalopram oxalate 20 mg tablet 20 mg PO DAILY 07/07/23 01/01/24 famotidine 20 mg tablet 20 mg PO DAILY 10/07/23 01/01/24 dlvocf-qdaypyre-gljfdgd 1 cap PO TIDWM 10/07/23 01/01/24 5,000-17,000-24,000 unit capsule, delayed rel (Zenpep) oxycodone 5 mg tablet 10 mg (2 x 5 mg) PO BID #20 tabs 01/03/24 ondansetron 4 mg disintegrating 4 mg translingual Q6H PRN Nausea / 02/13/24 tablet Vomiting #10 tabs oxycodone 5 mg tablet 5 - 10 mg (1 - 2 x 5 mg) PO Q6H 02/13/24 PRN pain #14 tabs promethazine 25 mg tablet 25 mg PO Q6H PRN Nausea / Vomiting 02/13/24 #10 tabs docusate sodium 100 mg capsule 100 mg PO BID #14 caps 07/28/24 hydrocodone 5 mg-acetaminophen 325 1 tab PO Q6H PRN pain #14 tabs 07/28/24 mg tablet meloxicam 7.5 mg tablet 7.5 mg PO BID #14 tabs 07/28/24 ondansetron HCl 4 mg tablet 4 mg PO Q8H PRN nausea and 07/28/24 vomiting #10 tabs hydrocodone 7.5 mg-acetaminophen 1 tab PO QID PRN pain #14 tabs 08/14/24 325 mg tablet hyoscyamine sulfate 0.125 mg 0.125 mg PO QID PRN abd pain #20 08/14/24 tablet (Levsin) tabs ondansetron HCl 4 mg tablet 4 mg PO Q8H PRN nausea and 08/14/24 vomiting #14 tabs oxycodone 5 mg tablet 5 mg PO QID PRN pain #14 tabs 08/22/24 promethazine 25 mg tablet 25 mg PO TID PRN nausea and 08/22/24 vomiting #14 tabs Allergies Allergies Allergy/AdvReac Type Severity Reaction Status Date / Time No Known Drug Allergies Allergy Verified 08/30/24 14:56 PFSH Active Problems All Active Problems (Updated 08/30/24 @ 21:08 by Akil Iverson DNP) Leg swelling (Acute) Left lower quadrant abdominal pain (Acute) Nausea (Acute) Kidney cysts (Acute) Acute left flank pain (Acute) Abdominal pain (Acute) Right lateral abdominal pain (Acute) Right lateral abdominal pain (Acute) Renal cyst (Acute) Abdominal pain, acute, left lower quadrant (Acute) Hematoma of kidney (Acute) Disorder of electrolytes (Acute) Alcohol withdrawal (Acute) Bilirubinemia (Acute) Hypomagnesemia (Acute) RAY (acute kidney injury) (Acute) UTI (urinary tract infection) (Acute) Pancreatitis (Acute) Hyponatremia (Acute) Elevated liver enzymes (Acute) Diarrhea due to malabsorption (Acute) Chronic pancreatitis due to acute alcohol intoxication (Acute) Acute on chronic pancreatitis (Acute) Anxiety about health (Acute) Abdominal pain (Acute) Gastritis (Acute) Depression with anxiety (Acute) Hepatitis (Acute) Hepatic infarction (Acute) Acetaminophen poisoning (Acute) Pancytopenia (Acute) Protein S deficiency (Acute) Intractable abdominal pain (Acute) Vomiting (Acute) Pancreatic pseudocyst/cyst (Chronic) Intractable nausea and vomiting (Acute) History of alcohol abuse (Acute) Recurrent pancreatitis (Acute) Flank pain (Acute) Hypokalemia (Acute) Nausea and vomiting (Acute) Pancreatic pseudocyst (Chronic) Alcohol abuse (Chronic) GERD (gastroesophageal reflux disease) (Chronic) Tobacco abuse (Chronic) Social History Social History (Updated 07/28/24 @ 09:02 by Roland Cooper RN) Smoking Status: Current every day smoker If you are a former smoker, when did you quit? (Date/Year): 04/14/2022 Number of Years Smoked: 19 How many cigarettes a day do you smoke? (20 cigarettes=1 Pk): 3 Do you dip or chew tobacco?: No Do you vape?: No Patient requests smoking cessation consult: No Initiate information on smoking cessation: No Living arrangement: At home Living Condition: With family Relationship: Level: Independent Do you feel safe in your home environment?: Yes Suffered physical, verbal, emotional, or financial abuse?: No History of Abuse: No ETOH Use: Other (she claims to be sober the past several months.) Substance Use: denies use Are you sexually active?: Yes POLST Patient has POLST: No POLST Status: Full Code Review of Systems Status of ROS: 10 or more systems reviewed and unremarkable except as noted in history and below Constitutional Denies: Fever or Chills Cardiovascular Reports: shortness of breath with exertion (Breathing is limited by abdominal pain); Denies: Irregular heart rate, chest pain or palpitations Respiratory Reports: Shortness of breath (Breathing is limited by abdominal pain) Gastrointestinal Reports: Abdominal pain, Nausea, Vomiting and Diarrhea Genitourinary Denies: Painful urination Exam Constitutional normal general appearance and no apparent distress HENMT normocephalic and head/scalp atraumatic Eyes PERRL Neck/C-Spine visual inspection normal Lymph no lymphadenopathy noted Chest inspection of chest normal Respiratory breath sounds equal bilaterally Cardiovascular normal heart rate noted Gastrointestinal abdomen normal to inspection and tender to palpation (severe), (epigastric) and (periumbilical) Extremities normal to inspection Swelling slightly worse on the right, Positive Homans' sign Neurology GCS 15 Psychiatry oriented x3 Skin skin color normal Conclusion/Plan Problem List (1) Acute on chronic pancreatitis: Plan: N.p.o. Started on LR at 200 Zofran, Compazine as needed Hydromorphone 0.5 mg IV push every 2 hours as needed for severe pain (2) Leg swelling: Plan: She has swelling in her legs, right greater than left. Also reports calf pain, states that she is not very active this is likely not musculoskeletal in nature Positive Homans' sign, will get venous ultrasound To rule out DVT Plan Placed in observation Full code Reports her mother is her surrogate decision-maker Lab Results Lab results reviewed: Yes 08/30/24 18:08 08/30/24 18:08 Core Measures Anticipated LOS I expect patient to be DC'd or transferred within 96 hours.: Yes DVT/VTE - Prophylaxis VTE/DVT Prophylaxis med ordered at admit?: Yes
[2024-08-30] MEDS: PROCHLORPERAZINE 10 MG/2 ML VIAL IVP PRN (21:38)
[2024-08-30] MEDS: HYDROmorphone 1 MG/ML CARPUJECT IVP SCH (21:38)
[2024-08-30] MEDS: ENOXAPARIN 100 MG/ML SYRINGE SUBQ SCH (23:09)
--- NOTE | 2024-08-30 23:50 | Ultrasound Report ---
PROCEDURE: US Venous Duplex RT INDICATIONS: Calf pain and swelling TECHNIQUE: Real-time imaging, as well as color and pulse Doppler interrogation, were performed of the lower extr emity deep veins from the inguinal ligament to the popliteal fossa. Attempted visualization of the ca lf veins was performed. COMPARISON: None. FINDINGS: The deep veins are normally compressible, and free of intraluminal thrombus. The catheter muscles are not well visualized and evaluated due to subcutaneous edema. Color and pulse Doppler demo nstrate normal phasic intraluminal flow. There is normal augmentation response to distal compression maneuver. Thromboses visualized in the superficial veins of the right lower extremity including in the great sa phenous vein and distal calf varicose veins. IMPRESSION: No deep venous thrombosis of the visualized lower extremity. Right lower extremity superficial vein thrombosis. Agree with preliminary interpretation provided to the ordering provider by the ultrasound technologis t. Reviewed by: Sima Carolina MD, PhD on 08/30/2024 11:48 PM PDT Approved by: Sima Carolina MD, PhD on 08/30/2024 11:48 PM PDT Station ID: [id number]
[2024-08-31] MEDS: SODIUM CHLORIDE FLUSH 0.9% 10 ML SYRINGE IVP SCH (00:03)
[2024-08-31] MEDS: HYDROmorphone 0.5 MG/0.5 ML SYRINGE IVP PRN (00:03)
[2024-08-31 06:14] LABS: BASOPHILS % (AUTO) 0.7 %; EOSINOPHILS # (AUTO) 0.3 10^3/uL (0.0-0.7); EOSINOPHILS % (AUTO) 4.5 %; HCT - HEMATOCRIT 34.7 % (37.0-47.0); HGB - HEMOGLOBIN 11.4 g/dL (12.0-16.0); LYMPHOCYTES # (AUTO) 1.8 10^3/uL (1.5-3.5); LYMPHOCYTES % (AUTO) 31.4 %; MEAN CORPUSCULAR HEMOGLOBIN 35.1 pg (27.0-31.0); MEAN CORPUSCULAR HGB CONC 32.9 g/dL (32.0-36.0); MEAN CORPUSCULAR VOLUME 106.8 fL (81.0-99.0); MEAN PLATELET VOLUME 11.5 fL (7.9-10.8); MONOCYTES # (AUTO) 0.5 10^3/uL (0.0-1.0); MONOCYTES % (AUTO) 8.4 %; NEUTROPHILS # (AUTO) 3.1 10^3/uL (1.5-6.6); NEUTROPHILS % (AUTO) 54.8 %; PLT - PLATELET COUNT 148 10^3/uL (130-450); RED BLOOD COUNT 3.25 10^6/uL (4.20-5.40); RED CELL DISTRIBUTION WIDTH 13.6 % (12.0-15.0); WHITE BLOOD COUNT 5.6 x10^3/uL (4.8-10.8)
[2024-08-31 06:32] LABS: CALCIUM 7.9 mg/dL (8.5-10.3); CREATININE 0.8 mg/dL (0.6-1.3); POTASSIUM 3.4 mmol/L (3.5-4.5)
[2024-08-31] MEDS: ONDANSETRON 4 MG/2 ML VIAL IVP PRN (06:35)
[2024-08-31] MEDS: ENOXAPARIN 40 MG/0.4 ML SYRINGE SUBQ SCH (08:33)
[2024-08-31] MEDS: HYDROmorphone 1 MG/ML CARPUJECT IVP PRN (10:44)
[2024-08-31] MEDS: POTASSIUM CHLORIDE 20 MEQ TABLET PO ONE (11:20)
--- NOTE | 2024-08-31 11:27 | PHARMACY PROGRESS NOTE ---
Best Possible Medication History Admit Date and Time: 08/30/24 193 Home Medications Medication Instructions Recorded Confirmed Type escitalopram oxalate 20 mg tablet 20 mg PO DAILY 07/07/23 08/31/24 History ltousa-uwhmesii-ecwdqyq 1 cap PO TIDWM 10/07/23 08/31/24 History 5,000-17,000-24,000 unit capsule, delayed rel (Zenpep) ondansetron HCl 4 mg tablet 4 mg PO Q8H PRN nausea and 07/28/24 08/31/24 Rx vomiting #10 tabs Processed by: Pharmacy Medications reviewed in ED?: Yes Medication History completed: Yes Patient Interview: Completed Secondary Source(s): Pharmacy records and Insurance records [facility] Statement: As the person ultimately responsible for medication therapy, providers are able to order a medication from an existing home medication list in [facility] via the "Reconcile Routine" prior to Confirmation of that medication by bilingual patient support caseworker. Such practice is discouraged except when the physician, in their clinical judgm ent, deems that a medical need exists for a medication without regard to previous use.
--- NOTE | 2024-08-31 13:28 | PROVIDER PROGRESS NOTE ---
<Statement entered by Akil Iverson DNP - 08/31/24 19:21> Patient was seen and examined by me with a separate encounter after being seen by ANDER student. I reviewed the student's documentation including patient history, physical examination, laboratory, imaging, clinical assessment and treatment plan. I have discussed the management of the patient with the student, and with the patient. There are no changes. I am continuing her 1 mg hydromorphone as needed as well as adding 2 mg morphine. Continue IVF. 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 She reports a recent relapse over the last few months and a hx of poor diet, including lots of fast food. Today she says her pain is 9/10 but location and characteristics are unchanged. Patient is requesting jello because she is very hungry. For pain management, she says in the past she has been given morphine and toradol during the day instead of dilauded which makes her drowsy. Her right LE pain is the same -- very superficial, sensitive to light touch, located primarily around her ankle. Last night she also started having left calf pain that is deeper and more crampy feeling. Current Medications Current Medications Current Medications: Current Medications Generic Name Dose Route Start Last Admin Trade Name Freq PRN Reason Stop Dose Admin Enoxaparin Sodium 40 mg 08/31/24 09:00 08/31/24 08:33 Enoxaparin 40 Mg/0.4 Ml Syringe SUBQ 40 mg DAILY LUCY Administration Famotidine 20 mg 08/31/24 14:00 Famotidine 20 Mg Tablet PO BID LUCY Hydromorphone HCl 1 mg 08/31/24 10:30 08/31/24 13:14 Hydromorphone 1 Mg/Ml Carpuject IVP 1 mg Q2H PRN Administration Pain 8 to 10 Lactated Ringer's 1,000 mls @ 200 mls/hr 08/30/24 20:00 08/31/24 11:38 Lr IV 200 mls/hr .Q5H LUCY Administration Ondansetron HCl 4 mg 08/30/24 19:57 Ondansetron Odt 4 Mg Tablet TL Q6HR PRN Nausea / Vomiting Ondansetron HCl 4 mg 08/30/24 19:57 08/31/24 06:35 Ondansetron 4 Mg/2 Ml Vial IVP 4 mg Q6HR PRN Administration Nausea / Vomiting Prochlorperazine Edisylate 10 mg 08/30/24 19:57 08/30/24 21:38 Prochlorperazine 10 Mg/2 Ml Vial IVP 10 mg Q6HR PRN Administration Nausea / Vomiting Sodium Chloride 10 ml 08/30/24 19:57 Sodium Chloride Flush 0.9% 10 Ml Syringe IVP PRN PRN NEEDED PER PROVIDER ORDERS Sodium Chloride 10 ml 08/31/24 01:00 08/31/24 08:33 Sodium Chloride Flush 0.9% 10 Ml Syringe IVP 10 ml 0100,0900,1700 LUCY Administration Objective Vital Signs/Intake & Output Reviewed Vital Signs: Yes Vital Signs: Vital Signs x48h Temp Pulse Resp BP Pulse Ox 08/31/24 12:35 36.7 C 88 16 132/96 H 96 08/31/24 08:13 36.5 C 83 16 119/86 97 Intake & Output: Intake & Output 08/28/24 08/29/24 08/30/24 08/31/24 23:59 23:59 23:59 23:59 Intake Total 145 / 145 3000 / 3000 Output Total 300 / 300 450 / 450 Balance -155 / -155 2550 / 2550 Weight (kg) 86 kg Objective General Appearance: positive No acute distress, Alert and Other (Appears upbeat, very talkative, and animated with her hands. ) Eyes Bilateral: positive Normal inspection, PERRL and EOMI ENT: positive ENT inspection nml Neck: positive Nml inspection and Trachea midline Respiratory: positive Chest non-tender, No respiratory distress and Breath sounds nml Cardiovascular: positive Regular rate & rhythm, No murmur and No gallop Abdomen: positive Other (hyperactive bowel sounds. tenderness to light palpation in RUQ, epigastric and periumbilical regions. ) Skin: positive Color nml, No rash, Warm and Dry Extremities: positive Other (Bilateral calf tenderness to palpation. Hyperpigmentation spot just superior to right medial malleolus. Mini varicose veins dorsal aspect of right foot. ); negative Pedal edema Neurologic/Psychiatric: positive Oriented x3, CN's nml (2-12), Motor nml and Mood/affect nml Lab Results 08/31/24 05:08 08/31/24 05:08 Other Labs: Lab Results x24hrs 08/31/24 08/30/24 Range/Units 05:08 18:08 WBC 5.6 7.1 (4.8-10.8) x10^3/uL RBC 3.25 L 3.97 L (4.20-5.40) 10^6/uL Hgb 11.4 L 13.7 (12.0-16.0) g/dL Hct 34.7 L 41.6 (37.0-47.0) % MCV 106.8 H 104.8 H (81.0-99.0) fL MCH 35.1 H 34.5 H (27.0-31.0) pg MCHC 32.9 32.9 (32.0-36.0) g/dL RDW 13.6 13.8 (12.0-15.0) % Plt Count 148 205 (130-450) 10^3/uL MPV 11.5 H 11.0 H (7.9-10.8) fL Neut # (Auto) 3.1 4.3 (1.5-6.6) 10^3/uL Lymph # (Auto) 1.8 1.8 (1.5-3.5) 10^3/uL [place] # (Auto) 0.5 0.6 (0.0-1.0) 10^3/uL Eos # (Auto) 0.3 0.3 (0.0-0.7) 10^3/uL Baso # (Auto) 0.0 0.1 (0.0-0.1) 10^3/uL Absolute Nucleated RBC 0.00 0.00 x10^3/uL Nucleated RBC % 0.0 0.0 /100WBC Sodium 137 135 (135-145) mmol/L Potassium 3.4 L 3.9 (3.5-4.5) mmol/L Chloride 108 103 (101-111) mmol/L Carbon Dioxide 25 27 (21-32) mmol/L Anion Gap 4.0 L 5.0 L (6-13) BUN 6 6 (6-20) mg/dL Creatinine 0.8 0.9 (0.6-1.3) mg/dL Estimated GFR (MDRD) 81 L 70 L (>89) Glucose 112 H 108 H (74-104) mg/dL Calcium 7.9 L 8.5 (8.5-10.3) mg/dL Total Bilirubin 0.4 (0.2-1.0) mg/dL AST 21 (10-42) IU/L ALT 14 (10-60) IU/L Alkaline Phosphatase 102 (42-121) IU/L Total Protein 6.6 (6.4-8.9) g/dL Albumin 3.7 (3.2-5.5) g/dL Globulin 2.9 (2.1-4.2) g/dL Albumin/Globulin Ratio 1.3 (1.0-2.2) Lipase 827 H (11-82) U/L Urine Color YELLOW Urine Clarity CLEAR (CLEAR) Urine pH 6.0 (5.0-7.5) PH Ur Specific [place] 1.020 (1.002-1.030) Urine Protein NEGATIVE (NEGATIVE) mg/dL Urine Glucose (UA) NEGATIVE (NEGATIVE) mg/dL Urine Ketones NEGATIVE (NEGATIVE) mg/dL Urine Occult Blood NEGATIVE (NEGATIVE) Urine Nitrite NEGATIVE (NEGATIVE) Urine Bilirubin NEGATIVE (NEGATIVE) Urine Urobilinogen 0.2 (NORMAL) (NORMAL) E.U./dL Ur Leukocyte Esterase NEGATIVE (NEGATIVE) Ur Microscopic Review NOT INDICATED Urine Culture Comments NOT INDICATED Urine HCG, Qual NEGATIVE Diagnostic Imaging Diagnostic Imaging Comments: US Venous Duplex RT: FINDINGS: The deep veins are normally compressible, and free of intraluminal thrombus. The catheter muscles are not well visualized and evaluated due to subcutaneous edema. Color and pulse Doppler demonstrate normal phasic intraluminal flow. There is normal augmentation response to distal compression maneuver. Thromboses visualized in the superficial veins of the right lower extremity including in the great saphenous vein and distal calf varicose veins. IMPRESSION: No deep venous thrombosis of the visualized lower extremity. Right lower extremity superficial vein thrombosis. Abdomen/ Pelvis CT: IMPRESSION: No hydronephrosis or obstructing renal stone. Stable interval exam demonstrating fluid attenuation cystic foci within the left kidney. ABX Reporting Has patient been on IV antibiotics over the past 48 hours?: No Assessment/Plan Problem List (1) Acute on chronic pancreatitis: Impression: Abdominal CT clear for any sign of obstruction. Continue bowel rest Continue LR at 200mls/HR IV Q5H Continue zofran and compazine as needed Adjusted pain medication to decrease daytime sedation: * Hydromorphone 1mg IVP Q2HR PRN for severe pain * Morphine 2mg IVP Q2HR PRN for severe pain Potassium was a low -- replenished with 40meq PO once Monitor glucose and calcium levels with daily BMP 08/30 N.p.o. Started on LR at 200 Zofran, Compazine as needed Hydromorphone 0.5 mg IV push every 2 hours as needed for severe pain (2) Leg swelling: Impression: Venous ultrasound visualized thromboses in the superficial veins of the right lower extremity including in the great saphenous vein and distal calf varicose veins. Her pain is unchanged today in the right leg, however she reports calf pain in the left leg that started overnight. * Continue Lovenox 40 mg SUBQ daily -- anticoagulation not indicated at this time for superficial venous thrombosis. * Consider venous ultrasound of left leg to rule out DVT. 08/30 She has swelling in her legs, right greater than left. Also reports calf pain, states that she is not very active this is likely not musculoskeletal in nature Positive Homans' sign, will get venous ultrasound To rule out DVT
[2024-08-31] MEDS: FAMOTIDINE 20 MG TABLET PO SCH (13:37)
[2024-08-31] MEDS: MORPHINE 2 MG/ML CARPUJECT IVP PRN (17:10)
[2024-09-01 05:47] LABS: BASOPHILS % (AUTO) 0.8 %; EOSINOPHILS # (AUTO) 0.2 10^3/uL (0.0-0.7); EOSINOPHILS % (AUTO) 4.9 %; HGB - HEMOGLOBIN 11.6 g/dL (12.0-16.0); LYMPHOCYTES # (AUTO) 1.4 10^3/uL (1.5-3.5); MEAN CORPUSCULAR HEMOGLOBIN 34.5 pg (27.0-31.0); MEAN CORPUSCULAR HGB CONC 32.2 g/dL (32.0-36.0); MEAN CORPUSCULAR VOLUME 107.1 fL (81.0-99.0); MEAN PLATELET VOLUME 11.2 fL (7.9-10.8); MONOCYTES # (AUTO) 0.5 10^3/uL (0.0-1.0); MONOCYTES % (AUTO) 12.1 %; NEUTROPHILS # (AUTO) 1.8 10^3/uL (1.5-6.6); NEUTROPHILS % (AUTO) 45.9 %; PLT - PLATELET COUNT 125 10^3/uL (130-450); RED BLOOD COUNT 3.36 10^6/uL (4.20-5.40); RED CELL DISTRIBUTION WIDTH 13.6 % (12.0-15.0); WHITE BLOOD COUNT 3.9 x10^3/uL (4.8-10.8)
[2024-09-01 06:04] LABS: MAGNESIUM 1.5 mg/dL (1.7-2.3)
[2024-09-01 06:06] LABS: CREATININE 0.8 mg/dL (0.6-1.3); POTASSIUM 3.7 mmol/L (3.5-4.5)
[2024-09-01] MEDS: hydrOXYzine PAMOATE 25 MG CAPSULE PO PRN (15:22)
--- NOTE | 2024-09-01 16:25 | PROVIDER PROGRESS NOTE ---
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 The patient reports her abdominal pain is still 8-9/10 despite pain medications, but denies any change in characteristics. She says she's had a few episodes of chest tightness that are associated with increased pain. With a hx of anxiety, she reports deep breathing exercises help her to relax. She denies any radiating chest pain, palpitations, dizziness, or headache. Her bowel movements are normal and she is tolerating clear liquids fine. She denies any fever, chills, night sweats, changes in vision, nausea, or vomiting. Her varicose vein on the left calf muscle is worse than yesterday but she is still ambulating somewhat normally. Current Medications Current Medications Current Medications: Current Medications Generic Name Dose Route Start Last Admin Trade Name Freq PRN Reason Stop Dose Admin Enoxaparin Sodium 40 mg 08/31/24 09:00 09/01/24 08:39 Enoxaparin 40 Mg/0.4 Ml Syringe SUBQ 40 mg DAILY LUCY Administration Famotidine 20 mg 08/31/24 14:00 09/01/24 08:40 Famotidine 20 Mg Tablet PO 20 mg BID LUCY Administration Hydromorphone HCl 1 mg 08/31/24 10:30 09/01/24 13:59 Hydromorphone 1 Mg/Ml Carpuject IVP 1 mg Q2H PRN Administration Pain 8 to 10 Hydroxyzine Pamoate 50 mg 09/01/24 14:33 09/01/24 15:22 Hydroxyzine Pamoate 25 Mg Capsule PO 50 mg Q6H PRN Administration Insomnia Lactated Ringer's 1,000 mls @ 200 mls/hr 08/30/24 20:00 09/01/24 13:59 Lr IV 200 mls/hr .Q5H LUCY Administration Ondansetron HCl 4 mg 08/30/24 19:57 Ondansetron Odt 4 Mg Tablet TL Q6HR PRN Nausea / Vomiting Ondansetron HCl 4 mg 08/30/24 19:57 09/01/24 15:22 Ondansetron 4 Mg/2 Ml Vial IVP 4 mg Q6HR PRN Administration Nausea / Vomiting Prochlorperazine Edisylate 10 mg 08/30/24 19:57 08/31/24 23:41 Prochlorperazine 10 Mg/2 Ml Vial IVP 10 mg Q6HR PRN Administration Nausea / Vomiting Sodium Chloride 10 ml 08/30/24 19:57 Sodium Chloride Flush 0.9% 10 Ml Syringe IVP PRN PRN NEEDED PER PROVIDER ORDERS Sodium Chloride 10 ml 08/31/24 01:00 09/01/24 08:40 Sodium Chloride Flush 0.9% 10 Ml Syringe IVP 10 ml 0100,0900,1700 LUCY Administration Objective Vital Signs/Intake & Output Reviewed Vital Signs: Yes Vital Signs: Vital Signs x48h Temp Pulse Resp BP Pulse Ox 09/01/24 15:33 36.7 C 81 18 150/104 H 98 09/01/24 12:48 36.8 C 89 18 140/102 H 98 Intake & Output: Intake & Output 08/29/24 08/30/24 08/31/24 09/01/24 23:59 23:59 23:59 23:59 Intake Total 145 / 145 5890 / 5890 3657 / 3657 Output Total 300 / 300 1800 / 1800 2900 / 2900 Balance -155 / -155 4090 / 4090 757 / 757 Weight (kg) 86 kg Objective General Appearance: positive No acute distress, Alert and Other (Appears upbeat, very talkative, and animated with her hands. ) Eyes Bilateral: positive Normal inspection, PERRL, EOMI, No lid inflammation, Conjunctivae nml and No scleral icterus ENT: positive ENT inspection nml, Pharynx nml and No signs of dehydration; negative Purulent nasal drainage or Pharyngeal erythema Neck: positive Nml inspection, No JVD, Trachea midline and Carotid bruit Respiratory: positive Chest non-tender, No respiratory distress and Breath sounds nml Cardiovascular: positive Regular rate & rhythm, No murmur and No gallop Abdomen: positive No distention and Other (hyperactive bowel sounds. tenderness to light palpation in RUQ, epigastric and periumbilical regions. ) Skin: positive Color nml, No rash, Warm and Dry Extremities: positive Other (Bilateral calf tenderness to palpation. Enlarged, tender varicose vein on left calf. Hyperpigmentation spot just superior to right medial malleolus. ); negative Pedal edema Neurologic/Psychiatric: positive Oriented x3, CN's nml (2-12), Motor nml and Mood/affect nml Lab Results 09/01/24 05:32 09/01/24 05:32 Other Labs: Lab Results x24hrs 09/01/24 Range/Units 05:32 WBC 3.9 L (4.8-10.8) x10^3/uL RBC 3.36 L (4.20-5.40) 10^6/uL Hgb 11.6 L (12.0-16.0) g/dL Hct 36.0 L (37.0-47.0) % MCV 107.1 H (81.0-99.0) fL MCH 34.5 H (27.0-31.0) pg MCHC 32.2 (32.0-36.0) g/dL RDW 13.6 (12.0-15.0) % Plt Count 125 L (130-450) 10^3/uL MPV 11.2 H (7.9-10.8) fL Neut # (Auto) 1.8 (1.5-6.6) 10^3/uL Lymph # (Auto) 1.4 L (1.5-3.5) 10^3/uL [place] # (Auto) 0.5 (0.0-1.0) 10^3/uL Eos # (Auto) 0.2 (0.0-0.7) 10^3/uL Baso # (Auto) 0.0 (0.0-0.1) 10^3/uL Absolute Nucleated RBC 0.00 x10^3/uL Nucleated RBC % 0.0 /100WBC Sodium 137 (135-145) mmol/L Potassium 3.7 (3.5-4.5) mmol/L Chloride 107 (101-111) mmol/L Carbon Dioxide 28 (21-32) mmol/L Anion Gap 2.0 L (6-13) BUN 4 L (6-20) mg/dL Creatinine 0.8 (0.6-1.3) mg/dL Estimated GFR (MDRD) 81 L (>89) Glucose 112 H (74-104) mg/dL Calcium 8.0 L (8.5-10.3) mg/dL Magnesium 1.5 L (1.7-2.3) mg/dL Vitamin B12 208 (180-914) pg/mL Folate 8.3 (5.90 - >24.8) ng/mL ABX Reporting Has patient been on IV antibiotics over the past 48 hours?: No Assessment/Plan Problem List (1) Acute on chronic pancreatitis: Impression: She is tolerating clear liquids well. With continued pain and mention of possible associated anxiety attacks, ordered hydroxyzine to hopefully relieve some discomfort. She is hypertensive, possibly due to increased fluid intake or related to level of pain. Will continue to monitor and see if hydroxyzine provides her any relief. * Continue clear liquid diet * Continue LR at mls/HR * Start Hydroxyzine 50 mg PO Q6H PRN * Continue Hydromorphone for severe pain * Continue zofran and compazine as needed * Monitor glucose and calcium levels with daily BMP Labs * Anion Gap 2.0, prev. 4.0 * Hgb 11.6, prev. 11.4 * Platelets 125, prev. 148 * WBC 3.9, prev. 5.6 * Calcium 8.0 (L) * Magnesium 1.5 (L) * Vitamin B12 208 (N) * Folate 8.3 (N) 08/[address] clear for any sign of obstruction. Continue bowel rest Continue LR at 200mls/HR IV Q5H Continue zofran and compazine as needed Adjusted pain medication to decrease daytime sedation: * Hydromorphone 1mg IVP Q2HR PRN for severe pain * Morphine 2mg IVP Q2HR PRN for severe pain Potassium was a low -- replenished with 40meq PO once Monitor glucose and calcium levels with daily BMP (2) Leg swelling: Impression: Right LE hypersensitivity is unchanged. Enlargement of left calf varicose vein. Her chart shows a hx of varicose veins and full work-up for possible deficiencies or mutations associated. All testing appears normal. * Continue to monitor her symptoms * Continue Lovenox 40 mg SUBQ daily 08/31 Venous ultrasound visualized thromboses in the superficial veins of the right lower extremity including in the great saphenous vein and distal calf varicose veins. Her pain is unchanged today in the right leg, however she reports calf pain in the left leg that started overnight. * Continue Lovenox 40 mg SUBQ daily -- anticoagulation not indicated at this time for superficial venous thrombosis. * Consider venous ultrasound of left leg to rule out DVT.
[2024-09-01] MEDS: HYDROmorphone 0.5 MG/0.5 ML SYRINGE IVP PRN (21:56)
[2024-09-02] MEDS: KETOROLAC 30 MG/ML VIAL IVP PRN (00:46)
[2024-09-02] MEDS: SODIUM CHLORIDE FLUSH 0.9% 10 ML SYRINGE IVP PRN (01:59)
[2024-09-02 05:50] LABS: BASOPHILS % (AUTO) 0.9 %; EOSINOPHILS # (AUTO) 0.2 10^3/uL (0.0-0.7); EOSINOPHILS % (AUTO) 4.6 %; HCT - HEMATOCRIT 34.6 % (37.0-47.0); HGB - HEMOGLOBIN 11.3 g/dL (12.0-16.0); LYMPHOCYTES # (AUTO) 1.2 10^3/uL (1.5-3.5); LYMPHOCYTES % (AUTO) 37.5 %; MEAN CORPUSCULAR HEMOGLOBIN 34.9 pg (27.0-31.0); MEAN CORPUSCULAR HGB CONC 32.7 g/dL (32.0-36.0); MEAN CORPUSCULAR VOLUME 106.8 fL (81.0-99.0); MONOCYTES # (AUTO) 0.4 10^3/uL (0.0-1.0); MONOCYTES % (AUTO) 12.8 %; NEUTROPHILS # (AUTO) 1.4 10^3/uL (1.5-6.6); NEUTROPHILS % (AUTO) 43.9 %; PLT - PLATELET COUNT 142 10^3/uL (130-450); RED BLOOD COUNT 3.24 10^6/uL (4.20-5.40); RED CELL DISTRIBUTION WIDTH 13.6 % (12.0-15.0); WHITE BLOOD COUNT 3.3 x10^3/uL (4.8-10.8)
[2024-09-02 06:02] LABS: CALCIUM 8.1 mg/dL (8.5-10.3); CREATININE 0.9 mg/dL (0.6-1.3); POTASSIUM 3.3 mmol/L (3.5-4.5)
[2024-09-02] MEDS: MAGNESIUM OXIDE 400 MG TABLET PO SCH (07:47)
[2024-09-02] MEDS: LIDOCAINE PATCH 4% TOP SCH (09:10)
[2024-09-02] MEDS: CYANOCOBALAMIN 500 MCG TABLET PO SCH (11:58)
[2024-09-02] MEDS: THIAMINE 100 MG TABLET PO SCH (11:58)
--- NOTE | 2024-09-02 14:23 | PROVIDER PROGRESS NOTE ---
Subjective Prog Note Date Prog Note Date: 09/02/24 Subjective Subjective: 38year old female with PMH significant for COPD, asthma, NAVID, alcohol use disorder, HTN, restless leg syndrome, GERD, fatty liver, depression, and arthritis.The patient was in great spirits today. She was making jokes and talking a lot. With the addition of hydroxyzine yesterday she reports few, if any, breathing problems and feels calmer. The cramping feeling in her legs has significantly improved with the addition of magnesium to her regimen. The topical hypersensitivity is improving and she is ambulating better. She may be able to tolerate compression stockings. During the exam, she was easily distracted and allowed for deeper palpation of her RUQ and RLQ. She has associated right flank pain that is tender to palpation but she is not having any urinary symptoms and has daily bowel movements, usually diarrhea. She is tolerating the clear liquid diet, so we will trial her on a low-fat diet today. At this point, if we can get her pain under control and she tolerates solids, she could be discharged in the next day or two. Only concern is her housing instability and access to resources including food and water. Current Medications Current Medications Current Medications: Current Medications Generic Name Dose Route Start Last Admin Trade Name Freq PRN Reason Stop Dose Admin Lipase/Protease/Amylase 3 cap 09/02/24 13:00 Lipase/Protease/Amylase Capsule PO TIDWM LUCY Cyanocobalamin 500 mcg 09/02/24 11:00 09/02/24 11:58 Cyanocobalamin 500 Mcg Tablet PO 500 mcg DAILY LUCY Administration Enoxaparin Sodium 40 mg 08/31/24 09:00 09/02/24 09:10 Enoxaparin 40 Mg/0.4 Ml Syringe SUBQ 40 mg DAILY LUCY Administration Famotidine 20 mg 08/31/24 14:00 09/02/24 09:11 Famotidine 20 Mg Tablet PO 20 mg BID LUCY Administration Hydromorphone HCl 1 mg 08/31/24 10:30 09/02/24 10:21 Hydromorphone 1 Mg/Ml Carpuject IVP 1 mg Q2H PRN Administration Pain 8 to 10 Hydromorphone HCl 0.5 mg 09/01/24 21:51 09/02/24 11:53 Hydromorphone 0.5 Mg/0.5 Ml Syringe IVP 0.5 mg Q2H PRN Administration Severe Pain (Level 7-10) Hydroxyzine Pamoate 50 mg 09/01/24 14:33 09/02/24 11:53 Hydroxyzine Pamoate 25 Mg Capsule PO 50 mg Q6H PRN Administration Insomnia Lactated Ringer's 1,000 mls @ 200 mls/hr 08/30/24 20:00 09/02/24 07:47 Lr IV 200 mls/hr .Q5H LUCY Administration Ketorolac Tromethamine 30 mg 09/01/24 21:52 09/02/24 07:47 Ketorolac 30 Mg/Ml Vial IVP 09/06/24 21:51 30 mg Q6HR PRN Administration Severe Pain (Level 7-10) Lidocaine 1 patch 09/02/24 09:00 09/02/24 09:10 Lidocaine Patch 4% TOP 1 patch DAILY LUCY Administration Magnesium Oxide 400 mg 09/02/24 08:00 09/02/24 07:47 Magnesium Oxide 400 Mg Tablet PO 400 mg DAILYWM LUCY Administration Ondansetron HCl 4 mg 08/30/24 19:57 Ondansetron Odt 4 Mg Tablet TL Q6HR PRN Nausea / Vomiting Ondansetron HCl 4 mg 08/30/24 19:57 09/02/24 12:24 Ondansetron 4 Mg/2 Ml Vial IVP 4 mg Q6HR PRN Administration Nausea / Vomiting Multivit/Folic Acid/Iron 1 tab 09/02/24 17:00 Vitamin Tablet PO DAILYWM [facility] Prochlorperazine Edisylate 10 mg 08/30/24 19:57 08/31/24 23:41 Prochlorperazine 10 Mg/2 Ml Vial IVP 10 mg Q6HR PRN Administration Nausea / Vomiting Sodium Chloride 10 ml 08/30/24 19:57 09/02/24 06:52 Sodium Chloride Flush 0.9% 10 Ml Syringe IVP 10 ml PRN PRN Administration NEEDED PER PROVIDER ORDERS Sodium Chloride 10 ml 08/31/24 01:00 09/02/24 09:11 Sodium Chloride Flush 0.9% 10 Ml Syringe IVP 10 ml 0100,0900,1700 LUCY Administration Thiamine HCl 100 mg 09/02/24 12:00 09/02/24 11:58 Thiamine 100 Mg Tablet PO 100 mg DAILY LUCY Administration Objective Vital Signs/Intake & Output Reviewed Vital Signs: Yes Vital Signs: Vital Signs x48h Temp Pulse Resp BP Pulse Ox 09/02/24 07:30 36.5 C 71 20 131/92 H 97 Intake & Output: Intake & Output 08/30/24 08/31/24 09/01/24 09/02/24 23:59 23:59 23:59 23:59 Intake Total 145 / 145 5890 / 5890 5910 / 5910 2887 / 2887 Output Total 300 / 300 1800 / 1800 4300 / 4300 1425 / 1425 Balance -155 / -155 4090 / 4090 1610 / 1610 1462 / 1462 Weight (kg) 86 kg Objective General Appearance: positive No acute distress and Alert Eyes Bilateral: positive Normal inspection, PERRL, EOMI, No lid inflammation, Conjunctivae nml and No scleral icterus ENT: positive ENT inspection nml, Pharynx nml and No signs of dehydration; negative Pharyngeal erythema Neck: positive Nml inspection and Trachea midline Respiratory: positive Chest non-tender, No respiratory distress and Breath sounds nml; negative Wheezes, Rales or Rhonchi Cardiovascular: positive Regular rate & rhythm, No murmur and No gallop Abdomen: positive Nml bowel sounds, No distention and Tenderness (RUQ, LLQ, and epigastric regions) Back: positive Other (Tenderness to palpation on right side. ) Skin: positive Color nml, No rash, Warm and Dry Extremities: positive Other (Swelling has decreased on right medial malleolus. Varicose vein on left calf is the same size. Hypersensitive to touch bilaterally. ) Neurologic/Psychiatric: positive Oriented x3, CN's nml (2-12), Motor nml, Sensation nml and Mood/affect nml Lab Results 09/02/24 05:16 09/02/24 05:16 Other Labs: Lab Results x24hrs 09/02/24 Range/Units 05:16 WBC 3.3 L (4.8-10.8) x10^3/uL RBC 3.24 L (4.20-5.40) 10^6/uL Hgb 11.3 L (12.0-16.0) g/dL Hct 34.6 L (37.0-47.0) % MCV 106.8 H (81.0-99.0) fL MCH 34.9 H (27.0-31.0) pg MCHC 32.7 (32.0-36.0) g/dL RDW 13.6 (12.0-15.0) % Plt Count 142 (130-450) 10^3/uL MPV 11.0 H (7.9-10.8) fL Neut # (Auto) 1.4 L (1.5-6.6) 10^3/uL Lymph # (Auto) 1.2 L (1.5-3.5) 10^3/uL [place] # (Auto) 0.4 (0.0-1.0) 10^3/uL Eos # (Auto) 0.2 (0.0-0.7) 10^3/uL Baso # (Auto) 0.0 (0.0-0.1) 10^3/uL Absolute Nucleated RBC 0.00 x10^3/uL Nucleated RBC % 0.0 /100WBC Sodium 137 (135-145) mmol/L Potassium 3.3 L (3.5-4.5) mmol/L Chloride 104 (101-111) mmol/L Carbon Dioxide 28 (21-32) mmol/L Anion Gap 5.0 L (6-13) BUN 3 L (6-20) mg/dL Creatinine 0.9 (0.6-1.3) mg/dL Estimated GFR (MDRD) 70 L (>89) Glucose 130 H (74-104) mg/dL Calcium 8.1 L (8.5-10.3) mg/dL Assessment/Plan Problem List (1) Acute on chronic pancreatitis: Impression: Pain is improving but I would like to get her medications timed better or start with a higher dose in the morning to reduce pain spikes when its almost time for her next dose. The hydroxyzine is helping with her anxiety so we will continue that. Her bowel movements are occurring more regularly and she is tolerating clear liquids well, so we have switched her to a low-fat diet. Initiate * Low-fat diet * Lidocaine 1 patch TOP daily * multivitamin * Vitamin B12 500 mcg PO daily * Vitamin B1 100 mg PO daily * Pancrelipase 3 cap PO TIDWM * Toradol Inj 30mg IVP Q6HR PRN Continue * LR at mls/HR * Hydroxyzine 50 mg PO Q6H PRN * Hydromorphone for severe pain * Zofran and compazine as needed * Monitor glucose and calcium levels with daily BMP 09/01 She is tolerating clear liquids well. With continued pain and mention of possible associated anxiety attacks, ordered hydroxyzine to hopefully relieve some discomfort. She is hypertensive, possibly due to increased fluid intake or related to level of pain. Will continue to monitor and see if hydroxyzine provides her any relief. * Continue clear liquid diet * Continue LR at mls/HR * Start Hydroxyzine 50 mg PO Q6H PRN * Continue Hydromorphone for severe pain * Continue zofran and compazine as needed * Monitor glucose and calcium levels with daily BMP (2) Leg swelling: Impression: The pain in her legs improved after we started her on magnesium. Still monitoring her varicose veins but they are stable, not worsening at this time. * Continue Magnesium 400 mg PO daily w/ meals * Consider compression stockings * Continue Lovenox 40 mg SUBQ daily 09/01 Right LE hypersensitivity is unchanged. Enlargement of left calf varicose vein. Her chart shows a hx of varicose veins and full work-up for possible deficiencies or mutations associated. All testing appears normal. * Continue to monitor her symptoms * Continue Lovenox 40 mg SUBQ daily
[2024-09-02] MEDS: LIPASE/PROTEASE/AMYLASE CAPSULE PO SCH (14:43)
[2024-09-02] MEDS: PRENATAL VITAMIN TABLET PO SCH (17:23)
[2024-09-02] MEDS: POTASSIUM CHLORIDE 20 MEQ TABLET PO ONE (17:26)
[2024-09-03 06:02] LABS: BASOPHILS # (AUTO) 0.1 10^3/uL (0.0-0.1); BASOPHILS % (AUTO) 1.3 %; EOSINOPHILS # (AUTO) 0.2 10^3/uL (0.0-0.7); EOSINOPHILS % (AUTO) 5.4 %; HCT - HEMATOCRIT 37.1 % (37.0-47.0); LYMPHOCYTES # (AUTO) 1.2 10^3/uL (1.5-3.5); LYMPHOCYTES % (AUTO) 30.9 %; MEAN CORPUSCULAR HEMOGLOBIN 34.9 pg (27.0-31.0); MEAN CORPUSCULAR HGB CONC 32.3 g/dL (32.0-36.0); MEAN CORPUSCULAR VOLUME 107.8 fL (81.0-99.0); MEAN PLATELET VOLUME 10.9 fL (7.9-10.8); MONOCYTES # (AUTO) 0.5 10^3/uL (0.0-1.0); MONOCYTES % (AUTO) 12.9 %; NEUTROPHILS # (AUTO) 1.9 10^3/uL (1.5-6.6); NEUTROPHILS % (AUTO) 49.2 %; PLT - PLATELET COUNT 160 10^3/uL (130-450); RED BLOOD COUNT 3.44 10^6/uL (4.20-5.40); RED CELL DISTRIBUTION WIDTH 13.8 % (12.0-15.0); WHITE BLOOD COUNT 3.9 x10^3/uL (4.8-10.8)
[2024-09-03 06:19] LABS: CALCIUM 8.5 mg/dL (8.5-10.3); CREATININE 0.8 mg/dL (0.6-1.3)
[2024-09-03] MEDS: ESCITALOPRAM 10 MG TABLET PO SCH (08:05)
[2024-09-03] MEDS: ONDANSETRON ODT 4 MG TABLET TL PRN (09:28)
--- NOTE | 2024-09-03 13:48 | PROVIDER PROGRESS NOTE ---
Subjective Prog Note Date Prog Note Date: 09/03/24 Subjective Subjective: She continues to have 7-8/10 pain in her left upper quadrant and epigastrium, that is worse through the day, but she feels that it is not worsened by meals. Her baseline/tolerable level of pain is a 5-6/10 Current Medications Current Medications Current Medications: Current Medications Generic Name Dose Route Start Last Admin Trade Name Freq PRN Reason Stop Dose Admin Lipase/Protease/Amylase 3 cap 09/02/24 13:00 09/03/24 11:55 Lipase/Protease/Amylase Capsule PO 3 cap TIDWM LUCY Administration Cyanocobalamin 500 mcg 09/02/24 11:00 09/02/24 17:23 Cyanocobalamin 500 Mcg Tablet PO 500 mcg DAILY LUCY Administration Enoxaparin Sodium 40 mg 08/31/24 09:00 09/03/24 08:05 Enoxaparin 40 Mg/0.4 Ml Syringe SUBQ 40 mg DAILY LUCY Administration Escitalopram Oxalate 20 mg 09/03/24 09:00 09/03/24 08:05 Escitalopram 10 Mg Tablet PO 20 mg DAILY LUCY Administration Famotidine 20 mg 08/31/24 14:00 09/03/24 08:04 Famotidine 20 Mg Tablet PO 20 mg BID LUCY Administration Hydromorphone HCl 1 mg 08/31/24 10:30 09/03/24 11:56 Hydromorphone 1 Mg/Ml Carpuject IVP 1 mg Q2H PRN Administration Pain 8 to 10 Hydromorphone HCl 0.5 mg 09/01/24 21:51 09/03/24 13:16 Hydromorphone 0.5 Mg/0.5 Ml Syringe IVP 0.5 mg Q2H PRN Administration Severe Pain (Level 7-10) Hydroxyzine Pamoate 50 mg 09/01/24 14:33 09/03/24 00:36 Hydroxyzine Pamoate 25 Mg Capsule PO 50 mg Q6H PRN Administration Insomnia Ketorolac Tromethamine 30 mg 09/01/24 21:52 09/03/24 09:28 Ketorolac 30 Mg/Ml Vial IVP 09/06/24 21:51 30 mg Q6HR PRN Administration Severe Pain (Level 7-10) Lidocaine 1 patch 09/02/24 09:00 09/03/24 09:28 Lidocaine Patch 4% TOP 1 patch DAILY LUCY Administration Magnesium Oxide 400 mg 09/02/24 08:00 09/03/24 08:05 Magnesium Oxide 400 Mg Tablet PO 400 mg DAILYWM LUCY Administration Ondansetron HCl 4 mg 08/30/24 19:57 09/03/24 09:28 Ondansetron Odt 4 Mg Tablet TL 4 mg Q6HR PRN Administration Nausea / Vomiting Multivit/Folic Acid/Iron 1 tab 09/02/24 17:00 09/03/24 08:05 Vitamin Tablet PO 1 tab DAILYWM LUCY Administration Prochlorperazine Edisylate 10 mg 08/30/24 19:57 09/03/24 00:37 Prochlorperazine 10 Mg/2 Ml Vial IVP 10 mg Q6HR PRN Administration Nausea / Vomiting Sodium Chloride 10 ml 08/30/24 19:57 09/02/24 23:02 Sodium Chloride Flush 0.9% 10 Ml Syringe IVP 10 ml PRN PRN Administration NEEDED PER PROVIDER ORDERS Sodium Chloride 10 ml 08/31/24 01:00 09/03/24 08:06 Sodium Chloride Flush 0.9% 10 Ml Syringe IVP 10 ml 0100,0900,1700 LUCY Administration Thiamine HCl 100 mg 09/02/24 12:00 09/03/24 08:05 Thiamine 100 Mg Tablet PO 100 mg DAILY LUCY Administration Objective Vital Signs/Intake & Output Reviewed Vital Signs: Yes Vital Signs: Vital Signs x48h Temp Pulse Resp BP Pulse Ox 09/03/24 08:34 36.7 C 79 16 132/102 H 94 Intake & Output: Intake & Output 08/31/24 09/01/24 09/02/24 09/03/24 23:59 23:59 23:59 23:59 Intake Total 5890 / 5890 5910 / 5910 6197 / 6197 360 / 360 Output Total 1800 / 1800 4300 / 4300 2325 / 2325 1400 / 1400 Balance 4090 / 4090 1610 / 1610 3872 / 3872 -1040 / -1040 Objective General Appearance: positive No acute distress and Alert Eyes Bilateral: positive Normal inspection, Conjunctivae nml and No scleral icterus ENT: positive ENT inspection nml Neck: positive Nml inspection and Trachea midline Respiratory: positive No respiratory distress, Breath sounds nml, Wheezes, Rales and Rhonchi Cardiovascular: positive Regular rate & rhythm Abdomen: positive Nml bowel sounds, No distention and Tenderness (RUQ, LLQ, and epigastric regions) Back: positive Other (Tenderness to palpation on right side. ) Skin: positive Color nml, No rash, Warm and Dry Extremities: positive Other (Swelling has decreased on right medial malleolus. Varicose vein on left calf is the same size. Hypersensitive to touch bilaterally. ) Neurologic/Psychiatric: positive Oriented x3, Motor nml, Sensation nml and Mood/affect nml Lab Results 09/03/24 05:29 09/03/24 16:41 Other Labs: Lab Results x24hrs 09/03/24 Range/Units 05:29 WBC 3.9 L (4.8-10.8) x10^3/uL RBC 3.44 L (4.20-5.40) 10^6/uL Hgb 12.0 (12.0-16.0) g/dL Hct 37.1 (37.0-47.0) % MCV 107.8 H (81.0-99.0) fL MCH 34.9 H (27.0-31.0) pg MCHC 32.3 (32.0-36.0) g/dL RDW 13.8 (12.0-15.0) % Plt Count 160 (130-450) 10^3/uL MPV 10.9 H (7.9-10.8) fL Neut # (Auto) 1.9 (1.5-6.6) 10^3/uL Lymph # (Auto) 1.2 L (1.5-3.5) 10^3/uL [place] # (Auto) 0.5 (0.0-1.0) 10^3/uL Eos # (Auto) 0.2 (0.0-0.7) 10^3/uL Baso # (Auto) 0.1 (0.0-0.1) 10^3/uL Absolute Nucleated RBC 0.00 x10^3/uL Nucleated RBC % 0.0 /100WBC Sodium 137 (135-145) mmol/L Potassium 4.0 (3.5-4.5) mmol/L Chloride 104 (101-111) mmol/L Carbon Dioxide 27 (21-32) mmol/L Anion Gap 6.0 (6-13) BUN 5 L (6-20) mg/dL Creatinine 0.8 (0.6-1.3) mg/dL Estimated GFR (MDRD) 81 L (>89) Glucose 119 H (74-104) mg/dL Calcium 8.5 (8.5-10.3) mg/dL Assessment/Plan Problem List (1) Acute on chronic pancreatitis: Impression: Pain is improving. . The hydroxyzine is helping with her anxiety so we will continue that. Her bowel movements are occurring more regularly and she is tolerating a diet. 6 doses of IV dilaudid 1mg and 6 doses of dilaudid 0.5mg in the last 24 hours. Still requiring parenteral narcotics, but as mentioned above, her pain level is coming down. She is also improving in that she is tolerating a diet. Toradol a useful adjunct to pain control. (2) Leg swelling: Impression: The pain in her legs improved after we started her on magnesium. Still monitoring her varicose veins but they are stable, not worsening at this time. * Continue Magnesium 400 mg PO daily w/ meals * Continue Lovenox 40 mg SUBQ daily for DVT prophylaxis (3) Hyperglycemia: Impression: Consistently w elevated blood sugar on chemistry. will check A1C with AM labs. Laboratory Tests 08/31/24 09/01/24 09/02/24 05:08 05:32 05:16 Glucose 112 H 112 H 130 H 09/03/24 09/03/24 05:29 16:41 Glucose 119 H 135 H I have spent 50 minutes in the care of this patient today. This includes time [id number], review and ordering of diagnostic imaging and laboratory studies.. Monitoring the patient's signs symptoms, evaluation of medication effectiveness and patient's response to treatment.
[2024-09-03 17:29] LABS: ALBUMIN/GLOBULIN RATIO 1.2 (1.0-2.2); BILIRUBIN,TOTAL 0.3 mg/dL (0.2-1.0); CALCIUM 8.5 mg/dL (8.5-10.3); CREATININE 0.9 mg/dL (0.6-1.3); POTASSIUM 3.9 mmol/L (3.5-4.5); TOTAL PROTEIN 5.5 g/dL (6.4-8.9)
[2024-09-04 05:51] LABS: BASOPHILS % (AUTO) 0.8 %; EOSINOPHILS # (AUTO) 0.3 10^3/uL (0.0-0.7); EOSINOPHILS % (AUTO) 5.6 %; HCT - HEMATOCRIT 38.6 % (37.0-47.0); HGB - HEMOGLOBIN 12.7 g/dL (12.0-16.0); LYMPHOCYTES # (AUTO) 1.8 10^3/uL (1.5-3.5); LYMPHOCYTES % (AUTO) 37.9 %; MEAN CORPUSCULAR HEMOGLOBIN 35.2 pg (27.0-31.0); MEAN CORPUSCULAR HGB CONC 32.9 g/dL (32.0-36.0); MEAN CORPUSCULAR VOLUME 106.9 fL (81.0-99.0); MEAN PLATELET VOLUME 11.1 fL (7.9-10.8); MONOCYTES # (AUTO) 0.6 10^3/uL (0.0-1.0); MONOCYTES % (AUTO) 12.6 %; NEUTROPHILS # (AUTO) 2.1 10^3/uL (1.5-6.6); NEUTROPHILS % (AUTO) 42.9 %; PLT - PLATELET COUNT 212 10^3/uL (130-450); RED BLOOD COUNT 3.61 10^6/uL (4.20-5.40); RED CELL DISTRIBUTION WIDTH 13.7 % (12.0-15.0); WHITE BLOOD COUNT 4.9 x10^3/uL (4.8-10.8)
[2024-09-04 06:09] LABS: CALCIUM 8.3 mg/dL (8.5-10.3); CREATININE 0.8 mg/dL (0.6-1.3); POTASSIUM 3.8 mmol/L (3.5-4.5)
[2024-09-04 13:01] LABS: ESTIMATED AVERAGE GLUCOSE 114 mg/dL (70-100); HEMOGLOBIN A1c% 5.6 % (4.27-6.07)
--- NOTE | 2024-09-04 13:02 | PROVIDER PROGRESS NOTE ---
Subjective Prog Note Date Prog Note Date: 09/04/24 Subjective Subjective: She is eating lunch. She is tolerating a diet. has occasional substernal and epigastric discomfort. she thinks that pepcid does help with these. She feels that the hydroxyzine is helping lots for her anxiety. I reassured her that she could be discharged on this med. Current Medications Current Medications Current Medications: Current Medications Generic Name Dose Route Start Last Admin Trade Name Freq PRN Reason Stop Dose Admin Lipase/Protease/Amylase 3 cap 09/02/24 13:00 09/04/24 12:06 Lipase/Protease/Amylase Capsule PO 3 cap TIDWM LUCY Administration Cyanocobalamin 500 mcg 09/02/24 11:00 09/04/24 08:09 Cyanocobalamin 500 Mcg Tablet PO 500 mcg DAILY LUCY Administration Enoxaparin Sodium 40 mg 08/31/24 09:00 09/04/24 08:08 Enoxaparin 40 Mg/0.4 Ml Syringe SUBQ 40 mg DAILY LUCY Administration Escitalopram Oxalate 20 mg 09/03/24 09:00 09/04/24 08:09 Escitalopram 10 Mg Tablet PO 20 mg DAILY LUCY Administration Famotidine 20 mg 08/31/24 14:00 09/04/24 08:09 Famotidine 20 Mg Tablet PO 20 mg BID LUCY Administration Hydromorphone HCl 1 mg 08/31/24 10:30 09/04/24 10:59 Hydromorphone 1 Mg/Ml Carpuject IVP 09/04/24 18:00 1 mg Q2H PRN Administration Pain 8 to 10 Hydromorphone HCl 0.5 mg 09/01/24 21:51 09/04/24 09:08 Hydromorphone 0.5 Mg/0.5 Ml Syringe IVP 0.5 mg Q2H PRN Administration Severe Pain (Level 7-10) Hydroxyzine Pamoate 50 mg 09/01/24 14:33 09/04/24 09:08 Hydroxyzine Pamoate 25 Mg Capsule PO 50 mg Q6H PRN Administration Insomnia Ketorolac Tromethamine 30 mg 09/01/24 21:52 09/04/24 12:02 Ketorolac 30 Mg/Ml Vial IVP 09/06/24 21:51 30 mg Q6HR PRN Administration Severe Pain (Level 7-10) Lidocaine 1 patch 09/02/24 09:00 09/04/24 08:08 Lidocaine Patch 4% TOP 1 patch DAILY LUCY Administration Magnesium Oxide 400 mg 09/02/24 08:00 09/04/24 08:09 Magnesium Oxide 400 Mg Tablet PO 400 mg DAILYWM LUCY Administration Ondansetron HCl 4 mg 08/30/24 19:57 09/04/24 12:03 Ondansetron Odt 4 Mg Tablet TL 4 mg Q6HR PRN Administration Nausea / Vomiting Oxycodone HCl 10 mg 09/04/24 18:00 Oxycodone 5 Mg Tablet PO Q4HR PRN Moderate Pain (Level 4-6) Multivit/Folic Acid/Iron 1 tab 09/02/24 17:00 09/04/24 08:09 Vitamin Tablet PO 1 tab DAILYWM LUCY Administration Prochlorperazine Edisylate 10 mg 08/30/24 19:57 09/03/24 00:37 Prochlorperazine 10 Mg/2 Ml Vial IVP 10 mg Q6HR PRN Administration Nausea / Vomiting Sodium Chloride 10 ml 08/30/24 19:57 09/02/24 23:02 Sodium Chloride Flush 0.9% 10 Ml Syringe IVP 10 ml PRN PRN Administration NEEDED PER PROVIDER ORDERS Sodium Chloride 10 ml 08/31/24 01:00 09/04/24 08:10 Sodium Chloride Flush 0.9% 10 Ml Syringe IVP Not Given 0100,0900,1700 LUCY Thiamine HCl 100 mg 09/02/24 12:00 09/04/24 08:09 Thiamine 100 Mg Tablet PO 100 mg DAILY LUCY Administration Objective Vital Signs/Intake & Output Reviewed Vital Signs: Yes Vital Signs: Vital Signs x48h Temp Pulse Resp BP Pulse Ox 09/04/24 07:34 36.5 C 82 16 116/88 97 Intake & Output: Intake & Output 09/01/24 09/02/24 09/03/24 09/04/24 23:59 23:59 23:59 23:59 Intake Total 5910 / 5910 6197 / 6197 1616 / 1616 620 / 620 Output Total 4300 / 4300 2325 / 2325 1700 / 1700 Balance 1610 / 1610 3872 / 3872 -84 / -84 620 / 620 Objective General Appearance: positive No acute distress and Alert Eyes Bilateral: positive Normal inspection ENT: positive ENT inspection nml Neck: positive Nml inspection Respiratory: positive Chest non-tender and Breath sounds nml Cardiovascular: positive Regular rate & rhythm Abdomen: positive Tenderness (epigastric and LUQ) Skin: positive Color nml and Other (small blister, dorsal left great toe) Extremities: positive Non-tender, No pedal edema and Other (chronic varicose veins) Neurologic/Psychiatric: positive Oriented x3 Lab Results 09/04/24 05:14 09/04/24 05:14 Other Labs: Lab Results x24hrs 09/04/24 09/03/24 Range/Units 05:14 16:41 WBC 4.9 (4.8-10.8) x10^3/uL RBC 3.61 L (4.20-5.40) 10^6/uL Hgb 12.7 (12.0-16.0) g/dL Hct 38.6 (37.0-47.0) % MCV 106.9 H (81.0-99.0) fL MCH 35.2 H (27.0-31.0) pg MCHC 32.9 (32.0-36.0) g/dL RDW 13.7 (12.0-15.0) % Plt Count 212 (130-450) 10^3/uL MPV 11.1 H (7.9-10.8) fL Neut # (Auto) 2.1 (1.5-6.6) 10^3/uL Lymph # (Auto) 1.8 (1.5-3.5) 10^3/uL [place] # (Auto) 0.6 (0.0-1.0) 10^3/uL Eos # (Auto) 0.3 (0.0-0.7) 10^3/uL Baso # (Auto) 0.0 (0.0-0.1) 10^3/uL Absolute Nucleated RBC 0.00 x10^3/uL Nucleated RBC % 0.0 /100WBC Sodium 134 L 135 (135-145) mmol/L Potassium 3.8 3.9 (3.5-4.5) mmol/L Chloride 103 103 (101-111) mmol/L Carbon Dioxide 27 27 (21-32) mmol/L Anion Gap 4.0 L 5.0 L (6-13) BUN 6 6 (6-20) mg/dL Creatinine 0.8 0.9 (0.6-1.3) mg/dL Estimated GFR (MDRD) 81 L 70 L (>89) Glucose 110 H 135 H (74-104) mg/dL Calcium 8.3 L 8.5 (8.5-10.3) mg/dL Total Bilirubin 0.3 (0.2-1.0) mg/dL AST 23 (10-42) IU/L ALT 10 (10-60) IU/L Alkaline Phosphatase 101 (42-121) IU/L Total Protein 5.5 L (6.4-8.9) g/dL Albumin 3.0 L (3.2-5.5) g/dL Globulin 2.5 (2.1-4.2) g/dL Albumin/Globulin Ratio 1.2 (1.0-2.2) Assessment/Plan Problem List (1) Acute on chronic pancreatitis: Impression: Pain is improving. . The hydroxyzine is helping with her anxiety so we will continue that. Her bowel movements are occurring more regularly and she is tolerating a diet. 5 doses of Dilaudid 0.5 mg over the last 24 hours. 7 doses of Dilaudid 1 mg over the last 24 hours. She has received 9-1/2 mg of Dilaudid parenterally over the last 24 hours. Toradol remains a useful adjunct to control her pain. Still requiring parenteral narcotics, but as mentioned above, her pain level is coming down. 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 I will leave the Dilaudid 0.5 mg doses on the chart as needed overnight for breakthrough. I reassured her that I can give her oral Toradol for the remainder of 5 days on discharge home. Continues to tolerate diet (2) Leg swelling: Impression: The pain in her legs improved after we started her on magnesium. Still monitoring her varicose veins but they are stable, not worsening at this time. * Continue Magnesium 400 mg PO daily w/ meals * Continue Lovenox 40 mg SUBQ daily for DVT prophylaxis (3) Hyperglycemia: Impression: Consistently w elevated blood sugar on chemistry. Hgb A1C is 5.6%, this is just below pre diabetic. Would recommend annual monitoring. 08/31/24 09/01/24 09/02/24 05:08 05:32 05:16 Glucose 112 H 112 H 130 H 09/03/24 09/03/24 05:29 16:41 Glucose 119 H 135 H I have spent 28 minutes in the care of this patient today. This includes time [id number], review and ordering of diagnostic imaging and laboratory studies.. Monitoring the patient's signs symptoms, evaluation of medication effectiveness and patient's response to treatment.
[2024-09-04] MEDS: oxyCODONE 5 MG TABLET PO PRN (18:59)
[2024-09-05] MEDS ORDERED: HYDROmorphone 1 MG/ML CARPUJECT IVP ONE (10:01)
--- NOTE | 2024-09-05 12:20 | PROVIDER PROGRESS NOTE ---
Subjective Prog Note Date Prog Note Date: 09/05/24 Subjective Subjective: tearful today due to abdominal pain . She has been independent to the bathroom, and even tallys her voiding on the white board when she gets up to go. She is moving her bowels, and denies diarrhea or constipation. She is tolerating a regular diet. Current Medications Current Medications Current Medications: Current Medications Generic Name Dose Route Start Last Admin Trade Name Freq PRN Reason Stop Dose Admin Lipase/Protease/Amylase 3 cap 09/02/24 13:00 09/05/24 12:07 Lipase/Protease/Amylase Capsule PO 3 cap TIDWM LUCY Administration Cyanocobalamin 500 mcg 09/02/24 11:00 09/05/24 07:46 Cyanocobalamin 500 Mcg Tablet PO 500 mcg DAILY LUCY Administration Enoxaparin Sodium 40 mg 08/31/24 09:00 09/05/24 07:44 Enoxaparin 40 Mg/0.4 Ml Syringe SUBQ 40 mg DAILY LUCY Administration Escitalopram Oxalate 20 mg 09/03/24 09:00 09/05/24 07:46 Escitalopram 10 Mg Tablet PO 20 mg DAILY LUCY Administration Famotidine 20 mg 08/31/24 14:00 09/05/24 07:45 Famotidine 20 Mg Tablet PO 20 mg BID LUCY Administration Hydromorphone HCl 0.5 mg 09/01/24 21:51 09/05/24 12:07 Hydromorphone 0.5 Mg/0.5 Ml Syringe IVP 0.5 mg Q2H PRN Administration Severe Pain (Level 7-10) Hydromorphone HCl 2 mg 09/05/24 12:15 Hydromorphone 2 Mg Tablet PO Q4H PRN Severe Pain (Level 7-10) Hydroxyzine Pamoate 50 mg 09/01/24 14:33 09/05/24 07:46 Hydroxyzine Pamoate 25 Mg Capsule PO 50 mg Q6H PRN Administration Insomnia Ketorolac Tromethamine 30 mg 09/01/24 21:52 09/05/24 05:42 Ketorolac 30 Mg/Ml Vial IVP 09/06/24 21:51 30 mg Q6HR PRN Administration Severe Pain (Level 7-10) Lidocaine 1 patch 09/02/24 09:00 09/05/24 07:43 Lidocaine Patch 4% TOP 1 patch DAILY LUCY Administration Magnesium Oxide 400 mg 09/02/24 08:00 09/05/24 07:45 Magnesium Oxide 400 Mg Tablet PO 400 mg DAILYWM LUCY Administration Ondansetron HCl 4 mg 08/30/24 19:57 09/04/24 21:55 Ondansetron Odt 4 Mg Tablet TL 4 mg Q6HR PRN Administration Nausea / Vomiting Multivit/Folic Acid/Iron 1 tab 09/02/24 17:00 09/05/24 07:46 Vitamin Tablet PO 1 tab DAILYWM LUCY Administration Prochlorperazine Edisylate 10 mg 08/30/24 19:57 09/03/24 00:37 Prochlorperazine 10 Mg/2 Ml Vial IVP 10 mg Q6HR PRN Administration Nausea / Vomiting Sodium Chloride 10 ml 08/30/24 19:57 09/05/24 05:43 Sodium Chloride Flush 0.9% 10 Ml Syringe IVP 10 ml PRN PRN Administration NEEDED PER PROVIDER ORDERS Sodium Chloride 10 ml 08/31/24 01:00 09/05/24 07:46 Sodium Chloride Flush 0.9% 10 Ml Syringe IVP 10 ml 0100,0900,1700 LUCY Administration Thiamine HCl 100 mg 09/02/24 12:00 09/05/24 07:45 Thiamine 100 Mg Tablet PO 100 mg DAILY LUCY Administration Objective Vital Signs/Intake & Output Reviewed Vital Signs: Yes Vital Signs: Vital Signs x48h Temp Pulse Resp BP Pulse Ox 09/05/24 07:30 36.6 C 85 18 128/84 95 Intake & Output: Intake & Output 09/02/24 09/03/24 09/04/24 09/05/24 23:59 23:59 23:59 23:59 Intake Total 6197 / 6197 1616 / 1616 2199 / 2199 568 / 568 Output Total 2325 / 2325 1700 / 1700 Balance 3872 / 3872 -84 / -84 2199 568 / 568 Objective General Appearance: positive No acute distress and Alert Eyes Bilateral: positive Normal inspection ENT: positive ENT inspection nml Neck: positive Nml inspection Respiratory: positive Chest non-tender and Breath sounds nml Cardiovascular: positive Regular rate & rhythm Abdomen: positive Tenderness (epigastric and LUQ) Skin: positive Color nml and Other (small blister, dorsal left great toe) Extremities: positive Non-tender, No pedal edema and Other (chronic varicose veins) Neurologic/Psychiatric: positive Oriented x3 Lab Results 09/04/24 05:14 09/04/24 05:14 Other Labs: Lab Results x24hrs 09/04/24 Range/Units 05:14 Estimat Average Glucose 114 H (70-100) mg/dL Hemoglobin A1c % 5.6 (4.27-6.07) % Assessment/Plan Problem List (1) Acute on chronic pancreatitis: Impression: Tearful today due to abdominal pain. medication as ordered is not working according to the patient. The hydroxyzine is helping with her anxiety so we will continue that. Her bowel movements are occurring more regularly and she is tolerating a diet. Pain meds over the last 24 hours: Toradol 30mg (3 doses), Dilaudid 0.5mg IV (7doses), 1mg IV one dose, and oxycodone 10mg- 4 doses, This is 82.5MME per day- in addition to non opioid analgesia. I am adding Ofirmev as well. remote hx of tylenol overdose (not intentional). Changing to po dilaudid, reviewed records, and this appears to be the discharge med that worked (2mg #10 tabs) several years ago. I reassured her that I can give her oral Toradol for the remainder of 5 days on discharge home. (2) Leg swelling: Impression: The pain in her legs improved after we started her on magnesium. Still monitoring her varicose veins but they are stable, not worsening at this time. * Continue Magnesium 400 mg PO daily w/ meals * Continue Lovenox 40 mg SUBQ daily for DVT prophylaxis (3) Hyperglycemia: Impression: Consistently w elevated blood sugar on chemistry. Hgb A1C is 5.6%, this is just below pre diabetic. Would recommend annual monitoring. No changes to this recommendation. Lab holiday today 08/31/24 09/01/24 09/02/24 05:08 05:32 05:16 Glucose 112 H 112 H 130 H 09/03/24 09/03/24 05:29 16:41 Glucose 119 H 135 H I have spent 26 minutes in the care of this patient today. This includes time [id number], review and ordering of diagnostic imaging and laboratory studies. Monitoring the patient's signs symptoms, evaluation of medication effectiveness and patient's response to treatment.
[2024-09-05] MEDS: HYDROmorphone 2 MG TABLET PO PRN (16:21)
[2024-09-05] MEDS: ACETAMINOPHEN 1,000 MG/100 ML 1,000 MG/100 ML BAG IV PRN (17:40)
[2024-09-05 23:40] VITALS: O2SAT 97
[2024-09-06 08:14] VITALS: BP 138/97; TEMP 97.9
--- NOTE | 2024-09-06 12:16 | Discharge Summary ---
"Discharge Summary Admit Date: 08/30/24 Discharge Date: 09/06/24 Discharging Provider: Breanna Hernandez PA-C Primary Care Provider: ADRIAN Vidales Code Status: Attempt Resuscitation DIAGNOSES Discharge Diagnoses with Status of Each Condition: Acute on chronic pancreatitis, abdominal pain improved on discharge. Recommend further counseling on low-fat diet and alcohol avoidance in the primary care environment Lower extremity swelling, no DVT. Symptomatic treatment, leg elevation Hyperglycemia hemoglobin A1c 5.6%. 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 She has been seen 6 times since July in the ER, with progressively worsening symptoms. She reports an unhealthy diet, stating she eats a lot of fast foods. In the ER, her lipase was noted to be 827. CT abdomen/pelvis from 08/28/2024 shows no pancreatic ductal dilation, unremarkable gallbladder. Hospitalist was contacted for observation for acute pancreatitis CONSULTS | PROCEDURES Procedures: CT of the abdomen pelvis done 2 days prior to admission does not show pancreatic inflammation. Right lower extremity venous duplex for calf pain and swelling shows no DVT. There is right lower extremity superficial venous thrombosis including the greater saphenous vein and distal calf varicose veins. HOSPITAL COURSE Hospital Course: Acute on chronic pancreatitis Chronic abdominal pain. She was treated with combination of narcotics, Toradol and antianxiety hydroxyzine. Also use Tylenol as an adjunct. Her pain improved to the point that she was able to be controlled with oral medications and she was discharged home on oral medications. She denies excessive alcohol use although she did have several drinks recently. She also admits to a high fat high carbohydrate diet which may have exacerbated this. Lower extremity swelling. Had venous duplex of the right lower extremity. There was superficial venous thrombosis but no deep venous thrombosis. She was treated symptomatically. Hyperglycemia. Persistently elevated blood sugars on chemistries. Therefore I checked an A1c. Her hemoglobin A1c was 5.6%. Would recommend primary care counseling and monitoring. ALLERGIES Allergies Allergy/AdvReac Type Severity Reaction Status Date / Time No Known Drug Allergies Allergy Verified 08/30/24 14:56 MEDICATIONS Ambulatory Orders Medication Instructions Recorded Confirmed escitalopram oxalate 20 mg tablet 20 mg PO DAILY 07/07/23 08/31/24 famotidine 20 mg tablet 20 mg PO BID #60 tabs 09/06/24 hydromorphone 2 mg tablet 2 mg PO Q4H PRN Severe Pain (Level 09/06/24 7-10) #10 tabs hydroxyzine pamoate 25 mg capsule 50 mg (2 x 25 mg) PO Q6H PRN 09/06/24 Insomnia #90 caps ketorolac 10 mg tablet 10 mg PO QID PRN pain #4 tabs 09/06/24 lidocaine 4 % topical patch 1 patch topical DAILY #30 ea 09/06/24 aimkol-mcthmumy-eesruyy 1 cap PO TIDWM #90 caps 09/06/24 08/31/24 5,000-17,000-24,000 unit capsule, delayed rel (Zenpep) ondansetron HCl 4 mg tablet 4 mg PO Q8H PRN nausea and 09/06/24 08/31/24 vomiting #30 tabs vit,calcium 27-ferrous 1 tab PO DAILYWM #30 tabs 09/06/24 fum 60 mg iron-folic acid 1 mg tablet (Trinatal Rx 1) PHYSICAL EXAM AT DISCHARGE Physical Exam Other/Comments: General Appearance: positive No acute distress and Alert Eyes Bilateral: positive Normal inspection ENT: positive ENT inspection nml Neck: positive Nml inspection Respiratory: positive Chest non-tender and Breath sounds nml Cardiovascular: positive Regular rate & rhythm Abdomen: positive Tenderness (epigastric and LUQ) Skin: positive Color nml and Other (small blister, dorsal left great toe) Extremities: positive Non-tender, No pedal edema and Other (chronic varicose veins) Neurologic/Psychiatric: positive Oriented x3 LABS 09/04/24 05:14 09/04/24 05:14 FOLLOW UP Follow Up: PCP, [employer] Benji, 7-10 d TIME SPENT Time Spent in Discharge (Minutes): 35 Discharge Plan Discharge Patient Disposition: Home, Self Care Condition: Stable Prescriptions: New famotidine 20 mg Tablet 20 mg PO BID Qty: 60 0RF hydromorphone 2 mg Tablet 2 mg PO Q4H PRN (Reason: Severe Pain (Level 7-10)) Qty: 10 0RF hydroxyzine pamoate 25 mg Capsule 50 mg PO Q6H PRN (Reason: Insomnia) Qty: 90 1RF ketorolac 10 mg tablet 10 mg PO QID PRN (Reason: pain) Qty: 4 0RF Rx Instructions: maximum total duration of 5 days from all oral, intranasal, or parenteral formulations lidocaine 4 % Adhesive Patch,Medicated 1 patch topical DAILY Qty: 30 2RF Trinatal Rx 1 60 mg iron-1 mg Tablet 1 tab PO DAILYWM Qty: 30 3RF Continued escitalopram oxalate 20 MG tablet 20 mg PO DAILY ondansetron HCl 4 mg tablet 4 mg PO Q8H PRN (Reason: nausea and vomiting) Qty: 30 0RF Zenpep 1 CAP capsule,delayed release(DR/EC) 1 cap PO TIDWM Qty: 90 3RF Activity Restrictions: No Restrictions Diet: Cardiac Health Concerns: You are a 38-year-old female with a history of alcohol abuse. You had a recurrence of your pancreatitis. I think it was probably a combination of poor diet and some alcohol use. You have been in the hospital now for 8 days. During this time we have slowly advanced her diet and now you are tolerating a regular low-fat diet. You have been given pain medication IV and we have slowly advanced you onto oral pain medications. I think you will always have some degree of abdominal pain. As you leave the hospital it is important to stick to a low-fat diet with plenty of dietary fiber. You should avoid all alcohol always. Drinking will only put you into a downward spiral that could ultimately end in your . When you are ready, you need to talk to your primary care provider about smoking cessation. This could also be a positive change in your life that will help you feel better. Since you have been here you have had an ultrasound on your leg to rule out blood clot. You did not have any deep venous blood clot. I was also concerned because your blood sugar seemed a bit high. I checked you for diabetes and you do not have diabetes. Your hemoglobin A1c level is 5.6. You are below prediabetes but you are also very close to being prediabetic. For this reason I would recommend that you avoid lots of simple carbohydrates in your diet. I recommend that she see your primary care provider, Agnes Leblanc within 7 to 10 days of hospital discharge. I would like her to check in with you make sure that the medications we discharged you on are working the way they are intended and that you are doing okay. New medications on discharge are famotidine which is something to help with stomach acid, hydromorphone for pain, hydroxyzine for anxiety, I am giving you 4 tablets of ketorolac this is like a very strong ibuprofen and you should take it with food., Lidocaine patches and vitamins. The reason I am putting you on vitamins is to help with iron and B vitamins which can be helpful when you have problems that lead to malnutrition. I want you could to continue your pancreatic enzymes, as well as antinausea medication as needed. I also want you to continue your your escitalopram. Print Language: Rw[place]an Patient Instructions: Pancreatitis Follow-up Care: Sylwia Leblanc ARNP [Primary Care Provider] -"
== END 2024-09-06 13:20 | disposition home or self-care (01) | DRG 440 ==
LOC: MS2 14:52 → ED 14:52 → MS2 20:27
PROVIDERS: ADMIT Nurse Practitioner Acute Care; ATTEND Family Medicine Sports Medicine
DX: M19.90 Unspecified osteoarthritis, unspecified site; G89.29 Other chronic pain; K76.0 Fatty (change of) liver, not elsewhere classified; K85.20 Alcohol induced acute pancreatitis without necrosis or infection; Z87.891 Personal history of nicotine dependence; Z59.89 Other problems related to housing and economic circumstances; G47.33 Obstructive sleep apnea (adult) (pediatric); E83.42 Hypomagnesemia; M79.89 Other specified soft tissue disorders; R73.9 Hyperglycemia, unspecified; G25.81 Restless legs syndrome; F41.9 Anxiety disorder, unspecified; F32.A Depression, unspecified; J44.89 Other specified chronic obstructive pulmonary disease; I10 Essential (primary) hypertension; K21.9 Gastro-esophageal reflux disease without esophagitis; M79.662 Pain in left lower leg; Z32.02 Encounter for pregnancy test, result negative; K86.1 Other chronic pancreatitis; Z79.899 Other long term (current) drug therapy; M79.661 Pain in right lower leg; F10.11 Alcohol abuse, in remission

== ENCOUNTER 2025-01-31 10:56 | Inpatient (IN) ==
--- OUTSIDE RECORDS SUMMARY | 2025-01-31 11:34 | EXTERNAL MEDICAL SUMMARY RPT | Continuity of Care Document ---
Author Organization [facility] Address [address] [place] [id number] Phone Problems date description facility 2024-11-02 14:32 Unspecified abdominal pain [facility] 2024-11-02 14:32 Nausea with vomiting, unspecifi ed [facility] 2024-11-02 15:02 Unspecified abdominal pain [facility] 2024-11-02 15:02 Nausea with vomiting, unspecifi ed [facility] 2024-11-03 14:11 Epigastric pain [facility] 2024-11-07 06:59 Sciatica, left side [facility] 2024-11-09 12:24 Right lower quadrant pain [facility] 2024-11-10 14:07 Low back pain, unspecified [facility] 2024-11-10 14:07 Unspecified abdominal pain [facility] 2024-11-11 10:29 Right upper quadrant pain [facility] 2024-11-11 10:29 Right lower quadrant pain [facility] 2024-11-11 10:29 Unspecified abdominal pain [facility] 2024-11-11 10:29 Nausea with vomiting, unspecifi ed [facility] 2024-11-11 10:34 Sciatica, left side [facility] 2024-11-11 10:34 Low back pain, unspecified [facility] 2024-11-12 11:49 Low back pain, unspecified [facility] 2024-11-15 14:01 Low back pain, unspecified [facility] 2024-11-15 14:01 Pain in left leg [facility] 2024-11-15 14:01 Unspecified abdominal pain [facility] 2024-11-16 08:10 Low back pain, unspecified [facility] 2024-11-16 08:11 Low back pain, unspecified [facility] 2024-12-09 22:05 Alcohol use, unspeci fied with intoxication, uncomplicated [facility] 2024-12-09 22:05 Unspecified abdominal pain [facility] 2024-12-15 12:08 Alcohol use, unspeci fied with intoxication, uncomplicated [facility] 2024-12-15 12:08 Unspecified abdominal pain [facility] 2024-12-15 12:08 Nausea with vomiting, unspecifi ed [facility] 2024-12-24 11:19 Dorsalgia, unspecified [facility] 2024-12-24 11:19 Nausea with vomiting, unspecifi ed [facility] 2024-12-28 13:28 Right lower quadrant pain [facility] 2025-01-01 11:43 Nausea with vomiting, unspecifi ed [facility] Results/Labs test date facility value unit notes Result panel 1 ETOH - ETHANOL 2024-11-02 12:08 [facility] < 10.0 mg/dl Blood Alcohol Levels Level Sporadic Drinkers Chronic drinkers 100 mg/dL Legally intoxicated* Minimal signs 200-250 mg/dL Alertness lost, Effort needed to becoming lethargic maintain emotional and motor control 300-350 mg/dL Stupor to coma Drowsy and slow >500 mg/dL Possible Coma *The legal definition of intoxication varies. This assy is for medical decision making only. As of December 2022 testing method has changed, this may include reference ranges. NUCLEATED RED BLOOD CELLS AUTO 2024-11-02 12[facility] /100wbc (missing) EOSINOPHILS # (AUTO) 2024-11-02 12:08 [facility] 0.0 10 3/ul (missing) NRBC ABSOLUTE COUNT (AUTO) 2024-11-02 12:08 [facility] 0.00 x10 3/ul (missing) BASOPHILS # (AUTO) 2024-11-02 12:08 [facility] 0.1 10 3/ul (missing) MONOCYTES # (AUTO) 2024-11-02 12:08 [facility] 0.4 10 3/ul (missing) BILIRUBIN,TOTAL 2024-11-02 12:08 [facility] 0.7 mg/dl As of December 2022 test ing method has changed, this may include reference ranges. CREATININE 2024-11-02 12:08 [facility] 0.9 mg/dl As of December 2022 test ing method has changed, this may include reference ranges. ALBUMIN/GLOBULIN RATIO 2024-11-02 12:08 [facility] 1.5 (missing) (missing) LYMPHOCYTES # (AUTO) 2024-11-02 12:08 [facility] 1.5 10 3/ul (missing) CHLORIDE 2024-11-02 12:08 [facility] 105 mmol/l As of December 2022 test ing method has changed, this may include reference ranges. MEAN PLATELET VOLUME 2024-11-02 12:08 [facility] 11.1 fl (missing) BUN - BLOOD UREA NITROGEN 2024-11-02 12:08 [facility] 12 mg/dl As of December 2022 test ing method has changed, this may include reference ranges. HGB - HEMOGLOBIN 2024-11-02 12:08 [facility] 12.9 g/dl (missing) ANION GAP 2024-11-02 12:08 [facility] 13.0 (missing) (missing) RED CELL DISTRIBUTION WIDTH 2024-11-02 12:08 [facility] 13.2 % (missing) GLUCOSE 2024-11-02 12:08 [facility] 130 mg/dl As of December 2022 test ing method has changed, this may include reference ranges. SODIUM 2024-11-02 12:08 [facility] 137 mmol/l (missing) PLT - PLATELET COUNT 2024-11-02 12:08 [facility] 153 10 3/ul (missing) LIPASE 2024-11-02 12:08 [facility] 18 u/l As of December 2022 test ing method has changed, this may include reference ranges. CARBON DIOXIDE - CO2 2024-11-02 12:08 [facility] 19 mmol/l As of December 2022 test ing method has changed, this may include reference ranges. GLOBULIN 2024-11-02 12:08 [facility] 2.4 g/dl (missing) ALT ALANINE AMINOTRANSFERASE 2024-11-02 12:08 [facility] 25 iu/l As of December 2022 test ing method has changed, this may include reference ranges. AST ASPARTATE AMINOTRANSFERASE 2024-11-02 12:08 [facility] 26 iu/l As of December 2022 test ing method has changed, this may include reference ranges. NEUTROPHILS # (AUTO) 2024-11-02 12:08 [facility] 3.3 10 3/ul (missing) ALBUMIN 2024-11-02 12:08 [facility] 3.7 g/dl As of December 2022 test ing method has changed, this may include reference ranges. RED BLOOD COUNT 2024-11-02 12:08 [facility] 3.84 10 6/ul (missing) MEAN CORPUSCULAR HEMOGLOBIN 2024-11-02 12:08 [facility] 33.6 pg (missing) MEAN CORPUSCULAR HGB CONC 2024-11-02 12:08 [facility] 34.4 g/dl (missing) HCT - HEMATOCRIT 2024-11-02 12:08 [facility] 37.5 % (missing) POTASSIUM 2024-11-02 12:08 [facility] 4.1 mmol/l As of December 2022 test ing method has changed, this may include reference ranges. WHITE BLOOD COUNT 2024-11-02 12:08 [facility] 5.2 x10 3/ul (missing) TOTAL PROTEIN 2024-11-02 12:08 [facility] 6.1 g/dl As of December 2022 test ing method has changed, this may include reference ranges. GFR - MDRD 2024-11-02 12:08 [facility] 70 (missing) Social History date description facility
--- NOTE | 2025-01-31 11:38 | ED Physician Documentation ---
History of Present Illness Stated complaint Stated Complaint: ABD PX Chief complaint Chief Complaint: Abd Pain Additonal information Additional information: 39-year-old female with known history of cannabinoid abuse, alcohol abuse, recurrent chronic pancreatitis presents to the emergency department with abdominal pain. Severe upper abdominal pain radiating into back that began earlier today. Associate with nausea vomiting. Received 200 mics fentanyl prior to arrival as well as ondansetron. Irena Coma Scale Assess Eye opening: Spontaneous Verbal response: Oriented Motor response: Obeys Commands Total score: 15 Review of Systems Status of ROS: 10 or more systems reviewed and unremarkable except as noted in history and below Gastrointestinal Reports: Abdominal pain, Nausea and Vomiting Meds/Allgy Home Medications Ambulatory Orders Medication Instructions Recorded Confirmed [id number] 1 cap PO TIDWM #90 caps 08/1501/31/25 5,000-17,000-24,000 unit capsule, delayed rel (Zenpep) Allergies Allergies Allergy/AdvReac Type Severity Reaction Status Date / Time No Known Drug Allergies Allergy Verified 01/31/25 11:17 PFS Active Problems All Active Problems Hypomagnesemia (Acute) Hypokalemia (Acute) Acute pancreatitis (Acute) Nausea and vomiting (Acute) Alcohol intoxication (Acute) Recurrent abdominal pain (Acute) Acute bilateral low back pain (Acute) Sciatica (Acute) Abdominal pain (Acute) Vomiting (Acute) Nausea and vomiting (Acute) Left lower quadrant abdominal pain (Acute) Left lower quadrant abdominal pain (Acute) Nausea (Acute) Kidney cysts (Acute) Acute left flank pain (Acute) Abdominal pain (Acute) Right lateral abdominal pain (Acute) Right lateral abdominal pain (Acute) Renal cyst (Acute) Abdominal pain, acute, left lower quadrant (Acute) Hematoma of kidney (Acute) Disorder of electrolytes (Acute) Alcohol withdrawal (Acute) Bilirubinemia (Acute) Hypomagnesemia (Acute) RAY (acute kidney injury) (Acute) UTI (urinary tract infection) (Acute) Pancreatitis (Acute) Hyponatremia (Acute) Elevated liver enzymes (Acute) Diarrhea due to malabsorption (Acute) Chronic pancreatitis due to acute alcohol intoxication (Acute) Anxiety about health (Acute) Abdominal pain (Acute) Gastritis (Acute) Depression with anxiety (Acute) Hepatitis (Acute) Hepatic infarction (Acute) Acetaminophen poisoning (Acute) Pancytopenia (Acute) Protein S deficiency (Acute) Intractable abdominal pain (Acute) Vomiting (Acute) Pancreatic pseudocyst/cyst (Chronic) History of alcohol abuse (Acute) Recurrent pancreatitis (Acute) Flank pain (Acute) Hypokalemia (Acute) Nausea and vomiting (Acute) Pancreatic pseudocyst (Chronic) Alcohol abuse (Chronic) GERD (gastroesophageal reflux disease) (Chronic) Tobacco abuse (Chronic) Medical History Medical History Leg swelling Hyperglycemia Social History Social History (Updated 12/22/24 @ 12:46 by Selina Campo RN) Smoking Status: Current every day smoker If you are a former smoker, when did you quit? (Date/Year): 04/14/2022 Number of Years Smoked: 19 How many cigarettes a day do you smoke? (20 cigarettes=1 Pk): 2 Do you dip or chew tobacco?: No Do you vape?: Yes Patient requests smoking cessation consult: No Initiate information on smoking cessation: No Living arrangement: At home Living Condition: With family Relationship: Level: Independent Do you feel safe in your home environment?: Yes Suffered physical, verbal, emotional, or financial abuse?: No History of Abuse: No ETOH Use: Other (she claims to be sober the past several months.) Substance Use: cannabis (any form) Are you sexually active?: No POLST Patient has POLST: No Exam Exam Vital Signs: Vital Signs x48h Temp Pulse Resp BP Pulse Ox 01/31/25 13:17 79 16 157/109 H 97 01/31/25 11:14 36.6 C 74 20 164/104 H 97 Constitutional Patient laying in bed, moaning, writhing. Then will close her eyes and drifts off to sleep briefly and awaken sharply and repeat the same behavior. HENMT normocephalic Eyes PERRL Neck/C-Spine visual inspection normal Lymph no lymphadenopathy noted Chest inspection of chest normal Respiratory breath sounds equal bilaterally Cardiovascular normal heart rate noted, regular rhythm noted, no gallop and no rub Gastrointestinal abdomen normal to inspection Genitourinary no CVA tenderness Back/Pelvis spine normal to inspection Extremities normal to inspection Neurology bundle breaker II-XII intact, no movement abnormality noted, no focal motor deficit noted and no sensory deficits noted Psychiatry mental status grossly normal Results Vitals Vitals: Vital Signs - 24 hr 01/31/25 11:14 01/31/25 12:35 01/31/25 13:17 Temperature 36.6 C Temperature Source Temporal Artery Scan Pulse Rate 74 79 Respiratory Rate 20 16 Blood Pressure 164/104 H 157/109 H O2 Saturation 97 97 O2 Source Room air Room air Pain Intensity 9 10 01/31/25 13:25 01/31/25 13:34 01/31/25 13:55 Temperature Temperature Source Pulse Rate Respiratory Rate Blood Pressure O2 Saturation O2 Source Pain Intensity 8 8 5 Oxygen O2 Source Room air Labs Labs: Laboratory Tests 01/31/25 11:39 WBC 9.2 RBC 4.03 L Hgb 13.4 Hct 40.3 MCV 100.0 H MCH 33.3 H MCHC 33.3 RDW 14.5 Plt Count 164 MPV 10.6 Neut # (Auto) 6.9 H Lymph # (Auto) 1.6 [place] # (Auto) 0.7 Eos # (Auto) 0.0 Baso # (Auto) 0.0 Absolute Nucleated RBC 0.00 Nucleated RBC % 0.0 Sodium 140 Potassium 2.6 L Chloride 108 Carbon Dioxide 21 Anion Gap 11.0 BUN 7 Creatinine 0.7 Estimated GFR (MDRD) 94 Glucose 191 H Calcium 9.3 Magnesium 1.4 L Total Bilirubin 0.9 AST 16 ALT 13 Alkaline Phosphatase 78 Total Protein 6.5 Albumin 4.1 Globulin 2.4 Albumin/Globulin Ratio 1.7 Triglycerides 188 Lipase 845 H Ethyl Alcohol < 10.0 PD Medical Decision Making ED course Complexity details: reviewed results, re-evaluated patient, considered differential and d/w patient ED course: 31-year-old female presents to the emergency department chief complaint abdominal pain. Known history of recurrent episodes of pancreatitis, as well as a distant history of alcohol abuse. Received 200 mics fentanyl prior to arrival. On arrival received a dose droperidol with minimal relief. Subsequently given hydromorphone. Lab work demonstrates elevation in lipase as well as hypokalemia and hypomagnesemia. Electrolyte repletion as ordered. Her care is discussed with hospital service who graciously agrees to hospitalize for further evaluation and treatment. Discharge Plan Discharge Patient Disposition: 66 [facility] DC/Xfer Clinical Impression: Hypokalemia, Hypomagnesemia Acute pancreatitis Qualifiers: Pancreatitis type: unspecified pancreatitis type Acute pancreatitis complication: unspecified Qualified Code(s): K85.90 - Acute pancreatitis without necrosis or infection, unspecified Interventions: ED Admission Assessment Last Done: 01/31/25 14:18 Vitals documented within 30 minutes of discharge?: Yes
[2025-01-31 11:43] LABS: HCT - HEMATOCRIT 40.3 % (37.0-47.0); HGB - HEMOGLOBIN 13.4 g/dL (12.0-16.0); MEAN PLATELET VOLUME 10.6 fL (7.9-10.8); NRBC ABSOLUTE COUNT (AUTO) 0.00 x10^3/uL; NUCLEATED RED BLOOD CELLS AUTO 0.0 /100WBC; PLT - PLATELET COUNT 164 10^3/uL (130-450); RED CELL DISTRIBUTION WIDTH 14.5 % (12.0-15.0)
[2025-01-31] MEDS: DROPERIDOL 5 MG/2 ML VIAL IVP STA (11:48)
[2025-01-31] MEDS: SODIUM CHLORIDE 0.9% 1,000 ML IV STA (11:59)
[2025-01-31 12:03] LABS: ALT ALANINE AMINOTRANSFERASE 13 IU/L (10-60); AST ASPARTATE AMINOTRANSFERASE 16 IU/L (10-42); BUN - BLOOD UREA NITROGEN 7 mg/dL (6-20); CARBON DIOXIDE - CO2 21 mmol/L (21-32); CREATININE 0.7 mg/dL (0.6-1.3); ETOH - ETHANOL < 10.0 mg/dL; GFR - MDRD 94 (>89)
[2025-01-31] MEDS: MAGNESIUM SULFATE 2 GRAM 2 GM/50 ML BAG IV ONE (12:20)
[2025-01-31] MEDS: HYDROmorphone 1 MG/ML CARPUJECT IVP STA (12:35)
--- NOTE | 2025-01-31 12:42 | HISTORY & PHYSICAL EXAMINATION ---
Chief Complaint Chief Complaint Chief Complaint: Abdominal pain History of Present Illness Admitted From Admitted From:: Home History Obtained From Records Reviewed: EMR History obtained from: Patient Exam Limitations: None History of Present Illness HPI Comment/Other: Patient is a 39-year-old female with a history of chronic pancreatitis, chronic alcohol use who presents due to abdominal pain. She describes it as sharp, epigastric with radiation to the back. She has associated nausea and vomiting. She states she has not been able to keep anything down. It was all triggered by her eating pizza last night. She has a former history of alcohol use, but she states that she has been sober in about a month. She has been taking her pancreatic enzymes daily. She has had no abdominal surgeries before. She denies any fevers or chills. She is also having diarrhea, which she states is a chronic issue for her. In the ER, she was vitally stableblood pressure was 114/74, heart rate was 112, respiratory rate was 18, and she was saturating 90% on room air. She was afebrile. Lab work was reviewedher white count was within normal limits. She does have a macrocytosis. Her potassium was low at 2.6, and her magnesium was low at 1.4. Her AST, ALT, alkaline phosphatase, as well as bilirubin were within normal limits. Her lipase was 845. An abdominal ultrasound showed a common bile duct dilatation measuring at 6.9 mm, choledocholithiasis was not excluded. Free fluid was seen adjacent to the gallbladder. test is pending; if it is negative, we will order MRCP for further characterization. If MRCP shows any gallstones, there is concern for gallstone pancreatitis, will consult general surgery. Meds/Allgy Home Medications Ambulatory Orders Medication Instructions Recorded Confirmed gwwfpx-eklaynwu-[id number] 1 cap PO TIDWM #90 caps 08/1501/31/25 5,000-17,000-24,000 unit capsule, delayed rel (Zenpep) Allergies Allergies Allergy/AdvReac Type Severity Reaction Status Date / Time No Known Drug Allergies Allergy Verified 01/31/25 11:17 [facility] Active Problems All Active Problems Hypomagnesemia (Acute) Hypokalemia (Acute) Acute pancreatitis (Acute) Nausea and vomiting (Acute) Alcohol intoxication (Acute) Recurrent abdominal pain (Acute) Acute bilateral low back pain (Acute) Sciatica (Acute) Abdominal pain (Acute) Vomiting (Acute) Nausea and vomiting (Acute) Left lower quadrant abdominal pain (Acute) Left lower quadrant abdominal pain (Acute) Nausea (Acute) Kidney cysts (Acute) Acute left flank pain (Acute) Abdominal pain (Acute) Right lateral abdominal pain (Acute) Right lateral abdominal pain (Acute) Renal cyst (Acute) Abdominal pain, acute, left lower quadrant (Acute) Hematoma of kidney (Acute) Disorder of electrolytes (Acute) Alcohol withdrawal (Acute) Bilirubinemia (Acute) Hypomagnesemia (Acute) RAY (acute kidney injury) (Acute) UTI (urinary tract infection) (Acute) Pancreatitis (Acute) Hyponatremia (Acute) Elevated liver enzymes (Acute) Diarrhea due to malabsorption (Acute) Chronic pancreatitis due to acute alcohol intoxication (Acute) Anxiety about health (Acute) Abdominal pain (Acute) Gastritis (Acute) Depression with anxiety (Acute) Hepatitis (Acute) Hepatic infarction (Acute) Acetaminophen poisoning (Acute) Pancytopenia (Acute) Protein S deficiency (Acute) Intractable abdominal pain (Acute) Vomiting (Acute) Pancreatic pseudocyst/cyst (Chronic) History of alcohol abuse (Acute) Recurrent pancreatitis (Acute) Flank pain (Acute) Hypokalemia (Acute) Nausea and vomiting (Acute) Pancreatic pseudocyst (Chronic) Alcohol abuse (Chronic) GERD (gastroesophageal reflux disease) (Chronic) Tobacco abuse (Chronic) Medical History Medical History Leg swelling Hyperglycemia Social History Social History (Updated 12/22/24 @ 12:46 by Selina Campo RN) Smoking Status: Current every day smoker If you are a former smoker, when did you quit? (Date/Year): 04/14/2022 Number of Years Smoked: 19 How many cigarettes a day do you smoke? (20 cigarettes=1 Pk): 3 Do you dip or chew tobacco?: No Do you vape?: Yes Patient requests smoking cessation consult: No Initiate information on smoking cessation: No Living arrangement: At home Living Condition: With family Relationship: Level: Independent Do you feel safe in your home environment?: Yes Suffered physical, verbal, emotional, or financial abuse?: No History of Abuse: No ETOH Use: Other (she claims to be sober the past several months.) Substance Use: cannabis (any form) Are you sexually active?: No POLST Patient has POLST: No Review of Systems Constitutional Reports: Weakness and Poor appetite; Denies: Fatigue, Fever, Chills or Malaise Eyes Denies: Pain, Irritation, Blurry vision, Vision loss, Diplopia or Eye discomfort Ears, nose, mouth, and throat Denies: Ear pain, Hearing loss, Tinnitus, Nose bleeds, Nasal discharge, Mouth lesions, Bleeding gums or Neck pain Cardiovascular Denies: Irregular heart rate, chest pain, palpitations, edema, Syncope or shortness of breath with exertion Respiratory Denies: Shortness of breath, Cough, Sputum production or Wheezing Gastrointestinal Reports: Abdominal pain, Abdominal distention, Nausea, Vomiting, Poor appetite, Diarrhea and Bloating; Denies: Heartburn or Constipation Genitourinary Denies: Painful urination, Urinary frequency or Urinary urgency Musculoskeletal Denies: Back pain, Neck pain, Extremity pain, Extremity swelling or Joint pain Integumentary/Breast Denies: Rash, Itching, Dryness, Redness or Skin pain Neurological Reports: General weakness; Denies: Headache, Weakness in extremities, Numbness in extremities, Abnormal gait or Dizziness Psychiatric Denies: Depression, Anxiety, Mood swings or Panic attacks Endocrine Denies: Excessive urination, Excessive thirst or Fatigue Hematologic/Lymphatic Denies: Anemia, Easy bruising or Easy bleeding Allergic/Immunologic Denies: Hives, Tongue swelling, Facial swelling or Wheezing Prior Level of Functionality: Independent of ADLs. Lives with her mom, stepfather, as well as her 2 children. Exam Exam Vital Signs: Vital Signs x48h Temp Pulse Resp BP Pulse Ox 01/31/25 14:11 83 16 157/120 H 97 01/31/25 13:17 79 16 157/109 H 97 01/31/25 11:14 97.8 F 74 20 164/104 H 97 Constitutional normal general appearance, distress noted, average body habitus and no limitations Appears in mild distress due to abdominal pain HENMT normocephalic, head/scalp atraumatic, hearing grossly normal bilaterally and dentition abnormal (caries) Eyes PERRL, EOMs intact bilaterally and conjunctivae normal Neck/C-Spine visual inspection normal, trachea midline and cervical spine nontender Chest inspection of chest normal Respiratory breath sounds equal bilaterally, normal respiratory effort, clear to auscultation bilaterally, no wheezes, no rales and no retractions Cardiovascular normal heart rate noted, regular rhythm noted, no gallop, no rub and no murmur Gastrointestinal abdomen normal to inspection, tender to palpation (severe) and (epigastric), nondistended, normoactive bowel sounds, no hepatosplenomegaly, no masses, no pulsatile mass and no ascites Genitourinary no CVA tenderness Back/Pelvis spine normal to inspection, no thoracic spine tenderness and no lumbar spine tenderness Extremities normal to inspection, normal to palpation, no tenderness and full ROM Neurology no movement abnormality noted and no focal motor deficit noted Psychiatry mental status grossly normal, oriented x3, thought process normal, cooperative and affect normal Skin skin color normal, no rash, no lesions and no wounds Conclusion/Plan Problem List (1) Acute pancreatitis: Plan: Patient states that she maintained her sobriety. Comes in with typical pancreatitis findings including epigastric pain with radiation to the back, as well as elevated lipase. Triglycerides levels pending, US abdomen shows dilated CBD. test is ordered and pending; if negative, will get MRCP. If positive for gallstones or sludge, will consult general surgery for possible cholecystecomy while inpatient. At this time, continue IVF, NPO status, pain management. Continue to corporate travel counselor on EtOH cessation when able. Qualifiers: Acute pancreatitis complication: unspecified Pancreatitis type: u nspecified pancreatitis type Qualified Code(s): K85.90 - Acute pancreatitis without necrosis or infection, unspecified (2) Hypokalemia: Plan: Due to nausea, vomiting, decreased appetite. Continue repletion and trend until within normal limits. (3) Hypomagnesemia: Plan: Due to nausea, vomiting, decreased appetite. Continue repletion and trend until within normal limits. (4) Chronic pancreatitis: Plan: Due to longstanding EtOH use. Now sober. Continue pancrealipase. Qualifiers: Pancreatitis type: unspecified pancreatitis type Qualified Code(s): K 86.1 - Other chronic pancreatitis Lab Results Lab results reviewed: Yes 01/31/25 11:39 01/31/25 11:39 Diagnostic Imaging Results Diagnostic Imaging Results: positive Final report reviewed EKG Results EKG Interpreted Independently: Yes Core Measures Anticipated LOS I expect patient to be DC'd or transferred within 96 hours.: Yes DVT/VTE - Prophylaxis VTE/DVT Device ordered at admit?: No VTE/DVT Prophylaxis med ordered at admit?: Yes
[2025-01-31] MEDS: POTASSIUM CHLOR 10 MEQ/100 ML 10 MEQ/100 ML BAG IV SCH ×2 (13:18→19:52)
[2025-01-31] MEDS: HYDROmorphone 1 MG/ML CARPUJECT IVP PRN ×3 (13:25→20:15)
--- NOTE | 2025-01-31 14:00 | Ultrasound Report ---
PROCEDURE: US Abdomen Limited INDICATIONS: Acute pancreatitis TECHNIQUE: Real-time focused scanning was performed of the abdomen, with image documentation. COMPARISONS: 10/27/2024 FINDINGS: Liver: Increased liver echogenicity, commonly mild hepatic steatosis. Gallbladder: No gallstones, sludge, wall thickening or or sonographic Justice sign. Pericholecystic fluid is present. Biliary ducts: Intrahepatic bile ducts are non-dilated. Extrahepatic bile duct caliber measures 6.9 mm. Normal is 6-7 mm or less in diameter, or 10 mm or less post-cholecystectomy. Pancreas: Visualized portions of the pancreas are sonographically normal. Right kidney: Normal in size and echotexture. Right kidney measures 10.5 cm long. No hydronephrosis or nephrolithiasis. No solid masses. No complex renal cystic lesions which require follow-up. IVC: Intrahepatic inferior vena cava is patent. Miscellaneous: No free abdominal fluid. IMPRESSION: Common bile duct measures 6.9 mm, at the high limits of normal. Choledocholithiasis is not excluded in the setting of acute pancreatitis. Consider confirmation with MRCP. Free fluid adjacent to the gallbladder, presumably reactive. Reviewed by: Harshil Walsh MD on 01/31/2025 1:59 PM PDT Approved by: Harshil Walsh MD on 01/31/2025 1:59 PM PDT Station ID: [id number]
--- OUTSIDE RECORDS SUMMARY | 2025-01-31 14:18 | EXTERNAL MEDICAL SUMMARY RPT | Continuity of Care Document ---
Author Organization [facility] Address [address] [place] [id number] Phone Problems date description facility 2024-11-02 14:32 Unspecified abdominal pain [facility] 2024-11-02 14:32 Nausea with vomiting, unspecifi ed [facility] 2024-11-02 15:02 Unspecified abdominal pain [facility] 2024-11-02 15:02 Nausea with vomiting, unspecifi ed [facility] 2024-11-03 14:11 Epigastric pain [facility] 2024-11-07 06:59 Sciatica, left side [facility] 2024-11-09 12:24 Right lower quadrant pain [facility] 2024-11-10 14:07 Low back pain, unspecified [facility] 2024-11-10 14:07 Unspecified abdominal pain [facility] 2024-11-11 10:29 Right upper quadrant pain [facility] 2024-11-11 10:29 Right lower quadrant pain [facility] 2024-11-11 10:29 Unspecified abdominal pain [facility] 2024-11-11 10:29 Nausea with vomiting, unspecifi ed [facility] 2024-11-11 10:34 Sciatica, left side [facility] 2024-11-11 10:34 Low back pain, unspecified [facility] 2024-11-12 11:49 Low back pain, unspecified [facility] 2024-11-15 14:01 Low back pain, unspecified [facility] 2024-11-15 14:01 Pain in left leg [facility] 2024-11-15 14:01 Unspecified abdominal pain [facility] 2024-11-16 08:10 Low back pain, unspecified [facility] 2024-11-16 08:11 Low back pain, unspecified [facility] 2024-12-09 22:05 Alcohol use, unspeci fied with intoxication, uncomplicated [facility] 2024-12-09 22:05 Unspecified abdominal pain [facility] 2024-12-15 12:08 Alcohol use, unspeci fied with intoxication, uncomplicated [facility] 2024-12-15 12:08 Unspecified abdominal pain [facility] 2024-12-15 12:08 Nausea with vomiting, unspecifi ed [facility] 2024-12-24 11:19 Dorsalgia, unspecified [facility] 2024-12-24 11:19 Nausea with vomiting, unspecifi ed [facility] 2024-12-28 13:28 Right lower quadrant pain [facility] 2025-01-01 11:43 Nausea with vomiting, unspecifi ed [facility] Results/Labs test date facility value unit notes Result panel 1 ETOH - ETHANOL 2024-11-02 12:08 [facility] < 10.0 mg/dl Blood Alcohol Levels Level [...] NUCLEATED RED BLOOD CELLS AUTO [facility]24[facility]02 [facility] /100wbc (missing) EOSINOPHILS # (AUTO) 2024-11-02 12:08 [facility] 0.0 10 3/ul (missing) NRBC ABSOLUTE COUNT (AUTO) 2024-11-02 12:08 [facility] 0.00 x10 3/ul (missing) BASOPHILS # (AUTO) 2024-11-02 12:08 [facility] 0.1 10 3/ul (missing) MONOCYTES # (AUTO) 2024-11-02 12:08 [email or web address] 0.4 10 3/ul (missing) BILIRUBIN,TOTAL 2024-11-02 12:08 [email or web address] 0.7 mg/dl As of December 2022 test ing method has changed, this may include reference ranges. CREATININE 2024-11-02 12:08 [email or web address] 0.9 mg/dl As of December 2022 test ing method has changed, this may include reference ranges. ALBUMIN/GLOBULIN RATIO 2024-11-02 12:08 [email or web address] 1.5 (missing) (missing) LYMPHOCYTES # (AUTO) 2024-11-02 12:08 [email or web address] 1.5 10 3/ul (missing) CHLORIDE 2024-11-02 12:08 [email or web address] 105 mmol/l As of December 2022 test ing method has changed, this may include reference ranges. MEAN PLATELET VOLUME 2024-11-02 12:08 [email or web address] 11.1 fl (missing) BUN - BLOOD UREA NITROGEN 2024-11-02 12:08 [email or web address] 12 mg/dl As of December 2022 test ing method has changed, this may include reference ranges. HGB - HEMOGLOBIN 2024-11-02 12:08 [email or web address] 12.9 g/dl (missing) ANION GAP 2024-11-02 12:08 [email or web address] 13.0 (missing) (missing) RED CELL DISTRIBUTION WIDTH 2024-11-02 12:08 [facility] 13.2 % (missing) GLUCOSE 2024-11-02 12:08 [facility] 130 mg/dl As of December 2022 test ing method has changed, this may include reference ranges. SODIUM 2024-11-02 12:08 [facility] 137 mmol/l (missing) PLT - PLATELET COUNT 2024-11-02 12:08 [facility] 153 10 3/ul (missing) LIPASE 2024-11-02 12:08 [facility] 18 u/l As of December 2022 test ing method has changed, this may include reference ranges. CARBON DIOXIDE - CO2 2024-11-02 12:08 [facility] 19 mmol/l As of December 2022 test ing method has changed, this may include reference ranges. GLOBULIN 2024-11-02 12:08 [email or web address] 2.4 g/dl (missing) ALT ALANINE AMINOTRANSFERASE 2024-11-02 12:08 [email or web address] 25 iu/l As of December 2022 test ing method has changed, this may include reference ranges. AST ASPARTATE AMINOTRANSFERASE 2024-11-02 12:08 [email or web address] 26 iu/l As of December 2022 test ing method has changed, this may include reference ranges. NEUTROPHILS # (AUTO) 2024-11-02 12:08 [email or web address] 3.3 10 3/ul (missing) ALBUMIN 2024-11-02 12:08 [email or web address] 3.7 g/dl As of December 2022 test ing method has changed, this may include reference ranges. RED BLOOD COUNT 2024-11-02 12:08 [email or web address] 3.84 10 6/ul (missing) MEAN CORPUSCULAR HEMOGLOBIN 2024-11-02 12:08 [facility] 33.6 pg (missing) MEAN CORPUSCULAR HGB CONC 2024-11-02 12:08 [facility] 34.4 g/dl (missing) HCT - HEMATOCRIT 2024-11-02 12:08 [facility] 37.5 % (missing) POTASSIUM 2024-11-02 12:08 [facility] 4.1 mmol/l As of December 2022 test ing method has changed, this may include reference ranges. WHITE BLOOD COUNT 2024-11-02 12:08 [email or web address] 5.2 x10 3/ul (missing) TOTAL PROTEIN 2024-11-02 12:08 [email or web address] 6.1 g/dl As of December 2022 test ing method has changed, this may include reference ranges. GFR - MDRD 2024-11-02 12:08 [facility] 70 (missing) Social History date description facility
--- NOTE | 2025-01-31 14:19 | PHARMACY PROGRESS NOTE ---
Best Possible Medication History Admit Date and Time: 01/31/25 1403 Home Medications Medication Instructions Recorded Confirmed Type [id number] 1 cap PO TIDWM #90 caps 08/1501/31/25 Rx 5,000-17,000-24,000 unit capsule, delayed rel (Zenpep) Processed by: Pharmacy (Medication reconciliation completed by Coil Repair TechnicianKisha) Medications reviewed in ED?: Yes Medication History completed: Yes Patient Interview: Completed Secondary Source(s): Insurance records [facility] Statement: As the person ultimately responsible for medication therapy, providers are able to order a medication from an existing home medication list in [facility] via the "Reconcile Routine" prior to Confirmation of that medication by it desktop support technician. [facility] practice is discouraged except when the physician, in their clinical judgment, deems that a medical need exists for a medication without regard to previous use.
[2025-01-31] MEDS: HYDROmorphone 0.5 MG/0.5 ML SYRINGE IVP PRN (14:54)
[2025-01-31] MEDS: oxyCODONE 5 MG TABLET PO PRN (14:59)
[2025-01-31 15:18] LABS: GLUCOSE, URINE (UA) NEGATIVE (NEGATIVE); KETONES,URINE (UA) TRACE mg/dL (NEGATIVE); OCCULT BLOOD,URINE NEGATIVE (NEGATIVE)
[2025-01-31 15:19] LABS: AMORPHOUS SEDIMENT,UR Moderate /LPF; SQUAMOUS EPITHELIAL CELL,UR MANY Squamous (<= Few)
[2025-01-31 15:53] LABS: HCG UR QUAL NEGATIVE
[2025-01-31 16:11] LABS: AMPHETAMINE SCREEN,URINE NEGATIVE (NEGATIVE); BARBITURATE SCREEN,UR NEGATIVE (NEGATIVE); BENZODIAZEPINES SCREEN, URINE NEGATIVE (NEGATIVE); BUPRENORPHINE SCREEN, URINE NEGATIVE (NEGATIVE); COCAINE SCREEN URINE NEGATIVE (NEGATIVE); METHADONE SCREEN, URINE NEGATIVE (NEGATIVE); METHAMPHETAMINES SCREEN, URINE NEGATIVE (NEGATIVE); OPIATE SCREEN, URINE POSITIVE (NEGATIVE); THC CANNABINOID SCREEN, URINE POSITIVE (NEGATIVE)
[2025-01-31] MEDS: LACTATED RINGERS 1,000 ML IV SCH (16:15)
[2025-01-31] MEDS: SODIUM CHLORIDE FLUSH 0.9% 10 ML SYRINGE IVP SCH (17:48)
[2025-01-31] MEDS: LIPASE/PROTEASE/AMYLASE CAPSULE PO SCH (17:55)
[2025-01-31] MEDS: ACETAMINOPHEN 325 MG TABLET PO PRN (19:08)
[2025-01-31] MEDS: PROCHLORPERAZINE 10 MG/2 ML VIAL IVP PRN (21:49)
[2025-02-01 05:13] LABS: ALT ALANINE AMINOTRANSFERASE 11.0 IU/L (10-60); AST ASPARTATE AMINOTRANSFERASE 15.0 IU/L (10-42); BUN - BLOOD UREA NITROGEN 7.0 mg/dL (6-20); CARBON DIOXIDE - CO2 21.0 mmol/L (21-32); CREATININE 0.6 mg/dL (0.6-1.3); GFR - MDRD 112.0 (>89)
[2025-02-01] MEDS ORDERED: CALCIUM CARBONATE CHEW 500 MG TABLET PO PRN (07:27)
[2025-02-01] MEDS: NICOTINE 14 MG PATCH TOP SCH (08:11)
[2025-02-01] MEDS: ENOXAPARIN 40 MG/0.4 ML SYRINGE SUBQ SCH (08:11)
[2025-02-01 08:36] LABS: HCT - HEMATOCRIT 43.4 % (37.0-47.0); HGB - HEMOGLOBIN 14.3 g/dL (12.0-16.0); MEAN PLATELET VOLUME 11.0 fL (7.9-10.8); PLT - PLATELET COUNT 145.0 10^3/uL (130-450); RED CELL DISTRIBUTION WIDTH 14.9 % (12.0-15.0)
--- NOTE | 2025-02-01 09:05 | MRI Report ---
PROCEDURE: MRI MRCP WO INDICATIONS: dilated CBD CONTRAST: None TECHNIQUE: Coronal ultra fast SE through the abdomen, axial 2-D spoiled GE in- and [id number], and breath-hold T2 FSE with fat saturation through the biliary system and pancreas. Oblique coronal and axial thin-slice ultra fast SE, radial thick-slab ultra fast SE centered on the extrahepatic bile ducts. COMPARISON: Ultrasound 01/31/2025, CT 10/27/2024 FINDINGS: Image quality: Excellent. Gallbladder: Partially distended. No stones or wall thickening. Trace pericholecystic fluid. Biliary tree: No intra or extrahepatic biliary dilatation. Specifically, the common duct is in spasm and is nondilated measuring 5 mm maximally. Where it is visible, there is no direct or indirect evidence of choledocholithiasis. Pancreas: Moderate peripancreatic edema and fluid. Mild focal decreased T1, and mildly increased T2 signal in the head of pancreas consistent with interstitial edema. Trace interstitial fluid elsewhere throughout the pancreas. No pancreatic ductal dilatation. Lung bases and heart: Normal size heart. No pleural effusion. Liver: Normal size and signal without solid mass. Spleen: No splenomegaly. Adrenals: No adrenal nodule. Kidneys and ureters: No hydronephrosis or dilated ureters. There are subcapsular fluid collection along the anterior and posterior surface of the left kidney, the largest is posterior and causes mild mass effect on the kidney. It measures about 8.0 x 1.9 x 3.1 cm , similar compared to prior. The anterior fluid collection abuts the tail of the pancreas. Bowel and peritoneum: Moderate to extensive edema and fluid surrounding the stomach and the pancreas, in situ of the demian hepatis. Trace fluid in the right paracolic gutter and in the perisplenic left upper quadrant. The stomach and visible bowel loops are within normal limits and decompressed. Lymph nodes: No central or retroperitoneal adenopathy. Vessels: Normal caliber abdominal aorta, IVC, and portal vein. The splenic vein appears attenuated prior to the demian splenic confluence. Bones: No aggressive osseous abnormality. Other: No significant ventral hernia. IMPRESSION: Moderate acute, interstitial pancreatitis without evidence of biliary dilatation or choledocholithiasis. Evidence of chronic pancreatitis indicated by left perinephric fluid collections, presumably pseudocysts. Reviewed by: Emelyn Devi MD on 02/01/2025 9:03 AM PDT Approved by: Emelyn Devi MD on 02/01/2025 9:03 AM PDT Station ID: [id number]
[2025-02-01] MEDS: PANTOPRAZOLE 40 MG VIAL IVP SCH (11:33)
--- NOTE | 2025-02-01 17:25 | PROVIDER PROGRESS NOTE ---
Subjective Prog Note Date Prog Note Date: 02/01/25 Prog Note Time: 17:11 Subjective Subjective: She was seen this morning and doing great. Abdominal pain was controlled. This afternoon she is in tears. Her sciatica is acting up and she has low back pain that radiates down both legs at an 8 out of a 10. She also has suprapubic pain that hurts when she urinates. She is able to urinate. But it hurts over her bladder. It feels like it is getting harder she tells me. No fever, no chills. But she is miserable this afternoon where she was happy and smiling this morning. This morning she was also having diffuse sweats. No fever, no chills, no rigors. But had an ice pack on her head, ice pack on her chest, and an ice pack between her legs because she was just sweating so much. No tremors, no agitation, and has been hypertensive. Yesterday systolic very between 157 and as high as 175. Diastolic is 100 and as high as 120. Today she is 139/102. 139/109. 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 Her drug screen is positive for cannabinoids and benzodiazepines. But negative for all else. Current Medications Current Medications Current Medications: Current Medications Generic Name Dose Route Start Last Admin Trade Name Freq PRN Reason Stop Dose Admin Acetaminophen 650 mg 01/31/25 14:48 02/01/25 13:13 Acetaminophen 325 Mg Tablet PO 650 mg Q4HR PRN Administration Pain 1 to 4, or Fever Lipase/Protease/Amylase 1 cap 01/31/25 17:00 02/01/25 16:39 Lipase/Protease/Amylase Capsule PO 1 cap TIDWM LCUY Administration Calcium Carbonate/Glycine 500 mg 02/01/25 07:27 Calcium Carbonate Chew 500 Mg Tablet PO TID PRN INDIGESTION Enoxaparin Sodium 40 mg 02/01/25 09:00 02/01/25 08:11 Enoxaparin 40 Mg/0.4 Ml Syringe SUBQ 40 mg DAILY LUCY Administration Hydromorphone HCl 2 mg 01/31/25 19:58 02/01/25 15:01 Hydromorphone 1 Mg/Ml Carpuject IVP 2 mg Q2H PRN Administration Pain 8 to 10 Lactated Ringer's 1,000 mls @ 125 mls/hr 01/31/25 16:00 02/01/25 16:56 Lr IV 100 mls/hr .Q8H LUCY Infusion Nicotine 1 patch 02/01/25 09:00 02/01/25 08:11 Nicotine 14 Mg Patch TOP 1 patch DAILY LUCY Administration Oxycodone HCl 5 mg 01/31/25 14:48 02/01/25 13:13 Oxycodone 5 Mg Tablet PO 5 mg Q4HR PRN Administration Pain 5 to 7 Pantoprazole Sodium 40 mg 02/01/25 08:00 02/01/25 11:33 Pantoprazole 40 Mg Vial IVP 40 mg QDAC LUCY Administration Prochlorperazine Edisylate 10 mg 01/31/25 14:48 02/01/25 13:14 Prochlorperazine 10 Mg/2 Ml Vial IVP 10 mg Q6HR PRN Administration Nausea / Vomiting Sodium Chloride 10 ml 01/31/25 14:48 Sodium Chloride Flush 0.9% 10 Ml Syringe IVP PRN PRN NEEDED PER PROVIDER ORDERS Sodium Chloride 10 ml 01/31/25 17:00 02/01/25 16:39 Sodium Chloride Flush 0.9% 10 Ml Syringe IVP 10 ml 0100,0900,1700 LUCY Administration Objective Vital Signs/Intake & Output Reviewed Vital Signs: Yes Vital Signs: Vital Signs x48h Temp Pulse Resp BP Pulse Ox 02/01/25 15:40 36.8 C 123 H 18 139/109 H 96 Intake & Output: Intake & Output 01/29/25 01/30/25 01/31/25 02/01/25 23:59 23:59 23:59 23:59 Intake Total 1748 / 1748 3092 / 3092 Output Total 350 / 350 125 / 125 Balance 1398 / 1398 2967 / 2967 Weight (kg) 81.58 kg Objective General Appearance: positive Severe distress (Tearful. Diaphoretic. Pain is from her back and bladder) Eyes Bilateral: positive Normal inspection, PERRL and EOMI ENT: positive Dry mucous membranes Neck: positive No JVD; negative Stiff neck or Carotid bruit Respiratory: positive Chest non-tender, No respiratory distress and Breath sounds nml Cardiovascular: positive Regular rate & rhythm, No murmur, No gallop and Tachycardia (Started yesterday evening. She was at 101 at midnight. This morning at 115. This afternoon 123.) Abdomen: positive Nml bowel sounds, No distention, Tenderness (In the epigastrium, left upper quadrant, and over the bladder.) and Mass (Even though she is urinated she does have firmness over the suprapubic area and tenderness when I palpate.); negative Guarding, Rebound or Splenomegaly Skin: positive Color nml, Warm and Diaphoresis Extremities: positive Non-tender, Full ROM and Nml appearance Neurologic/Psychiatric: positive Oriented x3, CN's nml (2-12), Motor nml and Other (Tearful.) Lab Results 02/01/25 04:18 02/01/25 04:18 Other Labs: Lab Results x24hrs 02/01/25 01/31/25 Range/Units 04:18 18:58 WBC 10.8 (4.8-10.8) x10^3/uL RBC 4.27 (4.20-5.40) 10^6/uL Hgb 14.3 (12.0-16.0) g/dL Hct 43.4 (37.0-47.0) % MCV 101.6 H (81.0-99.0) fL MCH 33.5 H (27.0-31.0) pg MCHC 32.9 (32.0-36.0) g/dL RDW 14.9 (12.0-15.0) % Plt Count 145 (130-450) 10^3/uL MPV 11.0 H (7.9-10.8) fL Sodium 136 (135-145) mmol/L Potassium 3.5 3.2 L (3.5-4.5) mmol/L Chloride 107 (101-111) mmol/L Carbon Dioxide 21 (21-32) mmol/L Anion Gap 8.0 (6-13) BUN 7 (6-20) mg/dL Creatinine 0.6 (0.6-1.3) mg/dL Estimated GFR (MDRD) 112 (>89) Glucose 189 H (74-104) mg/dL Calcium 8.7 (8.5-10.3) mg/dL Magnesium 1.7 (1.7-2.3) mg/dL Total Bilirubin 0.7 (0.2-1.0) mg/dL AST 15 (10-42) IU/L ALT 11 (10-60) IU/L Alkaline Phosphatase 76 (42-121) IU/L Total Protein 6.2 L (6.4-8.9) g/dL Albumin 3.7 (3.2-5.5) g/dL Globulin 2.5 (2.1-4.2) g/dL Albumin/Globulin Ratio 1.5 (1.0-2.2) Assessment/Plan Problem List (1) Acute on chronic pancreatitis: Impression: Tearful today due to bladder pain and back pain. The MRCP does not show choledocholithiasis. It does show pancreatitis. I share that news with the patient. Pain meds over to : Toradol 30mg (3 doses), Dilaudid 0.5mg IV (7doses), 1mg IV one dose, and oxycodone 10mg- 4 doses, This is 82.5MME per day- in addition to non opioid analgesia. Ofirmev added as well. remote hx of tylenol overdose (not intentional). She was changed to po dilaudid yesterday afternoon. This morning she was doing well. But this afternoon she is not. Yesterday she received 3 doses of 5 mg of oxycodone. Today she has received 2 doses of 5 mg of oxycodone. Today she has received 7 doses of IV Dilaudid. She is not on the IV Tylenol. Only p.o. Tylenol. She is asking if she could please have some Flexeril. I am not going to change her Dilaudid dosing. There is quite a bit of it being given today. And I will add the cyclobenzaprine. I will also get a bladder scan to see if her bladder is emptying. She is n.p.o. for food. And getting 125 cc an hour of lactated Ringer's. I will continue those. (2) Hypokalemia: Impression: I will give her a potassium rider. While the potassium rider is ongoing, I will hold lactated Ringer's. (3) Hyperglycemia: Impression: 138 on the . 191 yesterday. And 189 today. All of these are fasting. Plan: A1c in the past has been below 6%. If she is consistently above 180, I will start sliding scale insulin.
[2025-02-01] MEDS: CYCLOBENZAPRINE 10 MG TABLET PO PRN (19:01)
[2025-02-01 19:25] LABS: OCCULT BLOOD,URINE TRACE-INTACT (NEGATIVE)
[2025-02-01 19:26] LABS: AMORPHOUS SEDIMENT,UR Moderate /LPF; CASTS, URINE 3-5 Hyaline Casts /LPF; GLUCOSE, URINE (UA) NEGATIVE (NEGATIVE); KETONES,URINE (UA) NEGATIVE (NEGATIVE); SQUAMOUS EPITHELIAL CELL,UR MANY Squamous (<= Few)
[2025-02-02] MEDS: METOPROLOL 5 MG/5 ML VIAL IVP ONE ×2 (01:22→03:53)
[2025-02-02 04:23] LABS: ALT ALANINE AMINOTRANSFERASE 8.0 IU/L (10-60); AST ASPARTATE AMINOTRANSFERASE 10.0 IU/L (10-42); BUN - BLOOD UREA NITROGEN 8.0 mg/dL (6-20); CARBON DIOXIDE - CO2 23.0 mmol/L (21-32); CREATININE 0.6 mg/dL (0.6-1.3); GFR - MDRD 112.0 (>89)
--- NOTE | 2025-02-02 16:07 | PROVIDER PROGRESS NOTE ---
Subjective Prog Note Date Prog Note Date: 02/02/25 Prog Note Time: 15:59 Subjective Pt reports feeling: Worse Subjective: She is miserable with pain. She is on as needed oxycodone and had 3 doses of that yesterday. 1 dose this afternoon. The Dilaudid is 2 mg and she had 9 doses yesterday. And 8 doses as of this dictation. The pain is in the left upper quadrant, left flank, goes down the left abdomen into the pelvic region. The pelvis feels tight, uncomfortable. Bladder scan shows that there is urine in the bladder but she is urinating. Urinalysis done yesterday has many squamous cells, negative leukocyte Estrace, moderate sediment, few bacteria, mucus, and nitrite negative. Urine is not brown. No fevers, no chills. No dysuria. But her bladder area just aches and hurts. No vaginal bleeding. Current Medications Current Medications Current Medications: Current Medications Generic Name Dose Route Start Last Admin Trade Name Freq PRN Reason Stop Dose Admin Acetaminophen 650 mg 01/31/25 14:48 02/01/25 13:13 Acetaminophen 325 Mg Tablet PO 650 mg Q4HR PRN Administration Pain 1 to 4, or Fever Lipase/Protease/Amylase 1 cap 01/31/25 17:00 02/02/25 12:01 Lipase/Protease/Amylase Capsule PO 1 cap TIDWM LUCY Administration Calcium Carbonate/Glycine 500 mg 02/01/25 07:27 Calcium Carbonate Chew 500 Mg Tablet PO TID PRN INDIGESTION Cyclobenzaprine HCl 10 mg 02/01/25 17:10 02/02/25 01:47 Cyclobenzaprine 10 Mg Tablet PO 10 mg TID PRN Administration Spasms Enoxaparin Sodium 40 mg 02/01/25 09:00 02/02/25 08:31 Enoxaparin 40 Mg/0.4 Ml Syringe SUBQ 40 mg DAILY LUCY Administration Hydromorphone HCl 2 mg 01/31/25 19:58 02/02/25 15:00 Hydromorphone 1 Mg/Ml Carpuject IVP 2 mg Q2H PRN Administration Pain 8 to 10 Lactated Ringer's 1,000 mls @ 125 mls/hr 01/31/25 16:00 02/02/25 08:35 Lr IV 100 mls/hr .Q8H LUCY Administration Nicotine 1 patch 02/01/25 09:00 02/02/25 08:32 Nicotine 14 Mg Patch TOP 1 patch DAILY LUCY Administration Oxycodone HCl 5 mg 01/31/25 14:48 02/02/25 15:34 Oxycodone 5 Mg Tablet PO 5 mg Q4HR PRN Administration Pain 5 to 7 Pantoprazole Sodium 40 mg 02/01/25 08:00 02/02/25 06:27 Pantoprazole 40 Mg Vial IVP 40 mg QDAC LUCY Administration Prochlorperazine Edisylate 10 mg 01/31/25 14:48 02/02/25 11:12 Prochlorperazine 10 Mg/2 Ml Vial IVP 10 mg Q6HR PRN Administration Nausea / Vomiting Sodium Chloride 10 ml 01/31/25 14:48 Sodium Chloride Flush 0.9% 10 Ml Syringe IVP PRN PRN NEEDED PER PROVIDER ORDERS Sodium Chloride 10 ml 01/31/25 17:00 02/02/25 08:31 Sodium Chloride Flush 0.9% 10 Ml Syringe IVP 10 ml 0100,0900,1700 LUCY Administration Objective Vital Signs/Intake & Output Reviewed Vital Signs: Yes Vital Signs: Vital Signs x48h Temp Pulse Resp BP Pulse Ox 02/02/25 14:57 36.1 C L 129 H 20 138/92 H 95 Intake & Output: Intake & Output 01/30/25 01/31/25 02/01/25 02/02/25 23:59 23:59 23:59 23:59 Intake Total 1748 / 1748 3092 / 3092 1565 / 1565 Output Total 350 / 350 125 / 125 Balance 1398 / 1398 2967 / 2967 1565 / 1565 Weight (kg) 81.58 kg Objective General Appearance: positive Alert, Moderate distress and Other (Tearful. The sweats have resolved and she is no longer using ice packs) Eyes Bilateral: positive PERRL and EOMI ENT: positive No signs of dehydration Neck: positive No JVD; negative Stiff neck or Carotid bruit Respiratory: positive Chest non-tender, No respiratory distress and Breath sounds nml Cardiovascular: positive Regular rate & rhythm, No murmur and No gallop Abdomen: positive No organomegaly, Nml bowel sounds, No distention and Tenderness (Epigastrium, left upper quadrant, left midline, and suprapubic. But no rebound or guarding. Just pain with palpation) Skin: positive Warm and Dry (Yesterday she was diffusely diaphoretic) Extremities: positive Non-tender, Full ROM and Nml appearance Neurologic/Psychiatric: positive Oriented x3, CN's nml (2-12) and Motor nml Lab Results 02/01/25 04:18 02/02/25 04:00 Other Labs: Lab Results x24hrs 02/02/25 02/01/25 Range/Units 04:00 19:11 Sodium 130 L (135-145) mmol/L Potassium 3.8 (3.5-4.5) mmol/L Chloride 100 L (101-111) mmol/L Carbon Dioxide 23 (21-32) mmol/L Anion Gap 7.0 (6-13) BUN 8 (6-20) mg/dL Creatinine 0.6 (0.6-1.3) mg/dL Estimated GFR (MDRD) 112 (>89) Glucose 149 H (74-104) mg/dL Calcium 8.6 (8.5-10.3) mg/dL Magnesium 1.3 L (1.7-2.3) mg/dL Total Bilirubin 1.4 H (0.2-1.0) mg/dL AST 10 (10-42) IU/L ALT 8 L (10-60) IU/L Alkaline Phosphatase 66 (42-121) IU/L Total Protein 5.2 L (6.4-8.9) g/dL Albumin 3.2 (3.2-5.5) g/dL Globulin 2.0 L (2.1-4.2) g/dL Albumin/Globulin Ratio 1.6 (1.0-2.2) Urine Color DARK YELLOW Urine Clarity HAZY (CLEAR) Urine pH 6.0 (5.0-7.5) PH Ur Specific [place] 1.030 (1.002-1.030) Urine Protein 30 H (NEGATIVE) mg/dL Urine Glucose (UA) NEGATIVE (NEGATIVE) mg/dL Urine Ketones NEGATIVE (NEGATIVE) mg/dL Urine Occult Blood TRACE-INTACT (NEGATIVE) Urine Nitrite NEGATIVE (NEGATIVE) Urine Bilirubin NEGATIVE (NEGATIVE) Urine Urobilinogen 0.2 (NORMAL) (NORMAL) E.U./dL Ur Leukocyte Esterase NEGATIVE (NEGATIVE) Urine RBC 0-5 (0-5) /HPF Urine WBC 0-3 (0-5) /HPF Ur Squamous Epith Cells MANY Squamous H (<= Few) Amorphous Sediment Moderate /LPF Urine Bacteria Few (None Seen) /HPF Urine Casts 3-5 Hyaline Casts /LPF Urine Mucus Marked Strands Urine Culture Comments NOT INDICATED Assessment/Plan Problem List (1) Abdominal pain: Impression: The pain has spread beyond her epigastrium and left upper quadrant. This started yesterday 02/01. LUQ pain is usually associated w her pancreatitis pain. I am postulated that she may have some drainage down her paracolic gutter into her pelvis. She is requiring quite a bit of opioids to control this pain. Vital signs are stable other than tachycardia. White cell count is 10.8. Sodium is 130. She is dropped from 136 yesterday. Glucose 149. Magnesium and is low at 1.3. I will start to check daily lipase. CT of abdomen and pelvis to evaluate this pain I will order intravenous magnesium 2 g Qualifiers: Abdominal location: left upper quadrant Qualified Code(s): R10.12 - Left upper quadrant pain (2) Acute on chronic pancreatitis: Impression: Tearful due to bladder pain and back pain. The MRCP does not show choledocholithiasis. It does show pancreatitis. I shared that news with the patient 02/01. She is n.p.o. for food. And getting 125 cc an hour of lactated Ringer's. I will continue those. I am extending my workup of her abdominal pain. Where she is pointing to and where she is tender does not correlate completely with pancreatitis. I will also continue antiemetics, IV pain medicines for now. (3) Hypokalemia: Impression: Resolved. Today she has low magnesium so I will give her a magnesium rider. (4) Hyperglycemia: Impression: Her fasting glucose has been 138, 191, 189 and today 149. This is without treating. Plan: A1c in the past has been below 6%. If she is consistently above 180, I will start sliding scale insulin.
--- NOTE | 2025-02-02 16:45 | CT Report ---
PROCEDURE: CT Abdomen/Pelvis WO INDICATIONS: LUQ, L flank pain down gutter to pelvis TECHNIQUE: A CT scan of the abdomen and pelvis was performed without the use of intravenous contrast. Images were recorded and evaluated at appropriate window settings. Reformats: coronal and sagittal. For radiation dose reduction, the following was used: automated exposure control, adjustment of mA and/or kV according to patient size. COMPARISON: MRCP 01/31/2025. CT abdomen pelvis 10/27/2024, 08/28/2024, 05/10/2022. FINDINGS: Image quality: Diagnostic. Lower chest: Small left pleural effusion. Miniscule right pleural effusion. Mild dependent low space opacities. Liver: No contour-deforming mass. Prominent size. Gallbladder: No calcified gallstones. Biliary tree: No intrahepatic or extrahepatic dilation, accounting for age. Spleen: No splenomegaly. Pancreas: A few pancreatic calcifications. Most likely chronic calcific pancreatitis. Mild peripancreatic fluid. -Cystic structure near the tail the pancreas measuring approximately 2.8 cm, (2/50), unchanged in the short-term interval. -Cystic structure at the posterior aspect of the left kidney measuring 8.3 cm, (6/96), unchanged in the short unremarkable. These are decreased compared to CT 10/27/2024. Adrenals: No adrenal nodule. Kidneys and ureters: No hydronephrosis. No kidney stones. Stomach, bowel and peritoneum: No gastric or small bowel dilation. No abnormal wall thickening. Small to moderate volume of ascites. No pneumoperitoneum. Small nodule at the left paracolic gutter measuring 1.5 cm, (2/96), unchanged. Decreased compared to 2021. Lymph nodes: No central or retroperitoneal adenopathy. Vessels: No infrarenal aortic aneurysm. Reproductive organs: Anteverted uterus. IUD centered in the uterus. Bladder: No abnormal bladder wall thickening. No calcified bladder stones. Pelvic lymph nodes: No adenopathy by size criteria. Bones: No aggressive osseous abnormality. Other: No inguinal hernia. Small fat-containing umbilical hernia. Flank edema. Right subcutaneous abdominal wall injection. IMPRESSION: 1. Edematous appearance of the pancreas. Similar peripancreatic edema. Findings in keeping with interstitial edematous pancreatitis. Suspected pseudocyst adjacent to the left kidney. 2. Small to moderate volume of ascites, increased. Flank edema. Small left pleural effusion. Miniscule right pleural effusion. 3. No bowel obstruction. No pneumoperitoneum. 4. No kidney stones. No hydronephrosis. Reviewed by: Sami Dee MD on 02/02/2025 4:44 PM PDT Approved by: Sami Dee MD on 02/02/2025 4:44 PM PDT Station ID: [id number]
[2025-02-02] MEDS: MAGNESIUM SULFATE 2 GRAM 2 GM/50 ML BAG IV ONE (17:09)
[2025-02-03] MEDS: SODIUM CHLORIDE FLUSH 0.9% 10 ML SYRINGE IVP PRN (00:12)
[2025-02-03] MEDS: DOCUSATE SODIUM 250 MG CAPSULE PO SCH (08:28)
[2025-02-03] MEDS: HYDROmorphone 2 MG/ML VIAL IVP PRN ×2 (11:53→23:37)
--- NOTE | 2025-02-03 17:36 | PROVIDER PROGRESS NOTE ---
Subjective Prog Note Date Prog Note Date: 02/03/25 Prog Note Time: 17:30 Subjective Pt reports feeling: Improved Subjective: by this afternoon, she wants to eat. she is hungry enough that she would like to forgo the use of dilaudid and eat and see what happens. I explained the findings of the CT scan. She seems to have a lot of serous inflammatory fluid in her pelvis. Could be from her cirrhosis? Could be from the pancreas? In any case, she feels like she is better. She still feels tight around the bladder but the terrible 8 out of 10 pain that she was having in her left upper quadrant, left mid abdomen has dulled down to a 4 out of a 10. Current Medications Current Medications Current Medications: Current Medications Generic Name Dose Route Start Last Admin Trade Name Freq PRN Reason Stop Dose Admin Acetaminophen 650 mg 01/31/25 14:48 02/03/25 15:56 Acetaminophen 325 Mg Tablet PO 650 mg Q4HR PRN Administration Pain 1 to 4, or Fever Lipase/Protease/Amylase 1 cap 01/31/25 17:00 02/03/25 11:53 Lipase/Protease/Amylase Capsule PO 1 cap TIDWM LUCY Administration Calcium Carbonate/Glycine 500 mg 02/01/25 07:27 Calcium Carbonate Chew 500 Mg Tablet PO TID PRN INDIGESTION Cyclobenzaprine HCl 10 mg 02/01/25 17:10 02/03/25 15:56 Cyclobenzaprine 10 Mg Tablet PO 10 mg TID PRN Administration Spasms Docusate Sodium 250 - 500 mg 02/03/25 09:00 02/03/25 08:28 Docusate Sodium 250 Mg Capsule PO 250 mg DAILY LUCY Administration Enoxaparin Sodium 40 mg 02/01/25 09:00 02/03/25 08:28 Enoxaparin 40 Mg/0.4 Ml Syringe SUBQ 40 mg DAILY LUCY Administration Lactated Ringer's 1,000 mls @ 125 mls/hr 01/31/25 16:00 02/03/25 10:10 Lr IV 100 mls/hr .Q8H LUCY Administration Nicotine 1 patch 02/01/25 09:00 02/03/25 08:29 Nicotine 14 Mg Patch TOP 1 patch DAILY LUCY Administration Oxycodone HCl 5 mg 01/31/25 14:48 02/03/25 15:56 Oxycodone 5 Mg Tablet PO 5 mg Q4HR PRN Administration Pain 5 to 7 Pantoprazole Sodium 40 mg 02/01/25 08:00 02/03/25 06:41 Pantoprazole 40 Mg Vial IVP 40 mg QDAC LUCY Administration Prochlorperazine Edisylate 10 mg 01/31/25 14:48 02/03/25 00:05 Prochlorperazine 10 Mg/2 Ml Vial IVP 10 mg Q6HR PRN Administration Nausea / Vomiting Sodium Chloride 10 ml 01/31/25 14:48 02/03/25 05:19 Sodium Chloride Flush 0.9% 10 Ml Syringe IVP 10 ml PRN PRN Administration NEEDED PER PROVIDER ORDERS Sodium Chloride 10 ml 01/31/25 17:00 02/03/25 09:13 Sodium Chloride Flush 0.9% 10 Ml Syringe IVP Not Given 0100,0900,1700 [facility] Objective Vital Signs/Intake & Output Reviewed Vital Signs: Yes Vital Signs: Vital Signs x48h Temp Pulse Resp BP Pulse Ox 02/03/25 16:18 37.0 C 106 H 20 127/86 96 02/03/25 11:37 37.1 C 106 H 16 139/89 H 93 Intake & Output: Intake & Output 01/31/25 02/01/25 02/02/25 02/03/25 23:59 23:59 23:59 23:59 Intake Total 1748 / 1748 3092 / 3092 2562 / 2562 1611 / 1611 Output Total 350 / 350 125 / 125 350 / 350 480 / 480 Balance 1398 / 1398 2967 / 2967 2212 / 2212 1131 / 1131 Weight (kg) 81.58 kg Objective General Appearance: positive No acute distress, Alert and Other (When she is in a lot of pain she is very tearful and almost inconsolable. Today she is very calm, watching TV, in no tears) Eyes Bilateral: positive PERRL and EOMI ENT: positive No signs of dehydration Neck: positive Nml inspection and Thyroid nml; negative Stiff neck or Carotid bruit Respiratory: positive Chest non-tender, No respiratory distress and Breath sounds nml Cardiovascular: positive Regular rate & rhythm, No murmur and No gallop Abdomen: positive No organomegaly, Nml bowel sounds and Tenderness (Still the same epigastrium, left upper quadrant, and over the bladder. But much less than the last couple of days. No pain increased with rebound) Skin: positive Warm and Dry Extremities: positive Non-tender, Full ROM and Nml appearance Neurologic/Psychiatric: positive Oriented x3, CN's nml (2-12) and Motor nml Lab Results 02/01/25 04:18 02/02/25 04:00 Other Labs: Lab Results x24hrs 02/03/25 Range/Units 05:57 Lipase 107 H (11-82) U/L Assessment/Plan Problem List (1) Abdominal pain: Qualifiers: Abdominal location: left upper quadrant Qualified Code(s): R10.12 - Left upper quadrant pain (2) Acute on chronic pancreatitis: Impression: She presented with pain in the upper abdominal area that radiated to the back. Found to have pancreatitis. 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 The pseudocyst was big enough that it pressed up against her duodenum and stomach and she had a functional obstruction. This in turn resulted in multiple admissions for nausea and vomiting. The pseudocyst was finally drained by gastroenterology in the last few months. Unclear when. She has been clean and sober for months. With this visit on the , CT scan confirmed pancreatitis again. We then did an MRCP to make sure she did not have a common bile duct stone. That was negative. Pain was escalating as opposed to improving over the and crescendoed on the . Pain had spread to left mid abdomen, left lower quadrant, and suprapubic area. Repeat CT shows serous type fluid. Not enough to do a paracentesis on. Today, the pain has improved. No true intervention on my part. She would like to stop IV Dilaudid and try eating. Plan: Stop hydromorphone, and she wants to go immediately to regular diet. Lipase was 845 on admission. It is 207 today. I will continue the oral oxycodone, ODT Zofran and IV Zofran. I will also stop the maintenance lactated Ringer's. If her pain is controlled by tomorrow morning and she is tolerating her diet, I think she can go home. (3) Hypokalemia: Impression: As well as low magnesium. She has been supplemented the last few days. I will check levels tomorrow. (4) Hyperglycemia: Impression: Her fasting glucose has been 138, 191, 189 and 149. This is without treating. Plan: A1c in the past has been below 6%. If she is consistently above 180, I will start sliding scale insulin. So far she has not required any coverage. Her labs were checked tomorrow before she leaves.
[2025-02-03] MEDS ORDERED: HYDROmorphone 1 MG/ML CARPUJECT IVP PRN (21:04)
[2025-02-04 05:56] LABS: HCT - HEMATOCRIT 32.9 % (37.0-47.0); HGB - HEMOGLOBIN 10.8 g/dL (12.0-16.0); MEAN PLATELET VOLUME 10.2 fL (7.9-10.8); NRBC ABSOLUTE COUNT (AUTO) 0.00 x10^3/uL; NUCLEATED RED BLOOD CELLS AUTO 0.0 /100WBC; PLT - PLATELET COUNT 152 10^3/uL (130-450); RED CELL DISTRIBUTION WIDTH 14.9 % (12.0-15.0)
[2025-02-04 06:15] LABS: ALT ALANINE AMINOTRANSFERASE 6.0 IU/L (10-60); AST ASPARTATE AMINOTRANSFERASE 10.0 IU/L (10-42); BUN - BLOOD UREA NITROGEN 7.0 mg/dL (6-20); CARBON DIOXIDE - CO2 29.0 mmol/L (21-32); CREATININE 0.6 mg/dL (0.6-1.3); GFR - MDRD 112.0 (>89)
--- NOTE | 2025-02-04 09:46 | Discharge Summary ---
"Discharge Summary Admit Date: 01/31/25 Discharge Date: 02/05/25 Discharging Provider: Dr. Gerard Vance Primary Care Provider: ADRIAN Vidales Code Status: Attempt Resuscitation Discharge Facility Name: Home DIAGNOSES Discharge Diagnoses with Status of Each Condition: Acute on chronic pancreatitispatient presented with abdominal pain, nausea, vomiting. Improved with IV fluids, pain control, bowel rest. CT abdomen/pelvis shows peripancreatic edema, with small pseudocyst. MRCP without evidence of biliary dilatation or choledocholithiasis. Hypokalemiaresolved. Hypomagnesemiaresolved. Chronic alcohol usecurrently in remission. HPI History of Present Illness: Patient is a 39-year-old female with a history of chronic pancreatitis, chronic alcohol use who presents due to abdominal pain. She describes it as sharp, epigastric with radiation to the back. She has associated nausea and vomiting. She states she has not been able to keep anything down. It was all triggered by her eating pizza last night. She has a former history of alcohol use, but she states that she has been sober in about a month. She has been taking her pancreatic enzymes daily. She has had no abdominal surgeries before. She denies any fevers or chills. She is also having diarrhea, which she states is a chronic issue for her. In the ER, she was vitally stableblood pressure was 114/74, heart rate was 112, respiratory rate was 18, and she was saturating 90% on room air. She was afebrile. Lab work was reviewedher white count was within normal limits. She does have a macrocytosis. Her potassium was low at 2.6, and her magnesium was low at 1.4. Her AST, ALT, alkaline phosphatase, as well as bilirubin were within normal limits. Her lipase was 845. An abdominal ultrasound showed a common bile duct dilatation measuring at 6.9 mm, choledocholithiasis was not excluded. Free fluid was seen adjacent to the gallbladder. test is pending; if it is negative, we will order MRCP for further characterization. If MRCP shows any gallstones, there is concern for gallstone pancreatitis, will consult general surgery. CONSULTS | PROCEDURES Procedures: CT abdomen/pelvis, CT abdomen/pelvis, MRCP HOSPITAL COURSE Hospital Course: Patient is a 39-year-old female with a history of chronic pancreatitis, former alcohol use currently in remission who presented due to abdominal pain. She was found to have acute pancreatitis. Initially, there was some concerns for biliary dilatation. MRCP was completed, which ruled this out. She was started on IV fluids, medications, bowel rest, with improvement in hers symptoms. Her symptoms worsened a few days into admission and this CAT scan was repeated which showed peripancreatic edema, as well as some mild to moderate ascites. Her symptoms improved. She was advised to follow-up closely with her GI doctor, as well as her primary care provider. She was advised to continue staying for alcohol use. She was discharged home in stable condition. ALLERGIES Allergies Allergy/AdvReac Type Severity Reaction Status Date / Time No Known Drug Allergies Allergy Verified 01/31/25 11:17 MEDICATIONS Ambulatory Orders Medication Instructions Recorded Confirmed [id number] 1 cap PO TIDWM #90 caps 08/1501/31/25 5,000-17,000-24,000 unit capsule, delayed rel (Zenpep) prochlorperazine maleate 5 mg 5 mg PO BID PRN nausea a nd 02/05/25 tablet (Compazine) vomiting #14 tabs PHYSICAL EXAM AT DISCHARGE Vital Signs: Vital Signs x48h Temp Pulse Pulse Resp BP Pulse Ox 02/05/25 11:23 98.4 F 118 H 18 146/106 H 94 02/05/25 08:57 98.6 F 100 18 149/106 H 95 02/05/25 05:34 98.1 F 91 20 132/91 H 96 General Appearance: positive No acute distress, Alert Eyes Bilateral: positive PERRL and EOMI ENT: positive No signs of dehydration Neck: positive Nml inspection and Thyroid nml; negative Stiff neck or Carotid bruit Respiratory: positive Chest non-tender, No respiratory distress and Breath sounds nml Cardiovascular: positive Regular rate & rhythm, No murmur and No gallop Abdomen: positive No organomegaly, Nml bowel sounds and Tenderness (Still the same epigastrium, left upper quadrant, and over the bladder. But much less than the last couple of days. No pain increased with rebound) Skin: positive Warm and Dry Extremities: positive Non-tender, Full ROM and Nml appearance Neurologic/Psychiatric: positive Oriented x3, CN's nml (2-12) and Motor nml LABS 02/05/25 06:39 02/05/25 06:39 FOLLOW UP Follow Up: Follow up with PCP. Follow up with GI. TIME SPENT Time Spent in Discharge (Minutes): 35 Discharge Plan Discharge Patient Disposition: 01 Home, Self Care Prescriptions: New prochlorperazine maleate [Compazine] 5 mg tablet 5 mg PO BID PRN (Reason: nausea and vomiting) Qty: 14 0RF Continued Zenpep 1 CAP capsule,delayed release(DR/EC) 1 cap PO TIDWM Qty: 90 3RF Activity Restrictions: Activity as Tolerated Health Concerns: You came in for pancreatitis. I know that you've had experience with this before. We started you on pain medication, fluids, nausea medications. You are starting to feel better. Please continue to maintain a liquid diet until you're feeling better. Please continue to abstain from alcohol. Please follow up with a GI doctor, and your PCP. Thank you for allowing us to take care of you. We are glad you're feeling better. Print Language: [place] Island[place] Patient Instructions: ED Pancreatitis Stand Alone Forms: PCP List Vitals documented within 30 minutes of discharge?: Yes (Yes at 10:45)"
[2025-02-04] MEDS ORDERED: PROCHLORPERAZINE 5 MG TABLET PO PRN (13:03)
--- NOTE | 2025-02-04 14:23 | PROVIDER PROGRESS NOTE ---
Subjective Subjective Subjective: This morning, patient was doing better. She was tolerating her breakfast well. By the evening, she is now complaining of 10 out of 10 pain. This is in the epigastric region with radiation to the back. She states that the oral pain medications are not helping her. She states that the pain started after eating lunch. She was on regular diet. Current Medications Current Medications Current Medications: Current Medications Generic Name Dose Route Start Last Admin Trade Name Freq PRN Reason Stop Dose Admin Acetaminophen 650 mg 01/31/25 14:48 02/04/25 10:49 Acetaminophen 325 Mg Tablet PO 650 mg Q4HR PRN Administration Pain 1 to 4, or Fever Lipase/Protease/Amylase 1 cap 01/31/25 17:00 02/04/25 11:48 Lipase/Protease/Amylase Capsule PO 1 cap TIDWM LUCY Administration Calcium Carbonate/Glycine 500 mg 02/01/25 07:27 Calcium Carbonate Chew 500 Mg Tablet PO TID PRN INDIGESTION Cyclobenzaprine HCl 10 mg 02/01/25 17:10 02/04/25 08:04 Cyclobenzaprine 10 Mg Tablet PO 10 mg TID PRN Administration Spasms Docusate Sodium 250 - 500 mg 02/03/25 09:00 02/04/25 09:05 Docusate Sodium 250 Mg Capsule PO 250 mg DAILY LUCY Administration Enoxaparin Sodium 40 mg 02/01/25 09:00 02/04/25 09:05 Enoxaparin 40 Mg/0.4 Ml Syringe SUBQ 40 mg DAILY LUCY Administration Nicotine 1 patch 02/01/25 09:00 02/04/25 09:05 Nicotine 14 Mg Patch TOP 1 patch DAILY LUCY Administration Ondansetron HCl 4 mg 02/04/25 13:03 Ondansetron Odt 4 Mg Tablet TL Q4HR PRN Nausea / Vomiting Oxycodone HCl 5 mg 01/31/25 14:48 02/04/25 10:49 Oxycodone 5 Mg Tablet PO 5 mg Q4HR PRN Administration Pain 5 to 7 Pantoprazole Sodium 40 mg 02/01/25 08:00 02/04/25 06:43 Pantoprazole 40 Mg Vial IVP 40 mg QDAC LUCY Administration Prochlorperazine Maleate 5 mg 02/04/25 13:03 Prochlorperazine 5 Mg Tablet PO Q6HR PRN Nausea / Vomiting Sodium Chloride 10 ml 01/31/25 14:48 02/04/25 06:12 Sodium Chloride Flush 0.9% 10 Ml Syringe IVP 10 ml PRN PRN Administration NEEDED PER PROVIDER ORDERS Sodium Chloride 10 ml 01/31/25 17:00 02/04/25 10:49 Sodium Chloride Flush 0.9% 10 Ml Syringe IVP 10 ml 0100,0900,1700 LUCY Administration Objective Vital Signs/Intake & Output Reviewed Vital Signs: Yes Vital Signs: Vital Signs x48h Temp Pulse Resp BP Pulse Ox 02/04/25 12:11 98.1 F 99 16 130/91 H 94 02/04/25 08:36 97.9 F 97 16 114/84 96 Intake & Output: Intake & Output 02/01/25 02/02/25 02/03/25 02/04/25 23:59 23:59 23:59 23:59 Intake Total 3092 / 3092 2562 / 2562 3631 / 3631 490 / 490 Output Total 125 / 125 350 / 350 1730 / 1730 650 / 650 Balance 2967 / 2967 2212 / 2212 1901 / 1901 -160 / -160 Objective General Appearance: positive No acute distress, Alert and Other (When she is in a lot of pain she is very tearful and almost inconsolable) Eyes Bilateral: positive PERRL and EOMI ENT: positive No signs of dehydration Neck: positive Nml inspection and Thyroid nml; negative Stiff neck or Carotid bruit Respiratory: positive Chest non-tender, No respiratory distress and Breath sounds nml Cardiovascular: positive Regular rate & rhythm, No murmur and No gallop Abdomen: positive No organomegaly, Nml bowel sounds and Tenderness (Still the same epigastrium, left upper quadrant, and over the bladder. But much less than the last couple of days. No pain increased with rebound) Skin: positive Warm and Dry Extremities: positive Non-tender, Full ROM and Nml appearance Neurologic/Psychiatric: positive Oriented x3, CN's nml (2-12) and Motor nml Lab Results 02/04/25 04:59 02/04/25 04:59 Other Labs: Lab Results x24hrs 02/04/25 Range/Units 04:59 WBC 5.5 (4.8-10.8) x10^3/uL RBC 3.21 L (4.20-5.40) 10^6/uL Hgb 10.8 L (12.0-16.0) g/dL Hct 32.9 L (37.0-47.0) % MCV 102.5 H (81.0-99.0) fL MCH 33.6 H (27.0-31.0) pg MCHC 32.8 (32.0-36.0) g/dL RDW 14.9 (12.0-15.0) % Plt Count 152 (130-450) 10^3/uL MPV 10.2 (7.9-10.8) fL Neut # (Auto) 3.6 (1.5-6.6) 10^3/uL Lymph # (Auto) 1.0 L (1.5-3.5) 10^3/uL Mobile # (Auto) 0.8 (0.0-1.0) 10^3/uL Eos # (Auto) 0.1 (0.0-0.7) 10^3/uL Baso # (Auto) 0.0 (0.0-0.1) 10^3/uL Absolute Nucleated RBC 0.00 x10^3/uL Nucleated RBC % 0.0 /100WBC Sodium 133 L (135-145) mmol/L Potassium 3.4 L (3.5-4.5) mmol/L Chloride 99 L (101-111) mmol/L Carbon Dioxide 29 (21-32) mmol/L Anion Gap 5.0 L (6-13) BUN 7 (6-20) mg/dL Creatinine 0.6 (0.6-1.3) mg/dL Estimated GFR (MDRD) 112 (>89) Glucose 140 H (74-104) mg/dL Calcium 8.2 L (8.5-10.3) mg/dL Total Bilirubin 1.0 (0.2-1.0) mg/dL AST 10 (10-42) IU/L ALT 6 L (10-60) IU/L Alkaline Phosphatase 136 H (42-121) IU/L Total Protein 5.3 L (6.4-8.9) g/dL Albumin 2.8 L (3.2-5.5) g/dL Globulin 2.5 (2.1-4.2) g/dL Albumin/Globulin Ratio 1.1 (1.0-2.2) Lipase 39 (11-82) U/L Assessment/Plan Problem List (1) Acute on chronic pancreatitis: Impression: She presented with pain in the upper abdominal area that radiated to the back. Found to have pancreatitis. Unfortunatelu this female has had pancreatitis with a pseudocyst in the past. The pseudocyst was big enough that it pressed up against her duodenum and stomach and she had a functional obstruction. This in turn resulted in multiple admissions for nausea and vomiting. The pseudocyst was finally drained by gastroenterology in the last few months. Unclear when. She has been clean and sober for months. With this visit on the , CT scan confirmed pancreatitis again. We then did an MRCP to make sure she did not have a common bile duct stone. That was negative. Repeat CT shows serous type fluid. Not enough to do a paracentesis. Pain improved, and then got worse. Have ordered IM Dilaudid 1 time. Will likely need to reinsert IV. Continue oxycodone for moderate pain, Tylenol for mild pain. IV fluids stopped. She was on a regular diet, we will de-escalate to full liquids again. (2) Hypokalemia: Impression: As well as low magnesium. She has been supplemented the last few days. (3) Hyperglycemia: Impression: Her fasting glucose has been 138, 191, 189 and 149. This is without treating. A1c in the past has been below 6%. If she is consistently above 180, I will start sliding scale insulin.
[2025-02-04] MEDS: ONDANSETRON ODT 4 MG TABLET TL PRN (15:36)
[2025-02-04] MEDS: HYDROmorphone 0.5 MG/0.5 ML SYRINGE IVP PRN (19:09)
[2025-02-04] MEDS: HYDROmorphone 0.5 MG/0.5 ML SYRINGE IM STA (19:12)
--- NOTE | 2025-02-04 19:32 | ANESTHESIA PROCEDURE NOTE ---
Vitals Height and Weight: Height 5 ft 7 in Body Mass Index 28.1 Vital Signs: Temp Pulse Resp BP Pulse Ox 37.3 C 109 H 16 126/90 95 02/04/25 17:00 02/04/25 17:00 02/04/25 17:00 02/04/25 17:00 02/04/25 17:00 Allergies Allergies: Allergies No Known Drug Allergies Allergy (Verified 01/31/25 11:17) Procedure Notes Procedure Notes: #20 G IV started to Right AC under Ultrasound guidance.
[2025-02-05] MEDS: HYDROmorphone 0.5 MG/0.5 ML SYRINGE IVP PRN (01:09)
[2025-02-05] MEDS: HYDROmorphone 0.5 MG/0.5 ML SYRINGE IVP ONE (04:34)
[2025-02-05 06:55] LABS: HCT - HEMATOCRIT 31.1 % (37.0-47.0); HGB - HEMOGLOBIN 10.3 g/dL (12.0-16.0); MEAN PLATELET VOLUME 9.4 fL (7.9-10.8); NRBC ABSOLUTE COUNT (AUTO) 0.00 x10^3/uL; NUCLEATED RED BLOOD CELLS AUTO 0.0 /100WBC; PLT - PLATELET COUNT 198 10^3/uL (130-450); RED CELL DISTRIBUTION WIDTH 14.8 % (12.0-15.0)
[2025-02-05 07:10] LABS: BUN - BLOOD UREA NITROGEN 4.0 mg/dL (6-20); CARBON DIOXIDE - CO2 29.0 mmol/L (21-32); CREATININE 0.6 mg/dL (0.6-1.3); GFR - MDRD 112.0 (>89)
[2025-02-05] MEDS: POTASSIUM CHLORIDE 20 MEQ TABLET PO ONE (09:16)
[2025-02-05] MEDS: HYDROmorphone 2 MG/ML VIAL IVP ONE (09:40)
[2025-02-05 11:25] VITALS: BP 146/106; TEMP 98.4; O2SAT 94
== END 2025-02-05 11:15 | disposition home or self-care (01) | DRG 439 ==
LOC: ED 10:56 → MS2 14:03
PROVIDERS: ADMIT Internal Medicine; ATTEND Internal Medicine
DX: Z87.891 Personal history of nicotine dependence; F12.10 Cannabis abuse, uncomplicated; K86.3 Pseudocyst of pancreas; D75.89 Other specified diseases of blood and blood-forming organs; Z32.02 Encounter for pregnancy test, result negative; F10.11 Alcohol abuse, in remission; K85.90 Acute pancreatitis without necrosis or infection, unspecified; K86.1 Other chronic pancreatitis; E87.6 Hypokalemia; E83.42 Hypomagnesemia; R39.89 Other symptoms and signs involving the genitourinary system; K52.9 Noninfective gastroenteritis and colitis, unspecified; R73.9 Hyperglycemia, unspecified; I10 Essential (primary) hypertension